=== PATIENT | male | born 1990 | race Caucasian/White ===

== ENCOUNTER 2016-11-14 17:34 | Emergency (ER) | payer OTHER ==
[~2016-11-14] VITALS: Ht 188 cm; Wt 180.0 kg
[~2016-11-14 17:34] MED LIST: DICL50TA PO; ROBA750T PO
[2016-11-14 17:36] VITALS: BP 138/75; PULSE 119; RESP 20; TEMP 98.2; O2SAT 98
[2016-11-14 17:50] VITALS: BP 167/74; PULSE 116; RESP 20; TEMP 99.5; O2SAT 96
[2016-11-14] MEDS ORDERED: IBUP800T23 PO (17:55)
--- NOTE | 2016-11-14 18:11 | PD ---
HPI . Cough Chief Complaint: Respiratory Symptoms Time Seen by Provider: 17:58 Travel History International Travel<30 days: No Contact w/Intl Traveler<30days: No Traveled to known affect area: No History of Present Illness HPI Patient presents with chief complaint of cough. He reports onset of cough 1.5- 2 weeks ago. He states that he is having paroxysmal coughing. The cough is nonproductive. He does, however, report a fever. His cough has not been relieved by Mucinex. He reports no exacerbating factor. He states that he has now developed posttussive emesis. Patient reports that he is a nonsmoker. Patient reports no previous problems with asthma or any other lung disease. PFSH Past Medical History Medical History: Denies Significant Hx Diminished Hearing: No Immunizations Current: Yes Past Surgical History Oral Surgery: Yes (WISDOM TEETH REMOVAL) Social History Alcohol Use: Yes (SOCIAL) Tobacco Use: No Substance Use: No Allergies-Medications (Allergen,Severity, Reaction): Coded Allergies: No Known Allergies (Verified , 11/14/16) Reported Meds & Prescriptions Reported Meds & Active Scripts Active Tussionex Pennkinetic Ext 12 HR Liq (Hydrocodone-Chlorpheniramine 12 HR Liq) 10- 8 Mg/5 Ml Susp 5 Ml PO Q12H PRN Prednisone (48) 10 mg tab Dose Pack (Prednisone) 10 Mg Dspk 10 Mg PO DIRECTED Ventolin Hfa 18 GM Inh (Albuterol Sulfate) 90 Mcg/Act Aer 2 Puff INH Q4H PRN Reported Ibuprofen 800 Mg Tab 800 Mg PO Q8H PRN Review of Systems Except as stated in HPI: all other systems reviewed are Neg General / Constitutional: Positive: Fever, Chills Cardiovascular: Positive: Chest Pain or Discomfort Respiratory: Positive: Cough, Shortness of Breath Gastrointestinal: Positive: Vomiting (posttussive), No: Nausea Physical Exam Narrative GENERAL: Obese man who is able to speak in complete sentences without any respiratory distress. SKIN: Warm and dry. HEAD: Atraumatic. Normocephalic. EYES: Pupils equal and round. Extraocular movements are intact. ENT: No nasal bleeding or discharge. Mucous membranes pink and moist. NECK: Trachea midline. Neck is supple. CARDIOVASCULAR: Regular rate and rhythm. Heart sounds are normal. RESPIRATORY: No accessory muscle use. Lungs sound clear. He does cough with deep inspiration. GASTROINTESTINAL: Abdomen soft, non-tender, nondistended. MUSCULOSKELETAL: No obvious deformities. No edema. NEUROLOGICAL: Awake and alert. No obvious cranial nerve deficits. Motor grossly within normal limits. Normal speech. PSYCHIATRIC: Appropriate mood and affect; insight and judgment normal. Data Data Last Documented VS Vital Signs Date Time Temp Pulse Resp B/P Pulse Ox O2 Delivery O2 Flow Rate FiO2 11/14/16 17:50 99.5 116 20 167/74 96 Room Air Orders Basic Metabolic Panel (Bmp) (11/14/16 18:04) Complete Blood Count With Diff (11/14/16 18:04) Chest, Pa & Lat (11/14/16 18:04) Sodium Chloride 0.9% Flush (Ns Flush) (11/14/16 18:15) Albuterol-Ipratropium Neb (Duoneb Neb) (11/14/16 18:15) Guaifen-Cod 200-20 Mg/10ml Liq (Robituss (11/14/16 18:15) MDM Medical Decision Making Medical Screen Exam Complete: Yes Emergency Medical Condition: Yes Differential Diagnosis Differential diagnosis includes but is not limited to viral respiratory illness , bronchitis, pneumonia, allergies, CHF, asthma/COPD. Narrative Course Patient presents for the evaluation of cough. He is having paroxysmal of coughing. I will treat him for possible bronchospasm with stacked nebs. I have ordered a chest x-ray. I have also ordered Robitussin-AC. Chest x-ray has been independently viewed by me. I do not see an infiltrate. This patient's care is being turned over to Dr. Austin pending his workup. I do anticipate discharge. Diagnosis Primary Impression: Cough Med/Other Pt SpecificInfo: Prescription(s) given Scripts Hydrocodone-Chlorpheniramine 12 HR Liq (Tussionex Pennkinetic Ext 12 HR Liq)10- 8 Mg/5 Ml Susp5 Ml PO Q12H PRN (COUGH AND/OR COLD SYMPTOMS) #60 ML Ref 0 Prov:Ana Barahona MD 11/14/16 Prednisone (48) 10 mg tab Dose Pack 10 Mg Dspk10 Mg PO DIRECTED #1 DSPK Ref 0 Prov:Ana Barahona MD 11/14/16 Albuterol 18 GM Inh (Ventolin Hfa 18 GM Inh)90 Mcg/Act Aer2 Puff INH Q4H PRN ( cough) #1 INHALER Ref 0 Prov:Ana Barahona MD 11/14/16 Condition: Stable Ana Barahona MD Nov 14, 2016 18:10
[2016-11-14] MEDS ORDERED: SODIUM CHLORIDE 0.9% FLUSH 10 ML FLUSH IVF PRN (18:15)
[2016-11-14] MEDS ORDERED: guaiFENesin/CODEINE SYRUP 200 MG/20 MG/10 ML CUP PO PRN (18:15)
[2016-11-14] MEDS ORDERED: TUSSSUS2 PO (18:31)
[2016-11-14] MEDS ORDERED: VENTAER INH (18:31)
[2016-11-14] MEDS ORDERED: PRED10PA2 PO (18:31)
[2016-11-14 18:41] LABS: MEAN CELL VOLUME 87.5 FL (80.0-100.0); MEAN CORPUSCULAR HEMOGLOBIN 30.1 PG (27.0-34.0); MEAN CORPUSCULAR HGB CONC 34.4 % (32.0-36.0); PLATELET COUNT 183 TH/MM3 (150-450); RED BLOOD COUNT 3.54 MIL/MM3 (4.50-5.90); RED CELL DISTRIBUTION WIDTH 21.2 % (11.6-17.2)
--- NOTE | 2016-11-14 18:59 | RADRPT ---
EXAM DATE/TIME: 11/14/2016 18:25 [facility] COMPARISON: No previous studies available for comparison. INDICATIONS : Chest pain, wheezing, fever, coughing, and short of breath. MEDICAL HISTORY : None. SURGICAL HISTORY : None. ENCOUNTER: Initial ACUITY: 1 week PAIN SCORE: 8/10 LOCATION: Bilateral chest FINDINGS: PA and lateral views of the chest demonstrate the lungs to be symmetrically aerated without evidence of mass, infiltrate or effusion. The cardiomediastinal contours are unremarkable. Osseous structure s are intact. CONCLUSION: No acute disease. There is no evidence of pneumonia. Jose Nicholson MD on November 14, 2016 at 18:57 Board Certified Radiologist. This report was verified electronically.
[2016-11-14 19:02] LABS: BICARBONATE 26.5 MEQ/L (21.0-32.0); POTASSIUM 3.6 MEQ/L (3.5-5.1)
[2016-11-14 19:04] LABS: HEMO FLAGS AUTO DIFF
[2016-11-14] MEDS: RESP: ALBUTEROL 2.5 MG/IPRATROPIUM 0.5 MG NEB (SCH) INH (19:07)
--- NOTE | 2016-11-14 19:14 | PD ---
Physical Exam Date Seen by Provider: Nov 14, 2016 Narrative GENERAL: SKIN: Warm and dry. HEAD: Atraumatic. Normocephalic. EYES: Pupils equal and round. No scleral icterus. No injection or drainage. ENT: No nasal bleeding or discharge. Mucous membranes pink and moist. NECK: Trachea midline. No JVD. CARDIOVASCULAR: Regular rate and rhythm. RESPIRATORY: No accessory muscle use. slight natasha scattered wheezes without major restriction of tv, GASTROINTESTINAL: Abdomen soft, non-tender, nondistended. Hepatic and splenic margins not palpable. MUSCULOSKELETAL: Extremities without clubbing, cyanosis, or edema. No obvious deformities. NEUROLOGICAL: Awake and alert. No obvious cranial nerve deficits. Motor grossly within normal limits. Five out of 5 muscle strength in the arms and legs. Normal speech. PSYCHIATRIC: Appropriate mood and affect; insight and judgment normal. Data Data Last Documented VS Vital Signs Date Time Temp Pulse Resp B/P Pulse Ox O2 Delivery O2 Flow Rate FiO2 11/14/16 19:20 107 20 141/72 97 Room Air 11/14/16 17:50 99.5 Orders Basic Metabolic Panel (Bmp) (11/14/16 18:04) Complete Blood Count With Diff (11/14/16 18:04) Chest, Pa & Lat (11/14/16 18:04) Sodium Chloride 0.9% Flush (Ns Flush) (11/14/16 18:15) Albuterol-Ipratropium Neb (Duoneb Neb) (11/14/16 18:15) Guaifen-Cod 200-20 Mg/10ml Liq (Robituss (11/14/16 18:15) Labs Laboratory Tests Test 11/14/16 18:20 White Blood Count 5.0 TH/MM3 Red Blood Count 3.54 MIL/MM3 Hemoglobin 10.7 GM/DL Hematocrit 31.0 % Mean Corpuscular Volume 87.5 FL Mean Corpuscular Hemoglobin 30.1 PG Mean Corpuscular Hemoglobin 34.4 % Concent Red Cell Distribution Width 21.2 % Platelet Count 183 TH/MM3 Mean Platelet Volume 7.3 FL Neutrophils (%) (Auto) % Lymphocytes (%) (Auto) % Monocytes (%) (Auto) % Eosinophils (%) (Auto) % Basophils (%) (Auto) % Neutrophils # (Auto) TH/MM3 Lymphocytes # (Auto) TH/MM3 Monocytes # (Auto) TH/MM3 Eosinophils # (Auto) TH/MM3 Basophils # (Auto) TH/MM3 CBC Comment AUTO DIFF Sodium Level 139 MEQ/L Potassium Level 3.6 MEQ/L Chloride Level 105 MEQ/L Carbon Dioxide Level 26.5 MEQ/L Anion Gap 8 MEQ/L Blood Urea Nitrogen 10 MG/DL Creatinine 1.28 MG/DL Estimat Glomerular Filtration 69 ML/MIN Rate Random Glucose 97 MG/DL Calcium Level 8.7 MG/DL [facility] Medical Record Reviewed: Yes Supervised Visit with FAUZIA: No Differential Diagnosis bronchitis vs pna v bronchospasm Narrative Course PATIENT VSS, PULSE OX NL ON RA, CXR SHOWED NO PTX/PNA, LUNG SOUNDS CLEARED AFTER NEBS, PT IS STABLE FOR D/C Diagnosis Primary Impression: Cough Patient Instructions: Bronchospasm (ED), General Instructions Scripts Hydrocodone-Chlorpheniramine 12 HR Liq (Tussionex Pennkinetic Ext 12 HR Liq)10- 8 Mg/5 Ml Susp5 Ml PO Q12H PRN (COUGH AND/OR COLD SYMPTOMS) #60 ML Ref 0 Prov:Ana Barahona MD 11/14/16 Prednisone (48) 10 mg tab Dose Pack 10 Mg Dspk10 Mg PO DIRECTED #1 DSPK Ref 0 Prov:Ana Barahona MD 11/14/16 Albuterol 18 GM Inh (Ventolin Hfa 18 GM Inh)90 Mcg/Act Aer2 Puff INH Q4H PRN ( cough) #1 INHALER Ref 0 Prov:Ana Barahona MD 11/14/16 Disposition: 01 DISCHARGE HOME Condition: Stable Sharad Austin MD Nov 14, 2016 19:14
[2016-11-14 19:20] VITALS: BP 141/72; PULSE 107; RESP 20; O2SAT 97
[2016-11-14 19:49] LABS: BLASTS 9 % (0-0); POLYS (SEG NEUTROPHILS) 5 % (16-70); WBC DIFF SAMPLE 100
[2016-11-14 19:51] LABS: PLATELET ESTIMATE SMEAR NORMAL (NORMAL); PLATELET MORPHOLOGY NORMAL (NORMAL); SCAN/DIFF FINAL DIFF MANUAL
[2016-11-14 19:55] LABS: NEUTROPHIL # MANUAL DIFF 0.3 TH/MM3 (1.8-7.7)
== END 2016-11-14 20:21 | disposition home or self-care (01) ==
LOC: NEPC 17:34
DX: R05 Cough (principal)
CPT/HCPCS: 71020; 80048; 85007; 85027; 94640; 94664; 99284

== ENCOUNTER 2016-12-25 19:27 | Inpatient (IN) | payer OTHER ==
[~2016-12-25] VITALS: Ht 188 cm; Wt 153.0 kg
[~2016-12-25 19:27] MED LIST changes: -DICL50TA PO; +IBUP800T23 PO; +PRED10PA2 PO; -ROBA750T PO; +TUSSSUS2 PO; +VENTAER INH
[2016-12-25 19:31] VITALS: BP_SYST 148; BP_SYST 149; BP_DIAS 65; BP_DIAS 85; PULSE 114; PULSE 121; RESP 22; RESP 36; TEMP 101.7; O2SAT 94; O2SAT 95
[2016-12-25] MEDS ORDERED: SODIUM CHLOR 0.9% 1000 ML INJ 1,000 ML IV ONE ×3 (19:41)
[2016-12-25] MEDS ORDERED: SODIUM CHLOR 0.9% 1000 ML INJ 900 ML IV ONE (19:41)
[2016-12-25] MEDS ORDERED: PROCHLORPERAZINE INJ 10 MG/2 ML VIAL IV PUSH ONE (19:45)
[2016-12-25] MEDS ORDERED: ACETAMINOPHEN 325 MG TAB PO ONE (19:45)
[2016-12-25] MEDS ORDERED: diphenhydrAMINE HCL 50 MG/ML VIAL IV PUSH ONE (19:45)
[2016-12-25 19:51] VITALS: RESP 19; O2SAT 97
[2016-12-25 20:13] LABS: HEMATOCRIT 26.9 % (39.0-51.0); MEAN CELL VOLUME 100.1 FL (80.0-100.0); MEAN CORPUSCULAR HEMOGLOBIN 33.7 PG (27.0-34.0); MEAN CORPUSCULAR HGB CONC 33.7 % (32.0-36.0); PLATELET COUNT 77 TH/MM3 (150-450); RED BLOOD COUNT 2.69 MIL/MM3 (4.50-5.90); RED CELL DISTRIBUTION WIDTH 21.7 % (11.6-17.2)
--- NOTE | 2016-12-25 20:14 | RADRPT ---
EXAM DATE/TIME: 12/25/2016 19:50 [facility] COMPARISON: No previous studies available for comparison. INDICATIONS : Right sided headaches with confusion. RADIATION DOSE: 56.35 CTDIvol (mGy) MEDICAL HISTORY : None SURGICAL HISTORY : None. ENCOUNTER: Initial ACUITY: 1 day PAIN SCALE: 10/10 LOCATION: Right cranial TECHNIQUE: Multiple contiguous axial images were obtained of the head. Using automated exposure control and adj ustment of the mA and/or kV according to patient size, radiation dose was kept as low as reasonably a chievable to obtain optimal diagnostic quality images. DICOM format image data is available electro nically for review and comparison. FINDINGS: CEREBRUM: The ventricles are normal for age. No evidence of midline shift, mass lesion, hemorrhage or acute in farction. No extra-axial fluid collections are seen. POSTERIOR FOSSA: The cerebellum and brainstem are intact. The 4th ventricle is midline. The cerebellopontine angle i s unremarkable. EXTRACRANIAL: Mucous retention cysts are seen of the maxillary air cells. SKULL: The calvaria is intact. No evidence of skull fracture. CONCLUSION: Negative noncontrast head CT. Audie Maria MD on December 25, 2016 at 20:09 Board Certified Radiologist. This report was verified electronically.
--- NOTE | 2016-12-25 20:21 | RADRPT ---
EXAM DATE/TIME: 12/25/2016 20:02 [facility] COMPARISON: CHEST PA & LAT, November 14, 2016, 18:25. INDICATIONS : Patient admitted with altered mental status. Patient complains of confusion today. MEDICAL HISTORY : None. SURGICAL HISTORY : None. ENCOUNTER: Initial ACUITY: 1 day PAIN SCORE: 0/10 LOCATION: chest FINDINGS: A single view of the chest demonstrates the lungs to be symmetrically aerated without evidence of mas s, infiltrate or effusion. The cardiomediastinal contours are unremarkable. Osseous structures are intact. CONCLUSION: No evidence of acute cardiopulmonary disease. Audie Maria MD on December 25, 2016 at 20:20 Board Certified Radiologist. This report was verified electronically.
[2016-12-25 20:23] LABS: HEMO FLAGS AUTO DIFF
--- NOTE | 2016-12-25 20:23 | PD ---
HPI . Headache Chief Complaint: Altered Mental Status Time Seen by Provider: 19:35 Travel History International Travel<30 days: No Contact w/Intl Traveler<30days: No Traveled to known affect area: No History of Present Illness HPI Patient presents with a chief complaint of headache. Onset was earlier today sometime in the morning time. He describes a throbbing, right-sided headache which is associated with some nausea and vomiting. Headache has been unrelieved by Tylenol. Headache is exacerbated by lying down. Pain is rated 10 /10. The patient did not know that he was running a fever. He reports no obvious source for the fever. PFSH Past Medical History Medical History: Denies Significant Hx Diminished Hearing: No Immunizations Current: Yes Tetanus Vaccination: < 5 Years Influenza Vaccination: Yes Past Surgical History Oral Surgery: Yes (WISDOM TEETH REMOVAL) Social History Alcohol Use: Yes (SOCIAL) Tobacco Use: No Substance Use: No Allergies-Medications (Allergen,Severity, Reaction): Coded Allergies: No Known Allergies (Verified , 12/25/16) Reported Meds & Prescriptions Reported Meds & Active Scripts Active Tussionex Pennkinetic Ext 12 HR Liq (Hydrocodone-Chlorpheniramine 12 HR Liq) 10- 8 Mg/5 Ml Susp 5 Ml PO Q12H PRN Prednisone (48) 10 mg tab Dose Pack (Prednisone) 10 Mg Dspk 10 Mg PO DIRECTED Ventolin Hfa 18 GM Inh (Albuterol Sulfate) 90 Mcg/Act Aer 2 Puff INH Q4H PRN Reported Ibuprofen 800 Mg Tab 800 Mg PO Q8H PRN Review of Systems Except as stated in HPI: all other systems reviewed are Neg General / Constitutional: No: Fever, Chills Eyes: No: Blurred Vision HENT: Positive: Headaches, No: Sore Throat, Rhinorrhea, Congestion Respiratory: No: Cough Gastrointestinal: Positive: Nausea, Vomiting, No: Diarrhea, Abdominal Pain Genitourinary: No: Urgency, Frequency, Dysuria Musculoskeletal: Positive: Weakness Neurologic: Positive: Weakness, Headache, Change in Mentation, No: Focal Abnormalities, Incontinence, Seizures Physical Exam Narrative Vital Signs Date Time Temp Pulse Resp B/P Pulse Ox O2 Delivery O2 Flow Rate FiO2 12/25/16 19:51 19 97 Room Air 12/25/16 19:31 101.7 121 36 149/85 94 GENERAL: This patient is sitting on the edge of the bed. He is markedly obese weighing 175 kg. He is pale, febrile and tachycardic. SKIN: Warm and pale HEAD: Atraumatic. Normocephalic. EYES: Pupils equal and round. Extraocular movements are intact. ENT: No nasal bleeding or discharge. Mucous membranes pink and moist. NECK: Trachea midline. Neck is supple. CARDIOVASCULAR: Sinus tachycardia. Regular rhythm. No murmurs heard. RESPIRATORY: No accessory muscle use. Lungs are clear with full air movement throughout. GASTROINTESTINAL: Abdomen soft, non-tender, nondistended. MUSCULOSKELETAL: No obvious deformities. No edema. NEUROLOGICAL: Awake and alert. No obvious cranial nerve deficits. 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 Normal speech. PSYCHIATRIC: Anxious appearing. Data Data Last Documented VS Vital Signs Date Time Temp Pulse Resp B/P Pulse Ox O2 Delivery O2 Flow Rate FiO2 12/25/16 20:30 106 20 139/63 97 Room Air 12/25/16 19:31 101.7 Orders Complete Blood Count With Diff (12/25/16 19:41) Comprehensive Metabolic Panel (12/25/16 19:41) Lactic Acid Sepsis Protocol (12/25/16 19:41) Magnesium (Mg) (12/25/16 19:41) Urinalysis - C+S If Indicated (12/25/16 19:41) Influenzae A/B Antigen (12/25/16 19:41) Blood Culture (12/25/16 19:41) Chest, Single Ap (12/25/16 19:41) Blood Glucose (12/25/16 19:41) Ecg Monitoring (12/25/16 19:41) Iv Access Insert/Monitor (12/25/16 19:41) Cath For Specimen (12/25/16 19:41) Oximetry (12/25/16 19:41) Acetaminophen (Tylenol) (12/25/16 19:45) Ct Brain W/O Iv Contrast(Rout) (12/25/16 19:41) Sodium Chlor 0.9% 1000 Ml Inj (Ns 1000 M (12/25/16 19:41) Sodium Chlor 0.9% 1000 Ml Inj (Ns 1000 M (12/25/16 19:41) Sodium Chlor 0.9% 1000 Ml Inj (Ns 1000 M (12/25/16 19:41) Sodium Chlor 0.9% 1000 Ml Inj (Ns 1000 M (12/25/16 19:41) Prochlorperazine Inj (Compazine Inj) (12/25/16 19:45) Diphenhydramine Inj (Benadryl Inj) (12/25/16 19:45) Cefepime Inj (Maxipime Inj) (12/25/16 21:13) Admit Order (Ed Use Only) (12/25/16 21:40) Labs Laboratory Tests Test 12/25/16 19:47 White Blood Count 10.0 TH/MM3 Red Blood Count 2.69 MIL/MM3 Hemoglobin 9.1 GM/DL Hematocrit 26.9 % Mean Corpuscular Volume 100.1 FL Mean Corpuscular Hemoglobin 33.7 PG Mean Corpuscular Hemoglobin 33.7 % Concent Red Cell Distribution Width 21.7 % Platelet Count 77 TH/MM3 Mean Platelet Volume 7.0 FL Neutrophils (%) (Auto) % Lymphocytes (%) (Auto) % Monocytes (%) (Auto) % Eosinophils (%) (Auto) % Basophils (%) (Auto) % Neutrophils # (Auto) TH/MM3 Lymphocytes # (Auto) TH/MM3 Monocytes # (Auto) TH/MM3 Eosinophils # (Auto) TH/MM3 Basophils # (Auto) TH/MM3 CBC Comment AUTO DIFF Differential Total Cells 100 Counted Neutrophils % (Manual) 3 % Band Neutrophils % 1 % Lymphocytes % 48 % Monocytes % 28 % Neutrophils # (Manual) 0.4 TH/MM3 Differential Comment FINAL DIFF MANUAL Blastocytes 20 % Platelet Estimate LOW Platelet Morphology Comment NORMAL Sodium Level 136 MEQ/L Potassium Level 3.5 MEQ/L Chloride Level 103 MEQ/L Carbon Dioxide Level 23.6 MEQ/L Anion Gap 9 MEQ/L Blood Urea Nitrogen 11 MG/DL Creatinine 1.40 MG/DL Estimat Glomerular Filtration 62 ML/MIN Rate Random Glucose 89 MG/DL Lactic Acid Level 1.9 mmol/L Calcium Level 7.9 MG/DL Magnesium Level 2.0 MG/DL Total Bilirubin 1.1 MG/DL Aspartate Amino Transf 14 U/L (AST/SGOT) Alanine Aminotransferase 17 U/L (ALT/SGPT) Alkaline Phosphatase 46 U/L Total Protein 8.4 GM/DL Albumin 3.5 GM/DL [facility] Medical Decision Making Medical Screen Exam Complete: Yes Emergency Medical Condition: Yes Medical Record Reviewed: Yes (patient was last seen here about 6 weeks ago for a cough. He was treated with a steroid taper, albuterol inhaler and Tussionex. He has no chronic underlying medical problems except for obesity.) Differential Diagnosis Differential diagnosis of fever includes but is not limited to viral illness, strep throat, otitis media, pneumonia, sepsis, UTI Narrative Course This patient presents with headache and fever. Onset was this morning. He does not have any meningeal signs. Because of his size, he would be an impossible candidate for blind LP. His spinous processes are not palpable. A septic workup has been initiated. His fever is being treated with Tylenol. His headache is being treated with Compazine and Benadryl. He will be reassessed following diagnostic evaluation. CBC & BMP Diagram 12/25/16 19:47 Previous HGB on 11/14 was 10.7. White count on 11/14 was 5.0 with 0.5% neutrophils , 73% lymphocytes, 13% monocytes and 9 blasts cells. Differential tonight shows 3% neutrophils with an ANC of 400, 48% lymphocytes, 28% monocytes and 20 blasts. UpToDate was queried to confirm my suspicion that blasts are indicative of a white blood cell cancer. This patient will need to be admitted to the hospital for further evaluation. Cefepime has been ordered empirically for treatment of sepsis in a neutropenic patient. Critical Care Narrative Aggregate critical care time was 60 minutes. Time to perform other separately billable procedures was not included in the critical care time. My time did not include minutes spent treating any other patients simultaneously or on activities that did not directly contribute to the patient's treatment. The services I provided to this patient were to treat and/or prevent clinically significant deterioration due to headache and fever, rule out sepsis, rule out meningitis. I provided critical care services requiring my management, as noted below: Chart data review, documentation time, medication orders and management, vital sign assessments/reviewing monitor data, ordering and reviewing lab tests, ordering and interpreting/reviewing x-rays and diagnostic studies, care of the patient and discussion of the patient with the admitting physicians Sepsis Criteria SIRS Criteria (2 or more): Temp > 100.9 or < 96.8, Heart rate over 90, RR > 20 or PaCO2 < 32 Criteria Outcome: Meets SIRS criteria Physician Communication Physician Communication Dr. Field. Heme/onc paged for recommendations. Dr. Santoyo asked for DIC panel, haptoglobin and LDH. He will see in consultation. Diagnosis Primary Impression: SIRS (systemic inflammatory response syndrome) Additional Impressions: Lymphocytosis Neutropenia Qualified Code: D70.9 - Neutropenia, unspecified type Thrombocytopenia Admitting Information Admitting Physician Requests: Admit Condition: Ana Larios MD Dec 25, 2016 20:23
[2016-12-25 20:25] LABS: ANION GAP 9 MEQ/L (5-15); AST (GOT) 14 U/L (15-37); BICARBONATE 23.6 MEQ/L (21.0-32.0); BLOOD UREA NITROGEN 11 MG/DL (7-18); CHLORIDE 103 MEQ/L (98-107); GLOMERULAR FILTRATION RATE 62 ML/MIN (>89); POTASSIUM 3.5 MEQ/L (3.5-5.1); SODIUM (NA) 136 MEQ/L (136-145)
[2016-12-25 20:26] LABS: ALT (GPT) 17 U/L (12-78)
[2016-12-25 20:28] LABS: ALKALINE PHOSPHATASE 46 U/L (45-117); TOTAL BILIRUBIN ADULT 1.1 MG/DL (0.2-1.0)
[2016-12-25 20:30] VITALS: BP 139/63; PULSE 106; RESP 20; O2SAT 97
[2016-12-25 21:00] LABS: BANDS 1 % (0-6); BLASTS 20 % (0-0); POLYS (SEG NEUTROPHILS) 3 % (16-70); WBC DIFF SAMPLE 100
[2016-12-25 21:02] LABS: NEUTROPHIL # MANUAL DIFF 0.4 TH/MM3 (1.8-7.7)
[2016-12-25 21:07] LABS: PLATELET ESTIMATE SMEAR LOW (NORMAL); PLATELET MORPHOLOGY NORMAL (NORMAL); SCAN/DIFF FINAL DIFF MANUAL
[2016-12-25] MEDS ORDERED: CEFEPIME INJ 2,000 MG in SODIUM CHLORIDE 0.9% INJ 100 ML IV STA (21:13)
[2016-12-25 22:01] LABS: BLOOD, URINE NEG (NEG); GLUCOSE,URINE NEG (NEG); KETONE, URINE NEG (NEG); NITRITE,URINE NEG (NEG); PH, URINE 6.5 (5.0-8.5); URINE COLOR LIGHT-YELLOW (YELLW/STRAW)
[2016-12-25 22:06] LABS: COMMENT (UR) CATH-CULT NOT IND; CULTURE IF INDICATED CATH CULTURE NOT IND
[2016-12-25 22:43] VITALS: BP 119/54; PULSE 94; RESP 18; TEMP 99.3; O2SAT 98
[2016-12-25] MEDS: SODIUM CHLOR 0.9% 1000 ML INJ 1,000 ML IV SCH (23:00)
[2016-12-25] MEDS ORDERED: LACTULOSE SYRUP 20 GM/30 ML CUP PO PRN (23:00)
[2016-12-25] MEDS ORDERED: SENNOSIDES 8.6 MG TAB PO PRN (23:00)
[2016-12-25] MEDS ORDERED: SODIUM CHLORIDE 0.9% FLUSH 10 ML FLUSH IV FLUSH PRN (23:00)
[2016-12-25] MEDS ORDERED: MAGNESIUM HYDROXIDE SUSP 30 ML CUP PO PRN (23:00)
[2016-12-25] MEDS ORDERED: BISACODYL 10 MG SUPP RECTAL PRN (23:00)
[2016-12-25] MEDS ORDERED: Vancomycin Consult Pharmacy 1 EA OTHER SCH (23:00)
--- NOTE | 2016-12-25 23:04 | HHI.HP ---
[facility] No Primary Care Physician Admission Diagnosis lymphocytosis, neutropenia, thrombocytopenia, fever Diagnoses: (1) SIRS (systemic inflammatory response syndrome) Diagnosis: Principal (2) GABRIELA (acute kidney injury) Diagnosis: Principal (3) Thrombocytopenia Diagnosis: Principal (4) Lymphocytosis Diagnosis: Principal (5) Anemia Diagnosis: Principal Travel History International Travel<30 Days: No Contact w/Intl Traveler <30 Da: No Traveled to Known Affected Are: No History of Present Illness This is a 26-year-old male with no significant PMH was brought to the ER secondary to episode of AMS. Upon arrival, patient unable to provide any history secondary to confusion, however at the time of my exam, patient is awake , alert and oriented. 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 Shortly afterwards, Theater Education Teacher noted patient to be very confused, not making sense. On arrival, BP 149/85, HR 121, O2 sat 94% on RA, Temp 101.7. WBC 10. Hemoglobin 9.1. Platelets 77. Lymphocytes 48%. Creatinine 1.40, producing 1.28 on 11/14/16. Lactic Acid 1.9. UA negative. CXR with no acute findings. CT Head negative. Patient denies any recent sick contacts, although does report having productive cough for approximately 1 month. Review of Systems Except as stated in HPI: all other systems reviewed are Neg ROS: 14 point review of systems otherwise negative. Past Family Social History Past Medical History PMH: None Past Surgical History PAST SURGICAL HISTORY: [place] Tooth Extraction Allergies: Coded Allergies: No Known Allergies (Verified , 12/25/16) Family History PAST FAMILY HISTORY: Reviewed. No h/o DM or CAD Social History PAST SOCIAL HISTORY: Occasional alcohol. Negative for tobacco or drugs. Physical Exam Vital Signs Vital Signs Date Time Temp Pulse Resp B/P Pulse Ox O2 Delivery O2 Flow Rate FiO2 12/25/16 22:43 94 18 119/54 98 Room Air 12/25/16 20:30 106 20 139/63 97 Room Air 12/25/16 19:51 19 97 Room Air 12/25/16 19:31 101.7 121 36 149/85 94 12/25/16 19:31 101.7 114 22 148/65 95 Room Air Physical Exam PE: GENERAL: Young morbidly obese white male in no acute distress, intermittent cough. HEENT: PERRLA, EOMI. No scleral icterus or conjunctival pallor. No lid lag or facial droop. CARDIOVASCULAR: Regular rate and rhythm. No obvious murmurs to auscultation. No chest tenderness to palpation. RESPIRATORY: No obvious rhonchi or wheezing. Clear to auscultation. Breath sounds equal bilaterally. GASTROINTESTINAL: Abdomen soft, non-tender, nondistended. BS normal. MUSCULOSKELETAL: Extremities without clubbing, cyanosis, or edema. No obvious deformities. NEUROLOGICAL: Awake, alert and oriented x4. No focal neurologic deficits. Moving both upper and lower extremities spontaneously. Laboratory Laboratory Tests Test 12/25/16 12/25/16 19:47 21:45 White Blood Count 10.0 Red Blood Count 2.69 Hemoglobin 9.1 Hematocrit 26.9 Mean Corpuscular Volume 100.1 Mean Corpuscular Hemoglobin 33.7 Mean Corpuscular Hemoglobin 33.7 Concent Red Cell Distribution Width 21.7 Platelet Count 77 Mean Platelet Volume 7.0 Neutrophils (%) (Auto) Lymphocytes (%) (Auto) Monocytes (%) (Auto) Eosinophils (%) (Auto) Basophils (%) (Auto) Neutrophils # (Auto) Lymphocytes # (Auto) Monocytes # (Auto) Eosinophils # (Auto) Basophils # (Auto) CBC Comment AUTO DIFF Differential Total Cells 100 Counted Neutrophils % (Manual) 3 Band Neutrophils % 1 Lymphocytes % 48 Monocytes % 28 Neutrophils # (Manual) 0.4 Differential Comment FINAL DIFF MANUAL Blastocytes 20 Platelet Estimate LOW Platelet Morphology Comment NORMAL Sodium Level 136 Potassium Level 3.5 Chloride Level 103 Carbon Dioxide Level 23.6 Anion Gap 9 Blood Urea Nitrogen 11 Creatinine 1.40 Estimat Glomerular Filtration 62 Rate Random Glucose 89 Lactic Acid Level 1.9 Calcium Level 7.9 Magnesium Level 2.0 Total Bilirubin 1.1 Aspartate Amino Transf 14 (AST/SGOT) Alanine Aminotransferase 17 (ALT/SGPT) Alkaline Phosphatase 46 Total Protein 8.4 Albumin 3.5 Urine Color LIGHT-YELLOW Urine Turbidity CLEAR Urine pH 6.5 Urine Specific [place] 1.006 Urine Protein TRACE Urine Glucose (UA) NEG Urine Ketones NEG Urine Occult Blood NEG Urine Nitrite NEG Urine Bilirubin NEG Urine Urobilinogen LESS THAN 2.0 Urine Leukocyte Esterase NEG Urine RBC LESS THAN 1 Urine WBC 1 Microscopic Urinalysis Comment CATH-CULT NOT IND Date/Time Procedure Status Source Growth 12/25/16 19:56 Aerobic Blood Culture Received Blood Peripheral Pending 12/25/16 19:56 Anaerobic Blood Culture Received Blood Peripheral Pending Result Diagram: 12/25/16194612/25/161946 Assessment and Plan Problem List: (1) SIRS (systemic inflammatory response syndrome) ICD Code: R65.10 Status: Acute (2) GABRIELA (acute kidney injury) ICD Code: N17.9 Status: Acute (3) Thrombocytopenia ICD Code: D69.6 Status: Acute (4) Lymphocytosis ICD Code: D72.820 Status: Acute (5) Anemia ICD Code: D64.9 Status: Acute Assessment and Plan A/P: 1. SIRS: Temp 101.7, HR 121, WBC normal, Lactic Acid normal. Source-unclear. Reports non-productive cough fro approx 1mo, denies fever/chills. Episode of transient AMS upon arrival, currently resolved. S/p Blood Cultures, IV Cefepime. Follow up cultures, continue w/ IV Abx. Concern for TTP in light of AMS, GABRIELA, fever, thrombocytopenia/anemia-Hematology consulted 2. GABRIELA: Creatinine 1.40, previously 1.28 on 11/14/16, U/a negative, IVF for hydration, repeat labs in am. 3. Thrombocytopenia: Platelets 77, previously 183 on 11/14/16, no active bleeding, denies recent travel, viral infection, ?ITP/TTP. Hematology consulted as above. 4. Anemia: Hgb 9.1, previously 10.7 on 11/14/16, 13.6 on 10/29/15. Will monitor. 5. Lymphocytosis: 48% lymphocytes on differential, previously 73% on 11/14/16. Hematology to eval, likely need further testing w/ BM Biopsy. Pt aware of plan. 6. DVT Prophylaxis: SCD/Teds. 7. Social work for d/c planning as needed. 8. Case discussed w/ ER physician at length. Physician Certification 2 Midnight Certification Type: Admission for Inpatient Services Order for Inpatient Services The services are ordered in accordance with Medicare regulations or non- Medicare payer requirements, as applicable. In the case of services not specified as inpatient-only, they are appropriately provided as inpatient services in accordance with the 2-midnight benchmark. Estimated LOS (days): 2 days is the estimated time the patient will need to remain in the hospital, assuming treatment plan goals are met and no additional complications. Post-Hospital Plan: Not yet determined Roseanne Field MD Dec 25, 2016 23:04
[2016-12-25 23:12] LABS: APTT (PATIENT) 27.1 SEC (24.3-30.1); INTERNATIONAL NORMALIZED RATIO 1.1 RATIO
[2016-12-26] VITALS (11 sets, daily range): BP systolic 116–158; BP diastolic 47–79; PULSE 92–115; RESP 18–24; TEMP 96.9–101.2; O2SAT 90–97
[2016-12-26] MEDS ORDERED: VANCOMYCIN INJ 2,500 MG in SODIUM CHLORID 0.9% 500 ML INJ 500 ML IV SCH (01:00)
[2016-12-26] MEDS: ACETAMINOPHEN/HYDROcodone 325 MG/5 MG TAB PO PRN ×2 (01:49→21:22)
[2016-12-26] MEDS: guaiFENesin/DEXTROMETHORPHAN 200 MG/20 MG/10 ML CUP PO PRN ×4 (01:52→18:19)
[2016-12-26] MEDS: BENZONATATE 100 MG CAP PO PRN ×2 (05:34→15:12)
[2016-12-26] MEDS: MORPHINE SULFATE 4 MG/ML INJ IV PRN (06:11)
[2016-12-26] MEDS: ONDANSETRON HCL 4 MG/2 ML VIAL IVP PRN (07:12)
[2016-12-26] MEDS: DOCUSATE SODIUM 50 MG/SENNA 8.6 MG TAB PO SCH ×2 (09:00→20:16)
[2016-12-26] MEDS: SODIUM CHLORIDE 0.9% FLUSH 10 ML FLUSH IV FLUSH SCH ×2 (09:00→20:16)
[2016-12-26] MEDS: ACETAMINOPHEN 325 MG TAB PO PRN (09:18)
[2016-12-26] MEDS: CEFEPIME INJ 1,000 MG in SODIUM CHLORIDE 0.9% INJ 100 ML IV SCH ×2 (09:18→20:16)
[2016-12-26] MEDS: VANCOMYCIN INJ 2,000 MG in SODIUM CHLORID 0.9% 500 ML INJ 500 ML IV SCH (13:22)
--- NOTE | 2016-12-26 15:44 | MB ---
cc: NOHELIA CHARLES DATE OF CONSULTATION 12/26/16 DATE OF 1990 REASON FOR CONSULTATION Patient presents with altered mental status and severe neutropenia. HISTORY OF PRESENT ILLNESS This is a 26-year-old male who has no significant past medical history who was brought to the emergency department after episodes of confusion. In the emergency room basic labs were obtained and the patient was found to have a white blood cell count of 10, hemoglobin of 9.1 with MCV of 100.1 and a platelet count of 77,000. He was severely neutropenic with an ANC of less than 500, on the differential 20% blast cells were reported in the peripheral blood. Serum chemistries showed acute renal failure with a creatinine of 1.4. His lactic acid was 1.9. His total bilirubin was slightly elevated at 1.1. The patient was admitted to the hospital due to concern for underlying leukemia. The patient had a fever of 101.1, blood cultures were drawn and the patient was started on IV vancomycin and cefepime. REVIEW OF SYSTEMS A comprehensive 14-point review of systems was completed which is negative except as described in the HPI. PAST MEDICAL HISTORY None. PAST SURGICAL HISTORY Tooth extraction. MEDICATIONS ON ADMISSION None. ALLERGIES NO KNOWN DRUG ALLERGIES. FAMILY HISTORY No family history of leukemia or lymphomas or any blood disorders. SOCIAL HISTORY Occasionally drinks alcohol. Does not smoke cigarettes. No drug use. PHYSICAL EXAMINATION VITAL SIGNS: Blood pressure is 129/76, pulse is in the 100s, temperature is 101.2, O2 sats are 93% on 1 liter of nasal cannula. GENERAL: Obese young male in no apparent distress. HEENT: Pupils are equal, round, reactive to light. EOMI. No oral thrush. No oral lesions. NECK: Supple. No JVD, no bruits. No lymphadenopathy. CHEST: Clear to auscultation bilaterally. CARDIAC: S1-S2 regular rate and rhythm. ABDOMEN: Soft, nontender, nondistended. Bowel sounds are present. EXTREMITIES: Without any edema, erythema or cyanosis. SKIN: Without any petechiae, lesion or bruises. NEURO: No focal deficits. PSYCHIATRIC: Mood and affect is appropriate. LABORATORY DATA WBC 10, hemoglobin is 9.1, MCV 100.1, platelet count is 77,000. Differential reported neutrophil percentage of 3 with an ___ of 400. There were 20 blast cells in the peripheral blood. Serum chemistries, sodium 136, potassium 3.5, chloride 103, CO2 22.6, BUN 11, creatinine 1.4, GFR 62, lactic acid 1.9, calcium 7.9, magnesium 2, total bilirubin 1.1, AST 14, ALT 17, alk phos 46, LDH 252, total protein 8.4, albumin 85. Coags show PT of 12, INR 1.1, PTT 27.1, fibrinogen 405. IMAGING STUDIES Chest x-ray was reviewed did not show any evidence of acute cardiopulmonary disease. CT of head was also reviewed. This is a noncontrast CT without any abnormalities. ASSESSMENT/PLAN This is a 26-year-old male with no significant past medical history who presents to the emergency department with episodes of confusion and was found to be severely neutropenic with blast cells that were reported on differential. He has been having fever. 1. Febrile neutropenia with blast cells in circulation. This is suspicious for underlying bone marrow disorder such as leukemia. I will review his peripheral smear. I agree with broad-spectrum antibiotics. Blood cultures are pending. This patient will need a bone marrow biopsy, FISH studies, flow cytometry and cytogenetics will be obtained. If this is proven to be leukemia this patient will require induction chemotherapy. 2. Acute thrombocytopenia, possibly related to underlying leukemia, lymphoma or MDS. Check a DIC panel. Check LDH and haptoglobin. Check a direct Chong test. 3. Anemia, obtain anemia studies. Obtain a stool hemoccult. Additionally, will obtain hepatitis and HIV profile. 4. Acute kidney injury likely prerenal, continue IV hydration. Thank you for allowing me to participate in the care of this patient. Further recommendations will be made after initial blood testing and review of the peripheral smear. MD MAJOR Muñiz/KEVIN /2:48 PM /3:25 PM
--- NOTE | 2016-12-26 15:48 | HHI.PR ---
Subjective Remarks Patient says his cough has been very dry, has worsened since onset prior to admission, has posttussive emesis but otherwise has no nausea in between coughing spells. Also reports that his headache has been persistent but somewhat better since admission. Nursing reports that he did not have any further altered mental status episodes since arriving to the floor, did have another fever spike despite broad-spectrum antibiotics. Objective Vital Signs Date Time Temp Pulse Resp B/P Pulse Ox O2 Delivery O2 Flow Rate FiO2 12/26/16 12:00 98.3 105 20 158/79 93 12/26/16 08:30 93 Nasal Cannula 1.00 12/26/16 08:30 93 12/26/16 08:00 101.2 107 20 129/76 90 12/26/16 07:01 20 12/26/16 04:00 98.2 110 22 116/59 97 12/26/16 03:45 19 12/26/16 00:40 94 12/26/16 00:00 96.9 97 23 133/66 96 12/25/16 22:43 99.3 94 18 119/54 98 Room Air 12/25/16 20:30 106 20 139/63 97 Room Air 12/25/16 19:51 19 97 Room Air 12/25/16 19:31 101.7 121 36 149/85 94 12/25/16 19:31 101.7 114 22 148/65 95 Room Air I/O 12/25/16 12/25/16 12/25/16 12/26/16 12/26/16 12/26/16 06:59 14:59 22:59 06:59 14:59 22:59 Intake Total 805 ml 1463 ml Output Total 600 ml 650 ml Balance 205 ml 813 ml Intake Oral 240 ml 720 ml IV Total 565 ml 743 ml Output Urine Total 600 ml 650 ml # Voids 3 # Bowel Movements 0 Result Diagram: 12/25/16194612/25/161946 Imaging Last [address] 12/25/161940 Signed Impressions: Service Date/Time: Sunday, December 25, 2016 19:50 - CONCLUSION: Negative noncontrast head CT. Audie Maria MD Chest X-Ray 12/25/161940 Signed Impressions: Service Date/Time: Sunday, December 25, 2016 20:02 - CONCLUSION: No evidence of acute cardiopulmonary disease. Audie Maria MD Objective Remarks GENERAL: coughing, resting btw coughing. CARDIOVASCULAR: Regular rate and rhythm without murmurs, gallops, or rubs. RESPIRATORY: Breath sounds equal and clear bilaterally. Unlabored breathing GASTROINTESTINAL: Abdomen soft, non-tender, nondistended. MUSCULOSKELETAL: No cyanosis, or edema. A/P Assessment and Plan 1. Neutropenic fever: Blood culture still pending, continuing broad-spectrum antibiotics with vancomycin and cefepime. Given persistent coughing and persistent headache, we'll obtain CT chest with contrast along with lumbar puncture with infectious lab csf workup. IVFs. 2. Pancytopenia - Hematology working up, appreciate recs. 2. GABRIELA: IVF, repeat labs 3. Thrombocytopenia: Platelets 77, previously 183 on 11/14/16, no active bleeding, denies recent travel, viral infection, ?ITP/TTP. Hematology consulted as above. repeat pending 4. Anemia: Hgb 9.1, repeat pending 5. Lymphocytosis: 48% lymphocytes on differential, previously 73% on 11/14/16. repeat workup pending. Hematology to eval, likely need further testing w/ BM Biopsy. Pt aware of plan. 6. DVT Prophylaxis: SCD/Teds. Ean Bañuelos MD Dec 26, 2016 15:48
[2016-12-26] MEDS ORDERED: SODIUM BICARBONATE 8.4% INJ 50 ML ONE (16:54)
--- NOTE | 2016-12-26 17:24 | PD.RAD ---
Post Procedure Progress Note Pre Procedure Diagnosis: (1) Thrombocytopenia (2) Neutropenia (3) Sepsis Post Procedure Diagnosis: (1) Thrombocytopenia (2) Neutropenia (3) Sepsis Procedure Date: Dec 26, 2016 Supervising Radiologist: Nilson Bonner Estimated blood loss: None Anesthesia: Local Plan of Activity Patient to Unit: Nursing Unit Patient Condition: Fair Additional Comments: LP completed single puncture at L3/L4. Opening pressure 12cm/h2o 16cc of clear CSF removed. Samples sent to lab See PACS Report for procedural detail/treatment Nilson Bonner MD Dec 26, 2016 17:24
[2016-12-26] MEDS ORDERED: IOHEXOL 350 MG/ML 10 ML VIAL (for RAD DIAG) IV ONE (17:47)
--- NOTE | 2016-12-26 18:16 | RADRPT ---
EXAM DATE/TIME: 12/26/2016 17:45 [place] COMPARISON: No previous studies available for comparison. INDICATIONS : Persistent cough IV CONTRAST: 71 cc Omnipaque 350 (iohexol) IV RADIATION DOSE: 16.49 CTDIvol (mGy) MEDICAL HISTORY : None SURGICAL HISTORY : None. ENCOUNTER: Initial ACUITY: 1 day PAIN SCALE: 0/10 LOCATION: chest TECHNIQUE: Volumetric scanning of the chest was performed. Using automated exposure control and adjustment of t he mA and/or kV according to patient size, radiation dose was kept as low as reasonably achievable to obtain optimal diagnostic quality images. DICOM format image data is available electronically for review and comparison. Follow-up recommendations for detected pulmonary nodules are based at a minimum on nodule size and pa tient risk factors according to Fleischner Society Guidelines. FINDINGS: Fluffy air space process is present in both lower lobes characteristic of pneumonia. There is no pleural effusion. There are small lymph nodes within the mediastinum benign in appearance the larges t in subcarinal area measures 1.7 cm in size. CONCLUSION: Bibasilar air space process characteristic of pneumonia. Patricia Contreras MD on December 26, 2016 at 18:13 Board Certified Radiologist. This report was verified electronically.
[2016-12-26] MEDS: SODIUM CHLOR 0.9% 1000 ML INJ 1,000 ML IV SCH ×2 (18:23→19:00)
[2016-12-26 19:25] LABS: GROSS BLOOD TUBE #1 TRACE (0); GROSS BLOOD TUBE #2 TRACE (0); SUPERNATE COLOR TUBE #1 CLEAR (CLEAR); SUPERNATE COLOR TUBE #2 CLEAR (CLEAR); SUPERNATE COLOR TUBE #3 CLEAR (CLEAR); SUPERNATE COLOR TUBE #4 CLEAR (CLEAR); VOLUME TUBE # 1 2.9 ML; VOLUME TUBE # 2 3.7 ML; VOLUME TUBE # 4 5.8 ML
[2016-12-26 19:26] LABS: CSF LYMPHOCYTES 26 %; CSF MONOCYTES 74 %; CSF NEUTROPHILS 0 %; WBC TUBE #4 4 /MM3 (0-10)
[2016-12-26] MEDS ORDERED: guaiFENesin/CODEINE SYRUP 200 MG/20 MG/10 ML CUP PO PRN (19:45)
[2016-12-26] MEDS: RESP: ALBUTEROL 2.5 MG/IPRATROPIUM 0.5 MG NEB (SCH) NEB ×2 (20:39→21:32)
[2016-12-26] MEDS: PROMETHAZINE/CODEINE 6.25 MG/10 MG/5 ML CUP PO PRN (21:22)
[2016-12-26 22:37] LABS: MEAN CELL VOLUME 102.1 FL (80.0-100.0); MEAN CORPUSCULAR HEMOGLOBIN 35.4 PG (27.0-34.0); MEAN CORPUSCULAR HGB CONC 34.7 % (32.0-36.0); PLATELET COUNT 68 TH/MM3 (150-450); RED CELL DISTRIBUTION WIDTH 21.1 % (11.6-17.2); WHITE BLOOD COUNT 10.8 TH/MM3 (4.0-11.0)
[2016-12-26 22:42] LABS: HEMO FLAGS AUTO DIFF
[2016-12-26 22:43] LABS: HEMATOCRIT 16.3 % (39.0-51.0)
[2016-12-26 23:04] LABS: BICARBONATE 22.6 MEQ/L (21.0-32.0); POTASSIUM 3.3 MEQ/L (3.5-5.1); TOTAL BILIRUBIN ADULT 1.7 MG/DL (0.2-1.0)
[2016-12-26 23:10] LABS: CALCIUM-PROTEIN CORRECTED 7.1 MG/DL (8.5-10.1)
[2016-12-26] MEDS ORDERED: SODIUM CHLOR 0.9% 250 ML INJ 250 ML IV ONE (23:15)
[2016-12-26] MEDS ORDERED: diphenhydrAMINE HCL 25 MG CAP PO PRN (23:15)
[2016-12-26] MEDS ORDERED: ACETAMINOPHEN 325 MG TAB PO PRN (23:15)
[2016-12-26] MEDS ORDERED: CALCIUM GLUCONATE INJ 1 GM in DEXTROSE 5% IN WATER 100ML INJ 100 ML IV ONE ×2 (23:30)
[2016-12-26 23:33] LABS: BLASTS 24 % (0-0); EOSINOPHILS 1 % (0-4); NEUTROPHIL # MANUAL DIFF 0.1 TH/MM3 (1.8-7.7); POLYS (SEG NEUTROPHILS) 1 % (16-70); WBC DIFF SAMPLE 100
[2016-12-26 23:35] LABS: PLATELET ESTIMATE SMEAR LOW (NORMAL); PLATELET MORPHOLOGY NORMAL (NORMAL); SCAN/DIFF FINAL DIFF MANUAL
[2016-12-27] VITALS (15 sets, daily range): BP systolic 102–144; BP diastolic 50–67; PULSE 100–117; RESP 16–24; TEMP 96.9–99.7; O2SAT 81–95
[2016-12-27] MEDS: PROMETHAZINE/CODEINE 6.25 MG/10 MG/5 ML CUP PO PRN ×4 (01:54→17:25)
[2016-12-27] MEDS: ACETAMINOPHEN/HYDROcodone 325 MG/5 MG TAB PO PRN ×3 (01:54→12:05)
[2016-12-27] MEDS: VANCOMYCIN INJ 2,000 MG in SODIUM CHLORID 0.9% 500 ML INJ 500 ML IV SCH ×2 (01:56→17:16)
[2016-12-27 03:58] LABS: INTERNATIONAL NORMALIZED RATIO 1.1 RATIO; PROTHROMBIN TIME - PATIENT 12.7 SEC (9.8-11.6)
[2016-12-27] MEDS: ACETAMINOPHEN 325 MG TAB PO PRN (04:46)
[2016-12-27] MEDS: diphenhydrAMINE HCL 25 MG CAP PO PRN (04:46)
[2016-12-27] MEDS: RESP: ALBUTEROL 2.5 MG/IPRATROPIUM 0.5 MG NEB (SCH) NEB ×3 (08:36→21:06)
[2016-12-27] MEDS: SODIUM CHLORIDE 0.9% FLUSH 10 ML FLUSH IV FLUSH SCH ×2 (08:40→23:16)
[2016-12-27] MEDS: DOCUSATE SODIUM 50 MG/SENNA 8.6 MG TAB PO SCH ×2 (08:40→20:15)
[2016-12-27] MEDS: CEFEPIME INJ 1,000 MG in SODIUM CHLORIDE 0.9% INJ 100 ML IV SCH ×2 (09:55→23:15)
[2016-12-27] MEDS ORDERED: PHARMACY ORDERED LAB ONE (12:45)
--- NOTE | 2016-12-27 13:53 | PD.ONC.PN ---
Subjective Subjective Remarks Tmax 100.2 overnight. Patient complaining of body aches. Remains short of breath with movement, but states he feels comfortable at rest. Very anxious. Objective Data Date Time Temp Pulse Resp B/P (MAP) Pulse Ox O2 Delivery O2 Flow Rate FiO2 12/27/16 08:36 93 Nasal Cannula 6.00 12/27/16 07:31 99.5 110 24 128/59 (82) 90 12/27/16 06:00 22 12/27/16 04:00 98.1 117 23 108/53 (71) 91 12/27/16 03:02 20 12/27/16 00:00 99.7 114 23 102/52 (69) 93 12/26/16 21:34 92 Nasal Cannula 5.00 12/26/16 21:00 114 12/26/16 20:00 98.7 113 24 133/60 (84) 91 12/26/16 18:30 100.2 115 18 138/47 (77) 92 12/26/16 16:00 98.4 92 20 132/77 (95) 96 12/27/16 12/27/16 12/27/16 07:00 15:00 23:00 Intake Total 2534 ml Balance 2534 ml Result Diagram: 12/26/16213312/26/162133 Laboratory Results Laboratory Tests Test 12/26/16 17:10 12/26/16 21:34 12/27/16 03:05 12/27/16 12:45 CSF Volume (Tube 1) 2.9 ML CSF Supernatant Color (tube 1) CLEAR CSF Gross Blood (Tube 1) TRACE CSF Volume (Tube 2) 3.7 ML CSF Supernatant Color (tube 2) CLEAR CSF Gross Blood (Tube 2) TRACE CSF Volume (Tube 3) 3.0 ML CSF Supernatant Color (tube 3) CLEAR CSF Volume (Tube 4) 5.8 ML CSF Supernatant Color (tube 4) CLEAR CSF WBC (Tube 4) 4 /MM3 CSF RBC (Tube 4) 7 /MM3 CSF Neutrophils 0 % CSF Lymphocytes 26 % CSF Monocytes 74 % CSF Glucose 53 MG/DL CSF Total Protein 27.6 MG/DL White Blood Count 10.8 TH/MM3 Red Blood Count 1.60 MIL/MM3 Hemoglobin 5.7 GM/DL Hematocrit 16.3 % Mean Corpuscular Volume 102.1 FL Mean Corpuscular Hemoglobin 35.4 PG Mean Corpuscular Hemoglobin Concent 34.7 % Red Cell Distribution Width 21.1 % Platelet Count 68 TH/MM3 Mean Platelet Volume 7.4 FL Neutrophils (%) (Auto) % Lymphocytes (%) (Auto) % Monocytes (%) (Auto) % Eosinophils (%) (Auto) % Basophils (%) (Auto) % Neutrophils # (Auto) TH/MM3 Lymphocytes # (Auto) TH/MM3 Monocytes # (Auto) TH/MM3 Eosinophils # (Auto) TH/MM3 Basophils # (Auto) TH/MM3 CBC Comment AUTO DIFF Differential Total Cells Counted 100 Neutrophils % (Manual) 1 % Lymphocytes % 37 % Monocytes % 37 % Eosinophils % 1 % Neutrophils # (Manual) 0.1 TH/MM3 Differential Comment FINAL DIFF MANUAL Atypical Lymphocytes % Blastocytes 24 % Platelet Estimate LOW Platelet Morphology Comment NORMAL Blood Smear Pathologist Review Blood Urea Nitrogen 7 MG/DL Creatinine 1.18 MG/DL Random Glucose 84 MG/DL Total Protein 7.1 GM/DL Albumin 2.9 GM/DL Calcium Level 7.1 MG/DL Alkaline Phosphatase 40 U/L Aspartate Amino Transf (AST/SGOT) 12 U/L Alanine Aminotransferase (ALT/SGPT) 13 U/L Total Bilirubin 1.7 MG/DL Sodium Level 138 MEQ/L Potassium Level 3.3 MEQ/L Chloride Level 106 MEQ/L Carbon Dioxide Level 22.6 MEQ/L Anion Gap 9 MEQ/L Estimat Glomerular Filtration Rate 76 ML/MIN Protein Corrected Calcium 7.1 MG/DL Prothrombin Time 12.7 SEC Prothromb Time International Ratio 1.1 RATIO Fibrinogen 425 mg/dL Culture Results Microbiology Date/Time Source Procedure Growth Status 12/25/16 19:56 Blood Peripheral Aerobic Blood Culture - Preliminary NO GROWTH IN 2 DAYS Resulted 12/25/16 19:56 Blood Peripheral Anaerobic Blood Culture - Preliminary NO GROWTH IN 2 DAYS Resulted 12/25/16 19:47 Blood Peripheral Aerobic Blood Culture - Preliminary NO GROWTH IN 2 DAYS Resulted 12/25/16 19:47 Blood Peripheral Anaerobic Blood Culture - Preliminary NO GROWTH IN 2 DAYS Resulted 12/26/16 17:10 Cerebral Spinal Fluid Lumbar Puncture Acid Fast Stain Pending Received 12/26/16 17:10 Cerebral Spinal Fluid Lumbar Puncture Mycobacterial Culture Pending Received 12/26/16 17:10 Cerebral Spinal Fluid Lumbar Puncture Fungal Smear Pending Received 12/26/16 17:10 Cerebral Spinal Fluid Lumbar Puncture Fungal Culture Pending Received 12/26/16 17:10 Cerebral Spinal Fluid Lumbar Puncture Gram Stain - Final Resulted 12/26/16 17:10 Cerebral Spinal Fluid Lumbar Puncture CSF Culture - Preliminary NO GROWTH IN 24 HOURS. Resulted 12/25/16 23:20 Nasal Washing Influenza Types A,B Antigen (SUNDAR) - Final NEGATIVE FOR FLU A AND B ANTIGEN.... Complete Administered Medications Medications (Trade) Dose Ordered Sig/Emma Route PRN Reason Start Time Stop Time Status Last Admin Dose Admin Cefepime HCl 1000 mg/Sodium Chloride 100 ml @ 200 mls/hr Q12H IV 12/26/16 09:00 12/26/16 20:16 Sodium Chloride 1,000 ml @ 100 mls/hr Q10H IV 12/25/16 23:00 12/26/16 19:00 Ondansetron HCl (Zofran Inj) 4 mg Q6H PRN IVP NAUSEA OR VOMITING 12/25/16 23:00 12/26/16 07:12 Acetaminophen (Tylenol) 650 mg Q6H PRN PO FEVER/PAIN SCALE 1 TO 2 12/25/16 23:00 12/26/16 09:18 Acetaminophen/ Hydrocodone Bitart (Burnham 5-325 Mg) 1 tab Q4H PRN PO PAIN SCALE 3 TO 5 12/25/16 23:00 12/27/16 06:46 Morphine Sulfate (Morphine Inj) 2 mg Q3H PRN IV Pain 6-10 12/25/16 23:00 12/26/16 06:11 Benzonatate (Tessalon) 100 mg Q4H PRN PO COUGH 12/26/16 05:15 12/26/16 15:12 Vancomycin HCl 2000 mg/Sodium Chloride 520 ml @ 260 mls/hr Q12H IV 12/26/16 13:00 12/27/16 01:56 Albuterol/ Ipratropium (Duoneb Neb) 1 ampule Q6HR WHILE AWAKE NEB NEB 12/26/16 20:00 12/27/16 11:39 Promethazine HCl/ Codeine (Phenergan-Codeine Liq) 5 ml Q4H PRN PO COUGH 12/26/16 20:00 12/27/16 06:46 Diphenhydramine HCl (Benadryl) 25 mg Q4H PRN PO SEE LABEL COMMENTS 12/27/16 04:15 12/27/16 04:46 Acetaminophen (Tylenol) 650 mg Q4H PRN PO SEE LABEL COMMENTS 12/27/16 04:15 12/27/16 04:46 Objective Remarks GENERAL: Young man, lying in bed on 5L O2 via NC. SKIN: Warm and dry. HEAD: Normocephalic. EYES: No injection or drainage. NECK: Supple, trachea midline. CARDIOVASCULAR: Regular rate and rhythm RESPIRATORY: diminished at bases, anterior godfrey clear. GASTROINTESTINAL: Abdomen soft, non-tender, nondistended. EXTREMITIES: No cyanosis, or edema. MUSCULOSKELETAL: Adequate muscle tone. NEUROLOGICAL: No obvious focal deficit. Awake, alert, and oriented x3. Assessment/Plan Problem List: (1) Pancytopenia ICD Codes: D61.818 - Other pancytopenia Plan: ++blast cells in circulation. --suspicious for underlying bone marrow disorder such as leukemia. --bone marrow biopsy, FISH studies, flow cytometry and cytogenetics ordered --logan negative --LDH/haptoglobin do not indicate hemolysis --coags normal --iron studies/B12 pending --stool hemoccult pending --hepatitis profile pending --HIV pending (2) Sepsis ICD Codes: A41.9 - Sepsis, unspecified organism Status: Acute Plan: --BC no growth --CSF no growth --CT chest shows pneumonia --on Cefepime. (3) Altered mental status ICD Codes: R41.82 - Altered mental status, unspecified Assessment 26 y/o male with pancytopenia. Plan 1. will obtain bone marrow biopsy and associated studies as above tomorrow through invasive radiology 2. continue antibiotics. 3. obtain CT ab/pelvis as lymphoma remains in differential, although less likely then leukemia 4. I had an extensive discussion with the patient's brother, Isaac, as well as his father Ti. We discussed the patient's hospitalization up to this point, his lab results, his current condition and our concern for leukemia. we discussed obtaining a bone marrow biopsy tomorrow and that we are hopeful for results by Wednesday at the earliest. discussed that if this is leukemia we would need to start induction chemotherapy right away and the patient would be hospitalized for several weeks. encouraged patient;s decision to retain his brother Isaac as healthcare surrogate if he becomes incapacitated to make decisions. 5. agree with 2 units of blood ordered. will need to obtain CMV status as patient is profoundly neutropenic. we will need to start giving irradiated blood. 6. will likely either need Garibay catheter placement or PICC line, as well. 7. will ask if lab can run cytology on CSF fluid that was collected Attending Statement The exam, history, and the medical decision-making described in the above note were completed with the assistance of the mid-level provider. I reviewed and agree with the findings presented. I attest that I had a [id number] encounter with the patient on the same day, and personally performed and documented my assessment and findings in the medical record. Remains severely Neutropenic with fevers Continue with IV Vanc and Cefepime follow blood cultures having intractable cough. Case discussed with . Plans for bronchoscopy with lavage. concern for atypical infection the setting of severe neutropenia WBC is not high enough to cause leukemic infiltrates in the lungs but still a possibility. Peripheral blood blasts cell are noted between 20 -30--if breathing does not improve will consider a trial of IV steroids Bone marrow biopsy in am repeat cbc this evening check daily DIC panel check daily uric acid, and phosp CT abdomen and pelvis d/w patient d/w Fartun Garcia Dec 27, 2016 13:53 Joey Santoyo MD Dec 27, 2016 17:11
[2016-12-27] MEDS ORDERED: DEXAMETHASONE 4 MG TAB PO ONE (14:00)
[2016-12-27] MEDS ORDERED: cloNIDine HCL 0.2 MG TAB PO PRN (14:15)
[2016-12-27 14:21] LABS: TRANSFERRIN IRON PROFILE 172 MG/DL (200-360)
--- NOTE | 2016-12-27 14:25 | HHI.PR ---
Subjective Remarks Patient says that his cough has improved with the Phenergan/codeine. Says he is very exhausted, wasn't able to sleep well last night. Reports diffuse body aches Objective Vital Signs Date Time Temp Pulse Resp B/P (MAP) Pulse Ox O2 Delivery O2 Flow Rate FiO2 12/27/16 08:36 93 Nasal Cannula 6.00 12/27/16 07:31 99.5 110 24 128/59 (82) 90 12/27/16 06:00 22 12/27/16 04:00 98.1 117 23 108/53 (71) 91 12/27/16 03:02 20 12/27/16 00:00 99.7 114 23 102/52 (69) 93 12/26/16 21:34 92 Nasal Cannula 5.00 12/26/16 21:00 114 12/26/16 20:00 98.7 113 24 133/60 (84) 91 12/26/16 18:30 100.2 115 18 138/47 (77) 92 12/26/16 16:00 98.4 92 20 132/77 (95) 96 I/O 12/26/16 12/26/16 12/26/16 12/27/16 12/27/16 12/27/16 07:00 15:00 23:00 07:00 15:00 23:00 Intake Total 805 ml 1463 ml 620 ml 2534 ml Output Total 600 ml 650 ml 750 ml Balance 205 ml 813 ml -130 ml 2534 ml Intake Oral 240 ml 720 ml 620 ml 720 ml IV Total 565 ml 743 ml 1814 ml Output Urine Total 600 ml 650 ml 750 ml # Voids 3 2 # Bowel Movements 0 1 2 Result Diagram: 12/26/16213312/26/162133 Objective Remarks GENERAL: coughing less today, resting in bed CARDIOVASCULAR: Regular rate and rhythm without murmurs, gallops, or rubs. RESPIRATORY: Breath sounds equal and clear bilaterally. Unlabored breathing GASTROINTESTINAL: Abdomen soft, non-tender, nondistended. MUSCULOSKELETAL: No cyanosis, or edema. Skin: Had a ruptured blister on left lower abdomen, dressed in gauze A/P Assessment and Plan 1. Neutropenic fever: Blood culture still pending, continuing broad-spectrum antibiotics with vancomycin and cefepime. CT scan findings suggestive of pneumonia w/ posterior infiltrates, given worsening neutropenia and PNA in young pt, will consult pulmonology for possible BAL and dx. 2. normo/macrocytic anemia: drop in h/h requiring transfusion, will closely monitor and transfuse as necessary 3. Pancytopenia - Hematology working up, appreciate recs. 4. GABRIELA: IVF, improving 5. Thrombocytopenia: ?ITP/TTP vs leukemia. Hematology consulted as above. repeat pending 6. Lymphocytosis: Hematology suspects leukemia, bone marrow biopsy tomorrow Ean Bañuelos MD Dec 27, 2016 14:25
[2016-12-27 14:46] LABS: FERRITIN 648 NG/ML (26-388)
[2016-12-27] MEDS ORDERED: RESP: LIDOCAINE HCL 4% PF 5 ML NEB NEB SCH (16:45)
[2016-12-27] MEDS ORDERED: RESP: ALBUTEROL CONC 2.5 MG/0.5 ML NEB NEB SCH (16:45)
[2016-12-27] MEDS ORDERED: DIATRIZOATE MEGLUM/DIATRIZOATE SOD 9 ML CUP PO ONE (16:45)
--- NOTE | 2016-12-27 17:06 | MB ---
cc: Ria CARDONA M.D. DATE OF CONSULTATION: 12/27/2016. 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 The only prior encounter he has had here was an ER visit last year after a needle stick. 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 He tells me that the patient who he encountered the needle stick with was tested for HIV, and it was negative. In any event, the patient has been in his usual state of health but presented with generalized weakness and some dyspnea to the emergency room and he had very severe neutropenia only 4% neutrophils on a white count of 10,000 with blasts in the periphery. Hemoglobin and hematocrit were low at 9 and 26 and his platelets were low at 77,000. Dr. Santoyo believes he probably has acute leukemia, although that evaluation is still in the process, and he is going to have a bone marrow biopsy. The patient is a nonsmoker. He has had no prior pulmonary disease. Part of his initial evaluation included a chest x-ray with some minimal basilar infiltrates. He was noted to be hypoxic so CT scan was done which revealed bibasilar alveolar infiltrates very suspicious for pneumonia in the setting of fever and neutropenia. At the time of this interview, the patient is alert, oriented he is in no distress and denies any significant dyspnea at rest although he says that when he moves he gets exhausted and short of breath. PAST MEDICAL HISTORY: Past medical history is negative. PAST SURGICAL HISTORY: The only surgical history is a tooth extraction. ALLERGIES: None known. SOCIAL HISTORY: Originally from [place] but he has lived here since childhood. He graduated from [employer] and went to college in [place]. He does not smoke, does not drink alcohol. No illicit drug use other than experimenting with cocaine six or seven years ago. FAMILY HISTORY: Father had colon cancer but no other history of cancer in the family. He has no children. Single. MEDICATIONS: Medications reviewed in the electronic medical record. PHYSICAL EXAMINATION: GENERAL: A large white male, a little obese. VITAL SIGNS: Temperature 97 degrees, pulse 100, respirations 16, sat on 6 liters is 90-93%, blood pressure 120/60. HEAD, EYES, EARS, NOSE, THROAT: Sclerae pale, anicteric. Mucous membranes are moist. NECK: Neck veins are not distended. LUNGS: He does have congestion posteriorly at the bases without wheezing. HEART: Regular heart rhythm. No harsh murmur. ABDOMEN: Abdomen is obese but soft. EXTREMITIES: No peripheral edema. No calf tenderness. Nail beds are pink. IMAGING STUDIES: CT is noted above with basilar infiltrates. LABORATORY DATA: PT/PTT normal. Potassium 3.3, BUN and creatinine are normal. DISCUSSION Mr. Duarte presents probably with an acute leukemia. I spoke to Dr. Santoyo, and he is obviously concerned about the fever and basilar infiltrates in a neutropenic patient. The patient is really quite stable at the present time, although seriously ill. I suggested to Mr. Duarte that we proceed with a bronchoscopy and BAL. Hopefully, this will provide useful information in this setting where his risk of opportunistic infection is very high. I have explained the procedure in simple terms to the patient. I have explained I will not be doing a biopsy in light of the coagulopathy, low platelets but that we will do a lavage of the lung. I have explained that there are some risks including an anesthetic risk, and in addition because he is hypoxic, there is a possibility that he will remain ventilator-dependent after this lavage procedure. After having thoroughly reviewed the procedure and answering his questions, he is agreeable to proceed recognizing the risks and benefits. Consultation will also be placed with infectious disease so that they can oversee antibiotic choice in this complex circumstance. Further diagnostic and/or therapeutic intervention will depend on the results of these initial diagnostic studies and his ongoing clinical course. RMD CHANO Cesar/YA /4:41 PM /4:55 PM
[2016-12-27] MEDS: SODIUM CHLOR 0.9% 1000 ML INJ 1,000 ML IV SCH (17:17)
[2016-12-27] MEDS: MUPIROCIN 2% OINT 22 GM TUBE TOPICAL SCH ×2 (17:25→18:00)
[2016-12-27 17:36] LABS: MEAN CELL VOLUME 96.3 FL (80.0-100.0); MEAN CORPUSCULAR HEMOGLOBIN 33.8 PG (27.0-34.0); MEAN CORPUSCULAR HGB CONC 35.1 % (32.0-36.0); PLATELET COUNT 60 TH/MM3 (150-450); RED BLOOD COUNT 2.01 MIL/MM3 (4.50-5.90); RED CELL DISTRIBUTION WIDTH 19.6 % (11.6-17.2); WHITE BLOOD COUNT 7.4 TH/MM3 (4.0-11.0)
[2016-12-27 17:56] LABS: APTT (PATIENT) 27.8 SEC (24.3-30.1)
[2016-12-27 17:57] LABS: INTERNATIONAL NORMALIZED RATIO 1.1 RATIO; PROTHROMBIN TIME - PATIENT 12.3 SEC (9.8-11.6)
[2016-12-27 17:58] LABS: BICARBONATE 26.3 MEQ/L (21.0-32.0); POTASSIUM 3.4 MEQ/L (3.5-5.1)
[2016-12-27 17:59] LABS: HEMO FLAGS AUTO DIFF
[2016-12-27 18:02] LABS: HEMATOCRIT 19.4 % (39.0-51.0)
[2016-12-27] MEDS ORDERED: SODIUM CHLOR 0.9% 250 ML INJ 250 ML IV ONE ×2 (18:30→18:45)
[2016-12-27 19:14] LABS: BLASTS 20 % (0-0); EOSINOPHILS 1 % (0-4); METAMYELOCYTES 1 % (0-1); NEUTROPHIL # MANUAL DIFF 0.3 TH/MM3 (1.8-7.7); POLYS (SEG NEUTROPHILS) 3 % (16-70); WBC DIFF SAMPLE 100
[2016-12-27 19:15] LABS: PLATELET ESTIMATE SMEAR LOW (NORMAL); PLATELET MORPHOLOGY NORMAL (NORMAL)
[2016-12-27 19:16] LABS: SCAN/DIFF FINAL DIFF MANUAL
--- NOTE | 2016-12-27 20:25 | EKG ---
Date Performed: 12/27/2016 Time Performed: 17:37:59 PTAGE: 26 years EKG: SINUS TACHYCARDIA NONSPECIFIC T-WAVE ABNORMALITY ABNORMAL RHYTHM ECG PREVIOUS TRACING : 05/05/2006 01.21 Compared to previous tracing, heart rate has increased, non specific T wave abnormalities are now more evident. DOCTOR: Ivan Damon Interpretating Date/Time 12/27/2016 20:25:00
[2016-12-27] MEDS ORDERED: DEXAMETHASONE 4 MG TAB PO SCH (21:00)
[2016-12-27] MEDS ORDERED: GADODIAMIDE PF 287 MG/ML 10 ML VIAL (for RAD MRI) IVCONTRAST ONE (22:10)
--- NOTE | 2016-12-27 22:39 | RADRPT ---
EXAM DATE/TIME: 12/27/2016 21:58 [facility] COMPARISON: CT BRAIN W/O CONTRAST, December 25, 2016, 19:50. INDICATIONS : Cephalgia. CONTRAST: 30 cc Omniscan (gadodiamide) IV MEDICAL HISTORY : Lymphocytosis. SURGICAL HISTORY : None. ENCOUNTER: Subsequent ACUITY: 3 day PAIN SCORE: 0/10 LOCATION: cranial TECHNIQUE: Multiplanar, multisequence MRI of the brain was performed both prior to and following the administrat ion of paramagnetic contrast. FINDINGS: There is no evidence for intracranial hemorrhage, mass effect, mass lesions, edema, or extra-axial fl uid collections. The ventricles are normal size for the patient's age. There are no signs of acute infarction for technique. The diffusion portion, and postcontrast portion are unremarkable. There is mucoperiosteal thickening and mucus retention cysts within the maxillary sinuses. CONCLUSION: Unremarkable study. Patricia Contreras MD on December 27, 2016 at 22:34 Board Certified Radiologist. This report was verified electronically.
[2016-12-27] MEDS ORDERED: IOHEXOL 350 MG/ML 10 ML VIAL (for RAD DIAG) IVCONTRAST ONE (23:00)
--- NOTE | 2016-12-27 23:12 | RADRPT ---
EXAM DATE/TIME: 12/27/2016 22:47 [facility] COMPARISON: No previous studies available for comparison. INDICATIONS : Lymphoma. IV CONTRAST: 95 cc Omnipaque 350 (iohexol) IV ORAL CONTRAST: Prescribed oral contrast ingested. RADIATION DOSE: 37.19 CTDIvol (mGy) ; Patient body habitus MEDICAL HISTORY : None SURGICAL HISTORY : None. ENCOUNTER: Initial ACUITY: 2 days PAIN SCALE: 0/10 LOCATION: Bilateral abdomen TECHNIQUE: Volumetric scanning of the abdomen and pelvis was performed. Using automated exposure control and ad justment of the mA and/or kV according to patient size, radiation dose was kept as low as reasonably achievable to obtain optimal diagnostic quality images. DICOM format image data is available electro nically for review and comparison. FINDINGS: There is airspace consolidation in both lower lobes with air bronchograms most characteristic of pneu monia or aspiration. Fatty liver. Wedge-shaped low attenuation lesion posterior spleen possibly a small splenic infarct bu t a hemangioma or other benign lesion could give this appearance. Adrenals, kidneys, pancreas and gallbladder are unremarkable. No free fluid within the abdomen. No bowel obstruction. No adenopathy in the abdomen and pelvis. No p elvic mass. Residual contrast present in the renal collecting systems and bladder. CONCLUSION: 1. Basilar dependent airspace consolidation in both lungs most characteristic of pneumonia or aspirat ion. 2. Low attenuation lesion posterior spleen, possibly small infarct or hemangioma. No adenopathy withi n the abdomen and pelvis. Leander Fiore MD on December 27, 2016 at 23:03 Board Certified Radiologist. This report was verified electronically.
[2016-12-28] VITALS (13 sets, daily range): BP systolic 122–150; BP diastolic 58–84; PULSE 70–114; RESP 16–23; TEMP 96.1–97.9; O2SAT 93–95
[2016-12-28] MEDS: SODIUM CHLOR 0.9% 1000 ML INJ 1,000 ML IV SCH
[2016-12-28] MEDS: ACETAMINOPHEN 325 MG TAB PO PRN (00:11)
[2016-12-28] MEDS: diphenhydrAMINE HCL 25 MG CAP PO PRN (00:11)
[2016-12-28] MEDS: PROMETHAZINE/CODEINE 6.25 MG/10 MG/5 ML CUP PO PRN ×5 (00:15→21:55)
[2016-12-28 02:32] LABS: C. DIFF EPI 027 PRESUMPTIVE NEGATIVE (NEGATIVE)
[2016-12-28] MEDS: VANCOMYCIN INJ 2,000 MG in SODIUM CHLORID 0.9% 500 ML INJ 500 ML IV SCH (05:15)
[2016-12-28] MEDS ORDERED: SODIUM CHLORID 0.9% 500 ML IV PRN (06:15)
[2016-12-28] MEDS ORDERED: CHLORHEXIDINE GLUCONATE 2 % 1 PACK (2 CLOTHS) TOPICAL PRN (06:15)
[2016-12-28] MEDS ORDERED: LACTATED RINGER'S 1000 ML IV PRN (06:15)
[2016-12-28] MEDS ORDERED: INSULIN HUMAN REGULAR 1,000 UNITS/10 ML VIAL SQ PRN (06:15)
[2016-12-28] MEDS ORDERED: POVIDONE IODINE 5% (ANTISEPSIS KIT) 4 APPLICATIONS EACH NARE PRN (06:15)
[2016-12-28 08:02] LABS: MEAN CELL VOLUME 94.7 FL (80.0-100.0); MEAN CORPUSCULAR HEMOGLOBIN 32.6 PG (27.0-34.0); MEAN CORPUSCULAR HGB CONC 34.5 % (32.0-36.0); PLATELET COUNT 65 TH/MM3 (150-450); RED BLOOD COUNT 2.32 MIL/MM3 (4.50-5.90); RED CELL DISTRIBUTION WIDTH 19.6 % (11.6-17.2); WHITE BLOOD COUNT 7.5 TH/MM3 (4.0-11.0)
[2016-12-28 08:08] LABS: HEMO FLAGS AUTO DIFF
[2016-12-28 08:17] LABS: INTERNATIONAL NORMALIZED RATIO 1.1 RATIO
[2016-12-28] MEDS: CEFEPIME INJ 1,000 MG in SODIUM CHLORIDE 0.9% INJ 100 ML IV SCH (08:18)
[2016-12-28] MEDS: SODIUM CHLORIDE 0.9% FLUSH 10 ML FLUSH IV FLUSH SCH ×2 (08:18→22:28)
[2016-12-28] MEDS: DOCUSATE SODIUM 50 MG/SENNA 8.6 MG TAB PO SCH ×2 (08:18→21:00)
[2016-12-28 08:30] LABS: POTASSIUM 3.7 MEQ/L (3.5-5.1)
[2016-12-28 08:35] LABS: INDIRECT BILIRUBIN 1.7 MG/DL (0.0-0.8); TOTAL BILIRUBIN ADULT 2.1 MG/DL (0.2-1.0); URIC ACID 5.3 MG/DL (2.6-7.2)
[2016-12-28 08:54] LABS: BANDS 4 % (0-6); BLASTS 11 % (0-0); POLYS (SEG NEUTROPHILS) 36 % (16-70); WBC DIFF SAMPLE 100
[2016-12-28 08:55] LABS: PLATELET ESTIMATE SMEAR LOW (NORMAL); PLATELET MORPHOLOGY NORMAL (NORMAL); SCAN/DIFF FINAL DIFF MANUAL
--- NOTE | 2016-12-28 09:17 | PD.ONC.PN ---
Subjective Subjective Remarks Afebrile overnight. Patient resting in bed. Anxious about everything going on. Still with body aches. Remains short of breath. Objective Data Date Time Temp Pulse Resp B/P (MAP) Pulse Ox O2 Delivery O2 Flow Rate FiO2 12/28/16 08:25 96.1 102 20 150/68 (95) 94 12/28/16 04:09 70 12/28/16 03:35 97.9 89 18 122/58 (79) 93 12/28/16 01:05 97.6 100 16 125/59 (81) 12/28/16 00:45 97.2 104 16 135/62 (86) 95 12/28/16 00:17 107 12/28/16 00:00 96.6 103 23 136/62 (86) 93 12/27/16 21:08 95 Nasal Cannula 3.00 12/27/16 20:07 109 12/27/16 20:00 98.1 109 22 144/67 (92) 94 12/27/16 18:18 93 12/27/16 16:14 112 12/27/16 16:00 98.5 115 24 102/51 (68) 81 12/27/16 12:48 109 12/27/16 12:00 98.4 112 24 122/58 (79) 90 12/27/16 10:45 96.9 109 16 126/56 (79) 90 12/27/16 10:25 97.7 105 16 115/50 (71) 90 12/28/16 12/28/16 12/28/16 06:59 14:59 22:59 Intake Total 1920 ml Output Total 900 ml Balance 1020 ml Result Diagram: 12/28/16 0607 12/28/16 0607 Laboratory Results Laboratory Tests Test 12/27/16 17:03 12/28/16 00:35 12/28/16 06:07 White Blood Count 7.4 TH/MM3 7.5 TH/MM3 Red Blood Count 2.01 MIL/MM3 2.32 MIL/MM3 Hemoglobin 6.8 GM/DL 7.6 GM/DL Hematocrit 19.4 % 22.0 % Mean Corpuscular Volume 96.3 FL 94.7 FL Mean Corpuscular Hemoglobin 33.8 PG 32.6 PG Mean Corpuscular Hemoglobin Concent 35.1 % 34.5 % Red Cell Distribution Width 19.6 % 19.6 % Platelet Count 60 TH/MM3 65 TH/MM3 Mean Platelet Volume 6.9 FL 6.8 FL CBC Comment AUTO DIFF AUTO DIFF Differential Total Cells Counted 100 100 Neutrophils % (Manual) 3 % 36 % Lymphocytes % 36 % 27 % Monocytes % 39 % 22 % Eosinophils % 1 % Neutrophils # (Manual) 0.3 TH/MM3 3.0 TH/MM3 Metamyelocytes 1 % Differential Comment FINAL DIFF MANUAL FINAL DIFF MANUAL Blastocytes 20 % 11 % Platelet Estimate LOW LOW Platelet Morphology Comment NORMAL NORMAL Haptoglobin 271 MG/DL Prothrombin Time 12.3 SEC 12.0 SEC Prothromb Time International Ratio 1.1 RATIO 1.1 RATIO Activated Partial Thromboplast Time 27.8 SEC Fibrinogen 541 mg/dL 489 mg/dL D-Dimer Quantitative (PE/DVT) 0.58 MG/L FEU Blood Urea Nitrogen 6 MG/DL 9 MG/DL Creatinine 0.89 MG/DL 0.86 MG/DL Random Glucose 91 MG/DL 111 MG/DL Calcium Level 7.8 MG/DL 8.2 MG/DL Lactate Dehydrogenase 320 U/L 359 U/L Sodium Level 138 MEQ/L 138 MEQ/L Potassium Level 3.4 MEQ/L 3.7 MEQ/L Chloride Level 105 MEQ/L 106 MEQ/L Carbon Dioxide Level 26.3 MEQ/L 24.0 MEQ/L Anion Gap 7 MEQ/L 8 MEQ/L Estimat Glomerular Filtration Rate 105 ML/MIN 109 ML/MIN Vancomycin Level Trough 6.7 MCG/ML Stool C. difficile Toxin (PCR) NEGATIVE Stl C. difficile Toxin Epiderm 027 PRESUMPTIVE NEGATIVE Band Neutrophils % 4 % Total Protein 7.5 GM/DL Albumin 2.8 GM/DL Phosphorus Level 2.3 MG/DL Uric Acid 5.3 MG/DL Alkaline Phosphatase 38 U/L Aspartate Amino Transf (AST/SGOT) 13 U/L Alanine Aminotransferase (ALT/SGPT) 13 U/L Total Bilirubin 2.1 MG/DL Direct Bilirubin 0.4 MG/DL Indirect Bilirubin 1.7 MG/DL Culture Results Microbiology Date/Time Source Procedure Growth Status 12/25/16 19:56 Blood Peripheral Aerobic Blood Culture - Preliminary NO GROWTH IN 2 DAYS Resulted 12/25/16 19:56 Blood Peripheral Anaerobic Blood Culture - Preliminary NO GROWTH IN 2 DAYS Resulted 12/25/16 19:47 Blood Peripheral Aerobic Blood Culture - Preliminary NO GROWTH IN 2 DAYS Resulted 12/25/16 19:47 Blood Peripheral Anaerobic Blood Culture - Preliminary NO GROWTH IN 2 DAYS Resulted 12/26/16 17:10 Cerebral Spinal Fluid Lumbar Puncture Acid Fast Stain Pending Received 12/26/16 17:10 Cerebral Spinal Fluid Lumbar Puncture Mycobacterial Culture Pending Received 12/26/16 17:10 Cerebral Spinal Fluid Lumbar Puncture Fungal Smear Pending Received 12/26/16 17:10 Cerebral Spinal Fluid Lumbar Puncture Fungal Culture Pending Received 12/26/16 17:10 Cerebral Spinal Fluid Lumbar Puncture Gram Stain - Final Resulted 12/26/16 17:10 Cerebral Spinal Fluid Lumbar Puncture CSF Culture - Preliminary NO GROWTH IN 24 HOURS. Resulted 12/28/16 00:35 Stool Stool Stool Occult Blood (SUNDAR) - Final HEMOCCULT NEGATIVE Complete 12/25/16 23:20 Nasal Washing Influenza Types A,B Antigen (SUNDAR) - Final NEGATIVE FOR FLU A AND B ANTIGEN.... Complete Administered Medications Medications (Trade) Dose Ordered Sig/Emma Route PRN Reason Start Time Stop Time Status Last Admin Dose Admin Cefepime HCl 1000 mg/Sodium Chloride 100 ml @ 200 mls/hr Q12H IV 12/26/16 09:00 12/28/16 08:18 Sodium Chloride (NS Flush) 2 ml BID IV FLUSH 12/26/16 09:00 12/27/16 23:16 Ondansetron HCl (Zofran Inj) 4 mg Q6H PRN IVP NAUSEA OR VOMITING 12/25/16 23:00 12/26/16 07:12 Acetaminophen (Tylenol) 650 mg Q6H PRN PO FEVER>100.4 12/25/16 23:00 12/26/16 09:18 Morphine Sulfate (Morphine Inj) 2 mg Q3H PRN IV Pain 6-10 12/25/16 23:00 12/26/16 06:11 Benzonatate (Tessalon) 100 mg Q4H PRN PO COUGH 12/26/16 05:15 12/26/16 15:12 Albuterol/ Ipratropium (Duoneb Neb) 1 ampule Q6HR WHILE AWAKE NEB NEB 12/26/16 20:00 12/27/16 21:06 Promethazine HCl/ Codeine (Phenergan-Codeine Liq) 5 ml Q4H PRN PO COUGH 12/26/16 20:00 12/28/16 05:14 Diphenhydramine HCl (Benadryl) 25 mg Q4H PRN PO SEE LABEL COMMENTS 12/27/16 04:15 12/28/16 00:11 Acetaminophen (Tylenol) 650 mg Q4H PRN PO SEE LABEL COMMENTS 12/27/16 04:15 12/28/16 00:11 Mupirocin (Bactroban 2% Oint) 1 applic TID TOPICAL 12/27/16 14:15 12/27/16 17:25 Oxycodone HCl (Roxicodone) 5 mg Q6H PRN PO PAIN 1-10 12/27/16 14:00 12/28/16 05:14 Vancomycin HCl 2000 mg/Sodium Chloride 520 ml @ 260 mls/hr Q12H IV 12/28/16 05:00 12/28/16 05:15 Objective Remarks GENERAL: Young man, lying in bed, anxious. on 5L O2 via NC SKIN: Warm and dry. HEAD: Normocephalic. EYES: No injection or drainage. NECK: Supple, trachea midline. CARDIOVASCULAR: Regular rate and rhythm RESPIRATORY: Breath sounds equal bilaterally. No accessory muscle use. GASTROINTESTINAL: Abdomen soft, non-tender, nondistended. EXTREMITIES: No cyanosis NEUROLOGICAL: No obvious focal deficit. Awake, alert, and oriented x3. Assessment/Plan Problem List: (1) Pancytopenia ICD Codes: D61.818 - Other pancytopenia Plan: ++blast cells in circulation. --suspicious for underlying bone marrow disorder such as leukemia. --bone marrow biopsy, FISH studies, flow cytometry and cytogenetics ordered --logan negative --LDH/haptoglobin do not indicate hemolysis --coags normal --iron studies/B12 show no deficit --stool hemoccult negative --hepatitis profile pending --HIV pending (2) Sepsis ICD Codes: A41.9 - Sepsis, unspecified organism Status: Acute Plan: --BC no growth --CSF no growth --CT chest shows pneumonia --on Cefepime. (3) Altered mental status ICD Codes: R41.82 - Altered mental status, unspecified Assessment 26 y/o male with pancytopenia. Plan 1. bronch and bone marrow biopsy today 2. start D5W as patient will be NPO for procedures today 3. continue antibiotics 4. consult vascular access for PICC line. Attending Statement The exam, history, and the medical decision-making described in the above note were completed with the assistance of the mid-level provider. I reviewed and agree with the findings presented. I attest that I had a [id number] encounter with the patient on the same day, and personally performed and documented my assessment and findings in the medical record 1. Febrile Neutropenia with peripheral blasts highly suspicious for acute leukemia - continue broad spectrum antibiotics - Blood cultures with no growth - Had bone marrow biopsy - will review in am with path - Once the diagnosis is conformed--will need induction chemotherapy - FISH/FLOW and CYTOGENETICS PENDING - BCR-ABL and PML RAR-alpha testing pending - OK to place PICC line today - will eventually need a port 2. Headache/Nause - Brain MRI negative 3 Respiratory distress - s/p broch - concern for atypical infection 4. FEN - replace electrolytes - Calcium and Phosp 5. Thrombocytopenia - no evidence of DIC - check daily coags and fibrinogen and CBC 6. Anemia - transfuse to keep Hb > 7 - will need irradiated blood products jeanette adams overnight events reviewed Fartun Pagan Dec 28, 2016 09:17 Joey Santoyo MD Dec 28, 2016 22:43
[2016-12-28] MEDS: RESP: ALBUTEROL 2.5 MG/IPRATROPIUM 0.5 MG NEB (SCH) NEB ×3 (09:23→20:00)
--- NOTE | 2016-12-28 10:53 | RADRPT ---
EXAM DATE/TIME: 12/26/2016 17:03 [facility] COMPARISON: No previous studies available for comparison. INDICATIONS : Patient is in need of a lumbar puncture due to altered mental status and fever. MEDICAL HISTORY : N/A SURGICAL HISTORY : N/A ENCOUNTER: Initial ACUITY: 1 day PAIN SCORE: 0/10 LUMBAR PUNCTURE TIME: 1707 hours FLUORO TIME: 1.1 minutes IMAGE SERIES: 0 ACCESS LEVEL: L3-4 OPENING PRESSURE: 12 cm of water CLOSING PRESSURE: Not requested. FLUID: 16 cc of clear CSF was collected and sent to the laboratory for analysis. PROCEDURE : 1. Fluoroscopic guided lumbar puncture. 2. Recording of opening pressure. The risks, benefits and alternatives to the procedure were explained and verbal and written consent w as obtained. The site was prepped in sterile fashion. Full sterile technique was used, including ca p, mask, sterile gloves and gown and a large sterile sheet. Hand hygiene and 2% chlorhexidine and/or betadine/alcohol prep was utilized per protocol for cutaneous antisepsis. The skin and subcutaneous tissues were infiltrated with local anesthetic solution. With fluoroscopic guidance the lumbar thecal sac was punctured at the above level described above and the opening pressure was recorded. The above described fluid was removed without difficulty. The patient tolerated the procedure well and there were no complications. CONCLUSION: Uncomplicated fluoroscopically guided lumbar puncture with pressures as above. Nilson Bonner MD on December 28, 2016 at 10:52 Board Certified Radiologist. This report was verified electronically.
[2016-12-28] MEDS: DEXTROSE 5% IN WATE 1000ML INJ 1,000 ML IV SCH ×2 (11:57→20:55)
[2016-12-28] MEDS: MUPIROCIN 2% OINT 22 GM TUBE TOPICAL SCH ×3 (11:59→18:26)
[2016-12-28] MEDS ORDERED: PROPOFOL 200 MG/20 ML AMP IV ONE (12:00)
--- NOTE | 2016-12-28 13:08 | HHI.PR ---
Subjective Remarks Patient says he feels about the same as yesterday with diffuse body aches and cough. Foster mother is in the room with him today. Did require further blood transfusion last night along with a dramatic increase in oxygen demand now requiring 6 L was noted to desat into the 80s on room air when going to the restroom last night.- Objective Vital Signs Date Time Temp Pulse Resp B/P (MAP) Pulse Ox O2 Delivery O2 Flow Rate FiO2 12/28/16 09:23 93 Nasal Cannula 6.00 12/28/16 08:25 96.1 102 20 150/68 (95) 94 12/28/16 04:09 70 12/28/16 03:35 97.9 89 18 122/58 (79) 93 12/28/16 01:05 97.6 100 16 125/59 (81) 12/28/16 00:45 97.2 104 16 135/62 (86) 95 12/28/16 00:17 107 12/28/16 00:00 96.6 103 23 136/62 (86) 93 12/27/16 21:08 95 Nasal Cannula 3.00 12/27/16 20:07 109 12/27/16 20:00 98.1 109 22 144/67 (92) 94 12/27/16 18:18 93 12/27/16 16:14 112 12/27/16 16:00 98.5 115 24 102/51 (68) 81 I/O 12/27/16 12/27/16 12/27/16 12/28/16 12/28/16 12/28/16 07:00 15:00 23:00 07:00 15:00 23:00 Intake Total 2534 ml 100 ml 2610 ml 1920 ml 100 ml Output Total 4250 ml 900 ml Balance 2534 ml 100 ml -1640 ml 1020 ml 100 ml Intake Oral 720 ml 1560 ml 240 ml IV Total 1814 ml 100 ml 400 ml 1680 ml 100 ml Packed Cells 650 ml Output Urine Total 4050 ml 900 ml Stool Total 200 ml # Voids 2 3 1 # Bowel Movements 2 1 Result Diagram: 12/28/1660612/28/16 0607 Objective Remarks GENERAL: Lying in bed relatively still, awake, appears exhausted CARDIOVASCULAR: Regular rate and rhythm without murmurs, gallops, or rubs. RESPIRATORY: Breath sounds equal and clear bilaterally. Unlabored breathing GASTROINTESTINAL: Abdomen soft, non-tender, nondistended. MUSCULOSKELETAL: No cyanosis, or edema. Skin: Had a ruptured blister on left lower abdomen, dressed in gauze A/P Assessment and Plan 1. Neutropenic fever: Blood culture results still pending, continuing broad- spectrum antibiotics with vancomycin and cefepime. 2. hypoxia: new onset since yesterday, CT scan findings suggestive of pneumonia w/ posterior infiltrates, given worsening neutropenia and PNA in young pt, pulmonology for bronchioloalveolar lavage. 2. normo/macrocytic anemia: drop in h/h requiring transfusion, will closely monitor and transfuse as necessary 3. Pancytopenia - Hematology working up, appreciate recs. 4. GABRIELA: IVF, improving 5. Thrombocytopenia: ?ITP/TTP vs leukemia. Hematology consulted as above. repeat pending 6. Lymphocytosis: Hematology suspects leukemia, bone marrow biopsy today I explained the gravity of the situation to the patient and his foster mother, explained to them that if it wasn't for his neutropenia he would be in the intensive care unit. They vocalized understanding Ean Bañuelos MD Dec 28, 2016 13:08
[2016-12-28] MEDS ORDERED: CALCIUM CARBONATE 500 MG CHEWABLE TAB CHEW PRN (14:00)
--- NOTE | 2016-12-28 14:19 | RADRPT ---
EXAM DATE/TIME: 12/28/2016 13:41 [facility] COMPARISON: No previous studies available for comparison. INDICATIONS : Picc line placement. MEDICAL HISTORY : Lymphocytosis SURGICAL HISTORY : None. ENCOUNTER: Initial ACUITY: 3 days PAIN SCORE: 0/10 LOCATION: Bilateral chest FINDINGS: A single view of the chest demonstrates cardiomegaly with interstitial edema. No pleural effusions or pneumothorax. The cardiomediastinal contours are unremarkable. Osseous structures are intact. CONCLUSION: Cardiomegaly with interstitial edema. Right-sided PICC line placement with tip in the right subclavia n vein. Carlos Toth MD on December 28, 2016 at 14:17 Board Certified Radiologist. This report was verified electronically.
[2016-12-28] MEDS ORDERED: FAMOTIDINE 20 MG/2 ML VIAL IV PUSH ONE (14:20)
[2016-12-28] MEDS ORDERED: LIDOCAINE HCL 1% 20 ML VIAL ONE (14:49)
[2016-12-28] MEDS ORDERED: LISINOPRIL 10 MG TAB PO SCH (15:00)
[2016-12-28] MEDS ORDERED: SODIUM CHLORIDE 0.9% 20 ML VIAL ONE (15:54)
[2016-12-28] MEDS ORDERED: LIDOCAINE HCL 4% PF 5 ML AMP ONE (15:55)
[2016-12-28] MEDS ORDERED: LIDOCAINE HCL 2% 50 ML VIAL ONE (15:55)
[2016-12-28] MEDS ORDERED: EPINEPHrine HCL (1:1000) 1 MG/ML VIAL ONE (15:55)
[2016-12-28] MEDS ORDERED: LIDOCAINE VISCOUS 2% SOLN 15 ML UDC ONE (15:55)
--- NOTE | 2016-12-28 16:35 | PD.ID.CON ---
History of Present Illness Service ID Consult Requested By Dr Sultana Dill Reason for Consult pneumonia, neutropenic pt with suspected leukemia Primary Care Physician No Primary Care Physician Diagnoses: History of Present Illness 26 yo male admitted 3 days ago with fever and confusion and his w/u revelad neutropenia with blasts in periferal blood He endorses dry cough for 1 week Though his CXR was negative his CT showed Bibasilar air space process characteristic of pneumonia. He was started on broad spectrum abx (cefepime, vancomycin) and his fever resolved Pt was seen in PACU right after bronchospcy He is in severe distress, continiously coughing and unable to any question history obtained from the chart + thin blood tinged secretrions noted Review of Systems ROS Limitations: Clinical Condition (resp distress) Past Family Social History Allergies: Coded Allergies: No Known Allergies (Verified , 12/25/16) Past Medical History None Past Surgical History [place] Tooth Extraction Active Ordered Medications Medications where reviewed in EMR Antibiotics Include: cefepime vancomycin Family History Reviewed. No h/o DM or CAD Social History Occasional alcohol. Negative for tobacco or drugs. + travcel to [place] 6 yrs ago Physical Exam Vital Signs Vital Signs Date Time Temp Pulse Resp B/P (MAP) Pulse Ox O2 Delivery O2 Flow Rate FiO2 12/28/16 15:34 97.1 114 22 141/84 (103) 95 12/28/16 13:00 97.2 101 20 140/67 (91) 95 12/28/16 09:23 93 Nasal Cannula 6.00 12/28/16 08:25 96.1 102 20 150/68 (95) 94 12/28/16 04:09 70 12/28/16 03:35 97.9 89 18 122/58 (79) 93 12/28/16 01:05 97.6 100 16 125/59 (81) 12/28/16 00:45 97.2 104 16 135/62 (86) 95 12/28/16 00:17 107 12/28/16 00:00 96.6 103 23 136/62 (86) 93 12/27/16 21:08 95 Nasal Cannula 3.00 12/27/16 20:07 109 12/27/16 20:00 98.1 109 22 144/67 (92) 94 12/27/16 18:18 93 Physical Exam CONSTITUTIONAL/GENERAL: This is a morbidly obese patient, in severe apparent resp distress. Constantly coughing TUBES/LINES/DRAINS: SKIN: No jaundice, rashes, or lesions. Skin temperature appropriate. Not diaphoretic. HEAD: Atraumatic. Normocephalic. EYES: Pupils equal and round and reactive. Extraocular motions intact. No scleral icterus. No injection or drainage. Fundi not examined. ENT: Hearing grossly normal. Nose without bleeding or purulent drainage. NECK: Trachea midline. Supple, nontender. CARDIOVASCULAR: Regular tachycardia without murmurs, gallops, or rubs. No JVD. Peripheral pulses symmetric. Well perfused perifery RESPIRATORY/CHEST: Symmetric, unlabored respirations. Clear to auscultation. Breath sounds equal bilaterally. No wheezes, rales, or rhonchi. GASTROINTESTINAL: Abdomen soft, non-tender, nondistended. No hepato-splenomegaly , or palpable masses. No guarding. Bowel sounds present. MUSCULOSKELETAL: Extremities without clubbing, cyanosis, or edema. No joint tenderness or effusion noted. No calf tenderness. No mottling or clubbing. LYMPHATICS: No palpable cervical or supraclavicular adenopathy. NEUROLOGICAL: Awake and alert. Motor and sensory grossly within normal limits. Follows commands. Normal speech, though can only say few words at a time 2/2 resp distress. Moves all extremities. PSYCHIATRIC: Anxious. Distressed Laboratory Laboratory Tests Test 12/27/16 17:03 12/28/16 00:35 12/28/16 06:07 White Blood Count 7.4 7.5 Red Blood Count 2.01 2.32 Hemoglobin 6.8 7.6 Hematocrit 19.4 22.0 Mean Corpuscular Volume 96.3 94.7 Mean Corpuscular Hemoglobin 33.8 32.6 Mean Corpuscular Hemoglobin Concent 35.1 34.5 Red Cell Distribution Width 19.6 19.6 Platelet Count 60 65 Mean Platelet Volume 6.9 6.8 CBC Comment AUTO DIFF AUTO DIFF Differential Total Cells Counted 100 100 Neutrophils % (Manual) 3 36 Lymphocytes % 36 27 Monocytes % 39 22 Eosinophils % 1 Neutrophils # (Manual) 0.3 3.0 Metamyelocytes 1 Differential Comment FINAL DIFF MANUAL FINAL DIFF MANUAL Blastocytes 20 11 Platelet Estimate LOW LOW Platelet Morphology Comment NORMAL NORMAL Haptoglobin 271 Prothrombin Time 12.3 12.0 Prothromb Time International Ratio 1.1 1.1 Activated Partial Thromboplast Time 27.8 Fibrinogen 541 489 D-Dimer Quantitative (PE/DVT) 0.58 Blood Urea Nitrogen 6 9 Creatinine 0.89 0.86 Random Glucose 91 111 Calcium Level 7.8 8.2 Lactate Dehydrogenase 320 359 Sodium Level 138 138 Potassium Level 3.4 3.7 Chloride Level 105 106 Carbon Dioxide Level 26.3 24.0 Anion Gap 7 8 Estimat Glomerular Filtration Rate 105 109 Vancomycin Level Trough 6.7 Stool C. difficile Toxin (PCR) NEGATIVE Stl C. difficile Toxin Epiderm 027 PRESUMPTIVE NEGATIVE Band Neutrophils % 4 Total Protein 7.5 Albumin 2.8 Phosphorus Level 2.3 Uric Acid 5.3 Alkaline Phosphatase 38 Aspartate Amino Transf (AST/SGOT) 13 Alanine Aminotransferase (ALT/SGPT) 13 Total Bilirubin 2.1 Direct Bilirubin 0.4 Indirect Bilirubin 1.7 Date/Time Source Procedure Growth Status 12/25/16 19:56 Blood Peripheral Aerobic Blood Culture - Preliminary NO GROWTH IN 3 DAYS Resulted 12/25/16 19:56 Blood Peripheral Anaerobic Blood Culture - Preliminary NO GROWTH IN 3 DAYS Resulted 12/26/16 17:10 Cerebral Spinal Fluid Lumbar Puncture Acid Fast Stain Pending Received 12/26/16 17:10 Cerebral Spinal Fluid Lumbar Puncture Mycobacterial Culture Pending Received 12/28/16 00:35 Stool Stool Stool Occult Blood (SUNDAR) - Final HEMOCCULT NEGATIVE Complete 12/25/16 23:20 Nasal Washing Influenza Types A,B Antigen (SUNDAR) - Final NEGATIVE FOR FLU A AND B ANTIGEN.... Complete Result Diagram: 12/28/16 0607 12/28/16 0607 Imaging Last Impressions Chest CT 12/26/16 0000 Signed Impressions: Service Date/Time: Monday, December 26, 2016 17:45 - CONCLUSION: Bibasilar air space process characteristic of pneumonia. Patricia Contreras MD Head CT 12/25/161940 Signed Impressions: Service Date/Time: Sunday, December 25, 2016 19:50 - CONCLUSION: Negative noncontrast head CT. Audie Maria MD Chest X-Ray 12/25/161940 Signed Impressions: Service Date/Time: Sunday, December 25, 2016 20:02 - CONCLUSION: No evidence of acute cardiopulmonary disease. Audei Maria MD Assessment and Plan Assessment and Plan Acute leukemia, probable Febrile neutropenia on presentation Pneumonia sp bronch bacterial vs atypical vs coccideomycosis reactivation (travel to highly endemic are) Cont broad spectrum abx increase cefepime to 2 gm q 8 hrs Add azithromycin chk coccideomycosis serologies Add fluconazole P coccideomycosis serologies fu blood clx fu bronch results Alana Daley MD Dec 28, 2016 16:35
[2016-12-28] MEDS ORDERED: fentaNYL CITRATE 250 MCG/5 ML AMP ONE (16:38)
[2016-12-28] MEDS ORDERED: MIDAZOLAM HCL 2 MG/2 ML VIAL ONE (16:38)
--- NOTE | 2016-12-28 17:13 | PD.RAD ---
Post CT Procedure Prog Note Pre Procedure Diagnosis: (1) Thrombocytopenia (2) Lymphocytosis Post Procedure Diagnosis: (1) Lymphocytosis (2) Thrombocytopenia Procedure Date: Dec 28, 2016 Supervising Radiologist: Grant Jones Anesthesia: Conscious Sedation Plan of Activity Patient to Unit: PACU Patient Condition: Good Additional Comments: left iliac bone See PACS Report for procedural detail/treatment Grant Jones MD Dec 28, 2016 17:13
[2016-12-28] MEDS ORDERED: SUGAMMADEX SODIUM 200 MG/2 ML VIAL IV PUSH ONE ×2 (17:30)
[2016-12-28] MEDS ORDERED: RESP: ALBUTEROL 2.5 MG/3 ML NEB (PRN) NEB (18:15)
[2016-12-28] MEDS ORDERED: *RESP: ALBUTEROL 2.5 MG/3 ML NEB (PRN) PERIprocedural Use ONLY NEB ONE (18:20)
[2016-12-28] MEDS ORDERED: LORazepam 2 MG/ML VIAL ONE (18:35)
[2016-12-28] MEDS ORDERED: DO NOT ADM ANY ANTICOAGULANT DRUGS PRN (18:45)
[2016-12-28 21:30] LABS: BONE MARROW PROCESSING COMPLETE; IRON STAIN DONE; JENNER GIEMSA STAIN DONE
[2016-12-28] MEDS: AZITHROMYCIN INJ 500 MG in SODIUM CHLOR 0.9% 250 ML INJ 250 ML IV SCH (22:23)
[2016-12-28] MEDS: CEFEPIME INJ 2,000 MG in SODIUM CHLORIDE 0.9% INJ 100 ML IV SCH (23:41)
[2016-12-29] VITALS (13 sets, daily range): BP systolic 117–150; BP diastolic 57–72; PULSE 86–111; RESP 20–22; TEMP 96.7–101.7; O2SAT 90–100
[2016-12-29] MEDS: FLUCONAZOLE 400 MG PREMIX BAG 200 ML IV SCH ×2 (00:31→23:33)
[2016-12-29] MEDS: PROMETHAZINE/CODEINE 6.25 MG/10 MG/5 ML CUP PO PRN ×5 (01:58→17:12)
[2016-12-29] MEDS: VANCOMYCIN INJ 2,000 MG in SODIUM CHLORID 0.9% 500 ML INJ 500 ML IV SCH ×3 (02:15→13:04)
[2016-12-29] MEDS ORDERED: PHARMACY ORDERED LAB ONE (04:45)
--- NOTE | 2016-12-29 07:18 | MP ---
cc: Ria CARDONA DATE OF SURGERY 12/28/2016 PROCEDURE Bronchoscopy. INDICATION Leukemia with pulmonary infiltrates in the lung. PROCEDURE PERFORMED After informed consent was obtained the patient underwent diagnostic bronchoscopy with general anesthesia. Examination of the trachea and mainstem bronchi revealed scattered bloody secretions. Examination of the right upper lobe, right middle and lower lobes again revealed some scattered bloody secretions but no other endobronchial pathology. The right lower lobe was lavaged and submitted for multiple cultures and cytology. Examination of the left main stem bronchus again revealed some scattered bloody secretions. Left upper lobe and lower lobes were the same but no other endobronchial pathology. The left lower lobe also was lavaged and submitted for cultures and cytology. He tolerated the procedure well and is being prepared for recovery. Ria Cardona MD RSW/SSB /6:20 PM /7:12 AM
--- NOTE | 2016-12-29 07:48 | RADRPT ---
EXAM DATE/TIME: 12/28/2016 16:53 CORRECTION Corrected on: January 01, 2017; added left ilium This report was corrected on January 01, 2017, and is no longer valid. [facility] COMPARISON: No previous studies available for comparison. INDICATIONS : Pancytopenia. SEDATION TIME: 30 minutes BIOPSY SITE: left ilium MEDICATION(S): 1.) 2.5 mg midazolam (Versed) IV 2.) 125 mcg fentanyl (Sublimaze) DEVICE(S): 1.) 11 gauge Bone marrow biopsy needle MEDICAL HISTORY : None. SURGICAL HISTORY : None. ENCOUNTER: Initial ACUITY: 1 day PAIN SCORE: 0/10 LOCATION: Bilateral pelvis A total of one core specimen(s) were obtained and sent to the laboratory for pathologic evaluation. PROCEDURE: 1. CT guided bone marrow biopsy. 2. Conscious sedation with continuous EKG and oximetry monitoring. 3. EKG and oximetry remained stable throughout the procedure. Prior to the procedure informed consent was obtained. Any appropriate prior imaging studies were rev iewed. Using automated exposure control and adjustment of the mA and/or kV according to patient size , radiation dose was kept as low as reasonably achievable to obtain optimal diagnostic quality images . DICOM format image data is available electronically for review and comparison. The site was prepped in a sterile fashion. Full sterile technique was used, including cap, mask, iris rile gloves and gown and a large sterile sheet. Hand hygiene and 2% chlorhexidine and/or betadine/al cohol prep was utilized per protocol for cutaneous antisepsis. The skin and subcutaneous tissues wer e infiltrated with local anesthetic solution. With CT guidance the previously identified target was localized. Biopsy was performed using the presc ribed needle as above. Following biopsy marrow aspiration was performed with repeat puncture. [place] te hemostasis was obtained with compression at the puncture site. Follow-up CT scan reveals no hemorrhage. Conscious sedation was performed with the prescribed dosages and duration as above in the presence of an independent trained radiology nurse to assist in the monitoring of the patient. EKG and oximetry remained stable throughout the procedure. The patient tolerated the procedure well and there were no complications. The patient was sent to Radiology Outpatient Unit in stable condition. CONCLUSION: 1. Uncomplicated CT guided bone marrow aspirate. 2. Uncomplicated CT guided bone marrow biopsy. Grant Jones MD on December 29, 2016 at 7:47 Board Certified Radiologist. This report was verified electronically.
[2016-12-29 08:18] LABS: MEAN CELL VOLUME 96.5 FL (80.0-100.0); MEAN CORPUSCULAR HEMOGLOBIN 33.4 PG (27.0-34.0); MEAN CORPUSCULAR HGB CONC 34.6 % (32.0-36.0); PLATELET COUNT 61 TH/MM3 (150-450); RED BLOOD COUNT 2.28 MIL/MM3 (4.50-5.90); RED CELL DISTRIBUTION WIDTH 20.9 % (11.6-17.2); WHITE BLOOD COUNT 9.6 TH/MM3 (4.0-11.0)
[2016-12-29 08:24] LABS: HEMO FLAGS AUTO DIFF
[2016-12-29] MEDS: RESP: ALBUTEROL 2.5 MG/IPRATROPIUM 0.5 MG NEB (SCH) NEB ×3 (08:30→21:15)
[2016-12-29 08:46] LABS: BICARBONATE 26.5 MEQ/L (21.0-32.0); POTASSIUM 3.5 MEQ/L (3.5-5.1)
[2016-12-29 08:48] LABS: INDIRECT BILIRUBIN 0.6 MG/DL (0.0-0.8); TOTAL BILIRUBIN ADULT 0.8 MG/DL (0.2-1.0)
[2016-12-29] MEDS: DOCUSATE SODIUM 50 MG/SENNA 8.6 MG TAB PO SCH ×2 (09:00→21:00)
[2016-12-29] MEDS: SODIUM CHLORIDE 0.9% FLUSH 10 ML FLUSH IV FLUSH SCH ×2 (09:00→23:00)
[2016-12-29] MEDS: CEFEPIME INJ 2,000 MG in SODIUM CHLORIDE 0.9% INJ 100 ML IV SCH ×2 (09:08→22:59)
[2016-12-29] MEDS: PANTOPRAZOLE SOD 20 MG DELAYED RELEASE TAB PO SCH (09:15)
[2016-12-29 09:18] LABS: BLASTS 10 % (0-0); NEUTROPHIL # MANUAL DIFF 1.8 TH/MM3 (1.8-7.7); POLYS (SEG NEUTROPHILS) 19 % (16-70); WBC DIFF SAMPLE 100
[2016-12-29 09:19] LABS: OVALOCYTES 1+ (NORMAL); PLATELET ESTIMATE SMEAR LOW (NORMAL); PLATELET MORPHOLOGY NORMAL (NORMAL); SCAN/DIFF FINAL DIFF MANUAL
[2016-12-29] MEDS: MUPIROCIN 2% OINT 22 GM TUBE TOPICAL SCH ×3 (09:24→17:05)
[2016-12-29 09:47] LABS: HSV 1,PCR Negative (Negative)
--- NOTE | 2016-12-29 11:21 | PD.ONC.PN ---
Subjective Subjective Remarks Afebrile overnight Patient anxious to find out results of bone marrow Complaints of shortness of breath and body aches Objective Data Date Time Temp Pulse Resp B/P (MAP) Pulse Ox O2 Delivery O2 Flow Rate FiO2 12/29/16 08:50 98.0 98 22 150/69 (96) 93 12/29/16 08:35 94 Venturi Mask 6.00 50 12/29/16 04:10 92 12/29/16 04:04 98.7 98 20 142/62 (88) 97 12/29/16 00:10 86 12/29/16 00:00 97.5 89 20 117/57 (77) 93 12/28/16 22:33 96 12/28/16 21:30 99 28 133/56 (81) 95 Venturi Mask 6 50 12/28/16 21:15 99 28 133/58 (83) 95 Venturi Mask 6 50 12/28/16 21:00 100 28 138/69 (92) 95 Venturi Mask 6 50 12/28/16 20:45 107 28 131/64 (86) 95 Venturi Mask 6 50 12/28/16 20:30 101 28 122/62 (82) 95 Venturi Mask 6 50 12/28/16 20:15 107 28 132/60 (84) 91 Venturi Mask 6 50 12/28/16 20:00 101 28 128/70 (89) 91 Venturi Mask 6 50 12/28/16 19:45 105 28 128/70 (89) 95 Venturi Mask 6 50 12/28/16 19:30 107 28 125/68 (87) 98 Simple Mask 10 12/28/16 19:15 102 28 120/58 (78) 98 Nasal Cannula 5 12/28/16 19:00 102 28 119/53 (75) 95 Non-Rebreather 15 12/28/16 18:45 107 28 114/60 (78) 90 Non-Rebreather 15 12/28/16 18:30 117 28 114/60 (78) 87 Non-Rebreather 15 12/28/16 18:15 98.5 106 28 114/60 (78) 88 Simple Mask 10 12/28/16 15:34 97.1 114 22 141/84 (103) 95 12/28/16 13:00 97.2 101 20 140/67 (91) 95 12/28/16 12:28 94 12/29/16 12/29/16 12/29/16 07:00 15:00 23:00 Intake Total 575 ml 105.5 ml Output Total 600 ml Balance -25 ml 105.5 ml Result Diagram: 12/29/16 0732 12/29/16 0732 Laboratory Results Laboratory Tests Test 12/28/16 16:50 12/28/16 21:47 12/29/16 07:32 White Blood Count 9.6 TH/MM3 Red Blood Count 2.28 MIL/MM3 Hemoglobin 7.6 GM/DL Hematocrit 22.0 % Mean Corpuscular Volume 96.5 FL Mean Corpuscular Hemoglobin 33.4 PG Mean Corpuscular Hemoglobin Concent 34.6 % Red Cell Distribution Width 20.9 % Platelet Count 61 TH/MM3 Mean Platelet Volume 7.1 FL CBC Comment AUTO DIFF Differential Total Cells Counted 100 Neutrophils % (Manual) 19 % Lymphocytes % 37 % Monocytes % 34 % Neutrophils # (Manual) 1.8 TH/MM3 Differential Comment FINAL DIFF MANUAL Blastocytes 10 % Platelet Estimate LOW Platelet Morphology Comment NORMAL Ovalocytes 1+ Blood Urea Nitrogen 13 MG/DL Creatinine 0.94 MG/DL Random Glucose 88 MG/DL Total Protein 7.1 GM/DL Albumin 2.6 GM/DL Calcium Level 8.1 MG/DL Alkaline Phosphatase 33 U/L Aspartate Amino Transf (AST/SGOT) 16 U/L Alanine Aminotransferase (ALT/SGPT) 16 U/L Lactate Dehydrogenase 359 U/L Total Bilirubin 0.8 MG/DL Direct Bilirubin 0.2 MG/DL Sodium Level 141 MEQ/L Potassium Level 3.5 MEQ/L Chloride Level 108 MEQ/L Carbon Dioxide Level 26.5 MEQ/L Anion Gap 7 MEQ/L Estimat Glomerular Filtration Rate 99 ML/MIN Indirect Bilirubin 0.6 MG/DL Culture Results Microbiology Date/Time Source Procedure Growth Status 12/26/16 17:10 Cerebral Spinal Fluid Lumbar Puncture Acid Fast Stain - Final NO ACID FAST BACILLI SEEN Resulted 12/26/16 17:10 Cerebral Spinal Fluid Lumbar Puncture Mycobacterial Culture Pending Resulted 12/26/16 17:10 Cerebral Spinal Fluid Lumbar Puncture Fungal Smear - Final NO FUNGAL ELEMENTS SEEN. Resulted 12/26/16 17:10 Cerebral Spinal Fluid Lumbar Puncture Fungal Culture Pending Resulted 12/26/16 17:10 Cerebral Spinal Fluid Lumbar Puncture Gram Stain - Final Complete 12/26/16 17:10 Cerebral Spinal Fluid Lumbar Puncture CSF Culture - Final NO GROWTH IN 72 HOURS Complete 12/28/16 00:35 Stool Stool Stool Occult Blood (SUNDAR) - Final HEMOCCULT NEGATIVE Complete 12/28/16 17:50 Bronchial Washings Left Lower Lobe Fungal Smear Pending Received 12/28/16 17:50 Bronchial Washings Left Lower Lobe Fungal Culture Pending Received 12/28/16 17:50 Bronchial Washings Left Lower Lobe Acid Fast Stain Pending Received 12/28/16 17:50 Bronchial Washings Left Lower Lobe Mycobacterial Culture Pending Received 12/28/16 17:50 Bronchial Washings Left Lower Lobe Gram Stain Pending Received 12/28/16 17:50 Bronchial Washings Left Lower Lobe Bronchial Culture Pending Received 12/28/16 17:50 Bronchial Washings Right Lower Lobe Fungal Smear Pending Received 12/28/16 17:50 Bronchial Washings Right Lower Lobe Fungal Culture Pending Received 12/28/16 17:50 Bronchial Washings Right Lower Lobe Acid Fast Stain Pending Received 12/28/16 17:50 Bronchial Washings Right Lower Lobe Mycobacterial Culture Pending Received 12/28/16 17:50 Bronchial Washings Right Lower Lobe Gram Stain Pending Received 12/28/16 17:50 Bronchial Washings Right Lower Lobe Bronchial Culture Pending Received Administered Medications Medications (Trade) Dose Ordered Sig/Emma Route PRN Reason Start Time Stop Time Status Last Admin Dose Admin Sodium Chloride (NS Flush) 2 ml BID IV FLUSH 12/26/16 09:00 12/28/16 22:28 Ondansetron HCl (Zofran Inj) 4 mg Q6H PRN IVP NAUSEA OR VOMITING 12/25/16 23:00 12/26/16 07:12 Acetaminophen (Tylenol) 650 mg Q6H PRN PO FEVER>100.4 12/25/16 23:00 12/26/16 09:18 Morphine Sulfate (Morphine Inj) 2 mg Q3H PRN IV Pain 6-10 12/25/16 23:00 12/26/16 06:11 Benzonatate (Tessalon) 100 mg Q4H PRN PO COUGH 12/26/16 05:15 12/26/16 15:12 Albuterol/ Ipratropium (Duoneb Neb) 1 ampule Q6HR WHILE AWAKE NEB NEB 12/26/16 20:00 12/29/16 08:30 Promethazine HCl/ Codeine (Phenergan-Codeine Liq) 5 ml Q4H PRN PO COUGH 12/26/16 20:00 12/29/16 09:12 Diphenhydramine HCl (Benadryl) 25 mg Q4H PRN PO SEE LABEL COMMENTS 12/27/16 04:15 12/28/16 00:11 Acetaminophen (Tylenol) 650 mg Q4H PRN PO SEE LABEL COMMENTS 12/27/16 04:15 12/28/16 00:11 Mupirocin (Bactroban 2% Oint) 1 applic TID TOPICAL 12/27/16 14:15 12/29/16 09:24 Oxycodone HCl (Roxicodone) 5 mg Q6H PRN PO PAIN 1-10 12/27/16 14:00 12/28/16 21:56 Dextrose 1,000 ml @ 84 mls/hr [id number] IV 12/28/16 09:00 12/28/16 11:57 Pantoprazole Sodium (Protonix) 20 mg DAILY PO 12/29/16 09:00 12/29/16 09:15 Cefepime HCl 2000 mg/Sodium Chloride 100 ml @ 200 mls/hr Q12H IV 12/28/16 21:00 12/29/16 09:08 Fluconazole/ Sodium Chloride 200 ml @ 100 mls/hr Q24H IV 12/28/16 22:00 12/29/16 00:31 Azithromycin 500 mg/Sodium Chloride 250 ml @ 250 mls/hr Q24H IV 12/28/16 20:00 12/28/16 22:23 Objective Remarks GENERAL: Obese younger male resting in bed on Ventimask. SKIN: Warm and dry. Small lesion to abdominal fold and R inner thigh. HEAD: Normocephalic. EYES: No injection or drainage. NECK: Supple, trachea midline. CARDIOVASCULAR: Regular rate and rhythm RESPIRATORY: Clear anteriorly. On 50% Venti mask. GASTROINTESTINAL: Abdomen obese. Nontender to palpation. EXTREMITIES: No cyanosis NEUROLOGICAL: No obvious focal deficit. Awake, alert, and oriented x3. Assessment/Plan Problem List: (1) Pancytopenia ICD Codes: D61.818 - Other pancytopenia Plan: ++blast cells in circulation. --suspicious for underlying bone marrow disorder such as leukemia. --bone marrow biopsy, FISH studies, flow cytometry and cytogenetics ordered --logan negative --LDH/haptoglobin do not indicate hemolysis --coags normal --iron studies/B12 show no deficit --stool hemoccult negative --hepatitis and HIV negative (2) Sepsis ICD Codes: A41.9 - Sepsis, unspecified organism Status: Acute Plan: --BC no growth --CSF no growth --CT chest shows pneumonia --on Cefepime, Vanco, Fluconazole and Azithromycin. (3) Altered mental status ICD Codes: R41.82 - Altered mental status, unspecified Assessment 26 y/o male with pancytopenia. Plan 1. Tolerated BMB and bronchoscopy OK yesterday 2. Will plan to transfuse for hemoglobin less than 7.5 and platelets less than 12,000. 3. The patient will need irradiated blood products. 4. Monitor daily CBC 5. Await preliminary results of BMB. Attending Statement The exam, history, and the medical decision-making described in the above note were completed with the assistance of the mid-level provider. I reviewed and agree with the findings presented. I attest that I had a [id number] encounter with the patient on the same day, and personally performed and documented my assessment and findings in the medical record 1. 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 INV 16 - FISH/CYTOGENETICS AND FLOW CYTOMETRY pending - case discussed with pathology - patient will need induction chemotherapy with 7+3 regimen - I have discussed the diagnosis with patient and family. They are agreeable to proceeding with treatment--risks and benefits discussed. potential side- effects discussed - Obtain MUGA scan to asses for heart function prior to proceeding with anthracycline administration - Port placement by IR in am 2. Febrile Neutropenia --spiked another fever today - Repeat blood cultures X 2 12/29 - continue broad spectrum antibiotics--Vanc, Zosyn and Azithro--also on antifungal --Diflucan - Blood cultures with no growth 12/25 2. Headache/Nausea - Brain MRI negative 3 Acute Respiratory distress - s/p broch - concern for atypical infection - Possibility of leukemic infiltrates - ABGs being obtained - Bipap - IV solumedrol 40mg X 1 - Nebts - will also consider a CTA to rule out PE 4. FEN - replace electrolytes - Calcium and Phosp 5. Thrombocytopenia - no evidence of DIC - check daily coags and fibrinogen and CBC 6. Anemia - transfuse to keep Hb > 7 - will need irradiated blood products 7. Tumor Lysis Prophylaxis - Start Allopurinol 200mg PO BID - Check daily Phosp/Uric acid Robina Cui Dec 29, 2016 11:21 Joey Santoyo MD Dec 29, 2016 21:43
[2016-12-29] MEDS: MORPHINE SULFATE 4 MG/ML INJ IV PRN ×2 (12:31→15:40)
--- NOTE | 2016-12-29 16:10 | RADRPT ---
EXAM DATE/TIME: 12/29/2016 15:30 [facility] COMPARISON: CHEST SINGLE AP, December 28, 2016, 13:41. INDICATIONS : Post right sided PICC line placement. MEDICAL HISTORY : Lymphocytosis. SURGICAL HISTORY : None. ENCOUNTER: Subsequent ACUITY: 4 - 6 days PAIN SCORE: 0/10 LOCATION: Bilateral chest FINDINGS: There is a right-sided PICC line with tip in the central subclavian vein. Cardiac silhouette remains enlarged with stable diffuse interstitial and patchy airspace disease. Remainder of the exam is uncha nged. CONCLUSION: 1. Right-sided PICC line tip in the central subclavian vein. 2. Cardiomegaly with pulmonary edema pattern. Grant Jones MD on December 29, 2016 at 16:06 Board Certified Radiologist. This report was verified electronically.
[2016-12-29] MEDS: DEXTROSE 5% IN WATE 1000ML INJ 1,000 ML IV SCH ×2 (17:01→20:45)
[2016-12-29 17:41] LABS: CSF CRYPTOCOCCUS AG CONF ND (NOT DETECTD)
--- NOTE | 2016-12-29 20:02 | HHI.PR ---
Subjective Remarks Patient says he feels about the same, does report hemoptysis. D/w nursing, still requiring supplemental oxygen. No reports of any additional transfusions needed which is good since H&H was finally holding above 7 this morning. Objective Vital Signs Date Time Temp Pulse Resp B/P (MAP) Pulse Ox O2 Delivery O2 Flow Rate FiO2 12/29/16 17:44 99 Partial Rebreather 15.00 12/29/16 16:00 98.5 111 22 125/59 (81) 90 12/29/16 12:00 96.7 100 22 134/60 (84) 92 12/29/16 08:50 98.0 98 22 150/69 (96) 93 12/29/16 08:35 94 Venturi Mask 6.00 50 12/29/16 04:10 92 12/29/16 04:04 98.7 98 20 142/62 (88) 97 12/29/16 00:10 86 12/29/16 00:00 97.5 89 20 117/57 (77) 93 12/28/16 22:33 96 12/28/16 21:30 99 28 133/56 (81) 95 Venturi Mask 6 50 12/28/16 21:15 99 28 133/58 (83) 95 Venturi Mask 6 50 12/28/16 21:00 100 28 138/69 (92) 95 Venturi Mask 6 50 12/28/16 20:45 107 28 131/64 (86) 95 Venturi Mask 6 50 12/28/16 20:30 101 28 122/62 (82) 95 Venturi Mask 6 50 12/28/16 20:15 107 28 132/60 (84) 91 Venturi Mask 6 50 12/28/16 20:00 101 28 128/70 (89) 91 Venturi Mask 6 50 I/O 12/28/16 12/28/16 12/28/16 12/29/16 12/29/16 12/29/16 06:59 14:59 22:59 06:59 14:59 22:59 Intake Total 1920 ml 100 ml 800 ml 575 ml 109 ml 520 ml Output Total 900 ml 55 ml 600 ml 650 ml Balance 1020 ml 100 ml 745 ml -25 ml -541 ml 520 ml Intake Oral 240 ml IV Total 1680 ml 100 ml 500 ml 575 ml 109 ml 520 ml Other 300 ml Output Urine Total 900 ml 50 ml 600 ml 650 ml Estimated Blood Loss 5 ml # Voids 1 # Bowel Movements 1 Result Diagram: 12/29/16 0732 12/29/16 0732 Objective Remarks GENERAL: Lying in bed relatively still, awake, appears exhausted CARDIOVASCULAR: Regular rate and rhythm without murmurs, gallops, or rubs. RESPIRATORY: Posterior breath sounds demonstrate crackles bibasilarly, coughing MSCULOSKELETAL: No cyanosis, or edema. A/P Assessment and Plan 1. Neutropenic fever: Blood culture results still pending, continuing broad- spectrum antibiotics with vancomycin and cefepime, additionally on azithromycin and fluconazole per infectious disease. Fevers have not recurred for the last 24 hours. 2. hypoxia: CT scan findings suggestive of pneumonia w/ posterior infiltrates, given worsening neutropenia and PNA in young pt, pulmonology performed bronchioloalveolar lavage, cultures pending 2. normo/macrocytic anemia: Possibly secondary to undiagnosed leukemia, hematology managing 3. Pancytopenia - Hematology working up, appreciate recs. 4. GABRIELA: Resolved 5. Thrombocytopenia: ?ITP/TTP vs leukemia. Hematology consulted as above. 6. Lymphocytosis: Hematology suspects leukemia, bone marrow biopsy results pending Ean Bañuelos MD Dec 29, 2016 20:02
[2016-12-29 20:34] LABS: LYME IGG IMMUNOBLOT CSF None Detected bands (None Detected); LYME IGM IMMUNOBLOT CSF None Detected bands (None Detected)
[2016-12-29] MEDS: AZITHROMYCIN INJ 500 MG in SODIUM CHLOR 0.9% 250 ML INJ 250 ML IV SCH (20:51)
[2016-12-29 21:11] LABS: BLOOD GAS BASE EXCESS 0.3 mmol/L (-2-2); BLOOD GAS CARBOXYHEMOGLOBIN 1.7 % (0-4); BLOOD GAS HCO3 24 mmol/L (22-26); BLOOD GAS METHEMOGLOBIN 1.7 % (0-2); BLOOD GAS O2 HGB SATURATION 96 % (90-100); BLOOD GAS OXYGEN CONTENT 10.1 Vol % (12.0-20.0); BLOOD GAS PCO2 37 mmHg (38-42); BLOOD GAS PO2 178 mmHg (61-120); BLOOD GAS TOTAL HGB 7.1 G/DL (12.0-16.0); CRITICAL VALUE NO; TEMP CORR TO 98.6
[2016-12-29 21:12] LABS: DRAW SITE LT RADIAL; LITER FLOW 15 L/M; NUMBER OF ARTERIAL PUNCTURES 1; OXYGEN DEVICE PARTIAL REBREATHER; STAT YES; ULNAR PULSE PRESENT
[2016-12-29] MEDS ORDERED: methylPREDNISolone SOD SUCC 40 MG/1 ML VIAL IV PUSH ONE (21:15)
[2016-12-29] MEDS ORDERED: methylPREDNISolone SOD SUCC 125 MG/2 ML VIAL IV ONE (21:30)
[2016-12-29] MEDS: ACETAMINOPHEN 325 MG TAB PO PRN (22:30)
[2016-12-29] MEDS: ALLOPURINOL 100 MG TAB PO SCH (23:32)
[2016-12-30] VITALS (18 sets, daily range): BP systolic 117–147; BP diastolic 55–95; PULSE 71–108; RESP 18–24; TEMP 97.2–99.3; O2SAT 93–100
[2016-12-30] MEDS ORDERED: PHARMACY ORDERED LAB ONE (01:45)
[2016-12-30] MEDS: VANCOMYCIN INJ 2,000 MG in SODIUM CHLORID 0.9% 500 ML INJ 500 ML IV SCH ×2 (02:22→16:14)
[2016-12-30 07:01] LABS: MEAN CELL VOLUME 97.4 FL (80.0-100.0); MEAN CORPUSCULAR HEMOGLOBIN 33.3 PG (27.0-34.0); MEAN CORPUSCULAR HGB CONC 34.1 % (32.0-36.0); PLATELET COUNT 58 TH/MM3 (150-450); RED BLOOD COUNT 2.01 MIL/MM3 (4.50-5.90); RED CELL DISTRIBUTION WIDTH 19.9 % (11.6-17.2); WHITE BLOOD COUNT 6.4 TH/MM3 (4.0-11.0)
[2016-12-30 07:15] LABS: HEMO FLAGS AUTO DIFF
[2016-12-30 07:16] LABS: HEMATOCRIT 19.6 % (39.0-51.0)
[2016-12-30 07:22] LABS: BICARBONATE 26.9 MEQ/L (21.0-32.0); MAGNESIUM 2.3 MG/DL (1.5-2.5); POTASSIUM 4.1 MEQ/L (3.5-5.1)
[2016-12-30 07:30] LABS: INDIRECT BILIRUBIN 0.7 MG/DL (0.0-0.8); URIC ACID 4.6 MG/DL (2.6-7.2)
[2016-12-30 07:39] LABS: INTERNATIONAL NORMALIZED RATIO 1.1 RATIO; PROTHROMBIN TIME - PATIENT 11.7 SEC (9.8-11.6)
[2016-12-30] MEDS ORDERED: diphenhydrAMINE HCL 25 MG CAP PO ONE (08:30)
[2016-12-30] MEDS ORDERED: ACETAMINOPHEN 325 MG TAB PO ONE (08:30)
[2016-12-30] MEDS: ALLOPURINOL 100 MG TAB PO SCH ×2 (08:46→20:58)
[2016-12-30] MEDS: PANTOPRAZOLE SOD 20 MG DELAYED RELEASE TAB PO SCH (08:47)
[2016-12-30] MEDS: PROMETHAZINE/CODEINE 6.25 MG/10 MG/5 ML CUP PO PRN ×3 (08:49→20:58)
[2016-12-30] MEDS: MUPIROCIN 2% OINT 22 GM TUBE TOPICAL SCH ×3 (08:52→18:00)
[2016-12-30] MEDS: DOCUSATE SODIUM 50 MG/SENNA 8.6 MG TAB PO SCH ×2 (08:52→21:00)
[2016-12-30] MEDS: Hickman Catheter Daily NS Lock Flush IV FLUSH SCH (08:52)
[2016-12-30] MEDS: SODIUM CHLORIDE 0.9% FLUSH 10 ML FLUSH IV FLUSH SCH ×2 (08:52→21:00)
[2016-12-30] MEDS: RESP: ALBUTEROL 2.5 MG/IPRATROPIUM 0.5 MG NEB (SCH) NEB ×2 (09:15→13:26)
[2016-12-30 09:19] LABS: BLASTS 10 % (0-0); MYELOCYTES 2 % (0-0); NEUTROPHIL # MANUAL DIFF 0.4 TH/MM3 (1.8-7.7); PLATELET ESTIMATE SMEAR LOW (NORMAL); PLATELET MORPHOLOGY NORMAL (NORMAL); POLYS (SEG NEUTROPHILS) 4 % (16-70); SCAN/DIFF FINAL DIFF MANUAL; WBC DIFF SAMPLE 100
[2016-12-30] MEDS ORDERED: methylPREDNISolone SOD SUCC 40 MG/1 ML VIAL IV PUSH ONE (10:00)
--- NOTE | 2016-12-30 10:24 | PD.ONC.PN ---
Subjective Subjective Remarks Tmax 101.7 at 8pm last night Reports that he does not feel SOB but his O2 sats drop when O2 decreased. Currently on a partial NRB Ready to start chemo after banking sperm. Objective Data Date Time Temp Pulse Resp B/P (MAP) Pulse Ox O2 Delivery O2 Flow Rate FiO2 12/30/16 09:31 97 Partial Rebreather 10.00 12/30/16 09:19 97 Partial Rebreather 10.00 12/30/16 08:19 82 12/30/16 08:00 97.6 82 20 129/60 (83) 96 12/30/16 04:13 99 50 12/30/16 04:01 71 12/30/16 04:00 97.4 76 20 121/59 (79) 99 12/30/16 00:05 97 12/30/16 00:00 99.3 108 18 117/55 (75) 99 12/29/16 23:45 95 50 12/29/16 23:45 95 BiPAP/CPAP 50 12/29/16 21:15 100 Partial Rebreather 15.00 12/29/16 20:14 107 12/29/16 20:00 101.7 109 20 117/72 (87) 100 12/29/16 17:44 99 Partial Rebreather 15.00 12/29/16 16:00 98.5 111 22 125/59 (81) 90 12/29/16 12:00 96.7 100 22 134/60 (84) 92 12/30/16 12/30/16 12/30/16 06:59 14:59 22:59 Intake Total 890 ml Balance 890 ml Result Diagram: 12/30/16 0450 12/30/16 0450 Laboratory Results Laboratory Tests Test 12/29/16 20:55 12/29/16 22:15 12/30/16 02:00 12/30/16 04:50 Blood Gas Puncture Site LT RADIAL Blood Gas Patient Temperature 98.6 Blood Gas HCO3 24 mmol/L Blood Gas Base Excess 0.3 mmol/L Blood Gas Oxygen Saturation 96 % Arterial Blood pH 7.43 Arterial Blood Partial Pressure CO2 37 mmHg Arterial Blood Partial Pressure O2 178 mmHg Arterial Blood Oxygen Content 10.1 Vol % Arterial Blood Carboxyhemoglobin 1.7 % Arterial Blood Methemoglobin 1.7 % Blood Gas Hemoglobin 7.1 G/DL Oxygen Delivery Device PARTIAL REBREATHER Blood Gas Liter Flow 15 L/M Uric Acid 4.7 MG/DL 4.6 MG/DL Vancomycin Level Trough 8.6 MCG/ML White Blood Count 6.4 TH/MM3 Red Blood Count 2.01 MIL/MM3 Hemoglobin 6.7 GM/DL Hematocrit 19.6 % Mean Corpuscular Volume 97.4 FL Mean Corpuscular Hemoglobin 33.3 PG Mean Corpuscular Hemoglobin Concent 34.1 % Red Cell Distribution Width 19.9 % Platelet Count 58 TH/MM3 Mean Platelet Volume 7.1 FL CBC Comment AUTO DIFF Differential Total Cells Counted 100 Neutrophils % (Manual) 4 % Lymphocytes % 43 % Monocytes % 41 % Neutrophils # (Manual) 0.4 TH/MM3 Myelocytes 2 % Differential Comment FINAL DIFF MANUAL Blastocytes 10 % Platelet Estimate LOW Platelet Morphology Comment NORMAL Prothrombin Time 11.7 SEC Prothromb Time International Ratio 1.1 RATIO Fibrinogen 481 mg/dL Blood Urea Nitrogen 13 MG/DL Creatinine 0.85 MG/DL Random Glucose 136 MG/DL Total Protein 7.2 GM/DL Albumin 2.7 GM/DL Calcium Level 7.9 MG/DL Phosphorus Level 2.9 MG/DL Magnesium Level 2.3 MG/DL Alkaline Phosphatase 36 U/L Aspartate Amino Transf (AST/SGOT) 11 U/L Alanine Aminotransferase (ALT/SGPT) 19 U/L Lactate Dehydrogenase 327 U/L Total Bilirubin 1.0 MG/DL Direct Bilirubin 0.3 MG/DL Sodium Level 139 MEQ/L Potassium Level 4.1 MEQ/L Chloride Level 106 MEQ/L Carbon Dioxide Level 26.9 MEQ/L Anion Gap 6 MEQ/L Estimat Glomerular Filtration Rate 111 ML/MIN Indirect Bilirubin 0.7 MG/DL Culture Results Microbiology Date/Time Source Procedure Growth Status 12/29/16 22:47 Blood Peripheral Aerobic Blood Culture Pending Received 12/29/16 22:47 Blood Peripheral Anaerobic Blood Culture Pending Received 12/29/16 22:15 Blood Line Aerobic Blood Culture Pending Received 12/29/16 22:15 Blood Line Anaerobic Blood Culture Pending Received 12/28/16 00:35 Stool Stool Stool Occult Blood (SUNDAR) - Final HEMOCCULT NEGATIVE Complete 12/28/16 17:50 Bronchial Washings Left Lower Lobe Fungal Smear - Final NO FUNGAL ELEMENTS SEEN. Resulted 12/28/16 17:50 Bronchial Washings Left Lower Lobe Fungal Culture Pending Resulted 12/28/16 17:50 Bronchial Washings Left Lower Lobe Acid Fast Stain Pending Received 12/28/16 17:50 Bronchial Washings Left Lower Lobe Mycobacterial Culture Pending Received 12/28/16 17:50 Bronchial Washings Left Lower Lobe Gram Stain - Final Resulted 12/28/16 17:50 Bronchial Washings Left Lower Lobe Bronchial Culture - Preliminary LIGHT GROWTH NORMAL RESPIRATORY BLADE... Resulted 12/28/16 17:50 Bronchial Washings Right Lower Lobe Fungal Smear - Final NO FUNGAL ELEMENTS SEEN. Resulted 12/28/16 17:50 Bronchial Washings Right Lower Lobe Fungal Culture Pending Resulted 12/28/16 17:50 Bronchial Washings Right Lower Lobe Acid Fast Stain Pending Received 12/28/16 17:50 Bronchial Washings Right Lower Lobe Mycobacterial Culture Pending Received 12/28/16 17:50 Bronchial Washings Right Lower Lobe Gram Stain - Final Resulted 12/28/16 17:50 Bronchial Washings Right Lower Lobe Bronchial Culture - Preliminary LIGHT GROWTH NORMAL RESPIRATORY BLADE... Resulted Administered Medications Medications (Trade) Dose Ordered Sig/Emma Route PRN Reason Start Time Stop Time Status Last Admin Dose Admin Sodium Chloride (NS Flush) 2 ml UNSCH PRN IV FLUSH FLUSH AFTER USING IV ACCESS 12/25/16 23:00 12/30/16 04:59 Sodium Chloride (NS Flush) 2 ml BID IV FLUSH 12/26/16 09:00 12/29/16 23:00 Ondansetron HCl (Zofran Inj) 4 mg Q6H PRN IVP NAUSEA OR VOMITING 12/25/16 23:00 12/26/16 07:12 Acetaminophen (Tylenol) 650 mg Q6H PRN PO FEVER>100.4 12/25/16 23:00 12/29/16 22:30 Morphine Sulfate (Morphine Inj) 2 mg Q3H PRN IV Pain 6-10 12/25/16 23:00 12/29/16 15:40 Benzonatate (Tessalon) 100 mg Q4H PRN PO COUGH 12/26/16 05:15 12/26/16 15:12 Albuterol/ Ipratropium (Duoneb Neb) 1 ampule Q6HR WHILE AWAKE NEB NEB 12/26/16 20:00 12/30/16 09:15 Promethazine HCl/ Codeine (Phenergan-Codeine Liq) 5 ml Q4H PRN PO COUGH 12/26/16 20:00 12/30/16 08:49 Diphenhydramine HCl (Benadryl) 25 mg Q4H PRN PO SEE LABEL COMMENTS 12/27/16 04:15 12/28/16 00:11 Acetaminophen (Tylenol) 650 mg Q4H PRN PO SEE LABEL COMMENTS 12/27/16 04:15 12/28/16 00:11 Mupirocin (Bactroban 2% Oint) 1 applic TID TOPICAL 12/27/16 14:15 12/30/16 08:52 Oxycodone HCl (Roxicodone) 5 mg Q6H PRN PO PAIN 1-10 12/27/16 14:00 12/28/16 21:56 Dextrose 1,000 ml @ 84 mls/hr [id number] IV 12/28/16 09:00 12/29/16 17:01 Pantoprazole Sodium (Protonix) 20 mg DAILY PO 12/29/16 09:00 12/30/16 08:47 Fluconazole/ Sodium Chloride 200 ml @ 100 mls/hr Q24H IV 12/28/16 22:00 12/29/16 23:33 Azithromycin 500 mg/Sodium Chloride 250 ml @ 250 mls/hr Q24H IV 12/28/16 20:00 12/29/16 20:51 Vancomycin HCl 2000 mg/Sodium Chloride 520 ml @ 260 mls/hr Q12H IV 12/29/16 14:00 12/30/16 02:22 Allopurinol (Zyloprim) 200 mg BID PO 12/29/16 22:00 12/30/16 08:46 Cefepime HCl 2000 mg/Sodium Chloride 100 ml @ 200 mls/hr Q12H IV 12/29/16 23:00 12/29/16 22:59 Objective Remarks GENERAL: Obese younger male resting in chair at bedside on partial NRB. Brother at bedside. SKIN: Warm and dry. Small lesion to abdominal fold and R inner thigh. HEAD: Normocephalic. EYES: No injection or drainage. NECK: Supple, trachea midline. CARDIOVASCULAR: Regular rate and rhythm RESPIRATORY: Clear posteriorly. On partial NRB. GASTROINTESTINAL: Abdomen obese. Nontender to palpation. EXTREMITIES: No cyanosis. No edema. NEUROLOGICAL: No obvious focal deficit. Awake, alert, and oriented x3. 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 - Acute myeloblastic leukemia, not having achieved remission Plan: -- Preliminary BMB showed 50% blasts -- Cytogenetics pending -- Will start induction chemotherapy with Daunorubicin + Cytarabine (7+3) (2) Neutropenia ICD Codes: D70.9 - Neutropenia, unspecified Status: Acute Plan: -- ID following -- On Cefepime, Vanco, Azithromycin and Fluconazole -- BC on 12/25 = no growth. -- Bronchoscopy on 12/28= no growth. -- BC on 12/29= pending. Assessment 26 y/o male with no major past medical history who was brought in for headache, confusion and cough. Plan 1. Patient will get [id number] and MUGA scan today. 2. Preliminary results of bone marrow biopsy showed 50% blasts in bone marrow consistent with acute myelogenous leukemia. 3. We will plan to begin induction chemotherapy later this afternoon or possibly tomorrow morning. 4. 40 mg IV soluMedrol ordered for this am. It is possible that his respiratory decline is due to leukemic infiltration, and not infection. 5. Await cytogenetics to determine prognosis. Attending Statement The exam, history, and the medical decision-making described in the above note were completed with the assistance of the mid-level provider. I reviewed and agree with the findings presented. I attest that I had a [id number] encounter with the patient on the same day, and personally performed and documented my assessment and findings in the medical record 1. Acute Myeloid Leukemia with approximately 70% blasts in Bone marrow. 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 They are agreeable to proceeding with treatment--risks and benefits discussed. potential side- effects discussed - MUGA scan shows normal EF and no wall motion abnormalities - Re-attempt Port placement by IR. - Induction chemotherapy to begin 12/31 - Patient wishes to have sperm banking prior to starting chemotherapy 2. Febrile Neutropenia -- - agree with d/c Vanc, continue cefipime and Azithro--also on diflucan - Repeat blood cultures X 2 12/29- no growth - Blood cultures with no growth 12/25 2. Headache/Nausea - Brain MRI negative 3 Acute Respiratory distress - improvement today - s/p broch - concern for atypical infection - Possibility of leukemic infiltrates--can be seen in AML M4 - IV solumedrol 40mg X 1 agin today - Nebts 4. FEN - replace electrolytes - Calcium and Phosp daily 5. Thrombocytopenia - no evidence of DIC - check daily coags and fibrinogen and CBC 6. Anemia - transfuse to keep Hb > 7 - will need irradiated blood products - 1 unit today 7. Tumor Lysis Prophylaxis - Start Allopurinol 200mg PO BID - Check daily Phosp/Uric acid case d.w Dr. hernandez radiology d.w rn Problem Qualifiers (1) Neutropenia: Robina Cui Dec 30, 2016 10:24 Joey Santoyo MD Dec 31, 2016 00:45
[2016-12-30] MEDS ORDERED: ceFAZolin 2 GM PREMIX 50 ML IV SCH (10:30)
[2016-12-30] MEDS: CEFEPIME INJ 2,000 MG in SODIUM CHLORIDE 0.9% INJ 100 ML IV SCH ×2 (10:37→23:06)
--- NOTE | 2016-12-30 15:09 | RADRPT ---
EXAM DATE/TIME: 12/30/2016 13:16 CORRECTION Corrected on: December 31, 2016; ADDED PROJECTIONS:VINOD AND LPO [facility] COMPARISON: No previous studies available for comparison. INDICATIONS : Use of anthracyclines. Chemotherapy. DOSE: 21.3 mCi Tc99m Ultratag labeled red blood cells IV PROJECTIONS: VINOD AND LPO EF: 56% MEDICAL HISTORY : None SURGICAL HISTORY : None. ENCOUNTER: Initial ACUITY: 1 week PAIN SCALE: 1/10 LOCATION: Whole body. TECHNIQUE: Following the modified in Amplitude labeling of autologous red blood cells and reinjection, planar image s gated to the ECG cycle were obtained in specified projections. Fourier analysis and calculation of ejection fraction were performed. FINDINGS: CHAMBER-SIZE: There is normal size and configuration to the left ventricle, right ventricle, and atria. WALL MOTION: No wall motion abnormalities seen. No segmental hypokinesia is observed. MISCELLANEOUS: No abnormal accumulation of red cells is seen. CONCLUSION: Negative exam. Calculated ejection fraction of 56% with adequate wall motion throughout. Bean Dugan MD on December 30, 2016 at 15:06 Board Certified Radiologist. This report was verified electronically.
[2016-12-30 17:52] LABS: B. BURGDORFERI DNA PCR CSF NOT DETECTED (NOT DETECTE)
--- NOTE | 2016-12-30 18:21 | HHI.PR ---
Subjective Remarks Patient says he feels about the same, does report hemoptysis. still requiring supplemental oxygen. Had another fever last night > 101. h/h dropped again last night. . Went for port placement this morning but staff had concern of severe orthopnea so was aborted at the time as pt was requiring 6 L just sitting up.Pt says he's in less pain. Objective Vital Signs Date Time Temp Pulse Resp B/P (MAP) Pulse Ox O2 Delivery O2 Flow Rate FiO2 12/30/16 15:00 98.1 85 20 123/62 98 12/30/16 12:00 98.4 86 18 147/65 (92) 98 12/30/16 11:48 97.3 85 22 127/60 100 12/30/16 11:31 97.9 82 24 124/56 98 12/30/16 11:00 88 12/30/16 09:31 97 Partial Rebreather 10.00 12/30/16 09:19 97 Partial Rebreather 10.00 12/30/16 08:19 82 12/30/16 08:00 97.6 82 20 129/60 (83) 96 12/30/16 04:13 99 50 12/30/16 04:01 71 12/30/16 04:00 97.4 76 20 121/59 (79) 99 12/30/16 00:05 97 12/30/16 00:00 99.3 108 18 117/55 (75) 99 12/29/16 23:45 95 50 12/29/16 23:45 95 BiPAP/CPAP 50 12/29/16 21:15 100 Partial Rebreather 15.00 12/29/16 20:14 107 12/29/16 20:00 101.7 109 20 117/72 (87) 100 I/O 12/29/16 12/29/16 12/29/16 12/30/16 12/30/16 12/30/16 06:59 14:59 22:59 06:59 14:59 22:59 Intake Total 575 ml 109 ml 740 ml 890 ml 300 ml Output Total 600 ml 650 ml Balance -25 ml -541 ml 740 ml 890 ml 300 ml IV Total 575 ml 109 ml 740 ml 890 ml Packed Cells 250 ml Blood Product IV Normal Saline Flush 50 ml Output Urine Total 600 ml 650 ml Result Diagram: 12/30/1644912/30/16449 Objective Remarks GENERAL: Lying in bed relatively still, awake, appears exhausted CARDIOVASCULAR: Regular rate and rhythm without murmurs, gallops, or rubs. RESPIRATORY: Posterior breath sounds demonstrate crackles bibasilarly, not coughing today MSCULOSKELETAL: No cyanosis, or edema. A/P Assessment and Plan 1. Neutropenic fever: Blood culture NGTD, CSF NGTD, , continuing broad- spectrum antibiotics with vancomycin and cefepime, additionally on azithromycin and fluconazole per infectious disease. Fevers have not recurred for the last 24 hours. 2. hypoxia: CT scan findings suggestive of pneumonia w/ posterior infiltrates, given worsening neutropenia and PNA in young pt, pulmonology performed bronchioloalveolar lavage, cultures pending 2. normo/macrocytic anemia: Possibly secondary to undiagnosed leukemia, hematology managing 3. Pancytopenia - Hematology proceeding with induction therapy. 4. GABRIELA: Resolved 5. Thrombocytopenia: ?ITP/TTP vs leukemia. Hematology consulted as above. 6. Lymphocytosis: Hematology suspects leukemia, bone marrow biopsy results pending Ean Bañuelos MD Dec 30, 2016 18:20
[2016-12-30 19:53] LABS: CALIFORNIA ENCEPH AB IGG <1:4 (<1:4); CALIFORNIA ENCEPH AB IGM <1:4 (<1:4); EAST EQUINE ENCEPH AB IGG <1:4 (<1:4); EAST EQUINE ENCEPH AB IGM <1:4 (<1:4); ST LOUIS ENCEPH AB IGG <1:4 (<1:4); ST LOUIS ENCEPH AB IGM <1:4 (<1:4)
--- NOTE | 2016-12-30 19:59 | HHI.IDPN ---
Subjective Subjective Remarks doing better pt was on NRB, but now is on 6 L of NC O2 OOB in chair no heoptyssis denies hemoptysis prior to brnch all BAL clx are negative so far Fever up to 101.7 x 1 gropwing just nl resp clara Antibiotics azitho cefepime vanco fluconazol Allergies: Coded Allergies: No Known Allergies (Verified , 12/25/16) Objective . Vital Signs Date Time Temp Pulse Resp B/P (MAP) Pulse Ox O2 Delivery O2 Flow Rate FiO2 12/30/16 18:00 97.2 89 20 147/95 (112) 97 12/30/16 15:00 98.1 85 20 123/62 98 12/30/16 12:00 98.4 86 18 147/65 (92) 98 12/30/16 11:48 97.3 85 22 127/60 100 12/30/16 11:31 97.9 82 24 124/56 98 12/30/16 11:00 88 12/30/16 09:31 97 Partial Rebreather 10.00 12/30/16 09:19 97 Partial Rebreather 10.00 12/30/16 08:19 82 12/30/16 08:00 97.6 82 20 129/60 (83) 96 12/30/16 04:13 99 50 12/30/16 04:01 71 12/30/16 04:00 97.4 76 20 121/59 (79) 99 12/30/16 00:05 97 12/30/16 00:00 99.3 108 18 117/55 (75) 99 12/29/16 23:45 95 50 12/29/16 23:45 95 BiPAP/CPAP 50 12/29/16 21:15 100 Partial Rebreather 15.00 12/29/16 20:14 107 12/29/16 20:00 101.7 109 20 117/72 (87) 100 12/30/16 12/30/16 12/31/16 15:00 23:00 07:00 Intake Total 300 ml 480 ml Balance 300 ml 480 ml Intake Oral 480 ml Packed Cells 250 ml Blood Product IV Normal Saline Flush 50 ml # Voids 3 # Bowel Movements 0 . Laboratory Tests Test 12/29/16 07:32 12/30/16 04:50 White Blood Count 9.6 TH/MM3 6.4 TH/MM3 Red Blood Count 2.28 MIL/MM3 2.01 MIL/MM3 Hemoglobin 7.6 GM/DL 6.7 GM/DL Hematocrit 22.0 % 19.6 % Mean Corpuscular Volume 96.5 FL 97.4 FL Mean Corpuscular Hemoglobin 33.4 PG 33.3 PG Mean Corpuscular Hemoglobin Concent 34.6 % 34.1 % Red Cell Distribution Width 20.9 % 19.9 % Platelet Count 61 TH/MM3 58 TH/MM3 Mean Platelet Volume 7.1 FL 7.1 FL CBC Comment AUTO DIFF AUTO DIFF Differential Total Cells Counted 100 100 Neutrophils % (Manual) 19 % 4 % Lymphocytes % 37 % 43 % Monocytes % 34 % 41 % Neutrophils # (Manual) 1.8 TH/MM3 0.4 TH/MM3 Differential Comment FINAL DIFF MANUAL FINAL DIFF MANUAL Blastocytes 10 % 10 % Platelet Estimate LOW LOW Platelet Morphology Comment NORMAL NORMAL Ovalocytes 1+ Myelocytes 2 % Laboratory Tests Test 12/29/16 07:32 12/29/16 22:15 12/30/16 04:50 Blood Urea Nitrogen 13 MG/DL 13 MG/DL Creatinine 0.94 MG/DL 0.85 MG/DL Random Glucose 88 MG/DL 136 MG/DL Total Protein 7.1 GM/DL 7.2 GM/DL Albumin 2.6 GM/DL 2.7 GM/DL Calcium Level 8.1 MG/DL 7.9 MG/DL Alkaline Phosphatase 33 U/L 36 U/L Aspartate Amino Transf (AST/SGOT) 16 U/L 11 U/L Alanine Aminotransferase (ALT/SGPT) 16 U/L 19 U/L Lactate Dehydrogenase 359 U/L 327 U/L Total Bilirubin 0.8 MG/DL 1.0 MG/DL Direct Bilirubin 0.2 MG/DL 0.3 MG/DL Sodium Level 141 MEQ/L 139 MEQ/L Potassium Level 3.5 MEQ/L 4.1 MEQ/L Chloride Level 108 MEQ/L 106 MEQ/L Carbon Dioxide Level 26.5 MEQ/L 26.9 MEQ/L Anion Gap 7 MEQ/L 6 MEQ/L Estimat Glomerular Filtration Rate 99 ML/MIN 111 ML/MIN Indirect Bilirubin 0.6 MG/DL 0.7 MG/DL Uric Acid 4.7 MG/DL 4.6 MG/DL Phosphorus Level 2.9 MG/DL Magnesium Level 2.3 MG/DL Microbiology Date/Time Source Procedure Growth Status 12/29/16 22:47 Blood Peripheral Aerobic Blood Culture Pending Received 12/29/16 22:47 Blood Peripheral Anaerobic Blood Culture Pending Received 12/29/16 22:15 Blood Line Aerobic Blood Culture - Preliminary NO GROWTH IN 1 DAY Resulted 12/29/16 22:15 Blood Line Anaerobic Blood Culture - Preliminary NO GROWTH IN 1 DAY Resulted 12/28/16 00:35 Stool Stool Stool Occult Blood (SUNDAR) - Final HEMOCCULT NEGATIVE Complete 12/28/16 17:50 Bronchial Washings Left Lower Lobe Fungal Smear - Final NO FUNGAL ELEMENTS SEEN. Resulted 12/28/16 17:50 Bronchial Washings Left Lower Lobe Fungal Culture Pending Resulted 12/28/16 17:50 Bronchial Washings Left Lower Lobe Acid Fast Stain - Final NO ACID FAST BACILLI SEEN Resulted 12/28/16 17:50 Bronchial Washings Left Lower Lobe Mycobacterial Culture Pending Resulted 12/28/16 17:50 Bronchial Washings Left Lower Lobe Gram Stain - Final Complete 12/28/16 17:50 Bronchial Washings Left Lower Lobe Bronchial Culture - Final MODERATE GROWTH NORMAL RESPIRATORY CLARA Complete 12/28/16 17:50 Bronchial Washings Right Lower Lobe Fungal Smear - Final NO FUNGAL ELEMENTS SEEN. Resulted 12/28/16 17:50 Bronchial Washings Right Lower Lobe Fungal Culture Pending Resulted 12/28/16 17:50 Bronchial Washings Right Lower Lobe Acid Fast Stain - Final NO ACID FAST BACILLI SEEN Resulted 12/28/16 17:50 Bronchial Washings Right Lower Lobe Mycobacterial Culture Pending Resulted 12/28/16 17:50 Bronchial Washings Right Lower Lobe Gram Stain - Final Complete 12/28/16 17:50 Bronchial Washings Right Lower Lobe Bronchial Culture - Final MODERATE GROWTH NORMAL RESPIRATORY CLARA Complete Imaging Last Impressions [facility] 12/30/16 0000 Signed Impressions: Service Date/Time: Friday, December 30, 2016 13:16 - CONCLUSION: Negative exam. Calculated ejection fraction of 56%% with adequate wall motion throughout. Bean Dugan MD Chest X-Ray 12/29/16 0000 Signed Impressions: Service Date/Time: Thursday, December 29, 2016 15:30 - CONCLUSION: 1. Right- sided PICC line tip in the central subclavian vein. 2. Cardiomegaly with pulmonary edema pattern. Grant Jones MD Bone Biopsy CT 12/28/16 Signed Impressions: Service Date/Time: Wednesday, December 28, 2016 16:53 - CONCLUSION: 1. Uncomplicated CT guided bone marrow aspirate. 2. Uncomplicated CT guided bone marrow biopsy. Grant Jones MD Brain MRI 12/27/16 Signed Impressions: Service Date/Time: Tuesday, December 27, 2016 21:58 - CONCLUSION: Unremarkable study. Patricia Contreras MD Abdomen/Pelvis CT 12/27/16 Signed Impressions: Service Date/Time: Tuesday, December 27, 2016 22:47 - CONCLUSION: 1. Basilar dependent airspace consolidation in both lungs most characteristic of pneumonia or aspiration. 2. Low attenuation lesion posterior spleen, possibly small infarct or hemangioma. No adenopathy within the abdomen and pelvis. Leander Fiore MD Lumbar Puncture Fluoroscopy 12/26/16 Signed Impressions: Service Date/Time: Monday, December 26, 2016 17:03 - CONCLUSION: Uncomplicated fluoroscopically guided lumbar puncture with pressures as above. Nilson Bonner MD Chest CT 12/26/16 Signed Impressions: Service Date/Time: Monday, December 26, 2016 17:45 - CONCLUSION: Bibasilar air space process characteristic of pneumonia. Patricia Contreras MD Head CT 12/25/161940 Signed Impressions: Service Date/Time: Sunday, December 25, 2016 19:50 - CONCLUSION: Negative noncontrast head CT. Audie Maria MD Physical Exam CONSTITUTIONAL/GENERAL: This is a morbidly obese patient, in no distress. OOB in chair TUBES/LINES/DRAINS: SKIN: No jaundice, rashes, or lesions. HEAD: Atraumatic. Normocephalic. EYES: Pupils equal and round and reactive. Extraocular motions intact. No scleral icterus. No injection or drainage. Fundi not examined. ENT: Hearing grossly normal. Nose without bleeding or purulent drainage. CARDIOVASCULAR: Regular rate and rhythm without murmurs, gallops, or rubs. No JVD. Peripheral pulses symmetric. Well perfused perifery RESPIRATORY/CHEST: Symmetric, unlabored respirations. Clear to auscultation. Breath sounds equal bilaterally. No wheezes, rales, or rhonchi. GASTROINTESTINAL: Abdomen soft, non-tender, nondistended. No hepato-splenomegaly , or palpable masses. No guarding. Bowel sounds present. MUSCULOSKELETAL: Extremities without clubbing, cyanosis, or edema. NEUROLOGICAL: Awake and alert. 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
[2016-12-30] MEDS: DEXTROSE 5% IN WATE 1000ML INJ 1,000 ML IV SCH (21:05)
[2016-12-30] MEDS: AZITHROMYCIN INJ 500 MG in SODIUM CHLOR 0.9% 250 ML INJ 250 ML IV SCH (21:07)
[2016-12-30] MEDS: FLUCONAZOLE 400 MG PREMIX BAG 200 ML IV SCH (23:06)
[2016-12-30 23:52] LABS: VDRL CSF NON-REACTIVE (NON-REACTVE)
[2016-12-31] VITALS (14 sets, daily range): BP systolic 121–145; BP diastolic 58–73; PULSE 69–93; RESP 16–20; TEMP 96.7–98.5; O2SAT 93–97
[2016-12-31] MEDS: PROMETHAZINE/CODEINE 6.25 MG/10 MG/5 ML CUP PO PRN ×4 (03:26→17:09)
[2016-12-31] MEDS ORDERED: methylPREDNISolone SOD SUCC 40 MG/1 ML VIAL IM SCH (07:00)
[2016-12-31] MEDS: MUPIROCIN 2% OINT 22 GM TUBE TOPICAL SCH ×3 (08:10→18:00)
[2016-12-31] MEDS: PANTOPRAZOLE SOD 20 MG DELAYED RELEASE TAB PO SCH (08:10)
[2016-12-31] MEDS: ALLOPURINOL 100 MG TAB PO SCH ×2 (08:10→21:09)
[2016-12-31] MEDS: DOCUSATE SODIUM 50 MG/SENNA 8.6 MG TAB PO SCH ×2 (08:12→21:00)
[2016-12-31] MEDS: SODIUM CHLORIDE 0.9% FLUSH 10 ML FLUSH IV FLUSH SCH ×2 (08:14→22:37)
[2016-12-31 10:05] LABS: HEMATOCRIT 22.1 % (39.0-51.0); MEAN CORPUSCULAR HEMOGLOBIN 32.5 PG (27.0-34.0); MEAN CORPUSCULAR HGB CONC 34.2 % (32.0-36.0); PLATELET COUNT 62 TH/MM3 (150-450); RED BLOOD COUNT 2.33 MIL/MM3 (4.50-5.90); RED CELL DISTRIBUTION WIDTH 18.6 % (11.6-17.2); WHITE BLOOD COUNT 13.3 TH/MM3 (4.0-11.0)
[2016-12-31 10:14] LABS: HEMO FLAGS AUTO DIFF
[2016-12-31 10:17] LABS: INTERNATIONAL NORMALIZED RATIO 1.1 RATIO; PROTHROMBIN TIME - PATIENT 11.9 SEC (9.8-11.6)
[2016-12-31 10:27] LABS: ANION GAP 5 MEQ/L (5-15); AST (GOT) 12 U/L (15-37); BICARBONATE 25.7 MEQ/L (21.0-32.0); BLOOD UREA NITROGEN 15 MG/DL (7-18); CHLORIDE 108 MEQ/L (98-107); GLOMERULAR FILTRATION RATE 130 ML/MIN (>89); MAGNESIUM 2.6 MG/DL (1.5-2.5); POTASSIUM 3.9 MEQ/L (3.5-5.1); SODIUM (NA) 139 MEQ/L (136-145)
[2016-12-31 10:33] LABS: ALKALINE PHOSPHATASE 33 U/L (45-117); ALT (GPT) 27 U/L (12-78); TOTAL BILIRUBIN ADULT 0.8 MG/DL (0.2-1.0); URIC ACID 3.1 MG/DL (2.6-7.2)
[2016-12-31 11:22] LABS: BLASTS 10 % (0-0); POLYS (SEG NEUTROPHILS) 15 % (16-70); WBC DIFF SAMPLE 100
[2016-12-31 11:27] LABS: OVALOCYTES 1+ (NORMAL)
[2016-12-31 11:28] LABS: PLATELET ESTIMATE SMEAR LOW (NORMAL); PLATELET MORPHOLOGY NORMAL (NORMAL); SCAN/DIFF FINAL DIFF MANUAL
--- NOTE | 2016-12-31 12:20 | PD.ONC.PN ---
Subjective Subjective Remarks Afebrile. Going down for infusaport today Breathing much better, on 5L NC Objective Data Date Time Temp Pulse Resp B/P (MAP) Pulse Ox O2 Delivery O2 Flow Rate FiO2 12/31/16 08:00 98.2 82 18 137/63 (87) 94 12/31/16 07:56 74 12/31/16 04:00 76 12/31/16 04:00 97.0 84 18 136/67 (90) 93 12/31/16 00:00 96.7 89 18 132/65 (87) 97 12/31/16 00:00 69 12/30/16 20:49 93 Nasal Cannula 6.00 12/30/16 20:40 93 12/30/16 20:00 97.3 93 18 144/67 (92) 94 12/30/16 18:00 97.2 89 20 147/95 (112) 97 12/30/16 15:00 98.1 85 20 123/62 98 12/31/16 12/31/16 12/31/16 07:00 15:00 23:00 Intake Total 450 ml Output Total 1300 ml Balance -850 ml Result Diagram: 12/31/1612 12/31/16 0912 Laboratory Results Laboratory Tests Test 12/31/16 09:12 White Blood Count 13.3 TH/MM3 Red Blood Count 2.33 MIL/MM3 Hemoglobin 7.6 GM/DL Hematocrit 22.1 % Mean Corpuscular Volume 95.0 FL Mean Corpuscular Hemoglobin 32.5 PG Mean Corpuscular Hemoglobin Concent 34.2 % Red Cell Distribution Width 18.6 % Platelet Count 62 TH/MM3 Mean Platelet Volume 7.0 FL CBC Comment AUTO DIFF Prothrombin Time 11.9 SEC Prothromb Time International Ratio 1.1 RATIO Fibrinogen 413 mg/dL Blood Urea Nitrogen 15 MG/DL Creatinine 0.74 MG/DL Random Glucose 109 MG/DL Total Protein 7.2 GM/DL Albumin 2.8 GM/DL Calcium Level 7.6 MG/DL Phosphorus Level 2.5 MG/DL Magnesium Level 2.6 MG/DL Uric Acid 3.1 MG/DL Alkaline Phosphatase 33 U/L Aspartate Amino Transf (AST/SGOT) 12 U/L Alanine Aminotransferase (ALT/SGPT) 27 U/L Total Bilirubin 0.8 MG/DL Sodium Level 139 MEQ/L Potassium Level 3.9 MEQ/L Chloride Level 108 MEQ/L Carbon Dioxide Level 25.7 MEQ/L Anion Gap 5 MEQ/L Estimat Glomerular Filtration Rate 130 ML/MIN Culture Results Microbiology Date/Time Source Procedure Growth Status 12/29/16 22:47 Blood Peripheral Aerobic Blood Culture - Preliminary NO GROWTH IN 1 DAY Resulted 12/29/16 22:47 Blood Peripheral Anaerobic Blood Culture - Preliminary NO GROWTH IN 1 DAY Resulted 12/29/16 22:15 Blood Line Aerobic Blood Culture - Preliminary NO GROWTH IN 2 DAYS Resulted 12/29/16 22:15 Blood Line Anaerobic Blood Culture - Preliminary NO GROWTH IN 2 DAYS Resulted 12/28/16 17:50 Bronchial Washings Left Lower Lobe Fungal Smear - Final NO FUNGAL ELEMENTS SEEN. Resulted 12/28/16 17:50 Bronchial Washings Left Lower Lobe Fungal Culture Pending Resulted 12/28/16 17:50 Bronchial Washings Left Lower Lobe Acid Fast Stain - Final NO ACID FAST BACILLI SEEN Resulted 12/28/16 17:50 Bronchial Washings Left Lower Lobe Mycobacterial Culture Pending Resulted 12/28/16 17:50 Bronchial Washings Left Lower Lobe Gram Stain - Final Complete 12/28/16 17:50 Bronchial Washings Left Lower Lobe Bronchial Culture - Final MODERATE GROWTH NORMAL RESPIRATORY BLADE Complete 12/28/16 17:50 Bronchial Washings Right Lower Lobe Fungal Smear - Final NO FUNGAL ELEMENTS SEEN. Resulted 12/28/16 17:50 Bronchial Washings Right Lower Lobe Fungal Culture Pending Resulted 12/28/16 17:50 Bronchial Washings Right Lower Lobe Acid Fast Stain - Final NO ACID FAST BACILLI SEEN Resulted 12/28/16 17:50 Bronchial Washings Right Lower Lobe Mycobacterial Culture Pending Resulted 12/28/16 17:50 Bronchial Washings Right Lower Lobe Gram Stain - Final Complete 12/28/16 17:50 Bronchial Washings Right Lower Lobe Bronchial Culture - Final MODERATE GROWTH NORMAL RESPIRATORY BLADE Complete 12/31/16 00:50 Urine Random Urine Legionella Antigen - Final PRESUMPTIVE NEGATIVE FOR LEGIONELLA P... Complete 12/31/16 00:50 Urine Random Urine Streptococcus pneumoniae Antigen (M - Final PRESUMPTIVE NEGATIVE FOR STREPTOCOCCU... Complete Administered Medications Medications (Trade) Dose Ordered Sig/Emma Route PRN Reason Start Time Stop Time Status Last Admin Dose Admin Sodium Chloride (NS Flush) 2 ml UNSCH PRN IV FLUSH FLUSH AFTER USING IV ACCESS 12/25/16 23:00 12/30/16 04:59 Sodium Chloride (NS Flush) 2 ml BID IV FLUSH 12/26/16 09:00 12/29/16 23:00 Ondansetron HCl (Zofran Inj) 4 mg Q6H PRN IVP NAUSEA OR VOMITING 12/25/16 23:00 12/26/16 07:12 Acetaminophen (Tylenol) 650 mg Q6H PRN PO FEVER>100.4 12/25/16 23:00 12/29/16 22:30 Morphine Sulfate (Morphine Inj) 2 mg Q3H PRN IV Pain 6-10 12/25/16 23:00 12/29/16 15:40 Benzonatate (Tessalon) 100 mg Q4H PRN PO COUGH 12/26/16 05:15 12/26/16 15:12 Promethazine HCl/ Codeine (Phenergan-Codeine Liq) 5 ml Q4H PRN PO COUGH 12/26/16 20:00 12/31/16 08:10 Diphenhydramine HCl (Benadryl) 25 mg Q4H PRN PO SEE LABEL COMMENTS 12/27/16 04:15 12/28/16 00:11 Acetaminophen (Tylenol) 650 mg Q4H PRN PO SEE LABEL COMMENTS 12/27/16 04:15 12/28/16 00:11 Mupirocin (Bactroban 2% Oint) 1 applic TID TOPICAL 12/27/16 14:15 12/30/16 08:52 Oxycodone HCl (Roxicodone) 5 mg Q6H PRN PO PAIN 1-10 12/27/16 14:00 12/28/16 21:56 Dextrose 1,000 ml @ 84 mls/hr [id number] IV 12/28/16 09:00 12/30/16 21:05 Pantoprazole Sodium (Protonix) 20 mg DAILY PO 12/29/16 09:00 12/31/16 08:10 Fluconazole/ Sodium Chloride 200 ml @ 100 mls/hr Q24H IV 12/28/16 22:00 12/30/16 23:06 Azithromycin 500 mg/Sodium Chloride 250 ml @ 250 mls/hr Q24H IV 12/28/16 20:00 12/30/16 21:07 Allopurinol (Zyloprim) 200 mg BID PO 12/29/16 22:00 12/31/16 08:10 Cefepime HCl 2000 mg/Sodium Chloride 100 ml @ 200 mls/hr Q12H IV 12/29/16 23:00 12/30/16 23:06 Objective Remarks GENERAL: Obese younger male resting in chair at bedside on nasal cannula. Friend at bedside. SKIN: Warm and dry. HEAD: Normocephalic. EYES: No injection or drainage. NECK: Supple, trachea midline. CARDIOVASCULAR: Regular rate and rhythm RESPIRATORY: Clear posteriorly. On 5 L nasal cannula. GASTROINTESTINAL: Abdomen obese. Nontender to palpation. EXTREMITIES: No cyanosis. No edema. NEUROLOGICAL: No obvious focal deficit. Awake, alert, and oriented x3. 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 -- Bronchoscopy on 12/28= no growth. -- BC on 12/29= pending. Assessment 26 y/o male with no major past medical history who was brought in for headache, confusion and cough. Plan 1. Odserc-b-Fbgl today 2. We will begin induction chemotherapy later this afternoon 3. Patient received 40 mg IV soluMedrol this morning 4. Monitor blood counts. No transfusion today. 5. Monitor daily CBC, CMP, Mag, Phos and Uric acid. Attending Statement The exam, history, and the medical decision-making described in the above note were completed with the assistance of the mid-level provider. I reviewed and agree with the findings presented. I attest that I had a [id number] encounter with the patient on the same day, and personally performed and documented my assessment and findings in the medical record 1. 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 Febrile Neutropenia -- - continue cefipime and Azithro--also on diflucan - Repeat blood cultures X 2 12/29- no growth - Blood cultures with no growth 12/25 2. Headache/Nausea - symptomatically better - Brain MRI negative 3 Acute Respiratory distress - continues to improve - s/p broch--negative results thus far - Possibility of leukemic infiltrates--can be seen in AML M4 - IV solumedrol 40mg X 1 given again today - Nebs 4. FEN - replace electrolytes - Calcium and Phosp daily 5. Thrombocytopenia - no evidence of DIC - check daily coags and fibrinogen and CBC - Transfuse to keep platelets > 10 - Will need irradiated blood products 6. Anemia - transfuse to keep Hb > 7 - will need irradiated blood products 7. Tumor Lysis Prophylaxis - Start Allopurinol 200mg PO BID - Check daily Phosp/Uric acid jeanette rn overnight events reviewed Problem Qualifiers (1) Neutropenia: Robina Cui Dec 31, 2016 12:20 Joey Santoyo MD Dec 31, 2016 23:37
[2016-12-31] MEDS: CEFEPIME INJ 2,000 MG in SODIUM CHLORIDE 0.9% INJ 100 ML IV SCH ×2 (12:43→23:25)
[2016-12-31] MEDS: Hickman Catheter Daily NS Lock Flush IV FLUSH SCH (12:51)
[2016-12-31] MEDS ORDERED: fentaNYL CITRATE 250 MCG/5 ML AMP ONE (14:40)
[2016-12-31] MEDS ORDERED: MIDAZOLAM HCL 2 MG/2 ML VIAL ONE (14:40)
--- NOTE | 2016-12-31 15:01 | HHI.PR ---
Subjective Remarks Patient states that he is hungry was wondering when his procedure will be completed. Has some chills last night. Otherwise no significant fever. Had a better night overnight. Objective Vitals Vital Signs Date Time Temp Pulse Resp B/P (MAP) Pulse Ox O2 Delivery O2 Flow Rate FiO2 12/31/16 12:41 76 12/31/16 12:00 98.5 77 18 128/66 (86) 93 12/31/16 08:00 98.2 82 18 137/63 (87) 94 12/31/16 07:56 74 12/31/16 04:00 76 12/31/16 04:00 97.0 84 18 136/67 (90) 93 12/31/16 00:00 96.7 89 18 132/65 (87) 97 12/31/16 00:00 69 12/30/16 20:49 93 Nasal Cannula 6.00 12/30/16 20:40 93 12/30/16 20:00 97.3 93 18 144/67 (92) 94 12/30/16 18:00 97.2 89 20 147/95 (112) 97 12/30/16 15:00 98.1 85 20 123/62 98 I/O 12/30/16 12/30/16 12/30/16 12/31/16 12/31/16 12/31/16 06:59 14:59 22:59 06:59 14:59 22:59 Intake Total 890 ml 300 ml 1720 ml 450 ml Output Total 1300 ml Balance 890 ml 300 ml 1720 ml -850 ml Intake Oral 1200 ml IV Total 890 ml 520 ml 450 ml Packed Cells 250 ml Blood Product IV Normal Saline Flush 50 ml Output Urine Total 1300 ml # Voids 3 # Bowel Movements 0 Result Diagram: 12/31/1612 12/31/16 0912 Other Results Microbiology Date/Time Source Procedure Growth Status 12/29/16 22:47 Blood Peripheral Aerobic Blood Culture - Preliminary NO GROWTH IN 1 DAY Resulted 12/29/16 22:47 Blood Peripheral Anaerobic Blood Culture - Preliminary NO GROWTH IN 1 DAY Resulted 12/26/16 17:10 Cerebral Spinal Fluid Lumbar Puncture Acid Fast Stain - Final NO ACID FAST BACILLI SEEN Resulted 12/26/16 17:10 Cerebral Spinal Fluid Lumbar Puncture Mycobacterial Culture Pending Resulted 12/28/16 00:35 Stool Stool Stool Occult Blood (SUNDAR) - Final HEMOCCULT NEGATIVE Complete 12/28/16 17:50 Bronchial Washings Left Lower Lobe Fungal Smear - Final NO FUNGAL ELEMENTS SEEN. Resulted 12/28/16 17:50 Bronchial Washings Left Lower Lobe Fungal Culture Pending Resulted 12/31/16 00:50 Urine Random Urine Legionella Antigen - Final PRESUMPTIVE NEGATIVE FOR LEGIONELLA P... Complete 12/31/16 00:50 Urine Random Urine Streptococcus pneumoniae Antigen (M - Final PRESUMPTIVE NEGATIVE FOR STREPTOCOCCU... Complete Objective Remarks GENERAL: This is a well-nourished, well-developed patient, in no apparent distress. CARDIOVASCULAR: Regular rate and rhythm RESPIRATORY: Clear to auscultation. Breath sounds equal bilaterally. No wheezes , rales, or rhonchi. GASTROINTESTINAL: Abdomen soft, non-tender, nondistended. Normal active bowel sounds MUSCULOSKELETAL: Extremities without clubbing, cyanosis, or edema. NEURO: Alert & Oriented x4 to person, place, time, situation. Moves all ext x4 A/P Problem List: (1) SIRS (systemic inflammatory response syndrome) ICD Code: R65.10 - Systemic inflammatory response syndrome (SIRS) of non- infectious origin without acute organ dysfunction Status: Acute (2) GABRIELA (acute kidney injury) ICD Code: N17.9 - Acute kidney failure, unspecified Status: Acute (3) Thrombocytopenia ICD Code: D69.6 - Thrombocytopenia, unspecified Status: Acute (4) Lymphocytosis ICD Code: D72.820 - Lymphocytosis (symptomatic) Status: Acute (5) Anemia ICD Code: D64.9 - Anemia, unspecified Status: Acute Assessment and Plan 1. Neutropenic fever of likely underlying pneumonia due to underlying hypoxia and CT scan findings.: Blood culture NGTD, CSF NGTD, , continuing broad- spectrum antibiotics with vancomycin and cefepime, additionally on azithromycin and fluconazole per infectious disease. Fevers have not recurred for the last 48 hours. bronchioloalveolar lavage and Cultures currently negative 2. Previous acute respiratory failure with hypoxia likely due to underlying pneumonia- improving on antibiotics continue oxygen support and wean as tolerated. 3. Acute myeloid leukemia - currently waiting for cytogenetics, scheduled for [id number] placement, status post MUGA scan Need to start induction chemotherapy when able. 4. Pancytopenia - Hematology proceeding with induction therapy, secondary to # 3. 5. GABRIELA: Resolved 6. DVT prophylaxis pharmaceutical anticoagulation contraindicated due to pancytopenia. Lynne Pace MD Dec 31, 2016 15:01
[2016-12-31] MEDS ORDERED: LIDOCAINE 2%/EPINEPHrine PF 1:200,000 20ML SDV ONE (15:08)
[2016-12-31] MEDS ORDERED: SODIUM CHLORIDE 0.9% FLUSH 10 ML FLUSH IVF PRN (15:45)
--- NOTE | 2016-12-31 15:50 | PD.RAD ---
Post Procedure Progress Note Pre Procedure Diagnosis: (1) Pancytopenia Post Procedure Diagnosis: (1) Pancytopenia Procedure Date: Dec 31, 2016 Supervising Radiologist: Nislon Bonner Estimated blood loss: 2cc Anesthesia: Local, Conscious Sedation Plan of Activity Patient to Unit: ROPU Patient Condition: Good Additional Comments: Port placed via the right IJ port in good position OK for use See PACS Report for procedural detail/treatment Nilson Bonner MD Dec 31, 2016 15:50
--- NOTE | 2016-12-31 16:20 | RADRPT ---
EXAM DATE/TIME: 12/31/2016 15:15 [place] COMPARISON: LUMBAR PUNCTURE W/OPENING PRESSURES, December 26, 2016, 17:03. 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 MEDICAL HISTORY : 1.Acute myeloid leukemia SURGICAL HISTORY : 1.[place] tooth extraction ENCOUNTER: Initial ACUITY: 1 week PAIN SCORE: 0/10 FLUORO TIME: 1.7 minutes IMAGE SERIES: 1 SEDATION TIME: 30 minutes ACCESS: Right internal jugular vein SEDATION: 1.) 4 mg midazolam (Versed) IV 2.) 250 mcg fentanyl (Sublimaze) IV Prophylactic antibiotics were administered with appropriate pre-procedure timing. Vancomycin within 2 hours of procedure, Ancef (or alternative) within 1 hour of procedure. DEVICE: 1. 8 [place] single lumen Angiodynamics Smart port PROCEDURE : 1. Continuous pulse oximetry and EKG monitoring. 2. Intravenous conscious sedation. 3. Ultrasound guidance for venous access. 4. Fluoroscopic guided implantable central venous port placement. The patient was placed supine. The neck was prepped in sterile fashion. Full sterile technique was u sed, including cap, mask, sterile gloves and gown, and a large sterile sheet. Hand hygiene and 2% ch lorhexidine Betadine was utilized per protocol for cutaneous antisepsis with appropriate dry time for site. The skin and subcutaneous tissues were infiltrated with local anesthetic solution. Sterile g el and sterile probe cover were utilized for ultrasound guidance. Under direct ultrasound guidance, central venous access was accomplished in the targeted vessel. The ultrasound images depicting access guidance were stored and saved to PACS for permanent record. A s ubcutaneous pocket was created using blunt dissection. The port was introduced to the pocket. The c atheter tubing was fed through a subcutaneous tunnel to the venotomy site. The catheter tubing was c ut to a suitable length and then was introduced through a valved Peel-Away sheath and positioned with catheter tubing tip at the cavo-atrial junction level. The pocket incision was closed with subcutic ular Vicryl suture. Steri-Strips were applied. The port was flushed and locked with heparin solutio n per protocol. Sterile dressing was applied to the site. The patient tolerated the procedure well. Conscious sedation was performed with the prescribed dosages and duration as above in the presence of an independent trained radiology nurse to assist in the monitoring of the patient. EKG and oximetry remained stable throughout the procedure. The patient tolerated the procedure well and there were no complications. The patient was sent to post anesthesia recovery in stable condition. CONCLUSION: Uncomplicated ultrasound and fluoroscopic guided implanted central venous port catheter placement as described in detail above. An 8 [place] Power port was placed. Nilson Bonner MD on December 31, 2016 at 16:18 Board Certified Radiologist. This report was verified electronically.
[2016-12-31] MEDS ORDERED: methylPREDNISolone SOD SUCC 40 MG/1 ML VIAL IV ONE (17:00)
[2016-12-31] MEDS: MORPHINE SULFATE 4 MG/ML INJ IV PRN (20:00)
[2016-12-31] MEDS: DEXTROSE 5% IN WATE 1000ML INJ 1,000 ML IV SCH (20:25)
[2016-12-31] MEDS: GRANISETRON INJ 1 MG, DEXAMETHASONE INJ 20 MG in SODIUM CHLORIDE 0.9% INJ 50 ML IV SCH (21:09)
[2016-12-31] MEDS: AZITHROMYCIN INJ 500 MG in SODIUM CHLOR 0.9% 250 ML INJ 250 ML IV SCH (21:10)
[2016-12-31] MEDS: FLUCONAZOLE 400 MG PREMIX BAG 200 ML IV SCH (22:37)
[2016-12-31] MEDS: DAUNORUBICIN IV SCH (22:37)
[2016-12-31] MEDS: SODIUM CHLORIDE 0.9% IV SCH (22:37)
[2016-12-31] MEDS: CYTARABINE IV SCH (23:56)
[2016-12-31] MEDS: SODIUM CHLORID 0.9% IV SCH (23:56)
[2017-01-01] VITALS (9 sets, daily range): BP systolic 122–158; BP diastolic 55–99; PULSE 68–90; RESP 18–20; TEMP 96.8–97.6; O2SAT 96–99
[2017-01-01] MEDS: MORPHINE SULFATE 4 MG/ML INJ IV PRN ×2 (04:37→20:26)
[2017-01-01] MEDS: DEXTROSE 5% IN WATE 1000ML INJ 1,000 ML IV SCH ×2 (04:38→22:03)
[2017-01-01 06:15] LABS: MEAN CELL VOLUME 96.5 FL (80.0-100.0); MEAN CORPUSCULAR HEMOGLOBIN 32.7 PG (27.0-34.0); MEAN CORPUSCULAR HGB CONC 33.8 % (32.0-36.0); PLATELET COUNT 63 TH/MM3 (150-450); RED BLOOD COUNT 2.49 MIL/MM3 (4.50-5.90); RED CELL DISTRIBUTION WIDTH 18.8 % (11.6-17.2); WHITE BLOOD COUNT 6.9 TH/MM3 (4.0-11.0)
[2017-01-01 06:18] LABS: HEMO FLAGS AUTO DIFF
[2017-01-01 07:00] LABS: ALKALINE PHOSPHATASE 38 U/L (45-117); ALT (GPT) 33 U/L (12-78); ANION GAP 7 MEQ/L (5-15); AST (GOT) 17 U/L (15-37); BICARBONATE 26.7 MEQ/L (21.0-32.0); BLOOD UREA NITROGEN 16 MG/DL (7-18); CHLORIDE 108 MEQ/L (98-107); GLOMERULAR FILTRATION RATE 128 ML/MIN (>89); MAGNESIUM 2.6 MG/DL (1.5-2.5); POTASSIUM 4.4 MEQ/L (3.5-5.1); SODIUM (NA) 142 MEQ/L (136-145); TOTAL BILIRUBIN ADULT 0.5 MG/DL (0.2-1.0)
[2017-01-01] MEDS: ALLOPURINOL 100 MG TAB PO SCH ×2 (08:55→21:44)
[2017-01-01] MEDS: PANTOPRAZOLE SOD 20 MG DELAYED RELEASE TAB PO SCH (08:55)
[2017-01-01] MEDS: MUPIROCIN 2% OINT 22 GM TUBE TOPICAL SCH ×3 (08:56→18:00)
[2017-01-01] MEDS: DOCUSATE SODIUM 50 MG/SENNA 8.6 MG TAB PO SCH ×2 (08:58→21:00)
[2017-01-01] MEDS: Hickman Catheter Daily NS Lock Flush IV FLUSH SCH (09:00)
[2017-01-01] MEDS: SODIUM CHLORIDE 0.9% FLUSH 10 ML FLUSH IV FLUSH SCH ×2 (09:00→21:00)
[2017-01-01 09:10] LABS: BANDS 2 % (0-6); BLASTS 7 % (0-0); NEUTROPHIL # MANUAL DIFF 0.6 TH/MM3 (1.8-7.7); POLYS (SEG NEUTROPHILS) 7 % (16-70); WBC DIFF SAMPLE 100
[2017-01-01 09:15] LABS: PLATELET ESTIMATE SMEAR LOW (NORMAL); PLATELET MORPHOLOGY NORMAL (NORMAL); SCAN/DIFF FINAL DIFF MANUAL
[2017-01-01] MEDS: CEFEPIME INJ 2,000 MG in SODIUM CHLORIDE 0.9% INJ 100 ML IV SCH ×2 (12:21→23:25)
--- NOTE | 2017-01-01 13:28 | HHI.IDPN ---
Subjective Subjective Remarks feels much better cough improved no fever started on chemo no new c/o CSF negative Antibiotics azitho cefepime vanco fluconazol Allergies: Coded Allergies: No Known Allergies (Verified , 12/25/16) Objective . Vital Signs Date Time Temp Pulse Resp B/P (MAP) Pulse Ox O2 Delivery O2 Flow Rate FiO2 01/01/17 08:39 96 Nasal Cannula 6.00 01/01/17 08:39 96 Nasal Cannula 6.00 01/01/17 08:00 97.2 82 20 122/63 (82) 96 01/01/17 04:40 16 01/01/17 04:04 72 01/01/17 04:00 97.3 77 18 158/67 (97) 96 01/01/17 00:05 76 01/01/17 00:00 97.6 85 18 135/63 (87) 97 12/31/16 22:41 96.7 89 20 122/60 (80) 95 12/31/16 20:53 90 12/31/16 20:29 95 Nasal Cannula 6.00 12/31/16 20:22 95 Nasal Cannula 6.00 12/31/16 20:00 97.5 92 18 131/58 (82) 95 12/31/16 16:30 83 16 126/62 (83) 96 12/31/16 16:15 83 16 121/62 (81) 96 12/31/16 16:00 97.7 93 16 145/73 (97) 94 . Laboratory Tests Test 12/31/16 09:12 01/01/17 04:45 01/01/17 11:03 White Blood Count 13.3 TH/MM3 6.9 TH/MM3 Red Blood Count 2.33 MIL/MM3 2.49 MIL/MM3 Hemoglobin 7.6 GM/DL 8.1 GM/DL Hematocrit 22.1 % 24.0 % Mean Corpuscular Volume 95.0 FL 96.5 FL Mean Corpuscular Hemoglobin 32.5 PG 32.7 PG Mean Corpuscular Hemoglobin Concent 34.2 % 33.8 % Red Cell Distribution Width 18.6 % 18.8 % Platelet Count 62 TH/MM3 63 TH/MM3 Mean Platelet Volume 7.0 FL 7.0 FL CBC Comment AUTO DIFF AUTO DIFF Differential Total Cells Counted 100 100 Neutrophils % (Manual) 15 % 7 % Lymphocytes % 17 % 28 % Monocytes % 58 % 56 % Neutrophils # (Manual) 2.0 TH/MM3 0.6 TH/MM3 Differential Comment FINAL DIFF MANUAL FINAL DIFF MANUAL Blastocytes 10 % 7 % Platelet Estimate LOW LOW Platelet Morphology Comment NORMAL NORMAL Ovalocytes 1+ Band Neutrophils % 2 % Haptoglobin 315 MG/DL Laboratory Tests Test 12/31/16 09:12 01/01/17 04:45 01/01/17 11:03 Blood Urea Nitrogen 15 MG/DL 16 MG/DL Creatinine 0.74 MG/DL 0.75 MG/DL Random Glucose 109 MG/DL 116 MG/DL Total Protein 7.2 GM/DL 7.6 GM/DL Albumin 2.8 GM/DL 2.9 GM/DL Calcium Level 7.6 MG/DL 7.9 MG/DL Phosphorus Level 2.5 MG/DL 3.9 MG/DL Magnesium Level 2.6 MG/DL 2.6 MG/DL Uric Acid 3.1 MG/DL 3.0 MG/DL Alkaline Phosphatase 33 U/L 38 U/L Aspartate Amino Transf (AST/SGOT) 12 U/L 17 U/L Alanine Aminotransferase (ALT/SGPT) 27 U/L 33 U/L Total Bilirubin 0.8 MG/DL 0.5 MG/DL Sodium Level 139 MEQ/L 142 MEQ/L Potassium Level 3.9 MEQ/L 4.4 MEQ/L Chloride Level 108 MEQ/L 108 MEQ/L Carbon Dioxide Level 25.7 MEQ/L 26.7 MEQ/L Anion Gap 5 MEQ/L 7 MEQ/L Estimat Glomerular Filtration Rate 130 ML/MIN 128 ML/MIN Lactate Dehydrogenase 361 U/L Microbiology Date/Time Source Procedure Growth Status 12/29/16 22:47 Blood Peripheral Aerobic Blood Culture - Preliminary NO GROWTH IN 2 DAYS Resulted 12/29/16 22:47 Blood Peripheral Anaerobic Blood Culture - Preliminary NO GROWTH IN 2 DAYS Resulted 12/29/16 22:15 Blood Line Aerobic Blood Culture - Preliminary NO GROWTH IN 3 DAYS Resulted 12/29/16 22:15 Blood Line Anaerobic Blood Culture - Preliminary NO GROWTH IN 3 DAYS Resulted 12/31/16 00:50 Urine Random Urine Legionella Antigen - Final PRESUMPTIVE NEGATIVE FOR LEGIONELLA P... Complete 12/31/16 00:50 Urine Random Urine Streptococcus pneumoniae Antigen (M - Final PRESUMPTIVE NEGATIVE FOR STREPTOCOCCU... Complete Imaging Last Impressions Port Line Insertion 12/31/16 0000 Signed Impressions: Service Date/Time: December 15:15 - CONCLUSION: Uncomplicated ultrasound and fluoroscopic guided implanted central venous port catheter placement as described in detail above. An 8 [place] Power port was placed. Nilson Bonner MD [facility] 12/30/16 Signed Impressions: Service Date/Time: Friday, December 30, 2016 13:16 - CONCLUSION: Negative exam. Calculated ejection fraction of 56%% with adequate wall motion throughout. Bean Dugan MD Chest X-Ray 12/29/16 Signed Impressions: Service Date/Time: Thursday, December 29, 2016 15:30 - CONCLUSION: 1. Right- sided PICC line tip in the central subclavian vein. 2. Cardiomegaly with pulmonary edema pattern. Grant Jones MD Bone Biopsy CT 12/28/16 Signed Impressions: Service Date/Time: Wednesday, December 28, 2016 16:53 - CONCLUSION: 1. Uncomplicated CT guided bone marrow aspirate. 2. Uncomplicated CT guided bone marrow biopsy. Grant Jones MD Brain MRI 12/27/16 Signed Impressions: Service Date/Time: Tuesday, December 27, 2016 21:58 - CONCLUSION: Unremarkable study. Patricia Contreras MD Abdomen/Pelvis CT 12/27/16 Signed Impressions: Service Date/Time: Tuesday, December 27, 2016 22:47 - CONCLUSION: 1. Basilar dependent airspace consolidation in both lungs most characteristic of pneumonia or aspiration. 2. Low attenuation lesion posterior spleen, possibly small infarct or hemangioma. No adenopathy within the abdomen and pelvis. Leander Fiore MD Lumbar Puncture Fluoroscopy 12/26/16 Signed Impressions: Service Date/Time: Monday, December 26, 2016 17:03 - CONCLUSION: Uncomplicated fluoroscopically guided lumbar puncture with pressures as above. Nilson Bonner MD Chest CT 12/26/16 Signed Impressions: Service Date/Time: Monday, December 26, 2016 17:45 - CONCLUSION: Bibasilar air space process characteristic of pneumonia. Patricia Contreras MD Head CT 12/25/161940 Signed Impressions: Service Date/Time: Sunday, December 25, 2016 19:50 - CONCLUSION: Negative noncontrast head CT. Audie Maria MD Physical Exam CONSTITUTIONAL/GENERAL: This is a morbidly obese patient, in no distress. OOB in chair TUBES/LINES/DRAINS: SKIN: No jaundice, rashes, or lesions. HEAD: Atraumatic. Normocephalic. EYES: Pupils equal and round and reactive. Extraocular motions intact. No scleral icterus. No injection or drainage. Fundi not examined. ENT: Hearing grossly normal. Nose without bleeding or purulent drainage. CARDIOVASCULAR: Regular rate and rhythm without murmurs, gallops, or rubs. No JVD. Peripheral pulses symmetric. Well perfused perifery RESPIRATORY/CHEST: Symmetric, unlabored respirations. Clear to auscultation. Breath sounds equal bilaterally. No wheezes, rales, or rhonchi. GASTROINTESTINAL: Abdomen soft, non-tender, nondistended. No hepato-splenomegaly , or palpable masses. No guarding. Bowel sounds present. MUSCULOSKELETAL: Extremities without clubbing, cyanosis, or edema. NEUROLOGICAL: Awake and alert. 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
--- NOTE | 2017-01-01 14:08 | PD.ONC.PN ---
Subjective Subjective Remarks Afebrile overnight Patient tolerating day two chemotherapy He states "I don't feel good and I don't feel bad" Objective Data Date Time Temp Pulse Resp B/P (MAP) Pulse Ox O2 Delivery O2 Flow Rate FiO2 01/01/17 12:00 97.5 86 18 126/82 (97) 97 01/01/17 08:39 96 Nasal Cannula 6.00 01/01/17 08:39 96 Nasal Cannula 6.00 01/01/17 08:00 97.2 82 20 122/63 (82) 96 01/01/17 04:40 16 01/01/17 04:04 72 01/01/17 04:00 97.3 77 18 158/67 (97) 96 01/01/17 00:05 76 01/01/17 00:00 97.6 85 18 135/63 (87) 97 12/31/16 22:41 96.7 89 20 122/60 (80) 95 12/31/16 20:53 90 12/31/16 20:29 95 Nasal Cannula 6.00 12/31/16 20:22 95 Nasal Cannula 6.00 12/31/16 20:00 97.5 92 18 131/58 (82) 95 12/31/16 16:30 83 16 126/62 (83) 96 12/31/16 16:15 83 16 121/62 (81) 96 12/31/16 16:00 97.7 93 16 145/73 (97) 94 01/01/17 01/01/17 01/01/17 07:00 15:00 23:00 Output Total 1300 ml Balance -1300 ml Result Diagram: 01/01/17 0445 01/01/17 0445 Laboratory Results Laboratory Tests Test 01/01/17 04:45 01/01/17 11:03 White Blood Count 6.9 TH/MM3 Red Blood Count 2.49 MIL/MM3 Hemoglobin 8.1 GM/DL Hematocrit 24.0 % Mean Corpuscular Volume 96.5 FL Mean Corpuscular Hemoglobin 32.7 PG Mean Corpuscular Hemoglobin Concent 33.8 % Red Cell Distribution Width 18.8 % Platelet Count 63 TH/MM3 Mean Platelet Volume 7.0 FL CBC Comment AUTO DIFF Differential Total Cells Counted 100 Neutrophils % (Manual) 7 % Band Neutrophils % 2 % Lymphocytes % 28 % Monocytes % 56 % Neutrophils # (Manual) 0.6 TH/MM3 Differential Comment FINAL DIFF MANUAL Blastocytes 7 % Platelet Estimate LOW Platelet Morphology Comment NORMAL Fibrinogen 434 mg/dL Blood Urea Nitrogen 16 MG/DL Creatinine 0.75 MG/DL Random Glucose 116 MG/DL Total Protein 7.6 GM/DL Albumin 2.9 GM/DL Calcium Level 7.9 MG/DL Phosphorus Level 3.9 MG/DL Magnesium Level 2.6 MG/DL Uric Acid 3.0 MG/DL Alkaline Phosphatase 38 U/L Aspartate Amino Transf (AST/SGOT) 17 U/L Alanine Aminotransferase (ALT/SGPT) 33 U/L Total Bilirubin 0.5 MG/DL Sodium Level 142 MEQ/L Potassium Level 4.4 MEQ/L Chloride Level 108 MEQ/L Carbon Dioxide Level 26.7 MEQ/L Anion Gap 7 MEQ/L Estimat Glomerular Filtration Rate 128 ML/MIN Haptoglobin 315 MG/DL Lactate Dehydrogenase 361 U/L Culture Results Microbiology Date/Time Source Procedure Growth Status 12/29/16 22:47 Blood Peripheral Aerobic Blood Culture - Preliminary NO GROWTH IN 2 DAYS Resulted 12/29/16 22:47 Blood Peripheral Anaerobic Blood Culture - Preliminary NO GROWTH IN 2 DAYS Resulted 12/29/16 22:15 Blood Line Aerobic Blood Culture - Preliminary NO GROWTH IN 3 DAYS Resulted 12/29/16 22:15 Blood Line Anaerobic Blood Culture - Preliminary NO GROWTH IN 3 DAYS Resulted 12/31/16 00:50 Urine Random Urine Legionella Antigen - Final PRESUMPTIVE NEGATIVE FOR LEGIONELLA P... Complete 12/31/16 00:50 Urine Random Urine Streptococcus pneumoniae Antigen (M - Final PRESUMPTIVE NEGATIVE FOR STREPTOCOCCU... Complete Administered Medications Medications (Trade) Dose Ordered Sig/Emma Route PRN Reason Start Time Stop Time Status Last Admin Dose Admin Sodium Chloride (NS Flush) 2 ml UNSCH PRN IV FLUSH FLUSH AFTER USING IV ACCESS 12/25/16 23:00 12/30/16 04:59 Sodium Chloride (NS Flush) 2 ml BID IV FLUSH 12/26/16 09:00 12/31/16 22:37 Ondansetron HCl (Zofran Inj) 4 mg Q6H PRN IVP NAUSEA OR VOMITING 12/25/16 23:00 12/26/16 07:12 Acetaminophen (Tylenol) 650 mg Q6H PRN PO FEVER>100.4 12/25/16 23:00 12/29/16 22:30 Morphine Sulfate (Morphine Inj) 2 mg Q3H PRN IV Pain 6-10 12/25/16 23:00 01/01/17 04:37 Senna/Docusate Sodium (Rika-Colace) 1 tab BID PO 12/26/16 09:00 01/01/17 08:58 Benzonatate (Tessalon) 100 mg Q4H PRN PO COUGH 12/26/16 05:15 12/26/16 15:12 Promethazine HCl/ Codeine (Phenergan-Codeine Liq) 5 ml Q4H PRN PO COUGH 12/26/16 20:00 12/31/16 17:09 Diphenhydramine HCl (Benadryl) 25 mg Q4H PRN PO SEE LABEL COMMENTS 12/27/16 04:15 12/28/16 00:11 Acetaminophen (Tylenol) 650 mg Q4H PRN PO SEE LABEL COMMENTS 12/27/16 04:15 12/28/16 00:11 Mupirocin (Bactroban 2% Oint) 1 applic TID TOPICAL 12/27/16 14:15 01/01/17 08:56 Oxycodone HCl (Roxicodone) 5 mg Q6H PRN PO PAIN 1-10 12/27/16 14:00 12/28/16 21:56 Dextrose 1,000 ml @ 84 mls/hr [id number] IV 12/28/16 09:00 01/01/17 04:38 Pantoprazole Sodium (Protonix) 20 mg DAILY PO 12/29/16 09:00 01/01/17 08:55 Fluconazole/ Sodium Chloride 200 ml @ 100 mls/hr Q24H IV 12/28/16 22:00 12/31/16 22:37 Azithromycin 500 mg/Sodium Chloride 250 ml @ 250 mls/hr Q24H IV 12/28/16 20:00 12/31/16 21:10 Allopurinol (Zyloprim) 200 mg BID PO 12/29/16 22:00 01/01/17 08:55 Cefepime HCl 2000 mg/Sodium Chloride 100 ml @ 200 mls/hr Q12H IV 12/29/16 23:00 01/01/17 12:21 Heparin Sodium (Porcine) (Heparin Central Flush) 500 units UNSCH PRN IV FLUSH SEE PROTOCOL TABLE 12/30/16 06:30 12/31/16 15:45 Granisetron HCl 1 mg/Dexamethasone Sodium Phosphate 20 mg/Sodium Chloride 56 ml @ 336 mls/hr Q24H IV 12/31/16 17:30 01/06/17 17:39 12/31/16 21:09 Cytarabine 200 mg/ Sodium Chloride 500 ml @ 20.833 mls/ hr Q24H IV 12/31/16 18:30 01/07/17 18:29 12/31/16 23:56 Daunorubicin HCl 180 mg/Sodium Chloride 136 ml @ 272 mls/hr Q24H IV 12/31/16 18:00 01/02/17 18:29 12/31/16 22:37 Objective Remarks GENERAL: Obese younger male resting in bed on nasal cannula. Friends at bedside. SKIN: Warm and dry. Infusaport to R chest. HEAD: Normocephalic. EYES: No injection or drainage. NECK: Supple, trachea midline. CARDIOVASCULAR: Regular rate and rhythm RESPIRATORY: Clear posteriorly. On 6 L nasal cannula. GASTROINTESTINAL: Abdomen obese. Nontender to palpation. EXTREMITIES: No cyanosis. No edema. NEUROLOGICAL: No obvious focal deficit. Awake, alert, and oriented x3. 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 - Acute myeloblastic leukemia, not having achieved remission Plan: -- Preliminary BMB showed 70% blasts in bone marrow -- Cytogenetics (FLT and KIT) pending -- MUGA scan shows normal ejection fraction with no wall motion abnormalities 12/31 Day 1: Daunorubicin and Cytarabine (2) Neutropenia ICD Codes: D70.9 - Neutropenia, unspecified Status: Acute Plan: -- ID following -- On Cefepime, cefazolin, Azithromycin and Fluconazole -- BC on 12/25 = no growth. -- Bronchoscopy on 12/28= no growth. -- BC on 12/29= no growth. Assessment 26 y/o male with no major past medical history who was brought in for headache, confusion and cough. Plan 1. Induction chemotherapy started at 2200 last night 2. So far he is tolerating very well. 3. No blood transfusion today; monitor CBC and transfuse as necessary 4. Monitor daily CBC, CMP, Mag, Phos and Uric acid. Attending Statement he exam, history, and the medical decision-making described in the above note were completed with the assistance of the mid-level provider. I reviewed and agree with the findings presented. I attest that I had a [id number] encounter with the patient on the same day, and personally performed and documented my assessment and findings in the medical record 1. 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 Febrile Neutropenia -- No fevers o/n - On cefipime and Azithro--also on diflucan - Repeat blood cultures X 2 12/29- no growth - Blood cultures with no growth 12/25 2. Headache/Nausea - Symptoms resolved - Brain MRI negative 3 Acute Respiratory distress - continues to improve - s/p broch--negative results thus far - Possibility of leukemic infiltrates--can be seen in AML M4 - IV solumedrol 40mg X 1 given again today - Nebs prn 4. FEN - replace electrolytes - Calcium and Phosp daily 5. Thrombocytopenia - no evidence of DIC - check daily coags and fibrinogen and CBC - Transfuse to keep platelets > 10 - Will need irradiated blood products 6. Anemia - transfuse to keep Hb > 7 - will need irradiated blood products 7. Tumor Lysis Prophylaxis - On Allopurinol 200mg PO BID - Check daily Phosp/Uric acid jeanette rn overnight events reviewed Problem Qualifiers (1) Neutropenia: Robina Cui Jan 01, 2017 14:08 Joey Santoyo MD Jan 01, 2017 22:36
[2017-01-01 15:55] LABS: VZV PCR RESULT <500 (<500 copies)
--- NOTE | 2017-01-01 16:55 | HHI.PR ---
Subjective Remarks No complaints. Doing okay. No fevers or chills. Pain control. Objective Vitals Vital Signs Date Time Temp Pulse Resp B/P (MAP) Pulse Ox O2 Delivery O2 Flow Rate FiO2 01/01/17 12:00 85 01/01/17 12:00 97.5 86 18 126/82 (97) 97 01/01/17 08:39 96 Nasal Cannula 6.00 01/01/17 08:39 96 Nasal Cannula 6.00 01/01/17 08:00 86 01/01/17 08:00 97.2 82 20 122/63 (82) 96 01/01/17 04:40 16 01/01/17 04:04 72 01/01/17 04:00 97.3 77 18 158/67 (97) 96 01/01/17 00:05 76 01/01/17 00:00 97.6 85 18 135/63 (87) 97 12/31/16 22:41 96.7 89 20 122/60 (80) 95 12/31/16 20:53 90 12/31/16 20:29 95 Nasal Cannula 6.00 12/31/16 20:22 95 Nasal Cannula 6.00 12/31/16 20:00 97.5 92 18 131/58 (82) 95 I/O 12/31/16 12/31/16 12/31/16 01/01/17 01/01/17 01/01/17 07:00 15:00 23:00 07:00 15:00 23:00 Intake Total 450 ml 1680 ml Output Total 1300 ml 800 ml 1300 ml Balance -850 ml 880 ml -1300 ml Intake Oral 1680 ml IV Total 450 ml Output Urine Total 1300 ml 800 ml 1300 ml # Voids 2 # Bowel Movements 1 Result Diagram: 01/01/17 0445 01/01/17 0445 Objective Remarks GENERAL: This is a well-nourished, well-developed patient, in no apparent distress. CARDIOVASCULAR: Regular rate and rhythm RESPIRATORY: Clear to auscultation. Breath sounds equal bilaterally. No wheezes , rales, or rhonchi. GASTROINTESTINAL: Abdomen soft, non-tender, nondistended. Normal active bowel sounds MUSCULOSKELETAL: Extremities without clubbing, cyanosis, or edema. NEURO: Alert & Oriented x4 to person, place, time, situation. Moves all ext x4 Procedures 12/31 [id number] placement A/P Problem List: (1) SIRS (systemic inflammatory response syndrome) ICD Code: R65.10 - Systemic inflammatory response syndrome (SIRS) of non- infectious origin without acute organ dysfunction Status: Acute (2) GABRIELA (acute kidney injury) ICD Code: N17.9 - Acute kidney failure, unspecified Status: Acute (3) Thrombocytopenia ICD Code: D69.6 - Thrombocytopenia, unspecified Status: Acute (4) Lymphocytosis ICD Code: D72.820 - Lymphocytosis (symptomatic) Status: Acute (5) Anemia ICD Code: D64.9 - Anemia, unspecified Status: Acute Assessment and Plan 1. Neutropenic fever of likely underlying pneumonia due to underlying hypoxia and CT scan findings.: Blood culture no growth to date, CSF cultures no growth to date, , continuing broad-spectrum antibiotics with vancomycin and cefepime, additionally on azithromycin and fluconazole per infectious disease. Fevers have not recurred for the last 72 hours. bronchioloalveolar lavage and Cultures currently negative 2. Previous acute respiratory failure with hypoxia likely due to underlying pneumonia- improving on antibiotics; continue oxygen support and wean as tolerated. 3. Acute myeloid leukemia - currently waiting for cytogenetics, status post post [id number] placement 12/31, status post MUGA scan started induction chemotherapy. 4. Pancytopenia - Hematology proceeding with induction therapy, secondary to # 3. 5. GABRIELA: Resolved 6. DVT prophylaxis pharmaceutical anticoagulation contraindicated due to pancytopenia. Discharge Planning Home when stable and cleared by hematology. Lynne Pace MD Jan 01, 2017 16:55
[2017-01-01] MEDS: AZITHROMYCIN INJ 500 MG in SODIUM CHLOR 0.9% 250 ML INJ 250 ML IV SCH (21:41)
[2017-01-01] MEDS: FLUCONAZOLE 400 MG PREMIX BAG 200 ML IV SCH (23:24)
[2017-01-01] MEDS: GRANISETRON INJ 1 MG, DEXAMETHASONE INJ 20 MG in SODIUM CHLORIDE 0.9% INJ 50 ML IV SCH (23:59)
[2017-01-01] MEDS: ONDANSETRON HCL 4 MG/2 ML VIAL IVP PRN (23:59)
[2017-01-02] VITALS (12 sets, daily range): BP systolic 115–135; BP diastolic 56–82; PULSE 74–105; RESP 18–20; TEMP 95.9–97.4; O2SAT 94–99
[2017-01-02] MEDS: DAUNORUBICIN IV SCH (00:44)
[2017-01-02] MEDS: SODIUM CHLORIDE 0.9% IV SCH (00:44)
[2017-01-02] MEDS: CYTARABINE IV SCH (01:17)
[2017-01-02] MEDS: SODIUM CHLORID 0.9% IV SCH (01:17)
[2017-01-02 05:59] LABS: ANION GAP 7 MEQ/L (5-15); AST (GOT) 10 U/L (15-37); BICARBONATE 26.8 MEQ/L (21.0-32.0); BLOOD UREA NITROGEN 16 MG/DL (7-18); CHLORIDE 104 MEQ/L (98-107); GLOMERULAR FILTRATION RATE 132 ML/MIN (>89); MAGNESIUM 2.9 MG/DL (1.5-2.5); POTASSIUM 4.2 MEQ/L (3.5-5.1); SODIUM (NA) 138 MEQ/L (136-145)
[2017-01-02 06:01] LABS: ALT (GPT) 42 U/L (12-78); URIC ACID 2.7 MG/DL (2.6-7.2)
[2017-01-02 06:03] LABS: ALKALINE PHOSPHATASE 41 U/L (45-117); TOTAL BILIRUBIN ADULT 0.7 MG/DL (0.2-1.0)
[2017-01-02 06:09] LABS: HEMATOCRIT 21.4 % (39.0-51.0); MEAN CORPUSCULAR HEMOGLOBIN 33.2 PG (27.0-34.0); MEAN CORPUSCULAR HGB CONC 34.6 % (32.0-36.0); PLATELET COUNT 53 TH/MM3 (150-450); RED BLOOD COUNT 2.23 MIL/MM3 (4.50-5.90); RED CELL DISTRIBUTION WIDTH 18.3 % (11.6-17.2); WHITE BLOOD COUNT 3.3 TH/MM3 (4.0-11.0)
[2017-01-02 06:36] LABS: HEMO FLAGS AUTO DIFF
[2017-01-02] MEDS: ALLOPURINOL 100 MG TAB PO SCH ×2 (08:54→20:50)
[2017-01-02] MEDS: PANTOPRAZOLE SOD 20 MG DELAYED RELEASE TAB PO SCH (08:54)
[2017-01-02] MEDS: SODIUM CHLORIDE 0.9% FLUSH 10 ML FLUSH IV FLUSH SCH ×2 (08:54→20:49)
[2017-01-02 08:55] LABS: BANDS 2 % (0-6); BLASTS 7 % (0-0); NEUTROPHIL # MANUAL DIFF 0.6 TH/MM3 (1.8-7.7); PLATELET ESTIMATE SMEAR LOW (NORMAL); PLATELET MORPHOLOGY NORMAL (NORMAL); POLYS (SEG NEUTROPHILS) 16 % (16-70); SCAN/DIFF FINAL DIFF MANUAL; WBC DIFF SAMPLE 100
[2017-01-02] MEDS: SODIUM CHLORIDE 0.9% FLUSH 10 ML FLUSH IV FLUSH PRN (08:55)
[2017-01-02] MEDS: Hickman Catheter Daily NS Lock Flush IV FLUSH SCH (08:55)
[2017-01-02] MEDS: MUPIROCIN 2% OINT 22 GM TUBE TOPICAL SCH ×3 (08:56→16:57)
[2017-01-02] MEDS: DOCUSATE SODIUM 50 MG/SENNA 8.6 MG TAB PO SCH ×2 (08:56→20:49)
--- NOTE | 2017-01-02 10:59 | HHI.PR ---
Subjective Remarks Follow-up for neutropenic fever Patient has no complaints. He stated he feels a lot better. He denies any pain. He stated that his pain only occurs after chemotherapy in which he gets severe muscle ache but that resolves on its own. Deny any shortness of breathing. He stated he has good urine output. Objective Vitals Vital Signs Date Time Temp Pulse Resp B/P (MAP) Pulse Ox O2 Delivery O2 Flow Rate FiO2 01/02/17 08:00 96.8 105 18 117/82 (94) 97 01/02/17 04:14 88 01/02/17 04:00 96.3 85 18 119/56 (77) 95 01/02/17 03:30 96 Nasal Cannula 6.00 01/02/17 03:30 96 Nasal Cannula 6.00 01/02/17 00:38 74 01/02/17 00:26 74 115/58 (77) 01/02/17 00:00 95.9 80 18 135/63 (87) 97 01/01/17 20:45 96.8 86 20 141/55 (83) 96 01/01/17 16:00 80 01/01/17 16:00 97.6 90 20 122/63 (82) 96 01/01/17 12:00 85 01/01/17 12:00 97.5 86 18 126/82 (97) 97 I/O 01/01/17 01/01/17 01/01/17 01/02/17 01/02/17 01/02/17 07:00 15:00 23:00 07:00 15:00 23:00 Intake Total 2400 ml Output Total 1300 ml 600 ml 1350 ml 700 ml Balance -1300 ml 1800 ml -1350 ml -700 ml Intake Oral 2400 ml Output Urine Total 1300 ml 600 ml 1350 ml 700 ml # Voids 7 # Bowel Movements 2 Result Diagram: 01/02/17 0400 01/02/17 0400 Objective Remarks GENERAL: In no acute distress. SKIN: Warm and dry. Port in place. No erythema or discharge noted around the port site. CARDIOVASCULAR: Regular rate and rhythm without murmurs, gallops, or rubs. RESPIRATORY: Breath sounds equal bilaterally. No accessory muscle use. GASTROINTESTINAL: Abdomen soft, non-tender, nondistended. Procedures 12/31 [id number] placement Medications and IVs Current Medications Acetaminophen (Tylenol) 650 mg ONCE ONCE PO Last administered on 12/25/16 20: 28; Start 12/25/16 at 19:45; Stop 12/25/16 at 19:46; Status DC Sodium Chloride 1,000 ml @ 1,000 mls/hr Q1H ONCE IV Last administered on 20:27; Start 12/25/16 at 19:41; Stop 12/25/16 at 20:40; Status DC Sodium Chloride 1,000 ml @ 1,000 mls/hr Q1H ONCE IV Last administered on 20:41; Start 12/25/16 at 19:41; Stop 12/25/16 at 20:40; Status DC Sodium Chloride 1,000 ml @ 1,000 mls/hr Q1H ONCE IV Last administered on 21:09; Start 12/25/16 at 19:41; Stop 12/25/16 at 20:40; Status DC Sodium Chloride 900 ml @ 1,000 mls/hr Q54M ONCE IV Last administered on 21:46; Start 12/25/16 at 19:41; Stop 12/25/16 at 20:34; Status DC Prochlorperazine Edisylate (Compazine Inj) 10 mg ONCE ONCE IV PUSH Last administered on 12/25/16 20:28; Start 12/25/16 at 19:45; Stop 12/25/16 at 19:46 ; Status DC Diphenhydramine HCl (Benadryl Inj) 25 mg ONCE ONCE IV PUSH Last administered on 12/25/16 20:27; Start 12/25/16 at 19:45; Stop 12/25/16 at 19:46; Status DC Cefepime HCl 2000 mg/Sodium Chloride 100 ml @ 200 mls/hr ONCE STAT IV Last administered on 12/25/16 21:46; Start 12/25/16 at 21:13; Stop 12/25/16 at 21:42 ; Status DC Pharmacy Profile Note 0 ml @ 0 mls/hr UNSCH OTHER ; Start 12/25/16 at 23:00; Stop 12/30/16 at 20:00; Status DC Cefepime HCl 1000 mg/Sodium Chloride 100 ml @ 200 mls/hr Q12H IV Last administered on 12/28/16 08:18; Start 12/26/16 at 09:00; Stop 12/28/16 at 19:05 ; Status DC Sodium Chloride 1,000 ml @ 100 mls/hr Q10H IV Last administered on 12/27/16 17:17; Start 12/25/16 at 23:00; Stop 12/28/16 at 09:00; Status DC Sodium Chloride (NS Flush) 2 ml UNSCH PRN IV FLUSH FLUSH AFTER USING IV ACCESS Last administered on 12/30/16 04:59; Start 12/25/16 at 23:00 Sodium Chloride (NS Flush) 2 ml BID IV FLUSH Last administered on 12/31/16 22: 37; Start 12/26/16 at 09:00 Ondansetron HCl (Zofran Inj) 4 mg Q6H PRN IVP NAUSEA OR VOMITING Last administered on 01/01/17 23:59; Start 12/25/16 at 23:00 Acetaminophen (Tylenol) 650 mg Q6H PRN PO FEVER>100.4 Last administered on 12/29 22:30; Start 12/25/16 at 23:00 Acetaminophen/ Hydrocodone Bitart ([place] 5-325 Mg) 1 tab Q4H PRN PO PAIN SCALE 3 TO 5 Last administered on 12/27/16 12:05; Start 12/25/16 at 23:00; Stop 12/27/16 at 13:56; Status DC Morphine Sulfate (Morphine Inj) 2 mg Q3H PRN IV Pain 6-10 Last administered on 01/01/17 20:26; Start 12/25/16 at 23:00 Senna/Docusate Sodium (Rika-Colace) 1 tab BID PO Last administered on 08:56; Start 12/26/16 at 09:00 Magnesium Hydroxide (Milk Of Magnesia Liq) 30 ml Q12H PRN PO MILD - MODERATE CONSTIPATION; Start 12/25/16 at 23:00 Sennosides (Senokot) 17.2 mg Q12H PRN PO MODERATE - SEVERE CONSTIPATION; Start 12/25/16 at 23:00 Bisacodyl (Dulcolax Supp) 10 mg DAILY PRN RECTAL SEVERE CONSITIPATION; Start at 23:00 Lactulose (Lactulose Liq) 30 ml DAILY PRN PO SEVERE CONSITIPATION; Start at 23:00 Vancomycin HCl 2500 mg/Sodium Chloride 525 ml @ 250 mls/hr Q12H IV Last administered on 12/26/16 00:27; Start 12/26/16 at 01:00; Stop 12/26/16 at 04:00 ; Status DC Guaifenesin/ Dextromethorphan (Robitussin Dm 200-20 Mg/10 ml Liq) 10 ml Q4H PRN PO cough Last administered on 12/26/16 18:19; Start 12/26/16 at 01:45; Stop 12/26/16 at 19:43; Status DC Benzonatate (Tessalon) 100 mg Q4H PRN PO COUGH Last administered on 12/26/16 15:12; Start 12/26/16 at 05:15 Vancomycin HCl 2000 mg/Sodium Chloride 520 ml @ 260 mls/hr Q12H IV Last administered on 12/27/16 17:16; Start 12/26/16 at 13:00; Stop 12/27/16 at 18:13 ; Status DC Miscellaneous Information SPECIFIC LAB TO BE JASKARAN... ONCE ONCE .XX Last administered on 12/27/16 17:05; Start 12/27/16 at 12:45; Stop 12/27/16 at 12:46 ; Status DC Sodium Bicarbonate 50 ml @ As Directed STK-MED ONCE .ROUTE Last administered on 12/26/16 16:54; Start 12/26/16 at 16:54; Stop 12/26/16 at 16:55; Status DC Iohexol (Omnipaque 350 Inj) 71 ml STK-MED ONCE IV Last administered on 17:47; Start 12/26/16 at 17:47; Stop 12/26/16 at 17:48; Status DC Albuterol/ Ipratropium (Duoneb Neb) 1 ampule Q6HR WHILE AWAKE NEB NEB Last administered on 12/30/16 09:15; Start 12/26/16 at 20:00; Stop 12/30/16 at 20:00 ; Status DC Guaifenesin/ Codeine Phosphate (Robitussin Ac 200-20 Mg/10 ml Liq) 10 ml Q4H PRN PO codine; Start 12/26/16 at 19:45; Stop 12/29/16 at 11:01; Status DC Promethazine HCl/ Codeine (Phenergan-Codeine Liq) 5 ml Q4H PRN PO COUGH Last administered on 12/31/16 17:09; Start 12/26/16 at 20:00 Sodium Chloride 250 ml @ 15 mls/hr ONCE ONCE IV Last administered on 23:23; Start 12/26/16 at 23:15; Stop 12/27/16 at 15:54; Status DC Acetaminophen (Tylenol) 650 mg Q4H PRN PO SEE LABEL COMMENTS; Start 12/26/16 at 23:15; Stop 12/27/16 at 03:16; Status DC Diphenhydramine HCl (Benadryl) 25 mg Q4H PRN PO SEE LABEL COMMENTS; Start 12/26 at 23:15; Stop 12/27/16 at 03:16; Status DC Calcium Gluconate 1 gm/Dextrose 110 ml @ 110 mls/hr ONCE ONCE IV Last administered on 12/26/16 23:56; Start 12/26/16 at 23:30; Stop 12/27/16 at 00:29 ; Status DC Diphenhydramine HCl (Benadryl) 25 mg Q4H PRN PO SEE LABEL COMMENTS Last administered on 12/28/16 00:11; Start 12/27/16 at 04:15 Acetaminophen (Tylenol) 650 mg Q4H PRN PO SEE LABEL COMMENTS Last administered on 12/28/16 00:11; Start 12/27/16 at 04:15 Mupirocin (Bactroban 2% Oint) 1 applic TID TOPICAL Last administered on 08:56; Start 12/27/16 at 14:15 Dexamethasone (Decadron) 4 mg Q12HR PO ; Start 12/27/16 at 21:00; Stop 12/27/16 at 21:00; Status DC Dexamethasone (Decadron) 4 mg ONCE ONCE PO Last administered on 12/27/16 14: 30; Start 12/27/16 at 14:00; Stop 12/27/16 at 14:01; Status DC Oxycodone HCl (Roxicodone) 5 mg Q6H PRN PO PAIN 1-10 Last administered on 21:56; Start 12/27/16 at 14:00 Lisinopril (Prinivil) 10 mg DAILY PO ; Start 12/28/16 at 15:00; Stop 12/28/16 at 15:00; Status DC Clonidine (Catapres) 0.2 mg Q6H PRN PO SBP > 160; Start 12/27/16 at 14:15; Stop 12/27/16 at 14:15; Status DC Diatrizoate Meglum/ Diatrizoate Sod ( Gastroview Liq) 18 ml ONCE ONCE PO Last administered on 12/27/16 17:16; Start 12/27/16 at 16:45; Stop 12/27/16 at 16:46; Status DC Albuterol Sulfate (Albuterol Concentrated Neb) 2.5 mg STRUCTURAL ENGINEER NEB ; Start 12/27 at 16:45; Stop 12/31/16 at 16:44; Status DC Lidocaine HCl (Lidocaine Pf 4% Neb) 3 ml STRUCTURAL ENGINEER NEB ; Start 12/27/16 at 16:45 ; Stop 12/31/16 at 16:44; Status DC Vancomycin HCl 2000 mg/Sodium Chloride 520 ml @ 260 mls/hr Q12H IV Last administered on 12/29/16 02:15; Start 12/28/16 at 05:00; Stop 12/29/16 at 03:00 ; Status DC Miscellaneous Information SPECIFIC LAB TO BE DRAWN:VANCOMY... ONCE ONCE .XX ; Start 12/29/16 at 04:45; Stop 12/29/16 at 04:46; Status DC Sodium Chloride 250 ml @ 15 mls/hr ONCE ONCE IV ; Start 12/27/16 at 18:30; Stop 12/27/16 at 18:38; Status DC Sodium Chloride 250 ml @ 15 mls/hr ONCE ONCE IV ; Start 12/27/16 at 18:45; Stop 12/28/16 at 11:24; Status DC Gadodiamide (Omniscan Pf Inj) 30 ml STK-MED ONCE IVCONTRAST Last administered on 12/27/16 22:10; Start 12/27/16 at 22:10; Stop 12/27/16 at 22:11; Status DC Iohexol (Omnipaque 350 Inj) 95 ml STK-MED ONCE IVCONTRAST Last administered on 12/27/16 23:00; Start 12/27/16 at 23:00; Stop 12/27/16 at 23:03; Status DC Lactated Ringer's 1,000 ml @ 30 mls/hr Q24H PRN IV SEE LABEL COMMENTS; Start at 06:15; Stop 12/31/16 at 06:14; Status DC Sodium Chloride 500 ml @ 30 mls/hr [id number] PRN IV SEE LABEL COMMENTS; Start at 06:15; Stop 12/31/16 at 06:14; Status DC Povidone Iodine (Betadine 5% Antisepsis Kit) 1 applic STRUCTURAL ENGINEER PRN EACH NARE SEE LABEL COMMENTS; Start 12/28/16 at 06:15; Stop 12/31/16 at 06:14; Status DC Chlorhexidine Gluconate (Chlorhexidine 2% Cloth) 3 pack STRUCTURAL ENGINEER PRN TOPICAL SEE LABEL COMMENTS; Start 12/28/16 at 06:15; Stop 12/31/16 at 06:14; Status DC Insulin Human Regular (NovoLIN R INJ) See Protocol Table ... STRUCTURAL ENGINEER PRN SQ SEE PROTOCOL TABLE; Start 12/28/16 at 06:15; Stop 12/31/16 at 06:14; Status DC Dextrose 1,000 ml @ 84 mls/hr [id number] IV Last administered on 01/01/17 22:03 ; Start 12/28/16 at 09:00 Calcium Carbonate (Tums Chew) 500 mg Q6H PRN CHEW DYSPEPSIA OR HEARTBURN; Start 12/28/16 at 14:00 Pantoprazole Sodium (Protonix) 20 mg DAILY PO Last administered on 01/02/17 08 :54; Start 12/29/16 at 09:00 Famotidine (Pepcid Inj) 20 mg ONCE ONCE IV PUSH Last administered on 14:27; Start 12/28/16 at 14:20; Stop 12/28/16 at 14:21; Status DC Lidocaine HCl (Xylocaine 1% Inj) 20 ml STK-MED ONCE .ROUTE Last administered on 12/28/16 14:49; Start 12/28/16 at 14:49; Stop 12/28/16 at 14:50; Status DC Sodium Chloride (Sodium Chloride 0.9% Inj) 40 ml STK-MED ONCE .ROUTE ; Start at 15:54; Stop 12/28/16 at 15:55; Status DC Lidocaine HCl (Xylocaine 2% Inj) 50 ml STK-MED ONCE .ROUTE ; Start 12/28/16 at 15:55; Stop 12/28/16 at 15:56; Status DC Lidocaine HCl (Xylocaine 2% Viscous) 15 ml STK-MED ONCE .ROUTE ; Start 12/28/16 at 15:55; Stop 12/28/16 at 15:56; Status DC Lidocaine HCl (Xylocaine-Mpf 4% Inj) 5 ml STK-MED ONCE .ROUTE ; Start 12/28/16 at 15:55; Stop 12/28/16 at 15:56; Status DC Epinephrine HCl (Adrenalin (1:1000) Inj) 2 mg STK-MED ONCE .ROUTE ; Start at 15:55; Stop 12/28/16 at 15:56; Status DC Fentanyl Citrate (fentaNYL INJ) 250 mcg STK-MED ONCE .ROUTE Last administered on 12/28/16 16:38; Start 12/28/16 at 16:38; Stop 12/28/16 at 16:39; Status DC Midazolam HCl (Versed Inj) 4 mg STK-MED ONCE .ROUTE Last administered on 16:38; Start 12/28/16 at 16:38; Stop 12/28/16 at 16:39; Status DC Sugammadex Sodium (Bridion Inj) 400 mg STK-MED ONCE IV PUSH ; Start 12/28/16 at 17:30; Stop 12/28/16 at 17:31; Status DC Albuterol Sulfate (Albuterol Neb) 2.5 mg UNSCH X1 PRN NEB SHORTNESS OF BREATH; Start 12/28/16 at 18:15; Stop 12/29/16 at 18:14; Status DC Albuterol Sulfate (*ALBUTEROL NEB PERIprocedure ONLY) 2.5 mg STK-MED ONCE NEB Last administered on 12/28/16 18:20; Start 12/28/16 at 18:20; Stop 12/28/16 at 18:21; Status DC Fentanyl Citrate (fentaNYL INJ) 100 mcg STK-MED ONCE .ROUTE ; Start 12/28/16 at 18:27; Stop 12/28/16 at 18:28; Status DC Miscellaneous Information ALL NURSING DEPARTME... UNSCH PRN .XX SEE LABEL COMMENTS; Start 12/28/16 at 18:45; Stop 12/29/16 at 18:44; Status DC Lorazepam (Ativan Inj) 2 mg STK-MED ONCE .ROUTE ; Start 12/28/16 at 18:35; Stop 12/28/16 at 18:36; Status DC Cefepime HCl 2000 mg/Sodium Chloride 100 ml @ 200 mls/hr Q12H IV Last administered on 12/29/16 09:08; Start 12/28/16 at 21:00; Stop 12/29/16 at 22:34 ; Status DC Fluconazole/ Sodium Chloride 200 ml @ 100 mls/hr Q24H IV Last administered on 01/01/17 23:24; Start 12/28/16 at 22:00 Azithromycin 500 mg/Sodium Chloride 250 ml @ 250 mls/hr Q24H IV Last administered on 01/01/17 21:41; Start 12/28/16 at 20:00 Fentanyl Citrate (fentaNYL INJ) 100 mcg STK-MED ONCE .ROUTE ; Start 12/28/16 at 19:47; Stop 12/28/16 at 19:48; Status DC Vancomycin HCl 2000 mg/Sodium Chloride 520 ml @ 260 mls/hr Q12H IV Last administered on 12/30/16 16:14; Start 12/29/16 at 14:00; Stop 12/30/16 at 20:00 ; Status DC Miscellaneous Information SPECIFIC LAB TO BE DRAWN:VANCOMYCIN TROUGH DATE TO... ONCE ONCE .XX Last administered on 12/30/16 02:00; Start 12/30/16 at 01:45; Stop 12/30/16 at 01:46; Status DC Methylprednisolone Sodium Succinate (SoluMEDROL INJ) 40 mg ONCE ONCE IV PUSH Last administered on 12/29/16 22:08; Start 12/29/16 at 21:15; Stop 12/29/16 at 21:16; Status DC Methylprednisolone Sodium Succinate (SoluMEDROL INJ) 125 mg NOW ONCE IV ; Start 12/29/16 at 21:30; Stop 12/29/16 at 21:30; Status DC Allopurinol (Zyloprim) 200 mg BID PO Last administered on 01/02/17 08:54; Start 12/29/16 at 22:00 Cefepime HCl 2000 mg/Sodium Chloride 100 ml @ 200 mls/hr Q12H IV Last administered on 01/01/17 23:25; Start 12/29/16 at 23:00 Sodium Chloride (NS Flush) 5 ml DAILY IV FLUSH ; Start 12/30/16 at 09:00 Heparin Sodium (Porcine) (Heparin Central Flush) 500 units DAILY IV FLUSH ; Start 12/30/16 at 09:00 Sodium Chloride (NS Flush) 5 ml UNSCH PRN IV FLUSH SEE PROTOCOL TABLE; Start at 06:30 Heparin Sodium (Porcine) (Heparin Central Flush) 500 units UNSCH PRN IV FLUSH SEE PROTOCOL TABLE Last administered on 12/31/16 15:45; Start 12/30/16 at 06:30 Acetaminophen (Tylenol) 650 mg ONCE ONCE PO Last administered on 12/30/16 10: 38; Start 12/30/16 at 08:30; Stop 12/30/16 at 08:31; Status DC Diphenhydramine HCl (Benadryl) 25 mg ONCE ONCE PO Last administered on 10:37; Start 12/30/16 at 08:30; Stop 12/30/16 at 08:31; Status DC Methylprednisolone Sodium Succinate (SoluMEDROL INJ) 40 mg ONCE ONCE IV PUSH Last administered on 12/30/16 10:37; Start 12/30/16 at 10:00; Stop 12/30/16 at 10:04; Status DC Cefazolin Sodium/ Dextrose 50 ml @ 100 mls/hr STRUCTURAL ENGINEER IV ; Start 12/30/16 at 10:30; Stop 01/03/17 at 10:29 Methylprednisolone Sodium Succinate (SoluMEDROL INJ) 40 mg ONCE IM ; Start 12/31 at 07:00; Status UNV Granisetron HCl 1 mg/Dexamethasone Sodium Phosphate 20 mg/Sodium Chloride 56 ml @ 336 mls/hr Q24H IV Last administered on 01/01/17 23:59; Start 12/31/16 at 17:30; Stop 01/06/17 at 17:39 Midazolam HCl (Versed Inj) 4 mg STK-MED ONCE .ROUTE Last administered on 14:40; Start 12/31/16 at 14:40; Stop 12/31/16 at 14:41; Status DC Fentanyl Citrate (fentaNYL INJ) 250 mcg STK-MED ONCE .ROUTE Last administered on 12/31/16 14:40; Start 12/31/16 at 14:40; Stop 12/31/16 at 14:41; Status DC Cytarabine 200 mg/ Sodium Chloride 500 ml @ 20.833 mls/ hr Q24H IV Last administered on 01/02/17 01:17; Start 12/31/16 at 18:30; Stop 01/07/17 at 18:29 Daunorubicin HCl 180 mg/Sodium Chloride 136 ml @ 272 mls/hr Q24H IV Last administered on 01/02/17 00:44; Start 12/31/16 at 18:00; Stop 01/02/17 at 18:29 Lidocaine/ Epinephrine (Xylocaine-Epi Mpf 2%-1:200,000 Inj) 20 ml STK-MED ONCE .ROUTE Last administered on 12/31/16 15:19; Start 12/31/16 at 15:08; Stop at 15:09; Status DC Heparin Sodium (Porcine) (Heparin Central Flush) 500 units UNSCH IV FLUSH ; Start 12/31/16 at 15:45 Sodium Chloride (NS Flush) 5 ml UNSCH PRN IVF SEE PROTOCOL; Start 12/31/16 at 15:45 Heparin Sodium (Porcine) (Heparin Central Flush) 250 units UNSCH PRN IV FLUSH SEE PROTOCOL; Start 12/31/16 at 15:45 Methylprednisolone Sodium Succinate (SoluMEDROL INJ) 40 mg ONCE ONCE IV Last administered on 12/31/16 21:09; Start 12/31/16 at 17:00; Stop 12/31/16 at 17:01 ; Status DC A/P Problem List: (1) SIRS (systemic inflammatory response syndrome) ICD Code: R65.10 - Systemic inflammatory response syndrome (SIRS) of non- infectious origin without acute organ dysfunction Status: Acute (2) GABRIELA (acute kidney injury) ICD Code: N17.9 - Acute kidney failure, unspecified Status: Acute (3) Thrombocytopenia ICD Code: D69.6 - Thrombocytopenia, unspecified Status: Acute (4) Lymphocytosis ICD Code: D72.820 - Lymphocytosis (symptomatic) Status: Acute (5) Anemia ICD Code: D64.9 - Anemia, unspecified Status: Acute Assessment and Plan Neutropenic fever of likely underlying pneumonia due to underlying hypoxia and CT scan findings - Blood culture no growth to date, CSF cultures no growth to date, , continuing broad-spectrum antibiotics with vancomycin and cefepime, additionally on azithromycin and fluconazole per infectious disease. Fevers have not recurred for the last 72 hours. bronchioloalveolar lavage and Cultures currently negative acute respiratory failure with hypoxia likely due to underlying pneumonia -improving on antibiotics; continue oxygen support and wean as tolerated. 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 Pancytopenia - Hematology proceeding with induction therapy, secondary to #3. GABRIELA: Resolved DVT prophylaxis pharmaceutical anticoagulation contraindicated due to pancytopenia. Bia Small MD Jan 02, 2017 10:59
[2017-01-02] MEDS: CEFEPIME INJ 2,000 MG in SODIUM CHLORIDE 0.9% INJ 100 ML IV SCH ×2 (11:39→23:28)
--- NOTE | 2017-01-02 12:32 | PD.ONC.PN ---
Subjective Subjective Remarks Afebrile Tolerating chemotherapy well with no acute complaints Friends at bedside Objective Data Date Time Temp Pulse Resp B/P (MAP) Pulse Ox O2 Delivery O2 Flow Rate FiO2 01/02/17 10:56 94 Nasal Cannula 6.00 01/02/17 08:00 96.8 105 18 117/82 (94) 97 01/02/17 04:14 88 01/02/17 04:00 96.3 85 18 119/56 (77) 95 01/02/17 03:30 96 Nasal Cannula 6.00 01/02/17 03:30 96 Nasal Cannula 6.00 01/02/17 00:38 74 01/02/17 00:26 74 115/58 (77) 01/02/17 00:00 95.9 80 18 135/63 (87) 97 01/01/17 20:45 96.8 86 20 141/55 (83) 96 01/01/17 16:00 80 01/01/17 16:00 97.6 90 20 122/63 (82) 96 01/02/17 01/02/17 01/02/17 07:00 15:00 23:00 Output Total 1350 ml 700 ml Balance -1350 ml -700 ml Result Diagram: 01/02/17 0400 01/02/17 0400 Laboratory Results Laboratory Tests Test 01/02/17 04:00 White Blood Count 3.3 TH/MM3 Red Blood Count 2.23 MIL/MM3 Hemoglobin 7.4 GM/DL Hematocrit 21.4 % Mean Corpuscular Volume 96.0 FL Mean Corpuscular Hemoglobin 33.2 PG Mean Corpuscular Hemoglobin Concent 34.6 % Red Cell Distribution Width 18.3 % Platelet Count 53 TH/MM3 Mean Platelet Volume 7.3 FL CBC Comment AUTO DIFF Differential Total Cells Counted 100 Neutrophils % (Manual) 16 % Band Neutrophils % 2 % Lymphocytes % 21 % Monocytes % 54 % Neutrophils # (Manual) 0.6 TH/MM3 Differential Comment FINAL DIFF MANUAL Blastocytes 7 % Platelet Estimate LOW Platelet Morphology Comment NORMAL Fibrinogen 330 mg/dL Blood Urea Nitrogen 16 MG/DL Creatinine 0.73 MG/DL Random Glucose 158 MG/DL Total Protein 6.9 GM/DL Albumin 2.7 GM/DL Calcium Level 7.5 MG/DL Phosphorus Level 3.9 MG/DL Magnesium Level 2.9 MG/DL Uric Acid 2.7 MG/DL Alkaline Phosphatase 41 U/L Aspartate Amino Transf (AST/SGOT) 10 U/L Alanine Aminotransferase (ALT/SGPT) 42 U/L Total Bilirubin 0.7 MG/DL Sodium Level 138 MEQ/L Potassium Level 4.2 MEQ/L Chloride Level 104 MEQ/L Carbon Dioxide Level 26.8 MEQ/L Anion Gap 7 MEQ/L Estimat Glomerular Filtration Rate 132 ML/MIN Culture Results Microbiology Date/Time Source Procedure Growth Status 12/31/16 00:50 Urine Random Urine Legionella Antigen - Final PRESUMPTIVE NEGATIVE FOR LEGIONELLA P... Complete 12/31/16 00:50 Urine Random Urine Streptococcus pneumoniae Antigen (M - Final PRESUMPTIVE NEGATIVE FOR STREPTOCOCCU... Complete Administered Medications Medications (Trade) Dose Ordered Sig/Emma Route PRN Reason Start Time Stop Time Status Last Admin Dose Admin Sodium Chloride (NS Flush) 2 ml UNSCH PRN IV FLUSH FLUSH AFTER USING IV ACCESS 12/25/16 23:00 12/30/16 04:59 Sodium Chloride (NS Flush) 2 ml BID IV FLUSH 12/26/16 09:00 12/31/16 22:37 Ondansetron HCl (Zofran Inj) 4 mg Q6H PRN IVP NAUSEA OR VOMITING 12/25/16 23:00 01/01/17 23:59 Acetaminophen (Tylenol) 650 mg Q6H PRN PO FEVER>100.4 12/25/16 23:00 12/29/16 22:30 Morphine Sulfate (Morphine Inj) 2 mg Q3H PRN IV Pain 6-10 12/25/16 23:00 01/01/17 20:26 Senna/Docusate Sodium (Rika-Colace) 1 tab BID PO 12/26/16 09:00 01/02/17 08:56 Benzonatate (Tessalon) 100 mg Q4H PRN PO COUGH 12/26/16 05:15 12/26/16 15:12 Promethazine HCl/ Codeine (Phenergan-Codeine Liq) 5 ml Q4H PRN PO COUGH 12/26/16 20:00 12/31/16 17:09 Diphenhydramine HCl (Benadryl) 25 mg Q4H PRN PO SEE LABEL COMMENTS 12/27/16 04:15 12/28/16 00:11 Acetaminophen (Tylenol) 650 mg Q4H PRN PO SEE LABEL COMMENTS 12/27/16 04:15 12/28/16 00:11 Mupirocin (Bactroban 2% Oint) 1 applic TID TOPICAL 12/27/16 14:15 01/02/17 08:56 Oxycodone HCl (Roxicodone) 5 mg Q6H PRN PO PAIN 1-10 12/27/16 14:00 12/28/16 21:56 Dextrose 1,000 ml @ 84 mls/hr [id number] IV 12/28/16 09:00 01/01/17 22:03 Pantoprazole Sodium (Protonix) 20 mg DAILY PO 12/29/16 09:00 01/02/17 08:54 Fluconazole/ Sodium Chloride 200 ml @ 100 mls/hr Q24H IV 12/28/16 22:00 01/01/17 23:24 Azithromycin 500 mg/Sodium Chloride 250 ml @ 250 mls/hr Q24H IV 12/28/16 20:00 01/01/17 21:41 Allopurinol (Zyloprim) 200 mg BID PO 12/29/16 22:00 01/02/17 08:54 Cefepime HCl 2000 mg/Sodium Chloride 100 ml @ 200 mls/hr Q12H IV 12/29/16 23:00 01/02/17 11:39 Heparin Sodium (Porcine) (Heparin Central Flush) 500 units UNSCH PRN IV FLUSH SEE PROTOCOL TABLE 12/30/16 06:30 12/31/16 15:45 Granisetron HCl 1 mg/Dexamethasone Sodium Phosphate 20 mg/Sodium Chloride 56 ml @ 336 mls/hr Q24H IV 12/31/16 17:30 01/06/17 17:39 01/01/17 23:59 Cytarabine 200 mg/ Sodium Chloride 500 ml @ 20.833 mls/ hr Q24H IV 12/31/16 18:30 01/07/17 18:29 01/02/17 01:17 Daunorubicin HCl 180 mg/Sodium Chloride 136 ml @ 272 mls/hr Q24H IV 12/31/16 18:00 01/02/17 18:29 01/02/17 00:44 Objective Remarks GENERAL: Obese younger male resting in bed on 6L nasal cannula. Friends at bedside. SKIN: Warm and dry. Infusaport to R chest. HEAD: Normocephalic. EYES: No injection or drainage. NECK: Supple, trachea midline. CARDIOVASCULAR: Regular rate and rhythm RESPIRATORY: Clear anteriorly. O2 reduced to 5L, as he was 98% on 6L. GASTROINTESTINAL: Abdomen obese. Nontender to palpation. EXTREMITIES: No cyanosis. No edema. NEUROLOGICAL: No obvious focal deficit. Awake, alert, and oriented x3. Assessment/Plan Assessment 26 y/o male with no major past medical history who was brought in for headache, confusion and cough. Plan 1. Patient tolerating day two chemotherapy. 2. Monitor for tumor lysis syndrome 3. It appears as though he has a good support group as there are always multiple people in the room seeing him. 4. We will decrease IV fluids to 42 mL per hour, as he is taking in fluids by mouth very well Attending Statement The exam, history, and the medical decision-making described in the above note were completed with the assistance of the mid-level provider. I reviewed and agree with the findings presented. I attest that I had a [id number] encounter with the patient on the same day, and personally performed and documented my assessment and findings in the medical record. tolerating day 3 well without complication. will continue tx. I asked him to be less sedentary due to obvious risks of spending every day in bed. no evidence of DIC with fibrinogen of 400 Robina Cui Jan 02, 2017 12:32 Talha Hernandez MD Jan 02, 2017 17:23
[2017-01-02] MEDS: SODIUM CHLOR 0.9% 1000 ML INJ 1,000 ML IV SCH (12:45)
--- NOTE | 2017-01-02 18:48 | EKG ---
Date Performed: 01/01/2017 Time Performed: 11:40:37 PTAGE: 26 years EKG: Sinus rhythm MODERATE INTRAVENTRICULAR CONDUCTION DELAY NONSPECIFIC T-WAVE ABNORMALITY BORDERLINE ECG PREVIOUS TRACING : 12/27/2016 17.37 \1 DOCTOR: Antione Story Interpretating Date/Time 01/02/2017 18:46:44
[2017-01-02] MEDS: AZITHROMYCIN INJ 500 MG in SODIUM CHLOR 0.9% 250 ML INJ 250 ML IV SCH (20:50)
[2017-01-02] MEDS: FLUCONAZOLE 400 MG PREMIX BAG 200 ML IV SCH (22:08)
[2017-01-02] MEDS: MORPHINE SULFATE 4 MG/ML INJ IV PRN (22:16)
[2017-01-03] VITALS (8 sets, daily range): BP systolic 116–151; BP diastolic 56–77; PULSE 73–111; RESP 17–20; TEMP 96.1–98.3; O2SAT 92–97
[2017-01-03] MEDS: SODIUM CHLOR 0.9% 1000 ML INJ 1,000 ML IV SCH (01:25)
[2017-01-03] MEDS: GRANISETRON INJ 1 MG, DEXAMETHASONE INJ 20 MG in SODIUM CHLORIDE 0.9% INJ 50 ML IV SCH (01:28)
[2017-01-03] MEDS: DAUNORUBICIN IV SCH (01:51)
[2017-01-03] MEDS: SODIUM CHLORIDE 0.9% IV SCH (01:51)
[2017-01-03] MEDS: CYTARABINE IV SCH (02:38)
[2017-01-03] MEDS: SODIUM CHLORID 0.9% IV SCH (02:38)
--- NOTE | 2017-01-03 05:51 | RADRPT ---
EXAM DATE/TIME: 01/03/2017 04:42 [place] COMPARISON: CHEST SINGLE AP, December 29, 2016, 15:30. INDICATIONS : Shortness of breath, possible pulmonary disease. MEDICAL HISTORY : Lymphocytosis. SURGICAL HISTORY : None. ENCOUNTER: Subsequent ACUITY: 1 week PAIN SCORE: 0/10 LOCATION: Bilateral chest FINDINGS: A single view of the chest demonstrates the lungs to be symmetrically aerated without evidence of mas s, infiltrate or effusion. The cardiomediastinal contours are unremarkable. Osseous structures are intact. CONCLUSION: Normal examination. Right IJ Johxiq-c-Esir catheter in excellent position. Lungs are clear. Enrique Ramos MD on January 03, 2017 at 5:49 Board Certified Radiologist. This report was verified electronically.
[2017-01-03 06:20] LABS: HEMATOCRIT 22.8 % (39.0-51.0); MEAN CELL VOLUME 95.7 FL (80.0-100.0); MEAN CORPUSCULAR HEMOGLOBIN 32.3 PG (27.0-34.0); MEAN CORPUSCULAR HGB CONC 33.7 % (32.0-36.0); PLATELET COUNT 54 TH/MM3 (150-450); RED BLOOD COUNT 2.38 MIL/MM3 (4.50-5.90); RED CELL DISTRIBUTION WIDTH 18.1 % (11.6-17.2); WHITE BLOOD COUNT 1.2 TH/MM3 (4.0-11.0)
[2017-01-03 06:23] LABS: HEMO FLAGS AUTO DIFF
[2017-01-03 07:12] LABS: ANION GAP 5 MEQ/L (5-15); AST (GOT) 18 U/L (15-37); BICARBONATE 27.9 MEQ/L (21.0-32.0); BLOOD UREA NITROGEN 17 MG/DL (7-18); CHLORIDE 104 MEQ/L (98-107); GLOMERULAR FILTRATION RATE 146 ML/MIN (>89); POTASSIUM 4.5 MEQ/L (3.5-5.1); SODIUM (NA) 137 MEQ/L (136-145); URIC ACID 2.3 MG/DL (2.6-7.2)
[2017-01-03 07:13] LABS: ALT (GPT) 63 U/L (12-78)
[2017-01-03 07:15] LABS: ALKALINE PHOSPHATASE 34 U/L (45-117); TOTAL BILIRUBIN ADULT 0.6 MG/DL (0.2-1.0)
[2017-01-03 08:07] LABS: BLASTS 6 % (0-0); NEUTROPHIL # MANUAL DIFF 0.3 TH/MM3 (1.8-7.7); POLYS (SEG NEUTROPHILS) 21 % (16-70); WBC DIFF SAMPLE 100
[2017-01-03 08:08] LABS: PLATELET ESTIMATE SMEAR LOW (NORMAL); PLATELET MORPHOLOGY NORMAL (NORMAL); SCAN/DIFF FINAL DIFF MANUAL
[2017-01-03] MEDS: SODIUM CHLORIDE 0.9% FLUSH 10 ML FLUSH IV FLUSH SCH ×2 (09:00→21:00)
[2017-01-03] MEDS: MUPIROCIN 2% OINT 22 GM TUBE TOPICAL SCH ×3 (09:00→18:00)
[2017-01-03] MEDS: Hickman Catheter Daily NS Lock Flush IV FLUSH SCH (09:00)
[2017-01-03] MEDS: SODIUM CHLORIDE 0.9% FLUSH 10 ML FLUSH IV FLUSH PRN (09:26)
[2017-01-03] MEDS: DOCUSATE SODIUM 50 MG/SENNA 8.6 MG TAB PO SCH ×2 (09:27→21:17)
[2017-01-03] MEDS: PANTOPRAZOLE SOD 20 MG DELAYED RELEASE TAB PO SCH (09:27)
[2017-01-03] MEDS: ALLOPURINOL 100 MG TAB PO SCH ×2 (09:27→21:17)
--- NOTE | 2017-01-03 10:19 | PD.ONC.PN ---
Subjective Subjective Remarks Pt sitting up in bed in no distress Reports he feels tired Tolerating chemo OK Objective Data Date Time Temp Pulse Resp B/P (MAP) Pulse Ox O2 Delivery O2 Flow Rate FiO2 01/03/17 07:40 96.1 92 20 142/71 (94) 93 01/03/17 04:00 97.0 87 20 120/64 (82) 94 01/03/17 04:00 73 01/03/17 00:00 97.6 88 20 129/61 (83) 97 01/03/17 00:00 97.6 88 20 129/61 (83) 97 01/03/17 00:00 84 01/02/17 20:41 87 01/02/17 20:00 97.4 87 20 128/60 (82) 99 01/02/17 17:45 96.4 87 18 121/57 (78) 96 01/02/17 12:00 96.4 93 18 130/61 (84) 96 01/02/17 10:56 94 Nasal Cannula 6.00 01/03/17 01/03/17 01/03/17 07:00 15:00 23:00 Intake Total 1185.2 ml Output Total 2350 ml Balance -1164.8 ml Result Diagram: 01/03/17 0530 01/03/17 0530 Laboratory Results Laboratory Tests Test 01/03/17 05:30 White Blood Count 1.2 TH/MM3 Red Blood Count 2.38 MIL/MM3 Hemoglobin 7.7 GM/DL Hematocrit 22.8 % Mean Corpuscular Volume 95.7 FL Mean Corpuscular Hemoglobin 32.3 PG Mean Corpuscular Hemoglobin Concent 33.7 % Red Cell Distribution Width 18.1 % Platelet Count 54 TH/MM3 Mean Platelet Volume 7.2 FL CBC Comment AUTO DIFF Differential Total Cells Counted 100 Neutrophils % (Manual) 21 % Lymphocytes % 26 % Monocytes % 47 % Neutrophils # (Manual) 0.3 TH/MM3 Differential Comment FINAL DIFF MANUAL Blastocytes 6 % Platelet Estimate LOW Platelet Morphology Comment NORMAL Fibrinogen 246 mg/dL Blood Urea Nitrogen 17 MG/DL Creatinine 0.67 MG/DL Random Glucose 128 MG/DL Total Protein 6.7 GM/DL Albumin 2.8 GM/DL Calcium Level 7.7 MG/DL Phosphorus Level 4.1 MG/DL Magnesium Level 3.0 MG/DL Uric Acid 2.3 MG/DL Alkaline Phosphatase 34 U/L Aspartate Amino Transf (AST/SGOT) 18 U/L Alanine Aminotransferase (ALT/SGPT) 63 U/L Total Bilirubin 0.6 MG/DL Sodium Level 137 MEQ/L Potassium Level 4.5 MEQ/L Chloride Level 104 MEQ/L Carbon Dioxide Level 27.9 MEQ/L Anion Gap 5 MEQ/L Estimat Glomerular Filtration Rate 146 ML/MIN Imaging Studies Last 24 hours Impressions Chest X-Ray 01/03/17 0600 Signed Impressions: Service Date/Time: Tuesday, January 03, 2017 04:42 - CONCLUSION: Normal examination. Right IJ Dganiq-k-Nchr catheter in excellent position. Lungs are clear. Enrique Ramos MD Administered Medications Medications (Trade) Dose Ordered Sig/Emma Route PRN Reason Start Time Stop Time Status Last Admin Dose Admin Sodium Chloride (NS Flush) 2 ml UNSCH PRN IV FLUSH FLUSH AFTER USING IV ACCESS 12/25/16 23:00 12/30/16 04:59 Sodium Chloride (NS Flush) 2 ml BID IV FLUSH 12/26/16 09:00 12/31/16 22:37 Ondansetron HCl (Zofran Inj) 4 mg Q6H PRN IVP NAUSEA OR VOMITING 12/25/16 23:00 01/01/17 23:59 Acetaminophen (Tylenol) 650 mg Q6H PRN PO FEVER>100.4 12/25/16 23:00 12/29/16 22:30 Morphine Sulfate (Morphine Inj) 2 mg Q3H PRN IV Pain 6-10 12/25/16 23:00 01/02/17 22:16 Senna/Docusate Sodium (Rika-Colace) 1 tab BID PO 12/26/16 09:00 01/03/17 09:27 Benzonatate (Tessalon) 100 mg Q4H PRN PO COUGH 12/26/16 05:15 12/26/16 15:12 Promethazine HCl/ Codeine (Phenergan-Codeine Liq) 5 ml Q4H PRN PO COUGH 12/26/16 20:00 12/31/16 17:09 Diphenhydramine HCl (Benadryl) 25 mg Q4H PRN PO SEE LABEL COMMENTS 12/27/16 04:15 12/28/16 00:11 Acetaminophen (Tylenol) 650 mg Q4H PRN PO SEE LABEL COMMENTS 12/27/16 04:15 12/28/16 00:11 Mupirocin (Bactroban 2% Oint) 1 applic TID TOPICAL 12/27/16 14:15 01/03/17 09:00 Oxycodone HCl (Roxicodone) 5 mg Q6H PRN PO PAIN 1-10 12/27/16 14:00 12/28/16 21:56 Pantoprazole Sodium (Protonix) 20 mg DAILY PO 12/29/16 09:00 01/03/17 09:27 Fluconazole/ Sodium Chloride 200 ml @ 100 mls/hr Q24H IV 12/28/16 22:00 01/02/17 22:08 Azithromycin 500 mg/Sodium Chloride 250 ml @ 250 mls/hr Q24H IV 12/28/16 20:00 01/02/17 20:50 Allopurinol (Zyloprim) 200 mg BID PO 12/29/16 22:00 01/03/17 09:27 Cefepime HCl 2000 mg/Sodium Chloride 100 ml @ 200 mls/hr Q12H IV 12/29/16 23:00 01/02/17 23:28 Heparin Sodium (Porcine) (Heparin Central Flush) 500 units UNSCH PRN IV FLUSH SEE PROTOCOL TABLE 12/30/16 06:30 12/31/16 15:45 Granisetron HCl 1 mg/Dexamethasone Sodium Phosphate 20 mg/Sodium Chloride 56 ml @ 336 mls/hr Q24H IV 12/31/16 17:30 01/06/17 17:39 01/03/17 01:28 Cytarabine 200 mg/ Sodium Chloride 500 ml @ 20.833 mls/ hr Q24H IV 12/31/16 18:30 01/07/17 18:29 01/03/17 02:38 Sodium Chloride 1,000 ml @ 42 mls/hr [id number] IV 01/02/17 12:45 01/03/17 01:25 Objective Remarks GENERAL: Obese younger male resting in bed on 1L nasal cannula. SKIN: Warm and dry. Infusaport to R chest. HEAD: Normocephalic. EYES: No injection or drainage. NECK: Supple, trachea midline. CARDIOVASCULAR: Regular rate and rhythm RESPIRATORY: Clear anteriorly. On 1L NC, O2 sats at bedside showed 95%. GASTROINTESTINAL: Abdomen obese. Nontender to palpation. EXTREMITIES: No cyanosis. No edema. NEUROLOGICAL: No obvious focal deficit. Awake, alert, and oriented x3. Assessment/Plan Assessment 26 y/o male with no major past medical history who was brought in for headache, confusion and cough. Plan 1. Patient tolerating day three chemotherapy. 2. We discussed that this is a long process, and every day with no complications is a good day. 3. No transfusion today 4. CBC, CMP, uric acid, phosphatase, magnesium in a.m. Attending Statement The exam, history, and the medical decision-making described in the above note were completed with the assistance of the mid-level provider. I reviewed and agree with the findings presented. I attest that I had a [id number] encounter with the patient on the same day, and personally performed and documented my assessment and findings in the medical record. he is doing well and there have been no problems. will continue chemotherapy and monitor counts. Robina Cui Jan 03, 2017 10:19 Talha Hernandez MD Jan 03, 2017 16:46
--- NOTE | 2017-01-03 10:30 | HHI.PR ---
Subjective Remarks Patient currently getting chemotherapy. He has no complaints at the moment. He remains afebrile. Patient stated that he has been doing well. Objective Vitals Vital Signs Date Time Temp Pulse Resp B/P (MAP) Pulse Ox O2 Delivery O2 Flow Rate FiO2 01/03/17 07:40 96.1 92 20 142/71 (94) 93 01/03/17 04:00 97.0 87 20 120/64 (82) 94 01/03/17 04:00 73 01/03/17 00:00 97.6 88 20 129/61 (83) 97 01/03/17 00:00 97.6 88 20 129/61 (83) 97 01/03/17 00:00 84 01/02/17 20:41 87 01/02/17 20:00 97.4 87 20 128/60 (82) 99 01/02/17 17:45 96.4 87 18 121/57 (78) 96 01/02/17 12:00 96.4 93 18 130/61 (84) 96 01/02/17 10:56 94 Nasal Cannula 6.00 I/O 01/02/17 01/02/17 01/02/17 01/03/17 01/03/17 01/03/17 07:00 15:00 23:00 07:00 15:00 23:00 Intake Total 1680 ml 1432.4 ml 1185.2 ml Output Total 1350 ml 1600 ml 600 ml 2350 ml Balance -1350 ml 80 ml 832.4 ml -1164.8 ml Intake Oral 1680 ml 480 ml 480 ml IV Total 952.4 ml 705.2 ml Output Urine Total 1350 ml 1600 ml 600 ml 2350 ml Result Diagram: 01/03/1752901/03/17529 Objective Remarks GENERAL: In no acute distress. SKIN: Warm and dry. Port in place. No erythema or discharge noted around the port site. CARDIOVASCULAR: Regular rate and rhythm without murmurs, gallops, or rubs. RESPIRATORY: Breath sounds equal bilaterally. No accessory muscle use. GASTROINTESTINAL: Abdomen soft, non-tender, nondistended. Procedures 12/31 Rfamwi-s-Rlvl placement Medications and IVs Current Medications Acetaminophen (Tylenol) 650 mg ONCE ONCE PO Last administered on 12/25/16t 20: 28; Start 12/25/16 at 19:45; Stop 12/25/16 at 19:46; Status DC Sodium Chloride 1,000 ml @ 1,000 mls/hr Q1H ONCE IV Last administered on 20:27; Start 12/25/16 at 19:41; Stop 12/25/16 at 20:40; Status DC Sodium Chloride 1,000 ml @ 1,000 mls/hr Q1H ONCE IV Last administered on 20:41; Start 12/25/16 at 19:41; Stop 12/25/16 at 20:40; Status DC Sodium Chloride 1,000 ml @ 1,000 mls/hr Q1H ONCE IV Last administered on 21:09; Start 12/25/16 at 19:41; Stop 12/25/16 at 20:40; Status DC Sodium Chloride 900 ml @ 1,000 mls/hr Q54M ONCE IV Last administered on 21:46; Start 12/25/16 at 19:41; Stop 12/25/16 at 20:34; Status DC Prochlorperazine Edisylate (Compazine Inj) 10 mg ONCE ONCE IV PUSH Last administered on 12/25/16 20:28; Start 12/25/16 at 19:45; Stop 12/25/16 at 19:46 ; Status DC Diphenhydramine HCl (Benadryl Inj) 25 mg ONCE ONCE IV PUSH Last administered on 12/25/16 20:27; Start 12/25/16 at 19:45; Stop 12/25/16 at 19:46; Status DC Cefepime HCl 2000 mg/Sodium Chloride 100 ml @ 200 mls/hr ONCE STAT IV Last administered on 12/25/16 21:46; Start 12/25/16 at 21:13; Stop 12/25/16 at 21:42 ; Status DC Pharmacy Profile Note 0 ml @ 0 mls/hr UNSCH OTHER ; Start 12/25/16 at 23:00; Stop 12/30/16 at 20:00; Status DC Cefepime HCl 1000 mg/Sodium Chloride 100 ml @ 200 mls/hr Q12H IV Last administered on 12/28/16 08:18; Start 12/26/16 at 09:00; Stop 12/28/16 at 19:05 ; Status DC Sodium Chloride 1,000 ml @ 100 mls/hr Q10H IV Last administered on 12/27/16 17:17; Start 12/25/16 at 23:00; Stop 12/28/16 at 09:00; Status DC Sodium Chloride (NS Flush) 2 ml UNSCH PRN IV FLUSH FLUSH AFTER USING IV ACCESS Last administered on 12/30/16 04:59; Start 12/25/16 at 23:00 Sodium Chloride (NS Flush) 2 ml BID IV FLUSH Last administered on 12/31/16 22: 37; Start 12/26/16 at 09:00 Ondansetron HCl (Zofran Inj) 4 mg Q6H PRN IVP NAUSEA OR VOMITING Last administered on 01/01/17 23:59; Start 12/25/16 at 23:00 Acetaminophen (Tylenol) 650 mg Q6H PRN PO FEVER>100.4 Last administered on 12/29 22:30; Start 12/25/16 at 23:00 Acetaminophen/ Hydrocodone Bitart ([place] 5-325 Mg) 1 tab Q4H PRN PO PAIN SCALE 3 TO 5 Last administered on 12/27/16 12:05; Start 12/25/16 at 23:00; Stop 12/27/16 at 13:56; Status DC Morphine Sulfate (Morphine Inj) 2 mg Q3H PRN IV Pain 6-10 Last administered on 01/02/17 22:16; Start 12/25/16 at 23:00 Senna/Docusate Sodium (Rika-Colace) 1 tab BID PO Last administered on 09:27; Start 12/26/16 at 09:00 Magnesium Hydroxide (Milk Of Magnesia Liq) 30 ml Q12H PRN PO MILD - MODERATE CONSTIPATION; Start 12/25/16 at 23:00 Sennosides (Senokot) 17.2 mg Q12H PRN PO MODERATE - SEVERE CONSTIPATION; Start 12/25/16 at 23:00 Bisacodyl (Dulcolax Supp) 10 mg DAILY PRN RECTAL SEVERE CONSITIPATION; Start at 23:00 Lactulose (Lactulose Liq) 30 ml DAILY PRN PO SEVERE CONSITIPATION; Start at 23:00 Vancomycin HCl 2500 mg/Sodium Chloride 525 ml @ 250 mls/hr Q12H IV Last administered on 12/26/16 00:27; Start 12/26/16 at 01:00; Stop 12/26/16 at 04:00 ; Status DC Guaifenesin/ Dextromethorphan (Robitussin Dm 200-20 Mg/10 ml Liq) 10 ml Q4H PRN PO cough Last administered on 12/26/16 18:19; Start 12/26/16 at 01:45; Stop 12/26/16 at 19:43; Status DC Benzonatate (Tessalon) 100 mg Q4H PRN PO COUGH Last administered on 12/26/16 15:12; Start 12/26/16 at 05:15 Vancomycin HCl 2000 mg/Sodium Chloride 520 ml @ 260 mls/hr Q12H IV Last administered on 12/27/16 17:16; Start 12/26/16 at 13:00; Stop 12/27/16 at 18:13 ; Status DC Miscellaneous Information SPECIFIC LAB TO BE JASKARAN... ONCE ONCE .XX Last administered on 12/27/16 17:05; Start 12/27/16 at 12:45; Stop 12/27/16 at 12:46 ; Status DC Sodium Bicarbonate 50 ml @ As Directed STK-MED ONCE .ROUTE Last administered on 12/26/16 16:54; Start 12/26/16 at 16:54; Stop 12/26/16 at 16:55; Status DC Iohexol (Omnipaque 350 Inj) 71 ml STK-MED ONCE IV Last administered on 17:47; Start 12/26/16 at 17:47; Stop 12/26/16 at 17:48; Status DC Albuterol/ Ipratropium (Duoneb Neb) 1 ampule Q6HR WHILE AWAKE NEB NEB Last administered on 12/30/16 09:15; Start 12/26/16 at 20:00; Stop 12/30/16 at 20:00 ; Status DC Guaifenesin/ Codeine Phosphate (Robitussin Ac 200-20 Mg/10 ml Liq) 10 ml Q4H PRN PO codine; Start 12/26/16 at 19:45; Stop 12/29/16 at 11:01; Status DC Promethazine HCl/ Codeine (Phenergan-Codeine Liq) 5 ml Q4H PRN PO COUGH Last administered on 12/31/16 17:09; Start 12/26/16 at 20:00 Sodium Chloride 250 ml @ 15 mls/hr ONCE ONCE IV Last administered on 23:23; Start 12/26/16 at 23:15; Stop 12/27/16 at 15:54; Status DC Acetaminophen (Tylenol) 650 mg Q4H PRN PO SEE LABEL COMMENTS; Start 12/26/16 at 23:15; Stop 12/27/16 at 03:16; Status DC Diphenhydramine HCl (Benadryl) 25 mg Q4H PRN PO SEE LABEL COMMENTS; Start 12/26 at 23:15; Stop 12/27/16 at 03:16; Status DC Calcium Gluconate 1 gm/Dextrose 110 ml @ 110 mls/hr ONCE ONCE IV Last administered on 12/26/16 23:56; Start 12/26/16 at 23:30; Stop 12/27/16 at 00:29 ; Status DC Diphenhydramine HCl (Benadryl) 25 mg Q4H PRN PO SEE LABEL COMMENTS Last administered on 12/28/16 00:11; Start 12/27/16 at 04:15 Acetaminophen (Tylenol) 650 mg Q4H PRN PO SEE LABEL COMMENTS Last administered on 12/28/16 00:11; Start 12/27/16 at 04:15 Mupirocin (Bactroban 2% Oint) 1 applic TID TOPICAL Last administered on 09:00; Start 12/27/16 at 14:15 Dexamethasone (Decadron) 4 mg Q12HR PO ; Start 12/27/16 at 21:00; Stop 12/27/16 at 21:00; Status DC Dexamethasone (Decadron) 4 mg ONCE ONCE PO Last administered on 12/27/16 14: 30; Start 12/27/16 at 14:00; Stop 12/27/16 at 14:01; Status DC Oxycodone HCl (Roxicodone) 5 mg Q6H PRN PO PAIN 1-10 Last administered on 21:56; Start 12/27/16 at 14:00 Lisinopril (Prinivil) 10 mg DAILY PO ; Start 12/28/16 at 15:00; Stop 12/28/16 at 15:00; Status DC Clonidine (Catapres) 0.2 mg Q6H PRN PO SBP > 160; Start 12/27/16 at 14:15; Stop 12/27/16 at 14:15; Status DC Diatrizoate Meglum/ Diatrizoate Sod ( Gastrodebby Liq) 18 ml ONCE ONCE PO Last administered on 12/27/16 17:16; Start 12/27/16 at 16:45; Stop 12/27/16 at 16:46; Status DC Albuterol Sulfate (Albuterol Concentrated Neb) 2.5 mg SENIOR EXAMINER NEB ; Start 12/27 at 16:45; Stop 12/31/16 at 16:44; Status DC Lidocaine HCl (Lidocaine Pf 4% Neb) 3 ml SENIOR EXAMINER NEB ; Start 12/27/16 at 16:45 ; Stop 12/31/16 at 16:44; Status DC Vancomycin HCl 2000 mg/Sodium Chloride 520 ml @ 260 mls/hr Q12H IV Last administered on 12/29/16 02:15; Start 12/28/16 at 05:00; Stop 12/29/16 at 03:00 ; Status DC Miscellaneous Information SPECIFIC LAB TO BE DRAWN:VANCOMY... ONCE ONCE .XX ; Start 12/29/16 at 04:45; Stop 12/29/16 at 04:46; Status DC Sodium Chloride 250 ml @ 15 mls/hr ONCE ONCE IV ; Start 12/27/16 at 18:30; Stop 12/27/16 at 18:38; Status DC Sodium Chloride 250 ml @ 15 mls/hr ONCE ONCE IV ; Start 12/27/16 at 18:45; Stop 12/28/16 at 11:24; Status DC Gadodiamide (Omniscan Pf Inj) 30 ml STK-MED ONCE IVCONTRAST Last administered on 12/27/16 22:10; Start 12/27/16 at 22:10; Stop 12/27/16 at 22:11; Status DC Iohexol (Omnipaque 350 Inj) 95 ml STK-MED ONCE IVCONTRAST Last administered on 12/27/16 23:00; Start 12/27/16 at 23:00; Stop 12/27/16 at 23:03; Status DC Lactated Ringer's 1,000 ml @ 30 mls/hr Q24H PRN IV SEE LABEL COMMENTS; Start at 06:15; Stop 12/31/16 at 06:14; Status DC Sodium Chloride 500 ml @ 30 mls/hr [id number] PRN IV SEE LABEL COMMENTS; Start at 06:15; Stop 12/31/16 at 06:14; Status DC Povidone Iodine (Betadine 5% Antisepsis Kit) 1 applic SENIOR EXAMINER PRN EACH NARE SEE LABEL COMMENTS; Start 12/28/16 at 06:15; Stop 12/31/16 at 06:14; Status DC Chlorhexidine Gluconate (Chlorhexidine 2% Cloth) 3 pack SENIOR EXAMINER PRN TOPICAL SEE LABEL COMMENTS; Start 12/28/16 at 06:15; Stop 12/31/16 at 06:14; Status DC Insulin Human Regular (NovoLIN R INJ) See Protocol Table ... SENIOR EXAMINER PRN SQ SEE PROTOCOL TABLE; Start 12/28/16 at 06:15; Stop 12/31/16 at 06:14; Status DC Dextrose 1,000 ml @ 84 mls/hr [id number] IV Last administered on 01/01/17 22:03 ; Start 12/28/16 at 09:00; Stop 01/02/17 at 12:34; Status DC Calcium Carbonate (Tums Chew) 500 mg Q6H PRN CHEW DYSPEPSIA OR HEARTBURN; Start 12/28/16 at 14:00 Pantoprazole Sodium (Protonix) 20 mg DAILY PO Last administered on 01/03/17 09 :27; Start 12/29/16 at 09:00 Famotidine (Pepcid Inj) 20 mg ONCE ONCE IV PUSH Last administered on 14:27; Start 12/28/16 at 14:20; Stop 12/28/16 at 14:21; Status DC Lidocaine HCl (Xylocaine 1% Inj) 20 ml STK-MED ONCE .ROUTE Last administered on 12/28/16 14:49; Start 12/28/16 at 14:49; Stop 12/28/16 at 14:50; Status DC Sodium Chloride (Sodium Chloride 0.9% Inj) 40 ml STK-MED ONCE .ROUTE ; Start at 15:54; Stop 12/28/16 at 15:55; Status DC Lidocaine HCl (Xylocaine 2% Inj) 50 ml STK-MED ONCE .ROUTE ; Start 12/28/16 at 15:55; Stop 12/28/16 at 15:56; Status DC Lidocaine HCl (Xylocaine 2% Viscous) 15 ml STK-MED ONCE .ROUTE ; Start 12/28/16 at 15:55; Stop 12/28/16 at 15:56; Status DC Lidocaine HCl (Xylocaine-Mpf 4% Inj) 5 ml STK-MED ONCE .ROUTE ; Start 12/28/16 at 15:55; Stop 12/28/16 at 15:56; Status DC Epinephrine HCl (Adrenalin (1:1000) Inj) 2 mg STK-MED ONCE .ROUTE ; Start at 15:55; Stop 12/28/16 at 15:56; Status DC Fentanyl Citrate (fentaNYL INJ) 250 mcg STK-MED ONCE .ROUTE Last administered on 12/28/16 16:38; Start 12/28/16 at 16:38; Stop 12/28/16 at 16:39; Status DC Midazolam HCl (Versed Inj) 4 mg STK-MED ONCE .ROUTE Last administered on 16:38; Start 12/28/16 at 16:38; Stop 12/28/16 at 16:39; Status DC Sugammadex Sodium ([place] Inj) 400 mg STK-MED ONCE IV PUSH ; Start 12/28/16 at 17:30; Stop 12/28/16 at 17:31; Status DC Albuterol Sulfate (Albuterol Neb) 2.5 mg UNSCH X1 PRN NEB SHORTNESS OF BREATH; Start 12/28/16 at 18:15; Stop 12/29/16 at 18:14; Status DC Albuterol Sulfate (*ALBUTEROL NEB PERIprocedure ONLY) 2.5 mg STK-MED ONCE NEB Last administered on 12/28/16 18:20; Start 12/28/16 at 18:20; Stop 12/28/16 at 18:21; Status DC Fentanyl Citrate (fentaNYL INJ) 100 mcg STK-MED ONCE .ROUTE ; Start 12/28/16 at 18:27; Stop 12/28/16 at 18:28; Status DC Miscellaneous Information ALL NURSING DEPARTME... UNSCH PRN .XX SEE LABEL COMMENTS; Start 12/28/16 at 18:45; Stop 12/29/16 at 18:44; Status DC Lorazepam (Ativan Inj) 2 mg STK-MED ONCE .ROUTE ; Start 12/28/16 at 18:35; Stop 12/28/16 at 18:36; Status DC Cefepime HCl 2000 mg/Sodium Chloride 100 ml @ 200 mls/hr Q12H IV Last administered on 12/29/16 09:08; Start 12/28/16 at 21:00; Stop 12/29/16 at 22:34 ; Status DC Fluconazole/ Sodium Chloride 200 ml @ 100 mls/hr Q24H IV Last administered on 01/02/17 22:08; Start 12/28/16 at 22:00 Azithromycin 500 mg/Sodium Chloride 250 ml @ 250 mls/hr Q24H IV Last administered on 01/02/17 20:50; Start 12/28/16 at 20:00 Fentanyl Citrate (fentaNYL INJ) 100 mcg STK-MED ONCE .ROUTE ; Start 12/28/16 at 19:47; Stop 12/28/16 at 19:48; Status DC Vancomycin HCl 2000 mg/Sodium Chloride 520 ml @ 260 mls/hr Q12H IV Last administered on 12/30/16 16:14; Start 12/29/16 at 14:00; Stop 12/30/16 at 20:00 ; Status DC Miscellaneous Information SPECIFIC LAB TO BE DRAWN:VANCOMYCIN TROUGH DATE TO... ONCE ONCE .XX Last administered on 12/30/16 02:00; Start 12/30/16 at 01:45; Stop 12/30/16 at 01:46; Status DC Methylprednisolone Sodium Succinate (SoluMEDROL INJ) 40 mg ONCE ONCE IV PUSH Last administered on 12/29/16 22:08; Start 12/29/16 at 21:15; Stop 12/29/16 at 21:16; Status DC Methylprednisolone Sodium Succinate (SoluMEDROL INJ) 125 mg NOW ONCE IV ; Start 12/29/16 at 21:30; Stop 12/29/16 at 21:30; Status DC Allopurinol (Zyloprim) 200 mg BID PO Last administered on 01/03/17 09:27; Start 12/29/16 at 22:00 Cefepime HCl 2000 mg/Sodium Chloride 100 ml @ 200 mls/hr Q12H IV Last administered on 01/02/17 23:28; Start 12/29/16 at 23:00 Sodium Chloride (NS Flush) 5 ml DAILY IV FLUSH ; Start 12/30/16 at 09:00 Heparin Sodium (Porcine) (Heparin Central Flush) 500 units DAILY IV FLUSH ; Start 12/30/16 at 09:00 Sodium Chloride (NS Flush) 5 ml UNSCH PRN IV FLUSH SEE PROTOCOL TABLE; Start at 06:30 Heparin Sodium (Porcine) (Heparin Central Flush) 500 units UNSCH PRN IV FLUSH SEE PROTOCOL TABLE Last administered on 12/31/16 15:45; Start 12/30/16 at 06:30 Acetaminophen (Tylenol) 650 mg ONCE ONCE PO Last administered on 12/30/16 10: 38; Start 12/30/16 at 08:30; Stop 12/30/16 at 08:31; Status DC Diphenhydramine HCl (Benadryl) 25 mg ONCE ONCE PO Last administered on 10:37; Start 12/30/16 at 08:30; Stop 12/30/16 at 08:31; Status DC Methylprednisolone Sodium Succinate (SoluMEDROL INJ) 40 mg ONCE ONCE IV PUSH Last administered on 12/30/16 10:37; Start 12/30/16 at 10:00; Stop 12/30/16 at 10:04; Status DC Cefazolin Sodium/ Dextrose 50 ml @ 100 mls/hr SENIOR EXAMINER IV ; Start 12/30/16 at 10:30; Stop 01/03/17 at 10:29 Methylprednisolone Sodium Succinate (SoluMEDROL INJ) 40 mg ONCE IM ; Start 12/31 at 07:00; Status UNV Granisetron HCl 1 mg/Dexamethasone Sodium Phosphate 20 mg/Sodium Chloride 56 ml @ 336 mls/hr Q24H IV Last administered on 01/03/17 01:28; Start 12/31/16 at 17:30; Stop 01/06/17 at 17:39 Midazolam HCl (Versed Inj) 4 mg STK-MED ONCE .ROUTE Last administered on 14:40; Start 12/31/16 at 14:40; Stop 12/31/16 at 14:41; Status DC Fentanyl Citrate (fentaNYL INJ) 250 mcg STK-MED ONCE .ROUTE Last administered on 12/31/16 14:40; Start 12/31/16 at 14:40; Stop 12/31/16 at 14:41; Status DC Cytarabine 200 mg/ Sodium Chloride 500 ml @ 20.833 mls/ hr Q24H IV Last administered on 01/03/17 02:38; Start 12/31/16 at 18:30; Stop 01/07/17 at 18:29 Daunorubicin HCl 180 mg/Sodium Chloride 136 ml @ 272 mls/hr Q24H IV Last administered on 01/03/17 01:51; Start 12/31/16 at 18:00; Stop 01/02/17 at 18:29 ; Status DC Lidocaine/ Epinephrine (Xylocaine-Epi Mpf 2%-1:200,000 Inj) 20 ml STK-MED ONCE .ROUTE Last administered on 12/31/16 15:19; Start 12/31/16 at 15:08; Stop at 15:09; Status DC Heparin Sodium (Porcine) (Heparin Central Flush) 500 units UNSCH IV FLUSH ; Start 12/31/16 at 15:45 Sodium Chloride (NS Flush) 5 ml UNSCH PRN IVF SEE PROTOCOL; Start 12/31/16 at 15:45 Heparin Sodium (Porcine) (Heparin Central Flush) 250 units UNSCH PRN IV FLUSH SEE PROTOCOL; Start 12/31/16 at 15:45 Methylprednisolone Sodium Succinate (SoluMEDROL INJ) 40 mg ONCE ONCE IV Last administered on 12/31/16 21:09; Start 12/31/16 at 17:00; Stop 12/31/16 at 17:01 ; Status DC Sodium Chloride 1,000 ml @ 42 mls/hr [id number] IV Last administered on 01:25; Start 01/02/17 at 12:45 A/P Problem List: (1) SIRS (systemic inflammatory response syndrome) ICD Code: R65.10 - Systemic inflammatory response syndrome (SIRS) of non- infectious origin without acute organ dysfunction Status: Acute (2) GABRIELA (acute kidney injury) ICD Code: N17.9 - Acute kidney failure, unspecified Status: Acute (3) Thrombocytopenia ICD Code: D69.6 - Thrombocytopenia, unspecified Status: Acute (4) Lymphocytosis ICD Code: D72.820 - Lymphocytosis (symptomatic) Status: Acute (5) Anemia ICD Code: D64.9 - Anemia, unspecified Status: Acute Assessment and Plan Neutropenic fever of likely underlying pneumonia due to underlying hypoxia and CT scan findings - Blood culture no growth to date, CSF cultures no growth to date, , continuing broad-spectrum antibiotics with vancomycin and cefepime, additionally on azithromycin and fluconazole per infectious disease. Fevers have not recurred for the last 72 hours. bronchioloalveolar lavage and Cultures currently negative acute respiratory failure with hypoxia likely due to underlying pneumonia -improving on antibiotics; continue oxygen support and wean as tolerated. Acute myeloid leukemia - currently waiting for cytogenetics, status post post [id number] placement , status post MUGA scan -started induction chemotherapy. Continue chemotherapy per oncologist. Pancytopenia - Hematology proceeding with induction therapy, secondary to #3. GABRIELA: Resolved DVT prophylaxis pharmaceutical anticoagulation contraindicated due to pancytopenia. Bia Small MD Jan 03, 2017 10:30
[2017-01-03] MEDS: CEFEPIME INJ 2,000 MG in SODIUM CHLORIDE 0.9% INJ 100 ML IV SCH ×2 (12:08→23:55)
[2017-01-03] MEDS: AZITHROMYCIN INJ 500 MG in SODIUM CHLOR 0.9% 250 ML INJ 250 ML IV SCH (21:17)
[2017-01-04] VITALS (12 sets, daily range): BP systolic 108–124; BP diastolic 51–69; PULSE 70–89; RESP 16–20; TEMP 96.2–98.3; O2SAT 96–99
[2017-01-04] MEDS: FLUCONAZOLE 400 MG PREMIX BAG 200 ML IV SCH ×2 (00:35→21:49)
[2017-01-04] MEDS: GRANISETRON INJ 1 MG, DEXAMETHASONE INJ 20 MG in SODIUM CHLORIDE 0.9% INJ 50 ML IV SCH (02:44)
[2017-01-04] MEDS: SODIUM CHLORID 0.9% IV SCH (03:25)
[2017-01-04] MEDS: CYTARABINE IV SCH (03:25)
[2017-01-04] MEDS: ONDANSETRON HCL 4 MG/2 ML VIAL IVP PRN ×3 (05:20→21:50)
[2017-01-04 06:05] LABS: HEMATOCRIT 23.2 % (39.0-51.0); MEAN CELL VOLUME 95.2 FL (80.0-100.0); MEAN CORPUSCULAR HEMOGLOBIN 33.4 PG (27.0-34.0); MEAN CORPUSCULAR HGB CONC 35.1 % (32.0-36.0); PLATELET COUNT 47 TH/MM3 (150-450); RED BLOOD COUNT 2.43 MIL/MM3 (4.50-5.90); RED CELL DISTRIBUTION WIDTH 17.5 % (11.6-17.2); WHITE BLOOD COUNT 0.5 TH/MM3 (4.0-11.0)
[2017-01-04 06:12] LABS: HEMO FLAGS AUTO DIFF
[2017-01-04 06:39] LABS: ANION GAP 6 MEQ/L (5-15); AST (GOT) 13 U/L (15-37); BICARBONATE 27.3 MEQ/L (21.0-32.0); BLOOD UREA NITROGEN 23 MG/DL (7-18); CHLORIDE 102 MEQ/L (98-107); GLOMERULAR FILTRATION RATE 148 ML/MIN (>89); POTASSIUM 4.6 MEQ/L (3.5-5.1); SODIUM (NA) 135 MEQ/L (136-145); URIC ACID 2.8 MG/DL (2.6-7.2)
[2017-01-04 06:40] LABS: ALT (GPT) 76 U/L (12-78)
[2017-01-04 06:43] LABS: ALKALINE PHOSPHATASE 38 U/L (45-117); TOTAL BILIRUBIN ADULT 0.7 MG/DL (0.2-1.0)
[2017-01-04] MEDS: DOCUSATE SODIUM 50 MG/SENNA 8.6 MG TAB PO SCH ×2 (09:00→21:49)
[2017-01-04] MEDS: SODIUM CHLORIDE 0.9% FLUSH 10 ML FLUSH IV FLUSH SCH ×2 (09:00→21:49)
[2017-01-04] MEDS: Hickman Catheter Daily NS Lock Flush IV FLUSH SCH (09:00)
[2017-01-04] MEDS: PANTOPRAZOLE SOD 20 MG DELAYED RELEASE TAB PO SCH (09:07)
[2017-01-04] MEDS: ALLOPURINOL 100 MG TAB PO SCH ×2 (09:08→21:48)
[2017-01-04] MEDS: MUPIROCIN 2% OINT 22 GM TUBE TOPICAL SCH ×3 (09:08→17:37)
[2017-01-04 09:13] LABS: BANDS 4 % (0-6); POLYS (SEG NEUTROPHILS) 18 % (16-70); WBC DIFF SAMPLE 100
[2017-01-04 09:14] LABS: NEUTROPHIL # MANUAL DIFF 0.1 TH/MM3 (1.8-7.7); PLATELET ESTIMATE SMEAR LOW (NORMAL); PLATELET MORPHOLOGY NORMAL (NORMAL); SCAN/DIFF FINAL DIFF MANUAL
--- NOTE | 2017-01-04 10:12 | HHI.PR ---
Subjective Remarks Follow-up for chemotherapy Patient of complaints, but his nurse asked for anti-emetic since it has Zofran wasn't working. Patient stated that it worse but is not last long enough. I asked him if Phenergan helped him in the past he stated yes. Otherwise he has no other complaints. Deny any shortness of breathing, chest pain, palpitation, fevers or chills. he remains afebrile. Objective Vitals Vital Signs Date Time Temp Pulse Resp B/P (MAP) Pulse Ox O2 Delivery O2 Flow Rate FiO2 01/04/17 08:30 Room Air 01/04/17 08:00 96.8 82 20 116/55 (75) 96 01/04/17 06:00 97 Nasal Cannula 3.00 01/04/17 04:00 70 01/04/17 04:00 96.3 80 16 123/59 (80) 98 01/04/17 00:00 76 01/04/17 00:00 96.8 86 17 124/69 (87) 97 01/03/17 22:00 96 Nasal Cannula 3.00 01/03/17 20:00 92 Room Air 01/03/17 20:00 93 01/03/17 20:00 97.7 111 20 116/56 (76) 92 01/03/17 17:36 97 01/03/17 15:10 97.9 97 19 121/60 (80) 95 01/03/17 11:15 96.2 79 19 136/65 (88) 95 I/O 01/03/17 01/03/17 01/03/17 01/04/17 01/04/17 01/04/17 07:00 15:00 23:00 07:00 15:00 23:00 Intake Total 1185.2 ml 480 ml 502.4 ml 920 ml Output Total 2350 ml 2200 ml 400 ml 800 ml Balance -1164.8 ml -1720 ml 102.4 ml 120 ml Intake Oral 480 ml 480 ml 420 ml IV Total 705.2 ml 502.4 ml 500 ml Output Urine Total 2350 ml 2200 ml 400 ml 800 ml Result Diagram: 01/04/17 0515 01/04/1715 Objective Remarks GENERAL: In no acute distress but does appear weaker today. SKIN: Warm and dry. Port in place. No erythema or discharge noted around the port site. CARDIOVASCULAR: Regular rate and rhythm without murmurs, gallops, or rubs. RESPIRATORY: Breath sounds equal bilaterally. No accessory muscle use. GASTROINTESTINAL: Abdomen soft, non-tender, nondistended. Procedures 12/31 Moycih-w-Rrvz placement Medications and IVs Current Medications Acetaminophen (Tylenol) 650 mg ONCE ONCE PO Last administered on 12/25/16 20: 28; Start 12/25/16 at 19:45; Stop 12/25/16 at 19:46; Status DC Sodium Chloride 1,000 ml @ 1,000 mls/hr Q1H ONCE IV Last administered on 20:27; Start 12/25/16 at 19:41; Stop 12/25/16 at 20:40; Status DC Sodium Chloride 1,000 ml @ 1,000 mls/hr Q1H ONCE IV Last administered on 20:41; Start 12/25/16 at 19:41; Stop 12/25/16 at 20:40; Status DC Sodium Chloride 1,000 ml @ 1,000 mls/hr Q1H ONCE IV Last administered on 21:09; Start 12/25/16 at 19:41; Stop 12/25/16 at 20:40; Status DC Sodium Chloride 900 ml @ 1,000 mls/hr Q54M ONCE IV Last administered on 21:46; Start 12/25/16 at 19:41; Stop 12/25/16 at 20:34; Status DC Prochlorperazine Edisylate (Compazine Inj) 10 mg ONCE ONCE IV PUSH Last administered on 12/25/16 20:28; Start 12/25/16 at 19:45; Stop 12/25/16 at 19:46 ; Status DC Diphenhydramine HCl (Benadryl Inj) 25 mg ONCE ONCE IV PUSH Last administered on 12/25/16 20:27; Start 12/25/16 at 19:45; Stop 12/25/16 at 19:46; Status DC Cefepime HCl 2000 mg/Sodium Chloride 100 ml @ 200 mls/hr ONCE STAT IV Last administered on 12/25/16 21:46; Start 12/25/16 at 21:13; Stop 12/25/16 at 21:42 ; Status DC Pharmacy Profile Note 0 ml @ 0 mls/hr UNSCH OTHER ; Start 12/25/16 at 23:00; Stop 12/30/16 at 20:00; Status DC Cefepime HCl 1000 mg/Sodium Chloride 100 ml @ 200 mls/hr Q12H IV Last administered on 12/28/16 08:18; Start 12/26/16 at 09:00; Stop 12/28/16 at 19:05 ; Status DC Sodium Chloride 1,000 ml @ 100 mls/hr Q10H IV Last administered on 12/27/16 17:17; Start 12/25/16 at 23:00; Stop 12/28/16 at 09:00; Status DC Sodium Chloride (NS Flush) 2 ml UNSCH PRN IV FLUSH FLUSH AFTER USING IV ACCESS Last administered on 12/30/16 04:59; Start 12/25/16 at 23:00 Sodium Chloride (NS Flush) 2 ml BID IV FLUSH Last administered on 01/04/17 09: 00; Start 12/26/16 at 09:00 Ondansetron HCl (Zofran Inj) 4 mg Q6H PRN IVP NAUSEA OR VOMITING Last administered on 01/04/17 05:20; Start 12/25/16 at 23:00 Acetaminophen (Tylenol) 650 mg Q6H PRN PO FEVER>100.4 Last administered on 12/29 22:30; Start 12/25/16 at 23:00 Acetaminophen/ Hydrocodone Bitart ([place] 5-325 Mg) 1 tab Q4H PRN PO PAIN SCALE 3 TO 5 Last administered on 12/27/16 12:05; Start 12/25/16 at 23:00; Stop 12/27/16 at 13:56; Status DC Morphine Sulfate (Morphine Inj) 2 mg Q3H PRN IV Pain 6-10 Last administered on 01/02/17 22:16; Start 12/25/16 at 23:00 Senna/Docusate Sodium (Rika-Colace) 1 tab BID PO Last administered on 21:17; Start 12/26/16 at 09:00 Magnesium Hydroxide (Milk Of Magnesia Liq) 30 ml Q12H PRN PO MILD - MODERATE CONSTIPATION; Start 12/25/16 at 23:00 Sennosides (Senokot) 17.2 mg Q12H PRN PO MODERATE - SEVERE CONSTIPATION; Start 12/25/16 at 23:00 Bisacodyl (Dulcolax Supp) 10 mg DAILY PRN RECTAL SEVERE CONSITIPATION; Start at 23:00 Lactulose (Lactulose Liq) 30 ml DAILY PRN PO SEVERE CONSITIPATION; Start at 23:00 Vancomycin HCl 2500 mg/Sodium Chloride 525 ml @ 250 mls/hr Q12H IV Last administered on 12/26/16 00:27; Start 12/26/16 at 01:00; Stop 12/26/16 at 04:00 ; Status DC Guaifenesin/ Dextromethorphan (Robitussin Dm 200-20 Mg/10 ml Liq) 10 ml Q4H PRN PO cough Last administered on 12/26/16 18:19; Start 12/26/16 at 01:45; Stop 12/26/16 at 19:43; Status DC Benzonatate (Tessalon) 100 mg Q4H PRN PO COUGH Last administered on 12/26/16 15:12; Start 12/26/16 at 05:15 Vancomycin HCl 2000 mg/Sodium Chloride 520 ml @ 260 mls/hr Q12H IV Last administered on 12/27/16 17:16; Start 12/26/16 at 13:00; Stop 12/27/16 at 18:13 ; Status DC Miscellaneous Information SPECIFIC LAB TO BE JASKARAN... ONCE ONCE .XX Last administered on 12/27/16 17:05; Start 12/27/16 at 12:45; Stop 12/27/16 at 12:46 ; Status DC Sodium Bicarbonate 50 ml @ As Directed STK-MED ONCE .ROUTE Last administered on 12/26/16 16:54; Start 12/26/16 at 16:54; Stop 12/26/16 at 16:55; Status DC Iohexol (Omnipaque 350 Inj) 71 ml STK-MED ONCE IV Last administered on 17:47; Start 12/26/16 at 17:47; Stop 12/26/16 at 17:48; Status DC Albuterol/ Ipratropium (Duoneb Neb) 1 ampule Q6HR WHILE AWAKE NEB NEB Last administered on 12/30/16 09:15; Start 12/26/16 at 20:00; Stop 12/30/16 at 20:00 ; Status DC Guaifenesin/ Codeine Phosphate (Robitussin Ac 200-20 Mg/10 ml Liq) 10 ml Q4H PRN PO codine; Start 12/26/16 at 19:45; Stop 12/29/16 at 11:01; Status DC Promethazine HCl/ Codeine (Phenergan-Codeine Liq) 5 ml Q4H PRN PO COUGH Last administered on 12/31/16 17:09; Start 12/26/16 at 20:00 Sodium Chloride 250 ml @ 15 mls/hr ONCE ONCE IV Last administered on 23:23; Start 12/26/16 at 23:15; Stop 12/27/16 at 15:54; Status DC Acetaminophen (Tylenol) 650 mg Q4H PRN PO SEE LABEL COMMENTS; Start 12/26/16 at 23:15; Stop 12/27/16 at 03:16; Status DC Diphenhydramine HCl (Benadryl) 25 mg Q4H PRN PO SEE LABEL COMMENTS; Start 12/26 at 23:15; Stop 12/27/16 at 03:16; Status DC Calcium Gluconate 1 gm/Dextrose 110 ml @ 110 mls/hr ONCE ONCE IV Last administered on 12/26/16 23:56; Start 12/26/16 at 23:30; Stop 12/27/16 at 00:29 ; Status DC Diphenhydramine HCl (Benadryl) 25 mg Q4H PRN PO SEE LABEL COMMENTS Last administered on 12/28/16 00:11; Start 12/27/16 at 04:15 Acetaminophen (Tylenol) 650 mg Q4H PRN PO SEE LABEL COMMENTS Last administered on 12/28/16 00:11; Start 12/27/16 at 04:15 Mupirocin (Bactroban 2% Oint) 1 applic TID TOPICAL Last administered on 09:08; Start 12/27/16 at 14:15 Dexamethasone (Decadron) 4 mg Q12HR PO ; Start 12/27/16 at 21:00; Stop 12/27/16 at 21:00; Status DC Dexamethasone (Decadron) 4 mg ONCE ONCE PO Last administered on 12/27/16 14: 30; Start 12/27/16 at 14:00; Stop 12/27/16 at 14:01; Status DC Oxycodone HCl (Roxicodone) 5 mg Q6H PRN PO PAIN 1-10 Last administered on 21:56; Start 12/27/16 at 14:00 Lisinopril (Prinivil) 10 mg DAILY PO ; Start 12/28/16 at 15:00; Stop 12/28/16 at 15:00; Status DC Clonidine (Catapres) 0.2 mg Q6H PRN PO SBP > 160; Start 12/27/16 at 14:15; Stop 12/27/16 at 14:15; Status DC Diatrizoate Meglum/ Diatrizoate Sod ( Gastroview Liq) 18 ml ONCE ONCE PO Last administered on 12/27/16 17:16; Start 12/27/16 at 16:45; Stop 12/27/16 at 16:46; Status DC Albuterol Sulfate (Albuterol Concentrated Neb) 2.5 mg FIELD WORKER NEB ; Start 12/27 at 16:45; Stop 12/31/16 at 16:44; Status DC Lidocaine HCl (Lidocaine Pf 4% Neb) 3 ml FIELD WORKER NEB ; Start 12/27/16 at 16:45 ; Stop 12/31/16 at 16:44; Status DC Vancomycin HCl 2000 mg/Sodium Chloride 520 ml @ 260 mls/hr Q12H IV Last administered on 12/29/16 02:15; Start 12/28/16 at 05:00; Stop 12/29/16 at 03:00 ; Status DC Miscellaneous Information SPECIFIC LAB TO BE DRAWN:VANCOMY... ONCE ONCE .XX ; Start 12/29/16 at 04:45; Stop 12/29/16 at 04:46; Status DC Sodium Chloride 250 ml @ 15 mls/hr ONCE ONCE IV ; Start 12/27/16 at 18:30; Stop 12/27/16 at 18:38; Status DC Sodium Chloride 250 ml @ 15 mls/hr ONCE ONCE IV ; Start 12/27/16 at 18:45; Stop 12/28/16 at 11:24; Status DC Gadodiamide (Omniscan Pf Inj) 30 ml STK-MED ONCE IVCONTRAST Last administered on 12/27/16 22:10; Start 12/27/16 at 22:10; Stop 12/27/16 at 22:11; Status DC Iohexol (Omnipaque 350 Inj) 95 ml STK-MED ONCE IVCONTRAST Last administered on 12/27/16 23:00; Start 12/27/16 at 23:00; Stop 12/27/16 at 23:03; Status DC Lactated Ringer's 1,000 ml @ 30 mls/hr Q24H PRN IV SEE LABEL COMMENTS; Start at 06:15; Stop 12/31/16 at 06:14; Status DC Sodium Chloride 500 ml @ 30 mls/hr [id number] PRN IV SEE LABEL COMMENTS; Start at 06:15; Stop 12/31/16 at 06:14; Status DC Povidone Iodine (Betadine 5% Antisepsis Kit) 1 applic FIELD WORKER PRN EACH NARE SEE LABEL COMMENTS; Start 12/28/16 at 06:15; Stop 12/31/16 at 06:14; Status DC Chlorhexidine Gluconate (Chlorhexidine 2% Cloth) 3 pack FIELD WORKER PRN TOPICAL SEE LABEL COMMENTS; Start 12/28/16 at 06:15; Stop 12/31/16 at 06:14; Status DC Insulin Human Regular (NovoLIN R INJ) See Protocol Table ... FIELD WORKER PRN SQ SEE PROTOCOL TABLE; Start 12/28/16 at 06:15; Stop 12/31/16 at 06:14; Status DC Dextrose 1,000 ml @ 84 mls/hr [id number] IV Last administered on 01/01/17 22:03 ; Start 12/28/16 at 09:00; Stop 01/02/17 at 12:34; Status DC Calcium Carbonate (Tums Chew) 500 mg Q6H PRN CHEW DYSPEPSIA OR HEARTBURN; Start 12/28/16 at 14:00 Pantoprazole Sodium (Protonix) 20 mg DAILY PO Last administered on 01/04/17 09 :07; Start 12/29/16 at 09:00 Famotidine (Pepcid Inj) 20 mg ONCE ONCE IV PUSH Last administered on 14:27; Start 12/28/16 at 14:20; Stop 12/28/16 at 14:21; Status DC Lidocaine HCl (Xylocaine 1% Inj) 20 ml STK-MED ONCE .ROUTE Last administered on 12/28/16 14:49; Start 12/28/16 at 14:49; Stop 12/28/16 at 14:50; Status DC Sodium Chloride (Sodium Chloride 0.9% Inj) 40 ml STK-MED ONCE .ROUTE ; Start at 15:54; Stop 12/28/16 at 15:55; Status DC Lidocaine HCl (Xylocaine 2% Inj) 50 ml STK-MED ONCE .ROUTE ; Start 12/28/16 at 15:55; Stop 12/28/16 at 15:56; Status DC Lidocaine HCl (Xylocaine 2% Viscous) 15 ml STK-MED ONCE .ROUTE ; Start 12/28/16 at 15:55; Stop 12/28/16 at 15:56; Status DC Lidocaine HCl (Xylocaine-Mpf 4% Inj) 5 ml STK-MED ONCE .ROUTE ; Start 12/28/16 at 15:55; Stop 12/28/16 at 15:56; Status DC Epinephrine HCl (Adrenalin (1:1000) Inj) 2 mg STK-MED ONCE .ROUTE ; Start at 15:55; Stop 12/28/16 at 15:56; Status DC Fentanyl Citrate (fentaNYL INJ) 250 mcg STK-MED ONCE .ROUTE Last administered on 12/28/16 16:38; Start 12/28/16 at 16:38; Stop 12/28/16 at 16:39; Status DC Midazolam HCl (Versed Inj) 4 mg STK-MED ONCE .ROUTE Last administered on 16:38; Start 12/28/16 at 16:38; Stop 12/28/16 at 16:39; Status DC Sugammadex Sodium (Bridion Inj) 400 mg STK-MED ONCE IV PUSH ; Start 12/28/16 at 17:30; Stop 12/28/16 at 17:31; Status DC Albuterol Sulfate (Albuterol Neb) 2.5 mg UNSCH X1 PRN NEB SHORTNESS OF BREATH; Start 12/28/16 at 18:15; Stop 12/29/16 at 18:14; Status DC Albuterol Sulfate (*ALBUTEROL NEB PERIprocedure ONLY) 2.5 mg STK-MED ONCE NEB Last administered on 12/28/16 18:20; Start 12/28/16 at 18:20; Stop 12/28/16 at 18:21; Status DC Fentanyl Citrate (fentaNYL INJ) 100 mcg STK-MED ONCE .ROUTE ; Start 12/28/16 at 18:27; Stop 12/28/16 at 18:28; Status DC Miscellaneous Information ALL NURSING DEPARTME... UNSCH PRN .XX SEE LABEL COMMENTS; Start 12/28/16 at 18:45; Stop 12/29/16 at 18:44; Status DC Lorazepam (Ativan Inj) 2 mg STK-MED ONCE .ROUTE ; Start 12/28/16 at 18:35; Stop 12/28/16 at 18:36; Status DC Cefepime HCl 2000 mg/Sodium Chloride 100 ml @ 200 mls/hr Q12H IV Last administered on 12/29/16 09:08; Start 12/28/16 at 21:00; Stop 12/29/16 at 22:34 ; Status DC Fluconazole/ Sodium Chloride 200 ml @ 100 mls/hr Q24H IV Last administered on 01/04/17 00:35; Start 12/28/16 at 22:00 Azithromycin 500 mg/Sodium Chloride 250 ml @ 250 mls/hr Q24H IV Last administered on 01/03/17 21:17; Start 12/28/16 at 20:00 Fentanyl Citrate (fentaNYL INJ) 100 mcg STK-MED ONCE .ROUTE ; Start 12/28/16 at 19:47; Stop 12/28/16 at 19:48; Status DC Vancomycin HCl 2000 mg/Sodium Chloride 520 ml @ 260 mls/hr Q12H IV Last administered on 12/30/16 16:14; Start 12/29/16 at 14:00; Stop 12/30/16 at 20:00 ; Status DC Miscellaneous Information SPECIFIC LAB TO BE DRAWN:VANCOMYCIN TROUGH DATE TO... ONCE ONCE .XX Last administered on 12/30/16 02:00; Start 12/30/16 at 01:45; Stop 12/30/16 at 01:46; Status DC Methylprednisolone Sodium Succinate (SoluMEDROL INJ) 40 mg ONCE ONCE IV PUSH Last administered on 12/29/16 22:08; Start 12/29/16 at 21:15; Stop 12/29/16 at 21:16; Status DC Methylprednisolone Sodium Succinate (SoluMEDROL INJ) 125 mg NOW ONCE IV ; Start 12/29/16 at 21:30; Stop 12/29/16 at 21:30; Status DC Allopurinol (Zyloprim) 200 mg BID PO Last administered on 01/04/17 09:08; Start 12/29/16 at 22:00 Cefepime HCl 2000 mg/Sodium Chloride 100 ml @ 200 mls/hr Q12H IV Last administered on 01/03/17 23:55; Start 12/29/16 at 23:00 Sodium Chloride (NS Flush) 5 ml DAILY IV FLUSH ; Start 12/30/16 at 09:00 Heparin Sodium (Porcine) (Heparin Central Flush) 500 units DAILY IV FLUSH ; Start 12/30/16 at 09:00 Sodium Chloride (NS Flush) 5 ml UNSCH PRN IV FLUSH SEE PROTOCOL TABLE; Start at 06:30 Heparin Sodium (Porcine) (Heparin Central Flush) 500 units UNSCH PRN IV FLUSH SEE PROTOCOL TABLE Last administered on 12/31/16 15:45; Start 12/30/16 at 06:30 Acetaminophen (Tylenol) 650 mg ONCE ONCE PO Last administered on 12/30/16 10: 38; Start 12/30/16 at 08:30; Stop 12/30/16 at 08:31; Status DC Diphenhydramine HCl (Benadryl) 25 mg ONCE ONCE PO Last administered on 10:37; Start 12/30/16 at 08:30; Stop 12/30/16 at 08:31; Status DC Methylprednisolone Sodium Succinate (SoluMEDROL INJ) 40 mg ONCE ONCE IV PUSH Last administered on 12/30/16 10:37; Start 12/30/16 at 10:00; Stop 12/30/16 at 10:04; Status DC Cefazolin Sodium/ Dextrose 50 ml @ 100 mls/hr FIELD WORKER IV ; Start 12/30/16 at 10:30; Stop 01/03/17 at 10:29; Status DC Methylprednisolone Sodium Succinate (SoluMEDROL INJ) 40 mg ONCE IM ; Start 12/31 at 07:00; Status UNV Granisetron HCl 1 mg/Dexamethasone Sodium Phosphate 20 mg/Sodium Chloride 56 ml @ 336 mls/hr Q24H IV Last administered on 01/04/17 02:44; Start 12/31/16 at 17:30; Stop 01/06/17 at 17:39 Midazolam HCl (Versed Inj) 4 mg STK-MED ONCE .ROUTE Last administered on 14:40; Start 12/31/16 at 14:40; Stop 12/31/16 at 14:41; Status DC Fentanyl Citrate (fentaNYL INJ) 250 mcg STK-MED ONCE .ROUTE Last administered on 12/31/16 14:40; Start 12/31/16 at 14:40; Stop 12/31/16 at 14:41; Status DC Cytarabine 200 mg/ Sodium Chloride 500 ml @ 20.833 mls/ hr Q24H IV Last administered on 01/04/17 03:25; Start 12/31/16 at 18:30; Stop 01/07/17 at 18:29 Daunorubicin HCl 180 mg/Sodium Chloride 136 ml @ 272 mls/hr Q24H IV Last administered on 01/03/17 01:51; Start 12/31/16 at 18:00; Stop 01/02/17 at 18:29 ; Status DC Lidocaine/ Epinephrine (Xylocaine-Epi Mpf 2%-1:200,000 Inj) 20 ml STK-MED ONCE .ROUTE Last administered on 12/31/16 15:19; Start 12/31/16 at 15:08; Stop at 15:09; Status DC Heparin Sodium (Porcine) (Heparin Central Flush) 500 units UNSCH IV FLUSH ; Start 12/31/16 at 15:45 Sodium Chloride (NS Flush) 5 ml UNSCH PRN IVF SEE PROTOCOL; Start 12/31/16 at 15:45 Heparin Sodium (Porcine) (Heparin Central Flush) 250 units UNSCH PRN IV FLUSH SEE PROTOCOL; Start 12/31/16 at 15:45 Methylprednisolone Sodium Succinate (SoluMEDROL INJ) 40 mg ONCE ONCE IV Last administered on 12/31/16 21:09; Start 12/31/16 at 17:00; Stop 12/31/16 at 17:01 ; Status DC Sodium Chloride 1,000 ml @ 42 mls/hr [id number] IV Last administered on t 01:25; Start 01/02/17 at 12:45 A/P Problem List: (1) SIRS (systemic inflammatory response syndrome) ICD Code: R65.10 - Systemic inflammatory response syndrome (SIRS) of non- infectious origin without acute organ dysfunction Status: Acute (2) GABRIELA (acute kidney injury) ICD Code: N17.9 - Acute kidney failure, unspecified Status: Acute (3) Thrombocytopenia ICD Code: D69.6 - Thrombocytopenia, unspecified Status: Acute (4) Lymphocytosis ICD Code: D72.820 - Lymphocytosis (symptomatic) Status: Acute (5) Anemia ICD Code: D64.9 - Anemia, unspecified Status: Acute Assessment and Plan Neutropenic fever of likely underlying pneumonia due to underlying hypoxia and CT scan findings - Blood culture no growth to date, CSF cultures no growth to date, , continuing broad-spectrum antibiotics with vancomycin and cefepime, additionally on azithromycin and fluconazole per infectious disease. Fevers have not recurred for the last 72 hours. bronchioloalveolar lavage and Cultures currently negative acute respiratory failure with hypoxia likely due to underlying pneumonia -improving on antibiotics; continue oxygen support and wean as tolerated. 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 Continue chemotherapy per oncologist. Nausea -Most likely secondary to chemotherapy. Continue with Zofran when necessary. add phenergan. Continue to monitor clinically. Pancytopenia - Hematology proceeding with induction therapy, secondary to #3. GABRIELA: Resolved DVT prophylaxis pharmaceutical anticoagulation contraindicated due to pancytopenia. Bia Small MD Jan 04, 2017 10:11
[2017-01-04] MEDS: CEFEPIME INJ 2,000 MG in SODIUM CHLORIDE 0.9% INJ 100 ML IV SCH (11:09)
[2017-01-04] MEDS: SODIUM CHLOR 0.9% 1000 ML INJ 1,000 ML IV SCH (12:00)
[2017-01-04] MEDS: MORPHINE SULFATE 4 MG/ML INJ IV PRN (14:27)
--- NOTE | 2017-01-04 14:44 | HHI.IDPN ---
Subjective Subjective Remarks doing OK, tolerating chemo Neutropenic On RA, no cough or SOB no fever Antibiotics azitho cefepime fluconazol Allergies: Coded Allergies: No Known Allergies (Verified , 12/25/16) Objective . Vital Signs Date Time Temp Pulse Resp B/P (MAP) Pulse Ox O2 Delivery O2 Flow Rate FiO2 01/04/17 14:26 98.3 89 20 122/58 (79) 99 01/04/17 09:30 97 01/04/17 09:30 97 21 01/04/17 08:30 Room Air 01/04/17 08:00 96.8 82 20 116/55 (75) 96 01/04/17 07:59 86 01/04/17 06:00 97 Nasal Cannula 3.00 01/04/17 04:00 70 01/04/17 04:00 96.3 80 16 123/59 (80) 98 01/04/17 00:00 76 01/04/17 00:00 96.8 86 17 124/69 (87) 97 01/03/17 22:00 96 Nasal Cannula 3.00 01/03/17 20:00 92 Room Air 01/03/17 20:00 93 01/03/17 20:00 97.7 111 20 116/56 (76) 92 01/03/17 17:36 97 01/03/17 15:10 97.9 97 19 121/60 (80) 95 01/04/17 01/04/17 01/05/17 14:59 22:59 06:59 Intake Total 100 ml Balance 100 ml IV Total 100 ml . Laboratory Tests Test 01/03/17 05:30 01/04/17 05:15 White Blood Count 1.2 TH/MM3 0.5 TH/MM3 Red Blood Count 2.38 MIL/MM3 2.43 MIL/MM3 Hemoglobin 7.7 GM/DL 8.1 GM/DL Hematocrit 22.8 % 23.2 % Mean Corpuscular Volume 95.7 FL 95.2 FL Mean Corpuscular Hemoglobin 32.3 PG 33.4 PG Mean Corpuscular Hemoglobin Concent 33.7 % 35.1 % Red Cell Distribution Width 18.1 % 17.5 % Platelet Count 54 TH/MM3 47 TH/MM3 Mean Platelet Volume 7.2 FL 8.3 FL CBC Comment AUTO DIFF AUTO DIFF Differential Total Cells Counted 100 100 Neutrophils % (Manual) 21 % 18 % Lymphocytes % 26 % 43 % Monocytes % 47 % 35 % Neutrophils # (Manual) 0.3 TH/MM3 0.1 TH/MM3 Differential Comment FINAL DIFF MANUAL FINAL DIFF MANUAL Blastocytes 6 % Platelet Estimate LOW LOW Platelet Morphology Comment NORMAL NORMAL Band Neutrophils % 4 % Laboratory Tests Test 01/03/17 05:30 01/04/17 05:15 Blood Urea Nitrogen 17 MG/DL 23 MG/DL Creatinine 0.67 MG/DL 0.66 MG/DL Random Glucose 128 MG/DL 140 MG/DL Total Protein 6.7 GM/DL 6.8 GM/DL Albumin 2.8 GM/DL 2.9 GM/DL Calcium Level 7.7 MG/DL 7.8 MG/DL Phosphorus Level 4.1 MG/DL 4.1 MG/DL Magnesium Level 3.0 MG/DL 3.0 MG/DL Uric Acid 2.3 MG/DL 2.8 MG/DL Alkaline Phosphatase 34 U/L 38 U/L Aspartate Amino Transf (AST/SGOT) 18 U/L 13 U/L Alanine Aminotransferase (ALT/SGPT) 63 U/L 76 U/L Total Bilirubin 0.6 MG/DL 0.7 MG/DL Sodium Level 137 MEQ/L 135 MEQ/L Potassium Level 4.5 MEQ/L 4.6 MEQ/L Chloride Level 104 MEQ/L 102 MEQ/L Carbon Dioxide Level 27.9 MEQ/L 27.3 MEQ/L Anion Gap 5 MEQ/L 6 MEQ/L Estimat Glomerular Filtration Rate 146 ML/MIN 148 ML/MIN Imaging Last Impressions Chest X-Ray 01/03/17 0600 Signed Impressions: Service Date/Time: Tuesday, January 03, 2017 04:42 - CONCLUSION: Normal examination. Right IJ Pnzvli-j-Iorl catheter in excellent position. Lungs are clear. Enrique Ramos MD Port Line Insertion 12/31/16 0000 Signed Impressions: Service Date/Time: December 15:15 - CONCLUSION: Uncomplicated ultrasound and fluoroscopic guided implanted central venous port catheter placement as described in detail above. An 8 [employer] port was placed. Nilson Bonner MD [facility] 12/30/16 0000 Signed Impressions: Service Date/Time: Friday, December 30, 2016 13:16 - CONCLUSION: Negative exam. Calculated ejection fraction of 56%% with adequate wall motion throughout. Bean Dugan MD Bone Biopsy CT 12/28/16 0000 Signed Impressions: Service Date/Time: Wednesday, December 28, 2016 16:53 - CONCLUSION: 1. Uncomplicated CT guided bone marrow aspirate. 2. Uncomplicated CT guided bone marrow biopsy. Grant Jones MD Brain MRI 12/27/16 Signed Impressions: Service Date/Time: Tuesday, December 27, 2016 21:58 - CONCLUSION: Unremarkable study. Patricia Contreras MD Abdomen/Pelvis CT 12/27/16 0000 Signed Impressions: Service Date/Time: Tuesday, December 27, 2016 22:47 - CONCLUSION: 1. Basilar dependent airspace consolidation in both lungs most characteristic of pneumonia or aspiration. 2. Low attenuation lesion posterior spleen, possibly small infarct or hemangioma. No adenopathy within the abdomen and pelvis. Leander Fiore MD Lumbar Puncture Fluoroscopy 12/26/16 Signed Impressions: Service Date/Time: Monday, December 26, 2016 17:03 - CONCLUSION: Uncomplicated fluoroscopically guided lumbar puncture with pressures as above. Nilson Bonner MD Chest CT 12/26/16 Signed Impressions: Service Date/Time: Monday, December 26, 2016 17:45 - CONCLUSION: Bibasilar air space process characteristic of pneumonia. Patricia Contreras MD Head CT 12/25/161940 Signed Impressions: Service Date/Time: Sunday, December 25, 2016 19:50 - CONCLUSION: Negative noncontrast head CT. Audie Maria MD Physical Exam CONSTITUTIONAL/GENERAL: This is a morbidly obese patient, in no distress. OOB in chair TUBES/LINES/DRAINS: SKIN: No jaundice, rashes, or lesions. HEAD: Atraumatic. Normocephalic. EYES: Pupils equal and round and reactive. Extraocular motions intact. No scleral icterus. No injection or drainage. Fundi not examined. ENT: Hearing grossly normal. Nose without bleeding or purulent drainage. CARDIOVASCULAR: Regular rate and rhythm without murmurs, gallops, or rubs. No JVD. Peripheral pulses symmetric. Well perfused perifery RESPIRATORY/CHEST: Symmetric, unlabored respirations. Clear to auscultation. Breath sounds equal bilaterally. No wheezes, rales, or rhonchi. GASTROINTESTINAL: Abdomen soft, non-tender, nondistended. No hepato-splenomegaly , or palpable masses. No guarding. Bowel sounds present. MUSCULOSKELETAL: Extremities without clubbing, cyanosis, or edema. NEUROLOGICAL: Awake and alert. 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
[2017-01-04] MEDS: PROMETHAZINE HCL 25 MG TAB PO PRN ×2 (16:28→23:52)
[2017-01-04] MEDS: LEVOFLOXACIN 750 MG TAB PO SCH (17:36)
--- NOTE | 2017-01-04 21:52 | PD.ONC.PN ---
Subjective Subjective Remarks afebrile has breakthrough nausea oral intake is good breathing better no bleeding d.w rn Objective Data Date Time Temp Pulse Resp B/P (MAP) Pulse Ox O2 Delivery O2 Flow Rate FiO2 01/04/17 20:50 96.2 78 20 108/51 (70) 96 01/04/17 16:01 82 01/04/17 16:00 98.2 82 20 119/53 (75) 97 01/04/17 14:26 98.3 89 20 122/58 (79) 99 01/04/17 14:00 97.0 80 18 115/54 (74) 96 01/04/17 12:11 75 01/04/17 09:30 97 01/04/17 09:30 97 21 01/04/17 08:30 Room Air 01/04/17 08:00 96.8 82 20 116/55 (75) 96 01/04/17 07:59 86 01/04/17 06:00 97 Nasal Cannula 3.00 01/04/17 04:00 70 01/04/17 04:00 96.3 80 16 123/59 (80) 98 01/04/17 00:00 76 01/04/17 00:00 96.8 86 17 124/69 (87) 97 01/03/17 22:00 96 Nasal Cannula 3.00 01/04/17 01/04/17 01/04/17 07:00 15:00 23:00 Intake Total 920 ml 580 ml Output Total 800 ml Balance 120 ml 580 ml Result Diagram: 01/04/17 0515 01/04/17 0515 Laboratory Results Laboratory Tests Test 01/04/17 05:15 White Blood Count 0.5 TH/MM3 Red Blood Count 2.43 MIL/MM3 Hemoglobin 8.1 GM/DL Hematocrit 23.2 % Mean Corpuscular Volume 95.2 FL Mean Corpuscular Hemoglobin 33.4 PG Mean Corpuscular Hemoglobin Concent 35.1 % Red Cell Distribution Width 17.5 % Platelet Count 47 TH/MM3 Mean Platelet Volume 8.3 FL CBC Comment AUTO DIFF Differential Total Cells Counted 100 Neutrophils % (Manual) 18 % Band Neutrophils % 4 % Lymphocytes % 43 % Monocytes % 35 % Neutrophils # (Manual) 0.1 TH/MM3 Differential Comment FINAL DIFF MANUAL Platelet Estimate LOW Platelet Morphology Comment NORMAL Blood Urea Nitrogen 23 MG/DL Creatinine 0.66 MG/DL Random Glucose 140 MG/DL Total Protein 6.8 GM/DL Albumin 2.9 GM/DL Calcium Level 7.8 MG/DL Phosphorus Level 4.1 MG/DL Magnesium Level 3.0 MG/DL Uric Acid 2.8 MG/DL Alkaline Phosphatase 38 U/L Aspartate Amino Transf (AST/SGOT) 13 U/L Alanine Aminotransferase (ALT/SGPT) 76 U/L Total Bilirubin 0.7 MG/DL Sodium Level 135 MEQ/L Potassium Level 4.6 MEQ/L Chloride Level 102 MEQ/L Carbon Dioxide Level 27.3 MEQ/L Anion Gap 6 MEQ/L Estimat Glomerular Filtration Rate 148 ML/MIN Administered Medications Medications (Trade) Dose Ordered Sig/Emma Route PRN Reason Start Time Stop Time Status Last Admin Dose Admin Sodium Chloride (NS Flush) 2 ml UNSCH PRN IV FLUSH FLUSH AFTER USING IV ACCESS 12/25/16 23:00 12/30/16 04:59 Sodium Chloride (NS Flush) 2 ml BID IV FLUSH 12/26/16 09:00 01/04/17 21:49 Ondansetron HCl (Zofran Inj) 4 mg Q6H PRN IVP NAUSEA OR VOMITING 12/25/16 23:00 01/04/17 21:50 Acetaminophen (Tylenol) 650 mg Q6H PRN PO FEVER>100.4 12/25/16 23:00 12/29/16 22:30 Morphine Sulfate (Morphine Inj) 2 mg Q3H PRN IV Pain 6-10 12/25/16 23:00 01/04/17 14:27 Senna/Docusate Sodium (Rika-Colace) 1 tab BID PO 12/26/16 09:00 01/04/17 21:49 Benzonatate (Tessalon) 100 mg Q4H PRN PO COUGH 12/26/16 05:15 12/26/16 15:12 Promethazine HCl/ Codeine (Phenergan-Codeine Liq) 5 ml Q4H PRN PO COUGH 12/26/16 20:00 12/31/16 17:09 Diphenhydramine HCl (Benadryl) 25 mg Q4H PRN PO SEE LABEL COMMENTS 12/27/16 04:15 12/28/16 00:11 Acetaminophen (Tylenol) 650 mg Q4H PRN PO SEE LABEL COMMENTS 12/27/16 04:15 12/28/16 00:11 Mupirocin (Bactroban 2% Oint) 1 applic TID TOPICAL 12/27/16 14:15 01/04/17 17:37 Oxycodone HCl (Roxicodone) 5 mg Q6H PRN PO PAIN 1-10 12/27/16 14:00 12/28/16 21:56 Pantoprazole Sodium (Protonix) 20 mg DAILY PO 12/29/16 09:00 01/04/17 09:07 Fluconazole/ Sodium Chloride 200 ml @ 100 mls/hr Q24H IV 12/28/16 22:00 01/04/17 21:49 Allopurinol (Zyloprim) 200 mg BID PO 12/29/16 22:00 01/04/17 21:48 Heparin Sodium (Porcine) (Heparin Central Flush) 500 units UNSCH PRN IV FLUSH SEE PROTOCOL TABLE 12/30/16 06:30 12/31/16 15:45 Granisetron HCl 1 mg/Dexamethasone Sodium Phosphate 20 mg/Sodium Chloride 56 ml @ 336 mls/hr Q24H IV 12/31/16 17:30 01/06/17 17:39 01/04/17 02:44 Cytarabine 200 mg/ Sodium Chloride 500 ml @ 20.833 mls/ hr Q24H IV 12/31/16 18:30 01/07/17 18:29 01/04/17 03:25 Sodium Chloride 1,000 ml @ 42 mls/hr [id number] IV 01/02/17 12:45 01/03/17 01:25 Promethazine HCl (Phenergan) 25 mg Q4H PRN PO nausea or vomitting 01/04/17 10:15 01/04/17 16:28 Levofloxacin (Levaquin) 750 mg DAILY@1100 PO 01/04/17 16:00 01/04/17 17:36 Objective Remarks GENERAL: acutely ill, obese SKIN: Warm and dry. CARDIOVASCULAR: Regular rate and rhythm without murmurs. RESPIRATORY: Breath sounds equal bilaterally. No accessory muscle use. GASTROINTESTINAL: Abdomen soft, non-tender, nondistended. difficult exam due to obesity EXTREMITIES: No cyanosis, or edema. 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 - Acute myeloblastic leukemia, not having achieved remission Plan: -- Preliminary BMB showed 70% blasts in bone marrow -- Cytogenetics (FLT and KIT) pending -- MUGA scan shows normal ejection fraction with no wall motion abnormalities 12/31 Day 1: Daunorubicin and Cytarabine (2) Neutropenia ICD Codes: D70.9 - Neutropenia, unspecified Status: Acute Plan: -- ID following -- On Cefepime, cefazolin, Azithromycin and Fluconazole -- BC on 12/25 = no growth. -- Bronchoscopy on 12/28= no growth. -- BC on 12/29= no growth. Assessment 26 y/o male with no major past medical history who was brought in for headache, confusion and cough. Plan 1. 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 Febrile Neutropenia -- No fevers o/n - On Levaqin - Repeat blood cultures X 2 12/29- no growth - Blood cultures with no growth 12/25 2. Headache/Nausea - Symptoms resolved - Brain MRI negative 3 Acute Respiratory distress--significantly better - continues to improve - s/p broch--negative results thus far - Possibility of leukemic infiltrates--can be seen in AML M4 - Nebs prn 4. FEN - replace electrolytes - Calcium, Mag and Phosp daily - Replace Calcium today 5. Thrombocytopenia - no evidence of DIC - check daily coags and fibrinogen and CBC - Transfuse to keep platelets > 10 - Will need irradiated blood products 6. Anemia - transfuse to keep Hb > 7 - will need irradiated blood products 7. Tumor Lysis Prophylaxis - On Allopurinol 200mg PO BID - Check daily Phosp/Uric acid 8. Nausea - Zofran prn - add phenergan overnight events reviewed Problem Qualifiers (1) Neutropenia: Joey Santoyo MD Jan 04, 2017 21:52
[2017-01-04] MEDS ORDERED: CALCIUM CHLORIDE INJ 1 GM in DEXTROSE 5% IN WATER 100ML INJ 100 ML IV ONE ×2 (23:00)
[2017-01-05] VITALS (13 sets, daily range): BP systolic 93–122; BP diastolic 46–88; PULSE 69–91; RESP 16–22; TEMP 96.8–97.9; O2SAT 97–100
[2017-01-05] MEDS: MORPHINE SULFATE 4 MG/ML INJ IV PRN ×3 (01:32→21:47)
[2017-01-05] MEDS: GRANISETRON INJ 1 MG, DEXAMETHASONE INJ 20 MG in SODIUM CHLORIDE 0.9% INJ 50 ML IV SCH (02:59)
[2017-01-05] MEDS: SODIUM CHLORID 0.9% IV SCH (03:31)
[2017-01-05] MEDS: CYTARABINE IV SCH (03:31)
[2017-01-05 07:22] LABS: HEMATOCRIT 21.1 % (39.0-51.0); MEAN CELL VOLUME 94.6 FL (80.0-100.0); MEAN CORPUSCULAR HEMOGLOBIN 33.1 PG (27.0-34.0); PLATELET COUNT 33 TH/MM3 (150-450); RED BLOOD COUNT 2.23 MIL/MM3 (4.50-5.90); RED CELL DISTRIBUTION WIDTH 17.6 % (11.6-17.2); WHITE BLOOD COUNT 0.5 TH/MM3 (4.0-11.0)
[2017-01-05 07:38] LABS: ALT (GPT) 63 U/L (12-78); AST (GOT) 7 U/L (15-37); BICARBONATE 27.5 MEQ/L (21.0-32.0); BLOOD UREA NITROGEN 21 MG/DL (7-18); GLOMERULAR FILTRATION RATE 134 ML/MIN (>89); MAGNESIUM 2.7 MG/DL (1.5-2.5); URIC ACID 2.6 MG/DL (2.6-7.2)
[2017-01-05 07:57] LABS: ALKALINE PHOSPHATASE 30 U/L (45-117); ANION GAP 8 MEQ/L (5-15); CHLORIDE 101 MEQ/L (98-107); POTASSIUM 4.8 MEQ/L (3.5-5.1); SODIUM (NA) 136 MEQ/L (136-145); TOTAL BILIRUBIN ADULT 1.1 MG/DL (0.2-1.0)
[2017-01-05 08:01] LABS: HEMO FLAGS AUTO DIFF
[2017-01-05] MEDS: DOCUSATE SODIUM 50 MG/SENNA 8.6 MG TAB PO SCH ×2 (09:00→21:00)
[2017-01-05] MEDS: Hickman Catheter Daily NS Lock Flush IV FLUSH SCH (09:00)
[2017-01-05 09:29] LABS: NEUTROPHIL # MANUAL DIFF 0.1 TH/MM3 (1.8-7.7); PLATELET ESTIMATE SMEAR LOW (NORMAL); POLYS (SEG NEUTROPHILS) 14 % (16-70); WBC DIFF SAMPLE 50
[2017-01-05 09:30] LABS: PLATELET MORPHOLOGY NORMAL (NORMAL); SCAN/DIFF FINAL DIFF MANUAL
[2017-01-05] MEDS: ONDANSETRON HCL 4 MG/2 ML VIAL IVP PRN ×2 (09:36→15:10)
[2017-01-05] MEDS: MUPIROCIN 2% OINT 22 GM TUBE TOPICAL SCH ×3 (09:36→18:10)
[2017-01-05] MEDS: PANTOPRAZOLE SOD 20 MG DELAYED RELEASE TAB PO SCH (09:36)
[2017-01-05] MEDS: ALLOPURINOL 100 MG TAB PO SCH ×2 (09:36→21:47)
[2017-01-05] MEDS: SODIUM CHLORIDE 0.9% FLUSH 10 ML FLUSH IV FLUSH SCH ×2 (09:36→21:00)
[2017-01-05] MEDS: LEVOFLOXACIN 750 MG TAB PO SCH (10:54)
[2017-01-05] MEDS: DICYCLOMINE HCL 20 MG TAB PO SCH ×3 (10:54→18:09)
[2017-01-05] MEDS: SODIUM CHLOR 0.9% 1000 ML INJ 1,000 ML IV SCH (10:56)
--- NOTE | 2017-01-05 11:25 | HHI.PR ---
Subjective Remarks Follow-up for chemotherapy and feeling nauseated Patient stated that nausea has improved but now he has severe spasm of bowel. Patient has not any episodes of emesis. He also stated that he feels weak. Denies any diarrhea or shortness of breathing. No other complaints. Objective Vitals Vital Signs Date Time Temp Pulse Resp B/P (MAP) Pulse Ox O2 Delivery O2 Flow Rate FiO2 01/05/17 09:46 Nasal Cannula 3.00 01/05/17 09:30 96.8 84 20 93/50 (64) 99 104/72 (83) 01/05/17 04:11 97.9 79 18 108/54 (72) 98 01/05/17 04:00 71 01/05/17 00:04 96.8 87 20 122/88 (99) 97 01/05/17 00:00 82 01/04/17 22:00 97 Nasal Cannula 3.00 01/04/17 21:30 96 Room Air 01/04/17 20:50 96.2 78 20 108/51 (70) 96 01/04/17 20:00 87 01/04/17 16:01 82 01/04/17 16:00 98.2 82 20 119/53 (75) 97 01/04/17 14:26 98.3 89 20 122/58 (79) 99 01/04/17 14:00 97.0 80 18 115/54 (74) 96 01/04/17 12:11 75 I/O 01/04/17 01/04/17 01/04/17 01/05/17 01/05/17 01/05/17 07:00 15:00 23:00 07:00 15:00 23:00 Intake Total 920 ml 580 ml 502.64 ml 1125 ml Output Total 800 ml 700 ml 1000 ml 900 ml Balance 120 ml 580 ml -700 ml -497.36 ml 225 ml Intake Oral 420 ml 480 ml IV Total 500 ml 100 ml 502.64 ml 1125 ml Output Urine Total 800 ml 700 ml 1000 ml 900 ml # Voids 2 # Bowel Movements 1 1 Result Diagram: 01/05/1760401/05/17604 Objective Remarks GENERAL: In no acute distress but looks weak. SKIN: Warm and dry. Port in place. No erythema or discharge noted around the port site. CARDIOVASCULAR: Regular rate and rhythm without murmurs, gallops, or rubs. RESPIRATORY: Breath sounds equal bilaterally. No accessory muscle use. GASTROINTESTINAL: Abdomen soft, non-tender, nondistended. Procedures 12/31 [id number] placement Medications and IVs Current Medications Acetaminophen (Tylenol) 650 mg ONCE ONCE PO Last administered on 12/25/16 20: 28; Start 12/25/16 at 19:45; Stop 12/25/16 at 19:46; Status DC Sodium Chloride 1,000 ml @ 1,000 mls/hr Q1H ONCE IV Last administered on 20:27; Start 12/25/16 at 19:41; Stop 12/25/16 at 20:40; Status DC Sodium Chloride 1,000 ml @ 1,000 mls/hr Q1H ONCE IV Last administered on 20:41; Start 12/25/16 at 19:41; Stop 12/25/16 at 20:40; Status DC Sodium Chloride 1,000 ml @ 1,000 mls/hr Q1H ONCE IV Last administered on 21:09; Start 12/25/16 at 19:41; Stop 12/25/16 at 20:40; Status DC Sodium Chloride 900 ml @ 1,000 mls/hr Q54M ONCE IV Last administered on 21:46; Start 12/25/16 at 19:41; Stop 12/25/16 at 20:34; Status DC Prochlorperazine Edisylate (Compazine Inj) 10 mg ONCE ONCE IV PUSH Last administered on 12/25/16 20:28; Start 12/25/16 at 19:45; Stop 12/25/16 at 19:46 ; Status DC Diphenhydramine HCl (Benadryl Inj) 25 mg ONCE ONCE IV PUSH Last administered on 12/25/16 20:27; Start 12/25/16 at 19:45; Stop 12/25/16 at 19:46; Status DC Cefepime HCl 2000 mg/Sodium Chloride 100 ml @ 200 mls/hr ONCE STAT IV Last administered on 12/25/16 21:46; Start 12/25/16 at 21:13; Stop 12/25/16 at 21:42 ; Status DC Pharmacy Profile Note 0 ml @ 0 mls/hr UNSCH OTHER ; Start 12/25/16 at 23:00; Stop 12/30/16 at 20:00; Status DC Cefepime HCl 1000 mg/Sodium Chloride 100 ml @ 200 mls/hr Q12H IV Last administered on 12/28/16 08:18; Start 12/26/16 at 09:00; Stop 12/28/16 at 19:05 ; Status DC Sodium Chloride 1,000 ml @ 100 mls/hr Q10H IV Last administered on 12/27/16 17:17; Start 12/25/16 at 23:00; Stop 12/28/16 at 09:00; Status DC Sodium Chloride (NS Flush) 2 ml UNSCH PRN IV FLUSH FLUSH AFTER USING IV ACCESS Last administered on 12/30/16 04:59; Start 12/25/16 at 23:00 Sodium Chloride (NS Flush) 2 ml BID IV FLUSH Last administered on 01/05/17 09: 36; Start 12/26/16 at 09:00 Ondansetron HCl (Zofran Inj) 4 mg Q6H PRN IVP NAUSEA OR VOMITING Last administered on 01/05/17 09:36; Start 12/25/16 at 23:00 Acetaminophen (Tylenol) 650 mg Q6H PRN PO FEVER>100.4 Last administered on 12/29 22:30; Start 12/25/16 at 23:00 Acetaminophen/ Hydrocodone Bitart ([place] 5-325 Mg) 1 tab Q4H PRN PO PAIN SCALE 3 TO 5 Last administered on 12/27/16 12:05; Start 12/25/16 at 23:00; Stop 12/27/16 at 13:56; Status DC Morphine Sulfate (Morphine Inj) 2 mg Q3H PRN IV Pain 6-10 Last administered on 01/05/17 01:32; Start 12/25/16 at 23:00 Senna/Docusate Sodium (Rika-Colace) 1 tab BID PO Last administered on 21:49; Start 12/26/16 at 09:00 Magnesium Hydroxide (Milk Of Magnesia Liq) 30 ml Q12H PRN PO MILD - MODERATE CONSTIPATION; Start 12/25/16 at 23:00 Sennosides (Senokot) 17.2 mg Q12H PRN PO MODERATE - SEVERE CONSTIPATION; Start 12/25/16 at 23:00 Bisacodyl (Dulcolax Supp) 10 mg DAILY PRN RECTAL SEVERE CONSITIPATION; Start at 23:00 Lactulose (Lactulose Liq) 30 ml DAILY PRN PO SEVERE CONSITIPATION; Start at 23:00 Vancomycin HCl 2500 mg/Sodium Chloride 525 ml @ 250 mls/hr Q12H IV Last administered on 12/26/16 00:27; Start 12/26/16 at 01:00; Stop 12/26/16 at 04:00 ; Status DC Guaifenesin/ Dextromethorphan (Robitussin Dm 200-20 Mg/10 ml Liq) 10 ml Q4H PRN PO cough Last administered on 12/26/16 18:19; Start 12/26/16 at 01:45; Stop 12/26/16 at 19:43; Status DC Benzonatate (Tessalon) 100 mg Q4H PRN PO COUGH Last administered on 12/26/16 15:12; Start 12/26/16 at 05:15 Vancomycin HCl 2000 mg/Sodium Chloride 520 ml @ 260 mls/hr Q12H IV Last administered on 12/27/16 17:16; Start 12/26/16 at 13:00; Stop 12/27/16 at 18:13 ; Status DC Miscellaneous Information SPECIFIC LAB TO BE JASKARAN... ONCE ONCE .XX Last administered on 12/27/16 17:05; Start 12/27/16 at 12:45; Stop 12/27/16 at 12:46 ; Status DC Sodium Bicarbonate 50 ml @ As Directed STK-MED ONCE .ROUTE Last administered on 12/26/16 16:54; Start 12/26/16 at 16:54; Stop 12/26/16 at 16:55; Status DC Iohexol (Omnipaque 350 Inj) 71 ml STK-MED ONCE IV Last administered on 17:47; Start 12/26/16 at 17:47; Stop 12/26/16 at 17:48; Status DC Albuterol/ Ipratropium (Duoneb Neb) 1 ampule Q6HR WHILE AWAKE NEB NEB Last administered on 12/30/16 09:15; Start 12/26/16 at 20:00; Stop 12/30/16 at 20:00 ; Status DC Guaifenesin/ Codeine Phosphate (Robitussin Ac 200-20 Mg/10 ml Liq) 10 ml Q4H PRN PO codine; Start 12/26/16 at 19:45; Stop 12/29/16 at 11:01; Status DC Promethazine HCl/ Codeine (Phenergan-Codeine Liq) 5 ml Q4H PRN PO COUGH Last administered on 12/31/16 17:09; Start 12/26/16 at 20:00 Sodium Chloride 250 ml @ 15 mls/hr ONCE ONCE IV Last administered on 23:23; Start 12/26/16 at 23:15; Stop 12/27/16 at 15:54; Status DC Acetaminophen (Tylenol) 650 mg Q4H PRN PO SEE LABEL COMMENTS; Start 12/26/16 at 23:15; Stop 12/27/16 at 03:16; Status DC Diphenhydramine HCl (Benadryl) 25 mg Q4H PRN PO SEE LABEL COMMENTS; Start 12/26 at 23:15; Stop 12/27/16 at 03:16; Status DC Calcium Gluconate 1 gm/Dextrose 110 ml @ 110 mls/hr ONCE ONCE IV Last administered on 12/26/16 23:56; Start 12/26/16 at 23:30; Stop 12/27/16 at 00:29 ; Status DC Diphenhydramine HCl (Benadryl) 25 mg Q4H PRN PO SEE LABEL COMMENTS Last administered on 12/28/16 00:11; Start 12/27/16 at 04:15 Acetaminophen (Tylenol) 650 mg Q4H PRN PO SEE LABEL COMMENTS Last administered on 12/28/16 00:11; Start 12/27/16 at 04:15 Mupirocin (Bactroban 2% Oint) 1 applic TID TOPICAL Last administered on 09:36; Start 12/27/16 at 14:15 Dexamethasone (Decadron) 4 mg Q12HR PO ; Start 12/27/16 at 21:00; Stop 12/27/16 at 21:00; Status DC Dexamethasone (Decadron) 4 mg ONCE ONCE PO Last administered on 12/27/16 14: 30; Start 12/27/16 at 14:00; Stop 12/27/16 at 14:01; Status DC Oxycodone HCl (Roxicodone) 5 mg Q6H PRN PO PAIN 1-10 Last administered on 21:56; Start 12/27/16 at 14:00 Lisinopril (Prinivil) 10 mg DAILY PO ; Start 12/28/16 at 15:00; Stop 12/28/16 at 15:00; Status DC Clonidine (Catapres) 0.2 mg Q6H PRN PO SBP > 160; Start 12/27/16 at 14:15; Stop 12/27/16 at 14:15; Status DC Diatrizoate Meglum/ Diatrizoate Sod ( Gastroview Liq) 18 ml ONCE ONCE PO Last administered on 12/27/16 17:16; Start 12/27/16 at 16:45; Stop 12/27/16 at 16:46; Status DC Albuterol Sulfate (Albuterol Concentrated Neb) 2.5 mg [employer] NEB ; Start 12/27 at 16:45; Stop 12/31/16 at 16:44; Status DC Lidocaine HCl (Lidocaine Pf 4% Neb) 3 ml [employer] NEB ; Start 12/27/16 at 16:45 ; Stop 12/31/16 at 16:44; Status DC Vancomycin HCl 2000 mg/Sodium Chloride 520 ml @ 260 mls/hr Q12H IV Last administered on 12/29/16 02:15; Start 12/28/16 at 05:00; Stop 12/29/16 at 03:00 ; Status DC Miscellaneous Information SPECIFIC LAB TO BE DRAWN:VANCOMY... ONCE ONCE .XX ; Start 12/29/16 at 04:45; Stop 12/29/16 at 04:46; Status DC Sodium Chloride 250 ml @ 15 mls/hr ONCE ONCE IV ; Start 12/27/16 at 18:30; Stop 12/27/16 at 18:38; Status DC Sodium Chloride 250 ml @ 15 mls/hr ONCE ONCE IV ; Start 12/27/16 at 18:45; Stop 12/28/16 at 11:24; Status DC Gadodiamide (Omniscan Pf Inj) 30 ml STK-MED ONCE IVCONTRAST Last administered on 12/27/16 22:10; Start 12/27/16 at 22:10; Stop 12/27/16 at 22:11; Status DC Iohexol (Omnipaque 350 Inj) 95 ml STK-MED ONCE IVCONTRAST Last administered on 12/27/16 23:00; Start 12/27/16 at 23:00; Stop 12/27/16 at 23:03; Status DC Lactated Ringer's 1,000 ml @ 30 mls/hr Q24H PRN IV SEE LABEL COMMENTS; Start at 06:15; Stop 12/31/16 at 06:14; Status DC Sodium Chloride 500 ml @ 30 mls/hr [id number] PRN IV SEE LABEL COMMENTS; Start at 06:15; Stop 12/31/16 at 06:14; Status DC Povidone Iodine (Betadine 5% Antisepsis Kit) 1 applic [employer] PRN EACH NARE SEE LABEL COMMENTS; Start 12/28/16 at 06:15; Stop 12/31/16 at 06:14; Status DC Chlorhexidine Gluconate (Chlorhexidine 2% Cloth) 3 pack [employer] PRN TOPICAL SEE LABEL COMMENTS; Start 12/28/16 at 06:15; Stop 12/31/16 at 06:14; Status DC Insulin Human Regular (NovoLIN R INJ) See Protocol Table ... [employer] PRN SQ SEE PROTOCOL TABLE; Start 12/28/16 at 06:15; Stop 12/31/16 at 06:14; Status DC Dextrose 1,000 ml @ 84 mls/hr [id number] IV Last administered on 01/01/17 22:03 ; Start 12/28/16 at 09:00; Stop 01/02/17 at 12:34; Status DC Calcium Carbonate (Tums Chew) 500 mg Q6H PRN CHEW DYSPEPSIA OR HEARTBURN; Start 12/28/16 at 14:00 Pantoprazole Sodium (Protonix) 20 mg DAILY PO Last administered on 01/05/17 09 :36; Start 12/29/16 at 09:00 Famotidine (Pepcid Inj) 20 mg ONCE ONCE IV PUSH Last administered on 14:27; Start 12/28/16 at 14:20; Stop 12/28/16 at 14:21; Status DC Lidocaine HCl (Xylocaine 1% Inj) 20 ml STK-MED ONCE .ROUTE Last administered on 12/28/16 14:49; Start 12/28/16 at 14:49; Stop 12/28/16 at 14:50; Status DC Sodium Chloride (Sodium Chloride 0.9% Inj) 40 ml STK-MED ONCE .ROUTE ; Start at 15:54; Stop 12/28/16 at 15:55; Status DC Lidocaine HCl (Xylocaine 2% Inj) 50 ml STK-MED ONCE .ROUTE ; Start 12/28/16 at 15:55; Stop 12/28/16 at 15:56; Status DC Lidocaine HCl (Xylocaine 2% Viscous) 15 ml STK-MED ONCE .ROUTE ; Start 12/28/16 at 15:55; Stop 12/28/16 at 15:56; Status DC Lidocaine HCl (Xylocaine-Mpf 4% Inj) 5 ml STK-MED ONCE .ROUTE ; Start 12/28/16 at 15:55; Stop 12/28/16 at 15:56; Status DC Epinephrine HCl (Adrenalin (1:1000) Inj) 2 mg STK-MED ONCE .ROUTE ; Start at 15:55; Stop 12/28/16 at 15:56; Status DC Fentanyl Citrate (fentaNYL INJ) 250 mcg STK-MED ONCE .ROUTE Last administered on 12/28/16 16:38; Start 12/28/16 at 16:38; Stop 12/28/16 at 16:39; Status DC Midazolam HCl (Versed Inj) 4 mg STK-MED ONCE .ROUTE Last administered on 16:38; Start 12/28/16 at 16:38; Stop 12/28/16 at 16:39; Status DC Sugammadex Sodium (Bridion Inj) 400 mg STK-MED ONCE IV PUSH ; Start 12/28/16 at 17:30; Stop 12/28/16 at 17:31; Status DC Albuterol Sulfate (Albuterol Neb) 2.5 mg UNSCH X1 PRN NEB SHORTNESS OF BREATH; Start 12/28/16 at 18:15; Stop 12/29/16 at 18:14; Status DC Albuterol Sulfate (*ALBUTEROL NEB PERIprocedure ONLY) 2.5 mg STK-MED ONCE NEB Last administered on 12/28/16 18:20; Start 12/28/16 at 18:20; Stop 12/28/16 at 18:21; Status DC Fentanyl Citrate (fentaNYL INJ) 100 mcg STK-MED ONCE .ROUTE ; Start 12/28/16 at 18:27; Stop 12/28/16 at 18:28; Status DC Miscellaneous Information ALL NURSING DEPARTME... UNSCH PRN .XX SEE LABEL COMMENTS; Start 12/28/16 at 18:45; Stop 12/29/16 at 18:44; Status DC Lorazepam (Ativan Inj) 2 mg STK-MED ONCE .ROUTE ; Start 12/28/16 at 18:35; Stop 12/28/16 at 18:36; Status DC Cefepime HCl 2000 mg/Sodium Chloride 100 ml @ 200 mls/hr Q12H IV Last administered on 12/29/16 09:08; Start 12/28/16 at 21:00; Stop 12/29/16 at 22:34 ; Status DC Fluconazole/ Sodium Chloride 200 ml @ 100 mls/hr Q24H IV Last administered on 01/04/17 21:49; Start 12/28/16 at 22:00 Azithromycin 500 mg/Sodium Chloride 250 ml @ 250 mls/hr Q24H IV Last administered on 01/03/17 21:17; Start 12/28/16 at 20:00; Stop 01/04/17 at 14:48 ; Status DC Fentanyl Citrate (fentaNYL INJ) 100 mcg STK-MED ONCE .ROUTE ; Start 12/28/16 at 19:47; Stop 12/28/16 at 19:48; Status DC Vancomycin HCl 2000 mg/Sodium Chloride 520 ml @ 260 mls/hr Q12H IV Last administered on 12/30/16 16:14; Start 12/29/16 at 14:00; Stop 12/30/16 at 20:00 ; Status DC Miscellaneous Information SPECIFIC LAB TO BE DRAWN:VANCOMYCIN TROUGH DATE TO... ONCE ONCE .XX Last administered on 12/30/16 02:00; Start 12/30/16 at 01:45; Stop 12/30/16 at 01:46; Status DC Methylprednisolone Sodium Succinate (SoluMEDROL INJ) 40 mg ONCE ONCE IV PUSH Last administered on 12/29/16 22:08; Start 12/29/16 at 21:15; Stop 12/29/16 at 21:16; Status DC Methylprednisolone Sodium Succinate (SoluMEDROL INJ) 125 mg NOW ONCE IV ; Start 12/29/16 at 21:30; Stop 12/29/16 at 21:30; Status DC Allopurinol (Zyloprim) 200 mg BID PO Last administered on 01/05/17 09:36; Start 12/29/16 at 22:00 Cefepime HCl 2000 mg/Sodium Chloride 100 ml @ 200 mls/hr Q12H IV Last administered on 01/04/17 11:09; Start 12/29/16 at 23:00; Stop 01/04/17 at 14:48 ; Status DC Sodium Chloride (NS Flush) 5 ml DAILY IV FLUSH ; Start 12/30/16 at 09:00 Heparin Sodium (Porcine) (Heparin Central Flush) 500 units DAILY IV FLUSH ; Start 12/30/16 at 09:00 Sodium Chloride (NS Flush) 5 ml UNSCH PRN IV FLUSH SEE PROTOCOL TABLE; Start at 06:30 Heparin Sodium (Porcine) (Heparin Central Flush) 500 units UNSCH PRN IV FLUSH SEE PROTOCOL TABLE Last administered on 12/31/16 15:45; Start 12/30/16 at 06:30 Acetaminophen (Tylenol) 650 mg ONCE ONCE PO Last administered on 12/30/16 10: 38; Start 12/30/16 at 08:30; Stop 12/30/16 at 08:31; Status DC Diphenhydramine HCl (Benadryl) 25 mg ONCE ONCE PO Last administered on 10:37; Start 12/30/16 at 08:30; Stop 12/30/16 at 08:31; Status DC Methylprednisolone Sodium Succinate (SoluMEDROL INJ) 40 mg ONCE ONCE IV PUSH Last administered on 12/30/16 10:37; Start 12/30/16 at 10:00; Stop 12/30/16 at 10:04; Status DC Cefazolin Sodium/ Dextrose 50 ml @ 100 mls/hr [employer] IV ; Start 12/30/16 at 10:30; Stop 01/03/17 at 10:29; Status DC Methylprednisolone Sodium Succinate (SoluMEDROL INJ) 40 mg ONCE IM ; Start 12/31 at 07:00; Status UNV Granisetron HCl 1 mg/Dexamethasone Sodium Phosphate 20 mg/Sodium Chloride 56 ml @ 336 mls/hr Q24H IV Last administered on 01/05/17 02:59; Start 12/31/16 at 17:30; Stop 01/06/17 at 17:39 Midazolam HCl (Versed Inj) 4 mg STK-MED ONCE .ROUTE Last administered on 14:40; Start 12/31/16 at 14:40; Stop 12/31/16 at 14:41; Status DC Fentanyl Citrate (fentaNYL INJ) 250 mcg STK-MED ONCE .ROUTE Last administered on 12/31/16 14:40; Start 12/31/16 at 14:40; Stop 12/31/16 at 14:41; Status DC Cytarabine 200 mg/ Sodium Chloride 500 ml @ 20.833 mls/ hr Q24H IV Last administered on 01/05/17 03:31; Start 12/31/16 at 18:30; Stop 01/07/17 at 18:29 Daunorubicin HCl 180 mg/Sodium Chloride 136 ml @ 272 mls/hr Q24H IV Last administered on 01/03/17 01:51; Start 12/31/16 at 18:00; Stop 01/02/17 at 18:29 ; Status DC Lidocaine/ Epinephrine (Xylocaine-Epi Mpf 2%-1:200,000 Inj) 20 ml STK-MED ONCE .ROUTE Last administered on 12/31/16 15:19; Start 12/31/16 at 15:08; Stop at 15:09; Status DC Heparin Sodium (Porcine) (Heparin Central Flush) 500 units UNSCH IV FLUSH ; Start 12/31/16 at 15:45 Sodium Chloride (NS Flush) 5 ml UNSCH PRN IVF SEE PROTOCOL; Start 12/31/16 at 15:45 Heparin Sodium (Porcine) (Heparin Central Flush) 250 units UNSCH PRN IV FLUSH SEE PROTOCOL; Start 12/31/16 at 15:45 Methylprednisolone Sodium Succinate (SoluMEDROL INJ) 40 mg ONCE ONCE IV Last administered on 12/31/16 21:09; Start 12/31/16 at 17:00; Stop 12/31/16 at 17:01 ; Status DC Sodium Chloride 1,000 ml @ 42 mls/hr [id number] IV Last administered on 10:56; Start 01/02/17 at 12:45 Promethazine HCl (Phenergan) 25 mg Q4H PRN PO nausea or vomitting Last administered on 01/04/17 23:52; Start 01/04/17 at 10:15 Levofloxacin (Levaquin) 750 mg DAILY@1100 PO Last administered on 01/05/17 10: 54; Start 01/04/17 at 16:00 Calcium Chloride 1 gm/Dextrose 110 ml @ 110 mls/hr ONCE ONCE IV Last administered on 01/04/17 23:43; Start 01/04/17 at 23:00; Stop 01/04/17 at 23:59 ; Status DC Dicyclomine HCl (Bentyl) 20 mg TID PO Last administered on 01/05/17 10:54; Start 01/05/17 at 10:00 A/P Problem List: (1) SIRS (systemic inflammatory response syndrome) ICD Code: R65.10 - Systemic inflammatory response syndrome (SIRS) of non- infectious origin without acute organ dysfunction Status: Acute (2) GABRIELA (acute kidney injury) ICD Code: N17.9 - Acute kidney failure, unspecified Status: Acute (3) Thrombocytopenia ICD Code: D69.6 - Thrombocytopenia, unspecified Status: Acute (4) Lymphocytosis ICD Code: D72.820 - Lymphocytosis (symptomatic) Status: Acute (5) Anemia ICD Code: D64.9 - Anemia, unspecified Status: Acute Assessment and Plan Neutropenic fever of likely underlying pneumonia due to underlying hypoxia and CT scan findings - Blood culture no growth to date, CSF cultures no growth to date, , continuing broad-spectrum antibiotics with vancomycin and cefepime, additionally on azithromycin and fluconazole per infectious disease. Fevers have not recurred for the last 72 hours. bronchioloalveolar lavage and Cultures currently negative acute respiratory failure with hypoxia likely due to underlying pneumonia -improving on antibiotics; continue oxygen support and wean as tolerated. 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 Continue chemotherapy per oncologist. Nausea -Most likely secondary to chemotherapy. Continue with Zofran when necessary and Phenergan Continue to monitor clinically. Abdominal spasm -Senna was held. Will try Bentyl. Pancytopenia - Hematology proceeding with induction therapy, secondary to #3. GABRIELA: Resolved DVT prophylaxis pharmaceutical anticoagulation contraindicated due to pancytopenia. Bia Small MD Jan 05, 2017 11:24
[2017-01-05] MEDS ORDERED: SODIUM CHLORID 0.9% 500 ML INJ 500 ML IV ONE (13:45)
--- NOTE | 2017-01-05 13:45 | PD.ONC.PN ---
Subjective Subjective Remarks "Today is the worst I felt since this started" Reports abdominal cramping and nausea No appetite today Objective Data Date Time Temp Pulse Resp B/P (MAP) Pulse Ox O2 Delivery O2 Flow Rate FiO2 01/05/17 09:46 Nasal Cannula 3.00 01/05/17 09:30 96.8 84 20 93/50 (64) 99 104/72 (83) 01/05/17 04:11 97.9 79 18 108/54 (72) 98 01/05/17 04:00 71 01/05/17 00:04 96.8 87 20 122/88 (99) 97 01/05/17 00:00 82 01/04/17 22:00 97 Nasal Cannula 3.00 01/04/17 21:30 96 Room Air 01/04/17 20:50 96.2 78 20 108/51 (70) 96 01/04/17 20:00 87 01/04/17 16:01 82 01/04/17 16:00 98.2 82 20 119/53 (75) 97 01/04/17 14:26 98.3 89 20 122/58 (79) 99 01/04/17 14:00 97.0 80 18 115/54 (74) 96 01/05/17 01/05/17 01/05/17 07:00 15:00 23:00 Intake Total 502.64 ml 1125 ml Output Total 1000 ml 900 ml Balance -497.36 ml 225 ml Result Diagram: 01/05/17 0605 01/05/17 0605 Laboratory Results Laboratory Tests Test 01/05/17 06:05 White Blood Count 0.5 TH/MM3 Red Blood Count 2.23 MIL/MM3 Hemoglobin 7.4 GM/DL Hematocrit 21.1 % Mean Corpuscular Volume 94.6 FL Mean Corpuscular Hemoglobin 33.1 PG Mean Corpuscular Hemoglobin Concent 35.0 % Red Cell Distribution Width 17.6 % Platelet Count 33 TH/MM3 Mean Platelet Volume 7.5 FL CBC Comment AUTO DIFF Differential Total Cells Counted 50 Neutrophils % (Manual) 14 % Lymphocytes % 54 % Monocytes % 32 % Neutrophils # (Manual) 0.1 TH/MM3 Differential Comment FINAL DIFF MANUAL Platelet Estimate LOW Platelet Morphology Comment NORMAL Blood Urea Nitrogen 21 MG/DL Creatinine 0.72 MG/DL Random Glucose 136 MG/DL Total Protein 6.5 GM/DL Albumin 2.7 GM/DL Calcium Level 7.6 MG/DL Phosphorus Level 4.0 MG/DL Magnesium Level 2.7 MG/DL Uric Acid 2.6 MG/DL Alkaline Phosphatase 30 U/L Aspartate Amino Transf (AST/SGOT) 7 U/L Alanine Aminotransferase (ALT/SGPT) 63 U/L Total Bilirubin 1.1 MG/DL Sodium Level 136 MEQ/L Potassium Level 4.8 MEQ/L Chloride Level 101 MEQ/L Carbon Dioxide Level 27.5 MEQ/L Anion Gap 8 MEQ/L Estimat Glomerular Filtration Rate 134 ML/MIN Administered Medications Medications (Trade) Dose Ordered Sig/Emma Route PRN Reason Start Time Stop Time Status Last Admin Dose Admin Sodium Chloride (NS Flush) 2 ml UNSCH PRN IV FLUSH FLUSH AFTER USING IV ACCESS 12/25/16 23:00 12/30/16 04:59 Sodium Chloride (NS Flush) 2 ml BID IV FLUSH 12/26/16 09:00 01/05/17 09:36 Ondansetron HCl (Zofran Inj) 4 mg Q6H PRN IVP NAUSEA OR VOMITING 12/25/16 23:00 01/05/17 09:36 Acetaminophen (Tylenol) 650 mg Q6H PRN PO FEVER>100.4 12/25/16 23:00 12/29/16 22:30 Morphine Sulfate (Morphine Inj) 2 mg Q3H PRN IV Pain 6-10 12/25/16 23:00 01/05/17 01:32 Senna/Docusate Sodium (Rika-Colace) 1 tab BID PO 12/26/16 09:00 01/04/17 21:49 Benzonatate (Tessalon) 100 mg Q4H PRN PO COUGH 12/26/16 05:15 12/26/16 15:12 Promethazine HCl/ Codeine (Phenergan-Codeine Liq) 5 ml Q4H PRN PO COUGH 12/26/16 20:00 12/31/16 17:09 Diphenhydramine HCl (Benadryl) 25 mg Q4H PRN PO SEE LABEL COMMENTS 12/27/16 04:15 12/28/16 00:11 Acetaminophen (Tylenol) 650 mg Q4H PRN PO SEE LABEL COMMENTS 12/27/16 04:15 12/28/16 00:11 Mupirocin (Bactroban 2% Oint) 1 applic TID TOPICAL 12/27/16 14:15 01/05/17 09:36 Oxycodone HCl (Roxicodone) 5 mg Q6H PRN PO PAIN 1-10 12/27/16 14:00 12/28/16 21:56 Pantoprazole Sodium (Protonix) 20 mg DAILY PO 12/29/16 09:00 01/05/17 09:36 Fluconazole/ Sodium Chloride 200 ml @ 100 mls/hr Q24H IV 12/28/16 22:00 01/04/17 21:49 Allopurinol (Zyloprim) 200 mg BID PO 12/29/16 22:00 01/05/17 09:36 Heparin Sodium (Porcine) (Heparin Central Flush) 500 units UNSCH PRN IV FLUSH SEE PROTOCOL TABLE 12/30/16 06:30 12/31/16 15:45 Granisetron HCl 1 mg/Dexamethasone Sodium Phosphate 20 mg/Sodium Chloride 56 ml @ 336 mls/hr Q24H IV 12/31/16 17:30 01/06/17 17:39 01/05/17 02:59 Cytarabine 200 mg/ Sodium Chloride 500 ml @ 20.833 mls/ hr Q24H IV 12/31/16 18:30 01/07/17 18:29 01/05/17 03:31 Sodium Chloride 1,000 ml @ 42 mls/hr [id number] IV 01/02/17 12:45 01/05/17 10:56 Promethazine HCl (Phenergan) 25 mg Q4H PRN PO nausea or vomitting 01/04/17 10:15 01/04/17 23:52 Levofloxacin (Levaquin) 750 mg DAILY@1100 PO 01/04/17 16:00 01/05/17 10:54 Dicyclomine HCl (Bentyl) 20 mg TID PO 01/05/17 10:00 01/05/17 10:54 Objective Remarks GENERAL: Obese younger male resting in bed on 3L nasal cannula. SKIN: Warm and dry. Infusaport to R chest. HEAD: Normocephalic. EYES: No injection or drainage. NECK: Supple, trachea midline. CARDIOVASCULAR: Regular rate and rhythm RESPIRATORY: Clear anteriorly. On 3L NC, O2 sats at bedside showed 99%. GASTROINTESTINAL: Abdomen obese. Nontender to palpation. EXTREMITIES: No cyanosis. No edema. NEUROLOGICAL: No obvious focal deficit. Awake, alert, and oriented x3. 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 - Acute myeloblastic leukemia, not having achieved remission Plan: -- Preliminary BMB showed 70% blasts in bone marrow -- Cytogenetics (FLT and KIT) pending -- MUGA scan shows normal ejection fraction with no wall motion abnormalities 12/31 Day 1: Daunorubicin and Cytarabine 01/01 Day 2: Daunorubicin and Cytarabine 01/02 Day 3: Daunorubicin and Cytarabine 01/03 Day 4: Cytarabine 01/04 Day 5: Cytarabine 01/05 Day 6: Cytarabine 01/06 Day 7: Cytarabine (2) Neutropenia ICD Codes: D70.9 - Neutropenia, unspecified Status: Acute Plan: -- ID following -- On Cefepime, cefazolin, Azithromycin and Fluconazole -- BC on 12/25 = no growth. -- Bronchoscopy on 12/28= no growth. -- BC on 12/29= no growth. Assessment 26 y/o male with no major past medical history who was brought in for headache, confusion and cough. Plan 1. Pt feeling poorly, but tolerating day #6 of induction chemotherapy. Currently receiving daily cytarabine. Las dose scheduled to be hung tomorrow evening. 2. Pt reports feeling somewhat dizzy; noted that he has had a negative fluid balance as well as a lower blood pressure been normal. Will give a 500 mL normal saline bolus. 3. Pt remains afebrile. All BC negative. 4. Monitor for tumor lysis; no replacement needed today 5. Monitor blood counts. Anticipate that he may need irradiated PRBC transfusion in am. 6. Transfuse to keep platelets greater than 10k, PRBC greater than 10g/dl. Attending Statement The exam, history, and the medical decision-making described in the above note were completed with the assistance of the mid-level provider. I reviewed and agree with the findings presented. I attest that I had a [id number] encounter with the patient on the same day, and personally performed and documented my assessment and findings in the medical record. 1. 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 Febrile Neutropenia -- Remains afebrile - STOP LEVAQUIN TOMORROW--if remains afebrile - Repeat blood cultures X 2 12/29- no growth - Blood cultures with no growth 12/25 2. Headache/Nausea - Symptoms resolved - Brain MRI negative 3 Acute Respiratory distress--Resolved - s/p broch--negative results thus far - Possibility of leukemic infiltrates--can be seen in AML M4 - Nebs prn 4. FEN - replace electrolytes - Calcium, Mag and Phosp daily 5. Thrombocytopenia - no evidence of DIC - Check Fibronogen every other day - Transfuse to keep platelets > 10 - Will need irradiated blood products 6. Anemia - transfuse to keep Hb > 7 - will need irradiated blood products 7. Tumor Lysis Prophylaxis - DECREASE ALLOPURINOL TO 200MG DAILY - Check daily Phosp/Uric acid 8. Nausea--persistent - SCHEDULED ZOFRAN FOR THE NEXT 72 HOURS -phenergan prn 9. Abdominal Spasm - trial of dicyclomine - no diarrhea or constipation overnight events reviewed jeanette adams Problem Qualifiers (1) Neutropenia: Robina Cui Jan 05, 2017 13:45 Joey Santoyo MD Jan 05, 2017 23:56
[2017-01-05 16:31] LABS: COCCIDIOIDES COMPLEMENT Negative (Negative); COCCIDIOIDES IMMUNO IGG Negative (Negative); COCCIDIOIDES IMMUNO IGM Negative (Negative)
[2017-01-05] MEDS: PROMETHAZINE HCL 25 MG TAB PO PRN (16:51)
[2017-01-06] VITALS (12 sets, daily range): BP systolic 101–123; BP diastolic 53–58; PULSE 67–91; RESP 16–20; TEMP 96.9–97.9; O2SAT 96–98
[2017-01-06] MEDS: GRANISETRON INJ 1 MG, DEXAMETHASONE INJ 20 MG in SODIUM CHLORIDE 0.9% INJ 50 ML IV SCH (02:42)
[2017-01-06] MEDS: MORPHINE SULFATE 4 MG/ML INJ IV PRN ×6 (03:47→22:09)
[2017-01-06] MEDS: SODIUM CHLORID 0.9% IV SCH (04:25)
[2017-01-06] MEDS: CYTARABINE IV SCH (04:25)
[2017-01-06] MEDS: ONDANSETRON HCL 4 MG/2 ML VIAL IV PUSH SCH ×3 (04:28→22:13)
[2017-01-06 05:57] LABS: HEMATOCRIT 22.2 % (39.0-51.0); MEAN CELL VOLUME 93.4 FL (80.0-100.0); MEAN CORPUSCULAR HEMOGLOBIN 32.7 PG (27.0-34.0); PLATELET COUNT 22 TH/MM3 (150-450); RED BLOOD COUNT 2.37 MIL/MM3 (4.50-5.90); RED CELL DISTRIBUTION WIDTH 16.9 % (11.6-17.2); WHITE BLOOD COUNT 0.3 TH/MM3 (4.0-11.0)
[2017-01-06 05:58] LABS: HEMO FLAGS AUTO DIFF
[2017-01-06 06:21] LABS: BICARBONATE 26.6 MEQ/L (21.0-32.0); CALCIUM-PROTEIN CORRECTED 7.7 MG/DL (8.5-10.1); MAGNESIUM 2.6 MG/DL (1.5-2.5); POTASSIUM 4.4 MEQ/L (3.5-5.1); TOTAL BILIRUBIN ADULT 0.7 MG/DL (0.2-1.0); URIC ACID 2.4 MG/DL (2.6-7.2)
[2017-01-06 07:04] LABS: POLYS (SEG NEUTROPHILS) 12 % (16-70); PROMYELOCYTES 4 % (0-0); WBC DIFF SAMPLE 25
[2017-01-06 07:05] LABS: PLATELET ESTIMATE SMEAR LOW (NORMAL); PLATELET MORPHOLOGY NORMAL (NORMAL)
[2017-01-06 07:06] LABS: SCAN/DIFF FINAL DIFF MANUAL
[2017-01-06] MEDS: PROMETHAZINE HCL 25 MG TAB PO PRN ×2 (07:50→14:43)
[2017-01-06] MEDS: PANTOPRAZOLE SOD 20 MG DELAYED RELEASE TAB PO SCH (07:51)
[2017-01-06] MEDS: ALLOPURINOL 100 MG TAB PO SCH (07:51)
[2017-01-06] MEDS: DICYCLOMINE HCL 20 MG TAB PO SCH ×3 (07:51→17:30)
[2017-01-06] MEDS: DOCUSATE SODIUM 50 MG/SENNA 8.6 MG TAB PO SCH ×2 (07:57→21:00)
[2017-01-06] MEDS: Hickman Catheter Daily NS Lock Flush IV FLUSH SCH (07:57)
[2017-01-06] MEDS: SODIUM CHLORIDE 0.9% FLUSH 10 ML FLUSH IV FLUSH SCH ×2 (07:57→22:12)
[2017-01-06] MEDS: MUPIROCIN 2% OINT 22 GM TUBE TOPICAL SCH ×3 (07:58→22:14)
[2017-01-06] MEDS ORDERED: CALCIUM CHLORIDE INJ 1 GM in SODIUM CHLORIDE 0.9% INJ 100 ML IV ONE ×2 (08:30→15:00)
[2017-01-06] MEDS ORDERED: HYOSCYAMINE 0.125 MG TAB PO PRN (09:30)
--- NOTE | 2017-01-06 10:08 | HHI.PR ---
Subjective Remarks Follow-up for abdominal pain Patient says he continues to have spasm in his abdomen and that pain is diffused. He said that it has worsened. Deny nausea or vomiting. He remains afebrile. Patient also denies any constipation or diarrhea. He stated he has regular bowel movements. Dealt with patient's nurse he stated that oncologist will put patient on Levsin and if he does not improve her to imaging this afternoon. Otherwise he has no other complaints. Patient is afebrile. Objective Vitals Vital Signs Date Time Temp Pulse Resp B/P (MAP) Pulse Ox O2 Delivery O2 Flow Rate FiO2 01/06/17 07:43 97.7 68 16 115/54 (74) 97 01/06/17 04:14 78 01/06/17 04:00 97.9 91 20 122/58 (79) 98 01/06/17 00:15 90 01/06/17 00:00 96.9 81 18 117/58 (77) 98 01/05/17 20:05 91 01/05/17 20:00 97.3 89 18 101/46 (64) 99 01/05/17 16:05 81 01/05/17 15:13 97.7 87 16 110/55 (73) 100 01/05/17 13:00 97.3 82 22 107/56 (73) 99 01/05/17 12:20 69 I/O 01/05/17 01/05/17 01/05/17 01/06/17 01/06/17 01/06/17 07:00 15:00 23:00 07:00 15:00 23:00 Intake Total 502.64 ml 1365 ml 1121 ml 480 ml Output Total 1000 ml 900 ml 700 ml Balance -497.36 ml 465 ml 1121 ml 480 ml -700 ml Intake Oral 240 ml 480 ml 480 ml IV Total 502.64 ml 1125 ml 641 ml Output Urine Total 1000 ml 900 ml 700 ml # Voids 1 # Bowel Movements 1 1 Result Diagram: 01/06/1743901/06/17 0440 Objective Remarks GENERAL: In no acute distress but looks weak. SKIN: Warm and dry. Port in place. No erythema or discharge noted around the port site. CARDIOVASCULAR: Regular rate and rhythm without murmurs, gallops, or rubs. RESPIRATORY: Breath sounds equal bilaterally. No accessory muscle use. GASTROINTESTINAL: Abdomen soft,diffuse TTP to deep palpation, nondistended. Procedures 12/31 [id number] placement Medications and IVs Current Medications Acetaminophen (Tylenol) 650 mg ONCE ONCE PO Last administered on 12/25/16 20: 28; Start 12/25/16 at 19:45; Stop 12/25/16 at 19:46; Status DC Sodium Chloride 1,000 ml @ 1,000 mls/hr Q1H ONCE IV Last administered on 20:27; Start 12/25/16 at 19:41; Stop 12/25/16 at 20:40; Status DC Sodium Chloride 1,000 ml @ 1,000 mls/hr Q1H ONCE IV Last administered on 20:41; Start 12/25/16 at 19:41; Stop 12/25/16 at 20:40; Status DC Sodium Chloride 1,000 ml @ 1,000 mls/hr Q1H ONCE IV Last administered on 21:09; Start 12/25/16 at 19:41; Stop 12/25/16 at 20:40; Status DC Sodium Chloride 900 ml @ 1,000 mls/hr Q54M ONCE IV Last administered on 21:46; Start 12/25/16 at 19:41; Stop 12/25/16 at 20:34; Status DC Prochlorperazine Edisylate (Compazine Inj) 10 mg ONCE ONCE IV PUSH Last administered on 12/25/16 20:28; Start 12/25/16 at 19:45; Stop 12/25/16 at 19:46 ; Status DC Diphenhydramine HCl (Benadryl Inj) 25 mg ONCE ONCE IV PUSH Last administered on 12/25/16 20:27; Start 12/25/16 at 19:45; Stop 12/25/16 at 19:46; Status DC Cefepime HCl 2000 mg/Sodium Chloride 100 ml @ 200 mls/hr ONCE STAT IV Last administered on 12/25/16 21:46; Start 12/25/16 at 21:13; Stop 12/25/16 at 21:42 ; Status DC Pharmacy Profile Note 0 ml @ 0 mls/hr UNSCH OTHER ; Start 12/25/16 at 23:00; Stop 12/30/16 at 20:00; Status DC Cefepime HCl 1000 mg/Sodium Chloride 100 ml @ 200 mls/hr Q12H IV Last administered on 12/28/16 08:18; Start 12/26/16 at 09:00; Stop 12/28/16 at 19:05 ; Status DC Sodium Chloride 1,000 ml @ 100 mls/hr Q10H IV Last administered on 12/27/16 17:17; Start 12/25/16 at 23:00; Stop 12/28/16 at 09:00; Status DC Sodium Chloride (NS Flush) 2 ml UNSCH PRN IV FLUSH FLUSH AFTER USING IV ACCESS Last administered on 12/30/16 04:59; Start 12/25/16 at 23:00 Sodium Chloride (NS Flush) 2 ml BID IV FLUSH Last administered on 01/05/17 09: 36; Start 12/26/16 at 09:00 Ondansetron HCl (Zofran Inj) 4 mg Q6H PRN IVP NAUSEA OR VOMITING Last administered on 01/05/17 15:10; Start 12/25/16 at 23:00 Acetaminophen (Tylenol) 650 mg Q6H PRN PO FEVER>100.4 Last administered on 12/29 22:30; Start 12/25/16 at 23:00 Acetaminophen/ Hydrocodone Bitart ([place]on 5-325 Mg) 1 tab Q4H PRN PO PAIN SCALE 3 TO 5 Last administered on 12/27/16 12:05; Start 12/25/16 at 23:00; Stop 12/27/16 at 13:56; Status DC Morphine Sulfate (Morphine Inj) 2 mg Q3H PRN IV Pain 6-10 Last administered on 01/06/17 07:51; Start 12/25/16 at 23:00 Senna/Docusate Sodium (Rika-Colace) 1 tab BID PO Last administered on 21:49; Start 12/26/16 at 09:00 Magnesium Hydroxide (Milk Of Magnesia Liq) 30 ml Q12H PRN PO MILD - MODERATE CONSTIPATION; Start 12/25/16 at 23:00 Sennosides (Senokot) 17.2 mg Q12H PRN PO MODERATE - SEVERE CONSTIPATION; Start 12/25/16 at 23:00 Bisacodyl (Dulcolax Supp) 10 mg DAILY PRN RECTAL SEVERE CONSITIPATION; Start at 23:00 Lactulose (Lactulose Liq) 30 ml DAILY PRN PO SEVERE CONSITIPATION; Start at 23:00 Vancomycin HCl 2500 mg/Sodium Chloride 525 ml @ 250 mls/hr Q12H IV Last administered on 12/26/16 00:27; Start 12/26/16 at 01:00; Stop 12/26/16 at 04:00 ; Status DC Guaifenesin/ Dextromethorphan (Robitussin Dm 200-20 Mg/10 ml Liq) 10 ml Q4H PRN PO cough Last administered on 12/26/16 18:19; Start 12/26/16 at 01:45; Stop 12/26/16 at 19:43; Status DC Benzonatate (Tessalon) 100 mg Q4H PRN PO COUGH Last administered on 12/26/16 15:12; Start 12/26/16 at 05:15 Vancomycin HCl 2000 mg/Sodium Chloride 520 ml @ 260 mls/hr Q12H IV Last administered on 12/27/16 17:16; Start 12/26/16 at 13:00; Stop 12/27/16 at 18:13 ; Status DC Miscellaneous Information SPECIFIC LAB TO BE ... ONCE ONCE .XX Last administered on 12/27/16 17:05; Start 12/27/16 at 12:45; Stop 12/27/16 at 12:46 ; Status DC Sodium Bicarbonate 50 ml @ As Directed STK-MED ONCE .ROUTE Last administered on 12/26/16 16:54; Start 12/26/16 at 16:54; Stop 12/26/16 at 16:55; Status DC Iohexol (Omnipaque 350 Inj) 71 ml STK-MED ONCE IV Last administered on 17:47; Start 12/26/16 at 17:47; Stop 12/26/16 at 17:48; Status DC Albuterol/ Ipratropium (Duoneb Neb) 1 ampule Q6HR WHILE AWAKE NEB NEB Last administered on 12/30/16 09:15; Start 12/26/16 at 20:00; Stop 12/30/16 at 20:00 ; Status DC Guaifenesin/ Codeine Phosphate (Robitussin Ac 200-20 Mg/10 ml Liq) 10 ml Q4H PRN PO codine; Start 12/26/16 at 19:45; Stop 12/29/16 at 11:01; Status DC Promethazine HCl/ Codeine (Phenergan-Codeine Liq) 5 ml Q4H PRN PO COUGH Last administered on 12/31/16 17:09; Start 12/26/16 at 20:00 Sodium Chloride 250 ml @ 15 mls/hr ONCE ONCE IV Last administered on 23:23; Start 12/26/16 at 23:15; Stop 12/27/16 at 15:54; Status DC Acetaminophen (Tylenol) 650 mg Q4H PRN PO SEE LABEL COMMENTS; Start 12/26/16 at 23:15; Stop 12/27/16 at 03:16; Status DC Diphenhydramine HCl (Benadryl) 25 mg Q4H PRN PO SEE LABEL COMMENTS; Start 12/26 at 23:15; Stop 12/27/16 at 03:16; Status DC Calcium Gluconate 1 gm/Dextrose 110 ml @ 110 mls/hr ONCE ONCE IV Last administered on 12/26/16 23:56; Start 12/26/16 at 23:30; Stop 12/27/16 at 00:29 ; Status DC Diphenhydramine HCl (Benadryl) 25 mg Q4H PRN PO SEE LABEL COMMENTS Last administered on 12/28/16 00:11; Start 12/27/16 at 04:15 Acetaminophen (Tylenol) 650 mg Q4H PRN PO SEE LABEL COMMENTS Last administered on 12/28/16 00:11; Start 12/27/16 at 04:15 Mupirocin (Bactroban 2% Oint) 1 applic TID TOPICAL Last administered on 07:58; Start 12/27/16 at 14:15 Dexamethasone (Decadron) 4 mg Q12HR PO ; Start 12/27/16 at 21:00; Stop 12/27/16 at 21:00; Status DC Dexamethasone (Decadron) 4 mg ONCE ONCE PO Last administered on 12/27/16 14: 30; Start 12/27/16 at 14:00; Stop 12/27/16 at 14:01; Status DC Oxycodone HCl (Roxicodone) 5 mg Q6H PRN PO PAIN 1-10 Last administered on 21:56; Start 12/27/16 at 14:00 Lisinopril (Prinivil) 10 mg DAILY PO ; Start 12/28/16 at 15:00; Stop 12/28/16 at 15:00; Status DC Clonidine (Catapres) 0.2 mg Q6H PRN PO SBP > 160; Start 12/27/16 at 14:15; Stop 12/27/16 at 14:15; Status DC Diatrizoate Meglum/ Diatrizoate Sod ( Gastroview Liq) 18 ml ONCE ONCE PO Last administered on 12/27/16 17:16; Start 12/27/16 at 16:45; Stop 12/27/16 at 16:46; Status DC Albuterol Sulfate (Albuterol Concentrated Neb) 2.5 mg FASTENER TECHNOLOGIST NEB ; Start 12/27 at 16:45; Stop 12/31/16 at 16:44; Status DC Lidocaine HCl (Lidocaine Pf 4% Neb) 3 ml FASTENER TECHNOLOGIST NEB ; Start 12/27/16 at 16:45 ; Stop 12/31/16 at 16:44; Status DC Vancomycin HCl 2000 mg/Sodium Chloride 520 ml @ 260 mls/hr Q12H IV Last administered on 12/29/16 02:15; Start 12/28/16 at 05:00; Stop 12/29/16 at 03:00 ; Status DC Miscellaneous Information SPECIFIC LAB TO BE DRAWN:VANCOMY... ONCE ONCE .XX ; Start 12/29/16 at 04:45; Stop 12/29/16 at 04:46; Status DC Sodium Chloride 250 ml @ 15 mls/hr ONCE ONCE IV ; Start 12/27/16 at 18:30; Stop 12/27/16 at 18:38; Status DC Sodium Chloride 250 ml @ 15 mls/hr ONCE ONCE IV ; Start 12/27/16 at 18:45; Stop 12/28/16 at 11:24; Status DC Gadodiamide (Omniscan Pf Inj) 30 ml STK-MED ONCE IVCONTRAST Last administered on 8/20/17at 22:10; Start 12/27/16 at 22:10; Stop 12/27/16 at 22:11; Status DC Iohexol (Omnipaque 350 Inj) 95 ml STK-MED ONCE IVCONTRAST Last administered on 12/27/16 23:00; Start 12/27/16 at 23:00; Stop 12/27/16 at 23:03; Status DC Lactated Ringer's 1,000 ml @ 30 mls/hr Q24H PRN IV SEE LABEL COMMENTS; Start at 06:15; Stop 12/31/16 at 06:14; Status DC Sodium Chloride 500 ml @ 30 mls/hr [id number] PRN IV SEE LABEL COMMENTS; Start at 06:15; Stop 12/31/16 at 06:14; Status DC Povidone Iodine (Betadine 5% Antisepsis Kit) 1 applic FASTENER TECHNOLOGIST PRN EACH NARE SEE LABEL COMMENTS; Start 12/28/16 at 06:15; Stop 12/31/16 at 06:14; Status DC Chlorhexidine Gluconate (Chlorhexidine 2% Cloth) 3 pack FASTENER TECHNOLOGIST PRN TOPICAL SEE LABEL COMMENTS; Start 12/28/16 at 06:15; Stop 12/31/16 at 06:14; Status DC Insulin Human Regular (NovoLIN R INJ) See Protocol Table ... FASTENER TECHNOLOGIST PRN SQ SEE PROTOCOL TABLE; Start 12/28/16 at 06:15; Stop 12/31/16 at 06:14; Status DC Dextrose 1,000 ml @ 84 mls/hr [id number] IV Last administered on 01/01/17 22:03 ; Start 12/28/16 at 09:00; Stop 01/02/17 at 12:34; Status DC Calcium Carbonate (Tums Chew) 500 mg Q6H PRN CHEW DYSPEPSIA OR HEARTBURN; Start 12/28/16 at 14:00 Pantoprazole Sodium (Protonix) 20 mg DAILY PO Last administered on 01/06/17 07 :51; Start 12/29/16 at 09:00 Famotidine (Pepcid Inj) 20 mg ONCE ONCE IV PUSH Last administered on 14:27; Start 12/28/16 at 14:20; Stop 12/28/16 at 14:21; Status DC Lidocaine HCl (Xylocaine 1% Inj) 20 ml STK-MED ONCE .ROUTE Last administered on 12/28/16 14:49; Start 12/28/16 at 14:49; Stop 12/28/16 at 14:50; Status DC Sodium Chloride (Sodium Chloride 0.9% Inj) 40 ml STK-MED ONCE .ROUTE ; Start at 15:54; Stop 12/28/16 at 15:55; Status DC Lidocaine HCl (Xylocaine 2% Inj) 50 ml STK-MED ONCE .ROUTE ; Start 12/28/16 at 15:55; Stop 12/28/16 at 15:56; Status DC Lidocaine HCl (Xylocaine 2% Viscous) 15 ml STK-MED ONCE .ROUTE ; Start 12/28/16 at 15:55; Stop 12/28/16 at 15:56; Status DC Lidocaine HCl (Xylocaine-Mpf 4% Inj) 5 ml STK-MED ONCE .ROUTE ; Start 12/28/16 at 15:55; Stop 12/28/16 at 15:56; Status DC Epinephrine HCl (Adrenalin (1:1000) Inj) 2 mg STK-MED ONCE .ROUTE ; Start at 15:55; Stop 12/28/16 at 15:56; Status DC Fentanyl Citrate (fentaNYL INJ) 250 mcg STK-MED ONCE .ROUTE Last administered on 12/28/16 16:38; Start 12/28/16 at 16:38; Stop 12/28/16 at 16:39; Status DC Midazolam HCl (Versed Inj) 4 mg STK-MED ONCE .ROUTE Last administered on 16:38; Start 12/28/16 at 16:38; Stop 12/28/16 at 16:39; Status DC Sugammadex Sodium (Bridion Inj) 400 mg STK-MED ONCE IV PUSH ; Start 12/28/16 at 17:30; Stop 12/28/16 at 17:31; Status DC Albuterol Sulfate (Albuterol Neb) 2.5 mg UNSCH X1 PRN NEB SHORTNESS OF BREATH; Start 12/28/16 at 18:15; Stop 12/29/16 at 18:14; Status DC Albuterol Sulfate (*ALBUTEROL NEB PERIprocedure ONLY) 2.5 mg STK-MED ONCE NEB Last administered on 12/28/16 18:20; Start 12/28/16 at 18:20; Stop 12/28/16 at 18:21; Status DC Fentanyl Citrate (fentaNYL INJ) 100 mcg STK-MED ONCE .ROUTE ; Start 12/28/16 at 18:27; Stop 12/28/16 at 18:28; Status DC Miscellaneous Information ALL NURSING DEPARTME... UNSCH PRN .XX SEE LABEL COMMENTS; Start 12/28/16 at 18:45; Stop 12/29/16 at 18:44; Status DC Lorazepam (Ativan Inj) 2 mg STK-MED ONCE .ROUTE ; Start 12/28/16 at 18:35; Stop 12/28/16 at 18:36; Status DC Cefepime HCl 2000 mg/Sodium Chloride 100 ml @ 200 mls/hr Q12H IV Last administered on 12/29/16 09:08; Start 12/28/16 at 21:00; Stop 12/29/16 at 22:34 ; Status DC Fluconazole/ Sodium Chloride 200 ml @ 100 mls/hr Q24H IV Last administered on 01/04/17 21:49; Start 12/28/16 at 22:00; Stop 01/05/17 at 17:06; Status DC Azithromycin 500 mg/Sodium Chloride 250 ml @ 250 mls/hr Q24H IV Last administered on 01/03/17 21:17; Start 12/28/16 at 20:00; Stop 01/04/17 at 14:48 ; Status DC Fentanyl Citrate (fentaNYL INJ) 100 mcg STK-MED ONCE .ROUTE ; Start 12/28/16 at 19:47; Stop 12/28/16 at 19:48; Status DC Vancomycin HCl 2000 mg/Sodium Chloride 520 ml @ 260 mls/hr Q12H IV Last administered on 12/30/16 16:14; Start 12/29/16 at 14:00; Stop 12/30/16 at 20:00 ; Status DC Miscellaneous Information SPECIFIC LAB TO BE DRAWN:VANCOMYCIN TROUGH DATE TO... ONCE ONCE .XX Last administered on 12/30/16 02:00; Start 12/30/16 at 01:45; Stop 12/30/16 at 01:46; Status DC Methylprednisolone Sodium Succinate (SoluMEDROL INJ) 40 mg ONCE ONCE IV PUSH Last administered on 12/29/16 22:08; Start 12/29/16 at 21:15; Stop 12/29/16 at 21:16; Status DC Methylprednisolone Sodium Succinate (SoluMEDROL INJ) 125 mg NOW ONCE IV ; Start 12/29/16 at 21:30; Stop 12/29/16 at 21:30; Status DC Allopurinol (Zyloprim) 200 mg BID PO Last administered on 01/05/17 21:47; Start 12/29/16 at 22:00; Stop 01/05/17 at 23:59; Status DC Cefepime HCl 2000 mg/Sodium Chloride 100 ml @ 200 mls/hr Q12H IV Last administered on 01/04/17 11:09; Start 12/29/16 at 23:00; Stop 01/04/17 at 14:48 ; Status DC Sodium Chloride (NS Flush) 5 ml DAILY IV FLUSH ; Start 12/30/16 at 09:00 Heparin Sodium (Porcine) (Heparin Central Flush) 500 units DAILY IV FLUSH ; Start 12/30/16 at 09:00 Sodium Chloride (NS Flush) 5 ml UNSCH PRN IV FLUSH SEE PROTOCOL TABLE; Start at 06:30 Heparin Sodium (Porcine) (Heparin Central Flush) 500 units UNSCH PRN IV FLUSH SEE PROTOCOL TABLE Last administered on 12/31/16 15:45; Start 12/30/16 at 06:30 Acetaminophen (Tylenol) 650 mg ONCE ONCE PO Last administered on 12/30/16 10: 38; Start 12/30/16 at 08:30; Stop 12/30/16 at 08:31; Status DC Diphenhydramine HCl (Benadryl) 25 mg ONCE ONCE PO Last administered on 10:37; Start 12/30/16 at 08:30; Stop 12/30/16 at 08:31; Status DC Methylprednisolone Sodium Succinate (SoluMEDROL INJ) 40 mg ONCE ONCE IV PUSH Last administered on 12/30/16 10:37; Start 12/30/16 at 10:00; Stop 12/30/16 at 10:04; Status DC Cefazolin Sodium/ Dextrose 50 ml @ 100 mls/hr FASTENER TECHNOLOGIST IV ; Start 12/30/16 at 10:30; Stop 01/03/17 at 10:29; Status DC Methylprednisolone Sodium Succinate (SoluMEDROL INJ) 40 mg ONCE IM ; Start 12/31 at 07:00; Status UNV Granisetron HCl 1 mg/Dexamethasone Sodium Phosphate 20 mg/Sodium Chloride 56 ml @ 336 mls/hr Q24H IV Last administered on 01/06/17 02:42; Start 12/31/16 at 17:30; Stop 01/06/17 at 17:39 Midazolam HCl (Versed Inj) 4 mg STK-MED ONCE .ROUTE Last administered on 14:40; Start 12/31/16 at 14:40; Stop 12/31/16 at 14:41; Status DC Fentanyl Citrate (fentaNYL INJ) 250 mcg STK-MED ONCE .ROUTE Last administered on 12/31/16 14:40; Start 12/31/16 at 14:40; Stop 12/31/16 at 14:41; Status DC Cytarabine 200 mg/ Sodium Chloride 500 ml @ 20.833 mls/ hr Q24H IV Last administered on 01/06/17 04:25; Start 12/31/16 at 18:30; Stop 01/07/17 at 18:29 Daunorubicin HCl 180 mg/Sodium Chloride 136 ml @ 272 mls/hr Q24H IV Last administered on 01/03/17 01:51; Start 12/31/16 at 18:00; Stop 01/02/17 at 18:29 ; Status DC Lidocaine/ Epinephrine (Xylocaine-Epi Mpf 2%-1:200,000 Inj) 20 ml STK-MED ONCE .ROUTE Last administered on 12/31/16 15:19; Start 12/31/16 at 15:08; Stop at 15:09; Status DC Heparin Sodium (Porcine) (Heparin Central Flush) 500 units UNSCH IV FLUSH ; Start 12/31/16 at 15:45 Sodium Chloride (NS Flush) 5 ml UNSCH PRN IVF SEE PROTOCOL; Start 12/31/16 at 15:45 Heparin Sodium (Porcine) (Heparin Central Flush) 250 units UNSCH PRN IV FLUSH SEE PROTOCOL; Start 12/31/16 at 15:45 Methylprednisolone Sodium Succinate (SoluMEDROL INJ) 40 mg ONCE ONCE IV Last administered on 12/31/16 21:09; Start 12/31/16 at 17:00; Stop 12/31/16 at 17:01 ; Status DC Sodium Chloride 1,000 ml @ 42 mls/hr [id number] IV Last administered on 10:56; Start 01/02/17 at 12:45 Promethazine HCl (Phenergan) 25 mg Q4H PRN PO nausea or vomitting Last administered on 01/06/17 07:50; Start 01/04/17 at 10:15 Levofloxacin (Levaquin) 750 mg DAILY@1100 PO Last administered on 01/05/17 10: 54; Start 01/04/17 at 16:00 Calcium Chloride 1 gm/Dextrose 110 ml @ 110 mls/hr ONCE ONCE IV Last administered on 01/04/17 23:43; Start 01/04/17 at 23:00; Stop 01/04/17 at 23:59 ; Status DC Dicyclomine HCl (Bentyl) 20 mg TID PO Last administered on 01/06/17 07:51; Start 01/05/17 at 10:00 Sodium Chloride 500 ml @ 250 mls/hr Q2H ONCE IV Last administered on 14:07; Start 01/05/17 at 13:45; Stop 01/05/17 at 15:44; Status DC Ondansetron HCl (Zofran Inj) 4 mg Q8HR IV PUSH ; Start 01/06/17 at 06:00; Stop 01/08/17 at 06:00 Allopurinol (Zyloprim) 200 mg DAILY PO Last administered on 01/06/17 07:51; Start 01/06/17 at 09:00 Calcium Chloride 1 gm/Sodium Chloride 110 ml @ 110 mls/hr ONCE ONCE IV Last administered on 01/06/17 09:35; Start 01/06/17 at 08:30; Stop 01/06/17 at 09:29 ; Status DC Hyoscyamine Sulfate (Levsin) 0.25 mg Q4H PRN PO CRAMPS; Start 01/06/17 at 09:30 A/P Problem List: (1) SIRS (systemic inflammatory response syndrome) ICD Code: R65.10 - Systemic inflammatory response syndrome (SIRS) of non- infectious origin without acute organ dysfunction Status: Acute (2) GABRIELA (acute kidney injury) ICD Code: N17.9 - Acute kidney failure, unspecified Status: Acute (3) Thrombocytopenia ICD Code: D69.6 - Thrombocytopenia, unspecified Status: Acute (4) Lymphocytosis ICD Code: D72.820 - Lymphocytosis (symptomatic) Status: Acute (5) Anemia ICD Code: D64.9 - Anemia, unspecified Status: Acute Assessment and Plan Neutropenic fever of likely underlying pneumonia due to underlying hypoxia and CT scan findings - Blood culture no growth to date, CSF cultures no growth to date, s/p vancomycin and cefepime, additionally on azithromycin and fluconazole per infectious disease. Patient was put on oral Levaquin on 01/04. Social for cultures are negative. Per oncologist if cultures continue negative they want to discontinue antibiotic. acute respiratory failure with hypoxia likely due to underlying pneumonia resolved. -improving on antibiotics; continue oxygen support and wean as tolerated. 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 Nausea -Most likely secondary to chemotherapy. Continue with Zofran when necessary and Phenergan Continue to monitor clinically. Abdominal spasm -Not working with current regimen. Oncologist will try Levsin and if that does not work will do imaging. Pancytopenia - Hematology proceeding with induction therapy, secondary to #3. GABRIELA: Resolved DVT prophylaxis pharmaceutical anticoagulation contraindicated due to pancytopenia. Bai Small MD Jan 06, 2017 10:08
[2017-01-06] MEDS: LEVOFLOXACIN 750 MG TAB PO SCH (11:00)
--- NOTE | 2017-01-06 12:34 | HHI.PR ---
Addendum to Inpatient Note Additional Information coccidio serolgies are negative. Riaz dc Fluconazole Alana Daley MD Jan 06, 2017 12:34
[2017-01-06] MEDS ORDERED: MORPHINE SULFATE 4 MG/ML INJ IV ONE (13:15)
--- NOTE | 2017-01-06 13:31 | PD.ONC.PN ---
Subjective Subjective Remarks Afebrile Worsening abdominal pain Pt reports this as "hard to describe, but cramping like" Not associated with bowel movements Points to epigastric area when prompted Objective Data Date Time Temp Pulse Resp B/P (MAP) Pulse Ox O2 Delivery O2 Flow Rate FiO2 01/06/17 12:59 80 123/58 (79) 01/06/17 10:58 Room Air 01/06/17 07:43 97.7 68 16 115/54 (74) 97 01/06/17 04:14 78 01/06/17 04:00 97.9 91 20 122/58 (79) 98 01/06/17 00:15 90 01/06/17 00:00 96.9 81 18 117/58 (77) 98 01/05/17 20:05 91 01/05/17 20:00 97.3 89 18 101/46 (64) 99 01/05/17 16:05 81 01/05/17 15:13 97.7 87 16 110/55 (73) 100 01/06/17 01/06/17 01/06/17 07:00 15:00 23:00 Intake Total 480 ml 111.0 ml Output Total 700 ml Balance 480 ml -589.0 ml Result Diagram: 01/06/17 0440 01/06/17 0440 Laboratory Results Laboratory Tests Test 01/06/17 04:40 White Blood Count 0.3 TH/MM3 Red Blood Count 2.37 MIL/MM3 Hemoglobin 7.8 GM/DL Hematocrit 22.2 % Mean Corpuscular Volume 93.4 FL Mean Corpuscular Hemoglobin 32.7 PG Mean Corpuscular Hemoglobin Concent 35.0 % Red Cell Distribution Width 16.9 % Platelet Count 22 TH/MM3 Mean Platelet Volume 7.9 FL CBC Comment AUTO DIFF Differential Total Cells Counted 25 Neutrophils % (Manual) 12 % Lymphocytes % 84 % Neutrophils # (Manual) 0.0 TH/MM3 Promyelocytes 4 % Differential Comment FINAL DIFF MANUAL Platelet Estimate LOW Platelet Morphology Comment NORMAL Blood Urea Nitrogen 23 MG/DL Creatinine 0.66 MG/DL Random Glucose 140 MG/DL Total Protein 6.0 GM/DL Albumin 2.5 GM/DL Calcium Level 7.1 MG/DL Phosphorus Level 3.4 MG/DL Magnesium Level 2.6 MG/DL Uric Acid 2.4 MG/DL Alkaline Phosphatase 31 U/L Aspartate Amino Transf (AST/SGOT) 8 U/L Alanine Aminotransferase (ALT/SGPT) 53 U/L Total Bilirubin 0.7 MG/DL Sodium Level 137 MEQ/L Potassium Level 4.4 MEQ/L Chloride Level 102 MEQ/L Carbon Dioxide Level 26.6 MEQ/L Anion Gap 8 MEQ/L Estimat Glomerular Filtration Rate 148 ML/MIN Protein Corrected Calcium 7.7 MG/DL Administered Medications Medications (Trade) Dose Ordered Sig/Emma Route PRN Reason Start Time Stop Time Status Last Admin Dose Admin Sodium Chloride (NS Flush) 2 ml UNSCH PRN IV FLUSH FLUSH AFTER USING IV ACCESS 12/25/16 23:00 12/30/16 04:59 Sodium Chloride (NS Flush) 2 ml BID IV FLUSH 12/26/16 09:00 01/05/17 09:36 Ondansetron HCl (Zofran Inj) 4 mg Q6H PRN IVP NAUSEA OR VOMITING 12/25/16 23:00 01/05/17 15:10 Acetaminophen (Tylenol) 650 mg Q6H PRN PO FEVER>100.4 12/25/16 23:00 12/29/16 22:30 Morphine Sulfate (Morphine Inj) 2 mg Q3H PRN IV Pain 6-10 12/25/16 23:00 01/06/17 11:20 Senna/Docusate Sodium (Rika-Colace) 1 tab BID PO 12/26/16 09:00 01/04/17 21:49 Benzonatate (Tessalon) 100 mg Q4H PRN PO COUGH 12/26/16 05:15 12/26/16 15:12 Promethazine HCl/ Codeine (Phenergan-Codeine Liq) 5 ml Q4H PRN PO COUGH 12/26/16 20:00 12/31/16 17:09 Diphenhydramine HCl (Benadryl) 25 mg Q4H PRN PO SEE LABEL COMMENTS 12/27/16 04:15 12/28/16 00:11 Acetaminophen (Tylenol) 650 mg Q4H PRN PO SEE LABEL COMMENTS 12/27/16 04:15 12/28/16 00:11 Mupirocin (Bactroban 2% Oint) 1 applic TID TOPICAL 12/27/16 14:15 01/06/17 12:58 Oxycodone HCl (Roxicodone) 5 mg Q6H PRN PO PAIN 1-10 12/27/16 14:00 12/28/16 21:56 Pantoprazole Sodium (Protonix) 20 mg DAILY PO 12/29/16 09:00 01/06/17 07:51 Heparin Sodium (Porcine) (Heparin Central Flush) 500 units UNSCH PRN IV FLUSH SEE PROTOCOL TABLE 12/30/16 06:30 12/31/16 15:45 Granisetron HCl 1 mg/Dexamethasone Sodium Phosphate 20 mg/Sodium Chloride 56 ml @ 336 mls/hr Q24H IV 12/31/16 17:30 01/06/17 17:39 01/06/17 02:42 Cytarabine 200 mg/ Sodium Chloride 500 ml @ 20.833 mls/ hr Q24H IV 12/31/16 18:30 01/07/17 18:29 01/06/17 04:25 Sodium Chloride 1,000 ml @ 42 mls/hr [id number] IV 01/02/17 12:45 01/05/17 10:56 Promethazine HCl (Phenergan) 25 mg Q4H PRN PO nausea or vomitting 01/04/17 10:15 01/06/17 07:50 Dicyclomine HCl (Bentyl) 20 mg TID PO 01/05/17 10:00 01/06/17 12:56 Ondansetron HCl (Zofran Inj) 4 mg Q8HR IV PUSH 01/06/17 06:00 01/08/17 06:00 01/06/17 12:56 Allopurinol (Zyloprim) 200 mg DAILY PO 01/06/17 09:00 01/06/17 07:51 Hyoscyamine Sulfate (Levsin) 0.25 mg Q4H PRN PO CRAMPS 01/06/17 09:30 01/06/17 10:06 Objective Remarks GENERAL: Obese younger male resting in bed asleep on approach. Awaken easily to verbal stimuli. SKIN: Warm and dry. Infusaport to R chest. HEAD: Normocephalic. EYES: No injection or drainage. NECK: Supple, trachea midline. CARDIOVASCULAR: Regular rate and rhythm RESPIRATORY: Clear anteriorly. On room air. O2 sats at bedside showed 97%. GASTROINTESTINAL: Abdomen obese. Mildly tender to palpation of epigastric area. EXTREMITIES: No cyanosis. No edema. NEUROLOGICAL: No obvious focal deficit. Awake, alert, and oriented x3. 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 - Acute myeloblastic leukemia, not having achieved remission Plan: -- Preliminary BMB showed 70% blasts in bone marrow -- Cytogenetics (FLT and KIT) pending -- MUGA scan shows normal ejection fraction with no wall motion abnormalities 12/31 Day 1: Daunorubicin and Cytarabine 01/01 Day 2: Daunorubicin and Cytarabine 01/02 Day 3: Daunorubicin and Cytarabine 01/03 Day 4: Cytarabine 01/04 Day 5: Cytarabine 01/05 Day 6: Cytarabine 01/06 Day 7: Cytarabine (Per RN he will finish early am on 01/08 after few delays with chemo over the week ) (2) Neutropenia ICD Codes: D70.9 - Neutropenia, unspecified Status: Acute Plan: -- ID following -- All Abx stopped; monitor for fevers. -- BC on 12/25 = no growth. -- Bronchoscopy on 12/28= no growth. -- BC on 12/29= no growth. (3) Abdominal pain ICD Codes: R10.9 - Unspecified abdominal pain Plan: -- Epigastric area pain -- Amylase, lipase ordered -- CT abdomen/ pelvis ordered to r/o acute process. Assessment 26 y/o male with no major past medical history who was brought in for headache, confusion and cough. Plan 1. Pt with increasing discomfort to epigastric area. Pain worse despite adding Bentyl, Levsin. Will order amylase, lipase as well as a CT abdomen/pelvis to evaluate source of pain. 2. Last bag of cytarabine to be hung late tonight/early am. 3. Pt remains afebrile. All BC negative. Levaquin stopped. Will continue to monitor for fevers. 4. 1gm calcium chloride to be replaced today. 5. Transfuse to keep platelets greater than 10k, PRBC greater than 10g/dl. Attending Statement The exam, history, and the medical decision-making described in the above note were completed with the assistance of the mid-level provider. I reviewed and agree with the findings presented. I attest that I had a [id number] encounter with the patient on the same day, and personally performed and documented my assessment and findings in the medical record. 1. 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 Febrile Neutropenia -- Remains afebrile - Levaquin stopped/Fluconazole D/C'd - Repeat blood cultures X 2 12/29- no growth - Blood cultures with no growth 12/25 2. Headache/Nausea - Symptoms resolved - Brain MRI negative 3 Acute Respiratory distress--Resolved - s/p broch--negative results thus far - Possibility of leukemic infiltrates--can be seen in AML M4 - Nebs prn 4. FEN - replace electrolytes - Calcium, Mag and Phosp daily - Calcium replaced today 5. Thrombocytopenia - no evidence of DIC - Check Fibronogen every other day - Transfuse to keep platelets > 10 - Will need irradiated blood products 6. Anemia - transfuse to keep Hb > 7 - will need irradiated blood products 7. Tumor Lysis Prophylaxis - Allopurinol 200mg daily - Check daily Phosp/Uric acid 8. Nausea--persistent - SCHEDULED ZOFRAN FOR NOW started 01/05 -phenergan prn 9. Abdominal Spasm - trial of dicyclomine and levsin - no diarrhea or constipation - continues to have abdominal pain - CT abdomen and pelvis obtained -shows small splenic infarcts. does not explain the disproportionate amount of pain. pain appears to be more crampy in nature - Start IV morphine and oxycodone 5mg po prn - If pain persists will consider CT angiogram to asses for any ischemia vs HIDA scan to asses for biliary etiology. CT abdomen does not show any gall bladder stones overnight events reviewed jeanette rn Problem Qualifiers (1) Neutropenia: Robina Cui Jan 06, 2017 13:31 Joey Santoyo MD Jan 06, 2017 22:15
[2017-01-06 14:01] LABS: AMYLASE 23 U/L (25-115)
[2017-01-06] MEDS ORDERED: IOHEXOL 350 MG/ML 10 ML VIAL (for RAD DIAG) IVCONTRAST ONE (15:27)
--- NOTE | 2017-01-06 15:44 | RADRPT ---
EXAM DATE/TIME: 01/06/2017 15:12 [facility] COMPARISON: CT ABDOMEN & PELVIS W CONTRAST, December 27, 2016, 22:47. INDICATIONS : Abdominal pain. IV CONTRAST: 81 cc Omnipaque 350 (iohexol) IV ORAL CONTRAST: No oral contrast ingested. RADIATION DOSE: 33.97 CTDIvol (mGy) ; Patient body habitus MEDICAL HISTORY : Leukemia. SURGICAL HISTORY : None. ENCOUNTER: Initial ACUITY: 1 day PAIN SCALE: 4/10 LOCATION: Bilateral lower quadrant TECHNIQUE: Volumetric scanning of the abdomen and pelvis was performed. Using automated exposure control and ad justment of the mA and/or kV according to patient size, radiation dose was kept as low as reasonably achievable to obtain optimal diagnostic quality images. DICOM format image data is available electro nically for review and comparison. FINDINGS: LOWER LUNGS: Significant improvement when compared to / LIVER: Homogeneous density without lesion. There is no dilation of the biliary tree. No calcified gallston es. SPLEEN: Focal defects remain in the spleen suspicious for an embolic process. PANCREAS: Within normal limits. KIDNEYS: There is no evidence of pyelonephritis or embolic disease. ADRENAL GLANDS: Within normal limits. VASCULAR: There is no aortic aneurysm. BOWEL/MESENTERY: The stomach, small bowel, and colon demonstrate no acute abnormality. There is no free intraperitone al air or fluid. ABDOMINAL WALL: Within normal limits. RETROPERITONEUM: There is no lymphadenopathy. BLADDER: No wall thickening or mass. REPRODUCTIVE: Within normal limits. INGUINAL: There is no lymphadenopathy or hernia. MUSCULOSKELETAL: Within normal limits for patient age. CONCLUSION: 1. Significant improvement in the lungs. 2. 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 Richy Bonner MD FACR on January 06, 2017 at 15:36 Board Certified Radiologist. This report was verified electronically.
[2017-01-06] MEDS: SODIUM CHLOR 0.9% 1000 ML INJ 1,000 ML IV SCH (17:34)
[2017-01-06] MEDS ORDERED: HYDROmorphone HCL PF 1 MG/ML VIAL IV ONE (19:00)
[2017-01-06] MEDS: HYDROmorphone HCL PF 1 MG/ML VIAL IV PRN (23:23)
[2017-01-07] VITALS (16 sets, daily range): BP systolic 90–131; BP diastolic 41–61; PULSE 66–100; RESP 18–21; TEMP 96.1–98.3; O2SAT 96–100
[2017-01-07 00:18] LABS: ALT (GPT) 43 U/L (12-78); ANION GAP 6 MEQ/L (5-15); AST (GOT) 4 U/L (15-37); BICARBONATE 28.7 MEQ/L (21.0-32.0); BLOOD UREA NITROGEN 19 MG/DL (7-18); CHLORIDE 101 MEQ/L (98-107); GLOMERULAR FILTRATION RATE 169 ML/MIN (>89); POTASSIUM 4.4 MEQ/L (3.5-5.1); SODIUM (NA) 136 MEQ/L (136-145)
[2017-01-07 00:20] LABS: ALKALINE PHOSPHATASE 27 U/L (45-117); TOTAL BILIRUBIN ADULT 1.3 MG/DL (0.2-1.0)
--- NOTE | 2017-01-07 01:09 | HHI.PR ---
Addendum to Inpatient Note Addendum Reason: Additional Documentation Additional Information was called by patient's nurse because pt has increasing abdominal pain. Chart reviewed. Patient had abdomen and pelvis CT with IV contrast done which shows progressive splenic infarct. Patient is examined at the bedside. He is in quite a bit of pain but reported that it was much more controlled now after receiving pain medications ordered by his oncologist lyndsay. He points to mid epigastrium, and mid abdomen as the center of his pain. Initially, I wanted to obtain CTA of the abdomen to further evaluate splenic artery and extent of infarct. Question was whether this is a case that patient needs surgical intervention or IR intervention with splenic artery embolization. However I realized that patient recently received contrast studies within 24 hours. Therefore I had discussed with radiologist communications instructor Dr. Fiore over the phone. And reviewed films from 3:[address] abdomen and pelvis with IV contrast. Radiologist assured me that patient's splenic infarcts are small infarcts and that the reason why he actually is now having increasing pain is because he has a new infarct at upper central part of his spleen albeit small, as compared to December 27, 2016 imaging studies. Therefore I have canceled the CTA. Would still go ahead and obtain the ultrasound of the abdomen to rule out symptomatic cholelithiasis/choledocholithiasis. Sheila Ford MD Jan 07, 2017 01:09
--- NOTE | 2017-01-07 01:58 | RADRPT ---
EXAM DATE/TIME: 01/07/2017 01:11 [facility] COMPARISON: No previous studies available for comparison. INDICATIONS : Severe abdomen pain. MEDICAL HISTORY : Lymphocytosis. Neutropenia. Migraine. SURGICAL HISTORY : [place] teeth removed. ENCOUNTER: Initial ACUITY: 1 day PAIN SCORE: 5/10 LOCATION: Abdomen. MEASUREMENTS: LIVER: 22.6 cm length COMMON DUCT: 5 mm RIGHT KIDNEY: 12.3 x 5.5 x 5.4 cm LEFT KIDNEY: 12.2 x 6.1 x 6.3 cm SPLEEN: 14.1 cm length AORTA: 1.7cm maximal FINDINGS: The liver is enlarged to 22.6 cm and the spleen mildly prominent in size at 14 cm. Pancreas not well- visualized. No gallstones or biliary ductal dilatation. No significant gallbladder wall thickening. N o free fluid. Aorta normal caliber. Kidneys unremarkable. CONCLUSION: 1. No acute findings. Liver enlarged. Spleen mildly prominent at 14 cm. Leander Fiore MD on January 07, 2017 at 1:53 Board Certified Radiologist. This report was verified electronically.
[2017-01-07] MEDS: HYDROmorphone HCL PF 1 MG/ML VIAL IV PRN ×4 (04:14→22:39)
[2017-01-07] MEDS: GRANISETRON INJ 1 MG, DEXAMETHASONE INJ 20 MG in SODIUM CHLORIDE 0.9% INJ 50 ML IV SCH (04:14)
[2017-01-07 04:54] LABS: MEAN CELL VOLUME 93.4 FL (80.0-100.0); MEAN CORPUSCULAR HEMOGLOBIN 31.9 PG (27.0-34.0); MEAN CORPUSCULAR HGB CONC 34.2 % (32.0-36.0); RED BLOOD COUNT 1.91 MIL/MM3 (4.50-5.90); WHITE BLOOD COUNT 0.5 TH/MM3 (4.0-11.0)
[2017-01-07 04:56] LABS: HEMO FLAGS AUTO DIFF
[2017-01-07 05:00] LABS: HEMATOCRIT 17.8 % (39.0-51.0); PLATELET COUNT 14 TH/MM3 (150-450)
[2017-01-07 05:05] LABS: ANION GAP 7 MEQ/L (5-15); AST (GOT) 6 U/L (15-37); BICARBONATE 27.9 MEQ/L (21.0-32.0); BLOOD UREA NITROGEN 19 MG/DL (7-18); CHLORIDE 100 MEQ/L (98-107); GLOMERULAR FILTRATION RATE 214 ML/MIN (>89); MAGNESIUM 2.3 MG/DL (1.5-2.5); POTASSIUM 4.2 MEQ/L (3.5-5.1); SODIUM (NA) 135 MEQ/L (136-145); URIC ACID 2.3 MG/DL (2.6-7.2)
[2017-01-07 05:07] LABS: ALT (GPT) 40 U/L (12-78)
[2017-01-07 05:09] LABS: ALKALINE PHOSPHATASE 27 U/L (45-117); TOTAL BILIRUBIN ADULT 1.2 MG/DL (0.2-1.0)
[2017-01-07] MEDS: ONDANSETRON HCL 4 MG/2 ML VIAL IV PUSH SCH ×3 (06:00→22:39)
[2017-01-07] MEDS: CYTARABINE IV SCH (06:27)
[2017-01-07] MEDS: SODIUM CHLORID 0.9% IV SCH (06:27)
[2017-01-07 08:06] LABS: PLATELET ESTIMATE SMEAR RARE (NORMAL); PLATELET MORPHOLOGY NORMAL (NORMAL); POLYS (SEG NEUTROPHILS) 8 % (16-70); SCAN/DIFF FINAL DIFF MANUAL; WBC DIFF SAMPLE 25
[2017-01-07] MEDS: DICYCLOMINE HCL 20 MG TAB PO SCH ×3 (08:42→18:05)
[2017-01-07] MEDS: MUPIROCIN 2% OINT 22 GM TUBE TOPICAL SCH ×3 (08:42→18:00)
[2017-01-07] MEDS: ALLOPURINOL 100 MG TAB PO SCH (08:42)
[2017-01-07] MEDS: PANTOPRAZOLE SOD 20 MG DELAYED RELEASE TAB PO SCH (08:42)
[2017-01-07] MEDS: DOCUSATE SODIUM 50 MG/SENNA 8.6 MG TAB PO SCH ×2 (08:48→21:00)
[2017-01-07] MEDS: Hickman Catheter Daily NS Lock Flush IV FLUSH SCH (08:56)
[2017-01-07] MEDS: SODIUM CHLORIDE 0.9% FLUSH 10 ML FLUSH IV FLUSH SCH ×2 (08:56→22:48)
--- NOTE | 2017-01-07 09:30 | HHI.PR ---
Subjective Remarks Follow-up for chemotherapy and abdominal pain Patient continues abdominal pain. He stated the IV Dilaudid helped but he became hypotensive. Systolic blood pressure now 80s. Asymptomatic. He denies any stress of breathing, chest pain, palpitation, lightheadedness dizziness. Transfusion already ordered by oncologist. Objective Vitals Vital Signs Date Time Temp Pulse Resp B/P (MAP) Pulse Ox O2 Delivery O2 Flow Rate FiO2 01/07/17 08:00 96.1 72 20 90/41 (57) 96 01/07/17 07:51 66 01/07/17 04:00 96.1 77 18 98/52 (67) 100 01/07/17 00:00 96.5 78 18 99/52 (68) 97 01/06/17 20:04 67 01/06/17 20:00 96.9 86 18 109/53 (71) 98 01/06/17 16:00 97.1 86 18 101/55 (70) 98 01/06/17 12:59 80 123/58 (79) 01/06/17 12:11 75 01/06/17 12:00 97.0 79 18 96 01/06/17 10:58 Room Air I/O 01/06/17 01/06/17 01/06/17 01/07/17 01/07/17 01/07/17 07:00 15:00 23:00 07:00 15:00 23:00 Intake Total 480 ml 111.0 ml 250 ml 100 ml Output Total 1700 ml 1000 ml Balance 480 ml -1589.0 ml 250 ml -900 ml Intake Oral 480 ml 250 ml 100 ml IV Total 111.0 ml Output Urine Total 1700 ml 1000 ml # Voids 4 # Bowel Movements 2 Result Diagram: 01/07/1742901/07/17429 Objective Remarks GENERAL: In no acute distress but looks weak. SKIN: Warm and dry. Port in place. No erythema or discharge noted around the port site. CARDIOVASCULAR: Regular rate and rhythm without murmurs, gallops, or rubs. RESPIRATORY: Breath sounds equal bilaterally. No accessory muscle use. GASTROINTESTINAL: Abdomen soft,diffuse TTP to deep palpation, nondistended. Procedures 12/31 [id number] placement Medications and IVs Current Medications Acetaminophen (Tylenol) 650 mg ONCE ONCE PO Last administered on 12/25/16t 20: 28; Start 12/25/16 at 19:45; Stop 12/25/16 at 19:46; Status DC Sodium Chloride 1,000 ml @ 1,000 mls/hr Q1H ONCE IV Last administered on 20:27; Start 12/25/16 at 19:41; Stop 12/25/16 at 20:40; Status DC Sodium Chloride 1,000 ml @ 1,000 mls/hr Q1H ONCE IV Last administered on 20:41; Start 12/25/16 at 19:41; Stop 12/25/16 at 20:40; Status DC Sodium Chloride 1,000 ml @ 1,000 mls/hr Q1H ONCE IV Last administered on 21:09; Start 12/25/16 at 19:41; Stop 12/25/16 at 20:40; Status DC Sodium Chloride 900 ml @ 1,000 mls/hr Q54M ONCE IV Last administered on 21:46; Start 12/25/16 at 19:41; Stop 12/25/16 at 20:34; Status DC Prochlorperazine Edisylate (Compazine Inj) 10 mg ONCE ONCE IV PUSH Last administered on 12/25/16 20:28; Start 12/25/16 at 19:45; Stop 12/25/16 at 19:46 ; Status DC Diphenhydramine HCl (Benadryl Inj) 25 mg ONCE ONCE IV PUSH Last administered on 12/25/16 20:27; Start 12/25/16 at 19:45; Stop 12/25/16 at 19:46; Status DC Cefepime HCl 2000 mg/Sodium Chloride 100 ml @ 200 mls/hr ONCE STAT IV Last administered on 12/25/16 21:46; Start 12/25/16 at 21:13; Stop 12/25/16 at 21:42 ; Status DC Pharmacy Profile Note 0 ml @ 0 mls/hr UNSCH OTHER ; Start 12/25/16 at 23:00; Stop 12/30/16 at 20:00; Status DC Cefepime HCl 1000 mg/Sodium Chloride 100 ml @ 200 mls/hr Q12H IV Last administered on 12/28/16 08:18; Start 12/26/16 at 09:00; Stop 12/28/16 at 19:05 ; Status DC Sodium Chloride 1,000 ml @ 100 mls/hr Q10H IV Last administered on 12/27/16 17:17; Start 12/25/16 at 23:00; Stop 12/28/16 at 09:00; Status DC Sodium Chloride (NS Flush) 2 ml UNSCH PRN IV FLUSH FLUSH AFTER USING IV ACCESS Last administered on 12/30/16 04:59; Start 12/25/16 at 23:00 Sodium Chloride (NS Flush) 2 ml BID IV FLUSH Last administered on 01/06/17 22: 12; Start 12/26/16 at 09:00 Ondansetron HCl (Zofran Inj) 4 mg Q6H PRN IVP NAUSEA OR VOMITING Last administered on 01/05/17 15:10; Start 12/25/16 at 23:00; Stop 01/06/17 at 15:54 ; Status DC Acetaminophen (Tylenol) 650 mg Q6H PRN PO FEVER>100.4 Last administered on 12/29 22:30; Start 12/25/16 at 23:00 Acetaminophen/ Hydrocodone Bitart ([place] 5-325 Mg) 1 tab Q4H PRN PO PAIN SCALE 3 TO 5 Last administered on 12/27/16 12:05; Start 12/25/16 at 23:00; Stop 12/27/16 at 13:56; Status DC Morphine Sulfate (Morphine Inj) 2 mg Q3H PRN IV Pain 6-10 Last administered on 01/06/17 22:09; Start 12/25/16 at 23:00; Stop 01/06/17 at 23:13; Status DC Senna/Docusate Sodium (Rika-Colace) 1 tab BID PO Last administered on 21:49; Start 12/26/16 at 09:00 Magnesium Hydroxide (Milk Of Magnesia Liq) 30 ml Q12H PRN PO MILD - MODERATE CONSTIPATION; Start 12/25/16 at 23:00 Sennosides (Senokot) 17.2 mg Q12H PRN PO MODERATE - SEVERE CONSTIPATION; Start 12/25/16 at 23:00 Bisacodyl (Dulcolax Supp) 10 mg DAILY PRN RECTAL SEVERE CONSITIPATION; Start at 23:00 Lactulose (Lactulose Liq) 30 ml DAILY PRN PO SEVERE CONSITIPATION; Start at 23:00 Vancomycin HCl 2500 mg/Sodium Chloride 525 ml @ 250 mls/hr Q12H IV Last administered on 12/26/16 00:27; Start 12/26/16 at 01:00; Stop 12/26/16 at 04:00 ; Status DC Guaifenesin/ Dextromethorphan (Robitussin Dm 200-20 Mg/10 ml Liq) 10 ml Q4H PRN PO cough Last administered on 12/26/16 18:19; Start 12/26/16 at 01:45; Stop 12/26/16 at 19:43; Status DC Benzonatate (Tessalon) 100 mg Q4H PRN PO COUGH Last administered on 12/26/16 15:12; Start 12/26/16 at 05:15 Vancomycin HCl 2000 mg/Sodium Chloride 520 ml @ 260 mls/hr Q12H IV Last administered on 12/27/16 17:16; Start 12/26/16 at 13:00; Stop 12/27/16 at 18:13 ; Status DC Miscellaneous Information SPECIFIC LAB TO BE JASKARAN... ONCE ONCE .XX Last administered on 12/27/16 17:05; Start 12/27/16 at 12:45; Stop 12/27/16 at 12:46 ; Status DC Sodium Bicarbonate 50 ml @ As Directed STK-MED ONCE .ROUTE Last administered on 12/26/16 16:54; Start 12/26/16 at 16:54; Stop 12/26/16 at 16:55; Status DC Iohexol (Omnipaque 350 Inj) 71 ml STK-MED ONCE IV Last administered on 17:47; Start 12/26/16 at 17:47; Stop 12/26/16 at 17:48; Status DC Albuterol/ Ipratropium (Duoneb Neb) 1 ampule Q6HR WHILE AWAKE NEB NEB Last administered on 12/30/16 09:15; Start 12/26/16 at 20:00; Stop 12/30/16 at 20:00 ; Status DC Guaifenesin/ Codeine Phosphate (Robitussin Ac 200-20 Mg/10 ml Liq) 10 ml Q4H PRN PO codine; Start 12/26/16 at 19:45; Stop 12/29/16 at 11:01; Status DC Promethazine HCl/ Codeine (Phenergan-Codeine Liq) 5 ml Q4H PRN PO COUGH Last administered on 12/31/16 17:09; Start 12/26/16 at 20:00 Sodium Chloride 250 ml @ 15 mls/hr ONCE ONCE IV Last administered on 23:23; Start 12/26/16 at 23:15; Stop 12/27/16 at 15:54; Status DC Acetaminophen (Tylenol) 650 mg Q4H PRN PO SEE LABEL COMMENTS; Start 12/26/16 at 23:15; Stop 12/27/16 at 03:16; Status DC Diphenhydramine HCl (Benadryl) 25 mg Q4H PRN PO SEE LABEL COMMENTS; Start 12/26 at 23:15; Stop 12/27/16 at 03:16; Status DC Calcium Gluconate 1 gm/Dextrose 110 ml @ 110 mls/hr ONCE ONCE IV Last administered on 12/26/16 23:56; Start 12/26/16 at 23:30; Stop 12/27/16 at 00:29 ; Status DC Diphenhydramine HCl (Benadryl) 25 mg Q4H PRN PO SEE LABEL COMMENTS Last administered on 12/28/16 00:11; Start 12/27/16 at 04:15 Acetaminophen (Tylenol) 650 mg Q4H PRN PO SEE LABEL COMMENTS Last administered on 12/28/16 00:11; Start 12/27/16 at 04:15 Mupirocin (Bactroban 2% Oint) 1 applic TID TOPICAL Last administered on 08:42; Start 12/27/16 at 14:15 Dexamethasone (Decadron) 4 mg Q12HR PO ; Start 12/27/16 at 21:00; Stop 12/27/16 at 21:00; Status DC Dexamethasone (Decadron) 4 mg ONCE ONCE PO Last administered on 12/27/16 14: 30; Start 12/27/16 at 14:00; Stop 12/27/16 at 14:01; Status DC Oxycodone HCl (Roxicodone) 5 mg Q6H PRN PO PAIN 1-10 Last administered on 21:56; Start 12/27/16 at 14:00; Stop 01/06/17 at 18:54; Status DC Lisinopril (Prinivil) 10 mg DAILY PO ; Start 12/28/16 at 15:00; Stop 12/28/16 at 15:00; Status DC Clonidine (Catapres) 0.2 mg Q6H PRN PO SBP > 160; Start 12/27/16 at 14:15; Stop 12/27/16 at 14:15; Status DC Diatrizoate Meglum/ Diatrizoate Sod ( Gastroview Liq) 18 ml ONCE ONCE PO Last administered on 12/27/16 17:16; Start 12/27/16 at 16:45; Stop 12/27/16 at 16:46; Status DC Albuterol Sulfate (Albuterol Concentrated Neb) 2.5 mg JAVA TECH NEB ; Start 12/27 at 16:45; Stop 12/31/16 at 16:44; Status DC Lidocaine HCl (Lidocaine Pf 4% Neb) 3 ml JAVA TECH NEB ; Start 12/27/16 at 16:45 ; Stop 12/31/16 at 16:44; Status DC Vancomycin HCl 2000 mg/Sodium Chloride 520 ml @ 260 mls/hr Q12H IV Last administered on 12/29/16 02:15; Start 12/28/16 at 05:00; Stop 12/29/16 at 03:00 ; Status DC Miscellaneous Information SPECIFIC LAB TO BE DRAWN:VANCOMY... ONCE ONCE .XX ; Start 12/29/16 at 04:45; Stop 12/29/16 at 04:46; Status DC Sodium Chloride 250 ml @ 15 mls/hr ONCE ONCE IV ; Start 12/27/16 at 18:30; Stop 12/27/16 at 18:38; Status DC Sodium Chloride 250 ml @ 15 mls/hr ONCE ONCE IV ; Start 12/27/16 at 18:45; Stop 12/28/16 at 11:24; Status DC Gadodiamide (Omniscan Pf Inj) 30 ml STK-MED ONCE IVCONTRAST Last administered on 12/27/16 22:10; Start 12/27/16 at 22:10; Stop 12/27/16 at 22:11; Status DC Iohexol (Omnipaque 350 Inj) 95 ml STK-MED ONCE IVCONTRAST Last administered on 12/27/16 23:00; Start 12/27/16 at 23:00; Stop 12/27/16 at 23:03; Status DC Lactated Ringer's 1,000 ml @ 30 mls/hr Q24H PRN IV SEE LABEL COMMENTS; Start at 06:15; Stop 12/31/16 at 06:14; Status DC Sodium Chloride 500 ml @ 30 mls/hr [id number] PRN IV SEE LABEL COMMENTS; Start at 06:15; Stop 12/31/16 at 06:14; Status DC Povidone Iodine (Betadine 5% Antisepsis Kit) 1 applic JAVA TECH PRN EACH NARE SEE LABEL COMMENTS; Start 12/28/16 at 06:15; Stop 12/31/16 at 06:14; Status DC Chlorhexidine Gluconate (Chlorhexidine 2% Cloth) 3 pack JAVA TECH PRN TOPICAL SEE LABEL COMMENTS; Start 12/28/16 at 06:15; Stop 12/31/16 at 06:14; Status DC Insulin Human Regular (NovoLIN R INJ) See Protocol Table ... JAVA TECH PRN SQ SEE PROTOCOL TABLE; Start 12/28/16 at 06:15; Stop 12/31/16 at 06:14; Status DC Dextrose 1,000 ml @ 84 mls/hr [id number] IV Last administered on 01/01/17 22:03 ; Start 12/28/16 at 09:00; Stop 01/02/17 at 12:34; Status DC Calcium Carbonate (Tums Chew) 500 mg Q6H PRN CHEW DYSPEPSIA OR HEARTBURN; Start 12/28/16 at 14:00 Pantoprazole Sodium (Protonix) 20 mg DAILY PO Last administered on 01/07/17 08 :42; Start 12/29/16 at 09:00 Famotidine (Pepcid Inj) 20 mg ONCE ONCE IV PUSH Last administered on 14:27; Start 12/28/16 at 14:20; Stop 12/28/16 at 14:21; Status DC Lidocaine HCl (Xylocaine 1% Inj) 20 ml STK-MED ONCE .ROUTE Last administered on 12/28/16 14:49; Start 12/28/16 at 14:49; Stop 12/28/16 at 14:50; Status DC Sodium Chloride (Sodium Chloride 0.9% Inj) 40 ml STK-MED ONCE .ROUTE ; Start at 15:54; Stop 12/28/16 at 15:55; Status DC Lidocaine HCl (Xylocaine 2% Inj) 50 ml STK-MED ONCE .ROUTE ; Start 12/28/16 at 15:55; Stop 12/28/16 at 15:56; Status DC Lidocaine HCl (Xylocaine 2% Viscous) 15 ml STK-MED ONCE .ROUTE ; Start 12/28/16 at 15:55; Stop 12/28/16 at 15:56; Status DC Lidocaine HCl (Xylocaine-Mpf 4% Inj) 5 ml STK-MED ONCE .ROUTE ; Start 12/28/16 at 15:55; Stop 12/28/16 at 15:56; Status DC Epinephrine HCl (Adrenalin (1:1000) Inj) 2 mg STK-MED ONCE .ROUTE ; Start at 15:55; Stop 12/28/16 at 15:56; Status DC Fentanyl Citrate (fentaNYL INJ) 250 mcg STK-MED ONCE .ROUTE Last administered on 12/28/16 16:38; Start 12/28/16 at 16:38; Stop 12/28/16 at 16:39; Status DC Midazolam HCl (Versed Inj) 4 mg STK-MED ONCE .ROUTE Last administered on 16:38; Start 12/28/16 at 16:38; Stop 12/28/16 at 16:39; Status DC Sugammadex Sodium (Bridion Inj) 400 mg STK-MED ONCE IV PUSH ; Start 12/28/16 at 17:30; Stop 12/28/16 at 17:31; Status DC Albuterol Sulfate (Albuterol Neb) 2.5 mg UNSCH X1 PRN NEB SHORTNESS OF BREATH; Start 12/28/16 at 18:15; Stop 12/29/16 at 18:14; Status DC Albuterol Sulfate (*ALBUTEROL NEB PERIprocedure ONLY) 2.5 mg STK-MED ONCE NEB Last administered on 8/21/17at 18:20; Start 12/28/16 at 18:20; Stop 12/28/16 at 18:21; Status DC Fentanyl Citrate (fentaNYL INJ) 100 mcg STK-MED ONCE .ROUTE ; Start 12/28/16 at 18:27; Stop 12/28/16 at 18:28; Status DC Miscellaneous Information ALL NURSING DEPARTME... UNSCH PRN .XX SEE LABEL COMMENTS; Start 12/28/16 at 18:45; Stop 12/29/16 at 18:44; Status DC Lorazepam (Ativan Inj) 2 mg STK-MED ONCE .ROUTE ; Start 12/28/16 at 18:35; Stop 12/28/16 at 18:36; Status DC Cefepime HCl 2000 mg/Sodium Chloride 100 ml @ 200 mls/hr Q12H IV Last administered on 12/29/16 09:08; Start 12/28/16 at 21:00; Stop 12/29/16 at 22:34 ; Status DC Fluconazole/ Sodium Chloride 200 ml @ 100 mls/hr Q24H IV Last administered on 01/04/17 21:49; Start 12/28/16 at 22:00; Stop 01/05/17 at 17:06; Status DC Azithromycin 500 mg/Sodium Chloride 250 ml @ 250 mls/hr Q24H IV Last administered on 01/03/17 21:17; Start 12/28/16 at 20:00; Stop 01/04/17 at 14:48 ; Status DC Fentanyl Citrate (fentaNYL INJ) 100 mcg STK-MED ONCE .ROUTE ; Start 12/28/16 at 19:47; Stop 12/28/16 at 19:48; Status DC Vancomycin HCl 2000 mg/Sodium Chloride 520 ml @ 260 mls/hr Q12H IV Last administered on 12/30/16 16:14; Start 12/29/16 at 14:00; Stop 12/30/16 at 20:00 ; Status DC Miscellaneous Information SPECIFIC LAB TO BE DRAWN:VANCOMYCIN TROUGH DATE TO... ONCE ONCE .XX Last administered on 12/30/16 02:00; Start 12/30/16 at 01:45; Stop 12/30/16 at 01:46; Status DC Methylprednisolone Sodium Succinate (SoluMEDROL INJ) 40 mg ONCE ONCE IV PUSH Last administered on 12/29/16 22:08; Start 12/29/16 at 21:15; Stop 12/29/16 at 21:16; Status DC Methylprednisolone Sodium Succinate (SoluMEDROL INJ) 125 mg NOW ONCE IV ; Start 12/29/16 at 21:30; Stop 12/29/16 at 21:30; Status DC Allopurinol (Zyloprim) 200 mg BID PO Last administered on 01/05/17 21:47; Start 12/29/16 at 22:00; Stop 01/05/17 at 23:59; Status DC Cefepime HCl 2000 mg/Sodium Chloride 100 ml @ 200 mls/hr Q12H IV Last administered on 01/04/17 11:09; Start 12/29/16 at 23:00; Stop 01/04/17 at 14:48 ; Status DC Sodium Chloride (NS Flush) 5 ml DAILY IV FLUSH ; Start 12/30/16 at 09:00 Heparin Sodium (Porcine) (Heparin Central Flush) 500 units DAILY IV FLUSH ; Start 12/30/16 at 09:00 Sodium Chloride (NS Flush) 5 ml UNSCH PRN IV FLUSH SEE PROTOCOL TABLE; Start at 06:30 Heparin Sodium (Porcine) (Heparin Central Flush) 500 units UNSCH PRN IV FLUSH SEE PROTOCOL TABLE Last administered on 12/31/16 15:45; Start 12/30/16 at 06:30 Acetaminophen (Tylenol) 650 mg ONCE ONCE PO Last administered on 12/30/16 10: 38; Start 12/30/16 at 08:30; Stop 12/30/16 at 08:31; Status DC Diphenhydramine HCl (Benadryl) 25 mg ONCE ONCE PO Last administered on 10:37; Start 12/30/16 at 08:30; Stop 12/30/16 at 08:31; Status DC Methylprednisolone Sodium Succinate (SoluMEDROL INJ) 40 mg ONCE ONCE IV PUSH Last administered on 12/30/16 10:37; Start 12/30/16 at 10:00; Stop 12/30/16 at 10:04; Status DC Cefazolin Sodium/ Dextrose 50 ml @ 100 mls/hr JAVA TECH IV ; Start 12/30/16 at 10:30; Stop 01/03/17 at 10:29; Status DC Methylprednisolone Sodium Succinate (SoluMEDROL INJ) 40 mg ONCE IM ; Start 12/31 at 07:00; Status UNV Granisetron HCl 1 mg/Dexamethasone Sodium Phosphate 20 mg/Sodium Chloride 56 ml @ 336 mls/hr Q24H IV Last administered on 01/07/17 04:14; Start 12/31/16 at 17:30; Stop 01/06/17 at 17:39; Status DC Midazolam HCl (Versed Inj) 4 mg STK-MED ONCE .ROUTE Last administered on 14:40; Start 12/31/16 at 14:40; Stop 12/31/16 at 14:41; Status DC Fentanyl Citrate (fentaNYL INJ) 250 mcg STK-MED ONCE .ROUTE Last administered on 12/31/16 14:40; Start 12/31/16 at 14:40; Stop 12/31/16 at 14:41; Status DC Cytarabine 200 mg/ Sodium Chloride 500 ml @ 20.833 mls/ hr Q24H IV Last administered on 01/07/17 06:27; Start 12/31/16 at 18:30; Stop 01/07/17 at 18:29 Daunorubicin HCl 180 mg/Sodium Chloride 136 ml @ 272 mls/hr Q24H IV Last administered on 01/03/17 01:51; Start 12/31/16 at 18:00; Stop 01/02/17 at 18:29 ; Status DC Lidocaine/ Epinephrine (Xylocaine-Epi Mpf 2%-1:200,000 Inj) 20 ml STK-MED ONCE .ROUTE Last administered on 12/31/16 15:19; Start 12/31/16 at 15:08; Stop at 15:09; Status DC Heparin Sodium (Porcine) (Heparin Central Flush) 500 units UNSCH IV FLUSH ; Start 12/31/16 at 15:45 Sodium Chloride (NS Flush) 5 ml UNSCH PRN IVF SEE PROTOCOL; Start 12/31/16 at 15:45 Heparin Sodium (Porcine) (Heparin Central Flush) 250 units UNSCH PRN IV FLUSH SEE PROTOCOL; Start 12/31/16 at 15:45 Methylprednisolone Sodium Succinate (SoluMEDROL INJ) 40 mg ONCE ONCE IV Last administered on 12/31/16 21:09; Start 12/31/16 at 17:00; Stop 12/31/16 at 17:01 ; Status DC Sodium Chloride 1,000 ml @ 42 mls/hr [id number] IV Last administered on 17:34; Start 01/02/17 at 12:45 Promethazine HCl (Phenergan) 25 mg Q4H PRN PO nausea or vomitting Last administered on 01/06/17 14:43; Start 01/04/17 at 10:15 Levofloxacin (Levaquin) 750 mg DAILY@1100 PO Last administered on 01/05/17 10: 54; Start 01/04/17 at 16:00; Stop 01/06/17 at 12:33; Status DC Calcium Chloride 1 gm/Dextrose 110 ml @ 110 mls/hr ONCE ONCE IV Last administered on 01/04/17 23:43; Start 01/04/17 at 23:00; Stop 01/04/17 at 23:59 ; Status DC Dicyclomine HCl (Bentyl) 20 mg TID PO Last administered on 01/07/17 08:42; Start 01/05/17 at 10:00 Sodium Chloride 500 ml @ 250 mls/hr Q2H ONCE IV Last administered on 14:07; Start 01/05/17 at 13:45; Stop 01/05/17 at 15:44; Status DC Ondansetron HCl (Zofran Inj) 4 mg Q8HR IV PUSH Last administered on 01/06/17 22:13; Start 01/06/17 at 06:00; Stop 01/08/17 at 06:00 Allopurinol (Zyloprim) 200 mg DAILY PO Last administered on 01/07/17 08:42; Start 01/06/17 at 09:00 Calcium Chloride 1 gm/Sodium Chloride 110 ml @ 110 mls/hr ONCE ONCE IV Last administered on 01/06/17 09:35; Start 01/06/17 at 08:30; Stop 01/06/17 at 09:29 ; Status DC Hyoscyamine Sulfate (Levsin) 0.25 mg Q4H PRN PO CRAMPS Last administered on 10:06; Start 01/06/17 at 09:30 Morphine Sulfate (Morphine Inj) 2 mg NOW ONCE IV Last administered on 13:15; Start 01/06/17 at 13:15; Stop 01/06/17 at 13:16; Status DC Calcium Chloride 1 gm/Sodium Chloride 110 ml @ 110 mls/hr ONCE ONCE IV Last administered on 01/06/17 19:01; Start 01/06/17 at 15:00; Stop 01/06/17 at 15:59 ; Status DC Iohexol (Omnipaque 350 Inj) 81 ml STK-MED ONCE IVCONTRAST Last administered on 01/06/17 15:27; Start 01/06/17 at 15:27; Stop 01/06/17 at 15:28; Status DC Oxycodone HCl (Roxicodone) 5 mg ONCE ONCE PO ; Start 01/06/17 at 19:00; Stop at 19:01; Status Cancel Oxycodone HCl (Roxicodone) 5 mg Q6H PRN PO pain; Start 01/06/17 at 18:15; Stop 01/06/17 at 18:42; Status DC Hydromorphone HCl (Dilaudid Pf Inj) 0.5 mg ONCE ONCE IV Last administered on 19:00; Start 01/06/17 at 19:00; Stop 01/06/17 at 19:01; Status DC Oxycodone HCl (Roxicodone) 5 mg Q4H PRN PO PAIN 1-10; Start 01/06/17 at 19:00 Hydromorphone HCl (Dilaudid Pf Inj) 1 mg Q4H PRN IV PAIN SCALE 1 TO 10 Last administered on 01/07/17 04:14; Start 01/06/17 at 23:15 Sodium Chloride 1,000 ml @ 999 mls/hr BOLUS ONCE IV ; Start 01/07/17 at 10:00 ; Stop 01/07/17 at 11:00 A/P Problem List: (1) SIRS (systemic inflammatory response syndrome) ICD Code: R65.10 - Systemic inflammatory response syndrome (SIRS) of non- infectious origin without acute organ dysfunction Status: Acute (2) GABRIELA (acute kidney injury) ICD Code: N17.9 - Acute kidney failure, unspecified Status: Acute (3) Thrombocytopenia ICD Code: D69.6 - Thrombocytopenia, unspecified Status: Acute (4) Lymphocytosis ICD Code: D72.820 - Lymphocytosis (symptomatic) Status: Acute (5) Anemia ICD Code: D64.9 - Anemia, unspecified Status: Acute Assessment and Plan Neutropenic fever of likely underlying pneumonia due to underlying hypoxia and CT scan findings - Blood culture no growth to date, CSF cultures no growth to date, s/p vancomycin and cefepime, additionally on azithromycin and fluconazole per infectious disease. s/p Levaquin on 01/04-01/06. coccidio serolgies are negative so flucanazole was discontinued on 01/06. Hypotension -Most likely secondary to IV Dilaudid. Will give a fluid bolus. Patient is also currently being transfused. No signs of infection. -Continue to monitor. acute respiratory failure with hypoxia likely due to underlying pneumonia -Resolved with antibiotics. 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 Nausea -Most likely secondary to chemotherapy. Continue with Zofran when necessary and Phenergan Continue to monitor clinically. Acute splenic infarct -Abdominal CT scan the abdomen/pelvis showed acute splenic infarct. Abdominal ultrasound showed enlarged liver with the spleen measuring 14 cm. -Continue with supportive care with pain control. We'll try to avoid IV Dilaudid since patient became hypotensive and try oxycodone. Pancytopenia - Hematology proceeding with induction therapy, secondary to #3. -Hemoglobin 6.1 and platelets 14,000. Transfusion already ordered by taxi dancer. GABRIELA: Resolved DVT prophylaxis pharmaceutical anticoagulation contraindicated due to pancytopenia. Dealt with patient's nurse Jacque. Bia Small MD Jan 07, 2017 09:30
[2017-01-07] MEDS ORDERED: SODIUM CHLOR 0.9% 1000 ML INJ 1,000 ML IV ONE (10:00)
--- NOTE | 2017-01-07 10:10 | PD.ONC.PN ---
Subjective Subjective Remarks Afebrile Pt still with abdominal pain but reports it is improved with pain medications Objective Data Date Time Temp Pulse Resp B/P (MAP) Pulse Ox O2 Delivery O2 Flow Rate FiO2 01/07/17 08:00 96.1 72 20 90/41 (57) 96 01/07/17 07:51 66 01/07/17 04:00 96.1 77 18 98/52 (67) 100 01/07/17 00:00 96.5 78 18 99/52 (68) 97 01/06/17 20:04 67 01/06/17 20:00 96.9 86 18 109/53 (71) 98 01/06/17 16:00 97.1 86 18 101/55 (70) 98 01/06/17 12:59 80 123/58 (79) 01/06/17 12:11 75 01/06/17 12:00 97.0 79 18 96 01/06/17 10:58 Room Air 01/07/17 01/07/17 01/07/17 07:00 15:00 23:00 Intake Total 100 ml Output Total 1000 ml Balance -900 ml Result Diagram: 01/07/17 0430 01/07/17 0430 Laboratory Results Laboratory Tests Test 01/06/17 23:45 01/07/17 04:30 Blood Urea Nitrogen 19 MG/DL 19 MG/DL Creatinine 0.59 MG/DL 0.48 MG/DL Random Glucose 118 MG/DL 96 MG/DL Total Protein 5.9 GM/DL 5.6 GM/DL Albumin 2.5 GM/DL 2.4 GM/DL Calcium Level 7.7 MG/DL 7.8 MG/DL Alkaline Phosphatase 27 U/L 27 U/L Aspartate Amino Transf (AST/SGOT) 4 U/L 6 U/L Alanine Aminotransferase (ALT/SGPT) 43 U/L 40 U/L Total Bilirubin 1.3 MG/DL 1.2 MG/DL Sodium Level 136 MEQ/L 135 MEQ/L Potassium Level 4.4 MEQ/L 4.2 MEQ/L Chloride Level 101 MEQ/L 100 MEQ/L Carbon Dioxide Level 28.7 MEQ/L 27.9 MEQ/L Anion Gap 6 MEQ/L 7 MEQ/L Estimat Glomerular Filtration Rate 169 ML/MIN 214 ML/MIN Lactic Acid Level 1.5 mmol/L White Blood Count 0.5 TH/MM3 Red Blood Count 1.91 MIL/MM3 Hemoglobin 6.1 GM/DL Hematocrit 17.8 % Mean Corpuscular Volume 93.4 FL Mean Corpuscular Hemoglobin 31.9 PG Mean Corpuscular Hemoglobin Concent 34.2 % Red Cell Distribution Width 17.0 % Platelet Count 14 TH/MM3 Mean Platelet Volume 6.9 FL CBC Comment AUTO DIFF Differential Total Cells Counted 25 Neutrophils % (Manual) 8 % Lymphocytes % 88 % Monocytes % 4 % Neutrophils # (Manual) 0.0 TH/MM3 Differential Comment FINAL DIFF MANUAL Platelet Estimate RARE Platelet Morphology Comment NORMAL Phosphorus Level 3.8 MG/DL Magnesium Level 2.3 MG/DL Uric Acid 2.3 MG/DL Imaging Studies Last 24 hours Impressions Abdomen Ultrasound 01/07/17 0000 Signed Impressions: Service Date/Time: December 01:11 - CONCLUSION: 1. No acute findings. Liver enlarged. Spleen mildly prominent at 14 cm. Leander Fiore MD Administered Medications Medications (Trade) Dose Ordered Sig/Emma Route PRN Reason Start Time Stop Time Status Last Admin Dose Admin Sodium Chloride (NS Flush) 2 ml UNSCH PRN IV FLUSH FLUSH AFTER USING IV ACCESS 12/25/16 23:00 12/30/16 04:59 Sodium Chloride (NS Flush) 2 ml BID IV FLUSH 12/26/16 09:00 01/06/17 22:12 Acetaminophen (Tylenol) 650 mg Q6H PRN PO FEVER>100.4 12/25/16 23:00 12/29/16 22:30 Senna/Docusate Sodium (Rika-Colace) 1 tab BID PO 12/26/16 09:00 01/04/17 21:49 Benzonatate (Tessalon) 100 mg Q4H PRN PO COUGH 12/26/16 05:15 12/26/16 15:12 Promethazine HCl/ Codeine (Phenergan-Codeine Liq) 5 ml Q4H PRN PO COUGH 12/26/16 20:00 12/31/16 17:09 Diphenhydramine HCl (Benadryl) 25 mg Q4H PRN PO SEE LABEL COMMENTS 12/27/16 04:15 12/28/16 00:11 Acetaminophen (Tylenol) 650 mg Q4H PRN PO SEE LABEL COMMENTS 12/27/16 04:15 12/28/16 00:11 Mupirocin (Bactroban 2% Oint) 1 applic TID TOPICAL 12/27/16 14:15 01/07/17 08:42 Pantoprazole Sodium (Protonix) 20 mg DAILY PO 12/29/16 09:00 01/07/17 08:42 Heparin Sodium (Porcine) (Heparin Central Flush) 500 units UNSCH PRN IV FLUSH SEE PROTOCOL TABLE 12/30/16 06:30 12/31/16 15:45 Cytarabine 200 mg/ Sodium Chloride 500 ml @ 20.833 mls/ hr Q24H IV 12/31/16 18:30 01/07/17 18:29 01/07/17 06:27 Sodium Chloride 1,000 ml @ 42 mls/hr [id number] IV 01/02/17 12:45 01/06/17 17:34 Promethazine HCl (Phenergan) 25 mg Q4H PRN PO nausea or vomitting 01/04/17 10:15 01/06/17 14:43 Dicyclomine HCl (Bentyl) 20 mg TID PO 01/05/17 10:00 01/07/17 08:42 Ondansetron HCl (Zofran Inj) 4 mg Q8HR IV PUSH 01/06/17 06:00 01/08/17 06:00 01/06/17 22:13 Allopurinol (Zyloprim) 200 mg DAILY PO 01/06/17 09:00 01/07/17 08:42 Hyoscyamine Sulfate (Levsin) 0.25 mg Q4H PRN PO CRAMPS 01/06/17 09:30 01/06/17 10:06 Hydromorphone HCl (Dilaudid Pf Inj) 1 mg Q4H PRN IV PAIN SCALE 1 TO 10 01/06/17 23:15 01/07/17 04:14 Objective Remarks GENERAL: Obese younger male resting in bed talking on the phone. SKIN: Warm and dry. Infusaport to R chest. HEAD: Normocephalic. EYES: No injection or drainage. NECK: Supple, trachea midline. CARDIOVASCULAR: Regular rate and rhythm RESPIRATORY: Clear anteriorly. On room air. GASTROINTESTINAL: Abdomen obese. Mildly tender to palpation of epigastric area. EXTREMITIES: No cyanosis. No edema. NEUROLOGICAL: No obvious focal deficit. Awake, alert, and oriented x3. 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 - Acute myeloblastic leukemia, not having achieved remission Plan: -- Preliminary BMB showed 70% blasts in bone marrow -- Cytogenetics (FLT and KIT) pending -- MUGA scan shows normal ejection fraction with no wall motion abnormalities 12/31 Day 1: Daunorubicin and Cytarabine 01/01 Day 2: Daunorubicin and Cytarabine 01/02 Day 3: Daunorubicin and Cytarabine 01/03 Day 4: Cytarabine 01/04 Day 5: Cytarabine 01/05 Day 6: Cytarabine 01/06 Day 7: Cytarabine 01/07 Day 8: Last bag cytarabine infusing; will finish approx. 3am. Transfuse 1 unit irr. platelets, 1 unit irr. PRBC's. (2) Neutropenia ICD Codes: D70.9 - Neutropenia, unspecified Status: Acute Plan: -- ID following -- All Abx stopped; monitor for fevers. -- BC on 12/25 = no growth. -- Bronchoscopy on 12/28= no growth. -- BC on 12/29= no growth. (3) Abdominal pain ICD Codes: R10.9 - Unspecified abdominal pain Plan: -- Epigastric area pain -- Amylase, lipase ordered -- CT abdomen/ pelvis shows splenic infarcts; if pain persists may do CTA abdomen. Assessment 26 y/o male with no major past medical history who was brought in for headache, confusion and cough. Plan 1. CT Abd/Pelvis showed splenic infarcts. If abdominal pain progresses may need to do CTA of abdomen. 2. Abdominal pain better controlled with IV Dilaudid; pt states he will try oral oxycodone today before requesting the Dilaudid. 3. Patient currently getting last bag of cytarabine chemotherapy. 4. Transfuse 1 unit irradiated PRBCs and 1 unit of platelets today. 5. Noted that patient having hypotension, negative fluid balance. IV fluid bolus ordered by attending. We will also begin normal saline at 75 mL an hour later this afternoon. Attending Statement The exam, history, and the medical decision-making described in the above note were completed with the assistance of the mid-level provider. I reviewed and agree with the findings presented. I attest that I had a [id number] encounter with the patient on the same day, and personally performed and documented my assessment and findings in the medical record. 1. 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 Febrile Neutropenia -- Remains afebrile - Levaquin stopped/Fluconazole D/C'd - Repeat blood cultures X 2 12/29- no growth - Blood cultures with no growth 12/25 2. Headache/Nausea - Symptoms resolved - Brain MRI negative 3 Acute Respiratory distress--Resolved - s/p broch--negative results thus far - Possibility of leukemic infiltrates--can be seen in AML M4 - Nebs prn 4. FEN - replace electrolytes - Calcium, Mag and Phosp daily 5. Thrombocytopenia - no evidence of DIC - Check Fibronogen every other day - Transfuse to keep platelets > 10 - Will need irradiated blood products - Transfuse 1 unit of irradiated CMV negative Platelets 6. Anemia - transfuse to keep Hb > 7 - will need irradiated blood products - Transfuse 1 unit of irradiated CMV negative pRBC 7. Tumor Lysis Prophylaxis - Allopurinol 200mg daily - will stop checking daily uric acid - check daily phosp 8. Nausea--persistent - SCHEDULED ZOFRAN FOR NOW started 01/05 -phenergan prn 9. Abdominal Spasm - some improvement in spasm - trial of dicyclomine and levsin - no diarrhea or constipation - CT abdomen and pelvis obtained -shows small splenic infarcts. does not explain the disproportionate amount of pain. pain appears to be more crampy in nature - getting IV Dilaudid and oxycodone 5mg po prn - If pain persists will consider CT angiogram to asses for any ischemia vs HIDA scan to asses for biliary etiology. CT abdomen does not show any gall bladder stones overnight events reviewed jeanette adams Problem Qualifiers (1) Neutropenia: Robina Cui Jan 07, 2017 10:10 Joey Santoyo MD Jan 08, 2017 00:03
[2017-01-07 10:11] LABS: CALCIUM-PROTEIN CORRECTED 8.7 MG/DL (8.5-10.1)
[2017-01-07] MEDS: diphenhydrAMINE HCL 25 MG CAP PO PRN ×2 (11:03→14:36)
[2017-01-07] MEDS: ACETAMINOPHEN 325 MG TAB PO PRN ×2 (11:03→14:36)
[2017-01-07] MEDS: SODIUM CHLOR 0.9% 1000 ML INJ 1,000 ML IV SCH ×2 (11:50→18:20)
[2017-01-08] VITALS (11 sets, daily range): BP systolic 104–136; BP diastolic 49–62; PULSE 93–118; RESP 16–22; TEMP 96.1–98.7; O2SAT 98–100
[2017-01-08] MEDS: HYDROmorphone HCL PF 1 MG/ML VIAL IV PRN ×3 (02:12→08:12)
[2017-01-08] MEDS: SODIUM CHLOR 0.9% 1000 ML INJ 1,000 ML IV SCH ×2 (03:20→20:34)
[2017-01-08] MEDS: ONDANSETRON HCL 4 MG/2 ML VIAL IV PUSH SCH (05:22)
[2017-01-08 05:57] LABS: MEAN CELL VOLUME 91.6 FL (80.0-100.0); MEAN CORPUSCULAR HEMOGLOBIN 32.5 PG (27.0-34.0); MEAN CORPUSCULAR HGB CONC 35.5 % (32.0-36.0); RED BLOOD COUNT 1.97 MIL/MM3 (4.50-5.90); RED CELL DISTRIBUTION WIDTH 17.1 % (11.6-17.2); WHITE BLOOD COUNT 0.4 TH/MM3 (4.0-11.0)
[2017-01-08 06:29] LABS: HEMO FLAGS AUTO DIFF
[2017-01-08 06:30] LABS: PLATELET COUNT 15 TH/MM3 (150-450)
[2017-01-08 06:36] LABS: BICARBONATE 27.8 MEQ/L (21.0-32.0); CALCIUM-PROTEIN CORRECTED 7.9 MG/DL (8.5-10.1); MAGNESIUM 2.3 MG/DL (1.5-2.5); POTASSIUM 3.9 MEQ/L (3.5-5.1); URIC ACID 1.6 MG/DL (2.6-7.2)
[2017-01-08 07:15] LABS: PLATELET ESTIMATE SMEAR RARE (NORMAL); PLATELET MORPHOLOGY NORMAL (NORMAL); SCAN/DIFF FINAL DIFF MANUAL; WBC DIFF SAMPLE 25
[2017-01-08] MEDS: Hickman Catheter Daily NS Lock Flush IV FLUSH SCH (08:07)
[2017-01-08] MEDS: SODIUM CHLORIDE 0.9% FLUSH 10 ML FLUSH IV FLUSH SCH ×2 (08:07→20:35)
[2017-01-08] MEDS: DICYCLOMINE HCL 20 MG TAB PO SCH ×3 (08:12→17:10)
[2017-01-08] MEDS: DOCUSATE SODIUM 50 MG/SENNA 8.6 MG TAB PO SCH ×2 (08:12→20:35)
[2017-01-08] MEDS: MUPIROCIN 2% OINT 22 GM TUBE TOPICAL SCH ×3 (08:13→17:10)
[2017-01-08] MEDS: PANTOPRAZOLE SOD 20 MG DELAYED RELEASE TAB PO SCH ×2 (08:13→20:34)
[2017-01-08] MEDS: ALLOPURINOL 100 MG TAB PO SCH (08:13)
[2017-01-08] MEDS ORDERED: HYDROmorphone HCL PF 1 MG/ML VIAL IV PUSH ONE (11:15)
[2017-01-08] MEDS ORDERED: diphenhydrAMINE HCL 25 MG CAP PO PRN (11:30)
[2017-01-08] MEDS ORDERED: SODIUM CHLOR 0.9% 250 ML INJ 250 ML IV ONE (11:30)
[2017-01-08] MEDS ORDERED: ACETAMINOPHEN 325 MG TAB PO PRN (11:30)
--- NOTE | 2017-01-08 11:35 | PD.ONC.PN ---
Subjective Subjective Remarks Afebrile overnight. Persistent cramping abdominal pain. Comes in waves and is epigastric in location. Had an episode of diarrhea this morning. the diarrhea did not improve his pain. no blood in the stools. did not eat anything since lunch yesterday. pain is worsening. Objective Data Date Time Temp Pulse Resp B/P (MAP) Pulse Ox O2 Delivery O2 Flow Rate FiO2 01/08/17 10:53 Room Air 01/08/17 09:00 97.3 95 20 120/58 (78) 100 01/08/17 06:00 19 01/08/17 05:00 96.3 96 18 111/58 (75) 99 01/08/17 00:57 19 01/08/17 00:00 96.1 99 18 112/55 (74) 98 01/07/17 22:08 97 21 01/07/17 21:00 97 Room Air 21 01/07/17 21:00 84 01/07/17 20:00 96.2 100 20 97/46 (63) 96 01/07/17 18:12 98.0 83 20 131/61 100 01/07/17 16:46 96.1 83 21 117/56 (76) 98 01/07/17 15:16 Room Air 01/07/17 14:40 98.1 87 20 109/55 97 01/07/17 14:20 98.3 88 20 100/55 97 01/07/17 12:53 97.5 93 21 102/51 (68) 98 01/07/17 12:31 97.0 90 20 106/51 97 01/07/17 12:23 96.6 93 20 95/46 99 01/07/17 12:00 86 01/08/17 01/08/17 01/08/17 06:59 14:59 22:59 Intake Total 250 ml 1660 ml Output Total 1000 ml Balance -750 ml 1660 ml Result Diagram: 01/08/1752201/08/17522 Laboratory Results Laboratory Tests Test 01/08/17 05:23 White Blood Count 0.4 TH/MM3 Red Blood Count 1.97 MIL/MM3 Hemoglobin 6.4 GM/DL Hematocrit 18.0 % Mean Corpuscular Volume 91.6 FL Mean Corpuscular Hemoglobin 32.5 PG Mean Corpuscular Hemoglobin Concent 35.5 % Red Cell Distribution Width 17.1 % Platelet Count 15 TH/MM3 Mean Platelet Volume 7.3 FL CBC Comment AUTO DIFF Differential Total Cells Counted 25 Lymphocytes % 100 % Neutrophils # (Manual) 0.0 TH/MM3 Differential Comment FINAL DIFF MANUAL Platelet Estimate RARE Platelet Morphology Comment NORMAL Fibrinogen 261 mg/dL Blood Urea Nitrogen 18 MG/DL Creatinine 0.51 MG/DL Random Glucose 102 MG/DL Total Protein 5.2 GM/DL Albumin 2.1 GM/DL Calcium Level 6.9 MG/DL Phosphorus Level 2.9 MG/DL Magnesium Level 2.3 MG/DL Uric Acid 1.6 MG/DL Alkaline Phosphatase 32 U/L Aspartate Amino Transf (AST/SGOT) 5 U/L Alanine Aminotransferase (ALT/SGPT) 36 U/L Total Bilirubin 1.0 MG/DL Sodium Level 137 MEQ/L Potassium Level 3.9 MEQ/L Chloride Level 105 MEQ/L Carbon Dioxide Level 27.8 MEQ/L Anion Gap 4 MEQ/L Estimat Glomerular Filtration Rate 200 ML/MIN Protein Corrected Calcium 7.9 MG/DL Administered Medications Medications (Trade) Dose Ordered Sig/Emma Route PRN Reason Start Time Stop Time Status Last Admin Dose Admin Sodium Chloride (NS Flush) 2 ml UNSCH PRN IV FLUSH FLUSH AFTER USING IV ACCESS 12/25/16 23:00 12/30/16 04:59 Sodium Chloride (NS Flush) 2 ml BID IV FLUSH 12/26/16 09:00 01/08/17 08:07 Acetaminophen (Tylenol) 650 mg Q6H PRN PO FEVER>100.4 12/25/16 23:00 12/29/16 22:30 Senna/Docusate Sodium (Rika-Colace) 1 tab BID PO 12/26/16 09:00 01/08/17 08:12 Benzonatate (Tessalon) 100 mg Q4H PRN PO COUGH 12/26/16 05:15 12/26/16 15:12 Promethazine HCl/ Codeine (Phenergan-Codeine Liq) 5 ml Q4H PRN PO COUGH 12/26/16 20:00 12/31/16 17:09 Diphenhydramine HCl (Benadryl) 25 mg Q4H PRN PO SEE LABEL COMMENTS 12/27/16 04:15 01/07/17 14:36 Acetaminophen (Tylenol) 650 mg Q4H PRN PO SEE LABEL COMMENTS 12/27/16 04:15 01/07/17 14:36 Mupirocin (Bactroban 2% Oint) 1 applic TID TOPICAL 12/27/16 14:15 01/08/17 08:13 Pantoprazole Sodium (Protonix) 20 mg DAILY PO 12/29/16 09:00 01/08/17 08:13 Heparin Sodium (Porcine) (Heparin Central Flush) 500 units UNSCH PRN IV FLUSH SEE PROTOCOL TABLE 12/30/16 06:30 12/31/16 15:45 Sodium Chloride 1,000 ml @ 42 mls/hr [id number] IV 01/02/17 12:45 01/06/17 17:34 Promethazine HCl (Phenergan) 25 mg Q4H PRN PO nausea or vomitting 01/04/17 10:15 01/06/17 14:43 Dicyclomine HCl (Bentyl) 20 mg TID PO 01/05/17 10:00 01/08/17 08:12 Allopurinol (Zyloprim) 200 mg DAILY PO 01/06/17 09:00 01/08/17 08:13 Hyoscyamine Sulfate (Levsin) 0.25 mg Q4H PRN PO CRAMPS 01/06/17 09:30 01/06/17 10:06 Oxycodone HCl (Roxicodone) 5 mg Q4H PRN PO PAIN 1-10 01/06/17 19:00 01/07/17 10:48 Sodium Chloride 1,000 ml @ 75 mls/hr [id number] IV 01/07/17 14:00 01/07/17 18:20 Hydromorphone HCl (Dilaudid Pf Inj) 1 mg Q3H PRN IV PAIN SCALE 1 TO 10 01/08/17 02:45 01/08/17 08:12 Objective Remarks GENERAL: Young man, lying in bed, moaning in pain. SKIN: Warm and dry. HEAD: Normocephalic. EYES: No injection or drainage. NECK: Supple, trachea midline. CARDIOVASCULAR: Regular rate and rhythm RESPIRATORY: Breath sounds equal bilaterally. No accessory muscle use. GASTROINTESTINAL: Abdomen soft, +epigastric pain, nondistended. +hypoactive bowel sounds MUSCULOSKELETAL: No cyanosis, or edema. NEURO: awake and alert, normal speech. moving extremities. 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 Patients with rearrangement of CBFB in AML may have a higher risk of [employer] involvement at diagnosis or at relapse than patients with other types of AML. Inversion 16 or t(16;16), with or without additional chromosome abnormalities, has been associated with complete remission and improved long-term survival. - MUGA scan shows normal EF and no wall motion abnormalities 12/30/2016 - Port placement by IR completed 12/31/16 - Induction chemotherapy started 12/31-- 7+3 regimen with Daunorubicin 90mg/m2 and Cytaribine 100mg/m2-- Dosing capped at BSA of 2 - CMV negative, HIV and Hep B and C negative 12/31 Day 1: Daunorubicin and Cytarabine 01/01 Day 2: Daunorubicin and Cytarabine 01/02 Day 3: Daunorubicin and Cytarabine 01/03 Day 4: Cytarabine 01/04 Day 5: Cytarabine 01/05 Day 6: Cytarabine 01/06 Day 7: Cytarabine 01/07 Day 8: Last bag cytarabine infusing; will finish approx. 3am. Transfuse 1 unit irr. platelets, 1 unit irr. PRBC's. 01/08: D9. abdominal pain persistent. 2 units pRBC (2) Neutropenia ICD Codes: D70.9 - Neutropenia, unspecified Status: Acute Plan: -- ID following -- All Abx stopped; monitor for fevers. -- BC on 12/25 = no growth. -- Bronchoscopy on 12/28= no growth. -- BC on 12/29= no growth. (3) Abdominal pain ICD Codes: R10.9 - Unspecified abdominal pain Plan: -- Epigastric area pain -- Amylase, lipase WNL -- CT abdomen/ pelvis shows splenic infarcts; if pain persists may do CTA abdomen. --Abdominal U/S: shows no acute findings. enlarged liver and spleen. --will consult GI (4) Pancytopenia ICD Codes: D61.818 - Other pancytopenia Plan: - Check Fibrinogen every other day - Transfuse to keep platelets > 10 - Will need irradiated CMV negative blood products -- transfuse to keep Hb > 7 Assessment 26 y/o male with no major past medical history who was brought in for headache, confusion and cough. Plan 1. give 2 units pRBC today 2. continue NS @ 75cc/hour 3. obtain C. diff testing 4. consult GI for their opinion re: abdominal pain. 5. obtain CTA abdomen/pelvis Attending Statement The exam, history, and the medical decision-making described in the above note were completed with the assistance of the mid-level provider. I reviewed and agree with the findings presented. I attest that I had a [id number] encounter with the patient on the same day, and personally performed and documented my assessment and findings in the medical record. pRBC and Platelet transfusion today abdominal pain persists CTA abdomen did not reveal any etiology. Consider HIDA scan. appreciate GI assistance continue pain meds d/w rn o/n events reviewed Problem Qualifiers (1) Neutropenia: Fartun Pagan Jan 08, 2017 11:35 Joey Santoyo MD Jan 08, 2017 22:11
[2017-01-08] MEDS: diphenhydrAMINE HCL 25 MG CAP PO PRN ×2 (13:57→20:34)
[2017-01-08] MEDS: ACETAMINOPHEN 325 MG TAB PO PRN ×2 (13:58→20:34)
[2017-01-08 14:16] LABS: C. DIFF EPI 027 PRESUMPTIVE NEGATIVE (NEGATIVE)
[2017-01-08] MEDS ORDERED: IOHEXOL 350 MG/ML 10 ML VIAL (for RAD DIAG) IVCONTRAST ONE (14:41)
[2017-01-08] MEDS: HYDROmorphone HCL PF 2 MG/ML VIAL IV PRN ×3 (15:13→21:54)
[2017-01-08] MEDS: PROMETHAZINE HCL 25 MG TAB PO PRN ×3 (15:17→20:34)
--- NOTE | 2017-01-08 16:08 | RADRPT ---
EXAM DATE/TIME: 01/08/2017 14:43 [facility] COMPARISON: No previous studies available for comparison. INDICATIONS : Mid abdominal pain. IV CONTRAST: 100 cc Omnipaque 350 (iohexol) IV ORAL CONTRAST: No oral contrast ingested. RADIATION DOSE: 15.31 CTDIvol (mGy) ; Patient body habitus MEDICAL HISTORY : Carcinoma, not otherwise specified. SURGICAL HISTORY : power port ENCOUNTER: Initial ACUITY: 1 day PAIN SCALE: 8/10 LOCATION: Bilateral abdomen TECHNIQUE: Volumetric scanning was performed using a multi-row detector CT scanner. The data was post processed with a variety of visualization algorithms including full volume maximum intensity projection, multi -planar sliding thin slab reformation, curved planar reformation, and surface rendering techniques. Using automated exposure control and adjustment of the mA and/or kV according to patient size, radiat ion dose was kept as low as reasonably achievable to obtain optimal diagnostic quality images. DICOM format image data is available electronically for review and comparison. FINDINGS: The liver and spleen are free of focal defects. The gallbladder and pancreas demonstrate no abnormali ty. The adrenal glands are normal. The kidneys demonstrate no evidence of solid renal mass or hydrone phrosis. No free fluid or abdominal masses are identified. No para-aortic adenopathy is seen. Examination of the pelvis demonstrates no evidence of free fluid or pelvic mass. No abnormally enlarg ed inguinal or retroperitoneal lymph nodes are present. The bladder is unremarkable. There is diverti culosis without evidence of diverticulitis. Examination of the abdominal aorta demonstrates no evidence of aneurysm. The mesenteric arteries appe ar normal. The renal artery origins are nonstenotic bilaterally. CONCLUSION: 1. No evidence of mesenteric artery stenosis 2. Small amount of free fluid is present in the pelvis Humza Decker MD on January 08, 2017 at 15:55 Board Certified Radiologist. This report was verified electronically.
--- NOTE | 2017-01-08 17:02 | HHI.PR ---
Subjective Remarks Patient reportedly had a one time very loose bowel movement for which C dif PCR was ordered which is negative. Patient says he feels just as bad as he does yesterday, says the abdominal pain bothers him the most, says he hasn't tried eating much due to the pain but as a result of not eating much can't tell if he has any true dyspepsia. CTA abdomen today shows no acute ischemic issues, abdominal ultrasound simply shows enlarged liver and prominent spleen with no acute gallbladder abnormalities Objective Vital Signs Date Time Temp Pulse Resp B/P (MAP) Pulse Ox O2 Delivery O2 Flow Rate FiO2 01/08/17 16:21 97.0 97 16 131/53 100 01/08/17 12:00 96.8 111 22 117/57 (77) 99 01/08/17 10:53 Room Air 01/08/17 10:30 98 01/08/17 09:00 97.3 95 20 120/58 (78) 100 01/08/17 06:00 19 01/08/17 05:00 96.3 96 18 111/58 (75) 99 01/08/17 00:57 19 01/08/17 00:00 96.1 99 18 112/55 (74) 98 01/07/17 22:08 97 21 01/07/17 21:00 97 Room Air 21 01/07/17 21:00 84 01/07/17 20:00 96.2 100 20 97/46 (63) 96 01/07/17 18:12 98.0 83 20 131/61 100 I/O 01/07/17 01/07/17 01/07/17 01/08/17 01/08/17 01/08/17 07:00 15:00 23:00 07:00 15:00 23:00 Intake Total 100 ml 1008 ml 900 ml 250 ml 1660 ml 10 ml Output Total 1000 ml 1000 ml Balance -900 ml 1008 ml 900 ml -750 ml 1660 ml 10 ml Intake Oral 100 ml 720 ml 500 ml 250 ml IV Total 1660 ml Packed Cells 400 ml Platelets 278 ml Blood Product IV Normal Saline Flush 10 ml 10 ml Output Urine Total 1000 ml 1000 ml # Voids 2 Result Diagram: 01/08/17 0523 01/08/17 0523 Imaging Last 24 hours Impressions Abdomen/Pelvis CT 01/08/17 0000 Signed Impressions: Service Date/Time: Sunday, January 08, 2017 14:43 - CONCLUSION: 1. No evidence of mesenteric artery stenosis 2. Small amount of free fluid is present in the pelvis Humza Decker MD Objective Remarks GENERAL: Lying in bed relatively still, awake and alert CARDIOVASCULAR: Regular rate and rhythm without murmurs, gallops, or rubs. RESPIRATORY: No crackles heard anteriorly, clear breath sounds otherwise, not coughing MSCULOSKELETAL: No cyanosis, or edema. GI: Moderate tenderness to palpation over right upper quadrant and epigastrium, unable to palpate any focal masses A/P Assessment and Plan 1. Neutropenic fever: Fever component has resolved fortunately. Off of antibiotics, monitoring for fever per IDs recommendations. Negative blood cultures and CSF cultures and bronchial alveolar lavage as well 2. Neutropenia - secondary to AML . See treatment below 3. AML - heme/onc managing with induction therapy 4. 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 5. Abdominal pain - splenic infarcts likely contributing, still has what I think is an additional source from his right side of his abdomen which could be peptic ulcer disease or gallbladder, unable to obtain HIDA scan at this time due to receiving frequent pain medications but will let GI determine this as they have been consult for this. CTA Abd showing no signs of occlusive atherosclerosis, C.diff negative. On IV Dilaudid for this. 6. 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
--- NOTE | 2017-01-08 17:37 | PD.CONS ---
HPI History of Present Illness This is a 26 year old male who presented with AMS. Reportedly he had complained that day of headache, n/v. He is being treated for acute myeloid leukemia, on chemo. 2 d ago onset subjective fevers, decreased appetite, and sharp abd pain , intermittent but increasing in frequency. He does have n/v but has since starting chemo. Yesterday he started having loose stool, no blood. Neg c dfif. CT showed splenic infarction, CTA showed no mesenteric ischemia, small amt free fluid pelvis. he has no prior significant medical history, never had colonoscopy or EGD. PFSH Past Medical History PMH: None Past Surgical History PAST SURGICAL HISTORY: [place] Tooth Extraction Coded Allergies: No Known Allergies (Verified , 12/25/16) Family History PAST FAMILY HISTORY: Reviewed. No h/o DM or CAD Social History PAST SOCIAL HISTORY: Occasional alcohol. Negative for tobacco or drugs. Review of Systems Constitutional: COMPLAINS OF: Fever Eyes: DENIES: Blurred vision Ears, nose, mouth, throat: DENIES: Hearing loss Respiratory: DENIES: Hemoptysis Cardiovascular: DENIES: Palpitations Gastrointestinal: COMPLAINS OF: Abdominal pain, Diarrhea, Nausea, Vomiting, DENIES: Black stools, Bloody stools, Constipation, Hematemesis Genitourinary: DENIES: Hematuria Musculoskeletal: DENIES: Joint Swelling Neurologic: DENIES: Paresthesias Psychiatric: DENIES: Confusion GI Exam Vitals I&O Vital Signs Date Time Temp Pulse Resp B/P (MAP) Pulse Ox O2 Delivery O2 Flow Rate FiO2 01/08/17 17:05 97.1 101 16 104/49 100 01/08/17 16:21 97.0 97 16 131/53 100 01/08/17 16:00 97.5 93 22 104/49 (67) 100 01/08/17 12:00 96.8 111 22 117/57 (77) 99 01/08/17 10:53 Room Air 01/08/17 10:30 98 01/08/17 09:00 97.3 95 20 120/58 (78) 100 01/08/17 06:00 19 01/08/17 05:00 96.3 96 18 111/58 (75) 99 01/08/17 00:57 19 01/08/17 00:00 96.1 99 18 112/55 (74) 98 01/07/17 22:08 97 21 01/07/17 21:00 97 Room Air 21 01/07/17 21:00 84 01/07/17 20:00 96.2 100 20 97/46 (63) 96 01/07/17 18:12 98.0 83 20 131/61 100 I/O 01/07/17 01/07/17 01/07/17 01/08/17 01/08/17 01/08/17 07:00 15:00 23:00 07:00 15:00 23:00 Intake Total 100 ml 1008 ml 900 ml 250 ml 1660 ml 10 ml Output Total 1000 ml 1000 ml Balance -900 ml 1008 ml 900 ml -750 ml 1660 ml 10 ml Intake Oral 100 ml 720 ml 500 ml 250 ml IV Total 1660 ml Packed Cells 400 ml Platelets 278 ml Blood Product IV Normal Saline Flush 10 ml 10 ml Output Urine Total 1000 ml 1000 ml # Voids 2 Imaging Last Impressions Abdomen/Pelvis CT 01/08/17 0000 Signed Impressions: Service Date/Time: Sunday, January 08, 2017 14:43 - CONCLUSION: 1. No evidence of mesenteric artery stenosis 2. Small amount of free fluid is present in the pelvis Humza Decker MD Abdomen Ultrasound 01/07/17 0000 Signed Impressions: Service Date/Time: December 01:11 - CONCLUSION: 1. No acute findings. Liver enlarged. Spleen mildly prominent at 14 cm. Leander Fiore MD Chest X-Ray 01/03/17 0600 Signed Impressions: Service Date/Time: Tuesday, January 03, 2017 04:42 - CONCLUSION: Normal examination. Right IJ [id number] catheter in excellent position. Lungs are clear. Enrique Ramos MD Port Line Insertion 12/31/16 0000 Signed Impressions: Service Date/Time: December 15:15 - CONCLUSION: Uncomplicated ultrasound and fluoroscopic guided implanted central venous port catheter placement as described in detail above. An 8 English Power port was placed. Nilson Bonner MD [facility] Nuclear Medicine 12/30/16 0000 Signed Impressions: Service Date/Time: Friday, December 30, 2016 13:16 - CONCLUSION: Negative exam. Calculated ejection fraction of 56%% with adequate wall motion throughout. Bean Dugan MD Bone Biopsy CT 12/28/16 0000 Signed Impressions: Service Date/Time: Wednesday, December 28, 2016 16:53 - CONCLUSION: 1. Uncomplicated CT guided bone marrow aspirate. 2. Uncomplicated CT guided bone marrow biopsy. Grant Jones MD Brain MRI 12/27/16 0000 Signed Impressions: Service Date/Time: Tuesday, December 27, 2016 21:58 - CONCLUSION: Unremarkable study. Patricia Contreras MD Lumbar Puncture Fluoroscopy 12/26/16 0000 Signed Impressions: Service Date/Time: Monday, December 26, 2016 17:03 - CONCLUSION: Uncomplicated fluoroscopically guided lumbar puncture with pressures as above. Nlison Bonner MD Chest CT 12/26/16 0000 Signed Impressions: Service Date/Time: Monday, December 26, 2016 17:45 - CONCLUSION: Bibasilar air space process characteristic of pneumonia. Patricia Contreras MD Head CT 12/25/16 194 Signed Impressions: Service Date/Time: Sunday, December 25, 2016 19:50 - CONCLUSION: Negative noncontrast head CT. Audie Maria MD Laboratory Test 01/08/17 05:23 01/08/17 11:48 White Blood Count 0.4 TH/MM3 Red Blood Count 1.97 MIL/MM3 Hemoglobin 6.4 GM/DL Hematocrit 18.0 % Mean Corpuscular Volume 91.6 FL Mean Corpuscular Hemoglobin 32.5 PG Mean Corpuscular Hemoglobin Concent 35.5 % Red Cell Distribution Width 17.1 % Platelet Count 15 TH/MM3 Mean Platelet Volume 7.3 FL CBC Comment AUTO DIFF Differential Total Cells Counted 25 Lymphocytes % 100 % Neutrophils # (Manual) 0.0 TH/MM3 Differential Comment FINAL DIFF MANUAL Platelet Estimate RARE Platelet Morphology Comment NORMAL Fibrinogen 261 mg/dL Blood Urea Nitrogen 18 MG/DL Creatinine 0.51 MG/DL Random Glucose 102 MG/DL Total Protein 5.2 GM/DL Albumin 2.1 GM/DL Calcium Level 6.9 MG/DL Phosphorus Level 2.9 MG/DL Magnesium Level 2.3 MG/DL Uric Acid 1.6 MG/DL Alkaline Phosphatase 32 U/L Aspartate Amino Transf (AST/SGOT) 5 U/L Alanine Aminotransferase (ALT/SGPT) 36 U/L Total Bilirubin 1.0 MG/DL Sodium Level 137 MEQ/L Potassium Level 3.9 MEQ/L Chloride Level 105 MEQ/L Carbon Dioxide Level 27.8 MEQ/L Anion Gap 4 MEQ/L Estimat Glomerular Filtration Rate 200 ML/MIN Protein Corrected Calcium 7.9 MG/DL Lactate Dehydrogenase 119 U/L Stool C. difficile Toxin (PCR) NEGATIVE Stl C. difficile Toxin Epiderm 027 PRESUMPTIVE NEGATIVE Date/Time Source Procedure Growth Status 12/29/16 22:47 Blood Peripheral Aerobic Blood Culture - Final NO GROWTH IN 5 DAYS Complete 12/29/16 22:47 Blood Peripheral Anaerobic Blood Culture - Final NO GROWTH IN 5 DAYS Complete 12/26/16 17:10 Cerebral Spinal Fluid Lumbar Puncture Acid Fast Stain - Final NO ACID FAST BACILLI SEEN Resulted 12/26/16 17:10 Cerebral Spinal Fluid Lumbar Puncture Mycobacterial Culture - Preliminary NO GROWTH IN 1 WEEK Resulted 12/28/16 00:35 Stool Stool Stool Occult Blood (SUNDAR) - Final HEMOCCULT NEGATIVE Complete 12/28/16 17:50 Bronchial Washings Left Lower Lobe Fungal Smear - Final NO FUNGAL ELEMENTS SEEN. Resulted 12/28/16 17:50 Bronchial Washings Left Lower Lobe Fungal Culture - Preliminary NO GROWTH IN 1 WEEK Resulted 12/31/16 00:50 Urine Random Urine Legionella Antigen - Final PRESUMPTIVE NEGATIVE FOR LEGIONELLA P... Complete 12/31/16 00:50 Urine Random Urine Streptococcus pneumoniae Antigen (M - Final PRESUMPTIVE NEGATIVE FOR STREPTOCOCCU... Complete Physical Examination HEENT: PERRL; normocephalic; atraumatic; no jaundice. CHEST: CTA CARDIAC: RRR ABDOMEN: Soft, obese, TTP RUQ, LUQ and epigastrium; bowel sounds are present in all four quadrants. EXTREMITIES: No clubbing, cyanosis, or edema. SKIN: Normal; no rash; no jaundice. 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 Assessment and Plan Plan ASSESSMENT - abd pain - unclear etiology. CT showing splenic infarct. CTA no mesenteric ischemia, sm amt free fluid pelvis. could be multifactorial, r/t splenic infracts and/or gastric ulcers. - diarrhea - onset yesterday, c diff neg - acute myeloid luekemia, oncology following, induction therapy PLAN - increase protonix to BID - will do HIDA to r/o GB dysfunction - EGD when counts improved, if pain not resolved - will get stool cx - supportive care This pt seen by myself and Dr Rosas and this note is written on his behalf Shelley Piña Jan 08, 2017 17:37
[2017-01-09] VITALS (19 sets, daily range): BP systolic 106–125; BP diastolic 44–59; PULSE 106–137; RESP 16–22; TEMP 96.6–99.4; O2SAT 93–100
[2017-01-09] MEDS: HYDROmorphone HCL PF 2 MG/ML VIAL IV PRN ×7 (02:24→21:03)
[2017-01-09] MEDS: SODIUM CHLOR 0.9% 1000 ML INJ 1,000 ML IV SCH ×2 (02:27→21:28)
[2017-01-09 06:07] LABS: EOSINOPHIL % 0.4 % (0.0-4.0); LYMPH % 80.3 % (9.0-44.0); LYMPHOCYTE # 0.2 TH/MM3 (1.0-4.8); MEAN CELL VOLUME 90.5 FL (80.0-100.0); MEAN CORPUSCULAR HEMOGLOBIN 31.6 PG (27.0-34.0); MEAN CORPUSCULAR HGB CONC 34.9 % (32.0-36.0); MONO % 16.2 % (0.0-8.0); NEUT % 3.1 % (16.0-70.0); RED BLOOD COUNT 1.86 MIL/MM3 (4.50-5.90); RED CELL DISTRIBUTION WIDTH 16.2 % (11.6-17.2); WHITE BLOOD COUNT 0.3 TH/MM3 (4.0-11.0)
[2017-01-09 06:23] LABS: HEMO FLAGS AUTO DIFF
[2017-01-09 06:25] LABS: HEMATOCRIT 16.9 % (39.0-51.0); PLATELET COUNT 5 TH/MM3 (150-450)
[2017-01-09 07:15] LABS: MAGNESIUM 2.2 MG/DL (1.5-2.5); POTASSIUM 3.7 MEQ/L (3.5-5.1); URIC ACID 1.4 MG/DL (2.6-7.2)
[2017-01-09 08:01] LABS: WBC DIFF SAMPLE 25
[2017-01-09 08:02] LABS: PLATELET ESTIMATE SMEAR RARE (NORMAL); PLATELET MORPHOLOGY NORMAL (NORMAL); SCAN/DIFF FINAL DIFF MANUAL
[2017-01-09] MEDS ORDERED: SODIUM CHLOR 0.9% 250 ML INJ 250 ML IV ONE (08:15)
[2017-01-09] MEDS: DICYCLOMINE HCL 20 MG TAB PO SCH ×3 (08:50→18:08)
[2017-01-09] MEDS: PANTOPRAZOLE SOD 20 MG DELAYED RELEASE TAB PO SCH (08:51)
[2017-01-09] MEDS: ALLOPURINOL 100 MG TAB PO SCH (08:51)
[2017-01-09] MEDS: MUPIROCIN 2% OINT 22 GM TUBE TOPICAL SCH ×3 (09:00→18:08)
[2017-01-09] MEDS: DOCUSATE SODIUM 50 MG/SENNA 8.6 MG TAB PO SCH (09:00)
[2017-01-09] MEDS: Hickman Catheter Daily NS Lock Flush IV FLUSH SCH (09:27)
[2017-01-09] MEDS: SODIUM CHLORIDE 0.9% FLUSH 10 ML FLUSH IV FLUSH SCH ×2 (09:27→21:00)
[2017-01-09] MEDS: ACETAMINOPHEN 325 MG TAB PO PRN ×2 (11:17→15:23)
[2017-01-09] MEDS: diphenhydrAMINE HCL 25 MG CAP PO PRN ×2 (11:17→15:23)
--- NOTE | 2017-01-09 11:27 | RADRPT ---
EXAM DATE/TIME: 01/09/2017 10:01 [facility] COMPARISON: No previous studies available for comparison. INDICATIONS : Abdominal pain with nausea and vomiting. DOSE: 4.1 mCi Tc99m Mebrofenin IV MEDICAL HISTORY : Acute myeloid leukemia. SURGICAL HISTORY : None. ENCOUNTER: Initial ACUITY: 2 days PAIN SCALE: 3/10 LOCATION: Right upper quadrant TECHNIQUE: Following the intravenous administration of radiotracer, dynamic sequential images were performed wit h continuous acquisition. FINDINGS: HEPATIC KINETICS: There is prompt uptake of radiotracer in the liver. No focal defects are seen. There is normal rate of washout from the hepatic parenchyma. BILIARY CLEARANCE: Activity is first seen in the extrahepatic biliary system at 15 minutes. There is normal excretion i nto the small bowel. GALLBLADDER: Activity is first seen in the gallbladder at 15 minutes. Common bile duct kinetics are normal and th ere is no evidence of biliary obstruction. BILIARY ENTRIC REFLUX: None observed. CONCLUSION: 1. The patient refused imaging beyond 45 minutes. There is activity seen within small bowel and gallb ladder with no evidence for cystic duct obstruction. Danie Kelly MD on January 09, 2017 at 11:25 Board Certified Radiologist. This report was verified electronically.
--- NOTE | 2017-01-09 12:57 | PD.ONC.PN ---
Subjective Subjective Remarks Afebrile overnight. Patient with severe cramping abdominal pain. +anorexia. ate peanut butter sandwich in the afternoon yesterday when the pain subsided somewhat. Reports he has had nothing else in the last 24 hours. Reports pain is worsening in severity but quality remains the same--cramping and epigastric in location. Objective Data Date Time Temp Pulse Resp B/P (MAP) Pulse Ox O2 Delivery O2 Flow Rate FiO2 01/09/17 12:30 97.0 111 21 119/56 100 01/09/17 12:11 97.0 108 22 121/57 (78) 100 01/09/17 11:58 97.0 108 22 121/57 100 01/09/17 08:44 97 21 01/09/17 08:41 96.8 109 22 125/59 (81) 98 01/09/17 05:11 96.6 117 18 109/44 (65) 100 01/09/17 04:00 114 01/09/17 00:00 116 01/09/17 00:00 97.4 114 18 115/53 (73) 99 01/08/17 22:15 98.7 113 20 133/58 98 01/08/17 21:53 96.4 109 20 136/62 99 01/08/17 20:30 98 Room Air 01/08/17 20:00 97.6 118 17 130/60 (83) 100 01/08/17 20:00 100 01/08/17 17:05 97.1 101 16 104/49 100 01/08/17 16:21 97.0 97 16 131/53 100 01/08/17 16:00 97.5 93 22 104/49 (67) 100 01/09/17 01/09/17 01/09/17 07:00 15:00 23:00 Intake Total 650 ml 200 ml Balance 650 ml 200 ml Result Diagram: 01/09/1752201/09/17522 Laboratory Results Laboratory Tests Test 01/09/17 05:23 White Blood Count 0.3 TH/MM3 Red Blood Count 1.86 MIL/MM3 Hemoglobin 5.9 GM/DL Hematocrit 16.9 % Mean Corpuscular Volume 90.5 FL Mean Corpuscular Hemoglobin 31.6 PG Mean Corpuscular Hemoglobin Concent 34.9 % Red Cell Distribution Width 16.2 % Platelet Count 5 TH/MM3 Mean Platelet Volume 7.8 FL Neutrophils (%) (Auto) 3.1 % Lymphocytes (%) (Auto) 80.3 % Monocytes (%) (Auto) 16.2 % Eosinophils (%) (Auto) 0.4 % Basophils (%) (Auto) 0.0 % Neutrophils # (Auto) 0.0 TH/MM3 Lymphocytes # (Auto) 0.2 TH/MM3 Monocytes # (Auto) 0.0 TH/MM3 Eosinophils # (Auto) 0.0 TH/MM3 Basophils # (Auto) 0.0 TH/MM3 CBC Comment AUTO DIFF Differential Total Cells Counted 25 Lymphocytes % 96 % Monocytes % 4 % Neutrophils # (Manual) 0.0 TH/MM3 Differential Comment FINAL DIFF MANUAL Platelet Estimate RARE Platelet Morphology Comment NORMAL Red Cell Morphology Comment NORMAL Blood Urea Nitrogen 15 MG/DL Creatinine 0.60 MG/DL Random Glucose 92 MG/DL Total Protein 4.6 GM/DL Albumin 1.8 GM/DL Calcium Level 6.7 MG/DL Phosphorus Level 3.0 MG/DL Magnesium Level 2.2 MG/DL Uric Acid 1.4 MG/DL Alkaline Phosphatase 31 U/L Aspartate Amino Transf (AST/SGOT) 4 U/L Alanine Aminotransferase (ALT/SGPT) 24 U/L Total Bilirubin 4.0 MG/DL Sodium Level 135 MEQ/L Potassium Level 3.7 MEQ/L Chloride Level 99 MEQ/L Carbon Dioxide Level 28.0 MEQ/L Anion Gap 8 MEQ/L Estimat Glomerular Filtration Rate 166 ML/MIN Protein Corrected Calcium 8.0 MG/DL Amylase Level 10 U/L Lipase 41 U/L Culture Results Microbiology Date/Time Source Procedure Growth Status 01/08/17 11:48 Stool Stool Cryptosporidium Exam Pending Resulted 01/08/17 11:48 Stool Stool Stool Pus (SUNDAR) - Final RARE WBC Resulted 01/08/17 11:48 Stool Stool Giardia Antigen (SUNDAR) Pending Resulted 01/08/17 11:48 Stool Stool Pending Received Imaging Studies Last 24 hours Impressions Hepatobiliary Scan Nuclear Medicine 01/09/17 0000 Signed Impressions: Service Date/Time: Monday, January 09, 2017 10:01 - CONCLUSION: 1. The patient refused imaging beyond 45 minutes. There is activity seen within small bowel and gallbladder with no evidence for cystic duct obstruction. Danie Kelly MD Administered Medications Medications (Trade) Dose Ordered Sig/Emma Route PRN Reason Start Time Stop Time Status Last Admin Dose Admin Sodium Chloride (NS Flush) 2 ml UNSCH PRN IV FLUSH FLUSH AFTER USING IV ACCESS 12/25/16 23:00 12/30/16 04:59 Sodium Chloride (NS Flush) 2 ml BID IV FLUSH 12/26/16 09:00 01/09/17 09:27 Acetaminophen (Tylenol) 650 mg Q6H PRN PO FEVER>100.4 12/25/16 23:00 12/29/16 22:30 Senna/Docusate Sodium (Rika-Colace) 1 tab BID PO 12/26/16 09:00 01/08/17 08:12 Benzonatate (Tessalon) 100 mg Q4H PRN PO COUGH 12/26/16 05:15 12/26/16 15:12 Promethazine HCl/ Codeine (Phenergan-Codeine Liq) 5 ml Q4H PRN PO COUGH 12/26/16 20:00 12/31/16 17:09 Diphenhydramine HCl (Benadryl) 25 mg Q4H PRN PO SEE LABEL COMMENTS 12/27/16 04:15 01/09/17 11:17 Acetaminophen (Tylenol) 650 mg Q4H PRN PO SEE LABEL COMMENTS 12/27/16 04:15 01/09/17 11:17 Mupirocin (Bactroban 2% Oint) 1 applic TID TOPICAL 12/27/16 14:15 01/09/17 09:00 Sodium Chloride (NS Flush) 5 ml DAILY IV FLUSH 12/30/16 09:00 01/09/17 09:27 Heparin Sodium (Porcine) (Heparin Central Flush) 500 units UNSCH PRN IV FLUSH SEE PROTOCOL TABLE 12/30/16 06:30 12/31/16 15:45 Promethazine HCl (Phenergan) 25 mg Q4H PRN PO nausea or vomitting 01/04/17 10:15 01/08/17 20:34 Dicyclomine HCl (Bentyl) 20 mg TID PO 01/05/17 10:00 01/09/17 08:50 Allopurinol (Zyloprim) 200 mg DAILY PO 01/06/17 09:00 01/09/17 08:51 Hyoscyamine Sulfate (Levsin) 0.25 mg Q4H PRN PO CRAMPS 01/06/17 09:30 01/06/17 10:06 Sodium Chloride 1,000 ml @ 75 mls/hr [id number] IV 01/07/17 14:00 01/09/17 02:27 Pantoprazole Sodium (Protonix) 20 mg BID PO 01/08/17 21:00 01/09/17 08:51 Objective Remarks GENERAL: Young man, supine in bed. appears uncomfortable. SKIN: Warm and dry. petechiae along abdomen. HEAD: Normocephalic. EYES: No injection or drainage. NECK: Supple, trachea midline. CARDIOVASCULAR: Regular rate and rhythm RESPIRATORY: Breath sounds equal bilaterally. No accessory muscle use. GASTROINTESTINAL: obese abdomen soft, +pain in epigastrium. MUSCULOSKELETAL: No cyanosis NEURO: awake and alert, normal speech. no obvious focal deficit. 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 Patients with rearrangement of CBFB in AML may have a higher risk of REGIONAL MARKETING DIRECTOR involvement at diagnosis or at relapse than patients with other types of AML. Inversion 16 or t(16;16), with or without additional chromosome abnormalities, has been associated with complete remission and improved long-term survival. - MUGA scan shows normal EF and no wall motion abnormalities 12/30/2016 - Port placement by IR completed 12/31/16 - Induction chemotherapy started 12/31-- 7+3 regimen with Daunorubicin 90mg/m2 and Cytaribine 100mg/m2-- Dosing capped at BSA of 2 - CMV negative, HIV and Hep B and C negative 12/31 Day 1: Daunorubicin and Cytarabine 01/01 Day 2: Daunorubicin and Cytarabine 01/02 Day 3: Daunorubicin and Cytarabine 01/03 Day 4: Cytarabine 01/04 Day 5: Cytarabine 01/05 Day 6: Cytarabine 01/06 Day 7: Cytarabine 01/07 Day 8: Last bag cytarabine infusing; will finish approx. 3am. Transfuse 1 unit irr. platelets, 1 unit irr. PRBC's. 01/08: D9. abdominal pain persistent. 2 units pRBC 01/09: D10. 2 additional units pRBC ordered. 1 unit platelets ordered (2) Neutropenia ICD Codes: D70.9 - Neutropenia, unspecified Status: Acute Plan: -- ID following -- All Abx stopped; monitor for fevers. -- BC on 12/25 = no growth. -- Bronchoscopy on 12/28= no growth. -- BC on 12/29= no growth. (3) Abdominal pain ICD Codes: R10.9 - Unspecified abdominal pain Plan: -- Epigastric area pain -- Amylase, lipase WNL -- CT abdomen/ pelvis shows splenic infarcts; --CTA abdomen shows no mesenteric emboli --Abdominal U/S: shows no acute findings. enlarged liver and spleen. --GI following (4) Pancytopenia ICD Codes: D61.818 - Other pancytopenia Plan: - Check Fibrinogen every other day - Transfuse to keep platelets > 10 - Will need irradiated CMV negative blood products -- transfuse to keep Hb > 7 Assessment 26 y/o male with no major past medical history who was brought in for headache, confusion and cough. Plan 1. give 2 units pRBC, check H/H after transfusion complete 2. continue NS @ 75cc/hour 3. increase Dilaudid to 2mg IV q3 hours. Attending Statement The exam, history, and the medical decision-making described in the above note were completed with the assistance of the mid-level provider. I reviewed and agree with the findings presented. I attest that I had a [id number] encounter with the patient on the same day, and personally performed and documented my assessment and findings in the medical record. Patient seen and examined, vital signs, medications, labs, microbiology, imaging studies were reviewed. Patient was examined by myself personally and I agree with the findings documented above in the physical exam section. This is a 26-year-old man with a newly diagnosed acute myeloid leukemia associated with inversion 16. Status post induction remission systemic therapy; 7+3. Treatment completed on . Shortly thereafter he developed epigastric cramping abdominal pain. He is also having diarrhea. Imaging studies of the abdomen indicate no definite etiology. There are no findings of typhlitis noted on CT abdomen performed on 01/08/37. I did review also the patient's hyperbilirubinemia which is new as well as cytopenias which are to be expected given his diagnosis of AML and recent completion of induction remission therapy. He is undergoing supportive transfusions for platelet count of 5000 and hemoglobin of 5.5 g/dL. Workup of hyperbilirubinemia has been ordered with direct and indirect bilirubin levels as well as LDH levels. Epigastric pain may be related to severe gastritis or early typhlitis. I have started him on Carafate and IV pantoprazole. I will also start him empirically on Zosyn 4.5 g IV every 8 hours for possible typhlitis. He will be monitored closely. Problem Qualifiers (1) Neutropenia: Fartun Pagan Jan 09, 2017 12:57 Carmine Hemphill MD Jan 09, 2017 13:58
[2017-01-09] MEDS ORDERED: HYDROmorphone HCL PF 2 MG/ML VIAL IV PUSH ONE (13:00)
[2017-01-09 13:27] LABS: BLOOD, URINE NEG (NEG); COMMENT (UR) CULT NOT INDICATED; CULTURE IF INDICATED CULT NOT INDICATED; GLUCOSE,URINE NEG (NEG); KETONE, URINE NEG (NEG); NITRITE,URINE NEG (NEG); PH, URINE 5.5 (5.0-8.5)
[2017-01-09 13:40] LABS: URINE COLOR LIGHT-ORANGE (YELLW/STRAW)
--- NOTE | 2017-01-09 14:38 | HHI.GIFU ---
Subjective Remarks Patient is resting in bed still with severe epigastric pain, some N/V. some loose stools Objective Vitals I&O Vital Signs Date Time Temp Pulse Resp B/P (MAP) Pulse Ox O2 Delivery O2 Flow Rate FiO2 01/09/17 13:21 96.9 107 20 124/58 94 01/09/17 12:51 98.1 110 20 123/55 100 01/09/17 12:30 97.0 111 21 119/56 100 01/09/17 12:11 97.0 108 22 121/57 (78) 100 01/09/17 11:58 97.0 108 22 121/57 100 01/09/17 08:44 97 21 01/09/17 08:41 96.8 109 22 125/59 (81) 98 01/09/17 05:11 96.6 117 18 109/44 (65) 100 01/09/17 04:00 114 01/09/17 00:00 116 01/09/17 00:00 97.4 114 18 115/53 (73) 99 01/08/17 22:15 98.7 113 20 133/58 98 01/08/17 21:53 96.4 109 20 136/62 99 01/08/17 20:30 98 Room Air 01/08/17 20:00 97.6 118 17 130/60 (83) 100 01/08/17 20:00 100 01/08/17 17:05 97.1 101 16 104/49 100 01/08/17 16:21 97.0 97 16 131/53 100 01/08/17 16:00 97.5 93 22 104/49 (67) 100 I/O 01/08/17 01/08/17 01/08/17 01/09/17 01/09/17 01/09/17 06:59 14:59 22:59 06:59 14:59 22:59 Intake Total 250 ml 1660 ml 1470 ml 650 ml 1400 ml Output Total 1000 ml 1000 ml 1000 ml Balance -750 ml 1660 ml 470 ml 650 ml 400 ml Intake Oral 250 ml 960 ml 1200 ml IV Total 1660 ml Packed Cells 500 ml 650 ml Platelets 200 ml Blood Product IV Normal Saline Flush 10 ml Output Urine Total 1000 ml 1000 ml 1000 ml # Voids 3 # Bowel Movements 1 1 Laboratory Laboratory Tests Test 01/09/17 05:23 01/09/17 12:55 White Blood Count 0.3 Red Blood Count 1.86 Hemoglobin 5.9 Hematocrit 16.9 Mean Corpuscular Volume 90.5 Mean Corpuscular Hemoglobin 31.6 Mean Corpuscular Hemoglobin Concent 34.9 Red Cell Distribution Width 16.2 Platelet Count 5 Mean Platelet Volume 7.8 Neutrophils (%) (Auto) 3.1 Lymphocytes (%) (Auto) 80.3 Monocytes (%) (Auto) 16.2 Eosinophils (%) (Auto) 0.4 Basophils (%) (Auto) 0.0 Neutrophils # (Auto) 0.0 Lymphocytes # (Auto) 0.2 Monocytes # (Auto) 0.0 Eosinophils # (Auto) 0.0 Basophils # (Auto) 0.0 CBC Comment AUTO DIFF Differential Total Cells Counted 25 Lymphocytes % 96 Monocytes % 4 Neutrophils # (Manual) 0.0 Differential Comment FINAL DIFF MANUAL Platelet Estimate RARE Platelet Morphology Comment NORMAL Red Cell Morphology Comment NORMAL Blood Urea Nitrogen 15 Creatinine 0.60 Random Glucose 92 Total Protein 4.6 Albumin 1.8 Calcium Level 6.7 Phosphorus Level 3.0 Magnesium Level 2.2 Uric Acid 1.4 Alkaline Phosphatase 31 Aspartate Amino Transf (AST/SGOT) 4 Alanine Aminotransferase (ALT/SGPT) 24 Total Bilirubin 4.0 Sodium Level 135 Potassium Level 3.7 Chloride Level 99 Carbon Dioxide Level 28.0 Anion Gap 8 Estimat Glomerular Filtration Rate 166 Protein Corrected Calcium 8.0 Lactate Dehydrogenase 109 Amylase Level 10 Lipase 41 Urine Color LIGHT-ORANGE Urine Turbidity CLEAR Urine pH 5.5 Urine Specific [place] 1.028 Urine Protein TRACE Urine Glucose (UA) NEG Urine Ketones NEG Urine Occult Blood NEG Urine Nitrite NEG Urine Bilirubin SMALL Urine Urobilinogen LESS THAN 2.0 Urine Leukocyte Esterase NEG Urine RBC LESS THAN 1 Urine WBC 3 Microscopic Urinalysis Comment CULT NOT INDICATED Date/Time Source Procedure Growth Status 12/29/16 22:47 Blood Peripheral Aerobic Blood Culture - Final NO GROWTH IN 5 DAYS Complete 12/29/16 22:47 Blood Peripheral Anaerobic Blood Culture - Final NO GROWTH IN 5 DAYS Complete 12/26/16 17:10 Cerebral Spinal Fluid Lumbar Puncture Acid Fast Stain - Final NO ACID FAST BACILLI SEEN Resulted 12/26/16 17:10 Cerebral Spinal Fluid Lumbar Puncture Mycobacterial Culture - Preliminary NO GROWTH IN 2 WEEKS Resulted 01/08/17 11:48 Stool Stool Cryptosporidium Exam Pending Resulted 01/08/17 11:48 Stool Stool Stool Pus (SUNDAR) - Final RARE WBC Resulted 01/08/17 11:48 Stool Stool Giardia Antigen (SUNDAR) Pending Resulted 12/28/16 17:50 Bronchial Washings Left Lower Lobe Fungal Smear - Final NO FUNGAL ELEMENTS SEEN. Resulted 12/28/16 17:50 Bronchial Washings Left Lower Lobe Fungal Culture - Preliminary NO GROWTH IN 1 WEEK Resulted 12/31/16 00:50 Urine Random Urine Legionella Antigen - Final PRESUMPTIVE NEGATIVE FOR LEGIONELLA P... Complete 12/31/16 00:50 Urine Random Urine Streptococcus pneumoniae Antigen (M - Final PRESUMPTIVE NEGATIVE FOR STREPTOCOCCU... Complete Imaging Last Impressions Hepatobiliary Scan Nuclear Medicine 01/09/17 0000 Signed Impressions: Service Date/Time: Monday, January 09, 2017 10:01 - CONCLUSION: 1. The patient refused imaging beyond 45 minutes. There is activity seen within small bowel and gallbladder with no evidence for cystic duct obstruction. Danie Kelly MD Abdomen/Pelvis CT 01/08/17 0000 Signed Impressions: Service Date/Time: Sunday, January 08, 2017 14:43 - CONCLUSION: 1. No evidence of mesenteric artery stenosis 2. Small amount of free fluid is present in the pelvis Humza Decker MD Abdomen Ultrasound 01/07/17 0000 Signed Impressions: Service Date/Time: December 01:11 - CONCLUSION: 1. No acute findings. Liver enlarged. Spleen mildly prominent at 14 cm. Leander Fiore MD Chest X-Ray 01/03/17 0600 Signed Impressions: Service Date/Time: Tuesday, January 03, 2017 04:42 - CONCLUSION: Normal examination. Right IJ [id number] catheter in excellent position. Lungs are clear. Enrique Ramos MD Port Line Insertion 12/31/16 0000 Signed Impressions: Service Date/Time: December 15:15 - CONCLUSION: Uncomplicated ultrasound and fluoroscopic guided implanted central venous port catheter placement as described in detail above. An 8 [employer] port was placed. Nilson Bonner MD Gated Heart Nuclear Medicine 12/30/16 0000 Signed Impressions: Service Date/Time: Friday, December 30, 2016 13:16 - CONCLUSION: Negative exam. Calculated ejection fraction of 56%% with adequate wall motion throughout. Bean Dugan MD Bone Biopsy CT 12/28/16 0000 Signed Impressions: Service Date/Time: Wednesday, December 28, 2016 16:53 - CONCLUSION: 1. Uncomplicated CT guided bone marrow aspirate. 2. Uncomplicated CT guided bone marrow biopsy. Grant Jones MD Brain MRI 12/27/16 0000 Signed Impressions: Service Date/Time: Tuesday, December 27, 2016 21:58 - CONCLUSION: Unremarkable study. Patricia Contreras MD Lumbar Puncture Fluoroscopy 12/26/16 0000 Signed Impressions: Service Date/Time: Monday, December 26, 2016 17:03 - CONCLUSION: Uncomplicated fluoroscopically guided lumbar puncture with pressures as above. Nilson Bonner MD Chest CT 12/26/16 0000 Signed Impressions: Service Date/Time: Monday, December 26, 2016 17:45 - CONCLUSION: Bibasilar air space process characteristic of pneumonia. Patricia Contreras MD Head CT 12/25/161940 Signed Impressions: Service Date/Time: Sunday, December 25, 2016 19:50 - CONCLUSION: Negative noncontrast head CT. Audie Maria MD Physical Exam HEENT: normocephalic; atraumatic; no jaundice. NECK: Neck is supple, no JVD, no lymphadenopathy. CHEST: Chest is clear to auscultation and percussion. CARDIAC: Regular rate and rhythm with no murmur gallop or rubs. ABDOMEN: Soft, obese, nondistended, epigastric pain; no hepatosplenomegaly; bowel sounds are present in all four quadrants. EXTREMITIES: No clubbing, cyanosis, or edema. SKIN: Normal; no rash; no jaundice. VISITOR SERVICES COORDINATOR: No focal deficits; alert and oriented times three. Assessment and Plan Plan ASSESSMENT - abd pain - unclear etiology. CT showing splenic infarct. CTA no mesenteric ischemia, sm amt free fluid pelvis. HIDA ( pt refused imaging beyond 45 min) but negative for cystic duct obstruction - diarrhea - c diff neg - acute myeloid leukemia, oncology following, induction therapy PLAN - SAMANTHA - cont.protonix to BID - Carafate was added by oncology, cont. - EGD when counts improved, if pain not resolved - supportive care This pt seen by myself and Dr Rosas and this note is written on his behalf Yani Chavez 2, 2017 14:38
[2017-01-09] MEDS: PANTOPRAZOLE SODIUM 40 MG VIAL IV PUSH SCH ×2 (15:24→21:03)
[2017-01-09] MEDS: SUCRALFATE 1 GM/10 ML CUP PO SCH ×2 (15:25→21:03)
[2017-01-09] MEDS: PIPERACIL-TAZO 4.5 GM PREMIX 100 ML IV SCH ×2 (15:25→22:55)
[2017-01-09 15:51] LABS: INDIRECT BILIRUBIN 2.7 MG/DL (0.0-0.8); TOTAL BILIRUBIN ADULT 3.9 MG/DL (0.2-1.0)
[2017-01-09 16:17] LABS: APTT (PATIENT) 36.4 SEC (24.3-30.1); INTERNATIONAL NORMALIZED RATIO 1.1 RATIO; PROTHROMBIN TIME - PATIENT 12.7 SEC (9.8-11.6)
--- NOTE | 2017-01-09 16:43 | HHI.PR ---
Subjective Remarks Patient states that his abdominal pain is controlled with Dilaudid only when he gets it. Says that he feels tingling on the lateral aspects of bilateral thighs , does confirm that he is in bed quite a lot. Discussed with nursing, no acute reports otherwise. Objective Vital Signs Date Time Temp Pulse Resp B/P (MAP) Pulse Ox O2 Delivery O2 Flow Rate FiO2 01/09/17 16:19 97.7 110 20 110/51 (70) 97 01/09/17 16:13 97.7 109 16 110/51 99 01/09/17 15:41 97.3 116 20 110/49 100 01/09/17 13:21 96.9 107 20 124/58 94 01/09/17 12:51 98.1 110 20 123/55 100 01/09/17 12:30 97.0 111 21 119/56 100 01/09/17 12:11 97.0 108 22 121/57 (78) 100 01/09/17 11:58 97.0 108 22 121/57 100 01/09/17 08:44 97 21 01/09/17 08:41 96.8 109 22 125/59 (81) 98 01/09/17 05:11 96.6 117 18 109/44 (65) 100 01/09/17 04:00 114 01/09/17 00:00 116 01/09/17 00:00 97.4 114 18 115/53 (73) 99 01/08/17 22:15 98.7 113 20 133/58 98 01/08/17 21:53 96.4 109 20 136/62 99 01/08/17 20:30 98 Room Air 01/08/17 20:00 97.6 118 17 130/60 (83) 100 01/08/17 20:00 100 01/08/17 17:05 97.1 101 16 104/49 100 I/O 01/08/17 01/08/17 01/08/17 01/09/17 01/09/17 01/09/17 06:59 14:59 22:59 06:59 14:59 22:59 Intake Total 250 ml 1660 ml 1470 ml 650 ml 1400 ml 400 ml Output Total 1000 ml 1000 ml 1000 ml Balance -750 ml 1660 ml 470 ml 650 ml 400 ml 400 ml Intake Oral 250 ml 960 ml 1200 ml IV Total 1660 ml Packed Cells 500 ml 650 ml 400 ml Platelets 200 ml Blood Product IV Normal Saline Flush 10 ml Output Urine Total 1000 ml 1000 ml 1000 ml # Voids 3 # Bowel Movements 1 1 Result Diagram: 01/09/1752201/09/17522 Objective Remarks GENERAL: Lying in bed relatively still, awake and alert RESPIRATORY: No crackles heard anteriorly, clear breath sounds otherwise, not coughing MSCULOSKELETAL: No cyanosis, or edema. GI: soft, ND, BS+ A/P Assessment and Plan 1. Neutropenic fever: Fever component has resolved fortunately. Off of antibiotics, monitoring for fever per IDs recommendations. Negative blood cultures and CSF cultures and bronchial alveolar lavage as well 2. Neutropenia - secondary to AML . See treatment below 3. AML - heme/onc managing with induction therapy 4. 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 5. Abdominal pain - splenic infarcts likely contributing, still has what I think is an additional source from his right side of his abdomen which could be peptic ulcer disease or gallbladder, HIDA shows no significant abnormalities. CTA Abd showing no signs of occlusive atherosclerosis, C.diff negative. On IV Dilaudid for this. Initial stool occults were negative in late January, neck stool occult is pending. Unable to tolerate EGD at this time due to low platelets. agree w/ carafate, protonix, and abx. WILL ALSO ORDER H.PYLORI ANTIGEN. 6. thrombocytopenia - 2/2 AML, transfuse as needed 6. 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
[2017-01-09 19:43] LABS: HEMATOCRIT 21.4 % (39.0-51.0)
[2017-01-09 19:45] LABS: REVIEW FLAG FINAL
[2017-01-10] VITALS (18 sets, daily range): BP systolic 100–128; BP diastolic 49–60; PULSE 74–117; RESP 16–23; TEMP 96.6–100.2; O2SAT 94–99
[2017-01-10] MEDS: HYDROmorphone HCL PF 2 MG/ML VIAL IV PRN ×8 (00:03→22:47)
[2017-01-10] MEDS: PIPERACIL-TAZO 4.5 GM PREMIX 100 ML IV SCH ×3 (06:28→22:48)
[2017-01-10] MEDS: SUCRALFATE 1 GM/10 ML CUP PO SCH ×4 (06:28→19:54)
[2017-01-10 06:45] LABS: HEMO FLAGS AUTO DIFF; MEAN CELL VOLUME 90.3 FL (80.0-100.0); MEAN CORPUSCULAR HEMOGLOBIN 31.3 PG (27.0-34.0); MEAN CORPUSCULAR HGB CONC 34.6 % (32.0-36.0); RED BLOOD COUNT 2.16 MIL/MM3 (4.50-5.90); RED CELL DISTRIBUTION WIDTH 15.3 % (11.6-17.2); WHITE BLOOD COUNT 0.2 TH/MM3 (4.0-11.0)
[2017-01-10 06:47] LABS: HEMATOCRIT 19.5 % (39.0-51.0); PLATELET COUNT 5 TH/MM3 (150-450)
[2017-01-10 07:16] LABS: ALKALINE PHOSPHATASE 33 U/L (45-117); ALT (GPT) 19 U/L (12-78); ANION GAP 6 MEQ/L (5-15); AST (GOT) LESS THAN 3 U/L (15-37); BLOOD UREA NITROGEN 13 MG/DL (7-18); CALCIUM-PROTEIN CORRECTED 7.8 MG/DL (8.5-10.1); CHLORIDE 98 MEQ/L (98-107); GLOMERULAR FILTRATION RATE 183 ML/MIN (>89); LDH SERUM 94 U/L (87-241); POTASSIUM 3.7 MEQ/L (3.5-5.1); SODIUM (NA) 134 MEQ/L (136-145)
[2017-01-10] MEDS ORDERED: SODIUM CHLOR 0.9% 250 ML INJ 250 ML IV ONE (08:00)
[2017-01-10 08:31] LABS: PLATELET ESTIMATE SMEAR RARE (NORMAL); PLATELET MORPHOLOGY NORMAL (NORMAL); SCAN/DIFF FINAL DIFF MANUAL; WBC DIFF SAMPLE 25
[2017-01-10] MEDS: SODIUM CHLORIDE 0.9% FLUSH 10 ML FLUSH IV FLUSH SCH ×2 (09:00→19:44)
[2017-01-10] MEDS: ALLOPURINOL 100 MG TAB PO SCH (09:38)
[2017-01-10] MEDS: diphenhydrAMINE HCL 25 MG CAP PO PRN ×2 (09:39→13:25)
[2017-01-10] MEDS: ACETAMINOPHEN 325 MG TAB PO PRN ×2 (09:39→13:25)
[2017-01-10] MEDS: PANTOPRAZOLE SODIUM 40 MG VIAL IV PUSH SCH ×2 (09:39→19:54)
[2017-01-10] MEDS: DICYCLOMINE HCL 20 MG TAB PO SCH (09:52)
[2017-01-10] MEDS: MUPIROCIN 2% OINT 22 GM TUBE TOPICAL SCH ×3 (09:53→18:04)
[2017-01-10] MEDS: Hickman Catheter Daily NS Lock Flush IV FLUSH SCH (09:53)
--- NOTE | 2017-01-10 10:07 | PD.ONC.PN ---
Subjective Subjective Remarks Afebrile overnight. Patient stilll with persistent epigastric abdominal pain. Stool tested positive for occult blood, but patient still with no obvious bleeding. Says he feels the pain is very slightly improved today. still requiring dilaudid every three hours. Objective Data Date Time Temp Pulse Resp B/P (MAP) Pulse Ox O2 Delivery O2 Flow Rate FiO2 01/10/17 08:28 98.1 108 22 117/52 (73) 98 01/10/17 07:34 Room Air 01/10/17 04:00 96.7 107 18 103/52 (69) 96 01/10/17 04:00 103 01/10/17 00:00 102 01/10/17 00:00 97.3 111 18 115/55 (75) 97 01/09/17 22:50 94 21 01/09/17 21:00 Room Air 01/09/17 20:00 119 01/09/17 20:00 99.4 137 20 121/53 (75) 98 01/09/17 18:17 96.6 117 20 106/46 93 01/09/17 16:19 97.7 110 20 110/51 (70) 97 01/09/17 16:13 97.7 109 16 110/51 99 01/09/17 16:00 113 01/09/17 15:41 97.3 116 20 110/49 100 01/09/17 13:21 96.9 107 20 124/58 94 01/09/17 12:51 98.1 110 20 123/55 100 01/09/17 12:30 97.0 111 21 119/56 100 01/09/17 12:11 97.0 108 22 121/57 (78) 100 01/09/17 12:08 111 01/09/17 11:58 97.0 108 22 121/57 100 Result Diagram: 01/10/17 0630 01/10/17 0630 Laboratory Results Laboratory Tests Test 01/09/17 12:55 01/09/17 15:30 01/09/17 19:20 01/09/17 19:57 Urine Color LIGHT-ORANGE Urine Turbidity CLEAR Urine pH 5.5 Urine Specific [place] 1.028 Urine Protein TRACE mg/dL Urine Glucose (UA) NEG mg/dL Urine Ketones NEG mg/dL Urine Occult Blood NEG Urine Nitrite NEG Urine Bilirubin SMALL Urine Urobilinogen LESS THAN 2.0 MG/DL Urine Leukocyte Esterase NEG Urine RBC LESS THAN 1 /hpf Urine WBC 3 /hpf Microscopic Urinalysis Comment CULT NOT INDICATED Prothrombin Time 12.7 SEC Prothromb Time International Ratio 1.1 RATIO Activated Partial Thromboplast Time 36.4 SEC Fibrinogen 466 mg/dL Hemoglobin 7.6 GM/DL Hematocrit 21.4 % Test 01/10/17 06:30 White Blood Count 0.2 TH/MM3 Red Blood Count 2.16 MIL/MM3 Hemoglobin 6.8 GM/DL Hematocrit 19.5 % Mean Corpuscular Volume 90.3 FL Mean Corpuscular Hemoglobin 31.3 PG Mean Corpuscular Hemoglobin Concent 34.6 % Red Cell Distribution Width 15.3 % Platelet Count 5 TH/MM3 Mean Platelet Volume 7.1 FL CBC Comment AUTO DIFF Differential Total Cells Counted 25 Lymphocytes % 96 % Monocytes % 4 % Neutrophils # (Manual) 0.0 TH/MM3 Differential Comment FINAL DIFF MANUAL Platelet Estimate RARE Platelet Morphology Comment NORMAL Fibrinogen 531 mg/dL Blood Urea Nitrogen 13 MG/DL Creatinine 0.55 MG/DL Random Glucose 104 MG/DL Total Protein 4.8 GM/DL Albumin 1.7 GM/DL Calcium Level 6.6 MG/DL Alkaline Phosphatase 33 U/L Aspartate Amino Transf (AST/SGOT) LESS THAN 3 U/L Alanine Aminotransferase (ALT/SGPT) 19 U/L Lactate Dehydrogenase 94 U/L Total Bilirubin 3.0 MG/DL Sodium Level 134 MEQ/L Potassium Level 3.7 MEQ/L Chloride Level 98 MEQ/L Carbon Dioxide Level 30.0 MEQ/L Anion Gap 6 MEQ/L Estimat Glomerular Filtration Rate 183 ML/MIN Protein Corrected Calcium 7.8 MG/DL Culture Results Microbiology Date/Time Source Procedure Growth Status 01/09/17 19:57 Stool Stool Stool Occult Blood (SUNDAR) - Final HEMOCCULT POSITIVE Complete 01/08/17 11:48 Stool Stool Cryptosporidium Exam Pending Resulted 01/08/17 11:48 Stool Stool Stool Pus (SUNDAR) - Final RARE WBC Resulted 01/08/17 11:48 Stool Stool Giardia Antigen (SUNDAR) Pending Resulted 01/08/17 11:48 Stool Stool - Final NO ENTERIC PATHOGENS DETECTED BY PCR... Complete Administered Medications Medications (Trade) Dose Ordered Sig/Emma Route PRN Reason Start Time Stop Time Status Last Admin Dose Admin Sodium Chloride (NS Flush) 2 ml UNSCH PRN IV FLUSH FLUSH AFTER USING IV ACCESS 12/25/16 23:00 12/30/16 04:59 Sodium Chloride (NS Flush) 2 ml BID IV FLUSH 12/26/16 09:00 01/09/17 09:27 Acetaminophen (Tylenol) 650 mg Q6H PRN PO FEVER>100.4 12/25/16 23:00 01/10/17 09:39 Benzonatate (Tessalon) 100 mg Q4H PRN PO COUGH 12/26/16 05:15 12/26/16 15:12 Promethazine HCl/ Codeine (Phenergan-Codeine Liq) 5 ml Q4H PRN PO COUGH 12/26/16 20:00 12/31/16 17:09 Diphenhydramine HCl (Benadryl) 25 mg Q4H PRN PO SEE LABEL COMMENTS 12/27/16 04:15 01/10/17 09:39 Acetaminophen (Tylenol) 650 mg Q4H PRN PO SEE LABEL COMMENTS 12/27/16 04:15 01/09/17 15:23 Mupirocin (Bactroban 2% Oint) 1 applic TID TOPICAL 12/27/16 14:15 01/10/17 09:53 Sodium Chloride (NS Flush) 5 ml DAILY IV FLUSH 12/30/16 09:00 01/10/17 09:53 Heparin Sodium (Porcine) (Heparin Central Flush) 500 units UNSCH PRN IV FLUSH SEE PROTOCOL TABLE 12/30/16 06:30 12/31/16 15:45 Promethazine HCl (Phenergan) 25 mg Q4H PRN PO nausea or vomitting 01/04/17 10:15 01/08/17 20:34 Dicyclomine HCl (Bentyl) 20 mg TID PO 01/05/17 10:00 01/10/17 09:52 Allopurinol (Zyloprim) 200 mg DAILY PO 01/06/17 09:00 01/10/17 09:38 Hyoscyamine Sulfate (Levsin) 0.25 mg Q4H PRN PO CRAMPS 01/06/17 09:30 01/06/17 10:06 Sodium Chloride 1,000 ml @ 75 mls/hr [id number] IV 01/07/17 14:00 01/09/17 21:28 Hydromorphone HCl (Dilaudid Pf Inj) 2 mg Q3H PRN IV PAIN SCALE 1 TO 10 01/09/17 14:45 01/10/17 09:39 Pantoprazole Sodium (Protonix Inj) 40 mg Q12HR IV PUSH 01/09/17 14:00 01/10/17 09:39 Sucralfate (Carafate Liq) 1 gm ACHS PO 01/09/17 16:00 01/10/17 06:28 Piperacillin Sod/ Tazobactam Sod 100 ml @ 200 mls/hr Q8H IV 01/09/17 15:00 01/10/17 06:28 Objective Remarks GENERAL: Young man, supine in bed. appears more comfortable today. SKIN: Warm and dry. petechiae along abdomen. HEAD: Normocephalic. EYES: No injection or drainage. NECK: Supple, trachea midline. CARDIOVASCULAR: Regular rate and rhythm RESPIRATORY: Breath sounds equal bilaterally. No accessory muscle use. GASTROINTESTINAL: soft, tender in epigastrium. + BS MUSCULOSKELETAL: No cyanosis NEURO: aox3. 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 Patients with rearrangement of CBFB in AML may have a higher risk of SPORTING GOODS SALES ASSOCIATE involvement at diagnosis or at relapse than patients with other types of AML. Inversion 16 or t(16;16), with or without additional chromosome abnormalities, has been associated with complete remission and improved long-term survival. - MUGA scan shows normal EF and no wall motion abnormalities 12/30/2016 - Port placement by IR completed 12/31/16 - Induction chemotherapy started 12/31-- 7+3 regimen with Daunorubicin 90mg/m2 and Cytaribine 100mg/m2-- Dosing capped at BSA of 2 - CMV negative, HIV and Hep B and C negative 12/31 Day 1: Daunorubicin and Cytarabine 01/01 Day 2: Daunorubicin and Cytarabine 01/02 Day 3: Daunorubicin and Cytarabine 01/03 Day 4: Cytarabine 01/04 Day 5: Cytarabine 01/05 Day 6: Cytarabine 01/06 Day 7: Cytarabine 01/07 Day 8: Last bag cytarabine infusing; will finish approx. 3am. Transfuse 1 unit irr. platelets, 1 unit irr. PRBC's. 01/08: D9. abdominal pain persistent. 2 units pRBC 01/09: D10. 2 additional units pRBC ordered. 1 unit platelets ordered 01/10: D11. 2 units pRBC. 1 unit platelets. + stool hemoccult (2) Neutropenia ICD Codes: D70.9 - Neutropenia, unspecified Status: Acute Plan: -- ID following -- All Abx stopped; monitor for fevers. -- BC on 12/25 = no growth. -- Bronchoscopy on 12/28= no growth. -- BC on 12/29= no growth. (3) Abdominal pain ICD Codes: R10.9 - Unspecified abdominal pain Plan: -- Epigastric area pain -- Amylase, lipase WNL -- CT abdomen/ pelvis shows splenic infarcts; --CTA abdomen shows no mesenteric emboli --Abdominal U/S: shows no acute findings. enlarged liver and spleen. --GI following --on Protonix, Carafate, Bentyl, Zosyn +stool hemoccult (4) Pancytopenia ICD Codes: D61.818 - Other pancytopenia Plan: - Check Fibrinogen every other day - Transfuse to keep platelets > 10 - Will need irradiated CMV negative blood products -- transfuse to keep Hb > 7 (5) GIB (gastrointestinal bleeding) ICD Codes: K92.2 - Gastrointestinal hemorrhage, unspecified Plan: --+ stool hemoccult on 01/09/17 --on Protonix + Carafate --unable to perform EGD until counts stabilize. --monitor serial H/H, transfuse as needed Assessment 26 y/o male with no major past medical history who was brought in for headache, confusion and cough. Plan 1. give 2 units pRBC, 1 unit platelets. check CBC this afternoon. 2. continue Protonix, carafate 3. continue Zosyn Attending Statement The exam, history, and the medical decision-making described in the above note were completed with the assistance of the mid-level provider. I reviewed and agree with the findings presented. I attest that I had a [id number] encounter with the patient on the same day, and personally performed and documented my assessment and findings in the medical record. Pt was seen and examined, VS, labs, medications reviewed. He continues to have Mid abd/epigastric pain, the pain is improved when compared to yesterday. He says the pain is between a 4/10 and 8/10 today as compared to 10/10 the day prior. He continues to have diarrhea, appetite remains poor. He also reports pain in his joints and in particular pain in the ankles. S/p 2 units pRBCs today with good response to transfusion; a normal LDH level and elevated haptoglobin level would imply he is not hemolyzing, however his indirect bili was elevated yesterday. As of today the total Bili level is declining. Repeat PLT count a few hrs post transfusion remains unchanged. HLA matched PLTs ordered. His stool heme occult has been positive, but the stools have been brown. Very complicated case. Sever ABD pain is not explained, he may have severe gastritis with resultant bleeding and drop in H&H with resultant hyperbilirubinemia. He has been started on Carafate and IV PPIs. GI will not scope him with his current level of cytopenias. If he continues to have a drop in his H&H a bleeding scan may be needed localize a bleed. HLA matched plts ordered. Monitor closely. If his H&H drops acutely, transfuse unmatched PLTs if HLA matched PLTs are not available and get a nuc med bleeding scan. Problem Qualifiers (1) Neutropenia: Fartun Pagan Jan 10, 2017 10:07 Carmine Hemphill MD Jan 10, 2017 20:44
--- NOTE | 2017-01-10 12:46 | HHI.GIFU ---
Subjective Remarks Lying in bed, in no apparent distress. Continues to have significant epigastric pain. Reports nausea, but no emesis in 2 days. Has loose stools. Tolerating diet. Currently getting blood transfusion. Objective Vitals I&O Vital Signs Date Time Temp Pulse Resp B/P (MAP) Pulse Ox O2 Delivery O2 Flow Rate FiO2 01/10/17 11:14 98.2 113 16 115/52 99 01/10/17 10:45 97.7 117 16 100/49 99 01/10/17 10:18 96.6 112 20 106/51 97 01/10/17 08:28 98.1 108 22 117/52 (73) 98 01/10/17 07:48 113 01/10/17 07:34 Room Air 01/10/17 04:00 96.7 107 18 103/52 (69) 96 01/10/17 04:00 103 01/10/17 00:00 102 01/10/17 00:00 97.3 111 18 115/55 (75) 97 01/09/17 22:50 94 21 01/09/17 21:00 Room Air 01/09/17 20:00 119 01/09/17 20:00 99.4 137 20 121/53 (75) 98 01/09/17 18:17 96.6 117 20 106/46 93 01/09/17 16:19 97.7 110 20 110/51 (70) 97 01/09/17 16:13 97.7 109 16 110/51 99 01/09/17 16:00 113 01/09/17 15:41 97.3 116 20 110/49 100 01/09/17 13:21 96.9 107 20 124/58 94 01/09/17 12:51 98.1 110 20 123/55 100 I/O 01/09/17 01/09/17 01/09/17 01/10/17 01/10/17 01/10/17 07:00 15:00 23:00 07:00 15:00 23:00 Intake Total 650 ml 1400 ml 800 ml Output Total 1000 ml Balance 650 ml 400 ml 800 ml Intake Oral 1200 ml Packed Cells 650 ml 800 ml Platelets 200 ml Output Urine Total 1000 ml # Voids 1 # Bowel Movements 1 1 Laboratory Laboratory Tests Test 01/09/17 12:55 01/09/17 15:30 01/09/17 19:20 9/2/17 19:57 Urine Color LIGHT-ORANGE Urine Turbidity CLEAR Urine pH 5.5 Urine Specific [place] 1.028 Urine Protein TRACE Urine Glucose (UA) NEG Urine Ketones NEG Urine Occult Blood NEG Urine Nitrite NEG Urine Bilirubin SMALL Urine Urobilinogen LESS THAN 2.0 Urine Leukocyte Esterase NEG Urine RBC LESS THAN 1 Urine WBC 3 Microscopic Urinalysis Comment CULT NOT INDICATED Prothrombin Time 12.7 Prothromb Time International Ratio 1.1 Activated Partial Thromboplast Time 36.4 Fibrinogen 466 Hemoglobin 7.6 Hematocrit 21.4 Test 01/10/17 06:30 White Blood Count 0.2 Red Blood Count 2.16 Hemoglobin 6.8 Hematocrit 19.5 Mean Corpuscular Volume 90.3 Mean Corpuscular Hemoglobin 31.3 Mean Corpuscular Hemoglobin Concent 34.6 Red Cell Distribution Width 15.3 Platelet Count 5 Mean Platelet Volume 7.1 CBC Comment AUTO DIFF Differential Total Cells Counted 25 Lymphocytes % 96 Monocytes % 4 Neutrophils # (Manual) 0.0 Differential Comment FINAL DIFF MANUAL Platelet Estimate RARE Platelet Morphology Comment NORMAL Fibrinogen 531 Blood Urea Nitrogen 13 Creatinine 0.55 Random Glucose 104 Total Protein 4.8 Albumin 1.7 Calcium Level 6.6 Alkaline Phosphatase 33 Aspartate Amino Transf (AST/SGOT) LESS THAN 3 Alanine Aminotransferase (ALT/SGPT) 19 Lactate Dehydrogenase 94 Total Bilirubin 3.0 Sodium Level 134 Potassium Level 3.7 Chloride Level 98 Carbon Dioxide Level 30.0 Anion Gap 6 Estimat Glomerular Filtration Rate 183 Protein Corrected Calcium 7.8 Date/Time Source Procedure Growth Status 12/29/16 22:47 Blood Peripheral Aerobic Blood Culture - Final NO GROWTH IN 5 DAYS Complete 12/29/16 22:47 Blood Peripheral Anaerobic Blood Culture - Final NO GROWTH IN 5 DAYS Complete 12/26/16 17:10 Cerebral Spinal Fluid Lumbar Puncture Acid Fast Stain - Final NO ACID FAST BACILLI SEEN Resulted 12/26/16 17:10 Cerebral Spinal Fluid Lumbar Puncture Mycobacterial Culture - Preliminary NO GROWTH IN 2 WEEKS Resulted 01/09/17 19:57 Stool Stool Stool Occult Blood (SUNDAR) - Final HEMOCCULT POSITIVE Complete 12/28/16 17:50 Bronchial Washings Left Lower Lobe Fungal Smear - Final NO FUNGAL ELEMENTS SEEN. Resulted 12/28/16 17:50 Bronchial Washings Left Lower Lobe Fungal Culture - Preliminary NO GROWTH IN 1 WEEK Resulted 12/31/16 00:50 Urine Random Urine Legionella Antigen - Final PRESUMPTIVE NEGATIVE FOR LEGIONELLA P... Complete 12/31/16 00:50 Urine Random Urine Streptococcus pneumoniae Antigen (M - Final PRESUMPTIVE NEGATIVE FOR STREPTOCOCCU... Complete Imaging Last Impressions Hepatobiliary Scan Nuclear Medicine 01/09/17 0000 Signed Impressions: Service Date/Time: Monday, January 09, 2017 10:01 - CONCLUSION: 1. The patient refused imaging beyond 45 minutes. There is activity seen within small bowel and gallbladder with no evidence for cystic duct obstruction. Danie Kelly MD Abdomen/Pelvis CT 01/08/17 0000 Signed Impressions: Service Date/Time: Sunday, January 08, 2017 14:43 - CONCLUSION: 1. No evidence of mesenteric artery stenosis 2. Small amount of free fluid is present in the pelvis Humza Decker MD Abdomen Ultrasound 01/07/17 0000 Signed Impressions: Service Date/Time: December 01:11 - CONCLUSION: 1. No acute findings. Liver enlarged. Spleen mildly prominent at 14 cm. Leander Fiore MD Chest X-Ray 01/03/17 0600 Signed Impressions: Service Date/Time: Tuesday, January 03, 2017 04:42 - CONCLUSION: Normal examination. Right IJ Wwquro-r-Spwa catheter in excellent position. Lungs are clear. Enrique Ramos MD Port Line Insertion 12/31/16 0000 Signed Impressions: Service Date/Time: December 15:15 - CONCLUSION: Uncomplicated ultrasound and fluoroscopic guided implanted central venous port catheter placement as described in detail above. An 8 [place] [employer] port was placed. Nilson Bonner MD Gated Heart Nuclear Medicine 12/30/16 0000 Signed Impressions: Service Date/Time: Friday, December 30, 2016 13:16 - CONCLUSION: Negative exam. Calculated ejection fraction of 56%% with adequate wall motion throughout. Bean Dugan MD Bone Biopsy CT 12/28/16 0000 Signed Impressions: Service Date/Time: Wednesday, December 28, 2016 16:53 - CONCLUSION: 1. Uncomplicated CT guided bone marrow aspirate. 2. Uncomplicated CT guided bone marrow biopsy. Grant Jones MD Brain MRI 12/27/16 0000 Signed Impressions: Service Date/Time: Tuesday, December 27, 2016 21:58 - CONCLUSION: Unremarkable study. K. Mendez Shamlou, MD Lumbar Puncture Fluoroscopy 12/26/16 0000 Signed Impressions: Service Date/Time: Monday, December 26, 2016 17:03 - CONCLUSION: Uncomplicated fluoroscopically guided lumbar puncture with pressures as above. Nilson Bonner MD Chest CT 12/26/16 0000 Signed Impressions: Service Date/Time: Monday, December 26, 2016 17:45 - CONCLUSION: Bibasilar air space process characteristic of pneumonia. Patricia Contreras MD Head CT 12/25/16 1941 Signed Impressions: Service Date/Time: Sunday, December 25, 2016 19:50 - CONCLUSION: Negative noncontrast head CT. Audie Maria MD Physical Exam HEENT: Normocephalic; atraumatic; no jaundice. NECK: Neck is supple, no JVD, no lymphadenopathy. CHEST: CTA CARDIAC: RRR with no murmur gallop or rubs. ABDOMEN: Soft, obese, nondistended, epigastric pain; bowel sounds are present x 4 EXTREMITIES: No clubbing, cyanosis, or edema. SKIN: Normal; no rash; no jaundice. PRESSURE CONTROL SUPERVISOR: No focal deficits; alert and oriented x 3. Assessment and Plan Plan ASSESSMENT - Abdominal pain, unclear etiology. Reports epigastric pain. CT showing splenic infarct. CTA no mesenteric ischemia, small amount free fluid pelvis. HIDA (pt refused imaging beyond 45 min) but negative for cystic duct obstruction. - Diarrhea, C diff negative - Acute myeloid leukemia, Oncology following, induction therapy 01/10/17--HH 6.8/19.5. Platelets 5. WBC 0.2. Getting blood transfusion. PLAN - SAMANTHA - Cont. Protonix BID - Cont. Carafate - EGD when stable, if pain not resolved - Monitor HH, transfuse as necessary - Supportive care - Further recommendations to follow based on results of above. Patient seen and examined by Dr. Rosas and myself and this note is written on his behalf. Lani Francisco Jan 10, 2017 12:46
--- NOTE | 2017-01-10 16:07 | HHI.PR ---
Subjective Remarks Follow up on patient with neutropenic fever, AML, abdominal pain. Patient seen and examined today. Receiving second unit of PRBCs. Patient reports his abdominal pain is controlled with current regimen but still requiring IV Dilaudid every 3hrs. He reports various muscle aches and joint pain. He denies any fever or chills. Reports some nausea that is controlled with Zofran and Phenergan. Denies any vomiting. Denies any chest pain or shortness of breath. Denies any urinary difficulties and or dysuria. Reports 2 loose stools daily which is unchanged. Discussed with nursing staff. No acute issues noted. Objective Vitals Vital Signs Date Time Temp Pulse Resp B/P (MAP) Pulse Ox O2 Delivery O2 Flow Rate FiO2 01/10/17 14:43 97.8 106 21 122/56 98 01/10/17 14:42 97.8 106 21 122/56 (78) 98 01/10/17 14:26 97.7 100 20 109/55 96 01/10/17 13:55 97.0 104 20 115/54 94 01/10/17 13:27 97.0 104 20 115/54 94 01/10/17 12:40 100.2 114 23 128/56 99 01/10/17 12:10 111 01/10/17 11:14 98.2 113 16 115/52 99 01/10/17 10:45 97.7 117 16 100/49 99 01/10/17 10:18 96.6 112 20 106/51 97 01/10/17 08:28 98.1 108 22 117/52 (73) 98 01/10/17 07:48 113 01/10/17 07:34 Room Air 01/10/17 04:00 96.7 107 18 103/52 (69) 96 01/10/17 04:00 103 01/10/17 00:00 102 01/10/17 00:00 97.3 111 18 115/55 (75) 97 01/09/17 22:50 94 21 01/09/17 21:00 Room Air 01/09/17 20:00 119 01/09/17 20:00 99.4 137 20 121/53 (75) 98 01/09/17 18:17 96.6 117 20 106/46 93 01/09/17 16:19 97.7 110 20 110/51 (70) 97 01/09/17 16:13 97.7 109 16 110/51 99 I/O 01/09/17 01/09/17 01/09/17 01/10/17 01/10/17 01/10/17 07:00 15:00 23:00 07:00 15:00 23:00 Intake Total 650 ml 1400 ml 800 ml 2032 ml Output Total 1000 ml Balance 650 ml 400 ml 800 ml 2032 ml Intake Oral 1200 ml 1440 ml Packed Cells 650 ml 800 ml 400 ml Platelets 200 ml 192 ml Output Urine Total 1000 ml # Voids 1 1 # Bowel Movements 1 1 1 Result Diagram: 01/10/17 0630 01/10/17 0630 Imaging Last Impressions Hepatobiliary Scan Nuclear Medicine 01/09/17 0000 Signed Impressions: Service Date/Time: Monday, January 09, 2017 10:01 - CONCLUSION: 1. The patient refused imaging beyond 45 minutes. There is activity seen within small bowel and gallbladder with no evidence for cystic duct obstruction. Danie Kelly MD Abdomen/Pelvis CT 01/08/17 0000 Signed Impressions: Service Date/Time: Sunday, January 08, 2017 14:43 - CONCLUSION: 1. No evidence of mesenteric artery stenosis 2. Small amount of free fluid is present in the pelvis Humza Decker MD Abdomen Ultrasound 01/07/17 0000 Signed Impressions: Service Date/Time: December 01:11 - CONCLUSION: 1. No acute findings. Liver enlarged. Spleen mildly prominent at 14 cm. Leander Fiore MD Chest X-Ray 01/03/17 0600 Signed Impressions: Service Date/Time: Tuesday, January 03, 2017 04:42 - CONCLUSION: Normal examination. Right IJ Lohrwa-s-Elkx catheter in excellent position. Lungs are clear. Enrique Ramos MD Port Line Insertion 12/31/16 0000 Signed Impressions: Service Date/Time: December 15:15 - CONCLUSION: Uncomplicated ultrasound and fluoroscopic guided implanted central venous port catheter placement as described in detail above. An 8 [place] [employer] port was placed. Nilson Bonner MD Gated Heart Nuclear Medicine 12/30/16 0000 Signed Impressions: Service Date/Time: Friday, December 30, 2016 13:16 - CONCLUSION: Negative exam. Calculated ejection fraction of 56%% with adequate wall motion throughout. Bean Dugan MD Bone Biopsy CT 12/28/16 0000 Signed Impressions: Service Date/Time: Wednesday, December 28, 2016 16:53 - CONCLUSION: 1. Uncomplicated CT guided bone marrow aspirate. 2. Uncomplicated CT guided bone marrow biopsy. Grant Jones MD Brain MRI 12/27/16 0000 Signed Impressions: Service Date/Time: Tuesday, December 27, 2016 21:58 - CONCLUSION: Unremarkable study. Patricia Contreras MD Lumbar Puncture Fluoroscopy 12/26/16 0000 Signed Impressions: Service Date/Time: Monday, December 26, 2016 17:03 - CONCLUSION: Uncomplicated fluoroscopically guided lumbar puncture with pressures as above. Nilson Bonner MD Chest CT 12/26/16 0000 Signed Impressions: Service Date/Time: Monday, December 26, 2016 17:45 - CONCLUSION: Bibasilar air space process characteristic of pneumonia. Patricia Contreras MD Head CT 12/25/161940 Signed Impressions: Service Date/Time: Sunday, December 25, 2016 19:50 - CONCLUSION: Negative noncontrast head CT. Audie Maria MD Objective Remarks GENERAL: Well-nourished, well-developed obese patient in NAD. Lying flat in hospital bed. Awake and alert. SKIN: Warm and dry. No rash. HEAD: Normocephalic. Atraumatic. EYES: EOMI. No scleral icterus. No injection or drainage. ENT: No nasal bleeding or discharge. Mucous membranes pink and moist. NECK: Supple. Trachea midline. CARDIOVASCULAR: Regular rate and rhythm. S1, S2 noted. No murmur appreciated. RESPIRATORY: No accessory muscle use. Clear to auscultation anteriorly. Breath sounds equal bilaterally. GASTROINTESTINAL: Abdomen soft, nondistended. Diffuse tenderness to palpation worse in upper quadrants and epigastrium. Normoactive bowel sounds x4. MUSCULOSKELETAL: No obvious deformities. Extremities without clubbing, cyanosis , or edema. (+)tenderness to palpation over lower legs and ankles. NEUROLOGICAL: Awake and alert. Normal speech. PSYCHIATRIC: Appropriate mood and affect; insight and judgment normal. Procedures 12/31 Rfktpm-a-Hjuh placement Medications and IVs Current Medications Medications (Trade) Dose Ordered Sig/Emma Route Start Time Stop Time Status Last Admin (NS Flush) 2 ml UNSCH PRN IV FLUSH 12/25/16 23:00 12/30/16 04:59 (NS Flush) 2 ml BID IV FLUSH 12/26/16 09:00 01/09/17 09:27 (Tylenol) 650 mg Q6H PRN PO 12/25/16 23:00 01/10/17 09:39 (Milk Of Magnesia Liq) 30 ml Q12H PRN PO 12/25/16 23:00 (Senokot) 17.2 mg Q12H PRN PO 12/25/16 23:00 (Dulcolax Supp) 10 mg DAILY PRN RECTAL 12/25/16 23:00 (Lactulose Liq) 30 ml DAILY PRN PO 12/25/16 23:00 (Tessalon) 100 mg Q4H PRN PO 12/26/16 05:15 12/26/16 15:12 (Phenergan-Codeine Liq) 5 ml Q4H PRN PO 12/26/16 20:00 12/31/16 17:09 (Benadryl) 25 mg Q4H PRN PO 12/27/16 04:15 01/10/17 13:25 (Tylenol) 650 mg Q4H PRN PO 12/27/16 04:15 01/10/17 13:25 (Bactroban 2% Oint) 1 applic TID TOPICAL 12/27/16 14:15 01/10/17 13:25 (Tums Chew) 500 mg Q6H PRN CHEW 12/28/16 14:00 (NS Flush) 5 ml DAILY IV FLUSH 12/30/16 09:00 01/10/17 09:53 (Heparin Central Flush) 500 units DAILY IV FLUSH 12/30/16 09:00 (NS Flush) 5 ml UNSCH PRN IV FLUSH 12/30/16 06:30 (Heparin Central Flush) 500 units UNSCH PRN IV FLUSH 12/30/16 06:30 12/31/16 15:45 (Heparin Central Flush) 500 units UNSCH IV FLUSH 12/31/16 15:45 (NS Flush) 5 ml UNSCH PRN IVF 12/31/16 15:45 (Heparin Central Flush) 250 units UNSCH PRN IV FLUSH 12/31/16 15:45 (Phenergan) 25 mg Q4H PRN PO 01/04/17 10:15 01/08/17 20:34 (Zyloprim) 200 mg DAILY PO 01/06/17 09:00 01/10/17 09:38 (Levsin) 0.25 mg Q4H PRN PO 01/06/17 09:30 01/06/17 10:06 Sodium Chloride 1,000 ml @ 75 mls/hr [id number] IV 01/07/17 14:00 01/09/17 21:28 (Tylenol) 650 mg Q4H PRN PO 01/08/17 11:30 (Benadryl) 25 mg Q4H PRN PO 01/08/17 11:30 (Dilaudid Pf Inj) 2 mg Q3H PRN IV 01/09/17 14:45 01/10/17 16:49 (Protonix Inj) 40 mg Q12HR IV PUSH 01/09/17 14:00 01/10/17 09:39 (Carafate Liq) 1 gm ACHS PO 01/09/17 16:00 01/10/17 15:13 Piperacillin Sod/ Tazobactam Sod 100 ml @ 200 mls/hr Q8H IV 01/09/17 15:00 01/10/17 15:13 Sodium Chloride 250 ml @ 15 mls/hr ONCE ONCE IV 01/10/17 08:00 01/11/17 00:39 01/10/17 10:20 A/P Problem List: (1) SIRS (systemic inflammatory response syndrome) ICD Code: R65.10 - Systemic inflammatory response syndrome (SIRS) of non- infectious origin without acute organ dysfunction Status: Acute (2) GABRIELA (acute kidney injury) ICD Code: N17.9 - Acute kidney failure, unspecified Status: Acute (3) Thrombocytopenia ICD Code: D69.6 - Thrombocytopenia, unspecified Status: Acute (4) Lymphocytosis ICD Code: D72.820 - Lymphocytosis (symptomatic) Status: Acute (5) Anemia ICD Code: D64.9 - Anemia, unspecified Status: Acute Assessment and Plan 1. Neutropenic fever: Continue monitoring for fever per IDs recommendations. Negative blood cultures and CSF cultures and bronchial alveolar lavage as well 2. Neutropenia - secondary to AML . See treatment below 3. AML - heme/onc managing with induction therapy 4. 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 5. Abdominal pain - splenic infarcts likely contributing. HIDA shows no significant abnormalities. CTA Abd showing no signs of occlusive atherosclerosis , C.diff negative x 2. On IV Dilaudid for this. Initial stool occults were negative in late January, 9/2 hemoccult positive. Unable to tolerate EGD at this time due to low platelets. agree w/ carafate, protonix, and abx. H.PYLORI ANTIGEN pending. Started on Zosyn empirically for possible neutropenic enterocolitis per hem/onc. 6. thrombocytopenia - 2/2 AML, transfuse as needed 7. 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 Diffuse muscle aches/joint pain - likely 2/2 prolonged immobilization. PT/ OT eval/tx. Anjelica Kearney Jan 10, 2017 16:07
[2017-01-10 17:34] LABS: HEMATOCRIT 21.5 % (39.0-51.0); MEAN CELL VOLUME 89.4 FL (80.0-100.0); MEAN CORPUSCULAR HGB CONC 35.8 % (32.0-36.0); RED BLOOD COUNT 2.41 MIL/MM3 (4.50-5.90); RED CELL DISTRIBUTION WIDTH 15.3 % (11.6-17.2); WHITE BLOOD COUNT 0.3 TH/MM3 (4.0-11.0)
[2017-01-10 17:44] LABS: HEMO FLAGS AUTO DIFF
[2017-01-10 17:52] LABS: PLATELET COUNT 4 TH/MM3 (150-450)
[2017-01-10] MEDS: LACTOBACILLUS ACIDOPHILUS TAB PO SCH (18:04)
[2017-01-10] MEDS: SODIUM CHLOR 0.9% 1000 ML INJ 1,000 ML IV SCH ×2 (18:04→21:30)
[2017-01-10 18:06] LABS: PLATELET ESTIMATE SMEAR RARE (NORMAL); PLATELET MORPHOLOGY NORMAL (NORMAL); SCAN/DIFF FINAL DIFF MANUAL; WBC DIFF SAMPLE 10
[2017-01-10 18:26] LABS: HEMATOCRIT 22.1 % (39.0-51.0); MEAN CELL VOLUME 88.5 FL (80.0-100.0); MEAN CORPUSCULAR HEMOGLOBIN 31.9 PG (27.0-34.0); RED CELL DISTRIBUTION WIDTH 14.9 % (11.6-17.2); WHITE BLOOD COUNT 0.3 TH/MM3 (4.0-11.0)
[2017-01-10 18:56] LABS: HEMO FLAGS AUTO DIFF; PLATELET COUNT 4 TH/MM3 (150-450)
[2017-01-10 19:38] LABS: PLATELET ESTIMATE SMEAR RARE (NORMAL); PLATELET MORPHOLOGY NORMAL (NORMAL); SCAN/DIFF FINAL DIFF MANUAL; WBC DIFF SAMPLE 10
--- NOTE | 2017-01-10 22:58 | RADRPT ---
EXAM DATE/TIME: 01/10/2017 21:50 [facility] COMPARISON: No previous studies available for comparison. INDICATIONS : Bilateral leg pain. MEDICAL HISTORY : Lymphocytosis. Neutropenia. Migraine. SURGICAL HISTORY : [place] teeth removed. ENCOUNTER: Initial ACUITY: 2 day PAIN SCORE: 5/10 LOCATION: Bilateral legs. TECHNIQUE: Venous ultrasound of the left and right leg was performed from the inguinal ligament to the proximal calf. Real-time, color Doppler and spectral tracing, compression and augmentation techniques were us ed. FINDINGS: RIGHT LEG: There is normal compressibility of the deep venous system from the inguinal region to the proximal ca lf. No echogenic clot is seen in the lumen of the common femoral, femoral, popliteal, and posterior tibial veins. There is a normal response of the venous system to proximal and distal augmentation an d respiration. LEFT LEG: There is normal compressibility of the deep venous system from the inguinal region to the proximal ca lf. No echogenic clot is seen in the lumen of the common femoral, femoral, popliteal, and posterior tibial veins. There is a normal response of the venous system to proximal and distal augmentation an d respiration. CONCLUSION: Negative exam with no evidence of deep venous thrombosis. Jose Nicholson MD on January 10, 2017 at 22:55 Board Certified Radiologist. This report was verified electronically.
[2017-01-11] VITALS (19 sets, daily range): BP systolic 92–124; BP diastolic 44–68; PULSE 67–134; RESP 18–23; TEMP 96.7–100.2; O2SAT 94–100
[2017-01-11] MEDS: HYDROmorphone HCL PF 2 MG/ML VIAL IV PRN ×5 (01:25→13:34)
[2017-01-11] MEDS: PROMETHAZINE HCL 25 MG TAB PO PRN ×3 (03:32→15:56)
[2017-01-11] MEDS: SUCRALFATE 1 GM/10 ML CUP PO SCH ×4 (06:08→20:01)
[2017-01-11] MEDS: PIPERACIL-TAZO 4.5 GM PREMIX 100 ML IV SCH ×3 (06:09→23:52)
[2017-01-11 06:42] LABS: MEAN CELL VOLUME 88.8 FL (80.0-100.0); MEAN CORPUSCULAR HEMOGLOBIN 31.3 PG (27.0-34.0); MEAN CORPUSCULAR HGB CONC 35.2 % (32.0-36.0); RED BLOOD COUNT 2.28 MIL/MM3 (4.50-5.90); RED CELL DISTRIBUTION WIDTH 14.8 % (11.6-17.2); WHITE BLOOD COUNT 0.2 TH/MM3 (4.0-11.0)
[2017-01-11 06:51] LABS: HEMO FLAGS AUTO DIFF
[2017-01-11 06:53] LABS: HEMATOCRIT 20.2 % (39.0-51.0); PLATELET COUNT 4 TH/MM3 (150-450)
[2017-01-11 07:17] LABS: ALKALINE PHOSPHATASE 33 U/L (45-117); ALT (GPT) 14 U/L (12-78); ANION GAP 5 MEQ/L (5-15); AST (GOT) LESS THAN 3 U/L (15-37); BICARBONATE 29.7 MEQ/L (21.0-32.0); BLOOD UREA NITROGEN 13 MG/DL (7-18); CHLORIDE 99 MEQ/L (98-107); GLOMERULAR FILTRATION RATE 191 ML/MIN (>89); LDH SERUM 95 U/L (87-241); POTASSIUM 3.5 MEQ/L (3.5-5.1); SODIUM (NA) 134 MEQ/L (136-145); TOTAL BILIRUBIN ADULT 2.5 MG/DL (0.2-1.0)
[2017-01-11] MEDS: ALLOPURINOL 100 MG TAB PO SCH (08:05)
[2017-01-11] MEDS: PANTOPRAZOLE SODIUM 40 MG VIAL IV PUSH SCH (08:05)
[2017-01-11] MEDS: LACTOBACILLUS ACIDOPHILUS TAB PO SCH ×3 (08:05→18:11)
[2017-01-11] MEDS: Hickman Catheter Daily NS Lock Flush IV FLUSH SCH (08:06)
[2017-01-11] MEDS: MUPIROCIN 2% OINT 22 GM TUBE TOPICAL SCH ×3 (08:06→18:11)
[2017-01-11] MEDS: SODIUM CHLOR 0.9% 1000 ML INJ 1,000 ML IV SCH ×2 (08:16→23:58)
[2017-01-11] MEDS: SODIUM CHLORIDE 0.9% FLUSH 10 ML FLUSH IV FLUSH SCH ×2 (08:18→19:51)
[2017-01-11 09:35] LABS: OVALOCYTES 1+ (NORMAL); PLATELET ESTIMATE SMEAR RARE (NORMAL); PLATELET MORPHOLOGY NORMAL (NORMAL); SCAN/DIFF FINAL DIFF MANUAL; WBC DIFF SAMPLE 15
--- NOTE | 2017-01-11 09:52 | HHI.PR ---
Subjective Remarks Follow up on patient with neutropenic fever, AML, abdominal pain. Patient seen and examined today. Patient reports persistent unchanged upper abdominal pain. Does report better relief yesterday after receiving Oxycodone 10mg. Still requiring IV Dilaudid. Reports lower legs and ankles feel better today. Doppler study negative for DVT. Patient reports persistent nausea relieved with Zofran and Phenergan. Denies any vomiting. Not eating well. Denies any chest pain or shortness of breath. Discussed with nursing staff. Objective Vitals Vital Signs Date Time Temp Pulse Resp B/P (MAP) Pulse Ox O2 Delivery O2 Flow Rate FiO2 01/11/17 08:48 96.8 105 21 110/51 (70) 99 01/11/17 06:43 97.9 78 18 121/68 (85) 97 01/11/17 04:00 108 01/11/17 00:00 108 01/11/17 00:00 98.8 67 18 108/64 (79) 97 01/10/17 21:17 97.9 74 18 112/60 (77) 97 01/10/17 20:00 109 01/10/17 20:00 Room Air 01/10/17 16:08 96.7 94 20 116/55 98 01/10/17 16:00 92 01/10/17 14:43 97.8 106 21 122/56 98 01/10/17 14:42 97.8 106 21 122/56 (78) 98 01/10/17 14:26 97.7 100 20 109/55 96 01/10/17 13:55 97.0 104 20 115/54 94 01/10/17 13:27 97.0 104 20 115/54 94 01/10/17 12:40 100.2 114 23 128/56 99 01/10/17 12:10 111 01/10/17 11:14 98.2 113 16 115/52 99 01/10/17 10:45 97.7 117 16 100/49 99 01/10/17 10:18 96.6 112 20 106/51 97 I/O 01/10/17 01/10/17 01/10/17 01/11/17 01/11/17 01/11/17 07:00 15:00 23:00 07:00 15:00 23:00 Intake Total 2032 ml 1080 ml 240 ml Balance 2032 ml 1080 ml 240 ml Intake Oral 1440 ml 680 ml 240 ml Packed Cells 400 ml 400 ml Platelets 192 ml # Voids 1 1 1 1 # Bowel Movements 1 1 0 1 Result Diagram: 01/11/1759901/11/17599 Imaging Last Impressions Lower Extremity Ultrasound 01/10/17 0000 Signed Impressions: Service Date/Time: Tuesday, January 10, 2017 21:50 - CONCLUSION: Negative exam with no evidence of deep venous thrombosis. Jose Nicholson MD Hepatobiliary Scan Nuclear Medicine 01/09/17 0000 Signed Impressions: Service Date/Time: Monday, January 09, 2017 10:01 - CONCLUSION: 1. The patient refused imaging beyond 45 minutes. There is activity seen within small bowel and gallbladder with no evidence for cystic duct obstruction. Danie Kelly MD Abdomen/Pelvis CT 01/08/17 0000 Signed Impressions: Service Date/Time: Sunday, January 08, 2017 14:43 - CONCLUSION: 1. No evidence of mesenteric artery stenosis 2. Small amount of free fluid is present in the pelvis Humza Decker MD Abdomen Ultrasound 01/07/17 0000 Signed Impressions: Service Date/Time: December 01:11 - CONCLUSION: 1. No acute findings. Liver enlarged. Spleen mildly prominent at 14 cm. Leander Fiore MD Chest X-Ray 01/03/17 06 Signed Impressions: Service Date/Time: Tuesday, January 03, 2017 04:42 - CONCLUSION: Normal examination. Right IJ [id number] catheter in excellent position. Lungs are clear. Enrique Ramos MD Port Line Insertion 12/31/16 0000 Signed Impressions: Service Date/Time: December 15:15 - CONCLUSION: Uncomplicated ultrasound and fluoroscopic guided implanted central venous port catheter placement as described in detail above. An 8 [employer] port was placed. Nilson Bonner MD Gated Heart Nuclear Medicine 12/30/16 0000 Signed Impressions: Service Date/Time: Friday, December 30, 2016 13:16 - CONCLUSION: Negative exam. Calculated ejection fraction of 56%% with adequate wall motion throughout. Bean Dugan MD Bone Biopsy CT 12/28/16 0000 Signed Impressions: Service Date/Time: Wednesday, December 28, 2016 16:53 - CONCLUSION: 1. Uncomplicated CT guided bone marrow aspirate. 2. Uncomplicated CT guided bone marrow biopsy. Grant Jones MD Brain MRI 12/27/16 0000 Signed Impressions: Service Date/Time: Tuesday, December 27, 2016 21:58 - CONCLUSION: Unremarkable study. Patricia Contreras MD Lumbar Puncture Fluoroscopy 12/26/16 0000 Signed Impressions: Service Date/Time: Monday, December 26, 2016 17:03 - CONCLUSION: Uncomplicated fluoroscopically guided lumbar puncture with pressures as above. Nilson Bonner MD Chest CT 12/26/16 0000 Signed Impressions: Service Date/Time: Monday, December 26, 2016 17:45 - CONCLUSION: Bibasilar air space process characteristic of pneumonia. Patricia Contreras MD Head CT 12/25/161940 Signed Impressions: Service Date/Time: Sunday, December 25, 2016 19:50 - CONCLUSION: Negative noncontrast head CT. Audie Maria MD Objective Remarks GENERAL: Well-nourished, well-developed obese patient who appears somewhat uncomfortable secondary to abdominal pain. Lying flat in hospital bed. Awake and alert. SKIN: Warm and dry. No rash. HEAD: Normocephalic. Atraumatic. EYES: EOMI. No scleral icterus. No injection or drainage. ENT: No nasal bleeding or discharge. Mucous membranes pink and moist. NECK: Supple. Trachea midline. CARDIOVASCULAR: Regular rate and rhythm. S1, S2 noted. No murmur appreciated. RESPIRATORY: No accessory muscle use. Clear to auscultation anteriorly. Breath sounds equal bilaterally. GASTROINTESTINAL: Abdomen soft, nondistended. Diffuse tenderness to palpation worse in upper quadrants and epigastrium. Normoactive bowel sounds x4. MUSCULOSKELETAL: No obvious deformities. Extremities without clubbing, cyanosis , or edema. Bilateral ankles and lower legs nontender to palpation. NEUROLOGICAL: Awake and alert. Normal speech. PSYCHIATRIC: Appropriate mood and affect; insight and judgment normal. Procedures 12/31 [id number] placement Medications and IVs Current Medications Medications (Trade) Dose Ordered Sig/Emma Route Start Time Stop Time Status Last Admin (NS Flush) 2 ml UNSCH PRN IV FLUSH 12/25/16 23:00 12/30/16 04:59 (NS Flush) 2 ml BID IV FLUSH 12/26/16 09:00 01/09/17 09:27 (Tylenol) 650 mg Q6H PRN PO 12/25/16 23:00 01/10/17 09:39 (Milk Of Magnesia Liq) 30 ml Q12H PRN PO 12/25/16 23:00 (Senokot) 17.2 mg Q12H PRN PO 12/25/16 23:00 (Dulcolax Supp) 10 mg DAILY PRN RECTAL 12/25/16 23:00 (Lactulose Liq) 30 ml DAILY PRN PO 12/25/16 23:00 (Tessalon) 100 mg Q4H PRN PO 12/26/16 05:15 12/26/16 15:12 (Phenergan-Codeine Liq) 5 ml Q4H PRN PO 12/26/16 20:00 12/31/16 17:09 (Benadryl) 25 mg Q4H PRN PO 12/27/16 04:15 01/10/17 13:25 (Tylenol) 650 mg Q4H PRN PO 12/27/16 04:15 01/10/17 13:25 (Bactroban 2% Oint) 1 applic TID TOPICAL 12/27/16 14:15 01/11/17 08:06 (Tums Chew) 500 mg Q6H PRN CHEW 12/28/16 14:00 (NS Flush) 5 ml DAILY IV FLUSH 12/30/16 09:00 01/11/17 08:06 (Heparin Central Flush) 500 units DAILY IV FLUSH 12/30/16 09:00 (NS Flush) 5 ml UNSCH PRN IV FLUSH 12/30/16 06:30 (Heparin Central Flush) 500 units UNSCH PRN IV FLUSH 12/30/16 06:30 12/31/16 15:45 (Heparin Central Flush) 500 units UNSCH IV FLUSH 12/31/16 15:45 (NS Flush) 5 ml UNSCH PRN IVF 12/31/16 15:45 (Heparin Central Flush) 250 units UNSCH PRN IV FLUSH 12/31/16 15:45 (Phenergan) 25 mg Q4H PRN PO 01/04/17 10:15 01/11/17 08:15 (Zyloprim) 200 mg DAILY PO 01/06/17 09:00 01/11/17 08:05 (Levsin) 0.25 mg Q4H PRN PO 01/06/17 09:30 01/06/17 10:06 Sodium Chloride 1,000 ml @ 75 mls/hr [id number] IV 01/07/17 14:00 01/11/17 08:16 (Dilaudid Pf Inj) 2 mg Q3H PRN IV 01/09/17 14:45 01/11/17 08:05 (Protonix Inj) 40 mg Q12HR IV PUSH 01/09/17 14:00 01/11/17 08:05 (Carafate Liq) 1 gm ACHS PO 01/09/17 16:00 01/11/17 06:08 Piperacillin Sod/ Tazobactam Sod 100 ml @ 200 mls/hr Q8H IV 01/09/17 15:00 01/11/17 06:09 (Lactinex) 1 tab TID PO 01/10/17 18:00 01/11/17 08:05 A/P Problem List: (1) SIRS (systemic inflammatory response syndrome) ICD Code: R65.10 - Systemic inflammatory response syndrome (SIRS) of non- infectious origin without acute organ dysfunction Status: Acute (2) GABRIELA (acute kidney injury) ICD Code: N17.9 - Acute kidney failure, unspecified Status: Acute (3) Thrombocytopenia ICD Code: D69.6 - Thrombocytopenia, unspecified Status: Acute (4) Lymphocytosis ICD Code: D72.820 - Lymphocytosis (symptomatic) Status: Acute (5) Anemia ICD Code: D64.9 - Anemia, unspecified Status: Acute Assessment and Plan 1. Neutropenic fever: Continue monitoring for fever per IDs recommendations. Afebrile. Blood cultures show no growth in 5 days x 2. CSF cultures and BAL shows no growth. 2. Neutropenia - secondary to AML . See treatment below 3. AML - heme/onc managing with induction therapy 4. 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 s/p transfusion 1 units PRBCs and 2 unit platelets yesterday. H/H 7.1/20.2, plts 4 this am. 5. Abdominal pain - splenic infarcts likely contributing. HIDA shows no significant abnormalities. CTA Abd showing no signs of occlusive atherosclerosis , C.diff negative x 2. On IV Dilaudid for this. Initial stool occults were negative in late January, / hemoccult positive. Unable to tolerate EGD at this time due to low platelets. agree w/ carafate, protonix, and abx. H.PYLORI ANTIGEN pending. Started on Zosyn empirically for possible neutropenic enterocolitis per hem/onc. 6. Diarrhea - stool studies pending. Lactobacillus added to regimen. C diff negative x 2. 7. thrombocytopenia - 2/2 AML, transfuse as needed 8. 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 Prolonged immobilization. Doppler studies negative for DVT. PT/OT eval/tx. IS and acapella use. Anjelica Kearney Jan 11, 2017 09:52
--- NOTE | 2017-01-11 10:56 | PD.ONC.PN ---
Subjective Subjective Remarks continues to have abdominal pain current pain meds not controlling pain spoke with his family has low grade fever no eating much Objective Data Date Time Temp Pulse Resp B/P (MAP) Pulse Ox O2 Delivery O2 Flow Rate FiO2 01/11/17 10:07 Room Air 01/11/17 08:48 96.8 105 21 110/51 (70) 99 01/11/17 06:43 97.9 78 18 121/68 (85) 97 01/11/17 04:00 108 01/11/17 00:00 108 01/11/17 00:00 98.8 67 18 108/64 (79) 97 01/10/17 21:17 97.9 74 18 112/60 (77) 97 01/10/17 20:00 109 01/10/17 20:00 Room Air 01/10/17 16:08 96.7 94 20 116/55 98 01/10/17 16:00 92 01/10/17 14:43 97.8 106 21 122/56 98 01/10/17 14:42 97.8 106 21 122/56 (78) 98 01/10/17 14:26 97.7 100 20 109/55 96 01/10/17 13:55 97.0 104 20 115/54 94 01/10/17 13:27 97.0 104 20 115/54 94 01/10/17 12:40 100.2 114 23 128/56 99 01/10/17 12:10 111 01/10/17 11:14 98.2 113 16 115/52 99 01/11/17 01/11/17 01/11/17 07:00 15:00 23:00 Intake Total 240 ml Balance 240 ml Result Diagram: 01/11/17 0600 01/11/17 0600 Laboratory Results Laboratory Tests Test 01/10/17 17:15 01/10/17 18:05 01/10/17 20:00 01/11/17 06:00 White Blood Count 0.3 TH/MM3 0.3 TH/MM3 0.2 TH/MM3 Red Blood Count 2.41 MIL/MM3 2.50 MIL/MM3 2.28 MIL/MM3 Hemoglobin 7.7 GM/DL 8.0 GM/DL 7.1 GM/DL Hematocrit 21.5 % 22.1 % 20.2 % Mean Corpuscular Volume 89.4 FL 88.5 FL 88.8 FL Mean Corpuscular Hemoglobin 32.0 PG 31.9 PG 31.3 PG Mean Corpuscular Hemoglobin Concent 35.8 % 36.0 % 35.2 % Red Cell Distribution Width 15.3 % 14.9 % 14.8 % Platelet Count 4 TH/MM3 4 TH/MM3 4 TH/MM3 Mean Platelet Volume 8.1 FL 7.7 FL 7.7 FL CBC Comment AUTO DIFF AUTO DIFF AUTO DIFF Differential Total Cells Counted 10 10 15 Lymphocytes % 100 % 100 % 93 % Differential Comment FINAL DIFF MANUAL FINAL DIFF MANUAL FINAL DIFF MANUAL Platelet Estimate RARE RARE RARE Platelet Morphology Comment NORMAL NORMAL NORMAL Red Cell Morphology Comment NORMAL NORMAL Monocytes % 7 % Neutrophils # (Manual) 0.0 TH/MM3 Ovalocytes 1+ Blood Urea Nitrogen 13 MG/DL Creatinine 0.53 MG/DL Random Glucose 102 MG/DL Total Protein 4.6 GM/DL Albumin 1.6 GM/DL Calcium Level 6.7 MG/DL Alkaline Phosphatase 33 U/L Aspartate Amino Transf (AST/SGOT) LESS THAN 3 U/L Alanine Aminotransferase (ALT/SGPT) 14 U/L Lactate Dehydrogenase 95 U/L Total Bilirubin 2.5 MG/DL Sodium Level 134 MEQ/L Potassium Level 3.5 MEQ/L Chloride Level 99 MEQ/L Carbon Dioxide Level 29.7 MEQ/L Anion Gap 5 MEQ/L Estimat Glomerular Filtration Rate 191 ML/MIN Protein Corrected Calcium 8.0 MG/DL Culture Results Microbiology Date/Time Source Procedure Growth Status 01/09/17 19:57 Stool Stool Stool Occult Blood (SUNDAR) - Final HEMOCCULT POSITIVE Complete 01/08/17 11:48 Stool Stool Cryptosporidium Exam Pending Resulted 01/08/17 11:48 Stool Stool Stool Pus (SUNDAR) - Final RARE WBC Resulted 01/08/17 11:48 Stool Stool Giardia Antigen (SUNDAR) Pending Resulted 01/08/17 11:48 Stool Stool - Final NO ENTERIC PATHOGENS DETECTED BY PCR... Complete Administered Medications Medications (Trade) Dose Ordered Sig/Emma Route PRN Reason Start Time Stop Time Status Last Admin Dose Admin Sodium Chloride (NS Flush) 2 ml UNSCH PRN IV FLUSH FLUSH AFTER USING IV ACCESS 12/25/16 23:00 12/30/16 04:59 Sodium Chloride (NS Flush) 2 ml BID IV FLUSH 12/26/16 09:00 01/09/17 09:27 Acetaminophen (Tylenol) 650 mg Q6H PRN PO FEVER>100.4 12/25/16 23:00 01/10/17 09:39 Benzonatate (Tessalon) 100 mg Q4H PRN PO COUGH 12/26/16 05:15 12/26/16 15:12 Promethazine HCl/ Codeine (Phenergan-Codeine Liq) 5 ml Q4H PRN PO COUGH 12/26/16 20:00 12/31/16 17:09 Diphenhydramine HCl (Benadryl) 25 mg Q4H PRN PO SEE LABEL COMMENTS 12/27/16 04:15 01/10/17 13:25 Acetaminophen (Tylenol) 650 mg Q4H PRN PO SEE LABEL COMMENTS 12/27/16 04:15 01/10/17 13:25 Mupirocin (Bactroban 2% Oint) 1 applic TID TOPICAL 12/27/16 14:15 01/11/17 08:06 Sodium Chloride (NS Flush) 5 ml DAILY IV FLUSH 12/30/16 09:00 01/11/17 08:06 Heparin Sodium (Porcine) (Heparin Central Flush) 500 units UNSCH PRN IV FLUSH SEE PROTOCOL TABLE 12/30/16 06:30 12/31/16 15:45 Promethazine HCl (Phenergan) 25 mg Q4H PRN PO nausea or vomitting 01/04/17 10:15 01/11/17 08:15 Allopurinol (Zyloprim) 200 mg DAILY PO 01/06/17 09:00 01/11/17 08:05 Hyoscyamine Sulfate (Levsin) 0.25 mg Q4H PRN PO CRAMPS 01/06/17 09:30 01/06/17 10:06 Sodium Chloride 1,000 ml @ 75 mls/hr [id number] IV 01/07/17 14:00 01/11/17 08:16 Hydromorphone HCl (Dilaudid Pf Inj) 2 mg Q3H PRN IV PAIN SCALE 1 TO 10 01/09/17 14:45 01/11/17 08:05 Pantoprazole Sodium (Protonix Inj) 40 mg Q12HR IV PUSH 01/09/17 14:00 01/11/17 08:05 Sucralfate (Carafate Liq) 1 gm ACHS PO 01/09/17 16:00 01/11/17 06:08 Piperacillin Sod/ Tazobactam Sod 100 ml @ 200 mls/hr Q8H IV 01/09/17 15:00 01/11/17 06:09 Lactobacillus Acidophilus (Lactinex) 1 tab TID PO 01/10/17 18:00 01/11/17 08:05 Objective Remarks GENERAL: acutely ill/no nad SKIN: Warm and dry NECK: Supple, trachea midline. No JVD or lymphadenopathy. LYMPHATIC: No adenopathy. CARDIOVASCULAR: Regular rate and rhythm without murmurs. RESPIRATORY: Breath sounds equal bilaterally. No accessory muscle use. GASTROINTESTINAL: Abdomen soft, mild tenderness mid epigastric region, no rebound, EXTREMITIES: No cyanosis, or edema. 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 Patients with rearrangement of CBFB in AML may have a higher risk of PLUGMAN involvement at diagnosis or at relapse than patients with other types of AML. Inversion 16 or t(16;16), with or without additional chromosome abnormalities, has been associated with complete remission and improved long-term survival. - MUGA scan shows normal EF and no wall motion abnormalities 12/30/2016 - Port placement by IR completed 12/31/16 - Induction chemotherapy started 12/31-- 7+3 regimen with Daunorubicin 90mg/m2 and Cytaribine 100mg/m2-- Dosing capped at BSA of 2 - CMV negative, HIV and Hep B and C negative 12/31 Day 1: Daunorubicin and Cytarabine 01/01 Day 2: Daunorubicin and Cytarabine 01/02 Day 3: Daunorubicin and Cytarabine 01/03 Day 4: Cytarabine 01/04 Day 5: Cytarabine 01/05 Day 6: Cytarabine 8/30 Day 7: Cytarabine 01/07 Day 8: Last bag cytarabine infusing; will finish approx. 3am. Transfuse 1 unit irr. platelets, 1 unit irr. PRBC's. 01/08: D9. abdominal pain persistent. 2 units pRBC 01/09: D10. 2 additional units pRBC ordered. 1 unit platelets ordered 01/10: D11. 2 units pRBC. 1 unit platelets. + stool hemoccult (2) Neutropenia ICD Codes: D70.9 - Neutropenia, unspecified Status: Acute Plan: -- ID following -- All Abx stopped; monitor for fevers. -- BC on 12/25 = no growth. -- Bronchoscopy on 12/28= no growth. -- BC on 12/29= no growth. (3) Abdominal pain ICD Codes: R10.9 - Unspecified abdominal pain Plan: -- Epigastric area pain -- Amylase, lipase WNL -- CT abdomen/ pelvis shows splenic infarcts; --CTA abdomen shows no mesenteric emboli --Abdominal U/S: shows no acute findings. enlarged liver and spleen. --GI following --on Protonix, Carafate, Bentyl, Zosyn +stool hemoccult (4) Pancytopenia ICD Codes: D61.818 - Other pancytopenia Plan: - Check Fibrinogen every other day - Transfuse to keep platelets > 10 - Will need irradiated CMV negative blood products -- transfuse to keep Hb > 7 (5) GIB (gastrointestinal bleeding) ICD Codes: K92.2 - Gastrointestinal hemorrhage, unspecified Plan: --+ stool hemoccult on 01/09/17 --on Protonix + Carafate --unable to perform EGD until counts stabilize. --monitor serial H/H, transfuse as needed Assessment 26 y/o male with no major past medical history who was brought in for headache, confusion and cough and found to be pancytopenic and circulating blast cells. Bone marrow biopsy confirmed Acute Myeloid Leukemia: Plan 1. Severe Thrombocytopenia with heme-occult positive stools: Transfuse 2 units of Irradiated platelets--HLA matched platelets are not available for 2 days. Will give non-matched platelets 2. Severe Anemia: Transfuse 1 unit of pRBC-irradiated, CMV negative 3. Abdominal pain ? Gastritis/? Typhlitis/? Splenic infarcts: some improvement: unclear etiology. ? severe gastritis. continue PPI/Carafate and Pain control. Switch to Protonix drip. Abdominal MRI with and without without contrast stat. Will start patient on Dilaudid [employer] 4. Neutropenia: ANC < 500. continue neutropenic precautions. On IV Zosyn 5. FEN: check electrolytes in am 6. Splenic Infarcts: unable to anti-coagulate- low platelets Check coags and Fibrinogen today. d/w rn o/n events reviewed Problem Qualifiers (1) Neutropenia: Joey Santoyo MD Jan 11, 2017 10:55
[2017-01-11] MEDS: diphenhydrAMINE HCL 25 MG CAP PO PRN ×2 (11:01→15:09)
[2017-01-11] MEDS: ACETAMINOPHEN 325 MG TAB PO PRN ×2 (11:01→15:09)
--- NOTE | 2017-01-11 11:40 | HHI.GIFU ---
Subjective Remarks Lying in bed. Reports worsening epigastric pain today. Continues to have nausea , improved with Phenergan. No emesis. Objective Vitals I&O Vital Signs Date Time Temp Pulse Resp B/P (MAP) Pulse Ox O2 Delivery O2 Flow Rate FiO2 01/11/17 10:07 Room Air 01/11/17 08:48 96.8 105 21 110/51 (70) 99 01/11/17 06:43 97.9 78 18 121/68 (85) 97 01/11/17 04:00 108 01/11/17 00:00 108 01/11/17 00:00 98.8 67 18 108/64 (79) 97 01/10/17 21:17 97.9 74 18 112/60 (77) 97 01/10/17 20:00 109 01/10/17 20:00 Room Air 01/10/17 16:08 96.7 94 20 116/55 98 01/10/17 16:00 92 01/10/17 14:43 97.8 106 21 122/56 98 01/10/17 14:42 97.8 106 21 122/56 (78) 98 01/10/17 14:26 97.7 100 20 109/55 96 01/10/17 13:55 97.0 104 20 115/54 94 01/10/17 13:27 97.0 104 20 115/54 94 01/10/17 12:40 100.2 114 23 128/56 99 01/10/17 12:10 111 I/O 01/10/17 01/10/17 01/10/17 01/11/17 01/11/17 01/11/17 07:00 15:00 23:00 07:00 15:00 23:00 Intake Total 2032 ml 1080 ml 240 ml 854 ml Balance 2032 ml 1080 ml 240 ml 854 ml Intake Oral 1440 ml 680 ml 240 ml IV Total 854 ml Packed Cells 400 ml 400 ml Platelets 192 ml # Voids 1 1 1 1 # Bowel Movements 1 1 0 1 Laboratory Laboratory Tests Test 01/10/17 17:15 01/10/17 18:05 01/10/17 20:00 01/11/17 06:00 White Blood Count 0.3 0.3 0.2 Red Blood Count 2.41 2.50 2.28 Hemoglobin 7.7 8.0 7.1 Hematocrit 21.5 22.1 20.2 Mean Corpuscular Volume 89.4 88.5 88.8 Mean Corpuscular Hemoglobin 32.0 31.9 31.3 Mean Corpuscular Hemoglobin Concent 35.8 36.0 35.2 Red Cell Distribution Width 15.3 14.9 14.8 Platelet Count 4 4 4 Mean Platelet Volume 8.1 7.7 7.7 CBC Comment AUTO DIFF AUTO DIFF AUTO DIFF Differential Total Cells Counted 10 10 15 Lymphocytes % 100 100 93 Differential Comment FINAL DIFF MANUAL FINAL DIFF MANUAL FINAL DIFF MANUAL Platelet Estimate RARE RARE RARE Platelet Morphology Comment NORMAL NORMAL NORMAL Red Cell Morphology Comment NORMAL NORMAL Monocytes % 7 Neutrophils # (Manual) 0.0 Ovalocytes 1+ Blood Urea Nitrogen 13 Creatinine 0.53 Random Glucose 102 Total Protein 4.6 Albumin 1.6 Calcium Level 6.7 Alkaline Phosphatase 33 Aspartate Amino Transf (AST/SGOT) LESS THAN 3 Alanine Aminotransferase (ALT/SGPT) 14 Lactate Dehydrogenase 95 Total Bilirubin 2.5 Sodium Level 134 Potassium Level 3.5 Chloride Level 99 Carbon Dioxide Level 29.7 Anion Gap 5 Estimat Glomerular Filtration Rate 191 Protein Corrected Calcium 8.0 Date/Time Source Procedure Growth Status 12/29/16 22:47 Blood Peripheral Aerobic Blood Culture - Final NO GROWTH IN 5 DAYS Complete 12/29/16 22:47 Blood Peripheral Anaerobic Blood Culture - Final NO GROWTH IN 5 DAYS Complete 12/26/16 17:10 Cerebral Spinal Fluid Lumbar Puncture Acid Fast Stain - Final NO ACID FAST BACILLI SEEN Resulted 12/26/16 17:10 Cerebral Spinal Fluid Lumbar Puncture Mycobacterial Culture - Preliminary NO GROWTH IN 2 WEEKS Resulted 01/09/17 19:57 Stool Stool Stool Occult Blood (SUNDAR) - Final HEMOCCULT POSITIVE Complete 12/28/16 17:50 Bronchial Washings Left Lower Lobe Fungal Smear - Final NO FUNGAL ELEMENTS SEEN. Resulted 12/28/16 17:50 Bronchial Washings Left Lower Lobe Fungal Culture - Preliminary NO GROWTH IN 1 WEEK Resulted 12/31/16 00:50 Urine Random Urine Legionella Antigen - Final PRESUMPTIVE NEGATIVE FOR LEGIONELLA P... Complete 12/31/16 00:50 Urine Random Urine Streptococcus pneumoniae Antigen (M - Final PRESUMPTIVE NEGATIVE FOR STREPTOCOCCU... Complete Imaging Last Impressions Lower Extremity Ultrasound 01/10/17 0000 Signed Impressions: Service Date/Time: Tuesday, January 10, 2017 21:50 - CONCLUSION: Negative exam with no evidence of deep venous thrombosis. Jose Nicholson MD Hepatobiliary Scan Nuclear Medicine 01/09/17 0000 Signed Impressions: Service Date/Time: Monday, January 09, 2017 10:01 - CONCLUSION: 1. The patient refused imaging beyond 45 minutes. There is activity seen within small bowel and gallbladder with no evidence for cystic duct obstruction. Danie Kelly MD Abdomen/Pelvis CT 01/08/17 0000 Signed Impressions: Service Date/Time: Sunday, January 08, 2017 14:43 - CONCLUSION: 1. No evidence of mesenteric artery stenosis 2. Small amount of free fluid is present in the pelvis Humza Decker MD Abdomen Ultrasound 01/07/17 0000 Signed Impressions: Service Date/Time: December 01:11 - CONCLUSION: 1. No acute findings. Liver enlarged. Spleen mildly prominent at 14 cm. Leander Fiore MD Chest X-Ray 01/03/17 0600 Signed Impressions: Service Date/Time: Tuesday, January 03, 2017 04:42 - CONCLUSION: Normal examination. Right IJ [id number] catheter in excellent position. Lungs are clear. Enrique Ramos MD Port Line Insertion 12/31/16 0000 Signed Impressions: Service Date/Time: December 15:15 - CONCLUSION: Uncomplicated ultrasound and fluoroscopic guided implanted central venous port catheter placement as described in detail above. An 8 [employer] port was placed. Nilson Bonner MD Gated Heart Nuclear Medicine 12/30/16 0000 Signed Impressions: Service Date/Time: Friday, December 30, 2016 13:16 - CONCLUSION: Negative exam. Calculated ejection fraction of 56%% with adequate wall motion throughout. Bean Dugan MD Bone Biopsy CT 12/28/16 0000 Signed Impressions: Service Date/Time: Wednesday, December 28, 2016 16:53 - CONCLUSION: 1. Uncomplicated CT guided bone marrow aspirate. 2. Uncomplicated CT guided bone marrow biopsy. Grant Jones MD Brain MRI 12/27/16 0000 Signed Impressions: Service Date/Time: Tuesday, December 27, 2016 21:58 - CONCLUSION: Unremarkable study. KDexter Contreras MD Lumbar Puncture Fluoroscopy 12/26/16 0000 Signed Impressions: Service Date/Time: Monday, December 26, 2016 17:03 - CONCLUSION: Uncomplicated fluoroscopically guided lumbar puncture with pressures as above. Nilson Bonner MD Chest CT 12/26/16 0000 Signed Impressions: Service Date/Time: Monday, December 26, 2016 17:45 - CONCLUSION: Bibasilar air space process characteristic of pneumonia. Patricia Contreras MD Head CT 12/25/16 1941 Signed Impressions: Service Date/Time: Sunday, December 25, 2016 19:50 - CONCLUSION: Negative noncontrast head CT. Audie Maria MD Physical Exam HEENT: Normocephalic; atraumatic; no jaundice. NECK: Neck is supple CHEST: CTA CARDIAC: RRR with no murmur gallop or rubs. ABDOMEN: Soft, obese, nondistended, epigastric pain; bowel sounds are present x 4 EXTREMITIES: No clubbing, cyanosis, or edema. SKIN: Normal; no rash; no jaundice. HORTICULTURAL THERAPIST: No focal deficits; alert and oriented x 3. Assessment and Plan Plan ASSESSMENT - Abdominal pain, unclear etiology. Reports epigastric pain. CT showing splenic infarct. CTA no mesenteric ischemia, small amount free fluid pelvis. HIDA (pt refused imaging beyond 45 min) but negative for cystic duct obstruction. - Diarrhea, C diff negative - Acute myeloid leukemia, Oncology following, induction therapy 01/10/17--HH 6.8/19.5. Platelets 5. WBC 0.2. Getting blood transfusion. 01/11/17--Worsening epigastric pain today. Has nausea, but no vomiting. HH 7.1/ 20.2. Platelets 4. WBC 0.2. Blood transfusion ordered. PLAN - SAMANTHA - Cont. Protonix BID - Cont. Carafate - EGD when stable, if pain not resolved - Monitor HH, transfuse as necessary - Monitor labs - Supportive care - Further recommendations to follow based on results of above. Patient seen and examined by Dr. Rosas and myself and this note is written on his behalf. Lani Francisco Jan 11, 2017 11:40
[2017-01-11] MEDS ORDERED: HYDROmorphone HCL PF 2 MG/ML VIAL IV PRN (13:45)
[2017-01-11] MEDS ORDERED: NALOXONE HCL 0.4 MG/ML AMP IV PRN (15:15)
[2017-01-11] MEDS: PCA - TOTAL MG DILAUDID DELIVERED PER SHIFT OTHER SCH ×2 (15:45→22:00)
[2017-01-11] MEDS: PANTOPRAZOLE INJ 80 MG in SODIUM CHLORIDE 0.9% INJ 100 ML IV SCH (16:32)
[2017-01-11 17:13] LABS: INTERNATIONAL NORMALIZED RATIO 1.3 RATIO; PROTHROMBIN TIME - PATIENT 14.7 SEC (9.8-11.6)
[2017-01-11] MEDS: HYDROmorphone HCL PCA 6 MG/30 ML IV SCH (18:05)
[2017-01-11] MEDS: ONDANSETRON HCL 4 MG/2 ML VIAL IV PUSH PRN (22:59)
[2017-01-11 23:47] LABS: BACTERIA, URINE RARE /hpf; BLOOD, URINE LARGE (NEG); COMMENT (UR) CULTURE INDICATED; CULTURE IF INDICATED CULTURE INDICATED; GLUCOSE,URINE NEG (NEG); KETONE, URINE NEG (NEG); NITRITE,URINE NEG (NEG)
[2017-01-11 23:49] LABS: URINE COLOR DARK-BROWN (YELLW/STRAW)
[2017-01-12] VITALS (17 sets, daily range): BP systolic 105–156; BP diastolic 49–69; PULSE 106–124; RESP 13–18; TEMP 96.5–101.3; O2SAT 92–98
[2017-01-12 00:17] LABS: MEAN CELL VOLUME 89.8 FL (80.0-100.0); MEAN CORPUSCULAR HEMOGLOBIN 32.4 PG (27.0-34.0); RED CELL DISTRIBUTION WIDTH 14.9 % (11.6-17.2); WHITE BLOOD COUNT 0.2 TH/MM3 (4.0-11.0)
[2017-01-12 00:20] LABS: MEAN CORPUSCULAR HGB CONC 36.1 % (32.0-36.0)
[2017-01-12 00:21] LABS: REVIEW FLAG FINAL
[2017-01-12 00:24] LABS: HEMATOCRIT 18.8 % (39.0-51.0); PLATELET COUNT 16 TH/MM3 (150-450)
[2017-01-12] MEDS: ACETAMINOPHEN 325 MG TAB PO PRN ×3 (01:36→20:04)
[2017-01-12] MEDS: diphenhydrAMINE HCL 25 MG CAP PO PRN ×2 (01:36→12:01)
[2017-01-12] MEDS: PROMETHAZINE HCL 25 MG TAB PO PRN ×2 (01:39→20:04)
[2017-01-12] MEDS: HYDROmorphone HCL PCA 6 MG/30 ML IV SCH ×3 (01:56→16:58)
[2017-01-12] MEDS ORDERED: HYDROmorphone HCL PF 1 MG/ML VIAL IV PUSH ONE (02:30)
[2017-01-12] MEDS: PANTOPRAZOLE INJ 80 MG in SODIUM CHLORIDE 0.9% INJ 100 ML IV SCH (05:36)
[2017-01-12] MEDS: PCA - TOTAL MG DILAUDID DELIVERED PER SHIFT OTHER SCH ×3 (05:37→22:00)
[2017-01-12] MEDS: SUCRALFATE 1 GM/10 ML CUP PO SCH ×4 (06:02→19:57)
[2017-01-12] MEDS: PIPERACIL-TAZO 4.5 GM PREMIX 100 ML IV SCH ×3 (06:02→23:30)
[2017-01-12 07:58] LABS: LYMPH % 89.4 % (9.0-44.0); LYMPHOCYTE # 0.2 TH/MM3 (1.0-4.8); MEAN CELL VOLUME 89.2 FL (80.0-100.0); MEAN CORPUSCULAR HEMOGLOBIN 31.7 PG (27.0-34.0); MEAN CORPUSCULAR HGB CONC 35.6 % (32.0-36.0); MONO % 9.8 % (0.0-8.0); NEUT % 0.8 % (16.0-70.0); RED BLOOD COUNT 2.35 MIL/MM3 (4.50-5.90); RED CELL DISTRIBUTION WIDTH 14.9 % (11.6-17.2); WHITE BLOOD COUNT 0.3 TH/MM3 (4.0-11.0)
[2017-01-12 08:02] LABS: HEMO FLAGS AUTO DIFF
[2017-01-12 08:05] LABS: PLATELET COUNT 7 TH/MM3 (150-450)
[2017-01-12 08:31] LABS: ALKALINE PHOSPHATASE 37 U/L (45-117); ALT (GPT) 12 U/L (12-78); ANION GAP 8 MEQ/L (5-15); AST (GOT) LESS THAN 3 U/L (15-37); BLOOD UREA NITROGEN 14 MG/DL (7-18); CALCIUM-PROTEIN CORRECTED 7.9 MG/DL (8.5-10.1); CHLORIDE 99 MEQ/L (98-107); GLOMERULAR FILTRATION RATE 176 ML/MIN (>89); LDH SERUM 113 U/L (87-241); POTASSIUM 3.4 MEQ/L (3.5-5.1); SODIUM (NA) 134 MEQ/L (136-145)
[2017-01-12] MEDS: Hickman Catheter Daily NS Lock Flush IV FLUSH SCH (09:00)
[2017-01-12] MEDS: MUPIROCIN 2% OINT 22 GM TUBE TOPICAL SCH ×3 (09:00→18:00)
[2017-01-12] MEDS: SODIUM CHLORIDE 0.9% FLUSH 10 ML FLUSH IV FLUSH SCH ×2 (09:00→19:56)
[2017-01-12 09:09] LABS: PLATELET ESTIMATE SMEAR RARE (NORMAL); POLYS (SEG NEUTROPHILS) 10 % (16-70); WBC DIFF SAMPLE 10
[2017-01-12 09:10] LABS: PLATELET MORPHOLOGY NORMAL (NORMAL); SCAN/DIFF FINAL DIFF MANUAL
[2017-01-12] MEDS ORDERED: SODIUM CHLOR 0.9% 250 ML INJ 250 ML IV ONE (10:00)
[2017-01-12] MEDS ORDERED: GADODIAMIDE PF 287 MG/ML 10 ML VIAL (for RAD MRI) IV PUSH ONE (10:51)
[2017-01-12] MEDS ORDERED: HYDROmorphone HCL PF 2 MG/ML VIAL IV PUSH ONE (11:00)
[2017-01-12] MEDS: ALLOPURINOL 100 MG TAB PO SCH (11:07)
[2017-01-12] MEDS: LACTOBACILLUS ACIDOPHILUS TAB PO SCH ×3 (11:08→18:14)
--- NOTE | 2017-01-12 11:15 | PD.ONC.PN ---
Subjective Subjective Remarks Afebrile overnight. Still having severe pain in abdomen. Just back from MRI. still with occasional diarrhea. Eating very little. Pain improved with dilaudid. Objective Data Date Time Temp Pulse Resp B/P (MAP) Pulse Ox O2 Delivery O2 Flow Rate FiO2 01/12/17 09:00 Room Air 01/12/17 05:41 96.5 110 14 119/56 95 01/12/17 05:37 14 01/12/17 04:00 106 01/12/17 03:15 96.5 110 14 121/53 95 01/12/17 02:59 97.1 111 13 116/56 96 01/12/17 02:40 99.9 110 16 113/49 94 01/12/17 01:56 14 01/12/17 00:00 97.2 124 18 105/49 (67) 92 01/12/17 00:00 118 01/11/17 22:00 14 01/11/17 20:05 119 01/11/17 20:05 Room Air 3.00 21 01/11/17 20:00 97.9 123 18 107/46 (66) 95 01/11/17 18:46 20 01/11/17 18:11 97.6 121 20 107/52 (70) 95 01/11/17 18:05 20 01/11/17 16:28 100.1 118 20 124/52 98 01/11/17 16:17 99.9 134 23 116/51 (72) 100 01/11/17 16:06 121 01/11/17 15:50 99.9 134 23 116/51 100 01/11/17 14:47 100.2 114 20 94/45 96 01/11/17 13:33 100/53 (69) 01/11/17 12:59 98.1 113 20 92/55 98 01/11/17 12:31 110 01/11/17 12:30 96.7 107 20 93/44 96 01/11/17 12:07 98.3 109 20 104/53 94 01/11/17 12:06 98.3 109 22 104/53 (70) 94 01/12/17 01/12/17 01/12/17 07:00 15:00 23:00 Intake Total 1555 ml 100 ml Output Total 1000 ml 600 ml Balance 555 ml -500 ml Result Diagram: 01/12/17 0725 01/12/17 0725 Laboratory Results Laboratory Tests Test 01/11/17 16:40 01/11/17 22:25 01/11/17 23:45 01/12/17 07:25 Prothrombin Time 14.7 SEC Prothromb Time International Ratio 1.3 RATIO Fibrinogen 600 mg/dL 605 mg/dL Urine Color DARK-BROWN Urine Turbidity HAZY Urine pH 6.0 Urine Specific [place] 1.021 Urine Protein 30 mg/dL Urine Glucose (UA) NEG mg/dL Urine Ketones NEG mg/dL Urine Occult Blood LARGE Urine Nitrite NEG Urine Bilirubin SMALL Urine Urobilinogen LESS THAN 2.0 MG/DL Urine Leukocyte Esterase NEG Urine RBC /hpf Urine WBC 27 /hpf Urine Bacteria RARE /hpf Microscopic Urinalysis Comment CULTURE INDICATED White Blood Count 0.2 TH/MM3 0.3 TH/MM3 Red Blood Count 2.10 MIL/MM3 2.35 MIL/MM3 Hemoglobin 6.8 GM/DL 7.5 GM/DL Hematocrit 18.8 % 21.0 % Mean Corpuscular Volume 89.8 FL 89.2 FL Mean Corpuscular Hemoglobin 32.4 PG 31.7 PG Mean Corpuscular Hemoglobin Concent 36.1 % 35.6 % Red Cell Distribution Width 14.9 % 14.9 % Platelet Count 16 TH/MM3 7 TH/MM3 Mean Platelet Volume 8.4 FL 7.8 FL Neutrophils (%) (Auto) 0.8 % Lymphocytes (%) (Auto) 89.4 % Monocytes (%) (Auto) 9.8 % Eosinophils (%) (Auto) 0.0 % Basophils (%) (Auto) 0.0 % Neutrophils # (Auto) 0.0 TH/MM3 Lymphocytes # (Auto) 0.2 TH/MM3 Monocytes # (Auto) 0.0 TH/MM3 Eosinophils # (Auto) 0.0 TH/MM3 Basophils # (Auto) 0.0 TH/MM3 CBC Comment AUTO DIFF Differential Total Cells Counted 10 Neutrophils % (Manual) 10 % Lymphocytes % 90 % Neutrophils # (Manual) 0.0 TH/MM3 Differential Comment FINAL DIFF MANUAL Platelet Estimate RARE Platelet Morphology Comment NORMAL Blood Urea Nitrogen 14 MG/DL Creatinine 0.57 MG/DL Random Glucose 95 MG/DL Total Protein 4.7 GM/DL Albumin 1.6 GM/DL Calcium Level 6.7 MG/DL Alkaline Phosphatase 37 U/L Aspartate Amino Transf (AST/SGOT) LESS THAN 3 U/L Alanine Aminotransferase (ALT/SGPT) 12 U/L Lactate Dehydrogenase 113 U/L Total Bilirubin 5.0 MG/DL Sodium Level 134 MEQ/L Potassium Level 3.4 MEQ/L Chloride Level 99 MEQ/L Carbon Dioxide Level 27.0 MEQ/L Anion Gap 8 MEQ/L Estimat Glomerular Filtration Rate 176 ML/MIN Protein Corrected Calcium 7.9 MG/DL Culture Results Microbiology Date/Time Source Procedure Growth Status 01/11/17 18:43 Blood Other Aerobic Blood Culture Pending Received 01/11/17 18:43 Blood Other Anaerobic Blood Culture Pending Received 01/11/17 18:37 Blood Peripheral Aerobic Blood Culture Pending Received 01/11/17 18:37 Blood Peripheral Anaerobic Blood Culture Pending Received 01/09/17 19:57 Stool Stool Stool Occult Blood (SUNDAR) - Final HEMOCCULT POSITIVE Complete 01/11/17 22:25 Urine Clean Catch Urine Culture Pending Received Administered Medications Medications (Trade) Dose Ordered Sig/Emma Route PRN Reason Start Time Stop Time Status Last Admin Dose Admin Sodium Chloride (NS Flush) 2 ml UNSCH PRN IV FLUSH FLUSH AFTER USING IV ACCESS 12/25/16 23:00 12/30/16 04:59 Sodium Chloride (NS Flush) 2 ml BID IV FLUSH 12/26/16 09:00 01/09/17 09:27 Acetaminophen (Tylenol) 650 mg Q6H PRN PO FEVER>100.4 12/25/16 23:00 01/10/17 09:39 Benzonatate (Tessalon) 100 mg Q4H PRN PO COUGH 12/26/16 05:15 12/26/16 15:12 Promethazine HCl/ Codeine (Phenergan-Codeine Liq) 5 ml Q4H PRN PO COUGH 12/26/16 20:00 12/31/16 17:09 Diphenhydramine HCl (Benadryl) 25 mg Q4H PRN PO SEE LABEL COMMENTS 12/27/16 04:15 01/12/17 01:36 Acetaminophen (Tylenol) 650 mg Q4H PRN PO SEE LABEL COMMENTS 12/27/16 04:15 01/12/17 01:36 Mupirocin (Bactroban 2% Oint) 1 applic TID TOPICAL 12/27/16 14:15 01/11/17 18:11 Sodium Chloride (NS Flush) 5 ml DAILY IV FLUSH 12/30/16 09:00 01/11/17 08:06 Heparin Sodium (Porcine) (Heparin Central Flush) 500 units UNSCH PRN IV FLUSH SEE PROTOCOL TABLE 12/30/16 06:30 12/31/16 15:45 Promethazine HCl (Phenergan) 25 mg Q4H PRN PO nausea or vomitting 01/04/17 10:15 01/12/17 01:39 Allopurinol (Zyloprim) 200 mg DAILY PO 01/06/17 09:00 01/11/17 08:05 Hyoscyamine Sulfate (Levsin) 0.25 mg Q4H PRN PO CRAMPS 01/06/17 09:30 01/06/17 10:06 Sodium Chloride 1,000 ml @ 75 mls/hr [id number] IV 01/07/17 14:00 01/11/17 23:58 Sucralfate (Carafate Liq) 1 gm ACHS PO 01/09/17 16:00 01/11/17 20:01 Piperacillin Sod/ Tazobactam Sod 100 ml @ 200 mls/hr Q8H IV 01/09/17 15:00 01/12/17 06:02 Lactobacillus Acidophilus (Lactinex) 1 tab TID PO 01/10/17 18:00 01/11/17 18:11 Pantoprazole Sodium 80 mg/ Sodium Chloride 100 ml @ 10 mls/hr CONTINUOUS IV 01/11/17 16:00 01/12/17 05:36 Hydromorphone HCl (Dilaudid DYNAMITE PACKING MACHINE OPERATOR Inj) 6 mg UNSCH IV 01/11/17 15:15 01/12/17 01:56 DYNAMITE PACKING MACHINE OPERATOR Dosage Infused (Pha) 1 Q8HR OTHER 01/11/17 15:45 01/12/17 05:37 Ondansetron HCl (Zofran Inj) 8 mg Q8H PRN IV PUSH NAUSEA 01/11/17 17:15 Future hold 01/11/17 22:59 Objective Remarks GENERAL: Young man, supine in bed. appears uncomfortable SKIN: Warm and dry. p HEAD: Normocephalic. EYES: No injection or drainage. NECK: Supple, trachea midline. CARDIOVASCULAR: Regular rate and rhythm RESPIRATORY: Breath sounds equal bilaterally. No accessory muscle use. GASTROINTESTINAL: soft, tender to palpation in epigastrium. +obese MUSCULOSKELETAL: No cyanosis NEURO: awake and alert, normal speech. 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 Patients with rearrangement of CBFB in AML may have a higher risk of [employer] involvement at diagnosis or at relapse than patients with other types of AML. Inversion 16 or t(16;16), with or without additional chromosome abnormalities, has been associated with complete remission and improved long-term survival. - MUGA scan shows normal EF and no wall motion abnormalities 12/30/2016 - Port placement by IR completed 12/31/16 - Induction chemotherapy started 12/31-- 7+3 regimen with Daunorubicin 90mg/m2 and Cytaribine 100mg/m2-- Dosing capped at BSA of 2 - CMV negative, HIV and Hep B and C negative 12/31 Day 1: Daunorubicin and Cytarabine 01/01 Day 2: Daunorubicin and Cytarabine 01/02 Day 3: Daunorubicin and Cytarabine 01/03 Day 4: Cytarabine 01/04 Day 5: Cytarabine 01/05 Day 6: Cytarabine 01/06 Day 7: Cytarabine 01/07 Day 8: Last bag cytarabine infusing; will finish approx. 3am. Transfuse 1 unit irr. platelets, 1 unit irr. PRBC's. 01/08: D9. abdominal pain persistent. 2 units pRBC 01/09: D10. 2 additional units pRBC ordered. 1 unit platelets ordered 01/10: D11. 2 units pRBC. 1 unit platelets. + stool hemoccult 01/12: D13: 2 units pRBC. 1 unit platelets. (2) Neutropenia ICD Codes: D70.9 - Neutropenia, unspecified Status: Acute Plan: -- ID following -- On Zosyn -- BC on 12/25 = no growth. -- Bronchoscopy on 12/28= no growth. -- BC on 12/29= no growth. (3) Abdominal pain ICD Codes: R10.9 - Unspecified abdominal pain Plan: -- Epigastric area pain -- Amylase, lipase WNL -- CT abdomen/ pelvis shows splenic infarcts; --CTA abdomen shows no mesenteric emboli --Abdominal U/S: shows no acute findings. enlarged liver and spleen. --GI following --on Protonix, Carafate, Bentyl, Zosyn +stool hemoccult (4) Pancytopenia ICD Codes: D61.818 - Other pancytopenia Plan: - Check Fibrinogen every other day - Transfuse to keep platelets > 10 - Will need irradiated CMV negative blood products -- transfuse to keep Hb > 7 (5) GIB (gastrointestinal bleeding) ICD Codes: K92.2 - Gastrointestinal hemorrhage, unspecified Plan: --+ stool hemoccult on 01/09/17 --on Protonix + Carafate --unable to perform EGD until counts stabilize. --monitor serial H/H, transfuse as needed Assessment 26 y/o male with no major past medical history who was brought in for headache, confusion and cough and found to be pancytopenic and circulating blast cells. Bone marrow biopsy confirmed Acute Myeloid Leukemia: Plan 1. 2 units pRBC, 1 unit platelets today 2. monitor CBC twice daily until hemoglobin stabilizes 3. continue Dilaudid for pain, continue PPI/Carafate 4. await MRI Abdomen. Attending Statement The exam, history, and the medical decision-making described in the above note were completed with the assistance of the mid-level provider. I reviewed and agree with the findings presented. I attest that I had a [id number] encounter with the patient on the same day, and personally performed and documented my assessment and findings in the medical record. Abdominal pain better controlled etiology remains unclear Abdominal MRI did not reveal any acute abnormalities Continue Dilaudid DYNAMITE PACKING MACHINE OPERATOR Contiue IV protonix pRBC and PLT transfusion today. Will need to exercise judicious management of transfusions to avoid alloantibody formation. Transfuse 1 unit of pRBC if Hb less than 7.5 and transfuse to keep PLTs > 10 long discussion with the patient d/w rn overnight events reviewed Problem Qualifiers (1) Acute myelogenous leukemia: Qualified Codes: C92.00 - Acute myeloblastic leukemia, not having achieved remission (2) Neutropenia: Fartun Pagan Jan 12, 2017 11:15 Joey Snatoyo MD Jan 12, 2017 23:50
--- NOTE | 2017-01-12 11:15 | RADRPT ---
EXAM DATE/TIME: 01/12/2017 09:47 [facility] COMPARISON: CTA ABDOMEN & PELVIS W 3D RECON, January 08, 2017, 14:43. INDICATIONS : Pain. CONTRAST: 30 cc Omniscan (gadodiamide) IV MEDICAL HISTORY : Leukemia. SURGICAL HISTORY : Port placement. ENCOUNTER: Initial ACUITY: 2 day PAIN SCORE: 4/10 LOCATION: abdomen TECHNIQUE: Multiplanar, multisequence magnetic resonance imaging of the abdomen was performed without and with i ntravenous contrast. FINDINGS: LIVER: Normal size with normal signal intensity. No lesion is identified. Portal vein is within normal limi ts. BILIARY: There is no intra- or extra-hepatic biliary ductal dilatation. Gallbladder contains no stones. SPLEEN: There are 3 hemangiomas in the spleen the largest measuring 3 cm in diameter. PANCREAS: Within normal limits. ADRENALS: Within normal limits. KIDNEYS: Normal size and signal intensity. There is no hydronephrosis or mass. OTHER: Aorta is nonaneurysmal. There is no lymphadenopathy. CONCLUSION: No evidence of acute abdominal process. Splenic hemangiomas Humza Decker MD on January 12, 2017 at 10:54 Board Certified Radiologist. This report was verified electronically.
--- NOTE | 2017-01-12 12:33 | PD.CONS ---
HPI Service Urology Consult Requested By Anika Garzon NP Reason for Consult Microscopic hematuria Primary Care Physician No Primary Care Physician Diagnosis: (1) SIRS (systemic inflammatory response syndrome) ICD Code: R65.10 - Systemic inflammatory response syndrome (SIRS) of non- infectious origin without acute organ dysfunction (2) GABRIELA (acute kidney injury) ICD Code: N17.9 - Acute kidney failure, unspecified (3) Thrombocytopenia ICD Code: D69.6 - Thrombocytopenia, unspecified (4) Lymphocytosis ICD Code: D72.820 - Lymphocytosis (symptomatic) (5) Anemia ICD Code: D64.9 - Anemia, unspecified History of Present Illness 26-year-old gentleman who presented to the emergency room with altered mental status and epigastric abdominal pain of indeterminate etiology. Patient was worked up and diagnosed with acute myeloid leukemia although a definitive source of his abdominal pain has not been clearly defined. GI evaluation has been somewhat limited thus far due to significant thrombocytopenia. He recently received several days of chemotherapy and recent urinalysis demonstrated the presence of innumerable red blood cells, 27 white blood cells per high-power field and significant proteinuria. Rare bacteria were seen. Earlier urinalyses during present hospital patient were negative. CT scanning of the abdomen and pelvis were performed during present hospitalization which failed to demonstrate any significant pathology. At the time of consultation the patient was resting quietly in bed and reported that his pain was well managed. He denies a history of gross hematuria nor any flank pain. He denies a past medical history for any significant urologic disorders. Review of Systems ROS Limitations: Altered Mental Status (upon arrival to hospital) Constitutional: COMPLAINS OF: Fever Gastrointestinal: COMPLAINS OF: Abdominal pain (epigastric region) Musculoskeletal: DENIES: Back pain Except as stated in HPI: all other systems reviewed are Neg Past Family Social History Past Medical History Denies significant past medical history Past Surgical History Denies major surgery Reported Medications Refer to EMR Allergies: Coded Allergies: No Known Allergies (Verified , 12/25/16) Active Ordered Medications Refer to EMR Family History Reviewed and noncontributory Social History Denies tobacco or intravenous drug abuse. Occasional alcohol use. 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 Physical Exam Vital Signs Date Time Temp Pulse Resp B/P (MAP) Pulse Ox O2 Delivery O2 Flow Rate FiO2 01/12/17 11:48 16 01/12/17 09:00 Room Air 01/12/17 08:00 99.5 116 18 115/56 (75) 98 01/12/17 05:41 96.5 110 14 119/56 95 01/12/17 05:37 14 01/12/17 04:00 106 01/12/17 03:15 96.5 110 14 121/53 95 01/12/17 02:59 97.1 111 13 116/56 96 01/12/17 02:40 99.9 110 16 113/49 94 01/12/17 01:56 14 01/12/17 00:00 97.2 124 18 105/49 (67) 92 01/12/17 00:00 118 01/11/17 22:00 14 01/11/17 20:05 119 01/11/17 20:05 Room Air 3.00 21 01/11/17 20:00 97.9 123 18 107/46 (66) 95 01/11/17 18:46 20 01/11/17 18:11 97.6 121 20 107/52 (70) 95 01/11/17 18:05 20 01/11/17 16:28 100.1 118 20 124/52 98 01/11/17 16:17 99.9 134 23 116/51 (72) 100 01/11/17 16:06 121 01/11/17 15:50 99.9 134 23 116/51 100 01/11/17 14:47 100.2 114 20 94/45 96 01/11/17 13:33 100/53 (69) 01/11/17 12:59 98.1 113 20 92/55 98 01/11/17 12:31 110 01/11/17 12:30 96.7 107 20 93/44 96 Physical Exam GENERAL: This is a well-nourished, well-developed patient, in no apparent distress. SKIN: No rashes, ecchymoses or lesions. Cool and dry. HEAD: Atraumatic. Normocephalic. No temporal or scalp tenderness. EYES: Pupils equal round and reactive. Extraocular motions intact. No scleral icterus. No injection or drainage. ENT: Nose without bleeding, purulent drainage or septal hematoma. Throat without erythema, tonsillar hypertrophy or exudate. Uvula midline. Airway patent. NECK: Trachea midline. No JVD or lymphadenopathy. Supple, nontender, no meningeal signs. GASTROINTESTINAL: Abdomen soft, non-tender, nondistended. No hepato-splenomegaly , or palpable masses. No guarding. GENITOURINARY: No CVA tenderness MUSCULOSKELETAL: Extremities well-perfused. Negative Homans sign bilaterally. NEUROLOGICAL: Awake and alert. Cranial nerves II through XII intact. Motor and sensory grossly within normal limits. Five out of 5 muscle strength in all muscle groups. Normal speech. Lab results reviewed: Yes Laboratory Tests Test 01/11/17 16:40 01/11/17 22:25 01/11/17 23:45 01/12/17 07:25 Prothrombin Time 14.7 Prothromb Time International Ratio 1.3 Fibrinogen 600 605 Urine Color DARK-BROWN Urine Turbidity HAZY Urine pH 6.0 Urine Specific [place] 1.021 Urine Protein 30 Urine Glucose (UA) NEG Urine Ketones NEG Urine Occult Blood LARGE Urine Nitrite NEG Urine Bilirubin SMALL Urine Urobilinogen LESS THAN 2.0 Urine Leukocyte Esterase NEG Urine RBC Urine WBC 27 Urine Bacteria RARE Microscopic Urinalysis Comment CULTURE INDICATED White Blood Count 0.2 0.3 Red Blood Count 2.10 2.35 Hemoglobin 6.8 7.5 Hematocrit 18.8 21.0 Mean Corpuscular Volume 89.8 89.2 Mean Corpuscular Hemoglobin 32.4 31.7 Mean Corpuscular Hemoglobin Concent 36.1 35.6 Red Cell Distribution Width 14.9 14.9 Platelet Count 16 7 Mean Platelet Volume 8.4 7.8 Neutrophils (%) (Auto) 0.8 Lymphocytes (%) (Auto) 89.4 Monocytes (%) (Auto) 9.8 Eosinophils (%) (Auto) 0.0 Basophils (%) (Auto) 0.0 Neutrophils # (Auto) 0.0 Lymphocytes # (Auto) 0.2 Monocytes # (Auto) 0.0 Eosinophils # (Auto) 0.0 Basophils # (Auto) 0.0 CBC Comment AUTO DIFF Differential Total Cells Counted 10 Neutrophils % (Manual) 10 Lymphocytes % 90 Neutrophils # (Manual) 0.0 Differential Comment FINAL DIFF MANUAL Platelet Estimate RARE Platelet Morphology Comment NORMAL Blood Urea Nitrogen 14 Creatinine 0.57 Random Glucose 95 Total Protein 4.7 Albumin 1.6 Calcium Level 6.7 Alkaline Phosphatase 37 Aspartate Amino Transf (AST/SGOT) LESS THAN 3 Alanine Aminotransferase (ALT/SGPT) 12 Lactate Dehydrogenase 113 Total Bilirubin 5.0 Sodium Level 134 Potassium Level 3.4 Chloride Level 99 Carbon Dioxide Level 27.0 Anion Gap 8 Estimat Glomerular Filtration Rate 176 Protein Corrected Calcium 7.9 Date/Time Source Procedure Growth Status 01/11/17 18:43 Blood Other Aerobic Blood Culture - Preliminary NO GROWTH IN 1 DAY Resulted 01/11/17 18:43 Blood Other Anaerobic Blood Culture - Preliminary NO GROWTH IN 1 DAY Resulted 12/26/16 17:10 Cerebral Spinal Fluid Lumbar Puncture Acid Fast Stain - Final NO ACID FAST BACILLI SEEN Resulted 12/26/16 17:10 Cerebral Spinal Fluid Lumbar Puncture Mycobacterial Culture - Preliminary NO GROWTH IN 2 WEEKS Resulted 01/09/17 19:57 Stool Stool Stool Occult Blood (SUNDAR) - Final HEMOCCULT POSITIVE Complete 12/28/16 17:50 Bronchial Washings Left Lower Lobe Fungal Smear - Final NO FUNGAL ELEMENTS SEEN. Resulted 12/28/16 17:50 Bronchial Washings Left Lower Lobe Fungal Culture - Preliminary NO GROWTH IN 2 WEEKS Resulted 01/11/17 22:25 Urine Clean Catch Urine Culture Pending Received Result Diagram: 01/12/17 0725 01/12/17 0725 Personally reviewed images: Yes Imaging Last Impressions Abdomen MRI 01/12/17 0000 Signed Impressions: Service Date/Time: Thursday, January 12, 2017 09:47 - CONCLUSION: No evidence of acute abdominal process. Splenic hemangiomas Humza Decker MD Lower Extremity Ultrasound 01/10/17 0000 Signed Impressions: Service Date/Time: Tuesday, January 10, 2017 21:50 - CONCLUSION: Negative exam with no evidence of deep venous thrombosis. Jose Nicholson MD Hepatobiliary Scan Nuclear Medicine 01/09/17 0000 Signed Impressions: Service Date/Time: Monday, January 09, 2017 10:01 - CONCLUSION: 1. The patient refused imaging beyond 45 minutes. There is activity seen within small bowel and gallbladder with no evidence for cystic duct obstruction. Danie Kelly MD Abdomen/Pelvis CT 01/08/17 0000 Signed Impressions: Service Date/Time: Sunday, January 08, 2017 14:43 - CONCLUSION: 1. No evidence of mesenteric artery stenosis 2. Small amount of free fluid is present in the pelvis Humza Decker MD Abdomen Ultrasound 01/07/17 0000 Signed Impressions: Service Date/Time: , January 07, 2017 01:11 - CONCLUSION: 1. No acute findings. Liver enlarged. Spleen mildly prominent at 14 cm. Leander Fiore MD Chest X-Ray 01/03/17 0600 Signed Impressions: Service Date/Time: Tuesday, January 03, 2017 04:42 - CONCLUSION: Normal examination. Right IJ [id number] catheter in excellent position. Lungs are clear. Enrique Ramos MD Port Line Insertion 12/31/16 0000 Signed Impressions: Service Date/Time: December 15:15 - CONCLUSION: Uncomplicated ultrasound and fluoroscopic guided implanted central venous port catheter placement as described in detail above. An 8 [place] [employer] port was placed. Nilson Bonner MD Gated Heart Nuclear Medicine 12/30/16 0000 Signed Impressions: Service Date/Time: Friday, December 30, 2016 13:16 - CONCLUSION: Negative exam. Calculated ejection fraction of 56%% with adequate wall motion throughout. Bean Dugan MD Bone Biopsy CT 12/28/16 0000 Signed Impressions: Service Date/Time: Wednesday, December 28, 2016 16:53 - CONCLUSION: 1. Uncomplicated CT guided bone marrow aspirate. 2. Uncomplicated CT guided bone marrow biopsy. Grant Jones MD Brain MRI 12/27/16 0000 Signed Impressions: Service Date/Time: Tuesday, December 27, 2016 21:58 - CONCLUSION: Unremarkable study. Patricia Contreras MD Lumbar Puncture Fluoroscopy 12/26/16 0000 Signed Impressions: Service Date/Time: Monday, December 26, 2016 17:03 - CONCLUSION: Uncomplicated fluoroscopically guided lumbar puncture with pressures as above. Nilson Bonner MD Chest CT 12/26/16 0000 Signed Impressions: Service Date/Time: Monday, December 26, 2016 17:45 - CONCLUSION: Bibasilar air space process characteristic of pneumonia. Patricia Contreras MD Head CT 12/25/16 194 Signed Impressions: Service Date/Time: Sunday, December 25, 2016 19:50 - CONCLUSION: Negative noncontrast head CT. Audie Maria MD Assessment and Plan Assessment and Plan Urologic impression: Recent findings on urinalysis including microscopic hematuria most likely related to toxic effects of the recently prescribed chemotherapy on the urinary tract. Recommendations: #1 supportive care #2 agree with urine culture #3 no further urologic intervention indicated #4 will be available as needed during present hospitalization Yves Barton MD Jan 12, 2017 12:33
[2017-01-12 13:19] LABS: INDIRECT BILIRUBIN 2.8 MG/DL (0.0-0.8)
[2017-01-12] MEDS: SODIUM CHLOR 0.9% 1000 ML INJ 1,000 ML IV SCH ×2 (14:00→23:31)
--- NOTE | 2017-01-12 16:04 | HHI.GIFU ---
Subjective Remarks Pt resting in bed. family at bedside. He says he his pain is somewhat improved today/better managed. He ate today, less nausea. Objective Vitals I&O Vital Signs Date Time Temp Pulse Resp B/P (MAP) Pulse Ox O2 Delivery O2 Flow Rate FiO2 01/12/17 13:44 99.4 110 16 127/58 95 01/12/17 13:08 99.9 113 16 126/66 95 01/12/17 12:36 99.9 114 18 140/65 93 01/12/17 12:31 99.9 116 18 120/58 (78) 96 01/12/17 11:48 16 01/12/17 09:00 Room Air 01/12/17 08:00 99.5 116 18 115/56 (75) 98 01/12/17 05:41 96.5 110 14 119/56 95 01/12/17 05:37 14 01/12/17 04:00 106 01/12/17 03:15 96.5 110 14 121/53 95 01/12/17 02:59 97.1 111 13 116/56 96 01/12/17 02:40 99.9 110 16 113/49 94 01/12/17 01:56 14 01/12/17 00:00 97.2 124 18 105/49 (67) 92 01/12/17 00:00 118 01/11/17 22:00 14 01/11/17 20:05 119 01/11/17 20:05 Room Air 3.00 21 01/11/17 20:00 97.9 123 18 107/46 (66) 95 01/11/17 18:46 20 01/11/17 18:11 97.6 121 20 107/52 (70) 95 01/11/17 18:05 20 01/11/17 16:28 100.1 118 20 124/52 98 01/11/17 16:17 99.9 134 23 116/51 (72) 100 01/11/17 16:06 121 I/O 01/11/17 01/11/17 01/11/17 01/12/17 01/12/17 01/12/17 07:00 15:00 23:00 07:00 15:00 23:00 Intake Total 240 ml 2904 ml 508 ml 1555 ml 120 ml Output Total 1000 ml 600 ml Balance 240 ml 2904 ml 508 ml 555 ml -480 ml Intake Oral 240 ml 1650 ml IV Total 854 ml 1200 ml 100 ml Packed Cells 400 ml 350 ml Platelets 508 ml Blood Product IV Normal Saline Flush 5 ml 20 ml Output Urine Total 1000 ml 600 ml # Voids 1 2 # Bowel Movements 1 1 Laboratory Laboratory Tests Test 01/11/17 16:40 01/11/17 22:25 01/11/17 23:45 01/12/17 07:25 Prothrombin Time 14.7 Prothromb Time International Ratio 1.3 Fibrinogen 600 605 Urine Color DARK-BROWN Urine Turbidity HAZY Urine pH 6.0 Urine Specific [place] 1.021 Urine Protein 30 Urine Glucose (UA) NEG Urine Ketones NEG Urine Occult Blood LARGE Urine Nitrite NEG Urine Bilirubin SMALL Urine Urobilinogen LESS THAN 2.0 Urine Leukocyte Esterase NEG Urine RBC Urine WBC 27 Urine Bacteria RARE Microscopic Urinalysis Comment CULTURE INDICATED White Blood Count 0.2 0.3 Red Blood Count 2.10 2.35 Hemoglobin 6.8 7.5 Hematocrit 18.8 21.0 Mean Corpuscular Volume 89.8 89.2 Mean Corpuscular Hemoglobin 32.4 31.7 Mean Corpuscular Hemoglobin Concent 36.1 35.6 Red Cell Distribution Width 14.9 14.9 Platelet Count 16 7 Mean Platelet Volume 8.4 7.8 Neutrophils (%) (Auto) 0.8 Lymphocytes (%) (Auto) 89.4 Monocytes (%) (Auto) 9.8 Eosinophils (%) (Auto) 0.0 Basophils (%) (Auto) 0.0 Neutrophils # (Auto) 0.0 Lymphocytes # (Auto) 0.2 Monocytes # (Auto) 0.0 Eosinophils # (Auto) 0.0 Basophils # (Auto) 0.0 CBC Comment AUTO DIFF Differential Total Cells Counted 10 Neutrophils % (Manual) 10 Lymphocytes % 90 Neutrophils # (Manual) 0.0 Differential Comment FINAL DIFF MANUAL Platelet Estimate RARE Platelet Morphology Comment NORMAL Blood Urea Nitrogen 14 Creatinine 0.57 Random Glucose 95 Total Protein 4.7 Albumin 1.6 Calcium Level 6.7 Alkaline Phosphatase 37 Aspartate Amino Transf (AST/SGOT) LESS THAN 3 Alanine Aminotransferase (ALT/SGPT) 12 Lactate Dehydrogenase 113 Total Bilirubin 5.0 Direct Bilirubin 2.2 Sodium Level 134 Potassium Level 3.4 Chloride Level 99 Carbon Dioxide Level 27.0 Anion Gap 8 Estimat Glomerular Filtration Rate 176 Protein Corrected Calcium 7.9 Indirect Bilirubin 2.8 Date/Time Source Procedure Growth Status 01/11/17 18:43 Blood Other Aerobic Blood Culture - Preliminary NO GROWTH IN 1 DAY Resulted 01/11/17 18:43 Blood Other Anaerobic Blood Culture - Preliminary NO GROWTH IN 1 DAY Resulted 12/26/16 17:10 Cerebral Spinal Fluid Lumbar Puncture Acid Fast Stain - Final NO ACID FAST BACILLI SEEN Resulted 12/26/16 17:10 Cerebral Spinal Fluid Lumbar Puncture Mycobacterial Culture - Preliminary NO GROWTH IN 2 WEEKS Resulted 01/09/17 19:57 Stool Stool Stool Occult Blood (SUNDAR) - Final HEMOCCULT POSITIVE Complete 12/28/16 17:50 Bronchial Washings Left Lower Lobe Fungal Smear - Final NO FUNGAL ELEMENTS SEEN. Resulted 12/28/16 17:50 Bronchial Washings Left Lower Lobe Fungal Culture - Preliminary NO GROWTH IN 2 WEEKS Resulted 01/11/17 22:25 Urine Clean Catch Urine Culture - Preliminary RESULTS PENDING Resulted Imaging Last Impressions Abdomen MRI 01/12/17 0000 Signed Impressions: Service Date/Time: Thursday, January 12, 2017 09:47 - CONCLUSION: No evidence of acute abdominal process. Splenic hemangiomas Humza Decker MD Lower Extremity Ultrasound 01/10/17 0000 Signed Impressions: Service Date/Time: Tuesday, January 10, 2017 21:50 - CONCLUSION: Negative exam with no evidence of deep venous thrombosis. Jose Nicholson MD Hepatobiliary Scan Nuclear Medicine 01/09/17 0000 Signed Impressions: Service Date/Time: Monday, January 09, 2017 10:01 - CONCLUSION: 1. The patient refused imaging beyond 45 minutes. There is activity seen within small bowel and gallbladder with no evidence for cystic duct obstruction. Danie Kelly MD Abdomen/Pelvis CT 01/08/17 0000 Signed Impressions: Service Date/Time: Sunday, January 08, 2017 14:43 - CONCLUSION: 1. No evidence of mesenteric artery stenosis 2. Small amount of free fluid is present in the pelvis Humza Decker MD Abdomen Ultrasound 01/07/17 0000 Signed Impressions: Service Date/Time: December 01:11 - CONCLUSION: 1. No acute findings. Liver enlarged. Spleen mildly prominent at 14 cm. Leander Fiore MD Chest X-Ray 01/03/17 0600 Signed Impressions: Service Date/Time: Tuesday, January 03, 2017 04:42 - CONCLUSION: Normal examination. Right IJ [id number] catheter in excellent position. Lungs are clear. Enrique Ramos MD Port Line Insertion 12/31/16 0000 Signed Impressions: Service Date/Time: December 15:15 - CONCLUSION: Uncomplicated ultrasound and fluoroscopic guided implanted central venous port catheter placement as described in detail above. An 8 [place] [employer] port was placed. Nilson Bonner MD Gated Heart Nuclear Medicine 12/30/16 0000 Signed Impressions: Service Date/Time: Friday, December 30, 2016 13:16 - CONCLUSION: Negative exam. Calculated ejection fraction of 56%% with adequate wall motion throughout. Bean Dugan MD Bone Biopsy CT 12/28/16 0000 Signed Impressions: Service Date/Time: Wednesday, December 28, 2016 16:53 - CONCLUSION: 1. Uncomplicated CT guided bone marrow aspirate. 2. Uncomplicated CT guided bone marrow biopsy. Grant Jones MD Brain MRI 12/27/16 0000 Signed Impressions: Service Date/Time: Tuesday, December 27, 2016 21:58 - CONCLUSION: Unremarkable study. Patricia Contreras MD Lumbar Puncture Fluoroscopy 12/26/16 0000 Signed Impressions: Service Date/Time: Monday, December 26, 2016 17:03 - CONCLUSION: Uncomplicated fluoroscopically guided lumbar puncture with pressures as above. Nilson Bonner MD Chest CT 12/26/16 0000 Signed Impressions: Service Date/Time: Monday, December 26, 2016 17:45 - CONCLUSION: Bibasilar air space process characteristic of pneumonia. Patricia Contreras MD Head CT 12/25/16 194 Signed Impressions: Service Date/Time: Sunday, December 25, 2016 19:50 - CONCLUSION: Negative noncontrast head CT. Audie Maria MD Physical Exam HEENT: Normocephalic; atraumatic; no jaundice. NECK: Neck is supple CHEST: CTA CARDIAC: RRR with no murmur gallop or rubs. ABDOMEN: Soft, obese, nondistended, RUQ TTP; bowel sounds are present x 4 EXTREMITIES: No clubbing, cyanosis, or edema. SKIN: Normal; no rash; no jaundice. TUBE COREMAKER: No focal deficits; alert and oriented x 3. Assessment and Plan Plan ASSESSMENT - Abdominal pain, unclear etiology. Reports epigastric pain. CT showing splenic infarct. CTA no mesenteric ischemia, small amount free fluid pelvis. HIDA (pt refused imaging beyond 45 min) but negative for cystic duct obstruction. MRI abd no acute processes, splenic hemangiomas - Diarrhea, C diff negative, stool cx neg, heme pos stool - Acute myeloid leukemia, Oncology following, induction therapy PLAN - SAMANTHA - Cont. Protonix BID - Cont. Carafate - EGD +/- colonoscopy when stable, if pain not resolved - Monitor HH, transfuse as necessary - Monitor labs - Supportive care - Further recommendations to follow based on results of above. Patient seen and examined by Dr. Rosas and myself and this note is written on his behalf. Shelley Piña Jan 12, 2017 16:04
--- NOTE | 2017-01-12 18:34 | HHI.PR ---
Subjective Remarks Follow up on patient with neutropenic fever, AML, abdominal pain. Patient seen and examined today. Patient reported ongoing abdominal pain. Noted it to be a "box" in the "middle of my abdomen." pain is reported to be better controlled with pain medication. Reported lower legs pain as improved yet continues with and bilateral ankle pain. Patient reports persistent nausea relieved with IV Zofran and oral Phenergan. Denies vomiting. Reported he has had improved appetite and is eating more. Denies any chest pain or shortness of breath. Discussed with nursing staff.No new issues noted or reproted overnight or since start of shift. Objective Vitals Vital Signs Date Time Temp Pulse Resp B/P (MAP) Pulse Ox O2 Delivery O2 Flow Rate FiO2 01/12/17 17:15 100.9 120 18 156/69 98 01/12/17 16:58 16 01/12/17 16:55 100.3 118 18 132/60 97 01/12/17 16:14 95 21 01/12/17 16:00 100.6 113 18 110/53 (72) 96 01/12/17 13:44 99.4 110 16 127/58 95 01/12/17 13:08 99.9 113 16 126/66 95 01/12/17 12:36 99.9 114 18 140/65 93 01/12/17 12:31 99.9 116 18 120/58 (78) 96 01/12/17 11:48 16 01/12/17 09:00 Room Air 01/12/17 08:00 99.5 116 18 115/56 (75) 98 01/12/17 05:41 96.5 110 14 119/56 95 01/12/17 05:37 14 01/12/17 04:00 106 01/12/17 03:15 96.5 110 14 121/53 95 01/12/17 02:59 97.1 111 13 116/56 96 01/12/17 02:40 99.9 110 16 113/49 94 01/12/17 01:56 14 01/12/17 00:00 97.2 124 18 105/49 (67) 92 01/12/17 00:00 118 01/11/17 22:00 14 01/11/17 20:05 119 01/11/17 20:05 Room Air 3.00 21 01/11/17 20:00 97.9 123 18 107/46 (66) 95 01/11/17 18:46 20 I/O 01/11/17 01/11/17 01/11/17 01/12/17 01/12/17 01/12/17 07:00 15:00 23:00 07:00 15:00 23:00 Intake Total 240 ml 2904 ml 508 ml 1555 ml 327 ml 260 ml Output Total 1000 ml 600 ml 1000 ml Balance 240 ml 2904 ml 508 ml 555 ml -273 ml -740 ml Intake Oral 240 ml 1650 ml IV Total 854 ml 1200 ml 100 ml Packed Cells 400 ml 350 ml 250 ml Platelets 508 ml 207 ml Blood Product IV Normal Saline Flush 5 ml 20 ml 10 ml Output Urine Total 1000 ml 600 ml 1000 ml # Voids 1 2 # Bowel Movements 1 1 Result Diagram: 01/12/17 0725 01/12/17 0725 Imaging Last Impressions Abdomen MRI 01/12/17 0000 Signed Impressions: Service Date/Time: Thursday, January 12, 2017 09:47 - CONCLUSION: No evidence of acute abdominal process. Splenic hemangiomas Humza Decker MD Lower Extremity Ultrasound 01/10/17 0000 Signed Impressions: Service Date/Time: Tuesday, January 10, 2017 21:50 - CONCLUSION: Negative exam with no evidence of deep venous thrombosis. Jose Nicholson MD Hepatobiliary Scan Nuclear Medicine 01/09/17 0000 Signed Impressions: Service Date/Time: Monday, January 09, 2017 10:01 - CONCLUSION: 1. The patient refused imaging beyond 45 minutes. There is activity seen within small bowel and gallbladder with no evidence for cystic duct obstruction. Danie Kelly MD Abdomen/Pelvis CT 01/08/17 0000 Signed Impressions: Service Date/Time: Sunday, January 08, 2017 14:43 - CONCLUSION: 1. No evidence of mesenteric artery stenosis 2. Small amount of free fluid is present in the pelvis Humza Decker MD Abdomen Ultrasound 01/07/17 0000 Signed Impressions: Service Date/Time: December 01:11 - CONCLUSION: 1. No acute findings. Liver enlarged. Spleen mildly prominent at 14 cm. Leander Fiore MD Chest X-Ray 01/03/17 0600 Signed Impressions: Service Date/Time: Tuesday, January 03, 2017 04:42 - CONCLUSION: Normal examination. Right IJ Nhrfue-n-Hyqj catheter in excellent position. Lungs are clear. Enrique Ramos MD Port Line Insertion 12/31/16 0000 Signed Impressions: Service Date/Time: December 15:15 - CONCLUSION: Uncomplicated ultrasound and fluoroscopic guided implanted central venous port catheter placement as described in detail above. An 8 [place] [employer] port was placed. Nilson Bonner MD Gated Heart Nuclear Medicine 12/30/16 0000 Signed Impressions: Service Date/Time: Friday, December 30, 2016 13:16 - CONCLUSION: Negative exam. Calculated ejection fraction of 56%% with adequate wall motion throughout. Bean Dugan MD Bone Biopsy CT 12/28/16 Signed Impressions: Service Date/Time: Wednesday, December 28, 2016 16:53 - CONCLUSION: 1. Uncomplicated CT guided bone marrow aspirate. 2. Uncomplicated CT guided bone marrow biopsy. Grant Jones MD Brain MRI 12/27/16 Signed Impressions: Service Date/Time: Tuesday, December 27, 2016 21:58 - CONCLUSION: Unremarkable study. Patricia Contreras MD Lumbar Puncture Fluoroscopy 12/26/16 Signed Impressions: Service Date/Time: Monday, December 26, 2016 17:03 - CONCLUSION: Uncomplicated fluoroscopically guided lumbar puncture with pressures as above. Nilson Bonner MD Chest CT 12/26/16 Signed Impressions: Service Date/Time: Monday, December 26, 2016 17:45 - CONCLUSION: Bibasilar air space process characteristic of pneumonia. Patricia Contreras MD Head CT 12/25/161940 Signed Impressions: Service Date/Time: Sunday, December 25, 2016 19:50 - CONCLUSION: Negative noncontrast head CT. Audie Maria MD Objective Remarks GENERAL: Pt encountered laying a bed, mild distress. SKIN: Warm and dry. tattoos noted. HEAD: Normocephalic. EYES: No scleral icterus. No injection or drainage. NECK: Supple, trachea midline. No lymphadenopathy. CARDIOVASCULAR: Regular rate and rhythm without murmurs, gallops, or rubs. RESPIRATORY: Breath sounds equal bilaterally. No wheezes rhonchi or crackles. No accessory muscle use. GASTROINTESTINAL: Abdomen soft and nondistended. mild epigastric tenderness elicited upon palpation. MUSCULOSKELETAL: No cyanosis, or edema. PSYCHIATRIC: Appropriate mood and affect; insight and judgment normal. Patient was pleasant and cooperative. Procedures 12/31 Eaeiyb-e-Ebrl placement Medications and IVs Current Medications Medications (Trade) Dose Ordered Sig/Emma Route Start Time Stop Time Status Last Admin (NS Flush) 2 ml UNSCH PRN IV FLUSH 12/25/16 23:00 12/30/16 04:59 (NS Flush) 2 ml BID IV FLUSH 12/26/16 09:00 01/09/17 09:27 (Tylenol) 650 mg Q6H PRN PO 12/25/16 23:00 01/10/17 09:39 (Milk Of Magnesia Liq) 30 ml Q12H PRN PO 12/25/16 23:00 (Senokot) 17.2 mg Q12H PRN PO 12/25/16 23:00 (Dulcolax Supp) 10 mg DAILY PRN RECTAL 12/25/16 23:00 (Lactulose Liq) 30 ml DAILY PRN PO 12/25/16 23:00 (Tessalon) 100 mg Q4H PRN PO 12/26/16 05:15 12/26/16 15:12 (Benadryl) 25 mg Q4H PRN PO 12/27/16 04:15 01/12/17 12:01 (Tylenol) 650 mg Q4H PRN PO 12/27/16 04:15 01/12/17 12:01 (Bactroban 2% Oint) 1 applic TID TOPICAL 12/27/16 14:15 01/12/17 18:00 (Tums Chew) 500 mg Q6H PRN CHEW 12/28/16 14:00 (NS Flush) 5 ml DAILY IV FLUSH 12/30/16 09:00 01/11/17 08:06 (Heparin Central Flush) 500 units DAILY IV FLUSH 12/30/16 09:00 (NS Flush) 5 ml UNSCH PRN IV FLUSH 12/30/16 06:30 (Heparin Central Flush) 500 units UNSCH PRN IV FLUSH 12/30/16 06:30 12/31/16 15:45 (Heparin Central Flush) 500 units UNSCH IV FLUSH 12/31/16 15:45 (NS Flush) 5 ml UNSCH PRN IVF 12/31/16 15:45 (Heparin Central Flush) 250 units UNSCH PRN IV FLUSH 12/31/16 15:45 (Phenergan) 25 mg Q4H PRN PO 01/04/17 10:15 01/12/17 01:39 (Zyloprim) 200 mg DAILY PO 01/06/17 09:00 01/12/17 11:07 (Levsin) 0.25 mg Q4H PRN PO 01/06/17 09:30 01/06/17 10:06 Sodium Chloride 1,000 ml @ 75 mls/hr [id number] IV 01/07/17 14:00 01/12/17 14:00 (Carafate Liq) 1 gm ACHS PO 01/09/17 16:00 01/12/17 16:23 Piperacillin Sod/ Tazobactam Sod 100 ml @ 200 mls/hr Q8H IV 01/09/17 15:00 01/12/17 16:24 (Lactinex) 1 tab TID PO 01/10/17 18:00 01/12/17 18:14 Pantoprazole Sodium 80 mg/ Sodium Chloride 100 ml @ 10 mls/hr CONTINUOUS IV 01/11/17 16:00 01/12/17 05:36 (Narcan Inj) 0.4 mg UNSCH PRN IV 01/11/17 15:15 (Dilaudid BOATSWAIN MATE Inj) 6 mg UNSCH IV 01/11/17 15:15 01/12/17 16:58 BOATSWAIN MATE Dosage Infused (Pha) 1 Q8HR OTHER 01/11/17 15:45 01/12/17 14:00 (Zofran Inj) 8 mg Q8H PRN IV PUSH 01/11/17 17:15 Future hold 01/11/17 22:59 Sodium Chloride 250 ml @ 15 mls/hr ONCE ONCE IV 01/12/17 10:00 01/13/17 02:39 01/12/17 10:00 (Dilaudid Pf Inj) 2 mg Q4H PRN IV PUSH 01/12/17 15:30 Urinary Catheter: No A/P Problem List: (1) SIRS (systemic inflammatory response syndrome) ICD Code: R65.10 - Systemic inflammatory response syndrome (SIRS) of non- infectious origin without acute organ dysfunction Status: Acute (2) GABRIELA (acute kidney injury) ICD Code: N17.9 - Acute kidney failure, unspecified Status: Acute (3) Thrombocytopenia ICD Code: D69.6 - Thrombocytopenia, unspecified Status: Acute (4) Lymphocytosis ICD Code: D72.820 - Lymphocytosis (symptomatic) Status: Acute (5) Anemia ICD Code: D64.9 - Anemia, unspecified Status: Acute Assessment and Plan Mr. Duarte is 26 yo, with no significant past medical history. 1. Neutropenic fever: Continue monitoring for fever per IDs recommendations. Afebrile. Blood cultures show no growth in 5 days x 2. CSF cultures and BAL shows no growth. 2. Neutropenia - secondary to AML . See treatment below 3. AML - heme/onc managing with induction therapy 4. 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 s/p transfusion 1 units PRBCs and 2 unit platelets yesterday. H/H 7.1/20.2, plts 4 this am. pt continues to receive blood products. 5. Abdominal pain - splenic infarcts likely contributing. HIDA shows no significant abnormalities. CTA Abd showing no signs of occlusive atherosclerosis , C.diff negative x 2. On IV Dilaudid for this. Initial stool occults were negative in late January, 01/09 hemoccult positive. Unable to tolerate EGD at this time due to low platelets. agree w/ carafate, protonix, and abx. H.PYLORI ANTIGEN pending. Started on Zosyn empirically for possible neutropenic enterocolitis per hem/onc. MRI negative for acute findings. Splenic hemangiomas noted. 6. Diarrhea - stool studies pending. Lactobacillus added to regimen. C diff negative x 2. 7. thrombocytopenia - 2/2 AML, transfuse as needed 8. 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 Prolonged immobilization. Doppler studies negative for DVT. PT/OT eval/tx. IS and acapella use. Case discussed with pt, Nursing staff and Dr. Bañuelos Discharge Planning Discharge planning is ongoing. Hong Benjamin Jr. Jan 12, 2017 18:34
[2017-01-12] MEDS: HYDROmorphone HCL PF 2 MG/ML VIAL IV PUSH PRN (20:05)
[2017-01-12 21:31] LABS: HEMATOCRIT 24.6 % (39.0-51.0); MEAN CELL VOLUME 88.9 FL (80.0-100.0); MEAN CORPUSCULAR HEMOGLOBIN 30.7 PG (27.0-34.0); MEAN CORPUSCULAR HGB CONC 34.6 % (32.0-36.0); RED BLOOD COUNT 2.77 MIL/MM3 (4.50-5.90); RED CELL DISTRIBUTION WIDTH 14.7 % (11.6-17.2); WHITE BLOOD COUNT 0.2 TH/MM3 (4.0-11.0)
[2017-01-12 21:32] LABS: REVIEW FLAG FINAL
[2017-01-12 21:33] LABS: PLATELET COUNT 8 TH/MM3 (150-450)
[2017-01-13] VITALS: BP 115/67; PULSE 130; RESP 18; TEMP 101.1; O2SAT 98
[2017-01-13] MEDS: HYDROmorphone HCL PF 2 MG/ML VIAL IV PUSH PRN ×6 (00:41→22:27)
[2017-01-13] MEDS: ONDANSETRON HCL 4 MG/2 ML VIAL IV PUSH PRN ×3 (00:42→14:44)
[2017-01-13] MEDS: PANTOPRAZOLE INJ 80 MG in SODIUM CHLORIDE 0.9% INJ 100 ML IV SCH ×2 (01:25→14:25)
[2017-01-13] MEDS: HYDROmorphone HCL PCA 6 MG/30 ML IV SCH ×2 (03:15→15:51)
[2017-01-13 04:00] VITALS: BP 123/56; PULSE 111; RESP 18; TEMP 97.8; O2SAT 97
[2017-01-13] MEDS: SUCRALFATE 1 GM/10 ML CUP PO SCH ×4 (05:36→21:57)
[2017-01-13] MEDS: PROMETHAZINE HCL 25 MG TAB PO PRN ×4 (05:36→22:03)
[2017-01-13] MEDS: PIPERACIL-TAZO 4.5 GM PREMIX 100 ML IV SCH ×3 (05:37→21:57)
[2017-01-13] MEDS: PCA - TOTAL MG DILAUDID DELIVERED PER SHIFT OTHER SCH ×3 (05:47→22:00)
[2017-01-13 06:30] LABS: HEMATOCRIT 24.2 % (39.0-51.0); MEAN CELL VOLUME 89.2 FL (80.0-100.0); MEAN CORPUSCULAR HEMOGLOBIN 31.4 PG (27.0-34.0); MEAN CORPUSCULAR HGB CONC 35.2 % (32.0-36.0); RED BLOOD COUNT 2.71 MIL/MM3 (4.50-5.90); RED CELL DISTRIBUTION WIDTH 14.5 % (11.6-17.2); WHITE BLOOD COUNT 0.3 TH/MM3 (4.0-11.0)
[2017-01-13 06:41] LABS: HEMO FLAGS AUTO DIFF
[2017-01-13 06:44] LABS: PLATELET COUNT 2 TH/MM3 (150-450)
[2017-01-13 07:39] LABS: ALKALINE PHOSPHATASE 42 U/L (45-117); ALT (GPT) 12 U/L (12-78); ANION GAP 7 MEQ/L (5-15); AST (GOT) LESS THAN 3 U/L (15-37); BICARBONATE 30.2 MEQ/L (21.0-32.0); BLOOD UREA NITROGEN 15 MG/DL (7-18); CHLORIDE 96 MEQ/L (98-107); GLOMERULAR FILTRATION RATE 162 ML/MIN (>89); INDIRECT BILIRUBIN 1.4 MG/DL (0.0-0.8); POTASSIUM 3.3 MEQ/L (3.5-5.1); SODIUM (NA) 133 MEQ/L (136-145); TOTAL BILIRUBIN ADULT 2.9 MG/DL (0.2-1.0)
[2017-01-13 07:51] LABS: CALCIUM-PROTEIN CORRECTED 8.4 MG/DL (8.5-10.1)
[2017-01-13] MEDS ORDERED: SODIUM CHLOR 0.9% 250 ML INJ 250 ML IV ONE (08:30)
[2017-01-13 08:34] LABS: WBC DIFF SAMPLE 40
[2017-01-13 08:35] LABS: PLATELET ESTIMATE SMEAR RARE (NORMAL); PLATELET MORPHOLOGY NORMAL (NORMAL); SCAN/DIFF FINAL DIFF MANUAL
[2017-01-13] MEDS: LACTOBACILLUS ACIDOPHILUS TAB PO SCH ×2 (09:00→12:57)
[2017-01-13 10:00] VITALS: BP 146/66; PULSE 115; RESP 20; TEMP 97.8; O2SAT 96
[2017-01-13] MEDS: ALLOPURINOL 100 MG TAB PO SCH (10:34)
[2017-01-13] MEDS: Hickman Catheter Daily NS Lock Flush IV FLUSH SCH (10:42)
[2017-01-13] MEDS: SODIUM CHLORIDE 0.9% FLUSH 10 ML FLUSH IV FLUSH SCH ×2 (10:42→21:00)
[2017-01-13] MEDS: MUPIROCIN 2% OINT 22 GM TUBE TOPICAL SCH ×3 (10:42→17:35)
--- NOTE | 2017-01-13 11:03 | HHI.PR ---
Subjective Remarks Chart reviewed, patient became febrile overnight, MAXIMUM TEMPERATURE of 101.3. He had been afebrile for days before this but unfortunately this has recurred. Patient himself says that he vomited overnight and was told that his emesis was somewhat bloody, says he feels worse than yesterday, says he just wants to go home. Is asking for more pain medication Objective Vital Signs Date Time Temp Pulse Resp B/P (MAP) Pulse Ox O2 Delivery O2 Flow Rate FiO2 01/13/17 10:00 97.8 115 20 146/66 (92) 96 01/13/17 05:47 16 01/13/17 04:00 111 01/13/17 04:00 97.8 111 18 123/56 (78) 97 01/13/17 03:15 18 01/13/17 00:00 130 01/13/17 00:00 101.1 130 18 115/67 (83) 98 01/12/17 22:11 97.8 01/12/17 22:00 17 01/12/17 20:00 123 01/12/17 20:00 93 Room Air 01/12/17 20:00 101.3 108 18 114/63 (80) 93 01/12/17 17:15 100.9 120 18 156/69 98 01/12/17 16:58 16 01/12/17 16:55 100.3 118 18 132/60 97 01/12/17 16:14 95 21 01/12/17 16:00 100.6 113 18 110/53 (72) 96 01/12/17 13:44 99.4 110 16 127/58 95 01/12/17 13:08 99.9 113 16 126/66 95 01/12/17 12:36 99.9 114 18 140/65 93 01/12/17 12:31 99.9 116 18 120/58 (78) 96 01/12/17 11:48 16 I/O 01/12/17 01/12/17 01/12/17 01/13/17 01/13/17 01/13/17 07:00 15:00 23:00 07:00 15:00 23:00 Intake Total 1555 ml 327 ml 590 ml 240 ml Output Total 1000 ml 600 ml 1000 ml Balance 555 ml -273 ml -410 ml 240 ml Intake Oral 240 ml IV Total 1200 ml 100 ml 80 ml Packed Cells 350 ml 500 ml Platelets 207 ml Blood Product IV Normal Saline Flush 5 ml 20 ml 10 ml Output Urine Total 1000 ml 600 ml 1000 ml # Voids 1 # Bowel Movements 1 1 Result Diagram: 01/13/1753901/13/17539 Objective Remarks GENERAL: Lying in bed relatively still, awake and alert, is sad, worried, and in distress from pain, says he feels cold RESPIRATORY: No crackles heard anteriorly, clear breath sounds otherwise, not coughing MSCULOSKELETAL: No cyanosis, or edema. A/P Assessment and Plan 1. Neutropenic fever: HAS RECURRED. On abx currently. BC's were re-drawn. Previous. Negative blood cultures and CSF cultures and bronchial alveolar lavage as well. Re-consulting ID. 2. Neutropenia - secondary to AML . See treatment below 3. AML - heme/onc managing with induction therapy 4. 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 5. Abdominal pain - splenic infarcts likely contributing, still has what I think is an additional source from his right side of his abdomen which could be peptic ulcer disease or gallbladder, HIDA shows no significant abnormalities. CTA Abd showing no signs of occlusive atherosclerosis, C.diff negative. On IV Dilaudid for this and TIE SAWYER. Now has + stool occults but not stable for endoscopic procedures given severe thrombocytopenia. Stool Antigen for H. pylori , d/w nursing to touch base w/ lab. . On zosyn or presumed typhilitis. 6. emesis - 2/2 pain? unable to scope 2/2 #7, h. pylori stool pending 7. thrombocytopenia - 2/2 AML, transfuse as needed 8. 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
--- NOTE | 2017-01-13 11:14 | PD.ONC.PN ---
Subjective Subjective Remarks Tmax 101.1 overnight. Patient had diarrhea and vomiting overnight. still with severe unrelenting abdominal pain, improved with dilaudid. Objective Data Date Time Temp Pulse Resp B/P (MAP) Pulse Ox O2 Delivery O2 Flow Rate FiO2 01/13/17 10:00 97.8 115 20 146/66 (92) 96 01/13/17 05:47 16 01/13/17 04:00 111 01/13/17 04:00 97.8 111 18 123/56 (78) 97 01/13/17 03:15 18 01/13/17 00:00 130 01/13/17 00:00 101.1 130 18 115/67 (83) 98 01/12/17 22:11 97.8 01/12/17 22:00 17 01/12/17 20:00 123 01/12/17 20:00 93 Room Air 01/12/17 20:00 101.3 108 18 114/63 (80) 93 01/12/17 17:15 100.9 120 18 156/69 98 01/12/17 16:58 16 01/12/17 16:55 100.3 118 18 132/60 97 01/12/17 16:14 95 21 01/12/17 16:00 100.6 113 18 110/53 (72) 96 01/12/17 13:44 99.4 110 16 127/58 95 01/12/17 13:08 99.9 113 16 126/66 95 01/12/17 12:36 99.9 114 18 140/65 93 01/12/17 12:31 99.9 116 18 120/58 (78) 96 01/12/17 11:48 16 01/13/17 01/13/17 01/13/17 06:59 14:59 22:59 Intake Total 240 ml Balance 240 ml Result Diagram: 01/13/17 0540 01/13/17 0540 Laboratory Results Laboratory Tests Test 01/12/17 21:00 01/13/17 05:40 White Blood Count 0.2 TH/MM3 0.3 TH/MM3 Red Blood Count 2.77 MIL/MM3 2.71 MIL/MM3 Hemoglobin 8.5 GM/DL 8.5 GM/DL Hematocrit 24.6 % 24.2 % Mean Corpuscular Volume 88.9 FL 89.2 FL Mean Corpuscular Hemoglobin 30.7 PG 31.4 PG Mean Corpuscular Hemoglobin Concent 34.6 % 35.2 % Red Cell Distribution Width 14.7 % 14.5 % Platelet Count 8 TH/MM3 2 TH/MM3 Mean Platelet Volume 7.7 FL 11.9 FL CBC Comment AUTO DIFF Differential Total Cells Counted 40 Lymphocytes % 100 % Neutrophils # (Manual) 0.0 TH/MM3 Differential Comment FINAL DIFF MANUAL Platelet Estimate RARE Platelet Morphology Comment NORMAL Red Cell Morphology Comment NORMAL Blood Urea Nitrogen 15 MG/DL Creatinine 0.61 MG/DL Random Glucose 116 MG/DL Total Protein 4.5 GM/DL Albumin 1.6 GM/DL Calcium Level 7.0 MG/DL Alkaline Phosphatase 42 U/L Aspartate Amino Transf (AST/SGOT) LESS THAN 3 U/L Alanine Aminotransferase (ALT/SGPT) 12 U/L Total Bilirubin 2.9 MG/DL Direct Bilirubin 1.5 MG/DL Sodium Level 133 MEQ/L Potassium Level 3.3 MEQ/L Chloride Level 96 MEQ/L Carbon Dioxide Level 30.2 MEQ/L Anion Gap 7 MEQ/L Estimat Glomerular Filtration Rate 162 ML/MIN Protein Corrected Calcium 8.4 MG/DL Indirect Bilirubin 1.4 MG/DL Culture Results Microbiology Date/Time Source Procedure Growth Status 01/12/17 21:00 Blood Line Aerobic Blood Culture Pending Received 01/12/17 21:00 Blood Line Anaerobic Blood Culture Pending Received 01/12/17 20:54 Blood Line Aerobic Blood Culture Pending Received 01/12/17 20:54 Blood Line Anaerobic Blood Culture Pending Received 01/11/17 18:43 Blood Other Aerobic Blood Culture - Preliminary NO GROWTH IN 1 DAY Resulted 01/11/17 18:43 Blood Other Anaerobic Blood Culture - Preliminary NO GROWTH IN 1 DAY Resulted 01/11/17 18:37 Blood Peripheral Aerobic Blood Culture - Preliminary NO GROWTH IN 1 DAY Resulted 01/11/17 18:37 Blood Peripheral Anaerobic Blood Culture - Preliminary NO GROWTH IN 1 DAY Resulted 01/11/17 22:25 Urine Clean Catch Urine Culture - Final NO GROWTH IN 48 HOURS. Complete Administered Medications Medications (Trade) Dose Ordered Sig/Emma Route PRN Reason Start Time Stop Time Status Last Admin Dose Admin Sodium Chloride (NS Flush) 2 ml UNSCH PRN IV FLUSH FLUSH AFTER USING IV ACCESS 12/25/16 23:00 12/30/16 04:59 Sodium Chloride (NS Flush) 2 ml BID IV FLUSH 8/19/17 09:00 01/13/17 10:42 Acetaminophen (Tylenol) 650 mg Q6H PRN PO FEVER>100.4 12/25/16 23:00 01/12/17 20:04 Benzonatate (Tessalon) 100 mg Q4H PRN PO COUGH 12/26/16 05:15 12/26/16 15:12 Diphenhydramine HCl (Benadryl) 25 mg Q4H PRN PO SEE LABEL COMMENTS 12/27/16 04:15 01/12/17 12:01 Acetaminophen (Tylenol) 650 mg Q4H PRN PO SEE LABEL COMMENTS 12/27/16 04:15 01/12/17 12:01 Mupirocin (Bactroban 2% Oint) 1 applic TID TOPICAL 12/27/16 14:15 01/12/17 18:00 Sodium Chloride (NS Flush) 5 ml DAILY IV FLUSH 12/30/16 09:00 01/13/17 10:42 Heparin Sodium (Porcine) (Heparin Central Flush) 500 units UNSCH PRN IV FLUSH SEE PROTOCOL TABLE 12/30/16 06:30 12/31/16 15:45 Promethazine HCl (Phenergan) 25 mg Q4H PRN PO nausea or vomitting 01/04/17 10:15 01/13/17 10:33 Allopurinol (Zyloprim) 200 mg DAILY PO 01/06/17 09:00 01/13/17 10:34 Hyoscyamine Sulfate (Levsin) 0.25 mg Q4H PRN PO CRAMPS 01/06/17 09:30 01/06/17 10:06 Sodium Chloride 1,000 ml @ 75 mls/hr [id number] IV 01/07/17 14:00 01/12/17 23:31 Sucralfate (Carafate Liq) 1 gm ACHS PO 01/09/17 16:00 01/13/17 05:36 Piperacillin Sod/ Tazobactam Sod 100 ml @ 200 mls/hr Q8H IV 01/09/17 15:00 01/13/17 05:37 Lactobacillus Acidophilus (Lactinex) 1 tab TID PO 01/10/17 18:00 01/13/17 09:00 Pantoprazole Sodium 80 mg/ Sodium Chloride 100 ml @ 10 mls/hr CONTINUOUS IV 01/11/17 16:00 01/13/17 01:25 Hydromorphone HCl (Dilaudid INTELLIGENCE OFFICER Inj) 6 mg UNSCH IV 01/11/17 15:15 01/13/17 03:15 INTELLIGENCE OFFICER Dosage Infused (Pha) 1 Q8HR OTHER 01/11/17 15:45 01/13/17 05:47 Ondansetron HCl (Zofran Inj) 8 mg Q8H PRN IV PUSH NAUSEA 01/11/17 17:15 Future hold 01/13/17 10:34 Hydromorphone HCl (Dilaudid Pf Inj) 2 mg Q4H PRN IV PUSH SEVERE BREAKTHROUGH PAIN 01/12/17 15:30 01/13/17 10:33 Objective Remarks GENERAL: Young man, lying in bed, complaining of abdominal pain. SKIN: Warm and dry. HEAD: Normocephalic. EYES: No injection or drainage. NECK: Supple, trachea midline. CARDIOVASCULAR: Regular rate and rhythm RESPIRATORY: Breath sounds equal bilaterally. No accessory muscle use. GASTROINTESTINAL: soft, ttp along epigastric region. MUSCULOSKELETAL: No cyanosis NEURO: aox3. normal speech. moving all extremities. 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 Patients with rearrangement of CBFB in AML may have a higher risk of CARPET YARN WINDER OPERATOR involvement at diagnosis or at relapse than patients with other types of AML. Inversion 16 or t(16;16), with or without additional chromosome abnormalities, has been associated with complete remission and improved long-term survival. - MUGA scan shows normal EF and no wall motion abnormalities 12/30/2016 - Port placement by IR completed 12/31/16 - Induction chemotherapy started 12/31-- 7+3 regimen with Daunorubicin 90mg/m2 and Cytaribine 100mg/m2-- Dosing capped at BSA of 2 - CMV negative, HIV and Hep B and C negative 12/31 Day 1: Daunorubicin and Cytarabine 01/01 Day 2: Daunorubicin and Cytarabine 01/02 Day 3: Daunorubicin and Cytarabine 01/03 Day 4: Cytarabine 01/04 Day 5: Cytarabine 01/05 Day 6: Cytarabine 01/06 Day 7: Cytarabine 01/07 Day 8: Last bag cytarabine infusing; will finish approx. 3am. Transfuse 1 unit irr. platelets, 1 unit irr. PRBC's. 01/08: D9. abdominal pain persistent. 2 units pRBC 01/09: D10. 2 additional units pRBC ordered. 1 unit platelets ordered 01/10: D11. 2 units pRBC. 1 unit platelets. + stool hemoccult 01/12: D13: 2 units pRBC. 1 unit platelets. 01/13: D14: 1 unit platelets. BB working to obtain HLA matched platelets (2) Neutropenia ICD Codes: D70.9 - Neutropenia, unspecified Status: Acute Plan: -- ID following -- On Zosyn -- BC on 12/25 = no growth. -- Bronchoscopy on 12/28= no growth. -- BC on 12/29= no growth. --BC 01/12 pending (3) Abdominal pain ICD Codes: R10.9 - Unspecified abdominal pain Plan: -- Epigastric area pain -- Amylase, lipase WNL -- CT abdomen/ pelvis shows splenic infarcts; --CTA abdomen shows no mesenteric emboli --Abdominal U/S: shows no acute findings. enlarged liver and spleen. --GI following --on Protonix, Carafate, Zosyn +stool hemoccult (4) Pancytopenia ICD Codes: D61.818 - Other pancytopenia Plan: - Check Fibrinogen every other day - Transfuse to keep platelets > 10 - Will need irradiated CMV negative blood products -- transfuse to keep Hb > 7 (5) GIB (gastrointestinal bleeding) ICD Codes: K92.2 - Gastrointestinal hemorrhage, unspecified Plan: --+ stool hemoccult on 01/09/17 --on Protonix + Carafate --unable to perform EGD until counts stabilize. --monitor serial H/H, transfuse as needed Assessment 26 y/o male with no major past medical history who was brought in for headache, confusion and cough and found to be pancytopenic and circulating blast cells. Bone marrow biopsy confirmed Acute Myeloid Leukemia: Plan 1. 1 unit platelets today 2. monitor CBC BID 3. continue Dilaudid for pain 4. continue PPI/Carafate 5. reconsult ID for further abx recommendations with new fever. 6. plan for EGD tomorrow, will give 2 units platelets beforehand. Attending Statement The exam, history, and the medical decision-making described in the above note were completed with the assistance of the mid-level provider. I reviewed and agree with the findings presented. I attest that I had a [id number] encounter with the patient on the same day, and personally performed and documented my assessment and findings in the medical record. Fever of 101--abx coverage expanded--now on Vancomycin. repeat Blood cultures drawn on 01/12 Persistent abdominal pain of unclear etiology CT scans/US/HIDA scan and MRI did not provide any obvious cause Possibility of severe gastritis/PUD or Typhlitis (however MRI findings do not reveal changes seen in Typhlitis) Continue Dilaudid INTELLIGENCE OFFICER with prn IV Dilaudid Will ask GI to consider EGD. Transfuse 2 units of HLA matched platelets before EGD. Have additional 2 units available during procedure 1 Unit of platelets given today d.w patient and his family difficult situation in this acutely ill patient. d/w rn o/n events reviewed Problem Qualifiers (1) Acute myelogenous leukemia: Qualified Codes: C92.00 - Acute myeloblastic leukemia, not having achieved remission (2) Neutropenia: Fartun Pagan Jan 13, 2017 11:14 Joey Santoyo MD Jan 13, 2017 23:13
[2017-01-13] MEDS ORDERED: CIPROFLOXACIN 400 MG PREMIX 200 ML IV SCH (11:15)
[2017-01-13] MEDS ORDERED: metroNIDAZOLE 500 MG INJ 100 ML IV SCH (11:15)
[2017-01-13] MEDS: ACETAMINOPHEN 325 MG TAB PO PRN (12:57)
[2017-01-13] MEDS: diphenhydrAMINE HCL 25 MG CAP PO PRN (12:57)
[2017-01-13 13:00] VITALS: BP_SYST 118; BP_SYST 129; BP_DIAS 56; BP_DIAS 58; PULSE 117; PULSE 135; RESP 18; TEMP 97.4; TEMP 98.4; O2SAT 93; O2SAT 95
[2017-01-13] MEDS ORDERED: POTASSIUM CHLORIDE 10 MEQ CONTROLLED RELEASE TAB PO ONE (13:00)
[2017-01-13] MEDS: SODIUM CHLOR 0.9% 1000 ML INJ 1,000 ML IV SCH (14:23)
[2017-01-13] MEDS: NS + KCL 20 MEQ INJ 1,000 ML IV SCH ×2 (15:00→20:00)
[2017-01-13 15:37] LABS: APTT (PATIENT) 38.1 SEC (24.3-30.1); INTERNATIONAL NORMALIZED RATIO 1.5 RATIO; PROTHROMBIN TIME - PATIENT 16.8 SEC (9.8-11.6)
--- NOTE | 2017-01-13 15:50 | HHI.GIFU ---
Subjective Remarks Pt in bed, c/o severe upper abdominal pain, n/v. EArly this mornign he vomited dark blood. Recent episode nonbloody emesis. Objective Vitals I&O Vital Signs Date Time Temp Pulse Resp B/P (MAP) Pulse Ox O2 Delivery O2 Flow Rate FiO2 01/13/17 13:00 97.4 117 18 129/58 (81) 93 01/13/17 13:00 98.4 135 18 118/56 95 01/13/17 10:00 97.8 115 20 146/66 (92) 96 01/13/17 05:47 16 01/13/17 04:00 111 01/13/17 04:00 97.8 111 18 123/56 (78) 97 01/13/17 03:15 18 01/13/17 00:00 130 01/13/17 00:00 101.1 130 18 115/67 (83) 98 01/12/17 22:11 97.8 01/12/17 22:00 17 01/12/17 20:00 123 01/12/17 20:00 93 Room Air 01/12/17 20:00 101.3 108 18 114/63 (80) 93 01/12/17 17:15 100.9 120 18 156/69 98 01/12/17 16:58 16 01/12/17 16:55 100.3 118 18 132/60 97 01/12/17 16:14 95 21 01/12/17 16:00 100.6 113 18 110/53 (72) 96 I/O 01/12/17 01/12/17 01/12/17 01/13/17 01/13/17 01/13/17 07:00 15:00 23:00 07:00 15:00 23:00 Intake Total 1555 ml 327 ml 590 ml 240 ml 240 ml Output Total 1000 ml 600 ml 1000 ml Balance 555 ml -273 ml -410 ml 240 ml 240 ml Intake Oral 240 ml IV Total 1200 ml 100 ml 80 ml Packed Cells 350 ml 500 ml Platelets 207 ml 230 ml Blood Product IV Normal Saline Flush 5 ml 20 ml 10 ml 10 ml Output Urine Total 1000 ml 600 ml 1000 ml # Voids 1 1 # Bowel Movements 1 1 1 Laboratory Laboratory Tests Test 01/12/17 21:00 01/13/17 05:40 01/13/17 14:30 White Blood Count 0.2 0.3 Red Blood Count 2.77 2.71 Hemoglobin 8.5 8.5 Hematocrit 24.6 24.2 Mean Corpuscular Volume 88.9 89.2 Mean Corpuscular Hemoglobin 30.7 31.4 Mean Corpuscular Hemoglobin Concent 34.6 35.2 Red Cell Distribution Width 14.7 14.5 Platelet Count 8 2 Mean Platelet Volume 7.7 11.9 CBC Comment AUTO DIFF Differential Total Cells Counted 40 Lymphocytes % 100 Neutrophils # (Manual) 0.0 Differential Comment FINAL DIFF MANUAL Platelet Estimate RARE Platelet Morphology Comment NORMAL Red Cell Morphology Comment NORMAL Blood Urea Nitrogen 15 Creatinine 0.61 Random Glucose 116 Total Protein 4.5 Albumin 1.6 Calcium Level 7.0 Alkaline Phosphatase 42 Aspartate Amino Transf (AST/SGOT) LESS THAN 3 Alanine Aminotransferase (ALT/SGPT) 12 Total Bilirubin 2.9 Direct Bilirubin 1.5 Sodium Level 133 Potassium Level 3.3 Chloride Level 96 Carbon Dioxide Level 30.2 Anion Gap 7 Estimat Glomerular Filtration Rate 162 Protein Corrected Calcium 8.4 Indirect Bilirubin 1.4 Prothrombin Time 16.8 Prothromb Time International Ratio 1.5 Activated Partial Thromboplast Time 38.1 Date/Time Source Procedure Growth Status 01/12/17 21:00 Blood Line Aerobic Blood Culture - Preliminary NO GROWTH IN 1 DAY Resulted 01/12/17 21:00 Blood Line Anaerobic Blood Culture - Preliminary NO GROWTH IN 1 DAY Resulted 12/26/16 17:10 Cerebral Spinal Fluid Lumbar Puncture Acid Fast Stain - Final NO ACID FAST BACILLI SEEN Resulted 12/26/16 17:10 Cerebral Spinal Fluid Lumbar Puncture Mycobacterial Culture - Preliminary NO GROWTH IN 2 WEEKS Resulted 01/09/17 19:57 Stool Stool Stool Occult Blood (SUNDAR) - Final HEMOCCULT POSITIVE Complete 12/28/16 17:50 Bronchial Washings Left Lower Lobe Fungal Smear - Final NO FUNGAL ELEMENTS SEEN. Resulted 12/28/16 17:50 Bronchial Washings Left Lower Lobe Fungal Culture - Preliminary NO GROWTH IN 2 WEEKS Resulted 01/11/17 22:25 Urine Clean Catch Urine Culture - Final NO GROWTH IN 48 HOURS. Complete Imaging Last Impressions Abdomen MRI 01/12/17 0000 Signed Impressions: Service Date/Time: Thursday, January 12, 2017 09:47 - CONCLUSION: No evidence of acute abdominal process. Splenic hemangiomas Humza Decker MD Lower Extremity Ultrasound 01/10/17 0000 Signed Impressions: Service Date/Time: Tuesday, January 10, 2017 21:50 - CONCLUSION: Negative exam with no evidence of deep venous thrombosis. Jose Nicholson MD Hepatobiliary Scan Nuclear Medicine 01/09/17 0000 Signed Impressions: Service Date/Time: Monday, January 09, 2017 10:01 - CONCLUSION: 1. The patient refused imaging beyond 45 minutes. There is activity seen within small bowel and gallbladder with no evidence for cystic duct obstruction. Danie Kelly MD Abdomen/Pelvis CT 01/08/17 0000 Signed Impressions: Service Date/Time: Sunday, January 08, 2017 14:43 - CONCLUSION: 1. No evidence of mesenteric artery stenosis 2. Small amount of free fluid is present in the pelvis Humza Decker MD Abdomen Ultrasound 01/07/17 0000 Signed Impressions: Service Date/Time: December 01:11 - CONCLUSION: 1. No acute findings. Liver enlarged. Spleen mildly prominent at 14 cm. Leander Fiore MD Chest X-Ray 01/03/17 0600 Signed Impressions: Service Date/Time: Tuesday, January 03, 2017 04:42 - CONCLUSION: Normal examination. Right IJ [id number] catheter in excellent position. Lungs are clear. Enrique Ramos MD Port Line Insertion 12/31/16 0000 Signed Impressions: Service Date/Time: December 15:15 - CONCLUSION: Uncomplicated ultrasound and fluoroscopic guided implanted central venous port catheter placement as described in detail above. An 8 [place] port was placed. Nilson Bonner MD Gated Heart Nuclear Medicine 12/30/16 0000 Signed Impressions: Service Date/Time: Friday, December 30, 2016 13:16 - CONCLUSION: Negative exam. Calculated ejection fraction of 56%% with adequate wall motion throughout. Bean Dugan MD Bone Biopsy CT 12/28/16 0000 Signed Impressions: Service Date/Time: Wednesday, December 28, 2016 16:53 - CONCLUSION: 1. Uncomplicated CT guided bone marrow aspirate. 2. Uncomplicated CT guided bone marrow biopsy. Grant Jones MD Brain MRI 12/27/16 0000 Signed Impressions: Service Date/Time: Tuesday, December 27, 2016 21:58 - CONCLUSION: Unremarkable study. Patricia Contreras MD Lumbar Puncture Fluoroscopy 12/26/16 0000 Signed Impressions: Service Date/Time: Monday, December 26, 2016 17:03 - CONCLUSION: Uncomplicated fluoroscopically guided lumbar puncture with pressures as above. Nilson Bonner MD Chest CT 12/26/16 0000 Signed Impressions: Service Date/Time: Monday, December 26, 2016 17:45 - CONCLUSION: Bibasilar air space process characteristic of pneumonia. Patricia Contreras MD Head CT 12/25/16 1941 Signed Impressions: Service Date/Time: Sunday, December 25, 2016 19:50 - CONCLUSION: Negative noncontrast head CT. Audie Maria MD Physical Exam HEENT: Normocephalic; atraumatic; no jaundice. NECK: Neck is supple CHEST: CTA CARDIAC: RRR with no murmur gallop or rubs. ABDOMEN: Soft, obese, nondistended, upper abd TTP; bowel sounds are present x 4 EXTREMITIES: No clubbing, cyanosis, or edema. SKIN: pale; no rash; no jaundice. 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 Assessment and Plan Plan ASSESSMENT - Abdominal pain, unclear etiology. Reports epigastric pain. CT showing splenic infarct. CTA no mesenteric ischemia, small amount free fluid pelvis. HIDA (pt refused imaging beyond 45 min) but negative for cystic duct obstruction. MRI abd no acute processes, splenic hemangiomas D/W hem/onc, will do EGD with no bx tomorrow after platelet infusion - Diarrhea, C diff negative, stool cx neg, heme pos stool - Acute myeloid leukemia, Oncology following, induction therapy PLAN - EGD tomorrow, d/w hem/onc - obtain consents - platelets per hematology - Cont. Protonix BID - Cont. Carafate - Monitor HH, transfuse as necessary - Monitor labs - Supportive care - Further recommendations to follow based on results of above. Patient seen and examined by Dr. Rosas and myself and this note is written on his behalf. Shelley Piña Jan 13, 2017 3:50 pm
[2017-01-13 16:00] VITALS: BP 130/58; PULSE 110; RESP 20; TEMP 97.9; O2SAT 93
--- NOTE | 2017-01-13 16:31 | RADRPT ---
EXAM DATE/TIME: 01/13/2017 15:41 [facility] COMPARISON: CTA ABDOMEN & PELVIS W 3D RECON, January 08, 2017, 14:43. INDICATIONS : Abdominal pain. MEDICAL HISTORY : Leukemia. SURGICAL HISTORY : Port placement. ENCOUNTER: Subsequent ACUITY: 2 weeks PAIN SCORE: 4/10 LOCATION: Bilateral abdomen. FINDINGS: There is moderate gaseous distention of large and small bowel present throughout the abdomen. Portion s of colon appear to be dilated up to 7-8 cm with small bowel dilated to greater than 5 cm. CONCLUSION: Moderate gaseous distention of large and small bowel with appearance most suggestive of ileus Audie Gomez MD on January 13, 2017 at 16:19 Board Certified Radiologist. This report was verified electronically.
--- NOTE | 2017-01-13 19:44 | HHI.IDPN ---
Subjective Subjective Remarks reconsulted Pt developped fever up to 101 x 2 days, co severe ,mid abdominal pain ad diarrhea also c/o nausea/vomiting REmains profoundly netropenic Emesis x [address] and MRI of abdomen w/o acute findings C.diff negative 2 /2 (12/28 and 01/08) zosyn was started Antibiotics zosyn Allergies: Coded Allergies: No Known Allergies (Verified , 12/25/16) Objective . Vital Signs Date Time Temp Pulse Resp B/P (MAP) Pulse Ox O2 Delivery O2 Flow Rate FiO2 01/13/17 16:00 97.9 110 20 130/58 (82) 93 01/13/17 15:51 18 01/13/17 13:00 97.4 117 18 129/58 (81) 93 01/13/17 13:00 98.4 135 18 118/56 95 01/13/17 10:00 97.8 115 20 146/66 (92) 96 01/13/17 08:15 93 Room Air 01/13/17 05:47 16 01/13/17 04:00 111 01/13/17 04:00 97.8 111 18 123/56 (78) 97 01/13/17 03:15 18 01/13/17 00:00 130 01/13/17 00:00 101.1 130 18 115/67 (83) 98 01/12/17 22:11 97.8 01/12/17 22:00 17 01/12/17 20:00 123 01/12/17 20:00 93 Room Air 01/12/17 20:00 101.3 108 18 114/63 (80) 93 01/13/17 01/13/17 01/14/17 15:00 23:00 07:00 Intake Total 1290 ml Balance 1290 ml Intake Oral 1050 ml Platelets 230 ml Blood Product IV Normal Saline Flush 10 ml # Voids 1 1 # Bowel Movements 1 1 . Laboratory Tests Test 01/11/17 23:45 01/12/17 07:25 01/12/17 21:00 01/13/17 05:40 White Blood Count 0.2 TH/MM3 0.3 TH/MM3 0.2 TH/MM3 0.3 TH/MM3 Red Blood Count 2.10 MIL/MM3 2.35 MIL/MM3 2.77 MIL/MM3 2.71 MIL/MM3 Hemoglobin 6.8 GM/DL 7.5 GM/DL 8.5 GM/DL 8.5 GM/DL Hematocrit 18.8 % 21.0 % 24.6 % 24.2 % Mean Corpuscular Volume 89.8 FL 89.2 FL 88.9 FL 89.2 FL Mean Corpuscular Hemoglobin 32.4 PG 31.7 PG 30.7 PG 31.4 PG Mean Corpuscular Hemoglobin Concent 36.1 % 35.6 % 34.6 % 35.2 % Red Cell Distribution Width 14.9 % 14.9 % 14.7 % 14.5 % Platelet Count 16 TH/MM3 7 TH/MM3 8 TH/MM3 2 TH/MM3 Mean Platelet Volume 8.4 FL 7.8 FL 7.7 FL 11.9 FL Neutrophils (%) (Auto) 0.8 % Lymphocytes (%) (Auto) 89.4 % Monocytes (%) (Auto) 9.8 % Eosinophils (%) (Auto) 0.0 % Basophils (%) (Auto) 0.0 % Neutrophils # (Auto) 0.0 TH/MM3 Lymphocytes # (Auto) 0.2 TH/MM3 Monocytes # (Auto) 0.0 TH/MM3 Eosinophils # (Auto) 0.0 TH/MM3 Basophils # (Auto) 0.0 TH/MM3 CBC Comment AUTO DIFF AUTO DIFF Differential Total Cells Counted 10 40 Neutrophils % (Manual) 10 % Lymphocytes % 90 % 100 % Neutrophils # (Manual) 0.0 TH/MM3 0.0 TH/MM3 Differential Comment FINAL DIFF MANUAL FINAL DIFF MANUAL Platelet Estimate RARE RARE Platelet Morphology Comment NORMAL NORMAL Red Cell Morphology Comment NORMAL Laboratory Tests Test 01/12/17 07:25 01/13/17 05:40 Blood Urea Nitrogen 14 MG/DL 15 MG/DL Creatinine 0.57 MG/DL 0.61 MG/DL Random Glucose 95 MG/DL 116 MG/DL Total Protein 4.7 GM/DL 4.5 GM/DL Albumin 1.6 GM/DL 1.6 GM/DL Calcium Level 6.7 MG/DL 7.0 MG/DL Alkaline Phosphatase 37 U/L 42 U/L Aspartate Amino Transf (AST/SGOT) LESS THAN 3 U/L LESS THAN 3 U/L Alanine Aminotransferase (ALT/SGPT) 12 U/L 12 U/L Lactate Dehydrogenase 113 U/L Total Bilirubin 5.0 MG/DL 2.9 MG/DL Direct Bilirubin 2.2 MG/DL 1.5 MG/DL Sodium Level 134 MEQ/L 133 MEQ/L Potassium Level 3.4 MEQ/L 3.3 MEQ/L Chloride Level 99 MEQ/L 96 MEQ/L Carbon Dioxide Level 27.0 MEQ/L 30.2 MEQ/L Anion Gap 8 MEQ/L 7 MEQ/L Estimat Glomerular Filtration Rate 176 ML/MIN 162 ML/MIN Protein Corrected Calcium 7.9 MG/DL 8.4 MG/DL Indirect Bilirubin 2.8 MG/DL 1.4 MG/DL Microbiology Date/Time Source Procedure Growth Status 01/12/17 21:00 Blood Line Aerobic Blood Culture - Preliminary NO GROWTH IN 1 DAY Resulted 01/12/17 21:00 Blood Line Anaerobic Blood Culture - Preliminary NO GROWTH IN 1 DAY Resulted 01/12/17 20:54 Blood Line Aerobic Blood Culture - Preliminary NO GROWTH IN 1 DAY Resulted 01/12/17 20:54 Blood Line Anaerobic Blood Culture - Preliminary NO GROWTH IN 1 DAY Resulted 01/11/17 18:43 Blood Other Aerobic Blood Culture - Preliminary NO GROWTH IN 2 DAYS Resulted 01/11/17 18:43 Blood Other Anaerobic Blood Culture - Preliminary NO GROWTH IN 2 DAYS Resulted 01/11/17 18:37 Blood Peripheral Aerobic Blood Culture - Preliminary NO GROWTH IN 2 DAYS Resulted 01/11/17 18:37 Blood Peripheral Anaerobic Blood Culture - Preliminary NO GROWTH IN 2 DAYS Resulted 01/11/17 22:25 Urine Clean Catch Urine Culture - Final NO GROWTH IN 48 HOURS. Complete Imaging Last Impressions Abdomen X-Ray 01/13/17 1451 Signed Impressions: Service Date/Time: Friday, January 13, 2017 15:41 - CONCLUSION: Moderate gaseous distention of large and small bowel with appearance most suggestive of ileus Audie Gomez MD Abdomen MRI 01/12/17 0000 Signed Impressions: Service Date/Time: Thursday, January 12, 2017 09:47 - CONCLUSION: No evidence of acute abdominal process. Splenic hemangiomas Humza Decker MD Lower Extremity Ultrasound 01/10/17 0000 Signed Impressions: Service Date/Time: Tuesday, January 10, 2017 21:50 - CONCLUSION: Negative exam with no evidence of deep venous thrombosis. Jose Nicholson MD Hepatobiliary Scan Nuclear Medicine 01/09/17 0000 Signed Impressions: Service Date/Time: Monday, January 09, 2017 10:01 - CONCLUSION: 1. The patient refused imaging beyond 45 minutes. There is activity seen within small bowel and gallbladder with no evidence for cystic duct obstruction. Danie Kelly MD Abdomen/Pelvis CT 01/08/17 0000 Signed Impressions: Service Date/Time: Sunday, January 08, 2017 14:43 - CONCLUSION: 1. No evidence of mesenteric artery stenosis 2. Small amount of free fluid is present in the pelvis Humza Decker MD Abdomen Ultrasound 01/07/17 0000 Signed Impressions: Service Date/Time: December 01:11 - CONCLUSION: 1. No acute findings. Liver enlarged. Spleen mildly prominent at 14 cm. Leander Fiore MD Chest X-Ray 01/03/17 0600 Signed Impressions: Service Date/Time: Tuesday, January 03, 2017 04:42 - CONCLUSION: Normal examination. Right IJ [id number] catheter in excellent position. Lungs are clear. Enrique Ramos MD Port Line Insertion 12/31/16 0000 Signed Impressions: Service Date/Time: December 15:15 - CONCLUSION: Uncomplicated ultrasound and fluoroscopic guided implanted central venous port catheter placement as described in detail above. An 8 [place] [employer] port was placed. Nilson Bonner MD [facility] Nuclear Medicine 12/30/16 0000 Signed Impressions: Service Date/Time: Friday, December 30, 2016 13:16 - CONCLUSION: Negative exam. Calculated ejection fraction of 56%% with adequate wall motion throughout. Bean Dugan MD Bone Biopsy CT 12/28/16 0000 Signed Impressions: Service Date/Time: Wednesday, December 28, 2016 16:53 - CONCLUSION: 1. Uncomplicated CT guided bone marrow aspirate. 2. Uncomplicated CT guided bone marrow biopsy. Grant Jones MD Brain MRI 12/27/16 0000 Signed Impressions: Service Date/Time: Tuesday, December 27, 2016 21:58 - CONCLUSION: Unremarkable study. Patricia Contreras MD Lumbar Puncture Fluoroscopy 12/26/16 0000 Signed Impressions: Service Date/Time: Monday, December 26, 2016 17:03 - CONCLUSION: Uncomplicated fluoroscopically guided lumbar puncture with pressures as above. Nilson Bonner MD Chest CT 12/26/16 0000 Signed Impressions: Service Date/Time: Monday, December 26, 2016 17:45 - CONCLUSION: Bibasilar air space process characteristic of pneumonia. K. Mendez Contreras MD Head CT 12/25/161940 Signed Impressions: Service Date/Time: Sunday, December 25, 2016 19:50 - CONCLUSION: Negative noncontrast head CT. Audie Maria MD Physical Exam CONSTITUTIONAL/GENERAL: This is a morbidly obese patient, in some distress 2/2 pain, nausea TUBES/LINES/DRAINS: PORT in place R chest w/o e/o infection SKIN: No jaundice, rashes, or lesions. HEAD: Atraumatic. Normocephalic. EYES: Pupils equal and round and reactive. Extraocular motions intact. No scleral icterus. No injection or drainage. Fundi not examined. ENT: Hearing grossly normal. Nose without bleeding or purulent drainage. Dry mucosae CARDIOVASCULAR: Regular tachycardia without murmurs, gallops, or rubs. No JVD. Peripheral pulses symmetric. Well perfused perifery RESPIRATORY/CHEST: Symmetric, unlabored respirations. Clear to auscultation. Breath sounds equal bilaterally. No wheezes, rales, or rhonchi. GASTROINTESTINAL: Abdomen soft, diffusely tender in mid portion w/o guarding or rebound, nondistended. No hepato-splenomegaly, or palpable masses. No guarding. Bowel sounds present. MUSCULOSKELETAL: Extremities without clubbing, cyanosis, or edema. NEUROLOGICAL: Awake and alert. Non focal PSYCHIATRIC: calm and cooperative Assessment & Plan Remarks Acute leukemia, confirmed by BM, started on chemo New episode of febrile neutropenia with abdominal pain and diarhhea profound neutroneia Pneumonia all w/u neg including coccideomycese AB negative leg /pneumococcus serologies Cont zosyn, change to 4.5 q 6 hrs fu blood clx add vancomycin Alana aDley MD Jan 13, 2017 19:44
[2017-01-13] MEDS ORDERED: Vancomycin Consult Pharmacy 1 EA OTHER SCH (19:45)
[2017-01-13 20:00] VITALS: BP 118/51; PULSE 117; RESP 18; TEMP 97.7; O2SAT 95
[2017-01-13 21:02] LABS: MEAN CELL VOLUME 89.2 FL (80.0-100.0); MEAN CORPUSCULAR HEMOGLOBIN 31.2 PG (27.0-34.0); RED CELL DISTRIBUTION WIDTH 14.8 % (11.6-17.2); WHITE BLOOD COUNT 0.3 TH/MM3 (4.0-11.0)
[2017-01-13 21:24] LABS: PLATELET COUNT 5 TH/MM3 (150-450); REVIEW FLAG FINAL
[2017-01-13] MEDS: VANCOMYCIN INJ 2,000 MG in SODIUM CHLORID 0.9% 500 ML INJ 500 ML IV SCH (22:26)
[2017-01-14] VITALS (13 sets, daily range): BP systolic 100–137; BP diastolic 49–63; PULSE 116–130; RESP 16–22; TEMP 97.9–101; O2SAT 90–97
[2017-01-14] MEDS: ONDANSETRON HCL 4 MG/2 ML VIAL IV PUSH PRN ×2 (00:06→12:04)
[2017-01-14] MEDS: PANTOPRAZOLE INJ 80 MG in SODIUM CHLORIDE 0.9% INJ 100 ML IV SCH ×2 (01:21→19:25)
[2017-01-14] MEDS: NS + KCL 20 MEQ INJ 1,000 ML IV SCH (01:21)
[2017-01-14] MEDS: PIPERACIL-TAZO 4.5 GM PREMIX 100 ML IV SCH ×4 (02:16→20:10)
[2017-01-14] MEDS: ACETAMINOPHEN 325 MG TAB PO PRN ×2 (02:16→10:30)
[2017-01-14] MEDS: PROMETHAZINE HCL 25 MG TAB PO PRN (03:49)
[2017-01-14] MEDS: HYDROmorphone HCL PF 2 MG/ML VIAL IV PUSH PRN ×3 (03:51→20:00)
[2017-01-14] MEDS: diphenhydrAMINE HCL 25 MG CAP PO PRN (05:25)
[2017-01-14] MEDS: SUCRALFATE 1 GM/10 ML CUP PO SCH ×5 (05:25→20:00)
[2017-01-14] MEDS: PCA - TOTAL MG DILAUDID DELIVERED PER SHIFT OTHER SCH ×3 (06:00→22:00)
[2017-01-14] MEDS ORDERED: SODIUM CHLOR 0.9% 250 ML INJ 250 ML IV ONE (08:45)
[2017-01-14] MEDS: Hickman Catheter Daily NS Lock Flush IV FLUSH SCH (09:00)
[2017-01-14] MEDS: MUPIROCIN 2% OINT 22 GM TUBE TOPICAL SCH ×3 (09:00→17:55)
[2017-01-14] MEDS: SODIUM CHLORIDE 0.9% FLUSH 10 ML FLUSH IV FLUSH SCH ×2 (09:00→21:00)
[2017-01-14] MEDS ORDERED: KETAMINE HCL 500 MG/5 ML VIAL ONE (09:18)
--- NOTE | 2017-01-14 09:27 | PD.ONC.PN ---
Subjective Subjective Remarks Tmax 100F this morning. still with severe unrelenting abdominal pain. going for EGD this morning. patient noted some blood tinged sputum this morning. Objective Data Date Time Temp Pulse Resp B/P (MAP) Pulse Ox O2 Delivery O2 Flow Rate FiO2 01/14/17 08:30 100.0 123 19 111/57 94 01/14/17 08:12 Room Air 01/14/17 08:01 98.7 118 19 117/55 94 01/14/17 07:59 98.7 118 19 117/55 94 01/14/17 06:10 98.2 120 16 100/49 94 01/14/17 06:00 16 01/14/17 04:00 121 01/14/17 04:00 98.8 130 18 115/56 (75) 95 01/14/17 00:00 101.0 123 18 115/53 (73) 92 01/14/17 00:00 126 01/13/17 22:00 16 01/13/17 20:40 93 Room Air 01/13/17 20:00 97.7 117 18 118/51 (73) 95 01/13/17 20:00 117 01/13/17 16:00 97.9 110 20 130/58 (82) 93 01/13/17 15:51 18 01/13/17 13:00 97.4 117 18 129/58 (81) 93 01/13/17 13:00 98.4 135 18 118/56 95 01/13/17 10:00 97.8 115 20 146/66 (92) 96 01/14/17 01/14/17 01/14/17 07:00 15:00 23:00 Intake Total 240 ml 278 ml Balance 240 ml 278 ml Result Diagram: 01/13/17204401/13/17 0540 Laboratory Results Laboratory Tests Test 01/13/17 14:30 01/13/17 20:45 Prothrombin Time 16.8 SEC Prothromb Time International Ratio 1.5 RATIO Activated Partial Thromboplast Time 38.1 SEC White Blood Count 0.3 TH/MM3 Red Blood Count 2.80 MIL/MM3 Hemoglobin 8.7 GM/DL Hematocrit 25.0 % Mean Corpuscular Volume 89.2 FL Mean Corpuscular Hemoglobin 31.2 PG Mean Corpuscular Hemoglobin Concent 35.0 % Red Cell Distribution Width 14.8 % Platelet Count 5 TH/MM3 Mean Platelet Volume 7.8 FL Culture Results Microbiology Date/Time Source Procedure Growth Status 01/14/17 01:35 Blood Line Aerobic Blood Culture Pending Received 01/14/17 01:35 Blood Line Anaerobic Blood Culture Pending Received 01/14/17 00:25 Blood Line Aerobic Blood Culture Pending Received 01/14/17 00:25 Blood Line Anaerobic Blood Culture Pending Received 01/12/17 21:00 Blood Line Aerobic Blood Culture - Preliminary NO GROWTH IN 1 DAY Resulted 01/12/17 21:00 Blood Line Anaerobic Blood Culture - Preliminary NO GROWTH IN 1 DAY Resulted 01/12/17 20:54 Blood Line Aerobic Blood Culture - Preliminary NO GROWTH IN 1 DAY Resulted 01/12/17 20:54 Blood Line Anaerobic Blood Culture - Preliminary NO GROWTH IN 1 DAY Resulted 01/11/17 18:43 Blood Other Aerobic Blood Culture - Preliminary NO GROWTH IN 2 DAYS Resulted 01/11/17 18:43 Blood Other Anaerobic Blood Culture - Preliminary NO GROWTH IN 2 DAYS Resulted 01/11/17 18:37 Blood Peripheral Aerobic Blood Culture - Preliminary NO GROWTH IN 2 DAYS Resulted 01/11/17 18:37 Blood Peripheral Anaerobic Blood Culture - Preliminary NO GROWTH IN 2 DAYS Resulted 01/11/17 22:25 Urine Clean Catch Urine Culture - Final NO GROWTH IN 48 HOURS. Complete Imaging Studies Last 24 hours Impressions Abdomen X-Ray 01/13/17 1451 Signed Impressions: Service Date/Time: Friday, January 13, 2017 15:41 - CONCLUSION: Moderate gaseous distention of large and small bowel with appearance most suggestive of ileus Audie Gomez MD Administered Medications Medications (Trade) Dose Ordered Sig/Emma Route PRN Reason Start Time Stop Time Status Last Admin Dose Admin Sodium Chloride (NS Flush) 2 ml UNSCH PRN IV FLUSH FLUSH AFTER USING IV ACCESS 12/25/16 23:00 12/30/16 04:59 Sodium Chloride (NS Flush) 2 ml BID IV FLUSH 12/26/16 09:00 01/13/17 10:42 Acetaminophen (Tylenol) 650 mg Q6H PRN PO FEVER>100.4 12/25/16 23:00 01/14/17 02:16 Benzonatate (Tessalon) 100 mg Q4H PRN PO COUGH 12/26/16 05:15 12/26/16 15:12 Diphenhydramine HCl (Benadryl) 25 mg Q4H PRN PO SEE LABEL COMMENTS 12/27/16 04:15 01/14/17 05:25 Acetaminophen (Tylenol) 650 mg Q4H PRN PO SEE LABEL COMMENTS 12/27/16 04:15 01/13/17 12:57 Mupirocin (Bactroban 2% Oint) 1 applic TID TOPICAL 12/27/16 14:15 01/13/17 17:35 Sodium Chloride (NS Flush) 5 ml DAILY IV FLUSH 12/30/16 09:00 01/13/17 10:42 Heparin Sodium (Porcine) (Heparin Central Flush) 500 units UNSCH PRN IV FLUSH SEE PROTOCOL TABLE 12/30/16 06:30 12/31/16 15:45 Promethazine HCl (Phenergan) 25 mg Q4H PRN PO nausea or vomitting 01/04/17 10:15 01/14/17 03:49 Allopurinol (Zyloprim) 200 mg DAILY PO 01/06/17 09:00 01/13/17 10:34 Hyoscyamine Sulfate (Levsin) 0.25 mg Q4H PRN PO CRAMPS 01/06/17 09:30 01/06/17 10:06 Sucralfate (Carafate Liq) 1 gm ACHS PO 01/09/17 16:00 01/13/17 21:57 Pantoprazole Sodium 80 mg/ Sodium Chloride 100 ml @ 10 mls/hr CONTINUOUS IV 01/11/17 16:00 01/14/17 01:21 Hydromorphone HCl (Dilaudid LOG GETTER Inj) 6 mg UNSCH IV 01/11/17 15:15 01/13/17 15:51 LOG GETTER Dosage Infused (Pha) 1 Q8HR OTHER 01/11/17 15:45 01/14/17 06:00 Ondansetron HCl (Zofran Inj) 8 mg Q8H PRN IV PUSH NAUSEA 01/11/17 17:15 Future hold 01/14/17 00:06 Hydromorphone HCl (Dilaudid Pf Inj) 2 mg Q4H PRN IV PUSH SEVERE BREAKTHROUGH PAIN 01/12/17 15:30 01/14/17 03:51 Potassium Chloride/Sodium Chloride 1,000 ml @ 100 mls/hr Q10H IV 01/13/17 15:00 01/14/17 01:21 Piperacillin Sod/ Tazobactam Sod 100 ml @ 200 mls/hr Q6H IV 01/13/17 21:00 01/14/17 08:25 Vancomycin HCl 2000 mg/Sodium Chloride 520 ml @ 250 mls/hr Q12H IV 01/13/17 21:00 01/13/17 22:26 Objective Remarks GENERAL: Young man, sitting up in chair next to bed, complaining of pain. SKIN: Warm and dry. HEAD: Normocephalic. EYES: No injection or drainage. NECK: Supple, trachea midline. CARDIOVASCULAR: Regular rate and rhythm RESPIRATORY: Breath sounds equal bilaterally. No accessory muscle use. GASTROINTESTINAL: soft, tender to palpation throughout. MUSCULOSKELETAL: No cyanosis NEURO: awake and alert, normal speech. 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 Patients with rearrangement of CBFB in AML may have a higher risk of CONFERENCE PLANNER involvement at diagnosis or at relapse than patients with other types of AML. Inversion 16 or t(16;16), with or without additional chromosome abnormalities, has been associated with complete remission and improved long-term survival. - MUGA scan shows normal EF and no wall motion abnormalities 12/30/2016 - Port placement by IR completed 12/31/16 - Induction chemotherapy started 12/31-- 7+3 regimen with Daunorubicin 90mg/m2 and Cytaribine 100mg/m2-- Dosing capped at BSA of 2 - CMV negative, HIV and Hep B and C negative 12/31 Day 1: Daunorubicin and Cytarabine 01/01 Day 2: Daunorubicin and Cytarabine 01/02 Day 3: Daunorubicin and Cytarabine 01/03 Day 4: Cytarabine 01/04 Day 5: Cytarabine 8/29 Day 6: Cytarabine 01/06 Day 7: Cytarabine 01/07 Day 8: Last bag cytarabine infusing; will finish approx. 3am. Transfuse 1 unit irr. platelets, 1 unit irr. PRBC's. 01/08: D9. abdominal pain persistent. 2 units pRBC 01/09: D10. 2 additional units pRBC ordered. 1 unit platelets ordered 01/10: D11. 2 units pRBC. 1 unit platelets. + stool hemoccult 01/12: D13: 2 units pRBC. 1 unit platelets. 01/13: D14: 1 unit platelets. BB working to obtain HLA matched platelets 01/14: D15. 2 units HLA matched platelets given. spoke with BB they will have two units HLA matched on hand at all times. EGD today. (2) Neutropenia ICD Codes: D70.9 - Neutropenia, unspecified Status: Acute Plan: -- ID following -- On Zosyn +Vanco -- BC on 12/25 = no growth. -- Bronchoscopy on 12/28= no growth. -- BC on 12/29= no growth. --BC 01/12= no growth --BC 01/14 pending (3) Abdominal pain ICD Codes: R10.9 - Unspecified abdominal pain Plan: -- Epigastric area pain--EGD, 01/14 showed thrush and distal esophageal ulcer as well as severe gastritis. -- Amylase, lipase WNL -- CT abdomen/ pelvis shows splenic infarcts; --CTA abdomen shows no mesenteric emboli --Abdominal U/S: shows no acute findings. enlarged liver and spleen. --GI following --on Protonix, Carafate, Zosyn, Vanco, Diflucan +stool hemoccult (4) Pancytopenia ICD Codes: D61.818 - Other pancytopenia Plan: - Check Fibrinogen every other day - Transfuse to keep platelets > 10 - Will need irradiated CMV negative blood products -- transfuse to keep Hb > 7 (5) GIB (gastrointestinal bleeding) ICD Codes: K92.2 - Gastrointestinal hemorrhage, unspecified Plan: --+ stool hemoccult on 01/09/17 --on Protonix + Carafate --unable to perform EGD until counts stabilize. --monitor serial H/H, transfuse as needed Assessment 26 y/o male with no major past medical history who was brought in for headache, confusion and cough and found to be pancytopenic and circulating blast cells. Bone marrow biopsy confirmed Acute Myeloid Leukemia: Plan 1. 2 units HLA matched platelets today 2. EGD today showed thrush and distal esophageal ulcer 3. I spoke with blood bank and they are working to obtain two additional units HLA matched platelets and have two units on hand at all times. 4. start Diflucan, Nystatin 5. replace potassium Attending Statement The exam, history, and the medical decision-making described in the above note were completed with the assistance of the mid-level provider. I reviewed and agree with the findings presented. I attest that I had a [id number] encounter with the patient on the same day, and personally performed and documented my assessment and findings in the medical record s/p AML induction D#15 Favorable risk disease pancytopenic post treatment Plan for bone marrow biopsy tomorrow AM EGD revealed distal esophageal tear and candidiasis Add fluconazole for esophageal thrush HLA matched platelet given earlier prior to EGD replace electrolytes d/w rn overnight events reviewed Problem Qualifiers (1) Acute myelogenous leukemia: Qualified Codes: C92.00 - Acute myeloblastic leukemia, not having achieved remission (2) Neutropenia: Fartun Pagan Jan 14, 2017 09:27 Joey Santoyo MD Jan 14, 2017 22:48
[2017-01-14] MEDS ORDERED: PROPOFOL 200 MG/20 ML AMP IV PUSH ONE (09:30)
--- NOTE | 2017-01-14 09:47 | HHI.GIFU ---
Subjective Remarks Patient still complaining of nausea, occasional vomiting, and abdominal pain is not eating well because of that Objective Vitals I&O Vital Signs Date Time Temp Pulse Resp B/P (MAP) Pulse Ox O2 Delivery O2 Flow Rate FiO2 01/14/17 09:04 100.1 116 20 122/56 97 01/14/17 08:30 100.0 123 19 111/57 94 01/14/17 08:12 Room Air 01/14/17 08:01 98.7 118 19 117/55 94 01/14/17 08:00 98.7 118 18 117/55 (75) 94 01/14/17 07:59 98.7 118 19 117/55 94 01/14/17 06:10 98.2 120 16 100/49 94 01/14/17 06:00 16 01/14/17 04:00 121 01/14/17 04:00 98.8 130 18 115/56 (75) 95 01/14/17 00:00 101.0 123 18 115/53 (73) 92 01/14/17 00:00 126 01/13/17 22:00 16 01/13/17 20:40 93 Room Air 01/13/17 20:00 97.7 117 18 118/51 (73) 95 01/13/17 20:00 117 01/13/17 16:00 97.9 110 20 130/58 (82) 93 01/13/17 15:51 18 01/13/17 13:00 97.4 117 18 129/58 (81) 93 01/13/17 13:00 98.4 135 18 118/56 95 01/13/17 10:00 97.8 115 20 146/66 (92) 96 I/O 01/13/17 01/13/17 01/13/17 01/14/17 01/14/17 01/14/17 07:00 15:00 23:00 07:00 15:00 23:00 Intake Total 240 ml 1290 ml 240 ml 551 ml Balance 240 ml 1290 ml 240 ml 551 ml Intake Oral 240 ml 1050 ml 240 ml Platelets 230 ml 521 ml Blood Product IV Normal Saline Flush 10 ml 30 ml # Voids 1 1 1 1 # Bowel Movements 1 1 1 1 Laboratory Laboratory Tests Test 01/13/17 14:30 01/13/17 20:45 Prothrombin Time 16.8 Prothromb Time International Ratio 1.5 Activated Partial Thromboplast Time 38.1 White Blood Count 0.3 Red Blood Count 2.80 Hemoglobin 8.7 Hematocrit 25.0 Mean Corpuscular Volume 89.2 Mean Corpuscular Hemoglobin 31.2 Mean Corpuscular Hemoglobin Concent 35.0 Red Cell Distribution Width 14.8 Platelet Count 5 Mean Platelet Volume 7.8 Date/Time Source Procedure Growth Status 01/14/17 01:35 Blood Line Aerobic Blood Culture Pending Received 01/14/17 01:35 Blood Line Anaerobic Blood Culture Pending Received 12/26/16 17:10 Cerebral Spinal Fluid Lumbar Puncture Acid Fast Stain - Final NO ACID FAST BACILLI SEEN Resulted 12/26/16 17:10 Cerebral Spinal Fluid Lumbar Puncture Mycobacterial Culture - Preliminary NO GROWTH IN 2 WEEKS Resulted 01/09/17 19:57 Stool Stool Stool Occult Blood (SUNDAR) - Final HEMOCCULT POSITIVE Complete 12/28/16 17:50 Bronchial Washings Left Lower Lobe Fungal Smear - Final NO FUNGAL ELEMENTS SEEN. Resulted 12/28/16 17:50 Bronchial Washings Left Lower Lobe Fungal Culture - Preliminary NO GROWTH IN 2 WEEKS Resulted 01/11/17 22:25 Urine Clean Catch Urine Culture - Final NO GROWTH IN 48 HOURS. Complete Physical Exam HEENT: Normocephalic; atraumatic; no jaundice. , Thrush in the mouth NECK: Neck is supple CHEST: CTA CARDIAC: RRR with no murmur gallop or rubs. ABDOMEN: Soft, obese, nondistended, upper abd TTP; bowel sounds are present x 4 EXTREMITIES: No clubbing, cyanosis, or edema. SKIN: pale; no rash; no jaundice. EXPENDITURE REQUISITION CLERK: No focal deficits; alert and oriented x 3. Assessment and Plan Plan ASSESSMENT - Abdominal pain, unclear etiology. Reports epigastric pain. CT showing splenic infarct. CTA no mesenteric ischemia, small amount free fluid pelvis. HIDA (pt refused imaging beyond 45 min) but negative for cystic duct obstruction. MRI abd no acute processes, splenic hemangiomas D/W hem/onc, will do EGD with no bx tomorrow after platelet infusion - Diarrhea, C diff negative, stool cx neg, heme pos stool - Acute myeloid leukemia, Oncology following, induction therapy 01/14/2017 patient is still complaining of some nausea and abdominal pain, upper endoscopy showed severe thrush in the mouth and proximal esophagus and all the way to the distal esophagus consistent with Ladan infection, patient also has esophageal stricture in the distal esophagus, and severe gastritis, no biopsy was done because the patient is neutropenic and very low platelet. Most likely this symptom is related to the above PLAN -Diet as tolerated - Patient will need antifungal treatment either fluconazole Bladimir Montenegro swish and swallow all deferred back to the hematology service - Cont. Protonix BID - Cont. Carafate - Monitor HH, transfuse as necessary - Monitor labs - Supportive care Emma De Luna MD Jan 14, 2017 09:47
--- NOTE | 2017-01-14 10:05 | GIPROC ---
[facility] [address] [facility]. [facility], [address] EGD PROCEDURE REPORT EXAM DATE: 01/14/2017 PATIENT NAME: Nilson Duarte V MR #: [id number] BIRTHDATE: 1990 ATTENDING: Emma De Luna MD ORDER #: [id number] MACHINE PACKAGER: Mckenzie Howard and Gunnar Villela STATUS: inpatient INDICATIONS: The patient is a 26 yr old male here for an EGD due to diagnostic procedure, vomiting, and abdominal pain PROCEDURE PERFORMED: EGD, diagnostic MEDICATIONS: None and Per Anesthesia. TOPICAL ANESTHETIC: none CONSENT: The patient understands the risks and benefits of the procedure and understands that these risks include, but are not limited to: sedation, allergic reaction, infection, perforation and/or bleeding. Alternative means of evaluation and treatment include, among others: physical exam, x-rays, and/or surgical intervention. The patient elects to proceed with this endoscopic procedure. medical equipment was checked for proper function. Hand hygiene and appropriate measures for infection prevention was taken. After the risks, benefits and alternatives of the procedure were thoroughly explained, Informed consent was verified, confirmed and timeout was successfully executed by the treatment team. The patient was anesthetized with topical anesthesia and the Pentax [id number] endoscope was introduced through the mouth and advanced to the second portion of the duodenum. Retroflexed views revealed gastritis The gastroscope was then slowly withdrawn and removed. Severe thrush in the mouth and proximal esophagus to the distal esophagus throughout, biopsy was not done because patient is pancytopenia. Esophageal ulcer in the distal esophagus biopsy was not done. Gastritis severe throughout the stomach. ADVERSE EVENTS: There were no complications. IMPRESSIONS: 1. Severe thrush in the mouth and proximal esophagus to the distal esophagus throughout, biopsy was not done because patient is pancytopenia 2. Esophageal ulcer in the distal esophagus biopsy was not done 3. Gastritis severe throughout the stomach 4. Retroflexed views revealed gastritis RECOMMENDATIONS: 1. Anti-reflux regimen 2. Continue PPI 3. Avoid NSAIDS 4. Patient will need treatment for possible Ladan with fluconazole or nystatin, I will defer to the hematology service for best choice since the patient has leukemia PATIENT CONDITION: stable DISPOSITION: Inpatient REPEAT EXAM: Return 1 month EGD Emma De Luna MD eSigned: Emma De Luna MD 01/14/2017 10:04 AM cc:
[2017-01-14] MEDS: HYDROmorphone HCL PCA 6 MG/30 ML IV SCH ×2 (10:28→17:53)
[2017-01-14] MEDS: VANCOMYCIN INJ 2,000 MG in SODIUM CHLORID 0.9% 500 ML INJ 500 ML IV SCH (10:31)
--- NOTE | 2017-01-14 10:51 | HHI.PR ---
Subjective Remarks Patient resting in bed, reported feeling "hot "no, no nausea or vomiting, positive bowel movement this a.m. Objective Vitals Vital Signs Date Time Temp Pulse Resp B/P (MAP) Pulse Ox O2 Delivery O2 Flow Rate FiO2 01/14/17 10:28 16 01/14/17 10:03 116 22 142/68 (92) 95 01/14/17 09:45 100.9 126 20 142/59 (86) 97 01/14/17 09:04 100.1 116 20 122/56 97 01/14/17 08:30 100.0 123 19 111/57 94 01/14/17 08:12 Room Air 01/14/17 08:01 98.7 118 19 117/55 94 01/14/17 08:00 98.7 118 18 117/55 (75) 94 01/14/17 07:59 98.7 118 19 117/55 94 01/14/17 06:10 98.2 120 16 100/49 94 01/14/17 06:00 16 01/14/17 04:00 121 01/14/17 04:00 98.8 130 18 115/56 (75) 95 01/14/17 00:00 101.0 123 18 115/53 (73) 92 01/14/17 00:00 126 01/13/17 22:00 16 01/13/17 20:40 93 Room Air 01/13/17 20:00 97.7 117 18 118/51 (73) 95 01/13/17 20:00 117 01/13/17 16:00 97.9 110 20 130/58 (82) 93 01/13/17 15:51 18 01/13/17 13:00 97.4 117 18 129/58 (81) 93 01/13/17 13:00 98.4 135 18 118/56 95 I/O 01/13/17 01/13/17 01/13/17 01/14/17 01/14/17 01/14/17 07:00 15:00 23:00 07:00 15:00 23:00 Intake Total 240 ml 1290 ml 240 ml 551 ml Balance 240 ml 1290 ml 240 ml 551 ml Intake Oral 240 ml 1050 ml 240 ml Platelets 230 ml 521 ml Blood Product IV Normal Saline Flush 10 ml 30 ml # Voids 1 1 1 1 # Bowel Movements 1 1 1 1 Result Diagram: 01/13/17204401/13/17 0540 Objective Remarks GENERAL: This is a well-nourished, well-developed patient, in no apparent distress. SKIN: No rashes, warm and dry HEAD: Atraumatic. Normocephalic. EYES: Pupils equal round and reactive. Extraocular motions intact. No scleral icterus. ENT: Nose without bleeding, or drainage, Airway patent. NECK: Trachea midline. Supple CARDIOVASCULAR: Regular rate and rhythm without murmurs, gallops, or rubs. RESPIRATORY: Fair air entry bilaterally. No wheezes, rales, or rhonchi. GASTROINTESTINAL: Abdomen soft, non-tender, nondistended. Positive bowel sounds MUSCULOSKELETAL: Extremities without clubbing, cyanosis, or edema. Pedal pulses appreciated NEUROLOGICAL: Awake and alert. Moves all extremity. Normal speech.no focal neurological deficit Procedures 12/31 [id number] placement A/P Problem List: (1) SIRS (systemic inflammatory response syndrome) ICD Code: R65.10 - Systemic inflammatory response syndrome (SIRS) of non- infectious origin without acute organ dysfunction Status: Acute (2) GABRIELA (acute kidney injury) ICD Code: N17.9 - Acute kidney failure, unspecified Status: Acute (3) Thrombocytopenia ICD Code: D69.6 - Thrombocytopenia, unspecified Status: Acute (4) Lymphocytosis ICD Code: D72.820 - Lymphocytosis (symptomatic) Status: Acute (5) Anemia ICD Code: D64.9 - Anemia, unspecified Status: Acute Assessment and Plan 01/14: Temperature is 100, increase heart rate 116-123, platelet count is 5 yesterday, CBC 0.3, continue monitoring, CBC for today pending repeat CBC in a.m. EGD 01/14>gasteritis and distal esoph ulcer Mr. Duarte is 26 yo, with no significant past medical history. -- Neutropenic fever: Continue monitoring for fever per IDs recommendations. Afebrile. Blood cultures show no growth in 5 days x 2. CSF cultures and BAL shows no growth. 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 Patients with rearrangement of CBFB in AML may have a higher risk of CUSTOMER ACQUISITION MANAGER involvement at diagnosis or at relapse than patients with other types of AML. Inversion 16 or t(16;16), with or without additional chromosome abnormalities, has been associated with complete remission and improved long-term survival. MUGA scan shows normal EF and no wall motion abnormalities 12/30/2016 Port placement by IR completed 12/31/16 - CMV negative, HIV and Hep B and C negative --Abdominal pain - splenic infarcts likely contributing. HIDA shows no significant abnormalities. CTA Abd showing no signs of occlusive atherosclerosis , C.diff negative x 2. On IV Dilaudid for this. Initial stool occults were negative in late January, 01/09 hemoccult positive. Unable to tolerate EGD at this time due to low platelets. agree w/ carafate, protonix, and abx. H.PYLORI ANTIGEN pending. Started on Zosyn empirically for possible neutropenic enterocolitis per hem/onc. MRI negative for acute findings. Splenic hemangiomas noted. --Diarrhea - stool studies pending. Lactobacillus added to regimen. C diff negative x 2. 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 Doppler studies negative for DVT. PT/OT eval/tx. IS and acapella use. Kevin Montiel MD Jan 14, 2017 10:51
[2017-01-14 11:02] LABS: HEMATOCRIT 24.4 % (39.0-51.0); LYMPH % 94.6 % (9.0-44.0); LYMPHOCYTE # 0.3 TH/MM3 (1.0-4.8); MEAN CELL VOLUME 89.9 FL (80.0-100.0); MEAN CORPUSCULAR HEMOGLOBIN 31.5 PG (27.0-34.0); MEAN CORPUSCULAR HGB CONC 35.1 % (32.0-36.0); MONO % 5.2 % (0.0-8.0); NEUT % 0.2 % (16.0-70.0); RED BLOOD COUNT 2.71 MIL/MM3 (4.50-5.90); RED CELL DISTRIBUTION WIDTH 14.7 % (11.6-17.2); WHITE BLOOD COUNT 0.3 TH/MM3 (4.0-11.0)
[2017-01-14 11:16] LABS: HEMO FLAGS AUTO DIFF
[2017-01-14 11:18] LABS: PLATELET COUNT 13 TH/MM3 (150-450)
[2017-01-14 11:55] LABS: WBC DIFF SAMPLE 50
[2017-01-14 11:56] LABS: PLATELET ESTIMATE SMEAR RARE (NORMAL); PLATELET MORPHOLOGY NORMAL (NORMAL); SCAN/DIFF FINAL DIFF MANUAL
[2017-01-14 12:04] LABS: BICARBONATE 30.8 MEQ/L (21.0-32.0); MAGNESIUM 2.1 MG/DL (1.5-2.5); TOTAL BILIRUBIN ADULT 2.3 MG/DL (0.2-1.0)
[2017-01-14 12:09] LABS: CALCIUM-PROTEIN CORRECTED 8.5 MG/DL (8.5-10.1)
[2017-01-14 12:41] LABS: POTASSIUM 2.9 MEQ/L (3.5-5.1)
[2017-01-14] MEDS: FLUCONAZOLE 400 MG PREMIX BAG 200 ML IV SCH (12:46)
[2017-01-14] MEDS: NYSTATIN SUSP 500,000 U/5 ML CUP SWISH-SWAL SCH ×3 (12:46→20:00)
[2017-01-14] MEDS ORDERED: PROMETHAZINE INJ 25 MG/ML VIAL IV-CENTRAL STA (14:11)
[2017-01-14] MEDS: ALLOPURINOL 100 MG TAB PO SCH (14:41)
[2017-01-14] MEDS: POTASSIUM CHLOR 40 MEQ PREMIX 100 ML IV SCH ×2 (15:14→17:54)
[2017-01-14] MEDS: PROMETHAZINE INJ 25 MG/ML VIAL IV-CENTRAL PRN ×2 (18:35→23:52)
[2017-01-14 21:15] LABS: HEMATOCRIT 23.2 % (39.0-51.0); MEAN CELL VOLUME 90.1 FL (80.0-100.0); MEAN CORPUSCULAR HEMOGLOBIN 30.6 PG (27.0-34.0); RED BLOOD COUNT 2.58 MIL/MM3 (4.50-5.90); RED CELL DISTRIBUTION WIDTH 14.6 % (11.6-17.2); WHITE BLOOD COUNT 0.3 TH/MM3 (4.0-11.0)
[2017-01-14 21:43] LABS: APTT (PATIENT) 42.9 SEC (24.3-30.1); INTERNATIONAL NORMALIZED RATIO 1.7 RATIO
[2017-01-14 21:53] LABS: PLATELET COUNT 10 TH/MM3 (150-450); REVIEW FLAG FINAL
[2017-01-15] VITALS (13 sets, daily range): BP systolic 108–130; BP diastolic 52–63; PULSE 96–118; RESP 18–22; TEMP 96.9–100.2; O2SAT 93–97
[2017-01-15] MEDS: VANCOMYCIN INJ 2,500 MG in SODIUM CHLORID 0.9% 500 ML INJ 500 ML IV SCH ×3 (00:55→23:22)
[2017-01-15] MEDS: HYDROmorphone HCL PF 2 MG/ML VIAL IV PUSH PRN ×3 (01:14→21:08)
[2017-01-15] MEDS: ONDANSETRON HCL 4 MG/2 ML VIAL IV PUSH PRN ×2 (05:21→21:07)
[2017-01-15] MEDS: PIPERACIL-TAZO 4.5 GM PREMIX 100 ML IV SCH ×4 (05:23→21:07)
[2017-01-15] MEDS: SUCRALFATE 1 GM/10 ML CUP PO SCH ×4 (05:30→21:08)
[2017-01-15] MEDS: PCA - TOTAL MG DILAUDID DELIVERED PER SHIFT OTHER SCH ×3 (06:00→22:00)
[2017-01-15 06:06] LABS: HEMATOCRIT 21.7 % (39.0-51.0); MEAN CELL VOLUME 90.2 FL (80.0-100.0); MEAN CORPUSCULAR HEMOGLOBIN 31.1 PG (27.0-34.0); MEAN CORPUSCULAR HGB CONC 34.4 % (32.0-36.0); PLATELET COUNT 4 TH/MM3 (150-450); RED CELL DISTRIBUTION WIDTH 14.4 % (11.6-17.2); WHITE BLOOD COUNT 0.3 TH/MM3 (4.0-11.0)
[2017-01-15] MEDS: HYDROmorphone HCL PCA 6 MG/30 ML IV SCH ×2 (06:06→16:25)
[2017-01-15 06:18] LABS: APTT (PATIENT) 46.1 SEC (24.3-30.1); INTERNATIONAL NORMALIZED RATIO 1.7 RATIO; PROTHROMBIN TIME - PATIENT 19.2 SEC (9.8-11.6)
[2017-01-15 06:28] LABS: HEMO FLAGS AUTO DIFF
[2017-01-15] MEDS ORDERED: BENZOCAINE 6 MG/MENTHOL 10 MG LOZENGE BUCCAL PRN (06:30)
[2017-01-15 06:52] LABS: BICARBONATE 32.6 MEQ/L (21.0-32.0); INDIRECT BILIRUBIN 0.7 MG/DL (0.0-0.8); MAGNESIUM 2.3 MG/DL (1.5-2.5); POTASSIUM 3.2 MEQ/L (3.5-5.1); TOTAL BILIRUBIN ADULT 1.8 MG/DL (0.2-1.0)
[2017-01-15] MEDS ORDERED: SODIUM CHLOR 0.9% 250 ML INJ 250 ML IV ONE ×2 (07:45)
[2017-01-15 07:51] LABS: CALCIUM-PROTEIN CORRECTED 8.5 MG/DL (8.5-10.1)
[2017-01-15] MEDS: NYSTATIN SUSP 500,000 U/5 ML CUP SWISH-SWAL SCH ×4 (07:51→21:08)
[2017-01-15] MEDS: ALLOPURINOL 100 MG TAB PO SCH (07:52)
[2017-01-15] MEDS: MUPIROCIN 2% OINT 22 GM TUBE TOPICAL SCH ×3 (07:52→18:22)
[2017-01-15] MEDS: PROMETHAZINE INJ 25 MG/ML VIAL IV-CENTRAL PRN ×2 (07:52→12:48)
[2017-01-15 08:02] LABS: PLATELET ESTIMATE SMEAR RARE (NORMAL); PLATELET MORPHOLOGY NORMAL (NORMAL); SCAN/DIFF FINAL DIFF MANUAL; WBC DIFF SAMPLE 10
[2017-01-15] MEDS ORDERED: diphenhydrAMINE HCL 50 MG/ML VIAL IV PUSH ONE (08:15)
[2017-01-15] MEDS: Hickman Catheter Daily NS Lock Flush IV FLUSH SCH (08:32)
[2017-01-15] MEDS: SODIUM CHLORIDE 0.9% FLUSH 10 ML FLUSH IV FLUSH SCH ×2 (08:33→21:00)
[2017-01-15] MEDS ORDERED: POTASSIUM PHOSPHATE INJ 30 MMOL in SODIUM CHLOR 0.9% 250 ML INJ 250 ML IV ONE (09:00)
[2017-01-15 09:27] LABS: C. DIFF EPI 027 PRESUMPTIVE NEGATIVE (NEGATIVE)
[2017-01-15] MEDS ORDERED: IOHEXOL 350 MG/ML 10 ML VIAL (for RAD DIAG) IVCONTRAST ONE (10:17)
--- NOTE | 2017-01-15 10:34 | RADRPT ---
EXAM DATE/TIME: 01/15/2017 09:54 [facility] COMPARISON: No previous studies available for comparison. INDICATIONS : Inflammation IV CONTRAST: 92 cc Omnipaque 350 (iohexol) IV ; Cumulative dose for multiple exams. RADIATION DOSE: 18.38 CTDIvol (mGy) MEDICAL HISTORY : None SURGICAL HISTORY : None. ENCOUNTER: Subsequent ACUITY: 4 - 6 days PAIN SCALE: 8/10 LOCATION: neck TECHNIQUE: Volumetric scanning of the neck was performed. Using automated exposure control and adjustment of th e mA and/or kV according to patient size, radiation dose was kept as low as reasonably achievable to obtain optimal diagnostic quality images. DICOM format image data is available electronically for r eview and comparison. FINDINGS: There is no evidence for any appreciable pathological adenopathy in the patient's neck. There are sma ll lymph nodes bilaterally with fatty hilum benign in appearance the largest measures 1.5 cm on the r ight. There are also a few tiny lymph nodes in supraclavicular region on the left. There is slight sc arring in the right apex. The parotid glands, submandibular glands, thyroid glands appear intact. Th e visceral compartment is grossly intact without infiltrating mass. There is mild mucoperiosteal thic kening within bilateral maxillary sinuses. CONCLUSION: Mild sinusitis within the maxillary sinuses, slight scarring right apex of the lung. Patricia Contreras MD on January 15, 2017 at 10:12 Board Certified Radiologist. This report was verified electronically.
--- NOTE | 2017-01-15 10:44 | RADRPT ---
EXAM DATE/TIME: 01/15/2017 09:58 [facility] COMPARISON: CT THORAX W CONTRAST, December 26, 2016, 17:45. INDICATIONS : Facial swelling, possible SVT syndrome due to port IV CONTRAST: 92 cc Omnipaque 350 (iohexol) IV RADIATION DOSE: 10.04 CTDIvol (mGy) ; Patient body habitus MEDICAL HISTORY : None SURGICAL HISTORY : None. ENCOUNTER: Subsequent ACUITY: 4 - 6 days PAIN SCALE: 8/10 LOCATION: chest TECHNIQUE: Volumetric scanning of the chest was performed. Using automated exposure control and adjustment of t he mA and/or kV according to patient size, radiation dose was kept as low as reasonably achievable to obtain optimal diagnostic quality images. DICOM format image data is available electronically for review and comparison. Follow-up recommendations for detected pulmonary nodules are based at a minimum on nodule size and pa tient risk factors according to Fleischner Society Guidelines. FINDINGS: There is focal infiltrate in the right lower lobe improved since the prior examination and left lung base infiltrate has basically resolved. Slight infiltrate remains in the right upper lobe and lower l obe. There is no pleural effusion. No appreciable pathological adenopathy is seen within the mediast inum. There are benign appearing lymph nodes within the mediastinum the largest one measures almost 1 .8 cm in size in subcarinal location not significantly changed. CONCLUSION: Left lung infiltrate has resolved and there is improvement in right lung infiltrates with residual infiltrate remaining. Patricia Contreras MD on January 15, 2017 at 10:35 Board Certified Radiologist. This report was verified electronically.
--- NOTE | 2017-01-15 10:50 | PD.ONC.PN ---
Subjective Subjective Remarks Tmax 100.3 overnight. Patient continuing to have severe abdominal pain. Nurse noticed increased swelling in the face and neck overnight and some redness to his face. No difficulty breathing. Still with painful swallowing. Objective Data Date Time Temp Pulse Resp B/P (MAP) Pulse Ox O2 Delivery O2 Flow Rate FiO2 01/15/17 09:55 Room Air 01/15/17 08:00 99.2 113 18 108/52 (70) 96 01/15/17 06:06 16 01/15/17 06:00 16 01/15/17 04:00 96.9 112 20 127/63 (84) 93 01/15/17 00:00 99.6 118 22 114/53 (73) 94 01/14/17 20:00 100.3 121 22 121/53 (75) 92 01/14/17 18:35 19 01/14/17 17:53 19 01/14/17 16:22 97.9 118 18 137/63 (87) 93 01/14/17 14:23 19 01/14/17 12:00 101.0 121 18 132/52 (78) 90 01/14/17 11:42 100.6 01/15/17 01/15/17 01/15/17 06:59 14:59 22:59 Intake Total 950 ml Output Total 1000 ml Balance -1000 ml 950 ml Result Diagram: 01/15/17 0540 01/15/17 0540 Laboratory Results Laboratory Tests Test 01/14/17 21:00 01/15/17 05:40 01/15/17 08:00 White Blood Count 0.3 TH/MM3 0.3 TH/MM3 Red Blood Count 2.58 MIL/MM3 2.40 MIL/MM3 Hemoglobin 7.9 GM/DL 7.5 GM/DL Hematocrit 23.2 % 21.7 % Mean Corpuscular Volume 90.1 FL 90.2 FL Mean Corpuscular Hemoglobin 30.6 PG 31.1 PG Mean Corpuscular Hemoglobin Concent 34.0 % 34.4 % Red Cell Distribution Width 14.6 % 14.4 % Platelet Count 10 TH/MM3 4 TH/MM3 Mean Platelet Volume 8.5 FL 9.0 FL Prothrombin Time 19.0 SEC 19.2 SEC Prothromb Time International Ratio 1.7 RATIO 1.7 RATIO Activated Partial Thromboplast Time 42.9 SEC 46.1 SEC CBC Comment AUTO DIFF Differential Total Cells Counted 10 Lymphocytes % 100 % Neutrophils # (Manual) 0.0 TH/MM3 Differential Comment FINAL DIFF MANUAL Platelet Estimate RARE Platelet Morphology Comment NORMAL Blood Urea Nitrogen 18 MG/DL Creatinine 0.61 MG/DL Random Glucose 107 MG/DL Total Protein 4.0 GM/DL Albumin 1.3 GM/DL Calcium Level 6.8 MG/DL Phosphorus Level 1.8 MG/DL Magnesium Level 2.3 MG/DL Alkaline Phosphatase 42 U/L Aspartate Amino Transf (AST/SGOT) 4 U/L Alanine Aminotransferase (ALT/SGPT) 10 U/L Total Bilirubin 1.8 MG/DL Direct Bilirubin 1.1 MG/DL Sodium Level 136 MEQ/L Potassium Level 3.2 MEQ/L Chloride Level 99 MEQ/L Carbon Dioxide Level 32.6 MEQ/L Anion Gap 4 MEQ/L Estimat Glomerular Filtration Rate 162 ML/MIN Protein Corrected Calcium 8.5 MG/DL Indirect Bilirubin 0.7 MG/DL Stool C. difficile Toxin (PCR) NEGATIVE Stl C. difficile Toxin Epiderm 027 PRESUMPTIVE NEGATIVE Culture Results Microbiology Date/Time Source Procedure Growth Status 01/14/17 01:35 Blood Line Aerobic Blood Culture Pending Received 01/14/17 01:35 Blood Line Anaerobic Blood Culture Pending Received 01/14/17 00:25 Blood Line Aerobic Blood Culture Pending Received 01/14/17 00:25 Blood Line Anaerobic Blood Culture Pending Received 01/12/17 21:00 Blood Line Aerobic Blood Culture - Preliminary NO GROWTH IN 2 DAYS Resulted 01/12/17 21:00 Blood Line Anaerobic Blood Culture - Preliminary NO GROWTH IN 2 DAYS Resulted 01/12/17 20:54 Blood Line Aerobic Blood Culture - Preliminary NO GROWTH IN 2 DAYS Resulted 01/12/17 20:54 Blood Line Anaerobic Blood Culture - Preliminary NO GROWTH IN 2 DAYS Resulted Imaging Studies Last [address] 01/15/17 0806 Signed Impressions: Service Date/Time: Sunday, January 15, 2017 09:54 - CONCLUSION: Mild sinusitis within the maxillary sinuses, slight scarring right apex of the lung. Patricia Contreras MD Administered Medications Medications (Trade) Dose Ordered Sig/Emma Route PRN Reason Start Time Stop Time Status Last Admin Dose Admin Sodium Chloride (NS Flush) 2 ml UNSCH PRN IV FLUSH FLUSH AFTER USING IV ACCESS 12/25/16 23:00 12/30/16 04:59 Sodium Chloride (NS Flush) 2 ml BID IV FLUSH 12/26/16 09:00 01/13/17 10:42 Acetaminophen (Tylenol) 650 mg Q6H PRN PO FEVER>100.4 12/25/16 23:00 01/14/17 10:30 Benzonatate (Tessalon) 100 mg Q4H PRN PO COUGH 12/26/16 05:15 12/26/16 15:12 Diphenhydramine HCl (Benadryl) 25 mg Q4H PRN PO SEE LABEL COMMENTS 12/27/16 04:15 01/14/17 05:25 Acetaminophen (Tylenol) 650 mg Q4H PRN PO SEE LABEL COMMENTS 12/27/16 04:15 01/13/17 12:57 Mupirocin (Bactroban 2% Oint) 1 applic TID TOPICAL 12/27/16 14:15 01/15/17 07:52 Sodium Chloride (NS Flush) 5 ml DAILY IV FLUSH 12/30/16 09:00 01/13/17 10:42 Heparin Sodium (Porcine) (Heparin Central Flush) 500 units UNSCH PRN IV FLUSH SEE PROTOCOL TABLE 12/30/16 06:30 12/31/16 15:45 Allopurinol (Zyloprim) 200 mg DAILY PO 01/06/17 09:00 01/15/17 07:52 Hyoscyamine Sulfate (Levsin) 0.25 mg Q4H PRN PO CRAMPS 01/06/17 09:30 01/06/17 10:06 Sucralfate (Carafate Liq) 1 gm ACHS PO 01/09/17 16:00 01/15/17 05:30 Pantoprazole Sodium 80 mg/ Sodium Chloride 100 ml @ 10 mls/hr CONTINUOUS IV 01/11/17 16:00 01/14/17 19:25 Hydromorphone HCl (Dilaudid [employer] Inj) 6 mg UNSCH IV 01/11/17 15:15 01/15/17 06:06 [employer] Dosage Infused (Pha) 1 Q8HR OTHER 01/11/17 15:45 01/15/17 06:00 Ondansetron HCl (Zofran Inj) 8 mg Q8H PRN IV PUSH NAUSEA 01/11/17 17:15 Future hold 01/15/17 05:21 Hydromorphone HCl (Dilaudid Pf Inj) 2 mg Q4H PRN IV PUSH SEVERE BREAKTHROUGH PAIN 01/12/17 15:30 01/15/17 10:27 Potassium Chloride/Sodium Chloride 1,000 ml @ 100 mls/hr Q10H IV 01/13/17 15:00 01/13/17 20:00 Piperacillin Sod/ Tazobactam Sod 100 ml @ 200 mls/hr Q6H IV 01/13/17 21:00 01/15/17 07:51 Fluconazole/ Sodium Chloride 200 ml @ 100 mls/hr Q24H IV 01/14/17 12:00 01/14/17 12:46 Nystatin (Mycostatin Liq) 5 ml QID SWISH-SWAL 01/14/17 13:00 01/15/17 07:51 Vancomycin HCl 2500 mg/Sodium Chloride 525 ml @ 250 mls/hr Q12H IV 01/14/17 21:00 01/15/17 08:38 Promethazine HCl (Phenergan Inj) 12.5 mg Q4H PRN IV-CENTRAL nausea 01/14/17 16:45 01/15/17 07:52 Objective Remarks GENERAL: Young man, lying in bed SKIN: Warm and dry. HEAD: Normocephalic. EYES: No injection or drainage. NECK: Supple, trachea midline. CARDIOVASCULAR: +S1/S2, tachy RESPIRATORY: Breath sounds equal bilaterally. No accessory muscle use. GASTROINTESTINAL: soft, tender to palpation throughout. MUSCULOSKELETAL: No cyanosis NEURO: awake and alert, normal speech. moving all extremities. 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 Patients with rearrangement of CBFB in AML may have a higher risk of PASTRYCOOK involvement at diagnosis or at relapse than patients with other types of AML. Inversion 16 or t(16;16), with or without additional chromosome abnormalities, has been associated with complete remission and improved long-term survival. - MUGA scan shows normal EF and no wall motion abnormalities 12/30/2016 - Port placement by IR completed 12/31/16 - Induction chemotherapy started 12/31-- 7+3 regimen with Daunorubicin 90mg/m2 and Cytaribine 100mg/m2-- Dosing capped at BSA of 2 - CMV negative, HIV and Hep B and C negative 12/31 Day 1: Daunorubicin and Cytarabine 01/01 Day 2: Daunorubicin and Cytarabine 01/02 Day 3: Daunorubicin and Cytarabine 01/03 Day 4: Cytarabine 01/04 Day 5: Cytarabine 01/05 Day 6: Cytarabine 01/06 Day 7: Cytarabine 01/07 Day 8: Last bag cytarabine infusing; will finish approx. 3am. Transfuse 1 unit irr. platelets, 1 unit irr. PRBC's. 01/08: D9. abdominal pain persistent. 2 units pRBC 01/09: D10. 2 additional units pRBC ordered. 1 unit platelets ordered 01/10: D11. 2 units pRBC. 1 unit platelets. + stool hemoccult 01/12: D13: 2 units pRBC. 1 unit platelets. 01/13: D14: 1 unit platelets. BB working to obtain HLA matched platelets 01/14: D15. 2 units HLA matched platelets given. spoke with BB they will have two units HLA matched on hand at all times. EGD today. 01/15: D16: 1 unit platelets, 1 unit pRBC. swelling in neck and face, ?SVC syndrome. CT chest and CT neck ordered (2) Neutropenia ICD Codes: D70.9 - Neutropenia, unspecified Status: Acute Plan: -- ID following -- On Zosyn +Vanco -- BC on 12/25 = no growth. -- Bronchoscopy on 12/28= no growth. -- BC on 12/29= no growth. --BC 01/12= no growth --BC 01/14 pending (3) Abdominal pain ICD Codes: R10.9 - Unspecified abdominal pain Plan: -- Epigastric area pain--EGD, 01/14 showed thrush and distal esophageal ulcer as well as severe gastritis. -- Amylase, lipase WNL -- CT abdomen/ pelvis shows splenic infarcts; --CTA abdomen shows no mesenteric emboli --Abdominal U/S: shows no acute findings. enlarged liver and spleen. --GI following --on Protonix, Carafate, Zosyn, Vanco, Diflucan +stool hemoccult (4) Pancytopenia ICD Codes: D61.818 - Other pancytopenia Plan: - Check Fibrinogen every other day - Transfuse to keep platelets > 10 - Will need irradiated CMV negative blood products -- transfuse to keep Hb > 7 (5) GIB (gastrointestinal bleeding) ICD Codes: K92.2 - Gastrointestinal hemorrhage, unspecified Plan: --+ stool hemoccult on 01/09/17 --on Protonix + Carafate --EGD on 01/14 showed distal esophageal ulcer. --monitor serial H/H, transfuse as needed Assessment 26 y/o male with no major past medical history who was brought in for headache, confusion and cough and found to be pancytopenic and circulating blast cells. Bone marrow biopsy confirmed Acute Myeloid Leukemia: Plan 1. 1 unit platelets, 1 unit pRBC today 2. CT neck and CT chest ordered 3. replace potassium and phosphorus Problem Qualifiers (1) Acute myelogenous leukemia: Qualified Codes: C92.00 - Acute myeloblastic leukemia, not having achieved remission (2) Neutropenia: Fartun Pagan Jan 15, 2017 10:50
[2017-01-15] MEDS: FLUCONAZOLE 400 MG PREMIX BAG 200 ML IV SCH (12:48)
[2017-01-15] MEDS: diphenhydrAMINE HCL 25 MG CAP PO PRN (13:52)
[2017-01-15] MEDS: ACETAMINOPHEN 325 MG TAB PO PRN (13:52)
[2017-01-15] MEDS: D5-NS + KCL 20 MEQ INJ 1,000 ML IV SCH (13:54)
--- NOTE | 2017-01-15 16:45 | HHI.GIFU ---
Subjective Remarks Pt resting in bed. Says today his pain in under control and his nausea is improved, tolerating liquids (Shelley Piña) Objective Vitals I&O Vital Signs Date Time Temp Pulse Resp B/P (MAP) Pulse Ox O2 Delivery O2 Flow Rate FiO2 01/15/17 16:29 98.4 103 19 125/54 93 01/15/17 16:25 19 01/15/17 13:53 19 01/15/17 12:14 115 01/15/17 12:00 100.2 117 18 130/54 (79) 94 01/15/17 09:55 Room Air 01/15/17 08:00 99.2 113 18 108/52 (70) 96 01/15/17 07:59 117 01/15/17 06:06 16 01/15/17 06:00 16 01/15/17 04:00 96.9 112 20 127/63 (84) 93 01/15/17 00:00 99.6 118 22 114/53 (73) 94 01/14/17 20:00 100.3 121 22 121/53 (75) 92 01/14/17 18:35 19 01/14/17 17:53 19 I/O 01/14/17 01/14/17 01/14/17 01/15/17 01/15/17 01/15/17 07:00 15:00 23:00 07:00 15:00 23:00 Intake Total 240 ml 1196 ml 100 ml 984 ml Output Total 300 ml 900 ml 1000 ml Balance 240 ml 896 ml -800 ml -1000 ml 984 ml Intake Oral 240 ml IV Total 620 ml 100 ml 984 ml Platelets 521 ml Blood Product IV Normal Saline Flush 30 ml Other 25 ml Output Urine Total 900 ml 1000 ml Emesis 300 ml # Voids 1 3 1 # Bowel Movements 1 1 1 Laboratory Laboratory Tests Test 01/14/17 21:00 01/15/17 05:40 01/15/17 08:00 White Blood Count 0.3 0.3 Red Blood Count 2.58 2.40 Hemoglobin 7.9 7.5 Hematocrit 23.2 21.7 Mean Corpuscular Volume 90.1 90.2 Mean Corpuscular Hemoglobin 30.6 31.1 Mean Corpuscular Hemoglobin Concent 34.0 34.4 Red Cell Distribution Width 14.6 14.4 Platelet Count 10 4 Mean Platelet Volume 8.5 9.0 Prothrombin Time 19.0 19.2 Prothromb Time International Ratio 1.7 1.7 Activated Partial Thromboplast Time 42.9 46.1 CBC Comment AUTO DIFF Differential Total Cells Counted 10 Lymphocytes % 100 Neutrophils # (Manual) 0.0 Differential Comment FINAL DIFF MANUAL Platelet Estimate RARE Platelet Morphology Comment NORMAL Blood Urea Nitrogen 18 Creatinine 0.61 Random Glucose 107 Total Protein 4.0 Albumin 1.3 Calcium Level 6.8 Phosphorus Level 1.8 Magnesium Level 2.3 Alkaline Phosphatase 42 Aspartate Amino Transf (AST/SGOT) 4 Alanine Aminotransferase (ALT/SGPT) 10 Total Bilirubin 1.8 Direct Bilirubin 1.1 Sodium Level 136 Potassium Level 3.2 Chloride Level 99 Carbon Dioxide Level 32.6 Anion Gap 4 Estimat Glomerular Filtration Rate 162 Protein Corrected Calcium 8.5 Indirect Bilirubin 0.7 Stool C. difficile Toxin (PCR) NEGATIVE Stl C. difficile Toxin Epiderm 027 PRESUMPTIVE NEGATIVE Date/Time Source Procedure Growth Status 01/14/17 01:35 Blood Line Aerobic Blood Culture - Preliminary NO GROWTH IN 1 DAY Resulted 01/14/17 01:35 Blood Line Anaerobic Blood Culture - Preliminary NO GROWTH IN 1 DAY Resulted 12/26/16 17:10 Cerebral Spinal Fluid Lumbar Puncture Acid Fast Stain - Final NO ACID FAST BACILLI SEEN Resulted 12/26/16 17:10 Cerebral Spinal Fluid Lumbar Puncture Mycobacterial Culture - Preliminary NO GROWTH IN 2 WEEKS Resulted 01/09/17 19:57 Stool Stool Stool Occult Blood (SUNDAR) - Final HEMOCCULT POSITIVE Complete 12/28/16 17:50 Bronchial Washings Left Lower Lobe Fungal Smear - Final NO FUNGAL ELEMENTS SEEN. Resulted 12/28/16 17:50 Bronchial Washings Left Lower Lobe Fungal Culture - Preliminary NO GROWTH IN 2 WEEKS Resulted 01/11/17 22:25 Urine Clean Catch Urine Culture - Final NO GROWTH IN 48 HOURS. Complete Physical Exam HEENT: Normocephalic; atraumatic; no jaundice. CHEST: CTA CARDIAC: RRR with no murmur gallop or rubs. ABDOMEN: Soft, obese, nondistended, mild TTP epigastrium less severe than yesterday; bowel sounds are present x 4 EXTREMITIES: No clubbing, cyanosis, or edema. SKIN: pale; no rash; no jaundice. [employer]: No focal deficits; alert and oriented x 3. (Shelley Piña) Assessment and Plan Plan ASSESSMENT - Abdominal pain- Reports epigastric pain. CT showing splenic infarct. CTA no mesenteric ischemia, small amount free fluid pelvis. HIDA (pt refused imaging beyond 45 min) but negative for cystic duct obstruction. MRI abd no acute processes, splenic hemangiomas D/W hem/onc, s/p EGD -->severe thrush in the mouth and proximal esophagus and all the way to the distal esophagus consistent with Ladan infection, patient also has esophageal stricture in the distal esophagus, and severe gastritis - Diarrhea, C diff negative, stool cx neg, heme pos stool - Acute myeloid leukemia, Oncology following, induction therapy PLAN -Diet as tolerated - continue diflucan - Cont. Protonix BID - Cont. Carafate - Monitor HH, transfuse as necessary - Monitor labs - Supportive care - GI will s/o for now, please reconsult if needed This pt seen by myself and Dr De Luna and this note is written on his behalf (Shelley Piña) Plan Patient was seen and examined, doing better able to tolerate some fluids and soft diet today, started on fluconazole and nystatin. Continue current care we will follow up as needed thank you (Emma De Luna MD) Shelley Piña Jan 15, 2017 16:45 Emma De Luna MD Jan 15, 2017 21:55
[2017-01-15] MEDS: PANTOPRAZOLE INJ 80 MG in SODIUM CHLORIDE 0.9% INJ 100 ML IV SCH (18:22)
--- NOTE | 2017-01-15 21:21 | RADRPT ---
EXAM DATE/TIME: 01/15/2017 19:57 [facility] COMPARISON: No previous studies available for comparison. INDICATIONS : Bilateral arm swelling. MEDICAL HISTORY : Migraines. Abdominal pain. Diarrhea. Nausea/vomiting. SURGICAL HISTORY : Woodrow teeth. ENCOUNTER: Initial ACUITY: 1 day PAIN SCORE: 0/10 LOCATION: Bilateral arm. FINDINGS: RIGHT UPPER EXTREMITY: There is spontaneous flow documented in the brachial, basilic, axillary, and subclavian veins. Nonocc lusive thrombus right cephalic vein. The other vessels are compressible and augmentation response is documented. LEFT UPPER EXTREMITY: There is spontaneous flow documented in the brachial, basilic, cephalic, axillary, and subclavian vei ns. The vessels are compressible and augmentation response is documented. No filling defects are se en. The flow is phasic with respiration. Direction of flow in the jugular vein is caudal. CONCLUSION: 1. Nonocclusive superficial thrombus right cephalic vein. Remainder of the deep venous system is shin nt. Leander Fiore MD on January 15, 2017 at 21:18 Board Certified Radiologist. This report was verified electronically.
[2017-01-16] VITALS (11 sets, daily range): BP systolic 104–143; BP diastolic 50–63; PULSE 99–107; RESP 18–20; TEMP 96–99.4; O2SAT 92–96
[2017-01-16] MEDS: ACETAMINOPHEN 325 MG TAB PO PRN ×2 (02:23→23:44)
[2017-01-16] MEDS: diphenhydrAMINE HCL 25 MG CAP PO PRN ×2 (02:23→23:44)
[2017-01-16] MEDS: PROMETHAZINE INJ 25 MG/ML VIAL IV-CENTRAL PRN (02:25)
[2017-01-16] MEDS: HYDROmorphone HCL PF 2 MG/ML VIAL IV PUSH PRN ×4 (02:29→20:37)
[2017-01-16] MEDS: PIPERACIL-TAZO 4.5 GM PREMIX 100 ML IV SCH ×4 (02:29→20:37)
[2017-01-16] MEDS: SUCRALFATE 1 GM/10 ML CUP PO SCH ×4 (05:23→20:34)
[2017-01-16] MEDS: PCA - TOTAL MG DILAUDID DELIVERED PER SHIFT OTHER SCH ×3 (05:31→22:00)
[2017-01-16] MEDS: D5-NS + KCL 20 MEQ INJ 1,000 ML IV SCH ×2 (05:31→07:55)
[2017-01-16] MEDS: ALLOPURINOL 100 MG TAB PO SCH (07:56)
[2017-01-16] MEDS: Hickman Catheter Daily NS Lock Flush IV FLUSH SCH (07:56)
[2017-01-16] MEDS: SODIUM CHLORIDE 0.9% FLUSH 10 ML FLUSH IV FLUSH SCH ×2 (07:56→20:37)
[2017-01-16] MEDS: NYSTATIN SUSP 500,000 U/5 ML CUP SWISH-SWAL SCH ×4 (07:56→20:34)
[2017-01-16] MEDS: SODIUM CHLORIDE 0.9% FLUSH 10 ML FLUSH IV FLUSH PRN (07:57)
[2017-01-16] MEDS: MUPIROCIN 2% OINT 22 GM TUBE TOPICAL SCH ×3 (07:58→16:51)
[2017-01-16] MEDS ORDERED: PHARMACY ORDERED LAB ONE (08:45)
--- NOTE | 2017-01-16 09:56 | PD.ONC.PN ---
Subjective Subjective Remarks Afebrile Abdominal pain is much better controlled Now reports that he has generalized body aches and pains Objective Data Date Time Temp Pulse Resp B/P (MAP) Pulse Ox O2 Delivery O2 Flow Rate FiO2 01/16/17 09:06 Room Air 01/16/17 07:50 96.0 101 20 109/51 (70) 92 01/16/17 05:31 16 01/16/17 05:26 96.4 102 18 104/50 (68) 94 01/16/17 04:17 100 01/16/17 03:40 96.4 102 18 104/50 96 01/16/17 03:08 96.6 103 18 108/59 96 01/16/17 01:01 98.3 105 18 107/51 (69) 95 01/15/17 21:20 98.4 101 20 124/57 (79) 97 01/15/17 20:14 109 01/15/17 19:11 98.9 104 19 112/58 94 01/15/17 16:50 97.1 96 19 119/56 95 01/15/17 16:29 98.4 103 19 125/54 93 01/15/17 16:25 19 01/15/17 16:14 106 01/15/17 16:00 98.4 103 18 125/54 (77) 93 01/15/17 13:53 19 01/15/17 12:14 115 01/15/17 12:00 100.2 117 18 130/54 (79) 94 01/15/17 09:55 Room Air 01/16/17 01/16/17 01/16/17 06:59 14:59 22:59 Intake Total 420 ml Balance 420 ml Result Diagram: 01/15/17 0540 01/15/17 0540 Culture Results Microbiology Date/Time Source Procedure Growth Status 01/14/17 01:35 Blood Line Aerobic Blood Culture - Preliminary NO GROWTH IN 1 DAY Resulted 01/14/17 01:35 Blood Line Anaerobic Blood Culture - Preliminary NO GROWTH IN 1 DAY Resulted 01/14/17 00:25 Blood Line Aerobic Blood Culture - Preliminary NO GROWTH IN 1 DAY Resulted 01/14/17 00:25 Blood Line Anaerobic Blood Culture - Preliminary NO GROWTH IN 1 DAY Resulted Administered Medications Medications (Trade) Dose Ordered Sig/Emma Route PRN Reason Start Time Stop Time Status Last Admin Dose Admin Sodium Chloride (NS Flush) 2 ml UNSCH PRN IV FLUSH FLUSH AFTER USING IV ACCESS 12/25/16 23:00 12/30/16 04:59 Sodium Chloride (NS Flush) 2 ml BID IV FLUSH 12/26/16 09:00 01/13/17 10:42 Acetaminophen (Tylenol) 650 mg Q6H PRN PO FEVER>100.4 12/25/16 23:00 01/16/17 02:23 Benzonatate (Tessalon) 100 mg Q4H PRN PO COUGH 12/26/16 05:15 12/26/16 15:12 Diphenhydramine HCl (Benadryl) 25 mg Q4H PRN PO SEE LABEL COMMENTS 12/27/16 04:15 01/16/17 02:23 Acetaminophen (Tylenol) 650 mg Q4H PRN PO SEE LABEL COMMENTS 12/27/16 04:15 01/15/17 13:52 Mupirocin (Bactroban 2% Oint) 1 applic TID TOPICAL 12/27/16 14:15 01/16/17 07:58 Sodium Chloride (NS Flush) 5 ml DAILY IV FLUSH 12/30/16 09:00 01/13/17 10:42 Heparin Sodium (Porcine) (Heparin Central Flush) 500 units UNSCH PRN IV FLUSH SEE PROTOCOL TABLE 12/30/16 06:30 12/31/16 15:45 Allopurinol (Zyloprim) 200 mg DAILY PO 01/06/17 09:00 01/16/17 07:56 Hyoscyamine Sulfate (Levsin) 0.25 mg Q4H PRN PO CRAMPS 01/06/17 09:30 01/06/17 10:06 Sucralfate (Carafate Liq) 1 gm ACHS PO 01/09/17 16:00 01/16/17 05:23 Pantoprazole Sodium 80 mg/ Sodium Chloride 100 ml @ 10 mls/hr CONTINUOUS IV 01/11/17 16:00 01/15/17 18:22 Hydromorphone HCl (Dilaudid HR GENERALIST Inj) 6 mg UNSCH IV 01/11/17 15:15 01/15/17 16:25 HR GENERALIST Dosage Infused (Pha) 1 Q8HR OTHER 01/11/17 15:45 01/16/17 05:31 Ondansetron HCl (Zofran Inj) 8 mg Q8H PRN IV PUSH NAUSEA 01/11/17 17:15 Future hold 01/15/17 21:07 Hydromorphone HCl (Dilaudid Pf Inj) 2 mg Q4H PRN IV PUSH SEVERE BREAKTHROUGH PAIN 01/12/17 15:30 01/16/17 05:27 Piperacillin Sod/ Tazobactam Sod 100 ml @ 200 mls/hr Q6H IV 01/13/17 21:00 01/16/17 07:57 Fluconazole/ Sodium Chloride 200 ml @ 100 mls/hr Q24H IV 01/14/17 12:00 01/15/17 12:48 Nystatin (Mycostatin Liq) 5 ml QID SWISH-SWAL 01/14/17 13:00 01/16/17 07:56 Vancomycin HCl 2500 mg/Sodium Chloride 525 ml @ 250 mls/hr Q12H IV 01/14/17 21:00 01/15/17 23:22 Promethazine HCl (Phenergan Inj) 12.5 mg Q4H PRN IV-CENTRAL nausea 01/14/17 16:45 01/16/17 02:25 Potassium Chloride/Dextrose/ Sod Cl 1,000 ml @ 84 mls/hr [id number] IV 01/15/17 13:30 01/16/17 07:55 Objective Remarks GENERAL: Obese younger male, resting in bed in no acute distress SKIN: Warm and dry. HEAD: Normocephalic. EYES: No injection or drainage. NECK: Supple, trachea midline. CARDIOVASCULAR: Regular, mildly tachy rhythm RESPIRATORY: Breath sounds equal bilaterally. No accessory muscle use. GASTROINTESTINAL: Abdomen obese. Soft. Diffusely tender to deep palpation MUSCULOSKELETAL: No cyanosis NEURO: awake and alert, normal speech. moving all extremities. 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 3am. Transfuse 1 unit irr. platelets, 1 unit irr. PRBC's. 01/08: D9. abdominal pain persistent. 2 units pRBC 01/09: D10. 2 additional units pRBC ordered. 1 unit platelets ordered 01/10: D11. 2 units pRBC. 1 unit platelets. + stool hemoccult 01/12: D13: 2 units pRBC. 1 unit platelets. 01/13: D14: 1 unit platelets. BB working to obtain HLA matched platelets 01/14: D15. 2 units HLA matched platelets given. spoke with BB they will have two units HLA matched on hand at all times. EGD today. 01/15: D16: 1 unit platelets, 1 unit pRBC. swelling in neck and face, ?SVC syndrome. CT chest and CT neck ordered 01/16: D 17: 1 unit platelets, [address] chest and neck negative for SVC syndrome. Continue to monitor blood counts. 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 Patients with rearrangement of CBFB in AML may have a higher risk of COMMERCIAL BANKER involvement at diagnosis or at relapse than patients with other types of AML. Inversion 16 or t(16;16), with or without additional chromosome abnormalities, has been associated with complete remission and improved long-term survival. - MUGA scan shows normal EF and no wall motion abnormalities 12/30/2016 - Port placement by IR completed 12/31/16 - Induction chemotherapy started 12/31-- 7+3 regimen with Daunorubicin 90mg/m2 and Cytaribine 100mg/m2-- Dosing capped at BSA of 2 - CMV negative, HIV and Hep B and C negative (2) Neutropenia ICD Codes: D70.9 - Neutropenia, unspecified Status: Acute Plan: -- ID following -- On Zosyn +Vanco+ Fluconazole -- Bronchoscopy on 12/28= no growth. -- All BC since hospitalization = no growth (3) Abdominal pain ICD Codes: R10.9 - Unspecified abdominal pain Plan: -- Epigastric area pain--EGD, 01/14 showed thrush and distal esophageal ulcer as well as severe gastritis. -- Amylase, lipase WNL -- CT abdomen/ pelvis shows splenic infarcts; --CTA abdomen shows no mesenteric emboli --Abdominal U/S: shows no acute findings. enlarged liver and spleen. --GI following --on Protonix, Carafate, Zosyn, Vanco, Diflucan +stool hemoccult (4) Pancytopenia ICD Codes: D61.818 - Other pancytopenia Plan: - Check Fibrinogen every other day - Transfuse to keep platelets > 10 - Will need irradiated CMV negative blood products -- transfuse to keep Hb > 7 (5) GIB (gastrointestinal bleeding) ICD Codes: K92.2 - Gastrointestinal hemorrhage, unspecified Plan: --+ stool hemoccult on 01/09/17 --on Protonix + Carafate --EGD on 01/14 showed distal esophageal ulcer. --monitor serial H/H, transfuse as needed Assessment 26 y/o male with no major past medical history who was brought in for headache, confusion and cough and found to be pancytopenic and circulating blast cells. Bone marrow biopsy confirmed Acute Myeloid Leukemia: Attending Statement c/o diarrhea and Abd pain. day 17 Induction AML plat and PRBC Tx d/w pt and Dad. The exam, history, and the medical decision-making described in the above note were completed with the assistance of the mid-level provider. I reviewed and agree with the findings presented. I attest that I had a [id number] encounter with the patient on the same day, and personally performed and documented my assessment and findings in the medical record. Problem Qualifiers (1) Acute myelogenous leukemia: Qualified Codes: C92.00 - Acute myeloblastic leukemia, not having achieved remission (2) Neutropenia: Robina Cui Jan 16, 2017 09:56 Luz Marina Taylor MD Jan 16, 2017 18:40
[2017-01-16] MEDS: HYDROmorphone HCL PCA 6 MG/30 ML IV SCH (10:10)
[2017-01-16 10:55] LABS: HEMATOCRIT 22.9 % (39.0-51.0); MEAN CELL VOLUME 91.7 FL (80.0-100.0); MEAN CORPUSCULAR HEMOGLOBIN 30.4 PG (27.0-34.0); MEAN CORPUSCULAR HGB CONC 33.1 % (32.0-36.0); RED BLOOD COUNT 2.49 MIL/MM3 (4.50-5.90); RED CELL DISTRIBUTION WIDTH 14.7 % (11.6-17.2); WHITE BLOOD COUNT 0.3 TH/MM3 (4.0-11.0)
[2017-01-16 11:02] LABS: HEMO FLAGS AUTO DIFF; PLATELET COUNT 4 TH/MM3 (150-450)
[2017-01-16 11:05] LABS: APTT (PATIENT) 55.9 SEC (24.3-30.1); INTERNATIONAL NORMALIZED RATIO 2.1 RATIO; PROTHROMBIN TIME - PATIENT 23.4 SEC (9.8-11.6)
[2017-01-16] MEDS: FLUCONAZOLE 400 MG PREMIX BAG 200 ML IV SCH (12:00)
[2017-01-16 12:15] LABS: WBC DIFF SAMPLE 30
[2017-01-16 12:16] LABS: PLATELET ESTIMATE SMEAR RARE (NORMAL); PLATELET MORPHOLOGY NORMAL (NORMAL); ROULEAUX PRESENT (NORMAL); SCAN/DIFF FINAL DIFF MANUAL
[2017-01-16] MEDS: VANCOMYCIN INJ 2,500 MG in SODIUM CHLORID 0.9% 500 ML INJ 500 ML IV SCH (12:22)
--- NOTE | 2017-01-16 12:58 | HHI.PR ---
Subjective Remarks Patient reported abdominal pain is better, feeling fatigue, no fever or chills chest pain or short of breath Objective Vitals Vital Signs Date Time Temp Pulse Resp B/P (MAP) Pulse Ox O2 Delivery O2 Flow Rate FiO2 01/16/17 10:10 18 01/16/17 09:06 Room Air 01/16/17 07:50 96.0 101 20 109/51 (70) 92 01/16/17 05:31 16 01/16/17 05:26 96.4 102 18 104/50 (68) 94 01/16/17 04:17 100 01/16/17 03:40 96.4 102 18 104/50 96 01/16/17 03:08 96.6 103 18 108/59 96 01/16/17 01:01 98.3 105 18 107/51 (69) 95 01/15/17 21:20 98.4 101 20 124/57 (79) 97 01/15/17 20:14 109 01/15/17 19:11 98.9 104 19 112/58 94 01/15/17 16:50 97.1 96 19 119/56 95 01/15/17 16:29 98.4 103 19 125/54 93 01/15/17 16:25 19 01/15/17 16:14 106 01/15/17 16:00 98.4 103 18 125/54 (77) 93 01/15/17 13:53 19 I/O 01/15/17 01/15/17 01/15/17 01/16/17 01/16/17 01/16/17 07:00 15:00 23:00 07:00 15:00 23:00 Intake Total 1584 ml 240 ml 420 ml Output Total 1000 ml Balance -1000 ml 1584 ml 240 ml 420 ml Intake Oral 600 ml IV Total 984 ml Packed Cells 400 ml Platelets 240 ml Blood Product IV Normal Saline Flush 20 ml Output Urine Total 1000 ml # Voids 1 1 # Bowel Movements 1 1 Result Diagram: 01/16/17 1030 01/15/17 0540 Objective Remarks GENERAL: This is a well-nourished, well-developed patient, in no apparent distress. SKIN: No rashes, warm and dry HEAD: Atraumatic. Normocephalic. EYES: Pupils equal round and reactive. Extraocular motions intact. No scleral icterus. ENT: Nose without bleeding, or drainage, Airway patent. NECK: Trachea midline. Supple CARDIOVASCULAR: Regular rate and rhythm without murmurs, gallops, or rubs. RESPIRATORY: Fair air entry bilaterally. No wheezes, rales, or rhonchi. GASTROINTESTINAL: Abdomen soft, non-tender, nondistended. Positive bowel sounds MUSCULOSKELETAL: Extremities without clubbing, cyanosis, or edema. Pedal pulses appreciated NEUROLOGICAL: Awake and alert. Moves all extremity. Normal speech.no focal neurological deficit Procedures 12/31 [id number] placement A/P Problem List: (1) SIRS (systemic inflammatory response syndrome) ICD Code: R65.10 - Systemic inflammatory response syndrome (SIRS) of non- infectious origin without acute organ dysfunction Status: Acute (2) GABRIELA (acute kidney injury) ICD Code: N17.9 - Acute kidney failure, unspecified Status: Acute (3) Thrombocytopenia ICD Code: D69.6 - Thrombocytopenia, unspecified Status: Acute (4) Lymphocytosis ICD Code: D72.820 - Lymphocytosis (symptomatic) Status: Acute (5) Anemia ICD Code: D64.9 - Anemia, unspecified Status: Acute Assessment and Plan 01/14: Temperature is 100, increase heart rate 116-123, platelet count is 5 yesterday, CBC 0.3, continue monitoring, CBC for today pending repeat CBC in a.m. EGD 01/14>gasteritis and distal esoph ulcer 01/16:1 pack of weight lifting one pack of packed red blood cells as being transfused today, continue following with hematology oncology, GI signed off, hypokalemia replaced A/P: Mr. Duarte is 26 yo, with no significant past medical history. -- Neutropenic fever: Continue monitoring for fever per IDs recommendations. Afebrile. Blood cultures show no growth in 5 days x 2. CSF cultures and BAL shows no growth. 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 Patients with rearrangement of CBFB in AML may have a higher risk of PROFESSIONAL EMPLOYER CONSULTANT involvement at diagnosis or at relapse than patients with other types of AML. Inversion 16 or t(16;16), with or without additional chromosome abnormalities, has been associated with complete remission and improved long-term survival. MUGA scan shows normal EF and no wall motion abnormalities 12/30/2016 Port placement by IR completed 12/31/16 - CMV negative, HIV and Hep B and C negative --Abdominal pain - splenic infarcts likely contributing. HIDA shows no significant abnormalities. CTA Abd showing no signs of occlusive atherosclerosis , C.diff negative x 2. On IV Dilaudid for this. Initial stool occults were negative in late January, 01/09 hemoccult positive. Unable to tolerate EGD at this time due to low platelets. agree w/ carafate, protonix, and abx. H.PYLORI ANTIGEN pending. Started on Zosyn empirically for possible neutropenic enterocolitis per hem/onc. MRI negative for acute findings. Splenic hemangiomas noted. --Diarrhea - stool studies pending. Lactobacillus added to regimen. C diff negative x 2. 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 Doppler studies negative for DVT. PT/OT eval/tx. IS and acapella use. Kevin Montiel MD Jan 16, 2017 12:58
[2017-01-16] MEDS ORDERED: SODIUM CHLOR 0.9% 250 ML INJ 250 ML IV ONE (13:00)
[2017-01-16] MEDS: ONDANSETRON HCL 4 MG/2 ML VIAL IV PUSH PRN ×2 (14:08→22:52)
[2017-01-16 21:49] LABS: HEMATOCRIT 22.4 % (39.0-51.0); MEAN CELL VOLUME 89.2 FL (80.0-100.0); MEAN CORPUSCULAR HEMOGLOBIN 30.6 PG (27.0-34.0); MEAN CORPUSCULAR HGB CONC 34.3 % (32.0-36.0); RED BLOOD COUNT 2.51 MIL/MM3 (4.50-5.90); RED CELL DISTRIBUTION WIDTH 13.8 % (11.6-17.2); WHITE BLOOD COUNT 0.3 TH/MM3 (4.0-11.0)
[2017-01-16 22:08] LABS: REVIEW FLAG FINAL
[2017-01-16 22:11] LABS: PLATELET COUNT 8 TH/MM3 (150-450)
[2017-01-16 22:18] LABS: BICARBONATE 32.3 MEQ/L (21.0-32.0); INDIRECT BILIRUBIN 0.6 MG/DL (0.0-0.8); MAGNESIUM 2.2 MG/DL (1.5-2.5); TOTAL BILIRUBIN ADULT 1.5 MG/DL (0.2-1.0)
[2017-01-16 22:26] LABS: POTASSIUM 2.9 MEQ/L (3.5-5.1)
[2017-01-16 22:30] LABS: CALCIUM-PROTEIN CORRECTED 7.7 MG/DL (8.5-10.1)
[2017-01-16] MEDS: VANCOMYCIN INJ 2,000 MG in SODIUM CHLORID 0.9% 500 ML INJ 500 ML IV SCH (22:52)
[2017-01-17] VITALS (16 sets, daily range): BP systolic 120–142; BP diastolic 55–78; PULSE 85–106; RESP 16–21; TEMP 96.1–98.3; O2SAT 91–97
[2017-01-17] MEDS: HYDROmorphone HCL PCA 6 MG/30 ML IV SCH ×2 (00:22→14:19)
[2017-01-17] MEDS: POTASSIUM CHLOR 20 MEQ PREMIX 100 ML IV SCH ×4 (01:44→21:58)
[2017-01-17] MEDS: D5-NS + KCL 20 MEQ INJ 1,000 ML IV SCH (01:44)
[2017-01-17] MEDS: HYDROmorphone HCL PF 2 MG/ML VIAL IV PUSH PRN ×5 (03:40→22:05)
[2017-01-17] MEDS: PIPERACIL-TAZO 4.5 GM PREMIX 100 ML IV SCH ×4 (04:56→21:58)
[2017-01-17] MEDS: PCA - TOTAL MG DILAUDID DELIVERED PER SHIFT OTHER SCH ×3 (06:00→22:00)
[2017-01-17] MEDS: SUCRALFATE 1 GM/10 ML CUP PO SCH ×4 (06:29→20:20)
[2017-01-17] MEDS: ONDANSETRON HCL 4 MG/2 ML VIAL IV PUSH PRN ×3 (06:30→22:10)
[2017-01-17] MEDS: ALLOPURINOL 100 MG TAB PO SCH (08:15)
[2017-01-17] MEDS: NYSTATIN SUSP 500,000 U/5 ML CUP SWISH-SWAL SCH ×4 (08:15→20:20)
[2017-01-17] MEDS ORDERED: POTASSIUM CHLOR 20 MEQ PREMIX 100 ML ONE (08:25)
[2017-01-17] MEDS: Hickman Catheter Daily NS Lock Flush IV FLUSH SCH (09:00)
[2017-01-17] MEDS: SODIUM CHLORIDE 0.9% FLUSH 10 ML FLUSH IV FLUSH SCH ×2 (09:00→20:26)
[2017-01-17] MEDS: MUPIROCIN 2% OINT 22 GM TUBE TOPICAL SCH ×3 (09:00→18:00)
--- NOTE | 2017-01-17 10:12 | PD.ONC.PN ---
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 Objective Data Date Time Temp Pulse Resp B/P (MAP) Pulse Ox O2 Delivery O2 Flow Rate FiO2 01/17/17 08:36 Room Air 01/17/17 07:50 96.3 99 20 125/57 (79) 91 01/17/17 06:00 16 01/17/17 06:00 95 01/17/17 05:00 98.3 96 16 142/60 (87) 92 01/17/17 00:37 97.0 103 18 128/60 94 01/17/17 00:22 18 01/17/17 00:00 104 01/17/17 00:00 97.3 106 20 129/60 (83) 96 01/16/17 22:00 18 01/16/17 20:40 96 Room Air 01/16/17 20:00 96.3 99 20 130/63 (85) 95 01/16/17 20:00 102 01/16/17 17:32 97.9 99 18 130/59 92 01/16/17 15:50 99.4 104 18 143/63 (89) 92 01/16/17 14:59 99.4 104 18 143/63 92 01/16/17 14:00 18 01/16/17 11:50 97.4 107 20 118/55 (76) 95 01/16/17 10:10 18 01/17/17 01/17/17 01/17/17 07:00 15:00 23:00 Intake Total 343 ml Balance 343 ml Result Diagram: 01/16/17213101/16/172131 Laboratory Results Laboratory Tests Test 01/16/17 10:30 01/16/17 21:32 White Blood Count 0.3 TH/MM3 0.3 TH/MM3 Red Blood Count 2.49 MIL/MM3 2.51 MIL/MM3 Hemoglobin 7.6 GM/DL 7.7 GM/DL Hematocrit 22.9 % 22.4 % Mean Corpuscular Volume 91.7 FL 89.2 FL Mean Corpuscular Hemoglobin 30.4 PG 30.6 PG Mean Corpuscular Hemoglobin Concent 33.1 % 34.3 % Red Cell Distribution Width 14.7 % 13.8 % Platelet Count 4 TH/MM3 8 TH/MM3 Mean Platelet Volume 8.7 FL 7.5 FL CBC Comment AUTO DIFF Differential Total Cells Counted 30 Lymphocytes % 97 % Monocytes % 3 % Neutrophils # (Manual) 0.0 TH/MM3 Differential Comment FINAL DIFF MANUAL Platelet Estimate RARE Platelet Morphology Comment NORMAL Rouleau PRESENT Prothrombin Time 23.4 SEC Prothromb Time International Ratio 2.1 RATIO Activated Partial Thromboplast Time 55.9 SEC Fibrinogen 328 mg/dL Vancomycin Level Trough 5.8 MCG/ML Blood Urea Nitrogen 17 MG/DL Creatinine 0.68 MG/DL Random Glucose 96 MG/DL Total Protein 4.1 GM/DL Albumin 1.5 GM/DL Calcium Level 6.2 MG/DL Phosphorus Level 1.7 MG/DL Magnesium Level 2.2 MG/DL Alkaline Phosphatase 67 U/L Aspartate Amino Transf (AST/SGOT) 5 U/L Alanine Aminotransferase (ALT/SGPT) 19 U/L Total Bilirubin 1.5 MG/DL Direct Bilirubin 0.9 MG/DL Sodium Level 136 MEQ/L Potassium Level 2.9 MEQ/L Chloride Level 99 MEQ/L Carbon Dioxide Level 32.3 MEQ/L Anion Gap 5 MEQ/L Estimat Glomerular Filtration Rate 143 ML/MIN Protein Corrected Calcium 7.7 MG/DL Indirect Bilirubin 0.6 MG/DL Administered Medications Medications (Trade) Dose Ordered Sig/Emma Route PRN Reason Start Time Stop Time Status Last Admin Dose Admin Sodium Chloride (NS Flush) 2 ml UNSCH PRN IV FLUSH FLUSH AFTER USING IV ACCESS 12/25/16 23:00 12/30/16 04:59 Sodium Chloride (NS Flush) 2 ml BID IV FLUSH 12/26/16 09:00 01/16/17 20:37 Acetaminophen (Tylenol) 650 mg Q6H PRN PO FEVER>100.4 12/25/16 23:00 01/16/17 02:23 Benzonatate (Tessalon) 100 mg Q4H PRN PO COUGH 12/26/16 05:15 12/26/16 15:12 Mupirocin (Bactroban 2% Oint) 1 applic TID TOPICAL 12/27/16 14:15 01/16/17 16:51 Sodium Chloride (NS Flush) 5 ml DAILY IV FLUSH 12/30/16 09:00 01/13/17 10:42 Heparin Sodium (Porcine) (Heparin Central Flush) 500 units UNSCH PRN IV FLUSH SEE PROTOCOL TABLE 12/30/16 06:30 12/31/16 15:45 Allopurinol (Zyloprim) 200 mg DAILY PO 01/06/17 09:00 01/17/17 08:15 Hyoscyamine Sulfate (Levsin) 0.25 mg Q4H PRN PO CRAMPS 01/06/17 09:30 01/06/17 10:06 Sucralfate (Carafate Liq) 1 gm ACHS PO 01/09/17 16:00 01/17/17 06:29 Pantoprazole Sodium 80 mg/ Sodium Chloride 100 ml @ 10 mls/hr CONTINUOUS IV 01/11/17 16:00 01/15/17 18:22 Hydromorphone HCl (Dilaudid CHIEF OPERATOR REFORMER Inj) 6 mg UNSCH IV 01/11/17 15:15 01/17/17 00:22 CHIEF OPERATOR REFORMER Dosage Infused (Pha) 1 Q8HR OTHER 01/11/17 15:45 01/17/17 06:00 Ondansetron HCl (Zofran Inj) 8 mg Q8H PRN IV PUSH NAUSEA 01/11/17 17:15 Future hold 01/17/17 06:30 Hydromorphone HCl (Dilaudid Pf Inj) 2 mg Q4H PRN IV PUSH SEVERE BREAKTHROUGH PAIN 01/12/17 15:30 01/17/17 08:16 Piperacillin Sod/ Tazobactam Sod 100 ml @ 200 mls/hr Q6H IV 01/13/17 21:00 01/17/17 04:56 Fluconazole/ Sodium Chloride 200 ml @ 100 mls/hr Q24H IV 01/14/17 12:00 01/16/17 12:00 Nystatin (Mycostatin Liq) 5 ml QID SWISH-SWAL 01/14/17 13:00 01/17/17 08:15 Promethazine HCl (Phenergan Inj) 12.5 mg Q4H PRN IV-CENTRAL nausea 01/14/17 16:45 01/16/17 02:25 Acetaminophen (Tylenol) 650 mg Q4H PRN PO SEE LABEL COMMENTS 01/16/17 13:00 01/16/17 23:44 Diphenhydramine HCl (Benadryl) 25 mg Q4H PRN PO SEE LABEL COMMENTS 01/16/17 13:00 01/16/17 23:44 Vancomycin HCl 2000 mg/Sodium Chloride 520 ml @ 250 mls/hr Q8H IV 01/16/17 20:00 01/16/17 22:52 Objective Remarks GENERAL: Obese younger male, resting in bed in no acute distress SKIN: Warm and dry. HEAD: Normocephalic. EYES: No injection or drainage. NECK: Supple, trachea midline. CARDIOVASCULAR: Regular, mildly tachy rhythm RESPIRATORY: Breath sounds equal bilaterally. No accessory muscle use. GASTROINTESTINAL: Abdomen obese. Soft. Diffusely tender to deep palpation MUSCULOSKELETAL: No cyanosis NEURO: awake and alert, normal speech. moving all extremities. 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 3am. Transfuse 1 unit irr. platelets, 1 unit irr. PRBC's. 01/08: D9. abdominal pain persistent. 2 units pRBC 01/09: D10. 2 additional units pRBC ordered. 1 unit platelets ordered 01/10: D11. 2 units pRBC. 1 unit platelets. + stool hemoccult 01/12: D13: 2 units pRBC. 1 unit platelets. 01/13: D14: 1 unit platelets. BB working to obtain HLA matched platelets 01/14: D15. 2 units HLA matched platelets given. spoke with BB they will have two units HLA matched on hand at all times. EGD today. 01/15: D16: 1 unit platelets, 1 unit pRBC. swelling in neck and face, ?SVC syndrome. CT chest and CT neck ordered 01/16: D 17: 1 unit platelets, [address] chest and neck negative for SVC syndrome. Continue to monitor blood counts. 01/17 D18: Labs pending. Start Amicar 1gm Q6h for overnight coughing up trav blood. Will transfuse for platelets less than 10k and Hgb less than 7.0. 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 Patients with rearrangement of CBFB in AML may have a higher risk of PRECISION AGRICULTURE SPECIALIST involvement at diagnosis or at relapse than patients with other types of AML. Inversion 16 or t(16;16), with or without additional chromosome abnormalities, has been associated with complete remission and improved long-term survival. - MUGA scan shows normal EF and no wall motion abnormalities 12/30/2016 - Port placement by IR completed 12/31/16 - Induction chemotherapy started 12/31-- 7+3 regimen with Daunorubicin 90mg/m2 and Cytaribine 100mg/m2-- Dosing capped at BSA of 2 - CMV negative, HIV and Hep B and C negative (2) Neutropenia ICD Codes: D70.9 - Neutropenia, unspecified Status: Acute Plan: -- ID following -- On Zosyn +Vanco+ Fluconazole -- Bronchoscopy on 12/28= no growth. -- All BC since hospitalization = no growth (3) Abdominal pain ICD Codes: R10.9 - Unspecified abdominal pain Plan: -- Epigastric area pain--EGD, 01/14 showed thrush and distal esophageal ulcer as well as severe gastritis. -- Amylase, lipase WNL -- CT abdomen/ pelvis shows splenic infarcts; --CTA abdomen shows no mesenteric emboli --Abdominal U/S: shows no acute findings. enlarged liver and spleen. --GI following --on Protonix, Carafate, Zosyn, Vanco, Diflucan +stool hemoccult (4) Pancytopenia ICD Codes: D61.818 - Other pancytopenia Plan: - Check Fibrinogen every other day - Transfuse to keep platelets > 10 - Will need irradiated CMV negative blood products -- transfuse to keep Hb > 7 (5) GIB (gastrointestinal bleeding) ICD Codes: K92.2 - Gastrointestinal hemorrhage, unspecified Plan: --+ stool hemoccult on 01/09/17 --on Protonix + Carafate --EGD on 01/14 showed distal esophageal ulcer. --monitor serial H/H, transfuse as needed Assessment 26 y/o male with no major past medical history who was brought in for headache, confusion and cough and found to be pancytopenic and circulating blast cells. Bone marrow biopsy confirmed Acute Myeloid Leukemia: Attending Statement c/o generalized pain and hemoptysis. Plat are low. Refractory to [place]. await HLA match plat. Start Amicar. 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 D/W pt and Dad. D/W RN The exam, history, and the medical decision-making described in the above note were completed with the assistance of the mid-level provider. I reviewed and agree with the findings presented. I attest that I had a [id number] encounter with the patient on the same day, and personally performed and documented my assessment and findings in the medical record. Problem Qualifiers (1) Acute myelogenous leukemia: Qualified Codes: C92.00 - Acute myeloblastic leukemia, not having achieved remission (2) Neutropenia: Robina Cui Jan 17, 2017 10:12 Luz Marina Taylor MD Jan 17, 2017 10:56
[2017-01-17 11:30] LABS: MEAN CELL VOLUME 89.2 FL (80.0-100.0); MEAN CORPUSCULAR HEMOGLOBIN 30.9 PG (27.0-34.0); MEAN CORPUSCULAR HGB CONC 34.6 % (32.0-36.0); RED BLOOD COUNT 2.34 MIL/MM3 (4.50-5.90); RED CELL DISTRIBUTION WIDTH 14.1 % (11.6-17.2); WHITE BLOOD COUNT 0.3 TH/MM3 (4.0-11.0)
[2017-01-17 11:32] LABS: HEMO FLAGS AUTO DIFF
[2017-01-17 11:37] LABS: HEMATOCRIT 20.9 % (39.0-51.0); PLATELET COUNT 7 TH/MM3 (150-450)
[2017-01-17 11:43] LABS: APTT (PATIENT) 44.1 SEC (24.3-30.1); INTERNATIONAL NORMALIZED RATIO 1.8 RATIO; PROTHROMBIN TIME - PATIENT 20.7 SEC (9.8-11.6)
[2017-01-17] MEDS ORDERED: PHARMACY ORDERED LAB ONE (11:45)
[2017-01-17 12:14] LABS: BICARBONATE 29.9 MEQ/L (21.0-32.0); INDIRECT BILIRUBIN 0.3 MG/DL (0.0-0.8); MAGNESIUM 2.2 MG/DL (1.5-2.5); POTASSIUM 3.1 MEQ/L (3.5-5.1); TOTAL BILIRUBIN ADULT 0.8 MG/DL (0.2-1.0)
[2017-01-17] MEDS: AMINOCAPROIC ACID 500 MG TAB PO SCH ×2 (12:25→17:20)
[2017-01-17] MEDS: FLUCONAZOLE 400 MG PREMIX BAG 200 ML IV SCH (12:26)
[2017-01-17] MEDS: D5-NS + KCL 40 MEQ INJ 1,000 ML IV SCH (12:44)
[2017-01-17] MEDS ORDERED: POTASSIUM PHOSPHATE MONOBASIC 500 MG TAB PO ONE (13:00)
[2017-01-17] MEDS ORDERED: SODIUM CHLOR 0.9% 250 ML INJ 250 ML IV ONE (13:00)
[2017-01-17 13:02] LABS: CALCIUM-PROTEIN CORRECTED 8.2 MG/DL (8.5-10.1)
[2017-01-17 13:19] LABS: BLASTS 2 % (0-0); POLYS (SEG NEUTROPHILS) 10 % (16-70); WBC DIFF SAMPLE 50
[2017-01-17 13:20] LABS: PLATELET ESTIMATE SMEAR RARE (NORMAL); PLATELET MORPHOLOGY NORMAL (NORMAL); SCAN/DIFF FINAL DIFF MANUAL
[2017-01-17] MEDS: diphenhydrAMINE HCL 25 MG CAP PO PRN (14:20)
[2017-01-17] MEDS: ACETAMINOPHEN 325 MG TAB PO PRN (14:20)
[2017-01-17] MEDS: PANTOPRAZOLE INJ 80 MG in SODIUM CHLORIDE 0.9% INJ 100 ML IV SCH (14:33)
[2017-01-17] MEDS ORDERED: CALCIUM GLUCONATE INJ 1 GM in SODIUM CHLORIDE 0.9% INJ 100 ML IV ONE (15:45)
[2017-01-17] MEDS: VANCOMYCIN INJ 2,000 MG in SODIUM CHLORID 0.9% 500 ML INJ 500 ML IV SCH ×2 (16:00→20:00)
--- NOTE | 2017-01-17 16:42 | HHI.PR ---
Subjective Remarks Patient stated he had episodes of hemoptysis yesterday but he's been good without any bleeding today, platelet is 7, status post multiple PRBC and platelet transfusion Objective Vitals Vital Signs Date Time Temp Pulse Resp B/P (MAP) Pulse Ox O2 Delivery O2 Flow Rate FiO2 01/17/17 16:33 97.9 89 20 130/60 (83) 95 01/17/17 15:23 98.0 85 16 132/70 97 01/17/17 14:58 98.0 87 16 120/55 97 01/17/17 14:19 16 01/17/17 14:00 16 01/17/17 12:57 98.2 97 21 137/63 (87) 93 01/17/17 10:27 92 01/17/17 08:36 Room Air 01/17/17 07:50 96.3 99 20 125/57 (79) 91 01/17/17 06:00 16 01/17/17 06:00 95 01/17/17 05:00 98.3 96 16 142/60 (87) 92 01/17/17 00:37 97.0 103 18 128/60 94 01/17/17 00:22 18 01/17/17 00:00 104 01/17/17 00:00 97.3 106 20 129/60 (83) 96 01/16/17 22:00 18 01/16/17 20:40 96 Room Air 01/16/17 20:00 96.3 99 20 130/63 (85) 95 01/16/17 20:00 102 01/16/17 17:32 97.9 99 18 130/59 92 I/O 01/16/17 01/16/17 01/16/17 01/17/17 01/17/17 01/17/17 06:59 14:59 22:59 06:59 14:59 22:59 Intake Total 420 ml 400 ml 593 ml 343 ml 1680 ml 700 ml Output Total 900 ml Balance 420 ml 400 ml 593 ml 343 ml 780 ml 700 ml Intake Oral 400 ml 100 ml 1080 ml IV Total 600 ml 700 ml Packed Cells 400 ml Platelets 573 ml 243 ml Blood Product IV Normal Saline Flush 20 ml 20 ml Output Urine Total 900 ml # Voids 3 1 2 # Bowel Movements 1 1 Result Diagram: 01/17/17 1100 01/17/17 1100 Objective Remarks GENERAL: This is a well-nourished, well-developed patient, in no apparent distress. SKIN: No rashes, warm and dry HEAD: Atraumatic. Normocephalic. EYES: Pupils equal round and reactive. Extraocular motions intact. No scleral icterus. ENT: Nose without bleeding, or drainage, Airway patent. NECK: Trachea midline. Supple CARDIOVASCULAR: Regular rate and rhythm without murmurs, gallops, or rubs. RESPIRATORY: Fair air entry bilaterally. No wheezes, rales, or rhonchi. GASTROINTESTINAL: Abdomen soft, non-tender, nondistended. Positive bowel sounds MUSCULOSKELETAL: Extremities without clubbing, cyanosis, or edema. Pedal pulses appreciated NEUROLOGICAL: Awake and alert. Moves all extremity. Normal speech.no focal neurological deficit Procedures 12/31 [id number] placement A/P Problem List: (1) SIRS (systemic inflammatory response syndrome) ICD Code: R65.10 - Systemic inflammatory response syndrome (SIRS) of non- infectious origin without acute organ dysfunction Status: Acute (2) GABRIELA (acute kidney injury) ICD Code: N17.9 - Acute kidney failure, unspecified Status: Acute (3) Thrombocytopenia ICD Code: D69.6 - Thrombocytopenia, unspecified Status: Acute (4) Lymphocytosis ICD Code: D72.820 - Lymphocytosis (symptomatic) Status: Acute (5) Anemia ICD Code: D64.9 - Anemia, unspecified Status: Acute Assessment and Plan 01/14: Temperature is 100, increase heart rate 116-123, platelet count is 5 yesterday, CBC 0.3, continue monitoring, CBC for today pending repeat CBC in a.m. EGD 01/14>gasteritis and distal esoph ulcer 01/16:1 pack of weight lifting one pack of packed red blood cells as being transfused today, continue following with hematology oncology, GI signed off, hypokalemia replaced 01/17: Platelet count is 7 today, hemoglobin 7.2, hematocrit 20.9, CBC in a.m., transfusion as needed, hypokalemia> replete and repeat in a.m. A/P: Mr. Duarte is 26 yo, with no significant past medical history. -- Neutropenic fever: Continue monitoring for fever per IDs recommendations. Afebrile. Blood cultures show no growth in 5 days x 2. CSF cultures and BAL shows no growth. 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 Patients with rearrangement of CBFB in AML may have a higher risk of MOLDER TRIMMER involvement at diagnosis or at relapse than patients with other types of AML. Inversion 16 or t(16;16), with or without additional chromosome abnormalities, has been associated with complete remission and improved long-term survival. MUGA scan shows normal EF and no wall motion abnormalities 12/30/2016 Port placement by IR completed 12/31/16 - CMV negative, HIV and Hep B and C negative --Abdominal pain - splenic infarcts likely contributing. HIDA shows no significant abnormalities. CTA Abd showing no signs of occlusive atherosclerosis , C.diff negative x 2. On IV Dilaudid for this. Initial stool occults were negative in late January, 01/09 hemoccult positive. carafate, protonix, and abx. H.PYLORI ANTIGEN . Started on Zosyn empirically for possible neutropenic enterocolitis per hem/onc. MRI negative for acute findings. Splenic hemangiomas noted. --Diarrhea - stool studies pending. Lactobacillus added to regimen. C diff negative x 2. 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 Doppler studies negative for DVT. PT/OT eval/tx. IS and acapella use. Kevin Montiel MD Jan 17, 2017 16:42
[2017-01-17 20:00] LABS: ALKALINE PHOSPHATASE 62 U/L (45-117); ALT (GPT) 20 U/L (12-78); ANION GAP 7 MEQ/L (5-15); AST (GOT) 3 U/L (15-37); BICARBONATE 31.3 MEQ/L (21.0-32.0); BLOOD UREA NITROGEN 14 MG/DL (7-18); CHLORIDE 98 MEQ/L (98-107); GLOMERULAR FILTRATION RATE 159 ML/MIN (>89); SODIUM (NA) 136 MEQ/L (136-145); TOTAL BILIRUBIN ADULT 0.8 MG/DL (0.2-1.0)
[2017-01-17 20:06] LABS: POTASSIUM 2.9 MEQ/L (3.5-5.1)
[2017-01-18] VITALS (17 sets, daily range): BP systolic 128–144; BP diastolic 53–97; PULSE 86–116; RESP 16–20; TEMP 96.1–98.3; O2SAT 93–99
[2017-01-18] MEDS: POTASSIUM CHLOR 20 MEQ PREMIX 100 ML IV SCH ×3 (00:33→12:22)
[2017-01-18] MEDS: AMINOCAPROIC ACID 500 MG TAB PO SCH ×5 (00:40→23:27)
[2017-01-18] MEDS: HYDROmorphone HCL PF 2 MG/ML VIAL IV PUSH PRN ×5 (02:47→21:40)
[2017-01-18] MEDS: PIPERACIL-TAZO 4.5 GM PREMIX 100 ML IV SCH ×4 (02:47→21:40)
[2017-01-18 03:52] LABS: WHITE BLOOD COUNT 0.6 TH/MM3 (4.0-11.0)
[2017-01-18 03:54] LABS: MEAN CELL VOLUME 89.4 FL (80.0-100.0); RED BLOOD COUNT 2.25 MIL/MM3 (4.50-5.90)
[2017-01-18 03:55] LABS: MEAN CORPUSCULAR HEMOGLOBIN 30.8 PG (27.0-34.0); MEAN CORPUSCULAR HGB CONC 34.5 % (32.0-36.0); REVIEW FLAG FINAL
[2017-01-18 03:59] LABS: HEMATOCRIT 20.1 % (39.0-51.0); PLATELET COUNT 3 TH/MM3 (150-450)
[2017-01-18] MEDS: VANCOMYCIN INJ 2,000 MG in SODIUM CHLORID 0.9% 500 ML INJ 500 ML IV SCH ×3 (04:50→20:20)
[2017-01-18] MEDS: ACETAMINOPHEN 325 MG TAB PO PRN ×2 (04:53→10:31)
[2017-01-18] MEDS ORDERED: diphenhydrAMINE HCL 25 MG CAP PO PRN (05:00)
[2017-01-18] MEDS: PCA - TOTAL MG DILAUDID DELIVERED PER SHIFT OTHER SCH ×3 (05:50→22:33)
[2017-01-18] MEDS: SUCRALFATE 1 GM/10 ML CUP PO SCH ×4 (05:53→20:20)
[2017-01-18] MEDS: NYSTAT/DIPHENHY/LIDO MOUTHWASH (Adult) 120ML SWISH-SWAL PRN (06:14)
[2017-01-18] MEDS: ALLOPURINOL 100 MG TAB PO SCH (07:51)
[2017-01-18] MEDS: NYSTATIN SUSP 500,000 U/5 ML CUP SWISH-SWAL SCH ×4 (07:52→20:20)
[2017-01-18] MEDS: ONDANSETRON HCL 4 MG/2 ML VIAL IV PUSH PRN ×2 (07:52→17:42)
[2017-01-18] MEDS: Hickman Catheter Daily NS Lock Flush IV FLUSH SCH (07:53)
[2017-01-18] MEDS: MUPIROCIN 2% OINT 22 GM TUBE TOPICAL SCH ×3 (07:54→18:00)
[2017-01-18] MEDS: SODIUM CHLORIDE 0.9% FLUSH 10 ML FLUSH IV FLUSH SCH ×2 (07:54→20:20)
[2017-01-18] MEDS ORDERED: POTASSIUM CHLOR 20 MEQ PREMIX 100 ML ONE ×2 (09:38→12:15)
[2017-01-18] MEDS: diphenhydrAMINE HCL 25 MG CAP PO PRN (10:30)
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
[2017-01-18] MEDS: FLUCONAZOLE 400 MG PREMIX BAG 200 ML IV SCH (12:25)
--- NOTE | 2017-01-18 13:53 | HHI.PR ---
Subjective Remarks Follow up on AML crisis Hemoglobin and platelet still decreasing, transfusion and process ordered by oncology Patient denied fever chills or diarrhea, he coughs white phlegm Objective Vitals Vital Signs Date Time Temp Pulse Resp B/P (MAP) Pulse Ox O2 Delivery O2 Flow Rate FiO2 01/18/17 13:18 96.9 95 16 130/53 97 01/18/17 12:33 90 01/18/17 11:27 97.9 93 16 131/97 97 01/18/17 11:03 94 01/18/17 10:59 97.7 92 16 134/63 96 01/18/17 08:09 92 01/18/17 08:00 98.1 88 16 128/60 (82) 93 01/18/17 07:52 Room Air 01/18/17 06:00 96.1 95 16 132/61 97 01/18/17 05:50 16 01/18/17 05:43 96.6 94 16 144/63 99 01/18/17 04:09 101 01/18/17 04:00 96.1 91 20 135/62 (86) 93 01/18/17 00:00 96.2 86 20 128/54 (78) 98 01/18/17 00:00 91 01/17/17 22:00 92 01/17/17 22:00 17 01/17/17 20:40 97 Room Air 01/17/17 20:00 96.1 90 18 135/58 (83) 97 01/17/17 17:59 98.0 87 16 122/78 97 01/17/17 16:33 97.9 89 20 130/60 (83) 95 01/17/17 15:23 98.0 85 16 132/70 97 01/17/17 15:19 90 01/17/17 14:58 98.0 87 16 120/55 97 01/17/17 14:19 16 01/17/17 14:00 16 I/O 01/17/17 01/17/17 01/17/17 01/18/17 01/18/17 01/18/17 07:00 15:00 23:00 07:00 15:00 23:00 Intake Total 343 ml 1680 ml 1384 ml 100 ml 911 ml Output Total 900 ml 200 ml 1000 ml 1000 ml Balance 343 ml 780 ml 1184 ml -900 ml -89 ml Intake Oral 100 ml 1080 ml 240 ml 100 ml IV Total 600 ml 800 ml 200 ml Packed Cells 400 ml Platelets 243 ml 344 ml 241 ml Blood Product IV Normal Saline Flush 70 ml Output Urine Total 900 ml 200 ml 1000 ml 1000 ml # Voids 2 Result Diagram: 01/18/17 0105 01/17/17 1901 Objective Remarks GENERAL: This is a well-nourished, well-developed patient, in no apparent distress. SKIN: No rashes, warm and dry HEAD: Atraumatic. Normocephalic. EYES: Pupils equal round and reactive. Extraocular motions intact. No scleral icterus. ENT: Nose without bleeding, or drainage, Airway patent. NECK: Trachea midline. Supple CARDIOVASCULAR: Regular rate and rhythm without murmurs, gallops, or rubs. RESPIRATORY: Fair air entry bilaterally. No wheezes, rales, or rhonchi. GASTROINTESTINAL: Abdomen soft, non-tender, nondistended. Positive bowel sounds MUSCULOSKELETAL: Extremities without clubbing, cyanosis, or edema. Pedal pulses appreciated NEUROLOGICAL: Awake and alert. Moves all extremity. Normal speech.no focal neurological deficit Procedures 12/31 [id number] placement A/P Problem List: (1) SIRS (systemic inflammatory response syndrome) ICD Code: R65.10 - Systemic inflammatory response syndrome (SIRS) of non- infectious origin without acute organ dysfunction Status: Acute (2) GABRIELA (acute kidney injury) ICD Code: N17.9 - Acute kidney failure, unspecified Status: Acute (3) Thrombocytopenia ICD Code: D69.6 - Thrombocytopenia, unspecified Status: Acute (4) Lymphocytosis ICD Code: D72.820 - Lymphocytosis (symptomatic) Status: Acute (5) Anemia ICD Code: D64.9 - Anemia, unspecified Status: Acute Assessment and Plan 01/14: Temperature is 100, increase heart rate 116-123, platelet count is 5 yesterday, CBC 0.3, continue monitoring, CBC for today pending repeat CBC in a.m. EGD 01/14>gasteritis and distal esoph ulcer 01/16:1 pack of weight lifting one pack of packed red blood cells as being transfused today, continue following with hematology oncology, GI signed off, hypokalemia replaced 01/17: Platelet count is 7 today, hemoglobin 7.2, hematocrit 20.9, CBC in a.m., transfusion as needed, hypokalemia> replete and repeat in a.m. 01/18: Platelet count dropped to 4, hemoglobin 6.9 hematocrit 20.1, transfusion for platelet and packed red blood cells ordered , oncology following A/P: Mr. Duarte is 26 yo, with no significant past medical history. -- Neutropenic fever: Continue monitoring for fever per IDs recommendations. Afebrile. Blood cultures show no growth in 5 days x 2. CSF cultures and BAL shows no growth. 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 Patients with rearrangement of CBFB in AML may have a higher risk of TRANSITIONS MANAGER RN involvement at diagnosis or at relapse than patients with other types of AML. Inversion 16 or t(16;16), with or without additional chromosome abnormalities, has been associated with complete remission and improved long-term survival. MUGA scan shows normal EF and no wall motion abnormalities 12/30/2016 Port placement by IR completed 12/31/16 - CMV negative, HIV and Hep B and C negative --Abdominal pain - splenic infarcts likely contributing. HIDA shows no significant abnormalities. CTA Abd showing no signs of occlusive atherosclerosis , C.diff negative x 2. On IV Dilaudid for this. Initial stool occults were negative in late January, 01/09 hemoccult positive. carafate, protonix, and abx. H.PYLORI ANTIGEN . Started on Zosyn empirically for possible neutropenic enterocolitis per hem/onc. MRI negative for acute findings. Splenic hemangiomas noted. --Diarrhea - stool studies pending. Lactobacillus added to regimen. C diff negative x 2. 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 Doppler studies negative for DVT. PT/OT eval/tx. IS and acapella use. Nemou,Brown MD Jan 18, 2017 13:53
[2017-01-18] MEDS ORDERED: POTASSIUM PHOSPHATE INJ 30 MMOL in SODIUM CHLOR 0.9% 250 ML INJ 250 ML IV ONE (14:00)
[2017-01-18 17:06] LABS: AUTOMATED NEUTROPHIL # 0.2 TH/MM3 (1.8-7.7); BASOPHIL % 0.3 % (0.0-2.0); EOSINOPHIL % 0.4 % (0.0-4.0); LYMPH % 58.3 % (9.0-44.0); LYMPHOCYTE # 0.5 TH/MM3 (1.0-4.8); MEAN CELL VOLUME 88.6 FL (80.0-100.0); MEAN CORPUSCULAR HEMOGLOBIN 30.8 PG (27.0-34.0); MEAN CORPUSCULAR HGB CONC 34.7 % (32.0-36.0); RED BLOOD COUNT 2.37 MIL/MM3 (4.50-5.90); RED CELL DISTRIBUTION WIDTH 14.2 % (11.6-17.2); WHITE BLOOD COUNT 0.8 TH/MM3 (4.0-11.0)
[2017-01-18 17:09] LABS: HEMO FLAGS AUTO DIFF
[2017-01-18 17:12] LABS: PLATELET COUNT 7 TH/MM3 (150-450)
[2017-01-18 17:22] LABS: BICARBONATE 33.4 MEQ/L (21.0-32.0); POTASSIUM 3.1 MEQ/L (3.5-5.1)
[2017-01-18 17:25] LABS: CALCIUM-PROTEIN CORRECTED 8.4 MG/DL (8.5-10.1); INDIRECT BILIRUBIN 0.6 MG/DL (0.0-0.8)
[2017-01-18 17:47] LABS: BANDS 2 % (0-6); BLASTS 2 % (0-0); NEUTROPHIL # MANUAL DIFF 0.3 TH/MM3 (1.8-7.7); PLATELET ESTIMATE SMEAR RARE (NORMAL); POLYS (SEG NEUTROPHILS) 36 % (16-70); SCAN/DIFF FINAL DIFF MANUAL; WBC DIFF SAMPLE 55
[2017-01-18 23:14] LABS: MEAN CELL VOLUME 87.3 FL (80.0-100.0); MEAN CORPUSCULAR HEMOGLOBIN 30.5 PG (27.0-34.0); MEAN CORPUSCULAR HGB CONC 34.9 % (32.0-36.0); RED BLOOD COUNT 2.41 MIL/MM3 (4.50-5.90); REVIEW FLAG FINAL
[2017-01-18 23:17] LABS: PLATELET COUNT 9 TH/MM3 (150-450)
[2017-01-18] MEDS: HYDROmorphone HCL PCA 6 MG/30 ML IV SCH (23:26)
[2017-01-18 23:36] LABS: APTT (PATIENT) 33.2 SEC (24.3-30.1); INTERNATIONAL NORMALIZED RATIO 1.3 RATIO
[2017-01-19] VITALS (15 sets, daily range): BP systolic 111–142; BP diastolic 59–65; PULSE 88–99; RESP 16–19; TEMP 98–99; O2SAT 92–98
[2017-01-19] MEDS: D5-NS + KCL 40 MEQ INJ 1,000 ML IV SCH ×2 (00:29→00:48)
[2017-01-19] MEDS: HYDROmorphone HCL PF 2 MG/ML VIAL IV PUSH PRN ×5 (01:51→21:42)
[2017-01-19] MEDS: VANCOMYCIN INJ 2,000 MG in SODIUM CHLORID 0.9% 500 ML INJ 500 ML IV SCH ×2 (03:37→15:08)
[2017-01-19] MEDS: PIPERACIL-TAZO 4.5 GM PREMIX 100 ML IV SCH ×4 (03:37→20:25)
[2017-01-19] MEDS: AMINOCAPROIC ACID 500 MG TAB PO SCH ×5 (05:46→19:56)
[2017-01-19] MEDS: SUCRALFATE 1 GM/10 ML CUP PO SCH ×3 (05:46→21:00)
[2017-01-19] MEDS: PCA - TOTAL MG DILAUDID DELIVERED PER SHIFT OTHER SCH ×2 (06:00→22:00)
--- NOTE | 2017-01-19 08:44 | RADRPT ---
EXAM DATE/TIME: 01/19/2017 08:07 [facility] COMPARISON: No previous studies available for comparison. INDICATIONS : Reevaluate superficial thrombus. MEDICAL HISTORY : Migraines. Abdominal pain. Diarrhea. Nausea/vomiting. SURGICAL HISTORY : [place] teeth. ENCOUNTER: Subsequent ACUITY: 4 - 6 days PAIN SCORE: 7/10 LOCATION: Right arm. FINDINGS: There is spontaneous flow documented in the brachial, basilic, cephalic, axillary, and subclavian vei ns. The vessels are compressible and augmentation response is documented. No filling defects are se en. The flow is phasic with respiration. Direction of flow in the jugular vein is caudal. CONCLUSION: Negative for DVT . Richy Bonner MD FACR on January 19, 2017 at 8:41 Board Certified Radiologist. This report was verified electronically.
[2017-01-19] MEDS: Hickman Catheter Daily NS Lock Flush IV FLUSH SCH (09:00)
[2017-01-19] MEDS: MUPIROCIN 2% OINT 22 GM TUBE TOPICAL SCH ×3 (09:00→18:00)
[2017-01-19] MEDS: SODIUM CHLORIDE 0.9% FLUSH 10 ML FLUSH IV FLUSH SCH ×2 (09:00→20:38)
--- NOTE | 2017-01-19 09:27 | PD.ONC.PN ---
Subjective Subjective Remarks c/o all over bone pain Afebrile Abdominal pain better, difficulty eating - dysphagia Objective Data Date Time Temp Pulse Resp B/P (MAP) Pulse Ox O2 Delivery O2 Flow Rate FiO2 01/19/17 08:00 98.4 97 19 139/62 (87) 96 01/19/17 06:22 16 01/19/17 06:00 18 01/19/17 04:20 99.0 94 19 137/60 (85) 95 01/19/17 04:00 96 01/19/17 02:01 98.3 92 16 128/59 94 01/19/17 00:25 97 01/19/17 00:25 98.7 99 18 137/62 (87) 96 01/18/17 23:56 16 01/18/17 23:26 16 01/18/17 22:33 16 01/18/17 21:08 114 01/18/17 20:20 98.3 116 20 142/73 (96) 99 01/18/17 20:20 Room Air 01/18/17 16:00 97.2 100 16 128/61 (83) 99 01/18/17 15:50 96 01/18/17 14:00 16 01/18/17 13:18 96.9 95 16 130/53 97 01/18/17 12:33 90 01/18/17 12:00 96.9 95 16 130/53 (78) 93 01/18/17 11:27 97.9 93 16 131/97 97 01/18/17 11:03 94 01/18/17 10:59 97.7 92 16 134/63 96 01/19/17 01/19/17 01/19/17 07:00 15:00 23:00 Intake Total 264 ml Balance 264 ml Result Diagram: 01/18/17 8151 01/18/17 0906 Laboratory Results Laboratory Tests Test 01/18/17 15:55 01/18/17 23:00 White Blood Count 0.8 TH/MM3 1.0 TH/MM3 Red Blood Count 2.37 MIL/MM3 2.41 MIL/MM3 Hemoglobin 7.3 GM/DL 7.4 GM/DL Hematocrit 21.0 % 21.0 % Mean Corpuscular Volume 88.6 FL 87.3 FL Mean Corpuscular Hemoglobin 30.8 PG 30.5 PG Mean Corpuscular Hemoglobin Concent 34.7 % 34.9 % Red Cell Distribution Width 14.2 % 14.0 % Platelet Count 7 TH/MM3 9 TH/MM3 Mean Platelet Volume 8.5 FL 8.4 FL Neutrophils (%) (Auto) 25.0 % Lymphocytes (%) (Auto) 58.3 % Monocytes (%) (Auto) 16.0 % Eosinophils (%) (Auto) 0.4 % Basophils (%) (Auto) 0.3 % Neutrophils # (Auto) 0.2 TH/MM3 Lymphocytes # (Auto) 0.5 TH/MM3 Monocytes # (Auto) 0.1 TH/MM3 Eosinophils # (Auto) 0.0 TH/MM3 Basophils # (Auto) 0.0 TH/MM3 CBC Comment AUTO DIFF Differential Total Cells Counted 55 Neutrophils % (Manual) 36 % Band Neutrophils % 2 % Lymphocytes % 60 % Neutrophils # (Manual) 0.3 TH/MM3 Differential Comment FINAL DIFF MANUAL Blastocytes 2 % Platelet Estimate RARE Blood Urea Nitrogen 12 MG/DL Creatinine 0.69 MG/DL Random Glucose 80 MG/DL Total Protein 4.4 GM/DL Albumin 1.5 GM/DL Calcium Level 6.9 MG/DL Phosphorus Level 1.7 MG/DL Magnesium Level 2.0 MG/DL Alkaline Phosphatase 65 U/L Aspartate Amino Transf (AST/SGOT) 10 U/L Alanine Aminotransferase (ALT/SGPT) 25 U/L Total Bilirubin 1.0 MG/DL Direct Bilirubin 0.4 MG/DL Sodium Level 138 MEQ/L Potassium Level 3.1 MEQ/L Chloride Level 100 MEQ/L Carbon Dioxide Level 33.4 MEQ/L Anion Gap 5 MEQ/L Estimat Glomerular Filtration Rate 141 ML/MIN Protein Corrected Calcium 8.4 MG/DL Indirect Bilirubin 0.6 MG/DL Vancomycin Level Trough 9.6 MCG/ML Prothrombin Time 15.0 SEC Prothromb Time International Ratio 1.3 RATIO Activated Partial Thromboplast Time 33.2 SEC Fibrinogen 252 mg/dL Imaging Studies Last 24 hours Impressions Upper Extremity Ultrasound 01/19/17 0000 Signed Impressions: Service Date/Time: Thursday, January 19, 2017 08:07 - CONCLUSION: Negative for DVT . Richy Bonner MD FACR Administered Medications Medications (Trade) Dose Ordered Sig/Emma Route PRN Reason Start Time Stop Time Status Last Admin Dose Admin Sodium Chloride (NS Flush) 2 ml UNSCH PRN IV FLUSH FLUSH AFTER USING IV ACCESS 12/25/16 23:00 12/30/16 04:59 Sodium Chloride (NS Flush) 2 ml BID IV FLUSH 12/26/16 09:00 01/18/17 07:54 Acetaminophen (Tylenol) 650 mg Q6H PRN PO FEVER>100.4 12/25/16 23:00 01/18/17 04:53 Benzonatate (Tessalon) 100 mg Q4H PRN PO COUGH 12/26/16 05:15 12/26/16 15:12 Mupirocin (Bactroban 2% Oint) 1 applic TID TOPICAL 12/27/16 14:15 01/16/17 16:51 Sodium Chloride (NS Flush) 5 ml DAILY IV FLUSH 12/30/16 09:00 01/13/17 10:42 Heparin Sodium (Porcine) (Heparin Central Flush) 500 units UNSCH PRN IV FLUSH SEE PROTOCOL TABLE 12/30/16 06:30 12/31/16 15:45 Allopurinol (Zyloprim) 200 mg DAILY PO 01/06/17 09:00 01/18/17 07:51 Hyoscyamine Sulfate (Levsin) 0.25 mg Q4H PRN PO CRAMPS 01/06/17 09:30 01/06/17 10:06 Sucralfate (Carafate Liq) 1 gm ACHS PO 01/09/17 16:00 01/19/17 05:46 Pantoprazole Sodium 80 mg/ Sodium Chloride 100 ml @ 10 mls/hr CONTINUOUS IV 01/11/17 16:00 01/17/17 14:33 Hydromorphone HCl (Dilaudid LINOLEUM LAYER APPRENTICE Inj) 6 mg UNSCH IV 01/11/17 15:15 01/18/17 23:26 LINOLEUM LAYER APPRENTICE Dosage Infused (Pha) 1 Q8HR OTHER 01/11/17 15:45 01/19/17 06:00 Ondansetron HCl (Zofran Inj) 8 mg Q8H PRN IV PUSH NAUSEA 01/11/17 17:15 Future hold 01/18/17 17:42 Hydromorphone HCl (Dilaudid Pf Inj) 2 mg Q4H PRN IV PUSH SEVERE BREAKTHROUGH PAIN 01/12/17 15:30 01/19/17 05:52 Piperacillin Sod/ Tazobactam Sod 100 ml @ 200 mls/hr Q6H IV 01/13/17 21:00 01/19/17 03:37 Fluconazole/ Sodium Chloride 200 ml @ 100 mls/hr Q24H IV 01/14/17 12:00 01/18/17 12:25 Nystatin (Mycostatin Liq) 5 ml QID SWISH-SWAL 01/14/17 13:00 01/18/17 20:20 Promethazine HCl (Phenergan Inj) 12.5 mg Q4H PRN IV-CENTRAL nausea 01/14/17 16:45 01/16/17 02:25 Multi-Ingredient Mouthwash/Gargle (Magic Mouthwash Adult Liq) 10 ml QID PRN SWISH-SWAL sore throat 01/15/17 06:30 01/18/17 06:14 Vancomycin HCl 2000 mg/Sodium Chloride 520 ml @ 250 mls/hr Q8H IV 01/16/17 20:00 01/19/17 03:37 Potassium Chloride/Dextrose/ Sod Cl 1,000 ml @ 84 mls/hr [id number] IV 01/17/17 13:30 01/19/17 00:29 Aminocaproic Acid (Amicar) 1,000 mg Q6HR PO 01/17/17 12:00 01/19/17 05:46 Acetaminophen (Tylenol) 650 mg Q6H PRN PO WHILE BLOOD INFUSING 01/18/17 10:00 01/18/17 10:31 Diphenhydramine HCl (Benadryl) 25 mg Q4H PRN PO WHILE BLOOD INFUSING 01/18/17 10:00 01/18/17 10:30 Objective Remarks GENERAL: overweight Mild swelling all extremities. SKIN: Warm and dry. HEAD: Normocephalic. EYES: No scleral icterus. No injection or drainage. NECK: Supple, trachea midline. No JVD or lymphadenopathy. LYMPHATIC: No adenopathy. CARDIOVASCULAR: Regular rate and rhythm without murmurs. RESPIRATORY: Breath sounds equal bilaterally. No accessory muscle use. GASTROINTESTINAL: Abdomen soft, non-tender, nondistended. EXTREMITIES: trace edema. MUSCULOSKELETAL: Adequate muscle tone. NEUROLOGICAL: No obvious focal deficit. Awake, alert, and oriented x3. PSYCHIATRIC: Appropriate mood and affect; insight and judgment normal. 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 3am. Transfuse 1 unit irr. platelets, 1 unit irr. PRBC's. 01/08: D9. abdominal pain persistent. 2 units pRBC 01/09: D10. 2 additional units pRBC ordered. 1 unit platelets ordered 01/10: D11. 2 units pRBC. 1 unit platelets. + stool hemoccult 01/12: D13: 2 units pRBC. 1 unit platelets. 01/13: D14: 1 unit platelets. BB working to obtain HLA matched platelets 01/14: D15. 2 units HLA matched platelets given. spoke with BB they will have two units HLA matched on hand at all times. EGD today. 01/15: D16: 1 unit platelets, 1 unit pRBC. swelling in neck and face, ?SVC syndrome. CT chest and CT neck ordered 01/16: D 17: 1 unit platelets, [address] chest and neck negative for SVC syndrome. Continue to monitor blood counts. 01/17 D18: Labs pending. Start Amicar 1gm Q6h for overnight coughing up trav blood. Will transfuse for platelets less than 10k and Hgb less than 7.0. 01/18 D19: WBC 1.0, still thrombocytopenic, no bleeding from IV site or gums. Continue plans for platelet transfusion support. Afebrile. Encourage to sit up to mobilize some fluid. 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 Patients with rearrangement of CBFB in AML may have a higher risk of INFLATED BALL MOLDER involvement at diagnosis or at relapse than patients with other types of AML. Inversion 16 or t(16;16), with or without additional chromosome abnormalities, has been associated with complete remission and improved long-term survival. - MUGA scan shows normal EF and no wall motion abnormalities 12/30/2016 - Port placement by IR completed 12/31/16 - Induction chemotherapy started 12/31-- 7+3 regimen with Daunorubicin 90mg/m2 and Cytaribine 100mg/m2-- Dosing capped at BSA of 2 - CMV negative, HIV and Hep B and C negative (2) Neutropenia ICD Codes: D70.9 - Neutropenia, unspecified Status: Acute Plan: 01/18/17. WBC 1.0 no diff, seeming recovery, Abx support continue -- ID following -- On Zosyn +Vanco+ Fluconazole -- Bronchoscopy on 12/28= no growth. -- All BC since hospitalization = no growth (3) Abdominal pain ICD Codes: R10.9 - Unspecified abdominal pain Plan: 01/19/17. Attribute abdominal pain to gastritis. Improved but now replaced by bone pain. -- Epigastric area pain--EGD, 01/14 showed thrush and distal esophageal ulcer as well as severe gastritis. -- Amylase, lipase WNL -- CT abdomen/ pelvis shows splenic infarcts; --CTA abdomen shows no mesenteric emboli --Abdominal U/S: shows no acute findings. enlarged liver and spleen. --GI following --on Protonix, Carafate, Zosyn, Vanco, Diflucan +stool hemoccult (4) Pancytopenia ICD Codes: D61.818 - Other pancytopenia Plan: - Check Fibrinogen every other day - Transfuse to keep platelets > 10 - Will need irradiated CMV negative blood products -- transfuse to keep Hb > 7 (5) GIB (gastrointestinal bleeding) ICD Codes: K92.2 - Gastrointestinal hemorrhage, unspecified Plan: 01/19/17. Follow hgb 7.4, transfuse for symptoms. --+ stool hemoccult on 01/09/17 --on Protonix + Carafate --EGD on 01/14 showed distal esophageal ulcer. --monitor serial H/H, transfuse as needed Assessment 1: day 19 post chemo. 2: neutropenia: no fever and will continue same antibiotics 3:thrombocytopenia: Transfuse platelet< 10K, HLA pending available as supply is low. 4: give K replacement, taking PO poorly 5: discussed mobilize arms legs to decrease edema, encourage to sit up. 6: transfuse 1 unit of packed cells. Problem Qualifiers (1) Acute myelogenous leukemia: Qualified Codes: C92.00 - Acute myeloblastic leukemia, not having achieved remission (2) Neutropenia: Abiola Camilo MD Jan 19, 2017 09:27
[2017-01-19 09:39] LABS: AUTOMATED NEUTROPHIL # 0.4 TH/MM3 (1.8-7.7); BASOPHIL % 0.2 % (0.0-2.0); EOSINOPHIL % 0.1 % (0.0-4.0); LYMPH % 47.7 % (9.0-44.0); LYMPHOCYTE # 0.5 TH/MM3 (1.0-4.8); MEAN CELL VOLUME 87.6 FL (80.0-100.0); MEAN CORPUSCULAR HEMOGLOBIN 30.9 PG (27.0-34.0); MEAN CORPUSCULAR HGB CONC 35.3 % (32.0-36.0); MONO % 14.3 % (0.0-8.0); NEUT % 37.7 % (16.0-70.0); RED BLOOD COUNT 2.06 MIL/MM3 (4.50-5.90); RED CELL DISTRIBUTION WIDTH 14.1 % (11.6-17.2)
[2017-01-19 09:45] LABS: APTT (PATIENT) 31.4 SEC (24.3-30.1); INTERNATIONAL NORMALIZED RATIO 1.3 RATIO; PROTHROMBIN TIME - PATIENT 14.5 SEC (9.8-11.6)
[2017-01-19] MEDS: ALLOPURINOL 100 MG TAB PO SCH (09:56)
[2017-01-19 09:57] LABS: HEMO FLAGS AUTO DIFF; PLATELET COUNT 17 TH/MM3 (150-450)
[2017-01-19] MEDS: NYSTATIN SUSP 500,000 U/5 ML CUP SWISH-SWAL SCH ×4 (09:57→20:36)
[2017-01-19 10:04] LABS: BICARBONATE 27.2 MEQ/L (21.0-32.0); POTASSIUM 3.1 MEQ/L (3.5-5.1)
[2017-01-19 10:13] LABS: CALCIUM-PROTEIN CORRECTED 8.5 MG/DL (8.5-10.1); INDIRECT BILIRUBIN 0.3 MG/DL (0.0-0.8); TOTAL BILIRUBIN ADULT 0.6 MG/DL (0.2-1.0)
[2017-01-19 10:33] LABS: BLASTS 2 % (0-0); CORRECTED NUCLEATED RBC 1 /100 WBC (0-0); NEUTROPHIL # MANUAL DIFF 0.2 TH/MM3 (1.8-7.7); POLYS (SEG NEUTROPHILS) 15 % (16-70); WBC DIFF SAMPLE 100
[2017-01-19 10:34] LABS: PLATELET ESTIMATE SMEAR LOW (NORMAL); PLATELET MORPHOLOGY NORMAL (NORMAL); SCAN/DIFF FINAL DIFF MANUAL
[2017-01-19] MEDS: diphenhydrAMINE HCL 25 MG CAP PO PRN (11:31)
[2017-01-19] MEDS: ONDANSETRON HCL 4 MG/2 ML VIAL IV PUSH PRN ×2 (11:31→20:36)
[2017-01-19] MEDS: ACETAMINOPHEN 325 MG TAB PO PRN (11:31)
[2017-01-19] MEDS: FLUCONAZOLE 400 MG PREMIX BAG 200 ML IV SCH (11:40)
[2017-01-19] MEDS ORDERED: OXYMETAZOLINE HCL 0.05% 15 ML NASAL SPRAY NASAL STA (11:49)
[2017-01-19] MEDS ORDERED: AMINOCAPROIC ACID IV STA ×3 (11:49→12:23)
[2017-01-19] MEDS ORDERED: SODIUM CHLOR 0.9% IV STA ×3 (11:49→12:23)
[2017-01-19] MEDS ORDERED: SODIUM CHLOR 0.9% 250 ML INJ 250 ML IV ONE (12:00)
--- NOTE | 2017-01-19 14:21 | HHI.PR ---
Subjective Remarks Patient resting in bed, he feels swollen in his upper arms, Doppler ultrasound came back negative for DVT Minimal cough, otherwise no fever or chills no abdominal pain or diarrhea, Objective Vitals Vital Signs Date Time Temp Pulse Resp B/P (MAP) Pulse Ox O2 Delivery O2 Flow Rate FiO2 01/19/17 12:00 98.1 97 19 131/60 (83) 97 01/19/17 10:42 Room Air 01/19/17 08:00 98.4 97 19 139/62 (87) 96 01/19/17 08:00 95 01/19/17 06:22 16 01/19/17 06:00 18 01/19/17 04:20 99.0 94 19 137/60 (85) 95 01/19/17 04:00 96 01/19/17 02:01 98.3 92 16 128/59 94 01/19/17 00:25 97 01/19/17 00:25 98.7 99 18 137/62 (87) 96 01/18/17 23:56 16 01/18/17 23:26 16 01/18/17 22:33 16 01/18/17 21:08 114 01/18/17 20:20 98.3 116 20 142/73 (96) 99 01/18/17 20:20 Room Air 01/18/17 16:00 97.2 100 16 128/61 (83) 99 01/18/17 15:50 96 I/O 01/18/17 01/18/17 01/18/17 01/19/17 01/19/17 01/19/17 07:00 15:00 23:00 07:00 15:00 23:00 Intake Total 100 ml 1691 ml 1700 ml 264 ml Output Total 1000 ml 1000 ml 700 ml Balance -900 ml 691 ml 1700 ml 264 ml -700 ml Intake Oral 100 ml 680 ml IV Total 300 ml 1700 ml Packed Cells 400 ml Platelets 241 ml 214 ml Blood Product IV Normal Saline Flush 70 ml 50 ml Output Urine Total 1000 ml 1000 ml 700 ml # Voids 1 # Bowel Movements 1 Result Diagram: 01/19/1785401/19/17854 Objective Remarks GENERAL: This is a well-nourished, well-developed patient, in no apparent distress. SKIN: No rashes, warm and dry HEAD: Atraumatic. Normocephalic. EYES: Pupils equal round and reactive. Extraocular motions intact. No scleral icterus. ENT: Nose without bleeding, or drainage, Airway patent. NECK: Trachea midline. Supple CARDIOVASCULAR: Regular rate and rhythm without murmurs, gallops, or rubs. RESPIRATORY: Fair air entry bilaterally. No wheezes, rales, or rhonchi. GASTROINTESTINAL: Abdomen soft, non-tender, nondistended. Positive bowel sounds MUSCULOSKELETAL: Extremities without clubbing, cyanosis, or edema. Pedal pulses appreciated NEUROLOGICAL: Awake and alert. Moves all extremity. Normal speech.no focal neurological deficit Procedures 12/31 [place] placement A/P Problem List: (1) SIRS (systemic inflammatory response syndrome) ICD Code: R65.10 - Systemic inflammatory response syndrome (SIRS) of non- infectious origin without acute organ dysfunction Status: Acute (2) GABRIELA (acute kidney injury) ICD Code: N17.9 - Acute kidney failure, unspecified Status: Acute (3) Thrombocytopenia ICD Code: D69.6 - Thrombocytopenia, unspecified Status: Acute (4) Lymphocytosis ICD Code: D72.820 - Lymphocytosis (symptomatic) Status: Acute (5) Anemia ICD Code: D64.9 - Anemia, unspecified Status: Acute Assessment and Plan 01/14: Temperature is 100, increase heart rate 116-123, platelet count is 5 yesterday, CBC 0.3, continue monitoring, CBC for today pending repeat CBC in a.m. EGD 01/14>gasteritis and distal esoph ulcer 01/16:1 pack of weight lifting one pack of packed red blood cells as being transfused today, continue following with hematology oncology, GI signed off, hypokalemia replaced 01/17: Platelet count is 7 today, hemoglobin 7.2, hematocrit 20.9, CBC in a.m., transfusion as needed, hypokalemia> replete and repeat in a.m. 01/18: Platelet count dropped to 4, hemoglobin 6.9 hematocrit 20.1, transfusion for platelet and packed red blood cells ordered , oncology following 01/19: Platelet count and hemoglobin continued to drop, plan for another transfusion of platelets and packed red cells however irradiated platelet is not available, plateletpheresis been ordered by oncology, continue closely monitoring CBC, transfer to ICU per oncology 01/20: Patient had episodes of hematemesis later during the day yesterday, GI consulted iv Protonix drip started with Carafate, no hematemesis today, hemoglobin and platelet better today at 7.9 and 39 respectively GI and oncology following, repeat CBC in a.m., ID following for antibiotic management, patient on Zosyn and Vanco A/P: Mr. Duarte is 26 yo, with no significant past medical history. -- Neutropenic fever: Continue monitoring for fever per IDs recommendations. Afebrile. Blood cultures show no growth in 5 days x 2. CSF cultures and BAL shows no growth. 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 Patients with rearrangement of CBFB in AML may have a higher risk of STEAM BOX HAND involvement at diagnosis or at relapse than patients with other types of AML. Inversion 16 or t(16;16), with or without additional chromosome abnormalities, has been associated with complete remission and improved long-term survival. MUGA scan shows normal EF and no wall motion abnormalities 12/30/2016 Port placement by IR completed 12/31/16 - CMV negative, HIV and Hep B and C negative --Abdominal pain - splenic infarcts likely contributing. HIDA shows no significant abnormalities. CTA Abd showing no signs of occlusive atherosclerosis , C.diff negative x 2. On IV Dilaudid for this. Initial stool occults were negative in late January, 01/09 hemoccult positive. carafate, protonix, and abx. H.PYLORI ANTIGEN . Started on Zosyn empirically for possible neutropenic enterocolitis per hem/onc. MRI negative for acute findings. Splenic hemangiomas noted. --Diarrhea - stool studies pending. Lactobacillus added to regimen. C diff negative x 2. 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 Doppler studies negative for DVT. PT/OT eval/tx. IS and acapella use. Kevin Montiel MD Jan 19, 2017 14:21
--- NOTE | 2017-01-19 14:40 | HHI.GIFU ---
Subjective Remarks Reconsulted for hematemesis. Pt has brandon esophagitis. States he was coughing- and then started having nausea/vomiting with hematemesis- first dark and then he states he nose started bleeding and he was vomiting bright red blood. Pt states that he only had the one episode. No abdominal pain, but does have generalized pain. (Adilene Vizcaino) Objective Vitals I&O Vital Signs Date Time Temp Pulse Resp B/P (MAP) Pulse Ox O2 Delivery O2 Flow Rate FiO2 01/19/17 12:00 98.1 97 19 131/60 (83) 97 01/19/17 10:42 Room Air 01/19/17 08:00 98.4 97 19 139/62 (87) 96 01/19/17 08:00 95 01/19/17 06:22 16 01/19/17 06:00 18 01/19/17 04:20 99.0 94 19 137/60 (85) 95 01/19/17 04:00 96 01/19/17 02:01 98.3 92 16 128/59 94 01/19/17 00:25 97 01/19/17 00:25 98.7 99 18 137/62 (87) 96 01/18/17 23:56 16 01/18/17 23:26 16 01/18/17 22:33 16 01/18/17 21:08 114 01/18/17 20:20 98.3 116 20 142/73 (96) 99 01/18/17 20:20 Room Air 01/18/17 16:00 97.2 100 16 128/61 (83) 99 01/18/17 15:50 96 I/O 01/18/17 01/18/17 01/18/17 01/19/17 01/19/17 01/19/17 07:00 15:00 23:00 07:00 15:00 23:00 Intake Total 100 ml 1691 ml 1700 ml 264 ml Output Total 1000 ml 1000 ml 700 ml Balance -900 ml 691 ml 1700 ml 264 ml -700 ml Intake Oral 100 ml 680 ml IV Total 300 ml 1700 ml Packed Cells 400 ml Platelets 241 ml 214 ml Blood Product IV Normal Saline Flush 70 ml 50 ml Output Urine Total 1000 ml 1000 ml 700 ml # Voids 1 # Bowel Movements 1 Laboratory Laboratory Tests Test 01/18/17 15:55 01/18/17 23:00 01/19/17 08:55 White Blood Count 0.8 1.0 1.0 Red Blood Count 2.37 2.41 2.06 Hemoglobin 7.3 7.4 6.4 Hematocrit 21.0 21.0 18.0 Mean Corpuscular Volume 88.6 87.3 87.6 Mean Corpuscular Hemoglobin 30.8 30.5 30.9 Mean Corpuscular Hemoglobin Concent 34.7 34.9 35.3 Red Cell Distribution Width 14.2 14.0 14.1 Platelet Count 7 9 17 Mean Platelet Volume 8.5 8.4 8.7 Neutrophils (%) (Auto) 25.0 37.7 Lymphocytes (%) (Auto) 58.3 47.7 Monocytes (%) (Auto) 16.0 14.3 Eosinophils (%) (Auto) 0.4 0.1 Basophils (%) (Auto) 0.3 0.2 Neutrophils # (Auto) 0.2 0.4 Lymphocytes # (Auto) 0.5 0.5 Monocytes # (Auto) 0.1 0.1 Eosinophils # (Auto) 0.0 0.0 Basophils # (Auto) 0.0 0.0 CBC Comment AUTO DIFF AUTO DIFF Differential Total Cells Counted 55 100 Neutrophils % (Manual) 36 15 Band Neutrophils % 2 Lymphocytes % 60 81 Neutrophils # (Manual) 0.3 0.2 Differential Comment FINAL DIFF MANUAL FINAL DIFF MANUAL Blastocytes 2 2 Platelet Estimate RARE LOW Blood Urea Nitrogen 12 9 Creatinine 0.69 0.70 Random Glucose 80 86 Total Protein 4.4 4.2 Albumin 1.5 1.5 Calcium Level 6.9 6.9 Phosphorus Level 1.7 Magnesium Level 2.0 Alkaline Phosphatase 65 61 Aspartate Amino Transf (AST/SGOT) 10 9 Alanine Aminotransferase (ALT/SGPT) 25 23 Total Bilirubin 1.0 0.6 Direct Bilirubin 0.4 0.3 Sodium Level 138 136 Potassium Level 3.1 3.1 Chloride Level 100 100 Carbon Dioxide Level 33.4 27.2 Anion Gap 5 9 Estimat Glomerular Filtration Rate 141 139 Protein Corrected Calcium 8.4 8.5 Indirect Bilirubin 0.6 0.3 Vancomycin Level Trough 9.6 Prothrombin Time 15.0 14.5 Prothromb Time International Ratio 1.3 1.3 Activated Partial Thromboplast Time 33.2 31.4 Fibrinogen 252 Monocytes % 2 Nucleated Red Blood Cells 1 Platelet Morphology Comment NORMAL Date/Time Source Procedure Growth Status 01/14/17 01:35 Blood Line Aerobic Blood Culture - Final NO GROWTH IN 5 DAYS Complete 01/14/17 01:35 Blood Line Anaerobic Blood Culture - Final NO GROWTH IN 5 DAYS Complete 12/26/16 17:10 Cerebral Spinal Fluid Lumbar Puncture Acid Fast Stain - Final NO ACID FAST BACILLI SEEN Resulted 12/26/16 17:10 Cerebral Spinal Fluid Lumbar Puncture Mycobacterial Culture - Preliminary NO GROWTH IN 3 WEEKS Resulted 01/09/17 19:57 Stool Stool Stool Occult Blood (SUNDAR) - Final HEMOCCULT POSITIVE Complete 12/28/16 17:50 Bronchial Washings Left Lower Lobe Fungal Smear - Final NO FUNGAL ELEMENTS SEEN. Resulted 12/28/16 17:50 Bronchial Washings Left Lower Lobe Fungal Culture - Preliminary NO GROWTH IN 3 WEEKS Resulted 01/11/17 22:25 Urine Clean Catch Urine Culture - Final NO GROWTH IN 48 HOURS. Complete Imaging Last Impressions Upper Extremity Ultrasound 01/19/17 0000 Signed Impressions: Service Date/Time: Thursday, January 19, 2017 08:07 - CONCLUSION: Negative for DVT . Richy Bonner MD FACR Neck CT 01/15/17 0806 Signed Impressions: Service Date/Time: Sunday, January 15, 2017 09:54 - CONCLUSION: Mild sinusitis within the maxillary sinuses, slight scarring right apex of the lung. Patricia Contreras MD Chest CT 01/15/17 0806 Signed Impressions: Service Date/Time: Sunday, January 15, 2017 09:58 - CONCLUSION: Left lung infiltrate has resolved and there is improvement in right lung infiltrates with residual infiltrate remaining. Patricia Contreras MD Abdomen X-Ray 01/13/17 1451 Signed Impressions: Service Date/Time: Friday, January 13, 2017 15:41 - CONCLUSION: Moderate gaseous distention of large and small bowel with appearance most suggestive of ileus Audie Gomez MD Abdomen MRI 01/12/17 0000 Signed Impressions: Service Date/Time: Thursday, January 12, 2017 09:47 - CONCLUSION: No evidence of acute abdominal process. Splenic hemangiomas Humza Decker MD Lower Extremity Ultrasound 01/10/17 0000 Signed Impressions: Service Date/Time: Tuesday, January 10, 2017 21:50 - CONCLUSION: Negative exam with no evidence of deep venous thrombosis. Jose Nicholson MD Hepatobiliary Scan Nuclear Medicine 01/09/17 0000 Signed Impressions: Service Date/Time: Monday, January 09, 2017 10:01 - CONCLUSION: 1. The patient refused imaging beyond 45 minutes. There is activity seen within small bowel and gallbladder with no evidence for cystic duct obstruction. Danie Kelly MD Abdomen/Pelvis CT 01/08/17 0000 Signed Impressions: Service Date/Time: Sunday, January 08, 2017 14:43 - CONCLUSION: 1. No evidence of mesenteric artery stenosis 2. Small amount of free fluid is present in the pelvis Humza Decker MD Abdomen Ultrasound 01/07/17 0000 Signed Impressions: Service Date/Time: December 01:11 - CONCLUSION: 1. No acute findings. Liver enlarged. Spleen mildly prominent at 14 cm. Leander Fiore MD Chest X-Ray 01/03/17 0600 Signed Impressions: Service Date/Time: Tuesday, January 03, 2017 04:42 - CONCLUSION: Normal examination. Right IJ Ledmmt-f-Msil catheter in excellent position. Lungs are clear. Enrique Ramos MD Port Line Insertion 12/31/16 0000 Signed Impressions: Service Date/Time: December 15:15 - CONCLUSION: Uncomplicated ultrasound and fluoroscopic guided implanted central venous port catheter placement as described in detail above. An 8 [employer] port was placed. Nilson Bonner MD Gated Heart Nuclear Medicine 12/30/16 0000 Signed Impressions: Service Date/Time: Friday, December 30, 2016 13:16 - CONCLUSION: Negative exam. Calculated ejection fraction of 56%% with adequate wall motion throughout. Bean Dugan MD Bone Biopsy CT 12/28/16 0000 Signed Impressions: Service Date/Time: Wednesday, December 28, 2016 16:53 - CONCLUSION: 1. Uncomplicated CT guided bone marrow aspirate. 2. Uncomplicated CT guided bone marrow biopsy. Grant Jones MD Brain MRI 12/27/16 0000 Signed Impressions: Service Date/Time: Tuesday, December 27, 2016 21:58 - CONCLUSION: Unremarkable study. Patricia Contreras MD Lumbar Puncture Fluoroscopy 12/26/16 0000 Signed Impressions: Service Date/Time: Monday, December 26, 2016 17:03 - CONCLUSION: Uncomplicated fluoroscopically guided lumbar puncture with pressures as above. Nilson Bonner MD Head CT 12/25/161940 Signed Impressions: Service Date/Time: Sunday, December 25, 2016 19:50 - CONCLUSION: Negative noncontrast head CT. Audie Maria MD Physical Exam HEENT: Normocephalic; atraumatic; no jaundice. CHEST: CTA CARDIAC: RRR with no murmur gallop or rubs. ABDOMEN: Soft, obese, nondistended, nontender bowel sounds are present x 4 EXTREMITIES: Generalized edema. SKIN: Generalized pallor CLINICAL TRIAL MANAGER: No focal deficits; alert and oriented x 3. (Adilene Vizcaino) Assessment and Plan Plan ASSESSMENT: - Upper GIB with hematemesis. S/P EGD (01/19/17)----> 1. Severe thrush in the mouth and proximal esophagus to the distal esophagus throughout, biopsy was not done because patient is pancytopenia 2. Esophageal ulcer in the distal esophagus biopsy was not done 3. Gastritis severe throughout the stomach 4. Retroflexed views revealed gastritis. Protonix Gtt. Pt had an episode of n/v after persistent coughing with first dark emesis and then bright red blood- just the one episode today. HH 6.4/18.0. - Anemia, acute blood loss. 6.4/18.0. - Severe pancytopenia with WBC 1.0, HH 6.4/18.0, Plt 17,000. Requiring multiple transfusions. Requiring HLA matched products Getting Amicar. - Neutropenia. Zosyn, Vanco, Diflucan - Brandon esophagitis. Magic mouthwash, Nystatin, Diflucan. - Dysphagia secondary to brandon esophagitis. Magic mouthwash, Nystatin, Diflucan. - Abdominal pain. CT showing splenic infarct. CTA no mesenteric ischemia, small amount free fluid pelvis. HIDA (pt refused imaging beyond 45 min) but negative for cystic duct obstruction. 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 Now with severe pancytopenia. Per hematology PLAN: - Clear liquids - Protonix Gtt - Diflucan - Carafate - Nystatin - Magic mouthwash - Monitor CBC - Transfusions per hematology - Abx per attending - Supportive care - Notify of any further bleeding. - Further recommendations to follow based on results of above - Pt seen and examined by Dr. Huerta and myself and this note is written on his behalf (Adilene Vizcaino) Physician Comments seen, examined agree with above (Radha Huerta MD) Adilene Vizcaino Jan 19, 2017 14:39 Radha Huerta MD Jan 19, 2017 20:41
[2017-01-19] MEDS: PANTOPRAZOLE INJ 80 MG in SODIUM CHLORIDE 0.9% INJ 100 ML IV SCH (15:48)
[2017-01-19] MEDS ORDERED: PHARMACY ORDERED LAB ONE (19:45)
[2017-01-19] MEDS: POTASSIUM CHLORIDE 20 MEQ CONTROLLED RELEASE TAB PO SCH (20:25)
[2017-01-19 21:20] LABS: REVIEW FLAG FINAL
[2017-01-19 21:24] LABS: VANCOMYCIN TROUGH 22.2 MCG/ML (5.0-10.0)
[2017-01-19 21:30] LABS: MAGNESIUM 1.9 MG/DL (1.5-2.5)
[2017-01-19] MEDS: HYDROmorphone HCL PCA 6 MG/30 ML IV SCH (22:15)
[2017-01-20] VITALS (15 sets, daily range): BP systolic 109–167; BP diastolic 62–71; PULSE 82–102; RESP 12–24; TEMP 98–99.1; O2SAT 94–97
[2017-01-20] MEDS: D5-NS + KCL 40 MEQ INJ 1,000 ML IV SCH ×3 (00:19→13:45)
[2017-01-20] MEDS: AMINOCAPROIC ACID 500 MG TAB PO SCH ×4 (00:20→18:25)
[2017-01-20] MEDS: VANCOMYCIN 1,500 MG/NS 500 ML IV SCH ×6 (00:20→20:44)
[2017-01-20] MEDS: HYDROmorphone HCL PF 2 MG/ML VIAL IV PUSH PRN ×5 (01:35→22:01)
[2017-01-20] MEDS: PANTOPRAZOLE INJ 80 MG in SODIUM CHLORIDE 0.9% INJ 100 ML IV SCH ×2 (02:54→15:41)
[2017-01-20] MEDS: PIPERACIL-TAZO 4.5 GM PREMIX 100 ML IV SCH ×4 (02:54→20:44)
[2017-01-20] MEDS: ONDANSETRON HCL 4 MG/2 ML VIAL IV PUSH PRN ×2 (05:37→16:23)
[2017-01-20 05:45] LABS: AUTOMATED NEUTROPHIL # 1.2 TH/MM3 (1.8-7.7); BASOPHIL % 0.2 % (0.0-2.0); HEMATOCRIT 21.6 % (39.0-51.0); LYMPH % 36.2 % (9.0-44.0); LYMPHOCYTE # 0.7 TH/MM3 (1.0-4.8); MEAN CELL VOLUME 88.3 FL (80.0-100.0); MEAN CORPUSCULAR HEMOGLOBIN 30.5 PG (27.0-34.0); MEAN CORPUSCULAR HGB CONC 34.6 % (32.0-36.0); MONO % 3.1 % (0.0-8.0); NEUT % 60.5 % (16.0-70.0); PLATELET COUNT 39 TH/MM3 (150-450); RED BLOOD COUNT 2.44 MIL/MM3 (4.50-5.90); RED CELL DISTRIBUTION WIDTH 14.2 % (11.6-17.2)
[2017-01-20 05:58] LABS: HEMO FLAGS AUTO DIFF
[2017-01-20] MEDS ORDERED: ACETAMINOPHEN 325 MG TAB PO PRN (06:00)
[2017-01-20] MEDS: PCA - TOTAL MG DILAUDID DELIVERED PER SHIFT OTHER SCH ×3 (06:00→22:00)
[2017-01-20] MEDS ORDERED: diphenhydrAMINE HCL 25 MG CAP PO PRN (06:00)
[2017-01-20 06:36] LABS: INDIRECT BILIRUBIN 0.6 MG/DL (0.0-0.8); TOTAL BILIRUBIN ADULT 0.9 MG/DL (0.2-1.0)
[2017-01-20] MEDS: SUCRALFATE 1 GM/10 ML CUP PO SCH ×5 (06:52→20:43)
[2017-01-20 07:12] LABS: BANDS 14 % (0-6); BLASTS 3 % (0-0); METAMYELOCYTES 7 % (0-1); MYELOCYTES 5 % (0-0); NEUTROPHIL # MANUAL DIFF 1.1 TH/MM3 (1.8-7.7); PLATELET ESTIMATE SMEAR LOW (NORMAL); PLATELET MORPHOLOGY NORMAL (NORMAL); POLYS (SEG NEUTROPHILS) 31 % (16-70); SCAN/DIFF FINAL DIFF MANUAL; WBC DIFF SAMPLE 100
[2017-01-20] MEDS: Hickman Catheter Daily NS Lock Flush IV FLUSH SCH (09:00)
[2017-01-20] MEDS: MUPIROCIN 2% OINT 22 GM TUBE TOPICAL SCH ×3 (09:00→18:00)
[2017-01-20] MEDS: SODIUM CHLORIDE 0.9% FLUSH 10 ML FLUSH IV FLUSH SCH ×2 (09:00→21:00)
[2017-01-20] MEDS: POTASSIUM CHLORIDE 20 MEQ CONTROLLED RELEASE TAB PO SCH ×2 (09:00→20:43)
[2017-01-20] MEDS: NYSTATIN SUSP 500,000 U/5 ML CUP SWISH-SWAL SCH ×4 (10:56→20:43)
[2017-01-20] MEDS: ALLOPURINOL 100 MG TAB PO SCH (10:57)
[2017-01-20] MEDS: FLUCONAZOLE 400 MG PREMIX BAG 200 ML IV SCH (10:57)
[2017-01-20] MEDS: NYSTAT/DIPHENHY/LIDO MOUTHWASH (Adult) 120ML SWISH-SWAL PRN ×2 (12:00→13:32)
[2017-01-20] MEDS: PROMETHAZINE INJ 25 MG/ML VIAL IV-CENTRAL PRN (12:00)
--- NOTE | 2017-01-20 13:12 | PD.ONC.PN ---
Subjective Subjective Remarks Patient remains afebrile Difficulty swallowing Generalized body aches and pains No bleeding Objective Data Date Time Temp Pulse Resp B/P (MAP) Pulse Ox O2 Delivery O2 Flow Rate FiO2 01/20/17 06:00 94 01/20/17 06:00 17 01/20/17 04:00 82 01/20/17 04:00 98.3 82 12 156/67 (96) 97 01/20/17 03:30 98.3 89 16 144/62 94 01/20/17 02:05 98.4 95 24 109/65 97 01/20/17 02:00 102 01/20/17 00:14 98.5 89 16 114/66 01/20/17 00:00 98.3 88 18 133/62 (85) 97 01/20/17 00:00 88 01/19/17 23:47 98.3 89 17 131/61 97 01/19/17 22:15 26 01/19/17 22:00 95 01/19/17 22:00 16 01/19/17 21:00 142/65 (90) 01/19/17 20:45 98.2 89 18 142/65 92 01/19/17 20:14 98.4 94 19 111/61 97 01/19/17 20:14 98 21 01/19/17 20:00 92 01/19/17 20:00 98.2 92 19 97 01/19/17 19:00 97 Room Air 01/19/17 18:00 88 01/19/17 16:00 98.0 98 16 111/61 (78) 94 01/19/17 16:00 90 01/19/17 14:00 92 01/20/17 01/20/17 01/20/17 07:00 15:00 23:00 Intake Total 4307 ml Output Total 3000 ml Balance 1307 ml Result Diagram: 01/20/17 0454 01/19/17 0855 Laboratory Results Laboratory Tests Test 01/19/17 20:25 01/20/17 04:54 Hemoglobin 6.1 GM/DL 7.5 GM/DL Hematocrit 18.0 % 21.6 % Magnesium Level 1.9 MG/DL Vancomycin Level Trough 22.2 MCG/ML White Blood Count 2.0 TH/MM3 Red Blood Count 2.44 MIL/MM3 Mean Corpuscular Volume 88.3 FL Mean Corpuscular Hemoglobin 30.5 PG Mean Corpuscular Hemoglobin Concent 34.6 % Red Cell Distribution Width 14.2 % Platelet Count 39 TH/MM3 Mean Platelet Volume 9.7 FL Neutrophils (%) (Auto) 60.5 % Lymphocytes (%) (Auto) 36.2 % Monocytes (%) (Auto) 3.1 % Eosinophils (%) (Auto) 0.0 % Basophils (%) (Auto) 0.2 % Neutrophils # (Auto) 1.2 TH/MM3 Lymphocytes # (Auto) 0.7 TH/MM3 Monocytes # (Auto) 0.1 TH/MM3 Eosinophils # (Auto) 0.0 TH/MM3 Basophils # (Auto) 0.0 TH/MM3 CBC Comment AUTO DIFF Differential Total Cells Counted 100 Neutrophils % (Manual) 31 % Band Neutrophils % 14 % Lymphocytes % 38 % Monocytes % 2 % Neutrophils # (Manual) 1.1 TH/MM3 Metamyelocytes 7 % Myelocytes 5 % Differential Comment FINAL DIFF MANUAL Blastocytes 3 % Platelet Estimate LOW Platelet Morphology Comment NORMAL Red Cell Morphology Comment NORMAL Fibrinogen 250 mg/dL Phosphorus Level 2.7 MG/DL Total Bilirubin 0.9 MG/DL Direct Bilirubin 0.3 MG/DL Indirect Bilirubin 0.6 MG/DL Aspartate Amino Transf (AST/SGOT) 15 U/L Alanine Aminotransferase (ALT/SGPT) 26 U/L Alkaline Phosphatase 60 U/L Total Protein 4.5 GM/DL Albumin 1.6 GM/DL Administered Medications Medications (Trade) Dose Ordered Sig/Emma Route PRN Reason Start Time Stop Time Status Last Admin Dose Admin Sodium Chloride (NS Flush) 2 ml UNSCH PRN IV FLUSH FLUSH AFTER USING IV ACCESS 12/25/16 23:00 12/30/16 04:59 Sodium Chloride (NS Flush) 2 ml BID IV FLUSH 12/26/16 09:00 01/19/17 20:38 Acetaminophen (Tylenol) 650 mg Q6H PRN PO FEVER>100.4 12/25/16 23:00 01/18/17 04:53 Benzonatate (Tessalon) 100 mg Q4H PRN PO COUGH 12/26/16 05:15 12/26/16 15:12 Mupirocin (Bactroban 2% Oint) 1 applic TID TOPICAL 12/27/16 14:15 01/16/17 16:51 Sodium Chloride (NS Flush) 5 ml DAILY IV FLUSH 12/30/16 09:00 01/13/17 10:42 Heparin Sodium (Porcine) (Heparin Central Flush) 500 units UNSCH PRN IV FLUSH SEE PROTOCOL TABLE 12/30/16 06:30 12/31/16 15:45 Allopurinol (Zyloprim) 200 mg DAILY PO 01/06/17 09:00 01/20/17 10:57 Hyoscyamine Sulfate (Levsin) 0.25 mg Q4H PRN PO CRAMPS 01/06/17 09:30 01/06/17 10:06 Sucralfate (Carafate Liq) 1 gm ACHS PO 01/09/17 16:00 01/20/17 06:52 Pantoprazole Sodium 80 mg/ Sodium Chloride 100 ml @ 10 mls/hr CONTINUOUS IV 01/11/17 16:00 01/20/17 02:54 Hydromorphone HCl (Dilaudid JET OPERATOR Inj) 6 mg UNSCH IV 01/11/17 15:15 01/19/17 22:15 JET OPERATOR Dosage Infused (Pha) 1 Q8HR OTHER 01/11/17 15:45 01/20/17 06:00 Ondansetron HCl (Zofran Inj) 8 mg Q8H PRN IV PUSH NAUSEA 01/11/17 17:15 Future hold 01/20/17 05:37 Hydromorphone HCl (Dilaudid Pf Inj) 2 mg Q4H PRN IV PUSH SEVERE BREAKTHROUGH PAIN 01/12/17 15:30 01/20/17 12:16 Piperacillin Sod/ Tazobactam Sod 100 ml @ 200 mls/hr Q6H IV 01/13/17 21:00 01/20/17 10:57 Fluconazole/ Sodium Chloride 200 ml @ 100 mls/hr Q24H IV 01/14/17 12:00 01/20/17 10:57 Nystatin (Mycostatin Liq) 5 ml QID SWISH-SWAL 01/14/17 13:00 01/20/17 10:56 Promethazine HCl (Phenergan Inj) 12.5 mg Q4H PRN IV-CENTRAL nausea 01/14/17 16:45 01/16/17 02:25 Multi-Ingredient Mouthwash/Gargle (Magic Mouthwash Adult Liq) 10 ml QID PRN SWISH-SWAL sore throat 01/15/17 06:30 01/18/17 06:14 Potassium Chloride/Dextrose/ Sod Cl 1,000 ml @ 84 mls/hr [id number] IV 01/17/17 13:30 01/20/17 00:19 Aminocaproic Acid (Amicar) 1,000 mg Q6HR PO 01/17/17 12:00 01/20/17 05:37 Acetaminophen (Tylenol) 650 mg Q6H PRN PO WHILE BLOOD INFUSING 01/18/17 10:00 01/19/17 11:31 Diphenhydramine HCl (Benadryl) 25 mg Q4H PRN PO WHILE BLOOD INFUSING 01/18/17 10:00 01/19/17 11:31 Potassium Chloride (KCl) 20 meq Q12HR PO 01/19/17 09:30 01/19/17 20:25 Vancomycin HCl 1500 mg/Sodium Chloride 515 ml @ 257.5 mls/ hr Q8H IV 01/20/17 00:00 01/20/17 00:20 Objective Remarks GENERAL: Obese younger male, resting in bed in no acute distress SKIN: Warm and dry. HEAD: Normocephalic. EYES: No injection or drainage. NECK: Supple, trachea midline. CARDIOVASCULAR: Regular, mildly tachy rhythm RESPIRATORY: Breath sounds equal bilaterally. No accessory muscle use. GASTROINTESTINAL: Abdomen obese. Soft. Nontender. MUSCULOSKELETAL: No cyanosis. SCDs to bilateral lower extremities NEURO: awake and alert, normal speech. moving all extremities. 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 3am. Transfuse 1 unit irr. platelets, 1 unit irr. PRBC's. 01/08: D9. abdominal pain persistent. 2 units pRBC 01/09: D10. 2 additional units pRBC ordered. 1 unit platelets ordered 01/10: D11. 2 units pRBC. 1 unit platelets. + stool hemoccult 01/12: D13: 2 units pRBC. 1 unit platelets. 01/13: D14: 1 unit platelets. BB working to obtain HLA matched platelets 01/14: D15. 2 units HLA matched platelets given. spoke with BB they will have two units HLA matched on hand at all times. EGD today. 01/15: D16: 1 unit platelets, 1 unit pRBC. swelling in neck and face, ?SVC syndrome. CT chest and CT neck ordered 01/16: D 17: 1 unit platelets, [address] chest and neck negative for SVC syndrome. Continue to monitor blood counts. 01/17 D18: Labs pending. Start Amicar 1gm Q6h for overnight coughing up trav blood. Will transfuse for platelets less than 10k and Hgb less than 7.0. 01/18 D19: WBC 1.0, still thrombocytopenic, no bleeding from IV site or gums. Continue plans for platelet transfusion support. Afebrile. 01/19 D20: Patient received therapeutic transfusions 01/20: D21: No transfusion today. No further hematemesis. 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 Patients with rearrangement of CBFB in AML may have a higher risk of RN UROLOGY involvement at diagnosis or at relapse than patients with other types of AML. Inversion 16 or t(16;16), with or without additional chromosome abnormalities, has been associated with complete remission and improved long-term survival. - MUGA scan shows normal EF and no wall motion abnormalities 12/30/2016 - Port placement by IR completed 12/31/16 - Induction chemotherapy started 12/31-- 7+3 regimen with Daunorubicin 90mg/m2 and Cytaribine 100mg/m2-- Dosing capped at BSA of 2 - CMV negative, HIV and Hep B and C negative (2) Neutropenia ICD Codes: D70.9 - Neutropenia, unspecified Status: Acute Plan: 01/18/17. WBC 1.0 no diff, seeming recovery, Abx support continue -- ID following -- On Zosyn +Vanco+ Fluconazole -- Bronchoscopy on 12/28= no growth. -- All BC since hospitalization = no growth (3) Abdominal pain ICD Codes: R10.9 - Unspecified abdominal pain Plan: -- Epigastric area pain--EGD, 01/14 showed thrush and distal esophageal ulcer as well as severe gastritis. -- Amylase, lipase WNL -- CT abdomen/ pelvis shows splenic infarcts; --CTA abdomen shows no mesenteric emboli --Abdominal U/S: shows no acute findings. enlarged liver and spleen. --GI following --on Protonix, Carafate, Zosyn, Vanco, Diflucan +stool hemoccult (4) Pancytopenia ICD Codes: D61.818 - Other pancytopenia Plan: - Check Fibrinogen every other day - Transfuse to keep platelets > 10 - Will need irradiated CMV negative blood products -- transfuse to keep Hb > 7 (5) GIB (gastrointestinal bleeding) ICD Codes: K92.2 - Gastrointestinal hemorrhage, unspecified Plan: 01/19/17. Follow hgb 7.4, transfuse for symptoms. --+ stool hemoccult on 01/09/17 --on Protonix + Carafate --EGD on 01/14 showed distal esophageal ulcer. --monitor serial H/H, transfuse as needed Assessment 1: Day 21 post chemo. 2. Pt with difficulty swallowing and poor po intake. Albumin low. 3. May need to start TPN if nutrition not improving. 4: Await results of potassium level today. 5: Discussed mobilize arms legs to decrease edema, encourage to sit up. 6: No transfusion today; continue to monitor CBC. Attending Statement The exam, history, and the medical decision-making described in the above note were completed with the assistance of the mid-level provider. I reviewed and agree with the findings presented. I attest that I had a [id number] encounter with the patient on the same day, and personally performed and documented my assessment and findings in the medical record poor oral intake. start TPN bone marrow biopsy in am d/w rn o/n events reviewed Problem Qualifiers (1) Acute myelogenous leukemia: Qualified Codes: C92.00 - Acute myeloblastic leukemia, not having achieved remission (2) Neutropenia: Robina Cui Jan 20, 2017 13:12 Joey Santoyo MD Jan 21, 2017 00:26
[2017-01-20] MEDS ORDERED: PHARMACY ORDERED LAB ONE (15:45)
--- NOTE | 2017-01-20 16:38 | HHI.GIFU ---
Subjective Remarks Pt resting in bed, family at bedside. No new complaints. No bleeding. No vomiting. (Shelley Piña) Objective Vitals I&O Vital Signs Date Time Temp Pulse Resp B/P (MAP) Pulse Ox O2 Delivery O2 Flow Rate FiO2 01/20/17 06:00 94 01/20/17 06:00 17 01/20/17 04:00 82 01/20/17 04:00 98.3 82 12 156/67 (96) 97 01/20/17 03:30 98.3 89 16 144/62 94 01/20/17 02:05 98.4 95 24 109/65 97 01/20/17 02:00 102 01/20/17 00:14 98.5 89 16 114/66 01/20/17 00:00 98.3 88 18 133/62 (85) 97 01/20/17 00:00 88 01/19/17 23:47 98.3 89 17 131/61 97 01/19/17 22:15 26 01/19/17 22:00 95 01/19/17 22:00 16 01/19/17 21:00 142/65 (90) 01/19/17 20:45 98.2 89 18 142/65 92 01/19/17 20:14 98.4 94 19 111/61 97 01/19/17 20:14 98 21 01/19/17 20:00 92 01/19/17 20:00 98.2 92 19 97 01/19/17 19:00 97 Room Air 01/19/17 18:00 88 I/O 01/19/17 01/19/17 01/19/17 01/20/17 01/20/17 01/20/17 07:00 15:00 23:00 07:00 15:00 23:00 Intake Total 264 ml 1223 ml 4807 ml 1150 ml 500 ml Output Total 700 ml 3000 ml Balance 264 ml -700 ml 1223 ml 1807 ml 1150 ml 500 ml Intake Oral 400 ml 850 ml IV Total 550 ml 2967 ml 1150 ml 500 ml Packed Cells 800 ml Platelets 214 ml 263 ml Blood Product IV Normal Saline Flush 50 ml 10 ml 190 ml Output Urine Total 700 ml 3000 ml # Voids 1 2 3 # Bowel Movements 1 1 0 Laboratory Laboratory Tests Test 01/19/17 20:25 01/20/17 04:54 Hemoglobin 6.1 7.5 Hematocrit 18.0 21.6 Magnesium Level 1.9 Vancomycin Level Trough 22.2 White Blood Count 2.0 Red Blood Count 2.44 Mean Corpuscular Volume 88.3 Mean Corpuscular Hemoglobin 30.5 Mean Corpuscular Hemoglobin Concent 34.6 Red Cell Distribution Width 14.2 Platelet Count 39 Mean Platelet Volume 9.7 Neutrophils (%) (Auto) 60.5 Lymphocytes (%) (Auto) 36.2 Monocytes (%) (Auto) 3.1 Eosinophils (%) (Auto) 0.0 Basophils (%) (Auto) 0.2 Neutrophils # (Auto) 1.2 Lymphocytes # (Auto) 0.7 Monocytes # (Auto) 0.1 Eosinophils # (Auto) 0.0 Basophils # (Auto) 0.0 CBC Comment AUTO DIFF Differential Total Cells Counted 100 Neutrophils % (Manual) 31 Band Neutrophils % 14 Lymphocytes % 38 Monocytes % 2 Neutrophils # (Manual) 1.1 Metamyelocytes 7 Myelocytes 5 Differential Comment FINAL DIFF MANUAL Blastocytes 3 Platelet Estimate LOW Platelet Morphology Comment NORMAL Red Cell Morphology Comment NORMAL Fibrinogen 250 Potassium Level 3.3 Phosphorus Level 2.7 Total Bilirubin 0.9 Direct Bilirubin 0.3 Indirect Bilirubin 0.6 Aspartate Amino Transf (AST/SGOT) 15 Alanine Aminotransferase (ALT/SGPT) 26 Alkaline Phosphatase 60 Total Protein 4.5 Albumin 1.6 Date/Time Source Procedure Growth Status 01/14/17 01:35 Blood Line Aerobic Blood Culture - Final NO GROWTH IN 5 DAYS Complete 01/14/17 01:35 Blood Line Anaerobic Blood Culture - Final NO GROWTH IN 5 DAYS Complete 12/26/16 17:10 Cerebral Spinal Fluid Lumbar Puncture Acid Fast Stain - Final NO ACID FAST BACILLI SEEN Resulted 12/26/16 17:10 Cerebral Spinal Fluid Lumbar Puncture Mycobacterial Culture - Preliminary NO GROWTH IN 3 WEEKS Resulted 01/09/17 19:57 Stool Stool Stool Occult Blood (SUNDAR) - Final HEMOCCULT POSITIVE Complete 12/28/16 17:50 Bronchial Washings Left Lower Lobe Fungal Smear - Final NO FUNGAL ELEMENTS SEEN. Resulted 12/28/16 17:50 Bronchial Washings Left Lower Lobe Fungal Culture - Preliminary NO GROWTH IN 3 WEEKS Resulted 01/11/17 22:25 Urine Clean Catch Urine Culture - Final NO GROWTH IN 48 HOURS. Complete Physical Exam HEENT: Normocephalic; atraumatic; no jaundice. CHEST: CTA CARDIAC: RRR with no murmur gallop or rubs. ABDOMEN: Soft, obese, nondistended, nontender bowel sounds are present x 4 EXTREMITIES: Generalized edema. SKIN: Generalized pallor LAND AGENT: No focal deficits; alert and oriented x 3. (Shelley Piña) Assessment and Plan Plan ASSESSMENT: - Upper GIB with hematemesis. S/P EGD (01/19/17)----> 1. Severe thrush in the mouth and proximal esophagus to the distal esophagus throughout, biopsy was not done because patient is pancytopenia 2. Esophageal ulcer in the distal esophagus biopsy was not done 3. Gastritis severe throughout the stomach 4. Retroflexed views revealed gastritis. Protonix Gtt. Pt had an episode of n/v after persistent coughing with first dark emesis and then bright red blood- just the one episodeyesterday and none today. Hgb up today 7.5 - Anemia, acute blood loss. hgb increased 7.5 - Severe pancytopenia Requiring multiple transfusions. Requiring HLA matched products Getting Amicar. - Neutropenia. Zosyn, Vanco, Diflucan - Brandon esophagitis. Magic mouthwash, Nystatin, Diflucan. - Dysphagia secondary to brandon esophagitis. Magic mouthwash, Nystatin, Diflucan. - Abdominal pain. CT showing splenic infarct. CTA no mesenteric ischemia, small amount free fluid pelvis. HIDA (pt refused imaging beyond 45 min) but negative for cystic duct obstruction. 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 Now with severe pancytopenia. Per hematology PLAN: - dietary consult for TPN/PPN - Clear liquids - Protonix Gtt - Diflucan - Carafate - Nystatin - Magic mouthwash - Monitor CBC - Transfusions per hematology - Abx per attending - Supportive care - Notify of any further bleeding. - Further recommendations to follow based on results of above - Pt seen and examined by Dr. Huerta and myself and this note is written on his behalf (Shelley Piña) Physician Comments agree (Radha Huerta MD) Shelley Piña Jan 20, 2017 16:38 Radha Huerta MD Jan 20, 2017 17:54
--- NOTE | 2017-01-20 18:49 | HHI.PR ---
Subjective Remarks Resting in bed, no nausea or vomiting no hematemesis today Objective Vitals Vital Signs Date Time Temp Pulse Resp B/P (MAP) Pulse Ox O2 Delivery O2 Flow Rate FiO2 01/20/17 18:00 99 01/20/17 16:00 96 01/20/17 16:00 99.0 99 23 167/71 (103) 95 01/20/17 14:00 92 01/20/17 12:00 99.1 100 21 136/64 (88) 95 01/20/17 12:00 96 01/20/17 10:00 100 01/20/17 08:00 98.0 86 17 155/67 (96) 96 01/20/17 08:00 86 01/20/17 06:00 94 01/20/17 06:00 17 01/20/17 04:00 82 01/20/17 04:00 98.3 82 12 156/67 (96) 97 01/20/17 03:30 98.3 89 16 144/62 94 01/20/17 02:05 98.4 95 24 109/65 97 01/20/17 02:00 102 01/20/17 00:14 98.5 89 16 114/66 01/20/17 00:00 98.3 88 18 133/62 (85) 97 01/20/17 00:00 88 01/19/17 23:47 98.3 89 17 131/61 97 01/19/17 22:15 26 01/19/17 22:00 95 01/19/17 22:00 16 01/19/17 21:00 142/65 (90) 01/19/17 20:45 98.2 89 18 142/65 92 01/19/17 20:14 98.4 94 19 111/61 97 01/19/17 20:14 98 21 01/19/17 20:00 92 01/19/17 20:00 98.2 92 19 97 01/19/17 19:00 97 Room Air I/O 01/19/17 01/19/17 01/19/17 01/20/17 01/20/17 01/20/17 07:00 15:00 23:00 07:00 15:00 23:00 Intake Total 264 ml 1223 ml 4807 ml 1150 ml 2180 ml Output Total 700 ml 3000 ml 3000 ml Balance 264 ml -700 ml 1223 ml 1807 ml 1150 ml -820 ml Intake Oral 400 ml 850 ml 1500 ml IV Total 550 ml 2967 ml 1150 ml 680 ml Packed Cells 800 ml Platelets 214 ml 263 ml Blood Product IV Normal Saline Flush 50 ml 10 ml 190 ml Output Urine Total 700 ml 3000 ml 3000 ml # Voids 1 2 3 # Bowel Movements 1 1 0 1 Result Diagram: 01/20/17 0454 01/20/17 0454 Objective Remarks GENERAL: This is a well-nourished, well-developed patient, in no apparent distress. SKIN: No rashes, warm and dry HEAD: Atraumatic. Normocephalic. EYES: Pupils equal round and reactive. Extraocular motions intact. No scleral icterus. ENT: Nose without bleeding, or drainage, Airway patent. NECK: Trachea midline. Supple CARDIOVASCULAR: Regular rate and rhythm without murmurs, gallops, or rubs. RESPIRATORY: Fair air entry bilaterally. No wheezes, rales, or rhonchi. GASTROINTESTINAL: Abdomen soft, non-tender, nondistended. Positive bowel sounds MUSCULOSKELETAL: Extremities without clubbing, cyanosis, or edema. Pedal pulses appreciated NEUROLOGICAL: Awake and alert. Moves all extremity. Normal speech.no focal neurological deficit Procedures 12/31 [id number]-b-[id number] placement A/P Problem List: (1) SIRS (systemic inflammatory response syndrome) ICD Code: R65.10 - Systemic inflammatory response syndrome (SIRS) of non- infectious origin without acute organ dysfunction Status: Acute (2) GABRIELA (acute kidney injury) ICD Code: N17.9 - Acute kidney failure, unspecified Status: Acute (3) Thrombocytopenia ICD Code: D69.6 - Thrombocytopenia, unspecified Status: Acute (4) Lymphocytosis ICD Code: D72.820 - Lymphocytosis (symptomatic) Status: Acute (5) Anemia ICD Code: D64.9 - Anemia, unspecified Status: Acute Assessment and Plan 01/14: Temperature is 100, increase heart rate 116-123, platelet count is 5 yesterday, CBC 0.3, continue monitoring, CBC for today pending repeat CBC in a.m. EGD 01/14>gasteritis and distal esoph ulcer 01/16:1 pack of weight lifting one pack of packed red blood cells as being transfused today, continue following with hematology oncology, GI signed off, hypokalemia replaced 01/17: Platelet count is 7 today, hemoglobin 7.2, hematocrit 20.9, CBC in a.m., transfusion as needed, hypokalemia> replete and repeat in a.m. 01/18: Platelet count dropped to 4, hemoglobin 6.9 hematocrit 20.1, transfusion for platelet and packed red blood cells ordered , oncology following 01/19: Platelet count and hemoglobin continued to drop, plan for another transfusion of platelets and packed red cells however irradiated platelet is not available, plateletpheresis been ordered by oncology, continue closely monitoring CBC, transfer to ICU per oncology 01/20: Patient had hematemesis yesterday later during the day, much better today , hemoglobin been an platelet improved to 7.9 and 39 respectively, GI oncology planning on TPN for nutrition, ID following patient on Zosyn and Vanco and Diflucan, BMP in a.m. with CBC A/P: Mr. Duarte is 26 yo, with no significant past medical history. -- Neutropenic fever: Continue monitoring for fever per IDs recommendations. Afebrile. Blood cultures show no growth in 5 days x 2. CSF cultures and BAL shows no growth. 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 Patients with rearrangement of CBFB in AML may have a higher risk of LINUX SYSTEM ADMINISTRATOR involvement at diagnosis or at relapse than patients with other types of AML. Inversion 16 or t(16;16), with or without additional chromosome abnormalities, has been associated with complete remission and improved long-term survival. MUGA scan shows normal EF and no wall motion abnormalities 12/30/2016 Port placement by IR completed 12/31/16 - CMV negative, HIV and Hep B and C negative --Abdominal pain - splenic infarcts likely contributing. HIDA shows no significant abnormalities. CTA Abd showing no signs of occlusive atherosclerosis , C.diff negative x 2. On IV Dilaudid for this. Initial stool occults were negative in late January, 01/09 hemoccult positive. carafate, protonix, and abx. H.PYLORI ANTIGEN . Started on Zosyn empirically for possible neutropenic enterocolitis per hem/onc. MRI negative for acute findings. Splenic hemangiomas noted. --Diarrhea - stool studies pending. Lactobacillus added to regimen. C diff negative x 2. 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 Doppler studies negative for DVT. PT/OT eval/tx. IS and acapella use. Kevin Montiel MD Jan 20, 2017 18:48
--- NOTE | 2017-01-20 19:39 | HHI.IDPN ---
Subjective Subjective Remarks delayed entry pt was seen earlier today His abd pian , diarrhea improved He now co sore throat no fever ANC 300-400 pt was transferred to ICU 2/2 GI bleeding Antibiotics zosyn vancomycin Allergies: Coded Allergies: No Known Allergies (Verified , 12/25/16) Objective . Vital Signs Date Time Temp Pulse Resp B/P (MAP) Pulse Ox O2 Delivery O2 Flow Rate FiO2 01/20/17 18:00 99 01/20/17 16:00 96 01/20/17 16:00 99.0 99 23 167/71 (103) 95 01/20/17 14:00 92 01/20/17 12:00 99.1 100 21 136/64 (88) 95 01/20/17 12:00 96 01/20/17 10:00 100 01/20/17 08:00 98.0 86 17 155/67 (96) 96 01/20/17 08:00 86 01/20/17 06:00 94 01/20/17 06:00 17 01/20/17 04:00 82 01/20/17 04:00 98.3 82 12 156/67 (96) 97 01/20/17 03:30 98.3 89 16 144/62 94 01/20/17 02:05 98.4 95 24 109/65 97 01/20/17 02:00 102 01/20/17 00:14 98.5 89 16 114/66 01/20/17 00:00 98.3 88 18 133/62 (85) 97 01/20/17 00:00 88 01/19/17 23:47 98.3 89 17 131/61 97 01/19/17 22:15 26 01/19/17 22:00 95 01/19/17 22:00 16 01/19/17 21:00 142/65 (90) 01/19/17 20:45 98.2 89 18 142/65 92 01/19/17 20:14 98.4 94 19 111/61 97 01/19/17 20:14 98 21 01/19/17 20:00 92 01/19/17 20:00 98.2 92 19 97 01/20/17 01/20/17 01/21/17 15:00 23:00 07:00 Intake Total 1150 ml 2180 ml Output Total 3000 ml Balance 1150 ml -820 ml Intake Oral 1500 ml IV Total 1150 ml 680 ml Output Urine Total 3000 ml # Bowel Movements 1 . Laboratory Tests Test 01/18/17 23:00 01/19/17 08:55 01/19/17 20:25 01/20/17 04:54 White Blood Count 1.0 TH/MM3 1.0 TH/MM3 2.0 TH/MM3 Red Blood Count 2.41 MIL/MM3 2.06 MIL/MM3 2.44 MIL/MM3 Hemoglobin 7.4 GM/DL 6.4 GM/DL 6.1 GM/DL 7.5 GM/DL Hematocrit 21.0 % 18.0 % 18.0 % 21.6 % Mean Corpuscular Volume 87.3 FL 87.6 FL 88.3 FL Mean Corpuscular Hemoglobin 30.5 PG 30.9 PG 30.5 PG Mean Corpuscular Hemoglobin Concent 34.9 % 35.3 % 34.6 % Red Cell Distribution Width 14.0 % 14.1 % 14.2 % Platelet Count 9 TH/MM3 17 TH/MM3 39 TH/MM3 Mean Platelet Volume 8.4 FL 8.7 FL 9.7 FL Neutrophils (%) (Auto) 37.7 % 60.5 % Lymphocytes (%) (Auto) 47.7 % 36.2 % Monocytes (%) (Auto) 14.3 % 3.1 % Eosinophils (%) (Auto) 0.1 % 0.0 % Basophils (%) (Auto) 0.2 % 0.2 % Neutrophils # (Auto) 0.4 TH/MM3 1.2 TH/MM3 Lymphocytes # (Auto) 0.5 TH/MM3 0.7 TH/MM3 Monocytes # (Auto) 0.1 TH/MM3 0.1 TH/MM3 Eosinophils # (Auto) 0.0 TH/MM3 0.0 TH/MM3 Basophils # (Auto) 0.0 TH/MM3 0.0 TH/MM3 CBC Comment AUTO DIFF AUTO DIFF Differential Total Cells Counted 100 100 Neutrophils % (Manual) 15 % 31 % Lymphocytes % 81 % 38 % Monocytes % 2 % 2 % Neutrophils # (Manual) 0.2 TH/MM3 1.1 TH/MM3 Nucleated Red Blood Cells 1 /100 WBC Differential Comment FINAL DIFF MANUAL FINAL DIFF MANUAL Blastocytes 2 % 3 % Platelet Estimate LOW LOW Platelet Morphology Comment NORMAL NORMAL Band Neutrophils % 14 % Metamyelocytes 7 % Myelocytes 5 % Red Cell Morphology Comment NORMAL Laboratory Tests Test 01/19/17 08:55 01/19/17 20:25 01/20/17 04:54 Blood Urea Nitrogen 9 MG/DL Creatinine 0.70 MG/DL Random Glucose 86 MG/DL Total Protein 4.2 GM/DL 4.5 GM/DL Albumin 1.5 GM/DL 1.6 GM/DL Calcium Level 6.9 MG/DL Alkaline Phosphatase 61 U/L 60 U/L Aspartate Amino Transf (AST/SGOT) 9 U/L 15 U/L Alanine Aminotransferase (ALT/SGPT) 23 U/L 26 U/L Total Bilirubin 0.6 MG/DL 0.9 MG/DL Direct Bilirubin 0.3 MG/DL 0.3 MG/DL Sodium Level 136 MEQ/L Potassium Level 3.1 MEQ/L 3.3 MEQ/L Chloride Level 100 MEQ/L Carbon Dioxide Level 27.2 MEQ/L Anion Gap 9 MEQ/L Estimat Glomerular Filtration Rate 139 ML/MIN Protein Corrected Calcium 8.5 MG/DL Indirect Bilirubin 0.3 MG/DL 0.6 MG/DL Magnesium Level 1.9 MG/DL Phosphorus Level 2.7 MG/DL Imaging Last Impressions Upper Extremity Ultrasound 01/19/17 0000 Signed Impressions: Service Date/Time: Thursday, January 19, 2017 08:07 - CONCLUSION: Negative for DVT . Richy Bonner MD FACR Neck CT 01/15/17 0806 Signed Impressions: Service Date/Time: Sunday, January 15, 2017 09:54 - CONCLUSION: Mild sinusitis within the maxillary sinuses, slight scarring right apex of the lung. Patricia Contreras MD Chest CT 01/15/17 0806 Signed Impressions: Service Date/Time: Sunday, January 15, 2017 09:58 - CONCLUSION: Left lung infiltrate has resolved and there is improvement in right lung infiltrates with residual infiltrate remaining. Patricia Contreras MD Abdomen X-Ray 01/13/17 1451 Signed Impressions: Service Date/Time: Friday, January 13, 2017 15:41 - CONCLUSION: Moderate gaseous distention of large and small bowel with appearance most suggestive of ileus Audie Gomez MD Abdomen MRI 01/12/17 0000 Signed Impressions: Service Date/Time: Thursday, January 12, 2017 09:47 - CONCLUSION: No evidence of acute abdominal process. Splenic hemangiomas Humza Decker MD Lower Extremity Ultrasound 01/10/17 0000 Signed Impressions: Service Date/Time: Tuesday, January 10, 2017 21:50 - CONCLUSION: Negative exam with no evidence of deep venous thrombosis. Jose Nicholson MD Hepatobiliary Scan Nuclear Medicine 01/09/17 0000 Signed Impressions: Service Date/Time: Monday, January 09, 2017 10:01 - CONCLUSION: 1. The patient refused imaging beyond 45 minutes. There is activity seen within small bowel and gallbladder with no evidence for cystic duct obstruction. Danie Kelly MD Abdomen/Pelvis CT 01/08/17 0000 Signed Impressions: Service Date/Time: Sunday, January 08, 2017 14:43 - CONCLUSION: 1. No evidence of mesenteric artery stenosis 2. Small amount of free fluid is present in the pelvis Humza Decker MD Abdomen Ultrasound 01/07/17 0000 Signed Impressions: Service Date/Time: December 01:11 - CONCLUSION: 1. No acute findings. Liver enlarged. Spleen mildly prominent at 14 cm. Leander Fiore MD Chest X-Ray 01/03/17 0600 Signed Impressions: Service Date/Time: Tuesday, January 03, 2017 04:42 - CONCLUSION: Normal examination. Right IJ Jagfuo-m-[id number] catheter in excellent position. Lungs are clear. Enrique Ramos MD Port Line Insertion 12/31/16 0000 Signed Impressions: Service Date/Time: December 15:15 - CONCLUSION: Uncomplicated ultrasound and fluoroscopic guided implanted central venous port catheter placement as described in detail above. An 8 [employer] port was placed. Nilson Bonner MD [facility] Nuclear Medicine 12/30/16 0000 Signed Impressions: Service Date/Time: Friday, December 30, 2016 13:16 - CONCLUSION: Negative exam. Calculated ejection fraction of 56%% with adequate wall motion throughout. Bean Dugan MD Bone Biopsy CT 12/28/16 0000 Signed Impressions: Service Date/Time: Wednesday, December 28, 2016 16:53 - CONCLUSION: 1. Uncomplicated CT guided bone marrow aspirate. 2. Uncomplicated CT guided bone marrow biopsy. Grant Jones MD Brain MRI 12/27/16 0000 Signed Impressions: Service Date/Time: Tuesday, December 27, 2016 21:58 - CONCLUSION: Unremarkable study. K. Mendez Contreras MD Lumbar Puncture Fluoroscopy 12/26/16 0000 Signed Impressions: Service Date/Time: Monday, December 26, 2016 17:03 - CONCLUSION: Uncomplicated fluoroscopically guided lumbar puncture with pressures as above. Nilson Bonner MD Head CT 12/25/16 194 Signed Impressions: Service Date/Time: Sunday, December 25, 2016 19:50 - CONCLUSION: Negative noncontrast head CT. Audie Maria MD Physical Exam CONSTITUTIONAL/GENERAL: This is a morbidly obese patient, in some distress 2/2 pain, nausea TUBES/LINES/DRAINS: PORT in place R chest w/o e/o infection SKIN: No jaundice, rashes, or lesions. HEAD: Atraumatic. Normocephalic. EYES: Pupils equal and round and reactive. Extraocular motions intact. No scleral icterus. No injection or drainage. Fundi not examined. ENT: Mild erythema present on oropharynx, jessica exsudadte on tonsills CARDIOVASCULAR: Regular tachycardia without murmurs, gallops, or rubs. No JVD. Peripheral pulses symmetric. Well perfused perifery RESPIRATORY/CHEST: Symmetric, unlabored respirations. Clear to auscultation. Breath sounds equal bilaterally. No wheezes, rales, or rhonchi. GASTROINTESTINAL: Abdomen soft, not tender nondistended. No hepato- splenomegaly, or palpable masses. No guarding. Bowel sounds present. MUSCULOSKELETAL: Extremities without clubbing, cyanosis, or edema. NEUROLOGICAL: Awake and alert. Non focal PSYCHIATRIC: calm and cooperative Assessment & Plan Remarks Acute leukemia, confirmed by BM, started on chemo Sore throat ? candidiasis due to prolonges systemic abx use Pneumonia all w/u neg including coccideomycese AB negative leg /pneumococcus serologies Cont zosyn, change to 4.5 q 6 hrs cont vancomycin add ora; fluconazole dw pt. Alana Daley MD Jan 20, 2017 19:39
[2017-01-20] MEDS ORDERED: FLUCONAZOLE SUSP 40 MG/ML 35 ML BTL PO SCH (19:45)
[2017-01-20] MEDS: ACETAMINOPHEN 325 MG TAB PO PRN (20:44)
[2017-01-20 21:07] LABS: HEMATOCRIT 21.1 % (39.0-51.0)
[2017-01-20 21:17] LABS: REVIEW FLAG FINAL
[2017-01-21] VITALS (13 sets, daily range): BP systolic 139–157; BP diastolic 61–68; PULSE 79–97; RESP 18–23; TEMP 97.6–99.5; O2SAT 94–99
[2017-01-21] MEDS: AMINOCAPROIC ACID 500 MG TAB PO SCH ×5 (00:22→23:50)
[2017-01-21] MEDS: D5-NS + KCL 40 MEQ INJ 1,000 ML IV SCH ×3 (00:34→21:44)
[2017-01-21 01:58] LABS: MEAN CELL VOLUME 87.9 FL (80.0-100.0); MEAN CORPUSCULAR HEMOGLOBIN 30.1 PG (27.0-34.0); MEAN CORPUSCULAR HGB CONC 34.3 % (32.0-36.0); PLATELET COUNT 72 TH/MM3 (150-450); RED BLOOD COUNT 2.32 MIL/MM3 (4.50-5.90); RED CELL DISTRIBUTION WIDTH 14.1 % (11.6-17.2); WHITE BLOOD COUNT 2.5 TH/MM3 (4.0-11.0)
[2017-01-21 01:59] LABS: HEMO FLAGS AUTO DIFF
[2017-01-21 02:02] LABS: HEMATOCRIT 20.4 % (39.0-51.0)
[2017-01-21 02:16] LABS: BICARBONATE 31.6 MEQ/L (21.0-32.0); INDIRECT BILIRUBIN 0.3 MG/DL (0.0-0.8); POTASSIUM 3.4 MEQ/L (3.5-5.1); TOTAL BILIRUBIN ADULT 0.5 MG/DL (0.2-1.0)
[2017-01-21] MEDS: PANTOPRAZOLE INJ 80 MG in SODIUM CHLORIDE 0.9% INJ 100 ML IV SCH (02:46)
[2017-01-21] MEDS: PIPERACIL-TAZO 4.5 GM PREMIX 100 ML IV SCH ×3 (02:51→15:00)
[2017-01-21] MEDS: HYDROmorphone HCL PF 2 MG/ML VIAL IV PUSH PRN ×5 (02:57→23:50)
[2017-01-21 03:19] LABS: BANDS 21 % (0-6); BLASTS 3 % (0-0); CORRECTED NUCLEATED RBC 1 /100 WBC (0-0); DOHLE BODIES PRESENT (NONE SEEN); METAMYELOCYTES 5 % (0-1); MYELOCYTES 4 % (0-0); NEUTROPHIL # MANUAL DIFF 1.5 TH/MM3 (1.8-7.7); POLYS (SEG NEUTROPHILS) 27 % (16-70); PROMYELOCYTES 2 % (0-0); STOMATOCYTES 1+ (NORMAL); WBC DIFF SAMPLE 100
[2017-01-21 03:20] LABS: PLATELET ESTIMATE SMEAR LOW (NORMAL); PLATELET MORPHOLOGY NORMAL (NORMAL); SCAN/DIFF FINAL DIFF MANUAL
[2017-01-21] MEDS ORDERED: PHARMACY ORDERED LAB ONE (04:45)
[2017-01-21] MEDS: PCA - TOTAL MG DILAUDID DELIVERED PER SHIFT OTHER SCH ×3 (06:00→22:00)
[2017-01-21] MEDS: VANCOMYCIN 1,500 MG/NS 500 ML IV SCH ×4 (06:30→13:00)
[2017-01-21 07:08] LABS: CALCIUM-PROTEIN CORRECTED 8.5 MG/DL (8.5-10.1)
[2017-01-21] MEDS: FLUCONAZOLE SUSP 40 MG/ML 35 ML BTL PO SCH (09:00)
[2017-01-21] MEDS: MUPIROCIN 2% OINT 22 GM TUBE TOPICAL SCH ×3 (09:00→17:32)
[2017-01-21] MEDS: Hickman Catheter Daily NS Lock Flush IV FLUSH SCH (09:00)
[2017-01-21] MEDS: SODIUM CHLORIDE 0.9% FLUSH 10 ML FLUSH IV FLUSH SCH ×2 (09:00→21:00)
[2017-01-21] MEDS: SUCRALFATE 1 GM/10 ML CUP PO SCH ×4 (09:43→21:45)
[2017-01-21] MEDS: NYSTATIN SUSP 500,000 U/5 ML CUP SWISH-SWAL SCH ×4 (09:44→21:44)
[2017-01-21] MEDS: ALLOPURINOL 100 MG TAB PO SCH (09:44)
[2017-01-21] MEDS: POTASSIUM CHLORIDE 20 MEQ CONTROLLED RELEASE TAB PO SCH ×2 (09:44→21:45)
[2017-01-21] MEDS: NYSTAT/DIPHENHY/LIDO MOUTHWASH (Adult) 120ML SWISH-SWAL PRN (09:45)
--- NOTE | 2017-01-21 09:50 | HHI.PR ---
Subjective Remarks I received a call from the nurse that the patient refused to go for bone biopsy , and he wants to eat I came to see the patient and explained to him the importance of doing the biopsy in order to evaluate the response of the bone marrow for the chemotherapy Patient was appreciative and understanding and he agreed to go for the biopsy He just feels tired, minimal cough, otherwise no fever or chills, platelet count today improved to 72, hemoglobin 7 Objective Vitals Vital Signs Date Time Temp Pulse Resp B/P (MAP) Pulse Ox O2 Delivery O2 Flow Rate FiO2 01/21/17 06:00 91 01/21/17 06:00 18 01/21/17 06:00 92 01/21/17 04:00 98.3 79 22 141/65 (90) 96 01/21/17 04:00 91 01/21/17 03:27 17 01/21/17 02:00 91 01/21/17 00:00 95 01/21/17 00:00 98.9 97 19 139/63 (88) 94 01/20/17 22:00 92 01/20/17 22:00 24 01/20/17 21:44 22 01/20/17 20:00 90 01/20/17 20:00 98.7 92 24 136/63 (87) 96 01/20/17 18:00 99 01/20/17 16:00 96 01/20/17 16:00 99.0 99 23 167/71 (103) 95 01/20/17 14:00 92 01/20/17 12:00 99.1 100 21 136/64 (88) 95 01/20/17 12:00 96 01/20/17 10:00 100 I/O 01/20/17 01/20/17 01/20/17 01/21/17 01/21/17 01/21/17 07:00 15:00 23:00 07:00 15:00 23:00 Intake Total 4807 ml 1150 ml 2180 ml 1440 ml Output Total 3000 ml 3000 ml 4000 ml Balance 1807 ml 1150 ml -820 ml -2560 ml Intake Oral 850 ml 1500 ml 1440 ml IV Total 2967 ml 1150 ml 680 ml Packed Cells 800 ml Blood Product IV Normal Saline Flush 190 ml Output Urine Total 3000 ml 3000 ml 4000 ml # Voids 3 # Bowel Movements 0 1 Result Diagram: 01/21/1711401/21/17114 Objective Remarks GENERAL: This is a well-nourished, well-developed patient, in no apparent distress. SKIN: No rashes, warm and dry HEAD: Atraumatic. Normocephalic. EYES: Pupils equal round and reactive. Extraocular motions intact. No scleral icterus. ENT: Nose without bleeding, or drainage, Airway patent. NECK: Trachea midline. Supple CARDIOVASCULAR: Regular rate and rhythm without murmurs, gallops, or rubs. RESPIRATORY: Fair air entry bilaterally. No wheezes, rales, or rhonchi. GASTROINTESTINAL: Abdomen soft, non-tender, nondistended. Positive bowel sounds MUSCULOSKELETAL: Extremities without clubbing, cyanosis, or edema. Pedal pulses appreciated NEUROLOGICAL: Awake and alert. Moves all extremity. Normal speech.no focal neurological deficit Procedures 12/31 [id number] placement A/P Problem List: (1) SIRS (systemic inflammatory response syndrome) ICD Code: R65.10 - Systemic inflammatory response syndrome (SIRS) of non- infectious origin without acute organ dysfunction Status: Acute (2) GABRIELA (acute kidney injury) ICD Code: N17.9 - Acute kidney failure, unspecified Status: Acute (3) Thrombocytopenia ICD Code: D69.6 - Thrombocytopenia, unspecified Status: Acute (4) Lymphocytosis ICD Code: D72.820 - Lymphocytosis (symptomatic) Status: Acute (5) Anemia ICD Code: D64.9 - Anemia, unspecified Status: Acute Assessment and Plan 01/14: Temperature is 100, increase heart rate 116-123, platelet count is 5 yesterday, CBC 0.3, continue monitoring, CBC for today pending repeat CBC in a.m. EGD 01/14>gasteritis and distal esoph ulcer 01/16:1 pack of weight lifting one pack of packed red blood cells as being transfused today, continue following with hematology oncology, GI signed off, hypokalemia replaced 01/17: Platelet count is 7 today, hemoglobin 7.2, hematocrit 20.9, CBC in a.m., transfusion as needed, hypokalemia> replete and repeat in a.m. 01/18: Platelet count dropped to 4, hemoglobin 6.9 hematocrit 20.1, transfusion for platelet and packed red blood cells ordered , oncology following 01/19: Platelet count and hemoglobin continued to drop, plan for another transfusion of platelets and packed red cells however irradiated platelet is not available, plateletpheresis been ordered by oncology, continue closely monitoring CBC, transfer to ICU per oncology 01/20: Patient had hematemesis yesterday later during the day, much better today , hemoglobin been an platelet improved to 7.9 and 39 respectively, GI oncology planning on TPN for nutrition, ID following patient on Zosyn and Vanco and Diflucan, BMP in a.m. with CBC 01/21: Stable no acute issues overnight, going for bone biopsy today, initially he refused after I discussed with him and explained the importance of her he agreed, platelet count 72 today, hemoglobin at 7, continue iv antibiotic, TPN possible initiation per oncology A/P: Mr. Duarte is 26 yo, with no significant past medical history. -- Neutropenic fever: Continue monitoring for fever per IDs recommendations. Afebrile. Blood cultures show no growth in 5 days x 2. CSF cultures and BAL shows no growth. 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 Patients with rearrangement of CBFB in AML may have a higher risk of PRODUCTION UTILITY WORKER involvement at diagnosis or at relapse than patients with other types of AML. Inversion 16 or t(16;16), with or without additional chromosome abnormalities, has been associated with complete remission and improved long-term survival. MUGA scan shows normal EF and no wall motion abnormalities 12/30/2016 Port placement by IR completed 12/31/16 - CMV negative, HIV and Hep B and C negative --Abdominal pain - splenic infarcts likely contributing. HIDA shows no significant abnormalities. CTA Abd showing no signs of occlusive atherosclerosis , C.diff negative x 2. On IV Dilaudid for this. Initial stool occults were negative in late January, 9/2 hemoccult positive. carafate, protonix, and abx. H.PYLORI ANTIGEN . Started on Zosyn empirically for possible neutropenic enterocolitis per hem/onc. MRI negative for acute findings. Splenic hemangiomas noted. --Diarrhea - stool studies pending. Lactobacillus added to regimen. C diff negative x 2. 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 Doppler studies negative for DVT. PT/OT eval/tx. IS and acapella use. Kevin Montiel MD Jan 21, 2017 09:50
[2017-01-21] MEDS ORDERED: POTASSIUM CHLORIDE 20 MEQ CONTROLLED RELEASE TAB PO ONE (10:00)
--- NOTE | 2017-01-21 15:01 | PD.ONC.PN ---
Subjective Subjective Remarks Ready for BMB today Wants to try Ensures prior to starting TPN. Objective Data Date Time Temp Pulse Resp B/P (MAP) Pulse Ox O2 Delivery O2 Flow Rate FiO2 01/21/17 06:00 91 01/21/17 06:00 18 01/21/17 06:00 92 01/21/17 04:00 98.3 79 22 141/65 (90) 96 01/21/17 04:00 91 01/21/17 03:27 17 01/21/17 02:00 91 01/21/17 00:00 95 01/21/17 00:00 98.9 97 19 139/63 (88) 94 01/20/17 22:00 92 01/20/17 22:00 24 01/20/17 21:44 22 01/20/17 20:00 90 01/20/17 20:00 98.7 92 24 136/63 (87) 96 01/20/17 18:00 99 01/20/17 16:00 96 01/20/17 16:00 99.0 99 23 167/71 (103) 95 01/21/17 01/21/17 01/21/17 07:00 15:00 23:00 Intake Total 1440 ml Output Total 4000 ml Balance -2560 ml Result Diagram: 01/21/17 0115 01/21/17 011 Laboratory Results Laboratory Tests Test 01/20/17 20:23 01/21/17 01:15 01/21/17 05:00 Hemoglobin 7.2 GM/DL 7.0 GM/DL Hematocrit 21.1 % 20.4 % White Blood Count 2.5 TH/MM3 Red Blood Count 2.32 MIL/MM3 Mean Corpuscular Volume 87.9 FL Mean Corpuscular Hemoglobin 30.1 PG Mean Corpuscular Hemoglobin Concent 34.3 % Red Cell Distribution Width 14.1 % Platelet Count 72 TH/MM3 Mean Platelet Volume 9.2 FL CBC Comment AUTO DIFF Differential Total Cells Counted 100 Neutrophils % (Manual) 27 % Band Neutrophils % 21 % Lymphocytes % 33 % Monocytes % 5 % Neutrophils # (Manual) 1.5 TH/MM3 Metamyelocytes 5 % Myelocytes 4 % Promyelocytes 2 % Nucleated Red Blood Cells 1 /100 WBC Differential Comment FINAL DIFF MANUAL Blastocytes 3 % Dohle Bodies PRESENT Platelet Estimate LOW Platelet Morphology Comment NORMAL Stomatocytes 1+ Blood Urea Nitrogen 4 MG/DL Creatinine 0.75 MG/DL Random Glucose 117 MG/DL Total Protein 4.4 GM/DL Albumin 1.5 GM/DL Calcium Level 7.0 MG/DL Phosphorus Level 3.0 MG/DL Magnesium Level 2.0 MG/DL Alkaline Phosphatase 61 U/L Aspartate Amino Transf (AST/SGOT) 13 U/L Alanine Aminotransferase (ALT/SGPT) 28 U/L Total Bilirubin 0.5 MG/DL Direct Bilirubin 0.2 MG/DL Sodium Level 143 MEQ/L Potassium Level 3.4 MEQ/L Chloride Level 108 MEQ/L Carbon Dioxide Level 31.6 MEQ/L Anion Gap 3 MEQ/L Estimat Glomerular Filtration Rate 128 ML/MIN Protein Corrected Calcium 8.5 MG/DL Indirect Bilirubin 0.3 MG/DL Vancomycin Level Trough 15.6 MCG/ML Administered Medications Medications (Trade) Dose Ordered Sig/Emma Route PRN Reason Start Time Stop Time Status Last Admin Dose Admin Sodium Chloride (NS Flush) 2 ml UNSCH PRN IV FLUSH FLUSH AFTER USING IV ACCESS 12/25/16 23:00 12/30/16 04:59 Sodium Chloride (NS Flush) 2 ml BID IV FLUSH 12/26/16 09:00 01/21/17 09:00 Acetaminophen (Tylenol) 650 mg Q6H PRN PO FEVER>100.4 12/25/16 23:00 01/20/17 20:44 Benzonatate (Tessalon) 100 mg Q4H PRN PO COUGH 12/26/16 05:15 12/26/16 15:12 Mupirocin (Bactroban 2% Oint) 1 applic TID TOPICAL 12/27/16 14:15 01/21/17 13:00 Sodium Chloride (NS Flush) 5 ml DAILY IV FLUSH 12/30/16 09:00 01/13/17 10:42 Heparin Sodium (Porcine) (Heparin Central Flush) 500 units UNSCH PRN IV FLUSH SEE PROTOCOL TABLE 12/30/16 06:30 12/31/16 15:45 Allopurinol (Zyloprim) 200 mg DAILY PO 01/06/17 09:00 01/21/17 09:44 Hyoscyamine Sulfate (Levsin) 0.25 mg Q4H PRN PO CRAMPS 01/06/17 09:30 01/06/17 10:06 Sucralfate (Carafate Liq) 1 gm ACHS PO 01/09/17 16:00 01/21/17 12:00 Pantoprazole Sodium 80 mg/ Sodium Chloride 100 ml @ 10 mls/hr CONTINUOUS IV 01/11/17 16:00 01/21/17 02:46 Hydromorphone HCl (Dilaudid HEAVY EQUIPMENT OPERATOR APPRENTICE Inj) 6 mg UNSCH IV 01/11/17 15:15 01/19/17 22:15 HEAVY EQUIPMENT OPERATOR APPRENTICE Dosage Infused (Pha) 1 Q8HR OTHER 01/11/17 15:45 01/21/17 06:00 Ondansetron HCl (Zofran Inj) 8 mg Q8H PRN IV PUSH NAUSEA 01/11/17 17:15 Future hold 01/20/17 16:23 Hydromorphone HCl (Dilaudid Pf Inj) 2 mg Q4H PRN IV PUSH SEVERE BREAKTHROUGH PAIN 01/12/17 15:30 01/21/17 11:02 Piperacillin Sod/ Tazobactam Sod 100 ml @ 200 mls/hr Q6H IV 01/13/17 21:00 01/21/17 09:44 Nystatin (Mycostatin Liq) 5 ml QID SWISH-SWAL 01/14/17 13:00 01/21/17 13:00 Promethazine HCl (Phenergan Inj) 12.5 mg Q4H PRN IV-CENTRAL nausea 01/14/17 16:45 01/20/17 12:00 Multi-Ingredient Mouthwash/Gargle (Magic Mouthwash Adult Liq) 10 ml QID PRN SWISH-SWAL sore throat 01/15/17 06:30 01/21/17 09:45 Potassium Chloride/Dextrose/ Sod Cl 1,000 ml @ 84 mls/hr [id number] IV 01/17/17 13:30 01/21/17 12:50 Aminocaproic Acid (Amicar) 1,000 mg Q6HR PO 01/17/17 12:00 01/21/17 06:24 Acetaminophen (Tylenol) 650 mg Q6H PRN PO WHILE BLOOD INFUSING 01/18/17 10:00 01/19/17 11:31 Diphenhydramine HCl (Benadryl) 25 mg Q4H PRN PO WHILE BLOOD INFUSING 01/18/17 10:00 01/19/17 11:31 Potassium Chloride (KCl) 20 meq Q12HR PO 01/19/17 09:30 01/21/17 09:44 Vancomycin HCl 1500 mg/Sodium Chloride 515 ml @ 257.5 mls/ hr Q8H IV 01/20/17 21:00 01/21/17 06:30 Objective Remarks GENERAL: Obese younger male, resting in bed in no acute distress SKIN: Warm and dry. HEAD: Normocephalic. EYES: No injection or drainage. NECK: Supple, trachea midline. CARDIOVASCULAR: Regular, mildly tachy rhythm RESPIRATORY: Breath sounds equal bilaterally. No accessory muscle use. GASTROINTESTINAL: Abdomen obese. Soft. Nontender. MUSCULOSKELETAL: No cyanosis. SCDs to bilateral lower extremities NEURO: awake and alert, normal speech. moving all extremities. 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 3am. Transfuse 1 unit irr. platelets, 1 unit irr. PRBC's. 01/08: D9. abdominal pain persistent. 2 units pRBC 01/09: D10. 2 additional units pRBC ordered. 1 unit platelets ordered 01/10: D11. 2 units pRBC. 1 unit platelets. + stool hemoccult 01/12: D13: 2 units pRBC. 1 unit platelets. 01/13: D14: 1 unit platelets. BB working to obtain HLA matched platelets 01/14: D15. 2 units HLA matched platelets given. spoke with BB they will have two units HLA matched on hand at all times. EGD today. 01/15: D16: 1 unit platelets, 1 unit pRBC. swelling in neck and face, ?SVC syndrome. CT chest and CT neck ordered 01/16: D 17: 1 unit platelets, [address] chest and neck negative for SVC syndrome. Continue to monitor blood counts. 01/17 D18: Labs pending. Start Amicar 1gm Q6h for overnight coughing up trav blood. Will transfuse for platelets less than 10k and Hgb less than 7.0. 01/18 D19: WBC 1.0, still thrombocytopenic, no bleeding from IV site or gums. Continue plans for platelet transfusion support. Afebrile. 01/19 D20: Patient received therapeutic transfusions 01/20: D21: No transfusion today. No further hematemesis. 01/21: D22: Transfuse 1 unit PRBC's today. Platelets appear to be recovering. Repeat BMB today -- Preliminary BMB showed 70% blasts in bone marrow -- KIT mutation negative, FLT3 negative -- MUGA scan shows normal ejection fraction with no wall motion abnormalities --POSITIVE for CBFB (16q22) REARRANGEMENT-->++ inv(16)(p13.1q22) or t(16;16) ( p13.1;q22)/CBFB-MYH11--- Favorable Prognosis -->. Patients with rearrangement of CBFB in AML may have a higher risk of BEHAVIORAL HEALTH WORKER involvement at diagnosis or at relapse than patients with other types of AML. Inversion 16 or t(16;16), with or without additional chromosome abnormalities, has been associated with complete remission and improved long-term survival. - MUGA scan shows normal EF and no wall motion abnormalities 12/30/2016 - Port placement by IR completed 12/31/16 - Induction chemotherapy started 12/31-- 7+3 regimen with Daunorubicin 90mg/m2 and Cytaribine 100mg/m2-- Dosing capped at BSA of 2 - CMV negative, HIV and Hep B and C negative (2) Neutropenia ICD Codes: D70.9 - Neutropenia, unspecified Status: Acute Plan: 01/18/17. WBC 1.0 no diff, seeming recovery, Abx support continue -- ID following -- On Zosyn +Vanco+ Fluconazole -- Bronchoscopy on 12/28= no growth. -- All BC since hospitalization = no growth (3) Abdominal pain ICD Codes: R10.9 - Unspecified abdominal pain Plan: -- Epigastric area pain--EGD, 01/14 showed thrush and distal esophageal ulcer as well as severe gastritis. -- Amylase, lipase WNL -- CT abdomen/ pelvis shows splenic infarcts; --CTA abdomen shows no mesenteric emboli --Abdominal U/S: shows no acute findings. enlarged liver and spleen. --GI following --on Protonix, Carafate, Zosyn, Vanco, Diflucan +stool hemoccult (4) Pancytopenia ICD Codes: D61.818 - Other pancytopenia Plan: - Check Fibrinogen every other day - Transfuse to keep platelets > 10 - Will need irradiated CMV negative blood products -- transfuse to keep Hb > 7 (5) GIB (gastrointestinal bleeding) ICD Codes: K92.2 - Gastrointestinal hemorrhage, unspecified Plan: 01/19/17. Follow hgb 7.4, transfuse for symptoms. --+ stool hemoccult on 01/09/17 --on Protonix + Carafate --EGD on 01/14 showed distal esophageal ulcer. --monitor serial H/H, transfuse as needed Assessment 1: Day 22 post chemo. 2. BMB today to evaluate efficacy of induction chemo. 3. Will try Ensures with meals prior to starting TPN; monitor albumin. 4. Electrolytes OK today; on potassium supplement. 5. Transfuse 1 unit irradiated PRBC's today. Problem Qualifiers (1) Acute myelogenous leukemia: Qualified Codes: C92.00 - Acute myeloblastic leukemia, not having achieved remission (2) Neutropenia: Robina Cui Jan 21, 2017 15:01
--- NOTE | 2017-01-21 17:43 | HHI.GIFU ---
Subjective Remarks Resting in bed. No further episodes of hematemesis since he was transferred to unit. D/W patient possible PPN- patient thinks he can try po food and feels that he will be able to get ensure down with each meal. He does not want to start PPN unless he is not able to tolerate po. No n/v. No abdominal pain. Had a brown liquid stool (VizcainoAdilene Platt JERE) Objective Vitals I&O Vital Signs Date Time Temp Pulse Resp B/P (MAP) Pulse Ox O2 Delivery O2 Flow Rate FiO2 01/21/17 16:08 97.9 91 22 153/68 96 01/21/17 15:30 20 01/21/17 14:00 20 01/21/17 10:00 91 01/21/17 08:00 90 01/21/17 06:00 91 01/21/17 06:00 18 01/21/17 06:00 92 01/21/17 04:00 98.3 79 22 141/65 (90) 96 01/21/17 04:00 91 01/21/17 02:00 91 01/21/17 00:00 95 01/21/17 00:00 98.9 97 19 139/63 (88) 94 01/20/17 22:00 92 01/20/17 22:00 24 01/20/17 21:44 22 01/20/17 20:00 90 01/20/17 20:00 98.7 92 24 136/63 (87) 96 01/20/17 18:00 99 I/O 01/20/17 01/20/17 01/20/17 01/21/17 01/21/17 01/21/17 07:00 15:00 23:00 07:00 15:00 23:00 Intake Total 4807 ml 1150 ml 2180 ml 1440 ml Output Total 3000 ml 3000 ml 4000 ml Balance 1807 ml 1150 ml -820 ml -2560 ml Intake Oral 850 ml 1500 ml 1440 ml IV Total 2967 ml 1150 ml 680 ml Packed Cells 800 ml Blood Product IV Normal Saline Flush 190 ml Output Urine Total 3000 ml 3000 ml 4000 ml # Voids 3 # Bowel Movements 0 1 Laboratory Laboratory Tests Test 01/20/17 20:23 01/21/17 01:15 01/21/17 05:00 Hemoglobin 7.2 7.0 Hematocrit 21.1 20.4 White Blood Count 2.5 Red Blood Count 2.32 Mean Corpuscular Volume 87.9 Mean Corpuscular Hemoglobin 30.1 Mean Corpuscular Hemoglobin Concent 34.3 Red Cell Distribution Width 14.1 Platelet Count 72 Mean Platelet Volume 9.2 CBC Comment AUTO DIFF Differential Total Cells Counted 100 Neutrophils % (Manual) 27 Band Neutrophils % 21 Lymphocytes % 33 Monocytes % 5 Neutrophils # (Manual) 1.5 Metamyelocytes 5 Myelocytes 4 Promyelocytes 2 Nucleated Red Blood Cells 1 Differential Comment FINAL DIFF MANUAL Blastocytes 3 Dohle Bodies PRESENT Platelet Estimate LOW Platelet Morphology Comment NORMAL Stomatocytes 1+ Blood Urea Nitrogen 4 Creatinine 0.75 Random Glucose 117 Total Protein 4.4 Albumin 1.5 Calcium Level 7.0 Phosphorus Level 3.0 Magnesium Level 2.0 Alkaline Phosphatase 61 Aspartate Amino Transf (AST/SGOT) 13 Alanine Aminotransferase (ALT/SGPT) 28 Total Bilirubin 0.5 Direct Bilirubin 0.2 Sodium Level 143 Potassium Level 3.4 Chloride Level 108 Carbon Dioxide Level 31.6 Anion Gap 3 Estimat Glomerular Filtration Rate 128 Protein Corrected Calcium 8.5 Indirect Bilirubin 0.3 Vancomycin Level Trough 15.6 Date/Time Source Procedure Growth Status 01/14/17 01:35 Blood Line Aerobic Blood Culture - Final NO GROWTH IN 5 DAYS Complete 01/14/17 01:35 Blood Line Anaerobic Blood Culture - Final NO GROWTH IN 5 DAYS Complete 12/26/16 17:10 Cerebral Spinal Fluid Lumbar Puncture Acid Fast Stain - Final NO ACID FAST BACILLI SEEN Resulted 12/26/16 17:10 Cerebral Spinal Fluid Lumbar Puncture Mycobacterial Culture - Preliminary NO GROWTH IN 3 WEEKS Resulted 01/09/17 19:57 Stool Stool Stool Occult Blood (SUNDAR) - Final HEMOCCULT POSITIVE Complete 12/28/16 17:50 Bronchial Washings Left Lower Lobe Fungal Smear - Final NO FUNGAL ELEMENTS SEEN. Resulted 12/28/16 17:50 Bronchial Washings Left Lower Lobe Fungal Culture - Preliminary NO GROWTH IN 3 WEEKS Resulted 01/11/17 22:25 Urine Clean Catch Urine Culture - Final NO GROWTH IN 48 HOURS. Complete Imaging Last Impressions Upper Extremity Ultrasound 01/19/17 0000 Signed Impressions: Service Date/Time: Thursday, January 19, 2017 08:07 - CONCLUSION: Negative for DVT . Richy Bonner MD FACR Neck CT 01/15/17 0806 Signed Impressions: Service Date/Time: Sunday, January 15, 2017 09:54 - CONCLUSION: Mild sinusitis within the maxillary sinuses, slight scarring right apex of the lung. Patricia Contreras MD Chest CT 01/15/17 0806 Signed Impressions: Service Date/Time: Sunday, January 15, 2017 09:58 - CONCLUSION: Left lung infiltrate has resolved and there is improvement in right lung infiltrates with residual infiltrate remaining. Patricia Contreras MD Abdomen X-Ray 01/13/17 1451 Signed Impressions: Service Date/Time: Friday, January 13, 2017 15:41 - CONCLUSION: Moderate gaseous distention of large and small bowel with appearance most suggestive of ileus Audie Gomez MD Abdomen MRI 01/12/17 0000 Signed Impressions: Service Date/Time: Thursday, January 12, 2017 09:47 - CONCLUSION: No evidence of acute abdominal process. Splenic hemangiomas Humza Decker MD Lower Extremity Ultrasound 01/10/17 0000 Signed Impressions: Service Date/Time: Tuesday, January 10, 2017 21:50 - CONCLUSION: Negative exam with no evidence of deep venous thrombosis. Jose Nicholson MD Hepatobiliary Scan Nuclear Medicine 01/09/17 0000 Signed Impressions: Service Date/Time: Monday, January 09, 2017 10:01 - CONCLUSION: 1. The patient refused imaging beyond 45 minutes. There is activity seen within small bowel and gallbladder with no evidence for cystic duct obstruction. Danie Kelly MD Abdomen/Pelvis CT 01/08/17 0000 Signed Impressions: Service Date/Time: Sunday, January 08, 2017 14:43 - CONCLUSION: 1. No evidence of mesenteric artery stenosis 2. Small amount of free fluid is present in the pelvis Humza Decker MD Abdomen Ultrasound 01/07/17 0000 Signed Impressions: Service Date/Time: December 01:11 - CONCLUSION: 1. No acute findings. Liver enlarged. Spleen mildly prominent at 14 cm. Leander Fiore MD Chest X-Ray 01/03/17 0600 Signed Impressions: Service Date/Time: Tuesday, January 03, 2017 04:42 - CONCLUSION: Normal examination. Right IJ [id number] catheter in excellent position. Lungs are clear. Enrique Ramos MD Port Line Insertion 12/31/16 0000 Signed Impressions: Service Date/Time: December 15:15 - CONCLUSION: Uncomplicated ultrasound and fluoroscopic guided implanted central venous port catheter placement as described in detail above. An 8 [place] Power port was placed. Nilson Bonner MD Gated Heart Nuclear Medicine 12/30/16 0000 Signed Impressions: Service Date/Time: Friday, December 30, 2016 13:16 - CONCLUSION: Negative exam. Calculated ejection fraction of 56%% with adequate wall motion throughout. Bean Dugan MD Bone Biopsy CT 12/28/16 0000 Signed Impressions: Service Date/Time: Wednesday, December 28, 2016 16:53 - CONCLUSION: 1. Uncomplicated CT guided bone marrow aspirate. 2. Uncomplicated CT guided bone marrow biopsy. Grant Jones MD Brain MRI 12/27/16 0000 Signed Impressions: Service Date/Time: Tuesday, December 27, 2016 21:58 - CONCLUSION: Unremarkable study. Patricia Contreras MD Lumbar Puncture Fluoroscopy 12/26/16 0000 Signed Impressions: Service Date/Time: Monday, December 26, 2016 17:03 - CONCLUSION: Uncomplicated fluoroscopically guided lumbar puncture with pressures as above. Nilson Bonner MD Head CT 12/25/16 194 Signed Impressions: Service Date/Time: Sunday, December 25, 2016 19:50 - CONCLUSION: Negative noncontrast head CT. Audie Maria MD Physical Exam HEENT: Normocephalic; atraumatic; no jaundice. CHEST: Resp even/unlabored, diminished breath sounds CARDIAC: RRR with no murmur gallop or rubs. ABDOMEN: Soft, obese, nondistended, nontender bowel sounds are present x 4 EXTREMITIES: Generalized edema. SKIN: Generalized pallor MASTER WELDER: No focal deficits; alert and oriented x 3. (Adilene Vizcaino) Assessment and Plan Plan ASSESSMENT: - Upper GIB with hematemesis. S/P EGD (01/19/17)----> 1. Severe thrush in the mouth and proximal esophagus to the distal esophagus throughout, biopsy was not done because patient is pancytopenia 2. Esophageal ulcer in the distal esophagus biopsy was not done 3. Gastritis severe throughout the stomach 4. Retroflexed views revealed gastritis. Protonix Gtt. Pt had an episode of n/v after persistent coughing with first dark emesis and then bright red blood on 01/19, none since that time. H/H 7.0/20.4. On protonix gtt, if no further vomiting and HH stable in am, will switch to bid dosing. - Anemia, acute blood loss. S/P mutiple transfusions. HH 7.0/20.4. - Severe pancytopenia, Requiring multiple transfusions. Requiring HLA matched products Bone marrow bx tomorrow - Neutropenia. Zosyn, Vanco, Diflucan - Brandon esophagitis. Magic mouthwash, Nystatin, Diflucan. - Dysphagia secondary to brandon esophagitis. Magic mouthwash, Nystatin, Diflucan. States improved. Wants to try diet with ensure prior to starting PPN - Abdominal pain. CT showing splenic infarct. CTA no mesenteric ischemia, small amount free fluid pelvis. HIDA (pt refused imaging beyond 45 min) but negative for cystic duct obstruction. MRI abd no acute processes, splenic hemangiomas. No pain at this time. - Acute myelogenous leukemia. S/P Daunorubicin and Cytarabine per oncology. Now with severe pancytopenia. Per hematology Bone marrow bx tomorrow PLAN: - Soft diet with ensure with each meal - Pt feels his swallowing has improved and wants to try po diet with ensure prior to starting PPN - Protonix Gtt- if hh stable in am and no bleeding, will switch to bid dosing in am - Diflucan - Carafate - Nystatin - Magic mouthwash - Monitor CBC - Transfusions per hematology - Abx per attending - Supportive care - Notify of any further bleeding. - Further recommendations to follow based on results of above - Pt seen and examined by Dr. Huerta and myself and this note is written on his behalf (Adilene Vizcaino) Adilene Vizcaino Jan 21, 2017 17:43 Radha Huerta MD Jan 21, 2017 19:09
--- NOTE | 2017-01-21 19:55 | HHI.IDPN ---
Subjective Subjective Remarks doing better still has sore throat no abd pain ANC > 500 x 2 days remains afebrile Antibiotics zosyn vancomycin Allergies: Coded Allergies: No Known Allergies (Verified , 12/25/16) Objective . Vital Signs Date Time Temp Pulse Resp B/P (MAP) Pulse Ox O2 Delivery O2 Flow Rate FiO2 01/21/17 18:00 96 01/21/17 16:08 97.9 91 22 153/68 96 01/21/17 16:00 97.6 92 18 157/68 (97) 97 01/21/17 16:00 89 01/21/17 15:30 20 01/21/17 14:00 91 01/21/17 14:00 20 01/21/17 12:00 97.9 96 20 152/61 (91) 96 01/21/17 12:00 96 01/21/17 10:00 91 01/21/17 08:00 90 01/21/17 08:00 97.6 88 18 146/65 (92) 97 01/21/17 06:00 91 01/21/17 06:00 18 01/21/17 06:00 92 01/21/17 04:00 98.3 79 22 141/65 (90) 96 01/21/17 04:00 91 01/21/17 02:00 91 01/21/17 00:00 95 01/21/17 00:00 98.9 97 19 139/63 (88) 94 01/20/17 22:00 92 01/20/17 22:00 24 01/20/17 21:44 22 01/20/17 20:00 90 01/20/17 20:00 98.7 92 24 136/63 (87) 96 01/21/17 01/21/17 01/22/17 15:00 23:00 07:00 Intake Total 2500 ml Output Total 3000 ml Balance -500 ml Intake Oral 240 ml IV Total 1960 ml Other 300 ml Output Urine Total 3000 ml . Laboratory Tests Test 01/19/17 20:25 01/20/17 04:54 01/20/17 20:23 01/21/17 01:15 Hemoglobin 6.1 GM/DL 7.5 GM/DL 7.2 GM/DL 7.0 GM/DL Hematocrit 18.0 % 21.6 % 21.1 % 20.4 % White Blood Count 2.0 TH/MM3 2.5 TH/MM3 Red Blood Count 2.44 MIL/MM3 2.32 MIL/MM3 Mean Corpuscular Volume 88.3 FL 87.9 FL Mean Corpuscular Hemoglobin 30.5 PG 30.1 PG Mean Corpuscular Hemoglobin Concent 34.6 % 34.3 % Red Cell Distribution Width 14.2 % 14.1 % Platelet Count 39 TH/MM3 72 TH/MM3 Mean Platelet Volume 9.7 FL 9.2 FL Neutrophils (%) (Auto) 60.5 % Lymphocytes (%) (Auto) 36.2 % Monocytes (%) (Auto) 3.1 % Eosinophils (%) (Auto) 0.0 % Basophils (%) (Auto) 0.2 % Neutrophils # (Auto) 1.2 TH/MM3 Lymphocytes # (Auto) 0.7 TH/MM3 Monocytes # (Auto) 0.1 TH/MM3 Eosinophils # (Auto) 0.0 TH/MM3 Basophils # (Auto) 0.0 TH/MM3 CBC Comment AUTO DIFF AUTO DIFF Differential Total Cells Counted 100 100 Neutrophils % (Manual) 31 % 27 % Band Neutrophils % 14 % 21 % Lymphocytes % 38 % 33 % Monocytes % 2 % 5 % Neutrophils # (Manual) 1.1 TH/MM3 1.5 TH/MM3 Metamyelocytes 7 % 5 % Myelocytes 5 % 4 % Differential Comment FINAL DIFF MANUAL FINAL DIFF MANUAL Blastocytes 3 % 3 % Platelet Estimate LOW LOW Platelet Morphology Comment NORMAL NORMAL Red Cell Morphology Comment NORMAL Promyelocytes 2 % Nucleated Red Blood Cells 1 /100 WBC Dohle Bodies PRESENT Stomatocytes 1+ Laboratory Tests Test 01/19/17 20:25 01/20/17 04:54 01/21/17 01:15 Magnesium Level 1.9 MG/DL 2.0 MG/DL Potassium Level 3.3 MEQ/L 3.4 MEQ/L Phosphorus Level 2.7 MG/DL 3.0 MG/DL Total Bilirubin 0.9 MG/DL 0.5 MG/DL Direct Bilirubin 0.3 MG/DL 0.2 MG/DL Indirect Bilirubin 0.6 MG/DL 0.3 MG/DL Aspartate Amino Transf (AST/SGOT) 15 U/L 13 U/L Alanine Aminotransferase (ALT/SGPT) 26 U/L 28 U/L Alkaline Phosphatase 60 U/L 61 U/L Total Protein 4.5 GM/DL 4.4 GM/DL Albumin 1.6 GM/DL 1.5 GM/DL Blood Urea Nitrogen 4 MG/DL Creatinine 0.75 MG/DL Random Glucose 117 MG/DL Calcium Level 7.0 MG/DL Sodium Level 143 MEQ/L Chloride Level 108 MEQ/L Carbon Dioxide Level 31.6 MEQ/L Anion Gap 3 MEQ/L Estimat Glomerular Filtration Rate 128 ML/MIN Protein Corrected Calcium 8.5 MG/DL Imaging Last Impressions Upper Extremity Ultrasound 01/19/17 0000 Signed Impressions: Service Date/Time: Thursday, January 19, 2017 08:07 - CONCLUSION: Negative for DVT . Richy Bonner MD FACR Neck CT 01/15/17 08 Signed Impressions: Service Date/Time: Sunday, January 15, 2017 09:54 - CONCLUSION: Mild sinusitis within the maxillary sinuses, slight scarring right apex of the lung. Patricia Contreras MD Chest CT 01/15/17805 Signed Impressions: Service Date/Time: Sunday, January 15, 2017 09:58 - CONCLUSION: Left lung infiltrate has resolved and there is improvement in right lung infiltrates with residual infiltrate remaining. Patricia Contreras MD Abdomen X-Ray 01/13/17 1451 Signed Impressions: Service Date/Time: Friday, January 13, 2017 15:41 - CONCLUSION: Moderate gaseous distention of large and small bowel with appearance most suggestive of ileus Audie Gomez MD Abdomen MRI 01/12/17 0000 Signed Impressions: Service Date/Time: Thursday, January 12, 2017 09:47 - CONCLUSION: No evidence of acute abdominal process. Splenic hemangiomas Humza Decker MD Lower Extremity Ultrasound 01/10/17 0000 Signed Impressions: Service Date/Time: Tuesday, January 10, 2017 21:50 - CONCLUSION: Negative exam with no evidence of deep venous thrombosis. Jose Nicholson MD Hepatobiliary Scan Nuclear Medicine 01/09/17 0000 Signed Impressions: Service Date/Time: Monday, January 09, 2017 10:01 - CONCLUSION: 1. The patient refused imaging beyond 45 minutes. There is activity seen within small bowel and gallbladder with no evidence for cystic duct obstruction. Danie Kelly MD Abdomen/Pelvis CT 01/08/17 0000 Signed Impressions: Service Date/Time: Sunday, January 08, 2017 14:43 - CONCLUSION: 1. No evidence of mesenteric artery stenosis 2. Small amount of free fluid is present in the pelvis Humza Decker MD Abdomen Ultrasound 01/07/17 0000 Signed Impressions: Service Date/Time: December 01:11 - CONCLUSION: 1. No acute findings. Liver enlarged. Spleen mildly prominent at 14 cm. Leander Fiore MD Chest X-Ray 01/03/17 0600 Signed Impressions: Service Date/Time: Tuesday, January 03, 2017 04:42 - CONCLUSION: Normal examination. Right IJ Oiefbg-v-Iyxm catheter in excellent position. Lungs are clear. Enrique Ramos MD Port Line Insertion 12/31/16 0000 Signed Impressions: Service Date/Time: December 15:15 - CONCLUSION: Uncomplicated ultrasound and fluoroscopic guided implanted central venous port catheter placement as described in detail above. An 8 [place] Power port was placed. Nilson Bonner MD [facility] Nuclear Medicine 12/30/16 0000 Signed Impressions: Service Date/Time: Friday, December 30, 2016 13:16 - CONCLUSION: Negative exam. Calculated ejection fraction of 56%% with adequate wall motion throughout. Bean Dugan MD Bone Biopsy CT 12/28/16 0000 Signed Impressions: Service Date/Time: Wednesday, December 28, 2016 16:53 - CONCLUSION: 1. Uncomplicated CT guided bone marrow aspirate. 2. Uncomplicated CT guided bone marrow biopsy. Grant Jones MD Brain MRI 12/27/16 0000 Signed Impressions: Service Date/Time: Tuesday, December 27, 2016 21:58 - CONCLUSION: Unremarkable study. Patricia Contreras MD Lumbar Puncture Fluoroscopy 12/26/16 0000 Signed Impressions: Service Date/Time: Monday, December 26, 2016 17:03 - CONCLUSION: Uncomplicated fluoroscopically guided lumbar puncture with pressures as above. Nilson Bonner MD Head CT 12/25/16 194 Signed Impressions: Service Date/Time: Sunday, December 25, 2016 19:50 - CONCLUSION: Negative noncontrast head CT. Audie Maria MD Physical Exam CONSTITUTIONAL/GENERAL: This is a morbidly obese patient, in some distress 2/2 pain, nausea TUBES/LINES/DRAINS: PORT in place R chest w/o e/o infection SKIN: No jaundice, rashes, or lesions. HEAD: Atraumatic. Normocephalic. EYES: Pupils equal and round and reactive. Extraocular motions intact. No scleral icterus. No injection or drainage. Fundi not examined. ENT: No erythema present on oropharynx, minimal exsudadte on tonsills CARDIOVASCULAR: Regular tachycardia without murmurs, gallops, or rubs. No JVD. Peripheral pulses symmetric. Well perfused perifery RESPIRATORY/CHEST: Symmetric, unlabored respirations. Clear to auscultation. Breath sounds equal bilaterally. No wheezes, rales, or rhonchi. GASTROINTESTINAL: Abdomen soft, not tender nondistended. No hepato- splenomegaly, or palpable masses. No guarding. Bowel sounds present. MUSCULOSKELETAL: Extremities without clubbing, cyanosis, or edema. NEUROLOGICAL: Awake and alert. Non focal PSYCHIATRIC: calm and cooperative Assessment & Plan Remarks Acute leukemia, confirmed by BM, started on chemo Sore throat ? candidiasis due to prolonges systemic abx use Prolonged neutropeni a - resolved dc zosyn, change to 4.5 q 6 hrs dc vancomycin cont oral fluconazole schuyler pt. Alana Daley MD Jan 21, 2017 19:55
[2017-01-21] MEDS: ONDANSETRON HCL 4 MG/2 ML VIAL IV PUSH PRN (23:50)
[2017-01-22] VITALS (13 sets, daily range): BP systolic 110–170; BP diastolic 51–77; PULSE 73–105; RESP 18–21; TEMP 96.5–99.5; O2SAT 94–98
[2017-01-22] MEDS: PANTOPRAZOLE INJ 80 MG in SODIUM CHLORIDE 0.9% INJ 100 ML IV SCH ×2 (04:24→09:56)
[2017-01-22] MEDS: PCA - TOTAL MG DILAUDID DELIVERED PER SHIFT OTHER SCH (06:00)
[2017-01-22] MEDS: AMINOCAPROIC ACID 500 MG TAB PO SCH (06:17)
[2017-01-22] MEDS: HYDROmorphone HCL PF 2 MG/ML VIAL IV PUSH PRN ×5 (06:17→23:59)
[2017-01-22 07:56] LABS: BICARBONATE 29.7 MEQ/L (21.0-32.0); MAGNESIUM 2.1 MG/DL (1.5-2.5); POTASSIUM 4.1 MEQ/L (3.5-5.1)
[2017-01-22] MEDS: SUCRALFATE 1 GM/10 ML CUP PO SCH ×4 (08:00→21:13)
[2017-01-22 08:02] LABS: INDIRECT BILIRUBIN 0.5 MG/DL (0.0-0.8); TOTAL BILIRUBIN ADULT 0.8 MG/DL (0.2-1.0)
[2017-01-22 08:04] LABS: HEMATOCRIT 22.2 % (39.0-51.0); MEAN CELL VOLUME 87.1 FL (80.0-100.0); MEAN CORPUSCULAR HEMOGLOBIN 30.8 PG (27.0-34.0); MEAN CORPUSCULAR HGB CONC 35.4 % (32.0-36.0); PLATELET COUNT 130 TH/MM3 (150-450); RED BLOOD COUNT 2.55 MIL/MM3 (4.50-5.90); RED CELL DISTRIBUTION WIDTH 14.4 % (11.6-17.2); WHITE BLOOD COUNT 3.4 TH/MM3 (4.0-11.0)
[2017-01-22 08:38] LABS: HEMO FLAGS AUTO DIFF
[2017-01-22] MEDS: Hickman Catheter Daily NS Lock Flush IV FLUSH SCH (09:00)
[2017-01-22] MEDS: ALLOPURINOL 100 MG TAB PO SCH (09:00)
[2017-01-22] MEDS: FLUCONAZOLE SUSP 40 MG/ML 35 ML BTL PO SCH (09:00)
[2017-01-22] MEDS: POTASSIUM CHLORIDE 20 MEQ CONTROLLED RELEASE TAB PO SCH ×2 (09:00→21:13)
[2017-01-22] MEDS: NYSTATIN SUSP 500,000 U/5 ML CUP SWISH-SWAL SCH ×4 (09:00→21:13)
[2017-01-22] MEDS: HYDROmorphone HCL PCA 6 MG/30 ML IV SCH (09:11)
[2017-01-22] MEDS: SODIUM CHLORIDE 0.9% FLUSH 10 ML FLUSH IV FLUSH SCH ×2 (09:17→21:00)
[2017-01-22] MEDS: MUPIROCIN 2% OINT 22 GM TUBE TOPICAL SCH ×3 (09:18→15:34)
--- NOTE | 2017-01-22 09:52 | PD.ONC.PN ---
Subjective Subjective Remarks Afebrile overnight. Patient reports pain in abdomen is improving. No further bleeding. Ate a bit better yesterday. States sore throat is improving and as sore throat improves he is eating more. Objective Data Date Time Temp Pulse Resp B/P (MAP) Pulse Ox O2 Delivery O2 Flow Rate FiO2 01/22/17 09:11 16 01/22/17 08:00 98.9 105 20 170/75 (106) 96 01/22/17 08:00 105 01/22/17 06:00 90 01/22/17 06:00 20 01/22/17 04:00 99.2 83 19 153/71 (98) 95 01/22/17 04:00 83 01/22/17 02:00 88 01/22/17 00:00 99.5 96 21 162/74 (103) 97 01/22/17 00:00 96 01/21/17 22:00 94 01/21/17 22:00 21 01/21/17 20:00 99.5 92 23 150/66 (94) 99 01/21/17 20:00 92 01/21/17 18:00 96 01/21/17 16:08 97.9 91 22 153/68 96 01/21/17 16:00 97.6 92 18 157/68 (97) 97 01/21/17 16:00 89 01/21/17 15:30 20 01/21/17 14:00 91 01/21/17 14:00 20 01/21/17 12:00 97.9 96 20 152/61 (91) 96 01/21/17 12:00 96 01/21/17 10:00 91 01/22/17 01/22/17 01/22/17 07:00 15:00 23:00 Intake Total 568 ml 1000 ml Output Total 5000 ml Balance -4432 ml 1000 ml Result Diagram: 01/22/17 0645 01/22/17 0645 Laboratory Results Laboratory Tests Test 01/22/17 06:45 White Blood Count 3.4 TH/MM3 Red Blood Count 2.55 MIL/MM3 Hemoglobin 7.8 GM/DL Hematocrit 22.2 % Mean Corpuscular Volume 87.1 FL Mean Corpuscular Hemoglobin 30.8 PG Mean Corpuscular Hemoglobin Concent 35.4 % Red Cell Distribution Width 14.4 % Platelet Count 130 TH/MM3 Mean Platelet Volume 8.5 FL CBC Comment AUTO DIFF Fibrinogen 366 mg/dL Blood Urea Nitrogen 4 MG/DL Creatinine 0.68 MG/DL Random Glucose 91 MG/DL Total Protein 5.2 GM/DL Albumin 1.7 GM/DL Calcium Level 7.7 MG/DL Phosphorus Level 4.1 MG/DL Magnesium Level 2.1 MG/DL Alkaline Phosphatase 74 U/L Aspartate Amino Transf (AST/SGOT) 17 U/L Alanine Aminotransferase (ALT/SGPT) 34 U/L Total Bilirubin 0.8 MG/DL Direct Bilirubin 0.3 MG/DL Sodium Level 140 MEQ/L Potassium Level 4.1 MEQ/L Chloride Level 105 MEQ/L Carbon Dioxide Level 29.7 MEQ/L Anion Gap 5 MEQ/L Estimat Glomerular Filtration Rate 143 ML/MIN Indirect Bilirubin 0.5 MG/DL Administered Medications Medications (Trade) Dose Ordered Sig/Emma Route PRN Reason Start Time Stop Time Status Last Admin Dose Admin Sodium Chloride (NS Flush) 2 ml UNSCH PRN IV FLUSH FLUSH AFTER USING IV ACCESS 12/25/16 23:00 12/30/16 04:59 Sodium Chloride (NS Flush) 2 ml BID IV FLUSH 12/26/16 09:00 01/22/17 09:17 Acetaminophen (Tylenol) 650 mg Q6H PRN PO FEVER>100.4 12/25/16 23:00 01/20/17 20:44 Benzonatate (Tessalon) 100 mg Q4H PRN PO COUGH 12/26/16 05:15 12/26/16 15:12 Mupirocin (Bactroban 2% Oint) 1 applic TID TOPICAL 12/27/16 14:15 01/22/17 09:18 Sodium Chloride (NS Flush) 5 ml DAILY IV FLUSH 12/30/16 09:00 01/13/17 10:42 Heparin Sodium (Porcine) (Heparin Central Flush) 500 units UNSCH PRN IV FLUSH SEE PROTOCOL TABLE 12/30/16 06:30 12/31/16 15:45 Allopurinol (Zyloprim) 200 mg DAILY PO 01/06/17 09:00 01/21/17 09:44 Hyoscyamine Sulfate (Levsin) 0.25 mg Q4H PRN PO CRAMPS 01/06/17 09:30 01/06/17 10:06 Sucralfate (Carafate Liq) 1 gm ACHS PO 01/09/17 16:00 01/21/17 21:45 Pantoprazole Sodium 80 mg/ Sodium Chloride 100 ml @ 10 mls/hr CONTINUOUS IV 01/11/17 16:00 01/21/17 02:46 Ondansetron HCl (Zofran Inj) 8 mg Q8H PRN IV PUSH NAUSEA 01/11/17 17:15 Future hold 01/21/17 23:50 Hydromorphone HCl (Dilaudid Pf Inj) 2 mg Q4H PRN IV PUSH SEVERE BREAKTHROUGH PAIN 01/12/17 15:30 01/22/17 06:17 Nystatin (Mycostatin Liq) 5 ml QID SWISH-SWAL 01/14/17 13:00 01/21/17 21:44 Promethazine HCl (Phenergan Inj) 12.5 mg Q4H PRN IV-CENTRAL nausea 01/14/17 16:45 01/20/17 12:00 Multi-Ingredient Mouthwash/Gargle (Magic Mouthwash Adult Liq) 10 ml QID PRN SWISH-SWAL sore throat 01/15/17 06:30 01/21/17 09:45 Potassium Chloride/Dextrose/ Sod Cl 1,000 ml @ 84 mls/hr [id number] IV 01/17/17 13:30 01/21/17 21:44 Acetaminophen (Tylenol) 650 mg Q6H PRN PO WHILE BLOOD INFUSING 01/18/17 10:00 01/19/17 11:31 Diphenhydramine HCl (Benadryl) 25 mg Q4H PRN PO WHILE BLOOD INFUSING 01/18/17 10:00 01/19/17 11:31 Potassium Chloride (KCl) 20 meq Q12HR PO 01/19/17 09:30 01/21/17 21:45 Objective Remarks GENERAL: Young man, lying supine in bed in nad. SKIN: Warm and dry. peripheral IV's without bleeding. HEAD: Normocephalic. EYES: No injection or drainage. NECK: Supple, trachea midline. CARDIOVASCULAR: Regular rate and rhythm RESPIRATORY: Breath sounds equal bilaterally. No accessory muscle use. GASTROINTESTINAL: Abdomen soft, non-tender, nondistended. EXTREMITIES: No cyanosis. peripheral edema noted in all extremities. NEUROLOGICAL: No obvious focal deficit. Awake, alert, and oriented x3. 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 3am. Transfuse 1 unit irr. platelets, 1 unit irr. PRBC's. 01/08: D9. abdominal pain persistent. 2 units pRBC 01/09: D10. 2 additional units pRBC ordered. 1 unit platelets ordered 01/10: D11. 2 units pRBC. 1 unit platelets. + stool hemoccult 01/12: D13: 2 units pRBC. 1 unit platelets. 01/13: D14: 1 unit platelets. BB working to obtain HLA matched platelets 01/14: D15. 2 units HLA matched platelets given. spoke with BB they will have two units HLA matched on hand at all times. EGD today. 01/15: D16: 1 unit platelets, 1 unit pRBC. swelling in neck and face, ?SVC syndrome. CT chest and CT neck ordered 01/16: D 17: 1 unit platelets, [address] chest and neck negative for SVC syndrome. Continue to monitor blood counts. 01/17 D18: Labs pending. Start Amicar 1gm Q6h for overnight coughing up trav blood. Will transfuse for platelets less than 10k and Hgb less than 7.0. 01/18 D19: WBC 1.0, still thrombocytopenic, no bleeding from IV site or gums. Continue plans for platelet transfusion support. Afebrile. 01/19 D20: Patient received therapeutic transfusions 01/20: D21: No transfusion today. No further hematemesis. 01/21: D22: Transfuse 1 unit PRBC's today. Platelets appear to be recovering. 01/22: D23. repeat BMB today. d/c SPANNER OPERATOR. encourage patient to start mobilizing more. 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 Patients with rearrangement of CBFB in AML may have a higher risk of PLATE COLORER involvement at diagnosis or at relapse than patients with other types of AML. Inversion 16 or t(16;16), with or without additional chromosome abnormalities, has been associated with complete remission and improved long-term survival. - MUGA scan shows normal EF and no wall motion abnormalities 12/30/2016 - Port placement by IR completed 12/31/16 - Induction chemotherapy started 12/31-- 7+3 regimen with Daunorubicin 90mg/m2 and Cytaribine 100mg/m2-- Dosing capped at BSA of 2 - CMV negative, HIV and Hep B and C negative (2) Abdominal pain ICD Codes: R10.9 - Unspecified abdominal pain Plan: -- Epigastric area pain--EGD, 01/14 showed thrush and distal esophageal ulcer as well as severe gastritis. -- Amylase, lipase WNL -- CT abdomen/ pelvis shows splenic infarcts; --CTA abdomen shows no mesenteric emboli --Abdominal U/S: shows no acute findings. enlarged liver and spleen. --GI following --on Protonix, Carafate, Diflucan +stool hemoccult (3) Pancytopenia ICD Codes: D61.818 - Other pancytopenia Plan: - Check Fibrinogen every other day - Transfuse to keep platelets > 10 - Will need irradiated CMV negative blood products -- transfuse to keep Hb > 7 (4) GIB (gastrointestinal bleeding) ICD Codes: K92.2 - Gastrointestinal hemorrhage, unspecified Plan: --+ stool hemoccult on 01/09/17 --on Protonix + Carafate --EGD on 01/14 showed distal esophageal ulcer. --monitor serial H/H, transfuse as needed Assessment 1. transfer back to 2. encourage patient to mobilize more. will d/c SPANNER OPERATOR to help facilitate this 3. BMB today 4. continue ensure with meals. encourage oral intake. 5. d/c Amicar Attending Statement The exam, history, and the medical decision-making described in the above note were completed with the assistance of the mid-level provider. I reviewed and agree with the findings presented. I attest that I had a mpql-bo-[id number] encounter with the patient on the same day, and personally performed and documented my assessment and findings in the medical record. Had bone marrow biopsy today had refused last week d/c protonix drip IVF at [facility] encourage oral intake No blood products today Oral candidiasis and esophagitis--on fluconazole IV and magic mouth wash d/w rn o/n events reviewed Problem Qualifiers (1) Acute myelogenous leukemia: Qualified Codes: C92.00 - Acute myeloblastic leukemia, not having achieved remission Fartun Pagan Jan 22, 2017 09:52 Joey Santoyo MD Jan 22, 2017 23:01
[2017-01-22] MEDS: D5-NS + KCL 40 MEQ INJ 1,000 ML IV SCH ×2 (09:56→21:17)
[2017-01-22 10:03] LABS: BANDS 23 % (0-6); BLASTS 3 % (0-0); CORRECTED NUCLEATED RBC 3 /100 WBC (0-0); METAMYELOCYTES 7 % (0-1); MYELOCYTES 8 % (0-0); NEUTROPHIL # MANUAL DIFF 2.3 TH/MM3 (1.8-7.7); PLATELET ESTIMATE SMEAR LOW (NORMAL); PLATELET MORPHOLOGY NORMAL (NORMAL); POLYS (SEG NEUTROPHILS) 28 % (16-70); PROMYELOCYTES 2 % (0-0); SCAN/DIFF FINAL DIFF MANUAL; WBC DIFF SAMPLE 100
[2017-01-22] MEDS ORDERED: LIDOCAINE HCL 1% 20 ML VIAL ONE (12:16)
[2017-01-22] MEDS ORDERED: MIDAZOLAM HCL 5 MG/5 ML VIAL ONE (12:24)
[2017-01-22] MEDS ORDERED: PHARMACY ORDERED LAB ONE (12:45)
[2017-01-22 14:19] LABS: CALCIUM-PROTEIN CORRECTED 8.8 MG/DL (8.5-10.1)
[2017-01-22 14:38] LABS: BONE MARROW PROCESSING COMPLETE; IRON STAIN DONE; JENNER GIEMSA STAIN DONE
--- NOTE | 2017-01-22 14:44 | RADRPT ---
EXAM DATE/TIME: 01/22/2017 13:16 [place] COMPARISON: No previous studies available for comparison. INDICATIONS : Leukemia. SEDATION TIME: 15 minutes BIOPSY SITE: Right iliac MEDICATION(S): 1.) 3.5 mg midazolam (Versed) IV 2.) 175 mcg fentanyl (Sublimaze) IV DEVICE(S): 1.) 11 gauge Bone marrow biopsy needle MEDICAL HISTORY : Leukemia. SURGICAL HISTORY : None. ENCOUNTER: Initial ACUITY: 1 day PAIN SCORE: 0/10 LOCATION: Right pelvis A total of one core specimen(s) were obtained and sent to the laboratory for pathologic evaluation. PROCEDURE: 1. CT guided bone marrow biopsy. 2. Conscious sedation with continuous EKG and oximetry monitoring. Prior to the procedure informed consent was obtained. Any appropriate prior imaging studies were rev iewed. Using automated exposure control and adjustment of the mA and/or kV according to patient size , radiation dose was kept as low as reasonably achievable to obtain optimal diagnostic quality images . DICOM format image data is available electronically for review and comparison. The site was prepped in a sterile fashion. Full sterile technique was used, including cap, mask, iris rile gloves and gown and a large sterile sheet. Hand hygiene and 2% chlorhexidine and/or betadine/al cohol prep was utilized per protocol for cutaneous antisepsis. The skin and subcutaneous tissues wer e infiltrated with local anesthetic solution. With CT guidance the previously identified target was localized. Biopsy was performed using the presc ribed needle as above. Following biopsy marrow aspiration was performed with repeat puncture. [place] te hemostasis was obtained with compression at the puncture site. Follow-up CT scan reveals no hemorrhage. Conscious sedation was performed with the prescribed dosages and duration as above in the presence of an independent trained radiology nurse to assist in the monitoring of the patient. EKG and oximetry remained stable throughout the procedure. The patient tolerated the procedure well and there were no complications. The patient was sent to Radiology Outpatient Unit in stable condition. CONCLUSION: 1. Uncomplicated CT guided bone marrow aspirate. 2. Uncomplicated CT guided bone marrow biopsy. Garcia Tello MD on January 22, 2017 at 14:42 Board Certified Radiologist. This report was verified electronically.
--- NOTE | 2017-01-22 18:00 | HHI.PR ---
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 Objective Vitals Vital Signs Date Time Temp Pulse Resp B/P (MAP) Pulse Ox O2 Delivery O2 Flow Rate FiO2 01/22/17 15:00 96.5 81 20 110/51 (70) 98 01/22/17 15:00 77 18 166/76 (106) 97 01/22/17 14:30 76 18 165/75 (105) 96 01/22/17 14:15 73 18 157/77 (103) 98 01/22/17 14:00 97.6 92 20 146/74 (98) 94 01/22/17 12:57 16 01/22/17 12:00 85 01/22/17 12:00 98.4 85 18 155/64 (94) 96 01/22/17 12:00 16 01/22/17 10:00 93 01/22/17 09:11 16 01/22/17 08:00 98.9 105 20 170/75 (106) 96 01/22/17 08:00 105 01/22/17 06:00 90 01/22/17 06:00 20 01/22/17 04:00 99.2 83 19 153/71 (98) 95 01/22/17 04:00 83 01/22/17 02:00 88 01/22/17 00:00 99.5 96 21 162/74 (103) 97 01/22/17 00:00 96 01/21/17 22:00 94 01/21/17 22:00 21 01/21/17 20:00 99.5 92 23 150/66 (94) 99 01/21/17 20:00 92 01/21/17 18:00 96 I/O 01/21/17 01/21/17 01/21/17 01/22/17 01/22/17 01/22/17 07:00 15:00 23:00 07:00 15:00 23:00 Intake Total 1440 ml 3500 ml 568 ml 1000 ml Output Total 4000 ml 3000 ml 5000 ml Balance -2560 ml 500 ml -4432 ml 1000 ml Intake Oral 1440 ml 240 ml 480 ml IV Total 2960 ml 88 ml 1000 ml Other 300 ml Output Urine Total 4000 ml 3000 ml 5000 ml # Bowel Movements 1 Result Diagram: 01/22/17 0645 01/22/17 0645 Objective Remarks GENERAL: This is a well-nourished, well-developed patient, in no apparent distress. SKIN: No rashes, warm and dry HEAD: Atraumatic. Normocephalic. EYES: Pupils equal round and reactive. Extraocular motions intact. No scleral icterus. ENT: Nose without bleeding, or drainage, Airway patent. NECK: Trachea midline. Supple CARDIOVASCULAR: Regular rate and rhythm without murmurs, gallops, or rubs. RESPIRATORY: Fair air entry bilaterally. No wheezes, rales, or rhonchi. GASTROINTESTINAL: Abdomen soft, non-tender, nondistended. Positive bowel sounds MUSCULOSKELETAL: Extremities without clubbing, cyanosis, or edema. Pedal pulses appreciated NEUROLOGICAL: Awake and alert. Moves all extremity. Normal speech.no focal neurological deficit Procedures 12/31 Ltdoxd-e-Bpbn placement A/P Problem List: (1) SIRS (systemic inflammatory response syndrome) ICD Code: R65.10 - Systemic inflammatory response syndrome (SIRS) of non- infectious origin without acute organ dysfunction Status: Acute (2) GABRIELA (acute kidney injury) ICD Code: N17.9 - Acute kidney failure, unspecified Status: Acute (3) Thrombocytopenia ICD Code: D69.6 - Thrombocytopenia, unspecified Status: Acute (4) Lymphocytosis ICD Code: D72.820 - Lymphocytosis (symptomatic) Status: Acute (5) Anemia ICD Code: D64.9 - Anemia, unspecified Status: Acute Assessment and Plan A/P: Mr. Duarte is 26 yo, with no significant past medical history. -- Neutropenic fever: Continue monitoring for fever per IDs recommendations. Afebrile. Blood cultures show no growth in 5 days x 2. CSF cultures and BAL shows no growth. 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 Patients with rearrangement of CBFB in AML may have a higher risk of ASSISTANT TO THE VICE PRESIDENT involvement at diagnosis or at relapse than patients with other types of AML. Inversion 16 or t(16;16), with or without additional chromosome abnormalities, has been associated with complete remission and improved long-term survival. MUGA scan shows normal EF and no wall motion abnormalities 12/30/2016 Port placement by IR completed 12/31/16 EGD 01/14>gasteritis and distal esoph ulcer . Patient is status post multiple transfusions for PRBC and platelet per oncology - CMV negative, HIV and Hep B and C negative --Abdominal pain - splenic infarcts likely contributing. HIDA shows no significant abnormalities. CTA Abd showing no signs of occlusive atherosclerosis , C.diff negative x 2. On IV Dilaudid for this. Initial stool occults were negative in late January, 01/09 hemoccult positive. carafate, protonix, and abx. H.PYLORI ANTIGEN . Started on Zosyn empirically for possible neutropenic enterocolitis per hem/onc. MRI negative for acute findings. Splenic hemangiomas noted. --Diarrhea - stool studies pending. Lactobacillus added to regimen. C diff negative x 2. 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 Doppler studies negative for DVT. PT/OT eval/tx. IS and acapella use. Kevin Montiel MD Jan 22, 2017 18:00
[2017-01-22] MEDS: ONDANSETRON HCL 4 MG/2 ML VIAL IV PUSH PRN (19:57)
[2017-01-23] VITALS (8 sets, daily range): BP systolic 125–158; BP diastolic 57–78; PULSE 85–97; RESP 18–22; TEMP 96.7–98; O2SAT 94–97
[2017-01-23] MEDS: HYDROmorphone HCL PF 2 MG/ML VIAL IV PUSH PRN ×5 (06:25→21:34)
[2017-01-23] MEDS: SUCRALFATE 1 GM/10 ML CUP PO SCH ×4 (06:25→21:31)
[2017-01-23 07:30] LABS: BASOPHIL % 0.1 % (0.0-2.0); HEMATOCRIT 23.6 % (39.0-51.0); LYMPH % 30.7 % (9.0-44.0); MEAN CELL VOLUME 87.3 FL (80.0-100.0); MEAN CORPUSCULAR HEMOGLOBIN 29.6 PG (27.0-34.0); MEAN CORPUSCULAR HGB CONC 33.9 % (32.0-36.0); MONO % 8.7 % (0.0-8.0); NEUT % 60.5 % (16.0-70.0); PLATELET COUNT 210 TH/MM3 (150-450); RED BLOOD COUNT 2.71 MIL/MM3 (4.50-5.90); RED CELL DISTRIBUTION WIDTH 14.2 % (11.6-17.2); WHITE BLOOD COUNT 3.3 TH/MM3 (4.0-11.0)
--- NOTE | 2017-01-23 07:49 | HHI.PR ---
Subjective Remarks resting comfortably with no distress. had some epigastric pain last night which is better now. no nausea or vomiting. remains afebrile. Objective Vitals Vital Signs Date Time Temp Pulse Resp B/P (MAP) Pulse Ox O2 Delivery O2 Flow Rate FiO2 01/23/17 04:30 98.0 89 19 158/78 (104) 97 01/23/17 04:00 89 01/23/17 00:00 85 01/23/17 00:00 97.4 88 22 127/58 (81) 97 01/22/17 21:00 83 01/22/17 20:00 97.5 80 18 114/56 (75) 98 01/22/17 15:00 96.5 81 20 110/51 (70) 98 01/22/17 15:00 77 18 166/76 (106) 97 01/22/17 14:30 76 18 165/75 (105) 96 01/22/17 14:15 73 18 157/77 (103) 98 01/22/17 14:00 97.6 92 20 146/74 (98) 94 01/22/17 12:57 16 01/22/17 12:00 85 01/22/17 12:00 98.4 85 18 155/64 (94) 96 01/22/17 12:00 16 01/22/17 10:00 93 01/22/17 09:11 16 01/22/17 08:00 98.9 105 20 170/75 (106) 96 01/22/17 08:00 105 I/O 01/22/17 01/22/17 01/22/17 01/23/17 01/23/17 01/23/17 07:00 15:00 23:00 07:00 15:00 23:00 Intake Total 568 ml 1000 ml 600 ml 1000 ml Output Total 5000 ml 1000 ml 3700 ml Balance -4432 ml 1000 ml -400 ml -2700 ml Intake Oral 480 ml 600 ml 1000 ml IV Total 88 ml 1000 ml Output Urine Total 5000 ml 1000 ml 3700 ml # Bowel Movements 1 0 Result Diagram: 01/22/17 0645 01/22/17 0645 Imaging Last Impressions Bone Biopsy CT 01/22/17 0000 Signed Impressions: Service Date/Time: Sunday, January 22, 2017 13:16 - CONCLUSION: 1. Uncomplicated CT guided bone marrow aspirate. 2. Uncomplicated CT guided bone marrow biopsy. Garcia Tello MD Upper Extremity Ultrasound 01/19/17 0000 Signed Impressions: Service Date/Time: Thursday, January 19, 2017 08:07 - CONCLUSION: Negative for DVT . Richy Bonner MD FACR Neck CT 01/15/1706 Signed Impressions: Service Date/Time: Sunday, January 15, 2017 09:54 - CONCLUSION: Mild sinusitis within the maxillary sinuses, slight scarring right apex of the lung. Patricia Contreras MD Chest CT 01/15/17805 Signed Impressions: Service Date/Time: Sunday, January 15, 2017 09:58 - CONCLUSION: Left lung infiltrate has resolved and there is improvement in right lung infiltrates with residual infiltrate remaining. Patricia Contreras MD Abdomen X-Ray 01/13/17 1451 Signed Impressions: Service Date/Time: Friday, January 13, 2017 15:41 - CONCLUSION: Moderate gaseous distention of large and small bowel with appearance most suggestive of ileus Audie Gomez MD Abdomen MRI 01/12/17 0000 Signed Impressions: Service Date/Time: Thursday, January 12, 2017 09:47 - CONCLUSION: No evidence of acute abdominal process. Splenic hemangiomas Humza Decker MD Lower Extremity Ultrasound 01/10/17 0000 Signed Impressions: Service Date/Time: Tuesday, January 10, 2017 21:50 - CONCLUSION: Negative exam with no evidence of deep venous thrombosis. Jose Nicholson MD Hepatobiliary Scan Nuclear Medicine 01/09/17 0000 Signed Impressions: Service Date/Time: Monday, January 09, 2017 10:01 - CONCLUSION: 1. The patient refused imaging beyond 45 minutes. There is activity seen within small bowel and gallbladder with no evidence for cystic duct obstruction. Danie Kelly MD Abdomen/Pelvis CT 01/08/17 0000 Signed Impressions: Service Date/Time: Sunday, January 08, 2017 14:43 - CONCLUSION: 1. No evidence of mesenteric artery stenosis 2. Small amount of free fluid is present in the pelvis Humza Decker MD Abdomen Ultrasound 01/07/17 0000 Signed Impressions: Service Date/Time: , January 07, 2017 01:11 - CONCLUSION: 1. No acute findings. Liver enlarged. Spleen mildly prominent at 14 cm. Leander Fiore MD Chest X-Ray 01/03/17 0600 Signed Impressions: Service Date/Time: Tuesday, January 03, 2017 04:42 - CONCLUSION: Normal examination. Right IJ [id number] catheter in excellent position. Lungs are clear. Enrique Ramos MD Port Line Insertion 12/31/16 0000 Signed Impressions: Service Date/Time: December 15:15 - CONCLUSION: Uncomplicated ultrasound and fluoroscopic guided implanted central venous port catheter placement as described in detail above. An 8 [employer] port was placed. Nilson Bonner MD Gated Heart Nuclear Medicine 12/30/16 0000 Signed Impressions: Service Date/Time: Friday, December 30, 2016 13:16 - CONCLUSION: Negative exam. Calculated ejection fraction of 56%% with adequate wall motion throughout. Bean Dugan MD Brain MRI 12/27/16 0000 Signed Impressions: Service Date/Time: Tuesday, December 27, 2016 21:58 - CONCLUSION: Unremarkable study. Patricia Contreras MD Lumbar Puncture Fluoroscopy 12/26/16 0000 Signed Impressions: Service Date/Time: Monday, December 26, 2016 17:03 - CONCLUSION: Uncomplicated fluoroscopically guided lumbar puncture with pressures as above. Nilson Bonner MD Head CT 12/25/16 194 Signed Impressions: Service Date/Time: Sunday, December 25, 2016 19:50 - CONCLUSION: Negative noncontrast head CT. Audie Maria MD Objective Remarks GENERAL: This is a well-nourished, well-developed patient, in no apparent distress. CARDIOVASCULAR: Regular rate and regular rhythm without murmurs, gallops, or rubs. RESPIRATORY: Clear to auscultation. Breath sounds equal bilaterally. No wheezes , rales, or rhonchi. GASTROINTESTINAL: Abdomen soft, non-tender, nondistended. Normal, active bowel sounds MUSCULOSKELETAL: Extremities without clubbing, cyanosis, or edema. NEURO: Alert & Oriented x4 to person, place, time, situation. Moves all ext x4 Procedures 12/31 Czchbg-b-[id number] placement bone biopsy Medications and IVs Current Medications Acetaminophen (Tylenol) 650 mg ONCE ONCE PO Last administered on 12/25/16t 20: 28; Start 12/25/16 at 19:45; Stop 12/25/16 at 19:46; Status DC Sodium Chloride 1,000 ml @ 1,000 mls/hr Q1H ONCE IV Last administered on 20:27; Start 12/25/16 at 19:41; Stop 12/25/16 at 20:40; Status DC Sodium Chloride 1,000 ml @ 1,000 mls/hr Q1H ONCE IV Last administered on 20:41; Start 12/25/16 at 19:41; Stop 12/25/16 at 20:40; Status DC Sodium Chloride 1,000 ml @ 1,000 mls/hr Q1H ONCE IV Last administered on 21:09; Start 12/25/16 at 19:41; Stop 12/25/16 at 20:40; Status DC Sodium Chloride 900 ml @ 1,000 mls/hr Q54M ONCE IV Last administered on 21:46; Start 12/25/16 at 19:41; Stop 12/25/16 at 20:34; Status DC Prochlorperazine Edisylate (Compazine Inj) 10 mg ONCE ONCE IV PUSH Last administered on 12/25/16 20:28; Start 12/25/16 at 19:45; Stop 12/25/16 at 19:46 ; Status DC Diphenhydramine HCl (Benadryl Inj) 25 mg ONCE ONCE IV PUSH Last administered on 12/25/16 20:27; Start 12/25/16 at 19:45; Stop 12/25/16 at 19:46; Status DC Cefepime HCl 2000 mg/Sodium Chloride 100 ml @ 200 mls/hr ONCE STAT IV Last administered on 12/25/16 21:46; Start 12/25/16 at 21:13; Stop 12/25/16 at 21:42 ; Status DC Pharmacy Profile Note 0 ml @ 0 mls/hr UNSCH OTHER ; Start 12/25/16 at 23:00; Stop 12/30/16 at 20:00; Status DC Cefepime HCl 1000 mg/Sodium Chloride 100 ml @ 200 mls/hr Q12H IV Last administered on 12/28/16 08:18; Start 12/26/16 at 09:00; Stop 12/28/16 at 19:05 ; Status DC Sodium Chloride 1,000 ml @ 100 mls/hr Q10H IV Last administered on 12/27/16 17:17; Start 12/25/16 at 23:00; Stop 12/28/16 at 09:00; Status DC Sodium Chloride (NS Flush) 2 ml UNSCH PRN IV FLUSH FLUSH AFTER USING IV ACCESS Last administered on 12/30/16 04:59; Start 12/25/16 at 23:00 Sodium Chloride (NS Flush) 2 ml BID IV FLUSH Last administered on 01/22/17 09: 17; Start 12/26/16 at 09:00 Ondansetron HCl (Zofran Inj) 4 mg Q6H PRN IVP NAUSEA OR VOMITING Last administered on 01/05/17 15:10; Start 12/25/16 at 23:00; Stop 01/06/17 at 15:54 ; Status DC Acetaminophen (Tylenol) 650 mg Q6H PRN PO FEVER>100.4 Last administered on 01/20 20:44; Start 12/25/16 at 23:00 Acetaminophen/ Hydrocodone Bitart ([place] 5-325 Mg) 1 tab Q4H PRN PO PAIN SCALE 3 TO 5 Last administered on 12/27/16 12:05; Start 12/25/16 at 23:00; Stop 12/27/16 at 13:56; Status DC Morphine Sulfate (Morphine Inj) 2 mg Q3H PRN IV Pain 6-10 Last administered on 01/06/17 22:09; Start 12/25/16 at 23:00; Stop 01/06/17 at 23:13; Status DC Senna/Docusate Sodium (Rika-Colace) 1 tab BID PO Last administered on 01/08/17 08:12; Start 12/26/16 at 09:00; Stop 01/09/17 at 12:59; Status DC Magnesium Hydroxide (Milk Of Magnesia Liq) 30 ml Q12H PRN PO MILD - MODERATE CONSTIPATION; Start 12/25/16 at 23:00 Sennosides (Senokot) 17.2 mg Q12H PRN PO MODERATE - SEVERE CONSTIPATION; Start 12/25/16 at 23:00 Bisacodyl (Dulcolax Supp) 10 mg DAILY PRN RECTAL SEVERE CONSITIPATION; Start at 23:00 Lactulose (Lactulose Liq) 30 ml DAILY PRN PO SEVERE CONSITIPATION; Start at 23:00 Vancomycin HCl 2500 mg/Sodium Chloride 525 ml @ 250 mls/hr Q12H IV Last administered on 12/26/16 00:27; Start 12/26/16 at 01:00; Stop 12/26/16 at 04:00 ; Status DC Guaifenesin/ Dextromethorphan (Robitussin Dm 200-20 Mg/10 ml Liq) 10 ml Q4H PRN PO cough Last administered on 12/26/16 18:19; Start 12/26/16 at 01:45; Stop 12/26/16 at 19:43; Status DC Benzonatate (Tessalon) 100 mg Q4H PRN PO COUGH Last administered on 12/26/16 15:12; Start 12/26/16 at 05:15 Vancomycin HCl 2000 mg/Sodium Chloride 520 ml @ 260 mls/hr Q12H IV Last administered on 12/27/16 17:16; Start 12/26/16 at 13:00; Stop 12/27/16 at 18:13 ; Status DC Miscellaneous Information SPECIFIC LAB TO BE JASKARAN... ONCE ONCE .XX Last administered on 12/27/16 17:05; Start 12/27/16 at 12:45; Stop 12/27/16 at 12:46 ; Status DC Sodium Bicarbonate 50 ml @ As Directed STK-MED ONCE .ROUTE Last administered on 12/26/16 16:54; Start 12/26/16 at 16:54; Stop 12/26/16 at 16:55; Status DC Iohexol (Omnipaque 350 Inj) 71 ml STK-MED ONCE IV Last administered on 17:47; Start 12/26/16 at 17:47; Stop 12/26/16 at 17:48; Status DC Albuterol/ Ipratropium (Duoneb Neb) 1 ampule Q6HR WHILE AWAKE NEB NEB Last administered on 12/30/16 09:15; Start 12/26/16 at 20:00; Stop 12/30/16 at 20:00 ; Status DC Guaifenesin/ Codeine Phosphate (Robitussin Ac 200-20 Mg/10 ml Liq) 10 ml Q4H PRN PO codine; Start 12/26/16 at 19:45; Stop 12/29/16 at 11:01; Status DC Promethazine HCl/ Codeine (Phenergan-Codeine Liq) 5 ml Q4H PRN PO COUGH Last administered on 12/31/16 17:09; Start 12/26/16 at 20:00; Stop 01/12/17 at 11:12 ; Status DC Sodium Chloride 250 ml @ 15 mls/hr ONCE ONCE IV Last administered on 23:23; Start 12/26/16 at 23:15; Stop 12/27/16 at 15:54; Status DC Acetaminophen (Tylenol) 650 mg Q4H PRN PO SEE LABEL COMMENTS; Start 12/26/16 at 23:15; Stop 12/27/16 at 03:16; Status DC Diphenhydramine HCl (Benadryl) 25 mg Q4H PRN PO SEE LABEL COMMENTS; Start 12/26 at 23:15; Stop 12/27/16 at 03:16; Status DC Calcium Gluconate 1 gm/Dextrose 110 ml @ 110 mls/hr ONCE ONCE IV Last administered on 12/26/16 23:56; Start 12/26/16 at 23:30; Stop 12/27/16 at 00:29 ; Status DC Diphenhydramine HCl (Benadryl) 25 mg Q4H PRN PO SEE LABEL COMMENTS Last administered on 01/16/17 02:23; Start 12/27/16 at 04:15; Stop 01/16/17 at 13:01; Status DC Acetaminophen (Tylenol) 650 mg Q4H PRN PO SEE LABEL COMMENTS Last administered on 01/15/17 13:52; Start 12/27/16 at 04:15; Stop 01/16/17 at 13:01; Status DC Mupirocin (Bactroban 2% Oint) 1 applic TID TOPICAL Last administered on 09:18; Start 12/27/16 at 14:15 Dexamethasone (Decadron) 4 mg Q12HR PO ; Start 12/27/16 at 21:00; Stop 12/27/16 at 21:00; Status DC Dexamethasone (Decadron) 4 mg ONCE ONCE PO Last administered on 12/27/16 14: 30; Start 12/27/16 at 14:00; Stop 12/27/16 at 14:01; Status DC Oxycodone HCl (Roxicodone) 5 mg Q6H PRN PO PAIN 1-10 Last administered on 21:56; Start 12/27/16 at 14:00; Stop 01/06/17 at 18:54; Status DC Lisinopril (Prinivil) 10 mg DAILY PO ; Start 12/28/16 at 15:00; Stop 12/28/16 at 15:00; Status DC Clonidine (Catapres) 0.2 mg Q6H PRN PO SBP > 160; Start 12/27/16 at 14:15; Stop 12/27/16 at 14:15; Status DC Diatrizoate Meglum/ Diatrizoate Sod ( Gastroview Liq) 18 ml ONCE ONCE PO Last administered on 12/27/16 17:16; Start 12/27/16 at 16:45; Stop 12/27/16 at 16:46; Status DC Albuterol Sulfate (Albuterol Concentrated Neb) 2.5 mg [employer] NEB ; Start 12/27 at 16:45; Stop 12/31/16 at 16:44; Status DC Lidocaine HCl (Lidocaine Pf 4% Neb) 3 ml [employer] INSTRUCTOR NEB ; Start 12/27/16 at 16:45 ; Stop 12/31/16 at 16:44; Status DC Vancomycin HCl 2000 mg/Sodium Chloride 520 ml @ 260 mls/hr Q12H IV Last administered on 12/29/16 02:15; Start 12/28/16 at 05:00; Stop 12/29/16 at 03:00 ; Status DC Miscellaneous Information SPECIFIC LAB TO BE DRAWN:VANCOMY... ONCE ONCE .XX ; Start 12/29/16 at 04:45; Stop 12/29/16 at 04:46; Status DC Sodium Chloride 250 ml @ 15 mls/hr ONCE ONCE IV ; Start 12/27/16 at 18:30; Stop 12/27/16 at 18:38; Status DC Sodium Chloride 250 ml @ 15 mls/hr ONCE ONCE IV ; Start 12/27/16 at 18:45; Stop 12/28/16 at 11:24; Status DC Gadodiamide (Omniscan Pf Inj) 30 ml STK-MED ONCE IVCONTRAST Last administered on 12/27/16 22:10; Start 12/27/16 at 22:10; Stop 12/27/16 at 22:11; Status DC Iohexol (Omnipaque 350 Inj) 95 ml STK-MED ONCE IVCONTRAST Last administered on 12/27/16 23:00; Start 12/27/16 at 23:00; Stop 12/27/16 at 23:03; Status DC Lactated Ringer's 1,000 ml @ 30 mls/hr Q24H PRN IV SEE LABEL COMMENTS; Start at 06:15; Stop 12/31/16 at 06:14; Status DC Sodium Chloride 500 ml @ 30 mls/hr [id number] PRN IV SEE LABEL COMMENTS; Start at 06:15; Stop 12/31/16 at 06:14; Status DC Povidone Iodine (Betadine 5% Antisepsis Kit) 1 applic [employer]CTOR PRN EACH NARE SEE LABEL COMMENTS; Start 12/28/16 at 06:15; Stop 12/31/16 at 06:14; Status DC Chlorhexidine Gluconate (Chlorhexidine 2% Cloth) 3 pack [employer]CTOR PRN TOPICAL SEE LABEL COMMENTS; Start 12/28/16 at 06:15; Stop 12/31/16 at 06:14; Status DC Insulin Human Regular (NovoLIN R INJ) See Protocol Table ... [employer]URE INSTRUCTOR PRN SQ SEE PROTOCOL TABLE; Start 12/28/16 at 06:15; Stop 12/31/16 at 06:14; Status DC Dextrose 1,000 ml @ 84 mls/hr [id number] IV Last administered on 01/01/17 22:03 ; Start 12/28/16 at 09:00; Stop 01/02/17 at 12:34; Status DC Calcium Carbonate (Tums Chew) 500 mg Q6H PRN CHEW DYSPEPSIA OR HEARTBURN; Start 12/28/16 at 14:00 Pantoprazole Sodium (Protonix) 20 mg DAILY PO Last administered on 01/08/17 08: 13; Start 12/29/16 at 09:00; Stop 01/08/17 at 17:45; Status DC Famotidine (Pepcid Inj) 20 mg ONCE ONCE IV PUSH Last administered on 14:27; Start 12/28/16 at 14:20; Stop 12/28/16 at 14:21; Status DC Lidocaine HCl (Xylocaine 1% Inj) 20 ml STK-MED ONCE .ROUTE Last administered on 12/28/16 14:49; Start 12/28/16 at 14:49; Stop 12/28/16 at 14:50; Status DC Sodium Chloride (Sodium Chloride 0.9% Inj) 40 ml STK-MED ONCE .ROUTE ; Start at 15:54; Stop 12/28/16 at 15:55; Status DC Lidocaine HCl (Xylocaine 2% Inj) 50 ml STK-MED ONCE .ROUTE ; Start 12/28/16 at 15:55; Stop 12/28/16 at 15:56; Status DC Lidocaine HCl (Xylocaine 2% Viscous) 15 ml STK-MED ONCE .ROUTE ; Start 12/28/16 at 15:55; Stop 12/28/16 at 15:56; Status DC Lidocaine HCl (Xylocaine-Mpf 4% Inj) 5 ml STK-MED ONCE .ROUTE ; Start 12/28/16 at 15:55; Stop 12/28/16 at 15:56; Status DC Epinephrine HCl (Adrenalin (1:1000) Inj) 2 mg STK-MED ONCE .ROUTE ; Start at 15:55; Stop 12/28/16 at 15:56; Status DC Fentanyl Citrate (fentaNYL INJ) 250 mcg STK-MED ONCE .ROUTE Last administered on 12/28/16 16:38; Start 12/28/16 at 16:38; Stop 12/28/16 at 16:39; Status DC Midazolam HCl (Versed Inj) 4 mg STK-MED ONCE .ROUTE Last administered on 16:38; Start 12/28/16 at 16:38; Stop 12/28/16 at 16:39; Status DC Sugammadex Sodium (Bridion Inj) 400 mg STK-MED ONCE IV PUSH ; Start 12/28/16 at 17:30; Stop 12/28/16 at 17:31; Status DC Albuterol Sulfate (Albuterol Neb) 2.5 mg UNSCH X1 PRN NEB SHORTNESS OF BREATH; Start 12/28/16 at 18:15; Stop 12/29/16 at 18:14; Status DC Albuterol Sulfate (*ALBUTEROL NEB PERIprocedure ONLY) 2.5 mg STK-MED ONCE NEB Last administered on 12/28/16 18:20; Start 12/28/16 at 18:20; Stop 12/28/16 at 18:21; Status DC Fentanyl Citrate (fentaNYL INJ) 100 mcg STK-MED ONCE .ROUTE ; Start 12/28/16 at 18:27; Stop 12/28/16 at 18:28; Status DC Miscellaneous Information ALL NURSING DEPARTME... UNSCH PRN .XX SEE LABEL COMMENTS; Start 12/28/16 at 18:45; Stop 12/29/16 at 18:44; Status DC Lorazepam (Ativan Inj) 2 mg STK-MED ONCE .ROUTE ; Start 12/28/16 at 18:35; Stop 12/28/16 at 18:36; Status DC Cefepime HCl 2000 mg/Sodium Chloride 100 ml @ 200 mls/hr Q12H IV Last administered on 12/29/16 09:08; Start 12/28/16 at 21:00; Stop 12/29/16 at 22:34 ; Status DC Fluconazole/ Sodium Chloride 200 ml @ 100 mls/hr Q24H IV Last administered on 01/04/17 21:49; Start 12/28/16 at 22:00; Stop 01/05/17 at 17:06; Status DC Azithromycin 500 mg/Sodium Chloride 250 ml @ 250 mls/hr Q24H IV Last administered on 01/03/17 21:17; Start 12/28/16 at 20:00; Stop 01/04/17 at 14:48 ; Status DC Fentanyl Citrate (fentaNYL INJ) 100 mcg STK-MED ONCE .ROUTE ; Start 12/28/16 at 19:47; Stop 12/28/16 at 19:48; Status DC Vancomycin HCl 2000 mg/Sodium Chloride 520 ml @ 260 mls/hr Q12H IV Last administered on 12/30/16 16:14; Start 12/29/16 at 14:00; Stop 12/30/16 at 20:00 ; Status DC Miscellaneous Information SPECIFIC LAB TO BE DRAWN:VANCOMYCIN TROUGH DATE TO... ONCE ONCE .XX Last administered on 12/30/16 02:00; Start 12/30/16 at 01:45; Stop 12/30/16 at 01:46; Status DC Methylprednisolone Sodium Succinate (SoluMEDROL INJ) 40 mg ONCE ONCE IV PUSH Last administered on 12/29/16 22:08; Start 12/29/16 at 21:15; Stop 12/29/16 at 21:16; Status DC Methylprednisolone Sodium Succinate (SoluMEDROL INJ) 125 mg NOW ONCE IV ; Start 12/29/16 at 21:30; Stop 12/29/16 at 21:30; Status DC Allopurinol (Zyloprim) 200 mg BID PO Last administered on 01/05/17 21:47; Start 12/29/16 at 22:00; Stop 01/05/17 at 23:59; Status DC Cefepime HCl 2000 mg/Sodium Chloride 100 ml @ 200 mls/hr Q12H IV Last administered on 01/04/17 11:09; Start 12/29/16 at 23:00; Stop 01/04/17 at 14:48 ; Status DC Sodium Chloride (NS Flush) 5 ml DAILY IV FLUSH Last administered on 01/13/17 10 :42; Start 12/30/16 at 09:00 Heparin Sodium (Porcine) (Heparin Central Flush) 500 units DAILY IV FLUSH ; Start 12/30/16 at 09:00 Sodium Chloride (NS Flush) 5 ml UNSCH PRN IV FLUSH SEE PROTOCOL TABLE; Start at 06:30 Heparin Sodium (Porcine) (Heparin Central Flush) 500 units UNSCH PRN IV FLUSH SEE PROTOCOL TABLE Last administered on 12/31/16 15:45; Start 12/30/16 at 06:30 Acetaminophen (Tylenol) 650 mg ONCE ONCE PO Last administered on 12/30/16 10: 38; Start 12/30/16 at 08:30; Stop 12/30/16 at 08:31; Status DC Diphenhydramine HCl (Benadryl) 25 mg ONCE ONCE PO Last administered on 10:37; Start 12/30/16 at 08:30; Stop 12/30/16 at 08:31; Status DC Methylprednisolone Sodium Succinate (SoluMEDROL INJ) 40 mg ONCE ONCE IV PUSH Last administered on 12/30/16 10:37; Start 12/30/16 at 10:00; Stop 12/30/16 at 10:04; Status DC Cefazolin Sodium/ Dextrose 50 ml @ 100 mls/hr [employer] INSTRUCTOR IV ; Start 12/30/16 at 10:30; Stop 01/03/17 at 10:29; Status DC Methylprednisolone Sodium Succinate (SoluMEDROL INJ) 40 mg ONCE IM ; Start 12/31 at 07:00; Status UNV Granisetron HCl 1 mg/Dexamethasone Sodium Phosphate 20 mg/Sodium Chloride 56 ml @ 336 mls/hr Q24H IV Last administered on 01/07/17 04:14; Start 12/31/16 at 17:30; Stop 01/06/17 at 17:39; Status DC Midazolam HCl (Versed Inj) 4 mg STK-MED ONCE .ROUTE Last administered on 14:40; Start 12/31/16 at 14:40; Stop 12/31/16 at 14:41; Status DC Fentanyl Citrate (fentaNYL INJ) 250 mcg STK-MED ONCE .ROUTE Last administered on 12/31/16 14:40; Start 12/31/16 at 14:40; Stop 12/31/16 at 14:41; Status DC Cytarabine 200 mg/ Sodium Chloride 500 ml @ 20.833 mls/ hr Q24H IV Last administered on 01/07/17 06:27; Start 12/31/16 at 18:30; Stop 01/07/17 at 18:29 ; Status DC Daunorubicin HCl 180 mg/Sodium Chloride 136 ml @ 272 mls/hr Q24H IV Last administered on 01/03/17 01:51; Start 12/31/16 at 18:00; Stop 01/02/17 at 18:29 ; Status DC Lidocaine/ Epinephrine (Xylocaine-Epi Mpf 2%-1:200,000 Inj) 20 ml STK-MED ONCE .ROUTE Last administered on 12/31/16 15:19; Start 12/31/16 at 15:08; Stop at 15:09; Status DC Heparin Sodium (Porcine) (Heparin Central Flush) 500 units UNSCH IV FLUSH ; Start 12/31/16 at 15:45 Sodium Chloride (NS Flush) 5 ml UNSCH PRN IVF SEE PROTOCOL; Start 12/31/16 at 15:45 Heparin Sodium (Porcine) (Heparin Central Flush) 250 units UNSCH PRN IV FLUSH SEE PROTOCOL; Start 12/31/16 at 15:45 Methylprednisolone Sodium Succinate (SoluMEDROL INJ) 40 mg ONCE ONCE IV Last administered on 12/31/16 21:09; Start 12/31/16 at 17:00; Stop 12/31/16 at 17:01 ; Status DC Sodium Chloride 1,000 ml @ 42 mls/hr [id number] IV Last administered on 17:34; Start 01/02/17 at 12:45; Stop 01/08/17 at 11:33; Status DC Promethazine HCl (Phenergan) 25 mg Q4H PRN PO nausea or vomitting Last administered on 01/14/17 03:49; Start 01/04/17 at 10:15; Stop 01/14/17 at 16:35; Status DC Levofloxacin (Levaquin) 750 mg DAILY@1100 PO Last administered on 01/05/17 10: 54; Start 01/04/17 at 16:00; Stop 01/06/17 at 12:33; Status DC Calcium Chloride 1 gm/Dextrose 110 ml @ 110 mls/hr ONCE ONCE IV Last administered on 01/04/17 23:43; Start 01/04/17 at 23:00; Stop 01/04/17 at 23:59 ; Status DC Dicyclomine HCl (Bentyl) 20 mg TID PO Last administered on 01/10/17 09:52; Start 01/05/17 at 10:00; Stop 01/10/17 at 10:54; Status DC Sodium Chloride 500 ml @ 250 mls/hr Q2H ONCE IV Last administered on 14:07; Start 01/05/17 at 13:45; Stop 01/05/17 at 15:44; Status DC Ondansetron HCl (Zofran Inj) 4 mg Q8HR IV PUSH Last administered on 01/08/17 05 :22; Start 01/06/17 at 06:00; Stop 01/08/17 at 06:00; Status DC Allopurinol (Zyloprim) 200 mg DAILY PO Last administered on 01/21/17 09:44; Start 01/06/17 at 09:00 Calcium Chloride 1 gm/Sodium Chloride 110 ml @ 110 mls/hr ONCE ONCE IV Last administered on 01/06/17 09:35; Start 01/06/17 at 08:30; Stop 01/06/17 at 09:29 ; Status DC Hyoscyamine Sulfate (Levsin) 0.25 mg Q4H PRN PO CRAMPS Last administered on 10:06; Start 01/06/17 at 09:30 Morphine Sulfate (Morphine Inj) 2 mg NOW ONCE IV Last administered on 13:15; Start 01/06/17 at 13:15; Stop 01/06/17 at 13:16; Status DC Calcium Chloride 1 gm/Sodium Chloride 110 ml @ 110 mls/hr ONCE ONCE IV Last administered on 01/06/17 19:01; Start 01/06/17 at 15:00; Stop 01/06/17 at 15:59 ; Status DC Iohexol (Omnipaque 350 Inj) 81 ml STK-MED ONCE IVCONTRAST Last administered on 01/06/17 15:27; Start 01/06/17 at 15:27; Stop 01/06/17 at 15:28; Status DC Oxycodone HCl (Roxicodone) 5 mg ONCE ONCE PO ; Start 01/06/17 at 19:00; Stop at 19:01; Status Cancel Oxycodone HCl (Roxicodone) 5 mg Q6H PRN PO pain; Start 01/06/17 at 18:15; Stop 01/06/17 at 18:42; Status DC Hydromorphone HCl (Dilaudid Pf Inj) 0.5 mg ONCE ONCE IV Last administered on 19:00; Start 01/06/17 at 19:00; Stop 01/06/17 at 19:01; Status DC Oxycodone HCl (Roxicodone) 5 mg Q4H PRN PO PAIN 1-10 Last administered on 22:51; Start 01/06/17 at 19:00; Stop 01/09/17 at 12:32; Status DC Hydromorphone HCl (Dilaudid Pf Inj) 1 mg Q4H PRN IV PAIN SCALE 1 TO 10 Last administered on 01/08/17 02:12; Start 01/06/17 at 23:15; Stop 01/08/17 at 02:41; Status DC Sodium Chloride 1,000 ml @ 999 mls/hr BOLUS ONCE IV Last administered on 01/07 10:15; Start 01/07/17 at 10:00; Stop 01/07/17 at 11:00; Status DC Sodium Chloride 1,000 ml @ 75 mls/hr [id number] IV Last administered on 01/13/17 14:23; Start 01/07/17 at 14:00; Stop 01/13/17 at 14:51; Status DC Hydromorphone HCl (Dilaudid Pf Inj) 1 mg Q3H PRN IV PAIN SCALE 1 TO 10 Last administered on 01/08/17 08:12; Start 01/08/17 at 02:45; Stop 01/08/17 at 11:58; Status DC Hydromorphone HCl (Dilaudid Pf Inj) 1.5 mg ONCE ONCE IV PUSH Last administered on 01/08/17 11:44; Start 01/08/17 at 11:15; Stop 01/08/17 at 11:18; Status DC Sodium Chloride 250 ml @ 15 mls/hr ONCE ONCE IV Last administered on 16:30; Start 01/08/17 at 11:30; Stop 01/09/17 at 04:09; Status DC Acetaminophen (Tylenol) 650 mg Q4H PRN PO SEE LABEL COMMENTS; Start 01/08/17 at 11:30; Status Cancel Diphenhydramine HCl (Benadryl) 25 mg Q4H PRN PO SEE LABEL COMMENTS; Start at 11:30; Status Cancel Hydromorphone HCl (Dilaudid Pf Inj) 1.5 mg Q3H PRN IV PAIN SCALE 1 TO 10 Last administered on 01/09/17 11:17; Start 01/08/17 at 14:45; Stop 01/09/17 at 12:32; Status DC Iohexol (Omnipaque 350 Inj) 100 ml STK-MED ONCE IVCONTRAST Last administered on 01/08/17 14:41; Start 01/08/17 at 14:41; Stop 01/08/17 at 14:43; Status DC Pantoprazole Sodium (Protonix) 20 mg BID PO Last administered on 01/09/17 08:51 ; Start 01/08/17 at 21:00; Stop 01/09/17 at 13:51; Status DC Sodium Chloride 250 ml @ 15 mls/hr ONCE ONCE IV ; Start 01/09/17 at 08:15; Stop 01/10/17 at 00:54; Status DC Oxycodone HCl (Roxicodone) 10 mg ONCE ONCE PO Last administered on 01/09/17 09 :24; Start 01/09/17 at 09:00; Stop 01/09/17 at 09:17; Status DC Hydromorphone HCl (Dilaudid Pf Inj) 2 mg Q3H PRN IV PAIN SCALE 1 TO 10 Last administered on 01/11/17 13:34; Start 01/09/17 at 14:45; Stop 01/11/17 at 13:42; Status DC Hydromorphone HCl (Dilaudid Pf Inj) 2 mg ONCE ONCE IV PUSH Last administered on 01/09/17 13:16; Start 01/09/17 at 13:00; Stop 01/09/17 at 13:07; Status DC Pantoprazole Sodium (Protonix Inj) 40 mg Q12HR IV PUSH Last administered on 01/11 08:05; Start 01/09/17 at 14:00; Stop 01/11/17 at 15:02; Status DC Sucralfate (Carafate Liq) 1 gm ACHS PO Last administered on 01/23/17 06:25; Start 01/09/17 at 16:00 Piperacillin Sod/ Tazobactam Sod 100 ml @ 200 mls/hr Q8H IV Last administered on 01/13/17 15:51; Start 01/09/17 at 15:00; Stop 01/13/17 at 19:46; Status DC Sodium Chloride 250 ml @ 15 mls/hr ONCE ONCE IV Last administered on 10:20; Start 01/10/17 at 08:00; Stop 01/11/17 at 00:39; Status DC Oxycodone HCl (Roxicodone) 10 mg ONCE ONCE PO Last administered on 01/10/17 11 :12; Start 01/10/17 at 11:00; Stop 01/10/17 at 11:01; Status DC Lactobacillus Acidophilus (Lactinex) 1 tab TID PO Last administered on 12:57; Start 01/10/17 at 18:00; Stop 01/13/17 at 14:38; Status DC Oxycodone HCl (Roxicodone) 10 mg ONCE ONCE PO Last administered on 01/11/17 09 :32; Start 01/11/17 at 08:15; Stop 01/11/17 at 08:26; Status DC Hydromorphone HCl (Dilaudid Pf Inj) 2 mg Q2H PRN IV PAIN SCALE 1 TO 10 Last administered on 01/11/17 15:56; Start 01/11/17 at 13:45; Stop 01/12/17 at 08:06; Status DC Pantoprazole Sodium 80 mg/ Sodium Chloride 100 ml @ 10 mls/hr CONTINUOUS IV Last administered on 01/22/17 09:56; Start 01/11/17 at 16:00 Naloxone HCl (Narcan Inj) 0.4 mg UNSCH PRN IV RESPIRATORY RATE LESS THAN 10; Start 01/11/17 at 15:15; Stop 01/22/17 at 09:43; Status DC Hydromorphone HCl (Dilaudid OIL SPREADER OPERATOR Inj) 6 mg UNSCH IV Last administered on 09:11; Start 01/11/17 at 15:15; Stop 01/22/17 at 09:43; Status DC OIL SPREADER OPERATOR Dosage Infused (Pha) 1 Q8HR OTHER Last administered on 01/22/17 06:00; Start 01/11/17 at 15:45; Stop 01/22/17 at 09:43; Status DC Ondansetron HCl (Zofran Inj) 8 mg Q8H PRN IV PUSH NAUSEA Last administered on 19:57; Start 01/11/17 at 17:15; Status Future hold Hydromorphone HCl (Dilaudid Pf Inj) 1 mg ONCE ONCE IV PUSH Last administered on 01/12/17 02:37; Start 01/12/17 at 02:30; Stop 01/12/17 at 02:31; Status DC Propofol (Diprivan 200 Mg/20 ml Inj) 400 mg STK-MED ONCE IV ; Start 12/28/16 at 12:00; Stop 01/12/17 at 08:23; Status DC Sodium Chloride 250 ml @ 15 mls/hr ONCE ONCE IV Last administered on 10:00; Start 01/12/17 at 10:00; Stop 01/13/17 at 02:39; Status DC Hydromorphone HCl (Dilaudid Pf Inj) 2 mg STAT ONCE IV PUSH Last administered on 01/12/17 11:09; Start 01/12/17 at 11:00; Stop 01/12/17 at 11:01; Status DC Gadodiamide (Omniscan Pf Inj) 30 ml STK-MED ONCE IV PUSH Last administered on 10:51; Start 01/12/17 at 10:51; Stop 01/12/17 at 10:52; Status DC Hydromorphone HCl (Dilaudid Pf Inj) 2 mg Q4H PRN IV PUSH SEVERE BREAKTHROUGH PAIN Last administered on 01/23/17 06:25; Start 01/12/17 at 15:30 Sodium Chloride 250 ml @ 15 mls/hr ONCE ONCE IV Last administered on 08:30; Start 01/13/17 at 08:30; Stop 01/14/17 at 01:09; Status DC Metronidazole 100 ml @ 100 mls/hr Q6H IV ; Start 01/13/17 at 11:15; Stop at 11:15; Status DC Ciprofloxacin/ Dextrose 200 ml @ 200 mls/hr Q12H IV ; Start 01/13/17 at 11:15; Stop 01/13/17 at 11:15; Status DC Potassium Chloride (KCl) 40 meq ONCE ONCE PO Last administered on 01/13/17 14: 23; Start 01/13/17 at 13:00; Stop 01/13/17 at 13:59; Status DC Potassium Chloride/Sodium Chloride 1,000 ml @ 100 mls/hr Q10H IV Last administered on 01/13/17 20:00; Start 01/13/17 at 15:00; Stop 01/15/17 at 13:26; Status DC Piperacillin Sod/ Tazobactam Sod 100 ml @ 200 mls/hr Q6H IV Last administered on 01/21/17 15:00; Start 01/13/17 at 21:00; Stop 01/21/17 at 19:56; Status DC Pharmacy Profile Note 0 ml @ 0 mls/hr UNSCH OTHER ; Start 01/13/17 at 19:45; Stop 01/21/17 at 19:56; Status DC Vancomycin HCl 2000 mg/Sodium Chloride 520 ml @ 250 mls/hr Q12H IV Last administered on 01/14/17 10:31; Start 01/13/17 at 21:00; Stop 01/14/17 at 12:26; Status DC Miscellaneous Information SPECIFIC LAB TO BE JASKARAN... ONCE ONCE .XX Last administered on 01/16/17 08:45; Start 01/16/17 at 08:45; Stop 01/16/17 at 08:46; Status DC Sodium Chloride 250 ml @ 15 mls/hr ONCE ONCE IV ; Start 01/14/17 at 08:45; Stop 01/15/17 at 01:24; Status DC Ketamine HCl (Ketalar Inj) 500 mg STK-MED ONCE .ROUTE ; Start 01/14/17 at 09:18; Stop 01/14/17 at 09:19; Status DC Propofol (Diprivan 200 Mg/20 ml Inj) 100 mg STK-MED ONCE IV PUSH ; Start at 09:30; Stop 01/14/17 at 10:03; Status DC Fluconazole/ Sodium Chloride 200 ml @ 100 mls/hr Q24H IV Last administered on 01/20/17 10:57; Start 01/14/17 at 12:00; Stop 01/20/17 at 19:49; Status DC Nystatin (Mycostatin Liq) 5 ml QID SWISH-SWAL Last administered on 01/22/17 21:13; Start 01/14/17 at 13:00 Vancomycin HCl 2500 mg/Sodium Chloride 525 ml @ 250 mls/hr Q12H IV Last administered on 01/16/17 12:22; Start 01/14/17 at 21:00; Stop 01/16/17 at 13:02; Status DC Potassium Chloride 100 ml @ 25 mls/hr Q4H IV Last administered on 01/14/17 17: 54; Start 01/14/17 at 14:00; Stop 01/14/17 at 21:59; Status DC Promethazine HCl (Phenergan Inj) 12.5 mg STAT STAT IV-CENTRAL Last administered on 01/14/17 14:23; Start 01/14/17 at 14:11; Stop 01/14/17 at 14:15; Status DC Promethazine HCl (Phenergan Inj) 12.5 mg Q4H PRN IV-CENTRAL nausea Last administered on 01/20/17 12:00; Start 01/14/17 at 16:45 Multi-Ingredient Mouthwash/Gargle (Magic Mouthwash Adult Liq) 10 ml QID PRN SWISH-SWAL sore throat Last administered on 01/21/17 09:45; Start 01/15/17 at 06 :30 Benzocaine/Menthol (Chloraseptic Sanjay) 1 lozenge UNSCH PRN BUCCAL sore throat; Start 01/15/17 at 06:30 Sodium Chloride 250 ml @ 15 mls/hr ONCE ONCE IV Last administered on 16:16; Start 01/15/17 at 07:45; Stop 01/16/17 at 00:24; Status DC Sodium Chloride 250 ml @ 15 mls/hr ONCE ONCE IV ; Start 01/15/17 at 07:45; Stop 01/16/17 at 00:24; Status DC Potassium Phosphate 30 mmol/ Sodium Chloride 260 ml @ 43.333 mls/ hr ONCE ONCE IV Last administered on 01/15/17 11:01; Start 01/15/17 at 09:00; Stop at 14:59; Status DC Diphenhydramine HCl (Benadryl Inj) 25 mg ONCE ONCE IV PUSH Last administered on 01/15/17 08:38; Start 01/15/17 at 08:15; Stop 01/15/17 at 08:16; Status DC Iohexol (Omnipaque 350 Inj) 92 ml STK-MED ONCE IVCONTRAST ; Start 01/15/17 at 10: 17; Stop 01/15/17 at 10:18; Status DC Potassium Chloride/Dextrose/ Sod Cl 1,000 ml @ 84 mls/hr [id number] IV Last administered on 01/17/17 01:44; Start 01/15/17 at 13:30; Stop 01/17/17 at 08:38 ; Status DC Sodium Chloride 250 ml @ 15 mls/hr ONCE ONCE IV Last administered on 13:00; Start 01/16/17 at 13:00; Stop 01/17/17 at 05:39; Status DC Acetaminophen (Tylenol) 650 mg Q4H PRN PO SEE LABEL COMMENTS Last administered on 01/17/17 14:20; Start 01/16/17 at 13:00; Stop 01/17/17 at 14:20; Status DC Diphenhydramine HCl (Benadryl) 25 mg Q4H PRN PO SEE LABEL COMMENTS Last administered on 01/17/17 14:20; Start 01/16/17 at 13:00; Stop 01/17/17 at 14:20 ; Status DC Vancomycin HCl 2000 mg/Sodium Chloride 520 ml @ 250 mls/hr Q8H IV Last administered on 01/19/17 15:08; Start 01/16/17 at 20:00; Stop 01/19/17 at 21:47 ; Status DC Miscellaneous Information SPECIFIC LAB TO BE DRAWN:VANCO TROUGH DATE TO... ONCE ONCE .XX Last administered on 01/17/17 11:05; Start 01/17/17 at 11:45; Stop 01/17/17 at 11:46; Status DC Potassium Chloride 100 ml @ 50 mls/hr Q2H IV Last administered on 01/17/17 08 :26; Start 01/16/17 at 22:45; Stop 01/17/17 at 04:44; Status DC Potassium Chloride 100 ml @ As Directed STK-MED ONCE .ROUTE ; Start 01/17/17 at 08:25; Stop 01/17/17 at 08:26; Status DC Potassium Chloride/Dextrose/ Sod Cl 1,000 ml @ 84 mls/hr [id number] IV Last administered on 01/22/17 09:56; Start 01/17/17 at 13:30 Aminocaproic Acid (Amicar) 1,000 mg Q6HR PO Last administered on 01/22/17 06: 17; Start 01/17/17 at 12:00; Stop 01/22/17 at 09:33; Status DC Sodium Chloride 250 ml @ 15 mls/hr ONCE ONCE IV ; Start 01/17/17 at 13:00; Stop 01/18/17 at 05:39; Status DC Potassium Phosphate (K-Phos) 1,000 mg ONCE ONCE PO Last administered on 12:41; Start 01/17/17 at 13:00; Stop 01/17/17 at 13:01; Status DC Calcium Gluconate 1 gm/Sodium Chloride 110 ml @ 110 mls/hr NOW ONCE IV Last administered on 01/17/17 17:12; Start 01/17/17 at 15:45; Stop 01/17/17 at 16:44 ; Status DC Potassium Chloride 100 ml @ 50 mls/hr Q2H IV Last administered on 01/18/17 12 :22; Start 01/17/17 at 21:00; Stop 01/18/17 at 04:59; Status DC Diphenhydramine HCl (Benadryl) 25 mg Q4H PRN PO SEE LABEL COMMENTS Last administered on 01/18/17 04:53; Start 01/18/17 at 05:00; Stop 01/18/17 at 08:00 ; Status DC Potassium Chloride 100 ml @ As Directed STK-MED ONCE .ROUTE ; Start 01/18/17 at 09:38; Stop 01/18/17 at 09:39; Status DC Acetaminophen (Tylenol) 650 mg Q6H PRN PO WHILE BLOOD INFUSING Last administered on 01/19/17 11:31; Start 01/18/17 at 10:00 Diphenhydramine HCl (Benadryl) 25 mg Q4H PRN PO WHILE BLOOD INFUSING Last administered on 01/19/17 11:31; Start 01/18/17 at 10:00 Potassium Phosphate 30 mmol/ Sodium Chloride 260 ml @ 43.333 mls/ hr ONCE ONCE IV Last administered on 01/18/17 16:29; Start 01/18/17 at 14:00; Stop 03/26 at 19:59; Status DC Potassium Chloride 100 ml @ As Directed STK-MED ONCE .ROUTE ; Start 01/18/17 at 12:15; Stop 01/18/17 at 12:16; Status DC Miscellaneous Information SPECIFIC LAB TO BE JASKARAN... ONCE ONCE .XX Last administered on 01/19/17 19:45; Start 01/19/17 at 19:45; Stop 01/19/17 at 19:46 ; Status DC Potassium Chloride (KCl) 20 meq Q12HR PO Last administered on 01/22/17 21:13; Start 01/19/17 at 09:30 Acetaminophen (Tylenol) 650 mg Q4H PRN PO SEE LABEL COMMENTS; Start 01/20/17 at 06:00 Diphenhydramine HCl (Benadryl) 25 mg Q4H PRN PO SEE LABEL COMMENTS; Start 01/20 at 06:00 Sodium Chloride 250 ml @ 15 mls/hr ONCE ONCE IV ; Start 01/19/17 at 12:00; Stop 01/20/17 at 04:39; Status DC Oxymetazoline HCl (Afrin 0.05% [place]) 2 spray ONCE STAT NASAL ; Start 01/19 at 11:49; Stop 01/19/17 at 12:00; Status DC Aminocaproic Acid 2000 mg/Sodium Chloride 230 ml @ 250 mls/hr ONCE STAT IV ; Start 01/19/17 at 11:49; Stop 01/19/17 at 12:13; Status DC Aminocaproic Acid 2000 mg/Sodium Chloride 250 ml @ 250 mls/hr ONCE STAT IV ; Start 01/19/17 at 12:13; Stop 01/19/17 at 12:23; Status DC Aminocaproic Acid 2000 mg/Sodium Chloride 250 ml @ 250 mls/hr ONCE STAT IV Last administered on 01/19/17 13:06; Start 01/19/17 at 12:23; Stop 01/19/17 at 13:22; Status DC Vancomycin HCl 1500 mg/Sodium Chloride 515 ml @ 257.5 mls/ hr Q8H IV Last administered on 01/20/17 13:29; Start 01/20/17 at 00:00; Stop 01/20/17 at 15:45 ; Status DC Miscellaneous Information SPECIFIC LAB TO BE DRAWN:VANCO TROUGH DATE TO BE DR... ONCE ONCE .XX ; Start 01/20/17 at 15:45; Stop 01/20/17 at 15:45; Status DC Vancomycin HCl 1500 mg/Sodium Chloride 515 ml @ 257.5 mls/ hr Q8H IV Last administered on 01/21/17 06:30; Start 01/20/17 at 21:00; Stop 01/21/17 at 19:56 ; Status DC Miscellaneous Information SPECIFIC LAB TO BE DRAWN:VANCOMYCIN TROUGH DATE TO... ONCE ONCE .XX Last administered on 01/21/17 04:45; Start 01/21/17 at 04:45; Stop 01/21/17 at 04:46; Status DC Fluconazole (Diflucan 40 Mg/ ml Liq) 200 mg DAILY PO ; Start 01/20/17 at 19:45; Stop 01/20/17 at 19:48; Status DC Fluconazole (Diflucan 40 Mg/ ml Liq) 200 mg DAILY PO ; Start 01/21/17 at 09:00 Potassium Chloride (KCl) 20 meq ONCE ONCE PO ; Start 01/21/17 at 10:00; Stop at 11:03; Status DC Miscellaneous Information SPECIFIC LAB TO BE JASKARAN... ONCE ONCE .XX ; Start 01/22 at 12:45; Stop 01/22/17 at 12:46; Status DC Lidocaine HCl (Xylocaine 1% Inj) 20 ml STK-MED ONCE .ROUTE Last administered on 01/22/17 12:16; Start 01/22/17 at 12:16; Stop 01/22/17 at 12:17; Status DC Fentanyl Citrate (fentaNYL INJ) 100 mcg STK-MED ONCE .ROUTE Last administered on 01/22/17 12:24; Start 01/22/17 at 12:24; Stop 01/22/17 at 12:25; Status DC Fentanyl Citrate (fentaNYL INJ) 100 mcg STK-MED ONCE .ROUTE Last administered on 01/22/17 12:24; Start 01/22/17 at 12:24; Stop 01/22/17 at 12:25; Status DC Midazolam HCl (Versed Inj) 5 mg STK-MED ONCE .ROUTE Last administered on 12:24; Start 01/22/17 at 12:24; Stop 01/22/17 at 12:25; Status DC A/P Assessment and Plan A/P - 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 CSF cultures and BAL shows no growth. Zosyn and Vanco were discontinued. 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 Patients with rearrangement of CBFB in AML may have a higher risk of FRAME OPENER involvement at diagnosis or at relapse than patients with other types of AML. Inversion 16 or t(16;16), with or without additional chromosome abnormalities, has been associated with complete remission and improved long-term survival. 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 s/p EGD with esophageal candidiasis, esophageal ulcer and gastritis. continue PPI. GI following. HIDA shows no significant abnormalities. CTA Abd showing no signs of occlusive atherosclerosis, C.diff negative x 2. On IV Dilaudid for this. Initial stool occults were negative in late January, 01/09 hemoccult positive. carafate, protonix, and abx. H.PYLORI ANTIGEN . MRI negative for acute findings. Splenic hemangiomas noted. --Diarrhea - stool studies pending. Lactobacillus added to regimen. C diff negative x 2. 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 Doppler studies negative for DVT. PT/OT eval/tx. IS and acapella use. Dacia Watkins MD Jan 23, 2017 07:49
[2017-01-23 07:54] LABS: HEMO FLAGS AUTO DIFF
[2017-01-23 07:57] LABS: ANION GAP 7 MEQ/L (5-15); AST (GOT) 18 U/L (15-37); BLOOD UREA NITROGEN 5 MG/DL (7-18); CHLORIDE 102 MEQ/L (98-107); GLOMERULAR FILTRATION RATE 134 ML/MIN (>89); MAGNESIUM 2.1 MG/DL (1.5-2.5); POTASSIUM 3.9 MEQ/L (3.5-5.1); SODIUM (NA) 139 MEQ/L (136-145)
[2017-01-23 07:59] LABS: ALT (GPT) 38 U/L (12-78)
[2017-01-23 08:02] LABS: ALKALINE PHOSPHATASE 76 U/L (45-117); TOTAL BILIRUBIN ADULT 0.6 MG/DL (0.2-1.0)
[2017-01-23] MEDS: NYSTATIN SUSP 500,000 U/5 ML CUP SWISH-SWAL SCH (08:50)
[2017-01-23] MEDS: POTASSIUM CHLORIDE 20 MEQ CONTROLLED RELEASE TAB PO SCH ×2 (08:50→21:32)
[2017-01-23] MEDS: ALLOPURINOL 100 MG TAB PO SCH (08:50)
[2017-01-23] MEDS: FLUCONAZOLE SUSP 40 MG/ML 35 ML BTL PO SCH (08:51)
[2017-01-23] MEDS: SODIUM CHLORIDE 0.9% FLUSH 10 ML FLUSH IV FLUSH SCH ×2 (08:52→21:33)
[2017-01-23] MEDS: Hickman Catheter Daily NS Lock Flush IV FLUSH SCH (09:00)
[2017-01-23] MEDS: MUPIROCIN 2% OINT 22 GM TUBE TOPICAL SCH ×3 (09:00→14:25)
[2017-01-23 09:21] LABS: BANDS 9 % (0-6); BLASTS 2 % (0-0); METAMYELOCYTES 10 % (0-1); MYELOCYTES 10 % (0-0); NEUTROPHIL # MANUAL DIFF 2.2 TH/MM3 (1.8-7.7); POLYS (SEG NEUTROPHILS) 39 % (16-70); WBC DIFF SAMPLE 100
[2017-01-23 09:22] LABS: PLATELET ESTIMATE SMEAR NORMAL (NORMAL)
[2017-01-23 09:23] LABS: PLATELET MORPHOLOGY NORMAL (NORMAL)
[2017-01-23 09:24] LABS: SCAN/DIFF FINAL DIFF MANUAL
--- NOTE | 2017-01-23 09:56 | HHI.GIFU ---
Subjective Remarks Tolerating po diet. Did not realize that he had to order his meals and therefore has not been receiving meals, but states his mom has been bringing him in meals and that he is tolerating these. D/W patient that he has to order his meals and he verbalizes understanding. C/O mid abdominal/epigastric pain- controlled with pain meds. No n/v. No bleeding. (Adilene Vizcaino) Objective Vitals I&O Vital Signs Date Time Temp Pulse Resp B/P (MAP) Pulse Ox O2 Delivery O2 Flow Rate FiO2 01/23/17 08:00 97.9 86 18 138/64 (88) 97 01/23/17 04:30 98.0 89 19 158/78 (104) 97 01/23/17 04:00 89 01/23/17 00:00 85 01/23/17 00:00 97.4 88 22 127/58 (81) 97 01/22/17 21:00 83 01/22/17 20:00 97.5 80 18 114/56 (75) 98 01/22/17 15:00 96.5 81 20 110/51 (70) 98 01/22/17 15:00 77 18 166/76 (106) 97 01/22/17 14:30 76 18 165/75 (105) 96 01/22/17 14:15 73 18 157/77 (103) 98 01/22/17 14:00 97.6 92 20 146/74 (98) 94 01/22/17 12:57 16 01/22/17 12:00 85 01/22/17 12:00 98.4 85 18 155/64 (94) 96 01/22/17 12:00 16 01/22/17 10:00 93 I/O 01/22/17 01/22/17 01/22/17 01/23/17 01/23/17 01/23/17 07:00 15:00 23:00 07:00 15:00 23:00 Intake Total 568 ml 1000 ml 600 ml 1000 ml 400 ml Output Total 5000 ml 1000 ml 3700 ml 800 ml Balance -4432 ml 1000 ml -400 ml -2700 ml -400 ml Intake Oral 480 ml 600 ml 1000 ml IV Total 88 ml 1000 ml Packed Cells 400 ml Output Urine Total 5000 ml 1000 ml 3700 ml 800 ml # Bowel Movements 1 0 Laboratory Laboratory Tests Test 01/22/17 13:35 01/23/17 06:25 White Blood Count 3.3 Red Blood Count 2.71 Hemoglobin 8.0 Hematocrit 23.6 Mean Corpuscular Volume 87.3 Mean Corpuscular Hemoglobin 29.6 Mean Corpuscular Hemoglobin Concent 33.9 Red Cell Distribution Width 14.2 Platelet Count 210 Mean Platelet Volume 7.6 Neutrophils (%) (Auto) 60.5 Lymphocytes (%) (Auto) 30.7 Monocytes (%) (Auto) 8.7 Eosinophils (%) (Auto) 0.0 Basophils (%) (Auto) 0.1 Neutrophils # (Auto) 2.0 Lymphocytes # (Auto) 1.0 Monocytes # (Auto) 0.3 Eosinophils # (Auto) 0.0 Basophils # (Auto) 0.0 CBC Comment AUTO DIFF Differential Total Cells Counted 100 Neutrophils % (Manual) 39 Band Neutrophils % 9 Lymphocytes % 23 Monocytes % 7 Neutrophils # (Manual) 2.2 Metamyelocytes 10 Myelocytes 10 Differential Comment FINAL DIFF MANUAL Blastocytes 2 Platelet Estimate NORMAL Platelet Morphology Comment NORMAL Blood Urea Nitrogen 5 Creatinine 0.72 Random Glucose 99 Total Protein 5.2 Albumin 1.8 Calcium Level 8.4 Magnesium Level 2.1 Alkaline Phosphatase 76 Aspartate Amino Transf (AST/SGOT) 18 Alanine Aminotransferase (ALT/SGPT) 38 Total Bilirubin 0.6 Sodium Level 139 Potassium Level 3.9 Chloride Level 102 Carbon Dioxide Level 30.0 Anion Gap 7 Estimat Glomerular Filtration Rate 134 Date/Time Source Procedure Growth Status 01/14/17 01:35 Blood Line Aerobic Blood Culture - Final NO GROWTH IN 5 DAYS Complete 01/14/17 01:35 Blood Line Anaerobic Blood Culture - Final NO GROWTH IN 5 DAYS Complete 12/26/16 17:10 Cerebral Spinal Fluid Lumbar Puncture Acid Fast Stain - Final NO ACID FAST BACILLI SEEN Resulted 12/26/16 17:10 Cerebral Spinal Fluid Lumbar Puncture Mycobacterial Culture - Preliminary NO GROWTH IN 3 WEEKS Resulted 01/09/17 19:57 Stool Stool Stool Occult Blood (SUNDAR) - Final HEMOCCULT POSITIVE Complete 12/28/16 17:50 Bronchial Washings Left Lower Lobe Fungal Smear - Final NO FUNGAL ELEMENTS SEEN. Resulted 12/28/16 17:50 Bronchial Washings Left Lower Lobe Fungal Culture - Preliminary NO GROWTH IN 3 WEEKS Resulted 01/11/17 22:25 Urine Clean Catch Urine Culture - Final NO GROWTH IN 48 HOURS. Complete Imaging Last Impressions Bone Biopsy CT 01/22/17 0000 Signed Impressions: Service Date/Time: Sunday, January 22, 2017 13:16 - CONCLUSION: 1. Uncomplicated CT guided bone marrow aspirate. 2. Uncomplicated CT guided bone marrow biopsy. Garcia Tello MD Upper Extremity Ultrasound 01/19/17 0000 Signed Impressions: Service Date/Time: Thursday, January 19, 2017 08:07 - CONCLUSION: Negative for DVT . Richy Bonner MD FACR Neck CT 01/15/17805 Signed Impressions: Service Date/Time: Sunday, January 15, 2017 09:54 - CONCLUSION: Mild sinusitis within the maxillary sinuses, slight scarring right apex of the lung. Patricia Contreras MD Chest CT 01/15/17805 Signed Impressions: Service Date/Time: Sunday, January 15, 2017 09:58 - CONCLUSION: Left lung infiltrate has resolved and there is improvement in right lung infiltrates with residual infiltrate remaining. Patricia Contreras MD Abdomen X-Ray 01/13/17 1451 Signed Impressions: Service Date/Time: Friday, January 13, 2017 15:41 - CONCLUSION: Moderate gaseous distention of large and small bowel with appearance most suggestive of ileus Audie Gomez MD Abdomen MRI 01/12/17 0000 Signed Impressions: Service Date/Time: Thursday, January 12, 2017 09:47 - CONCLUSION: No evidence of acute abdominal process. Splenic hemangiomas Humza Decker MD Lower Extremity Ultrasound 01/10/17 0000 Signed Impressions: Service Date/Time: Tuesday, January 10, 2017 21:50 - CONCLUSION: Negative exam with no evidence of deep venous thrombosis. Jose Nicholson MD Hepatobiliary Scan Nuclear Medicine 01/09/17 0000 Signed Impressions: Service Date/Time: Monday, January 09, 2017 10:01 - CONCLUSION: 1. The patient refused imaging beyond 45 minutes. There is activity seen within small bowel and gallbladder with no evidence for cystic duct obstruction. Danie Kelly MD Abdomen/Pelvis CT 01/08/17 0000 Signed Impressions: Service Date/Time: Sunday, January 08, 2017 14:43 - CONCLUSION: 1. No evidence of mesenteric artery stenosis 2. Small amount of free fluid is present in the pelvis Humza Decker MD Abdomen Ultrasound 01/07/17 0000 Signed Impressions: Service Date/Time: December 01:11 - CONCLUSION: 1. No acute findings. Liver enlarged. Spleen mildly prominent at 14 cm. Leander Fiore MD Chest X-Ray 01/03/17 0600 Signed Impressions: Service Date/Time: Tuesday, January 03, 2017 04:42 - CONCLUSION: Normal examination. Right IJ Sbfpsa-d-[id number] catheter in excellent position. Lungs are clear. Enrique Ramos MD Port Line Insertion 12/31/16 0000 Signed Impressions: Service Date/Time: December 15:15 - CONCLUSION: Uncomplicated ultrasound and fluoroscopic guided implanted central venous port catheter placement as described in detail above. An 8 [employer] port was placed. Nilson Bonner MD G[facility] Nuclear Medicine 12/30/16 0000 Signed Impressions: Service Date/Time: Friday, December 30, 2016 13:16 - CONCLUSION: Negative exam. Calculated ejection fraction of 56%% with adequate wall motion throughout. Bean Dugan MD Brain MRI 12/27/16 0000 Signed Impressions: Service Date/Time: Tuesday, December 27, 2016 21:58 - CONCLUSION: Unremarkable study. Patricia Contreras MD Lumbar Puncture Fluoroscopy 12/26/16 0000 Signed Impressions: Service Date/Time: Monday, December 26, 2016 17:03 - CONCLUSION: Uncomplicated fluoroscopically guided lumbar puncture with pressures as above. Nilson Bonner MD Head CT 12/25/16 194 Signed Impressions: Service Date/Time: Sunday, December 25, 2016 19:50 - CONCLUSION: Negative noncontrast head CT. Audie Maria MD Physical Exam HEENT: Normocephalic; atraumatic; no jaundice. CHEST: Resp even/unlabored, diminished breath sounds CARDIAC: RRR with no murmur gallop or rubs. ABDOMEN: Soft, obese, nondistended, mild mid/epigastric tenderness, bowel sounds are present x 4 EXTREMITIES: Generalized edema. SKIN: Generalized pallor GUARD SUPERVISOR: No focal deficits; alert and oriented x 3. (Adilene VizcainoP) Assessment and Plan Plan ASSESSMENT: - Upper GIB with hematemesis. S/P EGD (01/19/17)----> 1. Severe thrush in the mouth and proximal esophagus to the distal esophagus throughout, biopsy was not done because patient is pancytopenia 2. Esophageal ulcer in the distal esophagus biopsy was not done 3. Gastritis severe throughout the stomach 4. Retroflexed views revealed gastritis. Pt had an episode of n/v after persistent coughing with first dark emesis and then bright red blood on 01/19, none since that time. Protonix Gtt, Diflucan, Magic Mouthwash, Nystatin, Carafate, hyoscyamine. No further bleeding. HH 8.0/23.6. Tolerating diet. - Esophageal ulcer, Brandon esophagitis. Protonix Gtt, Diflucan, Nystatin, Carafate. - Dysphagia secondary to brandon esophagitis. Improved. Tolerating diet. Protonix Gtt, Diflucan, Magic Mouthwash, Nystatin, Carafate Did not want PPN/TPN unless absolutely necessary. At this time, he is able to take po. - Anemia, acute blood loss. S/P mutiple transfusions. HH 7.0/20.4. - Severe pancytopenia, Requiring multiple transfusions. Requiring HLA matched products S/P Bone marrow biopsy (01/22), pathology pending. - Neutropenia. Improved. WBC 3.3, Neutrophils 39. - Abdominal pain. CT showing splenic infarct. CTA no mesenteric ischemia, small amount free fluid pelvis. HIDA (pt refused imaging beyond 45 min) but negative for cystic duct obstruction. MRI abd no acute processes , splenic hemangiomas. PPI, Carafate, Hyoscyamine. - Acute myelogenous leukemia. S/P Daunorubicin and Cytarabine per oncology. Now with severe pancytopenia. S/P Bone marrow bx (01/22), pathology pending. Oncology following. PLAN: - Soft diet with ensure with each meal - D/C Protonix Gtt - Protonix 40mg IV BID - Diflucan 200mg po daily - Carafate 1 gram ACHS - Nystatin 5mL QID - Magic Mouthwash QID prn - Hyoscyamine 0.25mg po q4h prn - Monitor labs - Transfusions per hematology - Supportive care - Notify of any further bleeding. - Further recommendations to follow based on results of above - Pt seen and examined by Dr. Ruvalcaba and myself and this note is written on his behalf (Adilene Vizcaino) Physician Comments Seen and examined with GRINDING MILL OPERATOR, still wit some abdominal pain, no bleeding. Plan outlined above. Discussed with pt. and family. (Jona Ruvalcaba MD) Adilene Vizcaino Jan 23, 2017 09:56 Jona Ruvalcaba MD Jan 23, 2017 12:00
--- NOTE | 2017-01-23 10:13 | PD.ONC.PN ---
Subjective Subjective Remarks Afebrile overnight. Tolerated bone marrow biopsy yesterday without difficulty. Tolerating abdominal pain without [employer], but he requests an oral pain medicine, as he states the IV dilaudid wears off quickly. Abdominal pain overall is improving but still persistent and requiring pain management support. Feels he is eating better. Will try to mobilize to recliner today. Objective Data Date Time Temp Pulse Resp B/P (MAP) Pulse Ox O2 Delivery O2 Flow Rate FiO2 01/23/17 08:00 97.9 86 18 138/64 (88) 97 01/23/17 04:30 98.0 89 19 158/78 (104) 97 01/23/17 04:00 89 01/23/17 00:00 85 01/23/17 00:00 97.4 88 22 127/58 (81) 97 01/22/17 21:00 83 01/22/17 20:00 97.5 80 18 114/56 (75) 98 01/22/17 15:00 96.5 81 20 110/51 (70) 98 01/22/17 15:00 77 18 166/76 (106) 97 01/22/17 14:30 76 18 165/75 (105) 96 01/22/17 14:15 73 18 157/77 (103) 98 01/22/17 14:00 97.6 92 20 146/74 (98) 94 01/22/17 12:57 16 01/22/17 12:00 85 01/22/17 12:00 98.4 85 18 155/64 (94) 96 01/22/17 12:00 16 01/23/17 01/23/17 01/23/17 07:00 15:00 23:00 Intake Total 1000 ml 400 ml Output Total 3700 ml 800 ml Balance -2700 ml -400 ml Result Diagram: 01/23/1762401/23/17624 Laboratory Results Laboratory Tests Test 01/22/17 13:35 01/23/17 06:25 White Blood Count 3.3 TH/MM3 Red Blood Count 2.71 MIL/MM3 Hemoglobin 8.0 GM/DL Hematocrit 23.6 % Mean Corpuscular Volume 87.3 FL Mean Corpuscular Hemoglobin 29.6 PG Mean Corpuscular Hemoglobin Concent 33.9 % Red Cell Distribution Width 14.2 % Platelet Count 210 TH/MM3 Mean Platelet Volume 7.6 FL Neutrophils (%) (Auto) 60.5 % Lymphocytes (%) (Auto) 30.7 % Monocytes (%) (Auto) 8.7 % Eosinophils (%) (Auto) 0.0 % Basophils (%) (Auto) 0.1 % Neutrophils # (Auto) 2.0 TH/MM3 Lymphocytes # (Auto) 1.0 TH/MM3 Monocytes # (Auto) 0.3 TH/MM3 Eosinophils # (Auto) 0.0 TH/MM3 Basophils # (Auto) 0.0 TH/MM3 CBC Comment AUTO DIFF Differential Total Cells Counted 100 Neutrophils % (Manual) 39 % Band Neutrophils % 9 % Lymphocytes % 23 % Monocytes % 7 % Neutrophils # (Manual) 2.2 TH/MM3 Metamyelocytes 10 % Myelocytes 10 % Differential Comment FINAL DIFF MANUAL Blastocytes 2 % Platelet Estimate NORMAL Platelet Morphology Comment NORMAL Blood Urea Nitrogen 5 MG/DL Creatinine 0.72 MG/DL Random Glucose 99 MG/DL Total Protein 5.2 GM/DL Albumin 1.8 GM/DL Calcium Level 8.4 MG/DL Magnesium Level 2.1 MG/DL Alkaline Phosphatase 76 U/L Aspartate Amino Transf (AST/SGOT) 18 U/L Alanine Aminotransferase (ALT/SGPT) 38 U/L Total Bilirubin 0.6 MG/DL Sodium Level 139 MEQ/L Potassium Level 3.9 MEQ/L Chloride Level 102 MEQ/L Carbon Dioxide Level 30.0 MEQ/L Anion Gap 7 MEQ/L Estimat Glomerular Filtration Rate 134 ML/MIN Administered Medications Medications (Trade) Dose Ordered Sig/Emma Route PRN Reason Start Time Stop Time Status Last Admin Dose Admin Sodium Chloride (NS Flush) 2 ml UNSCH PRN IV FLUSH FLUSH AFTER USING IV ACCESS 12/25/16 23:00 12/30/16 04:59 Sodium Chloride (NS Flush) 2 ml BID IV FLUSH 12/26/16 09:00 01/23/17 08:52 Acetaminophen (Tylenol) 650 mg Q6H PRN PO FEVER>100.4 12/25/16 23:00 01/20/17 20:44 Benzonatate (Tessalon) 100 mg Q4H PRN PO COUGH 12/26/16 05:15 12/26/16 15:12 Mupirocin (Bactroban 2% Oint) 1 applic TID TOPICAL 12/27/16 14:15 01/22/17 09:18 Sodium Chloride (NS Flush) 5 ml DAILY IV FLUSH 12/30/16 09:00 01/13/17 10:42 Heparin Sodium (Porcine) (Heparin Central Flush) 500 units UNSCH PRN IV FLUSH SEE PROTOCOL TABLE 12/30/16 06:30 12/31/16 15:45 Allopurinol (Zyloprim) 200 mg DAILY PO 01/06/17 09:00 01/23/17 08:50 Hyoscyamine Sulfate (Levsin) 0.25 mg Q4H PRN PO CRAMPS 01/06/17 09:30 01/06/17 10:06 Sucralfate (Carafate Liq) 1 gm ACHS PO 01/09/17 16:00 01/23/17 06:25 Ondansetron HCl (Zofran Inj) 8 mg Q8H PRN IV PUSH NAUSEA 01/11/17 17:15 Future hold 01/22/17 19:57 Hydromorphone HCl (Dilaudid Pf Inj) 2 mg Q4H PRN IV PUSH SEVERE BREAKTHROUGH PAIN 01/12/17 15:30 01/23/17 08:49 Nystatin (Mycostatin Liq) 5 ml QID SWISH-SWAL 01/14/17 13:00 01/23/17 08:50 Promethazine HCl (Phenergan Inj) 12.5 mg Q4H PRN IV-CENTRAL nausea 01/14/17 16:45 01/20/17 12:00 Multi-Ingredient Mouthwash/Gargle (Magic Mouthwash Adult Liq) 10 ml QID PRN SWISH-SWAL sore throat 01/15/17 06:30 01/21/17 09:45 Potassium Chloride/Dextrose/ Sod Cl 1,000 ml @ 84 mls/hr [id number] IV 01/17/17 13:30 01/22/17 09:56 Acetaminophen (Tylenol) 650 mg Q6H PRN PO WHILE BLOOD INFUSING 01/18/17 10:00 01/19/17 11:31 Diphenhydramine HCl (Benadryl) 25 mg Q4H PRN PO WHILE BLOOD INFUSING 01/18/17 10:00 01/19/17 11:31 Potassium Chloride (KCl) 20 meq Q12HR PO 01/19/17 09:30 01/23/17 08:50 Fluconazole (Diflucan 40 Mg/ ml Liq) 200 mg DAILY PO 01/21/17 09:00 01/23/17 08:51 Objective Remarks GENERAL: Young man, lying in bed in nad SKIN: Warm and dry. HEAD: Normocephalic. EYES: No injection or drainage. NECK: Supple, trachea midline. CARDIOVASCULAR: Regular rate and rhythm RESPIRATORY: Breath sounds equal bilaterally. No accessory muscle use. GASTROINTESTINAL: Abdomen soft, non-tender, nondistended. EXTREMITIES: No cyanosis. peripheral edema noted in all extremities. NEUROLOGICAL: awake and alert, normal speech. 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 3am. Transfuse 1 unit irr. platelets, 1 unit irr. PRBC's. 01/08: D9. abdominal pain persistent. 2 units pRBC 01/09: D10. 2 additional units pRBC ordered. 1 unit platelets ordered 01/10: D11. 2 units pRBC. 1 unit platelets. + stool hemoccult 01/12: D13: 2 units pRBC. 1 unit platelets. 01/13: D14: 1 unit platelets. BB working to obtain HLA matched platelets 01/14: D15. 2 units HLA matched platelets given. spoke with BB they will have two units HLA matched on hand at all times. EGD today. 01/15: D16: 1 unit platelets, 1 unit pRBC. swelling in neck and face, ?SVC syndrome. CT chest and CT neck ordered 01/16: D 17: 1 unit platelets, [address] chest and neck negative for SVC syndrome. Continue to monitor blood counts. 01/17 D18: Labs pending. Start Amicar 1gm Q6h for overnight coughing up trav blood. Will transfuse for platelets less than 10k and Hgb less than 7.0. 01/18 D19: WBC 1.0, still thrombocytopenic, no bleeding from IV site or gums. Continue plans for platelet transfusion support. Afebrile. 01/19 D20: Patient received therapeutic transfusions 01/20: D21: No transfusion today. No further hematemesis. 01/21: D22: Transfuse 1 unit PRBC's today. Platelets appear to be recovering. 01/22: D23. repeat BMB today. d/c [employer]. encourage patient to start mobilizing more. 01/23: D24. 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 Patients with rearrangement of CBFB in AML may have a higher risk of HAM CLERK involvement at diagnosis or at relapse than patients with other types of AML. Inversion 16 or t(16;16), with or without additional chromosome abnormalities, has been associated with complete remission and improved long-term survival. - MUGA scan shows normal EF and no wall motion abnormalities 12/30/2016 - Port placement by IR completed 12/31/16 - Induction chemotherapy started 12/31-- 7+3 regimen with Daunorubicin 90mg/m2 and Cytaribine 100mg/m2-- Dosing capped at BSA of 2 - CMV negative, HIV and Hep B and C negative (2) Abdominal pain ICD Codes: R10.9 - Unspecified abdominal pain Plan: -- Epigastric area pain--EGD, 01/14 showed thrush and distal esophageal ulcer as well as severe gastritis. -- Amylase, lipase WNL -- CT abdomen/ pelvis shows splenic infarcts; --CTA abdomen shows no mesenteric emboli --Abdominal U/S: shows no acute findings. enlarged liver and spleen. --GI following --on Protonix, Carafate, Diflucan +stool hemoccult (3) Pancytopenia ICD Codes: D61.818 - Other pancytopenia Plan: - Check Fibrinogen every other day - Transfuse to keep platelets > 10 - Will need irradiated CMV negative blood products -- transfuse to keep Hb > 7 (4) GIB (gastrointestinal bleeding) ICD Codes: K92.2 - Gastrointestinal hemorrhage, unspecified Plan: --+ stool hemoccult on 01/09/17 --on Protonix + Carafate --EGD on 01/14 showed distal esophageal ulcer. --monitor serial H/H, transfuse as needed Assessment 1. continue to encourage increased oral intake 2. start Oxycodone 5mg PO q 4 hours PRN pain 1-8. continue IV dilaudid for severe breakthrough pain. 3. monitor CBC Plan The exam, history, and the medical decision-making described in the above note were completed with the assistance of the mid-level provider. I reviewed and agree with the findings presented. I attest that I had a [id number] encounter with the patient on the same day, and personally performed and documented my assessment and findings in the medical record. Still weak. Blood counts improving. Encourage pt to get OOB. Bone marrow path pending. Problem Qualifiers (1) Acute myelogenous leukemia: Qualified Codes: C92.00 - Acute myeloblastic leukemia, not having achieved remission Fartun Pagan Jan 23, 2017 10:13 Tyree Burch MD Jan 23, 2017 12:19
[2017-01-23] MEDS: PANTOPRAZOLE SODIUM 40 MG VIAL IV PUSH SCH ×2 (11:46→21:31)
[2017-01-23] MEDS: D5-NS + KCL 40 MEQ INJ 1,000 ML IV SCH (12:30)
[2017-01-23] MEDS: ONDANSETRON HCL 4 MG/2 ML VIAL IV PUSH PRN (21:31)
[2017-01-24] VITALS (8 sets, daily range): BP systolic 102–125; BP diastolic 49–63; PULSE 83–99; RESP 16–18; TEMP 96.2–98; O2SAT 97–98
[2017-01-24] MEDS: D5-NS + KCL 40 MEQ INJ 1,000 ML IV SCH ×2 (00:25→12:16)
[2017-01-24] MEDS: HYDROmorphone HCL PF 2 MG/ML VIAL IV PUSH PRN ×4 (02:11→22:25)
[2017-01-24 07:30] LABS: AUTOMATED NEUTROPHIL # 2.6 TH/MM3 (1.8-7.7); BASOPHIL % 0.1 % (0.0-2.0); HEMATOCRIT 24.2 % (39.0-51.0); LYMPH % 26.1 % (9.0-44.0); LYMPHOCYTE # 1.1 TH/MM3 (1.0-4.8); MEAN CELL VOLUME 87.1 FL (80.0-100.0); MEAN CORPUSCULAR HEMOGLOBIN 30.2 PG (27.0-34.0); MEAN CORPUSCULAR HGB CONC 34.7 % (32.0-36.0); MONO % 13.6 % (0.0-8.0); NEUT % 60.2 % (16.0-70.0); PLATELET COUNT 318 TH/MM3 (150-450); RED BLOOD COUNT 2.78 MIL/MM3 (4.50-5.90); RED CELL DISTRIBUTION WIDTH 14.4 % (11.6-17.2); WHITE BLOOD COUNT 4.4 TH/MM3 (4.0-11.0)
[2017-01-24] MEDS: MUPIROCIN 2% OINT 22 GM TUBE TOPICAL SCH ×2 (07:30→07:31)
[2017-01-24 07:38] LABS: HEMO FLAGS AUTO DIFF
--- NOTE | 2017-01-24 07:38 | HHI.PR ---
Subjective Remarks in no acute distress. has mild on and off abdominal pain and nausea. no fever. no new complaints. Objective Vitals Vital Signs Date Time Temp Pulse Resp B/P (MAP) Pulse Ox O2 Delivery O2 Flow Rate FiO2 01/24/17 04:08 98.0 83 18 116/57 (76) 97 01/24/17 00:06 83 01/24/17 00:05 97.7 99 18 125/63 (83) 97 01/23/17 20:25 97.9 90 18 125/60 (81) 96 01/23/17 20:01 93 01/23/17 16:00 96.7 97 20 128/57 (80) 94 01/23/17 12:00 97.3 93 18 132/65 (87) 97 01/23/17 08:00 97.9 86 18 138/64 (88) 97 I/O 01/23/17 01/23/17 01/23/17 01/24/17 01/24/17 01/24/17 07:00 15:00 23:00 07:00 15:00 23:00 Intake Total 1000 ml 1480 ml Output Total 3700 ml 1550 ml 3700 ml 750 ml Balance -2700 ml -70 ml -3700 ml -750 ml Intake Oral 1000 ml 1080 ml Packed Cells 400 ml Output Urine Total 3700 ml 1550 ml 3700 ml 750 ml # Bowel Movements 0 0 0 Result Diagram: 01/23/1762401/23/17624 Imaging Last Impressions Bone Biopsy CT 01/22/17 0000 Signed Impressions: Service Date/Time: Sunday, January 22, 2017 13:16 - CONCLUSION: 1. Uncomplicated CT guided bone marrow aspirate. 2. Uncomplicated CT guided bone marrow biopsy. Garcia Tello MD Upper Extremity Ultrasound 01/19/17 0000 Signed Impressions: Service Date/Time: Thursday, January 19, 2017 08:07 - CONCLUSION: Negative for DVT . Richy Bonner MD FACR Neck CT 01/15/17805 Signed Impressions: Service Date/Time: Sunday, January 15, 2017 09:54 - CONCLUSION: Mild sinusitis within the maxillary sinuses, slight scarring right apex of the lung. Patricia Contreras MD Chest CT 01/15/17805 Signed Impressions: Service Date/Time: Sunday, January 15, 2017 09:58 - CONCLUSION: Left lung infiltrate has resolved and there is improvement in right lung infiltrates with residual infiltrate remaining. Patricia Contreras MD Abdomen X-Ray 01/13/17 1451 Signed Impressions: Service Date/Time: Friday, January 13, 2017 15:41 - CONCLUSION: Moderate gaseous distention of large and small bowel with appearance most suggestive of ileus Audie Gomez MD Abdomen MRI 01/12/17 0000 Signed Impressions: Service Date/Time: Thursday, January 12, 2017 09:47 - CONCLUSION: No evidence of acute abdominal process. Splenic hemangiomas Humza Decker MD Lower Extremity Ultrasound 01/10/17 0000 Signed Impressions: Service Date/Time: Tuesday, January 10, 2017 21:50 - CONCLUSION: Negative exam with no evidence of deep venous thrombosis. Jose Nicholson MD Hepatobiliary Scan Nuclear Medicine 01/09/17 0000 Signed Impressions: Service Date/Time: Monday, January 09, 2017 10:01 - CONCLUSION: 1. The patient refused imaging beyond 45 minutes. There is activity seen within small bowel and gallbladder with no evidence for cystic duct obstruction. Danie Kelly MD Abdomen/Pelvis CT 01/08/17 0000 Signed Impressions: Service Date/Time: Sunday, January 08, 2017 14:43 - CONCLUSION: 1. No evidence of mesenteric artery stenosis 2. Small amount of free fluid is present in the pelvis Humza Decker MD Abdomen Ultrasound 01/07/17 0000 Signed Impressions: Service Date/Time: December 01:11 - CONCLUSION: 1. No acute findings. Liver enlarged. Spleen mildly prominent at 14 cm. Leander Fiore MD Chest X-Ray 01/03/17 0600 Signed Impressions: Service Date/Time: Tuesday, January 03, 2017 04:42 - CONCLUSION: Normal examination. Right IJ Gerooy-j-Vzzn catheter in excellent position. Lungs are clear. Enrique Ramos MD Port Line Insertion 12/31/16 0000 Signed Impressions: Service Date/Time: December 15:15 - CONCLUSION: Uncomplicated ultrasound and fluoroscopic guided implanted central venous port catheter placement as described in detail above. An 8 [employer] port was placed. Nilson Bonner MD Gated Heart Nuclear Medicine 12/30/16 0000 Signed Impressions: Service Date/Time: Friday, December 30, 2016 13:16 - CONCLUSION: Negative exam. Calculated ejection fraction of 56%% with adequate wall motion throughout. Bean Dugan MD Brain MRI 12/27/16 0000 Signed Impressions: Service Date/Time: Tuesday, December 27, 2016 21:58 - CONCLUSION: Unremarkable study. Patricia Contreras MD Lumbar Puncture Fluoroscopy 12/26/16 0000 Signed Impressions: Service Date/Time: Monday, December 26, 2016 17:03 - CONCLUSION: Uncomplicated fluoroscopically guided lumbar puncture with pressures as above. Nilson Bonner MD Head CT 12/25/16 194 Signed Impressions: Service Date/Time: Sunday, December 25, 2016 19:50 - CONCLUSION: Negative noncontrast head CT. Audie Maria MD Objective Remarks GENERAL: This is a well-nourished, well-developed patient, in no apparent distress. CARDIOVASCULAR: Regular rate and regular rhythm without murmurs, gallops, or rubs. RESPIRATORY: Clear to auscultation. Breath sounds equal bilaterally. No wheezes , rales, or rhonchi. GASTROINTESTINAL: Abdomen soft, non-tender, nondistended. Normal, active bowel sounds MUSCULOSKELETAL: Extremities without clubbing, cyanosis, or edema. NEURO: Alert & Oriented x4 to person, place, time, situation. Moves all ext x4 Procedures 12/31 Uoaesm-x-Ebsn placement bone marrow biopsy Medications and IVs Current Medications Acetaminophen (Tylenol) 650 mg ONCE ONCE PO Last administered on 12/25/16 20: 28; Start 12/25/16 at 19:45; Stop 12/25/16 at 19:46; Status DC Sodium Chloride 1,000 ml @ 1,000 mls/hr Q1H ONCE IV Last administered on 20:27; Start 12/25/16 at 19:41; Stop 12/25/16 at 20:40; Status DC Sodium Chloride 1,000 ml @ 1,000 mls/hr Q1H ONCE IV Last administered on 20:41; Start 12/25/16 at 19:41; Stop 12/25/16 at 20:40; Status DC Sodium Chloride 1,000 ml @ 1,000 mls/hr Q1H ONCE IV Last administered on 21:09; Start 12/25/16 at 19:41; Stop 12/25/16 at 20:40; Status DC Sodium Chloride 900 ml @ 1,000 mls/hr Q54M ONCE IV Last administered on 21:46; Start 12/25/16 at 19:41; Stop 12/25/16 at 20:34; Status DC Prochlorperazine Edisylate (Compazine Inj) 10 mg ONCE ONCE IV PUSH Last administered on 12/25/16 20:28; Start 12/25/16 at 19:45; Stop 12/25/16 at 19:46 ; Status DC Diphenhydramine HCl (Benadryl Inj) 25 mg ONCE ONCE IV PUSH Last administered on 12/25/16 20:27; Start 12/25/16 at 19:45; Stop 12/25/16 at 19:46; Status DC Cefepime HCl 2000 mg/Sodium Chloride 100 ml @ 200 mls/hr ONCE STAT IV Last administered on 12/25/16 21:46; Start 12/25/16 at 21:13; Stop 12/25/16 at 21:42 ; Status DC Pharmacy Profile Note 0 ml @ 0 mls/hr UNSCH OTHER ; Start 12/25/16 at 23:00; Stop 12/30/16 at 20:00; Status DC Cefepime HCl 1000 mg/Sodium Chloride 100 ml @ 200 mls/hr Q12H IV Last administered on 12/28/16 08:18; Start 12/26/16 at 09:00; Stop 12/28/16 at 19:05 ; Status DC Sodium Chloride 1,000 ml @ 100 mls/hr Q10H IV Last administered on 12/27/16 17:17; Start 12/25/16 at 23:00; Stop 12/28/16 at 09:00; Status DC Sodium Chloride (NS Flush) 2 ml UNSCH PRN IV FLUSH FLUSH AFTER USING IV ACCESS Last administered on 12/30/16 04:59; Start 12/25/16 at 23:00 Sodium Chloride (NS Flush) 2 ml BID IV FLUSH Last administered on 01/23/17 21: 33; Start 12/26/16 at 09:00 Ondansetron HCl (Zofran Inj) 4 mg Q6H PRN IVP NAUSEA OR VOMITING Last administered on 01/05/17 15:10; Start 12/25/16 at 23:00; Stop 01/06/17 at 15:54 ; Status DC Acetaminophen (Tylenol) 650 mg Q6H PRN PO FEVER>100.4 Last administered on 01/20 20:44; Start 12/25/16 at 23:00 Acetaminophen/ Hydrocodone Bitart ([place] 5-325 Mg) 1 tab Q4H PRN PO PAIN SCALE 3 TO 5 Last administered on 12/27/16 12:05; Start 12/25/16 at 23:00; Stop 12/27/16 at 13:56; Status DC Morphine Sulfate (Morphine Inj) 2 mg Q3H PRN IV Pain 6-10 Last administered on 01/06/17 22:09; Start 12/25/16 at 23:00; Stop 01/06/17 at 23:13; Status DC Senna/Docusate Sodium (Rika-Colace) 1 tab BID PO Last administered on 01/08/17 08:12; Start 12/26/16 at 09:00; Stop 01/09/17 at 12:59; Status DC Magnesium Hydroxide (Milk Of Magnesia Liq) 30 ml Q12H PRN PO MILD - MODERATE CONSTIPATION; Start 12/25/16 at 23:00 Sennosides (Senokot) 17.2 mg Q12H PRN PO MODERATE - SEVERE CONSTIPATION; Start 12/25/16 at 23:00 Bisacodyl (Dulcolax Supp) 10 mg DAILY PRN RECTAL SEVERE CONSITIPATION; Start at 23:00 Lactulose (Lactulose Liq) 30 ml DAILY PRN PO SEVERE CONSITIPATION; Start at 23:00 Vancomycin HCl 2500 mg/Sodium Chloride 525 ml @ 250 mls/hr Q12H IV Last administered on 12/26/16 00:27; Start 12/26/16 at 01:00; Stop 12/26/16 at 04:00 ; Status DC Guaifenesin/ Dextromethorphan (Robitussin Dm 200-20 Mg/10 ml Liq) 10 ml Q4H PRN PO cough Last administered on 12/26/16 18:19; Start 12/26/16 at 01:45; Stop 12/26/16 at 19:43; Status DC Benzonatate (Tessalon) 100 mg Q4H PRN PO COUGH Last administered on 12/26/16 15:12; Start 12/26/16 at 05:15 Vancomycin HCl 2000 mg/Sodium Chloride 520 ml @ 260 mls/hr Q12H IV Last administered on 12/27/16 17:16; Start 12/26/16 at 13:00; Stop 12/27/16 at 18:13 ; Status DC Miscellaneous Information SPECIFIC LAB TO BE JASKARAN... ONCE ONCE .XX Last administered on 12/27/16 17:05; Start 12/27/16 at 12:45; Stop 12/27/16 at 12:46 ; Status DC Sodium Bicarbonate 50 ml @ As Directed STK-MED ONCE .ROUTE Last administered on 12/26/16 16:54; Start 12/26/16 at 16:54; Stop 12/26/16 at 16:55; Status DC Iohexol (Omnipaque 350 Inj) 71 ml STK-MED ONCE IV Last administered on 17:47; Start 12/26/16 at 17:47; Stop 12/26/16 at 17:48; Status DC Albuterol/ Ipratropium (Duoneb Neb) 1 ampule Q6HR WHILE AWAKE NEB NEB Last administered on 12/30/16 09:15; Start 12/26/16 at 20:00; Stop 12/30/16 at 20:00 ; Status DC Guaifenesin/ Codeine Phosphate (Robitussin Ac 200-20 Mg/10 ml Liq) 10 ml Q4H PRN PO codine; Start 12/26/16 at 19:45; Stop 12/29/16 at 11:01; Status DC Promethazine HCl/ Codeine (Phenergan-Codeine Liq) 5 ml Q4H PRN PO COUGH Last administered on 12/31/16 17:09; Start 12/26/16 at 20:00; Stop 01/12/17 at 11:12 ; Status DC Sodium Chloride 250 ml @ 15 mls/hr ONCE ONCE IV Last administered on 23:23; Start 12/26/16 at 23:15; Stop 12/27/16 at 15:54; Status DC Acetaminophen (Tylenol) 650 mg Q4H PRN PO SEE LABEL COMMENTS; Start 12/26/16 at 23:15; Stop 12/27/16 at 03:16; Status DC Diphenhydramine HCl (Benadryl) 25 mg Q4H PRN PO SEE LABEL COMMENTS; Start 12/26 at 23:15; Stop 12/27/16 at 03:16; Status DC Calcium Gluconate 1 gm/Dextrose 110 ml @ 110 mls/hr ONCE ONCE IV Last administered on 12/26/16 23:56; Start 12/26/16 at 23:30; Stop 12/27/16 at 00:29 ; Status DC Diphenhydramine HCl (Benadryl) 25 mg Q4H PRN PO SEE LABEL COMMENTS Last administered on 01/16/17 02:23; Start 12/27/16 at 04:15; Stop 01/16/17 at 13:01; Status DC Acetaminophen (Tylenol) 650 mg Q4H PRN PO SEE LABEL COMMENTS Last administered on 01/15/17 13:52; Start 12/27/16 at 04:15; Stop 01/16/17 at 13:01; Status DC Mupirocin (Bactroban 2% Oint) 1 applic TID TOPICAL Last administered on 09:18; Start 12/27/16 at 14:15 Dexamethasone (Decadron) 4 mg Q12HR PO ; Start 12/27/16 at 21:00; Stop 12/27/16 at 21:00; Status DC Dexamethasone (Decadron) 4 mg ONCE ONCE PO Last administered on 12/27/16 14: 30; Start 12/27/16 at 14:00; Stop 12/27/16 at 14:01; Status DC Oxycodone HCl (Roxicodone) 5 mg Q6H PRN PO PAIN 1-10 Last administered on 21:56; Start 12/27/16 at 14:00; Stop 01/06/17 at 18:54; Status DC Lisinopril (Prinivil) 10 mg DAILY PO ; Start 12/28/16 at 15:00; Stop 12/28/16 at 15:00; Status DC Clonidine (Catapres) 0.2 mg Q6H PRN PO SBP > 160; Start 12/27/16 at 14:15; Stop 12/27/16 at 14:15; Status DC Diatrizoate Meglum/ Diatrizoate Sod (Md [place] Liq) 18 ml ONCE ONCE PO Last administered on 12/27/16 17:16; Start 12/27/16 at 16:45; Stop 12/27/16 at 16:46; Status DC Albuterol Sulfate (Albuterol Concentrated Neb) 2.5 mg [employer] NEB ; Start 12/27 at 16:45; Stop 12/31/16 at 16:44; Status DC Lidocaine HCl (Lidocaine Pf 4% Neb) 3 ml [employer] COUN[employer] NEB ; Start 12/27/16 at 16:45 ; Stop 12/31/16 at 16:44; Status DC Vancomycin HCl 2000 mg/Sodium Chloride 520 ml @ 260 mls/hr Q12H IV Last administered on 12/29/16 02:15; Start 12/28/16 at 05:00; Stop 12/29/16 at 03:00 ; Status DC Miscellaneous Information SPECIFIC LAB TO BE DRAWN:VANCOMY... ONCE ONCE .XX ; Start 12/29/16 at 04:45; Stop 12/29/16 at 04:46; Status DC Sodium Chloride 250 ml @ 15 mls/hr ONCE ONCE IV ; Start 12/27/16 at 18:30; Stop 12/27/16 at 18:38; Status DC Sodium Chloride 250 ml @ 15 mls/hr ONCE ONCE IV ; Start 12/27/16 at 18:45; Stop 12/28/16 at 11:24; Status DC Gadodiamide (Omniscan Pf Inj) 30 ml STK-MED ONCE IVCONTRAST Last administered on 12/27/16 22:10; Start 12/27/16 at 22:10; Stop 12/27/16 at 22:11; Status DC Iohexol (Omnipaque 350 Inj) 95 ml STK-MED ONCE IVCONTRAST Last administered on 12/27/16 23:00; Start 12/27/16 at 23:00; Stop 12/27/16 at 23:03; Status DC Lactated Ringer's 1,000 ml @ 30 mls/hr Q24H PRN IV SEE LABEL COMMENTS; Start at 06:15; Stop 12/31/16 at 06:14; Status DC Sodium Chloride 500 ml @ 30 mls/hr [id number] PRN IV SEE LABEL COMMENTS; Start at 06:15; Stop 12/31/16 at 06:14; Status DC Povidone Iodine (Betadine 5% Antisepsis Kit) 1 applic [employer] COUN[employer] PRN EACH NARE SEE LABEL COMMENTS; Start 12/28/16 at 06:15; Stop 12/31/16 at 06:14; Status DC Chlorhexidine Gluconate (Chlorhexidine 2% Cloth) 3 pack [employer] COUN[employer] PRN TOPICAL SEE LABEL COMMENTS; Start 12/28/16 at 06:15; Stop 12/31/16 at 06:14; Status DC Insulin Human Regular (NovoLIN R INJ) See Protocol Table ... [employer] COUNSELOR PRN SQ SEE PROTOCOL TABLE; Start 12/28/16 at 06:15; Stop 12/31/16 at 06:14; Status DC Dextrose 1,000 ml @ 84 mls/hr [id number] IV Last administered on 01/01/17 22:03 ; Start 12/28/16 at 09:00; Stop 01/02/17 at 12:34; Status DC Calcium Carbonate (Tums Chew) 500 mg Q6H PRN CHEW DYSPEPSIA OR HEARTBURN; Start 12/28/16 at 14:00; Stop 01/23/17 at 13:13; Status DC Pantoprazole Sodium (Protonix) 20 mg DAILY PO Last administered on 01/08/17 08: 13; Start 12/29/16 at 09:00; Stop 01/08/17 at 17:45; Status DC Famotidine (Pepcid Inj) 20 mg ONCE ONCE IV PUSH Last administered on 14:27; Start 12/28/16 at 14:20; Stop 12/28/16 at 14:21; Status DC Lidocaine HCl (Xylocaine 1% Inj) 20 ml STK-MED ONCE .ROUTE Last administered on 12/28/16 14:49; Start 12/28/16 at 14:49; Stop 12/28/16 at 14:50; Status DC Sodium Chloride (Sodium Chloride 0.9% Inj) 40 ml STK-MED ONCE .ROUTE ; Start at 15:54; Stop 12/28/16 at 15:55; Status DC Lidocaine HCl (Xylocaine 2% Inj) 50 ml STK-MED ONCE .ROUTE ; Start 12/28/16 at 15:55; Stop 12/28/16 at 15:56; Status DC Lidocaine HCl (Xylocaine 2% Viscous) 15 ml STK-MED ONCE .ROUTE ; Start 12/28/16 at 15:55; Stop 12/28/16 at 15:56; Status DC Lidocaine HCl (Xylocaine-Mpf 4% Inj) 5 ml STK-MED ONCE .ROUTE ; Start 12/28/16 at 15:55; Stop 12/28/16 at 15:56; Status DC Epinephrine HCl (Adrenalin (1:1000) Inj) 2 mg STK-MED ONCE .ROUTE ; Start at 15:55; Stop 12/28/16 at 15:56; Status DC Fentanyl Citrate (fentaNYL INJ) 250 mcg STK-MED ONCE .ROUTE Last administered on 12/28/16 16:38; Start 12/28/16 at 16:38; Stop 12/28/16 at 16:39; Status DC Midazolam HCl (Versed Inj) 4 mg STK-MED ONCE .ROUTE Last administered on 16:38; Start 12/28/16 at 16:38; Stop 12/28/16 at 16:39; Status DC Sugammadex Sodium (Bridion Inj) 400 mg STK-MED ONCE IV PUSH ; Start 12/28/16 at 17:30; Stop 12/28/16 at 17:31; Status DC Albuterol Sulfate (Albuterol Neb) 2.5 mg UNSCH X1 PRN NEB SHORTNESS OF BREATH; Start 12/28/16 at 18:15; Stop 12/29/16 at 18:14; Status DC Albuterol Sulfate (*ALBUTEROL NEB PERIprocedure ONLY) 2.5 mg STK-MED ONCE NEB Last administered on 12/28/16 18:20; Start 12/28/16 at 18:20; Stop 12/28/16 at 18:21; Status DC Fentanyl Citrate (fentaNYL INJ) 100 mcg STK-MED ONCE .ROUTE ; Start 12/28/16 at 18:27; Stop 12/28/16 at 18:28; Status DC Miscellaneous Information ALL NURSING DEPARTME... UNSCH PRN .XX SEE LABEL COMMENTS; Start 12/28/16 at 18:45; Stop 12/29/16 at 18:44; Status DC Lorazepam (Ativan Inj) 2 mg STK-MED ONCE .ROUTE ; Start 12/28/16 at 18:35; Stop 12/28/16 at 18:36; Status DC Cefepime HCl 2000 mg/Sodium Chloride 100 ml @ 200 mls/hr Q12H IV Last administered on 12/29/16 09:08; Start 12/28/16 at 21:00; Stop 12/29/16 at 22:34 ; Status DC Fluconazole/ Sodium Chloride 200 ml @ 100 mls/hr Q24H IV Last administered on 01/04/17 21:49; Start 12/28/16 at 22:00; Stop 01/05/17 at 17:06; Status DC Azithromycin 500 mg/Sodium Chloride 250 ml @ 250 mls/hr Q24H IV Last administered on 01/03/17 21:17; Start 12/28/16 at 20:00; Stop 01/04/17 at 14:48 ; Status DC Fentanyl Citrate (fentaNYL INJ) 100 mcg STK-MED ONCE .ROUTE ; Start 12/28/16 at 19:47; Stop 12/28/16 at 19:48; Status DC Vancomycin HCl 2000 mg/Sodium Chloride 520 ml @ 260 mls/hr Q12H IV Last administered on 12/30/16 16:14; Start 12/29/16 at 14:00; Stop 12/30/16 at 20:00 ; Status DC Miscellaneous Information SPECIFIC LAB TO BE DRAWN:VANCOMYCIN TROUGH DATE TO... ONCE ONCE .XX Last administered on 12/30/16 02:00; Start 12/30/16 at 01:45; Stop 12/30/16 at 01:46; Status DC Methylprednisolone Sodium Succinate (SoluMEDROL INJ) 40 mg ONCE ONCE IV PUSH Last administered on 12/29/16 22:08; Start 12/29/16 at 21:15; Stop 12/29/16 at 21:16; Status DC Methylprednisolone Sodium Succinate (SoluMEDROL INJ) 125 mg NOW ONCE IV ; Start 12/29/16 at 21:30; Stop 12/29/16 at 21:30; Status DC Allopurinol (Zyloprim) 200 mg BID PO Last administered on 01/05/17 21:47; Start 12/29/16 at 22:00; Stop 01/05/17 at 23:59; Status DC Cefepime HCl 2000 mg/Sodium Chloride 100 ml @ 200 mls/hr Q12H IV Last administered on 01/04/17 11:09; Start 12/29/16 at 23:00; Stop 01/04/17 at 14:48 ; Status DC Sodium Chloride (NS Flush) 5 ml DAILY IV FLUSH Last administered on 01/13/17 10 :42; Start 12/30/16 at 09:00 Heparin Sodium (Porcine) (Heparin Central Flush) 500 units DAILY IV FLUSH ; Start 12/30/16 at 09:00 Sodium Chloride (NS Flush) 5 ml UNSCH PRN IV FLUSH SEE PROTOCOL TABLE; Start at 06:30 Heparin Sodium (Porcine) (Heparin Central Flush) 500 units UNSCH PRN IV FLUSH SEE PROTOCOL TABLE Last administered on 12/31/16 15:45; Start 12/30/16 at 06:30 Acetaminophen (Tylenol) 650 mg ONCE ONCE PO Last administered on 12/30/16 10: 38; Start 12/30/16 at 08:30; Stop 12/30/16 at 08:31; Status DC Diphenhydramine HCl (Benadryl) 25 mg ONCE ONCE PO Last administered on 10:37; Start 12/30/16 at 08:30; Stop 12/30/16 at 08:31; Status DC Methylprednisolone Sodium Succinate (SoluMEDROL INJ) 40 mg ONCE ONCE IV PUSH Last administered on 12/30/16 10:37; Start 12/30/16 at 10:00; Stop 12/30/16 at 10:04; Status DC Cefazolin Sodium/ Dextrose 50 ml @ 100 mls/hr [employer] COUN[employer] IV ; Start 12/30/16 at 10:30; Stop 01/03/17 at 10:29; Status DC Methylprednisolone Sodium Succinate (SoluMEDROL INJ) 40 mg ONCE IM ; Start 12/31 at 07:00; Status UNV Granisetron HCl 1 mg/Dexamethasone Sodium Phosphate 20 mg/Sodium Chloride 56 ml @ 336 mls/hr Q24H IV Last administered on 01/07/17 04:14; Start 12/31/16 at 17:30; Stop 01/06/17 at 17:39; Status DC Midazolam HCl (Versed Inj) 4 mg STK-MED ONCE .ROUTE Last administered on 14:40; Start 12/31/16 at 14:40; Stop 12/31/16 at 14:41; Status DC Fentanyl Citrate (fentaNYL INJ) 250 mcg STK-MED ONCE .ROUTE Last administered on 12/31/16 14:40; Start 12/31/16 at 14:40; Stop 12/31/16 at 14:41; Status DC Cytarabine 200 mg/ Sodium Chloride 500 ml @ 20.833 mls/ hr Q24H IV Last administered on 01/07/17 06:27; Start 12/31/16 at 18:30; Stop 01/07/17 at 18:29 ; Status DC Daunorubicin HCl 180 mg/Sodium Chloride 136 ml @ 272 mls/hr Q24H IV Last administered on 01/03/17 01:51; Start 12/31/16 at 18:00; Stop 01/02/17 at 18:29 ; Status DC Lidocaine/ Epinephrine (Xylocaine-Epi Mpf 2%-1:200,000 Inj) 20 ml STK-MED ONCE .ROUTE Last administered on 12/31/16 15:19; Start 12/31/16 at 15:08; Stop at 15:09; Status DC Heparin Sodium (Porcine) (Heparin Central Flush) 500 units UNSCH IV FLUSH ; Start 12/31/16 at 15:45 Sodium Chloride (NS Flush) 5 ml UNSCH PRN IVF SEE PROTOCOL; Start 12/31/16 at 15:45 Heparin Sodium (Porcine) (Heparin Central Flush) 250 units UNSCH PRN IV FLUSH SEE PROTOCOL; Start 12/31/16 at 15:45 Methylprednisolone Sodium Succinate (SoluMEDROL INJ) 40 mg ONCE ONCE IV Last administered on 12/31/16 21:09; Start 12/31/16 at 17:00; Stop 12/31/16 at 17:01 ; Status DC Sodium Chloride 1,000 ml @ 42 mls/hr [id number] IV Last administered on 17:34; Start 01/02/17 at 12:45; Stop 01/08/17 at 11:33; Status DC Promethazine HCl (Phenergan) 25 mg Q4H PRN PO nausea or vomitting Last administered on 01/14/17 03:49; Start 01/04/17 at 10:15; Stop 01/14/17 at 16:35; Status DC Levofloxacin (Levaquin) 750 mg DAILY@1100 PO Last administered on 01/05/17 10: 54; Start 01/04/17 at 16:00; Stop 01/06/17 at 12:33; Status DC Calcium Chloride 1 gm/Dextrose 110 ml @ 110 mls/hr ONCE ONCE IV Last administered on 01/04/17 23:43; Start 01/04/17 at 23:00; Stop 01/04/17 at 23:59 ; Status DC Dicyclomine HCl (Bentyl) 20 mg TID PO Last administered on 01/10/17 09:52; Start 01/05/17 at 10:00; Stop 01/10/17 at 10:54; Status DC Sodium Chloride 500 ml @ 250 mls/hr Q2H ONCE IV Last administered on 14:07; Start 01/05/17 at 13:45; Stop 01/05/17 at 15:44; Status DC Ondansetron HCl (Zofran Inj) 4 mg Q8HR IV PUSH Last administered on 01/08/17 05 :22; Start 01/06/17 at 06:00; Stop 01/08/17 at 06:00; Status DC Allopurinol (Zyloprim) 200 mg DAILY PO Last administered on 01/23/17 08:50; Start 01/06/17 at 09:00 Calcium Chloride 1 gm/Sodium Chloride 110 ml @ 110 mls/hr ONCE ONCE IV Last administered on 01/06/17 09:35; Start 01/06/17 at 08:30; Stop 01/06/17 at 09:29 ; Status DC Hyoscyamine Sulfate (Levsin) 0.25 mg Q4H PRN PO CRAMPS Last administered on 10:06; Start 01/06/17 at 09:30; Stop 01/23/17 at 13:13; Status DC Morphine Sulfate (Morphine Inj) 2 mg NOW ONCE IV Last administered on 13:15; Start 01/06/17 at 13:15; Stop 01/06/17 at 13:16; Status DC Calcium Chloride 1 gm/Sodium Chloride 110 ml @ 110 mls/hr ONCE ONCE IV Last administered on 01/06/17 19:01; Start 01/06/17 at 15:00; Stop 01/06/17 at 15:59 ; Status DC Iohexol (Omnipaque 350 Inj) 81 ml STK-MED ONCE IVCONTRAST Last administered on 01/06/17 15:27; Start 01/06/17 at 15:27; Stop 01/06/17 at 15:28; Status DC Oxycodone HCl (Roxicodone) 5 mg ONCE ONCE PO ; Start 01/06/17 at 19:00; Stop at 19:01; Status Cancel Oxycodone HCl (Roxicodone) 5 mg Q6H PRN PO pain; Start 01/06/17 at 18:15; Stop 01/06/17 at 18:42; Status DC Hydromorphone HCl (Dilaudid Pf Inj) 0.5 mg ONCE ONCE IV Last administered on 19:00; Start 01/06/17 at 19:00; Stop 01/06/17 at 19:01; Status DC Oxycodone HCl (Roxicodone) 5 mg Q4H PRN PO PAIN 1-10 Last administered on 22:51; Start 01/06/17 at 19:00; Stop 01/09/17 at 12:32; Status DC Hydromorphone HCl (Dilaudid Pf Inj) 1 mg Q4H PRN IV PAIN SCALE 1 TO 10 Last administered on 01/08/17 02:12; Start 01/06/17 at 23:15; Stop 01/08/17 at 02:41; Status DC Sodium Chloride 1,000 ml @ 999 mls/hr BOLUS ONCE IV Last administered on 01/07 10:15; Start 01/07/17 at 10:00; Stop 01/07/17 at 11:00; Status DC Sodium Chloride 1,000 ml @ 75 mls/hr [id number] IV Last administered on 01/13/17 14:23; Start 01/07/17 at 14:00; Stop 01/13/17 at 14:51; Status DC Hydromorphone HCl (Dilaudid Pf Inj) 1 mg Q3H PRN IV PAIN SCALE 1 TO 10 Last administered on 01/08/17 08:12; Start 01/08/17 at 02:45; Stop 01/08/17 at 11:58; Status DC Hydromorphone HCl (Dilaudid Pf Inj) 1.5 mg ONCE ONCE IV PUSH Last administered on 01/08/17 11:44; Start 01/08/17 at 11:15; Stop 01/08/17 at 11:18; Status DC Sodium Chloride 250 ml @ 15 mls/hr ONCE ONCE IV Last administered on 16:30; Start 01/08/17 at 11:30; Stop 01/09/17 at 04:09; Status DC Acetaminophen (Tylenol) 650 mg Q4H PRN PO SEE LABEL COMMENTS; Start 01/08/17 at 11:30; Status Cancel Diphenhydramine HCl (Benadryl) 25 mg Q4H PRN PO SEE LABEL COMMENTS; Start at 11:30; Status Cancel Hydromorphone HCl (Dilaudid Pf Inj) 1.5 mg Q3H PRN IV PAIN SCALE 1 TO 10 Last administered on 01/09/17 11:17; Start 01/08/17 at 14:45; Stop 01/09/17 at 12:32; Status DC Iohexol (Omnipaque 350 Inj) 100 ml STK-MED ONCE IVCONTRAST Last administered on 01/08/17 14:41; Start 01/08/17 at 14:41; Stop 01/08/17 at 14:43; Status DC Pantoprazole Sodium (Protonix) 20 mg BID PO Last administered on 01/09/17 08:51 ; Start 01/08/17 at 21:00; Stop 01/09/17 at 13:51; Status DC Sodium Chloride 250 ml @ 15 mls/hr ONCE ONCE IV ; Start 01/09/17 at 08:15; Stop 01/10/17 at 00:54; Status DC Oxycodone HCl (Roxicodone) 10 mg ONCE ONCE PO Last administered on 01/09/17 09 :24; Start 01/09/17 at 09:00; Stop 01/09/17 at 09:17; Status DC Hydromorphone HCl (Dilaudid Pf Inj) 2 mg Q3H PRN IV PAIN SCALE 1 TO 10 Last administered on 01/11/17 13:34; Start 01/09/17 at 14:45; Stop 01/11/17 at 13:42; Status DC Hydromorphone HCl (Dilaudid Pf Inj) 2 mg ONCE ONCE IV PUSH Last administered on 01/09/17 13:16; Start 01/09/17 at 13:00; Stop 01/09/17 at 13:07; Status DC Pantoprazole Sodium (Protonix Inj) 40 mg Q12HR IV PUSH Last administered on 01/11 08:05; Start 01/09/17 at 14:00; Stop 01/11/17 at 15:02; Status DC Sucralfate (Carafate Liq) 1 gm ACHS PO Last administered on 01/23/17 21:31; Start 01/09/17 at 16:00 Piperacillin Sod/ Tazobactam Sod 100 ml @ 200 mls/hr Q8H IV Last administered on 01/13/17 15:51; Start 01/09/17 at 15:00; Stop 01/13/17 at 19:46; Status DC Sodium Chloride 250 ml @ 15 mls/hr ONCE ONCE IV Last administered on 10:20; Start 01/10/17 at 08:00; Stop 01/11/17 at 00:39; Status DC Oxycodone HCl (Roxicodone) 10 mg ONCE ONCE PO Last administered on 01/10/17 11 :12; Start 01/10/17 at 11:00; Stop 01/10/17 at 11:01; Status DC Lactobacillus Acidophilus (Lactinex) 1 tab TID PO Last administered on 12:57; Start 01/10/17 at 18:00; Stop 01/13/17 at 14:38; Status DC Oxycodone HCl (Roxicodone) 10 mg ONCE ONCE PO Last administered on 01/11/17 09 :32; Start 01/11/17 at 08:15; Stop 01/11/17 at 08:26; Status DC Hydromorphone HCl (Dilaudid Pf Inj) 2 mg Q2H PRN IV PAIN SCALE 1 TO 10 Last administered on 01/11/17 15:56; Start 01/11/17 at 13:45; Stop 01/12/17 at 08:06; Status DC Pantoprazole Sodium 80 mg/ Sodium Chloride 100 ml @ 10 mls/hr CONTINUOUS IV Last administered on 01/22/17 09:56; Start 01/11/17 at 16:00; Stop 01/23/17 at 09:58; Status DC Naloxone HCl (Narcan Inj) 0.4 mg UNSCH PRN IV RESPIRATORY RATE LESS THAN 10; Start 01/11/17 at 15:15; Stop 01/22/17 at 09:43; Status DC Hydromorphone HCl (Dilaudid CUSTOMER CONTACT REPRESENTATIVE Inj) 6 mg UNSCH IV Last administered on 09:11; Start 01/11/17 at 15:15; Stop 01/22/17 at 09:43; Status DC CUSTOMER CONTACT REPRESENTATIVE Dosage Infused (Pha) 1 Q8HR OTHER Last administered on 01/22/17 06:00; Start 01/11/17 at 15:45; Stop 01/22/17 at 09:43; Status DC Ondansetron HCl (Zofran Inj) 8 mg Q8H PRN IV PUSH NAUSEA Last administered on 21:31; Start 01/11/17 at 17:15; Status Future hold Hydromorphone HCl (Dilaudid Pf Inj) 1 mg ONCE ONCE IV PUSH Last administered on 01/12/17 02:37; Start 01/12/17 at 02:30; Stop 01/12/17 at 02:31; Status DC Propofol (Diprivan 200 Mg/20 ml Inj) 400 mg STK-MED ONCE IV ; Start 12/28/16 at 12:00; Stop 01/12/17 at 08:23; Status DC Sodium Chloride 250 ml @ 15 mls/hr ONCE ONCE IV Last administered on 10:00; Start 01/12/17 at 10:00; Stop 01/13/17 at 02:39; Status DC Hydromorphone HCl (Dilaudid Pf Inj) 2 mg STAT ONCE IV PUSH Last administered on 01/12/17 11:09; Start 01/12/17 at 11:00; Stop 01/12/17 at 11:01; Status DC Gadodiamide (Omniscan Pf Inj) 30 ml STK-MED ONCE IV PUSH Last administered on 10:51; Start 01/12/17 at 10:51; Stop 01/12/17 at 10:52; Status DC Hydromorphone HCl (Dilaudid Pf Inj) 2 mg Q4H PRN IV PUSH SEVERE BREAKTHROUGH PAIN Last administered on 01/24/17 02:11; Start 01/12/17 at 15:30 Sodium Chloride 250 ml @ 15 mls/hr ONCE ONCE IV Last administered on 08:30; Start 01/13/17 at 08:30; Stop 01/14/17 at 01:09; Status DC Metronidazole 100 ml @ 100 mls/hr Q6H IV ; Start 01/13/17 at 11:15; Stop at 11:15; Status DC Ciprofloxacin/ Dextrose 200 ml @ 200 mls/hr Q12H IV ; Start 01/13/17 at 11:15; Stop 01/13/17 at 11:15; Status DC Potassium Chloride (KCl) 40 meq ONCE ONCE PO Last administered on 01/13/17 14: 23; Start 01/13/17 at 13:00; Stop 01/13/17 at 13:59; Status DC Potassium Chloride/Sodium Chloride 1,000 ml @ 100 mls/hr Q10H IV Last administered on 01/13/17 20:00; Start 01/13/17 at 15:00; Stop 01/15/17 at 13:26; Status DC Piperacillin Sod/ Tazobactam Sod 100 ml @ 200 mls/hr Q6H IV Last administered on 01/21/17 15:00; Start 01/13/17 at 21:00; Stop 01/21/17 at 19:56; Status DC Pharmacy Profile Note 0 ml @ 0 mls/hr UNSCH OTHER ; Start 01/13/17 at 19:45; Stop 01/21/17 at 19:56; Status DC Vancomycin HCl 2000 mg/Sodium Chloride 520 ml @ 250 mls/hr Q12H IV Last administered on 01/14/17 10:31; Start 01/13/17 at 21:00; Stop 01/14/17 at 12:26; Status DC Miscellaneous Information SPECIFIC LAB TO BE ... ONCE ONCE .XX Last administered on 01/16/17 08:45; Start 01/16/17 at 08:45; Stop 01/16/17 at 08:46; Status DC Sodium Chloride 250 ml @ 15 mls/hr ONCE ONCE IV ; Start 01/14/17 at 08:45; Stop 01/15/17 at 01:24; Status DC Ketamine HCl (Ketalar Inj) 500 mg STK-MED ONCE .ROUTE ; Start 01/14/17 at 09:18; Stop 01/14/17 at 09:19; Status DC Propofol (Diprivan 200 Mg/20 ml Inj) 100 mg STK-MED ONCE IV PUSH ; Start at 09:30; Stop 01/14/17 at 10:03; Status DC Fluconazole/ Sodium Chloride 200 ml @ 100 mls/hr Q24H IV Last administered on 01/20/17 10:57; Start 01/14/17 at 12:00; Stop 01/20/17 at 19:49; Status DC Nystatin (Mycostatin Liq) 5 ml QID SWISH-SWAL Last administered on 01/23/17 08:50; Start 01/14/17 at 13:00; Stop 01/23/17 at 12:27; Status DC Vancomycin HCl 2500 mg/Sodium Chloride 525 ml @ 250 mls/hr Q12H IV Last administered on 01/16/17 12:22; Start 01/14/17 at 21:00; Stop 01/16/17 at 13:02; Status DC Potassium Chloride 100 ml @ 25 mls/hr Q4H IV Last administered on 01/14/17 17: 54; Start 01/14/17 at 14:00; Stop 01/14/17 at 21:59; Status DC Promethazine HCl (Phenergan Inj) 12.5 mg STAT STAT IV-CENTRAL Last administered on 01/14/17 14:23; Start 01/14/17 at 14:11; Stop 01/14/17 at 14:15; Status DC Promethazine HCl (Phenergan Inj) 12.5 mg Q4H PRN IV-CENTRAL nausea Last administered on 9/13/17at 12:00; Start 01/14/17 at 16:45 Multi-Ingredient Mouthwash/Gargle (Magic Mouthwash Adult Liq) 10 ml QID PRN SWISH-SWAL sore throat Last administered on 01/21/17 09:45; Start 01/15/17 at 06 :30 Benzocaine/Menthol (Chloraseptic Sanjay) 1 lozenge UNSCH PRN BUCCAL sore throat; Start 01/15/17 at 06:30 Sodium Chloride 250 ml @ 15 mls/hr ONCE ONCE IV Last administered on 16:16; Start 01/15/17 at 07:45; Stop 01/16/17 at 00:24; Status DC Sodium Chloride 250 ml @ 15 mls/hr ONCE ONCE IV ; Start 01/15/17 at 07:45; Stop 01/16/17 at 00:24; Status DC Potassium Phosphate 30 mmol/ Sodium Chloride 260 ml @ 43.333 mls/ hr ONCE ONCE IV Last administered on 01/15/17 11:01; Start 01/15/17 at 09:00; Stop at 14:59; Status DC Diphenhydramine HCl (Benadryl Inj) 25 mg ONCE ONCE IV PUSH Last administered on 01/15/17 08:38; Start 01/15/17 at 08:15; Stop 01/15/17 at 08:16; Status DC Iohexol (Omnipaque 350 Inj) 92 ml STK-MED ONCE IVCONTRAST ; Start 01/15/17 at 10: 17; Stop 01/15/17 at 10:18; Status DC Potassium Chloride/Dextrose/ Sod Cl 1,000 ml @ 84 mls/hr [id number] IV Last administered on 01/17/17 01:44; Start 01/15/17 at 13:30; Stop 01/17/17 at 08:38 ; Status DC Sodium Chloride 250 ml @ 15 mls/hr ONCE ONCE IV Last administered on 13:00; Start 01/16/17 at 13:00; Stop 01/17/17 at 05:39; Status DC Acetaminophen (Tylenol) 650 mg Q4H PRN PO SEE LABEL COMMENTS Last administered on 01/17/17 14:20; Start 01/16/17 at 13:00; Stop 01/17/17 at 14:20; Status DC Diphenhydramine HCl (Benadryl) 25 mg Q4H PRN PO SEE LABEL COMMENTS Last administered on 01/17/17 14:20; Start 01/16/17 at 13:00; Stop 01/17/17 at 14:20 ; Status DC Vancomycin HCl 2000 mg/Sodium Chloride 520 ml @ 250 mls/hr Q8H IV Last administered on 01/19/17 15:08; Start 01/16/17 at 20:00; Stop 01/19/17 at 21:47 ; Status DC Miscellaneous Information SPECIFIC LAB TO BE DRAWN:VANCO TROUGH DATE TO... ONCE ONCE .XX Last administered on 01/17/17 11:05; Start 01/17/17 at 11:45; Stop 01/17/17 at 11:46; Status DC Potassium Chloride 100 ml @ 50 mls/hr Q2H IV Last administered on 01/17/17 08 :26; Start 01/16/17 at 22:45; Stop 01/17/17 at 04:44; Status DC Potassium Chloride 100 ml @ As Directed STK-MED ONCE .ROUTE ; Start 01/17/17 at 08:25; Stop 01/17/17 at 08:26; Status DC Potassium Chloride/Dextrose/ Sod Cl 1,000 ml @ 84 mls/hr [id number] IV Last administered on 01/22/17 09:56; Start 01/17/17 at 13:30 Aminocaproic Acid (Amicar) 1,000 mg Q6HR PO Last administered on 01/22/17 06: 17; Start 01/17/17 at 12:00; Stop 01/22/17 at 09:33; Status DC Sodium Chloride 250 ml @ 15 mls/hr ONCE ONCE IV ; Start 01/17/17 at 13:00; Stop 01/18/17 at 05:39; Status DC Potassium Phosphate (K-Phos) 1,000 mg ONCE ONCE PO Last administered on 12:41; Start 01/17/17 at 13:00; Stop 01/17/17 at 13:01; Status DC Calcium Gluconate 1 gm/Sodium Chloride 110 ml @ 110 mls/hr NOW ONCE IV Last administered on 01/17/17 17:12; Start 01/17/17 at 15:45; Stop 01/17/17 at 16:44 ; Status DC Potassium Chloride 100 ml @ 50 mls/hr Q2H IV Last administered on 01/18/17 12 :22; Start 01/17/17 at 21:00; Stop 01/18/17 at 04:59; Status DC Diphenhydramine HCl (Benadryl) 25 mg Q4H PRN PO SEE LABEL COMMENTS Last administered on 01/18/17 04:53; Start 01/18/17 at 05:00; Stop 01/18/17 at 08:00 ; Status DC Potassium Chloride 100 ml @ As Directed STK-MED ONCE .ROUTE ; Start 01/18/17 at 09:38; Stop 01/18/17 at 09:39; Status DC Acetaminophen (Tylenol) 650 mg Q6H PRN PO WHILE BLOOD INFUSING Last administered on 01/19/17 11:31; Start 01/18/17 at 10:00 Diphenhydramine HCl (Benadryl) 25 mg Q4H PRN PO WHILE BLOOD INFUSING Last administered on 01/19/17 11:31; Start 01/18/17 at 10:00 Potassium Phosphate 30 mmol/ Sodium Chloride 260 ml @ 43.333 mls/ hr ONCE ONCE IV Last administered on 01/18/17 16:29; Start 01/18/17 at 14:00; Stop 03/26 at 19:59; Status DC Potassium Chloride 100 ml @ As Directed STK-MED ONCE .ROUTE ; Start 01/18/17 at 12:15; Stop 01/18/17 at 12:16; Status DC Miscellaneous Information SPECIFIC LAB TO BE JASKARAN... ONCE ONCE .XX Last administered on 01/19/17 19:45; Start 01/19/17 at 19:45; Stop 01/19/17 at 19:46 ; Status DC Potassium Chloride (KCl) 20 meq Q12HR PO Last administered on 01/23/17 21:32; Start 01/19/17 at 09:30 Acetaminophen (Tylenol) 650 mg Q4H PRN PO SEE LABEL COMMENTS; Start 01/20/17 at 06:00 Diphenhydramine HCl (Benadryl) 25 mg Q4H PRN PO SEE LABEL COMMENTS; Start 01/20 at 06:00 Sodium Chloride 250 ml @ 15 mls/hr ONCE ONCE IV ; Start 01/19/17 at 12:00; Stop 01/20/17 at 04:39; Status DC Oxymetazoline HCl (Afrin 0.05% Freddie Manati) 2 spray ONCE STAT NASAL ; Start 01/19 at 11:49; Stop 01/19/17 at 12:00; Status DC Aminocaproic Acid 2000 mg/Sodium Chloride 230 ml @ 250 mls/hr ONCE STAT IV ; Start 01/19/17 at 11:49; Stop 01/19/17 at 12:13; Status DC Aminocaproic Acid 2000 mg/Sodium Chloride 250 ml @ 250 mls/hr ONCE STAT IV ; Start 01/19/17 at 12:13; Stop 01/19/17 at 12:23; Status DC Aminocaproic Acid 2000 mg/Sodium Chloride 250 ml @ 250 mls/hr ONCE STAT IV Last administered on 01/19/17 13:06; Start 01/19/17 at 12:23; Stop 01/19/17 at 13:22; Status DC Vancomycin HCl 1500 mg/Sodium Chloride 515 ml @ 257.5 mls/ hr Q8H IV Last administered on 01/20/17 13:29; Start 01/20/17 at 00:00; Stop 01/20/17 at 15:45 ; Status DC Miscellaneous Information SPECIFIC LAB TO BE DRAWN:VANCO TROUGH DATE TO BE DR... ONCE ONCE .XX ; Start 01/20/17 at 15:45; Stop 01/20/17 at 15:45; Status DC Vancomycin HCl 1500 mg/Sodium Chloride 515 ml @ 257.5 mls/ hr Q8H IV Last administered on 01/21/17 06:30; Start 01/20/17 at 21:00; Stop 01/21/17 at 19:56 ; Status DC Miscellaneous Information SPECIFIC LAB TO BE DRAWN:VANCOMYCIN TROUGH DATE TO... ONCE ONCE .XX Last administered on 01/21/17 04:45; Start 01/21/17 at 04:45; Stop 01/21/17 at 04:46; Status DC Fluconazole (Diflucan 40 Mg/ ml Liq) 200 mg DAILY PO ; Start 01/20/17 at 19:45; Stop 01/20/17 at 19:48; Status DC Fluconazole (Diflucan 40 Mg/ ml Liq) 200 mg DAILY PO Last administered on 08:51; Start 01/21/17 at 09:00 Potassium Chloride (KCl) 20 meq ONCE ONCE PO ; Start 01/21/17 at 10:00; Stop at 11:03; Status DC Miscellaneous Information SPECIFIC LAB TO BE JASKARAN... ONCE ONCE .XX ; Start 01/22 at 12:45; Stop 01/22/17 at 12:46; Status DC Lidocaine HCl (Xylocaine 1% Inj) 20 ml STK-MED ONCE .ROUTE Last administered on 01/22/17 12:16; Start 01/22/17 at 12:16; Stop 01/22/17 at 12:17; Status DC Fentanyl Citrate (fentaNYL INJ) 100 mcg STK-MED ONCE .ROUTE Last administered on 01/22/17 12:24; Start 01/22/17 at 12:24; Stop 01/22/17 at 12:25; Status DC Fentanyl Citrate (fentaNYL INJ) 100 mcg STK-MED ONCE .ROUTE Last administered on 01/22/17 12:24; Start 01/22/17 at 12:24; Stop 01/22/17 at 12:25; Status DC Midazolam HCl (Versed Inj) 5 mg STK-MED ONCE .ROUTE Last administered on 12:24; Start 01/22/17 at 12:24; Stop 01/22/17 at 12:25; Status DC Oxycodone HCl (Roxicodone) 5 mg Q4H PRN PO pain1-8 Last administered on 05:42; Start 01/23/17 at 08:15 Pantoprazole Sodium (Protonix Inj) 40 mg Q12HR IV PUSH Last administered on 21:31; Start 01/23/17 at 11:00 A/P Assessment and Plan A/P - 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 CSF cultures and BAL shows no growth. Zosyn and Vanco were discontinued. ultrasound of upper extremities negative. CMV negative, HIV and Hep B and C negative heme/onc managing with induction therapy, -- BMB showed 70% blasts in bone marrow MUGA scan shows normal EF and no wall motion abnormalities 12/30/2016 Port placement by IR completed 12/31/16 Patient is status post multiple transfusions for PRBC and platelet per oncology --Abdominal pain - splenic infarcts likely contributing. s/p EGD with esophageal candidiasis, esophageal ulcer and gastritis. continue PPI and Carafate. GI following. HIDA shows no significant abnormalities. CTA Abd showing no signs of occlusive atherosclerosis, C.diff negative x 2. MRI negative for acute findings. Splenic hemangiomas noted. continue with pain control; oxycodone was added. --thrombocytopenia - 2/2 AML, transfuse as needed per oncology. 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 Doppler studies negative for DVT. PT/OT eval/tx. IS and acapella use. Dacia Watkins MD Jan 24, 2017 07:38
[2017-01-24 07:48] LABS: ANION GAP 6 MEQ/L (5-15); AST (GOT) 14 U/L (15-37); BICARBONATE 31.3 MEQ/L (21.0-32.0); BLOOD UREA NITROGEN 6 MG/DL (7-18); CHLORIDE 101 MEQ/L (98-107); GLOMERULAR FILTRATION RATE 122 ML/MIN (>89); MAGNESIUM 2.2 MG/DL (1.5-2.5); POTASSIUM 3.9 MEQ/L (3.5-5.1); SODIUM (NA) 138 MEQ/L (136-145)
[2017-01-24 07:49] LABS: ALT (GPT) 34 U/L (12-78)
[2017-01-24 07:51] LABS: ALKALINE PHOSPHATASE 80 U/L (45-117); TOTAL BILIRUBIN ADULT 0.8 MG/DL (0.2-1.0)
[2017-01-24] MEDS ORDERED: ALTEPLASE RECOMBINANT 2 MG VIAL INTRACATH PRN (08:45)
[2017-01-24] MEDS: Hickman Catheter Daily NS Lock Flush IV FLUSH SCH (09:00)
[2017-01-24] MEDS: SODIUM CHLORIDE 0.9% FLUSH 10 ML FLUSH IV FLUSH SCH ×2 (09:00→22:25)
[2017-01-24] MEDS: POTASSIUM CHLORIDE 20 MEQ CONTROLLED RELEASE TAB PO SCH ×2 (09:45→21:00)
[2017-01-24] MEDS: ALLOPURINOL 100 MG TAB PO SCH (09:45)
[2017-01-24] MEDS: SUCRALFATE 1 GM/10 ML CUP PO SCH ×4 (09:45→22:23)
--- NOTE | 2017-01-24 09:46 | PD.ONC.PN ---
Subjective Subjective Remarks Afebrile overnight. Patient resting in bed in NAD. Still with abdominal pain, states the oxycodone is helping and lasting longer than the Dilaudid. Able to sleep last night. Ate lunch and dinner without pain in throat yesterday. Objective Data Date Time Temp Pulse Resp B/P (MAP) Pulse Ox O2 Delivery O2 Flow Rate FiO2 01/24/17 04:08 98.0 83 18 116/57 (76) 97 01/24/17 00:06 83 01/24/17 00:05 97.7 99 18 125/63 (83) 97 01/23/17 20:25 97.9 90 18 125/60 (81) 96 01/23/17 20:01 93 01/23/17 16:00 96.7 97 20 128/57 (80) 94 01/23/17 12:00 97.3 93 18 132/65 (87) 97 01/24/17 01/24/17 01/24/17 07:00 15:00 23:00 Output Total 750 ml Balance -750 ml Result Diagram: 01/24/17 0630 01/24/17 0630 Laboratory Results Laboratory Tests Test 01/24/17 06:30 White Blood Count 4.4 TH/MM3 Red Blood Count 2.78 MIL/MM3 Hemoglobin 8.4 GM/DL Hematocrit 24.2 % Mean Corpuscular Volume 87.1 FL Mean Corpuscular Hemoglobin 30.2 PG Mean Corpuscular Hemoglobin Concent 34.7 % Red Cell Distribution Width 14.4 % Platelet Count 318 TH/MM3 Mean Platelet Volume 7.9 FL Neutrophils (%) (Auto) 60.2 % Lymphocytes (%) (Auto) 26.1 % Monocytes (%) (Auto) 13.6 % Eosinophils (%) (Auto) 0.0 % Basophils (%) (Auto) 0.1 % Neutrophils # (Auto) 2.6 TH/MM3 Lymphocytes # (Auto) 1.1 TH/MM3 Monocytes # (Auto) 0.6 TH/MM3 Eosinophils # (Auto) 0.0 TH/MM3 Basophils # (Auto) 0.0 TH/MM3 CBC Comment AUTO DIFF Fibrinogen 392 mg/dL Blood Urea Nitrogen 6 MG/DL Creatinine 0.78 MG/DL Random Glucose 86 MG/DL Total Protein 5.7 GM/DL Albumin 2.1 GM/DL Calcium Level 8.8 MG/DL Magnesium Level 2.2 MG/DL Alkaline Phosphatase 80 U/L Aspartate Amino Transf (AST/SGOT) 14 U/L Alanine Aminotransferase (ALT/SGPT) 34 U/L Total Bilirubin 0.8 MG/DL Sodium Level 138 MEQ/L Potassium Level 3.9 MEQ/L Chloride Level 101 MEQ/L Carbon Dioxide Level 31.3 MEQ/L Anion Gap 6 MEQ/L Estimat Glomerular Filtration Rate 122 ML/MIN Administered Medications Medications (Trade) Dose Ordered Sig/Emma Route PRN Reason Start Time Stop Time Status Last Admin Dose Admin Sodium Chloride (NS Flush) 2 ml UNSCH PRN IV FLUSH FLUSH AFTER USING IV ACCESS 12/25/16 23:00 12/30/16 04:59 Sodium Chloride (NS Flush) 2 ml BID IV FLUSH 12/26/16 09:00 01/23/17 21:33 Acetaminophen (Tylenol) 650 mg Q6H PRN PO FEVER>100.4 12/25/16 23:00 01/20/17 20:44 Benzonatate (Tessalon) 100 mg Q4H PRN PO COUGH 12/26/16 05:15 12/26/16 15:12 Mupirocin (Bactroban 2% Oint) 1 applic TID TOPICAL 12/27/16 14:15 01/22/17 09:18 Sodium Chloride (NS Flush) 5 ml DAILY IV FLUSH 12/30/16 09:00 01/13/17 10:42 Heparin Sodium (Porcine) (Heparin Central Flush) 500 units UNSCH PRN IV FLUSH SEE PROTOCOL TABLE 12/30/16 06:30 12/31/16 15:45 Allopurinol (Zyloprim) 200 mg DAILY PO 01/06/17 09:00 01/23/17 08:50 Sucralfate (Carafate Liq) 1 gm ACHS PO 01/09/17 16:00 01/23/17 21:31 Ondansetron HCl (Zofran Inj) 8 mg Q8H PRN IV PUSH NAUSEA 01/11/17 17:15 Future hold 01/23/17 21:31 Hydromorphone HCl (Dilaudid Pf Inj) 2 mg Q4H PRN IV PUSH SEVERE BREAKTHROUGH PAIN 01/12/17 15:30 01/24/17 02:11 Promethazine HCl (Phenergan Inj) 12.5 mg Q4H PRN IV-CENTRAL nausea 01/14/17 16:45 01/20/17 12:00 Multi-Ingredient Mouthwash/Gargle (Magic Mouthwash Adult Liq) 10 ml QID PRN SWISH-SWAL sore throat 01/15/17 06:30 01/21/17 09:45 Potassium Chloride/Dextrose/ Sod Cl 1,000 ml @ 84 mls/hr [id number] IV 01/17/17 13:30 01/22/17 09:56 Acetaminophen (Tylenol) 650 mg Q6H PRN PO WHILE BLOOD INFUSING 01/18/17 10:00 01/19/17 11:31 Diphenhydramine HCl (Benadryl) 25 mg Q4H PRN PO WHILE BLOOD INFUSING 01/18/17 10:00 01/19/17 11:31 Potassium Chloride (KCl) 20 meq Q12HR PO 01/19/17 09:30 01/23/17 21:32 Fluconazole (Diflucan 40 Mg/ ml Liq) 200 mg DAILY PO 01/21/17 09:00 01/23/17 08:51 Oxycodone HCl (Roxicodone) 5 mg Q4H PRN PO pain1-8 01/23/17 08:15 01/24/17 05:42 Pantoprazole Sodium (Protonix Inj) 40 mg Q12HR IV PUSH 01/23/17 11:00 01/23/17 21:31 Objective Remarks GENERAL: Young man, supine in bed in [facility]. SKIN: Warm and dry. HEAD: Normocephalic. EYES: No injection or drainage. NECK: Supple, trachea midline. CARDIOVASCULAR: Regular rate and rhythm RESPIRATORY: Breath sounds equal bilaterally. No accessory muscle use. GASTROINTESTINAL: Abdomen soft, non-tender, nondistended. EXTREMITIES: No cyanosis. peripheral edema noted in all extremities. NEUROLOGICAL: awake and alert, normal speech. moving all extremities. 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 3am. Transfuse 1 unit irr. platelets, 1 unit irr. PRBC's. 01/08: D9. abdominal pain persistent. 2 units pRBC 01/09: D10. 2 additional units pRBC ordered. 1 unit platelets ordered 01/10: D11. 2 units pRBC. 1 unit platelets. + stool hemoccult 01/12: D13: 2 units pRBC. 1 unit platelets. 01/13: D14: 1 unit platelets. BB working to obtain HLA matched platelets 01/14: D15. 2 units HLA matched platelets given. spoke with BB they will have two units HLA matched on hand at all times. EGD today. 01/15: D16: 1 unit platelets, 1 unit pRBC. swelling in neck and face, ?SVC syndrome. CT chest and CT neck ordered 01/16: D 17: 1 unit platelets, [address] chest and neck negative for SVC syndrome. Continue to monitor blood counts. 01/17 D18: Labs pending. Start Amicar 1gm Q6h for overnight coughing up trav blood. Will transfuse for platelets less than 10k and Hgb less than 7.0. 01/18 D19: WBC 1.0, still thrombocytopenic, no bleeding from IV site or gums. Continue plans for platelet transfusion support. Afebrile. 01/19 D20: Patient received therapeutic transfusions 01/20: D21: No transfusion today. No further hematemesis. 01/21: D22: Transfuse 1 unit PRBC's today. Platelets appear to be recovering. 01/22: D23. repeat BMB today. d/c FINANCIAL REPORTING DIRECTOR. encourage patient to start mobilizing more. 01/23: D24. encourage oral intake and mobilization. was OOB for several hours 01/24: D25. pain improving. oral intake improving. 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 Patients with rearrangement of CBFB in AML may have a higher risk of NEEDLE SETTER involvement at diagnosis or at relapse than patients with other types of AML. Inversion 16 or t(16;16), with or without additional chromosome abnormalities, has been associated with complete remission and improved long-term survival. - MUGA scan shows normal EF and no wall motion abnormalities 12/30/2016 - Port placement by IR completed 12/31/16 - Induction chemotherapy started 12/31-- 7+3 regimen with Daunorubicin 90mg/m2 and Cytaribine 100mg/m2-- Dosing capped at BSA of 2 - CMV negative, HIV and Hep B and C negative (2) Abdominal pain ICD Codes: R10.9 - Unspecified abdominal pain Plan: -- Epigastric area pain--EGD, 01/14 showed thrush and distal esophageal ulcer as well as severe gastritis. -- Amylase, lipase WNL -- CT abdomen/ pelvis shows splenic infarcts; --CTA abdomen shows no mesenteric emboli --Abdominal U/S: shows no acute findings. enlarged liver and spleen. --GI following --on Protonix, Carafate, Diflucan +stool hemoccult Assessment 1. continue supportive care, pain management 2. await repeat bone marrow biopsy Attending Statement The exam, history, and the medical decision-making described in the above note were completed with the assistance of the mid-level provider. I reviewed and agree with the findings presented. I attest that I had a [id number] encounter with the patient on the same day, and personally performed and documented my assessment and findings in the medical record. Feeling better. Sat in chair for 3hours yesterday. Blood counts continue to improved. Repeat BM flow showed no conclusive residual leukemic cells. Final path pending. Continue supportive care. Problem Qualifiers (1) Acute myelogenous leukemia: Qualified Codes: C92.00 - Acute myeloblastic leukemia, not having achieved remission Fartun Pagan Jan 24, 2017 09:46 Tyree Burch MD Jan 24, 2017 11:33
[2017-01-24] MEDS: FLUCONAZOLE SUSP 40 MG/ML 35 ML BTL PO SCH (09:47)
[2017-01-24] MEDS: PANTOPRAZOLE SODIUM 40 MG VIAL IV PUSH SCH ×2 (09:47→22:24)
[2017-01-24 09:51] LABS: BANDS 14 % (0-6); BLASTS 1 % (0-0); CORRECTED NUCLEATED RBC 1 /100 WBC (0-0); METAMYELOCYTES 1 % (0-1); MYELOCYTES 5 % (0-0); NEUTROPHIL # MANUAL DIFF 2.6 TH/MM3 (1.8-7.7); PLATELET ESTIMATE SMEAR NORMAL (NORMAL); PLATELET MORPHOLOGY NORMAL (NORMAL); POLYS (SEG NEUTROPHILS) 38 % (16-70); SCAN/DIFF FINAL DIFF MANUAL; WBC DIFF SAMPLE 100
[2017-01-25 00:10] VITALS: BP 92/46; PULSE 94; RESP 19; TEMP 97.4; O2SAT 95
[2017-01-25] MEDS: D5-NS + KCL 40 MEQ INJ 1,000 ML IV SCH (00:15)
[2017-01-25 04:15] VITALS: BP 124/58; PULSE 90; RESP 19; TEMP 98; O2SAT 97
[2017-01-25] MEDS: SUCRALFATE 1 GM/10 ML CUP PO SCH ×4 (05:11→20:31)
[2017-01-25] MEDS: HYDROmorphone HCL PF 2 MG/ML VIAL IV PUSH PRN ×3 (05:11→18:25)
[2017-01-25 06:09] LABS: BASOPHIL % 0.4 % (0.0-2.0); HEMATOCRIT 24.9 % (39.0-51.0); LYMPH % 26.7 % (9.0-44.0); LYMPHOCYTE # 1.4 TH/MM3 (1.0-4.8); MEAN CELL VOLUME 87.4 FL (80.0-100.0); MEAN CORPUSCULAR HEMOGLOBIN 29.8 PG (27.0-34.0); MEAN CORPUSCULAR HGB CONC 34.1 % (32.0-36.0); MONO % 13.5 % (0.0-8.0); NEUT % 59.4 % (16.0-70.0); PLATELET COUNT 436 TH/MM3 (150-450); RED BLOOD COUNT 2.85 MIL/MM3 (4.50-5.90); RED CELL DISTRIBUTION WIDTH 14.3 % (11.6-17.2); WHITE BLOOD COUNT 5.1 TH/MM3 (4.0-11.0)
[2017-01-25 06:21] LABS: HEMO FLAGS AUTO DIFF
[2017-01-25 06:26] LABS: POTASSIUM 3.9 MEQ/L (3.5-5.1)
--- NOTE | 2017-01-25 07:48 | HHI.PR ---
Subjective Remarks resting comfortably with no distress. abdominal pain is better. no nausea or vomiting. Objective Vitals Vital Signs Date Time Temp Pulse Resp B/P (MAP) Pulse Ox O2 Delivery O2 Flow Rate FiO2 01/25/17 04:15 98.0 90 19 124/58 (80) 97 01/25/17 00:10 97.4 94 19 92/46 (61) 95 01/24/17 22:25 89 01/24/17 20:10 96.3 89 18 102/49 (66) 98 01/24/17 16:00 97.4 95 18 112/59 (76) 97 01/24/17 16:00 96.2 96 16 109/51 (70) 97 01/24/17 12:00 96.7 96 16 109/51 (70) 98 01/24/17 08:00 97.3 88 16 113/56 (75) 97 I/O 01/24/17 01/24/17 01/24/17 01/25/17 01/25/17 01/25/17 07:00 15:00 23:00 07:00 15:00 23:00 Intake Total 2100 ml 240 ml Output Total 750 ml 6650 ml 2100 ml Balance -750 ml -4550 ml -1860 ml Intake Oral 2100 ml 240 ml Output Urine Total 750 ml 6650 ml 2100 ml # Voids 3 Result Diagram: 01/25/17 0400 01/25/17 0400 Imaging Last Impressions Bone Biopsy CT 01/22/17 0000 Signed Impressions: Service Date/Time: Sunday, January 22, 2017 13:16 - CONCLUSION: 1. Uncomplicated CT guided bone marrow aspirate. 2. Uncomplicated CT guided bone marrow biopsy. Garcia Tello MD Upper Extremity Ultrasound 01/19/17 0000 Signed Impressions: Service Date/Time: Thursday, January 19, 2017 08:07 - CONCLUSION: Negative for DVT . Richy Bonner MD FACR Neck CT 01/15/17 08 Signed Impressions: Service Date/Time: Sunday, January 15, 2017 09:54 - CONCLUSION: Mild sinusitis within the maxillary sinuses, slight scarring right apex of the lung. Patricia Contreras MD Chest CT 01/15/17805 Signed Impressions: Service Date/Time: Sunday, January 15, 2017 09:58 - CONCLUSION: Left lung infiltrate has resolved and there is improvement in right lung infiltrates with residual infiltrate remaining. Patricia Contreras MD Abdomen X-Ray 01/13/17 1451 Signed Impressions: Service Date/Time: Friday, January 13, 2017 15:41 - CONCLUSION: Moderate gaseous distention of large and small bowel with appearance most suggestive of ileus Audie Gomez MD Abdomen MRI 01/12/17 0000 Signed Impressions: Service Date/Time: Thursday, January 12, 2017 09:47 - CONCLUSION: No evidence of acute abdominal process. Splenic hemangiomas Humza Decker MD Lower Extremity Ultrasound 01/10/17 0000 Signed Impressions: Service Date/Time: Tuesday, January 10, 2017 21:50 - CONCLUSION: Negative exam with no evidence of deep venous thrombosis. Jose Nicholson MD Hepatobiliary Scan Nuclear Medicine 01/09/17 0000 Signed Impressions: Service Date/Time: Monday, January 09, 2017 10:01 - CONCLUSION: 1. The patient refused imaging beyond 45 minutes. There is activity seen within small bowel and gallbladder with no evidence for cystic duct obstruction. Danie Kelly MD Abdomen/Pelvis CT 01/08/17 0000 Signed Impressions: Service Date/Time: Sunday, January 08, 2017 14:43 - CONCLUSION: 1. No evidence of mesenteric artery stenosis 2. Small amount of free fluid is present in the pelvis Humza Decker MD Abdomen Ultrasound 01/07/17 0000 Signed Impressions: Service Date/Time: December 01:11 - CONCLUSION: 1. No acute findings. Liver enlarged. Spleen mildly prominent at 14 cm. Leander Fiore MD Chest X-Ray 01/03/17 0600 Signed Impressions: Service Date/Time: Tuesday, January 03, 2017 04:42 - CONCLUSION: Normal examination. Right IJ [id number] catheter in excellent position. Lungs are clear. Enrique Ramos MD Port Line Insertion 12/31/16 0000 Signed Impressions: Service Date/Time: December 15:15 - CONCLUSION: Uncomplicated ultrasound and fluoroscopic guided implanted central venous port catheter placement as described in detail above. An 8 [employer] port was placed. Nilson Bonner MD Gated Heart Nuclear Medicine 12/30/16 0000 Signed Impressions: Service Date/Time: Friday, December 30, 2016 13:16 - CONCLUSION: Negative exam. Calculated ejection fraction of 56%% with adequate wall motion throughout. Bean Dugan MD Brain MRI 12/27/16 0000 Signed Impressions: Service Date/Time: Tuesday, December 27, 2016 21:58 - CONCLUSION: Unremarkable study. Patricia Contreras MD Lumbar Puncture Fluoroscopy 12/26/16 0000 Signed Impressions: Service Date/Time: Monday, December 26, 2016 17:03 - CONCLUSION: Uncomplicated fluoroscopically guided lumbar puncture with pressures as above. Nilson Bonner MD Head CT 12/25/16 194 Signed Impressions: Service Date/Time: Sunday, December 25, 2016 19:50 - CONCLUSION: Negative noncontrast head CT. Audie Maria MD Objective Remarks GENERAL: This is a well-nourished, well-developed patient, in no apparent distress. CARDIOVASCULAR: Regular rate and regular rhythm without murmurs, gallops, or rubs. RESPIRATORY: Clear to auscultation. Breath sounds equal bilaterally. No wheezes , rales, or rhonchi. GASTROINTESTINAL: Abdomen soft, non-tender, nondistended. Normal, active bowel sounds MUSCULOSKELETAL: Extremities without clubbing, cyanosis, or edema. NEURO: Alert & Oriented x4 to person, place, time, situation. Moves all ext x4 Procedures 12/31 [id number] placement bone marrow biopsy Medications and IVs Current Medications Acetaminophen (Tylenol) 650 mg ONCE ONCE PO Last administered on 12/25/16 20: 28; Start 12/25/16 at 19:45; Stop 12/25/16 at 19:46; Status DC Sodium Chloride 1,000 ml @ 1,000 mls/hr Q1H ONCE IV Last administered on 20:27; Start 12/25/16 at 19:41; Stop 12/25/16 at 20:40; Status DC Sodium Chloride 1,000 ml @ 1,000 mls/hr Q1H ONCE IV Last administered on 20:41; Start 12/25/16 at 19:41; Stop 12/25/16 at 20:40; Status DC Sodium Chloride 1,000 ml @ 1,000 mls/hr Q1H ONCE IV Last administered on 21:09; Start 12/25/16 at 19:41; Stop 12/25/16 at 20:40; Status DC Sodium Chloride 900 ml @ 1,000 mls/hr Q54M ONCE IV Last administered on 21:46; Start 12/25/16 at 19:41; Stop 12/25/16 at 20:34; Status DC Prochlorperazine Edisylate (Compazine Inj) 10 mg ONCE ONCE IV PUSH Last administered on 12/25/16 20:28; Start 12/25/16 at 19:45; Stop 12/25/16 at 19:46 ; Status DC Diphenhydramine HCl (Benadryl Inj) 25 mg ONCE ONCE IV PUSH Last administered on 12/25/16 20:27; Start 12/25/16 at 19:45; Stop 12/25/16 at 19:46; Status DC Cefepime HCl 2000 mg/Sodium Chloride 100 ml @ 200 mls/hr ONCE STAT IV Last administered on 12/25/16 21:46; Start 12/25/16 at 21:13; Stop 12/25/16 at 21:42 ; Status DC Pharmacy Profile Note 0 ml @ 0 mls/hr UNSCH OTHER ; Start 12/25/16 at 23:00; Stop 12/30/16 at 20:00; Status DC Cefepime HCl 1000 mg/Sodium Chloride 100 ml @ 200 mls/hr Q12H IV Last administered on 12/28/16 08:18; Start 12/26/16 at 09:00; Stop 12/28/16 at 19:05 ; Status DC Sodium Chloride 1,000 ml @ 100 mls/hr Q10H IV Last administered on 12/27/16 17:17; Start 12/25/16 at 23:00; Stop 12/28/16 at 09:00; Status DC Sodium Chloride (NS Flush) 2 ml UNSCH PRN IV FLUSH FLUSH AFTER USING IV ACCESS Last administered on 12/30/16 04:59; Start 12/25/16 at 23:00 Sodium Chloride (NS Flush) 2 ml BID IV FLUSH Last administered on 01/24/17 22: 25; Start 12/26/16 at 09:00 Ondansetron HCl (Zofran Inj) 4 mg Q6H PRN IVP NAUSEA OR VOMITING Last administered on 01/05/17 15:10; Start 12/25/16 at 23:00; Stop 01/06/17 at 15:54 ; Status DC Acetaminophen (Tylenol) 650 mg Q6H PRN PO FEVER>100.4 Last administered on 01/20 20:44; Start 12/25/16 at 23:00 Acetaminophen/ Hydrocodone Bitart (Moody 5-325 Mg) 1 tab Q4H PRN PO PAIN SCALE 3 TO 5 Last administered on 12/27/16 12:05; Start 12/25/16 at 23:00; Stop 12/27/16 at 13:56; Status DC Morphine Sulfate (Morphine Inj) 2 mg Q3H PRN IV Pain 6-10 Last administered on 01/06/17 22:09; Start 12/25/16 at 23:00; Stop 01/06/17 at 23:13; Status DC Senna/Docusate Sodium (Rika-Colace) 1 tab BID PO Last administered on 01/08/17 08:12; Start 12/26/16 at 09:00; Stop 01/09/17 at 12:59; Status DC Magnesium Hydroxide (Milk Of Magnesia Liq) 30 ml Q12H PRN PO MILD - MODERATE CONSTIPATION; Start 12/25/16 at 23:00 Sennosides (Senokot) 17.2 mg Q12H PRN PO MODERATE - SEVERE CONSTIPATION; Start 12/25/16 at 23:00 Bisacodyl (Dulcolax Supp) 10 mg DAILY PRN RECTAL SEVERE CONSITIPATION; Start at 23:00 Lactulose (Lactulose Liq) 30 ml DAILY PRN PO SEVERE CONSITIPATION; Start at 23:00 Vancomycin HCl 2500 mg/Sodium Chloride 525 ml @ 250 mls/hr Q12H IV Last administered on 12/26/16 00:27; Start 12/26/16 at 01:00; Stop 12/26/16 at 04:00 ; Status DC Guaifenesin/ Dextromethorphan (Robitussin Dm 200-20 Mg/10 ml Liq) 10 ml Q4H PRN PO cough Last administered on 12/26/16 18:19; Start 12/26/16 at 01:45; Stop 12/26/16 at 19:43; Status DC Benzonatate (Tessalon) 100 mg Q4H PRN PO COUGH Last administered on 12/26/16 15:12; Start 12/26/16 at 05:15 Vancomycin HCl 2000 mg/Sodium Chloride 520 ml @ 260 mls/hr Q12H IV Last administered on 12/27/16 17:16; Start 12/26/16 at 13:00; Stop 12/27/16 at 18:13 ; Status DC Miscellaneous Information SPECIFIC LAB TO BE JASKARAN... ONCE ONCE .XX Last administered on 12/27/16 17:05; Start 12/27/16 at 12:45; Stop 12/27/16 at 12:46 ; Status DC Sodium Bicarbonate 50 ml @ As Directed STK-MED ONCE .ROUTE Last administered on 12/26/16 16:54; Start 12/26/16 at 16:54; Stop 12/26/16 at 16:55; Status DC Iohexol (Omnipaque 350 Inj) 71 ml STK-MED ONCE IV Last administered on 17:47; Start 12/26/16 at 17:47; Stop 12/26/16 at 17:48; Status DC Albuterol/ Ipratropium (Duoneb Neb) 1 ampule Q6HR WHILE AWAKE NEB NEB Last administered on 12/30/16 09:15; Start 12/26/16 at 20:00; Stop 12/30/16 at 20:00 ; Status DC Guaifenesin/ Codeine Phosphate (Robitussin Ac 200-20 Mg/10 ml Liq) 10 ml Q4H PRN PO codine; Start 12/26/16 at 19:45; Stop 12/29/16 at 11:01; Status DC Promethazine HCl/ Codeine (Phenergan-Codeine Liq) 5 ml Q4H PRN PO COUGH Last administered on 12/31/16 17:09; Start 12/26/16 at 20:00; Stop 01/12/17 at 11:12 ; Status DC Sodium Chloride 250 ml @ 15 mls/hr ONCE ONCE IV Last administered on 23:23; Start 12/26/16 at 23:15; Stop 12/27/16 at 15:54; Status DC Acetaminophen (Tylenol) 650 mg Q4H PRN PO SEE LABEL COMMENTS; Start 12/26/16 at 23:15; Stop 12/27/16 at 03:16; Status DC Diphenhydramine HCl (Benadryl) 25 mg Q4H PRN PO SEE LABEL COMMENTS; Start 12/26 at 23:15; Stop 12/27/16 at 03:16; Status DC Calcium Gluconate 1 gm/Dextrose 110 ml @ 110 mls/hr ONCE ONCE IV Last administered on 12/26/16 23:56; Start 12/26/16 at 23:30; Stop 12/27/16 at 00:29 ; Status DC Diphenhydramine HCl (Benadryl) 25 mg Q4H PRN PO SEE LABEL COMMENTS Last administered on 01/16/17 02:23; Start 12/27/16 at 04:15; Stop 01/16/17 at 13:01; Status DC Acetaminophen (Tylenol) 650 mg Q4H PRN PO SEE LABEL COMMENTS Last administered on 01/15/17 13:52; Start 12/27/16 at 04:15; Stop 01/16/17 at 13:01; Status DC Mupirocin (Bactroban 2% Oint) 1 applic TID TOPICAL Last administered on 09:18; Start 12/27/16 at 14:15 Dexamethasone (Decadron) 4 mg Q12HR PO ; Start 12/27/16 at 21:00; Stop 12/27/16 at 21:00; Status DC Dexamethasone (Decadron) 4 mg ONCE ONCE PO Last administered on 12/27/16 14: 30; Start 12/27/16 at 14:00; Stop 12/27/16 at 14:01; Status DC Oxycodone HCl (Roxicodone) 5 mg Q6H PRN PO PAIN 1-10 Last administered on 21:56; Start 12/27/16 at 14:00; Stop 01/06/17 at 18:54; Status DC Lisinopril (Prinivil) 10 mg DAILY PO ; Start 12/28/16 at 15:00; Stop 12/28/16 at 15:00; Status DC Clonidine (Catapres) 0.2 mg Q6H PRN PO SBP > 160; Start 12/27/16 at 14:15; Stop 12/27/16 at 14:15; Status DC Diatrizoate Meglum/ Diatrizoate Sod (Md Jayda Harrell) 18 ml ONCE ONCE PO Last administered on 12/27/16 17:16; Start 12/27/16 at 16:45; Stop 12/27/16 at 16:46; Status DC Albuterol Sulfate (Albuterol Concentrated Neb) 2.5 mg WHEEL BUFFER NEB ; Start 12/27 at 16:45; Stop 12/31/16 at 16:44; Status DC Lidocaine HCl (Lidocaine Pf 4% Neb) 3 ml WHEEL BUFFER NEB ; Start 12/27/16 at 16:45 ; Stop 12/31/16 at 16:44; Status DC Vancomycin HCl 2000 mg/Sodium Chloride 520 ml @ 260 mls/hr Q12H IV Last administered on 12/29/16 02:15; Start 12/28/16 at 05:00; Stop 12/29/16 at 03:00 ; Status DC Miscellaneous Information SPECIFIC LAB TO BE DRAWN:VANCOMY... ONCE ONCE .XX ; Start 12/29/16 at 04:45; Stop 12/29/16 at 04:46; Status DC Sodium Chloride 250 ml @ 15 mls/hr ONCE ONCE IV ; Start 12/27/16 at 18:30; Stop 12/27/16 at 18:38; Status DC Sodium Chloride 250 ml @ 15 mls/hr ONCE ONCE IV ; Start 12/27/16 at 18:45; Stop 12/28/16 at 11:24; Status DC Gadodiamide (Omniscan Pf Inj) 30 ml STK-MED ONCE IVCONTRAST Last administered on 12/27/16 22:10; Start 12/27/16 at 22:10; Stop 12/27/16 at 22:11; Status DC Iohexol (Omnipaque 350 Inj) 95 ml STK-MED ONCE IVCONTRAST Last administered on 12/27/16 23:00; Start 12/27/16 at 23:00; Stop 12/27/16 at 23:03; Status DC Lactated Ringer's 1,000 ml @ 30 mls/hr Q24H PRN IV SEE LABEL COMMENTS; Start at 06:15; Stop 12/31/16 at 06:14; Status DC Sodium Chloride 500 ml @ 30 mls/hr [id number] PRN IV SEE LABEL COMMENTS; Start at 06:15; Stop 12/31/16 at 06:14; Status DC Povidone Iodine (Betadine 5% Antisepsis Kit) 1 applic WHEEL BUFFER PRN EACH NARE SEE LABEL COMMENTS; Start 12/28/16 at 06:15; Stop 12/31/16 at 06:14; Status DC Chlorhexidine Gluconate (Chlorhexidine 2% Cloth) 3 pack WHEEL BUFFER PRN TOPICAL SEE LABEL COMMENTS; Start 12/28/16 at 06:15; Stop 12/31/16 at 06:14; Status DC Insulin Human Regular (NovoLIN R INJ) See Protocol Table ... WHEEL BUFFER PRN SQ SEE PROTOCOL TABLE; Start 12/28/16 at 06:15; Stop 12/31/16 at 06:14; Status DC Dextrose 1,000 ml @ 84 mls/hr [id number] IV Last administered on 01/01/17 22:03 ; Start 12/28/16 at 09:00; Stop 01/02/17 at 12:34; Status DC Calcium Carbonate (Tums Chew) 500 mg Q6H PRN CHEW DYSPEPSIA OR HEARTBURN; Start 12/28/16 at 14:00; Stop 01/23/17 at 13:13; Status DC Pantoprazole Sodium (Protonix) 20 mg DAILY PO Last administered on 01/08/17 08: 13; Start 12/29/16 at 09:00; Stop 01/08/17 at 17:45; Status DC Famotidine (Pepcid Inj) 20 mg ONCE ONCE IV PUSH Last administered on 14:27; Start 12/28/16 at 14:20; Stop 12/28/16 at 14:21; Status DC Lidocaine HCl (Xylocaine 1% Inj) 20 ml STK-MED ONCE .ROUTE Last administered on 12/28/16 14:49; Start 12/28/16 at 14:49; Stop 12/28/16 at 14:50; Status DC Sodium Chloride (Sodium Chloride 0.9% Inj) 40 ml STK-MED ONCE .ROUTE ; Start at 15:54; Stop 12/28/16 at 15:55; Status DC Lidocaine HCl (Xylocaine 2% Inj) 50 ml STK-MED ONCE .ROUTE ; Start 12/28/16 at 15:55; Stop 12/28/16 at 15:56; Status DC Lidocaine HCl (Xylocaine 2% Viscous) 15 ml STK-MED ONCE .ROUTE ; Start 12/28/16 at 15:55; Stop 12/28/16 at 15:56; Status DC Lidocaine HCl (Xylocaine-Mpf 4% Inj) 5 ml STK-MED ONCE .ROUTE ; Start 12/28/16 at 15:55; Stop 12/28/16 at 15:56; Status DC Epinephrine HCl (Adrenalin (1:1000) Inj) 2 mg STK-MED ONCE .ROUTE ; Start at 15:55; Stop 12/28/16 at 15:56; Status DC Fentanyl Citrate (fentaNYL INJ) 250 mcg STK-MED ONCE .ROUTE Last administered on 12/28/16 16:38; Start 12/28/16 at 16:38; Stop 12/28/16 at 16:39; Status DC Midazolam HCl (Versed Inj) 4 mg STK-MED ONCE .ROUTE Last administered on 16:38; Start 12/28/16 at 16:38; Stop 12/28/16 at 16:39; Status DC Sugammadex Sodium (Bridion Inj) 400 mg STK-MED ONCE IV PUSH ; Start 12/28/16 at 17:30; Stop 12/28/16 at 17:31; Status DC Albuterol Sulfate (Albuterol Neb) 2.5 mg UNSCH X1 PRN NEB SHORTNESS OF BREATH; Start 12/28/16 at 18:15; Stop 12/29/16 at 18:14; Status DC Albuterol Sulfate (*ALBUTEROL NEB PERIprocedure ONLY) 2.5 mg STK-MED ONCE NEB Last administered on 12/28/16 18:20; Start 12/28/16 at 18:20; Stop 12/28/16 at 18:21; Status DC Fentanyl Citrate (fentaNYL INJ) 100 mcg STK-MED ONCE .ROUTE ; Start 12/28/16 at 18:27; Stop 12/28/16 at 18:28; Status DC Miscellaneous Information ALL NURSING DEPARTME... UNSCH PRN .XX SEE LABEL COMMENTS; Start 12/28/16 at 18:45; Stop 12/29/16 at 18:44; Status DC Lorazepam (Ativan Inj) 2 mg STK-MED ONCE .ROUTE ; Start 12/28/16 at 18:35; Stop 12/28/16 at 18:36; Status DC Cefepime HCl 2000 mg/Sodium Chloride 100 ml @ 200 mls/hr Q12H IV Last administered on 12/29/16 09:08; Start 12/28/16 at 21:00; Stop 12/29/16 at 22:34 ; Status DC Fluconazole/ Sodium Chloride 200 ml @ 100 mls/hr Q24H IV Last administered on 01/04/17 21:49; Start 12/28/16 at 22:00; Stop 01/05/17 at 17:06; Status DC Azithromycin 500 mg/Sodium Chloride 250 ml @ 250 mls/hr Q24H IV Last administered on 01/03/17 21:17; Start 12/28/16 at 20:00; Stop 01/04/17 at 14:48 ; Status DC Fentanyl Citrate (fentaNYL INJ) 100 mcg STK-MED ONCE .ROUTE ; Start 12/28/16 at 19:47; Stop 12/28/16 at 19:48; Status DC Vancomycin HCl 2000 mg/Sodium Chloride 520 ml @ 260 mls/hr Q12H IV Last administered on 12/30/16 16:14; Start 12/29/16 at 14:00; Stop 12/30/16 at 20:00 ; Status DC Miscellaneous Information SPECIFIC LAB TO BE DRAWN:VANCOMYCIN TROUGH DATE TO... ONCE ONCE .XX Last administered on 12/30/16 02:00; Start 12/30/16 at 01:45; Stop 12/30/16 at 01:46; Status DC Methylprednisolone Sodium Succinate (SoluMEDROL INJ) 40 mg ONCE ONCE IV PUSH Last administered on 12/29/16 22:08; Start 12/29/16 at 21:15; Stop 12/29/16 at 21:16; Status DC Methylprednisolone Sodium Succinate (SoluMEDROL INJ) 125 mg NOW ONCE IV ; Start 12/29/16 at 21:30; Stop 12/29/16 at 21:30; Status DC Allopurinol (Zyloprim) 200 mg BID PO Last administered on 01/05/17 21:47; Start 12/29/16 at 22:00; Stop 01/05/17 at 23:59; Status DC Cefepime HCl 2000 mg/Sodium Chloride 100 ml @ 200 mls/hr Q12H IV Last administered on 01/04/17 11:09; Start 12/29/16 at 23:00; Stop 01/04/17 at 14:48 ; Status DC Sodium Chloride (NS Flush) 5 ml DAILY IV FLUSH Last administered on 01/13/17 10 :42; Start 12/30/16 at 09:00 Heparin Sodium (Porcine) (Heparin Central Flush) 500 units DAILY IV FLUSH ; Start 12/30/16 at 09:00 Sodium Chloride (NS Flush) 5 ml UNSCH PRN IV FLUSH SEE PROTOCOL TABLE; Start at 06:30 Heparin Sodium (Porcine) (Heparin Central Flush) 500 units UNSCH PRN IV FLUSH SEE PROTOCOL TABLE Last administered on 12/31/16 15:45; Start 12/30/16 at 06:30 Acetaminophen (Tylenol) 650 mg ONCE ONCE PO Last administered on 12/30/16 10: 38; Start 12/30/16 at 08:30; Stop 12/30/16 at 08:31; Status DC Diphenhydramine HCl (Benadryl) 25 mg ONCE ONCE PO Last administered on 10:37; Start 12/30/16 at 08:30; Stop 12/30/16 at 08:31; Status DC Methylprednisolone Sodium Succinate (SoluMEDROL INJ) 40 mg ONCE ONCE IV PUSH Last administered on 12/30/16 10:37; Start 12/30/16 at 10:00; Stop 12/30/16 at 10:04; Status DC Cefazolin Sodium/ Dextrose 50 ml @ 100 mls/hr WHEEL BUFFER IV ; Start 12/30/16 at 10:30; Stop 01/03/17 at 10:29; Status DC Methylprednisolone Sodium Succinate (SoluMEDROL INJ) 40 mg ONCE IM ; Start 12/31 at 07:00; Status UNV Granisetron HCl 1 mg/Dexamethasone Sodium Phosphate 20 mg/Sodium Chloride 56 ml @ 336 mls/hr Q24H IV Last administered on 01/07/17 04:14; Start 12/31/16 at 17:30; Stop 01/06/17 at 17:39; Status DC Midazolam HCl (Versed Inj) 4 mg STK-MED ONCE .ROUTE Last administered on 14:40; Start 12/31/16 at 14:40; Stop 12/31/16 at 14:41; Status DC Fentanyl Citrate (fentaNYL INJ) 250 mcg STK-MED ONCE .ROUTE Last administered on 12/31/16 14:40; Start 12/31/16 at 14:40; Stop 12/31/16 at 14:41; Status DC Cytarabine 200 mg/ Sodium Chloride 500 ml @ 20.833 mls/ hr Q24H IV Last administered on 01/07/17 06:27; Start 12/31/16 at 18:30; Stop 01/07/17 at 18:29 ; Status DC Daunorubicin HCl 180 mg/Sodium Chloride 136 ml @ 272 mls/hr Q24H IV Last administered on 01/03/17 01:51; Start 12/31/16 at 18:00; Stop 01/02/17 at 18:29 ; Status DC Lidocaine/ Epinephrine (Xylocaine-Epi Mpf 2%-1:200,000 Inj) 20 ml STK-MED ONCE .ROUTE Last administered on 12/31/16 15:19; Start 12/31/16 at 15:08; Stop at 15:09; Status DC Heparin Sodium (Porcine) (Heparin Central Flush) 500 units UNSCH IV FLUSH ; Start 12/31/16 at 15:45 Sodium Chloride (NS Flush) 5 ml UNSCH PRN IVF SEE PROTOCOL; Start 12/31/16 at 15:45 Heparin Sodium (Porcine) (Heparin Central Flush) 250 units UNSCH PRN IV FLUSH SEE PROTOCOL; Start 12/31/16 at 15:45 Methylprednisolone Sodium Succinate (SoluMEDROL INJ) 40 mg ONCE ONCE IV Last administered on 12/31/16 21:09; Start 12/31/16 at 17:00; Stop 12/31/16 at 17:01 ; Status DC Sodium Chloride 1,000 ml @ 42 mls/hr [id number] IV Last administered on 17:34; Start 01/02/17 at 12:45; Stop 01/08/17 at 11:33; Status DC Promethazine HCl (Phenergan) 25 mg Q4H PRN PO nausea or vomitting Last administered on 01/14/17 03:49; Start 01/04/17 at 10:15; Stop 01/14/17 at 16:35; Status DC Levofloxacin (Levaquin) 750 mg DAILY@1100 PO Last administered on 01/05/17 10: 54; Start 01/04/17 at 16:00; Stop 01/06/17 at 12:33; Status DC Calcium Chloride 1 gm/Dextrose 110 ml @ 110 mls/hr ONCE ONCE IV Last administered on 01/04/17 23:43; Start 01/04/17 at 23:00; Stop 01/04/17 at 23:59 ; Status DC Dicyclomine HCl (Bentyl) 20 mg TID PO Last administered on 01/10/17 09:52; Start 01/05/17 at 10:00; Stop 01/10/17 at 10:54; Status DC Sodium Chloride 500 ml @ 250 mls/hr Q2H ONCE IV Last administered on 14:07; Start 01/05/17 at 13:45; Stop 01/05/17 at 15:44; Status DC Ondansetron HCl (Zofran Inj) 4 mg Q8HR IV PUSH Last administered on 01/08/17 05 :22; Start 01/06/17 at 06:00; Stop 01/08/17 at 06:00; Status DC Allopurinol (Zyloprim) 200 mg DAILY PO Last administered on 01/24/17 09:45; Start 01/06/17 at 09:00 Calcium Chloride 1 gm/Sodium Chloride 110 ml @ 110 mls/hr ONCE ONCE IV Last administered on 01/06/17 09:35; Start 01/06/17 at 08:30; Stop 01/06/17 at 09:29 ; Status DC Hyoscyamine Sulfate (Levsin) 0.25 mg Q4H PRN PO CRAMPS Last administered on 10:06; Start 01/06/17 at 09:30; Stop 01/23/17 at 13:13; Status DC Morphine Sulfate (Morphine Inj) 2 mg NOW ONCE IV Last administered on 13:15; Start 01/06/17 at 13:15; Stop 01/06/17 at 13:16; Status DC Calcium Chloride 1 gm/Sodium Chloride 110 ml @ 110 mls/hr ONCE ONCE IV Last administered on 01/06/17 19:01; Start 01/06/17 at 15:00; Stop 01/06/17 at 15:59 ; Status DC Iohexol (Omnipaque 350 Inj) 81 ml STK-MED ONCE IVCONTRAST Last administered on 01/06/17 15:27; Start 01/06/17 at 15:27; Stop 01/06/17 at 15:28; Status DC Oxycodone HCl (Roxicodone) 5 mg ONCE ONCE PO ; Start 01/06/17 at 19:00; Stop at 19:01; Status Cancel Oxycodone HCl (Roxicodone) 5 mg Q6H PRN PO pain; Start 01/06/17 at 18:15; Stop 01/06/17 at 18:42; Status DC Hydromorphone HCl (Dilaudid Pf Inj) 0.5 mg ONCE ONCE IV Last administered on 19:00; Start 01/06/17 at 19:00; Stop 01/06/17 at 19:01; Status DC Oxycodone HCl (Roxicodone) 5 mg Q4H PRN PO PAIN 1-10 Last administered on 22:51; Start 01/06/17 at 19:00; Stop 01/09/17 at 12:32; Status DC Hydromorphone HCl (Dilaudid Pf Inj) 1 mg Q4H PRN IV PAIN SCALE 1 TO 10 Last administered on 01/08/17 02:12; Start 01/06/17 at 23:15; Stop 01/08/17 at 02:41; Status DC Sodium Chloride 1,000 ml @ 999 mls/hr BOLUS ONCE IV Last administered on 01/07 10:15; Start 01/07/17 at 10:00; Stop 01/07/17 at 11:00; Status DC Sodium Chloride 1,000 ml @ 75 mls/hr [id number] IV Last administered on 01/13/17 14:23; Start 01/07/17 at 14:00; Stop 01/13/17 at 14:51; Status DC Hydromorphone HCl (Dilaudid Pf Inj) 1 mg Q3H PRN IV PAIN SCALE 1 TO 10 Last administered on 01/08/17 08:12; Start 01/08/17 at 02:45; Stop 01/08/17 at 11:58; Status DC Hydromorphone HCl (Dilaudid Pf Inj) 1.5 mg ONCE ONCE IV PUSH Last administered on 01/08/17 11:44; Start 01/08/17 at 11:15; Stop 01/08/17 at 11:18; Status DC Sodium Chloride 250 ml @ 15 mls/hr ONCE ONCE IV Last administered on 16:30; Start 01/08/17 at 11:30; Stop 01/09/17 at 04:09; Status DC Acetaminophen (Tylenol) 650 mg Q4H PRN PO SEE LABEL COMMENTS; Start 01/08/17 at 11:30; Status Cancel Diphenhydramine HCl (Benadryl) 25 mg Q4H PRN PO SEE LABEL COMMENTS; Start at 11:30; Status Cancel Hydromorphone HCl (Dilaudid Pf Inj) 1.5 mg Q3H PRN IV PAIN SCALE 1 TO 10 Last administered on 01/09/17 11:17; Start 01/08/17 at 14:45; Stop 01/09/17 at 12:32; Status DC Iohexol (Omnipaque 350 Inj) 100 ml STK-MED ONCE IVCONTRAST Last administered on 01/08/17 14:41; Start 01/08/17 at 14:41; Stop 01/08/17 at 14:43; Status DC Pantoprazole Sodium (Protonix) 20 mg BID PO Last administered on 01/09/17 08:51 ; Start 01/08/17 at 21:00; Stop 01/09/17 at 13:51; Status DC Sodium Chloride 250 ml @ 15 mls/hr ONCE ONCE IV ; Start 01/09/17 at 08:15; Stop 01/10/17 at 00:54; Status DC Oxycodone HCl (Roxicodone) 10 mg ONCE ONCE PO Last administered on 01/09/17 09 :24; Start 01/09/17 at 09:00; Stop 01/09/17 at 09:17; Status DC Hydromorphone HCl (Dilaudid Pf Inj) 2 mg Q3H PRN IV PAIN SCALE 1 TO 10 Last administered on 01/11/17 13:34; Start 01/09/17 at 14:45; Stop 01/11/17 at 13:42; Status DC Hydromorphone HCl (Dilaudid Pf Inj) 2 mg ONCE ONCE IV PUSH Last administered on 01/09/17 13:16; Start 01/09/17 at 13:00; Stop 01/09/17 at 13:07; Status DC Pantoprazole Sodium (Protonix Inj) 40 mg Q12HR IV PUSH Last administered on 01/11 08:05; Start 01/09/17 at 14:00; Stop 01/11/17 at 15:02; Status DC Sucralfate (Carafate Liq) 1 gm ACHS PO Last administered on 01/25/17 05:11; Start 01/09/17 at 16:00 Piperacillin Sod/ Tazobactam Sod 100 ml @ 200 mls/hr Q8H IV Last administered on 01/13/17 15:51; Start 01/09/17 at 15:00; Stop 01/13/17 at 19:46; Status DC Sodium Chloride 250 ml @ 15 mls/hr ONCE ONCE IV Last administered on 10:20; Start 01/10/17 at 08:00; Stop 01/11/17 at 00:39; Status DC Oxycodone HCl (Roxicodone) 10 mg ONCE ONCE PO Last administered on 01/10/17 11 :12; Start 01/10/17 at 11:00; Stop 01/10/17 at 11:01; Status DC Lactobacillus Acidophilus (Lactinex) 1 tab TID PO Last administered on 12:57; Start 01/10/17 at 18:00; Stop 01/13/17 at 14:38; Status DC Oxycodone HCl (Roxicodone) 10 mg ONCE ONCE PO Last administered on 01/11/17 09 :32; Start 01/11/17 at 08:15; Stop 01/11/17 at 08:26; Status DC Hydromorphone HCl (Dilaudid Pf Inj) 2 mg Q2H PRN IV PAIN SCALE 1 TO 10 Last administered on 01/11/17 15:56; Start 01/11/17 at 13:45; Stop 01/12/17 at 08:06; Status DC Pantoprazole Sodium 80 mg/ Sodium Chloride 100 ml @ 10 mls/hr CONTINUOUS IV Last administered on 01/22/17 09:56; Start 01/11/17 at 16:00; Stop 01/23/17 at 09:58; Status DC Naloxone HCl (Narcan Inj) 0.4 mg UNSCH PRN IV RESPIRATORY RATE LESS THAN 10; Start 01/11/17 at 15:15; Stop 01/22/17 at 09:43; Status DC Hydromorphone HCl (Dilaudid PARTS FINISHER Inj) 6 mg UNSCH IV Last administered on 09:11; Start 01/11/17 at 15:15; Stop 01/22/17 at 09:43; Status DC PARTS FINISHER Dosage Infused (Pha) 1 Q8HR OTHER Last administered on 01/22/17 06:00; Start 01/11/17 at 15:45; Stop 01/22/17 at 09:43; Status DC Ondansetron HCl (Zofran Inj) 8 mg Q8H PRN IV PUSH NAUSEA Last administered on 21:31; Start 01/11/17 at 17:15; Status Future hold Hydromorphone HCl (Dilaudid Pf Inj) 1 mg ONCE ONCE IV PUSH Last administered on 01/12/17 02:37; Start 01/12/17 at 02:30; Stop 01/12/17 at 02:31; Status DC Propofol (Diprivan 200 Mg/20 ml Inj) 400 mg STK-MED ONCE IV ; Start 12/28/16 at 12:00; Stop 01/12/17 at 08:23; Status DC Sodium Chloride 250 ml @ 15 mls/hr ONCE ONCE IV Last administered on 10:00; Start 01/12/17 at 10:00; Stop 01/13/17 at 02:39; Status DC Hydromorphone HCl (Dilaudid Pf Inj) 2 mg STAT ONCE IV PUSH Last administered on 01/12/17 11:09; Start 01/12/17 at 11:00; Stop 01/12/17 at 11:01; Status DC Gadodiamide (Omniscan Pf Inj) 30 ml STK-MED ONCE IV PUSH Last administered on 10:51; Start 01/12/17 at 10:51; Stop 01/12/17 at 10:52; Status DC Hydromorphone HCl (Dilaudid Pf Inj) 2 mg Q4H PRN IV PUSH SEVERE BREAKTHROUGH PAIN Last administered on 01/25/17 05:11; Start 01/12/17 at 15:30 Sodium Chloride 250 ml @ 15 mls/hr ONCE ONCE IV Last administered on 08:30; Start 01/13/17 at 08:30; Stop 01/14/17 at 01:09; Status DC Metronidazole 100 ml @ 100 mls/hr Q6H IV ; Start 01/13/17 at 11:15; Stop at 11:15; Status DC Ciprofloxacin/ Dextrose 200 ml @ 200 mls/hr Q12H IV ; Start 01/13/17 at 11:15; Stop 01/13/17 at 11:15; Status DC Potassium Chloride (KCl) 40 meq ONCE ONCE PO Last administered on 01/13/17 14: 23; Start 01/13/17 at 13:00; Stop 01/13/17 at 13:59; Status DC Potassium Chloride/Sodium Chloride 1,000 ml @ 100 mls/hr Q10H IV Last administered on 01/13/17 20:00; Start 01/13/17 at 15:00; Stop 01/15/17 at 13:26; Status DC Piperacillin Sod/ Tazobactam Sod 100 ml @ 200 mls/hr Q6H IV Last administered on 01/21/17 15:00; Start 01/13/17 at 21:00; Stop 01/21/17 at 19:56; Status DC Pharmacy Profile Note 0 ml @ 0 mls/hr UNSCH OTHER ; Start 01/13/17 at 19:45; Stop 01/21/17 at 19:56; Status DC Vancomycin HCl 2000 mg/Sodium Chloride 520 ml @ 250 mls/hr Q12H IV Last administered on 01/14/17 10:31; Start 01/13/17 at 21:00; Stop 01/14/17 at 12:26; Status DC Miscellaneous Information SPECIFIC LAB TO BE ... ONCE ONCE .XX Last administered on 01/16/17 08:45; Start 01/16/17 at 08:45; Stop 01/16/17 at 08:46; Status DC Sodium Chloride 250 ml @ 15 mls/hr ONCE ONCE IV ; Start 01/14/17 at 08:45; Stop 01/15/17 at 01:24; Status DC Ketamine HCl (Ketalar Inj) 500 mg STK-MED ONCE .ROUTE ; Start 01/14/17 at 09:18; Stop 01/14/17 at 09:19; Status DC Propofol (Diprivan 200 Mg/20 ml Inj) 100 mg STK-MED ONCE IV PUSH ; Start at 09:30; Stop 01/14/17 at 10:03; Status DC Fluconazole/ Sodium Chloride 200 ml @ 100 mls/hr Q24H IV Last administered on 01/20/17 10:57; Start 01/14/17 at 12:00; Stop 01/20/17 at 19:49; Status DC Nystatin (Mycostatin Liq) 5 ml QID SWISH-SWAL Last administered on 01/23/17 08:50; Start 01/14/17 at 13:00; Stop 01/23/17 at 12:27; Status DC Vancomycin HCl 2500 mg/Sodium Chloride 525 ml @ 250 mls/hr Q12H IV Last administered on 01/16/17 12:22; Start 01/14/17 at 21:00; Stop 01/16/17 at 13:02; Status DC Potassium Chloride 100 ml @ 25 mls/hr Q4H IV Last administered on 01/14/17 17: 54; Start 01/14/17 at 14:00; Stop 01/14/17 at 21:59; Status DC Promethazine HCl (Phenergan Inj) 12.5 mg STAT STAT IV-CENTRAL Last administered on 01/14/17 14:23; Start 01/14/17 at 14:11; Stop 01/14/17 at 14:15; Status DC Promethazine HCl (Phenergan Inj) 12.5 mg Q4H PRN IV-CENTRAL nausea Last administered on 01/20/17 12:00; Start 01/14/17 at 16:45 Multi-Ingredient Mouthwash/Gargle (Magic Mouthwash Adult Liq) 10 ml QID PRN SWISH-SWAL sore throat Last administered on 01/21/17 09:45; Start 01/15/17 at 06 :30 Benzocaine/Menthol (Chloraseptic Sanjay) 1 lozenge UNSCH PRN BUCCAL sore throat; Start 01/15/17 at 06:30 Sodium Chloride 250 ml @ 15 mls/hr ONCE ONCE IV Last administered on 16:16; Start 01/15/17 at 07:45; Stop 01/16/17 at 00:24; Status DC Sodium Chloride 250 ml @ 15 mls/hr ONCE ONCE IV ; Start 01/15/17 at 07:45; Stop 01/16/17 at 00:24; Status DC Potassium Phosphate 30 mmol/ Sodium Chloride 260 ml @ 43.333 mls/ hr ONCE ONCE IV Last administered on 01/15/17 11:01; Start 01/15/17 at 09:00; Stop at 14:59; Status DC Diphenhydramine HCl (Benadryl Inj) 25 mg ONCE ONCE IV PUSH Last administered on 01/15/17 08:38; Start 01/15/17 at 08:15; Stop 01/15/17 at 08:16; Status DC Iohexol (Omnipaque 350 Inj) 92 ml STK-MED ONCE IVCONTRAST ; Start 01/15/17 at 10: 17; Stop 01/15/17 at 10:18; Status DC Potassium Chloride/Dextrose/ Sod Cl 1,000 ml @ 84 mls/hr [id number] IV Last administered on 01/17/17 01:44; Start 01/15/17 at 13:30; Stop 01/17/17 at 08:38 ; Status DC Sodium Chloride 250 ml @ 15 mls/hr ONCE ONCE IV Last administered on 13:00; Start 01/16/17 at 13:00; Stop 01/17/17 at 05:39; Status DC Acetaminophen (Tylenol) 650 mg Q4H PRN PO SEE LABEL COMMENTS Last administered on 01/17/17 14:20; Start 01/16/17 at 13:00; Stop 01/17/17 at 14:20; Status DC Diphenhydramine HCl (Benadryl) 25 mg Q4H PRN PO SEE LABEL COMMENTS Last administered on 01/17/17 14:20; Start 01/16/17 at 13:00; Stop 01/17/17 at 14:20 ; Status DC Vancomycin HCl 2000 mg/Sodium Chloride 520 ml @ 250 mls/hr Q8H IV Last administered on 01/19/17 15:08; Start 01/16/17 at 20:00; Stop 01/19/17 at 21:47 ; Status DC Miscellaneous Information SPECIFIC LAB TO BE DRAWN:VANCO TROUGH DATE TO... ONCE ONCE .XX Last administered on 01/17/17 11:05; Start 01/17/17 at 11:45; Stop 01/17/17 at 11:46; Status DC Potassium Chloride 100 ml @ 50 mls/hr Q2H IV Last administered on 01/17/17 08 :26; Start 01/16/17 at 22:45; Stop 01/17/17 at 04:44; Status DC Potassium Chloride 100 ml @ As Directed STK-MED ONCE .ROUTE ; Start 01/17/17 at 08:25; Stop 01/17/17 at 08:26; Status DC Potassium Chloride/Dextrose/ Sod Cl 1,000 ml @ 84 mls/hr [id number] IV Last administered on 01/22/17 09:56; Start 01/17/17 at 13:30 Aminocaproic Acid (Amicar) 1,000 mg Q6HR PO Last administered on 01/22/17 06: 17; Start 01/17/17 at 12:00; Stop 01/22/17 at 09:33; Status DC Sodium Chloride 250 ml @ 15 mls/hr ONCE ONCE IV ; Start 01/17/17 at 13:00; Stop 01/18/17 at 05:39; Status DC Potassium Phosphate (K-Phos) 1,000 mg ONCE ONCE PO Last administered on 12:41; Start 01/17/17 at 13:00; Stop 01/17/17 at 13:01; Status DC Calcium Gluconate 1 gm/Sodium Chloride 110 ml @ 110 mls/hr NOW ONCE IV Last administered on 01/17/17 17:12; Start 01/17/17 at 15:45; Stop 01/17/17 at 16:44 ; Status DC Potassium Chloride 100 ml @ 50 mls/hr Q2H IV Last administered on 01/18/17 12 :22; Start 01/17/17 at 21:00; Stop 01/18/17 at 04:59; Status DC Diphenhydramine HCl (Benadryl) 25 mg Q4H PRN PO SEE LABEL COMMENTS Last administered on 01/18/17 04:53; Start 01/18/17 at 05:00; Stop 01/18/17 at 08:00 ; Status DC Potassium Chloride 100 ml @ As Directed STK-MED ONCE .ROUTE ; Start 01/18/17 at 09:38; Stop 01/18/17 at 09:39; Status DC Acetaminophen (Tylenol) 650 mg Q6H PRN PO WHILE BLOOD INFUSING Last administered on 01/19/17 11:31; Start 01/18/17 at 10:00 Diphenhydramine HCl (Benadryl) 25 mg Q4H PRN PO WHILE BLOOD INFUSING Last administered on 01/19/17 11:31; Start 01/18/17 at 10:00 Potassium Phosphate 30 mmol/ Sodium Chloride 260 ml @ 43.333 mls/ hr ONCE ONCE IV Last administered on 01/18/17 16:29; Start 01/18/17 at 14:00; Stop 03/26 at 19:59; Status DC Potassium Chloride 100 ml @ As Directed STK-MED ONCE .ROUTE ; Start 01/18/17 at 12:15; Stop 01/18/17 at 12:16; Status DC Miscellaneous Information SPECIFIC LAB TO BE JASKARAN... ONCE ONCE .XX Last administered on 01/19/17 19:45; Start 01/19/17 at 19:45; Stop 01/19/17 at 19:46 ; Status DC Potassium Chloride (KCl) 20 meq Q12HR PO Last administered on 01/24/17 09:45; Start 01/19/17 at 09:30 Acetaminophen (Tylenol) 650 mg Q4H PRN PO SEE LABEL COMMENTS; Start 01/20/17 at 06:00 Diphenhydramine HCl (Benadryl) 25 mg Q4H PRN PO SEE LABEL COMMENTS; Start 01/20 at 06:00 Sodium Chloride 250 ml @ 15 mls/hr ONCE ONCE IV ; Start 01/19/17 at 12:00; Stop 01/20/17 at 04:39; Status DC Oxymetazoline HCl (Afrin 0.05% Freddie Art) 2 spray ONCE STAT NASAL ; Start 01/19 at 11:49; Stop 01/19/17 at 12:00; Status DC Aminocaproic Acid 2000 mg/Sodium Chloride 230 ml @ 250 mls/hr ONCE STAT IV ; Start 01/19/17 at 11:49; Stop 01/19/17 at 12:13; Status DC Aminocaproic Acid 2000 mg/Sodium Chloride 250 ml @ 250 mls/hr ONCE STAT IV ; Start 01/19/17 at 12:13; Stop 01/19/17 at 12:23; Status DC Aminocaproic Acid 2000 mg/Sodium Chloride 250 ml @ 250 mls/hr ONCE STAT IV Last administered on 01/19/17 13:06; Start 01/19/17 at 12:23; Stop 01/19/17 at 13:22; Status DC Vancomycin HCl 1500 mg/Sodium Chloride 515 ml @ 257.5 mls/ hr Q8H IV Last administered on 01/20/17 13:29; Start 01/20/17 at 00:00; Stop 01/20/17 at 15:45 ; Status DC Miscellaneous Information SPECIFIC LAB TO BE DRAWN:VANCO TROUGH DATE TO BE DR... ONCE ONCE .XX ; Start 01/20/17 at 15:45; Stop 01/20/17 at 15:45; Status DC Vancomycin HCl 1500 mg/Sodium Chloride 515 ml @ 257.5 mls/ hr Q8H IV Last administered on 01/21/17 06:30; Start 01/20/17 at 21:00; Stop 01/21/17 at 19:56 ; Status DC Miscellaneous Information SPECIFIC LAB TO BE DRAWN:VANCOMYCIN TROUGH DATE TO... ONCE ONCE .XX Last administered on 01/21/17 04:45; Start 01/21/17 at 04:45; Stop 01/21/17 at 04:46; Status DC Fluconazole (Diflucan 40 Mg/ ml Liq) 200 mg DAILY PO ; Start 01/20/17 at 19:45; Stop 01/20/17 at 19:48; Status DC Fluconazole (Diflucan 40 Mg/ ml Liq) 200 mg DAILY PO Last administered on 09:47; Start 01/21/17 at 09:00 Potassium Chloride (KCl) 20 meq ONCE ONCE PO ; Start 01/21/17 at 10:00; Stop at 11:03; Status DC Miscellaneous Information SPECIFIC LAB TO BE .. ONCE ONCE .XX ; Start 01/22 at 12:45; Stop 01/22/17 at 12:46; Status DC Lidocaine HCl (Xylocaine 1% Inj) 20 ml STK-MED ONCE .ROUTE Last administered on 01/22/17 12:16; Start 01/22/17 at 12:16; Stop 01/22/17 at 12:17; Status DC Fentanyl Citrate (fentaNYL INJ) 100 mcg STK-MED ONCE .ROUTE Last administered on 01/22/17 12:24; Start 01/22/17 at 12:24; Stop 01/22/17 at 12:25; Status DC Fentanyl Citrate (fentaNYL INJ) 100 mcg STK-MED ONCE .ROUTE Last administered on 01/22/17 12:24; Start 01/22/17 at 12:24; Stop 01/22/17 at 12:25; Status DC Midazolam HCl (Versed Inj) 5 mg STK-MED ONCE .ROUTE Last administered on 12:24; Start 01/22/17 at 12:24; Stop 01/22/17 at 12:25; Status DC Oxycodone HCl (Roxicodone) 5 mg Q4H PRN PO pain1-8 Last administered on 03:23; Start 01/23/17 at 08:15 Pantoprazole Sodium (Protonix Inj) 40 mg Q12HR IV PUSH Last administered on 22:24; Start 01/23/17 at 11:00 Alteplase, Recombinant (Cathflo Activase Inj) 2 mg Q2H PRN INTRACATH clotted catheter Last administered on 01/24/17 09:46; Start 01/24/17 at 08:45 A/P Assessment and Plan A/P - 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 CSF cultures and BAL shows no growth. Zosyn and Vanco were discontinued. ultrasound of upper extremities negative. CMV negative, HIV and Hep B and C negative heme/onc managing with induction therapy, -- BMB showed 70% blasts in bone marrow MUGA scan shows normal EF and no wall motion abnormalities 12/30/2016 Port placement by IR completed 12/31/16 bone marrow pathology pending. Patient is status post multiple transfusions for PRBC and platelet per oncology --Abdominal pain - splenic infarcts likely contributing. s/p EGD with esophageal candidiasis, esophageal ulcer and gastritis. continue PPI and Carafate. GI following. HIDA shows no significant abnormalities. CTA Abd showing no signs of occlusive atherosclerosis, C.diff negative x 2. MRI negative for acute findings. Splenic hemangiomas noted. continue with pain control; oxycodone was added. --thrombocytopenia - 2/2 AML, transfuse as needed per oncology. 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 Doppler studies negative for DVT. PT/OT eval/tx. IS and acapella use. Discharge Planning when ok with Oncology. Dacia Watkins MD Jan 25, 2017 07:48
[2017-01-25 07:50] LABS: BANDS 4 % (0-6); BLASTS 3 % (0-0); METAMYELOCYTES 5 % (0-1); MYELOCYTES 2 % (0-0); NEUTROPHIL # MANUAL DIFF 2.6 TH/MM3 (1.8-7.7); PLATELET ESTIMATE SMEAR HIGH (NORMAL); POLYS (SEG NEUTROPHILS) 39 % (16-70); WBC DIFF SAMPLE 100
[2017-01-25 07:51] LABS: PLATELET MORPHOLOGY NORMAL (NORMAL); SCAN/DIFF FINAL DIFF MANUAL
[2017-01-25] MEDS: FLUCONAZOLE SUSP 40 MG/ML 35 ML BTL PO SCH (07:57)
[2017-01-25] MEDS: PANTOPRAZOLE SODIUM 40 MG VIAL IV PUSH SCH ×2 (07:57→20:31)
[2017-01-25] MEDS: MUPIROCIN 2% OINT 22 GM TUBE TOPICAL SCH ×3 (07:58→17:08)
[2017-01-25] MEDS: ALLOPURINOL 100 MG TAB PO SCH (07:58)
[2017-01-25] MEDS: Hickman Catheter Daily NS Lock Flush IV FLUSH SCH (07:59)
[2017-01-25] MEDS: SODIUM CHLORIDE 0.9% FLUSH 10 ML FLUSH IV FLUSH SCH ×2 (07:59→20:30)
[2017-01-25 08:00] VITALS: BP 117/77; PULSE 92; RESP 18; TEMP 96.6; O2SAT 96
[2017-01-25 08:37] VITALS: PULSE 85
--- NOTE | 2017-01-25 10:13 | HHI.GIFU ---
Subjective Remarks Resting in bed. Eating bagel with cream cheese. Tolerating diet. Odynophagia/ dysphagia improved. Still with abdominal pain, although he states this is slowly improving. (Adilene Vizcaino) Objective Vitals I&O Vital Signs Date Time Temp Pulse Resp B/P (MAP) Pulse Ox O2 Delivery O2 Flow Rate FiO2 01/25/17 08:00 96.6 92 18 117/77 (90) 96 01/25/17 04:15 98.0 90 19 124/58 (80) 97 01/25/17 00:10 97.4 94 19 92/46 (61) 95 01/24/17 22:25 89 01/24/17 20:10 96.3 89 18 102/49 (66) 98 01/24/17 16:00 97.4 95 18 112/59 (76) 97 01/24/17 16:00 96.2 96 16 109/51 (70) 97 01/24/17 12:00 96.7 96 16 109/51 (70) 98 I/O 01/24/17 01/24/17 01/24/17 01/25/17 01/25/17 01/25/17 07:00 15:00 23:00 07:00 15:00 23:00 Intake Total 2100 ml 240 ml Output Total 750 ml 6650 ml 2100 ml Balance -750 ml -4550 ml -1860 ml Intake Oral 2100 ml 240 ml Output Urine Total 750 ml 6650 ml 2100 ml # Voids 3 Laboratory Laboratory Tests Test 01/25/17 04:00 White Blood Count 5.1 Red Blood Count 2.85 Hemoglobin 8.5 Hematocrit 24.9 Mean Corpuscular Volume 87.4 Mean Corpuscular Hemoglobin 29.8 Mean Corpuscular Hemoglobin Concent 34.1 Red Cell Distribution Width 14.3 Platelet Count 436 Mean Platelet Volume 7.5 Neutrophils (%) (Auto) 59.4 Lymphocytes (%) (Auto) 26.7 Monocytes (%) (Auto) 13.5 Eosinophils (%) (Auto) 0.0 Basophils (%) (Auto) 0.4 Neutrophils # (Auto) 3.0 Lymphocytes # (Auto) 1.4 Monocytes # (Auto) 0.7 Eosinophils # (Auto) 0.0 Basophils # (Auto) 0.0 CBC Comment AUTO DIFF Differential Total Cells Counted 100 Neutrophils % (Manual) 39 Band Neutrophils % 4 Lymphocytes % 26 Monocytes % 21 Neutrophils # (Manual) 2.6 Metamyelocytes 5 Myelocytes 2 Differential Comment FINAL DIFF MANUAL Blastocytes 3 Platelet Estimate HIGH Platelet Morphology Comment NORMAL Blood Urea Nitrogen 7 Creatinine 0.75 Random Glucose 81 Calcium Level 8.4 Sodium Level 139 Potassium Level 3.9 Chloride Level 101 Carbon Dioxide Level 30.0 Anion Gap 8 Estimat Glomerular Filtration Rate 128 Date/Time Source Procedure Growth Status 01/14/17 01:35 Blood Line Aerobic Blood Culture - Final NO GROWTH IN 5 DAYS Complete 01/14/17 01:35 Blood Line Anaerobic Blood Culture - Final NO GROWTH IN 5 DAYS Complete 12/26/16 17:10 Cerebral Spinal Fluid Lumbar Puncture Acid Fast Stain - Final NO ACID FAST BACILLI SEEN Resulted 12/26/16 17:10 Cerebral Spinal Fluid Lumbar Puncture Mycobacterial Culture - Preliminary NO GROWTH IN 4 WEEKS Resulted 01/09/17 19:57 Stool Stool Stool Occult Blood (SUNDAR) - Final HEMOCCULT POSITIVE Complete 12/28/16 17:50 Bronchial Washings Left Lower Lobe Fungal Smear - Final NO FUNGAL ELEMENTS SEEN. Resulted 12/28/16 17:50 Bronchial Washings Left Lower Lobe Fungal Culture - Preliminary NO GROWTH IN 3 WEEKS Resulted 01/11/17 22:25 Urine Clean Catch Urine Culture - Final NO GROWTH IN 48 HOURS. Complete Imaging Last Impressions Bone Biopsy CT 01/22/17 0000 Signed Impressions: Service Date/Time: Sunday, January 22, 2017 13:16 - CONCLUSION: 1. Uncomplicated CT guided bone marrow aspirate. 2. Uncomplicated CT guided bone marrow biopsy. Garcia Tello MD Upper Extremity Ultrasound 01/19/17 0000 Signed Impressions: Service Date/Time: Thursday, January 19, 2017 08:07 - CONCLUSION: Negative for DVT . Richy Bonner MD FACR Neck CT 01/15/17 0806 Signed Impressions: Service Date/Time: Sunday, January 15, 2017 09:54 - CONCLUSION: Mild sinusitis within the maxillary sinuses, slight scarring right apex of the lung. Patricia Contreras MD Chest CT 01/15/17 0806 Signed Impressions: Service Date/Time: Sunday, January 15, 2017 09:58 - CONCLUSION: Left lung infiltrate has resolved and there is improvement in right lung infiltrates with residual infiltrate remaining. Patricia Contreras MD Abdomen X-Ray 01/13/17 1451 Signed Impressions: Service Date/Time: Friday, January 13, 2017 15:41 - CONCLUSION: Moderate gaseous distention of large and small bowel with appearance most suggestive of ileus Audie Gomez MD Abdomen MRI 01/12/17 0000 Signed Impressions: Service Date/Time: Thursday, January 12, 2017 09:47 - CONCLUSION: No evidence of acute abdominal process. Splenic hemangiomas Humza Decker MD Lower Extremity Ultrasound 01/10/17 0000 Signed Impressions: Service Date/Time: Tuesday, January 10, 2017 21:50 - CONCLUSION: Negative exam with no evidence of deep venous thrombosis. Jose Nicholson MD Hepatobiliary Scan Nuclear Medicine 01/09/17 0000 Signed Impressions: Service Date/Time: Monday, January 09, 2017 10:01 - CONCLUSION: 1. The patient refused imaging beyond 45 minutes. There is activity seen within small bowel and gallbladder with no evidence for cystic duct obstruction. Danie Kelly MD Abdomen/Pelvis CT 01/08/17 0000 Signed Impressions: Service Date/Time: Sunday, January 08, 2017 14:43 - CONCLUSION: 1. No evidence of mesenteric artery stenosis 2. Small amount of free fluid is present in the pelvis Humza Decker MD Abdomen Ultrasound 01/07/17 0000 Signed Impressions: Service Date/Time: December 01:11 - CONCLUSION: 1. No acute findings. Liver enlarged. Spleen mildly prominent at 14 cm. Leander Fiore MD Chest X-Ray 01/03/17 0600 Signed Impressions: Service Date/Time: Tuesday, January 03, 2017 04:42 - CONCLUSION: Normal examination. Right IJ [id number] catheter in excellent position. Lungs are clear. Enrique Ramos MD Port Line Insertion 12/31/16 0000 Signed Impressions: Service Date/Time: December 15:15 - CONCLUSION: Uncomplicated ultrasound and fluoroscopic guided implanted central venous port catheter placement as described in detail above. An 8 [employer] port was placed. Nilson Bonner MD Gated Heart Nuclear Medicine 12/30/16 0000 Signed Impressions: Service Date/Time: Friday, December 30, 2016 13:16 - CONCLUSION: Negative exam. Calculated ejection fraction of 56%% with adequate wall motion throughout. Bean Dugan MD Brain MRI 12/27/16 0000 Signed Impressions: Service Date/Time: Tuesday, December 27, 2016 21:58 - CONCLUSION: Unremarkable study. Patricia Contreras MD Lumbar Puncture Fluoroscopy 12/26/16 0000 Signed Impressions: Service Date/Time: Wednesday, December 26, 2016 17:03 - CONCLUSION: Uncomplicated fluoroscopically guided lumbar puncture with pressures as above. Nilson Bonner MD Head CT 12/25/16 194 Signed Impressions: Service Date/Time: Sunday, December 25, 2016 19:50 - CONCLUSION: Negative noncontrast head CT. Audie Maria MD Physical Exam HEENT: Normocephalic; atraumatic; no jaundice. CHEST: Resp even/unlabored, diminished breath sounds CARDIAC: RRR with no murmur gallop or rubs. ABDOMEN: Soft, obese, nondistended, mild mid/epigastric tenderness, bowel sounds are present x 4 EXTREMITIES: Generalized edema-improving. 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 (Adilene Vizcaino) Assessment and Plan Plan ASSESSMENT: - Upper GIB with hematemesis. S/P EGD (01/19/17)----> 1. Severe thrush in the mouth and proximal esophagus to the distal esophagus throughout, biopsy was not done because patient is pancytopenia 2. Esophageal ulcer in the distal esophagus biopsy was not done 3. Gastritis severe throughout the stomach 4. Retroflexed views revealed gastritis. Pt had an episode of n/v after persistent coughing with first dark emesis and then bright red blood on 01/19, none since that time. Protonix, Diflucan, Magic Mouthwash, Carafate. No further bleeding. HH 8.5/24.9. Tolerating diet. No active bleeding. - Esophageal ulcer, Brandon esophagitis. Protonix, Diflucan, Carafate. - Dysphagia secondary to brandon esophagitis. Improved. Tolerating diet. Protonix Gtt, Diflucan, Magic Mouthwash, Nystatin, Carafate Did not want PPN/TPN unless absolutely necessary. At this time, he is able to take po. - Anemia, acute blood loss. S/P mutiple transfusions. HH 8.5/24.9 - Severe pancytopenia, Requiring multiple transfusions. Requiring HLA matched products S/P Bone marrow biopsy (01/22), pathology pending. - Neutropenia. Improved. WBC 5.1, Neutrophils 3 - Abdominal pain. CT showing splenic infarct. CTA no mesenteric ischemia, small amount free fluid pelvis. HIDA (pt refused imaging beyond 45 min) but negative for cystic duct obstruction. MRI abd no acute processes , splenic hemangiomas. PPI, Carafate He has some epigastric pain, but states this is slowly improving. - Acute myelogenous leukemia. S/P Daunorubicin and Cytarabine per oncology. Now with severe pancytopenia. S/P Bone marrow bx (01/22), pathology pending. Oncology following. PLAN: - Soft diet with ensure with each meal - Protonix 40mg IV BID - Diflucan 200mg po daily - Carafate 1 gram ACHS - Magic Mouthwash QID prn - Monitor labs - Transfusions per hematology - Supportive care - Notify of any further bleeding. - Further recommendations to follow based on results of above - Pt seen and examined by Dr. Barragan and myself and this note is written on his behalf (Adilene Vizcaino) Physician Comments Patient seen and examined Agree with above Monitor labs Continue with current supportive care. The patient appears to be improving and is able to swallow without much odynophagia We will sign off (Isidro Barragan MD) Adilene Vizcaino Jan 25, 2017 10:13 Isidro Barragan MD Jan 25, 2017 21:02
--- NOTE | 2017-01-25 11:22 | PD.ONC.PN ---
Subjective Subjective Remarks Afebrile overnight. Patient resting in bed in nad. Still having occasional abdominal pain requiring pain medication. eating well now. No further bleeding Objective Data Date Time Temp Pulse Resp B/P (MAP) Pulse Ox O2 Delivery O2 Flow Rate FiO2 01/25/17 08:00 96.6 92 18 117/77 (90) 96 01/25/17 04:15 98.0 90 19 124/58 (80) 97 01/25/17 00:10 97.4 94 19 92/46 (61) 95 01/24/17 22:25 89 01/24/17 20:10 96.3 89 18 102/49 (66) 98 01/24/17 16:00 97.4 95 18 112/59 (76) 97 01/24/17 16:00 96.2 96 16 109/51 (70) 97 01/24/17 12:00 96.7 96 16 109/51 (70) 98 01/25/17 01/25/17 01/25/17 07:00 15:00 23:00 Intake Total 240 ml Output Total 2100 ml Balance -1860 ml Result Diagram: 01/25/17 0400 01/25/17 0400 Laboratory Results Laboratory Tests Test 01/25/17 04:00 White Blood Count 5.1 TH/MM3 Red Blood Count 2.85 MIL/MM3 Hemoglobin 8.5 GM/DL Hematocrit 24.9 % Mean Corpuscular Volume 87.4 FL Mean Corpuscular Hemoglobin 29.8 PG Mean Corpuscular Hemoglobin Concent 34.1 % Red Cell Distribution Width 14.3 % Platelet Count 436 TH/MM3 Mean Platelet Volume 7.5 FL Neutrophils (%) (Auto) 59.4 % Lymphocytes (%) (Auto) 26.7 % Monocytes (%) (Auto) 13.5 % Eosinophils (%) (Auto) 0.0 % Basophils (%) (Auto) 0.4 % Neutrophils # (Auto) 3.0 TH/MM3 Lymphocytes # (Auto) 1.4 TH/MM3 Monocytes # (Auto) 0.7 TH/MM3 Eosinophils # (Auto) 0.0 TH/MM3 Basophils # (Auto) 0.0 TH/MM3 CBC Comment AUTO DIFF Differential Total Cells Counted 100 Neutrophils % (Manual) 39 % Band Neutrophils % 4 % Lymphocytes % 26 % Monocytes % 21 % Neutrophils # (Manual) 2.6 TH/MM3 Metamyelocytes 5 % Myelocytes 2 % Differential Comment FINAL DIFF MANUAL Blastocytes 3 % Platelet Estimate HIGH Platelet Morphology Comment NORMAL Blood Urea Nitrogen 7 MG/DL Creatinine 0.75 MG/DL Random Glucose 81 MG/DL Calcium Level 8.4 MG/DL Sodium Level 139 MEQ/L Potassium Level 3.9 MEQ/L Chloride Level 101 MEQ/L Carbon Dioxide Level 30.0 MEQ/L Anion Gap 8 MEQ/L Estimat Glomerular Filtration Rate 128 ML/MIN Administered Medications Medications (Trade) Dose Ordered Sig/Emma Route PRN Reason Start Time Stop Time Status Last Admin Dose Admin Sodium Chloride (NS Flush) 2 ml UNSCH PRN IV FLUSH FLUSH AFTER USING IV ACCESS 12/25/16 23:00 12/30/16 04:59 Sodium Chloride (NS Flush) 2 ml BID IV FLUSH 12/26/16 09:00 01/25/17 07:59 Acetaminophen (Tylenol) 650 mg Q6H PRN PO FEVER>100.4 12/25/16 23:00 01/20/17 20:44 Benzonatate (Tessalon) 100 mg Q4H PRN PO COUGH 12/26/16 05:15 12/26/16 15:12 Mupirocin (Bactroban 2% Oint) 1 applic TID TOPICAL 12/27/16 14:15 01/22/17 09:18 Sodium Chloride (NS Flush) 5 ml DAILY IV FLUSH 12/30/16 09:00 01/25/17 07:59 Heparin Sodium (Porcine) (Heparin Central Flush) 500 units UNSCH PRN IV FLUSH SEE PROTOCOL TABLE 12/30/16 06:30 12/31/16 15:45 Allopurinol (Zyloprim) 200 mg DAILY PO 01/06/17 09:00 01/25/17 07:58 Sucralfate (Carafate Liq) 1 gm ACHS PO 01/09/17 16:00 01/25/17 05:11 Ondansetron HCl (Zofran Inj) 8 mg Q8H PRN IV PUSH NAUSEA 01/11/17 17:15 Future hold 01/23/17 21:31 Promethazine HCl (Phenergan Inj) 12.5 mg Q4H PRN IV-CENTRAL nausea 01/14/17 16:45 01/20/17 12:00 Multi-Ingredient Mouthwash/Gargle (Magic Mouthwash Adult Liq) 10 ml QID PRN SWISH-SWAL sore throat 01/15/17 06:30 01/21/17 09:45 Acetaminophen (Tylenol) 650 mg Q6H PRN PO WHILE BLOOD INFUSING 01/18/17 10:00 01/19/17 11:31 Diphenhydramine HCl (Benadryl) 25 mg Q4H PRN PO WHILE BLOOD INFUSING 01/18/17 10:00 01/19/17 11:31 Potassium Chloride (KCl) 20 meq Q12HR PO 01/19/17 09:30 01/24/17 09:45 Fluconazole (Diflucan 40 Mg/ ml Liq) 200 mg DAILY PO 01/21/17 09:00 01/25/17 07:57 Oxycodone HCl (Roxicodone) 5 mg Q4H PRN PO pain1-8 01/23/17 08:15 01/25/17 07:58 Pantoprazole Sodium (Protonix Inj) 40 mg Q12HR IV PUSH 01/23/17 11:00 01/25/17 07:57 Alteplase, Recombinant (Cathflo Activase Inj) 2 mg Q2H PRN INTRACATH clotted catheter 01/24/17 08:45 01/24/17 09:46 Objective Remarks GENERAL: Young man, sitting up in bed in [facility]. SKIN: Warm and dry. HEAD: Normocephalic. EYES: No injection or drainage. NECK: Supple, trachea midline. CARDIOVASCULAR: Regular rate and rhythm RESPIRATORY: Breath sounds equal bilaterally. No accessory muscle use. GASTROINTESTINAL: Abdomen soft, non-tender, nondistended. EXTREMITIES: No cyanosis. peripheral edema noted in all extremities. NEUROLOGICAL: aox3. normal speech. 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 3am. Transfuse 1 unit irr. platelets, 1 unit irr. PRBC's. 01/08: D9. abdominal pain persistent. 2 units pRBC 01/09: D10. 2 additional units pRBC ordered. 1 unit platelets ordered 01/10: D11. 2 units pRBC. 1 unit platelets. + stool hemoccult 01/12: D13: 2 units pRBC. 1 unit platelets. 01/13: D14: 1 unit platelets. BB working to obtain HLA matched platelets 01/14: D15. 2 units HLA matched platelets given. spoke with BB they will have two units HLA matched on hand at all times. EGD today. 01/15: D16: 1 unit platelets, 1 unit pRBC. swelling in neck and face, ?SVC syndrome. CT chest and CT neck ordered 01/16: D 17: 1 unit platelets, [address] chest and neck negative for SVC syndrome. Continue to monitor blood counts. 01/17 D18: Labs pending. Start Amicar 1gm Q6h for overnight coughing up trav blood. Will transfuse for platelets less than 10k and Hgb less than 7.0. 01/18 D19: WBC 1.0, still thrombocytopenic, no bleeding from IV site or gums. Continue plans for platelet transfusion support. Afebrile. 01/19 D20: Patient received therapeutic transfusions 01/20: D21: No transfusion today. No further hematemesis. 01/21: D22: Transfuse 1 unit PRBC's today. Platelets appear to be recovering. 01/22: D23. repeat BMB today. d/c TIN CONTAINER STRAIGHTENER. encourage patient to start mobilizing more. 01/23: D24. encourage oral intake and mobilization. was OOB for several hours 01/24: D25. pain improving. oral intake improving. 01/25: D26. 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 Patients with rearrangement of CBFB in AML may have a higher risk of ALTERATION HAND involvement at diagnosis or at relapse than patients with other types of AML. Inversion 16 or t(16;16), with or without additional chromosome abnormalities, has been associated with complete remission and improved long-term survival. - MUGA scan shows normal EF and no wall motion abnormalities 12/30/2016 - Port placement by IR completed 12/31/16 - Induction chemotherapy started 12/31-- 7+3 regimen with Daunorubicin 90mg/m2 and Cytaribine 100mg/m2-- Dosing capped at BSA of 2 - CMV negative, HIV and Hep B and C negative (2) Abdominal pain ICD Codes: R10.9 - Unspecified abdominal pain Plan: -- Epigastric area pain--EGD, 01/14 showed thrush and distal esophageal ulcer as well as severe gastritis. -- Amylase, lipase WNL -- CT abdomen/ pelvis shows splenic infarcts; --CTA abdomen shows no mesenteric emboli --Abdominal U/S: shows no acute findings. enlarged liver and spleen. --GI following --on Protonix, Carafate, Diflucan +stool hemoccult Assessment 1. await pathology 2. monitor CBC 3. d/c peripheral IV 4. d/c tele 5. wean dilaudid to q 8hours Attending Statement The exam, history, and the medical decision-making described in the above note were completed with the assistance of the mid-level provider. I reviewed and agree with the findings presented. I attest that I had a [id number] encounter with the patient on the same day, and personally performed and documented my assessment and findings in the medical record. Wean off pain meds. Flow cytometry shows minimal number of blast cells. Will depend on morphology to determine any residual disease Will discuss with pathology counts are recovering no longer transfusion dependent d.w rn o/n events reviewed Problem Qualifiers (1) Acute myelogenous leukemia: Qualified Codes: C92.00 - Acute myeloblastic leukemia, not having achieved remission Fartun Pagna Jan 25, 2017 11:22 Joey Santoyo MD Jan 25, 2017 23:42
[2017-01-25 12:00] VITALS: BP 115/58; PULSE 89; RESP 18; TEMP 97.1; O2SAT 96
[2017-01-25] MEDS ORDERED: POTASSIUM CHLORIDE 25 MEQ EFFERVESCENT TAB NG SCH (12:15)
[2017-01-25 16:00] VITALS: BP 102/50; PULSE 95; RESP 18; TEMP 96.5; O2SAT 98
[2017-01-25] MEDS: DOCUSATE SODIUM 100 MG CAP PO SCH (17:05)
[2017-01-25] MEDS: ONDANSETRON HCL 4 MG/2 ML VIAL IV PUSH PRN (20:31)
[2017-01-26] VITALS (11 sets, daily range): BP systolic 92–140; BP diastolic 52–64; PULSE 85–140; RESP 17–20; TEMP 96.7–98.3; O2SAT 95–100
[2017-01-26] MEDS: HYDROmorphone HCL PF 2 MG/ML VIAL IV PUSH PRN ×4 (02:35→21:06)
[2017-01-26 06:29] LABS: AUTOMATED NEUTROPHIL # 3.5 TH/MM3 (1.8-7.7); BASOPHIL # 0.1 TH/MM3 (0-0.2); BASOPHIL % 0.9 % (0.0-2.0); HEMATOCRIT 24.7 % (39.0-51.0); LYMPH % 26.5 % (9.0-44.0); LYMPHOCYTE # 1.6 TH/MM3 (1.0-4.8); MEAN CELL VOLUME 86.6 FL (80.0-100.0); MEAN CORPUSCULAR HEMOGLOBIN 30.5 PG (27.0-34.0); MEAN CORPUSCULAR HGB CONC 35.2 % (32.0-36.0); MONO % 15.3 % (0.0-8.0); NEUT % 57.3 % (16.0-70.0); PLATELET COUNT 485 TH/MM3 (150-450); RED BLOOD COUNT 2.85 MIL/MM3 (4.50-5.90); RED CELL DISTRIBUTION WIDTH 14.1 % (11.6-17.2); WHITE BLOOD COUNT 6.2 TH/MM3 (4.0-11.0)
[2017-01-26 06:35] LABS: HEMO FLAGS AUTO DIFF
[2017-01-26 06:49] LABS: POTASSIUM 3.8 MEQ/L (3.5-5.1)
--- NOTE | 2017-01-26 07:43 | HHI.PR ---
Subjective Remarks in no distress. abdominal pain is improving. no new complaints. Objective Vitals Vital Signs Date Time Temp Pulse Resp B/P (MAP) Pulse Ox O2 Delivery O2 Flow Rate FiO2 01/26/17 04:00 96.7 86 17 131/61 (84) 95 01/26/17 00:00 96.9 98 18 118/64 (82) 97 01/25/17 18:28 16 01/25/17 16:00 96.5 95 18 102/50 (67) 98 01/25/17 13:16 16 01/25/17 12:00 97.1 89 18 115/58 (77) 96 01/25/17 08:37 85 01/25/17 08:00 96.6 92 18 117/77 (90) 96 I/O 01/25/17 01/25/17 01/25/17 01/26/17 01/26/17 01/26/17 07:00 15:00 23:00 07:00 15:00 23:00 Intake Total 240 ml 840 ml Output Total 2100 ml 1100 ml 2220 ml Balance -1860 ml -260 ml -2220 ml Intake Oral 240 ml 840 ml Output Urine Total 2100 ml 1100 ml 2220 ml # Voids 3 Result Diagram: 01/26/17 0604 01/26/17 0604 Imaging Last Impressions Bone Biopsy CT 01/22/17 0000 Signed Impressions: Service Date/Time: Sunday, January 22, 2017 13:16 - CONCLUSION: 1. Uncomplicated CT guided bone marrow aspirate. 2. Uncomplicated CT guided bone marrow biopsy. Garcia Tello MD Upper Extremity Ultrasound 01/19/17 0000 Signed Impressions: Service Date/Time: Thursday, January 19, 2017 08:07 - CONCLUSION: Negative for DVT . Richy Bonner MD FACR Neck CT 01/15/17 0806 Signed Impressions: Service Date/Time: Sunday, January 15, 2017 09:54 - CONCLUSION: Mild sinusitis within the maxillary sinuses, slight scarring right apex of the lung. Patricia Contreras MD Chest CT 01/15/17 0806 Signed Impressions: Service Date/Time: Sunday, January 15, 2017 09:58 - CONCLUSION: Left lung infiltrate has resolved and there is improvement in right lung infiltrates with residual infiltrate remaining. Patricia Contreras MD Abdomen X-Ray 01/13/17 1451 Signed Impressions: Service Date/Time: Friday, January 13, 2017 15:41 - CONCLUSION: Moderate gaseous distention of large and small bowel with appearance most suggestive of ileus Audie Gomez MD Abdomen MRI 01/12/17 0000 Signed Impressions: Service Date/Time: Thursday, January 12, 2017 09:47 - CONCLUSION: No evidence of acute abdominal process. Splenic hemangiomas Humza Decker MD Lower Extremity Ultrasound 01/10/17 0000 Signed Impressions: Service Date/Time: Tuesday, January 10, 2017 21:50 - CONCLUSION: Negative exam with no evidence of deep venous thrombosis. Jose Nicholson MD Hepatobiliary Scan Nuclear Medicine 01/09/17 0000 Signed Impressions: Service Date/Time: Monday, January 09, 2017 10:01 - CONCLUSION: 1. The patient refused imaging beyond 45 minutes. There is activity seen within small bowel and gallbladder with no evidence for cystic duct obstruction. Danie Kelly MD Abdomen/Pelvis CT 01/08/17 0000 Signed Impressions: Service Date/Time: Sunday, January 08, 2017 14:43 - CONCLUSION: 1. No evidence of mesenteric artery stenosis 2. Small amount of free fluid is present in the pelvis Humza Deckre MD Abdomen Ultrasound 01/07/17 0000 Signed Impressions: Service Date/Time: December 01:11 - CONCLUSION: 1. No acute findings. Liver enlarged. Spleen mildly prominent at 14 cm. Leander Fiore MD Chest X-Ray 01/03/17 0600 Signed Impressions: Service Date/Time: Tuesday, January 03, 2017 04:42 - CONCLUSION: Normal examination. Right IJ [id number]-Bzzo catheter in excellent position. Lungs are clear. Enrique Ramos MD Port Line Insertion 12/31/16 0000 Signed Impressions: Service Date/Time: December 15:15 - CONCLUSION: Uncomplicated ultrasound and fluoroscopic guided implanted central venous port catheter placement as described in detail above. An 8 [place] [employer] port was placed. Nilson Bonner MD Gated Heart Nuclear Medicine 12/30/16 0000 Signed Impressions: Service Date/Time: Friday, December 30, 2016 13:16 - CONCLUSION: Negative exam. Calculated ejection fraction of 56%% with adequate wall motion throughout. Bean Dugan MD Brain MRI 12/27/16 0000 Signed Impressions: Service Date/Time: Tuesday, December 27, 2016 21:58 - CONCLUSION: Unremarkable study. Patricia Contreras MD Lumbar Puncture Fluoroscopy 12/26/16 0000 Signed Impressions: Service Date/Time: Monday, December 26, 2016 17:03 - CONCLUSION: Uncomplicated fluoroscopically guided lumbar puncture with pressures as above. Nilson Bonner MD Head CT 12/25/16 194 Signed Impressions: Service Date/Time: Sunday, December 25, 2016 19:50 - CONCLUSION: Negative noncontrast head CT. Audie Maria MD Objective Remarks GENERAL: This is a well-nourished, well-developed patient, in no apparent distress. CARDIOVASCULAR: Regular rate and regular rhythm without murmurs, gallops, or rubs. RESPIRATORY: Clear to auscultation. Breath sounds equal bilaterally. No wheezes , rales, or rhonchi. GASTROINTESTINAL: Abdomen soft, non-tender, nondistended. Normal, active bowel sounds MUSCULOSKELETAL: Extremities without clubbing, cyanosis, or edema. NEURO: Alert & Oriented x4 to person, place, time, situation. Moves all ext x4 Procedures 12/31 [id number]-[id number] placement bone marrow biopsy Medications and IVs Current Medications Acetaminophen (Tylenol) 650 mg ONCE ONCE PO Last administered on 12/25/16 20: 28; Start 12/25/16 at 19:45; Stop 12/25/16 at 19:46; Status DC Sodium Chloride 1,000 ml @ 1,000 mls/hr Q1H ONCE IV Last administered on 20:27; Start 12/25/16 at 19:41; Stop 12/25/16 at 20:40; Status DC Sodium Chloride 1,000 ml @ 1,000 mls/hr Q1H ONCE IV Last administered on 20:41; Start 12/25/16 at 19:41; Stop 12/25/16 at 20:40; Status DC Sodium Chloride 1,000 ml @ 1,000 mls/hr Q1H ONCE IV Last administered on 21:09; Start 12/25/16 at 19:41; Stop 12/25/16 at 20:40; Status DC Sodium Chloride 900 ml @ 1,000 mls/hr Q54M ONCE IV Last administered on 21:46; Start 12/25/16 at 19:41; Stop 12/25/16 at 20:34; Status DC Prochlorperazine Edisylate (Compazine Inj) 10 mg ONCE ONCE IV PUSH Last administered on 12/25/16 20:28; Start 12/25/16 at 19:45; Stop 12/25/16 at 19:46 ; Status DC Diphenhydramine HCl (Benadryl Inj) 25 mg ONCE ONCE IV PUSH Last administered on 12/25/16 20:27; Start 12/25/16 at 19:45; Stop 12/25/16 at 19:46; Status DC Cefepime HCl 2000 mg/Sodium Chloride 100 ml @ 200 mls/hr ONCE STAT IV Last administered on 12/25/16 21:46; Start 12/25/16 at 21:13; Stop 12/25/16 at 21:42 ; Status DC Pharmacy Profile Note 0 ml @ 0 mls/hr UNSCH OTHER ; Start 12/25/16 at 23:00; Stop 12/30/16 at 20:00; Status DC Cefepime HCl 1000 mg/Sodium Chloride 100 ml @ 200 mls/hr Q12H IV Last administered on 12/28/16 08:18; Start 12/26/16 at 09:00; Stop 12/28/16 at 19:05 ; Status DC Sodium Chloride 1,000 ml @ 100 mls/hr Q10H IV Last administered on 12/27/16 17:17; Start 12/25/16 at 23:00; Stop 12/28/16 at 09:00; Status DC Sodium Chloride (NS Flush) 2 ml UNSCH PRN IV FLUSH FLUSH AFTER USING IV ACCESS Last administered on 12/30/16 04:59; Start 12/25/16 at 23:00 Sodium Chloride (NS Flush) 2 ml BID IV FLUSH Last administered on 01/25/17 20: 30; Start 12/26/16 at 09:00 Ondansetron HCl (Zofran Inj) 4 mg Q6H PRN IVP NAUSEA OR VOMITING Last administered on 01/05/17 15:10; Start 12/25/16 at 23:00; Stop 01/06/17 at 15:54 ; Status DC Acetaminophen (Tylenol) 650 mg Q6H PRN PO PAIN1-2ORFEVER>100.4 Last administered on 01/20/17 20:44; Start 12/25/16 at 23:00 Acetaminophen/ Hydrocodone Bitart ([place] 5-325 Mg) 1 tab Q4H PRN PO PAIN SCALE 3 TO 5 Last administered on 12/27/16 12:05; Start 12/25/16 at 23:00; Stop 12/27/16 at 13:56; Status DC Morphine Sulfate (Morphine Inj) 2 mg Q3H PRN IV Pain 6-10 Last administered on 01/06/17 22:09; Start 12/25/16 at 23:00; Stop 01/06/17 at 23:13; Status DC Senna/Docusate Sodium (Rika-Colace) 1 tab BID PO Last administered on 01/08/17 08:12; Start 12/26/16 at 09:00; Stop 01/09/17 at 12:59; Status DC Magnesium Hydroxide (Milk Of Magnesia Liq) 30 ml Q12H PRN PO MILD - MODERATE CONSTIPATION; Start 12/25/16 at 23:00 Sennosides (Senokot) 17.2 mg Q12H PRN PO MODERATE - SEVERE CONSTIPATION; Start 12/25/16 at 23:00; Stop 01/25/17 at 14:44; Status DC Bisacodyl (Dulcolax Supp) 10 mg DAILY PRN RECTAL SEVERE CONSITIPATION; Start at 23:00; Stop 01/25/17 at 14:44; Status DC Lactulose (Lactulose Liq) 30 ml DAILY PRN PO SEVERE CONSITIPATION; Start at 23:00; Stop 01/25/17 at 14:44; Status DC Vancomycin HCl 2500 mg/Sodium Chloride 525 ml @ 250 mls/hr Q12H IV Last administered on 12/26/16 00:27; Start 12/26/16 at 01:00; Stop 12/26/16 at 04:00 ; Status DC Guaifenesin/ Dextromethorphan (Robitussin Dm 200-20 Mg/10 ml Liq) 10 ml Q4H PRN PO cough Last administered on 12/26/16 18:19; Start 12/26/16 at 01:45; Stop 12/26/16 at 19:43; Status DC Benzonatate (Tessalon) 100 mg Q4H PRN PO COUGH Last administered on 12/26/16 15:12; Start 12/26/16 at 05:15; Stop 01/25/17 at 14:44; Status DC Vancomycin HCl 2000 mg/Sodium Chloride 520 ml @ 260 mls/hr Q12H IV Last administered on 12/27/16 17:16; Start 12/26/16 at 13:00; Stop 12/27/16 at 18:13 ; Status DC Miscellaneous Information SPECIFIC LAB TO BE JASKARAN... ONCE ONCE .XX Last administered on 12/27/16 17:05; Start 12/27/16 at 12:45; Stop 12/27/16 at 12:46 ; Status DC Sodium Bicarbonate 50 ml @ As Directed STK-MED ONCE .ROUTE Last administered on 12/26/16 16:54; Start 12/26/16 at 16:54; Stop 12/26/16 at 16:55; Status DC Iohexol (Omnipaque 350 Inj) 71 ml STK-MED ONCE IV Last administered on 17:47; Start 12/26/16 at 17:47; Stop 12/26/16 at 17:48; Status DC Albuterol/ Ipratropium (Duoneb Neb) 1 ampule Q6HR WHILE AWAKE NEB NEB Last administered on 12/30/16 09:15; Start 12/26/16 at 20:00; Stop 12/30/16 at 20:00 ; Status DC Guaifenesin/ Codeine Phosphate (Robitussin Ac 200-20 Mg/10 ml Liq) 10 ml Q4H PRN PO codine; Start 12/26/16 at 19:45; Stop 12/29/16 at 11:01; Status DC Promethazine HCl/ Codeine (Phenergan-Codeine Liq) 5 ml Q4H PRN PO COUGH Last administered on 12/31/16 17:09; Start 12/26/16 at 20:00; Stop 01/12/17 at 11:12 ; Status DC Sodium Chloride 250 ml @ 15 mls/hr ONCE ONCE IV Last administered on 23:23; Start 12/26/16 at 23:15; Stop 12/27/16 at 15:54; Status DC Acetaminophen (Tylenol) 650 mg Q4H PRN PO SEE LABEL COMMENTS; Start 12/26/16 at 23:15; Stop 12/27/16 at 03:16; Status DC Diphenhydramine HCl (Benadryl) 25 mg Q4H PRN PO SEE LABEL COMMENTS; Start 12/26 at 23:15; Stop 12/27/16 at 03:16; Status DC Calcium Gluconate 1 gm/Dextrose 110 ml @ 110 mls/hr ONCE ONCE IV Last administered on 12/26/16 23:56; Start 12/26/16 at 23:30; Stop 12/27/16 at 00:29 ; Status DC Diphenhydramine HCl (Benadryl) 25 mg Q4H PRN PO SEE LABEL COMMENTS Last administered on 01/16/17 02:23; Start 12/27/16 at 04:15; Stop 01/16/17 at 13:01; Status DC Acetaminophen (Tylenol) 650 mg Q4H PRN PO SEE LABEL COMMENTS Last administered on 01/15/17 13:52; Start 12/27/16 at 04:15; Stop 01/16/17 at 13:01; Status DC Mupirocin (Bactroban 2% Oint) 1 applic TID TOPICAL Last administered on 09:18; Start 12/27/16 at 14:15 Dexamethasone (Decadron) 4 mg Q12HR PO ; Start 12/27/16 at 21:00; Stop 12/27/16 at 21:00; Status DC Dexamethasone (Decadron) 4 mg ONCE ONCE PO Last administered on 12/27/16 14: 30; Start 12/27/16 at 14:00; Stop 12/27/16 at 14:01; Status DC Oxycodone HCl (Roxicodone) 5 mg Q6H PRN PO PAIN 1-10 Last administered on 21:56; Start 12/27/16 at 14:00; Stop 01/06/17 at 18:54; Status DC Lisinopril (Prinivil) 10 mg DAILY PO ; Start 12/28/16 at 15:00; Stop 12/28/16 at 15:00; Status DC Clonidine (Catapres) 0.2 mg Q6H PRN PO SBP > 160; Start 12/27/16 at 14:15; Stop 12/27/16 at 14:15; Status DC Diatrizoate Meglum/ Diatrizoate Sod ( Gastrodebby Liq) 18 ml ONCE ONCE PO Last administered on 12/27/16 17:16; Start 12/27/16 at 16:45; Stop 12/27/16 at 16:46; Status DC Albuterol Sulfate (Albuterol Concentrated Neb) 2.5 mg WIND [employer]PERATIONS SUPERVISOR NEB ; Start 12/27 at 16:45; Stop 12/31/16 at 16:44; Status DC Lidocaine HCl (Lidocaine Pf 4% Neb) 3 ml [employer]PER[employer] SUPERVISOR NEB ; Start 12/27/16 at 16:45 ; Stop 12/31/16 at 16:44; Status DC Vancomycin HCl 2000 mg/Sodium Chloride 520 ml @ 260 mls/hr Q12H IV Last administered on 12/29/16 02:15; Start 12/28/16 at 05:00; Stop 12/29/16 at 03:00 ; Status DC Miscellaneous Information SPECIFIC LAB TO BE DRAWN:VANCOMY... ONCE ONCE .XX ; Start 12/29/16 at 04:45; Stop 12/29/16 at 04:46; Status DC Sodium Chloride 250 ml @ 15 mls/hr ONCE ONCE IV ; Start 12/27/16 at 18:30; Stop 12/27/16 at 18:38; Status DC Sodium Chloride 250 ml @ 15 mls/hr ONCE ONCE IV ; Start 12/27/16 at 18:45; Stop 12/28/16 at 11:24; Status DC Gadodiamide (Omniscan Pf Inj) 30 ml STK-MED ONCE IVCONTRAST Last administered on 12/27/16 22:10; Start 12/27/16 at 22:10; Stop 12/27/16 at 22:11; Status DC Iohexol (Omnipaque 350 Inj) 95 ml STK-MED ONCE IVCONTRAST Last administered on 12/27/16 23:00; Start 12/27/16 at 23:00; Stop 12/27/16 at 23:03; Status DC Lactated Ringer's 1,000 ml @ 30 mls/hr Q24H PRN IV SEE LABEL COMMENTS; Start at 06:15; Stop 12/31/16 at 06:14; Status DC Sodium Chloride 500 ml @ 30 mls/hr [id number] PRN IV SEE LABEL COMMENTS; Start at 06:15; Stop 12/31/16 at 06:14; Status DC Povidone Iodine (Betadine 5% Antisepsis Kit) 1 applic [employer] SUPERVISOR PRN EACH NARE SEE LABEL COMMENTS; Start 12/28/16 at 06:15; Stop 12/31/16 at 06:14; Status DC Chlorhexidine Gluconate (Chlorhexidine 2% Cloth) 3 pack [employer]PERATIONS SUPERVISOR PRN TOPICAL SEE LABEL COMMENTS; Start 12/28/16 at 06:15; Stop 12/31/16 at 06:14; Status DC Insulin Human Regular (NovoLIN R INJ) See Protocol Table ... W[employer]PERATIONS SUPERVISOR PRN SQ SEE PROTOCOL TABLE; Start 12/28/16 at 06:15; Stop 12/31/16 at 06:14; Status DC Dextrose 1,000 ml @ 84 mls/hr [id number] IV Last administered on 01/01/17 22:03 ; Start 12/28/16 at 09:00; Stop 01/02/17 at 12:34; Status DC Calcium Carbonate (Tums Chew) 500 mg Q6H PRN CHEW DYSPEPSIA OR HEARTBURN; Start 12/28/16 at 14:00; Stop 01/23/17 at 13:13; Status DC Pantoprazole Sodium (Protonix) 20 mg DAILY PO Last administered on 01/08/17 08: 13; Start 12/29/16 at 09:00; Stop 01/08/17 at 17:45; Status DC Famotidine (Pepcid Inj) 20 mg ONCE ONCE IV PUSH Last administered on 14:27; Start 12/28/16 at 14:20; Stop 12/28/16 at 14:21; Status DC Lidocaine HCl (Xylocaine 1% Inj) 20 ml STK-MED ONCE .ROUTE Last administered on 12/28/16 14:49; Start 12/28/16 at 14:49; Stop 12/28/16 at 14:50; Status DC Sodium Chloride (Sodium Chloride 0.9% Inj) 40 ml STK-MED ONCE .ROUTE ; Start at 15:54; Stop 12/28/16 at 15:55; Status DC Lidocaine HCl (Xylocaine 2% Inj) 50 ml STK-MED ONCE .ROUTE ; Start 12/28/16 at 15:55; Stop 12/28/16 at 15:56; Status DC Lidocaine HCl (Xylocaine 2% Viscous) 15 ml STK-MED ONCE .ROUTE ; Start 12/28/16 at 15:55; Stop 12/28/16 at 15:56; Status DC Lidocaine HCl (Xylocaine-Mpf 4% Inj) 5 ml STK-MED ONCE .ROUTE ; Start 12/28/16 at 15:55; Stop 12/28/16 at 15:56; Status DC Epinephrine HCl (Adrenalin (1:1000) Inj) 2 mg STK-MED ONCE .ROUTE ; Start at 15:55; Stop 12/28/16 at 15:56; Status DC Fentanyl Citrate (fentaNYL INJ) 250 mcg STK-MED ONCE .ROUTE Last administered on 12/28/16 16:38; Start 12/28/16 at 16:38; Stop 12/28/16 at 16:39; Status DC Midazolam HCl (Versed Inj) 4 mg STK-MED ONCE .ROUTE Last administered on 16:38; Start 12/28/16 at 16:38; Stop 12/28/16 at 16:39; Status DC Sugammadex Sodium (Bridion Inj) 400 mg STK-MED ONCE IV PUSH ; Start 12/28/16 at 17:30; Stop 12/28/16 at 17:31; Status DC Albuterol Sulfate (Albuterol Neb) 2.5 mg UNSCH X1 PRN NEB SHORTNESS OF BREATH; Start 12/28/16 at 18:15; Stop 12/29/16 at 18:14; Status DC Albuterol Sulfate (*ALBUTEROL NEB PERIprocedure ONLY) 2.5 mg STK-MED ONCE NEB Last administered on 12/28/16 18:20; Start 12/28/16 at 18:20; Stop 12/28/16 at 18:21; Status DC Fentanyl Citrate (fentaNYL INJ) 100 mcg STK-MED ONCE .ROUTE ; Start 12/28/16 at 18:27; Stop 12/28/16 at 18:28; Status DC Miscellaneous Information ALL NURSING DEPARTME... UNSCH PRN .XX SEE LABEL COMMENTS; Start 12/28/16 at 18:45; Stop 12/29/16 at 18:44; Status DC Lorazepam (Ativan Inj) 2 mg STK-MED ONCE .ROUTE ; Start 12/28/16 at 18:35; Stop 12/28/16 at 18:36; Status DC Cefepime HCl 2000 mg/Sodium Chloride 100 ml @ 200 mls/hr Q12H IV Last administered on 12/29/16 09:08; Start 12/28/16 at 21:00; Stop 12/29/16 at 22:34 ; Status DC Fluconazole/ Sodium Chloride 200 ml @ 100 mls/hr Q24H IV Last administered on 01/04/17 21:49; Start 12/28/16 at 22:00; Stop 01/05/17 at 17:06; Status DC Azithromycin 500 mg/Sodium Chloride 250 ml @ 250 mls/hr Q24H IV Last administered on 01/03/17 21:17; Start 12/28/16 at 20:00; Stop 01/04/17 at 14:48 ; Status DC Fentanyl Citrate (fentaNYL INJ) 100 mcg STK-MED ONCE .ROUTE ; Start 12/28/16 at 19:47; Stop 12/28/16 at 19:48; Status DC Vancomycin HCl 2000 mg/Sodium Chloride 520 ml @ 260 mls/hr Q12H IV Last administered on 12/30/16 16:14; Start 12/29/16 at 14:00; Stop 12/30/16 at 20:00 ; Status DC Miscellaneous Information SPECIFIC LAB TO BE DRAWN:VANCOMYCIN TROUGH DATE TO... ONCE ONCE .XX Last administered on 12/30/16 02:00; Start 12/30/16 at 01:45; Stop 12/30/16 at 01:46; Status DC Methylprednisolone Sodium Succinate (SoluMEDROL INJ) 40 mg ONCE ONCE IV PUSH Last administered on 12/29/16 22:08; Start 12/29/16 at 21:15; Stop 12/29/16 at 21:16; Status DC Methylprednisolone Sodium Succinate (SoluMEDROL INJ) 125 mg NOW ONCE IV ; Start 12/29/16 at 21:30; Stop 12/29/16 at 21:30; Status DC Allopurinol (Zyloprim) 200 mg BID PO Last administered on 01/05/17 21:47; Start 12/29/16 at 22:00; Stop 01/05/17 at 23:59; Status DC Cefepime HCl 2000 mg/Sodium Chloride 100 ml @ 200 mls/hr Q12H IV Last administered on 01/04/17 11:09; Start 12/29/16 at 23:00; Stop 01/04/17 at 14:48 ; Status DC Sodium Chloride (NS Flush) 5 ml DAILY IV FLUSH Last administered on 01/25/17 07:59; Start 12/30/16 at 09:00 Heparin Sodium (Porcine) (Heparin Central Flush) 500 units DAILY IV FLUSH ; Start 12/30/16 at 09:00 Sodium Chloride (NS Flush) 5 ml UNSCH PRN IV FLUSH SEE PROTOCOL TABLE; Start at 06:30 Heparin Sodium (Porcine) (Heparin Central Flush) 500 units UNSCH PRN IV FLUSH SEE PROTOCOL TABLE Last administered on 12/31/16 15:45; Start 12/30/16 at 06:30 Acetaminophen (Tylenol) 650 mg ONCE ONCE PO Last administered on 12/30/16 10: 38; Start 12/30/16 at 08:30; Stop 12/30/16 at 08:31; Status DC Diphenhydramine HCl (Benadryl) 25 mg ONCE ONCE PO Last administered on 10:37; Start 12/30/16 at 08:30; Stop 12/30/16 at 08:31; Status DC Methylprednisolone Sodium Succinate (SoluMEDROL INJ) 40 mg ONCE ONCE IV PUSH Last administered on 12/30/16 10:37; Start 12/30/16 at 10:00; Stop 12/30/16 at 10:04; Status DC Cefazolin Sodium/ Dextrose 50 ml @ 100 mls/hr W[employer] SUPERVISOR IV ; Start 12/30/16 at 10:30; Stop 01/03/17 at 10:29; Status DC Methylprednisolone Sodium Succinate (SoluMEDROL INJ) 40 mg ONCE IM ; Start 12/31 at 07:00; Status UNV Granisetron HCl 1 mg/Dexamethasone Sodium Phosphate 20 mg/Sodium Chloride 56 ml @ 336 mls/hr Q24H IV Last administered on 01/07/17 04:14; Start 12/31/16 at 17:30; Stop 01/06/17 at 17:39; Status DC Midazolam HCl (Versed Inj) 4 mg STK-MED ONCE .ROUTE Last administered on 14:40; Start 12/31/16 at 14:40; Stop 12/31/16 at 14:41; Status DC Fentanyl Citrate (fentaNYL INJ) 250 mcg STK-MED ONCE .ROUTE Last administered on 12/31/16 14:40; Start 12/31/16 at 14:40; Stop 12/31/16 at 14:41; Status DC Cytarabine 200 mg/ Sodium Chloride 500 ml @ 20.833 mls/ hr Q24H IV Last administered on 01/07/17 06:27; Start 12/31/16 at 18:30; Stop 01/07/17 at 18:29 ; Status DC Daunorubicin HCl 180 mg/Sodium Chloride 136 ml @ 272 mls/hr Q24H IV Last administered on 01/03/17 01:51; Start 12/31/16 at 18:00; Stop 01/02/17 at 18:29 ; Status DC Lidocaine/ Epinephrine (Xylocaine-Epi Mpf 2%-1:200,000 Inj) 20 ml STK-MED ONCE .ROUTE Last administered on 12/31/16 15:19; Start 12/31/16 at 15:08; Stop at 15:09; Status DC Heparin Sodium (Porcine) (Heparin Central Flush) 500 units UNSCH IV FLUSH ; Start 12/31/16 at 15:45 Sodium Chloride (NS Flush) 5 ml UNSCH PRN IVF SEE PROTOCOL; Start 12/31/16 at 15:45 Heparin Sodium (Porcine) (Heparin Central Flush) 250 units UNSCH PRN IV FLUSH SEE PROTOCOL; Start 12/31/16 at 15:45 Methylprednisolone Sodium Succinate (SoluMEDROL INJ) 40 mg ONCE ONCE IV Last administered on 12/31/16 21:09; Start 12/31/16 at 17:00; Stop 12/31/16 at 17:01 ; Status DC Sodium Chloride 1,000 ml @ 42 mls/hr [id number] IV Last administered on 17:34; Start 01/02/17 at 12:45; Stop 01/08/17 at 11:33; Status DC Promethazine HCl (Phenergan) 25 mg Q4H PRN PO nausea or vomitting Last administered on 01/14/17 03:49; Start 01/04/17 at 10:15; Stop 01/14/17 at 16:35; Status DC Levofloxacin (Levaquin) 750 mg DAILY@1100 PO Last administered on 01/05/17 10: 54; Start 01/04/17 at 16:00; Stop 01/06/17 at 12:33; Status DC Calcium Chloride 1 gm/Dextrose 110 ml @ 110 mls/hr ONCE ONCE IV Last administered on 01/04/17 23:43; Start 01/04/17 at 23:00; Stop 01/04/17 at 23:59 ; Status DC Dicyclomine HCl (Bentyl) 20 mg TID PO Last administered on 01/10/17 09:52; Start 01/05/17 at 10:00; Stop 01/10/17 at 10:54; Status DC Sodium Chloride 500 ml @ 250 mls/hr Q2H ONCE IV Last administered on 14:07; Start 01/05/17 at 13:45; Stop 01/05/17 at 15:44; Status DC Ondansetron HCl (Zofran Inj) 4 mg Q8HR IV PUSH Last administered on 01/08/17 05 :22; Start 01/06/17 at 06:00; Stop 01/08/17 at 06:00; Status DC Allopurinol (Zyloprim) 200 mg DAILY PO Last administered on 01/25/17 07:58; Start 01/06/17 at 09:00 Calcium Chloride 1 gm/Sodium Chloride 110 ml @ 110 mls/hr ONCE ONCE IV Last administered on 01/06/17 09:35; Start 01/06/17 at 08:30; Stop 01/06/17 at 09:29 ; Status DC Hyoscyamine Sulfate (Levsin) 0.25 mg Q4H PRN PO CRAMPS Last administered on 10:06; Start 01/06/17 at 09:30; Stop 01/23/17 at 13:13; Status DC Morphine Sulfate (Morphine Inj) 2 mg NOW ONCE IV Last administered on 13:15; Start 01/06/17 at 13:15; Stop 01/06/17 at 13:16; Status DC Calcium Chloride 1 gm/Sodium Chloride 110 ml @ 110 mls/hr ONCE ONCE IV Last administered on 01/06/17 19:01; Start 01/06/17 at 15:00; Stop 01/06/17 at 15:59 ; Status DC Iohexol (Omnipaque 350 Inj) 81 ml STK-MED ONCE IVCONTRAST Last administered on 01/06/17 15:27; Start 01/06/17 at 15:27; Stop 01/06/17 at 15:28; Status DC Oxycodone HCl (Roxicodone) 5 mg ONCE ONCE PO ; Start 01/06/17 at 19:00; Stop at 19:01; Status Cancel Oxycodone HCl (Roxicodone) 5 mg Q6H PRN PO pain; Start 01/06/17 at 18:15; Stop 01/06/17 at 18:42; Status DC Hydromorphone HCl (Dilaudid Pf Inj) 0.5 mg ONCE ONCE IV Last administered on 19:00; Start 01/06/17 at 19:00; Stop 01/06/17 at 19:01; Status DC Oxycodone HCl (Roxicodone) 5 mg Q4H PRN PO PAIN 1-10 Last administered on 22:51; Start 01/06/17 at 19:00; Stop 01/09/17 at 12:32; Status DC Hydromorphone HCl (Dilaudid Pf Inj) 1 mg Q4H PRN IV PAIN SCALE 1 TO 10 Last administered on 01/08/17 02:12; Start 01/06/17 at 23:15; Stop 01/08/17 at 02:41; Status DC Sodium Chloride 1,000 ml @ 999 mls/hr BOLUS ONCE IV Last administered on 01/07 10:15; Start 01/07/17 at 10:00; Stop 01/07/17 at 11:00; Status DC Sodium Chloride 1,000 ml @ 75 mls/hr [id number] IV Last administered on 01/13/17 14:23; Start 01/07/17 at 14:00; Stop 01/13/17 at 14:51; Status DC Hydromorphone HCl (Dilaudid Pf Inj) 1 mg Q3H PRN IV PAIN SCALE 1 TO 10 Last administered on 01/08/17 08:12; Start 01/08/17 at 02:45; Stop 01/08/17 at 11:58; Status DC Hydromorphone HCl (Dilaudid Pf Inj) 1.5 mg ONCE ONCE IV PUSH Last administered on 01/08/17 11:44; Start 01/08/17 at 11:15; Stop 01/08/17 at 11:18; Status DC Sodium Chloride 250 ml @ 15 mls/hr ONCE ONCE IV Last administered on 16:30; Start 01/08/17 at 11:30; Stop 01/09/17 at 04:09; Status DC Acetaminophen (Tylenol) 650 mg Q4H PRN PO SEE LABEL COMMENTS; Start 01/08/17 at 11:30; Status Cancel Diphenhydramine HCl (Benadryl) 25 mg Q4H PRN PO SEE LABEL COMMENTS; Start at 11:30; Status Cancel Hydromorphone HCl (Dilaudid Pf Inj) 1.5 mg Q3H PRN IV PAIN SCALE 1 TO 10 Last administered on 01/09/17 11:17; Start 01/08/17 at 14:45; Stop 01/09/17 at 12:32; Status DC Iohexol (Omnipaque 350 Inj) 100 ml STK-MED ONCE IVCONTRAST Last administered on 01/08/17 14:41; Start 01/08/17 at 14:41; Stop 01/08/17 at 14:43; Status DC Pantoprazole Sodium (Protonix) 20 mg BID PO Last administered on 01/09/17 08:51 ; Start 01/08/17 at 21:00; Stop 01/09/17 at 13:51; Status DC Sodium Chloride 250 ml @ 15 mls/hr ONCE ONCE IV ; Start 01/09/17 at 08:15; Stop 01/10/17 at 00:54; Status DC Oxycodone HCl (Roxicodone) 10 mg ONCE ONCE PO Last administered on 01/09/17 09 :24; Start 01/09/17 at 09:00; Stop 01/09/17 at 09:17; Status DC Hydromorphone HCl (Dilaudid Pf Inj) 2 mg Q3H PRN IV PAIN SCALE 1 TO 10 Last administered on 01/11/17 13:34; Start 01/09/17 at 14:45; Stop 01/11/17 at 13:42; Status DC Hydromorphone HCl (Dilaudid Pf Inj) 2 mg ONCE ONCE IV PUSH Last administered on 01/09/17 13:16; Start 01/09/17 at 13:00; Stop 01/09/17 at 13:07; Status DC Pantoprazole Sodium (Protonix Inj) 40 mg Q12HR IV PUSH Last administered on 01/11 08:05; Start 01/09/17 at 14:00; Stop 01/11/17 at 15:02; Status DC Sucralfate (Carafate Liq) 1 gm ACHS PO Last administered on 01/25/17 20:31; Start 01/09/17 at 16:00 Piperacillin Sod/ Tazobactam Sod 100 ml @ 200 mls/hr Q8H IV Last administered on 01/13/17 15:51; Start 01/09/17 at 15:00; Stop 01/13/17 at 19:46; Status DC Sodium Chloride 250 ml @ 15 mls/hr ONCE ONCE IV Last administered on 10:20; Start 01/10/17 at 08:00; Stop 01/11/17 at 00:39; Status DC Oxycodone HCl (Roxicodone) 10 mg ONCE ONCE PO Last administered on 01/10/17 11 :12; Start 01/10/17 at 11:00; Stop 01/10/17 at 11:01; Status DC Lactobacillus Acidophilus (Lactinex) 1 tab TID PO Last administered on 12:57; Start 01/10/17 at 18:00; Stop 01/13/17 at 14:38; Status DC Oxycodone HCl (Roxicodone) 10 mg ONCE ONCE PO Last administered on 01/11/17 09 :32; Start 01/11/17 at 08:15; Stop 01/11/17 at 08:26; Status DC Hydromorphone HCl (Dilaudid Pf Inj) 2 mg Q2H PRN IV PAIN SCALE 1 TO 10 Last administered on 01/11/17 15:56; Start 01/11/17 at 13:45; Stop 01/12/17 at 08:06; Status DC Pantoprazole Sodium 80 mg/ Sodium Chloride 100 ml @ 10 mls/hr CONTINUOUS IV Last administered on 01/22/17 09:56; Start 01/11/17 at 16:00; Stop 01/23/17 at 09:58; Status DC Naloxone HCl (Narcan Inj) 0.4 mg UNSCH PRN IV RESPIRATORY RATE LESS THAN 10; Start 01/11/17 at 15:15; Stop 01/22/17 at 09:43; Status DC Hydromorphone HCl (Dilaudid EMPLOYEE'S REPRESENTATIVE Inj) 6 mg UNSCH IV Last administered on 09:11; Start 01/11/17 at 15:15; Stop 01/22/17 at 09:43; Status DC EMPLOYEE'S REPRESENTATIVE Dosage Infused (Pha) 1 Q8HR OTHER Last administered on 01/22/17 06:00; Start 01/11/17 at 15:45; Stop 01/22/17 at 09:43; Status DC Ondansetron HCl (Zofran Inj) 8 mg Q8H PRN IV PUSH NAUSEA Last administered on 20:31; Start 01/11/17 at 17:15; Status Future hold Hydromorphone HCl (Dilaudid Pf Inj) 1 mg ONCE ONCE IV PUSH Last administered on 01/12/17 02:37; Start 01/12/17 at 02:30; Stop 01/12/17 at 02:31; Status DC Propofol (Diprivan 200 Mg/20 ml Inj) 400 mg STK-MED ONCE IV ; Start 12/28/16 at 12:00; Stop 01/12/17 at 08:23; Status DC Sodium Chloride 250 ml @ 15 mls/hr ONCE ONCE IV Last administered on 10:00; Start 01/12/17 at 10:00; Stop 01/13/17 at 02:39; Status DC Hydromorphone HCl (Dilaudid Pf Inj) 2 mg STAT ONCE IV PUSH Last administered on 01/12/17 11:09; Start 01/12/17 at 11:00; Stop 01/12/17 at 11:01; Status DC Gadodiamide (Omniscan Pf Inj) 30 ml STK-MED ONCE IV PUSH Last administered on 10:51; Start 01/12/17 at 10:51; Stop 01/12/17 at 10:52; Status DC Hydromorphone HCl (Dilaudid Pf Inj) 2 mg Q4H PRN IV PUSH SEVERE BREAKTHROUGH PAIN Last administered on 01/25/17 05:11; Start 01/12/17 at 15:30; Stop at 09:49; Status DC Sodium Chloride 250 ml @ 15 mls/hr ONCE ONCE IV Last administered on 08:30; Start 01/13/17 at 08:30; Stop 01/14/17 at 01:09; Status DC Metronidazole 100 ml @ 100 mls/hr Q6H IV ; Start 01/13/17 at 11:15; Stop at 11:15; Status DC Ciprofloxacin/ Dextrose 200 ml @ 200 mls/hr Q12H IV ; Start 01/13/17 at 11:15; Stop 01/13/17 at 11:15; Status DC Potassium Chloride (KCl) 40 meq ONCE ONCE PO Last administered on 01/13/17 14: 23; Start 01/13/17 at 13:00; Stop 01/13/17 at 13:59; Status DC Potassium Chloride/Sodium Chloride 1,000 ml @ 100 mls/hr Q10H IV Last administered on 01/13/17 20:00; Start 01/13/17 at 15:00; Stop 01/15/17 at 13:26; Status DC Piperacillin Sod/ Tazobactam Sod 100 ml @ 200 mls/hr Q6H IV Last administered on 01/21/17 15:00; Start 01/13/17 at 21:00; Stop 01/21/17 at 19:56; Status DC Pharmacy Profile Note 0 ml @ 0 mls/hr UNSCH OTHER ; Start 01/13/17 at 19:45; Stop 01/21/17 at 19:56; Status DC Vancomycin HCl 2000 mg/Sodium Chloride 520 ml @ 250 mls/hr Q12H IV Last administered on 01/14/17 10:31; Start 01/13/17 at 21:00; Stop 01/14/17 at 12:26; Status DC Miscellaneous Information SPECIFIC LAB TO BE JASKARAN... ONCE ONCE .XX Last administered on 01/16/17 08:45; Start 01/16/17 at 08:45; Stop 01/16/17 at 08:46; Status DC Sodium Chloride 250 ml @ 15 mls/hr ONCE ONCE IV ; Start 01/14/17 at 08:45; Stop 01/15/17 at 01:24; Status DC Ketamine HCl (Ketalar Inj) 500 mg STK-MED ONCE .ROUTE ; Start 01/14/17 at 09:18; Stop 01/14/17 at 09:19; Status DC Propofol (Diprivan 200 Mg/20 ml Inj) 100 mg STK-MED ONCE IV PUSH ; Start at 09:30; Stop 01/14/17 at 10:03; Status DC Fluconazole/ Sodium Chloride 200 ml @ 100 mls/hr Q24H IV Last administered on 01/20/17 10:57; Start 01/14/17 at 12:00; Stop 01/20/17 at 19:49; Status DC Nystatin (Mycostatin Liq) 5 ml QID SWISH-SWAL Last administered on 01/23/17 08:50; Start 01/14/17 at 13:00; Stop 01/23/17 at 12:27; Status DC Vancomycin HCl 2500 mg/Sodium Chloride 525 ml @ 250 mls/hr Q12H IV Last administered on 01/16/17 12:22; Start 01/14/17 at 21:00; Stop 01/16/17 at 13:02; Status DC Potassium Chloride 100 ml @ 25 mls/hr Q4H IV Last administered on 01/14/17 17: 54; Start 01/14/17 at 14:00; Stop 01/14/17 at 21:59; Status DC Promethazine HCl (Phenergan Inj) 12.5 mg STAT STAT IV-CENTRAL Last administered on 01/14/17 14:23; Start 01/14/17 at 14:11; Stop 01/14/17 at 14:15; Status DC Promethazine HCl (Phenergan Inj) 12.5 mg Q4H PRN IV-CENTRAL nausea Last administered on 01/20/17 12:00; Start 01/14/17 at 16:45; Stop 01/25/17 at 14:44 ; Status DC Multi-Ingredient Mouthwash/Gargle (Magic Mouthwash Adult Liq) 10 ml QID PRN SWISH-SWAL sore throat Last administered on 01/21/17 09:45; Start 01/15/17 at 06 :30; Stop 01/25/17 at 14:44; Status DC Benzocaine/Menthol (Chloraseptic Sanjay) 1 lozenge UNSCH PRN BUCCAL sore throat; Start 01/15/17 at 06:30; Stop 01/25/17 at 14:44; Status DC Sodium Chloride 250 ml @ 15 mls/hr ONCE ONCE IV Last administered on 16:16; Start 01/15/17 at 07:45; Stop 01/16/17 at 00:24; Status DC Sodium Chloride 250 ml @ 15 mls/hr ONCE ONCE IV ; Start 01/15/17 at 07:45; Stop 01/16/17 at 00:24; Status DC Potassium Phosphate 30 mmol/ Sodium Chloride 260 ml @ 43.333 mls/ hr ONCE ONCE IV Last administered on 01/15/17 11:01; Start 01/15/17 at 09:00; Stop at 14:59; Status DC Diphenhydramine HCl (Benadryl Inj) 25 mg ONCE ONCE IV PUSH Last administered on 01/15/17 08:38; Start 01/15/17 at 08:15; Stop 01/15/17 at 08:16; Status DC Iohexol (Omnipaque 350 Inj) 92 ml STK-MED ONCE IVCONTRAST ; Start 01/15/17 at 10: 17; Stop 01/15/17 at 10:18; Status DC Potassium Chloride/Dextrose/ Sod Cl 1,000 ml @ 84 mls/hr [id number] IV Last administered on 01/17/17 01:44; Start 01/15/17 at 13:30; Stop 01/17/17 at 08:38 ; Status DC Sodium Chloride 250 ml @ 15 mls/hr ONCE ONCE IV Last administered on 13:00; Start 01/16/17 at 13:00; Stop 01/17/17 at 05:39; Status DC Acetaminophen (Tylenol) 650 mg Q4H PRN PO SEE LABEL COMMENTS Last administered on 01/17/17 14:20; Start 01/16/17 at 13:00; Stop 01/17/17 at 14:20; Status DC Diphenhydramine HCl (Benadryl) 25 mg Q4H PRN PO SEE LABEL COMMENTS Last administered on 01/17/17 14:20; Start 01/16/17 at 13:00; Stop 01/17/17 at 14:20 ; Status DC Vancomycin HCl 2000 mg/Sodium Chloride 520 ml @ 250 mls/hr Q8H IV Last administered on 01/19/17 15:08; Start 01/16/17 at 20:00; Stop 01/19/17 at 21:47 ; Status DC Miscellaneous Information SPECIFIC LAB TO BE DRAWN:VANCO TROUGH DATE TO... ONCE ONCE .XX Last administered on 01/17/17 11:05; Start 01/17/17 at 11:45; Stop 01/17/17 at 11:46; Status DC Potassium Chloride 100 ml @ 50 mls/hr Q2H IV Last administered on 01/17/17 08 :26; Start 01/16/17 at 22:45; Stop 01/17/17 at 04:44; Status DC Potassium Chloride 100 ml @ As Directed STK-MED ONCE .ROUTE ; Start 01/17/17 at 08:25; Stop 01/17/17 at 08:26; Status DC Potassium Chloride/Dextrose/ Sod Cl 1,000 ml @ 84 mls/hr [id number] IV Last administered on 01/22/17 09:56; Start 01/17/17 at 13:30; Stop 01/25/17 at 09:49 ; Status DC Aminocaproic Acid (Amicar) 1,000 mg Q6HR PO Last administered on 01/22/17 06: 17; Start 01/17/17 at 12:00; Stop 01/22/17 at 09:33; Status DC Sodium Chloride 250 ml @ 15 mls/hr ONCE ONCE IV ; Start 01/17/17 at 13:00; Stop 01/18/17 at 05:39; Status DC Potassium Phosphate (K-Phos) 1,000 mg ONCE ONCE PO Last administered on 12:41; Start 01/17/17 at 13:00; Stop 01/17/17 at 13:01; Status DC Calcium Gluconate 1 gm/Sodium Chloride 110 ml @ 110 mls/hr NOW ONCE IV Last administered on 01/17/17 17:12; Start 01/17/17 at 15:45; Stop 01/17/17 at 16:44 ; Status DC Potassium Chloride 100 ml @ 50 mls/hr Q2H IV Last administered on 01/18/17 12 :22; Start 01/17/17 at 21:00; Stop 01/18/17 at 04:59; Status DC Diphenhydramine HCl (Benadryl) 25 mg Q4H PRN PO SEE LABEL COMMENTS Last administered on 01/18/17 04:53; Start 01/18/17 at 05:00; Stop 01/18/17 at 08:00 ; Status DC Potassium Chloride 100 ml @ As Directed STK-MED ONCE .ROUTE ; Start 01/18/17 at 09:38; Stop 01/18/17 at 09:39; Status DC Acetaminophen (Tylenol) 650 mg Q6H PRN PO WHILE BLOOD INFUSING Last administered on 01/19/17 11:31; Start 01/18/17 at 10:00; Stop 01/25/17 at 14:44 ; Status DC Diphenhydramine HCl (Benadryl) 25 mg Q4H PRN PO WHILE BLOOD INFUSING Last administered on 01/19/17 11:31; Start 01/18/17 at 10:00; Stop 01/25/17 at 14:44 ; Status DC Potassium Phosphate 30 mmol/ Sodium Chloride 260 ml @ 43.333 mls/ hr ONCE ONCE IV Last administered on 01/18/17 16:29; Start 01/18/17 at 14:00; Stop 03/26 at 19:59; Status DC Potassium Chloride 100 ml @ As Directed STK-MED ONCE .ROUTE ; Start 01/18/17 at 12:15; Stop 01/18/17 at 12:16; Status DC Miscellaneous Information SPECIFIC LAB TO BE JASKARAN... ONCE ONCE .XX Last administered on 01/19/17 19:45; Start 01/19/17 at 19:45; Stop 01/19/17 at 19:46 ; Status DC Potassium Chloride (KCl) 20 meq Q12HR PO Last administered on 01/24/17 09:45; Start 01/19/17 at 09:30; Stop 01/25/17 at 12:03; Status DC Acetaminophen (Tylenol) 650 mg Q4H PRN PO SEE LABEL COMMENTS; Start 01/20/17 at 06:00; Stop 01/25/17 at 14:44; Status DC Diphenhydramine HCl (Benadryl) 25 mg Q4H PRN PO SEE LABEL COMMENTS; Start 01/20 at 06:00; Stop 01/25/17 at 14:44; Status DC Sodium Chloride 250 ml @ 15 mls/hr ONCE ONCE IV ; Start 01/19/17 at 12:00; Stop 01/20/17 at 04:39; Status DC Oxymetazoline HCl (Afrin 0.05% Freddie [place]) 2 spray ONCE STAT NASAL ; Start 01/19 at 11:49; Stop 01/19/17 at 12:00; Status DC Aminocaproic Acid 2000 mg/Sodium Chloride 230 ml @ 250 mls/hr ONCE STAT IV ; Start 01/19/17 at 11:49; Stop 01/19/17 at 12:13; Status DC Aminocaproic Acid 2000 mg/Sodium Chloride 250 ml @ 250 mls/hr ONCE STAT IV ; Start 01/19/17 at 12:13; Stop 01/19/17 at 12:23; Status DC Aminocaproic Acid 2000 mg/Sodium Chloride 250 ml @ 250 mls/hr ONCE STAT IV Last administered on 01/19/17 13:06; Start 01/19/17 at 12:23; Stop 01/19/17 at 13:22; Status DC Vancomycin HCl 1500 mg/Sodium Chloride 515 ml @ 257.5 mls/ hr Q8H IV Last administered on 01/20/17 13:29; Start 01/20/17 at 00:00; Stop 01/20/17 at 15:45 ; Status DC Miscellaneous Information SPECIFIC LAB TO BE DRAWN:VANCO TROUGH DATE TO BE DRDexter.. ONCE ONCE .XX ; Start 01/20/17 at 15:45; Stop 01/20/17 at 15:45; Status DC Vancomycin HCl 1500 mg/Sodium Chloride 515 ml @ 257.5 mls/ hr Q8H IV Last administered on 01/21/17 06:30; Start 01/20/17 at 21:00; Stop 01/21/17 at 19:56 ; Status DC Miscellaneous Information SPECIFIC LAB TO BE DRAWN:VANCOMYCIN TROUGH DATE TO... ONCE ONCE .XX Last administered on 01/21/17 04:45; Start 01/21/17 at 04:45; Stop 01/21/17 at 04:46; Status DC Fluconazole (Diflucan 40 Mg/ ml Liq) 200 mg DAILY PO ; Start 01/20/17 at 19:45; Stop 01/20/17 at 19:48; Status DC Fluconazole (Diflucan 40 Mg/ ml Liq) 200 mg DAILY PO Last administered on 07:57; Start 01/21/17 at 09:00 Potassium Chloride (KCl) 20 meq ONCE ONCE PO ; Start 01/21/17 at 10:00; Stop at 11:03; Status DC Miscellaneous Information SPECIFIC LAB TO BE JASKARAN... ONCE ONCE .XX ; Start 01/22 at 12:45; Stop 01/22/17 at 12:46; Status DC Lidocaine HCl (Xylocaine 1% Inj) 20 ml STK-MED ONCE .ROUTE Last administered on 01/22/17 12:16; Start 01/22/17 at 12:16; Stop 01/22/17 at 12:17; Status DC Fentanyl Citrate (fentaNYL INJ) 100 mcg STK-MED ONCE .ROUTE Last administered on 01/22/17 12:24; Start 01/22/17 at 12:24; Stop 01/22/17 at 12:25; Status DC Fentanyl Citrate (fentaNYL INJ) 100 mcg STK-MED ONCE .ROUTE Last administered on 01/22/17 12:24; Start 01/22/17 at 12:24; Stop 01/22/17 at 12:25; Status DC Midazolam HCl (Versed Inj) 5 mg STK-MED ONCE .ROUTE Last administered on 12:24; Start 01/22/17 at 12:24; Stop 01/22/17 at 12:25; Status DC Oxycodone HCl (Roxicodone) 5 mg Q4H PRN PO PAIN3-9 Last administered on 22:48; Start 01/23/17 at 08:15 Pantoprazole Sodium (Protonix Inj) 40 mg Q12HR IV PUSH Last administered on 20:31; Start 01/23/17 at 11:00 Alteplase, Recombinant (Cathflo Activase Inj) 2 mg Q2H PRN INTRACATH clotted catheter Last administered on 01/24/17 09:46; Start 01/24/17 at 08:45 Hydromorphone HCl (Dilaudid Pf Inj) 2 mg Q8H PRN IV PUSH SEVERE BREAKTHROUGH PAIN Last administered on 01/26/17 02:35; Start 01/25/17 at 10:00 Potassium Bicarb/ Potassium Chloride (K-Lyte Cl Eff) 25 meq DAILY NG Last administered on 01/25/17 13:16; Start 01/25/17 at 12:15; Stop 01/25/17 at 14:44 ; Status DC Docusate Sodium (Colace) 100 mg TID PO Last administered on 01/25/17 17:05; Start 01/25/17 at 18:00 A/P Assessment and Plan A/P - 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 CSF cultures and BAL shows no growth. ultrasound of upper extremities negative. CMV negative, HIV and Hep B and C negative heme/onc managing with induction therapy, -- BMB showed 70% blasts in bone marrow MUGA scan shows normal EF and no wall motion abnormalities 12/30/2016 Port placement by IR completed 12/31/16 bone marrow pathology pending. off antibiotics. 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 s/p EGD with esophageal candidiasis, esophageal ulcer and gastritis. continue diflucan, PPI and Carafate. GI follow-up appreciated and signed off. HIDA shows no significant abnormalities. CTA Abd showing no signs of occlusive atherosclerosis, C.diff negative x 2. MRI negative for acute findings. Splenic hemangiomas noted. continue with pain control; oxycodone was added. --thrombocytopenia - 2/2 AML-resolved. --Prolonged immobilization. Doppler studies negative for DVT. PT/OT eval/tx. IS and acapella use. Discharge Planning when ok with Oncology. Dacia Watkins MD Jan 26, 2017 07:43
[2017-01-26 08:15] LABS: BANDS 4 % (0-6); BLASTS 2 % (0-0); METAMYELOCYTES 2 % (0-1); NEUTROPHIL # MANUAL DIFF 3.8 TH/MM3 (1.8-7.7); PLATELET ESTIMATE SMEAR HIGH (NORMAL); PLATELET MORPHOLOGY NORMAL (NORMAL); POLYS (SEG NEUTROPHILS) 55 % (16-70); SCAN/DIFF FINAL DIFF MANUAL; WBC DIFF SAMPLE 100
[2017-01-26 08:16] LABS: OVALOCYTES 1+ (NORMAL)
[2017-01-26 08:17] LABS: POLYCHROMASIA 2.1 % (0.0-1.9)
[2017-01-26] MEDS: DOCUSATE SODIUM 100 MG CAP PO SCH ×3 (08:37→18:39)
[2017-01-26] MEDS: PANTOPRAZOLE SODIUM 40 MG VIAL IV PUSH SCH ×2 (08:38→21:05)
[2017-01-26] MEDS: Hickman Catheter Daily NS Lock Flush IV FLUSH SCH (08:38)
[2017-01-26] MEDS: ALLOPURINOL 100 MG TAB PO SCH (08:38)
[2017-01-26] MEDS: FLUCONAZOLE SUSP 40 MG/ML 35 ML BTL PO SCH (08:38)
[2017-01-26] MEDS: MUPIROCIN 2% OINT 22 GM TUBE TOPICAL SCH ×3 (08:39→18:42)
[2017-01-26] MEDS: SODIUM CHLORIDE 0.9% FLUSH 10 ML FLUSH IV FLUSH SCH ×2 (08:39→21:07)
[2017-01-26] MEDS: SUCRALFATE 1 GM/10 ML CUP PO SCH ×4 (08:48→21:06)
[2017-01-26] MEDS: ONDANSETRON HCL 4 MG/2 ML VIAL IV PUSH PRN (12:32)
--- NOTE | 2017-01-26 12:50 | PD.ONC.PN ---
Subjective Subjective Remarks Afebrile overnight. Patient developed sinus tachycardia earlier today while walking with physical therapy. His HR was in 150s with exertion and then settled into the 110s to 120s once returned to resting. Troponin was obtained which was normal. EKG showed sinus tachycardia. Patient reports he has never had heart problems previously. Objective Data Date Time Temp Pulse Resp B/P (MAP) Pulse Ox O2 Delivery O2 Flow Rate FiO2 01/26/17 12:42 18 01/26/17 11:00 100 2.00 01/26/17 08:00 98.0 85 18 116/56 (76) 95 01/26/17 04:00 96.7 86 17 131/61 (84) 95 01/26/17 00:00 96.9 98 18 118/64 (82) 97 01/25/17 18:28 16 01/25/17 16:00 96.5 95 18 102/50 (67) 98 01/26/17 01/26/17 01/26/17 07:00 15:00 23:00 Output Total 2220 ml 1700 ml Balance -2220 ml -1700 ml Result Diagram: 01/26/17 0604 01/26/17 0604 Laboratory Results Laboratory Tests Test 01/26/17 06:04 01/26/17 11:04 White Blood Count 6.2 TH/MM3 Red Blood Count 2.85 MIL/MM3 Hemoglobin 8.7 GM/DL Hematocrit 24.7 % Mean Corpuscular Volume 86.6 FL Mean Corpuscular Hemoglobin 30.5 PG Mean Corpuscular Hemoglobin Concent 35.2 % Red Cell Distribution Width 14.1 % Platelet Count 485 TH/MM3 Mean Platelet Volume 7.3 FL Neutrophils (%) (Auto) 57.3 % Lymphocytes (%) (Auto) 26.5 % Monocytes (%) (Auto) 15.3 % Eosinophils (%) (Auto) 0.0 % Basophils (%) (Auto) 0.9 % Neutrophils # (Auto) 3.5 TH/MM3 Lymphocytes # (Auto) 1.6 TH/MM3 Monocytes # (Auto) 1.0 TH/MM3 Eosinophils # (Auto) 0.0 TH/MM3 Basophils # (Auto) 0.1 TH/MM3 CBC Comment AUTO DIFF Differential Total Cells Counted 100 Neutrophils % (Manual) 55 % Band Neutrophils % 4 % Lymphocytes % 24 % Monocytes % 13 % Neutrophils # (Manual) 3.8 TH/MM3 Metamyelocytes 2 % Differential Comment FINAL DIFF MANUAL Blastocytes 2 % Platelet Estimate HIGH Platelet Morphology Comment NORMAL Polychromasia 2.1 % Ovalocytes 1+ Fibrinogen 436 mg/dL Blood Urea Nitrogen 9 MG/DL Creatinine 0.94 MG/DL Random Glucose 93 MG/DL Calcium Level 8.6 MG/DL Sodium Level 136 MEQ/L Potassium Level 3.8 MEQ/L Chloride Level 100 MEQ/L Carbon Dioxide Level 32.0 MEQ/L Anion Gap 4 MEQ/L Estimat Glomerular Filtration Rate 99 ML/MIN Troponin I LESS THAN 0.02 NG/ML Administered Medications Medications (Trade) Dose Ordered Sig/Emma Route PRN Reason Start Time Stop Time Status Last Admin Dose Admin Sodium Chloride (NS Flush) 2 ml UNSCH PRN IV FLUSH FLUSH AFTER USING IV ACCESS 12/25/16 23:00 12/30/16 04:59 Sodium Chloride (NS Flush) 2 ml BID IV FLUSH 12/26/16 09:00 01/26/17 08:39 Acetaminophen (Tylenol) 650 mg Q6H PRN PO PAIN1-2ORFEVER>100.4 12/25/16 23:00 01/20/17 20:44 Mupirocin (Bactroban 2% Oint) 1 applic TID TOPICAL 12/27/16 14:15 01/22/17 09:18 Sodium Chloride (NS Flush) 5 ml DAILY IV FLUSH 12/30/16 09:00 01/26/17 08:38 Heparin Sodium (Porcine) (Heparin Central Flush) 500 units DAILY IV FLUSH 12/30/16 09:00 01/26/17 08:38 Heparin Sodium (Porcine) (Heparin Central Flush) 500 units UNSCH PRN IV FLUSH SEE PROTOCOL TABLE 12/30/16 06:30 12/31/16 15:45 Allopurinol (Zyloprim) 200 mg DAILY PO 01/06/17 09:00 01/26/17 08:38 Sucralfate (Carafate Liq) 1 gm ACHS PO 01/09/17 16:00 01/26/17 12:39 Ondansetron HCl (Zofran Inj) 8 mg Q8H PRN IV PUSH NAUSEA 01/11/17 17:15 Future hold 01/26/17 12:32 Fluconazole (Diflucan 40 Mg/ ml Liq) 200 mg DAILY PO 01/21/17 09:00 01/26/17 08:38 Oxycodone HCl (Roxicodone) 5 mg Q4H PRN PO PAIN3-9 01/23/17 08:15 01/26/17 12:39 Pantoprazole Sodium (Protonix Inj) 40 mg Q12HR IV PUSH 01/23/17 11:00 01/26/17 08:38 Alteplase, Recombinant (Cathflo Activase Inj) 2 mg Q2H PRN INTRACATH clotted catheter 01/24/17 08:45 01/24/17 09:46 Hydromorphone HCl (Dilaudid Pf Inj) 2 mg Q8H PRN IV PUSH SEVERE BREAKTHROUGH PAIN 01/25/17 10:00 01/26/17 10:48 Docusate Sodium (Colace) 100 mg TID PO 01/25/17 18:00 01/26/17 12:39 Objective Remarks GENERAL: Young man, sitting up in recliner next to bed. anxious but otherwise in nad. SKIN: Warm and dry. HEAD: Normocephalic. EYES: No injection or drainage. NECK: Supple, trachea midline. CARDIOVASCULAR: +S1/S2, mildly tachycardic, regular rhythm. RESPIRATORY: Breath sounds equal bilaterally. No accessory muscle use. GASTROINTESTINAL: Abdomen soft, non-tender, nondistended. EXTREMITIES: No cyanosis. NEUROLOGICAL: awake and alert. normal speech. no obvious focal deficit. 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 3am. Transfuse 1 unit irr. platelets, 1 unit irr. PRBC's. 01/08: D9. abdominal pain persistent. 2 units pRBC 01/09: D10. 2 additional units pRBC ordered. 1 unit platelets ordered 01/10: D11. 2 units pRBC. 1 unit platelets. + stool hemoccult 01/12: D13: 2 units pRBC. 1 unit platelets. 01/13: D14: 1 unit platelets. BB working to obtain HLA matched platelets 01/14: D15. 2 units HLA matched platelets given. spoke with BB they will have two units HLA matched on hand at all times. EGD today. 01/15: D16: 1 unit platelets, 1 unit pRBC. swelling in neck and face, ?SVC syndrome. CT chest and CT neck ordered 01/16: D 17: 1 unit platelets, [address] chest and neck negative for SVC syndrome. Continue to monitor blood counts. 01/17 D18: Labs pending. Start Amicar 1gm Q6h for overnight coughing up trav blood. Will transfuse for platelets less than 10k and Hgb less than 7.0. 01/18 D19: WBC 1.0, still thrombocytopenic, no bleeding from IV site or gums. Continue plans for platelet transfusion support. Afebrile. 01/19 D20: Patient received therapeutic transfusions 01/20: D21: No transfusion today. No further hematemesis. 01/21: D22: Transfuse 1 unit PRBC's today. Platelets appear to be recovering. 01/22: D23. repeat BMB today. d/c MALTED MILK MIXER. encourage patient to start mobilizing more. 01/23: D24. encourage oral intake and mobilization. was OOB for several hours 01/24: D25. pain improving. oral intake improving. 01/25: D26. wean pain medication 01/26: D27. 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 Patients with rearrangement of CBFB in AML may have a higher risk of WRESTLING COACH involvement at diagnosis or at relapse than patients with other types of AML. Inversion 16 or t(16;16), with or without additional chromosome abnormalities, has been associated with complete remission and improved long-term survival. - MUGA scan shows normal EF and no wall motion abnormalities 12/30/2016 - Port placement by IR completed 12/31/16 - Induction chemotherapy started 12/31-- 7+3 regimen with Daunorubicin 90mg/m2 and Cytaribine 100mg/m2-- Dosing capped at BSA of 2 - CMV negative, HIV and Hep B and C negative (2) Abdominal pain ICD Codes: R10.9 - Unspecified abdominal pain Plan: -- Epigastric area pain--EGD, 01/14 showed thrush and distal esophageal ulcer as well as severe gastritis. -- Amylase, lipase WNL -- CT abdomen/ pelvis shows splenic infarcts; --CTA abdomen shows no mesenteric emboli --Abdominal U/S: shows no acute findings. enlarged liver and spleen. --GI following --on Protonix, Carafate, Diflucan +stool hemoccult (3) Sinus tachycardia ICD Codes: R00.0 - Tachycardia, unspecified Assessment 1. await pathology 2. resume telemetry 3. monitor blood counts. Attending Statement The exam, history, and the medical decision-making described in the above note were completed with the assistance of the mid-level provider. I reviewed and agree with the findings presented. I attest that I had a [id number] encounter with the patient on the same day, and personally performed and documented my assessment and findings in the medical record. Had a run of Sinus Tachycardia --EKG reviewed CTA was ordered and did not reveal a pulmonary embolism Will get a MUGA scan in am to assess heart function Troponin negative currently asymptomatic and eating steak no blood products today Final path pending d/w rn o/n events reviewed Problem Qualifiers (1) Acute myelogenous leukemia: Qualified Codes: C92.00 - Acute myeloblastic leukemia, not having achieved remission Fartun Pagan Jan 26, 2017 12:49 Joey Santoyo MD Jan 26, 2017 23:56
--- NOTE | 2017-01-26 13:55 | EKG ---
Date Performed: 01/26/2017 Time Performed: 11:05:28 PTAGE: 26 years EKG: SINUS TACHYCARDIA WITH SHORT [place] INTERVAL ABNORMAL RHYTHM ECG Compared to prior tracing no s ignificant change PREVIOUS TRACING : 01/01/2017 11.40 DOCTOR: Jaden Daley Interpretating Date/Time 01/26/2017 13:54:10
[2017-01-26] MEDS ORDERED: IOHEXOL 350 MG/ML 10 ML VIAL (for RAD DIAG) IVCONTRAST ONE (14:08)
--- NOTE | 2017-01-26 14:28 | RADRPT ---
EXAM DATE/TIME: 01/26/2017 13:53 [place] COMPARISON: CT THORAX W CONTRAST, January 15, 2017, 9:58. CT NEEDLE BIOPSY BONE MARROW, January 22, 2017, 13 :16. INDICATIONS : Chest pain with exertion. IV CONTRAST: 100 cc Omnipaque 350 (iohexol) IV RADIATION DOSE: 26.14 CTDIvol (mGy) MEDICAL HISTORY : Acute myeloblastic leukemia. SURGICAL HISTORY : None. ENCOUNTER: Initial ACUITY: 1 day PAIN SCALE: 4/10 LOCATION: chest TECHNIQUE: Volumetric scanning of the chest was performed using a pulmonary embolism protocol MIP images were re constructed. Using automated exposure control and adjustment of the mA and/or kV according to patien t size, radiation dose was kept as low as reasonably achievable to obtain optimal diagnostic quality images. DICOM format image data is available electronically for review and comparison. Follow-up recommendations for detected pulmonary nodules are based at a minimum on nodule size and pa tient risk factors according to Fleischner Society Guidelines. FINDINGS: PULMONARY ARTERIES: No filling defects are seen in the pulmonary arteries through the segmental level. LUNGS: There is no consolidation or pneumothorax . No concerning pulmonary nodule is visualized. PLEURAE: There is no pleural thickening or pleural effusion. MEDIASTINUM: There is good visualization of the great vessels of the middle mediastinum. There are some small node s in the right paratracheal region. There is a mildly enlarged node in the subcarinal anaya chain as well measuring approximately 1.7 CM. The nodes are nonspecific in appearance by CT. No pericardial ef fusion is seen. The heart is normal in size. MUSCULOSKELETAL: Within normal limits for patient age. MISCELLANEOUS: The visualized upper abdominal organs demonstrate no acute abnormality. CONCLUSION: 1. No pulmonary embolus identified. 2. There are some small, nonspecific nodes in the right paratracheal region. There is a small node in the subcarinal anaya chain as well. Nilson Bonner MD on January 26, 2017 at 14:21 Board Certified Radiologist. This report was verified electronically.
[2017-01-26] MEDS: ACETAMINOPHEN 325 MG TAB PO PRN (14:55)
[2017-01-27] VITALS (7 sets, daily range): BP systolic 104–128; BP diastolic 51–62; PULSE 89–105; RESP 14–18; TEMP 96.8–98.7; O2SAT 95–98
[2017-01-27] MEDS: HYDROmorphone HCL PF 2 MG/ML VIAL IV PUSH PRN ×2 (01:29→06:08)
[2017-01-27 05:39] LABS: AUTOMATED NEUTROPHIL # 3.6 TH/MM3 (1.8-7.7); BASOPHIL # 0.2 TH/MM3 (0-0.2); BASOPHIL % 2.4 % (0.0-2.0); HEMATOCRIT 24.3 % (39.0-51.0); LYMPH % 23.6 % (9.0-44.0); LYMPHOCYTE # 1.5 TH/MM3 (1.0-4.8); MEAN CELL VOLUME 86.3 FL (80.0-100.0); MEAN CORPUSCULAR HEMOGLOBIN 29.6 PG (27.0-34.0); MEAN CORPUSCULAR HGB CONC 34.3 % (32.0-36.0); MONO % 16.3 % (0.0-8.0); NEUT % 57.7 % (16.0-70.0); PLATELET COUNT 566 TH/MM3 (150-450); RED BLOOD COUNT 2.81 MIL/MM3 (4.50-5.90); RED CELL DISTRIBUTION WIDTH 14.3 % (11.6-17.2); WHITE BLOOD COUNT 6.3 TH/MM3 (4.0-11.0)
[2017-01-27 05:41] LABS: HEMO FLAGS AUTO DIFF
[2017-01-27 05:51] LABS: POTASSIUM 3.8 MEQ/L (3.5-5.1)
--- NOTE | 2017-01-27 07:50 | HHI.PR ---
Subjective Remarks looks and feels more comfortable today. abdominal pain is mild with no nausea or vomiting. no chest pain or sob. no fever. Objective Vitals Vital Signs Date Time Temp Pulse Resp B/P (MAP) Pulse Ox O2 Delivery O2 Flow Rate FiO2 01/27/17 04:00 98.1 99 18 115/58 (77) 95 01/27/17 04:00 92 01/27/17 00:52 92 01/27/17 00:00 97.6 99 17 128/59 (82) 97 01/26/17 20:00 114 01/26/17 20:00 96.7 103 20 140/63 (88) 98 01/26/17 18:39 16 01/26/17 17:04 86 01/26/17 16:26 20 01/26/17 16:01 95 21 01/26/17 16:00 97.2 92 18 92/54 (67) 96 01/26/17 13:50 114 01/26/17 12:42 18 01/26/17 12:00 98.3 107 20 111/52 (71) 100 01/26/17 11:00 100 2.00 01/26/17 10:53 140 01/26/17 08:00 98.0 85 18 116/56 (76) 95 I/O 01/26/17 01/26/17 01/26/17 01/27/17 01/27/17 01/27/17 07:00 15:00 23:00 07:00 15:00 23:00 Intake Total 480 ml 480 ml Output Total 2220 ml 1900 ml 400 ml Balance -2220 ml -1900 ml 480 ml 80 ml Intake Oral 480 ml 480 ml Output Urine Total 2220 ml 1900 ml 400 ml Result Diagram: 01/27/17 0443 01/27/17 [address] Angiography 01/26/17 0000 Signed Impressions: Service Date/Time: Thursday, January 26, 2017 13:53 - CONCLUSION: 1. No pulmonary embolus identified. 2. There are some small, nonspecific nodes in the right paratracheal region. There is a small node in the subcarinal anaya chain as well. Nilson Bonner MD Bone Biopsy CT 01/22/17 0000 Signed Impressions: Service Date/Time: Sunday, January 22, 2017 13:16 - CONCLUSION: 1. Uncomplicated CT guided bone marrow aspirate. 2. Uncomplicated CT guided bone marrow biopsy. Garcia Tello MD Upper Extremity Ultrasound 01/19/17 0000 Signed Impressions: Service Date/Time: Thursday, January 19, 2017 08:07 - CONCLUSION: Negative for DVT . Richy Bonner MD FACR Neck CT 01/15/17 0806 Signed Impressions: Service Date/Time: Sunday, January 15, 2017 09:54 - CONCLUSION: Mild sinusitis within the maxillary sinuses, slight scarring right apex of the lung. Patricia Contreras MD Chest CT 01/15/17 0806 Signed Impressions: Service Date/Time: Sunday, January 15, 2017 09:58 - CONCLUSION: Left lung infiltrate has resolved and there is improvement in right lung infiltrates with residual infiltrate remaining. Patricia Contreras MD Abdomen X-Ray 01/13/17 1451 Signed Impressions: Service Date/Time: Friday, January 13, 2017 15:41 - CONCLUSION: Moderate gaseous distention of large and small bowel with appearance most suggestive of ileus Audie Gomez MD Abdomen MRI 01/12/17 0000 Signed Impressions: Service Date/Time: Thursday, January 12, 2017 09:47 - CONCLUSION: No evidence of acute abdominal process. Splenic hemangiomas Humza Decker MD Lower Extremity Ultrasound 01/10/17 0000 Signed Impressions: Service Date/Time: Tuesday, January 10, 2017 21:50 - CONCLUSION: Negative exam with no evidence of deep venous thrombosis. Jose Nicholson MD Hepatobiliary Scan Nuclear Medicine 01/09/17 0000 Signed Impressions: Service Date/Time: Monday, January 09, 2017 10:01 - CONCLUSION: 1. The patient refused imaging beyond 45 minutes. There is activity seen within small bowel and gallbladder with no evidence for cystic duct obstruction. Danie Kelly MD Abdomen/Pelvis CT 01/08/17 0000 Signed Impressions: Service Date/Time: Sunday, January 08, 2017 14:43 - CONCLUSION: 1. No evidence of mesenteric artery stenosis 2. Small amount of free fluid is present in the pelvis Humza Decker MD Abdomen Ultrasound 01/07/17 0000 Signed Impressions: Service Date/Time: December 01:11 - CONCLUSION: 1. No acute findings. Liver enlarged. Spleen mildly prominent at 14 cm. Leander Fiore MD Chest X-Ray 01/03/17 0600 Signed Impressions: Service Date/Time: Tuesday, January 03, 2017 04:42 - CONCLUSION: Normal examination. Right IJ [id number] catheter in excellent position. Lungs are clear. Enrique Ramos MD Port Line Insertion 12/31/16 0000 Signed Impressions: Service Date/Time: December 15:15 - CONCLUSION: Uncomplicated ultrasound and fluoroscopic guided implanted central venous port catheter placement as described in detail above. An 8 [place] Power port was placed. Nilson Bonner MD Gated Heart Nuclear Medicine 12/30/16 0000 Signed Impressions: Service Date/Time: Friday, December 30, 2016 13:16 - CONCLUSION: Negative exam. Calculated ejection fraction of 56%% with adequate wall motion throughout. Bean Dugan MD Brain MRI 12/27/16 0000 Signed Impressions: Service Date/Time: Tuesday, December 27, 2016 21:58 - CONCLUSION: Unremarkable study. Patricia Contreras MD Lumbar Puncture Fluoroscopy 12/26/16 0000 Signed Impressions: Service Date/Time: Monday, December 26, 2016 17:03 - CONCLUSION: Uncomplicated fluoroscopically guided lumbar puncture with pressures as above. Nilson Bonner MD Head CT 12/25/16 194 Signed Impressions: Service Date/Time: Sunday, December 25, 2016 19:50 - CONCLUSION: Negative noncontrast head CT. Audie Maria MD Objective Remarks GENERAL: This is a well-nourished, well-developed patient, in no apparent distress. CARDIOVASCULAR: Regular rate and regular rhythm without murmurs, gallops, or rubs. RESPIRATORY: Clear to auscultation. Breath sounds equal bilaterally. No wheezes , rales, or rhonchi. GASTROINTESTINAL: Abdomen soft, non-tender, nondistended. Normal, active bowel sounds MUSCULOSKELETAL: Extremities without clubbing, cyanosis, or edema. NEURO: Alert & Oriented x4 to person, place, time, situation. Moves all ext x4 Procedures 12/31 [id number] placement bone marrow biopsy Medications and IVs Current Medications Acetaminophen (Tylenol) 650 mg ONCE ONCE PO Last administered on 12/25/16 20: 28; Start 12/25/16 at 19:45; Stop 12/25/16 at 19:46; Status DC Sodium Chloride 1,000 ml @ 1,000 mls/hr Q1H ONCE IV Last administered on 20:27; Start 12/25/16 at 19:41; Stop 12/25/16 at 20:40; Status DC Sodium Chloride 1,000 ml @ 1,000 mls/hr Q1H ONCE IV Last administered on 20:41; Start 12/25/16 at 19:41; Stop 12/25/16 at 20:40; Status DC Sodium Chloride 1,000 ml @ 1,000 mls/hr Q1H ONCE IV Last administered on 21:09; Start 12/25/16 at 19:41; Stop 12/25/16 at 20:40; Status DC Sodium Chloride 900 ml @ 1,000 mls/hr Q54M ONCE IV Last administered on 21:46; Start 12/25/16 at 19:41; Stop 12/25/16 at 20:34; Status DC Prochlorperazine Edisylate (Compazine Inj) 10 mg ONCE ONCE IV PUSH Last administered on 12/25/16 20:28; Start 12/25/16 at 19:45; Stop 12/25/16 at 19:46 ; Status DC Diphenhydramine HCl (Benadryl Inj) 25 mg ONCE ONCE IV PUSH Last administered on 12/25/16 20:27; Start 12/25/16 at 19:45; Stop 12/25/16 at 19:46; Status DC Cefepime HCl 2000 mg/Sodium Chloride 100 ml @ 200 mls/hr ONCE STAT IV Last administered on 12/25/16 21:46; Start 12/25/16 at 21:13; Stop 12/25/16 at 21:42 ; Status DC Pharmacy Profile Note 0 ml @ 0 mls/hr UNSCH OTHER ; Start 12/25/16 at 23:00; Stop 12/30/16 at 20:00; Status DC Cefepime HCl 1000 mg/Sodium Chloride 100 ml @ 200 mls/hr Q12H IV Last administered on 12/28/16 08:18; Start 12/26/16 at 09:00; Stop 12/28/16 at 19:05 ; Status DC Sodium Chloride 1,000 ml @ 100 mls/hr Q10H IV Last administered on 12/27/16 17:17; Start 12/25/16 at 23:00; Stop 12/28/16 at 09:00; Status DC Sodium Chloride (NS Flush) 2 ml UNSCH PRN IV FLUSH FLUSH AFTER USING IV ACCESS Last administered on 12/30/16 04:59; Start 12/25/16 at 23:00 Sodium Chloride (NS Flush) 2 ml BID IV FLUSH Last administered on 01/26/17 21: 07; Start 12/26/16 at 09:00 Ondansetron HCl (Zofran Inj) 4 mg Q6H PRN IVP NAUSEA OR VOMITING Last administered on 01/05/17 15:10; Start 12/25/16 at 23:00; Stop 01/06/17 at 15:54 ; Status DC Acetaminophen (Tylenol) 650 mg Q6H PRN PO FEVER>100.4 Last administered on 01/26 14:55; Start 12/25/16 at 23:00 Acetaminophen/ Hydrocodone Bitart (Braggs 5-325 Mg) 1 tab Q4H PRN PO PAIN SCALE 3 TO 5 Last administered on 12/27/16 12:05; Start 12/25/16 at 23:00; Stop 12/27/16 at 13:56; Status DC Morphine Sulfate (Morphine Inj) 2 mg Q3H PRN IV Pain 6-10 Last administered on 01/06/17 22:09; Start 12/25/16 at 23:00; Stop 01/06/17 at 23:13; Status DC Senna/Docusate Sodium (Rika-Colace) 1 tab BID PO Last administered on 01/08/17 08:12; Start 12/26/16 at 09:00; Stop 01/09/17 at 12:59; Status DC Magnesium Hydroxide (Milk Of Magnesia Liq) 30 ml Q12H PRN PO MILD - MODERATE CONSTIPATION; Start 12/25/16 at 23:00 Sennosides (Senokot) 17.2 mg Q12H PRN PO MODERATE - SEVERE CONSTIPATION; Start 12/25/16 at 23:00; Stop 01/25/17 at 14:44; Status DC Bisacodyl (Dulcolax Supp) 10 mg DAILY PRN RECTAL SEVERE CONSITIPATION; Start at 23:00; Stop 01/25/17 at 14:44; Status DC Lactulose (Lactulose Liq) 30 ml DAILY PRN PO SEVERE CONSITIPATION; Start at 23:00; Stop 01/25/17 at 14:44; Status DC Vancomycin HCl 2500 mg/Sodium Chloride 525 ml @ 250 mls/hr Q12H IV Last administered on 12/26/16 00:27; Start 12/26/16 at 01:00; Stop 12/26/16 at 04:00 ; Status DC Guaifenesin/ Dextromethorphan (Robitussin Dm 200-20 Mg/10 ml Liq) 10 ml Q4H PRN PO cough Last administered on 12/26/16 18:19; Start 12/26/16 at 01:45; Stop 12/26/16 at 19:43; Status DC Benzonatate (Tessalon) 100 mg Q4H PRN PO COUGH Last administered on 12/26/16 15:12; Start 12/26/16 at 05:15; Stop 01/25/17 at 14:44; Status DC Vancomycin HCl 2000 mg/Sodium Chloride 520 ml @ 260 mls/hr Q12H IV Last administered on 12/27/16 17:16; Start 12/26/16 at 13:00; Stop 12/27/16 at 18:13 ; Status DC Miscellaneous Information SPECIFIC LAB TO BE JASKARAN... ONCE ONCE .XX Last administered on 12/27/16 17:05; Start 12/27/16 at 12:45; Stop 12/27/16 at 12:46 ; Status DC Sodium Bicarbonate 50 ml @ As Directed STK-MED ONCE .ROUTE Last administered on 12/26/16 16:54; Start 12/26/16 at 16:54; Stop 12/26/16 at 16:55; Status DC Iohexol (Omnipaque 350 Inj) 71 ml STK-MED ONCE IV Last administered on 17:47; Start 12/26/16 at 17:47; Stop 12/26/16 at 17:48; Status DC Albuterol/ Ipratropium (Duoneb Neb) 1 ampule Q6HR WHILE AWAKE NEB NEB Last administered on 12/30/16 09:15; Start 12/26/16 at 20:00; Stop 12/30/16 at 20:00 ; Status DC Guaifenesin/ Codeine Phosphate (Robitussin Ac 200-20 Mg/10 ml Liq) 10 ml Q4H PRN PO codine; Start 12/26/16 at 19:45; Stop 12/29/16 at 11:01; Status DC Promethazine HCl/ Codeine (Phenergan-Codeine Liq) 5 ml Q4H PRN PO COUGH Last administered on 12/31/16 17:09; Start 12/26/16 at 20:00; Stop 01/12/17 at 11:12 ; Status DC Sodium Chloride 250 ml @ 15 mls/hr ONCE ONCE IV Last administered on 23:23; Start 12/26/16 at 23:15; Stop 12/27/16 at 15:54; Status DC Acetaminophen (Tylenol) 650 mg Q4H PRN PO SEE LABEL COMMENTS; Start 12/26/16 at 23:15; Stop 12/27/16 at 03:16; Status DC Diphenhydramine HCl (Benadryl) 25 mg Q4H PRN PO SEE LABEL COMMENTS; Start 12/26 at 23:15; Stop 12/27/16 at 03:16; Status DC Calcium Gluconate 1 gm/Dextrose 110 ml @ 110 mls/hr ONCE ONCE IV Last administered on 12/26/16 23:56; Start 12/26/16 at 23:30; Stop 12/27/16 at 00:29 ; Status DC Diphenhydramine HCl (Benadryl) 25 mg Q4H PRN PO SEE LABEL COMMENTS Last administered on 01/16/17 02:23; Start 12/27/16 at 04:15; Stop 01/16/17 at 13:01; Status DC Acetaminophen (Tylenol) 650 mg Q4H PRN PO SEE LABEL COMMENTS Last administered on 01/15/17 13:52; Start 12/27/16 at 04:15; Stop 01/16/17 at 13:01; Status DC Mupirocin (Bactroban 2% Oint) 1 applic TID TOPICAL Last administered on 09:18; Start 12/27/16 at 14:15 Dexamethasone (Decadron) 4 mg Q12HR PO ; Start 12/27/16 at 21:00; Stop 12/27/16 at 21:00; Status DC Dexamethasone (Decadron) 4 mg ONCE ONCE PO Last administered on 12/27/16 14: 30; Start 12/27/16 at 14:00; Stop 12/27/16 at 14:01; Status DC Oxycodone HCl (Roxicodone) 5 mg Q6H PRN PO PAIN 1-10 Last administered on 21:56; Start 12/27/16 at 14:00; Stop 01/06/17 at 18:54; Status DC Lisinopril (Prinivil) 10 mg DAILY PO ; Start 12/28/16 at 15:00; Stop 12/28/16 at 15:00; Status DC Clonidine (Catapres) 0.2 mg Q6H PRN PO SBP > 160; Start 12/27/16 at 14:15; Stop 12/27/16 at 14:15; Status DC Diatrizoate Meglum/ Diatrizoate Sod ( Gastroview Liq) 18 ml ONCE ONCE PO Last administered on 12/27/16 17:16; Start 12/27/16 at 16:45; Stop 12/27/16 at 16:46; Status DC Albuterol Sulfate (Albuterol Concentrated Neb) 2.5 mg SEQUINS STRINGER NEB ; Start 12/27 at 16:45; Stop 12/31/16 at 16:44; Status DC Lidocaine HCl (Lidocaine Pf 4% Neb) 3 ml SEQUINS STRINGER NEB ; Start 12/27/16 at 16:45 ; Stop 12/31/16 at 16:44; Status DC Vancomycin HCl 2000 mg/Sodium Chloride 520 ml @ 260 mls/hr Q12H IV Last administered on 12/29/16 02:15; Start 12/28/16 at 05:00; Stop 12/29/16 at 03:00 ; Status DC Miscellaneous Information SPECIFIC LAB TO BE DRAWN:VANCOMY... ONCE ONCE .XX ; Start 12/29/16 at 04:45; Stop 12/29/16 at 04:46; Status DC Sodium Chloride 250 ml @ 15 mls/hr ONCE ONCE IV ; Start 12/27/16 at 18:30; Stop 12/27/16 at 18:38; Status DC Sodium Chloride 250 ml @ 15 mls/hr ONCE ONCE IV ; Start 12/27/16 at 18:45; Stop 12/28/16 at 11:24; Status DC Gadodiamide (Omniscan Pf Inj) 30 ml STK-MED ONCE IVCONTRAST Last administered on 12/27/16 22:10; Start 12/27/16 at 22:10; Stop 12/27/16 at 22:11; Status DC Iohexol (Omnipaque 350 Inj) 95 ml STK-MED ONCE IVCONTRAST Last administered on 12/27/16 23:00; Start 12/27/16 at 23:00; Stop 12/27/16 at 23:03; Status DC Lactated Ringer's 1,000 ml @ 30 mls/hr Q24H PRN IV SEE LABEL COMMENTS; Start at 06:15; Stop 12/31/16 at 06:14; Status DC Sodium Chloride 500 ml @ 30 mls/hr [id number] PRN IV SEE LABEL COMMENTS; Start at 06:15; Stop 12/31/16 at 06:14; Status DC Povidone Iodine (Betadine 5% Antisepsis Kit) 1 applic SEQUINS STRINGER PRN EACH NARE SEE LABEL COMMENTS; Start 12/28/16 at 06:15; Stop 12/31/16 at 06:14; Status DC Chlorhexidine Gluconate (Chlorhexidine 2% Cloth) 3 pack SEQUINS STRINGER PRN TOPICAL SEE LABEL COMMENTS; Start 12/28/16 at 06:15; Stop 12/31/16 at 06:14; Status DC Insulin Human Regular (NovoLIN R INJ) See Protocol Table ... SEQUINS STRINGER PRN SQ SEE PROTOCOL TABLE; Start 12/28/16 at 06:15; Stop 12/31/16 at 06:14; Status DC Dextrose 1,000 ml @ 84 mls/hr [id number] IV Last administered on 01/01/17 22:03 ; Start 12/28/16 at 09:00; Stop 01/02/17 at 12:34; Status DC Calcium Carbonate (Tums Chew) 500 mg Q6H PRN CHEW DYSPEPSIA OR HEARTBURN; Start 12/28/16 at 14:00; Stop 01/23/17 at 13:13; Status DC Pantoprazole Sodium (Protonix) 20 mg DAILY PO Last administered on 01/08/17 08: 13; Start 12/29/16 at 09:00; Stop 01/08/17 at 17:45; Status DC Famotidine (Pepcid Inj) 20 mg ONCE ONCE IV PUSH Last administered on 14:27; Start 12/28/16 at 14:20; Stop 12/28/16 at 14:21; Status DC Lidocaine HCl (Xylocaine 1% Inj) 20 ml STK-MED ONCE .ROUTE Last administered on 12/28/16 14:49; Start 12/28/16 at 14:49; Stop 12/28/16 at 14:50; Status DC Sodium Chloride (Sodium Chloride 0.9% Inj) 40 ml STK-MED ONCE .ROUTE ; Start at 15:54; Stop 12/28/16 at 15:55; Status DC Lidocaine HCl (Xylocaine 2% Inj) 50 ml STK-MED ONCE .ROUTE ; Start 12/28/16 at 15:55; Stop 12/28/16 at 15:56; Status DC Lidocaine HCl (Xylocaine 2% Viscous) 15 ml STK-MED ONCE .ROUTE ; Start 12/28/16 at 15:55; Stop 12/28/16 at 15:56; Status DC Lidocaine HCl (Xylocaine-Mpf 4% Inj) 5 ml STK-MED ONCE .ROUTE ; Start 12/28/16 at 15:55; Stop 12/28/16 at 15:56; Status DC Epinephrine HCl (Adrenalin (1:1000) Inj) 2 mg STK-MED ONCE .ROUTE ; Start at 15:55; Stop 12/28/16 at 15:56; Status DC Fentanyl Citrate (fentaNYL INJ) 250 mcg STK-MED ONCE .ROUTE Last administered on 12/28/16 16:38; Start 12/28/16 at 16:38; Stop 12/28/16 at 16:39; Status DC Midazolam HCl (Versed Inj) 4 mg STK-MED ONCE .ROUTE Last administered on 16:38; Start 12/28/16 at 16:38; Stop 12/28/16 at 16:39; Status DC Sugammadex Sodium (Bridion Inj) 400 mg STK-MED ONCE IV PUSH ; Start 12/28/16 at 17:30; Stop 12/28/16 at 17:31; Status DC Albuterol Sulfate (Albuterol Neb) 2.5 mg UNSCH X1 PRN NEB SHORTNESS OF BREATH; Start 12/28/16 at 18:15; Stop 12/29/16 at 18:14; Status DC Albuterol Sulfate (*ALBUTEROL NEB PERIprocedure ONLY) 2.5 mg STK-MED ONCE NEB Last administered on 12/28/16 18:20; Start 12/28/16 at 18:20; Stop 12/28/16 at 18:21; Status DC Fentanyl Citrate (fentaNYL INJ) 100 mcg STK-MED ONCE .ROUTE ; Start 12/28/16 at 18:27; Stop 12/28/16 at 18:28; Status DC Miscellaneous Information ALL NURSING DEPARTME... UNSCH PRN .XX SEE LABEL COMMENTS; Start 12/28/16 at 18:45; Stop 12/29/16 at 18:44; Status DC Lorazepam (Ativan Inj) 2 mg STK-MED ONCE .ROUTE ; Start 12/28/16 at 18:35; Stop 12/28/16 at 18:36; Status DC Cefepime HCl 2000 mg/Sodium Chloride 100 ml @ 200 mls/hr Q12H IV Last administered on 12/29/16 09:08; Start 12/28/16 at 21:00; Stop 12/29/16 at 22:34 ; Status DC Fluconazole/ Sodium Chloride 200 ml @ 100 mls/hr Q24H IV Last administered on 01/04/17 21:49; Start 12/28/16 at 22:00; Stop 01/05/17 at 17:06; Status DC Azithromycin 500 mg/Sodium Chloride 250 ml @ 250 mls/hr Q24H IV Last administered on 01/03/17 21:17; Start 12/28/16 at 20:00; Stop 01/04/17 at 14:48 ; Status DC Fentanyl Citrate (fentaNYL INJ) 100 mcg STK-MED ONCE .ROUTE ; Start 12/28/16 at 19:47; Stop 12/28/16 at 19:48; Status DC Vancomycin HCl 2000 mg/Sodium Chloride 520 ml @ 260 mls/hr Q12H IV Last administered on 12/30/16 16:14; Start 12/29/16 at 14:00; Stop 12/30/16 at 20:00 ; Status DC Miscellaneous Information SPECIFIC LAB TO BE DRAWN:VANCOMYCIN TROUGH DATE TO... ONCE ONCE .XX Last administered on 12/30/16 02:00; Start 12/30/16 at 01:45; Stop 12/30/16 at 01:46; Status DC Methylprednisolone Sodium Succinate (SoluMEDROL INJ) 40 mg ONCE ONCE IV PUSH Last administered on 12/29/16 22:08; Start 12/29/16 at 21:15; Stop 12/29/16 at 21:16; Status DC Methylprednisolone Sodium Succinate (SoluMEDROL INJ) 125 mg NOW ONCE IV ; Start 12/29/16 at 21:30; Stop 12/29/16 at 21:30; Status DC Allopurinol (Zyloprim) 200 mg BID PO Last administered on 01/05/17 21:47; Start 12/29/16 at 22:00; Stop 01/05/17 at 23:59; Status DC Cefepime HCl 2000 mg/Sodium Chloride 100 ml @ 200 mls/hr Q12H IV Last administered on 01/04/17 11:09; Start 12/29/16 at 23:00; Stop 01/04/17 at 14:48 ; Status DC Sodium Chloride (NS Flush) 5 ml DAILY IV FLUSH Last administered on 01/26/17 08:38; Start 12/30/16 at 09:00 Heparin Sodium (Porcine) (Heparin Central Flush) 500 units DAILY IV FLUSH Last administered on 01/26/17 08:38; Start 12/30/16 at 09:00 Sodium Chloride (NS Flush) 5 ml UNSCH PRN IV FLUSH SEE PROTOCOL TABLE; Start at 06:30 Heparin Sodium (Porcine) (Heparin Central Flush) 500 units UNSCH PRN IV FLUSH SEE PROTOCOL TABLE Last administered on 12/31/16 15:45; Start 12/30/16 at 06:30 Acetaminophen (Tylenol) 650 mg ONCE ONCE PO Last administered on 12/30/16 10: 38; Start 12/30/16 at 08:30; Stop 12/30/16 at 08:31; Status DC Diphenhydramine HCl (Benadryl) 25 mg ONCE ONCE PO Last administered on 10:37; Start 12/30/16 at 08:30; Stop 12/30/16 at 08:31; Status DC Methylprednisolone Sodium Succinate (SoluMEDROL INJ) 40 mg ONCE ONCE IV PUSH Last administered on 12/30/16 10:37; Start 12/30/16 at 10:00; Stop 12/30/16 at 10:04; Status DC Cefazolin Sodium/ Dextrose 50 ml @ 100 mls/hr SEQUINS STRINGER IV ; Start 12/30/16 at 10:30; Stop 01/03/17 at 10:29; Status DC Methylprednisolone Sodium Succinate (SoluMEDROL INJ) 40 mg ONCE IM ; Start 12/31 at 07:00; Status UNV Granisetron HCl 1 mg/Dexamethasone Sodium Phosphate 20 mg/Sodium Chloride 56 ml @ 336 mls/hr Q24H IV Last administered on 01/07/17 04:14; Start 12/31/16 at 17:30; Stop 01/06/17 at 17:39; Status DC Midazolam HCl (Versed Inj) 4 mg STK-MED ONCE .ROUTE Last administered on 14:40; Start 12/31/16 at 14:40; Stop 12/31/16 at 14:41; Status DC Fentanyl Citrate (fentaNYL INJ) 250 mcg STK-MED ONCE .ROUTE Last administered on 12/31/16 14:40; Start 12/31/16 at 14:40; Stop 12/31/16 at 14:41; Status DC Cytarabine 200 mg/ Sodium Chloride 500 ml @ 20.833 mls/ hr Q24H IV Last administered on 01/07/17 06:27; Start 12/31/16 at 18:30; Stop 01/07/17 at 18:29 ; Status DC Daunorubicin HCl 180 mg/Sodium Chloride 136 ml @ 272 mls/hr Q24H IV Last administered on 01/03/17 01:51; Start 12/31/16 at 18:00; Stop 01/02/17 at 18:29 ; Status DC Lidocaine/ Epinephrine (Xylocaine-Epi Mpf 2%-1:200,000 Inj) 20 ml STK-MED ONCE .ROUTE Last administered on 12/31/16 15:19; Start 12/31/16 at 15:08; Stop at 15:09; Status DC Heparin Sodium (Porcine) (Heparin Central Flush) 500 units UNSCH IV FLUSH ; Start 12/31/16 at 15:45 Sodium Chloride (NS Flush) 5 ml UNSCH PRN IVF SEE PROTOCOL; Start 12/31/16 at 15:45 Heparin Sodium (Porcine) (Heparin Central Flush) 250 units UNSCH PRN IV FLUSH SEE PROTOCOL; Start 12/31/16 at 15:45 Methylprednisolone Sodium Succinate (SoluMEDROL INJ) 40 mg ONCE ONCE IV Last administered on 12/31/16 21:09; Start 12/31/16 at 17:00; Stop 12/31/16 at 17:01 ; Status DC Sodium Chloride 1,000 ml @ 42 mls/hr [id number] IV Last administered on 17:34; Start 01/02/17 at 12:45; Stop 01/08/17 at 11:33; Status DC Promethazine HCl (Phenergan) 25 mg Q4H PRN PO nausea or vomitting Last administered on 01/14/17 03:49; Start 01/04/17 at 10:15; Stop 01/14/17 at 16:35; Status DC Levofloxacin (Levaquin) 750 mg DAILY@1100 PO Last administered on 01/05/17 10: 54; Start 01/04/17 at 16:00; Stop 01/06/17 at 12:33; Status DC Calcium Chloride 1 gm/Dextrose 110 ml @ 110 mls/hr ONCE ONCE IV Last administered on 01/04/17 23:43; Start 01/04/17 at 23:00; Stop 01/04/17 at 23:59 ; Status DC Dicyclomine HCl (Bentyl) 20 mg TID PO Last administered on 01/10/17 09:52; Start 01/05/17 at 10:00; Stop 01/10/17 at 10:54; Status DC Sodium Chloride 500 ml @ 250 mls/hr Q2H ONCE IV Last administered on 14:07; Start 01/05/17 at 13:45; Stop 01/05/17 at 15:44; Status DC Ondansetron HCl (Zofran Inj) 4 mg Q8HR IV PUSH Last administered on 01/08/17 05 :22; Start 01/06/17 at 06:00; Stop 01/08/17 at 06:00; Status DC Allopurinol (Zyloprim) 200 mg DAILY PO Last administered on 01/26/17 08:38; Start 01/06/17 at 09:00 Calcium Chloride 1 gm/Sodium Chloride 110 ml @ 110 mls/hr ONCE ONCE IV Last administered on 01/06/17 09:35; Start 01/06/17 at 08:30; Stop 01/06/17 at 09:29 ; Status DC Hyoscyamine Sulfate (Levsin) 0.25 mg Q4H PRN PO CRAMPS Last administered on 10:06; Start 01/06/17 at 09:30; Stop 01/23/17 at 13:13; Status DC Morphine Sulfate (Morphine Inj) 2 mg NOW ONCE IV Last administered on 13:15; Start 01/06/17 at 13:15; Stop 01/06/17 at 13:16; Status DC Calcium Chloride 1 gm/Sodium Chloride 110 ml @ 110 mls/hr ONCE ONCE IV Last administered on 01/06/17 19:01; Start 01/06/17 at 15:00; Stop 01/06/17 at 15:59 ; Status DC Iohexol (Omnipaque 350 Inj) 81 ml STK-MED ONCE IVCONTRAST Last administered on 01/06/17 15:27; Start 01/06/17 at 15:27; Stop 01/06/17 at 15:28; Status DC Oxycodone HCl (Roxicodone) 5 mg ONCE ONCE PO ; Start 01/06/17 at 19:00; Stop at 19:01; Status Cancel Oxycodone HCl (Roxicodone) 5 mg Q6H PRN PO pain; Start 01/06/17 at 18:15; Stop 01/06/17 at 18:42; Status DC Hydromorphone HCl (Dilaudid Pf Inj) 0.5 mg ONCE ONCE IV Last administered on 19:00; Start 01/06/17 at 19:00; Stop 01/06/17 at 19:01; Status DC Oxycodone HCl (Roxicodone) 5 mg Q4H PRN PO PAIN 1-10 Last administered on 22:51; Start 01/06/17 at 19:00; Stop 01/09/17 at 12:32; Status DC Hydromorphone HCl (Dilaudid Pf Inj) 1 mg Q4H PRN IV PAIN SCALE 1 TO 10 Last administered on 01/08/17 02:12; Start 01/06/17 at 23:15; Stop 01/08/17 at 02:41; Status DC Sodium Chloride 1,000 ml @ 999 mls/hr BOLUS ONCE IV Last administered on 01/07 10:15; Start 01/07/17 at 10:00; Stop 01/07/17 at 11:00; Status DC Sodium Chloride 1,000 ml @ 75 mls/hr [id number] IV Last administered on 01/13/17 14:23; Start 01/07/17 at 14:00; Stop 01/13/17 at 14:51; Status DC Hydromorphone HCl (Dilaudid Pf Inj) 1 mg Q3H PRN IV PAIN SCALE 1 TO 10 Last administered on 01/08/17 08:12; Start 01/08/17 at 02:45; Stop 01/08/17 at 11:58; Status DC Hydromorphone HCl (Dilaudid Pf Inj) 1.5 mg ONCE ONCE IV PUSH Last administered on 01/08/17 11:44; Start 01/08/17 at 11:15; Stop 01/08/17 at 11:18; Status DC Sodium Chloride 250 ml @ 15 mls/hr ONCE ONCE IV Last administered on 16:30; Start 01/08/17 at 11:30; Stop 01/09/17 at 04:09; Status DC Acetaminophen (Tylenol) 650 mg Q4H PRN PO SEE LABEL COMMENTS; Start 01/08/17 at 11:30; Status Cancel Diphenhydramine HCl (Benadryl) 25 mg Q4H PRN PO SEE LABEL COMMENTS; Start at 11:30; Status Cancel Hydromorphone HCl (Dilaudid Pf Inj) 1.5 mg Q3H PRN IV PAIN SCALE 1 TO 10 Last administered on 01/09/17 11:17; Start 01/08/17 at 14:45; Stop 01/09/17 at 12:32; Status DC Iohexol (Omnipaque 350 Inj) 100 ml STK-MED ONCE IVCONTRAST Last administered on 01/08/17 14:41; Start 01/08/17 at 14:41; Stop 01/08/17 at 14:43; Status DC Pantoprazole Sodium (Protonix) 20 mg BID PO Last administered on 01/09/17 08:51 ; Start 01/08/17 at 21:00; Stop 01/09/17 at 13:51; Status DC Sodium Chloride 250 ml @ 15 mls/hr ONCE ONCE IV ; Start 01/09/17 at 08:15; Stop 01/10/17 at 00:54; Status DC Oxycodone HCl (Roxicodone) 10 mg ONCE ONCE PO Last administered on 01/09/17 09 :24; Start 01/09/17 at 09:00; Stop 01/09/17 at 09:17; Status DC Hydromorphone HCl (Dilaudid Pf Inj) 2 mg Q3H PRN IV PAIN SCALE 1 TO 10 Last administered on 01/11/17 13:34; Start 01/09/17 at 14:45; Stop 01/11/17 at 13:42; Status DC Hydromorphone HCl (Dilaudid Pf Inj) 2 mg ONCE ONCE IV PUSH Last administered on 01/09/17 13:16; Start 01/09/17 at 13:00; Stop 01/09/17 at 13:07; Status DC Pantoprazole Sodium (Protonix Inj) 40 mg Q12HR IV PUSH Last administered on 01/11 08:05; Start 01/09/17 at 14:00; Stop 01/11/17 at 15:02; Status DC Sucralfate (Carafate Liq) 1 gm ACHS PO Last administered on 01/26/17 21:06; Start 01/09/17 at 16:00 Piperacillin Sod/ Tazobactam Sod 100 ml @ 200 mls/hr Q8H IV Last administered on 01/13/17 15:51; Start 01/09/17 at 15:00; Stop 01/13/17 at 19:46; Status DC Sodium Chloride 250 ml @ 15 mls/hr ONCE ONCE IV Last administered on 10:20; Start 01/10/17 at 08:00; Stop 01/11/17 at 00:39; Status DC Oxycodone HCl (Roxicodone) 10 mg ONCE ONCE PO Last administered on 01/10/17 11 :12; Start 01/10/17 at 11:00; Stop 01/10/17 at 11:01; Status DC Lactobacillus Acidophilus (Lactinex) 1 tab TID PO Last administered on 12:57; Start 01/10/17 at 18:00; Stop 01/13/17 at 14:38; Status DC Oxycodone HCl (Roxicodone) 10 mg ONCE ONCE PO Last administered on 01/11/17 09 :32; Start 01/11/17 at 08:15; Stop 01/11/17 at 08:26; Status DC Hydromorphone HCl (Dilaudid Pf Inj) 2 mg Q2H PRN IV PAIN SCALE 1 TO 10 Last administered on 01/11/17 15:56; Start 01/11/17 at 13:45; Stop 01/12/17 at 08:06; Status DC Pantoprazole Sodium 80 mg/ Sodium Chloride 100 ml @ 10 mls/hr CONTINUOUS IV Last administered on 01/22/17 09:56; Start 01/11/17 at 16:00; Stop 01/23/17 at 09:58; Status DC Naloxone HCl (Narcan Inj) 0.4 mg UNSCH PRN IV RESPIRATORY RATE LESS THAN 10; Start 01/11/17 at 15:15; Stop 01/22/17 at 09:43; Status DC Hydromorphone HCl (Dilaudid ENGINEER SERGEANT Inj) 6 mg UNSCH IV Last administered on 09:11; Start 01/11/17 at 15:15; Stop 01/22/17 at 09:43; Status DC ENGINEER SERGEANT Dosage Infused (Pha) 1 Q8HR OTHER Last administered on 01/22/17 06:00; Start 01/11/17 at 15:45; Stop 01/22/17 at 09:43; Status DC Ondansetron HCl (Zofran Inj) 8 mg Q8H PRN IV PUSH NAUSEA Last administered on 12:32; Start 01/11/17 at 17:15; Status Future hold Hydromorphone HCl (Dilaudid Pf Inj) 1 mg ONCE ONCE IV PUSH Last administered on 01/12/17 02:37; Start 01/12/17 at 02:30; Stop 01/12/17 at 02:31; Status DC Propofol (Diprivan 200 Mg/20 ml Inj) 400 mg STK-MED ONCE IV ; Start 12/28/16 at 12:00; Stop 01/12/17 at 08:23; Status DC Sodium Chloride 250 ml @ 15 mls/hr ONCE ONCE IV Last administered on 10:00; Start 01/12/17 at 10:00; Stop 01/13/17 at 02:39; Status DC Hydromorphone HCl (Dilaudid Pf Inj) 2 mg STAT ONCE IV PUSH Last administered on 01/12/17 11:09; Start 01/12/17 at 11:00; Stop 01/12/17 at 11:01; Status DC Gadodiamide (Omniscan Pf Inj) 30 ml STK-MED ONCE IV PUSH Last administered on 10:51; Start 01/12/17 at 10:51; Stop 01/12/17 at 10:52; Status DC Hydromorphone HCl (Dilaudid Pf Inj) 2 mg Q4H PRN IV PUSH SEVERE BREAKTHROUGH PAIN Last administered on 01/25/17 05:11; Start 01/12/17 at 15:30; Stop at 09:49; Status DC Sodium Chloride 250 ml @ 15 mls/hr ONCE ONCE IV Last administered on 08:30; Start 01/13/17 at 08:30; Stop 01/14/17 at 01:09; Status DC Metronidazole 100 ml @ 100 mls/hr Q6H IV ; Start 01/13/17 at 11:15; Stop at 11:15; Status DC Ciprofloxacin/ Dextrose 200 ml @ 200 mls/hr Q12H IV ; Start 01/13/17 at 11:15; Stop 01/13/17 at 11:15; Status DC Potassium Chloride (KCl) 40 meq ONCE ONCE PO Last administered on 01/13/17 14: 23; Start 01/13/17 at 13:00; Stop 01/13/17 at 13:59; Status DC Potassium Chloride/Sodium Chloride 1,000 ml @ 100 mls/hr Q10H IV Last administered on 01/13/17 20:00; Start 01/13/17 at 15:00; Stop 01/15/17 at 13:26; Status DC Piperacillin Sod/ Tazobactam Sod 100 ml @ 200 mls/hr Q6H IV Last administered on 01/21/17 15:00; Start 01/13/17 at 21:00; Stop 01/21/17 at 19:56; Status DC Pharmacy Profile Note 0 ml @ 0 mls/hr UNSCH OTHER ; Start 01/13/17 at 19:45; Stop 01/21/17 at 19:56; Status DC Vancomycin HCl 2000 mg/Sodium Chloride 520 ml @ 250 mls/hr Q12H IV Last administered on 01/14/17 10:31; Start 01/13/17 at 21:00; Stop 01/14/17 at 12:26; Status DC Miscellaneous Information SPECIFIC LAB TO BE ... ONCE ONCE .XX Last administered on 01/16/17 08:45; Start 01/16/17 at 08:45; Stop 01/16/17 at 08:46; Status DC Sodium Chloride 250 ml @ 15 mls/hr ONCE ONCE IV ; Start 01/14/17 at 08:45; Stop 01/15/17 at 01:24; Status DC Ketamine HCl (Ketalar Inj) 500 mg STK-MED ONCE .ROUTE ; Start 01/14/17 at 09:18; Stop 01/14/17 at 09:19; Status DC Propofol (Diprivan 200 Mg/20 ml Inj) 100 mg STK-MED ONCE IV PUSH ; Start at 09:30; Stop 01/14/17 at 10:03; Status DC Fluconazole/ Sodium Chloride 200 ml @ 100 mls/hr Q24H IV Last administered on 01/20/17 10:57; Start 01/14/17 at 12:00; Stop 01/20/17 at 19:49; Status DC Nystatin (Mycostatin Liq) 5 ml QID SWISH-SWAL Last administered on 01/23/17 08:50; Start 01/14/17 at 13:00; Stop 01/23/17 at 12:27; Status DC Vancomycin HCl 2500 mg/Sodium Chloride 525 ml @ 250 mls/hr Q12H IV Last administered on 01/16/17 12:22; Start 01/14/17 at 21:00; Stop 01/16/17 at 13:02; Status DC Potassium Chloride 100 ml @ 25 mls/hr Q4H IV Last administered on 01/14/17 17: 54; Start 01/14/17 at 14:00; Stop 01/14/17 at 21:59; Status DC Promethazine HCl (Phenergan Inj) 12.5 mg STAT STAT IV-CENTRAL Last administered on 01/14/17 14:23; Start 01/14/17 at 14:11; Stop 01/14/17 at 14:15; Status DC Promethazine HCl (Phenergan Inj) 12.5 mg Q4H PRN IV-CENTRAL nausea Last administered on 01/20/17 12:00; Start 01/14/17 at 16:45; Stop 01/25/17 at 14:44 ; Status DC Multi-Ingredient Mouthwash/Gargle (Magic Mouthwash Adult Liq) 10 ml QID PRN SWISH-SWAL sore throat Last administered on 01/21/17 09:45; Start 01/15/17 at 06 :30; Stop 01/25/17 at 14:44; Status DC Benzocaine/Menthol (Chloraseptic Sanjay) 1 lozenge UNSCH PRN BUCCAL sore throat; Start 01/15/17 at 06:30; Stop 01/25/17 at 14:44; Status DC Sodium Chloride 250 ml @ 15 mls/hr ONCE ONCE IV Last administered on 16:16; Start 01/15/17 at 07:45; Stop 01/16/17 at 00:24; Status DC Sodium Chloride 250 ml @ 15 mls/hr ONCE ONCE IV ; Start 01/15/17 at 07:45; Stop 01/16/17 at 00:24; Status DC Potassium Phosphate 30 mmol/ Sodium Chloride 260 ml @ 43.333 mls/ hr ONCE ONCE IV Last administered on 01/15/17 11:01; Start 01/15/17 at 09:00; Stop at 14:59; Status DC Diphenhydramine HCl (Benadryl Inj) 25 mg ONCE ONCE IV PUSH Last administered on 01/15/17 08:38; Start 01/15/17 at 08:15; Stop 01/15/17 at 08:16; Status DC Iohexol (Omnipaque 350 Inj) 92 ml STK-MED ONCE IVCONTRAST ; Start 01/15/17 at 10: 17; Stop 01/15/17 at 10:18; Status DC Potassium Chloride/Dextrose/ Sod Cl 1,000 ml @ 84 mls/hr [id number] IV Last administered on 01/17/17 01:44; Start 01/15/17 at 13:30; Stop 01/17/17 at 08:38 ; Status DC Sodium Chloride 250 ml @ 15 mls/hr ONCE ONCE IV Last administered on 13:00; Start 01/16/17 at 13:00; Stop 01/17/17 at 05:39; Status DC Acetaminophen (Tylenol) 650 mg Q4H PRN PO SEE LABEL COMMENTS Last administered on 01/17/17 14:20; Start 01/16/17 at 13:00; Stop 01/17/17 at 14:20; Status DC Diphenhydramine HCl (Benadryl) 25 mg Q4H PRN PO SEE LABEL COMMENTS Last administered on 01/17/17 14:20; Start 01/16/17 at 13:00; Stop 01/17/17 at 14:20 ; Status DC Vancomycin HCl 2000 mg/Sodium Chloride 520 ml @ 250 mls/hr Q8H IV Last administered on 01/19/17 15:08; Start 01/16/17 at 20:00; Stop 01/19/17 at 21:47 ; Status DC Miscellaneous Information SPECIFIC LAB TO BE DRAWN:VANCO TROUGH DATE TO... ONCE ONCE .XX Last administered on 01/17/17 11:05; Start 01/17/17 at 11:45; Stop 01/17/17 at 11:46; Status DC Potassium Chloride 100 ml @ 50 mls/hr Q2H IV Last administered on 01/17/17 08 :26; Start 01/16/17 at 22:45; Stop 01/17/17 at 04:44; Status DC Potassium Chloride 100 ml @ As Directed STK-MED ONCE .ROUTE ; Start 01/17/17 at 08:25; Stop 01/17/17 at 08:26; Status DC Potassium Chloride/Dextrose/ Sod Cl 1,000 ml @ 84 mls/hr [id number] IV Last administered on 01/22/17 09:56; Start 01/17/17 at 13:30; Stop 01/25/17 at 09:49 ; Status DC Aminocaproic Acid (Amicar) 1,000 mg Q6HR PO Last administered on 01/22/17 06: 17; Start 01/17/17 at 12:00; Stop 01/22/17 at 09:33; Status DC Sodium Chloride 250 ml @ 15 mls/hr ONCE ONCE IV ; Start 01/17/17 at 13:00; Stop 01/18/17 at 05:39; Status DC Potassium Phosphate (K-Phos) 1,000 mg ONCE ONCE PO Last administered on 12:41; Start 01/17/17 at 13:00; Stop 01/17/17 at 13:01; Status DC Calcium Gluconate 1 gm/Sodium Chloride 110 ml @ 110 mls/hr NOW ONCE IV Last administered on 01/17/17 17:12; Start 01/17/17 at 15:45; Stop 01/17/17 at 16:44 ; Status DC Potassium Chloride 100 ml @ 50 mls/hr Q2H IV Last administered on 01/18/17 12 :22; Start 01/17/17 at 21:00; Stop 01/18/17 at 04:59; Status DC Diphenhydramine HCl (Benadryl) 25 mg Q4H PRN PO SEE LABEL COMMENTS Last administered on 01/18/17 04:53; Start 01/18/17 at 05:00; Stop 01/18/17 at 08:00 ; Status DC Potassium Chloride 100 ml @ As Directed STK-MED ONCE .ROUTE ; Start 01/18/17 at 09:38; Stop 01/18/17 at 09:39; Status DC Acetaminophen (Tylenol) 650 mg Q6H PRN PO WHILE BLOOD INFUSING Last administered on 01/19/17 11:31; Start 01/18/17 at 10:00; Stop 01/25/17 at 14:44 ; Status DC Diphenhydramine HCl (Benadryl) 25 mg Q4H PRN PO WHILE BLOOD INFUSING Last administered on 01/19/17 11:31; Start 01/18/17 at 10:00; Stop 01/25/17 at 14:44 ; Status DC Potassium Phosphate 30 mmol/ Sodium Chloride 260 ml @ 43.333 mls/ hr ONCE ONCE IV Last administered on 01/18/17 16:29; Start 01/18/17 at 14:00; Stop 03/26 at 19:59; Status DC Potassium Chloride 100 ml @ As Directed STK-MED ONCE .ROUTE ; Start 01/18/17 at 12:15; Stop 01/18/17 at 12:16; Status DC Miscellaneous Information SPECIFIC LAB TO BE JASKARAN... ONCE ONCE .XX Last administered on 01/19/17 19:45; Start 01/19/17 at 19:45; Stop 01/19/17 at 19:46 ; Status DC Potassium Chloride (KCl) 20 meq Q12HR PO Last administered on 01/24/17 09:45; Start 01/19/17 at 09:30; Stop 01/25/17 at 12:03; Status DC Acetaminophen (Tylenol) 650 mg Q4H PRN PO SEE LABEL COMMENTS; Start 01/20/17 at 06:00; Stop 01/25/17 at 14:44; Status DC Diphenhydramine HCl (Benadryl) 25 mg Q4H PRN PO SEE LABEL COMMENTS; Start 01/20 at 06:00; Stop 01/25/17 at 14:44; Status DC Sodium Chloride 250 ml @ 15 mls/hr ONCE ONCE IV ; Start 01/19/17 at 12:00; Stop 01/20/17 at 04:39; Status DC Oxymetazoline HCl (Afrin 0.05% [place]) 2 spray ONCE STAT NASAL ; Start 01/19 at 11:49; Stop 01/19/17 at 12:00; Status DC Aminocaproic Acid 2000 mg/Sodium Chloride 230 ml @ 250 mls/hr ONCE STAT IV ; Start 01/19/17 at 11:49; Stop 01/19/17 at 12:13; Status DC Aminocaproic Acid 2000 mg/Sodium Chloride 250 ml @ 250 mls/hr ONCE STAT IV ; Start 01/19/17 at 12:13; Stop 01/19/17 at 12:23; Status DC Aminocaproic Acid 2000 mg/Sodium Chloride 250 ml @ 250 mls/hr ONCE STAT IV Last administered on 01/19/17 13:06; Start 01/19/17 at 12:23; Stop 01/19/17 at 13:22; Status DC Vancomycin HCl 1500 mg/Sodium Chloride 515 ml @ 257.5 mls/ hr Q8H IV Last administered on 01/20/17 13:29; Start 01/20/17 at 00:00; Stop 01/20/17 at 15:45 ; Status DC Miscellaneous Information SPECIFIC LAB TO BE DRAWN:VANCO TROUGH DATE TO BE DRDexter.Dexter ONCE ONCE .XX ; Start 01/20/17 at 15:45; Stop 01/20/17 at 15:45; Status DC Vancomycin HCl 1500 mg/Sodium Chloride 515 ml @ 257.5 mls/ hr Q8H IV Last administered on 01/21/17 06:30; Start 01/20/17 at 21:00; Stop 01/21/17 at 19:56 ; Status DC Miscellaneous Information SPECIFIC LAB TO BE DRAWN:VANCOMYCIN TROUGH DATE TO... ONCE ONCE .XX Last administered on 01/21/17 04:45; Start 01/21/17 at 04:45; Stop 01/21/17 at 04:46; Status DC Fluconazole (Diflucan 40 Mg/ ml Liq) 200 mg DAILY PO ; Start 01/20/17 at 19:45; Stop 01/20/17 at 19:48; Status DC Fluconazole (Diflucan 40 Mg/ ml Liq) 200 mg DAILY PO Last administered on 08:38; Start 01/21/17 at 09:00; Stop 01/27/17 at 09:00 Potassium Chloride (KCl) 20 meq ONCE ONCE PO ; Start 01/21/17 at 10:00; Stop at 11:03; Status DC Miscellaneous Information SPECIFIC LAB TO BE .. ONCE ONCE .XX ; Start 01/22 at 12:45; Stop 01/22/17 at 12:46; Status DC Lidocaine HCl (Xylocaine 1% Inj) 20 ml STK-MED ONCE .ROUTE Last administered on 01/22/17 12:16; Start 01/22/17 at 12:16; Stop 01/22/17 at 12:17; Status DC Fentanyl Citrate (fentaNYL INJ) 100 mcg STK-MED ONCE .ROUTE Last administered on 01/22/17 12:24; Start 01/22/17 at 12:24; Stop 01/22/17 at 12:25; Status DC Fentanyl Citrate (fentaNYL INJ) 100 mcg STK-MED ONCE .ROUTE Last administered on 01/22/17 12:24; Start 01/22/17 at 12:24; Stop 01/22/17 at 12:25; Status DC Midazolam HCl (Versed Inj) 5 mg STK-MED ONCE .ROUTE Last administered on 12:24; Start 01/22/17 at 12:24; Stop 01/22/17 at 12:25; Status DC Oxycodone HCl (Roxicodone) 5 mg Q4H PRN PO PAIN3-9 Last administered on 12:39; Start 01/23/17 at 08:15; Stop 01/26/17 at 16:10; Status DC Pantoprazole Sodium (Protonix Inj) 40 mg Q12HR IV PUSH Last administered on 21:05; Start 01/23/17 at 11:00 Alteplase, Recombinant (Cathflo Activase Inj) 2 mg Q2H PRN INTRACATH clotted catheter Last administered on 01/24/17 09:46; Start 01/24/17 at 08:45 Hydromorphone HCl (Dilaudid Pf Inj) 2 mg Q8H PRN IV PUSH SEVERE BREAKTHROUGH PAIN Last administered on 01/26/17 10:48; Start 01/25/17 at 10:00; Stop at 16:10; Status DC Potassium Bicarb/ Potassium Chloride (K-Lyte Cl Eff) 25 meq DAILY NG Last administered on 01/25/17 13:16; Start 01/25/17 at 12:15; Stop 01/25/17 at 14:44 ; Status DC Docusate Sodium (Colace) 100 mg TID PO Last administered on 01/26/17 18:39; Start 01/25/17 at 18:00 Iohexol (Omnipaque 350 Inj) 100 ml STK-MED ONCE IVCONTRAST Last administered on 01/26/17 14:08; Start 01/26/17 at 14:08; Stop 01/26/17 at 14:09; Status DC Oxycodone HCl (Roxicodone) 5 mg Q4H PRN PO PAIN SCALE 1 TO 5 Last administered on 01/27/17 04:40; Start 01/26/17 at 16:15 Hydromorphone HCl (Dilaudid Pf Inj) 2 mg Q4H PRN IV PUSH PAIN SCALE 6 TO 10 Last administered on 01/27/17 06:08; Start 01/26/17 at 16:15 A/P Assessment and Plan A/P - AML started on induction chemotherapy per oncology. heme/onc managing with induction therapy, -- BMB showed 70% blasts in bone marrow MUGA scan shows normal EF and no wall motion abnormalities 12/30/2016 Port placement by IR completed 12/31/16 bone marrow pathology pending. - tachycardia; better- no chest pain or sob- CTA chest negative for PE- continue to monitor -neutropenic fever- resolved- off antibiotics- evaluated by ID. 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 s/p EGD with esophageal candidiasis, esophageal ulcer and gastritis. continue diflucan, PPI and Carafate. GI follow-up appreciated and signed off. MRI negative for acute findings. Splenic hemangiomas noted. continue with pain control; oxycodone was added- will taper down IV dilaudid- --thrombocytopenia - 2/2 AML-resolved. --Prolonged immobilization. Doppler studies negative for DVT. PT/OT eval/tx. Discharge Planning when ok with Oncology. Dacia Watkins MD Jan 27, 2017 07:50
[2017-01-27 08:06] LABS: BANDS 7 % (0-6); BASOPHILS 1 % (0-2); BLASTS 1 % (0-0); CORRECTED NUCLEATED RBC 1 /100 WBC (0-0); MYELOCYTES 4 % (0-0); NEUTROPHIL # MANUAL DIFF 3.4 TH/MM3 (1.8-7.7); PLATELET ESTIMATE SMEAR HIGH (NORMAL); PLATELET MORPHOLOGY NORMAL (NORMAL); POLYS (SEG NEUTROPHILS) 43 % (16-70); SCAN/DIFF FINAL DIFF MANUAL; WBC DIFF SAMPLE 100
[2017-01-27] MEDS: SODIUM CHLORIDE 0.9% FLUSH 10 ML FLUSH IV FLUSH SCH ×2 (09:00→20:09)
[2017-01-27] MEDS: MUPIROCIN 2% OINT 22 GM TUBE TOPICAL SCH ×3 (09:00→16:17)
[2017-01-27] MEDS: FLUCONAZOLE SUSP 40 MG/ML 35 ML BTL PO SCH (09:00)
[2017-01-27] MEDS: ALLOPURINOL 100 MG TAB PO SCH (10:04)
[2017-01-27] MEDS: DOCUSATE SODIUM 100 MG CAP PO SCH ×3 (10:04→16:11)
[2017-01-27] MEDS: SUCRALFATE 1 GM/10 ML CUP PO SCH ×4 (10:05→20:09)
[2017-01-27] MEDS: PANTOPRAZOLE SODIUM 40 MG VIAL IV PUSH SCH ×2 (10:05→20:09)
[2017-01-27] MEDS: Hickman Catheter Daily NS Lock Flush IV FLUSH SCH (10:12)
--- NOTE | 2017-01-27 11:02 | PD.ONC.PN ---
Subjective Subjective Remarks Afebrile overnight. Patient resting in bed in nad. States pain is controlled with Oxycodone/Dilaudid. No complaints. Denies further chest pain/dyspnea with exertion. Objective Data Date Time Temp Pulse Resp B/P (MAP) Pulse Ox O2 Delivery O2 Flow Rate FiO2 01/27/17 09:49 98 21 01/27/17 04:00 98.1 99 18 115/58 (77) 95 01/27/17 04:00 92 01/27/17 00:52 92 01/27/17 00:00 97.6 99 17 128/59 (82) 97 01/26/17 20:00 114 01/26/17 20:00 96.7 103 20 140/63 (88) 98 01/26/17 18:39 16 01/26/17 17:04 86 01/26/17 16:26 20 01/26/17 16:01 95 21 01/26/17 16:00 97.2 92 18 92/54 (67) 96 01/26/17 13:50 114 01/26/17 12:42 18 01/26/17 12:00 98.3 107 20 111/52 (71) 100 01/26/17 11:00 100 2.00 01/27/17 01/27/17 01/27/17 06:59 14:59 22:59 Intake Total 480 ml Output Total 400 ml Balance 80 ml Result Diagram: 01/27/17 0443 01/27/17 044 Laboratory Results Laboratory Tests Test 01/26/17 11:04 01/27/17 04:43 Troponin I LESS THAN 0.02 NG/ML White Blood Count 6.3 TH/MM3 Red Blood Count 2.81 MIL/MM3 Hemoglobin 8.3 GM/DL Hematocrit 24.3 % Mean Corpuscular Volume 86.3 FL Mean Corpuscular Hemoglobin 29.6 PG Mean Corpuscular Hemoglobin Concent 34.3 % Red Cell Distribution Width 14.3 % Platelet Count 566 TH/MM3 Mean Platelet Volume 7.2 FL Neutrophils (%) (Auto) 57.7 % Lymphocytes (%) (Auto) 23.6 % Monocytes (%) (Auto) 16.3 % Eosinophils (%) (Auto) 0.0 % Basophils (%) (Auto) 2.4 % Neutrophils # (Auto) 3.6 TH/MM3 Lymphocytes # (Auto) 1.5 TH/MM3 Monocytes # (Auto) 1.0 TH/MM3 Eosinophils # (Auto) 0.0 TH/MM3 Basophils # (Auto) 0.2 TH/MM3 CBC Comment AUTO DIFF Differential Total Cells Counted 100 Neutrophils % (Manual) 43 % Band Neutrophils % 7 % Lymphocytes % 30 % Monocytes % 14 % Basophils % 1 % Neutrophils # (Manual) 3.4 TH/MM3 Myelocytes 4 % Nucleated Red Blood Cells 1 /100 WBC Differential Comment FINAL DIFF MANUAL Blastocytes 1 % Platelet Estimate HIGH Platelet Morphology Comment NORMAL Blood Urea Nitrogen 11 MG/DL Creatinine 0.97 MG/DL Random Glucose 95 MG/DL Calcium Level 8.7 MG/DL Sodium Level 137 MEQ/L Potassium Level 3.8 MEQ/L Chloride Level 99 MEQ/L Carbon Dioxide Level 33.0 MEQ/L Anion Gap 5 MEQ/L Estimat Glomerular Filtration Rate 95 ML/MIN Administered Medications Medications (Trade) Dose Ordered Sig/Emma Route PRN Reason Start Time Stop Time Status Last Admin Dose Admin Sodium Chloride (NS Flush) 2 ml UNSCH PRN IV FLUSH FLUSH AFTER USING IV ACCESS 12/25/16 23:00 12/30/16 04:59 Sodium Chloride (NS Flush) 2 ml BID IV FLUSH 12/26/16 09:00 01/26/17 21:07 Acetaminophen (Tylenol) 650 mg Q6H PRN PO FEVER>100.4 12/25/16 23:00 01/26/17 14:55 Mupirocin (Bactroban 2% Oint) 1 applic TID TOPICAL 12/27/16 14:15 01/22/17 09:18 Sodium Chloride (NS Flush) 5 ml DAILY IV FLUSH 12/30/16 09:00 01/27/17 10:12 Heparin Sodium (Porcine) (Heparin Central Flush) 500 units DAILY IV FLUSH 12/30/16 09:00 01/27/17 10:05 Heparin Sodium (Porcine) (Heparin Central Flush) 500 units UNSCH PRN IV FLUSH SEE PROTOCOL TABLE 12/30/16 06:30 12/31/16 15:45 Allopurinol (Zyloprim) 200 mg DAILY PO 01/06/17 09:00 01/27/17 10:04 Sucralfate (Carafate Liq) 1 gm ACHS PO 01/09/17 16:00 01/27/17 10:05 Ondansetron HCl (Zofran Inj) 8 mg Q8H PRN IV PUSH NAUSEA 01/11/17 17:15 Future hold 01/26/17 12:32 Pantoprazole Sodium (Protonix Inj) 40 mg Q12HR IV PUSH 01/23/17 11:00 01/27/17 10:05 Alteplase, Recombinant (Cathflo Activase Inj) 2 mg Q2H PRN INTRACATH clotted catheter 01/24/17 08:45 01/24/17 09:46 Docusate Sodium (Colace) 100 mg TID PO 01/25/17 18:00 01/27/17 10:04 Oxycodone HCl (Roxicodone) 5 mg Q4H PRN PO PAIN SCALE 1 TO 5 01/26/17 16:15 01/27/17 04:40 Oxycodone HCl (Roxicodone) 10 mg Q4H PRN PO PAIN 6-10 01/27/17 07:45 01/27/17 10:07 Objective Remarks GENERAL: Young man, sitting up in bed in nad. SKIN: Warm and dry. HEAD: Normocephalic. EYES: No scleral icterus. No injection or drainage. NECK: Supple, trachea midline. CARDIOVASCULAR: Regular rate and rhythm RESPIRATORY: Breath sounds equal bilaterally. No accessory muscle use. GASTROINTESTINAL: Abdomen soft, non-tender, nondistended. EXTREMITIES: No cyanosis NEUROLOGICAL: awake and alert, normal speech. moving all extremities. 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 3am. Transfuse 1 unit irr. platelets, 1 unit irr. PRBC's. 01/08: D9. abdominal pain persistent. 2 units pRBC 01/09: D10. 2 additional units pRBC ordered. 1 unit platelets ordered 9/3: D11. 2 units pRBC. 1 unit platelets. + stool hemoccult 01/12: D13: 2 units pRBC. 1 unit platelets. 01/13: D14: 1 unit platelets. BB working to obtain HLA matched platelets 01/14: D15. 2 units HLA matched platelets given. spoke with BB they will have two units HLA matched on hand at all times. EGD today. 01/15: D16: 1 unit platelets, 1 unit pRBC. swelling in neck and face, ?SVC syndrome. CT chest and CT neck ordered 01/16: D 17: 1 unit platelets, [address] chest and neck negative for SVC syndrome. Continue to monitor blood counts. 01/17 D18: Labs pending. Start Amicar 1gm Q6h for overnight coughing up trav blood. Will transfuse for platelets less than 10k and Hgb less than 7.0. 01/18 D19: WBC 1.0, still thrombocytopenic, no bleeding from IV site or gums. Continue plans for platelet transfusion support. Afebrile. 01/19 D20: Patient received therapeutic transfusions 01/20: D21: No transfusion today. No further hematemesis. 01/21: D22: Transfuse 1 unit PRBC's today. Platelets appear to be recovering. 01/22: D23. repeat BMB today. d/c SULF[employer] OPERATOR. encourage patient to start mobilizing more. 01/23: D24. encourage oral intake and mobilization. was OOB for several hours 01/24: D25. pain improving. oral intake improving. 01/25: D26. wean pain medication 01/26: D27. await pathology from BMB 01/27: D28. pathology pending. 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 Patients with rearrangement of CBFB in AML may have a higher risk of PODIATRY ASSISTANT involvement at diagnosis or at relapse than patients with other types of AML. Inversion 16 or t(16;16), with or without additional chromosome abnormalities, has been associated with complete remission and improved long-term survival. - MUGA scan shows normal EF and no wall motion abnormalities 12/30/2016 - Port placement by IR completed 12/31/16 - Induction chemotherapy started 12/31-- 7+3 regimen with Daunorubicin 90mg/m2 and Cytaribine 100mg/m2-- Dosing capped at BSA of 2 - CMV negative, HIV and Hep B and C negative (2) Abdominal pain ICD Codes: R10.9 - Unspecified abdominal pain Plan: -- Epigastric area pain--EGD, 01/14 showed thrush and distal esophageal ulcer as well as severe gastritis. -- Amylase, lipase WNL -- CT abdomen/ pelvis shows splenic infarcts; --CTA abdomen shows no mesenteric emboli --Abdominal U/S: shows no acute findings. enlarged liver and spleen. --GI following --on Protonix, Carafate, Diflucan +stool hemoccult (3) Sinus tachycardia ICD Codes: R00.0 - Tachycardia, unspecified Plan: --CTA negative for PE --will obtain repeat MUGA scan Assessment 1. await pathology 2. monitor CBC Attending Statement The exam, history, and the medical decision-making described in the above note were completed with the assistance of the mid-level provider. I reviewed and agree with the findings presented. I attest that I had a [id number] encounter with the patient on the same day, and personally performed and documented my assessment and findings in the medical record MUGA scan normal peripheral smear reviewed 1-2 blast cells per HPF--concerning for residual disease Bone marrow biopsy reported as no evidence of aml I will discusses the case with an outside pathologist at a tertiary care center as a second opinion--for second review of biopsy We may be able to discharge patient home soon. If there is a consensus for residual disease then he will need re-induction Counts stable anemia noted no blood products today. 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
[2017-01-27] MEDS: HYDROmorphone HCL PF 1 MG/ML VIAL IV PUSH PRN ×3 (11:48→22:14)
--- NOTE | 2017-01-27 11:59 | RADRPT ---
EXAM DATE/TIME: 01/27/2017 00:00 [place] COMPARISON: GATED BLOOD POOL SCAN - REST, December 30, 2016, 13:16. INDICATIONS : Acute myeloid leukemia.Episode of sinus tachycardia. DOSE: 21.5 mCi Tc99m Ultratag labeled red blood cells IV PROJECTIONS: JORDANIAN and LPO EF: 52.4% MEDICAL HISTORY : None Acute myeloid leukemia. SURGICAL HISTORY : None. ENCOUNTER: Initial ACUITY: 1 month PAIN SCALE: 2/10 LOCATION: Bilateral chest TECHNIQUE: Following the modified in [place] labeling of autologous red blood cells and reinjection, planar image s gated to the ECG cycle were obtained in specified projections. Fourier analysis and calculation of ejection fraction were performed. FINDINGS: CHAMBER-SIZE: There is normal size and configuration to the left ventricle, right ventricle, and atria. WALL MOTION: No wall motion abnormalities seen. No segmental hypokinesia is observed. MISCELLANEOUS: No abnormal accumulation of red cells is seen. CONCLUSION: EF 52%. Richy Bonner MD FACR on January 27, 2017 at 11:57 Board Certified Radiologist. This report was verified electronically.
[2017-01-28] VITALS (7 sets, daily range): BP systolic 111–139; BP diastolic 52–72; PULSE 89–103; RESP 17–20; TEMP 96.7–97.9; O2SAT 95–99
[2017-01-28] MEDS: HYDROmorphone HCL PF 1 MG/ML VIAL IV PUSH PRN ×4 (03:20→20:17)
[2017-01-28 06:54] LABS: HEMATOCRIT 25.5 % (39.0-51.0); MEAN CELL VOLUME 86.5 FL (80.0-100.0); MEAN CORPUSCULAR HEMOGLOBIN 30.3 PG (27.0-34.0); PLATELET COUNT 596 TH/MM3 (150-450); RED BLOOD COUNT 2.95 MIL/MM3 (4.50-5.90); RED CELL DISTRIBUTION WIDTH 14.1 % (11.6-17.2); WHITE BLOOD COUNT 6.9 TH/MM3 (4.0-11.0)
[2017-01-28 07:03] LABS: HEMO FLAGS AUTO DIFF
--- NOTE | 2017-01-28 07:57 | HHI.PR ---
Subjective Remarks resting comfortably with no distress. has mild abdominal pain. no nausea/ vomiting. afebrile. no other complaints. Objective Vitals Vital Signs Date Time Temp Pulse Resp B/P (MAP) Pulse Ox O2 Delivery O2 Flow Rate FiO2 01/28/17 04:00 97.9 95 17 139/72 (94) 97 01/28/17 03:50 18 01/28/17 03:20 16 01/28/17 00:00 97.7 97 17 121/58 (79) 97 01/27/17 20:00 98.7 105 17 104/62 (76) 96 01/27/17 16:00 97.4 96 14 106/53 (70) 98 01/27/17 12:00 96.8 89 14 111/51 (71) 98 01/27/17 09:49 98 21 I/O 01/27/17 01/27/17 01/27/17 01/28/17 01/28/17 01/28/17 07:00 15:00 23:00 07:00 15:00 23:00 Intake Total 480 ml 600 ml Output Total 400 ml 1900 ml Balance 80 ml -1300 ml Intake Oral 480 ml 600 ml Output Urine Total 400 ml 1900 ml # Bowel Movements 0 Result Diagram: 01/28/17 0606 01/27/17 0443 Imaging Last Impressions Gated Heart Nuclear Medicine 01/27/17 0000 Signed Impressions: Service Date/Time: Friday, January 27, 2017 00:00 - CONCLUSION: EF 52%%. Richy Bonner MD FACR CT Angiography 01/26/17 0000 Signed Impressions: Service Date/Time: Thursday, January 26, 2017 13:53 - CONCLUSION: 1. No pulmonary embolus identified. 2. There are some small, nonspecific nodes in the right paratracheal region. There is a small node in the subcarinal anaya chain as well. Nilson Bonner MD Bone Biopsy CT 01/22/17 0000 Signed Impressions: Service Date/Time: Sunday, January 22, 2017 13:16 - CONCLUSION: 1. Uncomplicated CT guided bone marrow aspirate. 2. Uncomplicated CT guided bone marrow biopsy. Garcia Tello MD Upper Extremity Ultrasound 01/19/17 0000 Signed Impressions: Service Date/Time: Thursday, January 19, 2017 08:07 - CONCLUSION: Negative for DVT . Richy Bonner MD FACR Neck CT 01/15/17 0806 Signed Impressions: Service Date/Time: Sunday, January 15, 2017 09:54 - CONCLUSION: Mild sinusitis within the maxillary sinuses, slight scarring right apex of the lung. Patricia Contreras MD Chest CT 01/15/17 0806 Signed Impressions: Service Date/Time: Sunday, January 15, 2017 09:58 - CONCLUSION: Left lung infiltrate has resolved and there is improvement in right lung infiltrates with residual infiltrate remaining. Patricia Contreras MD Abdomen X-Ray 01/13/17 1451 Signed Impressions: Service Date/Time: Friday, January 13, 2017 15:41 - CONCLUSION: Moderate gaseous distention of large and small bowel with appearance most suggestive of ileus Audie Gomez MD Abdomen MRI 01/12/17 0000 Signed Impressions: Service Date/Time: Thursday, January 12, 2017 09:47 - CONCLUSION: No evidence of acute abdominal process. Splenic hemangiomas Humza Decker MD Lower Extremity Ultrasound 01/10/17 0000 Signed Impressions: Service Date/Time: Tuesday, January 10, 2017 21:50 - CONCLUSION: Negative exam with no evidence of deep venous thrombosis. Jose Nicholson MD Hepatobiliary Scan Nuclear Medicine 01/09/17 0000 Signed Impressions: Service Date/Time: Monday, January 09, 2017 10:01 - CONCLUSION: 1. The patient refused imaging beyond 45 minutes. There is activity seen within small bowel and gallbladder with no evidence for cystic duct obstruction. Danie Kelly MD Abdomen/Pelvis CT 01/08/17 0000 Signed Impressions: Service Date/Time: Sunday, January 08, 2017 14:43 - CONCLUSION: 1. No evidence of mesenteric artery stenosis 2. Small amount of free fluid is present in the pelvis Humza Decker MD Abdomen Ultrasound 01/07/17 0000 Signed Impressions: Service Date/Time: December 01:11 - CONCLUSION: 1. No acute findings. Liver enlarged. Spleen mildly prominent at 14 cm. Leander Fiore MD Chest X-Ray 01/03/17 0600 Signed Impressions: Service Date/Time: Tuesday, January 03, 2017 04:42 - CONCLUSION: Normal examination. Right IJ [id number] catheter in excellent position. Lungs are clear. Enrique Ramos MD Port Line Insertion 12/31/16 0000 Signed Impressions: Service Date/Time: December 15:15 - CONCLUSION: Uncomplicated ultrasound and fluoroscopic guided implanted central venous port catheter placement as described in detail above. An 8 [employer] port was placed. Nilson Bonner MD Brain MRI 12/27/16 0000 Signed Impressions: Service Date/Time: Tuesday, December 27, 2016 21:58 - CONCLUSION: Unremarkable study. Patricia Contreras MD Lumbar Puncture Fluoroscopy 12/26/16 0000 Signed Impressions: Service Date/Time: Monday, December 26, 2016 17:03 - CONCLUSION: Uncomplicated fluoroscopically guided lumbar puncture with pressures as above. Nilson Bonner MD Head CT 12/25/16 194 Signed Impressions: Service Date/Time: Sunday, December 25, 2016 19:50 - CONCLUSION: Negative noncontrast head CT. Audie Maria MD Objective Remarks GENERAL: This is a well-nourished, well-developed patient, in no apparent distress. CARDIOVASCULAR: Regular rate and regular rhythm without murmurs, gallops, or rubs. RESPIRATORY: Clear to auscultation. Breath sounds equal bilaterally. No wheezes , rales, or rhonchi. GASTROINTESTINAL: Abdomen soft, non-tender, nondistended. Normal, active bowel sounds MUSCULOSKELETAL: Extremities without clubbing, cyanosis, or edema. NEURO: Alert & Oriented x4 to person, place, time, situation. Moves all ext x4 Procedures 12/31 Kvezav-t-Lqtl placement bone marrow biopsy Medications and IVs Current Medications Acetaminophen (Tylenol) 650 mg ONCE ONCE PO Last administered on 12/25/16 20: 28; Start 12/25/16 at 19:45; Stop 12/25/16 at 19:46; Status DC Sodium Chloride 1,000 ml @ 1,000 mls/hr Q1H ONCE IV Last administered on 20:27; Start 12/25/16 at 19:41; Stop 12/25/16 at 20:40; Status DC Sodium Chloride 1,000 ml @ 1,000 mls/hr Q1H ONCE IV Last administered on 20:41; Start 12/25/16 at 19:41; Stop 12/25/16 at 20:40; Status DC Sodium Chloride 1,000 ml @ 1,000 mls/hr Q1H ONCE IV Last administered on 21:09; Start 12/25/16 at 19:41; Stop 12/25/16 at 20:40; Status DC Sodium Chloride 900 ml @ 1,000 mls/hr Q54M ONCE IV Last administered on 21:46; Start 12/25/16 at 19:41; Stop 12/25/16 at 20:34; Status DC Prochlorperazine Edisylate (Compazine Inj) 10 mg ONCE ONCE IV PUSH Last administered on 12/25/16 20:28; Start 12/25/16 at 19:45; Stop 12/25/16 at 19:46 ; Status DC Diphenhydramine HCl (Benadryl Inj) 25 mg ONCE ONCE IV PUSH Last administered on 12/25/16 20:27; Start 12/25/16 at 19:45; Stop 12/25/16 at 19:46; Status DC Cefepime HCl 2000 mg/Sodium Chloride 100 ml @ 200 mls/hr ONCE STAT IV Last administered on 12/25/16 21:46; Start 12/25/16 at 21:13; Stop 12/25/16 at 21:42 ; Status DC Pharmacy Profile Note 0 ml @ 0 mls/hr UNSCH OTHER ; Start 12/25/16 at 23:00; Stop 12/30/16 at 20:00; Status DC Cefepime HCl 1000 mg/Sodium Chloride 100 ml @ 200 mls/hr Q12H IV Last administered on 12/28/16 08:18; Start 12/26/16 at 09:00; Stop 12/28/16 at 19:05 ; Status DC Sodium Chloride 1,000 ml @ 100 mls/hr Q10H IV Last administered on 12/27/16 17:17; Start 12/25/16 at 23:00; Stop 12/28/16 at 09:00; Status DC Sodium Chloride (NS Flush) 2 ml UNSCH PRN IV FLUSH FLUSH AFTER USING IV ACCESS Last administered on 12/30/16 04:59; Start 12/25/16 at 23:00 Sodium Chloride (NS Flush) 2 ml BID IV FLUSH Last administered on 01/27/17 20: 09; Start 12/26/16 at 09:00 Ondansetron HCl (Zofran Inj) 4 mg Q6H PRN IVP NAUSEA OR VOMITING Last administered on 01/05/17 15:10; Start 12/25/16 at 23:00; Stop 01/06/17 at 15:54 ; Status DC Acetaminophen (Tylenol) 650 mg Q6H PRN PO FEVER>100.4 Last administered on 01/26 14:55; Start 12/25/16 at 23:00 Acetaminophen/ Hydrocodone Bitart (Blue Grass 5-325 Mg) 1 tab Q4H PRN PO PAIN SCALE 3 TO 5 Last administered on 12/27/16 12:05; Start 12/25/16 at 23:00; Stop 12/27/16 at 13:56; Status DC Morphine Sulfate (Morphine Inj) 2 mg Q3H PRN IV Pain 6-10 Last administered on 01/06/17 22:09; Start 12/25/16 at 23:00; Stop 01/06/17 at 23:13; Status DC Senna/Docusate Sodium (Rika-Colace) 1 tab BID PO Last administered on 01/08/17 08:12; Start 12/26/16 at 09:00; Stop 01/09/17 at 12:59; Status DC Magnesium Hydroxide (Milk Of Magnesia Liq) 30 ml Q12H PRN PO MILD - MODERATE CONSTIPATION; Start 12/25/16 at 23:00 Sennosides (Senokot) 17.2 mg Q12H PRN PO MODERATE - SEVERE CONSTIPATION; Start 12/25/16 at 23:00; Stop 01/25/17 at 14:44; Status DC Bisacodyl (Dulcolax Supp) 10 mg DAILY PRN RECTAL SEVERE CONSITIPATION; Start at 23:00; Stop 01/25/17 at 14:44; Status DC Lactulose (Lactulose Liq) 30 ml DAILY PRN PO SEVERE CONSITIPATION; Start at 23:00; Stop 01/25/17 at 14:44; Status DC Vancomycin HCl 2500 mg/Sodium Chloride 525 ml @ 250 mls/hr Q12H IV Last administered on 12/26/16 00:27; Start 12/26/16 at 01:00; Stop 12/26/16 at 04:00 ; Status DC Guaifenesin/ Dextromethorphan (Robitussin Dm 200-20 Mg/10 ml Liq) 10 ml Q4H PRN PO cough Last administered on 12/26/16 18:19; Start 12/26/16 at 01:45; Stop 12/26/16 at 19:43; Status DC Benzonatate (Tessalon) 100 mg Q4H PRN PO COUGH Last administered on 12/26/16 15:12; Start 12/26/16 at 05:15; Stop 01/25/17 at 14:44; Status DC Vancomycin HCl 2000 mg/Sodium Chloride 520 ml @ 260 mls/hr Q12H IV Last administered on 12/27/16 17:16; Start 12/26/16 at 13:00; Stop 12/27/16 at 18:13 ; Status DC Miscellaneous Information SPECIFIC LAB TO BE JASKARAN... ONCE ONCE .XX Last administered on 12/27/16 17:05; Start 12/27/16 at 12:45; Stop 12/27/16 at 12:46 ; Status DC Sodium Bicarbonate 50 ml @ As Directed STK-MED ONCE .ROUTE Last administered on 12/26/16 16:54; Start 12/26/16 at 16:54; Stop 12/26/16 at 16:55; Status DC Iohexol (Omnipaque 350 Inj) 71 ml STK-MED ONCE IV Last administered on 17:47; Start 12/26/16 at 17:47; Stop 12/26/16 at 17:48; Status DC Albuterol/ Ipratropium (Duoneb Neb) 1 ampule Q6HR WHILE AWAKE NEB NEB Last administered on 12/30/16 09:15; Start 12/26/16 at 20:00; Stop 12/30/16 at 20:00 ; Status DC Guaifenesin/ Codeine Phosphate (Robitussin Ac 200-20 Mg/10 ml Liq) 10 ml Q4H PRN PO codine; Start 12/26/16 at 19:45; Stop 12/29/16 at 11:01; Status DC Promethazine HCl/ Codeine (Phenergan-Codeine Liq) 5 ml Q4H PRN PO COUGH Last administered on 12/31/16 17:09; Start 12/26/16 at 20:00; Stop 01/12/17 at 11:12 ; Status DC Sodium Chloride 250 ml @ 15 mls/hr ONCE ONCE IV Last administered on 23:23; Start 12/26/16 at 23:15; Stop 12/27/16 at 15:54; Status DC Acetaminophen (Tylenol) 650 mg Q4H PRN PO SEE LABEL COMMENTS; Start 12/26/16 at 23:15; Stop 12/27/16 at 03:16; Status DC Diphenhydramine HCl (Benadryl) 25 mg Q4H PRN PO SEE LABEL COMMENTS; Start 12/26 at 23:15; Stop 12/27/16 at 03:16; Status DC Calcium Gluconate 1 gm/Dextrose 110 ml @ 110 mls/hr ONCE ONCE IV Last administered on 12/26/16 23:56; Start 12/26/16 at 23:30; Stop 12/27/16 at 00:29 ; Status DC Diphenhydramine HCl (Benadryl) 25 mg Q4H PRN PO SEE LABEL COMMENTS Last administered on 01/16/17 02:23; Start 12/27/16 at 04:15; Stop 01/16/17 at 13:01; Status DC Acetaminophen (Tylenol) 650 mg Q4H PRN PO SEE LABEL COMMENTS Last administered on 01/15/17 13:52; Start 12/27/16 at 04:15; Stop 01/16/17 at 13:01; Status DC Mupirocin (Bactroban 2% Oint) 1 applic TID TOPICAL Last administered on 09:18; Start 12/27/16 at 14:15 Dexamethasone (Decadron) 4 mg Q12HR PO ; Start 12/27/16 at 21:00; Stop 12/27/16 at 21:00; Status DC Dexamethasone (Decadron) 4 mg ONCE ONCE PO Last administered on 12/27/16 14: 30; Start 12/27/16 at 14:00; Stop 12/27/16 at 14:01; Status DC Oxycodone HCl (Roxicodone) 5 mg Q6H PRN PO PAIN 1-10 Last administered on 21:56; Start 12/27/16 at 14:00; Stop 01/06/17 at 18:54; Status DC Lisinopril (Prinivil) 10 mg DAILY PO ; Start 12/28/16 at 15:00; Stop 12/28/16 at 15:00; Status DC Clonidine (Catapres) 0.2 mg Q6H PRN PO SBP > 160; Start 12/27/16 at 14:15; Stop 12/27/16 at 14:15; Status DC Diatrizoate Meglum/ Diatrizoate Sod ( Gastroview Liq) 18 ml ONCE ONCE PO Last administered on 12/27/16 17:16; Start 12/27/16 at 16:45; Stop 12/27/16 at 16:46; Status DC Albuterol Sulfate (Albuterol Concentrated Neb) 2.5 mg [employer] OPERATOR NEB ; Start 12/27 at 16:45; Stop 12/31/16 at 16:44; Status DC Lidocaine HCl (Lidocaine Pf 4% Neb) 3 ml [employer] OPERATOR NEB ; Start 12/27/16 at 16:45 ; Stop 12/31/16 at 16:44; Status DC Vancomycin HCl 2000 mg/Sodium Chloride 520 ml @ 260 mls/hr Q12H IV Last administered on 12/29/16 02:15; Start 12/28/16 at 05:00; Stop 12/29/16 at 03:00 ; Status DC Miscellaneous Information SPECIFIC LAB TO BE DRAWN:VANCOMY... ONCE ONCE .XX ; Start 12/29/16 at 04:45; Stop 12/29/16 at 04:46; Status DC Sodium Chloride 250 ml @ 15 mls/hr ONCE ONCE IV ; Start 12/27/16 at 18:30; Stop 12/27/16 at 18:38; Status DC Sodium Chloride 250 ml @ 15 mls/hr ONCE ONCE IV ; Start 12/27/16 at 18:45; Stop 12/28/16 at 11:24; Status DC Gadodiamide (Omniscan Pf Inj) 30 ml STK-MED ONCE IVCONTRAST Last administered on 12/27/16 22:10; Start 12/27/16 at 22:10; Stop 12/27/16 at 22:11; Status DC Iohexol (Omnipaque 350 Inj) 95 ml STK-MED ONCE IVCONTRAST Last administered on 12/27/16 23:00; Start 12/27/16 at 23:00; Stop 12/27/16 at 23:03; Status DC Lactated Ringer's 1,000 ml @ 30 mls/hr Q24H PRN IV SEE LABEL COMMENTS; Start at 06:15; Stop 12/31/16 at 06:14; Status DC Sodium Chloride 500 ml @ 30 mls/hr [id number] PRN IV SEE LABEL COMMENTS; Start at 06:15; Stop 12/31/16 at 06:14; Status DC Povidone Iodine (Betadine 5% Antisepsis Kit) 1 applic [employer] OPERATOR PRN EACH NARE SEE LABEL COMMENTS; Start 12/28/16 at 06:15; Stop 12/31/16 at 06:14; Status DC Chlorhexidine Gluconate (Chlorhexidine 2% Cloth) 3 pack [employer] OPERATOR PRN TOPICAL SEE LABEL COMMENTS; Start 12/28/16 at 06:15; Stop 12/31/16 at 06:14; Status DC Insulin Human Regular (NovoLIN R INJ) See Protocol Table ... [employer] OPERATOR PRN SQ SEE PROTOCOL TABLE; Start 12/28/16 at 06:15; Stop 12/31/16 at 06:14; Status DC Dextrose 1,000 ml @ 84 mls/hr [id number] IV Last administered on 01/01/17 22:03 ; Start 12/28/16 at 09:00; Stop 01/02/17 at 12:34; Status DC Calcium Carbonate (Tums Chew) 500 mg Q6H PRN CHEW DYSPEPSIA OR HEARTBURN; Start 12/28/16 at 14:00; Stop 01/23/17 at 13:13; Status DC Pantoprazole Sodium (Protonix) 20 mg DAILY PO Last administered on 01/08/17 08: 13; Start 12/29/16 at 09:00; Stop 01/08/17 at 17:45; Status DC Famotidine (Pepcid Inj) 20 mg ONCE ONCE IV PUSH Last administered on 14:27; Start 12/28/16 at 14:20; Stop 12/28/16 at 14:21; Status DC Lidocaine HCl (Xylocaine 1% Inj) 20 ml STK-MED ONCE .ROUTE Last administered on 12/28/16 14:49; Start 12/28/16 at 14:49; Stop 12/28/16 at 14:50; Status DC Sodium Chloride (Sodium Chloride 0.9% Inj) 40 ml STK-MED ONCE .ROUTE ; Start at 15:54; Stop 12/28/16 at 15:55; Status DC Lidocaine HCl (Xylocaine 2% Inj) 50 ml STK-MED ONCE .ROUTE ; Start 12/28/16 at 15:55; Stop 12/28/16 at 15:56; Status DC Lidocaine HCl (Xylocaine 2% Viscous) 15 ml STK-MED ONCE .ROUTE ; Start 12/28/16 at 15:55; Stop 12/28/16 at 15:56; Status DC Lidocaine HCl (Xylocaine-Mpf 4% Inj) 5 ml STK-MED ONCE .ROUTE ; Start 12/28/16 at 15:55; Stop 12/28/16 at 15:56; Status DC Epinephrine HCl (Adrenalin (1:1000) Inj) 2 mg STK-MED ONCE .ROUTE ; Start at 15:55; Stop 12/28/16 at 15:56; Status DC Fentanyl Citrate (fentaNYL INJ) 250 mcg STK-MED ONCE .ROUTE Last administered on 12/28/16 16:38; Start 12/28/16 at 16:38; Stop 12/28/16 at 16:39; Status DC Midazolam HCl (Versed Inj) 4 mg STK-MED ONCE .ROUTE Last administered on 16:38; Start 12/28/16 at 16:38; Stop 12/28/16 at 16:39; Status DC Sugammadex Sodium (Bridion Inj) 400 mg STK-MED ONCE IV PUSH ; Start 12/28/16 at 17:30; Stop 12/28/16 at 17:31; Status DC Albuterol Sulfate (Albuterol Neb) 2.5 mg UNSCH X1 PRN NEB SHORTNESS OF BREATH; Start 12/28/16 at 18:15; Stop 12/29/16 at 18:14; Status DC Albuterol Sulfate (*ALBUTEROL NEB PERIprocedure ONLY) 2.5 mg STK-MED ONCE NEB Last administered on 12/28/16 18:20; Start 12/28/16 at 18:20; Stop 12/28/16 at 18:21; Status DC Fentanyl Citrate (fentaNYL INJ) 100 mcg STK-MED ONCE .ROUTE ; Start 12/28/16 at 18:27; Stop 12/28/16 at 18:28; Status DC Miscellaneous Information ALL NURSING DEPARTME... UNSCH PRN .XX SEE LABEL COMMENTS; Start 12/28/16 at 18:45; Stop 12/29/16 at 18:44; Status DC Lorazepam (Ativan Inj) 2 mg STK-MED ONCE .ROUTE ; Start 12/28/16 at 18:35; Stop 12/28/16 at 18:36; Status DC Cefepime HCl 2000 mg/Sodium Chloride 100 ml @ 200 mls/hr Q12H IV Last administered on 12/29/16 09:08; Start 12/28/16 at 21:00; Stop 12/29/16 at 22:34 ; Status DC Fluconazole/ Sodium Chloride 200 ml @ 100 mls/hr Q24H IV Last administered on 01/04/17 21:49; Start 12/28/16 at 22:00; Stop 01/05/17 at 17:06; Status DC Azithromycin 500 mg/Sodium Chloride 250 ml @ 250 mls/hr Q24H IV Last administered on 01/03/17 21:17; Start 12/28/16 at 20:00; Stop 01/04/17 at 14:48 ; Status DC Fentanyl Citrate (fentaNYL INJ) 100 mcg STK-MED ONCE .ROUTE ; Start 12/28/16 at 19:47; Stop 12/28/16 at 19:48; Status DC Vancomycin HCl 2000 mg/Sodium Chloride 520 ml @ 260 mls/hr Q12H IV Last administered on 12/30/16 16:14; Start 12/29/16 at 14:00; Stop 12/30/16 at 20:00 ; Status DC Miscellaneous Information SPECIFIC LAB TO BE DRAWN:VANCOMYCIN TROUGH DATE TO... ONCE ONCE .XX Last administered on 12/30/16 02:00; Start 12/30/16 at 01:45; Stop 12/30/16 at 01:46; Status DC Methylprednisolone Sodium Succinate (SoluMEDROL INJ) 40 mg ONCE ONCE IV PUSH Last administered on 12/29/16 22:08; Start 12/29/16 at 21:15; Stop 12/29/16 at 21:16; Status DC Methylprednisolone Sodium Succinate (SoluMEDROL INJ) 125 mg NOW ONCE IV ; Start 12/29/16 at 21:30; Stop 12/29/16 at 21:30; Status DC Allopurinol (Zyloprim) 200 mg BID PO Last administered on 01/05/17 21:47; Start 12/29/16 at 22:00; Stop 01/05/17 at 23:59; Status DC Cefepime HCl 2000 mg/Sodium Chloride 100 ml @ 200 mls/hr Q12H IV Last administered on 01/04/17 11:09; Start 12/29/16 at 23:00; Stop 01/04/17 at 14:48 ; Status DC Sodium Chloride (NS Flush) 5 ml DAILY IV FLUSH Last administered on 01/27/17 10:12; Start 12/30/16 at 09:00 Heparin Sodium (Porcine) (Heparin Central Flush) 500 units DAILY IV FLUSH Last administered on 01/27/17 10:05; Start 12/30/16 at 09:00 Sodium Chloride (NS Flush) 5 ml UNSCH PRN IV FLUSH SEE PROTOCOL TABLE; Start at 06:30 Heparin Sodium (Porcine) (Heparin Central Flush) 500 units UNSCH PRN IV FLUSH SEE PROTOCOL TABLE Last administered on 12/31/16 15:45; Start 12/30/16 at 06:30 Acetaminophen (Tylenol) 650 mg ONCE ONCE PO Last administered on 12/30/16 10: 38; Start 12/30/16 at 08:30; Stop 12/30/16 at 08:31; Status DC Diphenhydramine HCl (Benadryl) 25 mg ONCE ONCE PO Last administered on 10:37; Start 12/30/16 at 08:30; Stop 12/30/16 at 08:31; Status DC Methylprednisolone Sodium Succinate (SoluMEDROL INJ) 40 mg ONCE ONCE IV PUSH Last administered on 12/30/16 10:37; Start 12/30/16 at 10:00; Stop 12/30/16 at 10:04; Status DC Cefazolin Sodium/ Dextrose 50 ml @ 100 mls/hr [employer] OPERATOR IV ; Start 12/30/16 at 10:30; Stop 01/03/17 at 10:29; Status DC Methylprednisolone Sodium Succinate (SoluMEDROL INJ) 40 mg ONCE IM ; Start 12/31 at 07:00; Status UNV Granisetron HCl 1 mg/Dexamethasone Sodium Phosphate 20 mg/Sodium Chloride 56 ml @ 336 mls/hr Q24H IV Last administered on 01/07/17 04:14; Start 12/31/16 at 17:30; Stop 01/06/17 at 17:39; Status DC Midazolam HCl (Versed Inj) 4 mg STK-MED ONCE .ROUTE Last administered on 14:40; Start 12/31/16 at 14:40; Stop 12/31/16 at 14:41; Status DC Fentanyl Citrate (fentaNYL INJ) 250 mcg STK-MED ONCE .ROUTE Last administered on 12/31/16 14:40; Start 12/31/16 at 14:40; Stop 12/31/16 at 14:41; Status DC Cytarabine 200 mg/ Sodium Chloride 500 ml @ 20.833 mls/ hr Q24H IV Last administered on 01/07/17 06:27; Start 12/31/16 at 18:30; Stop 01/07/17 at 18:29 ; Status DC Daunorubicin HCl 180 mg/Sodium Chloride 136 ml @ 272 mls/hr Q24H IV Last administered on 01/03/17 01:51; Start 12/31/16 at 18:00; Stop 01/02/17 at 18:29 ; Status DC Lidocaine/ Epinephrine (Xylocaine-Epi Mpf 2%-1:200,000 Inj) 20 ml STK-MED ONCE .ROUTE Last administered on 12/31/16 15:19; Start 12/31/16 at 15:08; Stop at 15:09; Status DC Heparin Sodium (Porcine) (Heparin Central Flush) 500 units UNSCH IV FLUSH ; Start 12/31/16 at 15:45 Sodium Chloride (NS Flush) 5 ml UNSCH PRN IVF SEE PROTOCOL; Start 12/31/16 at 15:45 Heparin Sodium (Porcine) (Heparin Central Flush) 250 units UNSCH PRN IV FLUSH SEE PROTOCOL; Start 12/31/16 at 15:45 Methylprednisolone Sodium Succinate (SoluMEDROL INJ) 40 mg ONCE ONCE IV Last administered on 12/31/16 21:09; Start 12/31/16 at 17:00; Stop 12/31/16 at 17:01 ; Status DC Sodium Chloride 1,000 ml @ 42 mls/hr [id number] IV Last administered on 17:34; Start 01/02/17 at 12:45; Stop 01/08/17 at 11:33; Status DC Promethazine HCl (Phenergan) 25 mg Q4H PRN PO nausea or vomitting Last administered on 01/14/17 03:49; Start 01/04/17 at 10:15; Stop 01/14/17 at 16:35; Status DC Levofloxacin (Levaquin) 750 mg DAILY@1100 PO Last administered on 01/05/17 10: 54; Start 01/04/17 at 16:00; Stop 01/06/17 at 12:33; Status DC Calcium Chloride 1 gm/Dextrose 110 ml @ 110 mls/hr ONCE ONCE IV Last administered on 01/04/17 23:43; Start 01/04/17 at 23:00; Stop 01/04/17 at 23:59 ; Status DC Dicyclomine HCl (Bentyl) 20 mg TID PO Last administered on 01/10/17 09:52; Start 01/05/17 at 10:00; Stop 01/10/17 at 10:54; Status DC Sodium Chloride 500 ml @ 250 mls/hr Q2H ONCE IV Last administered on 14:07; Start 01/05/17 at 13:45; Stop 01/05/17 at 15:44; Status DC Ondansetron HCl (Zofran Inj) 4 mg Q8HR IV PUSH Last administered on 01/08/17 05 :22; Start 01/06/17 at 06:00; Stop 01/08/17 at 06:00; Status DC Allopurinol (Zyloprim) 200 mg DAILY PO Last administered on 01/27/17 10:04; Start 01/06/17 at 09:00 Calcium Chloride 1 gm/Sodium Chloride 110 ml @ 110 mls/hr ONCE ONCE IV Last administered on 01/06/17 09:35; Start 01/06/17 at 08:30; Stop 01/06/17 at 09:29 ; Status DC Hyoscyamine Sulfate (Levsin) 0.25 mg Q4H PRN PO CRAMPS Last administered on 10:06; Start 01/06/17 at 09:30; Stop 01/23/17 at 13:13; Status DC Morphine Sulfate (Morphine Inj) 2 mg NOW ONCE IV Last administered on 13:15; Start 01/06/17 at 13:15; Stop 01/06/17 at 13:16; Status DC Calcium Chloride 1 gm/Sodium Chloride 110 ml @ 110 mls/hr ONCE ONCE IV Last administered on 01/06/17 19:01; Start 01/06/17 at 15:00; Stop 01/06/17 at 15:59 ; Status DC Iohexol (Omnipaque 350 Inj) 81 ml STK-MED ONCE IVCONTRAST Last administered on 01/06/17 15:27; Start 01/06/17 at 15:27; Stop 01/06/17 at 15:28; Status DC Oxycodone HCl (Roxicodone) 5 mg ONCE ONCE PO ; Start 01/06/17 at 19:00; Stop at 19:01; Status Cancel Oxycodone HCl (Roxicodone) 5 mg Q6H PRN PO pain; Start 01/06/17 at 18:15; Stop 01/06/17 at 18:42; Status DC Hydromorphone HCl (Dilaudid Pf Inj) 0.5 mg ONCE ONCE IV Last administered on 19:00; Start 01/06/17 at 19:00; Stop 01/06/17 at 19:01; Status DC Oxycodone HCl (Roxicodone) 5 mg Q4H PRN PO PAIN 1-10 Last administered on 22:51; Start 01/06/17 at 19:00; Stop 01/09/17 at 12:32; Status DC Hydromorphone HCl (Dilaudid Pf Inj) 1 mg Q4H PRN IV PAIN SCALE 1 TO 10 Last administered on 01/08/17 02:12; Start 01/06/17 at 23:15; Stop 01/08/17 at 02:41; Status DC Sodium Chloride 1,000 ml @ 999 mls/hr BOLUS ONCE IV Last administered on 01/07 10:15; Start 01/07/17 at 10:00; Stop 01/07/17 at 11:00; Status DC Sodium Chloride 1,000 ml @ 75 mls/hr [id number] IV Last administered on 01/13/17 14:23; Start 01/07/17 at 14:00; Stop 01/13/17 at 14:51; Status DC Hydromorphone HCl (Dilaudid Pf Inj) 1 mg Q3H PRN IV PAIN SCALE 1 TO 10 Last administered on 01/08/17 08:12; Start 01/08/17 at 02:45; Stop 01/08/17 at 11:58; Status DC Hydromorphone HCl (Dilaudid Pf Inj) 1.5 mg ONCE ONCE IV PUSH Last administered on 01/08/17 11:44; Start 01/08/17 at 11:15; Stop 01/08/17 at 11:18; Status DC Sodium Chloride 250 ml @ 15 mls/hr ONCE ONCE IV Last administered on 16:30; Start 01/08/17 at 11:30; Stop 01/09/17 at 04:09; Status DC Acetaminophen (Tylenol) 650 mg Q4H PRN PO SEE LABEL COMMENTS; Start 01/08/17 at 11:30; Status Cancel Diphenhydramine HCl (Benadryl) 25 mg Q4H PRN PO SEE LABEL COMMENTS; Start at 11:30; Status Cancel Hydromorphone HCl (Dilaudid Pf Inj) 1.5 mg Q3H PRN IV PAIN SCALE 1 TO 10 Last administered on 01/09/17 11:17; Start 01/08/17 at 14:45; Stop 01/09/17 at 12:32; Status DC Iohexol (Omnipaque 350 Inj) 100 ml STK-MED ONCE IVCONTRAST Last administered on 01/08/17 14:41; Start 01/08/17 at 14:41; Stop 01/08/17 at 14:43; Status DC Pantoprazole Sodium (Protonix) 20 mg BID PO Last administered on 01/09/17 08:51 ; Start 01/08/17 at 21:00; Stop 01/09/17 at 13:51; Status DC Sodium Chloride 250 ml @ 15 mls/hr ONCE ONCE IV ; Start 01/09/17 at 08:15; Stop 01/10/17 at 00:54; Status DC Oxycodone HCl (Roxicodone) 10 mg ONCE ONCE PO Last administered on 01/09/17 09 :24; Start 01/09/17 at 09:00; Stop 01/09/17 at 09:17; Status DC Hydromorphone HCl (Dilaudid Pf Inj) 2 mg Q3H PRN IV PAIN SCALE 1 TO 10 Last administered on 01/11/17 13:34; Start 01/09/17 at 14:45; Stop 01/11/17 at 13:42; Status DC Hydromorphone HCl (Dilaudid Pf Inj) 2 mg ONCE ONCE IV PUSH Last administered on 01/09/17 13:16; Start 01/09/17 at 13:00; Stop 01/09/17 at 13:07; Status DC Pantoprazole Sodium (Protonix Inj) 40 mg Q12HR IV PUSH Last administered on 01/11 08:05; Start 01/09/17 at 14:00; Stop 01/11/17 at 15:02; Status DC Sucralfate (Carafate Liq) 1 gm ACHS PO Last administered on 01/27/17 20:09; Start 01/09/17 at 16:00 Piperacillin Sod/ Tazobactam Sod 100 ml @ 200 mls/hr Q8H IV Last administered on 01/13/17 15:51; Start 01/09/17 at 15:00; Stop 01/13/17 at 19:46; Status DC Sodium Chloride 250 ml @ 15 mls/hr ONCE ONCE IV Last administered on 10:20; Start 01/10/17 at 08:00; Stop 01/11/17 at 00:39; Status DC Oxycodone HCl (Roxicodone) 10 mg ONCE ONCE PO Last administered on 01/10/17 11 :12; Start 01/10/17 at 11:00; Stop 01/10/17 at 11:01; Status DC Lactobacillus Acidophilus (Lactinex) 1 tab TID PO Last administered on 12:57; Start 01/10/17 at 18:00; Stop 01/13/17 at 14:38; Status DC Oxycodone HCl (Roxicodone) 10 mg ONCE ONCE PO Last administered on 01/11/17 09 :32; Start 01/11/17 at 08:15; Stop 01/11/17 at 08:26; Status DC Hydromorphone HCl (Dilaudid Pf Inj) 2 mg Q2H PRN IV PAIN SCALE 1 TO 10 Last administered on 01/11/17 15:56; Start 01/11/17 at 13:45; Stop 01/12/17 at 08:06; Status DC Pantoprazole Sodium 80 mg/ Sodium Chloride 100 ml @ 10 mls/hr CONTINUOUS IV Last administered on 01/22/17 09:56; Start 01/11/17 at 16:00; Stop 01/23/17 at 09:58; Status DC Naloxone HCl (Narcan Inj) 0.4 mg UNSCH PRN IV RESPIRATORY RATE LESS THAN 10; Start 01/11/17 at 15:15; Stop 01/22/17 at 09:43; Status DC Hydromorphone HCl (Dilaudid PSYCH NP Inj) 6 mg UNSCH IV Last administered on 09:11; Start 01/11/17 at 15:15; Stop 01/22/17 at 09:43; Status DC PSYCH NP Dosage Infused (Pha) 1 Q8HR OTHER Last administered on 01/22/17 06:00; Start 01/11/17 at 15:45; Stop 01/22/17 at 09:43; Status DC Ondansetron HCl (Zofran Inj) 8 mg Q8H PRN IV PUSH NAUSEA Last administered on 12:32; Start 01/11/17 at 17:15; Status Future hold Hydromorphone HCl (Dilaudid Pf Inj) 1 mg ONCE ONCE IV PUSH Last administered on 01/12/17 02:37; Start 01/12/17 at 02:30; Stop 01/12/17 at 02:31; Status DC Propofol (Diprivan 200 Mg/20 ml Inj) 400 mg STK-MED ONCE IV ; Start 12/28/16 at 12:00; Stop 01/12/17 at 08:23; Status DC Sodium Chloride 250 ml @ 15 mls/hr ONCE ONCE IV Last administered on 10:00; Start 01/12/17 at 10:00; Stop 01/13/17 at 02:39; Status DC Hydromorphone HCl (Dilaudid Pf Inj) 2 mg STAT ONCE IV PUSH Last administered on 01/12/17 11:09; Start 01/12/17 at 11:00; Stop 01/12/17 at 11:01; Status DC Gadodiamide (Omniscan Pf Inj) 30 ml STK-MED ONCE IV PUSH Last administered on 10:51; Start 01/12/17 at 10:51; Stop 01/12/17 at 10:52; Status DC Hydromorphone HCl (Dilaudid Pf Inj) 2 mg Q4H PRN IV PUSH SEVERE BREAKTHROUGH PAIN Last administered on 01/25/17 05:11; Start 01/12/17 at 15:30; Stop at 09:49; Status DC Sodium Chloride 250 ml @ 15 mls/hr ONCE ONCE IV Last administered on 08:30; Start 01/13/17 at 08:30; Stop 01/14/17 at 01:09; Status DC Metronidazole 100 ml @ 100 mls/hr Q6H IV ; Start 01/13/17 at 11:15; Stop at 11:15; Status DC Ciprofloxacin/ Dextrose 200 ml @ 200 mls/hr Q12H IV ; Start 01/13/17 at 11:15; Stop 01/13/17 at 11:15; Status DC Potassium Chloride (KCl) 40 meq ONCE ONCE PO Last administered on 01/13/17 14: 23; Start 01/13/17 at 13:00; Stop 01/13/17 at 13:59; Status DC Potassium Chloride/Sodium Chloride 1,000 ml @ 100 mls/hr Q10H IV Last administered on 01/13/17 20:00; Start 01/13/17 at 15:00; Stop 01/15/17 at 13:26; Status DC Piperacillin Sod/ Tazobactam Sod 100 ml @ 200 mls/hr Q6H IV Last administered on 01/21/17 15:00; Start 01/13/17 at 21:00; Stop 01/21/17 at 19:56; Status DC Pharmacy Profile Note 0 ml @ 0 mls/hr UNSCH OTHER ; Start 01/13/17 at 19:45; Stop 01/21/17 at 19:56; Status DC Vancomycin HCl 2000 mg/Sodium Chloride 520 ml @ 250 mls/hr Q12H IV Last administered on 01/14/17 10:31; Start 01/13/17 at 21:00; Stop 01/14/17 at 12:26; Status DC Miscellaneous Information SPECIFIC LAB TO BE JASKARAN... ONCE ONCE .XX Last administered on 01/16/17 08:45; Start 01/16/17 at 08:45; Stop 01/16/17 at 08:46; Status DC Sodium Chloride 250 ml @ 15 mls/hr ONCE ONCE IV ; Start 01/14/17 at 08:45; Stop 01/15/17 at 01:24; Status DC Ketamine HCl (Ketalar Inj) 500 mg STK-MED ONCE .ROUTE ; Start 01/14/17 at 09:18; Stop 01/14/17 at 09:19; Status DC Propofol (Diprivan 200 Mg/20 ml Inj) 100 mg STK-MED ONCE IV PUSH ; Start at 09:30; Stop 01/14/17 at 10:03; Status DC Fluconazole/ Sodium Chloride 200 ml @ 100 mls/hr Q24H IV Last administered on 01/20/17 10:57; Start 01/14/17 at 12:00; Stop 01/20/17 at 19:49; Status DC Nystatin (Mycostatin Liq) 5 ml QID SWISH-SWAL Last administered on 01/23/17 08:50; Start 01/14/17 at 13:00; Stop 01/23/17 at 12:27; Status DC Vancomycin HCl 2500 mg/Sodium Chloride 525 ml @ 250 mls/hr Q12H IV Last administered on 01/16/17 12:22; Start 01/14/17 at 21:00; Stop 01/16/17 at 13:02; Status DC Potassium Chloride 100 ml @ 25 mls/hr Q4H IV Last administered on 01/14/17 17: 54; Start 01/14/17 at 14:00; Stop 01/14/17 at 21:59; Status DC Promethazine HCl (Phenergan Inj) 12.5 mg STAT STAT IV-CENTRAL Last administered on 01/14/17 14:23; Start 01/14/17 at 14:11; Stop 01/14/17 at 14:15; Status DC Promethazine HCl (Phenergan Inj) 12.5 mg Q4H PRN IV-CENTRAL nausea Last administered on 01/20/17 12:00; Start 01/14/17 at 16:45; Stop 01/25/17 at 14:44 ; Status DC Multi-Ingredient Mouthwash/Gargle (Magic Mouthwash Adult Liq) 10 ml QID PRN SWISH-SWAL sore throat Last administered on 01/21/17 09:45; Start 01/15/17 at 06 :30; Stop 01/25/17 at 14:44; Status DC Benzocaine/Menthol (Chloraseptic Sanjay) 1 lozenge UNSCH PRN BUCCAL sore throat; Start 01/15/17 at 06:30; Stop 01/25/17 at 14:44; Status DC Sodium Chloride 250 ml @ 15 mls/hr ONCE ONCE IV Last administered on 16:16; Start 01/15/17 at 07:45; Stop 01/16/17 at 00:24; Status DC Sodium Chloride 250 ml @ 15 mls/hr ONCE ONCE IV ; Start 01/15/17 at 07:45; Stop 01/16/17 at 00:24; Status DC Potassium Phosphate 30 mmol/ Sodium Chloride 260 ml @ 43.333 mls/ hr ONCE ONCE IV Last administered on 01/15/17 11:01; Start 01/15/17 at 09:00; Stop at 14:59; Status DC Diphenhydramine HCl (Benadryl Inj) 25 mg ONCE ONCE IV PUSH Last administered on 01/15/17 08:38; Start 01/15/17 at 08:15; Stop 01/15/17 at 08:16; Status DC Iohexol (Omnipaque 350 Inj) 92 ml STK-MED ONCE IVCONTRAST ; Start 01/15/17 at 10: 17; Stop 01/15/17 at 10:18; Status DC Potassium Chloride/Dextrose/ Sod Cl 1,000 ml @ 84 mls/hr [id number] IV Last administered on 01/17/17 01:44; Start 01/15/17 at 13:30; Stop 01/17/17 at 08:38 ; Status DC Sodium Chloride 250 ml @ 15 mls/hr ONCE ONCE IV Last administered on 13:00; Start 01/16/17 at 13:00; Stop 01/17/17 at 05:39; Status DC Acetaminophen (Tylenol) 650 mg Q4H PRN PO SEE LABEL COMMENTS Last administered on 01/17/17 14:20; Start 01/16/17 at 13:00; Stop 01/17/17 at 14:20; Status DC Diphenhydramine HCl (Benadryl) 25 mg Q4H PRN PO SEE LABEL COMMENTS Last administered on 01/17/17 14:20; Start 01/16/17 at 13:00; Stop 01/17/17 at 14:20 ; Status DC Vancomycin HCl 2000 mg/Sodium Chloride 520 ml @ 250 mls/hr Q8H IV Last administered on 01/19/17 15:08; Start 01/16/17 at 20:00; Stop 01/19/17 at 21:47 ; Status DC Miscellaneous Information SPECIFIC LAB TO BE DRAWN:VANCO TROUGH DATE TO... ONCE ONCE .XX Last administered on 01/17/17 11:05; Start 01/17/17 at 11:45; Stop 01/17/17 at 11:46; Status DC Potassium Chloride 100 ml @ 50 mls/hr Q2H IV Last administered on 01/17/17 08 :26; Start 01/16/17 at 22:45; Stop 01/17/17 at 04:44; Status DC Potassium Chloride 100 ml @ As Directed STK-MED ONCE .ROUTE ; Start 01/17/17 at 08:25; Stop 01/17/17 at 08:26; Status DC Potassium Chloride/Dextrose/ Sod Cl 1,000 ml @ 84 mls/hr [id number] IV Last administered on 01/22/17 09:56; Start 01/17/17 at 13:30; Stop 01/25/17 at 09:49 ; Status DC Aminocaproic Acid (Amicar) 1,000 mg Q6HR PO Last administered on 01/22/17 06: 17; Start 01/17/17 at 12:00; Stop 01/22/17 at 09:33; Status DC Sodium Chloride 250 ml @ 15 mls/hr ONCE ONCE IV ; Start 01/17/17 at 13:00; Stop 01/18/17 at 05:39; Status DC Potassium Phosphate (K-Phos) 1,000 mg ONCE ONCE PO Last administered on 12:41; Start 01/17/17 at 13:00; Stop 01/17/17 at 13:01; Status DC Calcium Gluconate 1 gm/Sodium Chloride 110 ml @ 110 mls/hr NOW ONCE IV Last administered on 01/17/17 17:12; Start 01/17/17 at 15:45; Stop 01/17/17 at 16:44 ; Status DC Potassium Chloride 100 ml @ 50 mls/hr Q2H IV Last administered on 01/18/17 12 :22; Start 01/17/17 at 21:00; Stop 01/18/17 at 04:59; Status DC Diphenhydramine HCl (Benadryl) 25 mg Q4H PRN PO SEE LABEL COMMENTS Last administered on 01/18/17 04:53; Start 01/18/17 at 05:00; Stop 01/18/17 at 08:00 ; Status DC Potassium Chloride 100 ml @ As Directed STK-MED ONCE .ROUTE ; Start 01/18/17 at 09:38; Stop 01/18/17 at 09:39; Status DC Acetaminophen (Tylenol) 650 mg Q6H PRN PO WHILE BLOOD INFUSING Last administered on 01/19/17 11:31; Start 01/18/17 at 10:00; Stop 01/25/17 at 14:44 ; Status DC Diphenhydramine HCl (Benadryl) 25 mg Q4H PRN PO WHILE BLOOD INFUSING Last administered on 01/19/17 11:31; Start 01/18/17 at 10:00; Stop 01/25/17 at 14:44 ; Status DC Potassium Phosphate 30 mmol/ Sodium Chloride 260 ml @ 43.333 mls/ hr ONCE ONCE IV Last administered on 01/18/17 16:29; Start 01/18/17 at 14:00; Stop 03/26 at 19:59; Status DC Potassium Chloride 100 ml @ As Directed STK-MED ONCE .ROUTE ; Start 01/18/17 at 12:15; Stop 01/18/17 at 12:16; Status DC Miscellaneous Information SPECIFIC LAB TO BE JASKARAN... ONCE ONCE .XX Last administered on 01/19/17t 19:45; Start 01/19/17 at 19:45; Stop 01/19/17 at 19:46 ; Status DC Potassium Chloride (KCl) 20 meq Q12HR PO Last administered on 01/24/17 09:45; Start 01/19/17 at 09:30; Stop 01/25/17 at 12:03; Status DC Acetaminophen (Tylenol) 650 mg Q4H PRN PO SEE LABEL COMMENTS; Start 01/20/17 at 06:00; Stop 01/25/17 at 14:44; Status DC Diphenhydramine HCl (Benadryl) 25 mg Q4H PRN PO SEE LABEL COMMENTS; Start 01/20 at 06:00; Stop 01/25/17 at 14:44; Status DC Sodium Chloride 250 ml @ 15 mls/hr ONCE ONCE IV ; Start 01/19/17 at 12:00; Stop 01/20/17 at 04:39; Status DC Oxymetazoline HCl (Afrin 0.05% Freddie Earling) 2 spray ONCE STAT NASAL ; Start 01/19 at 11:49; Stop 01/19/17 at 12:00; Status DC Aminocaproic Acid 2000 mg/Sodium Chloride 230 ml @ 250 mls/hr ONCE STAT IV ; Start 01/19/17 at 11:49; Stop 01/19/17 at 12:13; Status DC Aminocaproic Acid 2000 mg/Sodium Chloride 250 ml @ 250 mls/hr ONCE STAT IV ; Start 01/19/17 at 12:13; Stop 01/19/17 at 12:23; Status DC Aminocaproic Acid 2000 mg/Sodium Chloride 250 ml @ 250 mls/hr ONCE STAT IV Last administered on 01/19/17t 13:06; Start 01/19/17 at 12:23; Stop 01/19/17 at 13:22; Status DC Vancomycin HCl 1500 mg/Sodium Chloride 515 ml @ 257.5 mls/ hr Q8H IV Last administered on 01/20/17 13:29; Start 01/20/17 at 00:00; Stop 01/20/17 at 15:45 ; Status DC Miscellaneous Information SPECIFIC LAB TO BE DRAWN:VANCO TROUGH DATE TO BE DRDexter.Dexter ONCE ONCE .XX ; Start 01/20/17 at 15:45; Stop 01/20/17 at 15:45; Status DC Vancomycin HCl 1500 mg/Sodium Chloride 515 ml @ 257.5 mls/ hr Q8H IV Last administered on 01/21/17 06:30; Start 01/20/17 at 21:00; Stop 01/21/17 at 19:56 ; Status DC Miscellaneous Information SPECIFIC LAB TO BE DRAWN:VANCOMYCIN TROUGH DATE TO... ONCE ONCE .XX Last administered on 01/21/17 04:45; Start 01/21/17 at 04:45; Stop 01/21/17 at 04:46; Status DC Fluconazole (Diflucan 40 Mg/ ml Liq) 200 mg DAILY PO ; Start 01/20/17 at 19:45; Stop 01/20/17 at 19:48; Status DC Fluconazole (Diflucan 40 Mg/ ml Liq) 200 mg DAILY PO Last administered on 08:38; Start 01/21/17 at 09:00; Stop 01/27/17 at 09:00; Status DC Potassium Chloride (KCl) 20 meq ONCE ONCE PO ; Start 01/21/17 at 10:00; Stop at 11:03; Status DC Miscellaneous Information SPECIFIC LAB TO BE .. ONCE ONCE .XX ; Start 01/22 at 12:45; Stop 01/22/17 at 12:46; Status DC Lidocaine HCl (Xylocaine 1% Inj) 20 ml STK-MED ONCE .ROUTE Last administered on 01/22/17 12:16; Start 01/22/17 at 12:16; Stop 01/22/17 at 12:17; Status DC Fentanyl Citrate (fentaNYL INJ) 100 mcg STK-MED ONCE .ROUTE Last administered on 01/22/17 12:24; Start 01/22/17 at 12:24; Stop 01/22/17 at 12:25; Status DC Fentanyl Citrate (fentaNYL INJ) 100 mcg STK-MED ONCE .ROUTE Last administered on 01/22/17 12:24; Start 01/22/17 at 12:24; Stop 01/22/17 at 12:25; Status DC Midazolam HCl (Versed Inj) 5 mg STK-MED ONCE .ROUTE Last administered on 12:24; Start 01/22/17 at 12:24; Stop 01/22/17 at 12:25; Status DC Oxycodone HCl (Roxicodone) 5 mg Q4H PRN PO PAIN3-9 Last administered on 12:39; Start 01/23/17 at 08:15; Stop 01/26/17 at 16:10; Status DC Pantoprazole Sodium (Protonix Inj) 40 mg Q12HR IV PUSH Last administered on 20:09; Start 01/23/17 at 11:00 Alteplase, Recombinant (Cathflo Activase Inj) 2 mg Q2H PRN INTRACATH clotted catheter Last administered on 01/24/17 09:46; Start 01/24/17 at 08:45 Hydromorphone HCl (Dilaudid Pf Inj) 2 mg Q8H PRN IV PUSH SEVERE BREAKTHROUGH PAIN Last administered on 01/26/17 10:48; Start 01/25/17 at 10:00; Stop at 16:10; Status DC Potassium Bicarb/ Potassium Chloride (K-Lyte Cl Eff) 25 meq DAILY NG Last administered on 01/25/17 13:16; Start 01/25/17 at 12:15; Stop 01/25/17 at 14:44 ; Status DC Docusate Sodium (Colace) 100 mg TID PO Last administered on 01/27/17 16:11; Start 01/25/17 at 18:00 Iohexol (Omnipaque 350 Inj) 100 ml STK-MED ONCE IVCONTRAST Last administered on 01/26/17 14:08; Start 01/26/17 at 14:08; Stop 01/26/17 at 14:09; Status DC Oxycodone HCl (Roxicodone) 5 mg Q4H PRN PO PAIN SCALE 1 TO 5 Last administered on 01/27/17 04:40; Start 01/26/17 at 16:15 Hydromorphone HCl (Dilaudid Pf Inj) 2 mg Q4H PRN IV PUSH PAIN SCALE 6 TO 10 Last administered on 01/27/17 06:08; Start 01/26/17 at 16:15; Stop 01/27/17 at 07:47; Status DC Oxycodone HCl (Roxicodone) 10 mg Q4H PRN PO PAIN 6-10 Last administered on 01/28 07:37; Start 01/27/17 at 07:45 Hydromorphone HCl (Dilaudid Pf Inj) 1 mg Q4H PRN IV PUSH BREAKTHROUGH PAIN Last administered on 01/28/17 03:20; Start 01/27/17 at 07:45 Trimethoprim/ Sulfamethoxazole (Bactrim Ds 800-160 Mg) 1 tab MoWeFr@09 PO ; Start 01/29/17 at 09:00 Acyclovir (Zovirax) 400 mg Q12HR PO ; Start 01/28/17 at 09:00 A/P Assessment and Plan A/P - AML started on induction chemotherapy per oncology. heme/onc managing with induction therapy, -- BMB showed 70% blasts in bone marrow repeated BM biopsy with no evidence of AML. port placement by IR completed 12/31/16 - tachycardia; better- no chest pain or sob- CTA chest negative for PE- continue to monitor -neutropenic fever- resolved- off antibiotics- evaluated by ID. 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 s/p EGD with esophageal candidiasis, esophageal ulcer and gastritis. continue diflucan, PPI and Carafate. GI follow-up appreciated and signed off. MRI negative for acute findings. Splenic hemangiomas noted. continue with pain control; oxycodone was added- will taper down IV dilaudid- --thrombocytopenia - 2/2 AML-resolved. --Prolonged immobilization. Doppler studies negative for DVT. PT/OT eval/tx. Discharge Planning hopefully soon -when cleared with Oncology. d/w Oncology. Dacia Watkins MD Jan 28, 2017 07:57
[2017-01-28 08:28] LABS: BANDS 3 % (0-6); BASOPHILS 1 % (0-2); CORRECTED NUCLEATED RBC 2 /100 WBC (0-0); METAMYELOCYTES 4 % (0-1); MYELOCYTES 1 % (0-0); NEUTROPHIL # MANUAL DIFF 4.9 TH/MM3 (1.8-7.7); POLYS (SEG NEUTROPHILS) 63 % (16-70); WBC DIFF SAMPLE 100
[2017-01-28 08:29] LABS: PLATELET ESTIMATE SMEAR HIGH (NORMAL)
[2017-01-28 08:32] LABS: OVALOCYTES 1+ (NORMAL); PLATELET MORPHOLOGY ENLARGED (NORMAL); SCAN/DIFF FINAL DIFF MANUAL
[2017-01-28] MEDS: ALLOPURINOL 100 MG TAB PO SCH (08:38)
[2017-01-28] MEDS: DOCUSATE SODIUM 100 MG CAP PO SCH ×3 (08:38→16:53)
[2017-01-28] MEDS: ACYCLOVIR 200 MG CAP PO SCH ×2 (08:38→20:17)
[2017-01-28] MEDS: SUCRALFATE 1 GM/10 ML CUP PO SCH ×4 (08:38→20:16)
[2017-01-28] MEDS: PANTOPRAZOLE SODIUM 40 MG VIAL IV PUSH SCH ×2 (08:38→20:16)
[2017-01-28] MEDS: Hickman Catheter Daily NS Lock Flush IV FLUSH SCH (08:39)
[2017-01-28] MEDS: MUPIROCIN 2% OINT 22 GM TUBE TOPICAL SCH ×3 (08:39→16:52)
[2017-01-28] MEDS: SODIUM CHLORIDE 0.9% FLUSH 10 ML FLUSH IV FLUSH SCH ×2 (08:39→20:17)
[2017-01-28] MEDS: SODIUM CHLORIDE 0.9% FLUSH 10 ML FLUSH IV FLUSH PRN (08:39)
--- NOTE | 2017-01-28 09:36 | PD.ONC.PN ---
Subjective Subjective Remarks Afebrile overnight. Patient resting in bed in nad. No complaints. Slept well overnight. Objective Data Date Time Temp Pulse Resp B/P (MAP) Pulse Ox O2 Delivery O2 Flow Rate FiO2 01/28/17 08:43 96 01/28/17 04:00 97.9 95 17 139/72 (94) 97 01/28/17 03:50 18 01/28/17 03:20 16 01/28/17 00:00 97.7 97 17 121/58 (79) 97 01/27/17 20:00 98.7 105 17 104/62 (76) 96 01/27/17 16:00 97.4 96 14 106/53 (70) 98 01/27/17 12:00 96.8 89 14 111/51 (71) 98 01/27/17 09:49 98 21 Result Diagram: 01/28/17 0606 01/27/17 0443 Laboratory Results Laboratory Tests Test 01/28/17 06:06 White Blood Count 6.9 TH/MM3 Red Blood Count 2.95 MIL/MM3 Hemoglobin 8.9 GM/DL Hematocrit 25.5 % Mean Corpuscular Volume 86.5 FL Mean Corpuscular Hemoglobin 30.3 PG Mean Corpuscular Hemoglobin Concent 35.0 % Red Cell Distribution Width 14.1 % Platelet Count 596 TH/MM3 Mean Platelet Volume 7.4 FL CBC Comment AUTO DIFF Differential Total Cells Counted 100 Neutrophils % (Manual) 63 % Band Neutrophils % 3 % Lymphocytes % 15 % Monocytes % 13 % Basophils % 1 % Neutrophils # (Manual) 4.9 TH/MM3 Metamyelocytes 4 % Myelocytes 1 % Nucleated Red Blood Cells 2 /100 WBC Differential Comment FINAL DIFF MANUAL Platelet Estimate HIGH Platelet Morphology Comment ENLARGED Polychromasia 2.0 % Ovalocytes 1+ Fibrinogen 449 mg/dL Administered Medications Medications (Trade) Dose Ordered Sig/Emma Route PRN Reason Start Time Stop Time Status Last Admin Dose Admin Sodium Chloride (NS Flush) 2 ml UNSCH PRN IV FLUSH FLUSH AFTER USING IV ACCESS 12/25/16 23:00 12/30/16 04:59 Sodium Chloride (NS Flush) 2 ml BID IV FLUSH 12/26/16 09:00 01/28/17 08:39 Acetaminophen (Tylenol) 650 mg Q6H PRN PO FEVER>100.4 12/25/16 23:00 01/26/17 14:55 Mupirocin (Bactroban 2% Oint) 1 applic TID TOPICAL 12/27/16 14:15 01/22/17 09:18 Sodium Chloride (NS Flush) 5 ml DAILY IV FLUSH 12/30/16 09:00 01/27/17 10:12 Heparin Sodium (Porcine) (Heparin Central Flush) 500 units DAILY IV FLUSH 12/30/16 09:00 01/27/17 10:05 Heparin Sodium (Porcine) (Heparin Central Flush) 500 units UNSCH PRN IV FLUSH SEE PROTOCOL TABLE 12/30/16 06:30 12/31/16 15:45 Allopurinol (Zyloprim) 200 mg DAILY PO 01/06/17 09:00 01/28/17 08:38 Sucralfate (Carafate Liq) 1 gm ACHS PO 01/09/17 16:00 01/28/17 08:38 Ondansetron HCl (Zofran Inj) 8 mg Q8H PRN IV PUSH NAUSEA 01/11/17 17:15 Future hold 01/26/17 12:32 Pantoprazole Sodium (Protonix Inj) 40 mg Q12HR IV PUSH 01/23/17 11:00 01/28/17 08:38 Alteplase, Recombinant (Cathflo Activase Inj) 2 mg Q2H PRN INTRACATH clotted catheter 01/24/17 08:45 01/24/17 09:46 Docusate Sodium (Colace) 100 mg TID PO 01/25/17 18:00 01/28/17 08:38 Oxycodone HCl (Roxicodone) 5 mg Q4H PRN PO PAIN SCALE 1 TO 5 01/26/17 16:15 01/27/17 04:40 Oxycodone HCl (Roxicodone) 10 mg Q4H PRN PO PAIN 6-10 01/27/17 07:45 01/28/17 07:37 Hydromorphone HCl (Dilaudid Pf Inj) 1 mg Q4H PRN IV PUSH BREAKTHROUGH PAIN 01/27/17 07:45 01/28/17 08:50 Acyclovir (Zovirax) 400 mg Q12HR PO 01/28/17 09:00 01/28/17 08:38 Objective Remarks GENERAL: Young man, sitting up in bed in nad. SKIN: Warm and dry. HEAD: Normocephalic. EYES: No injection or drainage. NECK: Supple, trachea midline. CARDIOVASCULAR: Regular rate and rhythm RESPIRATORY: Breath sounds equal bilaterally. No accessory muscle use. GASTROINTESTINAL: Abdomen soft, non-tender, nondistended. EXTREMITIES: No cyanosis NEUROLOGICAL: awake and alert, normal speech. moving all extremities. 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 3am. Transfuse 1 unit irr. platelets, 1 unit irr. PRBC's. 01/08: D9. abdominal pain persistent. 2 units pRBC 01/09: D10. 2 additional units pRBC ordered. 1 unit platelets ordered 01/10: D11. 2 units pRBC. 1 unit platelets. + stool hemoccult 01/12: D13: 2 units pRBC. 1 unit platelets. 01/13: D14: 1 unit platelets. BB working to obtain HLA matched platelets 01/14: D15. 2 units HLA matched platelets given. spoke with BB they will have two units HLA matched on hand at all times. EGD today. 01/15: D16: 1 unit platelets, 1 unit pRBC. swelling in neck and face, ?SVC syndrome. CT chest and CT neck ordered 01/16: D 17: 1 unit platelets, [address] chest and neck negative for SVC syndrome. Continue to monitor blood counts. 01/17 D18: Labs pending. Start Amicar 1gm Q6h for overnight coughing up trav blood. Will transfuse for platelets less than 10k and Hgb less than 7.0. 01/18 D19: WBC 1.0, still thrombocytopenic, no bleeding from IV site or gums. Continue plans for platelet transfusion support. Afebrile. 01/19 D20: Patient received therapeutic transfusions 01/20: D21: No transfusion today. No further hematemesis. 01/21: D22: Transfuse 1 unit PRBC's today. Platelets appear to be recovering. 01/22: D23. repeat BMB today. 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 encourage patient to start mobilizing more. 01/23: D24. encourage oral intake and mobilization. was OOB for several hours 01/24: D25. pain improving. oral intake improving. 01/25: D2. wean pain medication 01/26: D2. await pathology from BMB 01/27: D2. pathology pending. 01/28: pathology shows no residual disease. we will send to tertiary care center ([facility]) for second opinion to be sure there is no residual disease. 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 Patients with rearrangement of CBFB in AML may have a higher risk of NEON INSTALLER involvement at diagnosis or at relapse than patients with other types of AML. Inversion 16 or t(16;16), with or without additional chromosome abnormalities, has been associated with complete remission and improved long-term survival. - MUGA scan shows normal EF and no wall motion abnormalities 12/30/2016 - Port placement by IR completed 12/31/16 - Induction chemotherapy started 12/31-- 7+3 regimen with Daunorubicin 90mg/m2 and Cytaribine 100mg/m2-- Dosing capped at BSA of 2 - CMV negative, HIV and Hep B and C negative (2) Abdominal pain ICD Codes: R10.9 - Unspecified abdominal pain Plan: -- Epigastric area pain--EGD, 01/14 showed thrush and distal esophageal ulcer as well as severe gastritis. -- Amylase, lipase WNL -- CT abdomen/ pelvis shows splenic infarcts; --CTA abdomen shows no mesenteric emboli --Abdominal U/S: shows no acute findings. enlarged liver and spleen. --GI following --on Protonix, Carafate, Diflucan +stool hemoccult (3) Sinus tachycardia ICD Codes: R00.0 - Tachycardia, unspecified Plan: --CTA negative for PE --will obtain repeat MUGA scan Assessment 1. have patient sign consent for send out of slides/pathology to tertiary care center 2. discussed with patient plan to discharge tomorrow and will discuss repeat pathology in clinic once discharged. Attending Statement The exam, history, and the medical decision-making described in the above note were completed with the assistance of the mid-level provider. I reviewed and agree with the findings presented. 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 Sylvain Page at [facility]. Patient had minute number of circulating blasts in circulation--also identified by flow cytometry. Bone marrow biopsy slides will be sent to [facility] for evaluation We will discharge the patient home tomorrow. f/U in clinic in 1 week No blood products today D/C allopurinol D/C home with Bactrim DS [id number]. Cipro 250mg Wednesday/ and Wednesday. Acyclovir 400mg PO BID Taper pain meds d/w rn d/w patient overnight events reviewed Problem Qualifiers (1) Acute myelogenous leukemia: Qualified Codes: C92.00 - Acute myeloblastic leukemia, not having achieved remission Fartun Pagan Jan 28, 2017 09:36 Joey Santoyo MD Jan 28, 2017 21:34
[2017-01-28] MEDS: ONDANSETRON HCL 4 MG/2 ML VIAL IV PUSH PRN (12:51)
[2017-01-29 00:35] VITALS: BP 130/85; PULSE 98; RESP 20; TEMP 96.5; O2SAT 96
[2017-01-29 04:00] VITALS: BP 130/58; PULSE 97; RESP 20; TEMP 96.3; O2SAT 95
[2017-01-29 08:00] VITALS: BP 123/59; PULSE 99; RESP 20; TEMP 98.3; O2SAT 97
--- NOTE | 2017-01-29 08:11 | HHI.PR ---
Subjective Remarks resting comfortably with no distress. no new complaints. he says that he's ready to go home today. afebrile. Objective Vitals Vital Signs Date Time Temp Pulse Resp B/P (MAP) Pulse Ox O2 Delivery O2 Flow Rate FiO2 01/29/17 04:00 96.3 97 20 130/58 (82) 95 01/29/17 00:35 96.5 98 20 130/85 (100) 96 01/28/17 20:47 16 01/28/17 20:00 96.7 89 18 130/60 (83) 97 01/28/17 16:00 97.0 103 20 111/52 (71) 96 01/28/17 12:00 97.0 98 20 116/66 (83) 99 01/28/17 08:43 96 I/O 01/28/17 01/28/17 01/28/17 01/29/17 01/29/17 01/29/17 07:00 15:00 23:00 07:00 15:00 23:00 Intake Total 1200 ml Output Total 1600 ml Balance -400 ml Intake Oral 1200 ml Output Urine Total 1600 ml # Voids 2 0 # Bowel Movements 0 0 Result Diagram: 01/28/17 0606 01/27/17 0443 Imaging Last Impressions Gated Heart Nuclear Medicine 01/27/17 0000 Signed Impressions: Service Date/Time: Friday, January 27, 2017 00:00 - CONCLUSION: EF 52%%. Richy Bonner MD FACR CT Angiography 01/26/17 0000 Signed Impressions: Service Date/Time: Thursday, January 26, 2017 13:53 - CONCLUSION: 1. No pulmonary embolus identified. 2. There are some small, nonspecific nodes in the right paratracheal region. There is a small node in the subcarinal anaya chain as well. Nilson Bonner MD Bone Biopsy CT 01/22/17 0000 Signed Impressions: Service Date/Time: Sunday, January 22, 2017 13:16 - CONCLUSION: 1. Uncomplicated CT guided bone marrow aspirate. 2. Uncomplicated CT guided bone marrow biopsy. Garcia Tello MD Upper Extremity Ultrasound 01/19/17 0000 Signed Impressions: Service Date/Time: Thursday, January 19, 2017 08:07 - CONCLUSION: Negative for DVT . Richy Bonner MD FACR Neck CT 01/15/17 0806 Signed Impressions: Service Date/Time: Sunday, January 15, 2017 09:54 - CONCLUSION: Mild sinusitis within the maxillary sinuses, slight scarring right apex of the lung. Patricia Contreras MD Chest CT 01/15/17 0806 Signed Impressions: Service Date/Time: Sunday, January 15, 2017 09:58 - CONCLUSION: Left lung infiltrate has resolved and there is improvement in right lung infiltrates with residual infiltrate remaining. Patricia Contreras MD Abdomen X-Ray 01/13/17 1451 Signed Impressions: Service Date/Time: Friday, January 13, 2017 15:41 - CONCLUSION: Moderate gaseous distention of large and small bowel with appearance most suggestive of ileus Audie Gomez MD Abdomen MRI 01/12/17 0000 Signed Impressions: Service Date/Time: Thursday, January 12, 2017 09:47 - CONCLUSION: No evidence of acute abdominal process. Splenic hemangiomas Humza Decker MD Lower Extremity Ultrasound 01/10/17 0000 Signed Impressions: Service Date/Time: Tuesday, January 10, 2017 21:50 - CONCLUSION: Negative exam with no evidence of deep venous thrombosis. Jose Nicholson MD Hepatobiliary Scan Nuclear Medicine 01/09/17 0000 Signed Impressions: Service Date/Time: Monday, January 09, 2017 10:01 - CONCLUSION: 1. The patient refused imaging beyond 45 minutes. There is activity seen within small bowel and gallbladder with no evidence for cystic duct obstruction. Danie Kelly MD Abdomen/Pelvis CT 01/08/17 0000 Signed Impressions: Service Date/Time: Sunday, January 08, 2017 14:43 - CONCLUSION: 1. No evidence of mesenteric artery stenosis 2. Small amount of free fluid is present in the pelvis Humza Decker MD Abdomen Ultrasound 01/07/17 0000 Signed Impressions: Service Date/Time: December 01:11 - CONCLUSION: 1. No acute findings. Liver enlarged. Spleen mildly prominent at 14 cm. Leander Fiore MD Chest X-Ray 01/03/17 0600 Signed Impressions: Service Date/Time: Tuesday, January 03, 2017 04:42 - CONCLUSION: Normal examination. Right IJ Dhdwgv-f-Brey catheter in excellent position. Lungs are clear. Enrique A. Sevigny, MD Port Line Insertion 12/31/16 0000 Signed Impressions: Service Date/Time: December 15:15 - CONCLUSION: Uncomplicated ultrasound and fluoroscopic guided implanted central venous port catheter placement as described in detail above. An 8 [employer] port was placed. Nilson Bonner MD Brain MRI 12/27/16 0000 Signed Impressions: Service Date/Time: Tuesday, December 27, 2016 21:58 - CONCLUSION: Unremarkable study. Patricia Contreras MD Lumbar Puncture Fluoroscopy 12/26/16 0000 Signed Impressions: Service Date/Time: Monday, December 26, 2016 17:03 - CONCLUSION: Uncomplicated fluoroscopically guided lumbar puncture with pressures as above. Nilson Bonner MD Head CT 12/25/161940 Signed Impressions: Service Date/Time: Sunday, December 25, 2016 19:50 - CONCLUSION: Negative noncontrast head CT. Audie Maria MD Objective Remarks GENERAL: This is a well-nourished, well-developed patient, in no apparent distress. CARDIOVASCULAR: Regular rate and regular rhythm without murmurs, gallops, or rubs. RESPIRATORY: Clear to auscultation. Breath sounds equal bilaterally. No wheezes , rales, or rhonchi. GASTROINTESTINAL: Abdomen soft, non-tender, nondistended. Normal, active bowel sounds MUSCULOSKELETAL: Extremities without clubbing, cyanosis, or edema. NEURO: Alert & Oriented x4 to person, place, time, situation. Moves all ext x4 Procedures 12/31 [id number]-[id number] placement bone marrow biopsy Medications and IVs Current Medications Acetaminophen (Tylenol) 650 mg ONCE ONCE PO Last administered on 12/25/16 20: 28; Start 12/25/16 at 19:45; Stop 12/25/16 at 19:46; Status DC Sodium Chloride 1,000 ml @ 1,000 mls/hr Q1H ONCE IV Last administered on 20:27; Start 12/25/16 at 19:41; Stop 12/25/16 at 20:40; Status DC Sodium Chloride 1,000 ml @ 1,000 mls/hr Q1H ONCE IV Last administered on 20:41; Start 12/25/16 at 19:41; Stop 12/25/16 at 20:40; Status DC Sodium Chloride 1,000 ml @ 1,000 mls/hr Q1H ONCE IV Last administered on 21:09; Start 12/25/16 at 19:41; Stop 12/25/16 at 20:40; Status DC Sodium Chloride 900 ml @ 1,000 mls/hr Q54M ONCE IV Last administered on 21:46; Start 12/25/16 at 19:41; Stop 12/25/16 at 20:34; Status DC Prochlorperazine Edisylate (Compazine Inj) 10 mg ONCE ONCE IV PUSH Last administered on 12/25/16 20:28; Start 12/25/16 at 19:45; Stop 12/25/16 at 19:46 ; Status DC Diphenhydramine HCl (Benadryl Inj) 25 mg ONCE ONCE IV PUSH Last administered on 12/25/16 20:27; Start 12/25/16 at 19:45; Stop 12/25/16 at 19:46; Status DC Cefepime HCl 2000 mg/Sodium Chloride 100 ml @ 200 mls/hr ONCE STAT IV Last administered on 12/25/16 21:46; Start 12/25/16 at 21:13; Stop 12/25/16 at 21:42 ; Status DC Pharmacy Profile Note 0 ml @ 0 mls/hr UNSCH OTHER ; Start 12/25/16 at 23:00; Stop 12/30/16 at 20:00; Status DC Cefepime HCl 1000 mg/Sodium Chloride 100 ml @ 200 mls/hr Q12H IV Last administered on 12/28/16 08:18; Start 12/26/16 at 09:00; Stop 12/28/16 at 19:05 ; Status DC Sodium Chloride 1,000 ml @ 100 mls/hr Q10H IV Last administered on 12/27/16 17:17; Start 12/25/16 at 23:00; Stop 12/28/16 at 09:00; Status DC Sodium Chloride (NS Flush) 2 ml UNSCH PRN IV FLUSH FLUSH AFTER USING IV ACCESS Last administered on 12/30/16 04:59; Start 12/25/16 at 23:00 Sodium Chloride (NS Flush) 2 ml BID IV FLUSH Last administered on 01/28/17 20: 17; Start 12/26/16 at 09:00 Ondansetron HCl (Zofran Inj) 4 mg Q6H PRN IVP NAUSEA OR VOMITING Last administered on 01/05/17 15:10; Start 12/25/16 at 23:00; Stop 01/06/17 at 15:54 ; Status DC Acetaminophen (Tylenol) 650 mg Q6H PRN PO FEVER>100.4 Last administered on 01/26 14:55; Start 12/25/16 at 23:00 Acetaminophen/ Hydrocodone Bitart ([place] 5-325 Mg) 1 tab Q4H PRN PO PAIN SCALE 3 TO 5 Last administered on 12/27/16 12:05; Start 12/25/16 at 23:00; Stop 12/27/16 at 13:56; Status DC Morphine Sulfate (Morphine Inj) 2 mg Q3H PRN IV Pain 6-10 Last administered on 01/06/17 22:09; Start 12/25/16 at 23:00; Stop 01/06/17 at 23:13; Status DC Senna/Docusate Sodium (Rika-Colace) 1 tab BID PO Last administered on 01/08/17 08:12; Start 12/26/16 at 09:00; Stop 01/09/17 at 12:59; Status DC Magnesium Hydroxide (Milk Of Magnesia Liq) 30 ml Q12H PRN PO MILD - MODERATE CONSTIPATION; Start 12/25/16 at 23:00 Sennosides (Senokot) 17.2 mg Q12H PRN PO MODERATE - SEVERE CONSTIPATION; Start 12/25/16 at 23:00; Stop 01/25/17 at 14:44; Status DC Bisacodyl (Dulcolax Supp) 10 mg DAILY PRN RECTAL SEVERE CONSITIPATION; Start at 23:00; Stop 01/25/17 at 14:44; Status DC Lactulose (Lactulose Liq) 30 ml DAILY PRN PO SEVERE CONSITIPATION; Start at 23:00; Stop 01/25/17 at 14:44; Status DC Vancomycin HCl 2500 mg/Sodium Chloride 525 ml @ 250 mls/hr Q12H IV Last administered on 12/26/16 00:27; Start 12/26/16 at 01:00; Stop 12/26/16 at 04:00 ; Status DC Guaifenesin/ Dextromethorphan (Robitussin Dm 200-20 Mg/10 ml Liq) 10 ml Q4H PRN PO cough Last administered on 12/26/16 18:19; Start 12/26/16 at 01:45; Stop 12/26/16 at 19:43; Status DC Benzonatate (Tessalon) 100 mg Q4H PRN PO COUGH Last administered on 12/26/16 15:12; Start 12/26/16 at 05:15; Stop 01/25/17 at 14:44; Status DC Vancomycin HCl 2000 mg/Sodium Chloride 520 ml @ 260 mls/hr Q12H IV Last administered on 12/27/16 17:16; Start 12/26/16 at 13:00; Stop 12/27/16 at 18:13 ; Status DC Miscellaneous Information SPECIFIC LAB TO BE JASKARAN... ONCE ONCE .XX Last administered on 12/27/16 17:05; Start 12/27/16 at 12:45; Stop 12/27/16 at 12:46 ; Status DC Sodium Bicarbonate 50 ml @ As Directed STK-MED ONCE .ROUTE Last administered on 12/26/16 16:54; Start 12/26/16 at 16:54; Stop 12/26/16 at 16:55; Status DC Iohexol (Omnipaque 350 Inj) 71 ml STK-MED ONCE IV Last administered on 17:47; Start 12/26/16 at 17:47; Stop 12/26/16 at 17:48; Status DC Albuterol/ Ipratropium (Duoneb Neb) 1 ampule Q6HR WHILE AWAKE NEB NEB Last administered on 12/30/16 09:15; Start 12/26/16 at 20:00; Stop 12/30/16 at 20:00 ; Status DC Guaifenesin/ Codeine Phosphate (Robitussin Ac 200-20 Mg/10 ml Liq) 10 ml Q4H PRN PO codine; Start 12/26/16 at 19:45; Stop 12/29/16 at 11:01; Status DC Promethazine HCl/ Codeine (Phenergan-Codeine Liq) 5 ml Q4H PRN PO COUGH Last administered on 12/31/16 17:09; Start 12/26/16 at 20:00; Stop 01/12/17 at 11:12 ; Status DC Sodium Chloride 250 ml @ 15 mls/hr ONCE ONCE IV Last administered on 23:23; Start 12/26/16 at 23:15; Stop 12/27/16 at 15:54; Status DC Acetaminophen (Tylenol) 650 mg Q4H PRN PO SEE LABEL COMMENTS; Start 12/26/16 at 23:15; Stop 12/27/16 at 03:16; Status DC Diphenhydramine HCl (Benadryl) 25 mg Q4H PRN PO SEE LABEL COMMENTS; Start 12/26 at 23:15; Stop 12/27/16 at 03:16; Status DC Calcium Gluconate 1 gm/Dextrose 110 ml @ 110 mls/hr ONCE ONCE IV Last administered on 12/26/16 23:56; Start 12/26/16 at 23:30; Stop 12/27/16 at 00:29 ; Status DC Diphenhydramine HCl (Benadryl) 25 mg Q4H PRN PO SEE LABEL COMMENTS Last administered on 01/16/17 02:23; Start 12/27/16 at 04:15; Stop 01/16/17 at 13:01; Status DC Acetaminophen (Tylenol) 650 mg Q4H PRN PO SEE LABEL COMMENTS Last administered on 01/15/17 13:52; Start 12/27/16 at 04:15; Stop 01/16/17 at 13:01; Status DC Mupirocin (Bactroban 2% Oint) 1 applic TID TOPICAL Last administered on 09:18; Start 12/27/16 at 14:15 Dexamethasone (Decadron) 4 mg Q12HR PO ; Start 12/27/16 at 21:00; Stop 12/27/16 at 21:00; Status DC Dexamethasone (Decadron) 4 mg ONCE ONCE PO Last administered on 12/27/16 14: 30; Start 12/27/16 at 14:00; Stop 12/27/16 at 14:01; Status DC Oxycodone HCl (Roxicodone) 5 mg Q6H PRN PO PAIN 1-10 Last administered on 21:56; Start 12/27/16 at 14:00; Stop 01/06/17 at 18:54; Status DC Lisinopril (Prinivil) 10 mg DAILY PO ; Start 12/28/16 at 15:00; Stop 12/28/16 at 15:00; Status DC Clonidine (Catapres) 0.2 mg Q6H PRN PO SBP > 160; Start 12/27/16 at 14:15; Stop 12/27/16 at 14:15; Status DC Diatrizoate Meglum/ Diatrizoate Sod ( Gastroview Liq) 18 ml ONCE ONCE PO Last administered on 12/27/16 17:16; Start 12/27/16 at 16:45; Stop 12/27/16 at 16:46; Status DC Albuterol Sulfate (Albuterol Concentrated Neb) 2.5 mg [employer] NEB ; Start 12/27 at 16:45; Stop 12/31/16 at 16:44; Status DC Lidocaine HCl (Lidocaine Pf 4% Neb) 3 ml [employer] NEB ; Start 12/27/16 at 16:45 ; Stop 12/31/16 at 16:44; Status DC Vancomycin HCl 2000 mg/Sodium Chloride 520 ml @ 260 mls/hr Q12H IV Last administered on 12/29/16 02:15; Start 12/28/16 at 05:00; Stop 12/29/16 at 03:00 ; Status DC Miscellaneous Information SPECIFIC LAB TO BE DRAWN:VANCOMY... ONCE ONCE .XX ; Start 12/29/16 at 04:45; Stop 12/29/16 at 04:46; Status DC Sodium Chloride 250 ml @ 15 mls/hr ONCE ONCE IV ; Start 12/27/16 at 18:30; Stop 12/27/16 at 18:38; Status DC Sodium Chloride 250 ml @ 15 mls/hr ONCE ONCE IV ; Start 12/27/16 at 18:45; Stop 12/28/16 at 11:24; Status DC Gadodiamide (Omniscan Pf Inj) 30 ml STK-MED ONCE IVCONTRAST Last administered on 12/27/16 22:10; Start 12/27/16 at 22:10; Stop 12/27/16 at 22:11; Status DC Iohexol (Omnipaque 350 Inj) 95 ml STK-MED ONCE IVCONTRAST Last administered on 12/27/16 23:00; Start 12/27/16 at 23:00; Stop 12/27/16 at 23:03; Status DC Lactated Ringer's 1,000 ml @ 30 mls/hr Q24H PRN IV SEE LABEL COMMENTS; Start at 06:15; Stop 12/31/16 at 06:14; Status DC Sodium Chloride 500 ml @ 30 mls/hr [id number] PRN IV SEE LABEL COMMENTS; Start at 06:15; Stop 12/31/16 at 06:14; Status DC Povidone Iodine (Betadine 5% Antisepsis Kit) 1 applic [employer] PRN EACH NARE SEE LABEL COMMENTS; Start 12/28/16 at 06:15; Stop 12/31/16 at 06:14; Status DC Chlorhexidine Gluconate (Chlorhexidine 2% Cloth) 3 pack [employer] PRN TOPICAL SEE LABEL COMMENTS; Start 12/28/16 at 06:15; Stop 12/31/16 at 06:14; Status DC Insulin Human Regular (NovoLIN R INJ) See Protocol Table ... [employer] PRN SQ SEE PROTOCOL TABLE; Start 12/28/16 at 06:15; Stop 12/31/16 at 06:14; Status DC Dextrose 1,000 ml @ 84 mls/hr [id number] IV Last administered on 01/01/17 22:03 ; Start 12/28/16 at 09:00; Stop 01/02/17 at 12:34; Status DC Calcium Carbonate (Tums Chew) 500 mg Q6H PRN CHEW DYSPEPSIA OR HEARTBURN; Start 12/28/16 at 14:00; Stop 01/23/17 at 13:13; Status DC Pantoprazole Sodium (Protonix) 20 mg DAILY PO Last administered on 01/08/17 08: 13; Start 12/29/16 at 09:00; Stop 01/08/17 at 17:45; Status DC Famotidine (Pepcid Inj) 20 mg ONCE ONCE IV PUSH Last administered on 14:27; Start 12/28/16 at 14:20; Stop 12/28/16 at 14:21; Status DC Lidocaine HCl (Xylocaine 1% Inj) 20 ml STK-MED ONCE .ROUTE Last administered on 12/28/16 14:49; Start 12/28/16 at 14:49; Stop 12/28/16 at 14:50; Status DC Sodium Chloride (Sodium Chloride 0.9% Inj) 40 ml STK-MED ONCE .ROUTE ; Start at 15:54; Stop 12/28/16 at 15:55; Status DC Lidocaine HCl (Xylocaine 2% Inj) 50 ml STK-MED ONCE .ROUTE ; Start 12/28/16 at 15:55; Stop 12/28/16 at 15:56; Status DC Lidocaine HCl (Xylocaine 2% Viscous) 15 ml STK-MED ONCE .ROUTE ; Start 12/28/16 at 15:55; Stop 12/28/16 at 15:56; Status DC Lidocaine HCl (Xylocaine-Mpf 4% Inj) 5 ml STK-MED ONCE .ROUTE ; Start 12/28/16 at 15:55; Stop 12/28/16 at 15:56; Status DC Epinephrine HCl (Adrenalin (1:1000) Inj) 2 mg STK-MED ONCE .ROUTE ; Start at 15:55; Stop 12/28/16 at 15:56; Status DC Fentanyl Citrate (fentaNYL INJ) 250 mcg STK-MED ONCE .ROUTE Last administered on 12/28/16 16:38; Start 12/28/16 at 16:38; Stop 12/28/16 at 16:39; Status DC Midazolam HCl (Versed Inj) 4 mg STK-MED ONCE .ROUTE Last administered on 16:38; Start 12/28/16 at 16:38; Stop 12/28/16 at 16:39; Status DC Sugammadex Sodium (Bridion Inj) 400 mg STK-MED ONCE IV PUSH ; Start 12/28/16 at 17:30; Stop 12/28/16 at 17:31; Status DC Albuterol Sulfate (Albuterol Neb) 2.5 mg UNSCH X1 PRN NEB SHORTNESS OF BREATH; Start 12/28/16 at 18:15; Stop 12/29/16 at 18:14; Status DC Albuterol Sulfate (*ALBUTEROL NEB PERIprocedure ONLY) 2.5 mg STK-MED ONCE NEB Last administered on 12/28/16 18:20; Start 12/28/16 at 18:20; Stop 12/28/16 at 18:21; Status DC Fentanyl Citrate (fentaNYL INJ) 100 mcg STK-MED ONCE .ROUTE ; Start 12/28/16 at 18:27; Stop 12/28/16 at 18:28; Status DC Miscellaneous Information ALL NURSING DEPARTME... UNSCH PRN .XX SEE LABEL COMMENTS; Start 12/28/16 at 18:45; Stop 12/29/16 at 18:44; Status DC Lorazepam (Ativan Inj) 2 mg STK-MED ONCE .ROUTE ; Start 12/28/16 at 18:35; Stop 12/28/16 at 18:36; Status DC Cefepime HCl 2000 mg/Sodium Chloride 100 ml @ 200 mls/hr Q12H IV Last administered on 12/29/16 09:08; Start 12/28/16 at 21:00; Stop 12/29/16 at 22:34 ; Status DC Fluconazole/ Sodium Chloride 200 ml @ 100 mls/hr Q24H IV Last administered on 01/04/17 21:49; Start 12/28/16 at 22:00; Stop 01/05/17 at 17:06; Status DC Azithromycin 500 mg/Sodium Chloride 250 ml @ 250 mls/hr Q24H IV Last administered on 01/03/17 21:17; Start 12/28/16 at 20:00; Stop 01/04/17 at 14:48 ; Status DC Fentanyl Citrate (fentaNYL INJ) 100 mcg STK-MED ONCE .ROUTE ; Start 12/28/16 at 19:47; Stop 12/28/16 at 19:48; Status DC Vancomycin HCl 2000 mg/Sodium Chloride 520 ml @ 260 mls/hr Q12H IV Last administered on 12/30/16 16:14; Start 12/29/16 at 14:00; Stop 12/30/16 at 20:00 ; Status DC Miscellaneous Information SPECIFIC LAB TO BE DRAWN:VANCOMYCIN TROUGH DATE TO... ONCE ONCE .XX Last administered on 12/30/16 02:00; Start 12/30/16 at 01:45; Stop 12/30/16 at 01:46; Status DC Methylprednisolone Sodium Succinate (SoluMEDROL INJ) 40 mg ONCE ONCE IV PUSH Last administered on 12/29/16 22:08; Start 12/29/16 at 21:15; Stop 12/29/16 at 21:16; Status DC Methylprednisolone Sodium Succinate (SoluMEDROL INJ) 125 mg NOW ONCE IV ; Start 12/29/16 at 21:30; Stop 12/29/16 at 21:30; Status DC Allopurinol (Zyloprim) 200 mg BID PO Last administered on 01/05/17 21:47; Start 12/29/16 at 22:00; Stop 01/05/17 at 23:59; Status DC Cefepime HCl 2000 mg/Sodium Chloride 100 ml @ 200 mls/hr Q12H IV Last administered on 01/04/17 11:09; Start 12/29/16 at 23:00; Stop 01/04/17 at 14:48 ; Status DC Sodium Chloride (NS Flush) 5 ml DAILY IV FLUSH Last administered on 01/27/17 10:12; Start 12/30/16 at 09:00 Heparin Sodium (Porcine) (Heparin Central Flush) 500 units DAILY IV FLUSH Last administered on 01/27/17 10:05; Start 12/30/16 at 09:00 Sodium Chloride (NS Flush) 5 ml UNSCH PRN IV FLUSH SEE PROTOCOL TABLE; Start at 06:30 Heparin Sodium (Porcine) (Heparin Central Flush) 500 units UNSCH PRN IV FLUSH SEE PROTOCOL TABLE Last administered on 12/31/16 15:45; Start 12/30/16 at 06:30 Acetaminophen (Tylenol) 650 mg ONCE ONCE PO Last administered on 12/30/16 10: 38; Start 12/30/16 at 08:30; Stop 12/30/16 at 08:31; Status DC Diphenhydramine HCl (Benadryl) 25 mg ONCE ONCE PO Last administered on 10:37; Start 12/30/16 at 08:30; Stop 12/30/16 at 08:31; Status DC Methylprednisolone Sodium Succinate (SoluMEDROL INJ) 40 mg ONCE ONCE IV PUSH Last administered on 12/30/16 10:37; Start 12/30/16 at 10:00; Stop 12/30/16 at 10:04; Status DC Cefazolin Sodium/ Dextrose 50 ml @ 100 mls/hr [employer] IV ; Start 12/30/16 at 10:30; Stop 01/03/17 at 10:29; Status DC Methylprednisolone Sodium Succinate (SoluMEDROL INJ) 40 mg ONCE IM ; Start 12/31 at 07:00; Status UNV Granisetron HCl 1 mg/Dexamethasone Sodium Phosphate 20 mg/Sodium Chloride 56 ml @ 336 mls/hr Q24H IV Last administered on 01/07/17 04:14; Start 12/31/16 at 17:30; Stop 01/06/17 at 17:39; Status DC Midazolam HCl (Versed Inj) 4 mg STK-MED ONCE .ROUTE Last administered on 14:40; Start 12/31/16 at 14:40; Stop 12/31/16 at 14:41; Status DC Fentanyl Citrate (fentaNYL INJ) 250 mcg STK-MED ONCE .ROUTE Last administered on 12/31/16 14:40; Start 12/31/16 at 14:40; Stop 12/31/16 at 14:41; Status DC Cytarabine 200 mg/ Sodium Chloride 500 ml @ 20.833 mls/ hr Q24H IV Last administered on 01/07/17 06:27; Start 12/31/16 at 18:30; Stop 01/07/17 at 18:29 ; Status DC Daunorubicin HCl 180 mg/Sodium Chloride 136 ml @ 272 mls/hr Q24H IV Last administered on 01/03/17 01:51; Start 12/31/16 at 18:00; Stop 01/02/17 at 18:29 ; Status DC Lidocaine/ Epinephrine (Xylocaine-Epi Mpf 2%-1:200,000 Inj) 20 ml STK-MED ONCE .ROUTE Last administered on 12/31/16 15:19; Start 12/31/16 at 15:08; Stop at 15:09; Status DC Heparin Sodium (Porcine) (Heparin Central Flush) 500 units UNSCH IV FLUSH ; Start 12/31/16 at 15:45 Sodium Chloride (NS Flush) 5 ml UNSCH PRN IVF SEE PROTOCOL; Start 12/31/16 at 15:45 Heparin Sodium (Porcine) (Heparin Central Flush) 250 units UNSCH PRN IV FLUSH SEE PROTOCOL; Start 12/31/16 at 15:45 Methylprednisolone Sodium Succinate (SoluMEDROL INJ) 40 mg ONCE ONCE IV Last administered on 12/31/16 21:09; Start 12/31/16 at 17:00; Stop 12/31/16 at 17:01 ; Status DC Sodium Chloride 1,000 ml @ 42 mls/hr [id number] IV Last administered on 17:34; Start 01/02/17 at 12:45; Stop 01/08/17 at 11:33; Status DC Promethazine HCl (Phenergan) 25 mg Q4H PRN PO nausea or vomitting Last administered on 01/14/17 03:49; Start 01/04/17 at 10:15; Stop 01/14/17 at 16:35; Status DC Levofloxacin (Levaquin) 750 mg DAILY@1100 PO Last administered on 01/05/17 10: 54; Start 01/04/17 at 16:00; Stop 01/06/17 at 12:33; Status DC Calcium Chloride 1 gm/Dextrose 110 ml @ 110 mls/hr ONCE ONCE IV Last administered on 01/04/17 23:43; Start 01/04/17 at 23:00; Stop 01/04/17 at 23:59 ; Status DC Dicyclomine HCl (Bentyl) 20 mg TID PO Last administered on 01/10/17 09:52; Start 01/05/17 at 10:00; Stop 01/10/17 at 10:54; Status DC Sodium Chloride 500 ml @ 250 mls/hr Q2H ONCE IV Last administered on 14:07; Start 01/05/17 at 13:45; Stop 01/05/17 at 15:44; Status DC Ondansetron HCl (Zofran Inj) 4 mg Q8HR IV PUSH Last administered on 01/08/17 05 :22; Start 01/06/17 at 06:00; Stop 01/08/17 at 06:00; Status DC Allopurinol (Zyloprim) 200 mg DAILY PO Last administered on 01/28/17 08:38; Start 01/06/17 at 09:00; Stop 01/28/17 at 21:35; Status DC Calcium Chloride 1 gm/Sodium Chloride 110 ml @ 110 mls/hr ONCE ONCE IV Last administered on 01/06/17 09:35; Start 01/06/17 at 08:30; Stop 01/06/17 at 09:29 ; Status DC Hyoscyamine Sulfate (Levsin) 0.25 mg Q4H PRN PO CRAMPS Last administered on 10:06; Start 01/06/17 at 09:30; Stop 01/23/17 at 13:13; Status DC Morphine Sulfate (Morphine Inj) 2 mg NOW ONCE IV Last administered on 13:15; Start 01/06/17 at 13:15; Stop 01/06/17 at 13:16; Status DC Calcium Chloride 1 gm/Sodium Chloride 110 ml @ 110 mls/hr ONCE ONCE IV Last administered on 01/06/17 19:01; Start 01/06/17 at 15:00; Stop 01/06/17 at 15:59 ; Status DC Iohexol (Omnipaque 350 Inj) 81 ml STK-MED ONCE IVCONTRAST Last administered on 01/06/17 15:27; Start 01/06/17 at 15:27; Stop 01/06/17 at 15:28; Status DC Oxycodone HCl (Roxicodone) 5 mg ONCE ONCE PO ; Start 01/06/17 at 19:00; Stop at 19:01; Status Cancel Oxycodone HCl (Roxicodone) 5 mg Q6H PRN PO pain; Start 01/06/17 at 18:15; Stop 01/06/17 at 18:42; Status DC Hydromorphone HCl (Dilaudid Pf Inj) 0.5 mg ONCE ONCE IV Last administered on 19:00; Start 01/06/17 at 19:00; Stop 01/06/17 at 19:01; Status DC Oxycodone HCl (Roxicodone) 5 mg Q4H PRN PO PAIN 1-10 Last administered on 22:51; Start 01/06/17 at 19:00; Stop 01/09/17 at 12:32; Status DC Hydromorphone HCl (Dilaudid Pf Inj) 1 mg Q4H PRN IV PAIN SCALE 1 TO 10 Last administered on 01/08/17 02:12; Start 01/06/17 at 23:15; Stop 01/08/17 at 02:41; Status DC Sodium Chloride 1,000 ml @ 999 mls/hr BOLUS ONCE IV Last administered on 01/07 10:15; Start 01/07/17 at 10:00; Stop 01/07/17 at 11:00; Status DC Sodium Chloride 1,000 ml @ 75 mls/hr [id number] IV Last administered on 01/13/17 14:23; Start 01/07/17 at 14:00; Stop 01/13/17 at 14:51; Status DC Hydromorphone HCl (Dilaudid Pf Inj) 1 mg Q3H PRN IV PAIN SCALE 1 TO 10 Last administered on 01/08/17 08:12; Start 01/08/17 at 02:45; Stop 01/08/17 at 11:58; Status DC Hydromorphone HCl (Dilaudid Pf Inj) 1.5 mg ONCE ONCE IV PUSH Last administered on 01/08/17 11:44; Start 01/08/17 at 11:15; Stop 01/08/17 at 11:18; Status DC Sodium Chloride 250 ml @ 15 mls/hr ONCE ONCE IV Last administered on 16:30; Start 01/08/17 at 11:30; Stop 01/09/17 at 04:09; Status DC Acetaminophen (Tylenol) 650 mg Q4H PRN PO SEE LABEL COMMENTS; Start 01/08/17 at 11:30; Status Cancel Diphenhydramine HCl (Benadryl) 25 mg Q4H PRN PO SEE LABEL COMMENTS; Start at 11:30; Status Cancel Hydromorphone HCl (Dilaudid Pf Inj) 1.5 mg Q3H PRN IV PAIN SCALE 1 TO 10 Last administered on 01/09/17 11:17; Start 01/08/17 at 14:45; Stop 01/09/17 at 12:32; Status DC Iohexol (Omnipaque 350 Inj) 100 ml STK-MED ONCE IVCONTRAST Last administered on 01/08/17 14:41; Start 01/08/17 at 14:41; Stop 01/08/17 at 14:43; Status DC Pantoprazole Sodium (Protonix) 20 mg BID PO Last administered on 01/09/17 08:51 ; Start 01/08/17 at 21:00; Stop 01/09/17 at 13:51; Status DC Sodium Chloride 250 ml @ 15 mls/hr ONCE ONCE IV ; Start 01/09/17 at 08:15; Stop 01/10/17 at 00:54; Status DC Oxycodone HCl (Roxicodone) 10 mg ONCE ONCE PO Last administered on 01/09/17 09 :24; Start 01/09/17 at 09:00; Stop 01/09/17 at 09:17; Status DC Hydromorphone HCl (Dilaudid Pf Inj) 2 mg Q3H PRN IV PAIN SCALE 1 TO 10 Last administered on 01/11/17 13:34; Start 01/09/17 at 14:45; Stop 01/11/17 at 13:42; Status DC Hydromorphone HCl (Dilaudid Pf Inj) 2 mg ONCE ONCE IV PUSH Last administered on 01/09/17 13:16; Start 01/09/17 at 13:00; Stop 01/09/17 at 13:07; Status DC Pantoprazole Sodium (Protonix Inj) 40 mg Q12HR IV PUSH Last administered on 01/11 08:05; Start 01/09/17 at 14:00; Stop 01/11/17 at 15:02; Status DC Sucralfate (Carafate Liq) 1 gm ACHS PO Last administered on 01/28/17 20:16; Start 01/09/17 at 16:00 Piperacillin Sod/ Tazobactam Sod 100 ml @ 200 mls/hr Q8H IV Last administered on 01/13/17 15:51; Start 01/09/17 at 15:00; Stop 01/13/17 at 19:46; Status DC Sodium Chloride 250 ml @ 15 mls/hr ONCE ONCE IV Last administered on 10:20; Start 01/10/17 at 08:00; Stop 01/11/17 at 00:39; Status DC Oxycodone HCl (Roxicodone) 10 mg ONCE ONCE PO Last administered on 01/10/17 11 :12; Start 01/10/17 at 11:00; Stop 01/10/17 at 11:01; Status DC Lactobacillus Acidophilus (Lactinex) 1 tab TID PO Last administered on 12:57; Start 01/10/17 at 18:00; Stop 01/13/17 at 14:38; Status DC Oxycodone HCl (Roxicodone) 10 mg ONCE ONCE PO Last administered on 01/11/17 09 :32; Start 01/11/17 at 08:15; Stop 01/11/17 at 08:26; Status DC Hydromorphone HCl (Dilaudid Pf Inj) 2 mg Q2H PRN IV PAIN SCALE 1 TO 10 Last administered on 01/11/17 15:56; Start 01/11/17 at 13:45; Stop 01/12/17 at 08:06; Status DC Pantoprazole Sodium 80 mg/ Sodium Chloride 100 ml @ 10 mls/hr CONTINUOUS IV Last administered on 01/22/17 09:56; Start 01/11/17 at 16:00; Stop 01/23/17 at 09:58; Status DC Naloxone HCl (Narcan Inj) 0.4 mg UNSCH PRN IV RESPIRATORY RATE LESS THAN 10; Start 01/11/17 at 15:15; Stop 01/22/17 at 09:43; Status DC Hydromorphone HCl (Dilaudid [employer] Inj) 6 mg UNSCH IV Last administered on 09:11; Start 01/11/17 at 15:15; Stop 01/22/17 at 09:43; Status DC [employer] Dosage Infused (Pha) 1 Q8HR OTHER Last administered on 01/22/17 06:00; Start 01/11/17 at 15:45; Stop 01/22/17 at 09:43; Status DC Ondansetron HCl (Zofran Inj) 8 mg Q8H PRN IV PUSH NAUSEA Last administered on 12:51; Start 01/11/17 at 17:15; Status Future hold Hydromorphone HCl (Dilaudid Pf Inj) 1 mg ONCE ONCE IV PUSH Last administered on 01/12/17 02:37; Start 01/12/17 at 02:30; Stop 01/12/17 at 02:31; Status DC Propofol (Diprivan 200 Mg/20 ml Inj) 400 mg STK-MED ONCE IV ; Start 12/28/16 at 12:00; Stop 01/12/17 at 08:23; Status DC Sodium Chloride 250 ml @ 15 mls/hr ONCE ONCE IV Last administered on 10:00; Start 01/12/17 at 10:00; Stop 01/13/17 at 02:39; Status DC Hydromorphone HCl (Dilaudid Pf Inj) 2 mg STAT ONCE IV PUSH Last administered on 01/12/17 11:09; Start 01/12/17 at 11:00; Stop 01/12/17 at 11:01; Status DC Gadodiamide (Omniscan Pf Inj) 30 ml STK-MED ONCE IV PUSH Last administered on 10:51; Start 01/12/17 at 10:51; Stop 01/12/17 at 10:52; Status DC Hydromorphone HCl (Dilaudid Pf Inj) 2 mg Q4H PRN IV PUSH SEVERE BREAKTHROUGH PAIN Last administered on 01/25/17 05:11; Start 01/12/17 at 15:30; Stop at 09:49; Status DC Sodium Chloride 250 ml @ 15 mls/hr ONCE ONCE IV Last administered on 08:30; Start 01/13/17 at 08:30; Stop 01/14/17 at 01:09; Status DC Metronidazole 100 ml @ 100 mls/hr Q6H IV ; Start 01/13/17 at 11:15; Stop at 11:15; Status DC Ciprofloxacin/ Dextrose 200 ml @ 200 mls/hr Q12H IV ; Start 01/13/17 at 11:15; Stop 01/13/17 at 11:15; Status DC Potassium Chloride (KCl) 40 meq ONCE ONCE PO Last administered on 01/13/17 14: 23; Start 01/13/17 at 13:00; Stop 01/13/17 at 13:59; Status DC Potassium Chloride/Sodium Chloride 1,000 ml @ 100 mls/hr Q10H IV Last administered on 01/13/17 20:00; Start 01/13/17 at 15:00; Stop 01/15/17 at 13:26; Status DC Piperacillin Sod/ Tazobactam Sod 100 ml @ 200 mls/hr Q6H IV Last administered on 01/21/17 15:00; Start 01/13/17 at 21:00; Stop 01/21/17 at 19:56; Status DC Pharmacy Profile Note 0 ml @ 0 mls/hr UNSCH OTHER ; Start 01/13/17 at 19:45; Stop 01/21/17 at 19:56; Status DC Vancomycin HCl 2000 mg/Sodium Chloride 520 ml @ 250 mls/hr Q12H IV Last administered on 01/14/17 10:31; Start 01/13/17 at 21:00; Stop 01/14/17 at 12:26; Status DC Miscellaneous Information SPECIFIC LAB TO BE JASKARAN... ONCE ONCE .XX Last administered on 01/16/17 08:45; Start 01/16/17 at 08:45; Stop 01/16/17 at 08:46; Status DC Sodium Chloride 250 ml @ 15 mls/hr ONCE ONCE IV ; Start 01/14/17 at 08:45; Stop 01/15/17 at 01:24; Status DC Ketamine HCl (Ketalar Inj) 500 mg STK-MED ONCE .ROUTE ; Start 01/14/17 at 09:18; Stop 01/14/17 at 09:19; Status DC Propofol (Diprivan 200 Mg/20 ml Inj) 100 mg STK-MED ONCE IV PUSH ; Start at 09:30; Stop 01/14/17 at 10:03; Status DC Fluconazole/ Sodium Chloride 200 ml @ 100 mls/hr Q24H IV Last administered on 01/20/17 10:57; Start 01/14/17 at 12:00; Stop 01/20/17 at 19:49; Status DC Nystatin (Mycostatin Liq) 5 ml QID SWISH-SWAL Last administered on 01/23/17 08:50; Start 01/14/17 at 13:00; Stop 01/23/17 at 12:27; Status DC Vancomycin HCl 2500 mg/Sodium Chloride 525 ml @ 250 mls/hr Q12H IV Last administered on 01/16/17 12:22; Start 01/14/17 at 21:00; Stop 01/16/17 at 13:02; Status DC Potassium Chloride 100 ml @ 25 mls/hr Q4H IV Last administered on 01/14/17 17: 54; Start 01/14/17 at 14:00; Stop 01/14/17 at 21:59; Status DC Promethazine HCl (Phenergan Inj) 12.5 mg STAT STAT IV-CENTRAL Last administered on 01/14/17 14:23; Start 01/14/17 at 14:11; Stop 01/14/17 at 14:15; Status DC Promethazine HCl (Phenergan Inj) 12.5 mg Q4H PRN IV-CENTRAL nausea Last administered on 01/20/17 12:00; Start 01/14/17 at 16:45; Stop 01/25/17 at 14:44 ; Status DC Multi-Ingredient Mouthwash/Gargle (Magic Mouthwash Adult Liq) 10 ml QID PRN SWISH-SWAL sore throat Last administered on 01/21/17 09:45; Start 01/15/17 at 06 :30; Stop 01/25/17 at 14:44; Status DC Benzocaine/Menthol (Chloraseptic Sanjay) 1 lozenge UNSCH PRN BUCCAL sore throat; Start 01/15/17 at 06:30; Stop 01/25/17 at 14:44; Status DC Sodium Chloride 250 ml @ 15 mls/hr ONCE ONCE IV Last administered on 16:16; Start 01/15/17 at 07:45; Stop 01/16/17 at 00:24; Status DC Sodium Chloride 250 ml @ 15 mls/hr ONCE ONCE IV ; Start 01/15/17 at 07:45; Stop 01/16/17 at 00:24; Status DC Potassium Phosphate 30 mmol/ Sodium Chloride 260 ml @ 43.333 mls/ hr ONCE ONCE IV Last administered on 01/15/17 11:01; Start 01/15/17 at 09:00; Stop at 14:59; Status DC Diphenhydramine HCl (Benadryl Inj) 25 mg ONCE ONCE IV PUSH Last administered on 01/15/17 08:38; Start 01/15/17 at 08:15; Stop 01/15/17 at 08:16; Status DC Iohexol (Omnipaque 350 Inj) 92 ml STK-MED ONCE IVCONTRAST ; Start 01/15/17 at 10: 17; Stop 01/15/17 at 10:18; Status DC Potassium Chloride/Dextrose/ Sod Cl 1,000 ml @ 84 mls/hr [id number] IV Last administered on 01/17/17 01:44; Start 01/15/17 at 13:30; Stop 01/17/17 at 08:38 ; Status DC Sodium Chloride 250 ml @ 15 mls/hr ONCE ONCE IV Last administered on 13:00; Start 01/16/17 at 13:00; Stop 01/17/17 at 05:39; Status DC Acetaminophen (Tylenol) 650 mg Q4H PRN PO SEE LABEL COMMENTS Last administered on 01/17/17 14:20; Start 01/16/17 at 13:00; Stop 01/17/17 at 14:20; Status DC Diphenhydramine HCl (Benadryl) 25 mg Q4H PRN PO SEE LABEL COMMENTS Last administered on 01/17/17 14:20; Start 01/16/17 at 13:00; Stop 01/17/17 at 14:20 ; Status DC Vancomycin HCl 2000 mg/Sodium Chloride 520 ml @ 250 mls/hr Q8H IV Last administered on 01/19/17 15:08; Start 01/16/17 at 20:00; Stop 01/19/17 at 21:47 ; Status DC Miscellaneous Information SPECIFIC LAB TO BE DRAWN:VANCO TROUGH DATE TO... ONCE ONCE .XX Last administered on 01/17/17 11:05; Start 01/17/17 at 11:45; Stop 01/17/17 at 11:46; Status DC Potassium Chloride 100 ml @ 50 mls/hr Q2H IV Last administered on 01/17/17 08 :26; Start 01/16/17 at 22:45; Stop 01/17/17 at 04:44; Status DC Potassium Chloride 100 ml @ As Directed STK-MED ONCE .ROUTE ; Start 01/17/17 at 08:25; Stop 01/17/17 at 08:26; Status DC Potassium Chloride/Dextrose/ Sod Cl 1,000 ml @ 84 mls/hr [id number] IV Last administered on 01/22/17 09:56; Start 01/17/17 at 13:30; Stop 01/25/17 at 09:49 ; Status DC Aminocaproic Acid (Amicar) 1,000 mg Q6HR PO Last administered on 01/22/17 06: 17; Start 01/17/17 at 12:00; Stop 01/22/17 at 09:33; Status DC Sodium Chloride 250 ml @ 15 mls/hr ONCE ONCE IV ; Start 01/17/17 at 13:00; Stop 01/18/17 at 05:39; Status DC Potassium Phosphate (K-Phos) 1,000 mg ONCE ONCE PO Last administered on 12:41; Start 01/17/17 at 13:00; Stop 01/17/17 at 13:01; Status DC Calcium Gluconate 1 gm/Sodium Chloride 110 ml @ 110 mls/hr NOW ONCE IV Last administered on 01/17/17 17:12; Start 01/17/17 at 15:45; Stop 01/17/17 at 16:44 ; Status DC Potassium Chloride 100 ml @ 50 mls/hr Q2H IV Last administered on 01/18/17 12 :22; Start 01/17/17 at 21:00; Stop 01/18/17 at 04:59; Status DC Diphenhydramine HCl (Benadryl) 25 mg Q4H PRN PO SEE LABEL COMMENTS Last administered on 01/18/17 04:53; Start 01/18/17 at 05:00; Stop 01/18/17 at 08:00 ; Status DC Potassium Chloride 100 ml @ As Directed STK-MED ONCE .ROUTE ; Start 01/18/17 at 09:38; Stop 01/18/17 at 09:39; Status DC Acetaminophen (Tylenol) 650 mg Q6H PRN PO WHILE BLOOD INFUSING Last administered on 01/19/17 11:31; Start 01/18/17 at 10:00; Stop 01/25/17 at 14:44 ; Status DC Diphenhydramine HCl (Benadryl) 25 mg Q4H PRN PO WHILE BLOOD INFUSING Last administered on 01/19/17 11:31; Start 01/18/17 at 10:00; Stop 01/25/17 at 14:44 ; Status DC Potassium Phosphate 30 mmol/ Sodium Chloride 260 ml @ 43.333 mls/ hr ONCE ONCE IV Last administered on 01/18/17 16:29; Start 01/18/17 at 14:00; Stop 03/26 at 19:59; Status DC Potassium Chloride 100 ml @ As Directed STK-MED ONCE .ROUTE ; Start 01/18/17 at 12:15; Stop 01/18/17 at 12:16; Status DC Miscellaneous Information SPECIFIC LAB TO BE ... ONCE ONCE .XX Last administered on 01/19/17 19:45; Start 01/19/17 at 19:45; Stop 01/19/17 at 19:46 ; Status DC Potassium Chloride (KCl) 20 meq Q12HR PO Last administered on 01/24/17 09:45; Start 01/19/17 at 09:30; Stop 01/25/17 at 12:03; Status DC Acetaminophen (Tylenol) 650 mg Q4H PRN PO SEE LABEL COMMENTS; Start 01/20/17 at 06:00; Stop 01/25/17 at 14:44; Status DC Diphenhydramine HCl (Benadryl) 25 mg Q4H PRN PO SEE LABEL COMMENTS; Start 01/20 at 06:00; Stop 01/25/17 at 14:44; Status DC Sodium Chloride 250 ml @ 15 mls/hr ONCE ONCE IV ; Start 01/19/17 at 12:00; Stop 01/20/17 at 04:39; Status DC Oxymetazoline HCl (Afrin 0.05% Freddie Makanda) 2 spray ONCE STAT NASAL ; Start 01/19 at 11:49; Stop 01/19/17 at 12:00; Status DC Aminocaproic Acid 2000 mg/Sodium Chloride 230 ml @ 250 mls/hr ONCE STAT IV ; Start 01/19/17 at 11:49; Stop 01/19/17 at 12:13; Status DC Aminocaproic Acid 2000 mg/Sodium Chloride 250 ml @ 250 mls/hr ONCE STAT IV ; Start 01/19/17 at 12:13; Stop 01/19/17 at 12:23; Status DC Aminocaproic Acid 2000 mg/Sodium Chloride 250 ml @ 250 mls/hr ONCE STAT IV Last administered on 01/19/17 13:06; Start 01/19/17 at 12:23; Stop 01/19/17 at 13:22; Status DC Vancomycin HCl 1500 mg/Sodium Chloride 515 ml @ 257.5 mls/ hr Q8H IV Last administered on 01/20/17 13:29; Start 01/20/17 at 00:00; Stop 01/20/17 at 15:45 ; Status DC Miscellaneous Information SPECIFIC LAB TO BE DRAWN:VANCO TROUGH DATE TO BE DR..Dexter ONCE ONCE .XX ; Start 01/20/17 at 15:45; Stop 01/20/17 at 15:45; Status DC Vancomycin HCl 1500 mg/Sodium Chloride 515 ml @ 257.5 mls/ hr Q8H IV Last administered on 01/21/17 06:30; Start 01/20/17 at 21:00; Stop 01/21/17 at 19:56 ; Status DC Miscellaneous Information SPECIFIC LAB TO BE DRAWN:VANCOMYCIN TROUGH DATE TO... ONCE ONCE .XX Last administered on 01/21/17 04:45; Start 01/21/17 at 04:45; Stop 01/21/17 at 04:46; Status DC Fluconazole (Diflucan 40 Mg/ ml Liq) 200 mg DAILY PO ; Start 01/20/17 at 19:45; Stop 01/20/17 at 19:48; Status DC Fluconazole (Diflucan 40 Mg/ ml Liq) 200 mg DAILY PO Last administered on 08:38; Start 01/21/17 at 09:00; Stop 01/27/17 at 09:00; Status DC Potassium Chloride (KCl) 20 meq ONCE ONCE PO ; Start 01/21/17 at 10:00; Stop at 11:03; Status DC Miscellaneous Information SPECIFIC LAB TO BE .. ONCE ONCE .XX ; Start 01/22 at 12:45; Stop 01/22/17 at 12:46; Status DC Lidocaine HCl (Xylocaine 1% Inj) 20 ml STK-MED ONCE .ROUTE Last administered on 01/22/17 12:16; Start 01/22/17 at 12:16; Stop 01/22/17 at 12:17; Status DC Fentanyl Citrate (fentaNYL INJ) 100 mcg STK-MED ONCE .ROUTE Last administered on 01/22/17 12:24; Start 01/22/17 at 12:24; Stop 01/22/17 at 12:25; Status DC Fentanyl Citrate (fentaNYL INJ) 100 mcg STK-MED ONCE .ROUTE Last administered on 01/22/17 12:24; Start 01/22/17 at 12:24; Stop 01/22/17 at 12:25; Status DC Midazolam HCl (Versed Inj) 5 mg STK-MED ONCE .ROUTE Last administered on 12:24; Start 01/22/17 at 12:24; Stop 01/22/17 at 12:25; Status DC Oxycodone HCl (Roxicodone) 5 mg Q4H PRN PO PAIN3-9 Last administered on 12:39; Start 01/23/17 at 08:15; Stop 01/26/17 at 16:10; Status DC Pantoprazole Sodium (Protonix Inj) 40 mg Q12HR IV PUSH Last administered on 20:16; Start 01/23/17 at 11:00 Alteplase, Recombinant (Cathflo Activase Inj) 2 mg Q2H PRN INTRACATH clotted catheter Last administered on 01/24/17 09:46; Start 01/24/17 at 08:45 Hydromorphone HCl (Dilaudid Pf Inj) 2 mg Q8H PRN IV PUSH SEVERE BREAKTHROUGH PAIN Last administered on 01/26/17 10:48; Start 01/25/17 at 10:00; Stop at 16:10; Status DC Potassium Bicarb/ Potassium Chloride (K-Lyte Cl Eff) 25 meq DAILY NG Last administered on 01/25/17 13:16; Start 01/25/17 at 12:15; Stop 01/25/17 at 14:44 ; Status DC Docusate Sodium (Colace) 100 mg TID PO Last administered on 01/28/17 16:53; Start 01/25/17 at 18:00 Iohexol (Omnipaque 350 Inj) 100 ml STK-MED ONCE IVCONTRAST Last administered on 01/26/17 14:08; Start 01/26/17 at 14:08; Stop 01/26/17 at 14:09; Status DC Oxycodone HCl (Roxicodone) 5 mg Q4H PRN PO PAIN SCALE 1 TO 5 Last administered on 01/27/17 04:40; Start 01/26/17 at 16:15 Hydromorphone HCl (Dilaudid Pf Inj) 2 mg Q4H PRN IV PUSH PAIN SCALE 6 TO 10 Last administered on 01/27/17 06:08; Start 01/26/17 at 16:15; Stop 01/27/17 at 07:47; Status DC Oxycodone HCl (Roxicodone) 10 mg Q4H PRN PO PAIN 6-10 Last administered on 01/28 16:54; Start 01/27/17 at 07:45 Hydromorphone HCl (Dilaudid Pf Inj) 1 mg Q4H PRN IV PUSH BREAKTHROUGH PAIN Last administered on 01/28/17 20:17; Start 01/27/17 at 07:45 Trimethoprim/ Sulfamethoxazole (Bactrim Ds 800-160 Mg) 1 tab MoWeFr@09 PO ; Start 01/29/17 at 09:00 Acyclovir (Zovirax) 400 mg Q12HR PO Last administered on 01/28/17 20:17; Start 01/28/17 at 09:00 A/P Assessment and Plan A/P - AML started on induction chemotherapy per oncology. repeated BM biopsy with no evidence of AML. port placement by IR completed 12/31/16. cleared by oncology for discharge with outpatient follow-up. will D/C home with Bactrim DS [id number]. Cipro 250mg Wednesday/ and Wednesday. Acyclovir 400mg PO BID - tachycardia; better- no chest pain or sob- CTA chest negative for PE- continue to monitor -neutropenic fever- resolved- off antibiotics- evaluated by ID. 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 now has much improved. s/p EGD with esophageal candidiasis, esophageal ulcer and gastritis. continue diflucan, PPI and Carafate. GI follow-up appreciated and signed off. MRI negative for acute findings. Splenic hemangiomas noted. continue with pain control; oxycodone was added- --thrombocytopenia - 2/2 AML-resolved. --Prolonged immobilization. Doppler studies negative for DVT. PT/OT eval/tx. Discharge Planning dc home today with f/u by pcp and oncology and GI. case management for [facility]. see med list. d/w the patient and oncology. time spent 35 min. Dacia Watkins MD Jan 29, 2017 08:11
[2017-01-29] MEDS ORDERED: SUCR1S PO (08:15)
[2017-01-29] MEDS ORDERED: PANT40P IV PUSH (08:15)
[2017-01-29] MEDS ORDERED: OXYC-392 PO (08:15)
[2017-01-29] MEDS ORDERED: SULF1TAB23 PO (08:15)
[2017-01-29] MEDS ORDERED: ACYC200C66 PO (08:15)
--- NOTE | 2017-01-29 08:17 | HHI.DS ---
Discharge Summary Admission Date Dec 25, 2016 at 21:42 Discharge Date: Jan 29, 2017 Admitting Diagnosis lymphocytosis, neutropenia, thrombocytopenia, fever (1) SIRS (systemic inflammatory response syndrome) ICD Code: R65.10 - Systemic inflammatory response syndrome (SIRS) of non- infectious origin without acute organ dysfunction Diagnosis: Principal Status: Acute (2) GABRIELA (acute kidney injury) ICD Code: N17.9 - Acute kidney failure, unspecified Diagnosis: Principal Status: Acute (3) Thrombocytopenia ICD Code: D69.6 - Thrombocytopenia, unspecified Diagnosis: Principal Status: Acute (4) Lymphocytosis ICD Code: D72.820 - Lymphocytosis (symptomatic) Diagnosis: Principal Status: Acute (5) Anemia ICD Code: D64.9 - Anemia, unspecified Diagnosis: Principal Status: Acute (6) AML (acute myelogenous leukemia) ICD Code: C92.00 - Acute myeloblastic leukemia, not having achieved remission Diagnosis: Principal Procedures 12/31 Vgigvr-b-Xwlu placement bone marrow biopsy Brief History - From Admission This is a 26-year-old male with no significant PMH was brought to the ER secondary to episode of AMS. Upon arrival, patient unable to provide any history secondary to confusion, however at the time of my exam, patient is awake , alert and oriented. 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 Shortly afterwards, Striper Spray Gun noted patient to be very confused, not making sense. On arrival, BP 149/85, HR 121, O2 sat 94% on RA, Temp 101.7. WBC 10. Hemoglobin 9.1. Platelets 77. Lymphocytes 48%. Creatinine 1.40, producing 1.28 on 11/14/16. Lactic Acid 1.9. UA negative. CXR with no acute findings. CT Head negative. Patient denies any recent sick contacts, although does report having productive cough for approximately 1 month. CBC/BMP: 01/28/17 0606 01/27/17 0443 Significant Findings Laboratory Tests Test 01/26/17 11:04 01/27/17 04:43 01/28/17 06:06 Troponin I LESS THAN 0.02 NG/ML Red Blood Count 2.81 MIL/MM3 (4.50-5.90) 2.95 MIL/MM3 (4.50-5.90) Hemoglobin 8.3 GM/DL (13.0-17.0) 8.9 GM/DL (13.0-17.0) Hematocrit 24.3 % (39.0-51.0) 25.5 % (39.0-51.0) Platelet Count 566 TH/MM3 (150-450) 596 TH/MM3 (150-450) Monocytes (%) (Auto) 16.3 % (0.0-8.0) Basophils (%) (Auto) 2.4 % (0.0-2.0) Monocytes # (Auto) 1.0 TH/MM3 (0-0.9) Band Neutrophils % 7 % (0-6) Monocytes % 14 % (0-8) 13 % (0-8) Myelocytes 4 % (0-0) 1 % (0-0) Nucleated Red Blood Cells 1 /100 WBC (0-0) 2 /100 WBC (0-0) Blastocytes 1 % (0-0) Platelet Estimate HIGH (NORMAL) HIGH (NORMAL) Carbon Dioxide Level 33.0 MEQ/L (21.0-32.0) Metamyelocytes 4 % (0-1) Platelet Morphology Comment ENLARGED (NORMAL) Polychromasia 2.0 % (0.0-1.9) Ovalocytes 1+ (NORMAL) Fibrinogen 449 mg/dL (227-377) Imaging Last Impressions [facility] 01/27/17 0000 Signed Impressions: Service Date/Time: Friday, January 27, 2017 00:00 - CONCLUSION: EF 52%%. Richy Bonner MD FACR CT Angiography 01/26/17 0000 Signed Impressions: Service Date/Time: Thursday, January 26, 2017 13:53 - CONCLUSION: 1. No pulmonary embolus identified. 2. There are some small, nonspecific nodes in the right paratracheal region. There is a small node in the subcarinal anaya chain as well. Nilson Bonner MD Bone Biopsy CT 01/22/17 0000 Signed Impressions: Service Date/Time: Sunday, January 22, 2017 13:16 - CONCLUSION: 1. Uncomplicated CT guided bone marrow aspirate. 2. Uncomplicated CT guided bone marrow biopsy. Garcia Tello MD Upper Extremity Ultrasound 01/19/17 0000 Signed Impressions: Service Date/Time: Thursday, January 19, 2017 08:07 - CONCLUSION: Negative for DVT . Richy Bonner MD FACR Neck CT 01/15/17 0806 Signed Impressions: Service Date/Time: Sunday, January 15, 2017 09:54 - CONCLUSION: Mild sinusitis within the maxillary sinuses, slight scarring right apex of the lung. Patricia Contreras MD Chest CT 01/15/17 0806 Signed Impressions: Service Date/Time: Sunday, January 15, 2017 09:58 - CONCLUSION: Left lung infiltrate has resolved and there is improvement in right lung infiltrates with residual infiltrate remaining. Patricia Contreras MD Abdomen X-Ray 01/13/17 1451 Signed Impressions: Service Date/Time: Friday, January 13, 2017 15:41 - CONCLUSION: Moderate gaseous distention of large and small bowel with appearance most suggestive of ileus Audie Gomez MD Abdomen MRI 01/12/17 0000 Signed Impressions: Service Date/Time: Thursday, January 12, 2017 09:47 - CONCLUSION: No evidence of acute abdominal process. Splenic hemangiomas Humza Decker MD Lower Extremity Ultrasound 01/10/17 0000 Signed Impressions: Service Date/Time: Tuesday, January 10, 2017 21:50 - CONCLUSION: Negative exam with no evidence of deep venous thrombosis. Jose Nicholson MD Hepatobiliary Scan Nuclear Medicine 01/09/17 0000 Signed Impressions: Service Date/Time: Monday, January 09, 2017 10:01 - CONCLUSION: 1. The patient refused imaging beyond 45 minutes. There is activity seen within small bowel and gallbladder with no evidence for cystic duct obstruction. Danie Kelly MD Abdomen/Pelvis CT 01/08/17 0000 Signed Impressions: Service Date/Time: Sunday, January 08, 2017 14:43 - CONCLUSION: 1. No evidence of mesenteric artery stenosis 2. Small amount of free fluid is present in the pelvis Humza Decker MD Abdomen Ultrasound 01/07/17 0000 Signed Impressions: Service Date/Time: , January 07, 2017 01:11 - CONCLUSION: 1. No acute findings. Liver enlarged. Spleen mildly prominent at 14 cm. Leander Fiore MD Chest X-Ray 01/03/17 0600 Signed Impressions: Service Date/Time: Tuesday, January 03, 2017 04:42 - CONCLUSION: Normal examination. Right IJ Cbejxu-a-Nhbv catheter in excellent position. Lungs are clear. Enrique Ramos MD Port Line Insertion 12/31/16 0000 Signed Impressions: Service Date/Time: December 15:15 - CONCLUSION: Uncomplicated ultrasound and fluoroscopic guided implanted central venous port catheter placement as described in detail above. An 8 [place] [employer] port was placed. Nilson Bonner MD Brain MRI 12/27/16 0000 Signed Impressions: Service Date/Time: Tuesday, December 27, 2016 21:58 - CONCLUSION: Unremarkable study. Patricia Contreras MD Lumbar Puncture Fluoroscopy 12/26/16 0000 Signed Impressions: Service Date/Time: Monday, December 26, 2016 17:03 - CONCLUSION: Uncomplicated fluoroscopically guided lumbar puncture with pressures as above. Nilson Bonner MD Head CT 12/25/16 1941 Signed Impressions: Service Date/Time: Sunday, December 25, 2016 19:50 - CONCLUSION: Negative noncontrast head CT. Audie Maria MD PE at Discharge GENERAL: This is a well-nourished, well-developed patient, in no apparent distress. CARDIOVASCULAR: Regular rate and regular rhythm without murmurs, gallops, or rubs. RESPIRATORY: Clear to auscultation. Breath sounds equal bilaterally. No wheezes , rales, or rhonchi. GASTROINTESTINAL: Abdomen soft, non-tender, nondistended. Normal, active bowel sounds MUSCULOSKELETAL: Extremities without clubbing, cyanosis, or edema. NEURO: Alert & Oriented x4 to person, place, time, situation. Moves all ext x4 Hospital Course - AML started on induction chemotherapy per oncology. repeated BM biopsy with no evidence of AML. port placement by IR completed 12/31/16. cleared by oncology for discharge with outpatient follow-up. will D/C home with Bactrim DS [id number]-Uamqpo. Cipro 250mg Wednesday/ and Wednesday. Acyclovir 400mg PO BID - tachycardia; better- no chest pain or sob- CTA chest negative for PE- continue to monitor -neutropenic fever- resolved- off antibiotics- evaluated by ID. 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 now has much improved. s/p EGD with esophageal candidiasis, esophageal ulcer and gastritis. continue diflucan, PPI and Carafate. GI follow-up appreciated and signed off. MRI negative for acute findings. Splenic hemangiomas noted. continue with pain control; oxycodone was added- --thrombocytopenia - 2/2 AML-resolved. --Prolonged immobilization. Doppler studies negative for DVT. PT/OT eval/tx. Pt Condition on Discharge: Good Discharge Disposition: Disch w/ Home Health Serv Discharge Time: > 30 minutes Discharge Instructions DIET: Follow Instructions for: Heart Healthy Diet Activities you can perform: Regular-No Restrictions Follow up Referrals: Gastroenterology - 1 Week with Emma De Luna MD Oncology/Hematology - 1 Week with Joey Santoyo MD PCP Follow-up New Medications: Ciprofloxacin (Cipro) 250 Mg Tab 250 MG PO DAILY on ,kari,sat for Infection for 30 Days, TAB 0 Refills Pantoprazole (Protonix) 40 Mg Tab 40 MG PO DAILY for Reflux for 30 Days, #30 TAB 0 Refills Acyclovir (Acyclovir) 200 Mg Cap 400 MG PO Q12HR for antiviral for 30 Days, CAP 0 Refills Oxycodone (Oxycodone) 5 Mg Tab 5 MG PO Q6HR PRN for pain, #12 TAB 0 Refills Sucralfate Liq (Sucralfate Liq) 1 Gram/10 Ml Erin 1 GM PO ACHS for gastritis for 30 Days, TAB 0 Refills Sulfamethoxazole-Trimethoprim (Sulfamethoxazole-Trimethoprim) 800-160 Mg Tab 1 TAB PO MoWeFr@09 for antibiotic for 30 Days, TAB 0 Refills Continued Medications: Albuterol 18 GM Inh (Ventolin Hfa 18 GM Inh) 90 Mcg/Act Aer 2 PUFF INH Q4H PRN for cough, #1 INHALER 0 Refills Discontinued Medications: Hydrocodone-Chlorpheniramine 12 HR Liq (Tussionex Pennkinetic Ext 12 HR Liq) 10- 8 Mg/5 Ml Susp 5 ML PO Q12H PRN for COUGH AND/OR COLD SYMPTOMS, #60 ML 0 Refills Ibuprofen (Ibuprofen) 800 Mg Tab 800 MG PO Q8H PRN for Pain/Inflammation, #60 TAB 0 Refills Prednisone (48) 10 mg tab Dose Pack (Prednisone (48) 10 mg tab Dose Pack) 10 Mg Dspk 10 MG PO DIRECTED for Inflammation, #1 DSPK 0 Refills Dacia Watkins MD Jan 29, 2017 08:17
--- NOTE | 2017-01-29 08:19 | HHI.FF ---
Face to Face Verification Diagnosis: (1) AML (acute myelogenous leukemia) Physical Therapy Order: Evaluate and Treat Occupational Therapy Order: Evaluate and Treat I have seen patient Nilson Duarte on 01/29/17. My clinical findings support the need for the requested home health care services because: Ltd mobility - disease progression I certify that my clinical findings support that this patient is homebound because: Unsteady gait/balance Dacia Watkins MD Jan 29, 2017 08:19
[2017-01-29] MEDS ORDERED: CIPR250T52 PO (08:26)
[2017-01-29] MEDS ORDERED: PROT40TA PO (08:29)
[2017-01-29] MEDS: ACYCLOVIR 200 MG CAP PO SCH (08:48)
[2017-01-29] MEDS: DOCUSATE SODIUM 100 MG CAP PO SCH ×2 (08:49→13:00)
[2017-01-29] MEDS: SODIUM CHLORIDE 0.9% FLUSH 10 ML FLUSH IV FLUSH SCH (08:50)
[2017-01-29] MEDS: PANTOPRAZOLE SODIUM 40 MG VIAL IV PUSH SCH (08:50)
[2017-01-29] MEDS: Hickman Catheter Daily NS Lock Flush IV FLUSH SCH (08:50)
[2017-01-29] MEDS: SUCRALFATE 1 GM/10 ML CUP PO SCH ×2 (08:51→13:33)
[2017-01-29] MEDS ORDERED: SULFAMETHOXAZOLE-TRIMETHOPRIM DS 800-160 MG TAB PO SCH (09:00)
[2017-01-29] MEDS: MUPIROCIN 2% OINT 22 GM TUBE TOPICAL SCH ×2 (09:00→13:00)
--- NOTE | 2017-01-29 11:17 | PD.ONC.PN ---
Subjective Subjective Remarks Afebrile overnight. Patient very excited to be discharged today. Feeling well without complaint. Objective Data Date Time Temp Pulse Resp B/P (MAP) Pulse Ox O2 Delivery O2 Flow Rate FiO2 01/29/17 08:00 98.3 99 20 123/59 (80) 97 01/29/17 04:00 96.3 97 20 130/58 (82) 95 01/29/17 00:35 96.5 98 20 130/85 (100) 96 01/28/17 20:47 16 01/28/17 20:00 96.7 89 18 130/60 (83) 97 01/28/17 16:00 97.0 103 20 111/52 (71) 96 01/28/17 12:00 97.0 98 20 116/66 (83) 99 Result Diagram: 01/28/17 0606 01/27/17 0443 Administered Medications Medications (Trade) Dose Ordered Sig/Emma Route PRN Reason Start Time Stop Time Status Last Admin Dose Admin Sodium Chloride (NS Flush) 2 ml UNSCH PRN IV FLUSH FLUSH AFTER USING IV ACCESS 12/25/16 23:00 12/30/16 04:59 Sodium Chloride (NS Flush) 2 ml BID IV FLUSH 12/26/16 09:00 01/28/17 20:17 Acetaminophen (Tylenol) 650 mg Q6H PRN PO FEVER>100.4 12/25/16 23:00 01/26/17 14:55 Mupirocin (Bactroban 2% Oint) 1 applic TID TOPICAL 12/27/16 14:15 01/22/17 09:18 Sodium Chloride (NS Flush) 5 ml DAILY IV FLUSH 12/30/16 09:00 01/29/17 08:50 Heparin Sodium (Porcine) (Heparin Central Flush) 500 units DAILY IV FLUSH 12/30/16 09:00 01/29/17 08:49 Heparin Sodium (Porcine) (Heparin Central Flush) 500 units UNSCH PRN IV FLUSH SEE PROTOCOL TABLE 12/30/16 06:30 12/31/16 15:45 Sucralfate (Carafate Liq) 1 gm ACHS PO 01/09/17 16:00 01/29/17 08:51 Ondansetron HCl (Zofran Inj) 8 mg Q8H PRN IV PUSH NAUSEA 01/11/17 17:15 Future hold 01/28/17 12:51 Pantoprazole Sodium (Protonix Inj) 40 mg Q12HR IV PUSH 01/23/17 11:00 01/29/17 08:50 Alteplase, Recombinant (Cathflo Activase Inj) 2 mg Q2H PRN INTRACATH clotted catheter 01/24/17 08:45 01/24/17 09:46 Docusate Sodium (Colace) 100 mg TID PO 01/25/17 18:00 01/28/17 16:53 Oxycodone HCl (Roxicodone) 5 mg Q4H PRN PO PAIN SCALE 1 TO 5 01/26/17 16:15 01/27/17 04:40 Oxycodone HCl (Roxicodone) 10 mg Q4H PRN PO PAIN 6-10 01/27/17 07:45 01/29/17 08:47 Hydromorphone HCl (Dilaudid Pf Inj) 1 mg Q4H PRN IV PUSH BREAKTHROUGH PAIN 01/27/17 07:45 01/28/17 20:17 Trimethoprim/ Sulfamethoxazole (Bactrim Ds 800-160 Mg) 1 tab MoWeFr@09 PO 01/29/17 09:00 01/29/17 08:49 Acyclovir (Zovirax) 400 mg Q12HR PO 01/28/17 09:00 01/29/17 08:48 Objective Remarks GENERAL: Young man, sitting up in nad. SKIN: Warm and dry. HEAD: Normocephalic. EYES: No injection or drainage. NECK: Supple, trachea midline. CARDIOVASCULAR: Regular rate and rhythm RESPIRATORY: Breath sounds equal bilaterally. No accessory muscle use. GASTROINTESTINAL: Abdomen soft, non-tender, nondistended. EXTREMITIES: No cyanosis NEUROLOGICAL: aox3. normal speech. moving all extremities. 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 3am. Transfuse 1 unit irr. platelets, 1 unit irr. PRBC's. 01/08: D9. abdominal pain persistent. 2 units pRBC 01/09: D10. 2 additional units pRBC ordered. 1 unit platelets ordered 01/10: D11. 2 units pRBC. 1 unit platelets. + stool hemoccult 01/12: D13: 2 units pRBC. 1 unit platelets. 01/13: D14: 1 unit platelets. BB working to obtain HLA matched platelets 01/14: D15. 2 units HLA matched platelets given. spoke with BB they will have two units HLA matched on hand at all times. EGD today. 01/15: D16: 1 unit platelets, 1 unit pRBC. swelling in neck and face, ?SVC syndrome. CT chest and CT neck ordered 01/16: D 17: 1 unit platelets, [address] chest and neck negative for SVC syndrome. Continue to monitor blood counts. 01/17 D18: Labs pending. Start Amicar 1gm Q6h for overnight coughing up trav blood. Will transfuse for platelets less than 10k and Hgb less than 7.0. 01/18 D19: WBC 1.0, still thrombocytopenic, no bleeding from IV site or gums. Continue plans for platelet transfusion support. Afebrile. 01/19 D20: Patient received therapeutic transfusions 01/20: D21: No transfusion today. No further hematemesis. 01/21: D22: Transfuse 1 unit PRBC's today. Platelets appear to be recovering. 01/22: D23. repeat BMB today. d/c CONVERTIBLE SOFA BEDSPRING TESTER. encourage patient to start mobilizing more. 01/23: D24. encourage oral intake and mobilization. was OOB for several hours 01/24: D25. pain improving. oral intake improving. 01/25: D26. wean pain medication 01/26: D27. await pathology from BMB 01/27: D28. pathology pending. 01/28: pathology shows no residual disease. we will send to [facility] ([facility]) for second opinion to be sure there is no residual disease. 01/29: D30. discharge. 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 Patients with rearrangement of CBFB in AML may have a higher risk of [employer]OR involvement at diagnosis or at relapse than patients with other types of AML. Inversion 16 or t(16;16), with or without additional chromosome abnormalities, has been associated with complete remission and improved long-term survival. - MUGA scan shows normal EF and no wall motion abnormalities 12/30/2016 - Port placement by IR completed 12/31/16 - Induction chemotherapy started 12/31-- 7+3 regimen with Daunorubicin 90mg/m2 and Cytaribine 100mg/m2-- Dosing capped at BSA of 2 - CMV negative, HIV and Hep B and C negative (2) Abdominal pain ICD Codes: R10.9 - Unspecified abdominal pain Plan: -- Epigastric area pain--EGD, 01/14 showed thrush and distal esophageal ulcer as well as severe gastritis. -- Amylase, lipase WNL -- CT abdomen/ pelvis shows splenic infarcts; --CTA abdomen shows no mesenteric emboli --Abdominal U/S: shows no acute findings. enlarged liver and spleen. --GI following --on Protonix, Carafate, Diflucan +stool hemoccult (3) Sinus tachycardia ICD Codes: R00.0 - Tachycardia, unspecified Plan: --CTA negative for PE --will obtain repeat MUGA scan Assessment 1. oncology clear for discharge 2. follow up in clinic in one week. Attending Statement The exam, history, and the medical decision-making described in the above note were completed with the assistance of the mid-level provider. I reviewed and agree with the findings presented. I attest that I had a [id number] encounter with the patient on the same day, and personally performed and documented my assessment and findings in the medical record Problem Qualifiers (1) Acute myelogenous leukemia: Qualified Codes: C92.00 - Acute myeloblastic leukemia, not having achieved remission Fartun Pagan Jan 29, 2017 11:17 Joey Santoyo MD Jan 29, 2017 23:31
[2017-01-29 12:23] VITALS: BP 126/71; PULSE 103; RESP 20; TEMP 97.8; O2SAT 97
--- NOTE | 2017-02-07 09:37 | PQ ---
Physician Query Response Document PATIENT: TRAM MARTINEZ : 1990 ADMIT DATE: 12/25/2016 9:42 PM DISCH DATE: 01/29/2017 2:05 PM RESPONDING PROVIDER #: [email or web address] QUERY TEXT: Conflicting Documentation Clarification Documentation of multiple diagnoses for the same clinical presentation appears in the record. Please clarify the diagnosis/diagnoses: SIRS VS SEPSIS Please also document if the condition is: -- Confirmed and current -- Confirmed, treated and resolved -- Ruled out -- Other, please specify The patient's Clinical Indicators include: 12/25/16 Admission Diagnosis lymphocytosis, neutropenia, thrombocytopenia, fever PER H 1. SIRS: Temp 101.7, HR 121, WBC normal, Lactic Acid normal. Source-unclear. Reports non-producti ve cough fro approx 1mo, denies fever/chills. Episode of transient AMS upon arrival, currently resol ross. S/p Blood Cultures, IV Cefepime. Follow up cultures, continue w/ IV Abx. Concern for TTP in l ight of AMS, GABRIELA, fever, thrombocytopenia/anemia-Hematology consulted PER 12/27/16 ONCOLOGY PROGRESS NOTE: (2) Sepsis ICD Codes: A41.9 - Sepsis, unspecified organism Status: Acute Plan: --BC no growth --CSF no growth --CT chest shows pneumonia --on Cefepime. Query created by: Katie Galeano on 12/28/2016 10:50 AM RESPONSE TEXT: Originally the patient had findings strongly suggestive of sepsis 2/2 strongly suspected atypical pne umonia evident via the pt's CT scan and severe coughing, resulting in hypoxia. It is indeterminate if the patient's hypoxia had resolved with with abx tx (implying pneumonia was evident) vs if induction therapy by hematology/oncology (implying the cancer was causing fevers - or both simultaneously). Electronically signed by: Ean Bañuelos 02/07/2017 9:33 AM
== END 2017-01-29 14:05 | disposition home health service (06) | DRG 823 ==
LOC: NEPC 19:27 → NEDA 21:42 → HOCA 23:58 → HOCB 12-30 13:16 → N03B 01-19 13:52 → HOCB 01-22 15:16 → HOCA 01-26 20:54
PROVIDERS: ADMIT Hospitalist; ATTEND Internal Medicine
PROC: 009U3ZX Drainage of Spinal Canal, Percutaneous Approach, Diagnostic (ICD-10-PCS; 2016-12-26)
PROC: 30233N1 Transfusion of Nonautologous Red Blood Cells into Peripheral Vein, Percutaneous Approach (ICD-10-PCS; 2016-12-27)
PROC: 0B9J8ZX Drainage of Left Lower Lung Lobe, Via Natural or Artificial Opening Endoscopic, Diagnostic (ICD-10-PCS; 2016-12-28)
PROC: 07DR3ZX Extraction of Iliac Bone Marrow, Percutaneous Approach, Diagnostic (ICD-10-PCS; 2016-12-28)
PROC: 0B9F8ZX Drainage of Right Lower Lung Lobe, Via Natural or Artificial Opening Endoscopic, Diagnostic (ICD-10-PCS; principal; 2016-12-28 17:38)
PROC: 0JH63XZ Insertion of Tunneled Vascular Access Device into Chest Subcutaneous Tissue and Fascia, Percutaneous Approach (ICD-10-PCS; 2016-12-31)
PROC: 3E03305 Introduction of Other Antineoplastic into Peripheral Vein, Percutaneous Approach (ICD-10-PCS; 2016-12-31)
PROC: 02HV33Z Insertion of Infusion Device into Superior Vena Cava, Percutaneous Approach (ICD-10-PCS; 2016-12-31)
PROC: 30233R1 Transfusion of Nonautologous Platelets into Peripheral Vein, Percutaneous Approach (ICD-10-PCS; 2017-01-07)
PROC: 0DJ08ZZ Inspection of Upper Intestinal Tract, Via Natural or Artificial Opening Endoscopic (ICD-10-PCS; 2017-01-14)
PROC: 07DR3ZX Extraction of Iliac Bone Marrow, Percutaneous Approach, Diagnostic (ICD-10-PCS; 2017-01-22)
DX: C92.Z0 Other myeloid leukemia not having achieved remission (principal); J18.9 Pneumonia, unspecified organism; J96.01 Acute respiratory failure with hypoxia; N17.9 Acute kidney failure, unspecified; D61.818 Other pancytopenia; K92.0 Hematemesis; B37.81 Candidal esophagitis; B37.0 Candidal stomatitis; K22.10 Ulcer of esophagus without bleeding; K92.1 Melena; R65.10 Systemic inflammatory response syndrome (SIRS) of non-infectious origin without acute organ dysfunction; D62 Acute posthemorrhagic anemia; D70.9 Neutropenia, unspecified; D73.5 Infarction of spleen; K29.70 Gastritis, unspecified, without bleeding; R50.81 Fever presenting with conditions classified elsewhere; R51 Headache; R31.21 Asymptomatic microscopic hematuria; R19.7 Diarrhea, unspecified; D69.59 Other secondary thrombocytopenia; R00.0 Tachycardia, unspecified; T45.1X5A Adverse effect of antineoplastic and immunosuppressive drugs, initial encounter
CPT/HCPCS: 36430; 36561; 36569; 36600; 38221; 62270; 70450; 70491; 70553; 71010; 71260; 71275; 74000; 74174; 74177; 74183; 76700; 76937; 77001; 77003; 77012; 78226; 78472; 80048; 80053; 80076; 80202; 81001; 82150; 82247; 82248; 82272; 82607; 82728; 82746; 82805; 82945; 83010; 83540; 83550; 83605; 83615; 83690; 83735; 84100; 84132; 84155; 84157; 84484; 84550; 85007; 85014; 85018; 85027; 85060; 85097; 85379; 85384; 85610; 85730; 86403; 86592; 86618; 86635; 86644; 86645; 86651; 86652; 86653; 86654; 86703; 86705; 86803; 86850; 86880; 86900; 86901; 86920; 86945; 87015; 87040; 87070; 87086; 87102; 87116; 87205; 87206; 87252; 87254; 87328; 87329; 87338; 87340; 87449; 87493; 87497; 87506; 87529; 87799; 87801; 87804; 88305; 88311; 88313; 89051; 93005; 93970; 93971; 94150; 94640; 94664; 94667; 94668; 94762; 96361; 96374; 96375; 99152; 99153; A9537; A9560; A9579; C1788; C1830; C9113; G0364; J0171; J0456; J0610; J0692; J0780; J1100; J1170; J1200; J1450; J1626; J1642; J2060; J2250; J2270; J2405; J2543; J2550; J2920; J2997; J3010; J3370; J3480; J7030; J7040; J7050; J7070; J7613; J8540; J9100; J9150; P9016; P9037; P9040; P9052; Q0169; Q9963; Q9967

== ENCOUNTER 2017-02-02 01:55 | Observation (INO) | payer OTHER ==
[~2017-02-02 01:55] MED LIST changes: +ACETAMINOPHEN 325 MG TAB PO PRN; +ACYC200C66 PO; +ALBUTEROL SULFATE 90 MCG/ACT HFA 8 GM INHALER INH PRN; +BISACODYL 10 MG SUPP RECTAL PRN; +CIPR250T52 PO; -IBUP800T23 PO; +LACTULOSE SYRUP 20 GM/30 ML CUP PO PRN; +MAGNESIUM HYDROXIDE SUSP 30 ML CUP PO PRN; +NALOXONE HCL 0.4 MG/ML AMP IV PUSH PRN; +ONDANSETRON HCL 4 MG/2 ML VIAL IVP PRN; +OXYC-392 PO; -PRED10PA2 PO; +PROT40TA PO; +SENNOSIDES 8.6 MG TAB PO PRN; +SODIUM CHLORIDE 0.9% FLUSH 10 ML FLUSH IV FLUSH PRN; +SUCR1S PO; +SULF1TAB23 PO; +TEMAZEPAM 15 MG CAP PO PRN; -TUSSSUS2 PO
[2017-02-02] MEDS ORDERED: SODIUM CHLOR 0.45% 1000 ML INJ 1,000 ML IV SCH (03:00)
[2017-02-02 04:34] VITALS: BP 130/79; PULSE 88; RESP 18; TEMP 97.8; O2SAT 98
--- NOTE | 2017-02-02 05:40 | HHI.HP ---
[facility] Catina Brian MD Admission Diagnosis Diagnoses: Chief Complaint: Generalized body ache, rectal bleeding Travel History International Travel<30 Days: No Contact w/Intl Traveler <30 Da: No Traveled to Known Affected Are: No History of Present Illness 26-year-old male recently diagnosed with AML and completed chemotherapy. The patient also had upper GI bleeding and was seen by GI a couple of weeks ago. At the time he was found to have esophageal ulcers and Ladan esophagitis. He was subsequently discharged home. He returned to the hospital last night after having one episode of dark bowel movement. He hasn't had any further episodes since arriving to the emergency room. He reports compliance with taking Carafate and PPI. He reports feeling fatigue. He main issue currently is ongoing generalized body ache that started since he completed chemotherapy. He states that oxycodone prescribed to him on discharge has not been working for him. Workup in the emergency room revealed a hemoglobin of 8.5 which is stable compared to his last blood work. Review of Systems Constitutional: COMPLAINS OF: Fatigue, DENIES: Fever, Chills Gastrointestinal: COMPLAINS OF: Black stools, DENIES: Abdominal pain Genitourinary: DENIES: Dysuria Except as stated in HPI: all other systems reviewed are Neg Past Family Social History Past Medical History AML, completed chemotherapy this month. Upper GI bleed Esophageal ulcer and Ladan esophagitis Past Surgical History Port placement. Reported Medications Reported Meds & Active Scripts Active Protonix (Pantoprazole Sodium) 40 Mg Tab 40 Mg PO DAILY 30 Days Cipro (Ciprofloxacin HCl) 250 Mg Tab 250 Mg PO DAILY ON ,WED,WED 30 Days Sucralfate Liq (Sucralfate) 1 Gram/10 Ml Erin 1 Gm PO ACHS 30 Days Oxycodone (Oxycodone HCl) 5 Mg Tab 5 Mg PO Q6HR PRN Acyclovir 200 Mg Cap 400 Mg PO Q12HR 30 Days Sulfamethoxazole-Trimethoprim 800-160 Mg Tab 1 Tab PO MOWEFR@09 30 Days Ventolin Hfa 18 GM Inh (Albuterol Sulfate) 90 Mcg/Act Aer 2 Puff INH Q4H PRN Allergies: Coded Allergies: No Known Allergies (Verified , 12/25/16) Family History Reviewed and is noncontributory. Social History No tobacco, occasional alcohol. Denies illicit drugs. Physical Exam Vital Signs Vital Signs Date Time Temp Pulse Resp B/P (MAP) Pulse Ox O2 Delivery O2 Flow Rate FiO2 02/02/17 04:34 97.8 88 18 130/79 (96) 98 Physical Exam GENERAL: Morbidly obese male in no apparent distress. SKIN: No rashes, ecchymoses or lesions. Cool and dry. HEAD: Atraumatic. Normocephalic. EYES: Pupils equal round and reactive. ENT: Nose without drainage. Uvula midline. Airway patent. NECK: Trachea midline. No JVD or lymphadenopathy. Supple, nontender, no meningeal signs. CARDIOVASCULAR: Regular rate and rhythm without murmurs, gallops, or rubs. RESPIRATORY: Clear to auscultation. Breath sounds equal bilaterally. No wheezes , rales, or rhonchi. GASTROINTESTINAL: Abdomen soft, non-tender, nondistended. No hepato-splenomegaly , or palpable masses. No guarding. MUSCULOSKELETAL: Extremities without clubbing, cyanosis, or edema. No joint tenderness, effusion, or edema noted. No calf tenderness. Negative Homans sign bilaterally. NEUROLOGICAL: Awake and alert. Cranial nerves II through XII intact. Motor and sensory grossly within normal limits. Five out of 5 muscle strength in all muscle groups. Normal speech. Caprini VTE Risk Assessment Caprini VTE Risk Assessment: Mod/High Risk (score >= 2) VTE Pharm Contraindication: High risk for bleeding Caprini Risk Assessment Model Point Value = 1 Point Value = 2 Point Value = 3 Point Value = 5 Age 41-60 Minor surgery BMI > 25 kg/m2 Swollen legs Varicose veins or History of unexplained or recurrent spontaneous Oral contraceptives or hormone replacement Sepsis (< 1 month) Serious lung disease, including pneumonia (< 1 month) Abnormal pulmonary function Acute myocardial infarction Congestive heart failure (< 1 month) History of inflammatory bowel disease Medical patient at bed rest Age 61-74 Arthroscopic surgery Major open surgery (> 45 min) Laparoscopic surgery (> 45 min) Malignancy Confined to bed (> 72 hours) Immobilizing plaster cast Central venous access Age >= 75 History of VTE Family history of VTE Factor V Leiden Prothrombin [id number] Lupus anticoagulant Anticardiolipin antibodies Elevated serum homocysteine Heparin-induced thrombocytopenia Other congenital or acquired thrombophilia Stroke (< 1 month) Elective arthroplasty Hip, pelvis, or leg fracture Acute spinal cord injury (< 1 month) Prophylaxis Regimen Total Risk Factor Score Risk Level Prophylaxis Regimen 0-1 Low Early ambulation 2 Moderate Order ONE of the following: *Sequential Compression Device (SCD) *Heparin 5000 units SQ BID 3-4 Higher Order ONE of the following medications: *Heparin 5000 units SQ TID *Enoxaparin/Lovenox 40 mg SQ daily (WT < 150 kg, CrCl > 30 mL/min) *Enoxaparin/Lovenox 30 mg SQ daily (WT < 150 kg, CrCl > 10-29 mL/min) *Enoxaparin/Lovenox 30 mg SQ BID (WT < 150 kg, CrCl > 30 mL/min) AND/OR *Sequential Compression Device (SCD) 5 or more Highest Order ONE of the following medications: *Heparin 5000 units SQ TID (Preferred with Epidurals) *Enoxaparin/Lovenox 40 mg SQ daily (WT < 150 kg, CrCl > 30 mL/min) *Enoxaparin/Lovenox 30 mg SQ daily (WT < 150 kg, CrCl > 10-29 mL/min) *Enoxaparin/Lovenox 30 mg SQ BID (WT < 150 kg, CrCl > 30 mL/min) AND *Sequential Compression Device (SCD) Assessment and Plan Problem List: (1) GIB (gastrointestinal bleeding) ICD Code: K92.2 - Gastrointestinal hemorrhage, unspecified (2) Acute myelogenous leukemia ICD Code: C92.00 - Acute myeloblastic leukemia, not having achieved remission (3) Generalized pain ICD Code: R52 - Pain, unspecified Assessment and Plan 26-year-old male with: Melena/GI bleed: Patient reported an episode of melena at home. No further episodes since arriving at the hospital. Hemodynamically stable. Known history of esophageal ulcers and esophagitis. Probable esophageal candidiasis. Patient was scoped a couple of weeks ago. - Follow H&H. Monitor for any active bleeding. If signs of active bleeding, would consult GI. If the patient doesn't experience any further symptoms and H& H remained stable, would advise outpatient follow-up with GI. AML: Patient completed chemotherapy. If no improvement or worsening of anemia or other labs, would consult Oncology. Continue prophylactic Cipro, Bactrim, and acyclovir. Anemia: Stable. Continue to monitor. If transfusion becomes necessary, will consult Performance Engineer Dr. Santoyo. Generalized pain: Patient reports he has been having generalized body ache since started on chemotherapy. He states the last time he was in the hospital he was getting Dilaudid. However he was discharged home on 5 mg of oxycodone which he does not believe is working for him. - Will change to Percocet as needed for pain. Morphine as needed for breakthrough pain. Advised the patient to work on being weaned off narcotics. GI prophylaxis: PPI. DVT PPx: SCDs. Phuong Sheriff MD Feb 02, 2017 05:40
[2017-02-02] MEDS ORDERED: oxyCODONE/ACETAMINOPHEN 10 MG/325 MG TAB PO PRN (05:45)
[2017-02-02] MEDS ORDERED: MORPHINE SULFATE 4 MG/ML INJ IV PUSH PRN (06:00)
[2017-02-02 07:44] VITALS: BP 113/60; PULSE 86; RESP 18; TEMP 98; O2SAT 97
[2017-02-02] MEDS ORDERED: SUCRALFATE 1 GM/10 ML CUP PO SCH (08:00)
[2017-02-02] MEDS ORDERED: ACYCLOVIR 200 MG CAP PO SCH (09:00)
[2017-02-02] MEDS ORDERED: PANTOPRAZOLE SOD 40 MG DELAYED RELEASE TAB PO SCH (09:00)
[2017-02-02] MEDS ORDERED: SODIUM CHLORIDE 0.9% FLUSH 10 ML FLUSH IV FLUSH SCH (09:00)
[2017-02-02] MEDS ORDERED: CIPROFLOXACIN 250 MG TAB PO SCH (09:00)
--- NOTE | 2017-02-02 11:19 | HHI.DCPOC ---
Discharge Care Plan Diagnosis: (1) GIB (gastrointestinal bleeding) (2) Generalized pain (3) AML (acute myelogenous leukemia) (4) Anemia Goals to Promote Your Health * To prevent worsening of your condition and complications * To maintain your health at the optimal level Directions to Meet Your Goals Take your medications as prescribed Follow your dietary instruction Follow activity as directed Keep your appointments as scheduled Take your immunizations and boosters as scheduled If your symptoms worsen call your PCP, if no PCP go to Urgent Care Center or Emergency Room Smoking is Dangerous to Your Health. Avoid second hand smoke Call the 24-hour hour crisis hotline for domestic abuse at Jose Gomez DO Feb 02, 2017 11:19
[2017-02-02 11:25] VITALS: BP 135/67; PULSE 82; RESP 20; TEMP 97.7; O2SAT 97
--- NOTE | 2017-02-02 11:29 | HHI.PR ---
Subjective Remarks The patient really wanted to be discharged. He said he has an appointment with his doctor at 1:00 that he needs to go to to get home health care and pain management set up. He reports no further bloody bowel movements. He is frustrated that the repeat blood draw did not get done this morning. His family was at the bedside in voice the same concerns. Discussed with nursing. Objective Vitals Vital Signs Date Time Temp Pulse Resp B/P (MAP) Pulse Ox O2 Delivery O2 Flow Rate FiO2 02/02/17 07:44 98.0 86 18 113/60 (77) 97 02/02/17 06:30 12 02/02/17 04:34 97.8 88 18 130/79 (96) 98 Objective Remarks GENERAL: Morbidly obese male in no apparent distress. SKIN: No rashes, ecchymoses or lesions. Cool and dry. HEAD: Atraumatic. Normocephalic. EYES: Pupils equal round and reactive. ENT: Nose without drainage. Uvula midline. Airway patent. NECK: Trachea midline. No JVD or lymphadenopathy. Supple, nontender, no meningeal signs. CARDIOVASCULAR: Regular rate and rhythm without murmurs, gallops, or rubs. RESPIRATORY: Clear to auscultation. Breath sounds equal bilaterally. No wheezes , rales, or rhonchi. GASTROINTESTINAL: Abdomen soft, non-tender, nondistended. No hepato-splenomegaly , or palpable masses. No guarding. MUSCULOSKELETAL: Extremities without clubbing, cyanosis, or edema. No joint tenderness, effusion, or edema noted. NEUROLOGICAL: Awake and alert. Cranial nerves II through XII intact. Motor and sensory grossly within normal limits. Five out of 5 muscle strength in all muscle groups. Normal speech. PSYCH: Mood and affect appropriate. Medications and IVs Current Medications Medications (Trade) Dose Ordered Sig/Emma Route Start Time Stop Time Status Last Admin (Zovirax) 400 mg Q12HR PO 02/02/17 09:00 (Proair Hfa Inh) 2 puff Q4H PRN INH 02/02/17 01:00 (Cipro) 250 mg TuThSa@0900 PO 02/02/17 09:00 02/02/17 10:17 (Protonix) 40 mg DAILY PO 02/02/17 09:00 02/02/17 10:17 (Carafate Liq) 1 gm ACHS PO 02/02/17 08:00 02/02/17 07:55 (Bactrim Ds 800-160 Mg) 1 tab MoWeFr@09 PO 02/03/17 09:00 Sodium Chloride 1,000 ml @ 75 mls/hr [id number] IV 02/02/17 03:00 02/02/17 06:25 (NS Flush) 2 ml UNSCH PRN IV FLUSH 02/02/17 01:00 (NS Flush) 2 ml BID IV FLUSH 02/02/17 09:00 (Tylenol) 650 mg Q4H PRN PO 02/02/17 01:00 (Zofran Inj) 4 mg Q6H PRN IVP 02/02/17 01:00 02/02/17 06:31 (Restoril) 15 mg HS PRN PO 02/02/17 01:00 (Narcan Inj) 0.4 mg UNSCH PRN IV PUSH 02/02/17 01:00 (Milk Of Magnesia Liq) 30 ml Q12H PRN PO 02/02/17 01:00 (Senokot) 17.2 mg Q12H PRN PO 02/02/17 01:00 (Dulcolax Supp) 10 mg DAILY PRN RECTAL 02/02/17 01:00 (Lactulose Liq) 30 ml DAILY PRN PO 02/02/17 01:00 (Percocet 10-325 Mg) 1 tab Q4H PRN PO 02/02/17 05:45 02/02/17 10:17 (Morphine Inj) 2 mg Q3H PRN IV PUSH 02/02/17 06:00 02/02/17 06:25 A/P Problem List: (1) GIB (gastrointestinal bleeding) ICD Code: K92.2 - Gastrointestinal hemorrhage, unspecified (2) Acute myelogenous leukemia ICD Code: C92.00 - Acute myeloblastic leukemia, not having achieved remission (3) Generalized pain ICD Code: R52 - Pain, unspecified Assessment and Plan Melena/GI bleed: Patient reported an episode of melena at home. No further episodes since arriving at the hospital. Hemodynamically stable. Known history of esophageal ulcers and esophagitis. Probable esophageal candidiasis. Patient was scoped a couple of weeks ago. - Follow H&H. Monitor for any active bleeding. If signs of active bleeding, would consult GI. If the patient doesn't experience any further symptoms and H& H remained stable, would advise outpatient follow-up with GI. - the pt would like to follow up with his PCP today. Will need a repeat CBC. He will be referred to GI. He is hemodynamically stable. AML: Patient completed chemotherapy. If no improvement or worsening of anemia or other labs, would consult Oncology. Continue prophylactic Cipro, Bactrim, and acyclovir. - Will have home health care set up today at his PCP. Anemia: Stable. Continue to monitor. If transfusion becomes necessary, will consult It Software Engineer Dr. Santoyo. - Outpt follow-up. Repeat CBC today at PCP. Generalized pain: Patient reports he has been having generalized body ache since started on chemotherapy. He states the last time he was in the hospital he was getting Dilaudid. However he was discharged home on 5 mg of oxycodone which he does not believe is working for him. - Will change to Percocet as needed for pain. Morphine as needed for breakthrough pain. Advised the patient to work on being weaned off narcotics. - to be referred to pain management. GI prophylaxis: PPI. DVT PPx: SCDs. Discharge Planning D/c to PCP appointment Jose Gomez DO Feb 02, 2017 11:29
[2017-02-02] MEDS ORDERED: OXYC-395 PO (14:28)
[2017-02-03] MEDS ORDERED: SULFAMETHOXAZOLE-TRIMETHOPRIM DS 800-160 MG TAB PO SCH (09:00)
== END 2017-02-02 12:25 | disposition home or self-care (01) ==
LOC: NEDDLT 01:55 → NEPGCP 02:05
PROVIDERS: ADMIT Hospitalist; ATTEND Hospitalist
DX: K92.2 Gastrointestinal hemorrhage, unspecified (principal); C92.00 Acute myeloblastic leukemia, not having achieved remission; R53.83 Other fatigue; R52 Pain, unspecified; K22.10 Ulcer of esophagus without bleeding; B37.81 Candidal esophagitis
CPT/HCPCS: 71010; 80053; 85007; 85027; 85610; 96361; 96374; 96375; 96376; 99285; G0378; J1170; J1642; J2270; J2405

== ENCOUNTER 2017-03-01 09:18 | Inpatient (IN) | payer OTHER ==
[~2017-03-01] VITALS: Ht 182.9 cm; Wt 160.5 kg
[~2017-03-01 09:18] MED LIST changes: -ACETAMINOPHEN 325 MG TAB PO PRN; -ALBUTEROL SULFATE 90 MCG/ACT HFA 8 GM INHALER INH PRN; -BISACODYL 10 MG SUPP RECTAL PRN; -CIPR250T52 PO; -LACTULOSE SYRUP 20 GM/30 ML CUP PO PRN; -MAGNESIUM HYDROXIDE SUSP 30 ML CUP PO PRN; -NALOXONE HCL 0.4 MG/ML AMP IV PUSH PRN; -ONDANSETRON HCL 4 MG/2 ML VIAL IVP PRN; -OXYC-392 PO; +OXYC-395 PO; -SENNOSIDES 8.6 MG TAB PO PRN; -SODIUM CHLORIDE 0.9% FLUSH 10 ML FLUSH IV FLUSH PRN; -TEMAZEPAM 15 MG CAP PO PRN
[2017-03-01 09:42] VITALS: BP 152/75; PULSE 79; RESP 18; TEMP 98.4; O2SAT 100
[2017-03-01 10:42] LABS: AUTOMATED NEUTROPHIL # 11.9 TH/MM3 (1.8-7.7); BASOPHIL # 0.1 TH/MM3 (0-0.2); BASOPHIL % 0.5 % (0.0-2.0); EOSINOPHIL # 0.2 TH/MM3 (0-0.4); EOSINOPHIL % 1.3 % (0.0-4.0); HEMATOCRIT 33.4 % (39.0-51.0); HEMO FLAGS DIFF FINAL; LYMPH % 11.8 % (9.0-44.0); LYMPHOCYTE # 1.7 TH/MM3 (1.0-4.8); MEAN CELL VOLUME 83.8 FL (80.0-100.0); MEAN CORPUSCULAR HEMOGLOBIN 27.1 PG (27.0-34.0); MEAN CORPUSCULAR HGB CONC 32.4 % (32.0-36.0); MONO % 6.2 % (0.0-8.0); NEUT % 80.2 % (16.0-70.0); PLATELET COUNT 345 TH/MM3 (150-450); RED BLOOD COUNT 3.99 MIL/MM3 (4.50-5.90); RED CELL DISTRIBUTION WIDTH 16.1 % (11.6-17.2); WHITE BLOOD COUNT 14.8 TH/MM3 (4.0-11.0)
[2017-03-01 11:00] LABS: ANION GAP 10 MEQ/L (5-15); AST (GOT) 26 U/L (15-37); BICARBONATE 25.9 MEQ/L (21.0-32.0); BLOOD UREA NITROGEN 6 MG/DL (7-18); CHLORIDE 101 MEQ/L (98-107); GLOMERULAR FILTRATION RATE 125 ML/MIN (>89); POTASSIUM 3.2 MEQ/L (3.5-5.1); SODIUM (NA) 137 MEQ/L (136-145)
[2017-03-01 11:01] LABS: ALT (GPT) 47 U/L (12-78)
[2017-03-01 11:03] LABS: ALKALINE PHOSPHATASE 77 U/L (45-117); TOTAL BILIRUBIN ADULT 0.6 MG/DL (0.2-1.0)
[2017-03-01] MEDS ORDERED: POTASSIUM CHLORIDE 20 MEQ CONTROLLED RELEASE TAB PO ONE (11:30)
[2017-03-01 12:22] VITALS: BP 138/74; PULSE 75; RESP 18; TEMP 97.8; O2SAT 100
[2017-03-01 13:32] VITALS: BP 138/74; PULSE 97; RESP 18; TEMP 97.8
[2017-03-01] MEDS: PANTOPRAZOLE SOD 40 MG DELAYED RELEASE TAB PO SCH (14:35)
[2017-03-01] MEDS: DEXAMETHASONE SOD PHOS 0.1% OPHT SOLN 5 ML BTL EACH EYE SCH ×3 (14:36→21:49)
[2017-03-01] MEDS: GRANISETRON INJ 1 MG, DEXAMETHASONE INJ 20 MG in SODIUM CHLORIDE 0.9% INJ 50 ML IV SCH (15:14)
[2017-03-01] MEDS: SODIUM CHLOR 0.9% 1000 ML INJ 1,000 ML IV SCH (15:14)
[2017-03-01] MEDS: SODIUM CHLOR 0.9% IV SCH (16:00)
[2017-03-01] MEDS: CYTARABINE IV SCH (16:00)
[2017-03-01 16:37] VITALS: BP 133/66; PULSE 86; RESP 18; TEMP 98.3; O2SAT 96
[2017-03-01] MEDS: SUCRALFATE 1 GM/10 ML CUP PO SCH ×2 (18:36→21:48)
[2017-03-01 20:00] VITALS: BP 123/55; PULSE 84; RESP 16; TEMP 98.4; O2SAT 97
[2017-03-02 00:01] VITALS: BP 113/54; PULSE 86; RESP 16; TEMP 98; O2SAT 97
[2017-03-02 03:41] VITALS: BP 114/57; PULSE 82; RESP 16; TEMP 98.3; O2SAT 97
[2017-03-02] MEDS: CYTARABINE IV SCH (04:05)
[2017-03-02] MEDS: SODIUM CHLOR 0.9% IV SCH (04:05)
[2017-03-02 04:26] LABS: AUTOMATED NEUTROPHIL # 14.3 TH/MM3 (1.8-7.7); BASOPHIL % 0.1 % (0.0-2.0); HEMATOCRIT 33.3 % (39.0-51.0); HEMO FLAGS DIFF FINAL; LYMPH % 3.4 % (9.0-44.0); LYMPHOCYTE # 0.5 TH/MM3 (1.0-4.8); MEAN CELL VOLUME 82.9 FL (80.0-100.0); MEAN CORPUSCULAR HGB CONC 32.5 % (32.0-36.0); MONO % 1.5 % (0.0-8.0); PLATELET COUNT 358 TH/MM3 (150-450); RED BLOOD COUNT 4.02 MIL/MM3 (4.50-5.90); RED CELL DISTRIBUTION WIDTH 15.5 % (11.6-17.2); WHITE BLOOD COUNT 15.1 TH/MM3 (4.0-11.0)
[2017-03-02 04:58] LABS: ALT (GPT) 43 U/L (12-78); ANION GAP 7 MEQ/L (5-15); AST (GOT) 13 U/L (15-37); BICARBONATE 26.7 MEQ/L (21.0-32.0); BLOOD UREA NITROGEN 8 MG/DL (7-18); CHLORIDE 104 MEQ/L (98-107); GLOMERULAR FILTRATION RATE 127 ML/MIN (>89); SODIUM (NA) 138 MEQ/L (136-145)
[2017-03-02 05:00] LABS: ALKALINE PHOSPHATASE 82 U/L (45-117); TOTAL BILIRUBIN ADULT 0.7 MG/DL (0.2-1.0)
[2017-03-02 08:27] VITALS: BP 128/63; PULSE 85; RESP 18; TEMP 97.6; O2SAT 96
[2017-03-02] MEDS: PANTOPRAZOLE SOD 40 MG DELAYED RELEASE TAB PO SCH (08:36)
[2017-03-02] MEDS: SUCRALFATE 1 GM/10 ML CUP PO SCH ×4 (08:36→21:10)
[2017-03-02] MEDS: DEXAMETHASONE SOD PHOS 0.1% OPHT SOLN 5 ML BTL EACH EYE SCH ×4 (08:36→21:10)
[2017-03-02] MEDS: SODIUM CHLOR 0.9% 1000 ML INJ 1,000 ML IV SCH ×2 (08:40→21:11)
[2017-03-02] MEDS ORDERED: HYDROmorphone HCL PF 1 MG/ML VIAL IV PUSH ONE (08:45)
--- NOTE | 2017-03-02 09:22 | MH ---
cc: NOHELIA CHARLES DATE OF ADMISSION: 03/01/2017 REASON FOR ADMISSION Patient with a diagnosis of acute myeloid leukemia status post induction chemotherapy, who is now being admitted for consolidation chemotherapy. HISTORY OF PRESENT ILLNESS Mr. Duarte is a 26-year-old male who was diagnosed with acute myeloid leukemia in January 2017. He had presented to the emergency department with acute episodes of confusion. He was found to be anemic and thrombocytopenic. Additional work-up including a bone marrow biopsy confirmed acute myeloid leukemia. This is FLT-3 negative, mutation negative leukemia. He was found to have inversion 16, which carries a favorable risk. The patient was given induction chemotherapy consisting of daunorubicin and cytarabine, 7+3 regimen. Subsequently he achieved complete remission. A day 15 bone marrow biopsy did not reveal any overt leukemia in the bone marrow and findings were consistent with recovering bone marrow. The patient was subsequently discharged from the hospital. He was seen in the clinic. He has not required any blood transfusion or platelet transfusion post induction recovery. He has a chronic issue with abdominal pain; the etiology is unclear at this time. He had undergone inpatient GI evaluation including EGD and he was found to have esophagitis and gastritis. CT imaging of the abdomen also did not reveal any abnormalities that would correlate with his abdominal pain. He has been taking oxycodone to control his pain. He is now being admitted to the hospital for consolidation #1 with HIDAC chemotherapy. He denies any headaches. No blurry vision. No chest pain. No shortness of breath. No lower extremity edema or pain. His ECOG performance status is 0. REVIEW OF SYSTEMS A comprehensive 14-point review of systems was completed, which is negative except as described in the HPI. PAST MEDICAL HISTORY Acute myeloid leukemia. PAST SURGICAL HISTORY Bone marrow biopsy in 2016. MEDICATIONS 1. Acyclovir 200 mg p.o. b.i.d. 2. Oxycodone 10 mg p.o. q.6-8h. p.r.n. pain. 3. Pantoprazole 40 mg, one tablet p.o. daily. 4. Bactrim, one tablet 800/160 Wednesday, Wednesday and Wednesday. FAMILY HISTORY Family history was reviewed and noncontributory to this admission. SOCIAL HISTORY Social history was reviewed and he does not have any history of tobacco abuse. No alcohol abuse. No illicit drug use. PHYSICAL EXAMINATION VITAL SIGNS: Blood pressure 123/55, pulse in the 80s, temperature 98.4. GENERAL: An obese, well-developed, well-nourished male in no apparent distress. HEENT: Pupils are equal, round and reactive to light. EOMI. No oral thrush. No oral lesions. NECK: Supple. No JVD. No bruits. No lymphadenopathy. CHEST: Clear to auscultation bilaterally. Diminished breath sounds at the bases. CARDIAC: S1, S2, regular rate and rhythm. ABDOMEN: Distended due to obesity. Bowel sounds are present. Mild diffuse tenderness. No rebound. EXTREMITIES: No edema, erythema or cyanosis. SKIN: Without any petechiae, lesions or bruises. NEUROLOGIC: No focal deficits. PSYCHIATRIC: Mood and affect are appropriate. LABORATORY WBC 14.8, hemoglobin 10.8, platelet count 345. Serum chemistries show sodium 137, potassium 3.2, chloride 101, BUN 6, creatinine 0.76, calcium 9.6, total bilirubin 0.6, AST 26, ALT 47, alk phos 77, total protein 7.3, albumin 3.3. Coags: PT 11, INR 1.1. ASSESSMENT AND PLAN This is a 27-year-old male with a diagnosis of acute myeloid leukemia with inversion 16, who has undergone induction chemotherapy with daunorubicin and cytarabine and achieved complete remission, who is now being admitted for consolidation chemotherapy with HIDAC chemotherapy. 1. Acute myeloid leukemia with favorable risk disease. The patient has inversion 16. We will proceed with HIDAC chemotherapy. He will receive treatment on days 1, 3 and 5. We will initiate steroid eye drops. We will monitor daily labs including CBC and CMP. 2. Monitor for tumor lysis syndrome. Check daily uric acid level. Check daily phosphorus level. 3. Infectious disease prophylaxis. Continue Bactrim double-strength Wednesday, Wednesday and Wednesday, Cipro 250 mg Wednesday, and Wednesday. Continue acyclovir 200 mg p.o. b.i.d. 4. Gastroesophageal reflux disease. Continue with pantoprazole. 5. Abdominal pain. Continue oxycodone for now. He was supposed to follow-up with GI outpatient, but he never had a follow-up. If he continues to have abdominal pain we will ask GI for their input. 6. DVT prophylaxis. Initiate Lovenox subcu 40 mg daily. 7. Further recommendations will be made during the course of his admission. MD MAJOR Muñiz/DREW /8:34 PM /8:48 AM
[2017-03-02] MEDS ORDERED: HYDROmorphone HCL PF 2 MG/ML VIAL IV PUSH ONE (09:30)
--- NOTE | 2017-03-02 11:28 | PD.ONC.PN ---
Subjective Subjective Remarks Afebrile overnight. Overnight patient complaining of severe persistent abdominal pain, epigastric in location. No known precipitating or palliating factors. Improved after a dose of IV Dilaudid this AM. NO vomiting. Objective Data Date Time Temp Pulse Resp B/P (MAP) Pulse Ox O2 Delivery O2 Flow Rate FiO2 03/02/17 08:27 97.6 85 18 128/63 (84) 96 03/02/17 03:41 98.3 82 16 114/57 (76) 97 03/02/17 00:01 98.0 86 16 113/54 (73) 97 03/01/17 20:00 98.4 84 16 123/55 (77) 97 03/01/17 16:37 98.3 86 18 133/66 (88) 96 03/01/17 13:32 97.8 97 18 138/74 (95) 03/01/17 12:22 97.8 75 18 138/74 (95) 100 03/02/17 03/02/17 03/02/17 07:00 15:00 23:00 Intake Total 740 ml 320 ml Output Total 900 ml Balance -160 ml 320 ml Result Diagram: 03/02/17 0335 03/02/17 0335 Laboratory Results Laboratory Tests Test 03/02/17 03:35 White Blood Count 15.1 TH/MM3 Red Blood Count 4.02 MIL/MM3 Hemoglobin 10.8 GM/DL Hematocrit 33.3 % Mean Corpuscular Volume 82.9 FL Mean Corpuscular Hemoglobin 27.0 PG Mean Corpuscular Hemoglobin Concent 32.5 % Red Cell Distribution Width 15.5 % Platelet Count 358 TH/MM3 Mean Platelet Volume 7.6 FL Neutrophils (%) (Auto) 95.0 % Lymphocytes (%) (Auto) 3.4 % Monocytes (%) (Auto) 1.5 % Eosinophils (%) (Auto) 0.0 % Basophils (%) (Auto) 0.1 % Neutrophils # (Auto) 14.3 TH/MM3 Lymphocytes # (Auto) 0.5 TH/MM3 Monocytes # (Auto) 0.2 TH/MM3 Eosinophils # (Auto) 0.0 TH/MM3 Basophils # (Auto) 0.0 TH/MM3 CBC Comment DIFF FINAL Differential Comment Blood Urea Nitrogen 8 MG/DL Creatinine 0.75 MG/DL Random Glucose 132 MG/DL Total Protein 7.5 GM/DL Albumin 3.1 GM/DL Calcium Level 9.0 MG/DL Alkaline Phosphatase 82 U/L Aspartate Amino Transf (AST/SGOT) 13 U/L Alanine Aminotransferase (ALT/SGPT) 43 U/L Total Bilirubin 0.7 MG/DL Sodium Level 138 MEQ/L Potassium Level 4.0 MEQ/L Chloride Level 104 MEQ/L Carbon Dioxide Level 26.7 MEQ/L Anion Gap 7 MEQ/L Estimat Glomerular Filtration Rate 127 ML/MIN Administered Medications Medications (Trade) Dose Ordered Sig/Emma Route PRN Reason Start Time Stop Time Status Last Admin Dose Admin Oxycodone HCl (Roxicodone) 10 mg Q6H PRN PO pain 03/01/17 12:00 03/02/17 04:09 Dexamethasone Sodium Phosphate (Decadron Opth 0.1% Soln) 2 drop QID EACH EYE 03/01/17 13:00 03/08/17 09:01 03/02/17 08:36 Pantoprazole Sodium (Protonix) 40 mg DAILY PO 03/01/17 14:00 03/02/17 08:36 Sucralfate (Carafate Liq) 1 gm ACHS PO 03/01/17 17:00 03/02/17 08:36 Granisetron HCl 1 mg/Dexamethasone Sodium Phosphate 20 mg/Sodium Chloride 56 ml @ 336 mls/hr DAILY@1530 IV 03/01/17 15:30 03/05/17 15:39 03/01/17 15:14 Sodium Chloride 1,000 ml @ 50 mls/hr Q20H IV 03/01/17 14:00 03/02/17 08:40 Objective Remarks GENERAL: Young man, sitting up in bed in [facility]. SKIN: Warm and dry. HEAD: Normocephalic. EYES: No scleral icterus. No injection or drainage. NECK: Supple, trachea midline. CARDIOVASCULAR: Regular rate and rhythm RESPIRATORY: Breath sounds equal bilaterally. No accessory muscle use. GASTROINTESTINAL: Abdomen soft, non-tender, nondistended. EXTREMITIES: No cyanosis NEUROLOGICAL: No obvious focal deficit. Awake, alert, and oriented x3. Assessment/Plan Problem List: (1) AML (acute myelogenous leukemia) ICD Codes: C92.00 - Acute myeloblastic leukemia, not having achieved remission Plan: 03/01: admitted for consolidation chemotherapy with High dose LUISANA-C. D1A given at 1600 03/02: D1B given at 0400. --diagnosed in January 2017. FLT-3 negative, +inversion 16, carries a favorable risk. --s/p induction chemotherapy with daunorubicin and cytarabine, 7+3 regimen. --> achieved complete remission. --Monitor for tumor lysis syndrome. Check daily uric acid level. Check daily phosphorus level. --Continue Bactrim double-strength Wednesday, Wednesday and Wednesday, Cipro 250 mg Wednesday, and Wednesday. --Continue acyclovir 200 mg p.o. b.i.d. (2) Abdominal pain ICD Codes: R10.9 - Unspecified abdominal pain Plan: --will consult GI for repeat EGD --unclear etiology --full workup at last admission did not elicit a source of the patient's severe intermittent abdominal pain. --Oxycodone PRN -on Carafate + Protonix. (3) DVT prophylaxis Plan: --Lovenox 40mg SQ daily Assessment 27y/o male with acute myeloid leukemia status post induction chemotherapy, who is now being admitted for consolidation chemotherapy. Plan 1. monitor CBC, CMP, uric acid phosphorus daily 2. consult GI for persistent abdominal pain. Attending Statement The exam, history, and the medical decision-making described in the above note were completed with the assistance of the mid-level provider. I reviewed and agree with the findings presented. I attest that I had a [id number] encounter with the patient on the same day, and personally performed and documented my assessment and findings in the medical record. AML INV 16 s/p induction and in CR #1 getting HiDAC consolidation cycle # 1 monitor for for tumor lysis start allopurinol 200mg po bid anti-emetics prn for nausea abdominal pain remains as issue pain meds ordered GI seeing patient On rounds patient was in no apparent pain, sitting up and indulging in a giant roast beef sandwich and watching a movie monitor electrolytes d/w rn o/n venets reviewed Fartun Pagan Mar 02, 2017 11:28 Joey Santoyo MD Mar 03, 2017 00:11
[2017-03-02 11:31] VITALS: BP 128/53; PULSE 68; RESP 18; TEMP 97.9; O2SAT 97
[2017-03-02] MEDS: ENOXAPARIN SODIUM 40 MG/0.4 ML SYRINGE SQ SCH (13:27)
[2017-03-02] MEDS: CIPROFLOXACIN 250 MG TAB PO SCH (15:10)
[2017-03-02] MEDS: GRANISETRON INJ 1 MG, DEXAMETHASONE INJ 20 MG in SODIUM CHLORIDE 0.9% INJ 50 ML IV SCH (16:07)
[2017-03-02 16:44] LABS: URIC ACID 7.3 MG/DL (2.6-7.2)
--- NOTE | 2017-03-02 16:46 | MB ---
cc: CLAUDIO DAVIS M.D. DATE OF CONSULTATION: 03/02/2017 REASON FOR CONSULTATION: Abdominal pain HISTORY OF PRESENT ILLNESS: Thank you for the consultation, this is a 27-year-old gentleman who was diagnosed with acute myeloid leukemia on December 29 the patient was started with chemotherapy. The patient was complaining of abdominal pain. He had an endoscopy about a month ago which showed severe Ladan esophagitis with severe gastritis and esophageal ulcers biopsy was not done because the patient was on chemotherapy with pancytopenia. The patient was discharged went home was doing okay but still complaining of abdominal pain in the midepigastric and right upper quadrant on and off mostly around his chemotherapy but it can happen any time if she usually cramping day and to do no sharp pain. No radiation not related to food. The patient denied any other problem at this time. Use. PAST MEDICAL HISTORY Significant for acute myeloid leukemia. MEDICATIONS Reviewed in the chart. PAST SURGICAL HISTORY Bone marrow biopsy Upper endoscopy. REVIEW OF SYSTEMS All 12-point negative except HPI. FAMILY HISTORY Noncontributory SOCIAL HISTORY No tobacco, drug or alcohol at this time. PHYSICAL EXAMINATION IN GENERAL: Alert, oriented no acute distress. VITAL SIGNS: Stable. HEAD, EYES, EARS, NOSE, AND THROAT: Normal. Pupils are reactive to light. NECK: Supple. CHEST: Morbid obesity, Clear to auscultation and percussion. CARDIAC: Regular rate and rhythm. ABDOMEN: Soft, nondistended. Positive bowel sounds. EXTREMITIES: No edema, clubbing or cyanosis. NEUROLOGIC: Neurologically intact. PSYCHOLOGICALLY: psychologically appropriate. LABORATORY DATA White count 15.20, hemoglobin 10.8, platelet 358, INR 1.1. Liver function tests completely normal. INR is 293. HABITS Denies. ASSESSMENT/PLAN 27-year-old gentleman with abdominal pain, history of esophageal ulcer, Ladan esophagitis and gastritis. Continue to have discomfort. The patient on PPI and Carafate recommend repeating upper endoscopy tomorrow to evaluate for peptic ulcer disease, we will check lipase to make sure that the patient does not have pancreatitis which may happen with chemotherapy. Further plan depends on the results of the above. The patient understood the plan and will proceed accordingly. If all negative. We may need to consider CT scan of the abdomen again. MD Kendra Moise /3:51 PM /4:36 PM
[2017-03-02] MEDS: HYDROmorphone HCL PF 2 MG/ML VIAL IV PUSH PRN (16:59)
[2017-03-02] MEDS: ONDANSETRON HCL 4 MG/2 ML VIAL IV PUSH PRN (17:02)
[2017-03-02 18:11] VITALS: BP 128/60; PULSE 80; RESP 18; TEMP 97.3; O2SAT 97
[2017-03-02 20:45] VITALS: BP 123/60; PULSE 95; RESP 16; TEMP 98.2; O2SAT 97
[2017-03-03] VITALS: BP 122/48; PULSE 86; RESP 16; TEMP 97.9; O2SAT 97
[2017-03-03] MEDS: HYDROmorphone HCL PF 2 MG/ML VIAL IV PUSH PRN ×3 (01:51→20:41)
[2017-03-03 04:25] VITALS: BP 109/43; PULSE 92; RESP 16; TEMP 97.5; O2SAT 98
[2017-03-03 04:49] LABS: AUTOMATED NEUTROPHIL # 11.7 TH/MM3 (1.8-7.7); BASOPHIL # 0.1 TH/MM3 (0-0.2); BASOPHIL % 0.5 % (0.0-2.0); HEMATOCRIT 31.6 % (39.0-51.0); HEMO FLAGS DIFF FINAL; LYMPH % 1.9 % (9.0-44.0); LYMPHOCYTE # 0.2 TH/MM3 (1.0-4.8); MEAN CELL VOLUME 82.8 FL (80.0-100.0); MEAN CORPUSCULAR HEMOGLOBIN 26.5 PG (27.0-34.0); MONO % 2.1 % (0.0-8.0); NEUT % 95.5 % (16.0-70.0); PLATELET COUNT 337 TH/MM3 (150-450); RED BLOOD COUNT 3.81 MIL/MM3 (4.50-5.90); RED CELL DISTRIBUTION WIDTH 15.2 % (11.6-17.2); WHITE BLOOD COUNT 12.2 TH/MM3 (4.0-11.0)
[2017-03-03 05:11] LABS: ALT (GPT) 35 U/L (12-78); ANION GAP 7 MEQ/L (5-15); AST (GOT) 10 U/L (15-37); BICARBONATE 28.5 MEQ/L (21.0-32.0); BLOOD UREA NITROGEN 11 MG/DL (7-18); CHLORIDE 105 MEQ/L (98-107); GLOMERULAR FILTRATION RATE 137 ML/MIN (>89); POTASSIUM 3.9 MEQ/L (3.5-5.1); SODIUM (NA) 140 MEQ/L (136-145); URIC ACID 5.9 MG/DL (2.6-7.2)
[2017-03-03 05:13] LABS: ALKALINE PHOSPHATASE 68 U/L (45-117); TOTAL BILIRUBIN ADULT 0.5 MG/DL (0.2-1.0)
[2017-03-03] MEDS ORDERED: LACTATED RINGER'S 1000 ML IV PRN (05:45)
[2017-03-03] MEDS ORDERED: METOPROLOL TARTRATE 25 MG TAB PO PRN (05:45)
[2017-03-03] MEDS ORDERED: SODIUM CHLORID 0.9% 500 ML IV PRN (05:45)
[2017-03-03] MEDS ORDERED: POVIDONE IODINE 5% (ANTISEPSIS KIT) 4 APPLICATIONS EACH NARE PRN (05:45)
[2017-03-03] MEDS ORDERED: CHLORHEXIDINE GLUCONATE 2 % 1 PACK (2 CLOTHS) TOPICAL PRN (05:45)
[2017-03-03 05:58] LABS: APTT (PATIENT) 25.9 SEC (24.3-30.1); PROTHROMBIN TIME - PATIENT 10.7 SEC (9.8-11.6)
[2017-03-03] MEDS ORDERED: SODIUM CHLORIDE 0.9% FLUSH 10 ML FLUSH IV FLUSH PRN (06:15)
[2017-03-03] MEDS: SUCRALFATE 1 GM/10 ML CUP PO SCH ×4 (08:28→20:41)
[2017-03-03] MEDS: PANTOPRAZOLE SOD 40 MG DELAYED RELEASE TAB PO SCH (08:28)
[2017-03-03] MEDS: DEXAMETHASONE SOD PHOS 0.1% OPHT SOLN 5 ML BTL EACH EYE SCH ×3 (08:29→20:41)
[2017-03-03 08:35] VITALS: BP 133/70; PULSE 83; RESP 18; TEMP 97.5; O2SAT 98
[2017-03-03] MEDS: ALLOPURINOL 100 MG TAB PO SCH ×2 (10:49→20:41)
--- NOTE | 2017-03-03 12:11 | PD.ONC.PN ---
Subjective Subjective Remarks Afebrile overnight Pt resting in bed watching a movie Asking when he will have endoscopy as he would like to eat Abdominal pain "about the same" Objective Data Date Time Temp Pulse Resp B/P (MAP) Pulse Ox O2 Delivery O2 Flow Rate FiO2 03/03/17 08:35 97.5 83 18 133/70 (91) 98 03/03/17 04:25 97.5 92 16 109/43 (65) 98 03/03/17 00:00 97.9 86 16 122/48 (72) 97 03/02/17 20:45 98.2 95 16 123/60 (81) 97 03/02/17 18:11 97.3 80 18 128/60 (82) 97 03/03/17 03/03/17 03/03/17 07:00 15:00 23:00 Intake Total 1345 ml Output Total 600 ml Balance 745 ml Result Diagram: 03/03/17 0430 03/03/17 0430 Laboratory Results Laboratory Tests Test 03/02/17 16:08 03/03/17 04:30 03/03/17 05:35 Uric Acid 7.3 MG/DL 5.9 MG/DL Phosphorus Level 3.7 MG/DL 3.8 MG/DL Lipase 55 U/L White Blood Count 12.2 TH/MM3 Red Blood Count 3.81 MIL/MM3 Hemoglobin 10.1 GM/DL Hematocrit 31.6 % Mean Corpuscular Volume 82.8 FL Mean Corpuscular Hemoglobin 26.5 PG Mean Corpuscular Hemoglobin Concent 32.0 % Red Cell Distribution Width 15.2 % Platelet Count 337 TH/MM3 Mean Platelet Volume 7.0 FL Neutrophils (%) (Auto) 95.5 % Lymphocytes (%) (Auto) 1.9 % Monocytes (%) (Auto) 2.1 % Eosinophils (%) (Auto) 0.0 % Basophils (%) (Auto) 0.5 % Neutrophils # (Auto) 11.7 TH/MM3 Lymphocytes # (Auto) 0.2 TH/MM3 Monocytes # (Auto) 0.3 TH/MM3 Eosinophils # (Auto) 0.0 TH/MM3 Basophils # (Auto) 0.1 TH/MM3 CBC Comment DIFF FINAL Differential Comment Blood Urea Nitrogen 11 MG/DL Creatinine 0.70 MG/DL Random Glucose 139 MG/DL Total Protein 7.0 GM/DL Albumin 3.0 GM/DL Calcium Level 8.4 MG/DL Alkaline Phosphatase 68 U/L Aspartate Amino Transf (AST/SGOT) 10 U/L Alanine Aminotransferase (ALT/SGPT) 35 U/L Total Bilirubin 0.5 MG/DL Sodium Level 140 MEQ/L Potassium Level 3.9 MEQ/L Chloride Level 105 MEQ/L Carbon Dioxide Level 28.5 MEQ/L Anion Gap 7 MEQ/L Estimat Glomerular Filtration Rate 137 ML/MIN Prothrombin Time 10.7 SEC Prothromb Time International Ratio 1.0 RATIO Activated Partial Thromboplast Time 25.9 SEC Administered Medications Medications (Trade) Dose Ordered Sig/Emma Route PRN Reason Start Time Stop Time Status Last Admin Dose Admin Oxycodone HCl (Roxicodone) 10 mg Q6H PRN PO pain 03/01/17 12:00 03/03/17 08:29 Dexamethasone Sodium Phosphate (Decadron Opth 0.1% Soln) 2 drop QID EACH EYE 03/01/17 13:00 03/08/17 09:01 03/03/17 08:29 Pantoprazole Sodium (Protonix) 40 mg DAILY PO 03/01/17 14:00 03/03/17 08:28 Sucralfate (Carafate Liq) 1 gm ACHS PO 03/01/17 17:00 03/03/17 08:28 Granisetron HCl 1 mg/Dexamethasone Sodium Phosphate 20 mg/Sodium Chloride 56 ml @ 336 mls/hr DAILY@1530 IV 03/01/17 15:30 03/05/17 15:39 03/02/17 16:07 Sodium Chloride 1,000 ml @ 50 mls/hr Q20H IV 03/01/17 14:00 03/02/17 21:11 Ciprofloxacin (Cipro) 250 mg TuThSa PO 03/02/17 14:00 03/02/17 15:10 Enoxaparin Sodium (Lovenox Inj) 40 mg Q24H SQ 03/02/17 13:00 03/02/17 13:27 Ondansetron HCl (Zofran Inj) 4 mg Q6HR PRN IV PUSH nausea 03/02/17 11:30 03/02/17 17:02 Hydromorphone HCl (Dilaudid Pf Inj) 1 mg Q8HR PRN IV PUSH severe breakthrough pain 03/02/17 15:45 03/03/17 10:50 Allopurinol (Zyloprim) 200 mg BID PO 03/03/17 09:15 03/03/17 10:49 Objective Remarks GENERAL: Young man, sitting up in bed watching TV in no acute distress. SKIN: Warm and dry. HEAD: Normocephalic. EYES: No scleral icterus. No injection or drainage. NECK: Supple, trachea midline. CARDIOVASCULAR: Regular rate and rhythm RESPIRATORY: Breath sounds equal bilaterally. No accessory muscle use. GASTROINTESTINAL: Abdomen soft, non-tender, nondistended. EXTREMITIES: No cyanosis NEUROLOGICAL: No obvious focal deficit. Awake, alert, and oriented x3. Assessment/Plan Problem List: (1) AML (acute myelogenous leukemia) ICD Codes: C92.00 - Acute myeloblastic leukemia, not having achieved remission Plan: 03/01: admitted for consolidation chemotherapy with High dose LUISANA-C. D1A given at 1600 03/02: D1B given at 0400. 03/03: D2A scheduled for 1600 --diagnosed in January 2017. FLT-3 negative, +inversion 16, carries a favorable risk. --s/p induction chemotherapy with daunorubicin and cytarabine, 7+3 regimen. --> achieved complete remission. --Monitor for tumor lysis syndrome. Check daily uric acid level. Check daily phosphorus level. --Continue Bactrim double-strength Wednesday, Wednesday and Wednesday, Cipro 250 mg Wednesday, and Wednesday. --Continue acyclovir 200 mg p.o. b.i.d. (2) Abdominal pain ICD Codes: R10.9 - Unspecified abdominal pain Plan: --GI planning to do repeat endoscopy today --full workup at last admission did not elicit a source of the patient's severe intermittent abdominal pain. --Oxycodone PRN -on Carafate + Protonix. (3) DVT prophylaxis Plan: --Lovenox 40mg SQ daily Assessment 27y/o male with acute myeloid leukemia status post induction chemotherapy, who is now being admitted for consolidation chemotherapy. Plan 1. Continue chemotherapy; today will be day #2 of planned 3 of high dose Luisana-C. 2. On allopurinol for TLS prophylaxis 2. Await results of endoscopy with GI planned for today 4. Daily CBC, CMP, Phos, Mag and Uric acid. Attending Statement The exam, history, and the medical decision-making described in the above note were completed with the assistance of the mid-level provider. I reviewed and agree with the findings presented. I attest that I had a [id number] encounter with the patient on the same day, and personally performed and documented my assessment and findings in the medical record. AML INV 16 s/p induction and in CR #1 Day # 2 of HiDAC consolidation no major side-effects abdominal pain w/u per GI EGD and CT scans today check daily electrolytes, mag and phosp anemia noted --borderline microcytic iron studies/b12 and folate coags in am no evidence of TLS daily uric acid d/w rn o/n events reviewed Robina Cui Mar 03, 2017 12:11 Joey Santoyo MD Mar 03, 2017 21:39
[2017-03-03] MEDS ORDERED: PROPOFOL 200 MG/20 ML AMP ONE (12:17)
[2017-03-03] MEDS ORDERED: MIDAZOLAM HCL 2 MG/2 ML VIAL ONE (12:27)
--- NOTE | 2017-03-03 12:50 | HHI.GIFU ---
Subjective Remarks EGD performed. No ulcer seen. Mild gastritis. Biopsy taken for histology and rule out H Pylori. He will need CT scan to eval for pancreatitis. Objective Vitals I&O Vital Signs Date Time Temp Pulse Resp B/P (MAP) Pulse Ox O2 Delivery O2 Flow Rate FiO2 03/03/17 08:35 97.5 83 18 133/70 (91) 98 03/03/17 04:25 97.5 92 16 109/43 (65) 98 03/03/17 00:00 97.9 86 16 122/48 (72) 97 03/02/17 20:45 98.2 95 16 123/60 (81) 97 03/02/17 18:11 97.3 80 18 128/60 (82) 97 I/O 03/02/17 03/02/17 03/02/17 03/03/17 03/03/17 03/03/17 07:00 15:00 23:00 07:00 15:00 23:00 Intake Total 740 ml 320 ml 665 ml 1345 ml Output Total 900 ml 600 ml 600 ml Balance -160 ml 320 ml 65 ml 745 ml Intake Oral 480 ml 1200 ml IV Total 260 ml 320 ml 665 ml 145 ml Output Urine Total 900 ml 600 ml 600 ml # Voids 5 # Bowel Movements 0 1 Laboratory Laboratory Tests Test 03/02/17 16:08 03/03/17 04:30 03/03/17 05:35 Uric Acid 7.3 5.9 Phosphorus Level 3.7 3.8 Lipase 55 White Blood Count 12.2 Red Blood Count 3.81 Hemoglobin 10.1 Hematocrit 31.6 Mean Corpuscular Volume 82.8 Mean Corpuscular Hemoglobin 26.5 Mean Corpuscular Hemoglobin Concent 32.0 Red Cell Distribution Width 15.2 Platelet Count 337 Mean Platelet Volume 7.0 Neutrophils (%) (Auto) 95.5 Lymphocytes (%) (Auto) 1.9 Monocytes (%) (Auto) 2.1 Eosinophils (%) (Auto) 0.0 Basophils (%) (Auto) 0.5 Neutrophils # (Auto) 11.7 Lymphocytes # (Auto) 0.2 Monocytes # (Auto) 0.3 Eosinophils # (Auto) 0.0 Basophils # (Auto) 0.1 CBC Comment DIFF FINAL Differential Comment Blood Urea Nitrogen 11 Creatinine 0.70 Random Glucose 139 Total Protein 7.0 Albumin 3.0 Calcium Level 8.4 Alkaline Phosphatase 68 Aspartate Amino Transf (AST/SGOT) 10 Alanine Aminotransferase (ALT/SGPT) 35 Total Bilirubin 0.5 Sodium Level 140 Potassium Level 3.9 Chloride Level 105 Carbon Dioxide Level 28.5 Anion Gap 7 Estimat Glomerular Filtration Rate 137 Prothrombin Time 10.7 Prothromb Time International Ratio 1.0 Activated Partial Thromboplast Time 25.9 Physical Exam HEENT: Pupils round and reactive to light; normocephalic; atraumatic; no jaundice. Throat is clear. NECK: Neck is supple, no JVD, no lymphadenopathy. CHEST: Chest is clear to auscultation and percussion. CARDIAC: Regular rate and rhythm with no murmur gallop or rubs. ABDOMEN: Soft, nondistended, nontender; no hepatosplenomegaly; bowel sounds are present in all four quadrants. EXTREMITIES: No clubbing, cyanosis, or edema. SKIN: Normal; no rash; no jaundice. FOLDER OPERATOR: No focal deficits; alert and oriented times three. Assessment and Plan Plan Imp: Epigastric pain with chemotherapy. Mild gastritis on EGD. biopsy pending. Plan: CT scan abdomen and pelvis. with contrast. Await biopsy result. James Rosas MD Mar 03, 2017 12:50
[2017-03-03] MEDS ORDERED: DIATRIZOATE MEGLUM/DIATRIZOATE SOD 9 ML CUP PO ONE (14:00)
[2017-03-03] MEDS: ENOXAPARIN SODIUM 40 MG/0.4 ML SYRINGE SQ SCH (14:08)
[2017-03-03] MEDS: SULFAMETHOXAZOLE-TRIMETHOPRIM 400-80 MG TAB PO SCH (14:08)
[2017-03-03] MEDS: GRANISETRON INJ 1 MG, DEXAMETHASONE INJ 20 MG in SODIUM CHLORIDE 0.9% INJ 50 ML IV SCH (15:06)
[2017-03-03] MEDS: SODIUM CHLOR 0.9% IV SCH (16:34)
[2017-03-03] MEDS: CYTARABINE IV SCH (16:34)
[2017-03-03 16:38] VITALS: BP 113/46; PULSE 61; RESP 16; TEMP 97.7; O2SAT 97
[2017-03-03 20:00] VITALS: BP 127/64; PULSE 84; RESP 19; TEMP 98.3; O2SAT 96
[2017-03-04] VITALS: BP 111/45; PULSE 71; RESP 18; TEMP 98.3; O2SAT 96
[2017-03-04] MEDS ORDERED: IOHEXOL 350 MG/ML 10 ML VIAL (for RAD DIAG) IVCONTRAST ONE (00:56)
--- NOTE | 2017-03-04 01:07 | RADRPT ---
EXAM DATE/TIME: 03/04/2017 00:38 [facility] COMPARISON: CT ABDOMEN & PELVIS W CONTRAST, January 06, 2017, 15:12. INDICATIONS : Epigastric abdominal pain. IV CONTRAST: 100 cc Omnipaque 350 (iohexol) IV ORAL CONTRAST: Prescribed oral contrast ingested. RADIATION DOSE: 33.01 CTDIvol (mGy) ; Patient body habitus MEDICAL HISTORY : Ulcers. Acute myeloblastic leukemia. Chemotherapy. SURGICAL HISTORY : None. ENCOUNTER: Subsequent ACUITY: 3 days PAIN SCALE: 7/10 LOCATION: Bilateral upper quadrant TECHNIQUE: Volumetric scanning of the abdomen and pelvis was performed. Using automated exposure control and ad justment of the mA and/or kV according to patient size, radiation dose was kept as low as reasonably achievable to obtain optimal diagnostic quality images. DICOM format image data is available electro nically for review and comparison. FINDINGS: LOWER LUNGS: Minimal right basilar scarring. LIVER: Homogeneous density without lesion. There is no dilation of the biliary tree. No calcified gallston es. Gallbladder is contracted. SPLEEN: Normal size without lesion. PANCREAS: Within normal limits. KIDNEYS: Normal in size and shape. There is no mass, stone or hydronephrosis. ADRENAL GLANDS: Within normal limits. VASCULAR: There is no aortic aneurysm. BOWEL/MESENTERY: The stomach, small bowel, and colon demonstrate no acute abnormality. There is no free intraperitone al air or fluid. Normal appendix. Copious amount stool in the rectum. ABDOMINAL WALL: Within normal limits. RETROPERITONEUM: There is no lymphadenopathy. BLADDER: No wall thickening or mass. REPRODUCTIVE: Within normal limits. INGUINAL: There is no lymphadenopathy or hernia. MUSCULOSKELETAL: Within normal limits for patient age. CONCLUSION: 1. No acute inflammatory process. 2. Gallbladder is contracted limiting evaluation. 3. Normal appendix. 4. Constipation. Carlos Toth MD on March 04, 2017 at 1:02 Board Certified Radiologist. This report was verified electronically.
[2017-03-04] MEDS: ONDANSETRON HCL 4 MG/2 ML VIAL IV PUSH PRN (01:43)
[2017-03-04] MEDS: SODIUM CHLOR 0.9% 1000 ML INJ 1,000 ML IV SCH (01:47)
[2017-03-04 04:00] VITALS: BP 127/50; PULSE 69; RESP 16; TEMP 97.7; O2SAT 95
[2017-03-04] MEDS: CYTARABINE IV SCH (04:12)
[2017-03-04] MEDS: SODIUM CHLOR 0.9% IV SCH (04:12)
[2017-03-04] MEDS: HYDROmorphone HCL PF 2 MG/ML VIAL IV PUSH PRN ×3 (04:33→21:04)
[2017-03-04 05:06] LABS: AUTOMATED NEUTROPHIL # 12.8 TH/MM3 (1.8-7.7); HEMO FLAGS DIFF FINAL; LYMPH % 1.2 % (9.0-44.0); LYMPHOCYTE # 0.2 TH/MM3 (1.0-4.8); MEAN CELL VOLUME 83.2 FL (80.0-100.0); MEAN CORPUSCULAR HEMOGLOBIN 27.2 PG (27.0-34.0); MEAN CORPUSCULAR HGB CONC 32.6 % (32.0-36.0); MONO % 1.6 % (0.0-8.0); NEUT % 97.2 % (16.0-70.0); PLATELET COUNT 308 TH/MM3 (150-450); RED BLOOD COUNT 3.72 MIL/MM3 (4.50-5.90); RED CELL DISTRIBUTION WIDTH 15.6 % (11.6-17.2); WHITE BLOOD COUNT 13.2 TH/MM3 (4.0-11.0)
[2017-03-04 05:17] LABS: INTERNATIONAL NORMALIZED RATIO 0.9 RATIO; PROTHROMBIN TIME - PATIENT 10.2 SEC (9.8-11.6)
[2017-03-04 05:48] LABS: ALKALINE PHOSPHATASE 57 U/L (45-117); ALT (GPT) 33 U/L (12-78); ANION GAP 7 MEQ/L (5-15); AST (GOT) 16 U/L (15-37); BICARBONATE 26.9 MEQ/L (21.0-32.0); BLOOD UREA NITROGEN 15 MG/DL (7-18); CHLORIDE 105 MEQ/L (98-107); GLOMERULAR FILTRATION RATE 125 ML/MIN (>89); MAGNESIUM 2.2 MG/DL (1.5-2.5); POTASSIUM 3.7 MEQ/L (3.5-5.1); SODIUM (NA) 139 MEQ/L (136-145); TOTAL BILIRUBIN ADULT 0.3 MG/DL (0.2-1.0); URIC ACID 3.9 MG/DL (2.6-7.2)
[2017-03-04 06:00] LABS: FERRITIN 1219 NG/ML (26-388); TRANSFERRIN IRON PROFILE 131 MG/DL (200-360)
[2017-03-04] MEDS: SUCRALFATE 1 GM/10 ML CUP PO SCH ×4 (08:49→19:41)
[2017-03-04] MEDS: PANTOPRAZOLE SOD 40 MG DELAYED RELEASE TAB PO SCH (08:49)
[2017-03-04] MEDS: DEXAMETHASONE SOD PHOS 0.1% OPHT SOLN 5 ML BTL EACH EYE SCH ×4 (08:49→19:41)
[2017-03-04 08:55] VITALS: BP 112/64; PULSE 67; RESP 16; TEMP 97.7; O2SAT 96
--- NOTE | 2017-03-04 11:28 | PD.ONC.PN ---
Subjective Subjective Remarks Afebrile overnight Asking to have a regular diet Objective Data Date Time Temp Pulse Resp B/P (MAP) Pulse Ox O2 Delivery O2 Flow Rate FiO2 03/04/17 08:55 97.7 67 16 112/64 (80) 96 03/04/17 04:00 97.7 69 16 127/50 (75) 95 03/04/17 00:00 98.3 71 18 111/45 (67) 96 03/03/17 20:00 98.3 84 19 127/64 (85) 96 03/03/17 16:38 97.7 61 16 113/46 (68) 97 03/03/17 13:13 68 20 139/71 (93) 98 03/03/17 12:48 98.2 72 16 129/66 (87) 96 03/04/17 03/04/17 03/04/17 07:00 15:00 23:00 Intake Total 340 ml Output Total 800 ml 800 ml Balance -800 ml -460 ml Result Diagram: 03/04/17 0420 03/04/17 0420 Laboratory Results Laboratory Tests Test 03/04/17 04:20 White Blood Count 13.2 TH/MM3 Red Blood Count 3.72 MIL/MM3 Hemoglobin 10.1 GM/DL Hematocrit 31.0 % Mean Corpuscular Volume 83.2 FL Mean Corpuscular Hemoglobin 27.2 PG Mean Corpuscular Hemoglobin Concent 32.6 % Red Cell Distribution Width 15.6 % Platelet Count 308 TH/MM3 Mean Platelet Volume 7.4 FL Neutrophils (%) (Auto) 97.2 % Lymphocytes (%) (Auto) 1.2 % Monocytes (%) (Auto) 1.6 % Eosinophils (%) (Auto) 0.0 % Basophils (%) (Auto) 0.0 % Neutrophils # (Auto) 12.8 TH/MM3 Lymphocytes # (Auto) 0.2 TH/MM3 Monocytes # (Auto) 0.2 TH/MM3 Eosinophils # (Auto) 0.0 TH/MM3 Basophils # (Auto) 0.0 TH/MM3 CBC Comment DIFF FINAL Differential Comment Prothrombin Time 10.2 SEC Prothromb Time International Ratio 0.9 RATIO Blood Urea Nitrogen 15 MG/DL Creatinine 0.76 MG/DL Random Glucose 175 MG/DL Total Protein 6.5 GM/DL Albumin 3.0 GM/DL Calcium Level 8.8 MG/DL Phosphorus Level 2.8 MG/DL Magnesium Level 2.2 MG/DL Uric Acid 3.9 MG/DL Alkaline Phosphatase 57 U/L Aspartate Amino Transf (AST/SGOT) 16 U/L Alanine Aminotransferase (ALT/SGPT) 33 U/L Total Bilirubin 0.3 MG/DL Sodium Level 139 MEQ/L Potassium Level 3.7 MEQ/L Chloride Level 105 MEQ/L Carbon Dioxide Level 26.9 MEQ/L Anion Gap 7 MEQ/L Estimat Glomerular Filtration Rate 125 ML/MIN Iron Level 174 MCG/DL Total Iron Binding Capacity 183 MCG/DL Percent Iron Saturation 94.9 % Ferritin 1219 NG/ML Vitamin B12 Level 258 PG/ML Folate 2.9 NG/ML Administered Medications Medications (Trade) Dose Ordered Sig/Emma Route PRN Reason Start Time Stop Time Status Last Admin Dose Admin Oxycodone HCl (Roxicodone) 10 mg Q6H PRN PO pain 03/01/17 12:00 03/04/17 08:49 Dexamethasone Sodium Phosphate (Decadron Opth 0.1% Soln) 2 drop QID EACH EYE 03/01/17 13:00 03/08/17 09:01 03/04/17 08:49 Pantoprazole Sodium (Protonix) 40 mg DAILY PO 03/01/17 14:00 03/04/17 08:49 Sucralfate (Carafate Liq) 1 gm ACHS PO 03/01/17 17:00 03/04/17 08:49 Granisetron HCl 1 mg/Dexamethasone Sodium Phosphate 20 mg/Sodium Chloride 56 ml @ 336 mls/hr DAILY@1530 IV 03/01/17 15:30 03/05/17 15:39 03/03/17 15:06 Sodium Chloride 1,000 ml @ 50 mls/hr Q20H IV 03/01/17 14:00 03/04/17 01:47 Trimethoprim/ Sulfamethoxazole (Bactrim 400-80 Mg) 1 tab MoWeFr PO 03/03/17 14:00 03/03/17 14:08 Ciprofloxacin (Cipro) 250 mg TuThSa PO 03/02/17 14:00 03/02/17 15:10 Enoxaparin Sodium (Lovenox Inj) 40 mg Q24H SQ 03/02/17 13:00 03/03/17 14:08 Ondansetron HCl (Zofran Inj) 4 mg Q6HR PRN IV PUSH nausea 03/02/17 11:30 03/04/17 01:43 Hydromorphone HCl (Dilaudid Pf Inj) 1 mg Q8HR PRN IV PUSH severe breakthrough pain 03/02/17 15:45 03/04/17 04:33 Allopurinol (Zyloprim) 200 mg BID PO 03/03/17 09:15 03/03/17 20:41 Objective Remarks GENERAL: Young man, asleep in bed in no acute distress. Awakens easily. SKIN: Warm and dry. HEAD: Normocephalic. EYES: No scleral icterus. No injection or drainage. NECK: Supple, trachea midline. CARDIOVASCULAR: Regular rate and rhythm RESPIRATORY: Breath sounds equal bilaterally. No accessory muscle use. GASTROINTESTINAL: Abdomen soft, non-tender, nondistended. EXTREMITIES: No cyanosis NEUROLOGICAL: No obvious focal deficit. Awake, alert, and oriented x3. Assessment/Plan Problem List: (1) AML (acute myelogenous leukemia) ICD Codes: C92.00 - Acute myeloblastic leukemia, not having achieved remission Plan: 03/01: admitted for consolidation chemotherapy with High dose LUISANA-C. D1A given at 1600 03/02: D1B given at 0400. 03/03: D2A given at 1600 03/04: D2B given at 0400 --diagnosed in January 2017. FLT-3 negative, +inversion 16, carries a favorable risk. --s/p induction chemotherapy with daunorubicin and cytarabine, 7+3 regimen. --> achieved complete remission. --Monitor for tumor lysis syndrome. Check daily uric acid level. Check daily phosphorus level. --Continue Bactrim double-strength Wednesday, Wednesday and Wednesday, Cipro 250 mg Wednesday, and Wednesday. --Continue acyclovir 200 mg p.o. b.i.d. (2) Abdominal pain ICD Codes: R10.9 - Unspecified abdominal pain Plan: --Biopsy pending --full workup at last admission did not elicit a source of the patient's severe intermittent abdominal pain. --Oxycodone PRN -on Carafate + Protonix. (3) DVT prophylaxis Plan: --Lovenox 40mg SQ daily Assessment 27y/o male with acute myeloid leukemia status post induction chemotherapy, who is now being admitted for consolidation chemotherapy. Plan 1. Continue chemotherapy; off day today and will resume last dose of this cycle tomorrow. 2. Iron studies normal. Will follow MCV. 2. Endoscopy shows gastritis; biopsy ordered. Will advance diet. 4. Daily CBC, CMP, Phos, Mag and Uric acid. Attending Statement The exam, history, and the medical decision-making described in the above note were completed with the assistance of the mid-level provider. I reviewed and agree with the findings presented. I attest that I had a [id number] encounter with the patient on the same day, and personally performed and documented my assessment and findings in the medical record. AML INV 16 s/p induction and in CR #1 D# 3 No abdominal pain on my exam--was eating burrito bowl from [employer] //says appetite is up tolerating treatment monitor for TLS d/w rn o/n events reviewed Robina Cui Mar 04, 2017 11:28 Joey Santoyo MD Mar 04, 2017 22:56
[2017-03-04 12:00] VITALS: BP 134/55; PULSE 70; RESP 16; TEMP 97.6; O2SAT 98
[2017-03-04] MEDS: ALLOPURINOL 100 MG TAB PO SCH ×2 (12:18→19:41)
[2017-03-04] MEDS: ENOXAPARIN SODIUM 40 MG/0.4 ML SYRINGE SQ SCH (12:23)
--- NOTE | 2017-03-04 12:48 | RADRPT ---
EXAM DATE/TIME: 03/04/2017 11:59 [facility] COMPARISON: CT ABDOMEN & PELVIS W CONTRAST, March 04, 2017, 0:38. INDICATIONS : Abdominal pain. MEDICAL HISTORY : Leukemia. SURGICAL HISTORY : None. ENCOUNTER: Initial ACUITY: 2 months PAIN SCORE: 7/10 LOCATION: Right upper quadrant MEASUREMENTS: LIVER: 23.3 cm length COMMON DUCT: 8 mm RIGHT KIDNEY: 14.2 x 7.2 x 8.2 cm FINDINGS: LIVER: There is increased echogenicity throughout the liver. No dilated biliary ducts. The portal system is patent. There is no evidence of ascites. COMMON DUCT: No intraluminal mass or stone visualized. GALLBLADDER: No definite stones are seen. The gallbladder wall is thickened at 5 mm. No definite fluid around the gallbladder. PANCREAS: Not well visualized RIGHT KIDNEY: No evidence of hydronephrosis, stone, or mass. CONCLUSION: 1. No evidence of any definite gallstones. There is thickening of the gallbladder wall 5 mm. This can be seen with chronic gallbladder disease. 2. There is dilatation of the common bile duct at 8 mm. Recommend correlation with liver laboratory v glo. MRCP could be performed if clinically indicated. 3. Enlarged diffuse fatty infiltration of the liver. 4. Pancreas not well-visualized. Neymar Jade MD on March 04, 2017 at 12:44 Board Certified Radiologist. This report was verified electronically.
[2017-03-04] MEDS: CIPROFLOXACIN 250 MG TAB PO SCH (14:44)
--- NOTE | 2017-03-04 16:21 | HHI.GIFU ---
Subjective Remarks Up in chair. Eating pistachios. States that he still has the pain intermittently, seems to be worse on an empty stomach, not related to food intake. Objective Vitals I&O Vital Signs Date Time Temp Pulse Resp B/P (MAP) Pulse Ox O2 Delivery O2 Flow Rate FiO2 03/04/17 08:55 97.7 67 16 112/64 (80) 96 03/04/17 04:00 97.7 69 16 127/50 (75) 95 03/04/17 00:00 98.3 71 18 111/45 (67) 96 03/03/17 20:00 98.3 84 19 127/64 (85) 96 03/03/17 16:38 97.7 61 16 113/46 (68) 97 I/O 03/03/17 03/03/17 03/03/17 03/04/17 03/04/17 03/04/17 07:00 15:00 23:00 07:00 15:00 23:00 Intake Total 1345 ml 1440 ml 340 ml Output Total 600 ml 2375 ml 800 ml 800 ml Balance 745 ml -935 ml -800 ml -460 ml Intake Oral 1200 ml 1340 ml IV Total 145 ml 340 ml Other 100 ml Output Urine Total 600 ml 2375 ml 800 ml 800 ml # Voids 3 # Bowel Movements 1 Laboratory Laboratory Tests Test 03/04/17 04:20 White Blood Count 13.2 Red Blood Count 3.72 Hemoglobin 10.1 Hematocrit 31.0 Mean Corpuscular Volume 83.2 Mean Corpuscular Hemoglobin 27.2 Mean Corpuscular Hemoglobin Concent 32.6 Red Cell Distribution Width 15.6 Platelet Count 308 Mean Platelet Volume 7.4 Neutrophils (%) (Auto) 97.2 Lymphocytes (%) (Auto) 1.2 Monocytes (%) (Auto) 1.6 Eosinophils (%) (Auto) 0.0 Basophils (%) (Auto) 0.0 Neutrophils # (Auto) 12.8 Lymphocytes # (Auto) 0.2 Monocytes # (Auto) 0.2 Eosinophils # (Auto) 0.0 Basophils # (Auto) 0.0 CBC Comment DIFF FINAL Differential Comment Prothrombin Time 10.2 Prothromb Time International Ratio 0.9 Blood Urea Nitrogen 15 Creatinine 0.76 Random Glucose 175 Total Protein 6.5 Albumin 3.0 Calcium Level 8.8 Phosphorus Level 2.8 Magnesium Level 2.2 Uric Acid 3.9 Alkaline Phosphatase 57 Aspartate Amino Transf (AST/SGOT) 16 Alanine Aminotransferase (ALT/SGPT) 33 Total Bilirubin 0.3 Sodium Level 139 Potassium Level 3.7 Chloride Level 105 Carbon Dioxide Level 26.9 Anion Gap 7 Estimat Glomerular Filtration Rate 125 Iron Level 174 Total Iron Binding Capacity 183 Percent Iron Saturation 94.9 Ferritin 1219 Vitamin B12 Level 258 Folate 2.9 Imaging Last Impressions Gall Bladder Ultrasound 03/04/17 0000 Signed Impressions: Service Date/Time: February 11:59 - CONCLUSION: 1. No evidence of any definite gallstones. There is thickening of the gallbladder wall 5 mm. This can be seen with chronic gallbladder disease. 2. There is dilatation of the common bile duct at 8 mm. Recommend correlation with liver laboratory values. MRCP could be performed if clinically indicated. 3. Enlarged diffuse fatty infiltration of the liver. 4. Pancreas not well-visualized. Neymar Jade MD Abdomen/Pelvis CT 03/03/17 0000 Signed Impressions: Service Date/Time: February 00:38 - CONCLUSION: 1. No acute inflammatory process. 2. Gallbladder is contracted limiting evaluation. 3. Normal appendix. 4. Constipation. Carlos Toth MD Physical Exam HEENT:Normocephalic; atraumatic; no jaundice. CHEST: CTA CARDIAC: RRR. ABDOMEN: Soft, obese, nondistended, mild epigastric discomfort; no hepatosplenomegaly; bowel sounds are present in all four quadrants. EXTREMITIES: No clubbing, cyanosis, or edema. SKIN: Normal; no rash; no jaundice. MOLECULAR TECHNOLOGIST: No focal deficits; alert and oriented times three. Assessment and Plan Plan ASSESSMENT: - Abdominal pain with hx of severe brandon esophagitis, gastritis, esophageal ulcer. Persistent abdominal pain despite PPI and carafate. S/P EGD (03/03/17)---> No ulcer seen. Mild gastritis. Biopsy taken for histology and rule out H Pylori. CT Scan abdomen and pelvis (03/04/17)---> No acute inflammatory process, gallbladder is contracted limiting evaluation, normal appendix. Constipation. US (03/04/17)----> No evidence of any definite gallstones. There is thickening of the gallbladder wall 5 mm. This can be seen with chronic gallbladder disease. There is dilatation of the common bile duct at 8 mm. Recommend correlation with liver laboratory values. MRCP could be performed if clinically indicated. Enlarged diffuse fatty infiltration of the liver. Pancreas not well visualized. LFT unremarkable, but does have persistent leukocytosis and abdominal pain. Will get MRCP in am to better evaluate CBD. - AML. Dx 01/24. S/P induction chemotherapy. Per oncology. PLAN: - SAMANTHA - Await pathology - PPI - Carafate - MRCP in am - Monitor labs - Supportive care - Further recommendations to follow based on results of above - Pt seen and examined by Dr. Rosas and myself and this note is written on his behalf Adilene Vizcaino Mar 04, 2017 16:21
[2017-03-04 17:06] VITALS: BP 138/58; PULSE 75; RESP 16; TEMP 97.7; O2SAT 98
[2017-03-04] MEDS: GRANISETRON INJ 1 MG, DEXAMETHASONE INJ 20 MG in SODIUM CHLORIDE 0.9% INJ 50 ML IV SCH (17:33)
[2017-03-04 20:00] VITALS: BP 127/64; PULSE 84; RESP 19; TEMP 98.3; O2SAT 96
[2017-03-05] VITALS: BP 130/63; PULSE 70; RESP 16; TEMP 97.9; O2SAT 98
[2017-03-05] MEDS: SODIUM CHLOR 0.9% 1000 ML INJ 1,000 ML IV SCH ×2 (00:04→17:51)
[2017-03-05 04:00] VITALS: BP 131/55; PULSE 75; RESP 18; TEMP 97.6; O2SAT 99
[2017-03-05] MEDS: ONDANSETRON HCL 4 MG/2 ML VIAL IV PUSH PRN ×2 (04:20→10:05)
[2017-03-05 05:19] LABS: URIC ACID 2.9 MG/DL (2.6-7.2)
[2017-03-05] MEDS: HYDROmorphone HCL PF 2 MG/ML VIAL IV PUSH PRN ×2 (05:45→14:39)
--- NOTE | 2017-03-05 08:57 | HHI.GIFU ---
Subjective Remarks Resting in bed in no distress. No n/v. Continues to have epigastric pain intermittently. He is going down for HIDA/MRCP today to further evaluate gallbladder. Objective Vitals I&O Vital Signs Date Time Temp Pulse Resp B/P (MAP) Pulse Ox O2 Delivery O2 Flow Rate FiO2 03/05/17 04:00 97.6 75 18 131/55 (80) 99 03/05/17 00:00 97.9 70 16 130/63 (85) 98 03/04/17 20:00 98.3 84 19 127/64 (85) 96 03/04/17 17:06 97.7 75 16 138/58 (84) 98 03/04/17 12:00 97.6 70 16 134/55 (81) 98 I/O 03/04/17 03/04/17 03/04/17 03/05/17 03/05/17 03/05/17 07:00 15:00 23:00 07:00 15:00 23:00 Intake Total 340 ml 1856 ml 600 ml Output Total 800 ml 800 ml 850 ml 1900 ml Balance -800 ml -460 ml 1006 ml -1300 ml Intake Oral 1800 ml 600 ml IV Total 340 ml 56 ml Output Urine Total 800 ml 800 ml 850 ml 1900 ml # Bowel Movements 1 Laboratory Laboratory Tests Test 03/05/17 04:08 Uric Acid 2.9 Phosphorus Level 2.5 Imaging Last Impressions Gall Bladder Ultrasound 03/04/17 0000 Signed Impressions: Service Date/Time: February 11:59 - CONCLUSION: 1. No evidence of any definite gallstones. There is thickening of the gallbladder wall 5 mm. This can be seen with chronic gallbladder disease. 2. There is dilatation of the common bile duct at 8 mm. Recommend correlation with liver laboratory values. MRCP could be performed if clinically indicated. 3. Enlarged diffuse fatty infiltration of the liver. 4. Pancreas not well-visualized. Neymar Jade MD Abdomen/Pelvis CT 03/03/17 0000 Signed Impressions: Service Date/Time: February 00:38 - CONCLUSION: 1. No acute inflammatory process. 2. Gallbladder is contracted limiting evaluation. 3. Normal appendix. 4. Constipation. Carlos Toth MD Physical Exam HEENT:Normocephalic; atraumatic; no jaundice. CHEST: CTA CARDIAC: RRR. ABDOMEN: Soft, obese, nondistended, mild epigastric discomfort; no hepatosplenomegaly; bowel sounds are present in all four quadrants. EXTREMITIES: No clubbing, cyanosis, or edema. SKIN: Normal; no rash; no jaundice. SMOKE AND FLAME SPECIALIST: No focal deficits; alert and oriented times three. Assessment and Plan Plan ASSESSMENT: - Abdominal pain with hx of severe brandon esophagitis, gastritis, esophageal ulcer. Persistent abdominal pain despite PPI and carafate. S/P EGD (03/03/17)---> No ulcer seen. Mild gastritis. Biopsy taken for histology and rule out H Pylori. CT Scan abdomen and pelvis (03/04/17)---> No acute inflammatory process, gallbladder is contracted limiting evaluation, normal appendix. Constipation. US (03/04/17)----> No evidence of any definite gallstones. There is thickening of the gallbladder wall 5 mm. This can be seen with chronic gallbladder disease. There is dilatation of the common bile duct at 8 mm. Recommend correlation with liver laboratory values. MRCP could be performed if clinically indicated. Enlarged diffuse fatty infiltration of the liver. Pancreas not well visualized. LFT unremarkable, but does have persistent leukocytosis and abdominal pain. He is going down for HIDA/MRCP to better evaluate CBD and to r/o cholecystitis. - AML. Dx 01/24. S/P induction chemotherapy. Per oncology. PLAN: - SAMANTHA - Await pathology - PPI - Carafate - HIDA/MRCP - Monitor labs - Supportive care - Further recommendations to follow based on results of above - Pt seen and examined by Dr. Rosas and myself and this note is written on his behalf Adilene Vizcaino Mar 05, 2017 08:57
[2017-03-05 09:16] VITALS: BP 148/55; PULSE 54; RESP 16; TEMP 98.4; O2SAT 98
[2017-03-05] MEDS: ALLOPURINOL 100 MG TAB PO SCH ×2 (09:22→21:09)
[2017-03-05] MEDS: PANTOPRAZOLE SOD 40 MG DELAYED RELEASE TAB PO SCH (09:22)
[2017-03-05] MEDS: DEXAMETHASONE SOD PHOS 0.1% OPHT SOLN 5 ML BTL EACH EYE SCH ×4 (09:22→21:09)
[2017-03-05] MEDS: SUCRALFATE 1 GM/10 ML CUP PO SCH ×4 (09:22→21:08)
[2017-03-05 09:45] LABS: BASOPHIL % 0.1 % (0.0-2.0); HEMATOCRIT 30.9 % (39.0-51.0); HEMO FLAGS DIFF FINAL; LYMPH % 2.4 % (9.0-44.0); LYMPHOCYTE # 0.2 TH/MM3 (1.0-4.8); MEAN CELL VOLUME 82.6 FL (80.0-100.0); MEAN CORPUSCULAR HEMOGLOBIN 26.3 PG (27.0-34.0); MEAN CORPUSCULAR HGB CONC 31.9 % (32.0-36.0); MONO % 0.5 % (0.0-8.0); PLATELET COUNT 279 TH/MM3 (150-450); RED BLOOD COUNT 3.74 MIL/MM3 (4.50-5.90); RED CELL DISTRIBUTION WIDTH 15.5 % (11.6-17.2); WHITE BLOOD COUNT 8.2 TH/MM3 (4.0-11.0)
[2017-03-05 10:15] LABS: ANION GAP 6 MEQ/L (5-15); AST (GOT) 23 U/L (15-37); BICARBONATE 27.7 MEQ/L (21.0-32.0); BLOOD UREA NITROGEN 15 MG/DL (7-18); CHLORIDE 106 MEQ/L (98-107); GLOMERULAR FILTRATION RATE 161 ML/MIN (>89); MAGNESIUM 2.4 MG/DL (1.5-2.5); POTASSIUM 3.8 MEQ/L (3.5-5.1); SODIUM (NA) 140 MEQ/L (136-145)
[2017-03-05 10:16] LABS: ALT (GPT) 49 U/L (12-78)
[2017-03-05 10:19] LABS: ALKALINE PHOSPHATASE 52 U/L (45-117); TOTAL BILIRUBIN ADULT 0.5 MG/DL (0.2-1.0)
--- NOTE | 2017-03-05 12:22 | RADRPT ---
EXAM DATE/TIME: 03/05/2017 10:28 [facility] COMPARISON: US ABDOMEN - GALLBLADDER, March 04, 2017, 11:59. CT ABDOMEN & PELVIS W CONTRAST, March 04, 2017, 0:38. INDICATIONS : Abdominal pain. Abnormal abdomen ultrasound with dilatation common bile duct measuring up to 8 mm. Th ere is apparent mild gallbladder wall thickening. MEDICAL HISTORY : Leukemia. SURGICAL HISTORY : None. ENCOUNTER: Initial ACUITY: 1 day PAIN SCORE: 5/10 LOCATION: Abdomen. TECHNIQUE: Multiplanar, multisequence magnetic resonance imaging of the abdomen was performed. High-resolution 3D dataset was utilized to reconstruct maximum-intensity projection (MIP) images. FINDINGS: INTRAHEPATIC BILE DUCTS: Within normal limits. No significant anatomical variant is present. EXTRAHEPATIC BILE DUCTS: The common bile duct measures 7-8 mm No stone or filling defect is identified. GALLBLADDER: No stones, wall thickening, or pericholecystic fluid. LIVER: Normal size and signal intensity. No concerning liver lesion is identified on this non-contrast exam. PANCREAS: The main pancreatic duct is normal in size. There is no significant anatomical variant. Signal inte nsity is within normal limits. No mass is visualized on this non-contrast exam. OTHER: The remaining visualized structures demonstrate no acute abnormality on this non-contrast exam. CONCLUSION: 1. The common bile duct remains prominent measuring up to 7-8 mm with no filling defect or mass. The duct tapers down normally. 2. Unremarkable gallbladder. 3. The pancreas is unremarkable in appearance with no pancreatic ductal dilatation. Jose Nicholson MD on March 05, 2017 at 12:17 Board Certified Radiologist. This report was verified electronically.
[2017-03-05 12:29] VITALS: BP 118/56; PULSE 66; RESP 16; TEMP 97.8; O2SAT 98
--- NOTE | 2017-03-05 14:02 | PD.ONC.PN ---
Subjective Subjective Remarks Afebrile overnight. Patient resting in room. Denies abdominal pain at present. Resting in bed in NAD. No complaints. Objective Data Date Time Temp Pulse Resp B/P (MAP) Pulse Ox O2 Delivery O2 Flow Rate FiO2 03/05/17 12:29 97.8 66 16 118/56 (76) 98 03/05/17 09:16 98.4 54 16 148/55 (86) 98 03/05/17 04:00 97.6 75 18 131/55 (80) 99 03/05/17 00:00 97.9 70 16 130/63 (85) 98 03/04/17 20:00 98.3 84 19 127/64 (85) 96 03/04/17 17:06 97.7 75 16 138/58 (84) 98 03/05/17 03/05/17 03/05/17 07:00 15:00 23:00 Intake Total 600 ml Output Total 1900 ml Balance -1300 ml Result Diagram: 03/05/1792903/05/1730 Laboratory Results Laboratory Tests Test 03/05/17 04:08 03/05/17 09:30 Uric Acid 2.9 MG/DL Phosphorus Level 2.5 MG/DL White Blood Count 8.2 TH/MM3 Red Blood Count 3.74 MIL/MM3 Hemoglobin 9.9 GM/DL Hematocrit 30.9 % Mean Corpuscular Volume 82.6 FL Mean Corpuscular Hemoglobin 26.3 PG Mean Corpuscular Hemoglobin Concent 31.9 % Red Cell Distribution Width 15.5 % Platelet Count 279 TH/MM3 Mean Platelet Volume 7.1 FL Neutrophils (%) (Auto) 97.0 % Lymphocytes (%) (Auto) 2.4 % Monocytes (%) (Auto) 0.5 % Eosinophils (%) (Auto) 0.0 % Basophils (%) (Auto) 0.1 % Neutrophils # (Auto) 8.0 TH/MM3 Lymphocytes # (Auto) 0.2 TH/MM3 Monocytes # (Auto) 0.0 TH/MM3 Eosinophils # (Auto) 0.0 TH/MM3 Basophils # (Auto) 0.0 TH/MM3 CBC Comment DIFF FINAL Differential Comment Blood Urea Nitrogen 15 MG/DL Creatinine 0.61 MG/DL Random Glucose 99 MG/DL Total Protein 6.4 GM/DL Albumin 3.0 GM/DL Calcium Level 8.7 MG/DL Magnesium Level 2.4 MG/DL Alkaline Phosphatase 52 U/L Aspartate Amino Transf (AST/SGOT) 23 U/L Alanine Aminotransferase (ALT/SGPT) 49 U/L Total Bilirubin 0.5 MG/DL Sodium Level 140 MEQ/L Potassium Level 3.8 MEQ/L Chloride Level 106 MEQ/L Carbon Dioxide Level 27.7 MEQ/L Anion Gap 6 MEQ/L Estimat Glomerular Filtration Rate 161 ML/MIN Imaging Studies Last 24 hours Impressions Cholangiopancreatography MRI 03/05/17 0600 Signed Impressions: Service Date/Time: Sunday, March 05, 2017 10:28 - CONCLUSION: 1. The common bile duct remains prominent measuring up to 7-8 mm with no filling defect or mass. The duct tapers down normally. 2. Unremarkable gallbladder. 3. The pancreas is unremarkable in appearance with no pancreatic ductal dilatation. Jose Nicholson MD Administered Medications Medications (Trade) Dose Ordered Sig/Emma Route PRN Reason Start Time Stop Time Status Last Admin Dose Admin Oxycodone HCl (Roxicodone) 10 mg Q6H PRN PO pain 03/01/17 12:00 03/05/17 10:05 Dexamethasone Sodium Phosphate (Decadron Opth 0.1% Soln) 2 drop QID EACH EYE 03/01/17 13:00 03/08/17 09:01 03/05/17 09:22 Pantoprazole Sodium (Protonix) 40 mg DAILY PO 03/01/17 14:00 03/05/17 09:22 Sucralfate (Carafate Liq) 1 gm ACHS PO 03/01/17 17:00 03/05/17 12:29 Granisetron HCl 1 mg/Dexamethasone Sodium Phosphate 20 mg/Sodium Chloride 56 ml @ 336 mls/hr DAILY@1530 IV 03/01/17 15:30 03/05/17 15:39 03/04/17 17:33 Sodium Chloride 1,000 ml @ 50 mls/hr Q20H IV 03/01/17 14:00 03/05/17 00:04 Trimethoprim/ Sulfamethoxazole (Bactrim 400-80 Mg) 1 tab MoWeFr PO 03/03/17 14:00 03/03/17 14:08 Ciprofloxacin (Cipro) 250 mg TuThSa PO 03/02/17 14:00 03/04/17 14:44 Enoxaparin Sodium (Lovenox Inj) 40 mg Q24H SQ 03/02/17 13:00 03/04/17 12:23 Ondansetron HCl (Zofran Inj) 4 mg Q6HR PRN IV PUSH nausea 03/02/17 11:30 03/05/17 10:05 Hydromorphone HCl (Dilaudid Pf Inj) 1 mg Q8HR PRN IV PUSH severe breakthrough pain 03/02/17 15:45 03/05/17 05:45 Allopurinol (Zyloprim) 200 mg BID PO 03/03/17 09:15 03/05/17 09:22 Objective Remarks GENERAL: Young man, sitting up in bed in nad. watching tv and eating lunch. SKIN: Warm and dry. HEAD: Normocephalic. EYES: No injection or drainage. NECK: Supple, trachea midline. CARDIOVASCULAR: Regular rate and rhythm RESPIRATORY: Breath sounds equal bilaterally. No accessory muscle use. GASTROINTESTINAL: Abdomen soft, non-tender, nondistended. EXTREMITIES: No cyanosis NEUROLOGICAL: awake and alert, normal speech. Assessment/Plan Problem List: (1) AML (acute myelogenous leukemia) ICD Codes: C92.00 - Acute myeloblastic leukemia, not having achieved remission Plan: 03/01: admitted for consolidation chemotherapy with High dose LUISANA-C. D1A given at 1600 03/02: D1B given at 0400. 03/03: D2A given at 1600 03/04: D2B given at 0400 10: D3A given at 1600 --diagnosed in January 2017. FLT-3 negative, +inversion 16, carries a favorable risk. --s/p induction chemotherapy with daunorubicin and cytarabine, 7+3 regimen. --> achieved complete remission. --Monitor for tumor lysis syndrome. Check daily uric acid level. Check daily phosphorus level. --Continue Bactrim double-strength Wednesday, Wednesday and Wednesday, Cipro 250 mg Wednesday, and Wednesday. --Continue acyclovir 200 mg p.o. b.i.d. (2) Abdominal pain ICD Codes: R10.9 - Unspecified abdominal pain Plan: --Biopsy pending --full workup at last admission did not elicit a source of the patient's severe intermittent abdominal pain. --Oxycodone PRN --on Carafate + Protonix. --MRCP-->shows prominent CBD, unremarkable gallbladder (3) DVT prophylaxis Plan: --Lovenox 40mg SQ daily Assessment 27y/o male with acute myeloid leukemia status post induction chemotherapy, who is now being admitted for consolidation chemotherapy. Plan 1. Dose 3A of LUISANA-C this afternoon at 1600. Last dose tomorrow at 0400. 2. monitor CBC, CMP, Phos, Mag and Uric acid. 3. on track to be discharged tomorrow after last dose of chemotherapy. Fartun Pagan Mar 05, 2017 14:02
[2017-03-05] MEDS: SULFAMETHOXAZOLE-TRIMETHOPRIM 400-80 MG TAB PO SCH (14:29)
[2017-03-05] MEDS: ENOXAPARIN SODIUM 40 MG/0.4 ML SYRINGE SQ SCH (14:30)
[2017-03-05] MEDS ORDERED: ACYC200C66 PO (14:32)
[2017-03-05] MEDS ORDERED: CIPR250T52 PO (14:32)
[2017-03-05] MEDS ORDERED: SULF1TAB58 PO (14:32)
[2017-03-05] MEDS ORDERED: ALLO100 PO (14:36)
[2017-03-05] MEDS: GRANISETRON INJ 1 MG, DEXAMETHASONE INJ 20 MG in SODIUM CHLORIDE 0.9% INJ 50 ML IV SCH (15:41)
[2017-03-05] MEDS: SODIUM CHLOR 0.9% IV SCH (16:23)
[2017-03-05] MEDS: CYTARABINE IV SCH (16:23)
[2017-03-05 16:30] VITALS: BP 127/52; PULSE 74; RESP 17; TEMP 97.6; O2SAT 99
[2017-03-05 20:00] VITALS: BP 119/50; PULSE 66; RESP 18; TEMP 97.7; O2SAT 99
[2017-03-06] VITALS: BP 125/57; PULSE 78; RESP 18; TEMP 97.9; O2SAT 98
[2017-03-06] MEDS: HYDROmorphone HCL PF 2 MG/ML VIAL IV PUSH PRN ×2 (00:02→09:25)
[2017-03-06] MEDS: ONDANSETRON HCL 4 MG/2 ML VIAL IV PUSH PRN (00:07)
[2017-03-06 04:00] VITALS: BP 106/45; PULSE 56; RESP 15; TEMP 97.6; O2SAT 99
[2017-03-06] MEDS: SODIUM CHLOR 0.9% IV SCH (04:06)
[2017-03-06] MEDS: CYTARABINE IV SCH (04:06)
[2017-03-06 04:58] LABS: AUTOMATED NEUTROPHIL # 6.7 TH/MM3 (1.8-7.7); BASOPHIL % 0.1 % (0.0-2.0); HEMATOCRIT 30.5 % (39.0-51.0); HEMO FLAGS DIFF FINAL; LYMPH % 2.8 % (9.0-44.0); LYMPHOCYTE # 0.2 TH/MM3 (1.0-4.8); MEAN CELL VOLUME 82.8 FL (80.0-100.0); MEAN CORPUSCULAR HEMOGLOBIN 26.5 PG (27.0-34.0); MONO % 0.1 % (0.0-8.0); PLATELET COUNT 233 TH/MM3 (150-450); RED BLOOD COUNT 3.68 MIL/MM3 (4.50-5.90); RED CELL DISTRIBUTION WIDTH 15.2 % (11.6-17.2); WHITE BLOOD COUNT 6.9 TH/MM3 (4.0-11.0)
[2017-03-06 05:44] LABS: ALKALINE PHOSPHATASE 53 U/L (45-117); ALT (GPT) 89 U/L (12-78); ANION GAP 7 MEQ/L (5-15); AST (GOT) 47 U/L (15-37); BICARBONATE 28.6 MEQ/L (21.0-32.0); BLOOD UREA NITROGEN 16 MG/DL (7-18); CHLORIDE 104 MEQ/L (98-107); GLOMERULAR FILTRATION RATE 152 ML/MIN (>89); MAGNESIUM 2.3 MG/DL (1.5-2.5); POTASSIUM 3.7 MEQ/L (3.5-5.1); SODIUM (NA) 140 MEQ/L (136-145); TOTAL BILIRUBIN ADULT 0.4 MG/DL (0.2-1.0); URIC ACID 2.5 MG/DL (2.6-7.2)
[2017-03-06 08:27] VITALS: BP 139/70; PULSE 65; RESP 16; TEMP 97.6; O2SAT 97
[2017-03-06] MEDS: PANTOPRAZOLE SOD 40 MG DELAYED RELEASE TAB PO SCH (08:30)
[2017-03-06] MEDS: SUCRALFATE 1 GM/10 ML CUP PO SCH ×2 (08:30→11:34)
[2017-03-06] MEDS: ALLOPURINOL 100 MG TAB PO SCH (08:30)
[2017-03-06] MEDS: DEXAMETHASONE SOD PHOS 0.1% OPHT SOLN 5 ML BTL EACH EYE SCH ×2 (08:30→11:34)
--- NOTE | 2017-03-06 10:18 | PD.ONC.PN ---
Subjective Subjective Remarks Afebrile overnight. Patient resting in bed in nad. No complaints. NO abdominal pain at present. Eager to go home. s/o at bedside. Objective Data Date Time Temp Pulse Resp B/P (MAP) Pulse Ox O2 Delivery O2 Flow Rate FiO2 03/06/17 08:27 97.6 65 16 139/70 (93) 97 03/06/17 04:00 97.6 56 15 106/45 (65) 99 03/06/17 00:00 97.9 78 18 125/57 (79) 98 03/05/17 20:00 97.7 66 18 119/50 (73) 99 03/05/17 16:30 97.6 74 17 127/52 (77) 99 03/05/17 12:29 97.8 66 16 118/56 (76) 98 03/06/17 03/06/17 03/06/17 07:00 15:00 23:00 Intake Total 480 ml Output Total 200 ml Balance 280 ml Result Diagram: 03/06/17 0400 03/06/17 0400 Laboratory Results Laboratory Tests Test 03/06/17 04:00 White Blood Count 6.9 TH/MM3 Red Blood Count 3.68 MIL/MM3 Hemoglobin 9.8 GM/DL Hematocrit 30.5 % Mean Corpuscular Volume 82.8 FL Mean Corpuscular Hemoglobin 26.5 PG Mean Corpuscular Hemoglobin Concent 32.0 % Red Cell Distribution Width 15.2 % Platelet Count 233 TH/MM3 Mean Platelet Volume 7.4 FL Neutrophils (%) (Auto) 97.0 % Lymphocytes (%) (Auto) 2.8 % Monocytes (%) (Auto) 0.1 % Eosinophils (%) (Auto) 0.0 % Basophils (%) (Auto) 0.1 % Neutrophils # (Auto) 6.7 TH/MM3 Lymphocytes # (Auto) 0.2 TH/MM3 Monocytes # (Auto) 0.0 TH/MM3 Eosinophils # (Auto) 0.0 TH/MM3 Basophils # (Auto) 0.0 TH/MM3 CBC Comment DIFF FINAL Differential Comment Blood Urea Nitrogen 16 MG/DL Creatinine 0.64 MG/DL Random Glucose 141 MG/DL Total Protein 6.4 GM/DL Albumin 3.0 GM/DL Calcium Level 8.4 MG/DL Phosphorus Level 3.1 MG/DL Magnesium Level 2.3 MG/DL Uric Acid 2.5 MG/DL Alkaline Phosphatase 53 U/L Aspartate Amino Transf (AST/SGOT) 47 U/L Alanine Aminotransferase (ALT/SGPT) 89 U/L Total Bilirubin 0.4 MG/DL Sodium Level 140 MEQ/L Potassium Level 3.7 MEQ/L Chloride Level 104 MEQ/L Carbon Dioxide Level 28.6 MEQ/L Anion Gap 7 MEQ/L Estimat Glomerular Filtration Rate 152 ML/MIN Administered Medications Medications (Trade) Dose Ordered Sig/Emma Route PRN Reason Start Time Stop Time Status Last Admin Dose Admin Oxycodone HCl (Roxicodone) 10 mg Q6H PRN PO pain 03/01/17 12:00 03/06/17 08:40 Dexamethasone Sodium Phosphate (Decadron Opth 0.1% Soln) 2 drop QID EACH EYE 03/01/17 13:00 03/08/17 09:01 03/06/17 08:30 Pantoprazole Sodium (Protonix) 40 mg DAILY PO 03/01/17 14:00 03/06/17 08:30 Sucralfate (Carafate Liq) 1 gm ACHS PO 03/01/17 17:00 03/06/17 08:30 Sodium Chloride 1,000 ml @ 50 mls/hr Q20H IV 03/01/17 14:00 03/05/17 00:04 Trimethoprim/ Sulfamethoxazole (Bactrim 400-80 Mg) 1 tab MoWeFr PO 03/03/17 14:00 03/05/17 14:29 Ciprofloxacin (Cipro) 250 mg TuThSa PO 03/02/17 14:00 03/04/17 14:44 Enoxaparin Sodium (Lovenox Inj) 40 mg Q24H SQ 03/02/17 13:00 03/05/17 14:30 Ondansetron HCl (Zofran Inj) 4 mg Q6HR PRN IV PUSH nausea 03/02/17 11:30 03/06/17 00:07 Hydromorphone HCl (Dilaudid Pf Inj) 1 mg Q8HR PRN IV PUSH severe breakthrough pain 03/02/17 15:45 03/06/17 09:25 Allopurinol (Zyloprim) 200 mg BID PO 03/03/17 09:15 03/06/17 08:30 Objective Remarks GENERAL: Young man, upright in room in nad. SKIN: Warm and dry. HEAD: Normocephalic. EYES: No injection or drainage. NECK: Supple, trachea midline. CARDIOVASCULAR: Regular rate and rhythm RESPIRATORY: Breath sounds equal bilaterally. No accessory muscle use. GASTROINTESTINAL: Abdomen soft, non-tender, nondistended. EXTREMITIES: No cyanosis NEUROLOGICAL: awake and alert, normal speech. moving all extremities. Assessment/Plan Problem List: (1) AML (acute myelogenous leukemia) ICD Codes: C92.00 - Acute myeloblastic leukemia, not having achieved remission Plan: 03/01: admitted for consolidation chemotherapy with High dose LUISANA-C. D1A given at 1600 03/02: D1B given at 0400. 03/03: D2A given at 1600 03/04: D2B given at 0400 03/05: D3A given at 1600 03/06: D3B given at 0400. discharge --diagnosed in January 2017. FLT-3 negative, +inversion 16, carries a favorable risk. --s/p induction chemotherapy with daunorubicin and cytarabine, 7+3 regimen. --> achieved complete remission. --Monitor for tumor lysis syndrome. Check daily uric acid level. Check daily phosphorus level. --Continue Bactrim double-strength Wednesday, Wednesday and Wednesday, Cipro 250 mg Wednesday, and Wednesday. --Continue acyclovir 200 mg p.o. b.i.d. (2) Abdominal pain ICD Codes: R10.9 - Unspecified abdominal pain Plan: --Biopsy shows only chronic gastritis --full workup at last admission did not elicit a source of the patient's severe intermittent abdominal pain. --Oxycodone PRN --on Carafate + Protonix. --MRCP-->shows prominent CBD, unremarkable gallbladder (3) DVT prophylaxis Plan: --Lovenox 40mg SQ daily Assessment 27y/o male with acute myeloid leukemia status post induction chemotherapy, who is now being admitted for consolidation chemotherapy. Plan 1. discharge home 2. follow up in clinic on Wednesday at 9AM for labs Attending Statement The exam, history, and the medical decision-making described in the above note were completed with the assistance of the mid-level provider. I reviewed and agree with the findings presented. I attest that I had a [id number] encounter with the patient on the same day, and personally performed and documented my assessment and findings in the medical record. Tolerated HIDAC. CBC stable. No complaint. D/c home and f/u with . Fartun Pagan Mar 06, 2017 10:18 Tyree Burch MD Mar 06, 2017 14:27
--- NOTE | 2017-03-06 10:19 | HHI.DS ---
Fartun Pagan 03/06/17 1019: Discharge Summary Admission Date Mar 01, 2017 at 09:18 Admitting Diagnosis (1) AML (acute myelogenous leukemia) Diagnosis: Principal ICD Codes: C92.00 - Acute myeloblastic leukemia, not having achieved remission (2) Abdominal pain Diagnosis: Principal ICD Codes: R10.9 - Unspecified abdominal pain (3) Generalized pain Diagnosis: Secondary ICD Codes: R52 - Pain, unspecified Brief History Mr. Duarte is a 26-year-old male diagnosed with acute myeloid leukemia in January 2017. A bone marrow biopsy confirmed acute myeloid leukemia. He was given induction chemotherapy consisting of daunorubicin and cytarabine, 7+3 regimen. Subsequently he achieved complete remission. He has a chronic issue with abdominal pain of unclear etiology. CBC/BMP: 03/06/17 0400 03/06/17 0400 Significant Findings Laboratory Tests Test 03/04/17 04:20 03/05/17 04:08 03/05/17 09:30 03/06/17 04:00 White Blood Count 13.2 TH/MM3 (4.0-11.0) Red Blood Count 3.72 MIL/MM3 (4.50-5.90) 3.74 MIL/MM3 (4.50-5.90) 3.68 MIL/MM3 (4.50-5.90) Hemoglobin 10.1 GM/DL (13.0-17.0) 9.9 GM/DL (13.0-17.0) 9.8 GM/DL (13.0-17.0) Hematocrit 31.0 % (39.0-51.0) 30.9 % (39.0-51.0) 30.5 % (39.0-51.0) Neutrophils (%) (Auto) 97.2 % (16.0-70.0) 97.0 % (16.0-70.0) 97.0 % (16.0-70.0) Lymphocytes (%) (Auto) 1.2 % (9.0-44.0) 2.4 % (9.0-44.0) 2.8 % (9.0-44.0) Neutrophils # (Auto) 12.8 TH/MM3 (1.8-7.7) 8.0 TH/MM3 (1.8-7.7) Lymphocytes # (Auto) 0.2 TH/MM3 (1.0-4.8) 0.2 TH/MM3 (1.0-4.8) 0.2 TH/MM3 (1.0-4.8) Random Glucose 175 MG/DL (74-106) 141 MG/DL (74-106) Albumin 3.0 GM/DL (3.4-5.0) 3.0 GM/DL (3.4-5.0) 3.0 GM/DL (3.4-5.0) Total Iron Binding Capacity 183 MCG/DL (250-450) Percent Iron Saturation 94.9 % (20-50) Ferritin 1219 NG/ML (26-388) Folate 2.9 NG/ML (3.1-17.5) Mean Corpuscular Hemoglobin 26.3 PG (27.0-34.0) 26.5 PG (27.0-34.0) Mean Corpuscular Hemoglobin Concent 31.9 % (32.0-36.0) Calcium Level 8.4 MG/DL (8.5-10.1) Uric Acid 2.5 MG/DL (2.6-7.2) Aspartate Amino Transf (AST/SGOT) 47 U/L (15-37) Alanine Aminotransferase (ALT/SGPT) 89 U/L (12-78) Imaging Last Impressions Cholangiopancreatography MRI 03/05/17 0600 Signed Impressions: Service Date/Time: Sunday, March 05, 2017 10:28 - CONCLUSION: 1. The common bile duct remains prominent measuring up to 7-8 mm with no filling defect or mass. The duct tapers down normally. 2. Unremarkable gallbladder. 3. The pancreas is unremarkable in appearance with no pancreatic ductal dilatation. Jose Nicholson MD Gall Bladder Ultrasound 03/04/17 0000 Signed Impressions: Service Date/Time: February 11:59 - CONCLUSION: 1. No evidence of any definite gallstones. There is thickening of the gallbladder wall 5 mm. This can be seen with chronic gallbladder disease. 2. There is dilatation of the common bile duct at 8 mm. Recommend correlation with liver laboratory values. MRCP could be performed if clinically indicated. 3. Enlarged diffuse fatty infiltration of the liver. 4. Pancreas not well-visualized. Neymar Jade MD Abdomen/Pelvis CT 03/03/17 0000 Signed Impressions: Service Date/Time: February 00:38 - CONCLUSION: 1. No acute inflammatory process. 2. Gallbladder is contracted limiting evaluation. 3. Normal appendix. 4. Constipation. Carlos Toth MD PE at Discharge please see physical exam from progress note on 03/06/17 Hospital Course Mr. Duarte was admitted on 03/01/17 for his first cycle of consolidation chemotherapy with LUISANA-C. The patient, upon admission noted that he had been continuing to have chronic abdominal pain, but had been unable to follow up with gastroenterology outpatient due to insurance issues. He reported that he had been taking Oxycodone 10-30mg by mouth every 6 hours for the pain. On admission the patient's labs were reviewed, home medications resumed. The patient was started on LUISANA-C and given q 12 hours dosing on days 1, 3 and 5. The patient tolerated chemotherapy. Gastroenterology was consulted for further workup of the patient's chronic abdominal pain. An EGD was performed on 03/04 which showed only gastris. biopsy obtained showed the same. Further workup for the abdominal pain included a CT abdomen and pelvis, U/S of the gallbladder and a HIDA scan. Upon discharge, the patient reported that the pain was dissipating. He was given instructions for follow up the following week in the oncology clinic and advised to follow up outpatient with GI as well. Pt Condition on Discharge: Good Discharge Disposition: Discharge Home Discharge Instructions DIET: Follow Instructions for: As Tolerated, No Restrictions Activities you can perform: Regular-No Restrictions Tyree Burch MD 03/06/17 1426: Discharge Summary CBC/BMP: 03/06/17 0400 03/06/17 0400 Fartun Pagan Mar 06, 2017 10:19 Tyree Burch MD Mar 06, 2017 14:26
--- NOTE | 2017-03-06 10:19 | HHI.DCPOC ---
Discharge Care Plan Diagnosis: (1) AML (acute myelogenous leukemia) (2) Generalized pain (3) Abdominal pain Goals to Promote Your Health * To prevent worsening of your condition and complications * To maintain your health at the optimal level Directions to Meet Your Goals Take your medications as prescribed Follow your dietary instruction Follow activity as directed Keep your appointments as scheduled Take your immunizations and boosters as scheduled If your symptoms worsen call your PCP, if no PCP go to Urgent Care Center or Emergency Room Smoking is Dangerous to Your Health. Avoid second hand smoke Call the 24-hour hour crisis hotline for domestic abuse at Fartun Pagan Mar 06, 2017 10:19
--- NOTE | 2017-03-06 10:42 | HHI.GIFU ---
Subjective Remarks Patient is sitting up in chair, going home today, states the pain is dissipating. He declined HIDA scan "he is tired of being in the hospital and ready to go home". He feels much better, no nausea or vomiting Objective Vitals I&O Vital Signs Date Time Temp Pulse Resp B/P (MAP) Pulse Ox O2 Delivery O2 Flow Rate FiO2 03/06/17 08:27 97.6 65 16 139/70 (93) 97 03/06/17 04:00 97.6 56 15 106/45 (65) 99 03/06/17 00:00 97.9 78 18 125/57 (79) 98 03/05/17 20:00 97.7 66 18 119/50 (73) 99 03/05/17 16:30 97.6 74 17 127/52 (77) 99 03/05/17 12:29 97.8 66 16 118/56 (76) 98 I/O 03/05/17 03/05/17 03/05/17 03/06/17 03/06/17 03/06/17 07:00 15:00 23:00 07:00 15:00 23:00 Intake Total 600 ml 480 ml Output Total 1900 ml 200 ml Balance -1300 ml 280 ml Intake Oral 600 ml 480 ml Output Urine Total 1900 ml 200 ml # Bowel Movements 1 Laboratory Laboratory Tests Test 03/06/17 04:00 White Blood Count 6.9 Red Blood Count 3.68 Hemoglobin 9.8 Hematocrit 30.5 Mean Corpuscular Volume 82.8 Mean Corpuscular Hemoglobin 26.5 Mean Corpuscular Hemoglobin Concent 32.0 Red Cell Distribution Width 15.2 Platelet Count 233 Mean Platelet Volume 7.4 Neutrophils (%) (Auto) 97.0 Lymphocytes (%) (Auto) 2.8 Monocytes (%) (Auto) 0.1 Eosinophils (%) (Auto) 0.0 Basophils (%) (Auto) 0.1 Neutrophils # (Auto) 6.7 Lymphocytes # (Auto) 0.2 Monocytes # (Auto) 0.0 Eosinophils # (Auto) 0.0 Basophils # (Auto) 0.0 CBC Comment DIFF FINAL Differential Comment Blood Urea Nitrogen 16 Creatinine 0.64 Random Glucose 141 Total Protein 6.4 Albumin 3.0 Calcium Level 8.4 Phosphorus Level 3.1 Magnesium Level 2.3 Uric Acid 2.5 Alkaline Phosphatase 53 Aspartate Amino Transf (AST/SGOT) 47 Alanine Aminotransferase (ALT/SGPT) 89 Total Bilirubin 0.4 Sodium Level 140 Potassium Level 3.7 Chloride Level 104 Carbon Dioxide Level 28.6 Anion Gap 7 Estimat Glomerular Filtration Rate 152 Imaging Last Impressions Cholangiopancreatography MRI 03/05/17 0600 Signed Impressions: Service Date/Time: Sunday, March 05, 2017 10:28 - CONCLUSION: 1. The common bile duct remains prominent measuring up to 7-8 mm with no filling defect or mass. The duct tapers down normally. 2. Unremarkable gallbladder. 3. The pancreas is unremarkable in appearance with no pancreatic ductal dilatation. Jose Nicholson MD Gall Bladder Ultrasound 03/04/17 0000 Signed Impressions: Service Date/Time: February 11:59 - CONCLUSION: 1. No evidence of any definite gallstones. There is thickening of the gallbladder wall 5 mm. This can be seen with chronic gallbladder disease. 2. There is dilatation of the common bile duct at 8 mm. Recommend correlation with liver laboratory values. MRCP could be performed if clinically indicated. 3. Enlarged diffuse fatty infiltration of the liver. 4. Pancreas not well-visualized. Neymar Jade MD Abdomen/Pelvis CT 03/03/17 0000 Signed Impressions: Service Date/Time: February 00:38 - CONCLUSION: 1. No acute inflammatory process. 2. Gallbladder is contracted limiting evaluation. 3. Normal appendix. 4. Constipation. Carlos Toth MD Physical Exam HEENT:Normocephalic; atraumatic; no jaundice. CHEST: CTA CARDIAC: RRR. ABDOMEN: Soft, obese, nondistended, mild epigastric discomfort; no hepatosplenomegaly; bowel sounds are present in all four quadrants. EXTREMITIES: No clubbing, cyanosis, or edema. SKIN: Normal; no rash; no jaundice. ELECTRODE CLEANER: No focal deficits; alert and oriented times three. Assessment and Plan Plan ASSESSMENT: - Abdominal pain with hx of severe brandon esophagitis, gastritis, esophageal ulcer. Persistent abdominal pain despite PPI and carafate. S/P EGD (03/03/17)---> No ulcer seen. Mild gastritis. Biopsy showed gastritis, negative for H Pylori. CT Scan abdomen and pelvis (03/04/17)---> No acute inflammatory process, gallbladder is contracted limiting evaluation, normal appendix. Constipation. US (03/04/17)----> No evidence of any definite gallstones. There is thickening of the gallbladder wall 5 mm. This can be seen with chronic gallbladder disease. There is dilatation of the common bile duct at 8 mm. Recommend correlation with liver laboratory values. MRCP could be performed if clinically indicated. Enlarged diffuse fatty infiltration of the liver. Pancreas not well visualized. CT (03/05/17) ---> CBD remains prominent measuring up to 7-8 mm, no filling defect or mass, unremarkable gallbladder, pancreas id unremarkable LFT slightly elevated today but likely secondary to chemo, but does have persistent leukocytosis, no indication of gall bladder involvement, He is declining HIDA and wants to go home, the pain is better today - AML. Dx 01/24. S/P induction chemotherapy. Per oncology. PLAN: - SAMANTHA - PPI - Carafate - ok to DC home - Pt seen and examined by Dr. Rosas and myself and this note is written on his behalf Yani Chavez Mar 06, 2017 10:42
[2017-03-06] MEDS: ENOXAPARIN SODIUM 40 MG/0.4 ML SYRINGE SQ SCH (11:35)
[2017-03-06 11:39] VITALS: BP 127/59; PULSE 59; RESP 16; TEMP 97.4; O2SAT 98
[2017-03-06] MEDS: CIPROFLOXACIN 250 MG TAB PO SCH (13:27)
== END 2017-03-06 13:40 | disposition home or self-care (01) | DRG 839 ==
LOC: HSDI 09:18 → HCIS 09:20
PROVIDERS: ADMIT Internal Medicine; ATTEND Internal Medicine
PROC: XW033B3 Introduction of Cytarabine and Daunorubicin Liposome Antineoplastic into Peripheral Vein, Percutaneous Approach, New Technology Group 3 (ICD-10-PCS; principal; 2017-03-01)
PROC: 0DB68ZX Excision of Stomach, Via Natural or Artificial Opening Endoscopic, Diagnostic (ICD-10-PCS; 2017-03-03)
DX: Z51.11 Encounter for antineoplastic chemotherapy (principal); C92.01 Acute myeloblastic leukemia, in remission; K76.0 Fatty (change of) liver, not elsewhere classified; K21.9 Gastro-esophageal reflux disease without esophagitis; K29.50 Unspecified chronic gastritis without bleeding; K59.00 Constipation, unspecified; G89.29 Other chronic pain; Z87.19 Personal history of other diseases of the digestive system; T45.1X5A Adverse effect of antineoplastic and immunosuppressive drugs, initial encounter
CPT/HCPCS: 74177; 74181; 76377; 76705; 80053; 82607; 82728; 82746; 83540; 83550; 83690; 83735; 84100; 84550; 85025; 85610; 85730; 88305; 88312; J1100; J1170; J1626; J1642; J1650; J2250; J2405; J3010; J7030; J7050; J9100; Q9963; Q9967

== ENCOUNTER 2017-03-12 10:35 | Inpatient (IN) | payer OTHER ==
[2017-03-12] VITALS (14 sets, daily range): BP systolic 71–133; BP diastolic 35–75; PULSE 88–101; RESP 18–23; TEMP 99.2–103; O2SAT 97–100
[~2017-03-12] VITALS: Ht 188 cm; Wt 151.4 kg
[~2017-03-12 10:35] MED LIST changes: +ALLO100 PO; +CIPR250T52 PO; +CLON.5 PO; +ENDO10TA8 PO; -OXYC-395 PO; +PROM12.54 PO; -SULF1TAB23 PO; +SULF400T18 PO
[2017-03-12] MEDS ORDERED: ACETAMINOPHEN 325 MG TAB PO PRN ×2 (14:30)
--- NOTE | 2017-03-12 15:19 | RADRPT ---
EXAM DATE/TIME: 03/12/2017 14:54 [facility] COMPARISON: CHEST SINGLE AP, February 01, 2017, 19:35. INDICATIONS : Fever and shortness of breath. MEDICAL HISTORY : Ulcers. Acute myeloblastic leukemia. Chemotherapy. SURGICAL HISTORY : None. ENCOUNTER: Initial ACUITY: 1 day PAIN SCORE: 0/10 LOCATION: Bilateral chest FINDINGS: Right internal jugular [id number] has its tip in the superior vena cava. There is no pneumothorax . The heart is normal. The pulmonary vascular pattern is normal. The lungs are clear. CONCLUSION: No acute cardiopulmonary disease. Garcia Tello MD on March 12, 2017 at 15:10 Board Certified Radiologist. This report was verified electronically.
[2017-03-12 15:24] LABS: HEMATOCRIT 25.8 % (39.0-51.0); MEAN CELL VOLUME 77.7 FL (80.0-100.0); MEAN CORPUSCULAR HEMOGLOBIN 25.8 PG (27.0-34.0); MEAN CORPUSCULAR HGB CONC 33.2 % (32.0-36.0); RED BLOOD COUNT 3.32 MIL/MM3 (4.50-5.90); RED CELL DISTRIBUTION WIDTH 15.2 % (11.6-17.2); WHITE BLOOD COUNT 0.4 TH/MM3 (4.0-11.0)
[2017-03-12 15:26] LABS: HEMO FLAGS AUTO DIFF
[2017-03-12] MEDS ORDERED: SODIUM CHLOR 0.9% 1000 ML INJ 1,000 ML IV ONE (15:30)
[2017-03-12 15:35] LABS: PLATELET COUNT 10 TH/MM3 (150-450)
[2017-03-12] MEDS: SODIUM CHLOR 0.9% 1000 ML INJ 1,000 ML IV SCH ×2 (15:37→22:50)
[2017-03-12 15:40] LABS: APTT (PATIENT) 33.6 SEC (24.3-30.1); PROTHROMBIN TIME - PATIENT 11.1 SEC (9.8-11.6)
[2017-03-12 15:48] LABS: ALT (GPT) 81 U/L (12-78); ANION GAP 10 MEQ/L (5-15); AST (GOT) 13 U/L (15-37); BLOOD UREA NITROGEN 9 MG/DL (7-18); CHLORIDE 101 MEQ/L (98-107); GLOMERULAR FILTRATION RATE 145 ML/MIN (>89); POTASSIUM 3.6 MEQ/L (3.5-5.1); SODIUM (NA) 137 MEQ/L (136-145)
[2017-03-12 15:50] LABS: ALKALINE PHOSPHATASE 76 U/L (45-117); TOTAL BILIRUBIN ADULT 1.5 MG/DL (0.2-1.0)
[2017-03-12 15:55] LABS: SCAN/DIFF FINAL DIFF MANUAL; WBC DIFF SAMPLE 100
[2017-03-12] MEDS: diphenhydrAMINE HCL 25 MG CAP PO PRN (16:00)
[2017-03-12] MEDS ORDERED: Vancomycin Consult Pharmacy 1 EA OTHER SCH (16:00)
[2017-03-12] MEDS ORDERED: SODIUM CHLOR 0.9% 250 ML INJ 250 ML IV ONE (16:00)
[2017-03-12 17:07] LABS: BLOOD, URINE NEG (NEG); COMMENT (UR) CULT NOT INDICATED; CULTURE IF INDICATED CULT NOT INDICATED; GLUCOSE,URINE NEG (NEG); KETONE, URINE NEG (NEG); MUCUS URINE FEW /lpf (OCC); NITRITE,URINE NEG (NEG); PH, URINE 7.5 (5.0-8.5); URINE COLOR YELLOW (YELLW/STRAW)
[2017-03-12 18:08] LABS: BLOOD GAS BASE EXCESS 1.8 mmol/L (-2-2); BLOOD GAS CARBOXYHEMOGLOBIN 1.6 % (0-4); BLOOD GAS HCO3 25 mmol/L (22-26); BLOOD GAS METHEMOGLOBIN 1.2 % (0-2); BLOOD GAS O2 HGB SATURATION 95 % (90-100); BLOOD GAS OXYGEN CONTENT 10.8 Vol % (12.0-20.0); BLOOD GAS PCO2 34 mmHg (38-42); BLOOD GAS PO2 102 mmHg (61-120); BLOOD GAS TOTAL HGB 7.9 G/DL (12.0-16.0); CRITICAL VALUE NO; DRAW SITE RT RADIAL; FIO2 21 %; NUMBER OF ARTERIAL PUNCTURES 1; OXYGEN DEVICE ROOM AIR; STAT NO; TEMP CORR TO 98.6; ULNAR PULSE PRESENT
[2017-03-12] MEDS ORDERED: HYDROmorphone HCL PF 1 MG/ML VIAL IV ONE (18:30)
[2017-03-12] MEDS: VANCOMYCIN INJ 2,000 MG in SODIUM CHLORID 0.9% 500 ML INJ 500 ML IV SCH (19:23)
--- NOTE | 2017-03-12 20:05 | PD.CONS ---
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 He re-presents for consolidation chemotherapy. He is 2 days post chemotherapy and presented with fevers chills and fatigue. He endorses very vague abdominal pain, which is not associated with food, which he cannot 0.1 finger tube. He denies nausea vomiting constipation or diarrhea. Does endorse a little bit of bright red blood per rectum. Denies cough fever congestion. Admitted to the hospital and had worsening hypotension today for which I was called for. He received 2 L crystalloid bolus and his hypotension improved. He was initially started on 84 cc an hour of crystalloid and I asked the oncology team to increase at 125 cc an hour. The patient subjectively states that he feels much better after the increase fluids. Critical-care medicine was consulted to evaluate and manage his worsening hemodynamic's. Laboratory evidence is significant for neutropenia , anemia, thrombocytopenia. Review of Systems Constitutional: COMPLAINS OF: Fatigue, Fever, Chills Respiratory: DENIES: Apneas, Cough, Hemoptysis, Sputum production, Shortness of breath Cardiovascular: DENIES: Chest pain, Palpitations, Dyspnea on Exertion Gastrointestinal: COMPLAINS OF: Abdominal pain, Bloody stools, DENIES: Black stools, Constipation, Diarrhea, Nausea, Vomiting Past Family Social History Allergies: Coded Allergies: No Known Allergies (Verified Allergy, Unknown, 03/12/17) Past Medical History Acute myeloid leukemia Past Surgical History Port placement Bone marrow biopsy Upper endoscopy Reported Medications Klonopin (Clonazepam) 0.5 Mg Tab 0.5 Mg PO HS Promethazine (Promethazine HCl) 12.5 Mg Tab 12.5 Mg PO Q6H PRN Endocet (Oxycodone-Acetaminophen) 10-325 mg Tab 1 Tab PO Q6HR Zyloprim (Allopurinol) 100 Mg Tab 200 Mg PO BID 10 Days Sulfamethoxazole-Tmp Ss Tablet (Sulfamethoxazole/Trimethoprim) 400 Mg-80 Mg Tablet 1 Tab PO MOWEFR 30 Days Cipro (Ciprofloxacin HCl) 250 Mg Tab 250 Mg PO TUTHSA 30 Days Acyclovir 200 Mg Cap 400 Mg PO Q12HR 30 Days Protonix (Pantoprazole Sodium) 40 Mg Tab 40 Mg PO DAILY 30 Days Sucralfate Liq (Sucralfate) 1 Gram/10 Ml Erin 1 Gm PO ACHS 30 Days Ventolin Hfa 18 GM Inh (Albuterol Sulfate) 90 Mcg/Act Aer 2 Puff INH Q4H PRN Active Ordered Medications See MAR Family History Reviewing the chart and found to be noncontributory to his acute illness Social History Denies tobacco, alcohol, or other drugs. Physical Exam Vital Signs Vital Signs Date Time Temp Pulse Resp B/P (MAP) Pulse Ox O2 Delivery O2 Flow Rate FiO2 03/12/17 18:00 100.4 94 18 114/47 (69) 100 03/12/17 17:31 103.0 99 18 130/44 98 03/12/17 17:13 111/48 (69) 03/12/17 16:41 96 103/53 (70) 03/12/17 16:00 102.5 18 125/55 (78) 100 03/12/17 15:36 97 18 111/75 (87) 97 03/12/17 15:08 71/37 (48) 03/12/17 15:04 74/35 (48) 03/12/17 14:58 101 18 72/52 (59) 100 03/12/17 14:35 100.0 93 18 87/50 (62) 100 Physical Exam GENERAL: Young male, lying in bed, mild distress HEENT: Normocephalic. Atraumatic. Pupils equal, round, reactive, conjugate. Mucous membranes are dry NECK: Trachea is midline. There is no JVD. CHEST: Unlabored. Equal chest rise. Nasal cannula oxygen CARDIOVASCULAR: Tachycardic rate, regular rhythm. Sinus. Blood pressure is 114 systolic on my evaluation ABDOMEN: Soft, mild generalized tenderness to palpation, nondistended. No guarding. No rebound. No hepatosplenomegaly. MUSCULOSKELETAL: Pulses 2+. No peripheral edema. NEUROLOGICAL: RASS 0. GCS 15. Follows commands. No gross focal deficits Laboratory Laboratory Tests Test 03/12/17 11:45 03/12/17 16:40 03/12/17 17:50 White Blood Count 0.4 Red Blood Count 3.32 Hemoglobin 8.6 Hematocrit 25.8 Mean Corpuscular Volume 77.7 Mean Corpuscular Hemoglobin 25.8 Mean Corpuscular Hemoglobin Concent 33.2 Red Cell Distribution Width 15.2 Platelet Count 10 Mean Platelet Volume 9.0 CBC Comment AUTO DIFF Differential Total Cells Counted 100 Lymphocytes % 98 Monocytes % 2 Neutrophils # (Manual) 0.0 Differential Comment FINAL DIFF MANUAL Prothrombin Time 11.1 Prothromb Time International Ratio 1.0 Activated Partial Thromboplast Time 33.6 Fibrinogen 589 Blood Urea Nitrogen 9 Creatinine 0.67 Random Glucose 78 Total Protein 6.9 Albumin 3.1 Calcium Level 8.4 Alkaline Phosphatase 76 Aspartate Amino Transf (AST/SGOT) 13 Alanine Aminotransferase (ALT/SGPT) 81 Total Bilirubin 1.5 Sodium Level 137 Potassium Level 3.6 Chloride Level 101 Carbon Dioxide Level 26.0 Anion Gap 10 Estimat Glomerular Filtration Rate 145 Urine Color YELLOW Urine Turbidity CLEAR Urine pH 7.5 Urine Specific [place] 1.018 Urine Protein TRACE Urine Glucose (UA) NEG Urine Ketones NEG Urine Occult Blood NEG Urine Nitrite NEG Urine Bilirubin NEG Urine Urobilinogen LESS THAN 2.0 Urine Leukocyte Esterase NEG Urine WBC 2 Urine Mucus FEW Microscopic Urinalysis Comment CULT NOT INDICATED Lactic Acid Level 0.8 Blood Gas Puncture Site RT RADIAL Blood Gas Patient Temperature 98.6 Blood Gas HCO3 25 Blood Gas Base Excess 1.8 Blood Gas Oxygen Saturation 95 Arterial Blood pH 7.48 Arterial Blood Partial Pressure CO2 34 Arterial Blood Partial Pressure O2 102 Arterial Blood Oxygen Content 10.8 Arterial Blood Carboxyhemoglobin 1.6 Arterial Blood Methemoglobin 1.2 Blood Gas Hemoglobin 7.9 Oxygen Delivery Device ROOM AIR Blood Gas Inspired Oxygen 21 Result Diagram: 03/12/17 1145 03/12/17 1145 Imaging Last Impressions Chest X-Ray 03/12/17 0000 Signed Impressions: Service Date/Time: Sunday, March 12, 2017 14:54 - CONCLUSION: No acute cardiopulmonary disease. Garcia Tello MD Assessment and Plan Assessment and Plan Assessment: 27-year-old male 2 days post consolidative chemotherapy for acute myeloid leukemia who presents with severe neutropenic sepsis. Agree with increased fluids. He is still fluid responsive at this time. I would recommend adding vancomycin given his recent hospitalization for consolidative chemotherapy as this could be a resistant bacteria, particularly given his progressive hypotension. If he does not respond to fluids and continues to be hypotensive and I would recommend transfer to ICU and vasopressors. Agree with blood cultures. If his abdominal pain does not improve and he does not improve would recommend CT abdomen and pelvis with IV and by mouth contrast to evaluate for neutropenic enterocolitis. Critical care medicine will continue to follow along. active problems: Severe neutropenic sepsis neutropenia anemia secondary to chemotherapy thrombocytopenia secondary to chemotherapy - add vancomycin - continue cefepime - f/u cultures - increase mivf rate to 125 cc/hr - if no improvement or abdominal pain worsens, recommend CT abd/pelvis with IV and PO contrast to evaluate for neutropenic enterocolitis CCM will continue to follow. Luis Simmons MD Mar 12, 2017 20:05
[2017-03-12] MEDS: CEFEPIME INJ 2,000 MG in SODIUM CHLORIDE 0.9% INJ 100 ML IV SCH (20:37)
[2017-03-12] MEDS: HYDROmorphone HCL PF 1 MG/ML VIAL IV PUSH PRN (20:48)
[2017-03-12] MEDS ORDERED: ATROPINE SULFATE 1 MG/10 ML SYRINGE ONE (22:01)
[2017-03-12] MEDS ORDERED: EPINEPHrine HCL (1:10,000) 1 MG/10 ML SYRINGE ONE (22:01)
[2017-03-12] MEDS ORDERED: IOHEXOL 350 MG/ML 10 ML VIAL (for RAD DIAG) IVCONTRAST ONE (22:12)
--- NOTE | 2017-03-12 22:30 | RADRPT ---
EXAM DATE/TIME: 03/12/2017 22:12 [place] COMPARISON: CT ABDOMEN & PELVIS W CONTRAST, March 04, 2017, 0:38. INDICATIONS : Abdomen pain. History of leukemia. IV CONTRAST: 100 cc Omnipaque 350 (iohexol) IV ORAL CONTRAST: No oral contrast ingested. RADIATION DOSE: 37.32 CTDIvol (mGy) ; Patient body habitus MEDICAL HISTORY : Leukemia. Thrombocytosis SURGICAL HISTORY : None. ENCOUNTER: Initial ACUITY: 1 day PAIN SCALE: 5/10 LOCATION: Bilateral abdomen TECHNIQUE: Volumetric scanning of the abdomen and pelvis was performed. Using automated exposure control and ad justment of the mA and/or kV according to patient size, radiation dose was kept as low as reasonably achievable to obtain optimal diagnostic quality images. DICOM format image data is available electro nically for review and comparison. FINDINGS: LOWER LUNGS: The visualized lower lungs are clear. LIVER: Homogeneous density without lesion. There is no dilation of the biliary tree. No calcified gallston es. SPLEEN: Normal size without lesion. PANCREAS: Within normal limits. KIDNEYS: Normal in size and shape. There is no mass, stone or hydronephrosis. ADRENAL GLANDS: Within normal limits. VASCULAR: There is no aortic aneurysm. BOWEL/MESENTERY: The stomach, small bowel, and colon demonstrate no acute abnormality. There is no free intraperitone al air or fluid. ABDOMINAL WALL: Within normal limits. RETROPERITONEUM: There is no lymphadenopathy. BLADDER: No wall thickening or mass. REPRODUCTIVE: Within normal limits. INGUINAL: There is no lymphadenopathy or hernia. MUSCULOSKELETAL: Within normal limits for patient age. CONCLUSION: Normal examination. The appendix is normal. Better distention of the gallbladder without obvious calc ified stone Enrique Ramos MD on March 12, 2017 at 22:28 Board Certified Radiologist. This report was verified electronically.
[2017-03-13] VITALS (21 sets, daily range): BP systolic 97–145; BP diastolic 48–86; PULSE 18–90; RESP 16–20; TEMP 97.6–99; O2SAT 93–99
[2017-03-13] MEDS ORDERED: FLUCONAZOLE 200 MG PREMIX BAG 100 ML IV ONE (01:00)
[2017-03-13] MEDS: diphenhydrAMINE HCL 25 MG CAP PO PRN (02:06)
[2017-03-13] MEDS: HYDROmorphone HCL PF 1 MG/ML VIAL IV PUSH PRN ×4 (03:06→21:00)
[2017-03-13 04:34] LABS: HEMATOCRIT 21.2 % (39.0-51.0); MEAN CELL VOLUME 77.4 FL (80.0-100.0); MEAN CORPUSCULAR HEMOGLOBIN 25.9 PG (27.0-34.0); MEAN CORPUSCULAR HGB CONC 33.5 % (32.0-36.0); RED BLOOD COUNT 2.74 MIL/MM3 (4.50-5.90); RED CELL DISTRIBUTION WIDTH 14.7 % (11.6-17.2); WHITE BLOOD COUNT 0.3 TH/MM3 (4.0-11.0)
[2017-03-13 04:39] LABS: HEMO FLAGS AUTO DIFF
[2017-03-13 04:43] LABS: PLATELET COUNT 12 TH/MM3 (150-450)
[2017-03-13] MEDS: CEFEPIME INJ 2,000 MG in SODIUM CHLORIDE 0.9% INJ 100 ML IV SCH ×3 (04:43→19:53)
[2017-03-13] MEDS: SODIUM CHLOR 0.9% 1000 ML INJ 1,000 ML IV SCH ×3 (06:14→22:56)
[2017-03-13] MEDS: VANCOMYCIN INJ 2,000 MG in SODIUM CHLORID 0.9% 500 ML INJ 500 ML IV SCH ×2 (06:46→22:19)
[2017-03-13] MEDS ORDERED: SODIUM CHLOR 0.9% 250 ML INJ 250 ML IV ONE ×2 (07:45→16:30)
[2017-03-13 09:41] LABS: WBC DIFF SAMPLE 50
[2017-03-13 09:52] LABS: PLATELET ESTIMATE SMEAR RARE (NORMAL); PLATELET MORPHOLOGY NORMAL (NORMAL); SCAN/DIFF FINAL DIFF MANUAL
--- NOTE | 2017-03-13 10:11 | HHI.CCPN ---
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 He re-presents for consolidation chemotherapy. He is 2 days post chemotherapy and presented with fevers chills and fatigue. He endorses very vague abdominal pain, which is not associated with food, which he cannot 0.1 finger tube. He denies nausea vomiting constipation or diarrhea. Does endorse a little bit of bright red blood per rectum. Denies cough fever congestion. Admitted to the hospital and had worsening hypotension today for which I was called for. He received 2 L crystalloid bolus and his hypotension improved. He was initially started on 84 cc an hour of crystalloid and I asked the oncology team to increase at 125 cc an hour. The patient subjectively states that he feels much better after the increase fluids. Critical-care medicine was consulted to evaluate and manage his worsening hemodynamic's. Laboratory evidence is significant for neutropenia , anemia, thrombocytopenia. Subjective: 03/13: clinically stable. still with vague abdominal complaints, but in speaking with the oncology service, he has had these complaints for some time and this is not new. afebrile with normal hemodynamics. Objective Vital Signs Date Time Temp Pulse Resp B/P (MAP) Pulse Ox O2 Delivery O2 Flow Rate FiO2 03/13/17 09:52 98.2 88 20 105/48 98 03/12/17 22:30 Room Air Intake and Output 03/13/17 03/13/17 03/14/17 08:00 16:00 00:00 Intake Total 1619 ml 582 ml Output Total 2000 ml Balance -381 ml 582 ml Result Diagram: 03/13/17 0620 03/12/17 1145 Other Results Laboratory Tests Test 03/12/17 17:50 Blood Gas Puncture Site RT RADIAL Blood Gas Patient Temperature 98.6 Blood Gas HCO3 25 mmol/L (22-26) Blood Gas Base Excess 1.8 mmol/L (-2-2) Blood Gas Oxygen Saturation 95 % (90-100) Arterial Blood pH 7.48 (7.380-7.420) Arterial Blood Partial Pressure CO2 34 mmHg (38-42) Arterial Blood Partial Pressure O2 102 mmHg (61-120) Arterial Blood Oxygen Content 10.8 Vol % (12.0-20.0) Arterial Blood Carboxyhemoglobin 1.6 % (0-4) Arterial Blood Methemoglobin 1.2 % (0-2) Blood Gas Hemoglobin 7.9 G/DL (12.0-16.0) Oxygen Delivery Device ROOM AIR Blood Gas Inspired Oxygen 21 % Imaging Last Impressions Chest X-Ray 03/12/17 0000 Signed Impressions: Service Date/Time: Sunday, March 12, 2017 14:54 - CONCLUSION: No acute cardiopulmonary disease. Garcia Tello MD Objective Remarks GENERAL: Young male, lying in bed, no distress this morning. HEENT: Normocephalic. Atraumatic. Pupils equal, round, reactive, conjugate. Mucous membranes are moist. NECK: Trachea is midline. There is no JVD. CHEST: Unlabored. Equal chest rise. Nasal cannula oxygen CARDIOVASCULAR: Tachycardic rate, regular rhythm. Sinus. ABDOMEN: Soft, mild generalized tenderness to palpation, nondistended. No guarding. No rebound. No hepatosplenomegaly. MUSCULOSKELETAL: Pulses 2+. No peripheral edema. NEUROLOGICAL: RASS 0. GCS 15. Follows commands. No gross focal deficits A/P Assessment and Plan Assessment: 27-year-old male 3 days post consolidative chemotherapy for acute myeloid leukemia who presents with severe neutropenic sepsis. Clinically improving. have spoken with oncology and ID services and all are comfortable with transfer out of ICU. I agree he is clinically improving. f/u cultures and adjust abx accordingly. active problems: Severe neutropenic sepsis - improving. neutropenia anemia secondary to chemotherapy thrombocytopenia secondary to chemotherapy - continue vanc/cefepime. additional recs per ID - f/u cultures - transfer out of ICU - continue mivf. Critical Care Medicine will sign off. Please reconsult as needed. Luis Simmons MD Mar 13, 2017 10:11
--- NOTE | 2017-03-13 11:04 | PD.ONC.PN ---
Subjective Subjective Remarks Afebrile overnight. Patient resting in bed in CVICU. Feeling better today. Still with mild vague abdominal pain. Objective Data Date Time Temp Pulse Resp B/P (MAP) Pulse Ox O2 Delivery O2 Flow Rate FiO2 03/13/17 10:13 97.9 90 20 107/49 96 03/13/17 09:52 98.2 88 20 105/48 98 03/13/17 09:10 98.2 86 20 117/55 99 03/13/17 08:45 97.9 77 18 116/74 99 03/13/17 08:25 98.1 18 20 110/48 97 03/13/17 08:06 98.3 74 18 124/63 99 03/13/17 07:00 98.3 74 18 124/63 (83) 99 03/13/17 06:10 97.6 74 18 136/58 97 03/13/17 05:48 78 117/56 03/13/17 05:34 79 03/13/17 05:30 98.5 82 20 117/56 99 03/13/17 05:10 98.7 82 18 110/60 97 03/13/17 04:47 98.9 82 20 97/57 93 03/13/17 04:00 98.5 87 20 109/57 (74) 93 03/12/17 23:00 88 03/12/17 22:30 99.3 92 20 127/70 (89) 99 03/12/17 22:30 99 Room Air 03/12/17 21:48 89 18 133/56 (81) 100 03/12/17 21:18 18 03/12/17 21:18 18 03/12/17 20:38 99.2 101 23 112/37 (62) 100 03/12/17 18:00 100.4 94 18 114/47 (69) 100 03/12/17 17:31 103.0 99 18 130/44 98 03/12/17 17:13 111/48 (69) 03/12/17 16:41 96 103/53 (70) 03/12/17 16:00 102.5 18 125/55 (78) 100 03/12/17 15:36 97 18 111/75 (87) 97 03/12/17 15:08 71/37 (48) 03/12/17 15:04 74/35 (48) 03/12/17 14:58 101 18 72/52 (59) 100 03/12/17 14:35 100.0 93 18 87/50 (62) 100 03/13/17 03/13/17 03/13/17 07:00 15:00 23:00 Intake Total 1619 ml 582 ml Output Total 2000 ml Balance -381 ml 582 ml Result Diagram: 03/13/17 0620 03/12/17 1145 Laboratory Results Laboratory Tests Test 03/12/17 11:45 03/12/17 16:40 03/12/17 17:50 03/13/17 04:12 White Blood Count 0.4 TH/MM3 0.3 TH/MM3 Red Blood Count 3.32 MIL/MM3 2.74 MIL/MM3 Hemoglobin 8.6 GM/DL 7.1 GM/DL Hematocrit 25.8 % 21.2 % Mean Corpuscular Volume 77.7 FL 77.4 FL Mean Corpuscular Hemoglobin 25.8 PG 25.9 PG Mean Corpuscular Hemoglobin Concent 33.2 % 33.5 % Red Cell Distribution Width 15.2 % 14.7 % Platelet Count 10 TH/MM3 12 TH/MM3 Mean Platelet Volume 9.0 FL 7.5 FL CBC Comment AUTO DIFF AUTO DIFF Differential Total Cells Counted 100 50 Lymphocytes % 98 % 100 % Monocytes % 2 % Neutrophils # (Manual) 0.0 TH/MM3 TH/MM3 Differential Comment FINAL DIFF MANUAL FINAL DIFF MANUAL Prothrombin Time 11.1 SEC Prothromb Time International Ratio 1.0 RATIO Activated Partial Thromboplast Time 33.6 SEC Fibrinogen 589 mg/dL Blood Urea Nitrogen 9 MG/DL Creatinine 0.67 MG/DL Random Glucose 78 MG/DL Total Protein 6.9 GM/DL Albumin 3.1 GM/DL Calcium Level 8.4 MG/DL Alkaline Phosphatase 76 U/L Aspartate Amino Transf (AST/SGOT) 13 U/L Alanine Aminotransferase (ALT/SGPT) 81 U/L Total Bilirubin 1.5 MG/DL Sodium Level 137 MEQ/L Potassium Level 3.6 MEQ/L Chloride Level 101 MEQ/L Carbon Dioxide Level 26.0 MEQ/L Anion Gap 10 MEQ/L Estimat Glomerular Filtration Rate 145 ML/MIN Urine Color YELLOW Urine Turbidity CLEAR Urine pH 7.5 Urine Specific [place] 1.018 Urine Protein TRACE mg/dL Urine Glucose (UA) NEG mg/dL Urine Ketones NEG mg/dL Urine Occult Blood NEG Urine Nitrite NEG Urine Bilirubin NEG Urine Urobilinogen LESS THAN 2.0 MG/DL Urine Leukocyte Esterase NEG Urine WBC 2 /hpf Urine Mucus FEW /lpf Microscopic Urinalysis Comment CULT NOT INDICATED Lactic Acid Level 0.8 mmol/L Blood Gas Puncture Site RT RADIAL Blood Gas Patient Temperature 98.6 Blood Gas HCO3 25 mmol/L Blood Gas Base Excess 1.8 mmol/L Blood Gas Oxygen Saturation 95 % Arterial Blood pH 7.48 Arterial Blood Partial Pressure CO2 34 mmHg Arterial Blood Partial Pressure O2 102 mmHg Arterial Blood Oxygen Content 10.8 Vol % Arterial Blood Carboxyhemoglobin 1.6 % Arterial Blood Methemoglobin 1.2 % Blood Gas Hemoglobin 7.9 G/DL Oxygen Delivery Device ROOM AIR Blood Gas Inspired Oxygen 21 % Corrected White Blood Count 0.0 TH/MM3 Platelet Estimate RARE Platelet Morphology Comment NORMAL Test 03/13/17 06:20 Platelet Count 19 TH/MM3 Haptoglobin 240 MG/DL Administered Medications Medications (Trade) Dose Ordered Sig/Emma Route PRN Reason Start Time Stop Time Status Last Admin Dose Admin Cefepime HCl 2000 mg/Sodium Chloride 100 ml @ 200 mls/hr Q8H IV 03/12/17 20:00 03/13/17 04:43 Sodium Chloride 1,000 ml @ 125 mls/hr Q8H IV 03/12/17 14:30 03/13/17 06:14 Acetaminophen (Tylenol) 650 mg Q4H PRN PO fever>100.4 03/12/17 14:30 03/12/17 15:06 Oxycodone HCl (Roxicodone) 5 mg Q4H PRN PO pain 1-10 03/12/17 14:30 03/13/17 08:02 Hydromorphone HCl (Dilaudid Pf Inj) 1 mg Q4H PRN IV PUSH severe breakthrough pain 03/12/17 14:30 03/13/17 09:38 Acetaminophen (Tylenol) 650 mg Q4H PRN PO SEE LABEL COMMENTS 03/12/17 14:30 03/13/17 02:07 Vancomycin HCl 2000 mg/Sodium Chloride 520 ml @ 250 mls/hr Q12H IV 03/12/17 18:30 03/13/17 06:46 Objective Remarks GENERAL: Young man, supine in bed in nad. +pallor. SKIN: Warm and dry. no rash. HEAD: Normocephalic. EYES: No injection or drainage. NECK: Supple, trachea midline. CARDIOVASCULAR: Regular rate and rhythm RESPIRATORY: Breath sounds equal bilaterally. No accessory muscle use. GASTROINTESTINAL: Abdomen soft, non-tender, nondistended. EXTREMITIES: No cyanosis MUSCULOSKELETAL: Adequate muscle tone. NEUROLOGICAL: No obvious focal deficit. Awake, alert, and oriented x3. Assessment/Plan Problem List: (1) Neutropenic sepsis ICD Codes: A41.9 - Sepsis, unspecified organism; D70.9 - Neutropenia, unspecified Plan: --on Cefepime, Vancomycin --CT ab/pelvis, 03/12 shows no source --CXR: WNL --u/a: WNL --BC, 03/12: pending (2) Abdominal pain ICD Codes: R10.9 - Unspecified abdominal pain Plan: --CT ab/pelvis does not elicit source of patient's pain --has had extensive w/u over past several admissions including multiple CT scans , EGD/colonoscopy, MRI, MRCP, HIDA scan --Oxycodone PRN (3) Pancytopenia ICD Codes: D61.818 - Other pancytopenia Plan: --d/t HiDAC --give irradiated CMV negative blood products (4) AML (acute myelogenous leukemia) ICD Codes: C92.00 - Acute myeloblastic leukemia, not having achieved remission Plan: --s/p consolidation chemotherapy with HiDAC 03/02 to 03/07 --diagnosed in January 2017. FLT-3 negative, +inversion 16, carries a favorable risk. --s/p induction chemotherapy with daunorubicin and cytarabine, 7+3 regimen. --> achieved complete remission. Assessment 27y/o male with AML in remission, completed cycle 1 consolidation chemotherapy 03/06, now admitted for neutropenic sepsis. Plan 1. give 1 unit irradiated pRBC 2. continue Cefepime, Vancomycin, Diflucan 3. await blood cultures 4. appreciate fastener technologist assistance. Attending Statement The exam, history, and the medical decision-making described in the above note were completed with the assistance of the mid-level provider. I reviewed and agree with the findings presented. I attest that I had a [id number] encounter with the patient on the same day, and personally performed and documented my assessment and findings in the medical record. 27 yoM with AML with inversion 16 s/p induction chemotherapy with complete remission and is s/p consolidation. Admitted with neutropenic fever and sepsis with hypotension, fever, tachycardia. He is on broad spectrum antibiotic therapy and infectious disease team is following closely. Cultures pending. He reports that he is still have blood bowel movement with the most recent BM this morning. Will transfuse leukoreduced, irradiated blood products for hemoglobin less than 7 and platelet count of less than 20K given bleeding. Today he will receive one unit of PRBC and one additional unit of platelets. Uncertain of cause of abdominal pain. Extensive GI work up in the past. Will continue to follow clinical situation closely. Fartun Pagan Mar 13, 2017 11:04 Kyara Pedersen MD Mar 13, 2017 16:31
--- NOTE | 2017-03-13 11:54 | MH ---
cc: NOHELIA CHARLES DATE OF ADMISSION 03/12/2017 DATE OF 1990 The patient was seen on March 13, 2017. The patient is being admitted to the hospital. REASON FOR ADMISSION Patient with a history of acute myeloid leukemia who is being admitted with febrile neutropenia, acute thrombocytopenia and bright red blood per rectum. HISTORY OF PRESENT ILLNESS This is a 27-year-old male who was diagnosed with acute myeloid leukemia in December of 2016. He had presented with anemia and thrombocytopenia and acute episodes of confusion. He was found to have circulating blasts on the differential Peripheral smear was also suspicious for acute leukemia. The patient underwent a bone marrow biopsy which confirmed acute myeloid leukemia. This is a FLT-3 negative leukemia. He was found to have inversion 16 which carries a favorable risk. The patient underwent induction chemotherapy consisting of daunorubicin and cytarabine in December 2016. Day 15 bone marrow biopsy revealed no presence of disease and recovering bone marrow. The patient subsequently had count recovery and he was discharged from the hospital. He then underwent consolidation chemotherapy with HiDAC and was admitted to the hospital on 03/01/2017. His consolidation chemotherapy was uneventful and he was subsequently discharged from the hospital. The patient's previous hospitalizations have been complicated with episodes of abdominal pain. He has undergone extensive workup including multiple MRI and CT scans of the abdomen, a HIDA scan, upper endoscopy and has been seen by GI. He previously was found to have erosive esophagitis and candidiasis and he was treated with IV Protonix and Diflucan. However, his pain level has not been proportional to the findings on the CT scan and other work-up and he has been asking for increasing amount of narcotics. He presented to the oncology clinic on March 12, 2017 with subjective fevers and chills and feeling unwell. He complained of bright red blood per rectum. The patient was found to be severely neutropenic with ANC of 0. He has thrombocytopenia with platelet count around 18,000. The patient is now being admitted to the hospital for febrile neutropenia, acute thrombocytopenia and possible GI bleeding. He is complaining of abdominal pain. The patient was hypotensive on admission, however, he has responded well to the fluid boluses and his blood pressure is stabilized. REVIEW OF SYSTEMS A comprehensive 14-point review of systems was completed which is negative except as described in the HPI. PAST MEDICAL HISTORY Acute myeloid leukemia. PAST SURGICAL HISTORY Bone marrow biopsy x2 in 2017. OUTPATIENT MEDICATIONS Include: 1. Acyclovir 200 milligrams p.o. b.i.d. 2. Oxycodone 10 milligrams p.o. q. 6 hours p.r.n. 3. Pantoprazole 40 milligram one tablet p.o. daily. 4. Bactrim 1 tablet 800/160 Wednesday, Wednesday and Wednesday. 5. Cipro 250 milligrams one tablet on Wednesday, and Saturdays. ALLERGIES No known drug allergies. FAMILY HISTORY Noncontributory to this admission. 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 He is also a part-time student at [employer]. He denies tobacco abuse. No illicit drug use. He does not consume alcohol. PHYSICAL EXAMINATION VITAL SIGNS: Blood pressure is 112/37, pulse is in the 100s, temperature is 99.2, O2 sats are 100% on room air. GENERAL: Obese, well-developed, well-nourished male in [id number] distress. HEENT: Pupils are equal, round, reactive to light. EOMI. No oral thrush. No oral lesions. NECK: Supple. No JVD, no bruits. No lymphadenopathy. CHEST: Clear to auscultation bilaterally. CARDIAC: Tachycardiac in the 90s to 100. ABDOMEN: Abdomen is distended due to obesity. Bowel sounds are present. It is diffusely tender. No rebound, guarding. EXTREMITIES: No edema, erythema or cyanosis. SKIN: Without any petechiae, lesion or bruises. NEURO: No focal deficits. PSYCHIATRIC: Mood and affect is appropriate. LABORATORY DATA WBC is 0.4, hemoglobin is 8.6, platelet count of 10. Serum chemistries show sodium of 137, potassium 3.6, chloride 101, CO2 26, anion gap is 10, BUN is 9, creatinine is 0.67, GFR is 145, lactic acid is 0.8, calcium is 8.4, total bilirubin is 1.5, AST 13, ALT is 81, alk phos is 76, total protein is 6.9, albumin is 3.1. Coags, his fibrinogen is 589. PT is 11.1, INR is 1, PTT is 33.6, blood cultures x2 are pending. IMAGING STUDIES Chest x-ray was ordered on admission which did not show any acute cardiopulmonary issues. A CT scan of the abdomen and pelvis was also ordered. However, it is completely normal. ASSESSMENT/PLAN This is a 27-year-old male who has a diagnosis of acute myeloid leukemia who has undergone induction and consolidation treatment cycle #1. He is being admitted to the hospital with febrile neutropenia and hypotension. 1. Febrile neutropenia. Will start him on IV cefepime for gram-negative coverage. If he becomes un-stable including persistent fevers or hypotension will add vancomycin. Blood cultures x2 have been obtained. Check UA and urine cultures. Chest x-ray was obtained and I have reviewed it. It does not appear to have any acute cardiopulmonary pathology. He is expected to have neutropenia post HiDAC consolidation. I would hold off on starting Neupogen injections at this time and would wait to have his counts recover since he has bone marrow suppression from HiDAC chemotherapy. 2. Severe thrombocytopenia with a platelet count of 19. Will transfuse him 1 unit of platelets. On repeat testing his platelet count has come back at 10. I will give him two additional units of platelets since he has complained of bright red blood per rectum. 3. ? Lower GI bleeding, possibly due to acute thrombocytopenia. Obtain stool Hemoccult, closely monitor his hemoglobin. If he does have persistent bleeding any interventions will be limited due to severe neutropenia. 4. Anemia with hemoglobin 8.6, obtain hemolysis lab. My threshold for transfusing this patient is a hemoglobin of 7 or less unless he is symptomatic. He has responded well to fluid boluses and his blood pressure has come up. Thus, we will hold off on giving any packed red blood cell transfusions. He will require irradiated blood products. 5. Fluid electrolyte and nutrition: Start normal saline 50 cc an hour, neutropenic diet. Check magnesium and phosphorus on a daily basis. Check CMP, replete electrolytes as needed. 6. Abdominal pain of unclear etiology. He has had extensive GI workup. I do not believe that he has typhlitis; this was mentioned in conversation with the escalator constructor. I have reviewed the CT scan and this does not support a diagnosis of typhlitis either. The abdominal pain is an ongoing issue. We will be conservative in terms of giving him IV narcotics. If we do have to give him IV Dilaudid we will dilute in 50 cc of normal saline and to be infused over 20 minutes. Continue oxycodone 10 milligrams p.o. q. 4-6 hours p.r.n. pain. Start stool softeners, senna and Colace. Further recommendations will be made during the course of this admission. MD MAJOR Muñiz/KEVIN /12:22 AM /11:11 AM MTDTorin
--- NOTE | 2017-03-13 13:48 | PD.ID.CON ---
History of Present Illness Service ID Consult Requested By Erika OQUENDO Reason for Consult febrile neutropenia Primary Care Physician Catina Brian MD Diagnoses: History of Present Illness 27 yo male known to me from his prevfios admission 3 mos ago He was back in december diagnosed with AML and received induction therfapy He had neutropneic fever and pneumonia Pt is sp 1st cycloe of consolitrdation tx last week when he start to experience fever, chills, abd pain, diaarea dna nausea He had multiple liquid BMs He presented with fever of 103 and ANC of 0 He was started on broad spectruma abx and deveresed still with mild abd pain He had unremarkable MRCP and CT abd/pel last week Review of Systems Constitutional: COMPLAINS OF: Fever Gastrointestinal: COMPLAINS OF: Diarrhea, Nausea Except as stated in HPI: all other systems reviewed are Neg Past Family Social History Allergies: Coded Allergies: No Known Allergies (Verified Allergy, Unknown, 03/12/17) Past Medical History AML Past Surgical History [place] Tooth Extraction PORT placement Active Ordered Medications Medications where reviewed in EMR Antibiotics Include: cefepime vancomycin Family History Reviewed. No h/o DM or CAD Social History Occasional alcohol. Negative for tobacco or drugs. + travcel to [place] 6 yrs ago Physical Exam Vital Signs Vital Signs Date Time Temp Pulse Resp B/P (MAP) Pulse Ox O2 Delivery O2 Flow Rate FiO2 03/13/17 11:47 98.3 77 18 117/58 97 03/13/17 11:00 98.3 77 18 111/52 96 03/13/17 11:00 98.3 78 18 111/52 (71) 94 03/13/17 11:00 78 03/13/17 10:30 98.3 76 16 110/50 94 03/13/17 10:13 97.9 90 20 107/49 96 03/13/17 09:52 98.2 88 20 105/48 98 03/13/17 09:10 98.2 86 20 117/55 99 03/13/17 08:45 97.9 77 18 116/74 99 03/13/17 08:25 98.1 18 20 110/48 97 03/13/17 08:06 98.3 74 18 124/63 99 03/13/17 07:00 99 Room Air 03/13/17 07:00 98.3 74 18 124/63 (83) 99 03/13/17 07:00 78 03/13/17 06:10 97.6 74 18 136/58 97 03/13/17 05:48 78 117/56 03/13/17 05:34 79 03/13/17 05:30 98.5 82 20 117/56 99 03/13/17 05:10 98.7 82 18 110/60 97 03/13/17 04:47 98.9 82 20 97/57 93 03/13/17 04:00 98.5 87 20 109/57 (74) 93 03/12/17 23:00 88 03/12/17 22:30 99.3 92 20 127/70 (89) 99 03/12/17 22:30 99 Room Air 03/12/17 21:48 89 18 133/56 (81) 100 03/12/17 21:18 18 03/12/17 21:18 18 03/12/17 20:38 99.2 101 23 112/37 (62) 100 03/12/17 18:00 100.4 94 18 114/47 (69) 100 03/12/17 17:31 103.0 99 18 130/44 98 03/12/17 17:13 111/48 (69) 03/12/17 16:41 96 103/53 (70) 03/12/17 16:00 102.5 18 125/55 (78) 100 03/12/17 15:36 97 18 111/75 (87) 97 03/12/17 15:08 71/37 (48) 03/12/17 15:04 74/35 (48) 03/12/17 14:58 101 18 72/52 (59) 100 03/12/17 14:35 100.0 93 18 87/50 (62) 100 Physical Exam CONSTITUTIONAL/GENERAL: This is a morbidly obese patient, in no distress. TUBES/LINES/DRAINS:PORT in place R chest - OK SKIN: No jaundice, rashes, or lesions. Skin temperature appropriate. Not diaphoretic. HEAD: Atraumatic. Normocephalic. EYES: Pupils equal and round and reactive. Extraocular motions intact. No scleral icterus. No injection or drainage. Fundi not examined. ENT: Hearing grossly normal. Nose without bleeding or purulent drainage. Dentition in good condition + Mucositis present with shallow zion erythamout lesions NECK: Trachea midline. Supple, nontender. CARDIOVASCULAR: Regular tachycardia without murmurs, gallops, or rubs. No JVD. Peripheral pulses symmetric. Well perfused perifery RESPIRATORY/CHEST: Symmetric, unlabored respirations. Clear to auscultation. Breath sounds equal bilaterally. No wheezes, rales, or rhonchi. GASTROINTESTINAL: Abdomen soft, mildly tender diffusely , nondistended. Very obese No hepato-splenomegaly, or palpable masses. No guarding. Bowel sounds present. MUSCULOSKELETAL: Extremities without clubbing, cyanosis, or edema. No joint tenderness or effusion noted. No calf tenderness. No mottling or clubbing. LYMPHATICS: No palpable cervical or supraclavicular adenopathy. NEUROLOGICAL: Awake and alert. Motor and sensory grossly within normal limits. Follows commands. Normal speech, though can only say few words at a time 2/2 resp distress. Moves all extremities. PSYCHIATRIC: calm, pleasant Laboratory Laboratory Tests Test 03/12/17 16:40 03/12/17 17:50 03/13/17 04:12 03/13/17 06:20 Urine Color YELLOW Urine Turbidity CLEAR Urine pH 7.5 Urine Specific [place] 1.018 Urine Protein TRACE Urine Glucose (UA) NEG Urine Ketones NEG Urine Occult Blood NEG Urine Nitrite NEG Urine Bilirubin NEG Urine Urobilinogen LESS THAN 2.0 Urine Leukocyte Esterase NEG Urine WBC 2 Urine Mucus FEW Microscopic Urinalysis Comment CULT NOT INDICATED Lactic Acid Level 0.8 Blood Gas Puncture Site RT RADIAL Blood Gas Patient Temperature 98.6 Blood Gas HCO3 25 Blood Gas Base Excess 1.8 Blood Gas Oxygen Saturation 95 Arterial Blood pH 7.48 Arterial Blood Partial Pressure CO2 34 Arterial Blood Partial Pressure O2 102 Arterial Blood Oxygen Content 10.8 Arterial Blood Carboxyhemoglobin 1.6 Arterial Blood Methemoglobin 1.2 Blood Gas Hemoglobin 7.9 Oxygen Delivery Device ROOM AIR Blood Gas Inspired Oxygen 21 White Blood Count 0.3 Corrected White Blood Count 0.0 Red Blood Count 2.74 Hemoglobin 7.1 Hematocrit 21.2 Mean Corpuscular Volume 77.4 Mean Corpuscular Hemoglobin 25.9 Mean Corpuscular Hemoglobin Concent 33.5 Red Cell Distribution Width 14.7 Platelet Count 12 19 Mean Platelet Volume 7.5 CBC Comment AUTO DIFF Differential Total Cells Counted 50 Lymphocytes % 100 Neutrophils # (Manual) Differential Comment FINAL DIFF MANUAL Platelet Estimate RARE Platelet Morphology Comment NORMAL Haptoglobin 240 Result Diagram: 03/13/17 0620 03/12/17 1145 Imaging Last Impressions Chest X-Ray 03/12/17 0000 Signed Impressions: Service Date/Time: Sunday, March 12, 2017 14:54 - CONCLUSION: No acute cardiopulmonary disease. Garcia Tello MD Abdomen/Pelvis CT 03/12/17 0000 Signed Impressions: Service Date/Time: Sunday, March 12, 2017 22:12 - CONCLUSION: Normal examination. The appendix is normal. Better distention of the gallbladder without obvious calcified stone Enrique Ramos MD Assessment and Plan Assessment and Plan Acute myelogeonous leukemia, sp consolidation cycle Febrile neutropenia ? source: PORT, mucositis, GI , C.diff Cont broad spectrum abx cefepime, vanco, fluconazole stool for C.diff, stool path If cont to have fevers and abd pain will get CT Discussed Condition With Alana Garza MD Mar 13, 2017 13:48
[2017-03-13 14:43] LABS: ANION GAP 11 MEQ/L (5-15); AST (GOT) 11 U/L (15-37); BICARBONATE 24.8 MEQ/L (21.0-32.0); BLOOD UREA NITROGEN 7 MG/DL (7-18); CHLORIDE 103 MEQ/L (98-107); GLOMERULAR FILTRATION RATE 161 ML/MIN (>89); POTASSIUM 3.6 MEQ/L (3.5-5.1); SODIUM (NA) 139 MEQ/L (136-145); URIC ACID 3.3 MG/DL (2.6-7.2)
[2017-03-13 14:44] LABS: ALT (GPT) 55 U/L (12-78)
[2017-03-13 14:47] LABS: ALKALINE PHOSPHATASE 63 U/L (45-117); LDH SERUM 94 U/L (87-241); TOTAL BILIRUBIN ADULT 1.6 MG/DL (0.2-1.0)
[2017-03-13] MEDS ORDERED: ACETAMINOPHEN 325 MG TAB PO ONE (16:30)
[2017-03-13] MEDS ORDERED: diphenhydrAMINE HCL 25 MG CAP PO ONE (16:30)
[2017-03-13] MEDS: FLUCONAZOLE 100 MG PREMIX BAG 50 ML IV SCH (19:52)
[2017-03-14] VITALS (13 sets, daily range): BP systolic 103–139; BP diastolic 54–72; PULSE 18–107; RESP 16–18; TEMP 98.1–98.8; O2SAT 98–100
[2017-03-14] MEDS: HYDROmorphone HCL PF 1 MG/ML VIAL IV PUSH PRN ×5 (01:57→22:11)
[2017-03-14] MEDS: CEFEPIME INJ 2,000 MG in SODIUM CHLORIDE 0.9% INJ 100 ML IV SCH ×3 (03:35→22:04)
[2017-03-14] MEDS: SODIUM CHLOR 0.9% 1000 ML INJ 1,000 ML IV SCH ×3 (05:49→22:56)
[2017-03-14] MEDS: VANCOMYCIN INJ 2,000 MG in SODIUM CHLORID 0.9% 500 ML INJ 500 ML IV SCH ×2 (06:10→18:14)
[2017-03-14] MEDS ORDERED: PHARMACY ORDERED LAB ONE (06:15)
[2017-03-14 06:25] LABS: EOSINOPHIL % 0.2 % (0.0-4.0); HEMATOCRIT 21.6 % (39.0-51.0); LYMPH % 99.2 % (9.0-44.0); LYMPHOCYTE # 0.4 TH/MM3 (1.0-4.8); MEAN CELL VOLUME 77.7 FL (80.0-100.0); MEAN CORPUSCULAR HEMOGLOBIN 26.7 PG (27.0-34.0); MEAN CORPUSCULAR HGB CONC 34.3 % (32.0-36.0); MONO % 0.6 % (0.0-8.0); PLATELET COUNT 23 TH/MM3 (150-450); RED BLOOD COUNT 2.78 MIL/MM3 (4.50-5.90); RED CELL DISTRIBUTION WIDTH 14.1 % (11.6-17.2); WHITE BLOOD COUNT 0.4 TH/MM3 (4.0-11.0)
[2017-03-14 06:30] LABS: HEMO FLAGS AUTO DIFF
--- NOTE | 2017-03-14 09:05 | PD.ONC.PN ---
Subjective Subjective Remarks Afebrile overnight. Patient resting in bed in nad. Patient complaining of pain in his anus for the past two days. He states he has had no bowel movement for the past 24 hours, but prior to that had been having diarrhea. Ate a burger and fries from [employer] last night. Reports he still has intermittent abdominal pain. Advised patient to avoid eating outside food because of the risks of foodborne illness. Objective Data Date Time Temp Pulse Resp B/P (MAP) Pulse Ox O2 Delivery O2 Flow Rate FiO2 03/14/17 06:26 16 03/14/17 05:47 16 03/14/17 04:07 98.1 84 16 115/54 (74) 98 03/14/17 04:00 18 03/14/17 01:40 88 03/14/17 00:00 98.6 81 16 103/63 (76) 99 03/13/17 20:14 98.5 58 18 145/86 (105) 99 03/13/17 20:12 90 03/13/17 19:31 Room Air 21 03/13/17 15:14 99.0 03/13/17 15:00 83 18 140/71 (94) 95 03/13/17 15:00 Room Air 03/13/17 11:47 98.3 77 18 117/58 97 03/13/17 11:00 98.3 77 18 111/52 96 03/13/17 11:00 98.3 78 18 111/52 (71) 94 03/13/17 11:00 78 03/13/17 10:30 98.3 76 16 110/50 94 03/13/17 10:13 97.9 90 20 107/49 96 03/13/17 09:52 98.2 88 20 105/48 98 03/13/17 09:10 98.2 86 20 117/55 99 03/14/17 03/14/17 03/14/17 07:00 15:00 23:00 Intake Total 480 ml Balance 480 ml Result Diagram: 03/14/17 0610 03/13/17 0620 Laboratory Results Laboratory Tests Test 03/14/17 06:10 White Blood Count 0.4 TH/MM3 Red Blood Count 2.78 MIL/MM3 Hemoglobin 7.4 GM/DL Hematocrit 21.6 % Mean Corpuscular Volume 77.7 FL Mean Corpuscular Hemoglobin 26.7 PG Mean Corpuscular Hemoglobin Concent 34.3 % Red Cell Distribution Width 14.1 % Platelet Count 23 TH/MM3 Mean Platelet Volume 6.2 FL Neutrophils (%) (Auto) 0.0 % Lymphocytes (%) (Auto) 99.2 % Monocytes (%) (Auto) 0.6 % Eosinophils (%) (Auto) 0.2 % Basophils (%) (Auto) 0.0 % Neutrophils # (Auto) 0.0 TH/MM3 Lymphocytes # (Auto) 0.4 TH/MM3 Monocytes # (Auto) 0.0 TH/MM3 Eosinophils # (Auto) 0.0 TH/MM3 Basophils # (Auto) 0.0 TH/MM3 CBC Comment AUTO DIFF Vancomycin Level Trough 10.6 MCG/ML Administered Medications Medications (Trade) Dose Ordered Sig/Emma Route PRN Reason Start Time Stop Time Status Last Admin Dose Admin Cefepime HCl 2000 mg/Sodium Chloride 100 ml @ 200 mls/hr Q8H IV 03/12/17 20:00 03/14/17 03:35 Sodium Chloride 1,000 ml @ 125 mls/hr Q8H IV 03/12/17 14:30 03/14/17 05:49 Acetaminophen (Tylenol) 650 mg Q4H PRN PO fever>100.4 03/12/17 14:30 03/12/17 15:06 Oxycodone HCl (Roxicodone) 5 mg Q4H PRN PO pain 1-10 03/12/17 14:30 03/14/17 03:35 Hydromorphone HCl (Dilaudid Pf Inj) 1 mg Q4H PRN IV PUSH severe breakthrough pain 03/12/17 14:30 03/14/17 05:49 Acetaminophen (Tylenol) 650 mg Q4H PRN PO SEE LABEL COMMENTS 03/12/17 14:30 03/13/17 02:07 Vancomycin HCl 2000 mg/Sodium Chloride 520 ml @ 250 mls/hr Q12H IV 03/12/17 18:30 03/14/17 06:10 Fluconazole/ Sodium Chloride 50 ml @ 50 mls/hr Q24H IV 03/13/17 21:00 03/13/17 19:52 Objective Remarks GENERAL: Young man, lying in bed in NAD. SKIN: Warm and dry. HEAD: Normocephalic. EYES: No injection or drainage. NECK: Supple, trachea midline. CARDIOVASCULAR: Regular rate and rhythm RESPIRATORY: Breath sounds equal bilaterally. No accessory muscle use. GASTROINTESTINAL: Abdomen soft, non-tender, nondistended. Anus: large amounts of soft stool noted around the anus. This was removed with wipes to reveal mildly excoriated anal tissue. no signs of infection. EXTREMITIES: No cyanosis NEUROLOGICAL: No obvious focal deficit. Awake, alert, and oriented x3. Assessment/Plan Problem List: (1) Neutropenic sepsis ICD Codes: A41.9 - Sepsis, unspecified organism; D70.9 - Neutropenia, unspecified Plan: --on Cefepime, Vancomycin, Diflucan --CT ab/pelvis, 03/12 shows no source --CXR: WNL --u/a: WNL --BC, 03/12: no growth (2) Abdominal pain ICD Codes: R10.9 - Unspecified abdominal pain Plan: --CT ab/pelvis does not elicit source of patient's pain --has had extensive w/u over past several admissions including multiple CT scans , EGD/colonoscopy, MRI, MRCP, HIDA scan --Oxycodone PRN (3) Pancytopenia ICD Codes: D61.818 - Other pancytopenia Plan: --d/t HiDAC --give irradiated CMV negative blood products (4) AML (acute myelogenous leukemia) ICD Codes: C92.00 - Acute myeloblastic leukemia, not having achieved remission Plan: --s/p consolidation chemotherapy with HiDAC 03/02 to 03/07 --diagnosed in January 2017. FLT-3 negative, +inversion 16, carries a favorable risk. --s/p induction chemotherapy with daunorubicin and cytarabine, 7+3 regimen. --> achieved complete remission. (5) Anal irritation ICD Codes: K62.89 - Other specified diseases of anus and rectum Plan: --likely d/t acidic bowel movements. --patient advised to wash after each bowel movement and ask for assistance from nurse to put barrier cream in area. Assessment 27y/o male with AML in remission, completed cycle 1 consolidation chemotherapy 03/06, now admitted for neutropenic sepsis. Plan 1. give 1 unit irradiated pRBC 2. continue antibiotics. 3. hygiene and barrier cream to anus. Attending Statement The exam, history, and the medical decision-making described in the above note were completed with the assistance of the mid-level provider. I reviewed and agree with the findings presented. I attest that I had a [id number] encounter with the patient on the same day, and personally performed and documented my assessment and findings in the medical record. 27 yoM with AML s/ p induction therapy and cycle one of consolidation chemotherapy admitted with neutropenic fever. Afebrile, VSS. On antibiotics. Cultures with no growth. Transfuse LR/IR blood products. Keep anal area clean. Problem Qualifiers (1) AML (acute myelogenous leukemia): Qualified Codes: C92.01 - Acute myeloblastic leukemia, in remission Fartun Pagan Mar 14, 2017 09:05 Kyara Pedersen MD Mar 14, 2017 12:35
[2017-03-14] MEDS ORDERED: diphenhydrAMINE HCL 25 MG CAP PO PRN (09:15)
[2017-03-14] MEDS ORDERED: ACETAMINOPHEN 325 MG TAB PO PRN (09:15)
[2017-03-14] MEDS ORDERED: SODIUM CHLOR 0.9% 250 ML INJ 250 ML IV ONE (09:15)
[2017-03-14] MEDS ORDERED: VANCOMYCIN INJ 2,000 MG in SODIUM CHLORID 0.9% 500 ML INJ 500 ML IV SCH (14:00)
[2017-03-14 14:02] LABS: WBC DIFF SAMPLE 40
[2017-03-14 14:07] LABS: PLATELET ESTIMATE SMEAR LOW (NORMAL); PLATELET MORPHOLOGY NORMAL (NORMAL); SCAN/DIFF FINAL DIFF MANUAL
[2017-03-14] MEDS: FLUCONAZOLE 100 MG PREMIX BAG 50 ML IV SCH (22:04)
[2017-03-15] VITALS (9 sets, daily range): BP systolic 108–142; BP diastolic 46–82; PULSE 70–100; RESP 15–16; TEMP 97.6–99.3; O2SAT 98–100
[2017-03-15] MEDS: VANCOMYCIN INJ 2,000 MG in SODIUM CHLORID 0.9% 500 ML INJ 500 ML IV SCH ×3 (02:00→17:23)
[2017-03-15] MEDS: HYDROmorphone HCL PF 1 MG/ML VIAL IV PUSH PRN ×5 (02:13→21:19)
[2017-03-15] MEDS: CEFEPIME INJ 2,000 MG in SODIUM CHLORIDE 0.9% INJ 100 ML IV SCH ×3 (04:23→20:04)
[2017-03-15 05:15] LABS: HEMATOCRIT 24.2 % (39.0-51.0); MEAN CELL VOLUME 77.8 FL (80.0-100.0); MEAN CORPUSCULAR HEMOGLOBIN 26.2 PG (27.0-34.0); MEAN CORPUSCULAR HGB CONC 33.7 % (32.0-36.0); PLATELET COUNT 21 TH/MM3 (150-450); RED BLOOD COUNT 3.11 MIL/MM3 (4.50-5.90); RED CELL DISTRIBUTION WIDTH 14.2 % (11.6-17.2); WHITE BLOOD COUNT 0.5 TH/MM3 (4.0-11.0)
[2017-03-15 05:17] LABS: HEMO FLAGS AUTO DIFF
[2017-03-15] MEDS: SODIUM CHLOR 0.9% 1000 ML INJ 1,000 ML IV SCH (05:53)
[2017-03-15 07:08] LABS: WBC DIFF SAMPLE 25
[2017-03-15 07:09] LABS: PLATELET ESTIMATE SMEAR LOW (NORMAL); PLATELET MORPHOLOGY NORMAL (NORMAL); SCAN/DIFF FINAL DIFF MANUAL
[2017-03-15] MEDS ORDERED: PHARMACY ORDERED LAB ONE (07:45)
--- NOTE | 2017-03-15 10:41 | PD.ONC.PN ---
Subjective Subjective Remarks Afebrile overnight. Tired of being in the hospital. Feeling stronger today. Anal pain improved with new hygiene regimen. Objective Data Date Time Temp Pulse Resp B/P (MAP) Pulse Ox O2 Delivery O2 Flow Rate FiO2 03/15/17 09:25 97.6 76 16 129/46 (73) 98 03/15/17 06:32 16 03/15/17 05:43 16 03/15/17 04:43 74 03/15/17 04:30 99.3 83 16 136/73 (94) 99 03/15/17 00:26 100 03/15/17 00:13 98.5 92 16 108/53 (71) 99 03/14/17 22:46 83 03/14/17 20:28 Room Air 21 03/14/17 20:27 98.5 107 18 103/68 (80) 100 03/14/17 17:52 98.5 84 18 119/64 (82) 100 03/14/17 16:34 98.4 80 18 126/68 98 03/14/17 15:03 98.5 84 18 119/64 100 03/14/17 14:54 98.3 88 18 139/67 (91) 99 03/14/17 14:43 98.3 88 18 139/67 99 03/14/17 11:10 99 Room Air 03/15/17 03/15/17 03/15/17 07:00 15:00 23:00 Intake Total 2658 ml Output Total 1700 ml Balance 958 ml Result Diagram: 03/15/17 0439 03/13/17 0620 Laboratory Results Laboratory Tests Test 03/15/17 04:39 03/15/17 09:40 White Blood Count 0.5 TH/MM3 Red Blood Count 3.11 MIL/MM3 Hemoglobin 8.1 GM/DL Hematocrit 24.2 % Mean Corpuscular Volume 77.8 FL Mean Corpuscular Hemoglobin 26.2 PG Mean Corpuscular Hemoglobin Concent 33.7 % Red Cell Distribution Width 14.2 % Platelet Count 21 TH/MM3 Mean Platelet Volume 7.1 FL CBC Comment AUTO DIFF Differential Total Cells Counted 25 Lymphocytes % 96 % Monocytes % 4 % Neutrophils # (Manual) 0.0 TH/MM3 Differential Comment FINAL DIFF MANUAL Platelet Estimate LOW Platelet Morphology Comment NORMAL Culture Results Microbiology Date/Time Source Procedure Growth Status 03/14/17 09:55 Stool Stool - Final NO ENTERIC PATHOGENS DETECTED BY PCR... Complete Administered Medications Medications (Trade) Dose Ordered Sig/Emma Route PRN Reason Start Time Stop Time Status Last Admin Dose Admin Cefepime HCl 2000 mg/Sodium Chloride 100 ml @ 200 mls/hr Q8H IV 03/12/17 20:00 03/15/17 04:23 Sodium Chloride 1,000 ml @ 125 mls/hr Q8H IV 03/12/17 14:30 03/14/17 12:43 Acetaminophen (Tylenol) 650 mg Q4H PRN PO fever>100.4 03/12/17 14:30 03/12/17 15:06 Oxycodone HCl (Roxicodone) 5 mg Q4H PRN PO pain 1-10 03/12/17 14:30 03/15/17 09:52 Hydromorphone HCl (Dilaudid Pf Inj) 1 mg Q4H PRN IV PUSH severe breakthrough pain 03/12/17 14:30 03/15/17 05:58 Fluconazole/ Sodium Chloride 50 ml @ 50 mls/hr Q24H IV 03/13/17 21:00 03/14/17 22:04 Vancomycin HCl 2000 mg/Sodium Chloride 520 ml @ 250 mls/hr Q8H IV 03/14/17 18:00 03/15/17 09:44 Objective Remarks GENERAL: Young man, lying in bed in NAD. SKIN: Warm and dry. port in place. HEAD: Normocephalic. EYES: No injection or drainage. NECK: Supple, trachea midline. CARDIOVASCULAR: Regular rate and rhythm RESPIRATORY: Breath sounds equal bilaterally. No accessory muscle use. GASTROINTESTINAL: Abdomen soft, non-tender, nondistended. EXTREMITIES: No cyanosis NEUROLOGICAL: awake and alert. moving all extremities. normal speech. Assessment/Plan Problem List: (1) Neutropenic sepsis ICD Codes: A41.9 - Sepsis, unspecified organism; D70.9 - Neutropenia, unspecified Plan: --on Cefepime, Vancomycin, Diflucan --CT ab/pelvis, 03/12 shows no source --CXR: WNL --u/a: WNL --BC, 03/12: no growth (2) Abdominal pain ICD Codes: R10.9 - Unspecified abdominal pain Plan: --CT ab/pelvis does not elicit source of patient's pain --has had extensive w/u over past several admissions including multiple CT scans , EGD/colonoscopy, MRI, MRCP, HIDA scan --Oxycodone PRN (3) Pancytopenia ICD Codes: D61.818 - Other pancytopenia Plan: --d/t HiDAC --give irradiated CMV negative blood products (4) AML (acute myelogenous leukemia) ICD Codes: C92.00 - Acute myeloblastic leukemia, not having achieved remission Plan: --s/p consolidation chemotherapy with HiDAC 03/02 to 03/07 --diagnosed in January 2017. FLT-3 negative, +inversion 16, carries a favorable risk. --s/p induction chemotherapy with daunorubicin and cytarabine, 7+3 regimen. --> achieved complete remission. (5) Anal irritation ICD Codes: K62.89 - Other specified diseases of anus and rectum Plan: --likely d/t acidic bowel movements. --patient advised to wash after each bowel movement and ask for assistance from nurse to put barrier cream in area. Assessment 27y/o male with AML in remission, completed cycle 1 consolidation chemotherapy 03/06, now admitted for neutropenic sepsis. Plan 1. continue antibiotics. 2. reduce fluids to 42cc/hr 3. monitor CBC Attending Statement The exam, history, and the medical decision-making described in the above note were completed with the assistance of the mid-level provider. I reviewed and agree with the findings presented. I attest that I had a [id number] encounter with the patient on the same day, and personally performed and documented my assessment and findings in the medical record AML Inv 16, s/p induction and consolidation # 1 Febrile Neutropenia--ANC is 0 Blood cultures negative thus far--no fevers will d/c Vancomycin continue cefepime continue Diflucan start acyclovir 200mg PO BID no blood products today advised patient to abstain from eating outside food- has high risk of infection needs to be on neutropenic diet daily cbc/cmp/mag/phosp d/w rn o/n events reviewed Problem Qualifiers (1) AML (acute myelogenous leukemia): Qualified Codes: C92.01 - Acute myeloblastic leukemia, in remission Fartun Pagan Mar 15, 2017 10:41 Joey Santoyo MD Mar 15, 2017 22:11
[2017-03-15] MEDS: FLUCONAZOLE 100 MG PREMIX BAG 50 ML IV SCH (20:43)
[2017-03-15] MEDS: ACYCLOVIR 200 MG CAP PO SCH (23:17)
[2017-03-16] VITALS (12 sets, daily range): BP systolic 100–158; BP diastolic 54–78; PULSE 69–86; RESP 16–21; TEMP 97.6–98.5; O2SAT 96–100
[2017-03-16] MEDS: HYDROmorphone HCL PF 1 MG/ML VIAL IV PUSH PRN ×6 (00:40→22:30)
[2017-03-16] MEDS: CEFEPIME INJ 2,000 MG in SODIUM CHLORIDE 0.9% INJ 100 ML IV SCH ×3 (03:39→19:54)
[2017-03-16] MEDS: SODIUM CHLOR 0.9% 1000 ML INJ 1,000 ML IV SCH (03:41)
[2017-03-16 06:17] LABS: EOSINOPHIL % 0.2 % (0.0-4.0); HEMATOCRIT 23.7 % (39.0-51.0); LYMPH % 91.5 % (9.0-44.0); LYMPHOCYTE # 0.5 TH/MM3 (1.0-4.8); MEAN CELL VOLUME 77.8 FL (80.0-100.0); MEAN CORPUSCULAR HEMOGLOBIN 26.8 PG (27.0-34.0); MEAN CORPUSCULAR HGB CONC 34.5 % (32.0-36.0); MONO % 0.8 % (0.0-8.0); NEUT % 7.5 % (16.0-70.0); RED BLOOD COUNT 3.05 MIL/MM3 (4.50-5.90); RED CELL DISTRIBUTION WIDTH 14.2 % (11.6-17.2); WHITE BLOOD COUNT 0.5 TH/MM3 (4.0-11.0)
[2017-03-16 06:34] LABS: HEMO FLAGS AUTO DIFF
[2017-03-16 06:35] LABS: PLATELET COUNT 15 TH/MM3 (150-450)
[2017-03-16 06:38] LABS: ANION GAP 8 MEQ/L (5-15); AST (GOT) 20 U/L (15-37); BICARBONATE 28.3 MEQ/L (21.0-32.0); BLOOD UREA NITROGEN 4 MG/DL (7-18); CHLORIDE 101 MEQ/L (98-107); GLOMERULAR FILTRATION RATE 161 ML/MIN (>89); POTASSIUM 3.5 MEQ/L (3.5-5.1); SODIUM (NA) 137 MEQ/L (136-145); URIC ACID 3.4 MG/DL (2.6-7.2)
[2017-03-16 06:39] LABS: ALT (GPT) 49 U/L (12-78)
[2017-03-16 06:41] LABS: ALKALINE PHOSPHATASE 79 U/L (45-117); TOTAL BILIRUBIN ADULT 0.6 MG/DL (0.2-1.0)
[2017-03-16 08:30] LABS: PLATELET ESTIMATE SMEAR RARE (NORMAL); WBC DIFF SAMPLE 50
[2017-03-16 08:31] LABS: PLATELET MORPHOLOGY NORMAL (NORMAL); SCAN/DIFF FINAL DIFF MANUAL
[2017-03-16] MEDS: ACYCLOVIR 200 MG CAP PO SCH ×2 (09:20→19:54)
[2017-03-16] MEDS ORDERED: SODIUM CHLORIDE 0.9% FLUSH 10 ML FLUSH IV FLUSH PRN (10:15)
[2017-03-16] MEDS ORDERED: SODIUM CHLOR 0.9% 250 ML INJ 250 ML IV ONE (12:00)
[2017-03-16] MEDS ORDERED: diphenhydrAMINE HCL 25 MG CAP PO PRN (12:00)
[2017-03-16] MEDS ORDERED: ACETAMINOPHEN 325 MG TAB PO PRN (12:00)
--- NOTE | 2017-03-16 13:47 | PD.ONC.PN ---
Subjective Subjective Remarks Afebrile overnight Pt resting in bed watching TV with dad at bedside. Reports continued abdominal pain Anal pain improved No bleeding Objective Data Date Time Temp Pulse Resp B/P (MAP) Pulse Ox O2 Delivery O2 Flow Rate FiO2 03/16/17 09:17 97.8 74 20 147/69 (95) 100 03/16/17 08:00 69 03/16/17 07:00 Room Air 03/16/17 05:09 155/59 (91) 03/16/17 03:37 97.9 77 16 128/54 (78) 96 03/16/17 00:30 152/70 (97) 03/15/17 23:39 97.9 73 15 126/56 (79) 98 03/15/17 21:00 86 03/15/17 21:00 98.6 70 16 121/69 (86) 100 03/15/17 21:00 Room Air 03/16/17 03/16/17 03/16/17 07:00 15:00 23:00 Intake Total 480 ml Output Total 1400 ml Balance -920 ml Result Diagram: 03/16/17 0556 03/16/17 0556 Laboratory Results Laboratory Tests Test 03/16/17 05:56 White Blood Count 0.5 TH/MM3 Red Blood Count 3.05 MIL/MM3 Hemoglobin 8.2 GM/DL Hematocrit 23.7 % Mean Corpuscular Volume 77.8 FL Mean Corpuscular Hemoglobin 26.8 PG Mean Corpuscular Hemoglobin Concent 34.5 % Red Cell Distribution Width 14.2 % Platelet Count 15 TH/MM3 Mean Platelet Volume 7.5 FL Neutrophils (%) (Auto) 7.5 % Lymphocytes (%) (Auto) 91.5 % Monocytes (%) (Auto) 0.8 % Eosinophils (%) (Auto) 0.2 % Basophils (%) (Auto) 0.0 % Neutrophils # (Auto) 0.0 TH/MM3 Lymphocytes # (Auto) 0.5 TH/MM3 Monocytes # (Auto) 0.0 TH/MM3 Eosinophils # (Auto) 0.0 TH/MM3 Basophils # (Auto) 0.0 TH/MM3 CBC Comment AUTO DIFF Differential Total Cells Counted 50 Lymphocytes % 98 % Monocytes % 2 % Neutrophils # (Manual) 0.0 TH/MM3 Differential Comment FINAL DIFF MANUAL Platelet Estimate RARE Platelet Morphology Comment NORMAL Red Cell Morphology Comment NORMAL Blood Urea Nitrogen 4 MG/DL Creatinine 0.61 MG/DL Random Glucose 97 MG/DL Total Protein 6.6 GM/DL Albumin 2.8 GM/DL Calcium Level 8.7 MG/DL Uric Acid 3.4 MG/DL Alkaline Phosphatase 79 U/L Aspartate Amino Transf (AST/SGOT) 20 U/L Alanine Aminotransferase (ALT/SGPT) 49 U/L Total Bilirubin 0.6 MG/DL Sodium Level 137 MEQ/L Potassium Level 3.5 MEQ/L Chloride Level 101 MEQ/L Carbon Dioxide Level 28.3 MEQ/L Anion Gap 8 MEQ/L Estimat Glomerular Filtration Rate 161 ML/MIN Culture Results Microbiology Date/Time Source Procedure Growth Status 03/14/17 09:55 Stool Stool - Final NO ENTERIC PATHOGENS DETECTED BY PCR... Complete Administered Medications Medications (Trade) Dose Ordered Sig/Emma Route PRN Reason Start Time Stop Time Status Last Admin Dose Admin Cefepime HCl 2000 mg/Sodium Chloride 100 ml @ 200 mls/hr Q8H IV 03/12/17 20:00 03/16/17 12:24 Sodium Chloride 1,000 ml @ 42 mls/hr [id number] IV 03/12/17 14:30 03/16/17 03:41 Acetaminophen (Tylenol) 650 mg Q4H PRN PO fever>100.4 03/12/17 14:30 03/12/17 15:06 Hydromorphone HCl (Dilaudid Pf Inj) 1 mg Q4H PRN IV PUSH severe breakthrough pain 03/12/17 14:30 03/16/17 10:46 Fluconazole/ Sodium Chloride 50 ml @ 50 mls/hr Q24H IV 03/13/17 21:00 03/15/17 20:43 Acyclovir (Zovirax) 200 mg Q12HR PO 03/15/17 22:15 03/16/17 09:20 Heparin Sodium (Porcine) (Heparin Central Flush) 500 units UNSCH IV FLUSH 03/16/17 10:15 03/16/17 11:16 Acetaminophen (Tylenol) 650 mg Q4H PRN PO SEE LABEL COMMENTS 03/16/17 12:00 03/16/17 22:00 03/16/17 13:25 Diphenhydramine HCl (Benadryl) 25 mg Q4H PRN PO SEE LABEL COMMENTS 03/16/17 12:00 03/16/17 22:00 03/16/17 13:25 Objective Remarks GENERAL: Young man, lying in bed in NAD. SKIN: Warm and dry. Port in place to R upper chest. HEAD: Normocephalic. EYES: No injection or drainage. NECK: Supple, trachea midline. CARDIOVASCULAR: Regular rate and rhythm RESPIRATORY: Breath sounds equal bilaterally. No accessory muscle use. GASTROINTESTINAL: Abdomen soft, non-tender, nondistended. EXTREMITIES: No cyanosis NEUROLOGICAL: Awake and alert. Moving all extremities. Normal speech. Assessment/Plan Problem List: (1) Neutropenic sepsis ICD Codes: A41.9 - Sepsis, unspecified organism; D70.9 - Neutropenia, unspecified Plan: --on Cefepime, Vancomycin, Diflucan --CT ab/pelvis, 03/12 shows no source --CXR: WNL --u/a: WNL --BC, 03/12: no growth (2) Abdominal pain ICD Codes: R10.9 - Unspecified abdominal pain Plan: --CT ab/pelvis does not elicit source of patient's pain --has had extensive w/u over past several admissions including multiple CT scans , EGD/colonoscopy, MRI, MRCP, HIDA scan --Oxycodone PRN (3) Pancytopenia ICD Codes: D61.818 - Other pancytopenia Plan: --d/t HiDAC --give irradiated CMV negative blood products (4) AML (acute myelogenous leukemia) ICD Codes: C92.00 - Acute myeloblastic leukemia, not having achieved remission Plan: --s/p consolidation chemotherapy with HiDAC 03/02 to 03/07 --diagnosed in January 2017. FLT-3 negative, +inversion 16, carries a favorable risk. --s/p induction chemotherapy with daunorubicin and cytarabine, 7+3 regimen. --> achieved complete remission. (5) Anal irritation ICD Codes: K62.89 - Other specified diseases of anus and rectum Plan: --likely d/t acidic bowel movements. --patient advised to wash after each bowel movement and ask for assistance from nurse to put barrier cream in area. -- Improving Assessment 27y/o male with AML in remission, completed cycle 1 consolidation chemotherapy 03/06, now admitted for neutropenic sepsis. Plan 1. Transfuse 1 unit irradiated platelets today. Will use Cathflo when platelets improved; port is not giving blood return. 2. All micro remains negative. For now his neutrophil count remains 0 and he has high risk for infection. 3. Continue Abx per ID. 4. Monitor CBC; will have HLA platelet on hand for next platelet transfusion. Discussed with RN Attending Statement The exam, history, and the medical decision-making described in the above note were completed with the assistance of the mid-level provider. I reviewed and agree with the findings presented. I attest that I had a [id number] encounter with the patient on the same day, and personally performed and documented my assessment and findings in the medical record AML s/p induction and consolidation cycle # 1 remains severely neutropenic continue cefepime, Diflucan and acyclovir remains afebrile, blood cultures negative Transfuse irradiated platelets neutropenic diet and precautions pain control with prn oxycodone and Dilaudid d/w rn o/n events reviewed Problem Qualifiers (1) AML (acute myelogenous leukemia): Qualified Codes: C92.01 - Acute myeloblastic leukemia, in remission Robina Cui Mar 16, 2017 13:46 Joey Santoyo MD Mar 16, 2017 23:44
[2017-03-16] MEDS ORDERED: oxyCODONE HCL 10 MG CONTROLLED RELEASE TAB PO PRN (14:15)
[2017-03-16] MEDS: SUCRALFATE 1 GM/10 ML CUP PO SCH ×2 (17:22→19:54)
--- NOTE | 2017-03-16 17:44 | HHI.IDPN ---
Subjective Subjective Remarks co abd pain resolved diarrhea no fever Antibiotics cefepime vancomycin fluc Allergies: Coded Allergies: No Known Allergies (Verified Allergy, Unknown, 03/12/17) Objective . Vital Signs Date Time Temp Pulse Resp B/P (MAP) Pulse Ox O2 Delivery O2 Flow Rate FiO2 03/16/17 17:16 98.3 86 20 158/77 (104) 100 03/16/17 15:45 98.1 81 20 121/73 100 03/16/17 14:46 98.3 72 18 119/66 100 03/16/17 13:35 98.5 83 18 138/69 (92) 99 03/16/17 09:17 97.8 74 20 147/69 (95) 100 03/16/17 08:00 69 03/16/17 07:00 Room Air 03/16/17 05:09 155/59 (91) 03/16/17 03:37 97.9 77 16 128/54 (78) 96 03/16/17 00:30 152/70 (97) 03/15/17 23:39 97.9 73 15 126/56 (79) 98 03/15/17 21:00 86 03/15/17 21:00 98.6 70 16 121/69 (86) 100 03/15/17 21:00 Room Air 03/16/17 03/16/17 03/17/17 15:00 23:00 07:00 Intake Total 105 ml 751 ml Output Total 950 ml Balance -845 ml 751 ml IV Total 100 ml 420 ml Platelets 331 ml Blood Product IV Normal Saline Flush 5 ml Output Urine Total 950 ml . Laboratory Tests Test 03/15/17 04:39 03/16/17 05:56 White Blood Count 0.5 TH/MM3 0.5 TH/MM3 Red Blood Count 3.11 MIL/MM3 3.05 MIL/MM3 Hemoglobin 8.1 GM/DL 8.2 GM/DL Hematocrit 24.2 % 23.7 % Mean Corpuscular Volume 77.8 FL 77.8 FL Mean Corpuscular Hemoglobin 26.2 PG 26.8 PG Mean Corpuscular Hemoglobin Concent 33.7 % 34.5 % Red Cell Distribution Width 14.2 % 14.2 % Platelet Count 21 TH/MM3 15 TH/MM3 Mean Platelet Volume 7.1 FL 7.5 FL CBC Comment AUTO DIFF AUTO DIFF Differential Total Cells Counted 25 50 Lymphocytes % 96 % 98 % Monocytes % 4 % 2 % Neutrophils # (Manual) 0.0 TH/MM3 0.0 TH/MM3 Differential Comment FINAL DIFF MANUAL FINAL DIFF MANUAL Platelet Estimate LOW RARE Platelet Morphology Comment NORMAL NORMAL Neutrophils (%) (Auto) 7.5 % Lymphocytes (%) (Auto) 91.5 % Monocytes (%) (Auto) 0.8 % Eosinophils (%) (Auto) 0.2 % Basophils (%) (Auto) 0.0 % Neutrophils # (Auto) 0.0 TH/MM3 Lymphocytes # (Auto) 0.5 TH/MM3 Monocytes # (Auto) 0.0 TH/MM3 Eosinophils # (Auto) 0.0 TH/MM3 Basophils # (Auto) 0.0 TH/MM3 Red Cell Morphology Comment NORMAL Laboratory Tests Test 03/16/17 05:56 Blood Urea Nitrogen 4 MG/DL Creatinine 0.61 MG/DL Random Glucose 97 MG/DL Total Protein 6.6 GM/DL Albumin 2.8 GM/DL Calcium Level 8.7 MG/DL Uric Acid 3.4 MG/DL Alkaline Phosphatase 79 U/L Aspartate Amino Transf (AST/SGOT) 20 U/L Alanine Aminotransferase (ALT/SGPT) 49 U/L Total Bilirubin 0.6 MG/DL Sodium Level 137 MEQ/L Potassium Level 3.5 MEQ/L Chloride Level 101 MEQ/L Carbon Dioxide Level 28.3 MEQ/L Anion Gap 8 MEQ/L Estimat Glomerular Filtration Rate 161 ML/MIN Microbiology Date/Time Source Procedure Growth Status 03/14/17 09:55 Stool Stool - Final NO ENTERIC PATHOGENS DETECTED BY PCR... Complete Imaging Last Impressions Chest X-Ray 03/12/17 0000 Signed Impressions: Service Date/Time: Sunday, March 12, 2017 14:54 - CONCLUSION: No acute cardiopulmonary disease. Garcia Tello MD Abdomen/Pelvis CT 03/12/17 0000 Signed Impressions: Service Date/Time: Sunday, March 12, 2017 22:12 - CONCLUSION: Normal examination. The appendix is normal. Better distention of the gallbladder without obvious calcified stone Enrique Ramos MD Physical Exam CONSTITUTIONAL/GENERAL: This is a morbidly obese patient, in no distress. TUBES/LINES/DRAINS:PORT in place R chest - OK SKIN: No jaundice, rashes, or lesions. Skin temperature appropriate. Not diaphoretic. CARDIOVASCULAR: Regular tachycardia without murmurs, gallops, or rubs. No JVD. Peripheral pulses symmetric. Well perfused perifery RESPIRATORY/CHEST: Symmetric, unlabored respirations. Clear to auscultation. Breath sounds equal bilaterally. No wheezes, rales, or rhonchi. GASTROINTESTINAL: Abdomen soft, mildly tender diffusely , nondistended. Very obese No hepato-splenomegaly, or palpable masses. No guarding. Bowel sounds present. MUSCULOSKELETAL: Extremities without clubbing, cyanosis, or edema. No joint tenderness or effusion noted. No calf tenderness. No mottling or clubbing. NEUROLOGICAL: Awake and alert. Motor and sensory grossly within normal limits. Follows commands. Moves all extremities. PSYCHIATRIC: calm, pleasant Assessment & Plan Remarks Acute myelogeonous leukemia, sp consolidation cycle Febrile neutropenia ? source: PORT, mucositis, GI , C.diff - clx negative - fever resolved with current abx Diarrea- resolved Abd pain - still present, mild Cont broad spectrum abx cefepime, vanco, fluconazole stool for C.diff, if diarrhea recurrs CT A/P with persistent/wotrsening abd pain Alana Daley MD Mar 16, 2017 17:44
[2017-03-16] MEDS: FLUCONAZOLE 100 MG PREMIX BAG 50 ML IV SCH (21:18)
[2017-03-17] VITALS (10 sets, daily range): BP systolic 114–130; BP diastolic 48–68; PULSE 74–88; RESP 14–20; TEMP 98–99.8; O2SAT 96–100
[2017-03-17] MEDS ORDERED: PHARMACY ORDERED LAB ONE (01:45)
[2017-03-17] MEDS: HYDROmorphone HCL PF 1 MG/ML VIAL IV PUSH PRN ×5 (02:29→22:21)
[2017-03-17] MEDS: CEFEPIME INJ 2,000 MG in SODIUM CHLORIDE 0.9% INJ 100 ML IV SCH ×3 (05:03→21:10)
[2017-03-17] MEDS: ONDANSETRON HCL 4 MG/2 ML VIAL IV PUSH PRN ×3 (05:24→18:19)
[2017-03-17 06:00] LABS: HEMATOCRIT 23.8 % (39.0-51.0); MEAN CELL VOLUME 77.2 FL (80.0-100.0); MEAN CORPUSCULAR HEMOGLOBIN 26.6 PG (27.0-34.0); MEAN CORPUSCULAR HGB CONC 34.4 % (32.0-36.0); PLATELET COUNT 49 TH/MM3 (150-450); RED BLOOD COUNT 3.09 MIL/MM3 (4.50-5.90); RED CELL DISTRIBUTION WIDTH 13.8 % (11.6-17.2); WHITE BLOOD COUNT 0.7 TH/MM3 (4.0-11.0)
[2017-03-17 06:13] LABS: ALT (GPT) 73 U/L (12-78); ANION GAP 8 MEQ/L (5-15); AST (GOT) 36 U/L (15-37); BICARBONATE 29.1 MEQ/L (21.0-32.0); BLOOD UREA NITROGEN 6 MG/DL (7-18); CHLORIDE 101 MEQ/L (98-107); GLOMERULAR FILTRATION RATE 145 ML/MIN (>89); POTASSIUM 3.4 MEQ/L (3.5-5.1); SODIUM (NA) 138 MEQ/L (136-145)
[2017-03-17 06:16] LABS: ALKALINE PHOSPHATASE 78 U/L (45-117); TOTAL BILIRUBIN ADULT 0.7 MG/DL (0.2-1.0)
[2017-03-17 06:37] LABS: HEMO FLAGS AUTO DIFF
[2017-03-17 08:03] LABS: BLASTS 7 % (0-0); PLATELET ESTIMATE SMEAR LOW (NORMAL); PLATELET MORPHOLOGY NORMAL (NORMAL); SCAN/DIFF FINAL DIFF MANUAL; WBC DIFF SAMPLE 100
[2017-03-17] MEDS: SUCRALFATE 1 GM/10 ML CUP PO SCH ×4 (09:18→21:10)
[2017-03-17] MEDS: ACYCLOVIR 200 MG CAP PO SCH ×2 (09:18→21:10)
--- NOTE | 2017-03-17 10:09 | PD.ONC.PN ---
Subjective Subjective Remarks Afebrile overnight. Patient resting in bed in nad. yesterday the nurse de-accessed the port as it was not flushing or drawing. Still with anal pain, improved with barrier cream. No fevers or chills. Objective Data Date Time Temp Pulse Resp B/P (MAP) Pulse Ox O2 Delivery O2 Flow Rate FiO2 03/17/17 09:38 100 Room Air 03/17/17 09:33 98.0 76 18 125/60 (81) 99 03/17/17 08:00 87 03/17/17 05:02 98.4 82 14 130/65 (86) 96 03/16/17 22:31 98.4 70 16 125/59 (81) 98 03/16/17 20:10 97.6 85 16 100/66 (77) 100 03/16/17 20:10 79 03/16/17 20:10 Room Air 03/16/17 18:27 98.4 85 21 150/78 (102) 100 03/16/17 17:16 98.3 86 20 158/77 (104) 100 03/16/17 15:45 98.1 81 20 121/73 100 03/16/17 14:46 98.3 72 18 119/66 100 03/16/17 13:35 98.5 83 18 138/69 (92) 99 03/17/17 03/17/17 03/17/17 07:00 15:00 23:00 Intake Total 330 ml Output Total 900 ml Balance -570 ml Result Diagram: 03/17/1730 03/17/17 0530 Laboratory Results Laboratory Tests Test 03/17/17 05:30 White Blood Count 0.7 TH/MM3 Red Blood Count 3.09 MIL/MM3 Hemoglobin 8.2 GM/DL Hematocrit 23.8 % Mean Corpuscular Volume 77.2 FL Mean Corpuscular Hemoglobin 26.6 PG Mean Corpuscular Hemoglobin Concent 34.4 % Red Cell Distribution Width 13.8 % Platelet Count 49 TH/MM3 Mean Platelet Volume 7.6 FL CBC Comment AUTO DIFF Differential Total Cells Counted 100 Lymphocytes % 87 % Monocytes % 6 % Neutrophils # (Manual) 0.0 TH/MM3 Differential Comment FINAL DIFF MANUAL Blastocytes 7 % Platelet Estimate LOW Platelet Morphology Comment NORMAL Blood Urea Nitrogen 6 MG/DL Creatinine 0.67 MG/DL Random Glucose 87 MG/DL Total Protein 6.8 GM/DL Albumin 2.9 GM/DL Calcium Level 8.5 MG/DL Alkaline Phosphatase 78 U/L Aspartate Amino Transf (AST/SGOT) 36 U/L Alanine Aminotransferase (ALT/SGPT) 73 U/L Total Bilirubin 0.7 MG/DL Sodium Level 138 MEQ/L Potassium Level 3.4 MEQ/L Chloride Level 101 MEQ/L Carbon Dioxide Level 29.1 MEQ/L Anion Gap 8 MEQ/L Estimat Glomerular Filtration Rate 145 ML/MIN Administered Medications Medications (Trade) Dose Ordered Sig/Emma Route PRN Reason Start Time Stop Time Status Last Admin Dose Admin Cefepime HCl 2000 mg/Sodium Chloride 100 ml @ 200 mls/hr Q8H IV 03/12/17 20:00 03/17/17 05:03 Sodium Chloride 1,000 ml @ 42 mls/hr [id number] IV 03/12/17 14:30 03/16/17 03:41 Acetaminophen (Tylenol) 650 mg Q4H PRN PO fever>100.4 03/12/17 14:30 03/12/17 15:06 Hydromorphone HCl (Dilaudid Pf Inj) 1 mg Q4H PRN IV PUSH severe breakthrough pain 03/12/17 14:30 03/17/17 06:33 Fluconazole/ Sodium Chloride 50 ml @ 50 mls/hr Q24H IV 03/13/17 21:00 03/16/17 21:18 Acyclovir (Zovirax) 200 mg Q12HR PO 03/15/17 22:15 03/17/17 09:18 Heparin Sodium (Porcine) (Heparin Central Flush) 500 units UNSCH IV FLUSH 03/16/17 10:15 03/16/17 11:16 Oxycodone HCl (Roxicodone) 10 mg Q4H PRN PO PAIN SCALE 1 TO 10 03/16/17 14:15 03/17/17 09:19 Sucralfate (Carafate Liq) 1 gm ACHS PO 03/16/17 17:00 03/17/17 09:18 Ondansetron HCl (Zofran Inj) 4 mg Q6H PRN IV PUSH NAUSEA 03/17/17 05:30 03/17/17 05:24 Objective Remarks GENERAL: Young man, supine in bed resting. SKIN: Warm and dry. HEAD: Normocephalic. EYES: No injection or drainage. NECK: Supple, trachea midline. CARDIOVASCULAR: Regular rate and rhythm RESPIRATORY: Breath sounds equal bilaterally. No accessory muscle use. GASTROINTESTINAL: Abdomen soft, non-tender, nondistended. EXTREMITIES: No cyanosis NEUROLOGICAL: aox3 normal speech. moving all extremities. Assessment/Plan Problem List: (1) Neutropenic sepsis ICD Codes: A41.9 - Sepsis, unspecified organism; D70.9 - Neutropenia, unspecified Plan: --on Cefepime, Diflucan --CT ab/pelvis, 03/12 shows no source --CXR: WNL --u/a: WNL --BC, 03/12: no growth (2) Abdominal pain ICD Codes: R10.9 - Unspecified abdominal pain Plan: --CT ab/pelvis does not elicit source of patient's pain --has had extensive w/u over past several admissions including multiple CT scans , EGD/colonoscopy, MRI, MRCP, HIDA scan --Oxycodone PRN (3) Pancytopenia ICD Codes: D61.818 - Other pancytopenia Plan: --d/t HiDAC --give irradiated CMV negative blood products (4) AML (acute myelogenous leukemia) ICD Codes: C92.00 - Acute myeloblastic leukemia, not having achieved remission Plan: --s/p consolidation chemotherapy with HiDAC 03/02 to 03/07 --diagnosed in January 2017. FLT-3 negative, +inversion 16, carries a favorable risk. --s/p induction chemotherapy with daunorubicin and cytarabine, 7+3 regimen. --> achieved complete remission. (5) Anal irritation ICD Codes: K62.89 - Other specified diseases of anus and rectum Plan: --likely d/t acidic bowel movements. --patient advised to wash after each bowel movement and ask for assistance from nurse to put barrier cream in area. -- Improving (6) port catheter not working Plan: --Will use Cathflo when platelets improved; port is not giving blood return. Assessment 27y/o male with AML in remission, completed cycle 1 consolidation chemotherapy 03/06, now admitted for neutropenic sepsis. Plan 1. continue antibiotics 2. monitor counts 3. once platelet count >50K will try cath-anni for faulty port. may also need dye study Attending Statement The exam, history, and the medical decision-making described in the above note were completed with the assistance of the mid-level provider. I reviewed and agree with the findings presented. I attest that I had a [id number] encounter with the patient on the same day, and personally performed and documented my assessment and findings in the medical record severe neutropenic persists --high risk for life threatening infections on IV antibiotics and anti-fungal neutropenic precautions monitor for infection low threshold to expand antibiotic coverage if spikes a fever no blood products today supportive care d/w rn o/n events reviewed Problem Qualifiers (1) AML (acute myelogenous leukemia): Qualified Codes: C92.01 - Acute myeloblastic leukemia, in remission Fartun Pagan Mar 17, 2017 10:09 Joey Santoyo MD Mar 17, 2017 23:15
[2017-03-17] MEDS: SODIUM CHLOR 0.9% 1000 ML INJ 1,000 ML IV SCH (21:18)
[2017-03-17] MEDS: FLUCONAZOLE 100 MG PREMIX BAG 50 ML IV SCH (22:22)
[2017-03-18] VITALS (9 sets, daily range): BP systolic 102–133; BP diastolic 45–75; PULSE 73–86; RESP 16–20; TEMP 97.9–98.7; O2SAT 79–100
[2017-03-18] MEDS: ONDANSETRON HCL 4 MG/2 ML VIAL IV PUSH PRN ×2 (02:23→23:56)
[2017-03-18] MEDS: HYDROmorphone HCL PF 1 MG/ML VIAL IV PUSH PRN ×5 (02:25→23:56)
[2017-03-18] MEDS: CEFEPIME INJ 2,000 MG in SODIUM CHLORIDE 0.9% INJ 100 ML IV SCH ×3 (04:56→21:23)
[2017-03-18] MEDS: ACYCLOVIR 200 MG CAP PO SCH ×2 (08:34→21:22)
[2017-03-18] MEDS: SUCRALFATE 1 GM/10 ML CUP PO SCH ×4 (08:34→21:22)
[2017-03-18 11:05] LABS: HEMATOCRIT 28.6 % (39.0-51.0); MEAN CORPUSCULAR HGB CONC 33.7 % (32.0-36.0); PLATELET COUNT 150 TH/MM3 (150-450); RED BLOOD COUNT 3.71 MIL/MM3 (4.50-5.90); WHITE BLOOD COUNT 1.2 TH/MM3 (4.0-11.0)
[2017-03-18 11:07] LABS: HEMO FLAGS AUTO DIFF
--- NOTE | 2017-03-18 11:36 | PD.ONC.PN ---
Subjective Subjective Remarks Afebrile overnight. Patient resting in bed. noticed two mouth sores this morning. Tolerating a regular diet. No vomiting. still with abdominal pain, but controlled with oxycodone. Objective Data Date Time Temp Pulse Resp B/P (MAP) Pulse Ox O2 Delivery O2 Flow Rate FiO2 03/18/17 09:13 82 03/18/17 08:46 Room Air 03/18/17 08:31 98.5 75 18 114/75 (88) 99 03/18/17 04:54 98.1 73 16 114/55 (74) 98 03/18/17 01:10 97.9 86 16 133/56 (81) 100 03/17/17 20:30 Room Air 03/17/17 20:30 88 03/17/17 20:30 98.9 85 16 129/53 (78) 100 03/17/17 19:09 99.0 03/17/17 18:22 128/65 (86) 03/17/17 17:52 99.8 03/17/17 17:30 99.5 03/17/17 16:31 98.3 85 18 114/48 (70) 99 03/17/17 11:48 98.4 74 20 126/68 (87) 96 03/18/17 03/18/17 03/18/17 07:00 15:00 23:00 Intake Total 645 ml Output Total 1200 ml Balance -555 ml Result Diagram: 03/18/17 1049 03/17/17 0530 Laboratory Results Laboratory Tests Test 03/18/17 10:49 White Blood Count 1.2 TH/MM3 Red Blood Count 3.71 MIL/MM3 Hemoglobin 9.6 GM/DL Hematocrit 28.6 % Mean Corpuscular Volume 77.0 FL Mean Corpuscular Hemoglobin 26.0 PG Mean Corpuscular Hemoglobin Concent 33.7 % Red Cell Distribution Width 14.0 % Platelet Count 150 TH/MM3 Mean Platelet Volume 7.4 FL CBC Comment AUTO DIFF Administered Medications Medications (Trade) Dose Ordered Sig/Emma Route PRN Reason Start Time Stop Time Status Last Admin Dose Admin Cefepime HCl 2000 mg/Sodium Chloride 100 ml @ 200 mls/hr Q8H IV 03/12/17 20:00 03/18/17 11:29 Sodium Chloride 1,000 ml @ 42 mls/hr [id number] IV 03/12/17 14:30 03/17/17 21:18 Acetaminophen (Tylenol) 650 mg Q4H PRN PO fever>100.4 03/12/17 14:30 03/12/17 15:06 Hydromorphone HCl (Dilaudid Pf Inj) 1 mg Q4H PRN IV PUSH severe breakthrough pain 03/12/17 14:30 03/18/17 06:13 Fluconazole/ Sodium Chloride 50 ml @ 50 mls/hr Q24H IV 03/13/17 21:00 03/17/17 22:22 Acyclovir (Zovirax) 200 mg Q12HR PO 03/15/17 22:15 03/18/17 08:34 Heparin Sodium (Porcine) (Heparin Central Flush) 500 units UNSCH IV FLUSH 03/16/17 10:15 03/16/17 11:16 Oxycodone HCl (Roxicodone) 10 mg Q4H PRN PO PAIN SCALE 1 TO 10 03/16/17 14:15 03/18/17 10:34 Sucralfate (Carafate Liq) 1 gm ACHS PO 03/16/17 17:00 03/18/17 11:29 Ondansetron HCl (Zofran Inj) 4 mg Q6H PRN IV PUSH NAUSEA 03/17/17 05:30 03/18/17 02:23 Objective Remarks GENERAL: Young man, lying in bed resting. SKIN: Warm and dry. HEAD: Normocephalic. EYES: No injection or drainage. NECK: Supple, trachea midline. CARDIOVASCULAR: Regular rate and rhythm RESPIRATORY: Breath sounds equal bilaterally. No accessory muscle use. GASTROINTESTINAL: Abdomen soft, non-tender, nondistended. EXTREMITIES: No cyanosis NEUROLOGICAL: awake and alert, normal speech. moving all extremities. Assessment/Plan Problem List: (1) Neutropenic sepsis ICD Codes: A41.9 - Sepsis, unspecified organism; D70.9 - Neutropenia, unspecified Plan: --on Cefepime, Diflucan --CT ab/pelvis, 03/12 shows no source --CXR: WNL --u/a: WNL --BC, 03/12: no growth (2) Abdominal pain ICD Codes: R10.9 - Unspecified abdominal pain Plan: --CT ab/pelvis does not elicit source of patient's pain --has had extensive w/u over past several admissions including multiple CT scans , EGD/colonoscopy, MRI, MRCP, HIDA scan --Oxycodone PRN (3) Pancytopenia ICD Codes: D61.818 - Other pancytopenia Plan: --d/t HiDAC --give irradiated CMV negative blood products (4) AML (acute myelogenous leukemia) ICD Codes: C92.00 - Acute myeloblastic leukemia, not having achieved remission Plan: --s/p consolidation chemotherapy with HiDAC 03/02 to 03/07 --diagnosed in January 2017. FLT-3 negative, +inversion 16, carries a favorable risk. --s/p induction chemotherapy with daunorubicin and cytarabine, 7+3 regimen. --> achieved complete remission. (5) Anal irritation ICD Codes: K62.89 - Other specified diseases of anus and rectum Plan: --likely d/t acidic bowel movements. --patient advised to wash after each bowel movement and ask for assistance from nurse to put barrier cream in area. -- Improving (6) port catheter not working Plan: --Will use Cathflo when platelets improved; port is not giving blood return. Assessment 27y/o male with AML in remission, completed cycle 1 consolidation chemotherapy 03/06, now admitted for neutropenic sepsis. Plan 1. continue antibiotics 2. give cath-anni for non-functional port. If this is non-effective, will consult IR for dye study. 3. monitor CBC Attending Statement The exam, history, and the medical decision-making described in the above note were completed with the assistance of the mid-level provider. I reviewed and agree with the findings presented. I attest that I had a [id number] encounter with the patient on the same day, and personally performed and documented my assessment and findings in the medical record AML s/p consolidation # 1--CR1 early evidence of count recovery Hb and Platelet count improving WBC 1.2 --still neutropenic hopefully neutrophil recovery soon mild oral mucositis and small ulcer--start magic mouth wash/biotin rinse continue cefepime/acyclovir and Diflucan d/w rn o/n event reviewed Problem Qualifiers (1) AML (acute myelogenous leukemia): Qualified Codes: C92.01 - Acute myeloblastic leukemia, in remission Fartun Pagan Mar 18, 2017 11:36 Joey Santoyo MD Mar 18, 2017 23:02
[2017-03-18 11:37] LABS: ALKALINE PHOSPHATASE 88 U/L (45-117); ALT (GPT) 121 U/L (12-78); ANION GAP 6 MEQ/L (5-15); AST (GOT) 70 U/L (15-37); BICARBONATE 30.9 MEQ/L (21.0-32.0); BLOOD UREA NITROGEN 4 MG/DL (7-18); CHLORIDE 101 MEQ/L (98-107); GLOMERULAR FILTRATION RATE 135 ML/MIN (>89); POTASSIUM 3.4 MEQ/L (3.5-5.1); SODIUM (NA) 138 MEQ/L (136-145); TOTAL BILIRUBIN ADULT 0.7 MG/DL (0.2-1.0)
[2017-03-18] MEDS ORDERED: ALTEPLASE RECOMBINANT 2 MG VIAL INTRACATH PRN (11:45)
[2017-03-18 12:15] LABS: BLASTS 4 % (0-0); CORRECTED NUCLEATED RBC 1 /100 WBC (0-0); WBC DIFF SAMPLE 100
[2017-03-18 12:16] LABS: PLATELET ESTIMATE SMEAR LOW (NORMAL); PLATELET MORPHOLOGY NORMAL (NORMAL); SCAN/DIFF FINAL DIFF MANUAL
[2017-03-18] MEDS: FLUCONAZOLE 100 MG PREMIX BAG 50 ML IV SCH (21:23)
[2017-03-18] MEDS: SODIUM CHLOR 0.9% 1000 ML INJ 1,000 ML IV SCH (21:24)
[2017-03-19] VITALS (10 sets, daily range): BP systolic 114–150; BP diastolic 43–82; PULSE 58–109; RESP 16–20; TEMP 98–98.8; O2SAT 98–100
[2017-03-19] MEDS: HYDROmorphone HCL PF 1 MG/ML VIAL IV PUSH PRN ×3 (03:56→14:19)
[2017-03-19] MEDS: CEFEPIME INJ 2,000 MG in SODIUM CHLORIDE 0.9% INJ 100 ML IV SCH ×3 (04:12→20:42)
[2017-03-19 04:52] LABS: HEMATOCRIT 24.9 % (39.0-51.0); MEAN CELL VOLUME 76.7 FL (80.0-100.0); MEAN CORPUSCULAR HEMOGLOBIN 25.8 PG (27.0-34.0); MEAN CORPUSCULAR HGB CONC 33.6 % (32.0-36.0); PLATELET COUNT 204 TH/MM3 (150-450); RED BLOOD COUNT 3.25 MIL/MM3 (4.50-5.90); RED CELL DISTRIBUTION WIDTH 14.2 % (11.6-17.2); WHITE BLOOD COUNT 1.3 TH/MM3 (4.0-11.0)
[2017-03-19 04:57] LABS: HEMO FLAGS AUTO DIFF
[2017-03-19 05:24] LABS: ANION GAP 5 MEQ/L (5-15); AST (GOT) 46 U/L (15-37); BICARBONATE 31.7 MEQ/L (21.0-32.0); BLOOD UREA NITROGEN 4 MG/DL (7-18); CHLORIDE 100 MEQ/L (98-107); GLOMERULAR FILTRATION RATE 182 ML/MIN (>89); POTASSIUM 3.5 MEQ/L (3.5-5.1); SODIUM (NA) 137 MEQ/L (136-145)
[2017-03-19 05:28] LABS: ALKALINE PHOSPHATASE 78 U/L (45-117); ALT (GPT) 108 U/L (12-78); TOTAL BILIRUBIN ADULT 0.7 MG/DL (0.2-1.0)
[2017-03-19 07:29] LABS: BLASTS 8 % (0-0); METAMYELOCYTES 1 % (0-1); MYELOCYTES 2 % (0-0); NEUTROPHIL # MANUAL DIFF 0.1 TH/MM3 (1.8-7.7); PLATELET ESTIMATE SMEAR NORMAL (NORMAL); POLYS (SEG NEUTROPHILS) 3 % (16-70); SCAN/DIFF FINAL DIFF MANUAL; WBC DIFF SAMPLE 100
[2017-03-19 07:30] LABS: PLATELET MORPHOLOGY NORMAL (NORMAL)
[2017-03-19] MEDS: SUCRALFATE 1 GM/10 ML CUP PO SCH ×4 (08:42→20:42)
[2017-03-19] MEDS: ACYCLOVIR 200 MG CAP PO SCH ×2 (08:42→20:42)
[2017-03-19] MEDS: NYSTAT/DIPHENHY/LIDO MOUTHWASH (Adult) 120ML SWISH-SWAL SCH ×4 (08:42→20:42)
--- NOTE | 2017-03-19 14:38 | PD.ONC.PN ---
Subjective Subjective Remarks Afebrile overnight Pt reports he has had continued anal pain He denies fever/chills Abdominal pain being controlled with oxycodone/Dilaudid. Objective Data Date Time Temp Pulse Resp B/P (MAP) Pulse Ox O2 Delivery O2 Flow Rate FiO2 03/19/17 10:17 Room Air 03/19/17 09:38 67 03/19/17 08:44 98.7 77 20 114/72 (86) 99 03/19/17 07:57 58 03/19/17 05:31 16 03/19/17 04:30 98.6 88 16 120/72 (88) 100 03/19/17 02:32 16 03/19/17 00:30 98.7 85 16 119/43 (68) 98 03/19/17 00:01 78 03/18/17 21:00 Room Air 21 03/18/17 20:02 86 03/18/17 20:00 98.7 79 16 112/49 (70) 79 03/18/17 18:04 126/69 (88) 03/18/17 15:27 98.3 75 20 115/56 (75) 97 03/19/17 03/19/17 03/19/17 07:00 15:00 23:00 Intake Total 858 ml Output Total 1300 ml Balance -442 ml Result Diagram: 03/19/1740903/19/17409 Laboratory Results Laboratory Tests Test 03/19/17 04:10 White Blood Count 1.3 TH/MM3 Red Blood Count 3.25 MIL/MM3 Hemoglobin 8.4 GM/DL Hematocrit 24.9 % Mean Corpuscular Volume 76.7 FL Mean Corpuscular Hemoglobin 25.8 PG Mean Corpuscular Hemoglobin Concent 33.6 % Red Cell Distribution Width 14.2 % Platelet Count 204 TH/MM3 Mean Platelet Volume 7.2 FL CBC Comment AUTO DIFF Differential Total Cells Counted 100 Neutrophils % (Manual) 3 % Lymphocytes % 67 % Monocytes % 19 % Neutrophils # (Manual) 0.1 TH/MM3 Metamyelocytes 1 % Myelocytes 2 % Differential Comment FINAL DIFF MANUAL Blastocytes 8 % Platelet Estimate NORMAL Platelet Morphology Comment NORMAL Blood Urea Nitrogen 4 MG/DL Creatinine 0.55 MG/DL Random Glucose 86 MG/DL Total Protein 6.9 GM/DL Albumin 3.1 GM/DL Calcium Level 8.8 MG/DL Alkaline Phosphatase 78 U/L Aspartate Amino Transf (AST/SGOT) 46 U/L Alanine Aminotransferase (ALT/SGPT) 108 U/L Total Bilirubin 0.7 MG/DL Sodium Level 137 MEQ/L Potassium Level 3.5 MEQ/L Chloride Level 100 MEQ/L Carbon Dioxide Level 31.7 MEQ/L Anion Gap 5 MEQ/L Estimat Glomerular Filtration Rate 182 ML/MIN Administered Medications Medications (Trade) Dose Ordered Sig/Emma Route PRN Reason Start Time Stop Time Status Last Admin Dose Admin Cefepime HCl 2000 mg/Sodium Chloride 100 ml @ 200 mls/hr Q8H IV 03/12/17 20:00 03/19/17 12:53 Sodium Chloride 1,000 ml @ 42 mls/hr [id number] IV 03/12/17 14:30 03/18/17 21:24 Acetaminophen (Tylenol) 650 mg Q4H PRN PO fever>100.4 03/12/17 14:30 03/12/17 15:06 Hydromorphone HCl (Dilaudid Pf Inj) 1 mg Q4H PRN IV PUSH severe breakthrough pain 03/12/17 14:30 03/19/17 14:19 Fluconazole/ Sodium Chloride 50 ml @ 50 mls/hr Q24H IV 03/13/17 21:00 03/18/17 21:23 Acyclovir (Zovirax) 200 mg Q12HR PO 03/15/17 22:15 03/19/17 08:42 Heparin Sodium (Porcine) (Heparin Central Flush) 500 units UNSCH IV FLUSH 03/16/17 10:15 03/16/17 11:16 Oxycodone HCl (Roxicodone) 10 mg Q4H PRN PO PAIN SCALE 1 TO 10 03/16/17 14:15 03/19/17 08:38 Sucralfate (Carafate Liq) 1 gm ACHS PO 03/16/17 17:00 03/19/17 12:53 Ondansetron HCl (Zofran Inj) 4 mg Q6H PRN IV PUSH NAUSEA 03/17/17 05:30 03/18/17 23:56 Alteplase, Recombinant (Cathflo Activase Inj) 2 mg Q2H PRN INTRACATH clotted portacath 03/18/17 11:45 03/18/17 13:28 Multi-Ingredient Mouthwash/Gargle (Magic Mouthwash Adult Liq) 10 ml QID SWISH-SWAL 03/19/17 09:00 03/19/17 12:53 Objective Remarks GENERAL: Young man, lying in bed watching TV in no distress SKIN: Warm and dry. HEAD: Normocephalic. EYES: No injection or drainage. NECK: Supple, trachea midline. CARDIOVASCULAR: Regular rate and rhythm RESPIRATORY: Breath sounds equal bilaterally. No accessory muscle use. GASTROINTESTINAL: Abdomen soft, non-tender, nondistended. EXTREMITIES: No cyanosis NEUROLOGICAL: Awake and alert, normal speech. Moving all extremities. Assessment/Plan Problem List: (1) Neutropenic sepsis ICD Codes: A41.9 - Sepsis, unspecified organism; D70.9 - Neutropenia, unspecified Plan: --on Cefepime, Diflucan --CT ab/pelvis, 03/12 shows no source --CXR: WNL --u/a: WNL --BC, 03/12: no growth (2) Abdominal pain ICD Codes: R10.9 - Unspecified abdominal pain Plan: --CT ab/pelvis does not elicit source of patient's pain --has had extensive w/u over past several admissions including multiple CT scans , EGD/colonoscopy, MRI, MRCP, HIDA scan --Oxycodone PRN (3) Pancytopenia ICD Codes: D61.818 - Other pancytopenia Plan: --d/t HiDAC --give irradiated CMV negative blood products (4) AML (acute myelogenous leukemia) ICD Codes: C92.00 - Acute myeloblastic leukemia, not having achieved remission Plan: --s/p consolidation chemotherapy with HiDAC 03/02 to 03/07 --diagnosed in January 2017. FLT-3 negative, +inversion 16, carries a favorable risk. --s/p induction chemotherapy with daunorubicin and cytarabine, 7+3 regimen. --> achieved complete remission. (5) Anal irritation ICD Codes: K62.89 - Other specified diseases of anus and rectum Plan: --likely d/t acidic bowel movements. --patient advised to wash after each bowel movement and ask for assistance from nurse to put barrier cream in area. -- Improving Assessment 27y/o male with AML in remission, completed cycle 1 consolidation chemotherapy 03/06, now admitted for neutropenic sepsis. Plan 1. Cathflo was successful; no need for port study at this time. 2. Continue IV Abx. When ANC greater than 500 we will plan to discharge patient on po Abx with close followup. 3. Monitor for fevers, monitor CBC. Discussed with RN Attending Statement The exam, history, and the medical decision-making described in the above note were completed with the assistance of the mid-level provider. I reviewed and agree with the findings presented. I attest that I had a [id number] encounter with the patient on the same day, and personally performed and documented my assessment and findings in the medical record AML s/p consolidation # 1--CR1 Still severely neutropenic but few neutrophils have appeared indicating recovery imminent Hb stable. PLT count is normal denies any pain at this time, however the nurse called later on to state that he is asking for Dilaudid patient is exhibiting narcotics seeking behavior. extensive abdominal w/u was sone without any etiology. He has been eating food from outside restaurant despite being told that he is on neutropenic diet and high risk for infections. On rounds he does not apear in pain and was watching a movie on his laptop will minimize IV Dilaudid--dilute in 50cc of saline and slow push may ask palliative care to assist with pain management d/w rn o/n event reviewed Problem Qualifiers (1) AML (acute myelogenous leukemia): Qualified Codes: C92.01 - Acute myeloblastic leukemia, in remission Robina Cui Mar 19, 2017 14:38 Joey Santoyo MD Mar 19, 2017 23:43
[2017-03-19] MEDS ORDERED: HYDROmorphone HCL PF 1 MG/ML VIAL IV ONE (16:45)
[2017-03-19] MEDS: ONDANSETRON HCL 4 MG/2 ML VIAL IV PUSH PRN (18:26)
[2017-03-19] MEDS: FLUCONAZOLE 100 MG PREMIX BAG 50 ML IV SCH (20:42)
[2017-03-19] MEDS: SODIUM CHLOR 0.9% 1000 ML INJ 1,000 ML IV SCH (22:39)
[2017-03-20] VITALS (9 sets, daily range): BP systolic 128–140; BP diastolic 58–80; PULSE 70–94; RESP 16–18; TEMP 98.1–99.3; O2SAT 97–100
[2017-03-20] MEDS: HYDROmorphone HCL PF 1 MG/ML VIAL IV PRN ×2 (00:07→19:55)
[2017-03-20] MEDS: CEFEPIME INJ 2,000 MG in SODIUM CHLORIDE 0.9% INJ 100 ML IV SCH ×2 (04:28→12:14)
[2017-03-20 05:49] LABS: HEMATOCRIT 25.2 % (39.0-51.0); MEAN CELL VOLUME 76.3 FL (80.0-100.0); MEAN CORPUSCULAR HEMOGLOBIN 26.7 PG (27.0-34.0); PLATELET COUNT 344 TH/MM3 (150-450); RED CELL DISTRIBUTION WIDTH 13.9 % (11.6-17.2); WHITE BLOOD COUNT 2.1 TH/MM3 (4.0-11.0)
[2017-03-20 05:53] LABS: ANION GAP 9 MEQ/L (5-15); AST (GOT) 39 U/L (15-37); BICARBONATE 28.8 MEQ/L (21.0-32.0); BLOOD UREA NITROGEN 5 MG/DL (7-18); CHLORIDE 98 MEQ/L (98-107); GLOMERULAR FILTRATION RATE 158 ML/MIN (>89); POTASSIUM 3.5 MEQ/L (3.5-5.1); SODIUM (NA) 136 MEQ/L (136-145)
[2017-03-20 05:54] LABS: ALT (GPT) 99 U/L (12-78)
[2017-03-20 05:57] LABS: ALKALINE PHOSPHATASE 80 U/L (45-117); TOTAL BILIRUBIN ADULT 0.7 MG/DL (0.2-1.0)
[2017-03-20 06:44] LABS: HEMO FLAGS AUTO DIFF
[2017-03-20] MEDS: NYSTAT/DIPHENHY/LIDO MOUTHWASH (Adult) 120ML SWISH-SWAL SCH ×4 (08:38→19:52)
[2017-03-20] MEDS: ACYCLOVIR 200 MG CAP PO SCH ×2 (08:38→19:52)
[2017-03-20] MEDS: SUCRALFATE 1 GM/10 ML CUP PO SCH ×4 (08:38→19:52)
[2017-03-20 08:41] LABS: BANDS 3 % (0-6); BLASTS 2 % (0-0); CORRECTED NUCLEATED RBC 1 /100 WBC (0-0); METAMYELOCYTES 2 % (0-1); MYELOCYTES 2 % (0-0); POLYS (SEG NEUTROPHILS) 16 % (16-70); WBC DIFF SAMPLE 100
[2017-03-20 08:42] LABS: NEUTROPHIL # MANUAL DIFF 0.5 TH/MM3 (1.8-7.7); PLATELET ESTIMATE SMEAR NORMAL (NORMAL); PLATELET MORPHOLOGY NORMAL (NORMAL); SCAN/DIFF FINAL DIFF MANUAL
--- NOTE | 2017-03-20 09:36 | PD.ONC.PN ---
Subjective Subjective Remarks Remains afebrile for several days Pt reports he still has severe anal pain, worse with BM's. Hoping to go home today No other acute complaints Objective Data Date Time Temp Pulse Resp B/P (MAP) Pulse Ox O2 Delivery O2 Flow Rate FiO2 03/20/17 05:31 16 03/20/17 04:29 98.7 84 16 135/59 (84) 98 03/20/17 04:14 75 03/20/17 04:02 70 03/20/17 01:17 16 03/20/17 00:34 81 03/20/17 00:00 98.7 80 16 132/71 (91) 99 Automatic Cuff 03/19/17 20:30 98.0 109 16 150/82 (104) 99 03/19/17 20:17 88 03/19/17 20:15 Room Air 21 03/19/17 16:56 98.8 80 20 122/68 (86) 100 03/19/17 12:00 98.7 75 18 114/68 (83) 98 03/19/17 10:17 Room Air 03/19/17 09:38 67 03/20/17 03/20/17 03/20/17 07:00 15:00 23:00 Intake Total 2522 ml Output Total 900 ml Balance 1622 ml Result Diagram: 03/20/1744003/20/17440 Laboratory Results Laboratory Tests Test 03/20/17 04:41 White Blood Count 2.1 TH/MM3 Red Blood Count 3.30 MIL/MM3 Hemoglobin 8.8 GM/DL Hematocrit 25.2 % Mean Corpuscular Volume 76.3 FL Mean Corpuscular Hemoglobin 26.7 PG Mean Corpuscular Hemoglobin Concent 35.0 % Red Cell Distribution Width 13.9 % Platelet Count 344 TH/MM3 Mean Platelet Volume 7.3 FL CBC Comment AUTO DIFF Differential Total Cells Counted 100 Neutrophils % (Manual) 16 % Band Neutrophils % 3 % Lymphocytes % 54 % Monocytes % 21 % Neutrophils # (Manual) 0.5 TH/MM3 Metamyelocytes 2 % Myelocytes 2 % Nucleated Red Blood Cells 1 /100 WBC Differential Comment FINAL DIFF MANUAL Blastocytes 2 % Platelet Estimate NORMAL Platelet Morphology Comment NORMAL Blood Urea Nitrogen 5 MG/DL Creatinine 0.62 MG/DL Random Glucose 85 MG/DL Total Protein 6.9 GM/DL Albumin 3.1 GM/DL Calcium Level 8.9 MG/DL Alkaline Phosphatase 80 U/L Aspartate Amino Transf (AST/SGOT) 39 U/L Alanine Aminotransferase (ALT/SGPT) 99 U/L Total Bilirubin 0.7 MG/DL Sodium Level 136 MEQ/L Potassium Level 3.5 MEQ/L Chloride Level 98 MEQ/L Carbon Dioxide Level 28.8 MEQ/L Anion Gap 9 MEQ/L Estimat Glomerular Filtration Rate 158 ML/MIN Administered Medications Medications (Trade) Dose Ordered Sig/Emma Route PRN Reason Start Time Stop Time Status Last Admin Dose Admin Cefepime HCl 2000 mg/Sodium Chloride 100 ml @ 200 mls/hr Q8H IV 03/12/17 20:00 03/20/17 04:28 Sodium Chloride 1,000 ml @ 42 mls/hr [id number] IV 03/12/17 14:30 03/19/17 22:39 Acetaminophen (Tylenol) 650 mg Q4H PRN PO fever>100.4 03/12/17 14:30 03/12/17 15:06 Fluconazole/ Sodium Chloride 50 ml @ 50 mls/hr Q24H IV 03/13/17 21:00 03/19/17 20:42 Acyclovir (Zovirax) 200 mg Q12HR PO 03/15/17 22:15 03/20/17 08:38 Sodium Chloride (NS Flush) 5 ml UNSCH PRN IV FLUSH SEE PROTOCOL TABLE 03/16/17 10:15 03/20/17 08:41 Heparin Sodium (Porcine) (Heparin Central Flush) 500 units UNSCH IV FLUSH 03/16/17 10:15 03/16/17 11:16 Oxycodone HCl (Roxicodone) 10 mg Q4H PRN PO PAIN SCALE 1 TO 10 03/16/17 14:15 03/20/17 04:28 Sucralfate (Carafate Liq) 1 gm ACHS PO 03/16/17 17:00 03/20/17 08:38 Ondansetron HCl (Zofran Inj) 4 mg Q6H PRN IV PUSH NAUSEA 03/17/17 05:30 03/19/17 18:26 Alteplase, Recombinant (Cathflo Activase Inj) 2 mg Q2H PRN INTRACATH clotted portacath 03/18/17 11:45 03/18/17 13:28 Multi-Ingredient Mouthwash/Gargle (Magic Mouthwash Adult Liq) 10 ml QID SWISH-SWAL 03/19/17 09:00 03/20/17 08:38 Hydromorphone HCl (Dilaudid Pf Inj) 1 mg Q4H PRN IV severe breakthrough pain 03/19/17 16:45 03/20/17 00:07 Objective Remarks GENERAL: Young man, sitting up in chair at bedside eating breakfast in no acute distress. SKIN: Warm and dry. HEAD: Normocephalic. EYES: No injection or drainage. NECK: Supple, trachea midline. CARDIOVASCULAR: Regular rate and rhythm RESPIRATORY: Breath sounds equal bilaterally. No accessory muscle use. GASTROINTESTINAL: Abdomen soft, non-tender, nondistended. EXTREMITIES: No cyanosis. No edema. NEUROLOGICAL: Awake and alert, normal speech. Moving all extremities. Assessment/Plan Problem List: (1) Neutropenic sepsis ICD Codes: A41.9 - Sepsis, unspecified organism; D70.9 - Neutropenia, unspecified Plan: --on Cefepime, Diflucan, Acyclovir --CT ab/pelvis, 03/12 shows no source --CXR: WNL --u/a: WNL --BC, 03/12: no growth (2) Abdominal pain ICD Codes: R10.9 - Unspecified abdominal pain Plan: --CT ab/pelvis does not elicit source of patient's pain --has had extensive w/u over past several admissions including multiple CT scans , EGD/colonoscopy, MRI, MRCP, HIDA scan --Oxycodone, Dilaudid PRN (3) Pancytopenia ICD Codes: D61.818 - Other pancytopenia Plan: --d/t HiDAC --give irradiated CMV negative blood products (4) AML (acute myelogenous leukemia) ICD Codes: C92.00 - Acute myeloblastic leukemia, not having achieved remission Plan: --s/p consolidation chemotherapy with HiDAC 03/02 to 03/07 --diagnosed in January 2017. FLT-3 negative, +inversion 16, carries a favorable risk. --s/p induction chemotherapy with daunorubicin and cytarabine, 7+3 regimen. --> achieved complete remission. (5) Anal irritation ICD Codes: K62.89 - Other specified diseases of anus and rectum Plan: --likely d/t acidic bowel movements. --patient advised to wash after each bowel movement and ask for assistance from nurse to put barrier cream in area. -- Improving Assessment 27y/o male with AML in remission, completed cycle 1 consolidation chemotherapy 03/06, now admitted for neutropenic sepsis. Plan 1. Add Colace for anal pain with bowel movements 2. ANC 500 today. Plan for discharge soon on po Abx. 3. Once discharged will need close followup as outpatient. Discussed with RN Attending Statement The exam, history, and the medical decision-making described in the above note were completed with the assistance of the mid-level provider. I reviewed and agree with the findings presented. I attest that I had a [id number] encounter with the patient on the same day, and personally performed and documented my assessment and findings in the medical record AML s/p consolidation # 1--CR1 ANC > 500 Platelets up denies any pain stop cefepime stop diflucan home tomorrow if counts stable and no fevers will d/c home with Bactrim DS MWF and Cipro 250mg Tu-THr-Sat, Acyclovir 200mg po BID d/w rn o/n events reviewed Problem Qualifiers (1) AML (acute myelogenous leukemia): Qualified Codes: C92.01 - Acute myeloblastic leukemia, in remission Robina Cui Mar 20, 2017 09:36 Joey Santoyo MD Mar 20, 2017 13:56
[2017-03-20] MEDS: DOCUSATE SODIUM 100 MG CAP PO SCH ×2 (11:21→19:52)
[2017-03-20] MEDS: SODIUM CHLOR 0.9% 1000 ML INJ 1,000 ML IV SCH (11:27)
[2017-03-20] MEDS ORDERED: SODIUM CHLORIDE 0.9% FLUSH 10 ML FLUSH IV FLUSH PRN (20:15)
[2017-03-21] VITALS: BP_SYST 120; BP_SYST 155; BP_DIAS 64; BP_DIAS 71; PULSE 78; PULSE 89; RESP 18; RESP 25; TEMP 97.6; TEMP 98.3; O2SAT 95; O2SAT 98
[2017-03-21 04:00] VITALS: BP 168/76; PULSE 95; RESP 18; TEMP 97.7; O2SAT 97
[2017-03-21 05:26] LABS: HEMATOCRIT 25.2 % (39.0-51.0); MEAN CELL VOLUME 76.9 FL (80.0-100.0); MEAN CORPUSCULAR HEMOGLOBIN 26.6 PG (27.0-34.0); MEAN CORPUSCULAR HGB CONC 34.6 % (32.0-36.0); PLATELET COUNT 449 TH/MM3 (150-450); RED BLOOD COUNT 3.28 MIL/MM3 (4.50-5.90); RED CELL DISTRIBUTION WIDTH 14.2 % (11.6-17.2)
[2017-03-21 05:29] LABS: HEMO FLAGS AUTO DIFF
[2017-03-21 05:37] LABS: ANION GAP 9 MEQ/L (5-15); AST (GOT) 46 U/L (15-37); BICARBONATE 29.3 MEQ/L (21.0-32.0); BLOOD UREA NITROGEN 5 MG/DL (7-18); CHLORIDE 101 MEQ/L (98-107); GLOMERULAR FILTRATION RATE 140 ML/MIN (>89); POTASSIUM 3.5 MEQ/L (3.5-5.1); SODIUM (NA) 139 MEQ/L (136-145)
[2017-03-21 05:39] LABS: ALT (GPT) 101 U/L (12-78)
[2017-03-21 05:40] LABS: ALKALINE PHOSPHATASE 77 U/L (45-117); TOTAL BILIRUBIN ADULT 0.5 MG/DL (0.2-1.0)
[2017-03-21 07:12] LABS: BANDS 8 % (0-6); BLASTS 5 % (0-0); CORRECTED NUCLEATED RBC 1 /100 WBC (0-0); METAMYELOCYTES 3 % (0-1); MYELOCYTES 4 % (0-0); NEUTROPHIL # MANUAL DIFF 0.9 TH/MM3 (1.8-7.7); POLYS (SEG NEUTROPHILS) 16 % (16-70); WBC DIFF SAMPLE 100
[2017-03-21 07:16] LABS: PLATELET ESTIMATE SMEAR NORMAL (NORMAL); PLATELET MORPHOLOGY ENLARGED (NORMAL); SCAN/DIFF FINAL DIFF MANUAL
[2017-03-21 08:46] VITALS: BP 150/74; PULSE 72; RESP 16; TEMP 98.3; O2SAT 99
[2017-03-21] MEDS: NYSTAT/DIPHENHY/LIDO MOUTHWASH (Adult) 120ML SWISH-SWAL SCH ×2 (08:54→13:33)
[2017-03-21] MEDS: ACYCLOVIR 200 MG CAP PO SCH (08:54)
[2017-03-21] MEDS: DOCUSATE SODIUM 100 MG CAP PO SCH (08:54)
[2017-03-21] MEDS: SUCRALFATE 1 GM/10 ML CUP PO SCH ×2 (08:54→13:33)
--- NOTE | 2017-03-21 09:44 | PD.ONC.PN ---
Subjective Subjective Remarks Afebrile overnight Pt resting in bed in no acute distress Hoping to go home "ELAINE" Had some pain with a BM last night Objective Data Date Time Temp Pulse Resp B/P (MAP) Pulse Ox O2 Delivery O2 Flow Rate FiO2 03/21/17 04:00 97.7 95 18 168/76 (106) 97 03/21/17 00:00 98.3 78 18 120/64 (82) 98 03/20/17 20:00 85 03/20/17 20:00 98.7 80 18 139/58 (85) 100 Manual Cuff/Palpation 03/20/17 20:00 100 Room Air 03/20/17 16:35 98.5 86 16 137/68 (91) 100 03/20/17 11:20 99.3 94 16 128/80 (96) 97 03/21/17 03/21/17 03/21/17 07:00 15:00 23:00 Intake Total 480 ml Output Total 1000 ml Balance -520 ml Result Diagram: 03/21/17 0430 03/21/17 0430 Laboratory Results Laboratory Tests Test 03/21/17 04:30 White Blood Count 3.0 TH/MM3 Red Blood Count 3.28 MIL/MM3 Hemoglobin 8.7 GM/DL Hematocrit 25.2 % Mean Corpuscular Volume 76.9 FL Mean Corpuscular Hemoglobin 26.6 PG Mean Corpuscular Hemoglobin Concent 34.6 % Red Cell Distribution Width 14.2 % Platelet Count 449 TH/MM3 Mean Platelet Volume 7.2 FL CBC Comment AUTO DIFF Differential Total Cells Counted 100 Neutrophils % (Manual) 16 % Band Neutrophils % 8 % Lymphocytes % 39 % Monocytes % 25 % Neutrophils # (Manual) 0.9 TH/MM3 Metamyelocytes 3 % Myelocytes 4 % Nucleated Red Blood Cells 1 /100 WBC Differential Comment FINAL DIFF MANUAL Blastocytes 5 % Platelet Estimate NORMAL Platelet Morphology Comment ENLARGED Red Cell Morphology Comment NORMAL Blood Urea Nitrogen 5 MG/DL Creatinine 0.69 MG/DL Random Glucose 93 MG/DL Total Protein 6.7 GM/DL Albumin 3.1 GM/DL Calcium Level 8.8 MG/DL Alkaline Phosphatase 77 U/L Aspartate Amino Transf (AST/SGOT) 46 U/L Alanine Aminotransferase (ALT/SGPT) 101 U/L Total Bilirubin 0.5 MG/DL Sodium Level 139 MEQ/L Potassium Level 3.5 MEQ/L Chloride Level 101 MEQ/L Carbon Dioxide Level 29.3 MEQ/L Anion Gap 9 MEQ/L Estimat Glomerular Filtration Rate 140 ML/MIN Administered Medications Medications (Trade) Dose Ordered Sig/Emma Route PRN Reason Start Time Stop Time Status Last Admin Dose Admin Acetaminophen (Tylenol) 650 mg Q4H PRN PO fever>100.4 03/12/17 14:30 03/12/17 15:06 Acyclovir (Zovirax) 200 mg Q12HR PO 03/15/17 22:15 03/21/17 08:54 Heparin Sodium (Porcine) (Heparin Central Flush) 500 units UNSCH IV FLUSH 03/16/17 10:15 03/21/17 04:42 Oxycodone HCl (Roxicodone) 10 mg Q4H PRN PO PAIN SCALE 1 TO 10 03/16/17 14:15 03/21/17 04:44 Sucralfate (Carafate Liq) 1 gm ACHS PO 03/16/17 17:00 03/21/17 08:54 Ondansetron HCl (Zofran Inj) 4 mg Q6H PRN IV PUSH NAUSEA 03/17/17 05:30 03/19/17 18:26 Alteplase, Recombinant (Cathflo Activase Inj) 2 mg Q2H PRN INTRACATH clotted portacath 03/18/17 11:45 03/18/17 13:28 Multi-Ingredient Mouthwash/Gargle (Magic Mouthwash Adult Liq) 10 ml QID SWISH-SWAL 03/19/17 09:00 03/21/17 08:54 Hydromorphone HCl (Dilaudid Pf Inj) 1 mg Q4H PRN IV severe breakthrough pain 03/19/17 16:45 03/20/17 19:55 Docusate Sodium (Colace) 100 mg BID PO 03/20/17 10:00 03/21/17 08:54 Sodium Chloride (NS Flush) 5 ml UNSCH PRN IV FLUSH SEE PROTOCOL TABLE 03/20/17 20:15 03/21/17 08:55 Objective Remarks GENERAL: Young man, resting in bed in no acute distress. SKIN: Warm and dry. HEAD: Normocephalic. EYES: No injection or drainage. NECK: Supple, trachea midline. CARDIOVASCULAR: Regular rate and rhythm RESPIRATORY: Breath sounds equal bilaterally. No accessory muscle use. GASTROINTESTINAL: Abdomen soft, non-tender, nondistended. EXTREMITIES: No cyanosis. No edema. NEUROLOGICAL: Awake and alert, normal speech. Moving all extremities. Assessment/Plan Problem List: (1) Neutropenic sepsis ICD Codes: A41.9 - Sepsis, unspecified organism; D70.9 - Neutropenia, unspecified Status: Resolved Plan: --on Acyclovir --CT ab/pelvis, 03/12 shows no source --CXR: WNL --u/a: WNL --BC, 03/12: no growth (2) Abdominal pain ICD Codes: R10.9 - Unspecified abdominal pain Plan: --CT ab/pelvis does not elicit source of patient's pain --has had extensive w/u over past several admissions including multiple CT scans , EGD/colonoscopy, MRI, MRCP, HIDA scan --Oxycodone, Dilaudid PRN (3) Pancytopenia ICD Codes: D61.818 - Other pancytopenia Plan: --d/t HiDAC --give irradiated CMV negative blood products (4) AML (acute myelogenous leukemia) ICD Codes: C92.00 - Acute myeloblastic leukemia, not having achieved remission Status: Chronic Plan: --s/p consolidation chemotherapy with HiDAC 03/02 to 03/07 --diagnosed in January 2017. FLT-3 negative, +inversion 16, carries a favorable risk. --s/p induction chemotherapy with daunorubicin and cytarabine, 7+3 regimen. --> achieved complete remission. (5) Anal irritation ICD Codes: K62.89 - Other specified diseases of anus and rectum Plan: --likely d/t acidic bowel movements. --patient advised to wash after each bowel movement and ask for assistance from nurse to put barrier cream in area. -- Improving Assessment 27y/o male with AML in remission, completed cycle 1 consolidation chemotherapy 03/06, now admitted for neutropenic sepsis. Plan 1. OK for discharge today as patient has remained afebrile and counts are noted to be increasing 2. ANC 900 today 3. Will discharge home on alternating Bactrim and Cipro as well as acyclovir 4. He has follow-up appointment with Dr. Santoyo on of this week 5. Plan for next consolidation chemotherapy on 04/05. Discussed with RN Attending Statement The exam, history, and the medical decision-making described in the above note were completed with the assistance of the mid-level provider. I reviewed and agree with the findings presented. I attest that I had a [id number] encounter with the patient on the same day, and personally performed and documented my assessment and findings in the medical record AML s/p consolidation # 1--CR1 doing well ANC 900 d/w home f/w up in clinic on with labs d/w rn o/n events reviewed Problem Qualifiers (1) AML (acute myelogenous leukemia): Qualified Codes: C92.01 - Acute myeloblastic leukemia, in remission Robina Cui Mar 21, 2017 09:44 Joey Santoyo MD Mar 21, 2017 15:58
[2017-03-21] MEDS ORDERED: ACYC200C66 PO (09:49)
[2017-03-21] MEDS ORDERED: CIPR250T52 PO (09:49)
[2017-03-21] MEDS ORDERED: SULF400T18 PO (09:49)
--- NOTE | 2017-03-21 09:50 | HHI.DCPOC ---
Discharge Care Plan Diagnosis: (1) AML (acute myelogenous leukemia) (2) Anal irritation (3) Neutropenic sepsis Your Health Problems Are: Irregular Bowel Function Additional Problems Susceptibility to Infections Goals to Promote Your Health * To prevent worsening of your condition and complications * To maintain your health at the optimal level Directions to Meet Your Goals Take your medications as prescribed Follow your dietary instruction Follow activity as directed Keep your appointments as scheduled Take your immunizations and boosters as scheduled If your symptoms worsen call your PCP, if no PCP go to Urgent Care Center or Emergency Room Smoking is Dangerous to Your Health. Avoid second hand smoke Call the 24-hour hour crisis hotline for domestic abuse at Robina Cui Mar 21, 2017 09:50 Joey Santoyo MD Mar 21, 2017 23:43
--- NOTE | 2017-03-21 09:54 | HHI.DS ---
Discharge Summary Admission Date Mar 12, 2017 at 14:18 Discharge Date: Mar 21, 2017 Admitting Diagnosis Neutropenic fever (1) Neutropenic sepsis Diagnosis: Principal ICD Codes: A41.9 - Sepsis, unspecified organism; D70.9 - Neutropenia, unspecified Status: Resolved (2) AML (acute myelogenous leukemia) Diagnosis: Secondary ICD Codes: C92.00 - Acute myeloblastic leukemia, not having achieved remission Status: Chronic Brief History Patient was diagnosed in January with acute myelogenous leukemia. He underwent induction chemotherapy and was also found to have favorable cytogenetics. He recently completed consolidation chemotherapy #1 and developed neutropenic fever subsequently. He was admitted to the hospital for close observation for fever CBC/BMP: 03/21/17 0430 03/21/17 0430 Significant Findings Laboratory Tests Test 03/18/17 10:49 03/19/17 04:10 03/20/17 04:41 03/21/17 04:30 White Blood Count 1.2 TH/MM3 (4.0-11.0) 1.3 TH/MM3 (4.0-11.0) 2.1 TH/MM3 (4.0-11.0) 3.0 TH/MM3 (4.0-11.0) Red Blood Count 3.71 MIL/MM3 (4.50-5.90) 3.25 MIL/MM3 (4.50-5.90) 3.30 MIL/MM3 (4.50-5.90) 3.28 MIL/MM3 (4.50-5.90) Hemoglobin 9.6 GM/DL (13.0-17.0) 8.4 GM/DL (13.0-17.0) 8.8 GM/DL (13.0-17.0) 8.7 GM/DL (13.0-17.0) Hematocrit 28.6 % (39.0-51.0) 24.9 % (39.0-51.0) 25.2 % (39.0-51.0) 25.2 % (39.0-51.0) Mean Corpuscular Volume 77.0 FL (80.0-100.0) 76.7 FL (80.0-100.0) 76.3 FL (80.0-100.0) 76.9 FL (80.0-100.0) Mean Corpuscular Hemoglobin 26.0 PG (27.0-34.0) 25.8 PG (27.0-34.0) 26.7 PG (27.0-34.0) 26.6 PG (27.0-34.0) Lymphocytes % 93 % (9-44) 67 % (9-44) 54 % (9-44) Neutrophils # (Manual) 0.0 TH/MM3 (1.8-7.7) 0.1 TH/MM3 (1.8-7.7) 0.5 TH/MM3 (1.8-7.7) 0.9 TH/MM3 (1.8-7.7) Nucleated Red Blood Cells 1 /100 WBC (0-0) 1 /100 WBC (0-0) 1 /100 WBC (0-0) Blastocytes 4 % (0-0) 8 % (0-0) 2 % (0-0) 5 % (0-0) Platelet Estimate LOW (NORMAL) Blood Urea Nitrogen 4 MG/DL (7-18) 4 MG/DL (7-18) 5 MG/DL (7-18) 5 MG/DL (7- 18) Aspartate Amino Transf (AST/SGOT) 70 U/L (15-37) 46 U/L (15-37) 39 U/L (15-37) 46 U/L (15-37) Alanine Aminotransferase (ALT/SGPT) 121 U/L (12-78) 108 U/L (12-78) 99 U/L (12-78) 101 U/L (12-78) Potassium Level 3.4 MEQ/L (3.5-5.1) Neutrophils % (Manual) 3 % (16-70) Monocytes % 19 % (0-8) 21 % (0-8) 25 % (0-8) Myelocytes 2 % (0-0) 2 % (0-0) 4 % (0-0) Creatinine 0.55 MG/DL (0.60-1.30) Albumin 3.1 GM/DL (3.4-5.0) 3.1 GM/DL (3.4-5.0) 3.1 GM/DL (3.4-5.0) Metamyelocytes 2 % (0-1) 3 % (0-1) Band Neutrophils % 8 % (0-6) Platelet Morphology Comment ENLARGED (NORMAL) Imaging Last Impressions Chest X-Ray 03/12/17 0000 Signed Impressions: Service Date/Time: Sunday, March 12, 2017 14:54 - CONCLUSION: No acute cardiopulmonary disease. Garcia Tello MD Abdomen/Pelvis CT 03/12/17 0000 Signed Impressions: Service Date/Time: Sunday, March 12, 2017 22:12 - CONCLUSION: Normal examination. The appendix is normal. Better distention of the gallbladder without obvious calcified stone Enrique Rmaos MD PE at Discharge See progress note on 03/21/17 Hospital Course The patient remained neutropenic throughout the hospitalization. Fortunately his cultures remained negative. His counts are slowly improving and we will discharge him today with outpatient follow-up this week Pt Condition on Discharge: Good Discharge Disposition: Discharge Home Discharge Instructions DIET: Follow Instructions for: Low Bacteria Diet Activities you can perform: Regular-No Restrictions Additional Information Keep follow-up appointment with Dr. Santoyo on Robina Cui Mar 21, 2017 09:54
[2017-03-21 13:35] VITALS: BP 137/68; PULSE 71; RESP 16; TEMP 98.6; O2SAT 97
[2017-03-21 16:46] VITALS: BP 121/89; PULSE 85; RESP 16; TEMP 98.6; O2SAT 100
== END 2017-03-21 18:00 | disposition home or self-care (01) | DRG 872 ==
LOC: HCIN 14:18 → HCVI 22:20 → HCIN 03-13 14:40
PROVIDERS: ADMIT Internal Medicine; ATTEND Internal Medicine
PROC: 30253R1 (ICD-10-PCS; principal; 2017-03-12)
PROC: 30253N1 (ICD-10-PCS; 2017-03-12)
DX: A41.9 Sepsis, unspecified organism (principal); D69.59 Other secondary thrombocytopenia; D70.9 Neutropenia, unspecified; C92.01 Acute myeloblastic leukemia, in remission; D64.81 Anemia due to antineoplastic chemotherapy; K92.2 Gastrointestinal hemorrhage, unspecified; R50.81 Fever presenting with conditions classified elsewhere; T45.1X5A Adverse effect of antineoplastic and immunosuppressive drugs, initial encounter; K12.30 Oral mucositis (ulcerative), unspecified
CPT/HCPCS: 36430; 36600; 71010; 74177; 76937; 80053; 80202; 81001; 82248; 82805; 83010; 83605; 83615; 83735; 84100; 84550; 85007; 85027; 85049; 85384; 85610; 85730; 86644; 86850; 86900; 86901; 86920; 87506; 99214; G0463; J0171; J0461; J0692; J1170; J1450; J1642; J2405; J2997; J3370; J7030; J7040; J7050; P9037; P9040; Q9967

== ENCOUNTER 2017-04-05 07:37 | Inpatient (IN) | payer OTHER ==
[~2017-04-05] VITALS: Ht 188 cm; Wt 153.0 kg
[~2017-04-05 07:37] MED LIST changes: -ALLO100 PO
[2017-04-05 08:27] VITALS: BP 141/71; PULSE 85; RESP 20; TEMP 98.2; O2SAT 99
[2017-04-05 10:01] LABS: AUTOMATED NEUTROPHIL # 11.1 TH/MM3 (1.8-7.7); BASOPHIL # 0.1 TH/MM3 (0-0.2); BASOPHIL % 0.8 % (0.0-2.0); EOSINOPHIL % 0.1 % (0.0-4.0); HEMATOCRIT 31.1 % (39.0-51.0); HEMO FLAGS DIFF FINAL; LYMPH % 8.2 % (9.0-44.0); LYMPHOCYTE # 1.2 TH/MM3 (1.0-4.8); MEAN CELL VOLUME 82.4 FL (80.0-100.0); MEAN CORPUSCULAR HEMOGLOBIN 26.2 PG (27.0-34.0); MEAN CORPUSCULAR HGB CONC 31.8 % (32.0-36.0); MONO % 12.6 % (0.0-8.0); NEUT % 78.3 % (16.0-70.0); PLATELET COUNT 377 TH/MM3 (150-450); RED BLOOD COUNT 3.78 MIL/MM3 (4.50-5.90); RED CELL DISTRIBUTION WIDTH 19.5 % (11.6-17.2); WHITE BLOOD COUNT 14.1 TH/MM3 (4.0-11.0)
[2017-04-05 10:27] LABS: ANION GAP 6 MEQ/L (5-15); AST (GOT) 30 U/L (15-37); BICARBONATE 27.3 MEQ/L (21.0-32.0); BLOOD UREA NITROGEN 5 MG/DL (7-18); CHLORIDE 106 MEQ/L (98-107); GLOMERULAR FILTRATION RATE 121 ML/MIN (>89); POTASSIUM 3.6 MEQ/L (3.5-5.1); SODIUM (NA) 139 MEQ/L (136-145); URIC ACID 6.3 MG/DL (2.6-7.2)
[2017-04-05 10:28] LABS: LDH SERUM 159 U/L (87-241)
[2017-04-05 10:34] LABS: ALKALINE PHOSPHATASE 80 U/L (45-117); ALT (GPT) 42 U/L (12-78); TOTAL BILIRUBIN ADULT 0.5 MG/DL (0.2-1.0)
[2017-04-05 11:32] VITALS: BP 134/90; PULSE 81; RESP 20; TEMP 98.3; O2SAT 99
[2017-04-05] MEDS: GRANISETRON INJ 1 MG, DEXAMETHASONE INJ 20 MG in SODIUM CHLORIDE 0.9% INJ 50 ML IV SCH (15:59)
[2017-04-05] MEDS: DEXAMETHASONE SOD PHOS 0.1% OPHT SOLN 5 ML BTL EACH EYE SCH ×3 (16:00→22:30)
[2017-04-05 16:10] VITALS: BP 120/60; PULSE 92; RESP 20; TEMP 98.2; O2SAT 98
[2017-04-05] MEDS: CYTARABINE IV SCH (16:30)
[2017-04-05] MEDS: SODIUM CHLOR 0.9% IV SCH (16:30)
[2017-04-05] MEDS: SODIUM CHLOR 0.9% 1000 ML INJ 1,000 ML IV SCH (16:40)
[2017-04-05 20:00] VITALS: BP 115/57; PULSE 86; RESP 20; TEMP 99.3; O2SAT 96
[2017-04-05] MEDS ORDERED: ONDANSETRON HCL 4 MG/2 ML VIAL IV PUSH ONE (20:45)
[2017-04-05] MEDS ORDERED: PROCHLORPERAZINE MALEATE 10 MG TAB PO PRN (21:00)
[2017-04-05] MEDS ORDERED: ONDANSETRON HCL 4 MG/2 ML VIAL IV PUSH PRN (21:00)
--- NOTE | 2017-04-05 22:38 | MH ---
cc: NOHELIA CHARLES DATE OF ADMISSION 04/05/2017 REASON FOR CONSULTATION Patient with a diagnosis of acute myeloid leukemia who is being admitted for consolidation treatment #2 with high dose cytarabine. CHIEF COMPLAINT "I'm doing well." HISTORY OF PRESENT ILLNESS Mr. Duarte is a 27-year-old male who has a diagnosis of acute myeloid leukemia diagnosed in December 2016. He is in complete remission #1. He had presented with anemia and thrombocytopenia. Further workup including a bone marrow biopsy and flow cytometry revealed a diagnosis of acute myeloid leukemia. He has FLT3 negative leukemia. He was found to have inversion 16 which carries a favorable risk. The patient received induction chemotherapy consisting of daunorubicin and cytarabine in december of 2016. Day 15 bone marrow biopsy revealed absence of leukemia and recovering bone marrow. He subsequently had count recovery. He was discharged home. He was subsequently treated with consolidation treatment #1 with HiDAC. His treatment course has been complicated with neutropenia requiring hospital admission. He is now being admitted to the hospital for consolidation #2 with HiDAC. Overall, he is doing well and does not report any new symptoms. He denies any fevers or chills. No cough or congestion. No abdominal pain. No lower extremity edema or pain. REVIEW OF SYSTEMS A comprehensive 14-point review of systems was completed which is negative except as described in the HPI. PAST MEDICAL HISTORY Acute myeloid leukemia. History of erosive esophagitis. Morbid obesity. PAST SURGICAL HISTORY Bone marrow biopsy x2 in 2016. OUTPATIENT MEDICATIONS 1. Acyclovir 200 milligrams p.o. b.i.d. 2. Oxycodone 10 milligrams p.o. q. 6 hours p.r.n. 3. Pantoprazole 40 milligrams 1 tablet p.o. daily. 4. Bactrim 1 tablet 800/160 Wednesday, Wednesday and Wednesday. 5. Cipro 250 milligrams, one tablet on Wednesday, and Saturdays. ALLERGIES NO KNOWN DRUG ALLERGIES. FAMILY HISTORY Reviewed and it is noncontributory to this admission. 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 He is a part-time student at [employer]. However, due to his illness he has recently withdrawn from college. He denies tobacco abuse. No illicit drug use. He does not consume alcohol. PHYSICAL EXAMINATION VITAL SIGNS: Blood pressure is 121/89, pulse is in the 80s, temperature is 98.6, respiratory rate is 12, O2 sats are 99% on room air. GENERAL: Well-developed, well-nourished obese male in no apparent distress. HEENT: Pupils are equal, round, reactive to light. EOMI. No oral thrush. No oral lesions. NECK: Supple. No JVD. No bruits. No lymphadenopathy. CHEST: Chest is clear to auscultation bilaterally. CARDIAC: S1-S2, regular rate and rhythm. ABDOMEN: Soft, nontender, nondistended. Bowel sounds are present. EXTREMITIES: Without any edema, erythema or cyanosis. SKIN: Without any petechiae, lesion or bruises. NEURO: No focal deficits. PSYCHIATRIC: Mood and affect is appropriate. LABORATORY DATA WBC 14.1, hemoglobin 9.9, MCV is 82.4, platelet count is 377. Serum chemistries show sodium of 139, potassium 3.6, chloride 106, CO2 27.3, anion gap is 6, creatinine is 0.78, GFR is 121, uric acid is 6.3, calcium is 9, phosphorus is 3.5. AST 30, ALT is 42, alk phos is 42. LDH is 159, total protein is 7.3, albumin is 3.1. ASSESSMENT/PLAN 1. This is a 27-year-old male who has a diagnosis of acute myeloid leukemia. He is being admitted to the hospital for consolidation chemotherapy. 2. Acute myeloid leukemia, FLT3 negative disease. The patient has inversion 16 which portends a favorable prognosis. He is currently in complete remission #1. He has undergone induction chemotherapy with daunorubicin and cytarabine in December of 2016 and achieved complete remission. He has completed one cycle of HiDAC chemotherapy ___ which was completed in February of 2017. He was admitted on 03/01/2017 for consolidation #1. He will proceed with consolidation treatment #2 with HiDAC. He will receive treatments on day 1, 3 and 5. We will initiate steroid eye drops. Will monitor daily labs including CBC and CMP. 3. Monitoring for tumor lysis syndrome. Will check daily uric acid and phosphorus levels. 4. Infectious disease prophylaxis: Will continue Bactrim double strength Wednesday, Wednesday and Wednesday, Cipro 250 milligrams Wednesday, and Wednesday. Continue acyclovir 200 milligrams p.o. b.i.d. 5. Gastroesophageal reflux disease: Continue pantoprazole. 6. DVT prophylaxis: Initiate Lovenox subcu q. 40 milligrams daily. 7. He will be closely monitored during the course of his admission. Further recommendations will be made on a daily basis. MD MAJOR Muñiz/KEVIN /9:44 PM /10:07 PM
[2017-04-05 23:30] VITALS: BP 126/59; PULSE 85; RESP 20; TEMP 97.7; O2SAT 99
[2017-04-05 23:35] VITALS: O2SAT 98
[2017-04-06] VITALS (15 sets, daily range): BP systolic 100–156; BP diastolic 44–87; PULSE 62–106; RESP 18–22; TEMP 97.6–98.4; O2SAT 95–100
[2017-04-06] MEDS: ONDANSETRON ODT 4 MG TAB PO PRN ×2 (02:15→16:12)
--- NOTE | 2017-04-06 02:32 | RADRPT ---
EXAM DATE/TIME: 04/06/2017 02:13 [facility] COMPARISON: CT BRAIN W/O CONTRAST, December 25, 2016, 19:50. INDICATIONS : Trauma. Fall. RADIATION DOSE: 69.15 CTDIvol (mGy) MEDICAL HISTORY : Leukemia. SURGICAL HISTORY : None. ENCOUNTER: Initial ACUITY: 1 day PAIN SCALE: 5/10 LOCATION: cranial TECHNIQUE: Multiple contiguous axial images were obtained of the head. Using automated exposure control and adj ustment of the mA and/or kV according to patient size, radiation dose was kept as low as reasonably a chievable to obtain optimal diagnostic quality images. DICOM format image data is available electro nically for review and comparison. FINDINGS: CEREBRUM: The ventricles are normal for age. No evidence of midline shift, mass lesion, hemorrhage or acute in farction. No extra-axial fluid collections are seen. POSTERIOR FOSSA: The cerebellum and brainstem are intact. The 4th ventricle is midline. The cerebellopontine angle i s unremarkable. EXTRACRANIAL: The visualized portion of the orbits is intact. There is minimal mucosal thickening of the right maxi llary sinus. There appears to be soft tissue swelling at the inferior frontal scalp region. SKULL: The calvaria is intact. No evidence of skull fracture. CONCLUSION: No acute intracranial abnormality seen. Audie Burrows MD on April 06, 2017 at 2:28 Board Certified Radiologist. This report was verified electronically.
[2017-04-06 02:56] LABS: AUTOMATED NEUTROPHIL # 17.7 TH/MM3 (1.8-7.7); BASOPHIL # 0.2 TH/MM3 (0-0.2); BASOPHIL % 1.1 % (0.0-2.0); HEMO FLAGS DIFF FINAL; LYMPH % 2.6 % (9.0-44.0); LYMPHOCYTE # 0.5 TH/MM3 (1.0-4.8); MEAN CORPUSCULAR HEMOGLOBIN 26.3 PG (27.0-34.0); MEAN CORPUSCULAR HGB CONC 31.7 % (32.0-36.0); MONO % 1.9 % (0.0-8.0); NEUT % 94.4 % (16.0-70.0); PLATELET COUNT 359 TH/MM3 (150-450); RED BLOOD COUNT 3.97 MIL/MM3 (4.50-5.90); RED CELL DISTRIBUTION WIDTH 19.6 % (11.6-17.2); WHITE BLOOD COUNT 18.7 TH/MM3 (4.0-11.0)
[2017-04-06] MEDS: SODIUM CHLOR 0.9% 1000 ML INJ 1,000 ML IV SCH ×4 (03:20→21:17)
[2017-04-06 03:23] LABS: ANION GAP 6 MEQ/L (5-15); AST (GOT) 17 U/L (15-37); BICARBONATE 26.6 MEQ/L (21.0-32.0); BLOOD UREA NITROGEN 7 MG/DL (7-18); CHLORIDE 105 MEQ/L (98-107); GLOMERULAR FILTRATION RATE 121 ML/MIN (>89); SODIUM (NA) 138 MEQ/L (136-145)
[2017-04-06] MEDS: SODIUM CHLOR 0.9% IV SCH ×2 (03:46→14:15)
[2017-04-06] MEDS: CYTARABINE IV SCH ×2 (03:46→14:15)
[2017-04-06 03:48] LABS: ALKALINE PHOSPHATASE 79 U/L (45-117); ALT (GPT) 46 U/L (12-78); FERRITIN 1305 NG/ML (26-388); TOTAL BILIRUBIN ADULT 0.6 MG/DL (0.2-1.0); TRANSFERRIN IRON PROFILE 171 MG/DL (200-360)
[2017-04-06] MEDS ORDERED: SODIUM CHLOR 0.9% 1000 ML INJ 1,000 ML IV SCH ×2 (04:34→08:34)
--- NOTE | 2017-04-06 08:54 | PD.ONC.PN ---
Subjective Subjective Remarks Afebrile overnight. Patient resting in bed comfortably. Last night, he suddenly got up to go to the bathroom and became dizzy and fell. He had no chest pain or shortness or breath and had no dizziness prior to this incident. He hit the right corner of his eyebrow, and then fall backwards on to his tailbone. He did not sustain any laceration or abrasion. A CT brain obtained after the incident did not show any bleeding in the brain. He feels improved today. His only complaint is a mild headache. He denies nausea or vomiting and no further dizziness. Objective Data Date Time Temp Pulse Resp B/P (MAP) Pulse Ox O2 Delivery O2 Flow Rate FiO2 04/06/17 04:00 62 04/06/17 03:30 98.0 85 20 106/50 (68) 97 04/06/17 02:30 98.4 73 18 109/44 (65) 96 04/06/17 01:30 97.9 78 20 115/55 (75) 98 04/06/17 00:44 20 04/06/17 00:30 97.8 82 20 123/54 (77) 95 04/06/17 00:00 86 04/05/17 23:35 98 21 04/05/17 23:30 97.7 85 20 126/59 (81) 99 04/05/17 20:00 86 04/05/17 20:00 99.3 86 20 115/57 (76) 96 04/05/17 16:10 98.2 92 20 120/60 (80) 98 04/05/17 11:32 98.3 81 20 134/90 (105) 99 04/06/17 04/06/17 04/06/17 07:00 15:00 23:00 Output Total 400 ml Balance -400 ml Result Diagram: 04/06/17 0245 04/06/17 0245 Laboratory Results Laboratory Tests Test 04/05/17 09:40 04/06/17 02:45 White Blood Count 14.1 TH/MM3 18.7 TH/MM3 Red Blood Count 3.78 MIL/MM3 3.97 MIL/MM3 Hemoglobin 9.9 GM/DL 10.4 GM/DL Hematocrit 31.1 % 33.0 % Mean Corpuscular Volume 82.4 FL 83.0 FL Mean Corpuscular Hemoglobin 26.2 PG 26.3 PG Mean Corpuscular Hemoglobin Concent 31.8 % 31.7 % Red Cell Distribution Width 19.5 % 19.6 % Platelet Count 377 TH/MM3 359 TH/MM3 Mean Platelet Volume 7.3 FL 7.6 FL Neutrophils (%) (Auto) 78.3 % 94.4 % Lymphocytes (%) (Auto) 8.2 % 2.6 % Monocytes (%) (Auto) 12.6 % 1.9 % Eosinophils (%) (Auto) 0.1 % 0.0 % Basophils (%) (Auto) 0.8 % 1.1 % Neutrophils # (Auto) 11.1 TH/MM3 17.7 TH/MM3 Lymphocytes # (Auto) 1.2 TH/MM3 0.5 TH/MM3 Monocytes # (Auto) 1.8 TH/MM3 0.4 TH/MM3 Eosinophils # (Auto) 0.0 TH/MM3 0.0 TH/MM3 Basophils # (Auto) 0.1 TH/MM3 0.2 TH/MM3 CBC Comment DIFF FINAL DIFF FINAL Differential Comment Blood Urea Nitrogen 5 MG/DL 7 MG/DL Creatinine 0.78 MG/DL 0.78 MG/DL Random Glucose 88 MG/DL 156 MG/DL Total Protein 7.3 GM/DL 7.3 GM/DL Albumin 3.1 GM/DL 3.1 GM/DL Calcium Level 9.0 MG/DL 8.8 MG/DL Phosphorus Level 3.5 MG/DL Uric Acid 6.3 MG/DL Alkaline Phosphatase 80 U/L 79 U/L Aspartate Amino Transf (AST/SGOT) 30 U/L 17 U/L Alanine Aminotransferase (ALT/SGPT) 42 U/L 46 U/L Lactate Dehydrogenase 159 U/L Total Bilirubin 0.5 MG/DL 0.6 MG/DL Sodium Level 139 MEQ/L 138 MEQ/L Potassium Level 3.6 MEQ/L 4.0 MEQ/L Chloride Level 106 MEQ/L 105 MEQ/L Carbon Dioxide Level 27.3 MEQ/L 26.6 MEQ/L Anion Gap 6 MEQ/L 6 MEQ/L Estimat Glomerular Filtration Rate 121 ML/MIN 121 ML/MIN Iron Level 91 MCG/DL Total Iron Binding Capacity 239 MCG/DL Percent Iron Saturation 38.0 % Ferritin 1305 NG/ML Vitamin B12 Level 439 PG/ML Thyroid Stimulating Hormone 3rd Gen 0.552 uIU/ML Imaging Studies Last [address] 04/06/17 0000 Signed Impressions: Service Date/Time: Thursday, April 06, 2017 02:13 - CONCLUSION: No acute intracranial abnormality seen. Audie Burrows MD Administered Medications Medications (Trade) Dose Ordered Sig/Emma Route PRN Reason Start Time Stop Time Status Last Admin Dose Admin Oxycodone HCl (Roxicodone) 10 mg Q3H PRN PO PAIN SCALE 8 TO 10 04/05/17 08:30 04/06/17 03:52 Dexamethasone Sodium Phosphate (Decadron Opth 0.1% Soln) 2 drop QID EACH EYE 04/05/17 14:30 04/12/17 09:01 04/05/17 22:30 Granisetron HCl 1 mg/Dexamethasone Sodium Phosphate 20 mg/Sodium Chloride 56 ml @ 336 mls/hr DAILY@1530 IV 04/05/17 15:30 04/09/17 15:39 04/05/17 15:59 Sodium Chloride 1,000 ml @ 75 mls/hr [id number] IV 04/05/17 14:00 04/10/17 17:00 04/05/17 16:40 Ondansetron HCl (Zofran Odt) 4 mg Q6H PRN PO nausea 04/05/17 21:00 04/06/17 02:15 Objective Remarks GENERAL: Young man, sitting up in bed in nad. SKIN: Warm and dry. HEAD: Normocephalic. no bruising or abrasion. EYES: No injection or drainage. NECK: Supple, trachea midline. CARDIOVASCULAR: Regular rate and rhythm RESPIRATORY: Breath sounds equal bilaterally. No accessory muscle use. GASTROINTESTINAL: Abdomen soft, non-tender, nondistended. EXTREMITIES: No cyanosis NEUROLOGICAL: No obvious focal deficit. Awake, alert, and oriented x3. PSYCHIATRIC: Appropriate mood and affect; insight and judgment normal. 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 + inversion 16 --monitor daily labs including CBC and CMP. 04/05: admission, received Dose 1A of HiDAC. Dose 1B was held due to fall 04/06: resume chemotherapy. Infectious disease prophylaxis: Will continue Bactrim double strength Wednesday, Wednesday and Wednesday, Cipro 250 milligrams Wednesday, and Wednesday. Continue acyclovir 200 milligrams p.o. b.i.d. Gastroesophageal reflux disease: Continue pantoprazole. DVT prophylaxis: Lovenox subcu q. 40 milligrams daily. (2) Fall ICD Codes: W19.XXXA - Unspecified fall, initial encounter Plan: --likely a vasovagal syncope, will increase fluids, monitor. --CT brain WNL Assessment 27y/o male with a diagnosis of acute myeloid leukemia who is being admitted for consolidation treatment #2 with high dose cytarabine. h/o Acute myeloid leukemia. History of erosive esophagitis. Morbid obesity. Plan 1. resume chemotherapy 2. increase fluids to NS @ 125cc/hr 3. monitor labs Attending Statement The exam, history, and the medical decision-making described in the above note were completed with the assistance of the mid-level provider. I reviewed and agree with the findings presented. I attest that I had a [id number] encounter with the patient on the same day, and personally performed and documented my assessment and findings in the medical record AML favorable risk INV 16--FLT 3 negative Consolidation # 3 Had an episode of dizziness last night and fell--thinks he lost his balance CT head negative for any bleeding EKG reviewed --NSR no laceration or bruises will resume treatment today spoke with pharmacy and will adjust timings of subsequent chemotherapy anemia secondary to chemotherapy--no underlying iron deficiency/b12 or folate deficiency no evidence of hemolysis d/w rn o/n events reviewed Problem Qualifiers (1) Acute myelogenous leukemia: Qualified Codes: C92.01 - Acute myeloblastic leukemia, in remission Fartun Pagan Apr 06, 2017 08:54 Joey Santoyo MD Apr 06, 2017 22:52
[2017-04-06] MEDS: DEXAMETHASONE SOD PHOS 0.1% OPHT SOLN 5 ML BTL EACH EYE SCH ×4 (09:46→21:18)
[2017-04-06] MEDS: ACYCLOVIR 200 MG CAP PO SCH ×2 (09:46→21:17)
[2017-04-06] MEDS: CIPROFLOXACIN 250 MG TAB PO SCH (09:46)
[2017-04-06] MEDS: PANTOPRAZOLE SOD 20 MG DELAYED RELEASE TAB PO SCH (09:46)
[2017-04-06] MEDS ORDERED: INFLUENZA VIRUS VACCINE (QUADRIVALENT) 0.5 ML SYR IM ONE (10:00)
[2017-04-06] MEDS: GRANISETRON INJ 1 MG, DEXAMETHASONE INJ 20 MG in SODIUM CHLORIDE 0.9% INJ 50 ML IV SCH (13:30)
--- NOTE | 2017-04-06 17:08 | EKG ---
Date Performed: 04/06/2017 Time Performed: 03:49:22 PTAGE: 27 years EKG: Sinus rhythm When compared to previous tracing, the patient is no longer Tachycardic. Normal ECG PREVIOUS TRACING : 01/26/2017 11.05 DOCTOR: Sandi Alfonso Interpretating Date/Time 04/06/2017 17:07:45
[2017-04-07] VITALS (11 sets, daily range): BP systolic 115–150; BP diastolic 55–88; PULSE 59–86; RESP 17–20; TEMP 97.4–98.4; O2SAT 97–100
[2017-04-07] MEDS: SODIUM CHLOR 0.9% 1000 ML INJ 1,000 ML IV SCH ×5 (01:30→19:20)
[2017-04-07 05:30] LABS: AUTOMATED NEUTROPHIL # 13.9 TH/MM3 (1.8-7.7); BASOPHIL % 0.2 % (0.0-2.0); HEMATOCRIT 31.6 % (39.0-51.0); HEMO FLAGS DIFF FINAL; LYMPH % 1.3 % (9.0-44.0); LYMPHOCYTE # 0.2 TH/MM3 (1.0-4.8); MEAN CELL VOLUME 82.6 FL (80.0-100.0); MEAN CORPUSCULAR HEMOGLOBIN 26.3 PG (27.0-34.0); MEAN CORPUSCULAR HGB CONC 31.9 % (32.0-36.0); MONO % 3.8 % (0.0-8.0); NEUT % 94.7 % (16.0-70.0); PLATELET COUNT 303 TH/MM3 (150-450); RED BLOOD COUNT 3.82 MIL/MM3 (4.50-5.90); RED CELL DISTRIBUTION WIDTH 19.2 % (11.6-17.2); WHITE BLOOD COUNT 14.7 TH/MM3 (4.0-11.0)
[2017-04-07 05:50] LABS: ALT (GPT) 35 U/L (12-78); ANION GAP 6 MEQ/L (5-15); AST (GOT) 16 U/L (15-37); BICARBONATE 28.6 MEQ/L (21.0-32.0); BLOOD UREA NITROGEN 10 MG/DL (7-18); CHLORIDE 104 MEQ/L (98-107); GLOMERULAR FILTRATION RATE 161 ML/MIN (>89); LDH SERUM 117 U/L (87-241); MAGNESIUM 2.3 MG/DL (1.5-2.5); SODIUM (NA) 139 MEQ/L (136-145)
[2017-04-07 05:52] LABS: ALKALINE PHOSPHATASE 64 U/L (45-117); TOTAL BILIRUBIN ADULT 0.4 MG/DL (0.2-1.0)
[2017-04-07] MEDS: PANTOPRAZOLE SOD 20 MG DELAYED RELEASE TAB PO SCH (09:25)
[2017-04-07] MEDS: DEXAMETHASONE SOD PHOS 0.1% OPHT SOLN 5 ML BTL EACH EYE SCH ×4 (09:25→20:15)
[2017-04-07] MEDS: ACYCLOVIR 200 MG CAP PO SCH ×2 (09:25→20:15)
[2017-04-07] MEDS: SULFAMETHOXAZOLE-TRIMETHOPRIM DS 800-160 MG TAB PO SCH (09:25)
--- NOTE | 2017-04-07 09:31 | PD.ONC.PN ---
Subjective Subjective Remarks Afebrile overnight. Patient resting in bed in nad. No complaints. Tolerating chemotherapy. Denies dizziness. Objective Data Date Time Temp Pulse Resp B/P (MAP) Pulse Ox O2 Delivery O2 Flow Rate FiO2 04/07/17 09:14 97.8 61 20 123/63 (83) 100 04/07/17 08:01 59 04/07/17 05:10 97.5 64 17 117/55 (75) 99 04/07/17 04:56 59 04/07/17 00:38 97.4 68 18 119/69 (86) 97 04/07/17 00:01 70 04/06/17 22:18 18 04/06/17 21:16 98.2 106 22 141/87 (105) 99 04/06/17 20:40 74 04/06/17 17:19 72 18 100/60 (73) 95 04/06/17 16:14 98.4 89 18 156/80 (105) 99 04/06/17 13:48 145/79 (101) 04/06/17 13:47 147/77 (100) 04/06/17 13:33 97.6 78 18 127/60 (82) 100 04/07/17 04/07/17 04/07/17 07:00 15:00 23:00 Intake Total 480 ml Output Total 1700 ml 650 ml Balance -1220 ml -650 ml Result Diagram: 04/07/1716 04/07/17 0516 Laboratory Results Laboratory Tests Test 04/07/17 05:16 White Blood Count 14.7 TH/MM3 Red Blood Count 3.82 MIL/MM3 Hemoglobin 10.1 GM/DL Hematocrit 31.6 % Mean Corpuscular Volume 82.6 FL Mean Corpuscular Hemoglobin 26.3 PG Mean Corpuscular Hemoglobin Concent 31.9 % Red Cell Distribution Width 19.2 % Platelet Count 303 TH/MM3 Mean Platelet Volume 7.5 FL Neutrophils (%) (Auto) 94.7 % Lymphocytes (%) (Auto) 1.3 % Monocytes (%) (Auto) 3.8 % Eosinophils (%) (Auto) 0.0 % Basophils (%) (Auto) 0.2 % Neutrophils # (Auto) 13.9 TH/MM3 Lymphocytes # (Auto) 0.2 TH/MM3 Monocytes # (Auto) 0.6 TH/MM3 Eosinophils # (Auto) 0.0 TH/MM3 Basophils # (Auto) 0.0 TH/MM3 CBC Comment DIFF FINAL Differential Comment Blood Urea Nitrogen 10 MG/DL Creatinine 0.61 MG/DL Random Glucose 132 MG/DL Total Protein 7.0 GM/DL Albumin 3.0 GM/DL Calcium Level 8.7 MG/DL Phosphorus Level 4.2 MG/DL Magnesium Level 2.3 MG/DL Uric Acid 6.0 MG/DL Alkaline Phosphatase 64 U/L Aspartate Amino Transf (AST/SGOT) 16 U/L Alanine Aminotransferase (ALT/SGPT) 35 U/L Lactate Dehydrogenase 117 U/L Total Bilirubin 0.4 MG/DL Sodium Level 139 MEQ/L Potassium Level 4.0 MEQ/L Chloride Level 104 MEQ/L Carbon Dioxide Level 28.6 MEQ/L Anion Gap 6 MEQ/L Estimat Glomerular Filtration Rate 161 ML/MIN Administered Medications Medications (Trade) Dose Ordered Sig/Emma Route PRN Reason Start Time Stop Time Status Last Admin Dose Admin Oxycodone HCl (Roxicodone) 10 mg Q3H PRN PO PAIN SCALE 8 TO 10 04/05/17 08:30 04/06/17 21:18 Dexamethasone Sodium Phosphate (Decadron Opth 0.1% Soln) 2 drop QID EACH EYE 04/05/17 14:30 04/12/17 09:01 04/07/17 09:25 Sodium Chloride 1,000 ml @ 75 mls/hr [id number] IV 04/05/17 14:00 04/10/17 17:00 04/05/17 16:40 Ondansetron HCl (Zofran Odt) 4 mg Q6H PRN PO nausea 04/05/17 21:00 04/06/17 16:12 Pantoprazole Sodium (Protonix) 20 mg DAILY PO 04/06/17 09:00 04/07/17 09:25 Trimethoprim/ Sulfamethoxazole (Bactrim Ds 800-160 Mg) 1 tab MoWeFr@09 PO 04/07/17 09:00 04/07/17 09:25 Ciprofloxacin (Cipro) 250 mg SuTuThSa PO 04/06/17 09:00 04/06/17 09:46 Acyclovir (Zovirax) 200 mg Q12HR PO 04/06/17 09:00 04/07/17 09:25 Sodium Chloride 1,000 ml @ 125 mls/hr Q8H IV 04/06/17 09:30 04/07/17 09:19 Objective Remarks GENERAL: Young man, sitting up in bed in nad. SKIN: Warm and dry. HEAD: Normocephalic. EYES: No injection or drainage. NECK: Supple, trachea midline. CARDIOVASCULAR: Regular rate and rhythm RESPIRATORY: Breath sounds equal bilaterally. No accessory muscle use. GASTROINTESTINAL: Abdomen soft, non-tender, nondistended. EXTREMITIES: No cyanosis NEUROLOGICAL: awake and alert, normal speech. moving all extremities. 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 + inversion 16 --monitor daily labs including CBC and CMP. 04/05: admission, received Dose 1A of HiDAC. Dose 1B was held due to fall 04/06: resume chemotherapy. 04/07: off day. Infectious disease prophylaxis: Will continue Bactrim double strength Wednesday, Wednesday and Wednesday, Cipro 250 milligrams Wednesday, and Wednesday. Continue acyclovir 200 milligrams p.o. b.i.d. Gastroesophageal reflux disease: Continue pantoprazole. DVT prophylaxis: Lovenox subcu q. 40 milligrams daily. (2) Fall ICD Codes: W19.XXXA - Unspecified fall, initial encounter Status: Resolved Plan: --likely a vasovagal syncope, will increase fluids, monitor. --CT brain WNL Assessment 27y/o male with a diagnosis of acute myeloid leukemia who is being admitted for consolidation treatment #2 with high dose cytarabine. h/o Acute myeloid leukemia. History of erosive esophagitis. Morbid obesity. Plan 1. continue chemotherapy 2. monitor CBC, CMP Attending Statement The exam, history, and the medical decision-making described in the above note were completed with the assistance of the mid-level provider. I reviewed and agree with the findings presented. I attest that I had a [id number] encounter with the patient on the same day, and personally performed and documented my assessment and findings in the medical record AML consolidation # 2 tolerating treatment labs reviewed PT consult continue treatment d/w rn o/n events reviewed Problem Qualifiers (1) Acute myelogenous leukemia: Qualified Codes: C92.01 - Acute myeloblastic leukemia, in remission Fartun Pagan Apr 07, 2017 09:31 Joey Santoyo MD Apr 07, 2017 23:15
[2017-04-08] VITALS (10 sets, daily range): BP systolic 100–149; BP diastolic 42–99; PULSE 56–86; RESP 18–21; TEMP 97.5–98.1; O2SAT 97–99
[2017-04-08] MEDS: SODIUM CHLOR 0.9% 1000 ML INJ 1,000 ML IV SCH ×5 (00:56→21:57)
[2017-04-08] MEDS: GRANISETRON INJ 1 MG, DEXAMETHASONE INJ 20 MG in SODIUM CHLORIDE 0.9% INJ 50 ML IV SCH (01:31)
[2017-04-08] MEDS ORDERED: SODIUM CHLOR 0.9% IV SCH ×2 (02:00→14:00)
[2017-04-08] MEDS ORDERED: CYTARABINE IV SCH ×2 (02:00→14:00)
[2017-04-08 06:58] LABS: AUTOMATED NEUTROPHIL # 7.9 TH/MM3 (1.8-7.7); BASOPHIL % 0.1 % (0.0-2.0); HEMATOCRIT 29.5 % (39.0-51.0); HEMO FLAGS DIFF FINAL; LYMPH % 1.6 % (9.0-44.0); LYMPHOCYTE # 0.1 TH/MM3 (1.0-4.8); MEAN CELL VOLUME 82.9 FL (80.0-100.0); MEAN CORPUSCULAR HEMOGLOBIN 27.7 PG (27.0-34.0); MEAN CORPUSCULAR HGB CONC 33.4 % (32.0-36.0); MONO % 1.1 % (0.0-8.0); NEUT % 97.2 % (16.0-70.0); PLATELET COUNT 244 TH/MM3 (150-450); RED BLOOD COUNT 3.56 MIL/MM3 (4.50-5.90); RED CELL DISTRIBUTION WIDTH 19.2 % (11.6-17.2); WHITE BLOOD COUNT 8.1 TH/MM3 (4.0-11.0)
[2017-04-08 07:13] LABS: ALT (GPT) 34 U/L (12-78); ANION GAP 7 MEQ/L (5-15); AST (GOT) 21 U/L (15-37); BICARBONATE 24.8 MEQ/L (21.0-32.0); BLOOD UREA NITROGEN 13 MG/DL (7-18); CHLORIDE 106 MEQ/L (98-107); GLOMERULAR FILTRATION RATE 167 ML/MIN (>89); SODIUM (NA) 138 MEQ/L (136-145)
[2017-04-08 07:15] LABS: ALKALINE PHOSPHATASE 61 U/L (45-117); TOTAL BILIRUBIN ADULT 0.4 MG/DL (0.2-1.0)
[2017-04-08] MEDS: PANTOPRAZOLE SOD 20 MG DELAYED RELEASE TAB PO SCH (08:53)
[2017-04-08] MEDS: CIPROFLOXACIN 250 MG TAB PO SCH (08:53)
[2017-04-08] MEDS: ACYCLOVIR 200 MG CAP PO SCH ×2 (08:53→21:00)
[2017-04-08] MEDS: DEXAMETHASONE SOD PHOS 0.1% OPHT SOLN 5 ML BTL EACH EYE SCH ×4 (08:54→21:00)
--- NOTE | 2017-04-08 09:08 | PD.ONC.PN ---
Subjective Subjective Remarks Afebrile overnight Had some back pain from the fall but no longer has abdominal pain Denies dizziness No other acute complaints Started day 2a of chemo at 2am; tolerating well Objective Data Date Time Temp Pulse Resp B/P (MAP) Pulse Ox O2 Delivery O2 Flow Rate FiO2 04/08/17 08:55 97.6 86 18 127/70 (89) 99 04/08/17 05:34 97.6 74 18 116/46 (69) 99 04/08/17 04:05 64 04/08/17 00:55 97.5 71 18 100/44 (62) 98 04/08/17 00:04 83 04/07/17 21:15 16 04/07/17 20:20 97.5 71 20 115/62 (79) 99 04/07/17 20:16 66 04/07/17 17:20 97.8 04/07/17 16:17 70 18 126/88 (101) 100 04/07/17 11:55 98.4 86 20 150/69 (96) 100 04/07/17 09:14 97.8 61 20 123/63 (83) 100 04/08/17 04/08/17 04/08/17 07:00 15:00 23:00 Intake Total 56 ml Output Total 600 ml Balance -544 ml Result Diagram: 04/08/1746 04/08/1746 Laboratory Results Laboratory Tests Test 04/08/17 05:46 White Blood Count 8.1 TH/MM3 Red Blood Count 3.56 MIL/MM3 Hemoglobin 9.9 GM/DL Hematocrit 29.5 % Mean Corpuscular Volume 82.9 FL Mean Corpuscular Hemoglobin 27.7 PG Mean Corpuscular Hemoglobin Concent 33.4 % Red Cell Distribution Width 19.2 % Platelet Count 244 TH/MM3 Mean Platelet Volume 8.1 FL Neutrophils (%) (Auto) 97.2 % Lymphocytes (%) (Auto) 1.6 % Monocytes (%) (Auto) 1.1 % Eosinophils (%) (Auto) 0.0 % Basophils (%) (Auto) 0.1 % Neutrophils # (Auto) 7.9 TH/MM3 Lymphocytes # (Auto) 0.1 TH/MM3 Monocytes # (Auto) 0.1 TH/MM3 Eosinophils # (Auto) 0.0 TH/MM3 Basophils # (Auto) 0.0 TH/MM3 CBC Comment DIFF FINAL Differential Comment Blood Urea Nitrogen 13 MG/DL Creatinine 0.59 MG/DL Random Glucose 124 MG/DL Total Protein 6.5 GM/DL Albumin 2.9 GM/DL Calcium Level 8.3 MG/DL Alkaline Phosphatase 61 U/L Aspartate Amino Transf (AST/SGOT) 21 U/L Alanine Aminotransferase (ALT/SGPT) 34 U/L Total Bilirubin 0.4 MG/DL Sodium Level 138 MEQ/L Potassium Level 4.0 MEQ/L Chloride Level 106 MEQ/L Carbon Dioxide Level 24.8 MEQ/L Anion Gap 7 MEQ/L Estimat Glomerular Filtration Rate 167 ML/MIN Administered Medications Medications (Trade) Dose Ordered Sig/Emma Route PRN Reason Start Time Stop Time Status Last Admin Dose Admin Oxycodone HCl (Roxicodone) 10 mg Q3H PRN PO PAIN SCALE 8 TO 10 04/05/17 08:30 04/07/17 20:16 Dexamethasone Sodium Phosphate (Decadron Opth 0.1% Soln) 2 drop QID EACH EYE 04/05/17 14:30 04/12/17 09:01 04/08/17 08:54 Sodium Chloride 1,000 ml @ 75 mls/hr [id number] IV 04/05/17 14:00 04/10/17 17:00 04/05/17 16:40 Ondansetron HCl (Zofran Odt) 4 mg Q6H PRN PO nausea 04/05/17 21:00 04/06/17 16:12 Pantoprazole Sodium (Protonix) 20 mg DAILY PO 04/06/17 09:00 04/08/17 08:53 Trimethoprim/ Sulfamethoxazole (Bactrim Ds 800-160 Mg) 1 tab MoWeFr@09 PO 04/07/17 09:00 04/07/17 09:25 Ciprofloxacin (Cipro) 250 mg SuTuThSa PO 04/06/17 09:00 04/08/17 08:53 Acyclovir (Zovirax) 200 mg Q12HR PO 04/06/17 09:00 04/08/17 08:53 Sodium Chloride 1,000 ml @ 125 mls/hr Q8H IV 04/06/17 09:30 04/08/17 00:56 Granisetron HCl 1 mg/Dexamethasone Sodium Phosphate 20 mg/Sodium Chloride 56 ml @ 336 mls/hr DAILY@0130 IV 04/08/17 01:30 04/10/17 01:39 04/08/17 01:31 Objective Remarks GENERAL: Obese younger male, resting in bed in no distress. SKIN: Warm and dry. HEAD: Normocephalic. EYES: No scleral icterus. No injection or drainage. NECK: Supple, trachea midline. No JVD or lymphadenopathy. CARDIOVASCULAR: Regular rate and rhythm without murmurs. RESPIRATORY: Clear anteriorly. Breathing unlabored. GASTROINTESTINAL: Abdomen soft, non-tender, nondistended. EXTREMITIES: No cyanosis, or edema. MUSCULOSKELETAL: Adequate muscle tone. NEUROLOGICAL: No obvious focal deficit. Awake, alert, and oriented x3. 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 + inversion 16 --monitor daily labs including CBC and CMP. 04/05: admission, received Dose 1A of HiDAC. Dose 1B was held due to fall 04/06: resume chemotherapy. 04/07: off day. 04/08 Dose 2a given early this am; dose 2b due at 2pm. Infectious disease prophylaxis: Will continue Bactrim double strength Wednesday, Wednesday and Wednesday, Cipro 250 milligrams Wednesday, and Wednesday. Continue acyclovir 200 milligrams p.o. b.i.d. Gastroesophageal reflux disease: Continue pantoprazole. DVT prophylaxis: Lovenox subcu q. 40 milligrams daily. (2) Fall ICD Codes: W19.XXXA - Unspecified fall, initial encounter Status: Resolved Plan: --likely a vasovagal syncope, will increase fluids, monitor. --CT brain WNL Assessment 27y/o male with a diagnosis of acute myeloid leukemia who is being admitted for consolidation treatment #2 with high dose cytarabine. h/o Acute myeloid leukemia. History of erosive esophagitis. Morbid obesity. Plan 1. Pt tolerating chemotherapy; dose 2B planned for 2pm today. 2. Discharge will be planned for this weekend 3. Tomorrow will be "off day" and last dose will be given on Wednesday. 4. Monitor CBC, CMP, Mag, Phos Attending Statement The exam, history, and the medical decision-making described in the above note were completed with the assistance of the mid-level provider. I reviewed and agree with the findings presented. I attest that I had a [id number] encounter with the patient on the same day, and personally performed and documented my assessment and findings in the medical record AML consolidation # 2 for favorable risk leukemia tolerating treatment without any major side-effects monitor daily labs as above monitor electrolytes d/w rn o/n events reviewed Problem Qualifiers (1) Acute myelogenous leukemia: Qualified Codes: C92.01 - Acute myeloblastic leukemia, in remission Robina Cui Apr 08, 2017 09:08 Joey Santoyo MD Apr 08, 2017 22:52
[2017-04-08] MEDS: ONDANSETRON ODT 4 MG TAB PO PRN (12:58)
[2017-04-09] VITALS (9 sets, daily range): BP systolic 111–129; BP diastolic 44–62; PULSE 56–82; RESP 18–20; TEMP 97.6–98.6; O2SAT 96–100
[2017-04-09] MEDS: GRANISETRON INJ 1 MG, DEXAMETHASONE INJ 20 MG in SODIUM CHLORIDE 0.9% INJ 50 ML IV SCH (01:30)
[2017-04-09] MEDS: SODIUM CHLOR 0.9% 1000 ML INJ 1,000 ML IV SCH ×4 (01:30→21:22)
[2017-04-09 06:52] LABS: ANION GAP 6 MEQ/L (5-15); BICARBONATE 28.1 MEQ/L (21.0-32.0); BLOOD UREA NITROGEN 15 MG/DL (7-18); CHLORIDE 106 MEQ/L (98-107); GLOMERULAR FILTRATION RATE 150 ML/MIN (>89); MAGNESIUM 2.2 MG/DL (1.5-2.5); POTASSIUM 3.6 MEQ/L (3.5-5.1); SODIUM (NA) 140 MEQ/L (136-145)
[2017-04-09 06:53] LABS: ALT (GPT) 49 U/L (12-78); AST (GOT) 34 U/L (15-37)
[2017-04-09 06:55] LABS: ALKALINE PHOSPHATASE 57 U/L (45-117); TOTAL BILIRUBIN ADULT 0.4 MG/DL (0.2-1.0)
[2017-04-09 06:56] LABS: AUTOMATED NEUTROPHIL # 8.9 TH/MM3 (1.8-7.7); BASOPHIL % 0.1 % (0.0-2.0); HEMATOCRIT 27.4 % (39.0-51.0); HEMO FLAGS DIFF FINAL; LYMPHOCYTE # 0.3 TH/MM3 (1.0-4.8); MEAN CELL VOLUME 82.5 FL (80.0-100.0); MEAN CORPUSCULAR HEMOGLOBIN 27.5 PG (27.0-34.0); MEAN CORPUSCULAR HGB CONC 33.3 % (32.0-36.0); MONO % 0.7 % (0.0-8.0); NEUT % 96.2 % (16.0-70.0); PLATELET COUNT 196 TH/MM3 (150-450); RED BLOOD COUNT 3.32 MIL/MM3 (4.50-5.90); RED CELL DISTRIBUTION WIDTH 18.9 % (11.6-17.2); WHITE BLOOD COUNT 9.2 TH/MM3 (4.0-11.0)
[2017-04-09] MEDS: PANTOPRAZOLE SOD 20 MG DELAYED RELEASE TAB PO SCH (09:33)
[2017-04-09] MEDS: ACYCLOVIR 200 MG CAP PO SCH ×2 (09:33→21:21)
[2017-04-09] MEDS: DEXAMETHASONE SOD PHOS 0.1% OPHT SOLN 5 ML BTL EACH EYE SCH ×4 (09:33→21:21)
[2017-04-09] MEDS: SULFAMETHOXAZOLE-TRIMETHOPRIM DS 800-160 MG TAB PO SCH (09:33)
--- NOTE | 2017-04-09 12:42 | PD.ONC.PN ---
Subjective Subjective Remarks Afebrile In great spirits Tolerating chemotherapy; off day today No acute complaints Objective Data Date Time Temp Pulse Resp B/P (MAP) Pulse Ox O2 Delivery O2 Flow Rate FiO2 04/09/17 11:54 98.0 80 20 127/60 (82) 96 04/09/17 09:36 97.7 75 20 129/57 (81) 98 04/09/17 07:46 56 04/09/17 05:21 97.7 82 18 113/51 (71) 97 04/09/17 04:19 63 04/09/17 00:55 60 04/09/17 00:52 97.6 62 18 111/44 (66) 98 04/08/17 22:00 16 04/08/17 20:57 97.8 56 21 110/50 (70) 97 04/08/17 20:09 65 04/08/17 17:03 98.1 62 18 119/42 (67) 98 04/08/17 12:42 98.1 75 18 149/99 (116) 99 04/09/17 04/09/17 04/09/17 07:00 15:00 23:00 Intake Total 1375 ml Output Total 1300 ml Balance 75 ml Result Diagram: 04/09/17 0537 04/09/17 0537 Laboratory Results Laboratory Tests Test 04/09/17 05:37 White Blood Count 9.2 TH/MM3 Red Blood Count 3.32 MIL/MM3 Hemoglobin 9.1 GM/DL Hematocrit 27.4 % Mean Corpuscular Volume 82.5 FL Mean Corpuscular Hemoglobin 27.5 PG Mean Corpuscular Hemoglobin Concent 33.3 % Red Cell Distribution Width 18.9 % Platelet Count 196 TH/MM3 Mean Platelet Volume 8.0 FL Neutrophils (%) (Auto) 96.2 % Lymphocytes (%) (Auto) 3.0 % Monocytes (%) (Auto) 0.7 % Eosinophils (%) (Auto) 0.0 % Basophils (%) (Auto) 0.1 % Neutrophils # (Auto) 8.9 TH/MM3 Lymphocytes # (Auto) 0.3 TH/MM3 Monocytes # (Auto) 0.1 TH/MM3 Eosinophils # (Auto) 0.0 TH/MM3 Basophils # (Auto) 0.0 TH/MM3 CBC Comment DIFF FINAL Differential Comment Blood Urea Nitrogen 15 MG/DL Creatinine 0.65 MG/DL Random Glucose 105 MG/DL Total Protein 6.2 GM/DL Albumin 2.8 GM/DL Calcium Level 8.1 MG/DL Phosphorus Level 3.5 MG/DL Magnesium Level 2.2 MG/DL Alkaline Phosphatase 57 U/L Aspartate Amino Transf (AST/SGOT) 34 U/L Alanine Aminotransferase (ALT/SGPT) 49 U/L Total Bilirubin 0.4 MG/DL Sodium Level 140 MEQ/L Potassium Level 3.6 MEQ/L Chloride Level 106 MEQ/L Carbon Dioxide Level 28.1 MEQ/L Anion Gap 6 MEQ/L Estimat Glomerular Filtration Rate 150 ML/MIN Administered Medications Medications (Trade) Dose Ordered Sig/Emma Route PRN Reason Start Time Stop Time Status Last Admin Dose Admin Oxycodone HCl (Roxicodone) 10 mg Q3H PRN PO PAIN SCALE 8 TO 10 04/05/17 08:30 04/08/17 21:00 Dexamethasone Sodium Phosphate (Decadron Opth 0.1% Soln) 2 drop QID EACH EYE 04/05/17 14:30 04/12/17 09:01 04/09/17 12:17 Sodium Chloride 1,000 ml @ 75 mls/hr [id number] IV 04/05/17 14:00 04/10/17 17:00 04/08/17 08:40 Ondansetron HCl (Zofran Odt) 4 mg Q6H PRN PO nausea 04/05/17 21:00 04/08/17 12:58 Pantoprazole Sodium (Protonix) 20 mg DAILY PO 04/06/17 09:00 04/09/17 09:33 Trimethoprim/ Sulfamethoxazole (Bactrim Ds 800-160 Mg) 1 tab MoWeFr@09 PO 04/07/17 09:00 04/09/17 09:33 Ciprofloxacin (Cipro) 250 mg SuTuThSa PO 04/06/17 09:00 04/08/17 08:53 Acyclovir (Zovirax) 200 mg Q12HR PO 04/06/17 09:00 04/09/17 09:33 Sodium Chloride 1,000 ml @ 125 mls/hr Q8H IV 04/06/17 09:30 04/09/17 09:47 Granisetron HCl 1 mg/Dexamethasone Sodium Phosphate 20 mg/Sodium Chloride 56 ml @ 336 mls/hr DAILY@0130 IV 04/08/17 01:30 04/10/17 01:39 04/08/17 01:31 Objective Remarks GENERAL: Obese younger male, sitting up in chair at bedside in no acute distress SKIN: Warm and dry. HEAD: Normocephalic. EYES: No scleral icterus. No injection or drainage. NECK: Supple, trachea midline. No JVD or lymphadenopathy. CARDIOVASCULAR: Regular rate and rhythm without murmurs. RESPIRATORY: Clear anteriorly. Breathing unlabored. GASTROINTESTINAL: Abdomen soft, non-tender, nondistended. EXTREMITIES: No cyanosis, or edema. MUSCULOSKELETAL: Adequate muscle tone. NEUROLOGICAL: No obvious focal deficit. Awake, alert, and oriented x3. 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 + inversion 16 --monitor daily labs including CBC and CMP. 04/05: admission, received Dose 1A of HiDAC. Dose 1B was held due to fall 04/06: resume chemotherapy. 04/07: off day. 04/08 Dose 2a given early this am; dose 2b due at 2pm. 04/09: Off day Infectious disease prophylaxis: Will continue Bactrim double strength Wednesday, Wednesday and Wednesday, Cipro 250 milligrams Wednesday, and Wednesday. Continue acyclovir 200 milligrams p.o. b.i.d. Gastroesophageal reflux disease: Continue pantoprazole. DVT prophylaxis: Lovenox subcu q. 40 milligrams daily. (2) Fall ICD Codes: W19.XXXA - Unspecified fall, initial encounter Status: Resolved Plan: --likely a vasovagal syncope, will increase fluids, monitor. --CT brain WNL Assessment 27y/o male with a diagnosis of acute myeloid leukemia who is being admitted for consolidation treatment #2 with high dose cytarabine. h/o Acute myeloid leukemia. History of erosive esophagitis. Morbid obesity. Plan 1. Pt tolerating chemotherapy; dose 3a scheduled for 2 AM 2. Discharge will be planned for Wednesday after chemotherapy 3. Monitor CBC, CMP Attending Statement The exam, history, and the medical decision-making described in the above note were completed with the assistance of the mid-level provider. I reviewed and agree with the findings presented. I attest that I had a [id number] encounter with the patient on the same day, and personally performed and documented my assessment and findings in the medical record AML consolidation # 2 getting HiDAC Will finish treatment tomorrow d/c home after treatment f/u in clinic on CBC and CMP on Wednesday d/w rn o/n events reviewed Problem Qualifiers (1) Acute myelogenous leukemia: Qualified Codes: C92.01 - Acute myeloblastic leukemia, in remission Robina Cui Apr 09, 2017 12:42 Joey Santoyo MD Apr 09, 2017 21:31
[2017-04-09] MEDS: ONDANSETRON ODT 4 MG TAB PO PRN ×2 (16:43→21:21)
[2017-04-10 00:23] VITALS: BP 135/55; PULSE 63; RESP 18; TEMP 97.8; O2SAT 97
[2017-04-10] MEDS: GRANISETRON INJ 1 MG, DEXAMETHASONE INJ 20 MG in SODIUM CHLORIDE 0.9% INJ 50 ML IV SCH (00:27)
[2017-04-10] MEDS: SODIUM CHLOR 0.9% 1000 ML INJ 1,000 ML IV SCH ×3 (00:40→14:53)
[2017-04-10] MEDS ORDERED: SODIUM CHLOR 0.9% IV SCH ×2 (02:00→14:00)
[2017-04-10] MEDS ORDERED: CYTARABINE IV SCH ×2 (02:00→14:00)
[2017-04-10 05:02] VITALS: BP 109/58; PULSE 63; RESP 18; TEMP 97.6; O2SAT 96
[2017-04-10] MEDS: ONDANSETRON ODT 4 MG TAB PO PRN (05:41)
[2017-04-10 05:58] LABS: BASOPHIL % 0.1 % (0.0-2.0); HEMATOCRIT 28.8 % (39.0-51.0); HEMO FLAGS DIFF FINAL; LYMPH % 2.5 % (9.0-44.0); LYMPHOCYTE # 0.1 TH/MM3 (1.0-4.8); MEAN CELL VOLUME 82.1 FL (80.0-100.0); MEAN CORPUSCULAR HEMOGLOBIN 27.2 PG (27.0-34.0); MEAN CORPUSCULAR HGB CONC 33.1 % (32.0-36.0); MONO % 0.2 % (0.0-8.0); NEUT % 97.2 % (16.0-70.0); PLATELET COUNT 159 TH/MM3 (150-450); RED BLOOD COUNT 3.51 MIL/MM3 (4.50-5.90); RED CELL DISTRIBUTION WIDTH 18.3 % (11.6-17.2); WHITE BLOOD COUNT 5.1 TH/MM3 (4.0-11.0)
[2017-04-10 06:28] LABS: ALKALINE PHOSPHATASE 61 U/L (45-117); ALT (GPT) 75 U/L (12-78); ANION GAP 8 MEQ/L (5-15); AST (GOT) 43 U/L (15-37); BICARBONATE 26.4 MEQ/L (21.0-32.0); BLOOD UREA NITROGEN 13 MG/DL (7-18); CHLORIDE 105 MEQ/L (98-107); GLOMERULAR FILTRATION RATE 178 ML/MIN (>89); POTASSIUM 4.4 MEQ/L (3.5-5.1); SODIUM (NA) 139 MEQ/L (136-145); TOTAL BILIRUBIN ADULT 0.6 MG/DL (0.2-1.0)
[2017-04-10 08:28] VITALS: BP 123/63; PULSE 72; RESP 12; TEMP 98.2; O2SAT 98
[2017-04-10] MEDS: PANTOPRAZOLE SOD 20 MG DELAYED RELEASE TAB PO SCH (08:31)
[2017-04-10] MEDS: ACYCLOVIR 200 MG CAP PO SCH (08:31)
[2017-04-10] MEDS: CIPROFLOXACIN 250 MG TAB PO SCH (08:31)
[2017-04-10] MEDS: DEXAMETHASONE SOD PHOS 0.1% OPHT SOLN 5 ML BTL EACH EYE SCH ×2 (08:31→14:34)
--- NOTE | 2017-04-10 08:48 | PD.ONC.PN ---
Subjective Subjective Remarks Afebrile Excited to finish chemotherapy and go home today Asking when his follow-up appointment will be Reports he feels great and offers no acute complaints Objective Data Date Time Temp Pulse Resp B/P (MAP) Pulse Ox O2 Delivery O2 Flow Rate FiO2 04/10/17 08:28 98.2 72 12 123/63 (83) 98 04/10/17 05:02 97.6 63 18 109/58 (75) 96 04/10/17 00:23 97.8 63 18 135/55 (81) 97 04/09/17 21:21 98.6 63 20 112/50 (70) 100 04/09/17 16:46 98.4 80 20 123/62 (82) 98 04/09/17 11:54 98.0 80 20 127/60 (82) 96 04/09/17 09:36 97.7 75 20 129/57 (81) 98 04/10/17 04/10/17 04/10/17 07:00 15:00 23:00 Output Total 1250 ml Balance -1250 ml Result Diagram: 04/10/17 0520 04/10/17 0520 Laboratory Results Laboratory Tests Test 04/10/17 05:20 White Blood Count 5.1 TH/MM3 Red Blood Count 3.51 MIL/MM3 Hemoglobin 9.5 GM/DL Hematocrit 28.8 % Mean Corpuscular Volume 82.1 FL Mean Corpuscular Hemoglobin 27.2 PG Mean Corpuscular Hemoglobin Concent 33.1 % Red Cell Distribution Width 18.3 % Platelet Count 159 TH/MM3 Mean Platelet Volume 7.7 FL Neutrophils (%) (Auto) 97.2 % Lymphocytes (%) (Auto) 2.5 % Monocytes (%) (Auto) 0.2 % Eosinophils (%) (Auto) 0.0 % Basophils (%) (Auto) 0.1 % Neutrophils # (Auto) 5.0 TH/MM3 Lymphocytes # (Auto) 0.1 TH/MM3 Monocytes # (Auto) 0.0 TH/MM3 Eosinophils # (Auto) 0.0 TH/MM3 Basophils # (Auto) 0.0 TH/MM3 CBC Comment DIFF FINAL Differential Comment Blood Urea Nitrogen 13 MG/DL Creatinine 0.56 MG/DL Random Glucose 108 MG/DL Total Protein 6.5 GM/DL Albumin 3.0 GM/DL Calcium Level 8.5 MG/DL Alkaline Phosphatase 61 U/L Aspartate Amino Transf (AST/SGOT) 43 U/L Alanine Aminotransferase (ALT/SGPT) 75 U/L Total Bilirubin 0.6 MG/DL Sodium Level 139 MEQ/L Potassium Level 4.4 MEQ/L Chloride Level 105 MEQ/L Carbon Dioxide Level 26.4 MEQ/L Anion Gap 8 MEQ/L Estimat Glomerular Filtration Rate 178 ML/MIN Administered Medications Medications (Trade) Dose Ordered Sig/Emma Route PRN Reason Start Time Stop Time Status Last Admin Dose Admin Oxycodone HCl (Roxicodone) 10 mg Q3H PRN PO PAIN SCALE 8 TO 10 04/05/17 08:30 04/10/17 05:41 Dexamethasone Sodium Phosphate (Decadron Opth 0.1% Soln) 2 drop QID EACH EYE 04/05/17 14:30 04/12/17 09:01 04/09/17 21:21 Sodium Chloride 1,000 ml @ 75 mls/hr [id number] IV 04/05/17 14:00 04/10/17 17:00 04/08/17 08:40 Ondansetron HCl (Zofran Odt) 4 mg Q6H PRN PO nausea 04/05/17 21:00 04/10/17 05:41 Pantoprazole Sodium (Protonix) 20 mg DAILY PO 04/06/17 09:00 04/09/17 09:33 Trimethoprim/ Sulfamethoxazole (Bactrim Ds 800-160 Mg) 1 tab MoWeFr@09 PO 04/07/17 09:00 04/09/17 09:33 Ciprofloxacin (Cipro) 250 mg SuTuThSa PO 04/06/17 09:00 04/08/17 08:53 Acyclovir (Zovirax) 200 mg Q12HR PO 04/06/17 09:00 04/09/17 21:21 Sodium Chloride 1,000 ml @ 125 mls/hr Q8H IV 04/06/17 09:30 04/10/17 01:18 Objective Remarks GENERAL: Obese younger male, sitting up in chair at bedside in no acute distress SKIN: Warm and dry. HEAD: Normocephalic. EYES: No scleral icterus. No injection or drainage. NECK: Supple, trachea midline. No JVD or lymphadenopathy. CARDIOVASCULAR: Regular rate and rhythm without murmurs. RESPIRATORY: Clear anteriorly. Breathing unlabored. GASTROINTESTINAL: Abdomen soft, non-tender, nondistended. EXTREMITIES: No cyanosis, or edema. MUSCULOSKELETAL: Adequate muscle tone. NEUROLOGICAL: No obvious focal deficit. Awake, alert, and oriented x3. 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 + inversion 16 --monitor daily labs including CBC and CMP. 04/05: admission, received Dose 1A of HiDAC. Dose 1B was held due to fall 04/06: resume chemotherapy. 04/07: off day. 04/08 Dose 2a given early this am; dose 2b due at 2pm. 04/09: Off day 04/10: Dose 3a given 1am; dose 3b due at 1pm Infectious disease prophylaxis: Will continue Bactrim double strength Wednesday, Wednesday and Wednesday, Cipro 250 milligrams Wednesday, and Wednesday. Continue acyclovir 200 milligrams p.o. b.i.d. Gastroesophageal reflux disease: Continue pantoprazole. DVT prophylaxis: Lovenox subcu q. 40 milligrams daily. (2) Fall ICD Codes: W19.XXXA - Unspecified fall, initial encounter Status: Resolved Plan: --likely a vasovagal syncope, will increase fluids, monitor. --CT brain WNL Assessment 27y/o male with a diagnosis of acute myeloid leukemia who is being admitted for consolidation treatment #2 with high dose cytarabine. h/o Acute myeloid leukemia. History of erosive esophagitis. Morbid obesity. Plan 1. Pt tolerating chemotherapy; last dose scheduled for 1 PM today 2. Okay for discharge once chemotherapy is complete later this afternoon 3. Will have him check labs in office on Wednesday, then followup with Dr Santoyo on at 2:30p Attending Statement The exam, history, and the medical decision-making described in the above note were completed with the assistance of the mid-level provider. I reviewed and agree with the findings presented. I attest that I had a [id number] encounter with the patient on the same day, and personally performed and documented my assessment and findings in the medical record. Tolerating chemotherapy. Will complete chemo this afternoon. Continue to monitor for toxicity. If stable after chemotherapy, will d/c. F/u oncology clinic to monitor CBC. Problem Qualifiers (1) Acute myelogenous leukemia: Qualified Codes: C92.01 - Acute myeloblastic leukemia, in remission Robina Cui Apr 10, 2017 08:48 Tyree Burch MD Apr 10, 2017 15:10
--- NOTE | 2017-04-10 12:08 | HHI.DCPOC ---
Discharge Care Plan Goals to Promote Your Health * To prevent worsening of your condition and complications * To maintain your health at the optimal level Directions to Meet Your Goals Take your medications as prescribed Follow your dietary instruction Follow activity as directed Keep your appointments as scheduled Take your immunizations and boosters as scheduled If your symptoms worsen call your PCP, if no PCP go to Urgent Care Center or Emergency Room Smoking is Dangerous to Your Health. Avoid second hand smoke Call the 24-hour hour crisis hotline for domestic abuse at Robina Cui Apr 10, 2017 12:08
--- NOTE | 2017-04-10 12:13 | HHI.DCPOC ---
Discharge Care Plan Diagnosis: (1) AML (acute myelogenous leukemia) Additional Problems No acute problems at time of discharge Goals to Promote Your Health * To prevent worsening of your condition and complications * To maintain your health at the optimal level Directions to Meet Your Goals Take your medications as prescribed Follow your dietary instruction Follow activity as directed Keep your appointments as scheduled Take your immunizations and boosters as scheduled If your symptoms worsen call your PCP, if no PCP go to Urgent Care Center or Emergency Room Smoking is Dangerous to Your Health. Avoid second hand smoke Call the 24-hour hour crisis hotline for domestic abuse at Robina Cui Apr 10, 2017 12:13
--- NOTE | 2017-04-10 12:15 | HHI.DS ---
Discharge Summary Admission Date Apr 05, 2017 at 07:37 Discharge Date: Apr 10, 2017 Admitting Diagnosis Admitted for cycle #2 consolidation chemo (1) AML (acute myelogenous leukemia) Diagnosis: Principal ICD Codes: C92.00 - Acute myeloblastic leukemia, not having achieved remission Status: Chronic Brief History Pt was admitted in December and was diagnosed with AML; he had induction chemo at that time. He has returned to the hospital this admission for consolidation #2. The pt has good cytogenetics in regards to his AML CBC/BMP: 04/10/17 0520 04/10/17 0520 Significant Findings Laboratory Tests Test 04/08/17 05:46 04/09/17 05:37 04/10/17 05:20 Red Blood Count 3.56 MIL/MM3 (4.50-5.90) 3.32 MIL/MM3 (4.50-5.90) 3.51 MIL/MM3 (4.50-5.90) Hemoglobin 9.9 GM/DL (13.0-17.0) 9.1 GM/DL (13.0-17.0) 9.5 GM/DL (13.0-17.0) Hematocrit 29.5 % (39.0-51.0) 27.4 % (39.0-51.0) 28.8 % (39.0-51.0) Red Cell Distribution Width 19.2 % (11.6-17.2) 18.9 % (11.6-17.2) 18.3 % (11.6-17.2) Neutrophils (%) (Auto) 97.2 % (16.0-70.0) 96.2 % (16.0-70.0) 97.2 % (16.0-70.0) Lymphocytes (%) (Auto) 1.6 % (9.0-44.0) 3.0 % (9.0-44.0) 2.5 % (9.0-44.0) Neutrophils # (Auto) 7.9 TH/MM3 (1.8-7.7) 8.9 TH/MM3 (1.8-7.7) Lymphocytes # (Auto) 0.1 TH/MM3 (1.0-4.8) 0.3 TH/MM3 (1.0-4.8) 0.1 TH/MM3 (1.0-4.8) Creatinine 0.59 MG/DL (0.60-1.30) 0.56 MG/DL (0.60-1.30) Random Glucose 124 MG/DL (74-106) 108 MG/DL (74-106) Albumin 2.9 GM/DL (3.4-5.0) 2.8 GM/DL (3.4-5.0) 3.0 GM/DL (3.4-5.0) Calcium Level 8.3 MG/DL (8.5-10.1) 8.1 MG/DL (8.5-10.1) Total Protein 6.2 GM/DL (6.4-8.2) Aspartate Amino Transf (AST/SGOT) 43 U/L (15-37) PE at Discharge See progress note dated 04/10/17 Hospital Course 04/05: admission, received Dose 1A of HiDAC. Dose 1B was held due to fall 04/06: resume chemotherapy. 04/07: off day. 04/08 Dose 2a given early this am; dose 2b due at 2pm. 04/09: Off day 04/10: Dose 3a given 1am; dose 3b due at 1pm Pt Condition on Discharge: Good Discharge Disposition: Discharge Home Discharge Instructions DIET: Follow Instructions for: As Tolerated, No Restrictions Activities you can perform: Regular-No Restrictions Additional Information Labs in clinic on Wednesday; See Dr Santoyo on Robina Cui Apr 10, 2017 12:15
[2017-04-10] MEDS ORDERED: GRANISETRON INJ 1 MG, DEXAMETHASONE INJ 20 MG in SODIUM CHLORIDE 0.9% INJ 50 ML IV ONE (13:30)
[2017-04-10 14:24] VITALS: BP 118/44; PULSE 77; RESP 12; TEMP 98.2; O2SAT 100
== END 2017-04-10 19:20 | disposition home or self-care (01) | DRG 838 ==
LOC: HCIN 07:37 → OBSVTOIN 07:37 → HCIN 04-08 11:44
PROVIDERS: ADMIT Internal Medicine; ATTEND Internal Medicine
PROC: XW033B3 Introduction of Cytarabine and Daunorubicin Liposome Antineoplastic into Peripheral Vein, Percutaneous Approach, New Technology Group 3 (ICD-10-PCS; principal; 2017-04-05)
DX: Z51.11 Encounter for antineoplastic chemotherapy (principal); C92.01 Acute myeloblastic leukemia, in remission; Z68.41 Body mass index [BMI] 40.0-44.9, adult; E66.01 Morbid (severe) obesity due to excess calories; K21.9 Gastro-esophageal reflux disease without esophagitis; R55 Syncope and collapse; M54.9 Dorsalgia, unspecified; W19.XXXA Unspecified fall, initial encounter; Y92.230 Patient room in hospital as the place of occurrence of the external cause
CPT/HCPCS: 70450; 80053; 82607; 82728; 82747; 83540; 83550; 83615; 83735; 84100; 84443; 84550; 85025; 93005; J1100; J1626; J2405; J7030; J7050; J9100

== ENCOUNTER 2017-04-18 08:09 | Inpatient (IN) | payer OTHER ==
[2017-04-18] VITALS (8 sets, daily range): BP systolic 93–140; BP diastolic 52–78; PULSE 67–85; RESP 16–18; TEMP 98.2–98.6; O2SAT 94–100
[~2017-04-18] VITALS: Ht 188 cm; Wt 156.2 kg
[2017-04-18] MEDS ORDERED: [UNRECOGNIZED DRUG - CODE] IV (08:32)
--- NOTE | 2017-04-18 08:48 | PD ---
HPI Chief Complaint: Pain: Acute or Chronic Time Seen by Provider: 08:29 Travel History International Travel<30 days: No Contact w/Intl Traveler<30days: No Traveled to known affect area: No History of Present Illness HPI This patient complains of diffuse pain all over. He says he gets this after chemotherapy for AML. He had it one week ago. He skipped his oncology appointment 2 days ago. He denies fever today. He has developed some lesions in his mouth. No active bleeding. Severity is moderate. Duration 3 days. No alleviating factors. Symptoms exacerbated by chemotherapy PFSH Past Medical History Autoimmune Disease: No Anxiety: Yes Depression: Yes Cancer: Yes (AML (Acute Myelogenous Leukemia), Thrombocytopenia, Lymphocytosis) Cardiovascular Problems: No Chemotherapy: Yes Cerebrovascular Accident: No Diabetes: No Diminished Hearing: No Endocrine: No Gastrointestinal Disorders: Yes GERD: Yes Genitourinary: No Headaches: No Immune Disorder: Yes (AML (Acute Myelogenous Leukemia), Thrombocytopenia, Lymphocytosis) Implanted Vascular Access Dvce: Yes Musculoskeletal: No Neurologic: No Psychiatric: Yes Reproductive: No Respiratory: No Immunizations Current: Yes Migraines: Yes Radiation Therapy: No Seizures: No Thyroid Disease: No Ulcer: Yes Tetanus Vaccination: < 5 Years Influenza Vaccination: Yes Past Surgical History AICD: No Arteriovenous Shunt: No Insulin Pump: No Joint Replacement: No Oral Surgery: Yes (WISDOM TEETH REMOVAL) Pacemaker: No Other Surgery: Yes (Tefayc-f-Atxn placement) Social History Alcohol Use: Yes (SOCIAL) Tobacco Use: No Substance Use: Yes (CANNABIS) Allergies-Medications (Allergen,Severity, Reaction): Coded Allergies: No Known Allergies (Verified Allergy, Unknown, 04/18/17) Reported Meds & Prescriptions Reported Meds & Active Scripts Active Klonopin (Clonazepam) 0.5 Mg Tab 0.5 Mg PO HS Endocet (Oxycodone-Acetaminophen) 10-325 mg Tab 1 Tab PO Q6HR Sucralfate Liq (Sucralfate) 1 Gram/10 Ml Erin 1 Gm PO ACHS 30 Days Reported Cytarabine 2 G/20 ml Vial (Cytarabine/Pf) 2 Gram/20 Ml (100 Mg/Ml) Vial 1 Injection IV MONTHLY Review of Systems General / Constitutional: No: Fever Eyes: No: Visual changes HENT: No: Headaches Cardiovascular: No: Chest Pain or Discomfort Respiratory: No: Shortness of Breath Gastrointestinal: No: Abdominal Pain Genitourinary: No: Dysuria Musculoskeletal: Positive: Myalgias, Pain Skin: No Rash Neurologic: No: Weakness Psychiatric: No: Depression Endocrine: No: Polydipsia Hematologic/Lymphatic: No: Easy Bruising Physical Exam Narrative GENERAL: Well-nourished, well-developed patient in no apparent distress. SKIN: Focused skin assessment reveals no rash and nodules. Skin is Warm and dry. HEAD: Atraumatic. Normocephalic. EYES: Pupils equal and round. No scleral icterus. No injection or drainage. ENT: No nasal bleeding or discharge. Mucous membranes pink and moist. He has blood filled blister lesions on the buccal mucosa. No active bleeding. NECK: Trachea midline. No JVD. CARDIOVASCULAR: Regular rate and rhythm. No murmur appreciated. RESPIRATORY: No accessory muscle use. Clear to auscultation. Breath sounds equal bilaterally. GASTROINTESTINAL: Abdomen soft, non-tender, morbidly obese, nondistended. Hepatic and splenic margins not palpable. MUSCULOSKELETAL: No obvious deformities. No clubbing. No cyanosis. No edema. NEUROLOGICAL: Awake and alert. No obvious cranial nerve deficits. Motor grossly within normal limits. Normal speech. PSYCHIATRIC: Appropriate mood and affect; insight and judgment weak . Data Data Last Documented VS Vital Signs Date Time Temp Pulse Resp B/P (MAP) Pulse Ox O2 Delivery O2 Flow Rate FiO2 04/18/17 08:16 98.2 85 18 140/65 (90) 98 Orders Orders Complete Blood Count With Diff (04/18/17 08:38) Comprehensive Metabolic Panel (04/18/17 08:38) Oxycodone-Acetamin 5-325 Mg (Percocet (04/18/17 10:45) Admit Order (Ed Use Only) (04/18/17 10:47) Labs Laboratory Tests Test 04/18/17 08:45 White Blood Count 0.3 TH/MM3 Red Blood Count 3.07 MIL/MM3 Hemoglobin 8.2 GM/DL Hematocrit 23.7 % Mean Corpuscular Volume 77.4 FL Mean Corpuscular Hemoglobin 26.7 PG Mean Corpuscular Hemoglobin Concent 34.5 % Red Cell Distribution Width 17.3 % Platelet Count 4 TH/MM3 Mean Platelet Volume 11.2 FL CBC Comment AUTO DIFF Differential Total Cells Counted 30 Lymphocytes % 100 % Neutrophils # (Manual) 0.0 TH/MM3 Differential Comment FINAL DIFF MANUAL Platelet Estimate RARE Platelet Morphology Comment NORMAL Blood Urea Nitrogen 12 MG/DL Creatinine 0.58 MG/DL Random Glucose 79 MG/DL Total Protein 7.0 GM/DL Albumin 3.1 GM/DL Calcium Level 8.5 MG/DL Alkaline Phosphatase 70 U/L Aspartate Amino Transf (AST/SGOT) 19 U/L Alanine Aminotransferase (ALT/SGPT) 59 U/L Total Bilirubin 1.0 MG/DL Sodium Level 140 MEQ/L Potassium Level 3.7 MEQ/L Chloride Level 105 MEQ/L Carbon Dioxide Level 27.0 MEQ/L Anion Gap 8 MEQ/L Estimat Glomerular Filtration Rate 171 ML/MIN MDM Medical Decision Making Medical Screen Exam Complete: Yes Emergency Medical Condition: Yes Medical Record Reviewed: Yes Differential Diagnosis Pancytopenia, chemotherapy side effect, thrombocytopenia Narrative Course I have reviewed the patient's electronic medical record. His port is accessed CBC shows pancytopenia. Thrombocytopenia is critical at 4000. Metabolic profile is normal LFTs are normal Case reviewed with Dr. Tapia. He recommends hospitalization and platelet transfusion. I reviewed with the hospitalist who will admit for transfusion. As noted, he has hemorrhagic bullae in the buccal mucosa but no active bleeding Diagnosis Primary Impression: Thrombocytopenia Additional Impressions: AML (acute myelogenous leukemia) Qualified Codes: C92.00 - Acute myeloblastic leukemia, not having achieved remission Neutropenia Qualified Codes: D70.1 - Agranulocytosis secondary to cancer chemotherapy; T45.1X5A - Adverse effect of antineoplastic and immunosuppressive drugs, initial encounter Admitting Information Admitting Physician Requests: it Bud Mclaughlin MD Apr 18, 2017 08:47
[2017-04-18 09:11] LABS: HEMATOCRIT 23.7 % (39.0-51.0); MEAN CELL VOLUME 77.4 FL (80.0-100.0); MEAN CORPUSCULAR HEMOGLOBIN 26.7 PG (27.0-34.0); MEAN CORPUSCULAR HGB CONC 34.5 % (32.0-36.0); RED BLOOD COUNT 3.07 MIL/MM3 (4.50-5.90); RED CELL DISTRIBUTION WIDTH 17.3 % (11.6-17.2); WHITE BLOOD COUNT 0.3 TH/MM3 (4.0-11.0)
[2017-04-18 09:13] LABS: HEMO FLAGS AUTO DIFF
[2017-04-18 09:18] LABS: PLATELET COUNT 4 TH/MM3 (150-450)
[2017-04-18 09:26] LABS: ANION GAP 8 MEQ/L (5-15); AST (GOT) 19 U/L (15-37); BLOOD UREA NITROGEN 12 MG/DL (7-18); CHLORIDE 105 MEQ/L (98-107); GLOMERULAR FILTRATION RATE 171 ML/MIN (>89); POTASSIUM 3.7 MEQ/L (3.5-5.1); SODIUM (NA) 140 MEQ/L (136-145)
[2017-04-18 09:28] LABS: ALT (GPT) 59 U/L (12-78)
[2017-04-18 09:30] LABS: ALKALINE PHOSPHATASE 70 U/L (45-117)
[2017-04-18 09:51] LABS: WBC DIFF SAMPLE 30
[2017-04-18 09:52] LABS: PLATELET ESTIMATE SMEAR RARE (NORMAL); PLATELET MORPHOLOGY NORMAL (NORMAL); SCAN/DIFF FINAL DIFF MANUAL
[2017-04-18] MEDS ORDERED: oxyCODONE/ACETAMINOPHEN 5 MG/325 MG TAB PO ONE (10:45)
[2017-04-18] MEDS ORDERED: SODIUM CHLORIDE 0.9% FLUSH 10 ML FLUSH IV FLUSH PRN (11:45)
[2017-04-18] MEDS ORDERED: SENNOSIDES 8.6 MG TAB PO PRN (11:45)
[2017-04-18] MEDS ORDERED: BISACODYL 10 MG SUPP RECTAL PRN (11:45)
[2017-04-18] MEDS ORDERED: LACTULOSE SYRUP 20 GM/30 ML CUP PO PRN (11:45)
[2017-04-18] MEDS ORDERED: NALOXONE HCL 0.4 MG/ML AMP IV PUSH PRN (11:45)
[2017-04-18] MEDS ORDERED: MAGNESIUM HYDROXIDE SUSP 30 ML CUP PO PRN (11:45)
[2017-04-18] MEDS ORDERED: SODIUM CHLOR 0.9% 250 ML INJ 250 ML IV ONE (12:15)
[2017-04-18] MEDS ORDERED: CYTARABINE IV SCH (12:30)
[2017-04-18] MEDS: SODIUM CHLOR 0.9% 1000 ML INJ 1,000 ML IV SCH (12:52)
[2017-04-18] MEDS: SUCRALFATE 1 GM/10 ML CUP PO SCH ×3 (12:52→19:39)
[2017-04-18] MEDS: HYDROmorphone HCL PF 1 MG/ML VIAL IV PUSH PRN ×3 (12:53→23:24)
[2017-04-18] MEDS: oxyCODONE/ACETAMINOPHEN 10 MG/325 MG TAB PO SCH ×2 (12:53→17:07)
--- NOTE | 2017-04-18 13:21 | HHI.HP ---
HPI Service [facility] Primary Care Physician Catina Brian MD Admission Diagnosis critical thrombocytopenia, AML Diagnoses: Travel History International Travel<30 Days: No Contact w/Intl Traveler <30 Da: No Traveled to Known Affected Are: No History of Present Illness 27-year-old male with PMH of AML candidate for BM transplant, morbidly obese BMI 43. Came for further evaluation after receiving chemo as he has more pain and labs abnormal. The patient complains of diffuse pain all over. He says he gets this after chemotherapy for AML. He had it one week ago. He skipped his oncology appointment 2 days ago. He denies fever today. He has developed some lesions in his mouth. No active bleeding. Severity is moderate. Duration 3 days. No alleviating factors. Symptoms exacerbated by chemotherapy. Patient with pancytopenia. No overt bleeding at this time. No fever or chills. However says he had fever or chills. Discussed with hem/onc, will transfuse PLT. Review of Systems Except as stated in HPI: all other systems reviewed are Neg Past Family Social History Past Medical History AML, completed chemotherapy this month. Upper GI bleed Esophageal ulcer and Ladan esophagitis Past Surgical History Port placement. Reported Medications Reported Meds & Active Scripts Active Klonopin (Clonazepam) 0.5 Mg Tab 0.5 Mg PO HS Endocet (Oxycodone-Acetaminophen) 10-325 mg Tab 1 Tab PO Q6HR Sucralfate Liq (Sucralfate) 1 Gram/10 Ml Erin 1 Gm PO ACHS 30 Days Reported Cytarabine 2 G/20 ml Vial (Cytarabine/Pf) 2 Gram/20 Ml (100 Mg/Ml) Vial 1 Injection IV MONTHLY Allergies: Coded Allergies: No Known Allergies (Verified Allergy, Unknown, 04/18/17) Family History Healthy Social History No tobacco, occasional alcohol. Denies illicit drugs. Physical Exam Vital Signs Vital Signs Date Time Temp Pulse Resp B/P (MAP) Pulse Ox O2 Delivery O2 Flow Rate FiO2 04/18/17 11:58 20 04/18/17 10:56 98.2 75 16 125/56 (79) 100 Room Air 04/18/17 08:16 98.2 85 18 140/65 (90) 98 Physical Exam GENERAL: This is a well-nourished, well-developed patient, in no apparent distress. SKIN: No rashes, ecchymoses or lesions. Cool and dry. HEAD: Atraumatic. Normocephalic. No temporal or scalp tenderness. EYES: Pupils equal round and reactive. Extraocular motions intact. No scleral icterus. No injection or drainage. ENT: Nose without bleeding, purulent drainage or septal hematoma. Throat without erythema, tonsillar hypertrophy or exudate. Uvula midline. Airway patent. NECK: Trachea midline. No JVD or lymphadenopathy. Supple, nontender, no meningeal signs. CARDIOVASCULAR: Regular rate and rhythm without murmurs, gallops, or rubs. RESPIRATORY: Clear to auscultation. Breath sounds equal bilaterally. No wheezes , rales, or rhonchi. GASTROINTESTINAL: Abdomen soft, obese, non-tender, nondistended. No hepato- splenomegaly, or palpable masses. No guarding. MUSCULOSKELETAL: Extremities without clubbing, cyanosis, or edema. No joint tenderness, effusion, or edema noted. No calf tenderness. Negative Homans sign bilaterally. NEUROLOGICAL: Awake and alert. Cranial nerves II through XII intact. Motor and sensory grossly within normal limits. Five out of 5 muscle strength in all muscle groups. Normal speech. Laboratory Laboratory Tests Test 04/18/17 08:45 White Blood Count 0.3 Red Blood Count 3.07 Hemoglobin 8.2 Hematocrit 23.7 Mean Corpuscular Volume 77.4 Mean Corpuscular Hemoglobin 26.7 Mean Corpuscular Hemoglobin Concent 34.5 Red Cell Distribution Width 17.3 Platelet Count 4 Mean Platelet Volume 11.2 CBC Comment AUTO DIFF Differential Total Cells Counted 30 Lymphocytes % 100 Neutrophils # (Manual) 0.0 Differential Comment FINAL DIFF MANUAL Platelet Estimate RARE Platelet Morphology Comment NORMAL Blood Urea Nitrogen 12 Creatinine 0.58 Random Glucose 79 Total Protein 7.0 Albumin 3.1 Calcium Level 8.5 Alkaline Phosphatase 70 Aspartate Amino Transf (AST/SGOT) 19 Alanine Aminotransferase (ALT/SGPT) 59 Total Bilirubin 1.0 Sodium Level 140 Potassium Level 3.7 Chloride Level 105 Carbon Dioxide Level 27.0 Anion Gap 8 Estimat Glomerular Filtration Rate 171 Result Diagram: 04/18/1745 04/18/1745 Caprini VTE Risk Assessment Caprini VTE Risk Assessment: No/Low Risk (score <= 1) Caprini Risk Assessment Model Point Value = 1 Point Value = 2 Point Value = 3 Point Value = 5 Age 41-60 Minor surgery BMI > 25 kg/m2 Swollen legs Varicose veins or History of unexplained or recurrent spontaneous Oral contraceptives or hormone replacement Sepsis (< 1 month) Serious lung disease, including pneumonia (< 1 month) Abnormal pulmonary function Acute myocardial infarction Congestive heart failure (< 1 month) History of inflammatory bowel disease Medical patient at bed rest Age 61-74 Arthroscopic surgery Major open surgery (> 45 min) Laparoscopic surgery (> 45 min) Malignancy Confined to bed (> 72 hours) Immobilizing plaster cast Central venous access Age >= 75 History of VTE Family history of VTE Factor V Leiden Prothrombin [id number] Lupus anticoagulant Anticardiolipin antibodies Elevated serum homocysteine Heparin-induced thrombocytopenia Other congenital or acquired thrombophilia Stroke (< 1 month) Elective arthroplasty Hip, pelvis, or leg fracture Acute spinal cord injury (< 1 month) Prophylaxis Regimen Total Risk Factor Score Risk Level Prophylaxis Regimen 0-1 Low Early ambulation 2 Moderate Order ONE of the following: *Sequential Compression Device (SCD) *Heparin 5000 units SQ BID 3-4 Higher Order ONE of the following medications: *Heparin 5000 units SQ TID *Enoxaparin/Lovenox 40 mg SQ daily (WT < 150 kg, CrCl > 30 mL/min) *Enoxaparin/Lovenox 30 mg SQ daily (WT < 150 kg, CrCl > 10-29 mL/min) *Enoxaparin/Lovenox 30 mg SQ BID (WT < 150 kg, CrCl > 30 mL/min) AND/OR *Sequential Compression Device (SCD) 5 or more Highest Order ONE of the following medications: *Heparin 5000 units SQ TID (Preferred with Epidurals) *Enoxaparin/Lovenox 40 mg SQ daily (WT < 150 kg, CrCl > 30 mL/min) *Enoxaparin/Lovenox 30 mg SQ daily (WT < 150 kg, CrCl > 10-29 mL/min) *Enoxaparin/Lovenox 30 mg SQ BID (WT < 150 kg, CrCl > 30 mL/min) AND *Sequential Compression Device (SCD) Assessment and Plan Assessment and Plan 27-year-old male with: Pancytopenia with severe thrombocytopenia and neutropenia. No fevers. No overt bleeding at this time. PLT at 4, Neutrophils 0 on admission. Transfuse 1U PLT irradiated, CMV neg If bleeding occurs call hem/onc. AML: Patient completed chemotherapy, had multiple blood transfusions, is a candidate for BM transplant. Oncology ff. Continue home meds. Generalized pain: continue pain meds, add dilaudid IV for breakthrough pain. Monitor VS closely. GI prophylaxis: PPI. DVT PPx: hold at this time as patient with low PLT and at high risk of bleeding. Discussed Condition With Patient, nurse, ED physician Dr Mclaughlin, hem/onc ROYER Pagan Physician Certification 2 Midnight Certification Type: Admission for Inpatient Services Order for Inpatient Services The services are ordered in accordance with Medicare regulations or non- Medicare payer requirements, as applicable. In the case of services not specified as inpatient-only, they are appropriately provided as inpatient services in accordance with the 2-midnight benchmark. Estimated LOS (days): 3 days is the estimated time the patient will need to remain in the hospital, assuming treatment plan goals are met and no additional complications. Post-Hospital Plan: Home Carmelita Sullivan MD Apr 18, 2017 13:21
[2017-04-18] MEDS ORDERED: ONDANSETRON HCL 4 MG/2 ML VIAL ONE (13:58)
[2017-04-18] MEDS ORDERED: ONDANSETRON HCL 4 MG/2 ML VIAL IV ONE (14:15)
--- NOTE | 2017-04-18 19:09 | MB ---
cc: ANNA TAYLOR M.D. DATE OF CONSULTATION: 04/18/2017. REASON FOR CONSULTATION: Consult requested by the hospitalist for evaluation of pancytopenia in a patient who is receiving consolidation chemotherapy for acute myeloid leukemia, inversion 16. HISTORY OF PRESENT ILLNESS: Gunnar is a pleasant 27-year-old male. He is under the care of my associate, Dr. Santoyo. The is a 27-year-old male who was diagnosed with acute myeloid leukemia with inversion 16 which carries a good prognosis in December of 2016. He was treated with induction chemotherapy daunorubicin and LUISANA-C and then he went into remission. The patient subsequently had two cycles of consolidation chemotherapy with high-dose LUISANA-C. The last chemotherapy was on April 05. He tolerated the chemotherapy well and he was discharged to home. The patient had an appointment with Dr. Santoyo last week, , but due to lack of transportation, he was unable to keep that appointment. He had a fever yesterday at home and he took Motrin. However, today he noticed blood blisters in his mouth. He knew that he was in trouble and he decided to come to the emergency room. In the emergency room, the patient had a blood test. The CBC showed white count of 0.3, hemoglobin 8.2, platelet count is 24,000. The emergency room physician, Dr. Mclaughlin, called me and I have discussed the case. I recommended the patient should get platelet transfusion immediately with a platelet count of only 4,000 and blood blisters in his mouth. The patient was subsequently admitted by the hospitalist. Now I have been asked to see him for further evaluation. The patient is receiving platelet transfusion at the present time. He denies any fever. He still has blisters in his mouth but they are not bleeding any more. He denies any epistaxis. He denies any melena or hematuria. The rest of the review of systems is negative. PAST MEDICAL HISTORY: None other than acute myeloid leukemia, which was recently diagnosed. PAST SURGICAL HISTORY: None other than Infusaport. ALLERGIES: NONE. MEDICATIONS: 1. Carafate. 2. Rika-Colace. 3. Klonopin. 4. Percocet. 5. Restoril. FAMILY HISTORY: Denies any history of malignancy. SOCIAL HISTORY: He does not smoke cigarettes. He does not drink alcohol. 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 PHYSICAL EXAMINATION: GENERAL: This is a well-developed, well-nourished obese white male in no apparent distress. VITAL SIGNS: Temperature 98.5, heart rate is 82, blood pressure 98/54. HEAD, EYES, EARS, NOSE, THROAT: Pupils equal, round and reactive to light and accommodation. Extraocular muscles intact. Anicteric. Hemorrhagic blisters noted in his mouth. NECK: No lymphadenopathy noted. LUNGS: Clear. No wheezes, rales or rhonchi. HEART: Regular rate and rhythm. ABDOMEN: Abdomen soft and nontender. No hepatosplenomegaly. EXTREMITIES: No pedal edema. NEUROLOGIC: Awake, alert, oriented times three. SKIN: No significant lesions noted. ASSESSMENT: 1. Acute myeloid leukemia, inversion 16, in remission status post two cycles of consolidation high-dose LUISANA-C chemotherapy. 2. Severe pancytopenia due to chemotherapy. 3. Oral hemorrhagic blisters due to severe thrombocytopenia with a platelet count of only 4000. PLAN: I have reviewed his available records. I have discussed with the patient regarding the pancytopenia, especially thrombocytopenia. The patient unfortunately missed his appointment with Dr. Santoyo last week . He has been advised to keep the follow-up appointment as he may require blood and platelet transfusion in the office. The patient is currently receiving platelet transfusion. He does not require any blood transfusion as his hemoglobin is 8.2. His white count is 0.3. The absolute neutrophil count is only zero. He is profoundly neutropenic. Neutropenic precautions will be carried out. He does not have any fever, however, if he develops any fever, then will start the neutropenic fever protocol. The patient has been advised not to take any Motrin if he has any fever, especially when he has thrombocytopenia. He should not be taking any Motrin. The patient was educated regarding Motrin. Further recommendations based on his hospital stay. His primary oncologist, Dr. Santoyo, will resume the care tomorrow morning. Thank you for asking my opinion. Donell Taylor MD /JCC /6:28 PM /6:47 PM ROSALINO
[2017-04-18] MEDS: SODIUM CHLORIDE 0.9% FLUSH 10 ML FLUSH IV FLUSH SCH (19:37)
[2017-04-18] MEDS: DOCUSATE SODIUM 50 MG/SENNA 8.6 MG TAB PO SCH (19:40)
[2017-04-18] MEDS: clonazePAM 0.5 MG TAB PO SCH (21:00)
[2017-04-18] MEDS: ONDANSETRON HCL 4 MG/2 ML VIAL IV PUSH PRN (21:46)
[2017-04-19] VITALS (11 sets, daily range): BP systolic 105–149; BP diastolic 45–70; PULSE 60–93; RESP 14–20; TEMP 97.5–99.2; O2SAT 97–100
[2017-04-19] MEDS: oxyCODONE/ACETAMINOPHEN 10 MG/325 MG TAB PO SCH ×4 (01:10→18:03)
[2017-04-19] MEDS: PROCHLORPERAZINE INJ 10 MG/2 ML VIAL IV PRN ×2 (01:10→06:40)
[2017-04-19] MEDS: NYSTAT/DIPHENHY/LIDO MOUTHWASH (Adult) 120ML PO SCH ×5 (01:11→20:50)
[2017-04-19] MEDS: SODIUM CHLOR 0.9% 1000 ML INJ 1,000 ML IV SCH ×3 (01:13→20:55)
[2017-04-19] MEDS: ONDANSETRON HCL 4 MG/2 ML VIAL IV PUSH PRN ×3 (03:31→20:50)
[2017-04-19] MEDS: HYDROmorphone HCL PF 1 MG/ML VIAL IV PUSH PRN ×3 (03:31→20:51)
[2017-04-19 04:55] LABS: HEMATOCRIT 22.2 % (39.0-51.0); MEAN CELL VOLUME 77.6 FL (80.0-100.0); MEAN CORPUSCULAR HEMOGLOBIN 26.1 PG (27.0-34.0); MEAN CORPUSCULAR HGB CONC 33.6 % (32.0-36.0); RED BLOOD COUNT 2.86 MIL/MM3 (4.50-5.90); RED CELL DISTRIBUTION WIDTH 17.2 % (11.6-17.2); WHITE BLOOD COUNT 0.3 TH/MM3 (4.0-11.0)
[2017-04-19 05:02] LABS: HEMO FLAGS AUTO DIFF
[2017-04-19 05:10] LABS: PLATELET COUNT 17 TH/MM3 (150-450)
[2017-04-19 05:23] LABS: BICARBONATE 30.3 MEQ/L (21.0-32.0); POTASSIUM 3.8 MEQ/L (3.5-5.1)
[2017-04-19 07:02] LABS: POLYS (SEG NEUTROPHILS) 5 % (16-70); WBC DIFF SAMPLE 20
[2017-04-19 07:03] LABS: PLATELET ESTIMATE SMEAR RARE (NORMAL); PLATELET MORPHOLOGY NORMAL (NORMAL); SCAN/DIFF FINAL DIFF MANUAL
[2017-04-19] MEDS: SODIUM CHLORIDE 0.9% FLUSH 10 ML FLUSH IV FLUSH SCH ×2 (09:00→20:55)
[2017-04-19] MEDS: DOCUSATE SODIUM 50 MG/SENNA 8.6 MG TAB PO SCH ×2 (09:00→20:51)
--- NOTE | 2017-04-19 10:09 | HHI.PR ---
Subjective Remarks No fever ro chills.No over bleeding. No cough. Has some nausea and vomited NBNB. Loose stools. No abd pain . Sleepy. Still with pain however is controlled by current meds. Objective Vitals Vital Signs Date Time Temp Pulse Resp B/P (MAP) Pulse Ox O2 Delivery O2 Flow Rate FiO2 04/19/17 09:25 97 04/19/17 07:59 65 04/19/17 04:51 97 04/19/17 03:29 97.5 60 14 109/52 (71) 97 04/18/17 23:24 98.5 81 16 111/62 (78) 97 04/18/17 22:00 70 04/18/17 19:26 98.6 73 16 119/78 (92) 99 04/18/17 17:44 98.5 82 18 98/54 04/18/17 17:00 98.5 67 18 93/52 94 04/18/17 15:05 98.2 75 18 122/62 (82) 99 04/18/17 14:54 04/18/17 13:44 20 04/18/17 13:44 20 04/18/17 11:58 20 04/18/17 10:56 98.2 75 16 125/56 (79) 100 Room Air I/O 04/18/17 04/18/17 04/18/17 04/19/17 04/19/17 04/19/17 07:00 15:00 23:00 07:00 15:00 23:00 Intake Total 500 ml 782 ml 1840 ml Output Total 1000 ml 2450 ml Balance -500 ml 782 ml -610 ml Intake Oral 500 ml 240 ml IV Total 1600 ml Platelets 266 ml Blood Product IV Normal Saline Flush 516 ml Output Urine Total 1650 ml Emesis 1000 ml 800 ml Result Diagram: 04/19/1742404/19/17424 Objective Remarks GENERAL: This is a well-nourished, well-developed patient, in no apparent distress. SKIN: No rashes, ecchymoses or lesions. Cool and dry. CARDIOVASCULAR: Regular rate and rhythm without murmurs, gallops, or rubs. RESPIRATORY: Clear to auscultation. Breath sounds equal bilaterally. No wheezes , rales, or rhonchi. GASTROINTESTINAL: Abdomen soft, obese, non-tender, nondistended. No hepato- splenomegaly, or palpable masses. No guarding. MUSCULOSKELETAL: Extremities without clubbing, cyanosis, or edema. No joint tenderness, effusion, or edema noted. No calf tenderness. Negative Homans sign bilaterally. NEUROLOGICAL: Awake and alert. Cranial nerves II through XII intact. Motor and sensory grossly within normal limits. Five out of 5 muscle strength in all muscle groups. Normal speech. A/P Assessment and Plan 27-year-old male with: Pancytopenia with severe thrombocytopenia and neutropenia. No fevers. No overt bleeding at this time. PLT at 4, Neutrophils 0 on admission. Received 1U PLT irradiated, CMV neg. PlT impprved at 17 today . Monitor and transfuse per hem/ onc recommendations If bleeding occurs call hem/onc. AML: Patient completed chemotherapy, had multiple blood transfusions. Oncology ff. Continue home meds. Restart bactrim, cipro and acyclovir prophylactically Generalized pain: continue pain meds, add dilaudid IV for breakthrough pain. Monitor VS closely. GI prophylaxis: PPI. DVT PPx: hold at this time as patient with low PLT and at high risk of bleeding. Discussed Condition With Patient, nurse, Miss Rubina aPgan ROYER hem/onc Carmelita Sullivan MD Apr 19, 2017 10:09
--- NOTE | 2017-04-19 10:25 | PD.ONC.PN ---
Subjective Subjective Remarks Afebrile overnight. Patient resting in bed in nad. Feeling a bit better today, but still feeling achy. Mouth still with blisters. Objective Data Date Time Temp Pulse Resp B/P (MAP) Pulse Ox O2 Delivery O2 Flow Rate FiO2 04/19/17 09:25 97 04/19/17 07:59 65 04/19/17 04:51 97 04/19/17 03:29 97.5 60 14 109/52 (71) 97 04/18/17 23:24 98.5 81 16 111/62 (78) 97 04/18/17 22:00 70 04/18/17 19:26 98.6 73 16 119/78 (92) 99 04/18/17 17:44 98.5 82 18 98/54 04/18/17 17:00 98.5 67 18 93/52 94 04/18/17 15:05 98.2 75 18 122/62 (82) 99 04/18/17 14:54 04/18/17 13:44 20 04/18/17 13:44 20 04/18/17 11:58 20 04/18/17 10:56 98.2 75 16 125/56 (79) 100 Room Air 04/19/17 04/19/17 04/19/17 07:00 15:00 23:00 Intake Total 1840 ml Output Total 2450 ml Balance -610 ml Result Diagram: 04/19/17 0425 04/19/17 0425 Laboratory Results Laboratory Tests Test 04/19/17 04:25 White Blood Count 0.3 TH/MM3 Red Blood Count 2.86 MIL/MM3 Hemoglobin 7.5 GM/DL Hematocrit 22.2 % Mean Corpuscular Volume 77.6 FL Mean Corpuscular Hemoglobin 26.1 PG Mean Corpuscular Hemoglobin Concent 33.6 % Red Cell Distribution Width 17.2 % Platelet Count 17 TH/MM3 Mean Platelet Volume 8.3 FL CBC Comment AUTO DIFF Differential Total Cells Counted 20 Neutrophils % (Manual) 5 % Lymphocytes % 95 % Neutrophils # (Manual) 0.0 TH/MM3 Differential Comment FINAL DIFF MANUAL Platelet Estimate RARE Platelet Morphology Comment NORMAL Red Cell Morphology Comment NORMAL Blood Urea Nitrogen 12 MG/DL Creatinine 0.57 MG/DL Random Glucose 84 MG/DL Calcium Level 8.7 MG/DL Sodium Level 139 MEQ/L Potassium Level 3.8 MEQ/L Chloride Level 104 MEQ/L Carbon Dioxide Level 30.3 MEQ/L Anion Gap 5 MEQ/L Estimat Glomerular Filtration Rate 174 ML/MIN Administered Medications Medications (Trade) Dose Ordered Sig/Emma Route PRN Reason Start Time Stop Time Status Last Admin Dose Admin Sodium Chloride 1,000 ml @ 100 mls/hr Q10H IV 04/18/17 12:00 04/19/17 01:13 Clonazepam (KlonoPIN) 0.5 mg HS PO 04/18/17 21:00 04/18/17 21:00 Oxycodone/ Acetaminophen (Percocet 10-325 Mg) 1 tab Q6HR PO 04/18/17 12:30 04/19/17 06:40 Sucralfate (Carafate Liq) 1 gm ACHS PO 04/18/17 12:30 04/18/17 19:39 Hydromorphone HCl (Dilaudid Pf Inj) 0.5 mg Q4H PRN IV PUSH BREAKTHROUGH PAIN 04/18/17 12:30 04/19/17 03:31 Ondansetron HCl (Zofran Inj) 4 mg Q6H PRN IV PUSH NAUSEA OR VOMITING 04/18/17 22:00 04/19/17 03:31 Prochlorperazine Edisylate (Compazine Inj) 10 mg Q6H PRN IV SEE LABEL COMMENTS 04/19/17 00:45 04/19/17 06:40 Multi-Ingredient Mouthwash/Gargle (Magic Mouthwash Adult Liq) 10 ml QID PO 04/19/17 00:45 04/19/17 01:11 Objective Remarks GENERAL: Young man, lying in bed in nad. SKIN: Warm and dry. HEAD: Normocephalic. MOUTH: a few healing blisters along soft palate. no active bleeding. EYES: No injection or drainage. NECK: Supple, trachea midline. CARDIOVASCULAR: Regular rate and rhythm RESPIRATORY: Breath sounds equal bilaterally. No accessory muscle use. GASTROINTESTINAL: Abdomen soft, non-tender, nondistended. EXTREMITIES: No cyanosis NEUROLOGICAL: awake and alert, normal speech. Assessment/Plan Problem List: (1) Pancytopenia ICD Codes: D61.818 - Other pancytopenia Plan: --due to chemotherapy --transfuse irradiated CMV negative blood products as needed. (2) AML (acute myelogenous leukemia) ICD Codes: C92.00 - Acute myeloblastic leukemia, not having achieved remission Status: Chronic (3) Generalized pain ICD Codes: R52 - Pain, unspecified Assessment 27y/o male with AML, admitted with pancytopenia, generalized weakness. Plan 1. give 1 unit pRBC 2. monitor CBC 3. supportive care Attending Statement The exam, history, and the medical decision-making described in the above note were completed with the assistance of the mid-level provider. I reviewed and agree with the findings presented. I attest that I had a [id number] encounter with the patient on the same day, and personally performed and documented my assessment and findings in the medical record AML in CR #1 s/p induction S/p HiDAC consolidation # 2 Severe Neutropenia- closely monitot for lethargy/fever--low threshold to add IV cefepime. Will need talbert cultures if spikes a fever Severe Anemia--transfuse 1 unit of pRBC Severe Thrombocytopenia: no bleeding. fall precautions. Transfuse to keep PLTs > 10 Irradiated blood products Oral mucositis--magic mouth wash. start acyclovir start Bactrim DS/Cipro for prophylaxis Would likely be inpatient for the next few days until ANC > 500 due to severe neutropenia and risk for severe infections. d/w rn o/n events reviewed . Problem Qualifiers (1) AML (acute myelogenous leukemia): Qualified Codes: C92.01 - Acute myeloblastic leukemia, in remission Fartun Pagan Apr 19, 2017 10:25 Joey Santoyo MD Apr 19, 2017 23:57
[2017-04-19] MEDS ORDERED: diphenhydrAMINE HCL 25 MG CAP PO PRN (10:30)
[2017-04-19] MEDS ORDERED: ACETAMINOPHEN 325 MG TAB PO PRN (10:30)
[2017-04-19] MEDS: SUCRALFATE 1 GM/10 ML CUP PO SCH ×3 (10:49→20:50)
[2017-04-19] MEDS ORDERED: SODIUM CHLOR 0.9% 250 ML INJ 250 ML IV ONE (12:00)
[2017-04-19] MEDS ORDERED: NYSTAT/DIPHENHY/LIDO MOUTHWASH (Adult) 120ML PO SCH (12:45)
[2017-04-19] MEDS: clonazePAM 0.5 MG TAB PO SCH (20:50)
[2017-04-19] MEDS: ACYCLOVIR 200 MG CAP PO SCH (20:50)
[2017-04-20] VITALS (14 sets, daily range): BP systolic 103–138; BP diastolic 53–80; PULSE 76–128; RESP 16–20; TEMP 99.5–102.8; O2SAT 96–100
[2017-04-20] MEDS: oxyCODONE/ACETAMINOPHEN 10 MG/325 MG TAB PO SCH ×4 (00:04→17:40)
[2017-04-20] MEDS: PROCHLORPERAZINE INJ 10 MG/2 ML VIAL IV PRN ×4 (01:06→19:42)
[2017-04-20] MEDS: HYDROmorphone HCL PF 1 MG/ML VIAL IV PUSH PRN ×5 (01:08→23:05)
[2017-04-20 06:03] LABS: HEMATOCRIT 22.9 % (39.0-51.0); MEAN CELL VOLUME 77.5 FL (80.0-100.0); MEAN CORPUSCULAR HEMOGLOBIN 26.6 PG (27.0-34.0); MEAN CORPUSCULAR HGB CONC 34.4 % (32.0-36.0); RED BLOOD COUNT 2.96 MIL/MM3 (4.50-5.90); RED CELL DISTRIBUTION WIDTH 17.9 % (11.6-17.2); WHITE BLOOD COUNT 0.3 TH/MM3 (4.0-11.0)
[2017-04-20 06:05] LABS: HEMO FLAGS AUTO DIFF
[2017-04-20 06:09] LABS: PLATELET COUNT 9 TH/MM3 (150-450)
[2017-04-20 06:16] LABS: BICARBONATE 28.7 MEQ/L (21.0-32.0); POTASSIUM 3.6 MEQ/L (3.5-5.1)
[2017-04-20 07:59] LABS: PLATELET ESTIMATE SMEAR RARE (NORMAL); PLATELET MORPHOLOGY NORMAL (NORMAL); WBC DIFF SAMPLE 25
[2017-04-20 08:00] LABS: SCAN/DIFF FINAL DIFF MANUAL
[2017-04-20] MEDS: SUCRALFATE 1 GM/10 ML CUP PO SCH ×4 (08:41→20:42)
[2017-04-20] MEDS: DOCUSATE SODIUM 50 MG/SENNA 8.6 MG TAB PO SCH ×2 (08:42→20:27)
[2017-04-20] MEDS: ACYCLOVIR 200 MG CAP PO SCH ×2 (08:42→20:41)
[2017-04-20] MEDS: NYSTAT/DIPHENHY/LIDO MOUTHWASH (Adult) 120ML PO SCH ×4 (08:43→20:42)
[2017-04-20] MEDS: SODIUM CHLORIDE 0.9% FLUSH 10 ML FLUSH IV FLUSH SCH ×2 (08:43→20:39)
[2017-04-20] MEDS ORDERED: diphenhydrAMINE HCL 25 MG CAP PO PRN (08:45)
[2017-04-20] MEDS ORDERED: SODIUM CHLOR 0.9% 250 ML INJ 250 ML IV ONE ×2 (08:45)
[2017-04-20] MEDS: ONDANSETRON HCL 4 MG/2 ML VIAL IV PUSH PRN ×4 (09:06→23:04)
[2017-04-20] MEDS ORDERED: CIPROFLOXACIN 250 MG TAB PO SCH (10:00)
--- NOTE | 2017-04-20 10:15 | PD.ONC.PN ---
Subjective Subjective Remarks Tmax 100.1 overnight. Patient resting without complaints. No cough or sore throat. Mouth sores improved. body aches improved. no bleeding. no diarrhea. Objective Data Date Time Temp Pulse Resp B/P (MAP) Pulse Ox O2 Delivery O2 Flow Rate FiO2 04/20/17 08:55 99.9 84 18 117/65 (82) 97 04/20/17 07:31 18 04/20/17 05:07 99.5 96 20 103/57 (72) 97 04/20/17 00:39 93 04/20/17 00:11 100.1 98 20 109/63 (78) 100 04/19/17 20:48 99.2 68 18 110/68 (82) 99 04/19/17 20:00 93 04/19/17 19:02 21 04/19/17 18:07 98.5 78 16 149/70 100 04/19/17 15:58 98.5 82 20 105/45 100 04/19/17 15:44 98.5 73 20 147/47 100 04/19/17 13:34 97.7 72 20 110/50 (70) 98 04/19/17 10:59 97.9 73 20 139/66 (90) 100 Result Diagram: 04/20/17 0513 04/20/17 0513 Laboratory Results Laboratory Tests Test 04/20/17 05:13 White Blood Count 0.3 TH/MM3 Red Blood Count 2.96 MIL/MM3 Hemoglobin 7.9 GM/DL Hematocrit 22.9 % Mean Corpuscular Volume 77.5 FL Mean Corpuscular Hemoglobin 26.6 PG Mean Corpuscular Hemoglobin Concent 34.4 % Red Cell Distribution Width 17.9 % Platelet Count 9 TH/MM3 Mean Platelet Volume 8.8 FL CBC Comment AUTO DIFF Differential Total Cells Counted 25 Lymphocytes % 100 % Neutrophils # (Manual) 0.0 TH/MM3 Differential Comment FINAL DIFF MANUAL Platelet Estimate RARE Platelet Morphology Comment NORMAL Blood Urea Nitrogen 8 MG/DL Creatinine 0.72 MG/DL Random Glucose 89 MG/DL Calcium Level 8.4 MG/DL Sodium Level 136 MEQ/L Potassium Level 3.6 MEQ/L Chloride Level 100 MEQ/L Carbon Dioxide Level 28.7 MEQ/L Anion Gap 7 MEQ/L Estimat Glomerular Filtration Rate 133 ML/MIN Administered Medications Medications (Trade) Dose Ordered Sig/Emma Route PRN Reason Start Time Stop Time Status Last Admin Dose Admin Sodium Chloride 1,000 ml @ 100 mls/hr Q10H IV 04/18/17 12:00 04/19/17 20:55 Sodium Chloride (NS Flush) 2 ml BID IV FLUSH 04/18/17 21:00 04/20/17 08:43 Senna/Docusate Sodium (Rika-Colace) 1 tab BID PO 04/18/17 21:00 04/20/17 08:42 Clonazepam (KlonoPIN) 0.5 mg HS PO 04/18/17 21:00 04/19/17 20:50 Oxycodone/ Acetaminophen (Percocet 10-325 Mg) 1 tab Q6HR PO 04/18/17 12:30 04/20/17 06:31 Sucralfate (Carafate Liq) 1 gm ACHS PO 04/18/17 12:30 04/20/17 08:41 Hydromorphone HCl (Dilaudid Pf Inj) 0.5 mg Q4H PRN IV PUSH BREAKTHROUGH PAIN 04/18/17 12:30 04/20/17 08:41 Ondansetron HCl (Zofran Inj) 4 mg Q6H PRN IV PUSH NAUSEA OR VOMITING 04/18/17 22:00 04/20/17 09:49 Prochlorperazine Edisylate (Compazine Inj) 10 mg Q6H PRN IV SEE LABEL COMMENTS 04/19/17 00:45 04/20/17 01:06 Multi-Ingredient Mouthwash/Gargle (Magic Mouthwash Adult Liq) 10 ml QID PO 04/19/17 00:45 04/20/17 08:43 Acyclovir (Zovirax) 200 mg Q12HR PO 04/19/17 21:00 04/20/17 08:42 Objective Remarks GENERAL: Young man, sitting up in bed in nad. SKIN: Warm and dry. port in place, right chest wall. HEAD: Normocephalic. EYES: No injection or drainage. NECK: Supple, trachea midline. CARDIOVASCULAR: Regular rate and rhythm RESPIRATORY: Breath sounds equal bilaterally. No accessory muscle use. GASTROINTESTINAL: Abdomen soft, non-tender, nondistended. EXTREMITIES: No cyanosis NEUROLOGICAL: awake and alert, normal speech. moving all extremities. Assessment/Plan Problem List: (1) Neutropenic sepsis ICD Codes: A41.9 - Sepsis, unspecified organism; D70.9 - Neutropenia, unspecified Status: Resolved Plan: --Blood cultures, 04/20, pending --started on Cefepime --cxr--pending --u/a--pending (2) Pancytopenia ICD Codes: D61.818 - Other pancytopenia Plan: --due to chemotherapy --transfuse irradiated CMV negative blood products as needed. (3) AML (acute myelogenous leukemia) ICD Codes: C92.00 - Acute myeloblastic leukemia, not having achieved remission Status: Chronic (4) Generalized pain ICD Codes: R52 - Pain, unspecified Assessment 27y/o male with AML, admitted with pancytopenia, generalized weakness. Plan 1. give 1 unit pRBC and 1unit platelets 2. start Cefepime 3. obtain blood cultures, CXR, u/a Attending Statement The exam, history, and the medical decision-making described in the above note were completed with the assistance of the mid-level provider. I reviewed and agree with the findings presented. I attest that I had a [id number] encounter with the patient on the same day, and personally performed and documented my assessment and findings in the medical record AML s/p induction and consolidation # 2 Febrile Neutropenia--persistent high grade fevers. blood cultures ordered. UA negative. Cx pending. Cefepime was added earlier in the day. Vancomycin and Micafungin added. ANC 0 close monitoring--if becomes unstable/hypotensive etc--will consider adding gentamicin. Since all the abx were started today--will try not add another abx for another 24 hours unless clinical situation necessitates. Tylenol given for fever Severe thrombocytopenia: platelets given today Severe anemia: no pRBC transfusion today Diarrhea--check c.diff D/C bactrim and cipro continue acyclovir d/w rn o/n events reviewed Problem Qualifiers (1) AML (acute myelogenous leukemia): Qualified Codes: C92.01 - Acute myeloblastic leukemia, in remission Fartun Pagan Apr 20, 2017 10:15 Jeoy Santoyo MD Apr 20, 2017 23:07
--- NOTE | 2017-04-20 10:52 | RADRPT ---
EXAM DATE/TIME: 04/20/2017 10:06 [facility] COMPARISON: CHEST SINGLE AP, March 12, 2017, 14:54. INDICATIONS : Chest pain. MEDICAL HISTORY : Leukemia. SURGICAL HISTORY : None. ENCOUNTER: Subsequent ACUITY: 1 week PAIN SCORE: 2/10 LOCATION: Bilateral chest FINDINGS: Patient is rotated rightward. Accounting for rotation, cardiac mediastinal silhouette is normal. Lung s are clear. Right IJ [id number] catheter with the tip projecting over the central venous system. Osseous structures are intact. CONCLUSION: No acute cardiopulmonary process. Bean Dugan MD on April 20, 2017 at 10:49 Board Certified Radiologist. This report was verified electronically.
[2017-04-20 11:16] LABS: BLOOD, URINE NEG (NEG); GLUCOSE,URINE NEG (NEG); HYALINE CAST, URINE 1 /lpf (RARE); KETONE, URINE NEG (NEG); MUCUS URINE FEW /lpf (OCC); NITRITE,URINE NEG (NEG); URINE COLOR YELLOW (YELLW/STRAW)
[2017-04-20] MEDS: ACETAMINOPHEN 325 MG TAB PO PRN ×3 (11:17→22:36)
[2017-04-20] MEDS: CEFEPIME INJ 2,000 MG in SODIUM CHLORIDE 0.9% INJ 100 ML IV SCH ×2 (11:24→16:45)
[2017-04-20] MEDS: SODIUM CHLOR 0.9% 1000 ML INJ 1,000 ML IV SCH ×3 (11:25→23:07)
[2017-04-20] MEDS ORDERED: Vancomycin Consult Pharmacy 1 EA OTHER SCH (18:30)
[2017-04-20] MEDS ORDERED: VANCOMYCIN INJ 2,250 MG in SODIUM CHLORID 0.9% 500 ML INJ 500 ML IV ONE (18:30)
[2017-04-20] MEDS: clonazePAM 0.5 MG TAB PO SCH (21:00)
--- NOTE | 2017-04-20 22:30 | HHI.PR ---
Subjective Remarks Fevers present through today. Unimproved pancytopenia. Two units of platelets transfused based on a thrombocyte count of 9 this morning. WBC are at 0.3 this morning. Findings reviewed with the patient. Objective Vital Signs Date Time Temp Pulse Resp B/P (MAP) Pulse Ox O2 Delivery O2 Flow Rate FiO2 04/20/17 21:45 102.0 128 16 138/55 (82) 96 04/20/17 20:40 101.3 120 16 120/57 (78) 96 04/20/17 19:35 20 04/20/17 18:40 18 04/20/17 18:40 18 04/20/17 18:00 102.1 04/20/17 16:50 101.4 76 18 117/53 (74) 04/20/17 14:15 102.8 04/20/17 12:53 102.6 110 18 110/80 (90) 100 04/20/17 09:10 100 21 04/20/17 08:55 99.9 84 18 117/65 (82) 97 04/20/17 08:00 96 04/20/17 05:07 99.5 96 20 103/57 (72) 97 04/20/17 00:39 93 04/20/17 00:11 100.1 98 20 109/63 (78) 100 I/O 04/19/17 04/19/17 04/19/17 04/20/17 04/20/17 04/20/17 07:00 15:00 23:00 07:00 15:00 23:00 Intake Total 1840 ml 2650 ml 793 ml Output Total 2450 ml 1600 ml 900 ml 2580 ml Balance -610 ml -1600 ml 1750 ml -1787 ml Intake Oral 240 ml 1250 ml 600 ml IV Total 1600 ml 1000 ml Packed Cells 400 ml Platelets 193 ml Output Urine Total 1650 ml 1600 ml 900 ml 2580 ml Emesis 800 ml Result Diagram: 04/20/1751204/20/17512 Objective Remarks GENERAL: A&Ox3 SKIN: Warm and dry. HEAD: Normocephalic. EYES: No scleral icterus. No injection or drainage. NECK: Supple, trachea midline. No JVD or lymphadenopathy. CARDIOVASCULAR: Regular rate and rhythm without murmurs, gallops, or rubs. RESPIRATORY: Breath sounds equal bilaterally. No accessory muscle use. GASTROINTESTINAL: Abdomen soft, non-tender, nondistended. MUSCULOSKELETAL: No cyanosis, or edema. BACK: Nontender without obvious deformity. No CVA tenderness. A/P Problem List: (1) Neutropenic sepsis ICD Code: A41.9 - Sepsis, unspecified organism; D70.9 - Neutropenia, unspecified Status: Resolved (2) Pancytopenia ICD Code: D61.818 - Other pancytopenia (3) Generalized pain ICD Code: R52 - Pain, unspecified (4) Thrombocytopenia ICD Code: D69.6 - Thrombocytopenia, unspecified Status: Acute (5) Neutropenia ICD Code: D70.9 - Neutropenia, unspecified Status: Acute (6) AML (acute myelogenous leukemia) ICD Code: C92.00 - Acute myeloblastic leukemia, not having achieved remission Status: Chronic Assessment and Plan Assessment and Plan 27-year-old male admitted with Neutropenic Fever with Sepsis and Pancytopenia, who has underlying AML. Pancytopenia Neutropenic Fever AML Generalized Pain Remain on Bactrim, Cipro, and Acyclovir Continue Vancomycin Continue Cefepime Follow blood and urine cultures Hematology/Oncology following Replace PRBC and Platelets as needed Continue Pain treatments Follow vital signs closely DVT PPx SCDs Anticoagulation on hold due to degree of anemia and high bleed risks Problem Qualifiers (1) Neutropenia: Qualified Codes: D70.1 - Agranulocytosis secondary to cancer chemotherapy; T45.1X5A - Adverse effect of antineoplastic and immunosuppressive drugs, initial encounter (2) AML (acute myelogenous leukemia): Qualified Codes: C92.01 - Acute myeloblastic leukemia, in remission Nilson Hernandez MD Apr 20, 2017 22:30
[2017-04-20] MEDS: MICAFUNGIN INJ 100 MG in SODIUM CHLORIDE 0.9% INJ 100 ML IV SCH (23:03)
[2017-04-21] VITALS (17 sets, daily range): BP systolic 93–131; BP diastolic 44–76; PULSE 110–130; RESP 15–24; TEMP 98.2–103.1; O2SAT 80–98
[2017-04-21] MEDS: CEFEPIME INJ 2,000 MG in SODIUM CHLORIDE 0.9% INJ 100 ML IV SCH ×4 (00:23→19:40)
[2017-04-21] MEDS: oxyCODONE/ACETAMINOPHEN 10 MG/325 MG TAB PO SCH ×2 (00:23→05:14)
[2017-04-21] MEDS: PROCHLORPERAZINE INJ 10 MG/2 ML VIAL IV PRN ×3 (02:35→22:14)
[2017-04-21] MEDS: HYDROmorphone HCL PF 1 MG/ML VIAL IV PUSH PRN ×2 (02:36→06:34)
[2017-04-21] MEDS: VANCOMYCIN INJ 2,000 MG in SODIUM CHLORID 0.9% 500 ML INJ 500 ML IV SCH ×2 (02:40→14:39)
[2017-04-21] MEDS: ACETAMINOPHEN 325 MG TAB PO PRN ×5 (02:43→22:26)
[2017-04-21 05:37] LABS: HEMATOCRIT 21.8 % (39.0-51.0); MEAN CELL VOLUME 76.3 FL (80.0-100.0); MEAN CORPUSCULAR HEMOGLOBIN 26.1 PG (27.0-34.0); MEAN CORPUSCULAR HGB CONC 34.3 % (32.0-36.0); RED BLOOD COUNT 2.86 MIL/MM3 (4.50-5.90); RED CELL DISTRIBUTION WIDTH 17.5 % (11.6-17.2); WHITE BLOOD COUNT 0.1 TH/MM3 (4.0-11.0)
[2017-04-21 05:45] LABS: HEMO FLAGS AUTO DIFF
[2017-04-21 05:48] LABS: PLATELET COUNT 9 TH/MM3 (150-450)
[2017-04-21 05:56] LABS: ALT (GPT) 36 U/L (12-78); ANION GAP 8 MEQ/L (5-15); AST (GOT) 10 U/L (15-37); BICARBONATE 25.7 MEQ/L (21.0-32.0); BLOOD UREA NITROGEN 10 MG/DL (7-18); CHLORIDE 97 MEQ/L (98-107); GLOMERULAR FILTRATION RATE 113 ML/MIN (>89); POTASSIUM 3.6 MEQ/L (3.5-5.1); SODIUM (NA) 131 MEQ/L (136-145)
[2017-04-21 05:58] LABS: ALKALINE PHOSPHATASE 68 U/L (45-117); TOTAL BILIRUBIN ADULT 2.3 MG/DL (0.2-1.0)
[2017-04-21] MEDS: ONDANSETRON HCL 4 MG/2 ML VIAL IV PUSH PRN ×3 (06:31→23:36)
[2017-04-21] MEDS ORDERED: SODIUM CHLOR 0.9% 1000 ML INJ 1,000 ML IV ONE ×3 (08:00→20:15)
[2017-04-21] MEDS ORDERED: SODIUM CHLOR 0.9% 250 ML INJ 250 ML IV ONE ×3 (08:15→17:45)
[2017-04-21 08:35] LABS: WBC DIFF SAMPLE 10
[2017-04-21 08:36] LABS: PLATELET ESTIMATE SMEAR RARE (NORMAL); PLATELET MORPHOLOGY NORMAL (NORMAL); SCAN/DIFF FINAL DIFF MANUAL
[2017-04-21] MEDS: DOCUSATE SODIUM 50 MG/SENNA 8.6 MG TAB PO SCH ×2 (08:43→19:39)
[2017-04-21] MEDS: SUCRALFATE 1 GM/10 ML CUP PO SCH ×4 (08:43→19:40)
[2017-04-21] MEDS: ACYCLOVIR 200 MG CAP PO SCH ×3 (08:44→18:00)
[2017-04-21] MEDS: NYSTAT/DIPHENHY/LIDO MOUTHWASH (Adult) 120ML PO SCH ×4 (09:00→19:38)
[2017-04-21] MEDS: SODIUM CHLORIDE 0.9% FLUSH 10 ML FLUSH IV FLUSH SCH ×2 (09:00→19:38)
[2017-04-21] MEDS ORDERED: SULFAMETHOXAZOLE-TRIMETHOPRIM DS 800-160 MG TAB PO SCH (09:00)
--- NOTE | 2017-04-21 09:16 | PD.ONC.PN ---
Subjective Subjective Remarks Tmax 102.8 yesterday evening. Complaining of a burning sensation on his lateral right thigh present since last night. No known trauma. No rash. No diarrhea. No cough. +chills/body aches. Objective Data Date Time Temp Pulse Resp B/P (MAP) Pulse Ox O2 Delivery O2 Flow Rate FiO2 04/21/17 08:07 102.4 130 24 93/44 (60) 95 04/21/17 05:18 99.8 114 15 129/76 (93) 98 04/21/17 03:46 100.3 04/21/17 02:30 101.5 124 18 116/54 (74) 98 04/21/17 00:28 100.9 118 16 97 04/20/17 23:12 102.8 117 16 128/58 (81) 97 04/20/17 22:49 119 04/20/17 21:45 102.0 128 16 138/55 (82) 96 04/20/17 20:40 101.3 120 16 120/57 (78) 96 04/20/17 19:35 20 04/20/17 18:40 18 04/20/17 18:40 18 04/20/17 18:00 102.1 04/20/17 16:50 101.4 76 18 117/53 (74) 04/20/17 14:15 102.8 04/20/17 12:53 102.6 110 18 110/80 (90) 100 04/21/17 04/21/17 04/21/17 06:59 14:59 22:59 Intake Total 2405 ml Output Total 600 ml Balance 1805 ml Result Diagram: 04/21/1750904/21/17509 Laboratory Results Laboratory Tests Test 04/20/17 10:30 04/21/17 05:10 Urine Color YELLOW Urine Turbidity CLEAR Urine pH 7.0 Urine Specific [place] 1.014 Urine Protein NEG mg/dL Urine Glucose (UA) NEG mg/dL Urine Ketones NEG mg/dL Urine Occult Blood NEG Urine Nitrite NEG Urine Bilirubin NEG Urine Urobilinogen LESS THAN 2.0 MG/DL Urine Leukocyte Esterase NEG Urine WBC LESS THAN 1 /hpf Urine Hyaline Casts 1 /lpf Urine Mucus FEW /lpf White Blood Count 0.1 TH/MM3 Red Blood Count 2.86 MIL/MM3 Hemoglobin 7.5 GM/DL Hematocrit 21.8 % Mean Corpuscular Volume 76.3 FL Mean Corpuscular Hemoglobin 26.1 PG Mean Corpuscular Hemoglobin Concent 34.3 % Red Cell Distribution Width 17.5 % Platelet Count 9 TH/MM3 Mean Platelet Volume 8.1 FL CBC Comment AUTO DIFF Differential Total Cells Counted 10 Lymphocytes % 90 % Monocytes % 10 % Neutrophils # (Manual) 0.0 TH/MM3 Differential Comment FINAL DIFF MANUAL Platelet Estimate RARE Platelet Morphology Comment NORMAL Blood Urea Nitrogen 10 MG/DL Creatinine 0.83 MG/DL Random Glucose 104 MG/DL Total Protein 6.6 GM/DL Albumin 2.7 GM/DL Calcium Level 8.5 MG/DL Alkaline Phosphatase 68 U/L Aspartate Amino Transf (AST/SGOT) 10 U/L Alanine Aminotransferase (ALT/SGPT) 36 U/L Total Bilirubin 2.3 MG/DL Sodium Level 131 MEQ/L Potassium Level 3.6 MEQ/L Chloride Level 97 MEQ/L Carbon Dioxide Level 25.7 MEQ/L Anion Gap 8 MEQ/L Estimat Glomerular Filtration Rate 113 ML/MIN Culture Results Microbiology Date/Time Source Procedure Growth Status 04/20/17 14:34 Blood Peripheral Aerobic Blood Culture Pending Received 04/20/17 14:34 Blood Peripheral Anaerobic Blood Culture Pending Received 04/20/17 10:00 Blood Line Aerobic Blood Culture Pending Received 04/20/17 10:00 Blood Line Anaerobic Blood Culture Pending Received 04/20/17 10:30 Urine Clean Catch Urine Culture Pending Received Administered Medications Medications (Trade) Dose Ordered Sig/Emma Route PRN Reason Start Time Stop Time Status Last Admin Dose Admin Sodium Chloride 1,000 ml @ 125 mls/hr Q8H IV 04/18/17 12:00 04/20/17 23:07 Sodium Chloride (NS Flush) 2 ml BID IV FLUSH 04/18/17 21:00 04/20/17 08:43 Senna/Docusate Sodium (Rika-Colace) 1 tab BID PO 04/18/17 21:00 04/21/17 08:43 Clonazepam (KlonoPIN) 0.5 mg HS PO 04/18/17 21:00 04/19/17 20:50 Oxycodone/ Acetaminophen (Percocet 10-325 Mg) 1 tab Q6HR PO 04/18/17 12:30 04/21/17 05:14 Sucralfate (Carafate Liq) 1 gm ACHS PO 04/18/17 12:30 04/21/17 08:43 Hydromorphone HCl (Dilaudid Pf Inj) 0.5 mg Q4H PRN IV PUSH BREAKTHROUGH PAIN 04/18/17 12:30 04/21/17 06:34 Ondansetron HCl (Zofran Inj) 4 mg Q6H PRN IV PUSH NAUSEA OR VOMITING 04/18/17 22:00 04/21/17 06:31 Prochlorperazine Edisylate (Compazine Inj) 10 mg Q6H PRN IV SEE LABEL COMMENTS 04/19/17 00:45 04/21/17 08:48 Multi-Ingredient Mouthwash/Gargle (Magic Mouthwash Adult Liq) 10 ml QID PO 04/19/17 00:45 04/20/17 20:42 Acyclovir (Zovirax) 200 mg Q12HR PO 04/19/17 21:00 04/21/17 08:44 Cefepime HCl 2000 mg/Sodium Chloride 100 ml @ 200 mls/hr Q8H IV 04/20/17 09:00 04/21/17 00:23 Acetaminophen (Tylenol) 650 mg Q4H PRN PO fever or premedicate 04/20/17 18:30 04/21/17 08:44 Vancomycin HCl 2000 mg/Sodium Chloride 520 ml @ 250 mls/hr Q8H IV 04/21/17 03:00 04/21/17 02:40 Micafungin Sodium 100 mg/Sodium Chloride 100 ml @ 100 mls/hr Q24H IV 04/20/17 22:45 04/20/17 23:03 Objective Remarks GENERAL: Young man, lying in bed, fatigued. SKIN: Warm and dry. no rash. no lesion on right thigh. HEAD: Normocephalic. EYES: no injection or drainage. NECK: Supple, trachea midline. CARDIOVASCULAR: tachy, regular rhythm. RESPIRATORY: Breath sounds equal bilaterally. No accessory muscle use. GASTROINTESTINAL: Abdomen soft, non-tender, nondistended. EXTREMITIES: No cyanosis. MUSCULOSKELETAL: Adequate muscle tone. NEUROLOGICAL: awake and alert, normal speech. moving all extremities. Assessment/Plan Problem List: (1) Neutropenic sepsis ICD Codes: A41.9 - Sepsis, unspecified organism; D70.9 - Neutropenia, unspecified Status: Resolved Plan: --Blood cultures, 04/20, +GPC --on Cefepime, Vanco, Acyclovir, Micafungin --cxr--no acute disease --u/a--mixed GP clara (2) Pancytopenia ICD Codes: D61.818 - Other pancytopenia Plan: --due to chemotherapy --transfuse irradiated CMV negative blood products as needed. (3) AML (acute myelogenous leukemia) ICD Codes: C92.00 - Acute myeloblastic leukemia, not having achieved remission Status: Chronic (4) Generalized pain ICD Codes: R52 - Pain, unspecified (5) right thigh burning sensation Plan: --unclear etiology --differential includes Shingles vs. meralgia paresthetica vs muscle spasms vs other. Assessment 27y/o male with AML, admitted with pancytopenia, generalized weakness. Plan 1. give 1 unit pRBC and 1unit platelets today 2. increase fluids to 125cc/hr 3. increase Acyclovir to 800mg 5x/day 4. obtain repeat blood cultures for continued fever and + GPC in BC from 04/20 Attending Statement The exam, history, and the medical decision-making described in the above note were completed with the assistance of the mid-level provider. I reviewed and agree with the findings presented. I attest that I had a [id number] encounter with the patient on the same day, and personally performed and documented my assessment and findings in the medical record Febrile Neutropenia--persistent high grade fevers blood cx positive for gram positive cocci 1/2 rpeat blood cx continue Vancomycin, Cefepime, Micafungin Severe anemia--transfuse to keep Hb> 7--irradiated blood products Severe thrombocytopenia- will try to keep PLT count > 20 in the setting of neutropenic sepsis check daily DIC profile--give cryo if fibrinogen less than 150 right thigh burning sensation but no apparent rash acyclovir 400mg po TID Hyperbilirubinemia- check bili components in am --check LDH/haptoglobin and Direct Chong test acutely ill/complicated patient with AML close monitoring d/w rn o/n events reviewed Problem Qualifiers (1) AML (acute myelogenous leukemia): Qualified Codes: C92.01 - Acute myeloblastic leukemia, in remission Fartun Pagan Apr 21, 2017 09:16 Joey Santoyo MD Apr 21, 2017 22:25
--- NOTE | 2017-04-21 14:22 | HHI.PR ---
Subjective Remarks Fevers remain. Downward trend and white blood cell count, hemoglobin, and platelets. Platelet transfusion ordered again today. Objective Vital Signs Date Time Temp Pulse Resp B/P (MAP) Pulse Ox O2 Delivery O2 Flow Rate FiO2 04/21/17 13:30 93 04/21/17 11:21 119 04/21/17 10:55 100.4 122 20 131/66 93 04/21/17 09:32 101.6 118 24 121/59 (79) 91 04/21/17 08:07 102.4 130 24 93/44 (60) 95 04/21/17 05:18 99.8 114 15 129/76 (93) 98 04/21/17 03:46 100.3 04/21/17 02:30 101.5 124 18 116/54 (74) 98 04/21/17 00:28 100.9 118 16 97 04/20/17 23:12 102.8 117 16 128/58 (81) 97 04/20/17 22:49 119 04/20/17 21:45 102.0 128 16 138/55 (82) 96 04/20/17 20:40 101.3 120 16 120/57 (78) 96 04/20/17 19:35 20 04/20/17 18:40 18 04/20/17 18:40 18 04/20/17 18:00 102.1 04/20/17 16:50 101.4 76 18 117/53 (74) I/O 04/20/17 04/20/17 04/20/17 04/21/17 04/21/17 04/21/17 07:00 15:00 23:00 07:00 15:00 23:00 Intake Total 1315.5 ml 2405 ml 1900 ml Output Total 2580 ml 600 ml Balance -1264.5 ml 1805 ml 1900 ml Intake Oral 600 ml IV Total 522.5 ml 2405 ml 1900 ml Platelets 193 ml Output Urine Total 2580 ml 600 ml Result Diagram: 04/21/1750904/21/17 0510 Objective Remarks GENERAL: A&Ox3 SKIN: Warm and dry. HEAD: Normocephalic. EYES: No scleral icterus. No injection or drainage. NECK: Supple, trachea midline. No JVD or lymphadenopathy. CARDIOVASCULAR: Regular rate and rhythm without murmurs, gallops, or rubs. RESPIRATORY: Breath sounds equal bilaterally. No accessory muscle use. GASTROINTESTINAL: Abdomen soft, non-tender, nondistended. MUSCULOSKELETAL: No cyanosis, or edema. BACK: Nontender without obvious deformity. No CVA tenderness. A/P Problem List: (1) Neutropenic sepsis ICD Code: A41.9 - Sepsis, unspecified organism; D70.9 - Neutropenia, unspecified Status: Resolved (2) Pancytopenia ICD Code: D61.818 - Other pancytopenia (3) Generalized pain ICD Code: R52 - Pain, unspecified (4) Thrombocytopenia ICD Code: D69.6 - Thrombocytopenia, unspecified Status: Acute (5) Neutropenia ICD Code: D70.9 - Neutropenia, unspecified Status: Acute (6) AML (acute myelogenous leukemia) ICD Code: C92.00 - Acute myeloblastic leukemia, not having achieved remission Status: Chronic Assessment and Plan Assessment and Plan 27-year-old male admitted with Neutropenic Fever with Sepsis and Pancytopenia, who has underlying AML. Continue to follow fevers. Continue antibiotics. Transfusions as needed. Monitor for any signs of progression of sepsis. Pancytopenia Neutropenic Fever AML Generalized Pain Remain on Bactrim, Cipro, and Acyclovir Continue Vancomycin Continue Cefepime Follow blood and urine cultures Hematology/Oncology following Replace PRBC and Platelets as needed Continue Pain treatments Follow vital signs closely DVT PPx SCDs Anticoagulation on hold due to degree of anemia and high bleed risks Problem Qualifiers (1) Neutropenia: Qualified Codes: D70.1 - Agranulocytosis secondary to cancer chemotherapy; T45.1X5A - Adverse effect of antineoplastic and immunosuppressive drugs, initial encounter (2) AML (acute myelogenous leukemia): Qualified Codes: C92.01 - Acute myeloblastic leukemia, in remission Nilson Hernandez MD Apr 21, 2017 14:22
[2017-04-21] MEDS: SODIUM CHLOR 0.9% 1000 ML INJ 1,000 ML IV SCH ×2 (14:38→22:17)
--- NOTE | 2017-04-21 15:37 | PD.CONS ---
History of Present Illness Service Infectious Disease Consult Requested By Nash Brock Reason for Consult Evaluate patient with fever, neutropenia and (+) BC Primary Care Physician Catina Brian MD Diagnoses: History of Present Illness Patient seen and examined. records reviewed. Patient is a 27-year-old male, with Dx of AML, went into remission after induction chemo last December 2016, has been on his second cycle of consolidation chemo, presented to the hospital for evaluation of blisters in his mouth and complaints of diffuse body aches and subjective fevers. He denies any respiratory, GI or complaints. He presented to the ED and was found to have neutropenia and severe thrombocytopenia. He did not have any bleeding at that time. Starting 04/19, he has developed fevers, and has been febrile. He was started on empiric Abx for fever and neutropenia. Currently on Vancomycin, Cefepime, Micafungin and Acyclovir. His mouth sores are gone. Still C/O diffuse body aches. He has a port that was placed December 2016, and has not had any problem with its use. One BC drawn from the post is not reported as growing GPC in clusters. Infectious Disease consultation has been requested to evaluate patient with fever, neutropenia and positive BC. Review of Systems Constitutional: COMPLAINS OF: Fatigue, Fever, Chills Eyes: DENIES: Eye pain Ears, nose, mouth, throat: COMPLAINS OF: Oral lesions, DENIES: Vertigo, Nasal discharge, Throat pain, Ear Pain, Sinus Pain Respiratory: DENIES: Cough, Sputum production, Shortness of breath Cardiovascular: DENIES: Chest pain, Palpitations, Syncope Gastrointestinal: DENIES: Abdominal pain, Constipation, Diarrhea, Nausea, Vomiting, Difficulty Swallowing Genitourinary: DENIES: Urgency, Dysuria Musculoskeletal: COMPLAINS OF: Muscle aches, DENIES: Back pain, Neck pain Integumentary: DENIES: Pruritus, Rash Immunologic/allergic: DENIES: Urticaria Neurologic: DENIES: Headache, Localized weakness Psychiatric: DENIES: Hallucinations Past Family Social History Allergies: Coded Allergies: No Known Allergies (Verified Allergy, Unknown, 04/18/17) Past Medical History AML, S/P induction, now on consolidation chemo. Upper GI bleed Esophageal ulcer and [place] esophagitis Past Surgical History Port placement Reported Medications I attest that I obtained, updated or reviewed the home and current medications. Reported Meds & Active Scripts Active Klonopin (Clonazepam) 0.5 Mg Tab 0.5 Mg PO HS Endocet (Oxycodone-Acetaminophen) 10-325 mg Tab 1 Tab PO Q6HR Sucralfate Liq (Sucralfate) 1 Gram/10 Ml Erin 1 Gm PO ACHS 30 Days Reported Cytarabine 2 G/20 ml Vial (Cytarabine/Pf) 2 Gram/20 Ml (100 Mg/Ml) Vial 1 Injection IV MONTHLY Active Ordered Medications Current Medications Medications (Trade) Dose Ordered Sig/Emma Route Start Time Stop Time Status Last Admin Sodium Chloride 1,000 ml @ 125 mls/hr Q8H IV 04/18/17 12:00 04/21/17 14:38 (NS Flush) 2 ml UNSCH PRN IV FLUSH 04/18/17 11:45 (NS Flush) 2 ml BID IV FLUSH 04/18/17 21:00 04/20/17 08:43 (Restoril) 15 mg HS PRN PO 04/18/17 11:45 (Narcan Inj) 0.4 mg UNSCH PRN IV PUSH 04/18/17 11:45 (Rika-Colace) 1 tab BID PO 04/18/17 21:00 04/21/17 08:43 (Milk Of Magnesia Liq) 30 ml Q12H PRN PO 04/18/17 11:45 (Senokot) 17.2 mg Q12H PRN PO 04/18/17 11:45 (Dulcolax Supp) 10 mg DAILY PRN RECTAL 04/18/17 11:45 (Lactulose Liq) 30 ml DAILY PRN PO 04/18/17 11:45 (Carafate Liq) 1 gm ACHS PO 04/18/17 12:30 04/21/17 08:43 Patient Own Medication PT OWN MED: CYTARAB... Q30D IV 04/18/17 12:30 Future Hold (Dilaudid Pf Inj) 0.5 mg Q4H PRN IV PUSH 04/18/17 12:30 Future Hold 04/21/17 06:34 (Zofran Inj) 4 mg Q6H PRN IV PUSH 04/18/17 22:00 04/21/17 06:31 (Compazine Inj) 10 mg Q6H PRN IV 04/19/17 00:45 04/21/17 08:48 (Magic Mouthwash Adult Liq) 10 ml QID PO 04/19/17 00:45 04/20/17 20:42 Cefepime HCl 2000 mg/Sodium Chloride 100 ml @ 200 mls/hr Q8H IV 04/20/17 09:00 04/21/17 09:00 Pharmacy Profile Note 0 ml @ 0 mls/hr UNSCH OTHER 04/20/17 18:30 (Tylenol) 650 mg Q4H PRN PO 04/20/17 18:30 04/21/17 12:52 Vancomycin HCl 2000 mg/Sodium Chloride 520 ml @ 250 mls/hr Q8H IV 04/21/17 03:00 04/21/17 14:39 Miscellaneous Information SPECIFIC LAB TO BE JASKARAN... ONCE ONCE .XX 04/21/17 18:45 04/21/17 18:46 Micafungin Sodium 100 mg/Sodium Chloride 100 ml @ 100 mls/hr Q24H IV 04/20/17 22:45 04/20/17 23:03 Sodium Chloride 250 ml @ 15 mls/hr ONCE ONCE IV 04/21/17 08:15 04/22/17 00:54 04/21/17 08:15 (Zovirax) 800 mg 5 TIMES A DAY PO 04/21/17 14:00 04/21/17 14:37 (Roxicodone) 10 mg Q6H PRN PO 04/21/17 09:15 04/21/17 11:12 Family History Unremarkable Social History Lives alone No smoking Occ ETOH use No illicit drugs Physical Exam Vital Signs Vital Signs Date Time Temp Pulse Resp B/P (MAP) Pulse Ox O2 Delivery O2 Flow Rate FiO2 04/21/17 13:30 93 04/21/17 12:00 100.4 113 20 129/51 (77) 93 04/21/17 11:21 119 04/21/17 10:55 100.4 122 20 131/66 93 04/21/17 09:32 101.6 118 24 121/59 (79) 91 04/21/17 08:07 102.4 130 24 93/44 (60) 95 04/21/17 05:18 99.8 114 15 129/76 (93) 98 04/21/17 03:46 100.3 04/21/17 02:30 101.5 124 18 116/54 (74) 98 04/21/17 00:28 100.9 118 16 97 04/20/17 23:12 102.8 117 16 128/58 (81) 97 04/20/17 22:49 119 04/20/17 21:45 102.0 128 16 138/55 (82) 96 04/20/17 20:40 101.3 120 16 120/57 (78) 96 04/20/17 19:35 20 04/20/17 18:40 18 04/20/17 18:40 18 04/20/17 18:00 102.1 04/20/17 16:50 101.4 76 18 117/53 (74) Physical Exam GENERAL: Patient is an obese, well-developed male, awake and alert, not in respiratory distress. Currently does not look toxic appearing SKIN: Warm and dry. No generalized rash, no ecchymoses and no evidence of embolic lesions. HEAD: Atraumatic. Normocephalic. No temporal wasting, or tenderness. EYES: [place] conjunctiva. No petechia or hemorrhage. Pupils equal, round and reactive to light. Extraocular movements full and intact. No scleral icterus. No injection or drainage. EARS, NOSE AND THROAT: Nose without bleeding or purulent nasal discharge. No sinus tenderness. Mucous membranes pink and moist. White coating on his tongue, no ulcers noted NECK: Trachea midline. Supple and not tender, no meningeal signs CARDIOVASCULAR: Regular rate and rhythm. No murmurs, rubs or gallops heard RESPIRATORY: Clear to auscultation. Breath sounds equal bilaterally. No rales , wheezing or rhonchi. Decreased at bases ABDOMEN: Soft, non-tender, nondistended. Bowel sounds present and normoactive. No guarding. No rebound. No organomegaly. EXTREMITIES: No clubbing, cyanosis, or edema.No joint effusion, has good ROM. No calf tenderness. Well perfused and warm. NEUROLOGICAL: Awake and alert. Cranial nerves grossly intact. Motor grossly within normal limits. PSYCHIATRIC: Normal affect, calm and cooperative. LINE: Port in R upper chest, with no evidence of infection Laboratory Laboratory Tests Test 04/21/17 05:10 White Blood Count 0.1 Red Blood Count 2.86 Hemoglobin 7.5 Hematocrit 21.8 Mean Corpuscular Volume 76.3 Mean Corpuscular Hemoglobin 26.1 Mean Corpuscular Hemoglobin Concent 34.3 Red Cell Distribution Width 17.5 Platelet Count 9 Mean Platelet Volume 8.1 CBC Comment AUTO DIFF Differential Total Cells Counted 10 Lymphocytes % 90 Monocytes % 10 Neutrophils # (Manual) 0.0 Differential Comment FINAL DIFF MANUAL Platelet Estimate RARE Platelet Morphology Comment NORMAL Blood Urea Nitrogen 10 Creatinine 0.83 Random Glucose 104 Total Protein 6.6 Albumin 2.7 Calcium Level 8.5 Alkaline Phosphatase 68 Aspartate Amino Transf (AST/SGOT) 10 Alanine Aminotransferase (ALT/SGPT) 36 Total Bilirubin 2.3 Sodium Level 131 Potassium Level 3.6 Chloride Level 97 Carbon Dioxide Level 25.7 Anion Gap 8 Estimat Glomerular Filtration Rate 113 Date/Time Source Procedure Growth Status 04/21/17 13:48 Blood Peripheral Aerobic Blood Culture Pending Received 04/21/17 13:48 Blood Peripheral Anaerobic Blood Culture Pending Received 04/20/17 10:30 Urine Clean Catch Urine Culture - Final 50-100,000 CFU/ML MIXED GRAM POSITIVE... Complete Result Diagram: 04/21/17 0510 04/21/17 0510 Imaging RADIOLOGY STUDIES/FILMS REVIEWED Chest X-Ray 04/20/17 0000 Signed Impressions: Service Date/Time: Thursday, April 20, 2017 10:06 - CONCLUSION: No acute cardiopulmonary process. Bean Dugan MD Assessment and Plan Assessment and Plan IMPRESSION Neutropenia fevers, S/P second cycle consolidation chemo for AML One (+) BC with GPC, from line AML Thrombocytopenia post chemo RECOMMENDATION Agree with current management On Vancomycin which will cover the GPC in BC On Cefepime and Micafungin ALso on Acyclovir Follow C/S Monitor temps Follow counts Monitor progress I will follow along with you Thank you for this consultation Discussed Condition With Explained plan to the patient D/W H Courtney Natarajan MD Apr 21, 2017 15:37
[2017-04-21] MEDS ORDERED: PANTOPRAZOLE SODIUM 40 MG VIAL IV ONE (17:15)
[2017-04-21] MEDS ORDERED: HYDROmorphone HCL PF 2 MG/ML VIAL IV ONE (17:15)
[2017-04-21 18:05] LABS: BLOOD GAS BASE EXCESS 3.3 mmol/L (-2-2); BLOOD GAS CARBOXYHEMOGLOBIN 2.3 % (0-4); BLOOD GAS HCO3 27 mmol/L (22-26); BLOOD GAS METHEMOGLOBIN 1.2 % (0-2); BLOOD GAS O2 HGB SATURATION 93 % (90-100); BLOOD GAS OXYGEN CONTENT 10.3 Vol % (12.0-20.0); BLOOD GAS PCO2 41 mmHg (38-42); BLOOD GAS PO2 78 mmHg (61-120); BLOOD GAS TOTAL HGB 7.8 G/DL (12.0-16.0); CRITICAL VALUE NO; DRAW SITE LT RADIAL; LITER FLOW 3 L/M; NUMBER OF ARTERIAL PUNCTURES 1; OXYGEN DEVICE NASAL CANNULA; STAT YES; TEMP CORR TO 98.6; ULNAR PULSE PRESENT
[2017-04-21 18:43] LABS: INTERNATIONAL NORMALIZED RATIO 1.3 RATIO; PROTHROMBIN TIME - PATIENT 12.7 SEC (9.8-11.6)
[2017-04-21] MEDS ORDERED: PHARMACY ORDERED LAB ONE (18:45)
[2017-04-21] MEDS ORDERED: diphenhydrAMINE HCL 25 MG CAP PO PRN (21:45)
[2017-04-21] MEDS ORDERED: HYDROmorphone HCL PF 2 MG/ML VIAL IV PUSH ONE (22:00)
[2017-04-21] MEDS: MICAFUNGIN INJ 100 MG in SODIUM CHLORIDE 0.9% INJ 100 ML IV SCH (22:17)
[2017-04-22] VITALS (18 sets, daily range): BP systolic 109–172; BP diastolic 47–97; PULSE 85–120; RESP 15–20; TEMP 98.2–102.2; O2SAT 91–99
[2017-04-22] MEDS: CEFEPIME INJ 2,000 MG in SODIUM CHLORIDE 0.9% INJ 100 ML IV SCH ×3 (01:41→18:40)
[2017-04-22] MEDS ORDERED: HYDROmorphone HCL PF 2 MG/ML VIAL IV PUSH ONE (03:00)
[2017-04-22] MEDS: VANCOMYCIN INJ 2,000 MG in SODIUM CHLORID 0.9% 500 ML INJ 500 ML IV SCH ×3 (04:12→19:29)
[2017-04-22 04:43] LABS: MEAN CELL VOLUME 76.2 FL (80.0-100.0); MEAN CORPUSCULAR HEMOGLOBIN 26.3 PG (27.0-34.0); MEAN CORPUSCULAR HGB CONC 34.5 % (32.0-36.0); RED BLOOD COUNT 2.61 MIL/MM3 (4.50-5.90); RED CELL DISTRIBUTION WIDTH 17.4 % (11.6-17.2); WHITE BLOOD COUNT 0.2 TH/MM3 (4.0-11.0)
[2017-04-22 04:45] LABS: HEMO FLAGS AUTO DIFF; INTERNATIONAL NORMALIZED RATIO 1.3 RATIO; PROTHROMBIN TIME - PATIENT 12.7 SEC (9.8-11.6)
[2017-04-22 04:49] LABS: HEMATOCRIT 19.9 % (39.0-51.0); PLATELET COUNT 11 TH/MM3 (150-450)
[2017-04-22 04:52] LABS: ALT (GPT) 22 U/L (12-78); ANION GAP 6 MEQ/L (5-15); AST (GOT) 7 U/L (15-37); BLOOD UREA NITROGEN 6 MG/DL (7-18); CHLORIDE 102 MEQ/L (98-107); GLOMERULAR FILTRATION RATE 135 ML/MIN (>89); POTASSIUM 3.8 MEQ/L (3.5-5.1); SODIUM (NA) 134 MEQ/L (136-145)
[2017-04-22 04:55] LABS: ALKALINE PHOSPHATASE 57 U/L (45-117); INDIRECT BILIRUBIN 1.7 MG/DL (0.0-0.8); LDH SERUM 117 U/L (87-241); TOTAL BILIRUBIN ADULT 2.5 MG/DL (0.2-1.0)
[2017-04-22] MEDS ORDERED: SODIUM CHLOR 0.9% 250 ML INJ 250 ML IV ONE (05:30)
[2017-04-22] MEDS: PROCHLORPERAZINE INJ 10 MG/2 ML VIAL IV PRN (05:32)
[2017-04-22] MEDS: ACETAMINOPHEN 325 MG TAB PO PRN ×2 (06:42→16:29)
[2017-04-22] MEDS: SUCRALFATE 1 GM/10 ML CUP PO SCH ×4 (08:00→22:37)
[2017-04-22 08:13] LABS: PLATELET ESTIMATE SMEAR RARE (NORMAL); POLYS (SEG NEUTROPHILS) 10 % (16-70); SCAN/DIFF FINAL DIFF MANUAL; WBC DIFF SAMPLE 10
[2017-04-22] MEDS: diphenhydrAMINE HCL 25 MG CAP PO PRN ×2 (08:20→16:29)
[2017-04-22] MEDS: ACYCLOVIR 200 MG CAP PO SCH ×3 (08:21→18:39)
[2017-04-22] MEDS: DOCUSATE SODIUM 50 MG/SENNA 8.6 MG TAB PO SCH ×2 (08:21→21:00)
[2017-04-22] MEDS: SODIUM CHLORIDE 0.9% FLUSH 10 ML FLUSH IV FLUSH SCH ×2 (08:21→22:38)
[2017-04-22] MEDS: NYSTAT/DIPHENHY/LIDO MOUTHWASH (Adult) 120ML PO SCH ×4 (08:21→21:00)
--- NOTE | 2017-04-22 10:15 | PD.CONS ---
HPI History of Present Illness This is a 27 year old male with AML who presented with mouth sores, "I just felt like I should come in." GI has been consulted for hematemesis. He threw up copious amounts dark blood yesterday. He has had episode of this before and had EGD 03/03/2017 found esophageal ulcer and gastritis. He denies abd pain, blood in stool, black tarry stool. He finished a round of chemo about 2 weeks ago and his PLT have dropped. He is scheduled to finish chemo and return to work in May. (Shelley Piña) PFSH Past Medical History AML, completed chemotherapy this month. Upper GI bleed Esophageal ulcer and Ladan esophagitis Past Surgical History Port placement. (Shelley Piña) Coded Allergies: No Known Allergies (Verified Allergy, Unknown, 04/18/17) Family History Healthy Social History No tobacco, occasional alcohol. Denies illicit drugs. (Shelley Piña) Review of Systems Constitutional: COMPLAINS OF: Fever Eyes: DENIES: Blurred vision Ears, nose, mouth, throat: DENIES: Hearing loss Respiratory: DENIES: Cough Cardiovascular: DENIES: Chest pain Gastrointestinal: COMPLAINS OF: Nausea, Vomiting, Hematemesis, DENIES: Abdominal pain, Black stools, Bloody stools Genitourinary: DENIES: Urinary incontinence Musculoskeletal: DENIES: Joint Swelling Integumentary: DENIES: Jaundice Neurologic: DENIES: Abnormal gait Psychiatric: DENIES: Confusion (Shelley Piña) GI Exam Vitals I&O Vital Signs Date Time Temp Pulse Resp B/P (MAP) Pulse Ox O2 Delivery O2 Flow Rate FiO2 04/22/17 09:32 99.4 99 18 144/80 97 04/22/17 09:00 101.0 109 20 135/68 94 04/22/17 08:31 93 Room Air 04/22/17 08:25 101.1 111 20 132/61 (84) 93 04/22/17 06:48 Nasal Cannula 3.00 Humidified 04/22/17 06:44 101.3 120 16 172/77 (108) 93 04/22/17 06:15 100.3 115 04/22/17 05:45 99.6 106 16 144/97 (113) 95 04/22/17 03:05 100.1 99 18 141/61 99 04/22/17 02:36 100.0 99 16 135/59 98 04/22/17 02:03 98.9 99 15 140/64 98 04/22/17 02:00 2.00 04/22/17 01:42 98.2 100 18 138/66 98 04/22/17 01:22 98.2 102 18 140/63 98 04/22/17 01:07 99.8 101 16 139/58 97 04/21/17 23:56 99.0 110 16 122/57 97 04/21/17 23:40 99.5 112 18 124/68 97 04/21/17 23:30 Nasal Cannula 2.50 04/21/17 23:22 98.2 112 17 131/66 98 04/21/17 21:00 99.3 110 16 130/54 (79) 97 04/21/17 20:40 Nasal Cannula 3.50 04/21/17 20:20 110 04/21/17 19:39 99.0 111 16 115/60 (78) 96 04/21/17 17:29 103.1 120 20 122/55 (77) 80 04/21/17 13:30 93 04/21/17 12:00 100.4 113 20 129/51 (77) 93 04/21/17 11:21 119 04/21/17 10:55 100.4 122 20 131/66 93 I/O 04/21/17 04/21/17 04/21/17 04/22/17 04/22/17 04/22/17 07:00 15:00 23:00 07:00 15:00 23:00 Intake Total 2405 ml 2315 ml 3009 ml 1044 ml Output Total 600 ml 1200 ml 1725 ml Balance 1805 ml 2315 ml 1809 ml -681 ml Intake Oral 720 ml 480 ml IV Total 2405 ml 1900 ml 2100 ml 120 ml Packed Cells 400 ml FFP 439 ml Platelets 189 ml Blood Product IV Normal Saline Flush 15 ml 5 ml Output Urine Total 600 ml 1200 ml 1725 ml # Bowel Movements 1 Imaging Last Impressions Chest X-Ray 04/20/17 0000 Signed Impressions: Service Date/Time: Thursday, April 20, 2017 10:06 - CONCLUSION: No acute cardiopulmonary process. Bean Dugan MD Laboratory Test 04/21/17 17:55 04/21/17 18:05 04/21/17 23:20 04/22/17 04:05 Blood Gas Puncture Site LT RADIAL Blood Gas Patient Temperature 98.6 Blood Gas HCO3 27 mmol/L Blood Gas Base Excess 3.3 mmol/L Blood Gas Oxygen Saturation 93 % Arterial Blood pH 7.44 Arterial Blood Partial Pressure CO2 41 mmHg Arterial Blood Partial Pressure O2 78 mmHg Arterial Blood Oxygen Content 10.3 Vol % Arterial Blood Carboxyhemoglobin 2.3 % Arterial Blood Methemoglobin 1.2 % Blood Gas Hemoglobin 7.8 G/DL Oxygen Delivery Device NASAL CANNULA Blood Gas Liter Flow 3 L/M Prothrombin Time 12.7 SEC 12.7 SEC Prothromb Time International Ratio 1.3 RATIO 1.3 RATIO Activated Partial Thromboplast Time 38.0 SEC 38.0 SEC Fibrinogen 783 mg/dL 783 mg/dL Lactic Acid Level 0.5 mmol/L 0.7 mmol/L Vancomycin Level Trough 10.0 MCG/ML White Blood Count 0.2 TH/MM3 Red Blood Count 2.61 MIL/MM3 Hemoglobin 6.9 GM/DL Hematocrit 19.9 % Mean Corpuscular Volume 76.2 FL Mean Corpuscular Hemoglobin 26.3 PG Mean Corpuscular Hemoglobin Concent 34.5 % Red Cell Distribution Width 17.4 % Platelet Count 11 TH/MM3 Mean Platelet Volume 7.7 FL CBC Comment AUTO DIFF Differential Total Cells Counted 10 Neutrophils % (Manual) 10 % Lymphocytes % 90 % Neutrophils # (Manual) 0.0 TH/MM3 Differential Comment FINAL DIFF MANUAL Platelet Estimate RARE Haptoglobin 269 MG/DL Blood Urea Nitrogen 6 MG/DL Creatinine 0.71 MG/DL Random Glucose 100 MG/DL Total Protein 6.2 GM/DL Albumin 2.4 GM/DL Calcium Level 8.5 MG/DL Alkaline Phosphatase 57 U/L Aspartate Amino Transf (AST/SGOT) 7 U/L Alanine Aminotransferase (ALT/SGPT) 22 U/L Lactate Dehydrogenase 117 U/L Total Bilirubin 2.5 MG/DL Direct Bilirubin 0.8 MG/DL Sodium Level 134 MEQ/L Potassium Level 3.8 MEQ/L Chloride Level 102 MEQ/L Carbon Dioxide Level 26.0 MEQ/L Anion Gap 6 MEQ/L Estimat Glomerular Filtration Rate 135 ML/MIN Indirect Bilirubin 1.7 MG/DL Random Vancomycin Level 5.8 COMMENT Date/Time Source Procedure Growth Status 04/21/17 13:48 Blood Peripheral Aerobic Blood Culture Pending Received 04/21/17 13:48 Blood Peripheral Anaerobic Blood Culture Pending Received 04/20/17 10:30 Urine Clean Catch Urine Culture - Final 50-100,000 CFU/ML MIXED GRAM POSITIVE... Complete Physical Examination HEENT: PERRL; normocephalic; atraumatic; no jaundice. whitish plaque on tongue , no sores seen in mouth CHEST: CTA CARDIAC: RRR ABDOMEN: Soft, obese, nontender; no hepatosplenomegaly; bowel sounds are present in all four quadrants. EXTREMITIES: No clubbing, cyanosis, or edema. SKIN: Normal; no rash; no jaundice. POTLINE MONITOR: No focal deficits; alert and oriented times three. (Shelley Piña) Assessment and Plan Plan ASSESSMENT - hematemesis - episode yesterday. hx esophageal ulcer, could be cause bleeding. EGD 02/2017 found esophageal ulcer and gastritis. his PLT are too low now to do endoscopy. - pancytopenia - on chemo for AML. hem/onc following - neutropenic fevers - ID following, gram + cocci in bcx PLAN - can consider repeat EGD if PLT improves - monitor labs - transfuse as needed - abx per ID - BID PPI This pt seen by myself and Bartolome and this note is written on his behalf (Shelley Piña) Physician Comments Patient seen and examined Agree with above Continue with current supportive care Monitor labs Recommend correcting coagulopathy and thrombocytopenia Recommend PPI Possible endoscopy once patient is deemed to be stable with corrected coagulation factors (Isidro Barragan MD) Shelley Piña Apr 22, 2017 10:15 Isidro Barragan MD Apr 22, 2017 11:37
--- NOTE | 2017-04-22 10:15 | PD.ONC.PN ---
Subjective Subjective Remarks Tmax 101.3 overnight. Patient resting in bed in nad. No cough or shortness of breath. Took O2 off as he didn't like the way it felt in his nose. No diarrhea. Still with body aches. Objective Data Date Time Temp Pulse Resp B/P (MAP) Pulse Ox O2 Delivery O2 Flow Rate FiO2 04/22/17 09:32 99.4 99 18 144/80 97 04/22/17 09:00 101.0 109 20 135/68 94 04/22/17 08:31 93 Room Air 04/22/17 08:25 101.1 111 20 132/61 (84) 93 04/22/17 06:48 Nasal Cannula 3.00 Humidified 04/22/17 06:44 101.3 120 16 172/77 (108) 93 04/22/17 06:15 100.3 115 04/22/17 05:45 99.6 106 16 144/97 (113) 95 04/22/17 03:05 100.1 99 18 141/61 99 04/22/17 02:36 100.0 99 16 135/59 98 04/22/17 02:03 98.9 99 15 140/64 98 04/22/17 02:00 2.00 04/22/17 01:42 98.2 100 18 138/66 98 04/22/17 01:22 98.2 102 18 140/63 98 04/22/17 01:07 99.8 101 16 139/58 97 04/21/17 23:56 99.0 110 16 122/57 97 04/21/17 23:40 99.5 112 18 124/68 97 04/21/17 23:30 Nasal Cannula 2.50 04/21/17 23:22 98.2 112 17 131/66 98 04/21/17 21:00 99.3 110 16 130/54 (79) 97 04/21/17 20:40 Nasal Cannula 3.50 04/21/17 20:20 110 04/21/17 19:39 99.0 111 16 115/60 (78) 96 04/21/17 17:29 103.1 120 20 122/55 (77) 80 04/21/17 13:30 93 04/21/17 12:00 100.4 113 20 129/51 (77) 93 04/21/17 11:21 119 04/21/17 10:55 100.4 122 20 131/66 93 04/22/17 04/22/17 04/22/17 07:00 15:00 23:00 Intake Total 1044 ml Output Total 1725 ml Balance -681 ml Result Diagram: 04/22/17 0405 04/22/17 0405 Laboratory Results Laboratory Tests Test 04/21/17 17:55 04/21/17 18:05 04/21/17 23:20 04/22/17 04:05 Blood Gas Puncture Site LT RADIAL Blood Gas Patient Temperature 98.6 Blood Gas HCO3 27 mmol/L Blood Gas Base Excess 3.3 mmol/L Blood Gas Oxygen Saturation 93 % Arterial Blood pH 7.44 Arterial Blood Partial Pressure CO2 41 mmHg Arterial Blood Partial Pressure O2 78 mmHg Arterial Blood Oxygen Content 10.3 Vol % Arterial Blood Carboxyhemoglobin 2.3 % Arterial Blood Methemoglobin 1.2 % Blood Gas Hemoglobin 7.8 G/DL Oxygen Delivery Device NASAL CANNULA Blood Gas Liter Flow 3 L/M Prothrombin Time 12.7 SEC 12.7 SEC Prothromb Time International Ratio 1.3 RATIO 1.3 RATIO Activated Partial Thromboplast Time 38.0 SEC 38.0 SEC Fibrinogen 783 mg/dL 783 mg/dL Lactic Acid Level 0.5 mmol/L 0.7 mmol/L Vancomycin Level Trough 10.0 MCG/ML White Blood Count 0.2 TH/MM3 Red Blood Count 2.61 MIL/MM3 Hemoglobin 6.9 GM/DL Hematocrit 19.9 % Mean Corpuscular Volume 76.2 FL Mean Corpuscular Hemoglobin 26.3 PG Mean Corpuscular Hemoglobin Concent 34.5 % Red Cell Distribution Width 17.4 % Platelet Count 11 TH/MM3 Mean Platelet Volume 7.7 FL CBC Comment AUTO DIFF Differential Total Cells Counted 10 Neutrophils % (Manual) 10 % Lymphocytes % 90 % Neutrophils # (Manual) 0.0 TH/MM3 Differential Comment FINAL DIFF MANUAL Platelet Estimate RARE Haptoglobin 269 MG/DL Blood Urea Nitrogen 6 MG/DL Creatinine 0.71 MG/DL Random Glucose 100 MG/DL Total Protein 6.2 GM/DL Albumin 2.4 GM/DL Calcium Level 8.5 MG/DL Alkaline Phosphatase 57 U/L Aspartate Amino Transf (AST/SGOT) 7 U/L Alanine Aminotransferase (ALT/SGPT) 22 U/L Lactate Dehydrogenase 117 U/L Total Bilirubin 2.5 MG/DL Direct Bilirubin 0.8 MG/DL Sodium Level 134 MEQ/L Potassium Level 3.8 MEQ/L Chloride Level 102 MEQ/L Carbon Dioxide Level 26.0 MEQ/L Anion Gap 6 MEQ/L Estimat Glomerular Filtration Rate 135 ML/MIN Indirect Bilirubin 1.7 MG/DL Random Vancomycin Level 5.8 COMMENT Culture Results Microbiology Date/Time Source Procedure Growth Status 04/21/17 13:48 Blood Peripheral Aerobic Blood Culture Pending Received 04/21/17 13:48 Blood Peripheral Anaerobic Blood Culture Pending Received 04/21/17 13:40 Blood Line Aerobic Blood Culture Pending Received 04/21/17 13:40 Blood Line Anaerobic Blood Culture Pending Received 04/20/17 14:34 Blood Peripheral Aerobic Blood Culture - Preliminary Gram Positive Cocci Resulted 04/20/17 14:34 Blood Peripheral Anaerobic Blood Culture - Preliminary NO GROWTH IN 1 DAY Resulted 04/20/17 10:00 Blood Line Aerobic Blood Culture - Preliminary Gram Positive Cocci Resulted 04/20/17 10:00 Blood Line Anaerobic Blood Culture - Preliminary NO GROWTH IN 1 DAY Resulted 04/20/17 10:30 Urine Clean Catch Urine Culture - Final 50-100,000 CFU/ML MIXED GRAM POSITIVE... Complete Administered Medications Medications (Trade) Dose Ordered Sig/Emma Route PRN Reason Start Time Stop Time Status Last Admin Dose Admin Sodium Chloride 1,000 ml @ 150 mls/hr Q6H40M IV 04/18/17 12:00 04/21/17 22:17 Sodium Chloride (NS Flush) 2 ml BID IV FLUSH 04/18/17 21:00 04/20/17 08:43 Senna/Docusate Sodium (Rika-Colace) 1 tab BID PO 04/18/17 21:00 04/21/17 08:43 Sucralfate (Carafate Liq) 1 gm ACHS PO 04/18/17 12:30 04/21/17 19:40 Hydromorphone HCl (Dilaudid Pf Inj) 0.5 mg Q4H PRN IV PUSH BREAKTHROUGH PAIN 04/18/17 12:30 Future hold 04/21/17 06:34 Ondansetron HCl (Zofran Inj) 4 mg Q6H PRN IV PUSH NAUSEA OR VOMITING 04/18/17 22:00 04/21/17 23:36 Prochlorperazine Edisylate (Compazine Inj) 10 mg Q6H PRN IV SEE LABEL COMMENTS 04/19/17 00:45 04/22/17 05:32 Multi-Ingredient Mouthwash/Gargle (Magic Mouthwash Adult Liq) 10 ml QID PO 04/19/17 00:45 04/20/17 20:42 Cefepime HCl 2000 mg/Sodium Chloride 100 ml @ 200 mls/hr Q8H IV 04/20/17 09:00 04/22/17 08:21 Acetaminophen (Tylenol) 650 mg Q4H PRN PO fever 04/20/17 18:30 04/22/17 06:42 Vancomycin HCl 2000 mg/Sodium Chloride 520 ml @ 250 mls/hr Q8H IV 04/21/17 03:00 Future hold 04/22/17 04:12 Micafungin Sodium 100 mg/Sodium Chloride 100 ml @ 100 mls/hr Q24H IV 04/20/17 22:45 04/21/17 22:17 Oxycodone HCl (Roxicodone) 10 mg Q6H PRN PO pain 1-10 04/21/17 09:15 04/22/17 05:32 Sodium Chloride 250 ml @ 15 mls/hr ONCE ONCE IV 04/21/17 17:45 04/22/17 10:24 04/22/17 01:29 Acyclovir (Zovirax) 400 mg TID PO 04/22/17 09:00 04/22/17 08:21 Diphenhydramine HCl (Benadryl) 25 mg Q4H PRN PO SEE LABEL COMMENTS 04/22/17 05:30 04/22/17 08:20 Objective Remarks GENERAL: Young man, supine in bed in nad. SKIN: Warm and dry. HEAD: Normocephalic. EYES: no injection or drainage. NECK: Supple, trachea midline. CARDIOVASCULAR: mild tachycardia, regular rhythm RESPIRATORY: Breath sounds equal bilaterally. No accessory muscle use. GASTROINTESTINAL: Abdomen soft, non-tender, nondistended. EXTREMITIES: No cyanosis. MUSCULOSKELETAL: Adequate muscle tone. NEUROLOGICAL: awake and alert, normal speech. moving all extremities. Assessment/Plan Problem List: (1) Neutropenic sepsis ICD Codes: A41.9 - Sepsis, unspecified organism; D70.9 - Neutropenia, unspecified Status: Resolved Plan: --BC, 04/21, pending --Blood cultures, 04/20, +GPC --on Cefepime, Vanco, Acyclovir, Micafungin --cxr--no acute disease --u/a--mixed GP clara (2) Pancytopenia ICD Codes: D61.818 - Other pancytopenia Plan: --due to chemotherapy --transfuse irradiated CMV negative blood products as needed. (3) AML (acute myelogenous leukemia) ICD Codes: C92.00 - Acute myeloblastic leukemia, not having achieved remission Status: Chronic (4) Generalized pain ICD Codes: R52 - Pain, unspecified (5) right thigh burning sensation Plan: --unclear etiology --differential includes Shingles vs. meralgia paresthetica vs muscle spasms vs other. Assessment 27y/o male with AML, admitted with pancytopenia, generalized weakness. Plan 1. continue IVF 2. continue abx 3. give pRBC and platelets today Attending Statement The exam, history, and the medical decision-making described in the above note were completed with the assistance of the mid-level provider. I reviewed and agree with the findings presented. I attest that I had a [id number] encounter with the patient on the same day, and personally performed and documented my assessment and findings in the medical record Severe Neutropenia persists -- a few neutrophils noted--perhaps first sign of recovering marrow ANC still 0 continue Vancomycin, Cefepime and Micafungin continue oral acyclovir Repeat blood cultures no growth thus far persistent fevers --? reconstitution syndrome -- Transfusional support for severe anemia and thrombocytopenia keep PLT > 10 oral mucositis- grade 1- magic mouth wash tid no evidence of hemolysis elevated T.bili--indirect abdominal U/S in am right thigh pain deep aching pain no rash d/w rn o/n events reviewed Problem Qualifiers (1) AML (acute myelogenous leukemia): Qualified Codes: C92.01 - Acute myeloblastic leukemia, in remission Fartun Pagan Apr 22, 2017 10:15 Joey Santoyo MD Apr 23, 2017 00:32
[2017-04-22] MEDS: PANTOPRAZOLE SODIUM 40 MG VIAL IV PUSH SCH ×2 (12:46→22:38)
[2017-04-22] MEDS: HYDROmorphone HCL PF 1 MG/ML VIAL IV PUSH PRN ×2 (12:47→18:39)
--- NOTE | 2017-04-22 15:21 | HHI.IDPN ---
Subjective Subjective Remarks Patient is a 27-year-old male, with Dx of AML, went into remission after induction chemo last December 2016, has been on his second cycle of consolidation chemo, presented to the hospital for evaluation of blisters in his mouth and complaints of diffuse body aches and subjective fevers. He denies any respiratory, GI or complaints. He presented to the ED and was found to have neutropenia and severe thrombocytopenia. He did not have any bleeding at that time. Starting 04/19, he has developed fevers, and has been febrile. He was started on empiric Abx for fever and neutropenia. Currently on Vancomycin, Cefepime, Micafungin and Acyclovir. His mouth sores are gone. Still C/O diffuse body aches. He has a port that was placed December 2016, and has not had any problem with its use. One BC drawn from the post is not reported as growing GPC in clusters. Infectious Disease consultation has been requested to evaluate patient with fever, neutropenia and positive BC. Notes reviewed Still with fevers C/O body aches Counts still low Has one new (+) BC No bleeding Antibiotics Current Medications Vancomycin Cefepime Micafungin Acyclovir Medications (Trade) Dose Ordered Sig/Emma Route Start Time Stop Time Status Last Admin Sodium Chloride 1,000 ml @ 83 mls/hr Q12H3M IV 04/18/17 12:00 04/21/17 22:17 (NS Flush) 2 ml UNSCH PRN IV FLUSH 04/18/17 11:45 (NS Flush) 2 ml BID IV FLUSH 04/18/17 21:00 04/20/17 08:43 (Restoril) 15 mg HS PRN PO 04/18/17 11:45 (Narcan Inj) 0.4 mg UNSCH PRN IV PUSH 04/18/17 11:45 (Rika-Colace) 1 tab BID PO 04/18/17 21:00 04/21/17 08:43 (Milk Of Magnesia Liq) 30 ml Q12H PRN PO 04/18/17 11:45 (Senokot) 17.2 mg Q12H PRN PO 04/18/17 11:45 (Dulcolax Supp) 10 mg DAILY PRN RECTAL 04/18/17 11:45 (Lactulose Liq) 30 ml DAILY PRN PO 04/18/17 11:45 (Carafate Liq) 1 gm ACHS PO 04/18/17 12:30 04/21/17 19:40 Patient Own Medication PT OWN MED: CYTARAB... Q30D IV 04/18/17 12:30 Future Hold (Dilaudid Pf Inj) 0.5 mg Q4H PRN IV PUSH 04/18/17 12:30 Future hold 04/22/17 12:47 (Zofran Inj) 4 mg Q6H PRN IV PUSH 04/18/17 22:00 04/21/17 23:36 (Compazine Inj) 10 mg Q6H PRN IV 04/19/17 00:45 04/22/17 05:32 (Magic Mouthwash Adult Liq) 10 ml QID PO 04/19/17 00:45 04/20/17 20:42 Cefepime HCl 2000 mg/Sodium Chloride 100 ml @ 200 mls/hr Q8H IV 04/20/17 09:00 04/22/17 08:21 Pharmacy Profile Note 0 ml @ 0 mls/hr UNSCH OTHER 04/20/17 18:30 (Tylenol) 650 mg Q4H PRN PO 04/20/17 18:30 04/22/17 06:42 Vancomycin HCl 2000 mg/Sodium Chloride 520 ml @ 250 mls/hr Q8H IV 04/21/17 03:00 Future hold 04/22/17 12:46 Micafungin Sodium 100 mg/Sodium Chloride 100 ml @ 100 mls/hr Q24H IV 04/20/17 22:45 04/21/17 22:17 (Roxicodone) 10 mg Q6H PRN PO 04/21/17 09:15 04/22/17 05:32 (Zovirax) 400 mg TID PO 04/22/17 09:00 04/22/17 12:46 Sodium Chloride 250 ml @ 15 mls/hr ONCE ONCE IV 04/22/17 05:30 04/22/17 22:09 (Tylenol) 650 mg Q4H PRN PO 04/22/17 05:30 (Benadryl) 25 mg Q4H PRN PO 04/22/17 05:30 04/22/17 08:20 (Protonix Inj) 40 mg Q12H IV PUSH 04/22/17 11:00 04/22/17 12:46 Miscellaneous Information SPECIFIC LAB TO BE DRAWN:VANCOMYCIN TROUGH DATE TO... ONCE ONCE .XX 04/23/17 02:45 04/23/17 02:46 Lines Port Past Medical History AML, S/P induction, now on consolidation chemo. Upper GI bleed Esophageal ulcer and Ladan esophagitis Past Surgical History Port placement Allergies: Coded Allergies: No Known Allergies (Verified Allergy, Unknown, 04/18/17) Objective . Vital Signs Date Time Temp Pulse Resp B/P (MAP) Pulse Ox O2 Delivery O2 Flow Rate FiO2 04/22/17 13:45 99 04/22/17 12:52 98.6 99 18 136/53 99 04/22/17 09:32 99.4 99 18 144/80 97 04/22/17 09:00 101.0 109 20 135/68 94 04/22/17 08:31 93 Room Air 04/22/17 08:25 101.1 111 20 132/61 (84) 93 04/22/17 08:15 112 04/22/17 06:48 Nasal Cannula 3.00 Humidified 04/22/17 06:44 101.3 120 16 172/77 (108) 93 04/22/17 06:15 100.3 115 04/22/17 05:45 99.6 106 16 144/97 (113) 95 04/22/17 03:05 100.1 99 18 141/61 99 04/22/17 02:36 100.0 99 16 135/59 98 04/22/17 02:03 98.9 99 15 140/64 98 04/22/17 02:00 2.00 04/22/17 01:42 98.2 100 18 138/66 98 04/22/17 01:22 98.2 102 18 140/63 98 04/22/17 01:07 99.8 101 16 139/58 97 04/21/17 23:56 99.0 110 16 122/57 97 04/21/17 23:40 99.5 112 18 124/68 97 04/21/17 23:30 Nasal Cannula 2.50 04/21/17 23:22 98.2 112 17 131/66 98 04/21/17 21:00 99.3 110 16 130/54 (79) 97 04/21/17 20:40 Nasal Cannula 3.50 04/21/17 20:20 110 04/21/17 19:39 99.0 111 16 115/60 (78) 96 04/21/17 17:29 103.1 120 20 122/55 (77) 80 04/22/17 04/22/17 04/23/17 15:00 23:00 07:00 Intake Total 400 ml Balance 400 ml Packed Cells 400 ml . Laboratory Tests Test 04/21/17 05:10 04/22/17 04:05 White Blood Count 0.1 TH/MM3 0.2 TH/MM3 Red Blood Count 2.86 MIL/MM3 2.61 MIL/MM3 Hemoglobin 7.5 GM/DL 6.9 GM/DL Hematocrit 21.8 % 19.9 % Mean Corpuscular Volume 76.3 FL 76.2 FL Mean Corpuscular Hemoglobin 26.1 PG 26.3 PG Mean Corpuscular Hemoglobin Concent 34.3 % 34.5 % Red Cell Distribution Width 17.5 % 17.4 % Platelet Count 9 TH/MM3 11 TH/MM3 Mean Platelet Volume 8.1 FL 7.7 FL CBC Comment AUTO DIFF AUTO DIFF Differential Total Cells Counted 10 10 Lymphocytes % 90 % 90 % Monocytes % 10 % Neutrophils # (Manual) 0.0 TH/MM3 0.0 TH/MM3 Differential Comment FINAL DIFF MANUAL FINAL DIFF MANUAL Platelet Estimate RARE RARE Platelet Morphology Comment NORMAL Neutrophils % (Manual) 10 % Haptoglobin 269 MG/DL Laboratory Tests Test 04/21/17 05:10 04/21/17 18:05 04/22/17 04:05 Blood Urea Nitrogen 10 MG/DL 6 MG/DL Creatinine 0.83 MG/DL 0.71 MG/DL Random Glucose 104 MG/DL 100 MG/DL Total Protein 6.6 GM/DL 6.2 GM/DL Albumin 2.7 GM/DL 2.4 GM/DL Calcium Level 8.5 MG/DL 8.5 MG/DL Alkaline Phosphatase 68 U/L 57 U/L Aspartate Amino Transf (AST/SGOT) 10 U/L 7 U/L Alanine Aminotransferase (ALT/SGPT) 36 U/L 22 U/L Total Bilirubin 2.3 MG/DL 2.5 MG/DL Sodium Level 131 MEQ/L 134 MEQ/L Potassium Level 3.6 MEQ/L 3.8 MEQ/L Chloride Level 97 MEQ/L 102 MEQ/L Carbon Dioxide Level 25.7 MEQ/L 26.0 MEQ/L Anion Gap 8 MEQ/L 6 MEQ/L Estimat Glomerular Filtration Rate 113 ML/MIN 135 ML/MIN Lactic Acid Level 0.5 mmol/L 0.7 mmol/L Lactate Dehydrogenase 117 U/L Direct Bilirubin 0.8 MG/DL Indirect Bilirubin 1.7 MG/DL Microbiology Date/Time Source Procedure Growth Status 04/21/17 13:48 Blood Peripheral Aerobic Blood Culture - Preliminary NO GROWTH IN 1 DAY Resulted 04/21/17 13:48 Blood Peripheral Anaerobic Blood Culture - Preliminary NO GROWTH IN 1 DAY Resulted 04/21/17 13:40 Blood Line Aerobic Blood Culture - Preliminary NO GROWTH IN 1 DAY Resulted 04/21/17 13:40 Blood Line Anaerobic Blood Culture - Preliminary NO GROWTH IN 1 DAY Resulted 04/20/17 14:34 Blood Peripheral Aerobic Blood Culture - Preliminary Gram Positive Cocci Resulted 04/20/17 14:34 Blood Peripheral Anaerobic Blood Culture - Preliminary NO GROWTH IN 2 DAYS Resulted 04/20/17 10:00 Blood Line Aerobic Blood Culture - Preliminary Staph Sp Coagulase Negative Resulted 04/20/17 10:00 Blood Line Anaerobic Blood Culture - Preliminary NO GROWTH IN 2 DAYS Resulted 04/20/17 10:30 Urine Clean Catch Urine Culture - Final 50-100,000 CFU/ML MIXED GRAM POSITIVE... Complete Imaging Last Impressions Chest X-Ray 04/20/17 0000 Signed Impressions: Service Date/Time: Thursday, April 20, 2017 10:06 - CONCLUSION: No acute cardiopulmonary process. Bean Dugan MD Physical Exam GENERAL: Patient is an obese, well-developed male, awake and alert, not in respiratory distress. SKIN: Warm and dry. No generalized rash, no ecchymoses and no evidence of embolic lesions. HEAD: Atraumatic. Normocephalic. No temporal wasting, or tenderness. EYES: [place] conjunctiva. No petechia or hemorrhage. Pupils equal, round and reactive to light. Extraocular movements full and intact. No scleral icterus. No injection or drainage. EARS, NOSE AND THROAT: Nose without bleeding or purulent nasal discharge. No sinus tenderness. Mucous membranes pink and moist. White coating on his tongue, no ulcers noted NECK: Trachea midline. Supple and not tender, no meningeal signs CARDIOVASCULAR: Regular rate and rhythm. No murmurs, rubs or gallops heard RESPIRATORY: Clear to auscultation. Breath sounds equal bilaterally. No rales , wheezing or rhonchi. Decreased at bases ABDOMEN: Soft, non-tender, nondistended. Bowel sounds present and normoactive. No guarding. No rebound. No organomegaly. EXTREMITIES: No clubbing, cyanosis, or edema.No joint effusion, has good ROM. No calf tenderness. Well perfused and warm. NEUROLOGICAL: Awake and alert. Cranial nerves grossly intact. Motor grossly within normal limits. PSYCHIATRIC: Normal affect, calm and cooperative. LINE: Port in R upper chest, with no evidence of infection Assessment & Plan Remarks IMPRESSION Neutropenia fevers, S/P second cycle consolidation chemo for AML Two (+) BC with GPC, ?significance AML Thrombocytopenia post chemo RECOMMENDATION Agree with current management On Vancomycin which will cover the GPC in BC On Cefepime and Micafungin ALso on Acyclovir Follow new C/S Monitor temps Follow counts Monitor progress Courtney Nugent MD Apr 22, 2017 15:21
[2017-04-22] MEDS: ONDANSETRON HCL 4 MG/2 ML VIAL IV PUSH PRN ×2 (16:29→22:43)
--- NOTE | 2017-04-22 17:30 | HHI.PR ---
Subjective Remarks patient continues to have moderate burning pain in the right lateral thigh which is worse with movement. He also has diffuse body aches. Fever of 101 this morning. Objective Vitals Vital Signs Date Time Temp Pulse Resp B/P (MAP) Pulse Ox O2 Delivery O2 Flow Rate FiO2 04/22/17 13:45 99 04/22/17 12:52 98.6 99 18 136/53 99 04/22/17 09:32 99.4 99 18 144/80 97 04/22/17 09:00 101.0 109 20 135/68 94 04/22/17 08:31 93 Room Air 04/22/17 08:25 101.1 111 20 132/61 (84) 93 04/22/17 08:15 112 04/22/17 06:48 Nasal Cannula 3.00 Humidified 04/22/17 06:44 101.3 120 16 172/77 (108) 93 04/22/17 06:15 100.3 115 04/22/17 05:45 99.6 106 16 144/97 (113) 95 04/22/17 03:05 100.1 99 18 141/61 99 04/22/17 02:36 100.0 99 16 135/59 98 04/22/17 02:03 98.9 99 15 140/64 98 04/22/17 02:00 2.00 04/22/17 01:42 98.2 100 18 138/66 98 04/22/17 01:22 98.2 102 18 140/63 98 04/22/17 01:07 99.8 101 16 139/58 97 04/21/17 23:56 99.0 110 16 122/57 97 04/21/17 23:40 99.5 112 18 124/68 97 04/21/17 23:30 Nasal Cannula 2.50 04/21/17 23:22 98.2 112 17 131/66 98 04/21/17 21:00 99.3 110 16 130/54 (79) 97 04/21/17 20:40 Nasal Cannula 3.50 04/21/17 20:20 110 04/21/17 19:39 99.0 111 16 115/60 (78) 96 I/O 04/21/17 04/21/17 04/21/17 04/22/17 04/22/17 04/22/17 07:00 15:00 23:00 07:00 15:00 23:00 Intake Total 2405 ml 2315 ml 3009 ml 1044 ml 400 ml Output Total 600 ml 1200 ml 1725 ml Balance 1805 ml 2315 ml 1809 ml -681 ml 400 ml Intake Oral 720 ml 480 ml IV Total 2405 ml 1900 ml 2100 ml 120 ml Packed Cells 400 ml 400 ml FFP 439 ml Platelets 189 ml Blood Product IV Normal Saline Flush 15 ml 5 ml Output Urine Total 600 ml 1200 ml 1725 ml # Bowel Movements 1 Result Diagram: 04/22/1740404/22/17404 Objective Remarks GENERAL: Well-nourished, well-developed pleasant obese male patient. SKIN: Warm and dry. HEAD: Normocephalic. EYES: No scleral icterus. No injection or drainage. NECK: Supple, trachea midline. No JVD or lymphadenopathy. CARDIOVASCULAR: Regular rate and rhythm without murmurs, gallops, or rubs. RESPIRATORY: Breath sounds equal bilaterally. No accessory muscle use. GASTROINTESTINAL: Abdomen soft, non-tender, nondistended. EXTREMITIES: No cyanosis, or edema. NEUROLOGICAL: Awake, alert, and oriented x 3. Non-focal. A/P Assessment and Plan 27-year-old male admitted with Neutropenic Fever with Sepsis and Pancytopenia, who has underlying AML. Continue to follow fevers. Continue antibiotics. Transfusions as needed. Monitor for any signs of progression of sepsis. Pancytopenia Neutropenic Fever, bacteremia GPC/ sepsis AML Generalized Pain Remain on Bactrim, Cipro, and Acyclovir Continue Vancomycin Continue Cefepime Follow blood and urine cultures Hematology/Oncology following Replace PRBC and Platelets as needed Continue Pain treatments Follow vital signs closely Right thigh pain - suspect meralgia paresthetica Will start Neurontin DVT PPx SCDs Anticoagulation on hold due to degree of anemia and high bleed risks Alice Coppola MD Apr 22, 2017 17:30
[2017-04-22] MEDS: GABAPENTIN 100 MG CAP PO SCH (18:39)
[2017-04-22] MEDS: SODIUM CHLOR 0.9% 1000 ML INJ 1,000 ML IV SCH ×2 (19:28→22:38)
[2017-04-22] MEDS: MICAFUNGIN INJ 100 MG in SODIUM CHLORIDE 0.9% INJ 100 ML IV SCH (22:43)
[2017-04-23] VITALS (11 sets, daily range): BP systolic 111–178; BP diastolic 56–84; PULSE 82–109; RESP 17–20; TEMP 98.1–102; O2SAT 91–96
[2017-04-23] MEDS: PROCHLORPERAZINE INJ 10 MG/2 ML VIAL IV PRN (00:24)
[2017-04-23] MEDS: HYDROmorphone HCL PF 1 MG/ML VIAL IV PUSH PRN ×4 (00:26→20:41)
[2017-04-23] MEDS: CEFEPIME INJ 2,000 MG in SODIUM CHLORIDE 0.9% INJ 100 ML IV SCH ×3 (01:52→18:37)
[2017-04-23] MEDS: SODIUM CHLOR 0.9% 1000 ML INJ 1,000 ML IV SCH ×2 (01:59→20:43)
[2017-04-23] MEDS ORDERED: PHARMACY ORDERED LAB ONE (02:45)
[2017-04-23] MEDS: VANCOMYCIN INJ 2,000 MG in SODIUM CHLORID 0.9% 500 ML INJ 500 ML IV SCH ×2 (04:15→11:27)
[2017-04-23] MEDS: ACETAMINOPHEN 325 MG TAB PO PRN ×4 (05:51→23:34)
[2017-04-23] MEDS: NYSTAT/DIPHENHY/LIDO MOUTHWASH (Adult) 120ML PO SCH ×4 (08:35→20:57)
[2017-04-23] MEDS: ACYCLOVIR 200 MG CAP PO SCH ×3 (08:51→18:10)
[2017-04-23] MEDS: GABAPENTIN 100 MG CAP PO SCH ×3 (08:51→18:10)
[2017-04-23] MEDS: DOCUSATE SODIUM 50 MG/SENNA 8.6 MG TAB PO SCH ×3 (08:51→21:00)
[2017-04-23] MEDS: SUCRALFATE 1 GM/10 ML CUP PO SCH ×5 (08:51→21:00)
[2017-04-23] MEDS: SODIUM CHLORIDE 0.9% FLUSH 10 ML FLUSH IV FLUSH SCH ×2 (08:53→20:42)
[2017-04-23 09:22] LABS: MEAN CELL VOLUME 77.7 FL (80.0-100.0); MEAN CORPUSCULAR HEMOGLOBIN 27.5 PG (27.0-34.0); MEAN CORPUSCULAR HGB CONC 35.5 % (32.0-36.0); RED BLOOD COUNT 2.44 MIL/MM3 (4.50-5.90); RED CELL DISTRIBUTION WIDTH 18.2 % (11.6-17.2); WHITE BLOOD COUNT 0.3 TH/MM3 (4.0-11.0)
[2017-04-23 09:27] LABS: HEMO FLAGS AUTO DIFF
[2017-04-23 09:31] LABS: PLATELET COUNT 19 TH/MM3 (150-450)
[2017-04-23 09:38] LABS: ALT (GPT) 17 U/L (12-78); ANION GAP 7 MEQ/L (5-15); AST (GOT) 5 U/L (15-37); BICARBONATE 27.3 MEQ/L (21.0-32.0); BLOOD UREA NITROGEN 9 MG/DL (7-18); CHLORIDE 103 MEQ/L (98-107); GLOMERULAR FILTRATION RATE 145 ML/MIN (>89); POTASSIUM 3.4 MEQ/L (3.5-5.1); SODIUM (NA) 137 MEQ/L (136-145)
[2017-04-23 09:41] LABS: ALKALINE PHOSPHATASE 51 U/L (45-117); TOTAL BILIRUBIN ADULT 0.9 MG/DL (0.2-1.0)
[2017-04-23 10:03] LABS: NEUTROPHIL # MANUAL DIFF 0.1 TH/MM3 (1.8-7.7); PLATELET ESTIMATE SMEAR RARE (NORMAL); PLATELET MORPHOLOGY NORMAL (NORMAL); POLYS (SEG NEUTROPHILS) 24 % (16-70); WBC DIFF SAMPLE 25
[2017-04-23 10:04] LABS: SCAN/DIFF FINAL DIFF MANUAL
[2017-04-23] MEDS: PANTOPRAZOLE SODIUM 40 MG VIAL IV PUSH SCH ×2 (11:31→23:35)
[2017-04-23] MEDS ORDERED: ACETAMINOPHEN 325 MG TAB PO PRN (11:45)
[2017-04-23] MEDS ORDERED: SODIUM CHLOR 0.9% 250 ML INJ 250 ML IV ONE (11:45)
--- NOTE | 2017-04-23 12:48 | HHI.IDPN ---
Subjective Subjective Remarks Patient is a 27-year-old male, with Dx of AML, went into remission after induction chemo last December 2016, has been on his second cycle of consolidation chemo, presented to the hospital for evaluation of blisters in his mouth and complaints of diffuse body aches and subjective fevers. He denies any respiratory, GI or complaints. He presented to the ED and was found to have neutropenia and severe thrombocytopenia. He did not have any bleeding at that time. Starting 04/19, he has developed fevers, and has been febrile. He was started on empiric Abx for fever and neutropenia. Currently on Vancomycin, Cefepime, Micafungin and Acyclovir. His mouth sores are gone. Still C/O diffuse body aches. He has a port that was placed December 2016, and has not had any problem with its use. One BC drawn from the post is not reported as growing GPC in clusters. Infectious Disease consultation has been requested to evaluate patient with fever, neutropenia and positive BC. Notes reviewed Still with fevers Same complaints BC with Coag Neg Staph - no ID yet Pancytopenic Antibiotics Current Medications Vancomycin Cefepime Micafungin Acyclovir Medications (Trade) Dose Ordered Sig/Emma Route Start Time Stop Time Status Last Admin Sodium Chloride 1,000 ml @ 83 mls/hr Q12H3M IV 04/18/17 12:00 04/22/17 22:38 (NS Flush) 2 ml UNSCH PRN IV FLUSH 04/18/17 11:45 (NS Flush) 2 ml BID IV FLUSH 04/18/17 21:00 04/23/17 08:53 (Restoril) 15 mg HS PRN PO 04/18/17 11:45 (Narcan Inj) 0.4 mg UNSCH PRN IV PUSH 04/18/17 11:45 (Rika-Colace) 1 tab BID PO 04/18/17 21:00 04/23/17 08:51 (Milk Of Magnesia Liq) 30 ml Q12H PRN PO 04/18/17 11:45 (Senokot) 17.2 mg Q12H PRN PO 04/18/17 11:45 (Dulcolax Supp) 10 mg DAILY PRN RECTAL 04/18/17 11:45 (Lactulose Liq) 30 ml DAILY PRN PO 04/18/17 11:45 (Carafate Liq) 1 gm ACHS PO 04/18/17 12:30 04/23/17 08:51 Patient Own Medication PT OWN MED: CYTARAB... Q30D IV 04/18/17 12:30 Future Hold (Dilaudid Pf Inj) 0.5 mg Q4H PRN IV PUSH 04/18/17 12:30 Future hold 04/23/17 05:37 (Zofran Inj) 4 mg Q6H PRN IV PUSH 04/18/17 22:00 04/22/17 22:43 (Compazine Inj) 10 mg Q6H PRN IV 04/19/17 00:45 04/23/17 00:24 (Magic Mouthwash Adult Liq) 10 ml QID PO 04/19/17 00:45 04/20/17 20:42 Cefepime HCl 2000 mg/Sodium Chloride 100 ml @ 200 mls/hr Q8H IV 04/20/17 09:00 04/23/17 08:49 Pharmacy Profile Note 0 ml @ 0 mls/hr UNSCH OTHER 04/20/17 18:30 (Tylenol) 650 mg Q4H PRN PO 04/20/17 18:30 04/23/17 05:51 Vancomycin HCl 2000 mg/Sodium Chloride 520 ml @ 250 mls/hr Q8H IV 04/21/17 03:00 Future hold 04/23/17 11:27 Micafungin Sodium 100 mg/Sodium Chloride 100 ml @ 100 mls/hr Q24H IV 04/20/17 22:45 04/22/17 22:43 (Roxicodone) 10 mg Q6H PRN PO 04/21/17 09:15 04/23/17 11:35 (Zovirax) 400 mg TID PO 04/22/17 09:00 04/23/17 08:51 (Tylenol) 650 mg Q4H PRN PO 04/22/17 05:30 (Protonix Inj) 40 mg Q12H IV PUSH 04/22/17 11:00 04/23/17 11:31 (Neurontin) 100 mg TID PO 04/22/17 18:00 04/23/17 08:51 Sodium Chloride 250 ml @ 15 mls/hr ONCE ONCE IV 04/23/17 11:45 04/24/17 04:24 (Tylenol) 650 mg Q4H PRN PO 04/23/17 11:45 (Benadryl) 25 mg Q4H PRN PO 04/23/17 11:45 Lines Port Past Medical History AML, S/P induction, now on consolidation chemo. Upper GI bleed Esophageal ulcer and [place] esophagitis Past Surgical History Port placement Allergies: Coded Allergies: No Known Allergies (Verified Allergy, Unknown, 04/18/17) Objective . Vital Signs Date Time Temp Pulse Resp B/P (MAP) Pulse Ox O2 Delivery O2 Flow Rate FiO2 04/23/17 07:57 99.1 98 20 154/76 (102) 96 04/23/17 05:42 102.0 04/23/17 04:21 99.4 102 19 158/77 (104) 96 04/23/17 00:33 100.3 107 18 147/82 (103) 96 04/22/17 22:30 94 Nasal Cannula 3.00 04/22/17 20:18 85 04/22/17 18:08 99.9 95 16 109/47 91 04/22/17 16:37 102.2 115 17 124/57 (79) 91 04/22/17 13:45 99 04/22/17 12:52 98.6 99 18 136/53 99 . Laboratory Tests Test 04/22/17 04:05 04/23/17 08:56 White Blood Count 0.2 TH/MM3 0.3 TH/MM3 Red Blood Count 2.61 MIL/MM3 2.44 MIL/MM3 Hemoglobin 6.9 GM/DL 6.7 GM/DL Hematocrit 19.9 % 19.0 % Mean Corpuscular Volume 76.2 FL 77.7 FL Mean Corpuscular Hemoglobin 26.3 PG 27.5 PG Mean Corpuscular Hemoglobin Concent 34.5 % 35.5 % Red Cell Distribution Width 17.4 % 18.2 % Platelet Count 11 TH/MM3 19 TH/MM3 Mean Platelet Volume 7.7 FL 7.7 FL CBC Comment AUTO DIFF AUTO DIFF Differential Total Cells Counted 10 25 Neutrophils % (Manual) 10 % 24 % Lymphocytes % 90 % 72 % Neutrophils # (Manual) 0.0 TH/MM3 0.1 TH/MM3 Differential Comment FINAL DIFF MANUAL FINAL DIFF MANUAL Platelet Estimate RARE RARE Haptoglobin 269 MG/DL Monocytes % 4 % Platelet Morphology Comment NORMAL Laboratory Tests Test 04/21/17 18:05 04/22/17 04:05 04/23/17 08:56 Lactic Acid Level 0.5 mmol/L 0.7 mmol/L Blood Urea Nitrogen 6 MG/DL 9 MG/DL Creatinine 0.71 MG/DL 0.67 MG/DL Random Glucose 100 MG/DL 122 MG/DL Total Protein 6.2 GM/DL 6.0 GM/DL Albumin 2.4 GM/DL 2.2 GM/DL Calcium Level 8.5 MG/DL 8.4 MG/DL Alkaline Phosphatase 57 U/L 51 U/L Aspartate Amino Transf (AST/SGOT) 7 U/L 5 U/L Alanine Aminotransferase (ALT/SGPT) 22 U/L 17 U/L Lactate Dehydrogenase 117 U/L Total Bilirubin 2.5 MG/DL 0.9 MG/DL Direct Bilirubin 0.8 MG/DL Sodium Level 134 MEQ/L 137 MEQ/L Potassium Level 3.8 MEQ/L 3.4 MEQ/L Chloride Level 102 MEQ/L 103 MEQ/L Carbon Dioxide Level 26.0 MEQ/L 27.3 MEQ/L Anion Gap 6 MEQ/L 7 MEQ/L Estimat Glomerular Filtration Rate 135 ML/MIN 145 ML/MIN Indirect Bilirubin 1.7 MG/DL Microbiology Date/Time Source Procedure Growth Status 04/23/17 07:10 Blood Line Aerobic Blood Culture Pending Received 04/23/17 07:10 Blood Line Anaerobic Blood Culture Pending Received 04/23/17 06:25 Blood Line Aerobic Blood Culture Pending Received 04/23/17 06:25 Blood Line Anaerobic Blood Culture Pending Received 04/21/17 13:48 Blood Peripheral Aerobic Blood Culture - Preliminary NO GROWTH IN 2 DAYS Resulted 04/21/17 13:48 Blood Peripheral Anaerobic Blood Culture - Preliminary NO GROWTH IN 2 DAYS Resulted 04/21/17 13:40 Blood Line Aerobic Blood Culture - Preliminary NO GROWTH IN 2 DAYS Resulted 04/21/17 13:40 Blood Line Anaerobic Blood Culture - Preliminary NO GROWTH IN 2 DAYS Resulted 04/20/17 14:34 Blood Peripheral Aerobic Blood Culture - Preliminary Staph Sp Coagulase Negative Resulted 04/20/17 14:34 Blood Peripheral Anaerobic Blood Culture - Preliminary NO GROWTH IN 3 DAYS Resulted Imaging Last Impressions Chest X-Ray 04/20/17 0000 Signed Impressions: Service Date/Time: Thursday, April 20, 2017 10:06 - CONCLUSION: No acute cardiopulmonary process. Bean Dugan MD Physical Exam GENERAL: awake and alert, not in respiratory distress. SKIN: Warm and dry. No generalized rash, no ecchymoses HEAD: Atraumatic. Normocephalic. No temporal wasting, or tenderness. EYES: [place] conjunctiva. No petechia or hemorrhage. Pupils equal, round and reactive to light. No scleral icterus. No injection or drainage. EARS, NOSE AND THROAT: Nose without bleeding or purulent nasal discharge. No sinus tenderness. Mucous membranes pink and moist. White coating on his tongue, no ulcers noted NECK: Trachea midline. Supple and not tender, no meningeal signs CARDIOVASCULAR: Regular rate and rhythm. No murmurs, rubs or gallops heard RESPIRATORY: Clear to auscultation. Breath sounds equal bilaterally. No rales , wheezing or rhonchi. Decreased at bases ABDOMEN: Soft, non-tender, nondistended. Bowel sounds present and normoactive. No guarding. No rebound. No organomegaly. EXTREMITIES: No clubbing, cyanosis, or edema.No joint effusion, has good ROM. No calf tenderness. Well perfused and warm. NEUROLOGICAL: Awake and alert. Cranial nerves grossly intact. Motor grossly within normal limits. PSYCHIATRIC: Normal affect, calm and cooperative. LINE: Port in R upper chest, with no evidence of infection Assessment & Plan Remarks IMPRESSION Neutropenia fevers, S/P second cycle consolidation chemo for AML Two (+) BC with GPC, ?significance AML Thrombocytopenia post chemo RECOMMENDATION Continue Vancomycin which will cover the GPC in BC Continue Cefepime and Micafungin Aso on Acyclovir Follow new C/S Monitor temps Follow counts Monitor progress Dr Villegas covering for me this weekend Courtney Nugent MD Apr 23, 2017 12:47
--- NOTE | 2017-04-23 13:21 | PD.ONC.PN ---
Subjective Subjective Remarks Tmax 102F this AM. Feeling better today then he was yesterday. +occasional cough, 1xper day, productive of clear sputum. Denies shortness of breath Denies dizziness. Has not seen any blood in stool. No diarrhea. Objective Data Date Time Temp Pulse Resp B/P (MAP) Pulse Ox O2 Delivery O2 Flow Rate FiO2 04/23/17 11:35 98.5 82 18 138/76 (96) 94 04/23/17 07:57 99.1 98 20 154/76 (102) 96 04/23/17 05:42 102.0 04/23/17 04:21 99.4 102 19 158/77 (104) 96 04/23/17 00:33 100.3 107 18 147/82 (103) 96 04/22/17 22:30 94 Nasal Cannula 3.00 04/22/17 20:18 85 04/22/17 18:08 99.9 95 16 109/47 91 04/22/17 16:37 102.2 115 17 124/57 (79) 91 04/22/17 13:45 99 04/23/17 04/23/17 04/23/17 07:00 15:00 23:00 Output Total 600 ml Balance -600 ml Result Diagram: 04/23/17 0856 04/23/17 0856 Laboratory Results Laboratory Tests Test 04/23/17 02:50 04/23/17 08:56 Vancomycin Level Trough 11.9 MCG/ML White Blood Count 0.3 TH/MM3 Red Blood Count 2.44 MIL/MM3 Hemoglobin 6.7 GM/DL Hematocrit 19.0 % Mean Corpuscular Volume 77.7 FL Mean Corpuscular Hemoglobin 27.5 PG Mean Corpuscular Hemoglobin Concent 35.5 % Red Cell Distribution Width 18.2 % Platelet Count 19 TH/MM3 Mean Platelet Volume 7.7 FL CBC Comment AUTO DIFF Differential Total Cells Counted 25 Neutrophils % (Manual) 24 % Lymphocytes % 72 % Monocytes % 4 % Neutrophils # (Manual) 0.1 TH/MM3 Differential Comment FINAL DIFF MANUAL Platelet Estimate RARE Platelet Morphology Comment NORMAL Blood Urea Nitrogen 9 MG/DL Creatinine 0.67 MG/DL Random Glucose 122 MG/DL Total Protein 6.0 GM/DL Albumin 2.2 GM/DL Calcium Level 8.4 MG/DL Alkaline Phosphatase 51 U/L Aspartate Amino Transf (AST/SGOT) 5 U/L Alanine Aminotransferase (ALT/SGPT) 17 U/L Total Bilirubin 0.9 MG/DL Sodium Level 137 MEQ/L Potassium Level 3.4 MEQ/L Chloride Level 103 MEQ/L Carbon Dioxide Level 27.3 MEQ/L Anion Gap 7 MEQ/L Estimat Glomerular Filtration Rate 145 ML/MIN Culture Results Microbiology Date/Time Source Procedure Growth Status 04/23/17 07:10 Blood Line Aerobic Blood Culture Pending Received 04/23/17 07:10 Blood Line Anaerobic Blood Culture Pending Received 04/23/17 06:25 Blood Line Aerobic Blood Culture Pending Received 04/23/17 06:25 Blood Line Anaerobic Blood Culture Pending Received 04/21/17 13:48 Blood Peripheral Aerobic Blood Culture - Preliminary NO GROWTH IN 2 DAYS Resulted 04/21/17 13:48 Blood Peripheral Anaerobic Blood Culture - Preliminary NO GROWTH IN 2 DAYS Resulted 04/21/17 13:40 Blood Line Aerobic Blood Culture - Preliminary NO GROWTH IN 2 DAYS Resulted 04/21/17 13:40 Blood Line Anaerobic Blood Culture - Preliminary NO GROWTH IN 2 DAYS Resulted 04/20/17 14:34 Blood Peripheral Aerobic Blood Culture - Preliminary Staph Sp Coagulase Negative Resulted 04/20/17 14:34 Blood Peripheral Anaerobic Blood Culture - Preliminary NO GROWTH IN 3 DAYS Resulted Administered Medications Medications (Trade) Dose Ordered Sig/Emma Route PRN Reason Start Time Stop Time Status Last Admin Dose Admin Sodium Chloride 1,000 ml @ 83 mls/hr Q12H3M IV 04/18/17 12:00 04/22/17 22:38 Sodium Chloride (NS Flush) 2 ml BID IV FLUSH 04/18/17 21:00 04/23/17 08:53 Senna/Docusate Sodium (Rika-Colace) 1 tab BID PO 04/18/17 21:00 04/23/17 08:51 Sucralfate (Carafate Liq) 1 gm ACHS PO 04/18/17 12:30 04/23/17 08:51 Hydromorphone HCl (Dilaudid Pf Inj) 0.5 mg Q4H PRN IV PUSH BREAKTHROUGH PAIN 04/18/17 12:30 Future hold 04/23/17 05:37 Ondansetron HCl (Zofran Inj) 4 mg Q6H PRN IV PUSH NAUSEA OR VOMITING 04/18/17 22:00 04/22/17 22:43 Prochlorperazine Edisylate (Compazine Inj) 10 mg Q6H PRN IV SEE LABEL COMMENTS 04/19/17 00:45 04/23/17 00:24 Multi-Ingredient Mouthwash/Gargle (Magic Mouthwash Adult Liq) 10 ml QID PO 04/19/17 00:45 04/20/17 20:42 Cefepime HCl 2000 mg/Sodium Chloride 100 ml @ 200 mls/hr Q8H IV 04/20/17 09:00 04/23/17 08:49 Acetaminophen (Tylenol) 650 mg Q4H PRN PO fever 04/20/17 18:30 04/23/17 05:51 Vancomycin HCl 2000 mg/Sodium Chloride 520 ml @ 250 mls/hr Q8H IV 04/21/17 03:00 Future hold 04/23/17 11:27 Micafungin Sodium 100 mg/Sodium Chloride 100 ml @ 100 mls/hr Q24H IV 04/20/17 22:45 04/22/17 22:43 Oxycodone HCl (Roxicodone) 10 mg Q6H PRN PO pain 1-10 04/21/17 09:15 04/23/17 11:35 Acyclovir (Zovirax) 400 mg TID PO 04/22/17 09:00 04/23/17 08:51 Pantoprazole Sodium (Protonix Inj) 40 mg Q12H IV PUSH 04/22/17 11:00 04/23/17 11:31 Gabapentin (Neurontin) 100 mg TID PO 04/22/17 18:00 04/23/17 08:51 Objective Remarks GENERAL: Young man, lying in bed in nad. SKIN: Warm and dry. HEAD: Normocephalic. EYES: No injection or drainage. MOUTH: small amount of oral thrush NECK: Supple, trachea midline. CARDIOVASCULAR: Regular rate and rhythm RESPIRATORY: Breath sounds equal bilaterally. No accessory muscle use. GASTROINTESTINAL: Abdomen soft, non-tender, nondistended. EXTREMITIES: No cyanosis NEUROLOGICAL: awake and alert, normal speech. moving all extremities. Assessment/Plan Problem List: (1) Neutropenic sepsis ICD Codes: A41.9 - Sepsis, unspecified organism; D70.9 - Neutropenia, unspecified Status: Resolved Plan: --BC, 04/23, pending --BC, 04/21, no growth --Blood cultures, 04/20, +GPC --on Cefepime, Vanco, Acyclovir, Micafungin --cxr--no acute disease --u/a--mixed GP clara (2) Pancytopenia ICD Codes: D61.818 - Other pancytopenia Plan: --due to chemotherapy --transfuse irradiated CMV negative blood products as needed. (3) AML (acute myelogenous leukemia) ICD Codes: C92.00 - Acute myeloblastic leukemia, not having achieved remission Status: Chronic (4) right thigh burning sensation Plan: --unclear etiology --differential includes Shingles vs. meralgia paresthetica vs muscle spasms vs other. Assessment 27y/o male with AML, admitted with pancytopenia, generalized weakness. Plan 1. give 2 units pRBC 2. continue antibiotics per ID/appreciate ID assistance 3. resume magic mouthwash (patient reports he has not been taking it) 4. monitor CBC Attending Statement The exam, history, and the medical decision-making described in the above note were completed with the assistance of the mid-level provider. I reviewed and agree with the findings presented. I attest that I had a [id number] encounter with the patient on the same day, and personally performed and documented my assessment and findings in the medical record Febrile neutropenia --daily high grade fevers Blood cultures negative--Continue Vancomycin, Cefepime, Micafungin, Acyclovir repeat BC today chest X-ray reviewed Transfuse 1 unit pRBC diarrhea resolved repeat bilirubin in am US abdomen if t.bili is still elevated Oral mucositis--magic mouth wash tid after meals d/w rn o/n events reviewed Problem Qualifiers (1) AML (acute myelogenous leukemia): Qualified Codes: C92.01 - Acute myeloblastic leukemia, in remission Fartun Pagan Apr 23, 2017 13:21 Joey Santoyo MD Apr 24, 2017 02:53
[2017-04-23] MEDS: diphenhydrAMINE HCL 25 MG CAP PO PRN ×2 (13:45→18:10)
[2017-04-23] MEDS: ONDANSETRON HCL 4 MG/2 ML VIAL IV PUSH PRN (13:52)
--- NOTE | 2017-04-23 14:24 | HHI.PR ---
Subjective Remarks Patient states that the pain and numbness and tingling in his right thigh has greatly diminished after starting the Neurontin. He continues complaining of generalized body aches and pains which she states is typical after receiving chemotherapy. Fever of 102 this morning. Objective Vitals Vital Signs Date Time Temp Pulse Resp B/P (MAP) Pulse Ox O2 Delivery O2 Flow Rate FiO2 04/23/17 11:35 98.5 82 18 138/76 (96) 94 04/23/17 07:57 99.1 98 20 154/76 (102) 96 04/23/17 05:42 102.0 04/23/17 04:21 99.4 102 19 158/77 (104) 96 04/23/17 00:33 100.3 107 18 147/82 (103) 96 04/22/17 22:30 94 Nasal Cannula 3.00 04/22/17 20:18 85 04/22/17 18:08 99.9 95 16 109/47 91 04/22/17 16:37 102.2 115 17 124/57 (79) 91 I/O 04/22/17 04/22/17 04/22/17 04/23/17 04/23/17 04/23/17 07:00 15:00 23:00 07:00 15:00 23:00 Intake Total 1044 ml 400 ml 368 ml Output Total 1725 ml 1025 ml 600 ml Balance -681 ml 400 ml -657 ml -600 ml Intake Oral 480 ml IV Total 120 ml Packed Cells 400 ml FFP 439 ml Platelets 184 ml Blood Product IV Normal Saline Flush 5 ml 184 ml Output Urine Total 1725 ml 1025 ml 600 ml # Voids 1 # Bowel Movements 1 Result Diagram: 04/23/17 0856 04/23/17 0856 Objective Remarks GENERAL: Well-nourished, well-developed pleasant obese male patient. SKIN: Warm and dry. HEAD: Normocephalic. EYES: No scleral icterus. No injection or drainage. NECK: Supple, trachea midline. No JVD or lymphadenopathy. CARDIOVASCULAR: Regular rate and rhythm without murmurs, gallops, or rubs. RESPIRATORY: Breath sounds equal bilaterally. No accessory muscle use. GASTROINTESTINAL: Abdomen soft, non-tender, nondistended. EXTREMITIES: No cyanosis, or edema. NEUROLOGICAL: Awake, alert, and oriented x 3. Non-focal. A/P Problem List: (1) Meralgia paraesthetica ICD Code: G57.10 - Meralgia paresthetica, unspecified lower limb (2) Bacteremia, coagulase-negative staphylococcal ICD Code: R78.81 - Bacteremia (3) Neutropenic fever ICD Code: D70.9 - Neutropenia, unspecified; R50.81 - Fever presenting with conditions classified elsewhere (4) Pancytopenia due to antineoplastic chemotherapy ICD Code: D61.810 - Antineoplastic chemotherapy induced pancytopenia; T45.1X5A - Adverse effect of antineoplastic and immunosuppressive drugs, initial encounter (5) Sepsis ICD Code: A41.9 - Sepsis, unspecified organism Status: Acute (6) AML (acute myelogenous leukemia) ICD Code: C92.00 - Acute myeloblastic leukemia, not having achieved remission Status: Chronic (7) Generalized pain ICD Code: R52 - Pain, unspecified Assessment and Plan 27-year-old male admitted with Neutropenic Fever with Sepsis and Pancytopenia, who has underlying AML. Continue to follow fevers. Continue antibiotics. Transfusions as needed. Monitor for any signs of progression of sepsis. Pancytopenia Neutropenic Fever, bacteremia staph coag negative x 2 BC/ sepsis AML Generalized Pain Remain on Bactrim, Cipro, and Acyclovir Continue Abx per ID/Dr. Nugent - Vancomycin, Cefepime, micafungin, acyclovir Follow repeat blood cultures Hematology/Oncology following Replace PRBC and Platelets as needed per hematology Continue Pain treatments Follow vital signs closely Defer to ID whether port needs to be removed Right thigh pain - suspect meralgia paresthetica improved after starting Neurontin - will continue and titrate up as needed DVT PPx SCDs Anticoagulation on hold due to degree of anemia and high bleed risks Problem Qualifiers (1) AML (acute myelogenous leukemia): Qualified Codes: C92.01 - Acute myeloblastic leukemia, in remission Alice Coppola MD Apr 23, 2017 14:23
--- NOTE | 2017-04-23 15:20 | HHI.GIFU ---
Subjective Remarks Pt resting in bed, napping. He has not vomited today. He is tolerating liquids , has no appetite for solid food. (Shelley Piña) Objective Vitals I&O Vital Signs Date Time Temp Pulse Resp B/P (MAP) Pulse Ox O2 Delivery O2 Flow Rate FiO2 04/23/17 14:55 99.3 92 17 130/71 91 04/23/17 14:24 94 04/23/17 11:35 98.5 82 18 138/76 (96) 94 04/23/17 07:57 99.1 98 20 154/76 (102) 96 04/23/17 05:42 102.0 04/23/17 04:21 99.4 102 19 158/77 (104) 96 04/23/17 00:33 100.3 107 18 147/82 (103) 96 04/22/17 22:30 94 Nasal Cannula 3.00 04/22/17 20:18 85 04/22/17 18:08 99.9 95 16 109/47 91 04/22/17 16:37 102.2 115 17 124/57 (79) 91 I/O 04/22/17 04/22/17 04/22/17 04/23/17 04/23/17 04/23/17 07:00 15:00 23:00 07:00 15:00 23:00 Intake Total 1044 ml 400 ml 368 ml Output Total 1725 ml 1025 ml 600 ml Balance -681 ml 400 ml -657 ml -600 ml Intake Oral 480 ml IV Total 120 ml Packed Cells 400 ml FFP 439 ml Platelets 184 ml Blood Product IV Normal Saline Flush 5 ml 184 ml Output Urine Total 1725 ml 1025 ml 600 ml # Voids 1 # Bowel Movements 1 Laboratory Laboratory Tests Test 04/23/17 02:50 04/23/17 08:56 Vancomycin Level Trough 11.9 White Blood Count 0.3 Red Blood Count 2.44 Hemoglobin 6.7 Hematocrit 19.0 Mean Corpuscular Volume 77.7 Mean Corpuscular Hemoglobin 27.5 Mean Corpuscular Hemoglobin Concent 35.5 Red Cell Distribution Width 18.2 Platelet Count 19 Mean Platelet Volume 7.7 CBC Comment AUTO DIFF Differential Total Cells Counted 25 Neutrophils % (Manual) 24 Lymphocytes % 72 Monocytes % 4 Neutrophils # (Manual) 0.1 Differential Comment FINAL DIFF MANUAL Platelet Estimate RARE Platelet Morphology Comment NORMAL Blood Urea Nitrogen 9 Creatinine 0.67 Random Glucose 122 Total Protein 6.0 Albumin 2.2 Calcium Level 8.4 Alkaline Phosphatase 51 Aspartate Amino Transf (AST/SGOT) 5 Alanine Aminotransferase (ALT/SGPT) 17 Total Bilirubin 0.9 Sodium Level 137 Potassium Level 3.4 Chloride Level 103 Carbon Dioxide Level 27.3 Anion Gap 7 Estimat Glomerular Filtration Rate 145 Date/Time Source Procedure Growth Status 04/23/17 07:10 Blood Line Aerobic Blood Culture Pending Received 04/23/17 07:10 Blood Line Anaerobic Blood Culture Pending Received 04/20/17 10:30 Urine Clean Catch Urine Culture - Final 50-100,000 CFU/ML MIXED GRAM POSITIVE... Complete Physical Exam HEENT: PERRL; normocephalic; atraumatic; no jaundice. CHEST: wheezes left side CARDIAC: RRR ABDOMEN: Soft, obese, nontender; no hepatosplenomegaly; bowel sounds are present in all four quadrants. EXTREMITIES: No clubbing, cyanosis, or edema. SKIN: pale; no rash; no jaundice. 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 (Shelley Piña) Assessment and Plan Plan ASSESSMENT - hematemesis - episode 2d ago. hx esophageal ulcer, could be cause bleeding. EGD 02/2017 found esophageal ulcer and gastritis. his PLT are too low now to do endoscopy. keeping down fluids, no appetite for solid food. No further hematemesis. - pancytopenia - on chemo for AML. hem/onc following - neutropenic fevers - ID following, gram + cocci in bcx PLAN - continue magic mouthwash - can consider repeat EGD if PLT improves - monitor labs - transfuse as needed - abx per ID - BID PPI - GI will sign off, please reconsult if needed This pt seen by myself and Dr Rosas and this note is written on his behalf (Shelley Piña) Physician Comments Patient seen and examined Agree with above Continue with current supportive care Monitor labs No active bleeding noted Not much to add from a GI perspective therefore we will sign off Please reconsult as needed (Isidro Barragan MD) Shelley Piña Apr 23, 2017 15:20 Isidro Barragan MD Apr 23, 2017 19:28
[2017-04-23] MEDS ORDERED: VANCOMYCIN INJ 2,250 MG in SODIUM CHLORID 0.9% 500 ML INJ 500 ML IV SCH (18:00)
--- NOTE | 2017-04-23 20:36 | RADRPT ---
EXAM DATE/TIME: 04/23/2017 19:38 [facility] COMPARISON: CHEST SINGLE AP, April 20, 2017, 10:06. INDICATIONS : Cough for 2 days. MEDICAL HISTORY : Leukemia. SURGICAL HISTORY : None. ENCOUNTER: Subsequent ACUITY: 2 days PAIN SCORE: 10/10 LOCATION: Bilateral chest FINDINGS: A single view of the chest demonstrates right [id number] in superior vena cava. Basilar dependent airspace disease in the lungs. No effusion. No pneumothorax. The heart size within normal limits. CONCLUSION: 1. Basilar dependent opacity most characteristic of atelectasis. No effusion or pneumothorax. Leander Fiore MD on April 23, 2017 at 20:32 Board Certified Radiologist. This report was verified electronically.
[2017-04-23] MEDS: TEMAZEPAM 15 MG CAP PO PRN (22:06)
[2017-04-23] MEDS: MICAFUNGIN INJ 100 MG in SODIUM CHLORIDE 0.9% INJ 100 ML IV SCH (22:14)
[2017-04-24] VITALS (10 sets, daily range): BP systolic 130–167; BP diastolic 69–77; PULSE 71–126; RESP 18–20; TEMP 97.8–100.4; O2SAT 95–98
[2017-04-24] MEDS: CEFEPIME INJ 2,000 MG in SODIUM CHLORIDE 0.9% INJ 100 ML IV SCH ×3 (01:45→16:50)
[2017-04-24] MEDS: HYDROmorphone HCL PF 2 MG/ML VIAL IV PRN ×4 (01:48→20:56)
[2017-04-24] MEDS: SODIUM CHLOR 0.9% 1000 ML INJ 1,000 ML IV SCH ×2 (02:05→20:19)
[2017-04-24] MEDS: ONDANSETRON HCL 4 MG/2 ML VIAL IV PUSH PRN ×2 (05:24→14:10)
[2017-04-24] MEDS: VANCOMYCIN INJ 2,250 MG in SODIUM CHLORID 0.9% 500 ML INJ 500 ML IV SCH ×3 (05:29→22:49)
[2017-04-24 06:06] LABS: HEMATOCRIT 25.1 % (39.0-51.0); MEAN CELL VOLUME 80.2 FL (80.0-100.0); MEAN CORPUSCULAR HEMOGLOBIN 28.3 PG (27.0-34.0); MEAN CORPUSCULAR HGB CONC 35.3 % (32.0-36.0); RED BLOOD COUNT 3.14 MIL/MM3 (4.50-5.90); RED CELL DISTRIBUTION WIDTH 18.1 % (11.6-17.2); WHITE BLOOD COUNT 0.7 TH/MM3 (4.0-11.0)
[2017-04-24 06:15] LABS: HEMO FLAGS AUTO DIFF
[2017-04-24 06:19] LABS: PLATELET COUNT 17 TH/MM3 (150-450)
[2017-04-24 06:26] LABS: BICARBONATE 28.1 MEQ/L (21.0-32.0); POTASSIUM 3.5 MEQ/L (3.5-5.1)
[2017-04-24 06:27] LABS: INDIRECT BILIRUBIN 1.5 MG/DL (0.0-0.8)
[2017-04-24] MEDS: PROCHLORPERAZINE INJ 10 MG/2 ML VIAL IV PRN ×2 (06:59→16:50)
[2017-04-24 07:03] LABS: BANDS 16 % (0-6); NEUTROPHIL # MANUAL DIFF 0.3 TH/MM3 (1.8-7.7); PLATELET ESTIMATE SMEAR RARE (NORMAL); PLATELET MORPHOLOGY NORMAL (NORMAL); POLYS (SEG NEUTROPHILS) 32 % (16-70); SCAN/DIFF FINAL DIFF MANUAL; WBC DIFF SAMPLE 50
[2017-04-24] MEDS: NYSTAT/DIPHENHY/LIDO MOUTHWASH (Adult) 120ML PO SCH ×4 (09:00→20:11)
--- NOTE | 2017-04-24 09:42 | PD.ONC.PN ---
Subjective Subjective Remarks Tmax 100.4 overnight Pt reports he has severe generalized body aches. He reports he had this beginning last week but has been progressively getting worse He feels like he is having a lot more anxiety and depression Hoping to be out of the hospital by Stephane Objective Data Date Time Temp Pulse Resp B/P (MAP) Pulse Ox O2 Delivery O2 Flow Rate FiO2 04/24/17 07:56 77 04/24/17 07:38 100.4 126 18 130/75 (93) 97 04/24/17 07:06 16 04/24/17 06:24 16 04/24/17 04:10 97.8 80 18 155/77 97 04/24/17 00:35 18 04/24/17 00:30 98.8 81 19 148/76 96 04/24/17 00:01 82 04/24/17 00:00 98.6 87 19 150/76 96 04/23/17 21:11 16 04/23/17 20:53 Room Air 2.00 04/23/17 20:53 98.7 109 20 178/84 (115) 91 04/23/17 20:18 100 04/23/17 20:00 Nasal Cannula 2.00 04/23/17 16:00 98.1 98 20 111/56 (74) 91 04/23/17 15:56 98.1 98 20 111/56 91 04/23/17 14:55 99.3 92 17 130/71 91 04/23/17 14:24 94 04/23/17 11:35 98.5 82 18 138/76 (96) 94 04/24/17 04/24/17 04/24/17 07:00 15:00 23:00 Intake Total 550 ml Output Total 1000 ml Balance -450 ml Result Diagram: 04/24/17 0540 04/24/17 0540 Laboratory Results Laboratory Tests Test 04/24/17 05:40 White Blood Count 0.7 TH/MM3 Red Blood Count 3.14 MIL/MM3 Hemoglobin 8.9 GM/DL Hematocrit 25.1 % Mean Corpuscular Volume 80.2 FL Mean Corpuscular Hemoglobin 28.3 PG Mean Corpuscular Hemoglobin Concent 35.3 % Red Cell Distribution Width 18.1 % Platelet Count 17 TH/MM3 Mean Platelet Volume 8.4 FL CBC Comment AUTO DIFF Differential Total Cells Counted 50 Neutrophils % (Manual) 32 % Band Neutrophils % 16 % Lymphocytes % 48 % Monocytes % 4 % Neutrophils # (Manual) 0.3 TH/MM3 Differential Comment FINAL DIFF MANUAL Platelet Estimate RARE Platelet Morphology Comment NORMAL Blood Urea Nitrogen 9 MG/DL Creatinine 0.56 MG/DL Random Glucose 87 MG/DL Calcium Level 8.6 MG/DL Total Bilirubin 2.0 MG/DL Direct Bilirubin 0.5 MG/DL Sodium Level 138 MEQ/L Potassium Level 3.5 MEQ/L Chloride Level 105 MEQ/L Carbon Dioxide Level 28.1 MEQ/L Anion Gap 5 MEQ/L Estimat Glomerular Filtration Rate 178 ML/MIN Indirect Bilirubin 1.5 MG/DL Culture Results Microbiology Date/Time Source Procedure Growth Status 04/23/17 07:10 Blood Line Aerobic Blood Culture Pending Received 04/23/17 07:10 Blood Line Anaerobic Blood Culture Pending Received 04/23/17 06:25 Blood Line Aerobic Blood Culture Pending Received 04/23/17 06:25 Blood Line Anaerobic Blood Culture Pending Received 04/21/17 13:48 Blood Peripheral Aerobic Blood Culture - Preliminary NO GROWTH IN 2 DAYS Resulted 04/21/17 13:48 Blood Peripheral Anaerobic Blood Culture - Preliminary NO GROWTH IN 2 DAYS Resulted 04/21/17 13:40 Blood Line Aerobic Blood Culture - Preliminary NO GROWTH IN 2 DAYS Resulted 04/21/17 13:40 Blood Line Anaerobic Blood Culture - Preliminary NO GROWTH IN 2 DAYS Resulted Administered Medications Medications (Trade) Dose Ordered Sig/Emma Route PRN Reason Start Time Stop Time Status Last Admin Dose Admin Sodium Chloride 1,000 ml @ 83 mls/hr Q12H3M IV 04/18/17 12:00 04/23/17 20:43 Sodium Chloride (NS Flush) 2 ml BID IV FLUSH 04/18/17 21:00 04/23/17 20:42 Temazepam (Restoril) 15 mg HS PRN PO INSOMNIA 04/18/17 11:45 04/23/17 22:06 Senna/Docusate Sodium (Rika-Colace) 1 tab BID PO 04/18/17 21:00 04/23/17 08:51 Sucralfate (Carafate Liq) 1 gm ACHS PO 04/18/17 12:30 04/23/17 18:10 Ondansetron HCl (Zofran Inj) 4 mg Q6H PRN IV PUSH NAUSEA OR VOMITING 04/18/17 22:00 12/16/17 05:24 Prochlorperazine Edisylate (Compazine Inj) 10 mg Q6H PRN IV SEE LABEL COMMENTS 04/19/17 00:45 04/24/17 06:59 Multi-Ingredient Mouthwash/Gargle (Magic Mouthwash Adult Liq) 10 ml QID PO 04/19/17 00:45 04/20/17 20:42 Cefepime HCl 2000 mg/Sodium Chloride 100 ml @ 200 mls/hr Q8H IV 04/20/17 09:00 04/24/17 01:45 Acetaminophen (Tylenol) 650 mg Q4H PRN PO fever 04/20/17 18:30 04/23/17 13:44 Micafungin Sodium 100 mg/Sodium Chloride 100 ml @ 100 mls/hr Q24H IV 04/20/17 22:45 04/23/17 22:14 Oxycodone HCl (Roxicodone) 10 mg Q6H PRN PO pain 1-10 04/21/17 09:15 04/24/17 05:24 Acyclovir (Zovirax) 400 mg TID PO 04/22/17 09:00 04/23/17 18:10 Pantoprazole Sodium (Protonix Inj) 40 mg Q12H IV PUSH 04/22/17 11:00 04/23/17 23:35 Gabapentin (Neurontin) 100 mg TID PO 04/22/17 18:00 04/23/17 18:10 Hydromorphone HCl (Dilaudid Pf Inj) 0.5 mg Q4H PRN IV BREAKTHROUGH PAIN 04/24/17 01:45 04/24/17 06:36 Vancomycin HCl 2250 mg/Sodium Chloride 522.5 ml @ 250 mls/hr Q8H IV 04/24/17 06:00 04/24/17 05:29 Objective Remarks GENERAL: Young man, resting in bed in no acute distress SKIN: Warm and dry. HEAD: Normocephalic. EYES: No injection or drainage. MOUTH: Very minimal amount oral thrush NECK: Supple, trachea midline. CARDIOVASCULAR: Regular rate and rhythm RESPIRATORY: Breath sounds equal bilaterally. No accessory muscle use. GASTROINTESTINAL: Abdomen soft, non-tender, nondistended. EXTREMITIES: No cyanosis NEUROLOGICAL: Awake and alert, normal speech. Moving all extremities. Assessment/Plan Problem List: (1) Neutropenic sepsis ICD Codes: A41.9 - Sepsis, unspecified organism; D70.9 - Neutropenia, unspecified Status: Resolved Plan: --BC, 04/23, pending --BC, 04/21, no growth --Blood cultures, 04/20, +GPC --on Cefepime, Vanco, Acyclovir, Micafungin --cxr--no acute disease --u/a--mixed GP clara (2) Pancytopenia ICD Codes: D61.818 - Other pancytopenia Plan: --due to chemotherapy --transfuse irradiated CMV negative blood products as needed. (3) AML (acute myelogenous leukemia) ICD Codes: C92.00 - Acute myeloblastic leukemia, not having achieved remission Status: Chronic (4) right thigh burning sensation Plan: --unclear etiology --differential includes Shingles vs. meralgia paresthetica vs muscle spasms vs other. -- Improved with gabapentin (5) Depression ICD Codes: F32.9 - Major depressive disorder, single episode, unspecified Plan: -- Patient reporting increased feelings of anxiety/depression -- Start him on 30 mg Cymbalta for 1 week and then increase to 60 mg -- Hopeful that the Cymbalta will help with his generalized pain also Assessment 27y/o male with AML, admitted with pancytopenia, generalized weakness. Plan 1. Start Cymbalta at 30 mg by mouth daily. We will increase to 60 mg in 1 week for depression/anxiety/generalized body aches 2. Monitor CBC 3. Supportive care 4. Continue antibiotics per infectious disease; follow blood cultures. Attending Statement The exam, history, and the medical decision-making described in the above note were completed with the assistance of the mid-level provider. I reviewed and agree with the findings presented. I attest that I had a [id number] encounter with the patient on the same day, and personally performed and documented my assessment and findings in the medical record. Pt seen and examined. Suspect BM recovery causing some bone pain. 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 The relief he is looking for "to get numb" is not the objective. Discussed the limitation of opioids for neuropathic type pain. He was agreeable to try Cymbalta. Problem Qualifiers (1) AML (acute myelogenous leukemia): Qualified Codes: C92.01 - Acute myeloblastic leukemia, in remission Robina Cui Apr 24, 2017 09:42 Abiola Camilo MD Apr 24, 2017 12:22
[2017-04-24] MEDS ORDERED: HYDROmorphone HCL PF 2 MG/ML VIAL IV PUSH ONE (09:45)
[2017-04-24] MEDS: SODIUM CHLORIDE 0.9% FLUSH 10 ML FLUSH IV FLUSH SCH ×2 (11:02→20:13)
[2017-04-24] MEDS: SUCRALFATE 1 GM/10 ML CUP PO SCH ×4 (11:04→20:11)
[2017-04-24] MEDS: DOCUSATE SODIUM 50 MG/SENNA 8.6 MG TAB PO SCH ×2 (11:04→20:11)
[2017-04-24] MEDS: GABAPENTIN 100 MG CAP PO SCH ×3 (11:04→16:51)
[2017-04-24] MEDS: ACYCLOVIR 200 MG CAP PO SCH ×3 (11:04→16:50)
[2017-04-24] MEDS: DULoxetine HCl DR 30 MG CAP PO SCH (11:05)
[2017-04-24] MEDS: PANTOPRAZOLE SODIUM 40 MG VIAL IV PUSH SCH ×2 (11:05→22:29)
--- NOTE | 2017-04-24 12:10 | HHI.PR ---
Subjective Remarks Continues to complain of generalized body aches and pains and states IV pain medicine wearing off too soon. No hematemesis or bleeding. Low-grade fever this morning noted. Objective Vitals Vital Signs Date Time Temp Pulse Resp B/P (MAP) Pulse Ox O2 Delivery O2 Flow Rate FiO2 04/24/17 07:56 77 04/24/17 07:38 100.4 126 18 130/75 (93) 97 04/24/17 07:06 16 04/24/17 06:24 16 04/24/17 04:10 97.8 80 18 155/77 97 04/24/17 00:35 18 04/24/17 00:30 98.8 81 19 148/76 96 04/24/17 00:01 82 04/24/17 00:00 98.6 87 19 150/76 96 04/23/17 21:11 16 04/23/17 20:53 Room Air 2.00 04/23/17 20:53 98.7 109 20 178/84 (115) 91 04/23/17 20:18 100 04/23/17 20:00 Nasal Cannula 2.00 04/23/17 16:00 98.1 98 20 111/56 (74) 91 04/23/17 15:56 98.1 98 20 111/56 91 04/23/17 14:55 99.3 92 17 130/71 91 04/23/17 14:24 94 I/O 04/23/17 04/23/17 04/23/17 04/24/17 04/24/17 04/24/17 07:00 15:00 23:00 07:00 15:00 23:00 Intake Total 1480 ml 550 ml Output Total 600 ml 1400 ml 1000 ml Balance -600 ml 80 ml -450 ml Intake Oral 1080 ml Packed Cells 400 ml 400 ml Blood Product IV Normal Saline Flush 150 ml Output Urine Total 600 ml 1400 ml 1000 ml Result Diagram: 04/24/1740 04/24/17 0540 Objective Remarks GENERAL: Well-nourished, well-developed pleasant obese male patient. SKIN: Warm and dry. HEAD: Normocephalic. EYES: No scleral icterus. No injection or drainage. NECK: Supple, trachea midline. No JVD or lymphadenopathy. CARDIOVASCULAR: Regular rate and rhythm without murmurs, gallops, or rubs. RESPIRATORY: Breath sounds equal bilaterally. No accessory muscle use. GASTROINTESTINAL: Abdomen soft, non-tender, nondistended. EXTREMITIES: No cyanosis, or edema. NEUROLOGICAL: Awake, alert, and oriented x 3. Non-focal. A/P Problem List: (1) Meralgia paraesthetica ICD Code: G57.10 - Meralgia paresthetica, unspecified lower limb (2) Bacteremia, coagulase-negative staphylococcal ICD Code: R78.81 - Bacteremia (3) Neutropenic fever ICD Code: D70.9 - Neutropenia, unspecified; R50.81 - Fever presenting with conditions classified elsewhere (4) Pancytopenia due to antineoplastic chemotherapy ICD Code: D61.810 - Antineoplastic chemotherapy induced pancytopenia; T45.1X5A - Adverse effect of antineoplastic and immunosuppressive drugs, initial encounter (5) Sepsis ICD Code: A41.9 - Sepsis, unspecified organism Status: Acute (6) AML (acute myelogenous leukemia) ICD Code: C92.00 - Acute myeloblastic leukemia, not having achieved remission Status: Chronic (7) Generalized pain ICD Code: R52 - Pain, unspecified (8) Hematemesis ICD Code: K92.0 - Hematemesis Assessment and Plan 27-year-old male admitted with Neutropenic Fever with Sepsis and Pancytopenia, who has underlying AML. Continue to follow fevers. Continue antibiotics. Transfusions as needed. Monitor for any signs of progression of sepsis. Pancytopenia Neutropenic Fever, bacteremia staph coag negative x 2 BC/ sepsis AML Generalized Pain Continue Abx per ID/Dr. Nugent - Vancomycin, Cefepime, micafungin, acyclovir Follow repeat blood cultures Hematology/Oncology following Replace PRBC and Platelets as needed per hematology Continue Pain treatments Follow vital signs closely Defer to ID whether port needs to be removed Right thigh pain - suspect meralgia paresthetica, also has generalized pain improved after starting Neurontin - will continue and titrate up as needed Started on Cymbalta Will start Oramorph 15 mg every 8 hours and continue morphine IV for breakthrough pain Hematemesis 1 Appreciate GI consultation. No EGD due to thrombocytopenia. Monitor for any recurrence. Monitor H&H Continue Magic mouthwash DVT PPx SCDs Anticoagulation on hold due to degree of anemia and high bleed risks Problem Qualifiers (1) AML (acute myelogenous leukemia): Qualified Codes: C92.01 - Acute myeloblastic leukemia, in remission Alice Coppola MD Apr 24, 2017 12:10
[2017-04-24] MEDS: MORPHINE SULFATE 15 MG CONTROLLED RELEASE TAB PO SCH ×2 (14:11→22:28)
[2017-04-24] MEDS: TEMAZEPAM 15 MG CAP PO PRN (20:13)
[2017-04-24] MEDS: MICAFUNGIN INJ 100 MG in SODIUM CHLORIDE 0.9% INJ 100 ML IV SCH (22:29)
[2017-04-25] VITALS (12 sets, daily range): BP systolic 130–194; BP diastolic 68–89; PULSE 70–101; RESP 16–23; TEMP 97.7–100.7; O2SAT 94–100
[2017-04-25] MEDS: PROCHLORPERAZINE INJ 10 MG/2 ML VIAL IV PRN (00:59)
[2017-04-25] MEDS: CEFEPIME INJ 2,000 MG in SODIUM CHLORIDE 0.9% INJ 100 ML IV SCH ×3 (01:00→18:04)
[2017-04-25] MEDS: HYDROmorphone HCL PF 2 MG/ML VIAL IV PRN ×4 (01:00→20:49)
[2017-04-25] MEDS: ACETAMINOPHEN 325 MG TAB PO PRN (01:21)
[2017-04-25] MEDS: SODIUM CHLOR 0.9% 1000 ML INJ 1,000 ML IV SCH ×2 (02:11→10:11)
[2017-04-25] MEDS: MORPHINE SULFATE 15 MG CONTROLLED RELEASE TAB PO SCH ×3 (05:06→22:11)
[2017-04-25] MEDS: VANCOMYCIN INJ 2,250 MG in SODIUM CHLORID 0.9% 500 ML INJ 500 ML IV SCH ×3 (05:14→22:10)
[2017-04-25 05:42] LABS: BASOPHIL % 0.2 % (0.0-2.0); HEMATOCRIT 23.3 % (39.0-51.0); LYMPH % 24.1 % (9.0-44.0); LYMPHOCYTE # 0.2 TH/MM3 (1.0-4.8); MEAN CELL VOLUME 79.8 FL (80.0-100.0); MONO % 13.3 % (0.0-8.0); NEUT % 62.4 % (16.0-70.0); RED BLOOD COUNT 2.92 MIL/MM3 (4.50-5.90); RED CELL DISTRIBUTION WIDTH 17.9 % (11.6-17.2); WHITE BLOOD COUNT 0.9 TH/MM3 (4.0-11.0)
[2017-04-25] MEDS ORDERED: PHARMACY ORDERED LAB ONE (05:45)
[2017-04-25 05:48] LABS: HEMO FLAGS AUTO DIFF
[2017-04-25 06:03] LABS: BICARBONATE 28.8 MEQ/L (21.0-32.0); PLATELET COUNT 11 TH/MM3 (150-450); POTASSIUM 3.2 MEQ/L (3.5-5.1)
[2017-04-25 06:04] LABS: AUTOMATED NEUTROPHIL # 0.5 TH/MM3 (1.8-7.7)
[2017-04-25 07:37] LABS: BANDS 10 % (0-6); BASOPHILS 2 % (0-2); METAMYELOCYTES 4 % (0-1); NEUTROPHIL # MANUAL DIFF 0.5 TH/MM3 (1.8-7.7); PLATELET ESTIMATE SMEAR RARE (NORMAL); PLATELET MORPHOLOGY NORMAL (NORMAL); POLYS (SEG NEUTROPHILS) 46 % (16-70); SCAN/DIFF FINAL DIFF MANUAL; TOXIC GRANULATION 1+ (NORMAL); WBC DIFF SAMPLE 50
[2017-04-25] MEDS ORDERED: SODIUM CHLOR 0.9% 250 ML INJ 250 ML IV ONE (08:30)
[2017-04-25] MEDS ORDERED: diphenhydrAMINE HCL 25 MG CAP PO PRN (08:30)
[2017-04-25] MEDS ORDERED: ACETAMINOPHEN 325 MG TAB PO PRN (08:30)
[2017-04-25] MEDS: DOCUSATE SODIUM 50 MG/SENNA 8.6 MG TAB PO SCH ×2 (09:00→19:55)
--- NOTE | 2017-04-25 09:21 | PD.ONC.PN ---
Subjective Subjective Remarks Tmax 100.7 overnight "I can't believe how much better my pain is" Wants to go home Denies chills or SOB Objective Data Date Time Temp Pulse Resp B/P (MAP) Pulse Ox O2 Delivery O2 Flow Rate FiO2 04/25/17 06:00 16 04/25/17 06:00 16 04/25/17 05:07 97.9 80 18 137/73 (94) 98 04/25/17 01:30 16 04/25/17 01:10 100.7 101 23 194/89 (124) 04/25/17 00:18 91 04/24/17 20:20 Nasal Cannula 2.00 04/24/17 20:03 96 04/24/17 20:00 100.3 91 19 167/75 (105) 95 04/24/17 17:44 99.5 105 20 149/73 (98) 95 04/24/17 12:40 98.4 71 18 155/69 (97) 98 04/24/17 10:30 Nasal Cannula 2.00 Result Diagram: 04/25/17 0514 04/25/17 0514 Laboratory Results Laboratory Tests Test 04/25/17 05:14 White Blood Count 0.9 TH/MM3 Red Blood Count 2.92 MIL/MM3 Hemoglobin 8.2 GM/DL Hematocrit 23.3 % Mean Corpuscular Volume 79.8 FL Mean Corpuscular Hemoglobin 28.0 PG Mean Corpuscular Hemoglobin Concent 35.0 % Red Cell Distribution Width 17.9 % Platelet Count 11 TH/MM3 Mean Platelet Volume 8.2 FL Neutrophils (%) (Auto) 62.4 % Lymphocytes (%) (Auto) 24.1 % Monocytes (%) (Auto) 13.3 % Eosinophils (%) (Auto) 0.0 % Basophils (%) (Auto) 0.2 % Neutrophils # (Auto) 0.5 TH/MM3 Lymphocytes # (Auto) 0.2 TH/MM3 Monocytes # (Auto) 0.1 TH/MM3 Eosinophils # (Auto) 0.0 TH/MM3 Basophils # (Auto) 0.0 TH/MM3 CBC Comment AUTO DIFF Differential Total Cells Counted 50 Neutrophils % (Manual) 46 % Band Neutrophils % 10 % Lymphocytes % 34 % Monocytes % 4 % Basophils % 2 % Neutrophils # (Manual) 0.5 TH/MM3 Metamyelocytes 4 % Differential Comment FINAL DIFF MANUAL Toxic Granulation 1+ Platelet Estimate RARE Platelet Morphology Comment NORMAL Blood Urea Nitrogen 7 MG/DL Creatinine 0.56 MG/DL Random Glucose 99 MG/DL Calcium Level 8.6 MG/DL Sodium Level 139 MEQ/L Potassium Level 3.2 MEQ/L Chloride Level 103 MEQ/L Carbon Dioxide Level 28.8 MEQ/L Anion Gap 7 MEQ/L Estimat Glomerular Filtration Rate 178 ML/MIN Vancomycin Level Trough 18.3 MCG/ML Culture Results Microbiology Date/Time Source Procedure Growth Status 04/25/17 01:40 Blood Other Aerobic Blood Culture Pending Received 04/25/17 01:40 Blood Other Anaerobic Blood Culture Pending Received 04/23/17 07:10 Blood Line Aerobic Blood Culture - Preliminary NO GROWTH IN 1 DAY Resulted 04/23/17 07:10 Blood Line Anaerobic Blood Culture - Preliminary NO GROWTH IN 1 DAY Resulted 04/23/17 06:25 Blood Line Aerobic Blood Culture - Preliminary NO GROWTH IN 1 DAY Resulted 04/23/17 06:25 Blood Line Anaerobic Blood Culture - Preliminary NO GROWTH IN 1 DAY Resulted 04/25/17 01:32 Stool Stool Stool Occult Blood (SUNDAR) - Final HEMOCCULT NEGATIVE Complete Administered Medications Medications (Trade) Dose Ordered Sig/Emma Route PRN Reason Start Time Stop Time Status Last Admin Dose Admin Sodium Chloride 1,000 ml @ 83 mls/hr Q12H3M IV 04/18/17 12:00 04/24/17 20:19 Sodium Chloride (NS Flush) 2 ml BID IV FLUSH 04/18/17 21:00 04/24/17 20:13 Temazepam (Restoril) 15 mg HS PRN PO INSOMNIA 04/18/17 11:45 04/24/17 20:13 Senna/Docusate Sodium (Rika-Colace) 1 tab BID PO 04/18/17 21:00 04/24/17 20:11 Sucralfate (Carafate Liq) 1 gm ACHS PO 04/18/17 12:30 04/24/17 20:11 Ondansetron HCl (Zofran Inj) 4 mg Q6H PRN IV PUSH NAUSEA OR VOMITING 04/18/17 22:00 04/24/17 14:10 Prochlorperazine Edisylate (Compazine Inj) 10 mg Q6H PRN IV SEE LABEL COMMENTS 04/19/17 00:45 04/25/17 00:59 Multi-Ingredient Mouthwash/Gargle (Magic Mouthwash Adult Liq) 10 ml QID PO 04/19/17 00:45 04/24/17 20:11 Cefepime HCl 2000 mg/Sodium Chloride 100 ml @ 200 mls/hr Q8H IV 04/20/17 09:00 04/25/17 01:00 Acetaminophen (Tylenol) 650 mg Q4H PRN PO fever 04/20/17 18:30 04/25/17 01:21 Micafungin Sodium 100 mg/Sodium Chloride 100 ml @ 100 mls/hr Q24H IV 04/20/17 22:45 04/24/17 22:29 Oxycodone HCl (Roxicodone) 10 mg Q6H PRN PO pain 1-10 04/21/17 09:15 04/25/17 05:06 Acyclovir (Zovirax) 400 mg TID PO 04/22/17 09:00 04/24/17 16:50 Pantoprazole Sodium (Protonix Inj) 40 mg Q12H IV PUSH 04/22/17 11:00 04/24/17 22:29 Gabapentin (Neurontin) 100 mg TID PO 04/22/17 18:00 04/24/17 16:51 Hydromorphone HCl (Dilaudid Pf Inj) 0.5 mg Q4H PRN IV BREAKTHROUGH PAIN 04/24/17 01:45 04/25/17 01:00 Vancomycin HCl 2250 mg/Sodium Chloride 522.5 ml @ 250 mls/hr Q8H IV 04/24/17 06:00 04/25/17 05:14 Duloxetine HCl (Cymbalta Dr) 30 mg DAILY PO 04/24/17 10:00 04/24/17 11:05 Morphine Sulfate (Oramorph Sr) 15 mg Q8HR PO 04/24/17 14:00 04/25/17 05:06 Objective Remarks GENERAL: Young man, resting in bed in no acute distress SKIN: Warm and dry. HEAD: Normocephalic. EYES: No injection or drainage. MOUTH: Very minimal amount oral thrush NECK: Supple, trachea midline. CARDIOVASCULAR: Regular rate and rhythm RESPIRATORY: Breath sounds equal bilaterally. No accessory muscle use. GASTROINTESTINAL: Abdomen soft, non-tender, nondistended. EXTREMITIES: No cyanosis. No edema NEUROLOGICAL: Awake and alert, normal speech. Moving all extremities. Assessment/Plan Problem List: (1) Neutropenic sepsis ICD Codes: A41.9 - Sepsis, unspecified organism; D70.9 - Neutropenia, unspecified Status: Resolved Plan: --BC 04/25; pending --BC, 04/23, no growth --BC, 04/21, no growth --Blood cultures, 04/20, +GPC --on Cefepime, Vanco, Acyclovir, Micafungin --cxr--no acute disease --u/a--mixed GP clara (2) Pancytopenia ICD Codes: D61.818 - Other pancytopenia Plan: --due to chemotherapy --transfuse irradiated CMV negative blood products as needed. (3) AML (acute myelogenous leukemia) ICD Codes: C92.00 - Acute myeloblastic leukemia, not having achieved remission Status: Chronic (4) right thigh burning sensation Plan: --unclear etiology --differential includes Shingles vs. meralgia paresthetica vs muscle spasms vs other. -- Improved with gabapentin (5) Depression ICD Codes: F32.9 - Major depressive disorder, single episode, unspecified Plan: -- Patient reporting increased feelings of anxiety/depression -- Start him on 30 mg Cymbalta for 1 week and then increase to 60 mg -- Hopeful that the Cymbalta will help with his generalized pain also Assessment 27y/o male with AML, admitted with pancytopenia, generalized weakness. Plan 1. Pt was trialed on Oramorph 15mg Q8H for diffuse body aches/bone pain. 2. Transfuse one unit irradiated platelets today 3. Continue to follow blood cultures 4. Plan to increase Cymbalta to 60 mg on 05/01. 5. Monitor CBC Attending Statement The exam, history, and the medical decision-making described in the above note were completed with the assistance of the mid-level provider. I reviewed and agree with the findings presented. I attest that I had a [id number] encounter with the patient on the same day, and personally performed and documented my assessment and findings in the medical record. PT seen and examined. BM recovery post consolidation, WBC increase ANC 500, still having fevers. Appear brighter today, ambulating in the room. Transfuse platelets 11K, no bleeding, no petechiae or wet purpura. Monitor hgb decrease to 8.2. Problem Qualifiers (1) AML (acute myelogenous leukemia): Qualified Codes: C92.01 - Acute myeloblastic leukemia, in remission Robina Cui Apr 25, 2017 09:21 Abiola Camilo MD Apr 25, 2017 12:02
[2017-04-25] MEDS ORDERED: POTASSIUM CHLORIDE 10 MEQ CONTROLLED RELEASE TAB PO ONE (09:45)
[2017-04-25] MEDS: NYSTAT/DIPHENHY/LIDO MOUTHWASH (Adult) 120ML PO SCH ×4 (10:12→19:57)
[2017-04-25] MEDS: SUCRALFATE 1 GM/10 ML CUP PO SCH ×4 (10:13→19:57)
[2017-04-25] MEDS: DULoxetine HCl DR 30 MG CAP PO SCH (10:13)
[2017-04-25] MEDS: SODIUM CHLORIDE 0.9% FLUSH 10 ML FLUSH IV FLUSH SCH ×2 (10:13→19:58)
[2017-04-25] MEDS: GABAPENTIN 100 MG CAP PO SCH ×3 (10:14→18:04)
[2017-04-25] MEDS: ACYCLOVIR 200 MG CAP PO SCH ×3 (10:14→18:04)
[2017-04-25] MEDS: ONDANSETRON HCL 4 MG/2 ML VIAL IV PUSH PRN (10:15)
[2017-04-25] MEDS: PANTOPRAZOLE SODIUM 40 MG VIAL IV PUSH SCH (13:16)
--- NOTE | 2017-04-25 15:20 | HHI.PR ---
Subjective Remarks Generalized pain is better controlled today. low grade fever overnight. transfusingp latelets per hematology. Objective Vitals Vital Signs Date Time Temp Pulse Resp B/P (MAP) Pulse Ox O2 Delivery O2 Flow Rate FiO2 04/25/17 13:13 97.8 70 18 164/75 (104) 99 04/25/17 12:20 97.8 70 18 164/75 99 04/25/17 12:10 97.7 78 18 140/68 97 04/25/17 10:00 Nasal Cannula 2.00 04/25/17 08:00 98.2 82 18 144/72 (96) 99 04/25/17 06:00 16 04/25/17 06:00 16 04/25/17 05:07 97.9 80 18 137/73 (94) 98 04/25/17 01:30 16 04/25/17 01:10 100.7 101 23 194/89 (124) 04/25/17 00:18 91 04/24/17 20:20 Nasal Cannula 2.00 04/24/17 20:03 96 04/24/17 20:00 100.3 91 19 167/75 (105) 95 04/24/17 17:44 99.5 105 20 149/73 (98) 95 I/O 04/24/17 04/24/17 04/24/17 04/25/17 04/25/17 04/25/17 07:00 15:00 23:00 07:00 15:00 23:00 Intake Total 550 ml 100 ml 600 ml 191 ml Output Total 1000 ml 1000 ml Balance -450 ml -900 ml 600 ml 191 ml IV Total 100 ml 600 ml Packed Cells 400 ml Platelets 191 ml Blood Product IV Normal Saline Flush 150 ml Output Urine Total 1000 ml 1000 ml # Voids 1 # Bowel Movements 1 Result Diagram: 04/25/1751304/25/1714 Objective Remarks GENERAL: Well-nourished, well-developed pleasant obese male patient. SKIN: Warm and dry. HEAD: Normocephalic. EYES: No scleral icterus. No injection or drainage. NECK: Supple, trachea midline. No JVD or lymphadenopathy. CARDIOVASCULAR: Regular rate and rhythm without murmurs, gallops, or rubs. RESPIRATORY: Breath sounds equal bilaterally. No accessory muscle use. GASTROINTESTINAL: Abdomen soft, non-tender, nondistended. EXTREMITIES: No cyanosis, or edema. NEUROLOGICAL: Awake, alert, and oriented x 3. Non-focal. A/P Problem List: (1) Meralgia paraesthetica ICD Code: G57.10 - Meralgia paresthetica, unspecified lower limb (2) Bacteremia, coagulase-negative staphylococcal ICD Code: R78.81 - Bacteremia (3) Neutropenic fever ICD Code: D70.9 - Neutropenia, unspecified; R50.81 - Fever presenting with conditions classified elsewhere (4) Pancytopenia due to antineoplastic chemotherapy ICD Code: D61.810 - Antineoplastic chemotherapy induced pancytopenia; T45.1X5A - Adverse effect of antineoplastic and immunosuppressive drugs, initial encounter (5) Sepsis ICD Code: A41.9 - Sepsis, unspecified organism Status: Acute (6) AML (acute myelogenous leukemia) ICD Code: C92.00 - Acute myeloblastic leukemia, not having achieved remission Status: Chronic (7) Generalized pain ICD Code: R52 - Pain, unspecified (8) Hematemesis ICD Code: K92.0 - Hematemesis Assessment and Plan 27-year-old male admitted with Neutropenic Fever with Sepsis and Pancytopenia, who has underlying AML. Continue to follow fevers. Continue antibiotics. Transfusions as needed. Monitor for any signs of progression of sepsis. Pancytopenia Neutropenic Fever, bacteremia staph coag negative x 2 BC/ sepsis AML Generalized Pain Continue Abx per ID/Dr. Nugent - Vancomycin, Cefepime, micafungin, acyclovir Follow repeat blood cultures Hematology/Oncology following Replace PRBC and Platelets as needed per hematology Continue Pain treatments Follow vital signs closely Defer to ID whether port needs to be removed Right thigh pain - suspect meralgia paresthetica, also has generalized pain improved after starting Neurontin - will continue and titrate up as needed Started on Cymbalta Started on Oramorph 15 mg every 8 hours on 04/24 and continue morphine IV for breakthrough pain Hematemesis 1 Appreciate GI consultation. No EGD due to thrombocytopenia. Monitor for any recurrence. Monitor H&H Continue Magic mouthwash DVT PPx SCDs Anticoagulation on hold due to degree of anemia and high bleed risks Problem Qualifiers (1) AML (acute myelogenous leukemia): Qualified Codes: C92.01 - Acute myeloblastic leukemia, in remission Alice Coppola MD Apr 25, 2017 15:20
[2017-04-25 20:13] LABS: HEMATOCRIT 21.8 % (39.0-51.0); MEAN CELL VOLUME 79.4 FL (80.0-100.0); MEAN CORPUSCULAR HEMOGLOBIN 27.3 PG (27.0-34.0); MEAN CORPUSCULAR HGB CONC 34.4 % (32.0-36.0); RED BLOOD COUNT 2.75 MIL/MM3 (4.50-5.90); RED CELL DISTRIBUTION WIDTH 18.1 % (11.6-17.2); WHITE BLOOD COUNT 0.8 TH/MM3 (4.0-11.0)
[2017-04-25 20:18] LABS: REVIEW FLAG FINAL
[2017-04-25 20:23] LABS: PLATELET COUNT 17 TH/MM3 (150-450)
[2017-04-25] MEDS: TEMAZEPAM 15 MG CAP PO PRN (20:47)
[2017-04-26] VITALS (11 sets, daily range): BP systolic 120–156; BP diastolic 62–74; PULSE 72–94; RESP 16–22; TEMP 97.5–98.8; O2SAT 94–100
[2017-04-26] MEDS: MICAFUNGIN INJ 100 MG in SODIUM CHLORIDE 0.9% INJ 100 ML IV SCH (00:05)
[2017-04-26] MEDS: PANTOPRAZOLE SODIUM 40 MG VIAL IV PUSH SCH ×3 (00:06→23:55)
[2017-04-26] MEDS: CEFEPIME INJ 2,000 MG in SODIUM CHLORIDE 0.9% INJ 100 ML IV SCH ×4 (01:20→23:59)
[2017-04-26] MEDS: SODIUM CHLOR 0.9% 1000 ML INJ 1,000 ML IV SCH ×2 (02:17→17:53)
[2017-04-26] MEDS: MORPHINE SULFATE 15 MG CONTROLLED RELEASE TAB PO SCH ×3 (05:40→21:27)
[2017-04-26] MEDS: VANCOMYCIN INJ 2,250 MG in SODIUM CHLORID 0.9% 500 ML INJ 500 ML IV SCH ×3 (05:40→21:02)
[2017-04-26 06:52] LABS: AUTOMATED NEUTROPHIL # 0.4 TH/MM3 (1.8-7.7); BASOPHIL % 0.2 % (0.0-2.0); EOSINOPHIL % 0.1 % (0.0-4.0); HEMATOCRIT 21.5 % (39.0-51.0); LYMPH % 41.8 % (9.0-44.0); LYMPHOCYTE # 0.4 TH/MM3 (1.0-4.8); MEAN CORPUSCULAR HEMOGLOBIN 27.8 PG (27.0-34.0); MEAN CORPUSCULAR HGB CONC 34.7 % (32.0-36.0); MONO % 13.1 % (0.0-8.0); NEUT % 44.8 % (16.0-70.0); PLATELET COUNT 24 TH/MM3 (150-450); RED BLOOD COUNT 2.68 MIL/MM3 (4.50-5.90); RED CELL DISTRIBUTION WIDTH 18.2 % (11.6-17.2); WHITE BLOOD COUNT 0.9 TH/MM3 (4.0-11.0)
[2017-04-26 07:04] LABS: HEMO FLAGS AUTO DIFF
[2017-04-26 07:07] LABS: BICARBONATE 31.3 MEQ/L (21.0-32.0); POTASSIUM 3.1 MEQ/L (3.5-5.1)
[2017-04-26] MEDS: DULoxetine HCl DR 30 MG CAP PO SCH (08:09)
[2017-04-26] MEDS: SUCRALFATE 1 GM/10 ML CUP PO SCH ×4 (08:09→21:27)
[2017-04-26] MEDS: ACYCLOVIR 200 MG CAP PO SCH ×4 (08:09→21:27)
[2017-04-26] MEDS: NYSTAT/DIPHENHY/LIDO MOUTHWASH (Adult) 120ML PO SCH ×4 (08:09→20:39)
[2017-04-26] MEDS: GABAPENTIN 100 MG CAP PO SCH ×3 (08:09→17:54)
[2017-04-26] MEDS: DOCUSATE SODIUM 50 MG/SENNA 8.6 MG TAB PO SCH ×2 (08:10→21:00)
[2017-04-26] MEDS ORDERED: ACETAMINOPHEN 325 MG TAB PO PRN (08:15)
[2017-04-26] MEDS ORDERED: SODIUM CHLOR 0.9% 250 ML INJ 250 ML IV ONE (08:15)
[2017-04-26] MEDS ORDERED: diphenhydrAMINE HCL 25 MG CAP PO PRN (08:15)
[2017-04-26 08:41] LABS: NEUTROPHIL # MANUAL DIFF 0.5 TH/MM3 (1.8-7.7); PLATELET ESTIMATE SMEAR LOW (NORMAL); POLYS (SEG NEUTROPHILS) 53 % (16-70); WBC DIFF SAMPLE 100
[2017-04-26] MEDS: SODIUM CHLORIDE 0.9% FLUSH 10 ML FLUSH IV FLUSH SCH ×2 (08:41→20:49)
[2017-04-26 08:42] LABS: PLATELET MORPHOLOGY NORMAL (NORMAL); SCAN/DIFF FINAL DIFF MANUAL
[2017-04-26] MEDS: HYDROmorphone HCL PF 2 MG/ML VIAL IV PRN ×3 (09:00→20:47)
[2017-04-26] MEDS ORDERED: POTASSIUM CHLORIDE 10 MEQ CONTROLLED RELEASE TAB PO ONE (09:00)
--- NOTE | 2017-04-26 11:33 | HHI.PR ---
Subjective Remarks Pain controlled today. Afebrile. Objective Vitals Vital Signs Date Time Temp Pulse Resp B/P (MAP) Pulse Ox O2 Delivery O2 Flow Rate FiO2 04/26/17 09:13 Room Air 04/26/17 08:27 79 04/26/17 08:17 98.2 74 20 154/71 (98) 100 04/26/17 06:40 16 04/26/17 05:38 97.7 79 22 156/74 (101) 98 04/26/17 04:23 72 04/26/17 00:10 97.5 84 16 152/71 97 04/26/17 00:01 82 04/25/17 23:23 98.3 82 16 173/80 94 04/25/17 23:10 16 04/25/17 22:48 98.7 88 18 167/80 96 04/25/17 21:45 21 04/25/17 21:19 16 04/25/17 21:00 Nasal Cannula 2.00 04/25/17 20:57 16 04/25/17 20:26 79 04/25/17 20:00 Room Air 04/25/17 19:59 99.1 80 21 150/78 (102) 96 04/25/17 16:50 98.8 88 18 130/71 (90) 100 04/25/17 13:13 97.8 70 18 164/75 (104) 99 04/25/17 12:20 97.8 70 18 164/75 99 04/25/17 12:10 97.7 78 18 140/68 97 I/O 04/25/17 04/25/17 04/25/17 04/26/17 04/26/17 04/26/17 07:00 15:00 23:00 07:00 15:00 23:00 Intake Total 321 ml 2410 ml 238 ml Output Total 900 ml Balance 321 ml 2410 ml -662 ml Intake Oral 1800 ml IV Total 130 ml 610 ml Platelets 191 ml 188 ml Blood Product IV Normal Saline Flush 50 ml Output Urine Total 900 ml # Voids 1 # Bowel Movements 1 Result Diagram: 04/26/1753904/26/1740 Objective Remarks GENERAL: Well-nourished, well-developed pleasant obese male patient. SKIN: Warm and dry. HEAD: Normocephalic. EYES: No scleral icterus. No injection or drainage. NECK: Supple, trachea midline. No JVD or lymphadenopathy. CARDIOVASCULAR: Regular rate and rhythm without murmurs, gallops, or rubs. RESPIRATORY: Breath sounds equal bilaterally. No accessory muscle use. GASTROINTESTINAL: Abdomen soft, non-tender, nondistended. EXTREMITIES: No cyanosis, or edema. NEUROLOGICAL: Awake, alert, and oriented x 3. Non-focal. A/P Problem List: (1) Meralgia paraesthetica ICD Code: G57.10 - Meralgia paresthetica, unspecified lower limb (2) Bacteremia, coagulase-negative staphylococcal ICD Code: R78.81 - Bacteremia (3) Neutropenic fever ICD Code: D70.9 - Neutropenia, unspecified; R50.81 - Fever presenting with conditions classified elsewhere (4) Pancytopenia due to antineoplastic chemotherapy ICD Code: D61.810 - Antineoplastic chemotherapy induced pancytopenia; T45.1X5A - Adverse effect of antineoplastic and immunosuppressive drugs, initial encounter (5) Sepsis ICD Code: A41.9 - Sepsis, unspecified organism Status: Acute (6) AML (acute myelogenous leukemia) ICD Code: C92.00 - Acute myeloblastic leukemia, not having achieved remission Status: Chronic (7) Generalized pain ICD Code: R52 - Pain, unspecified (8) Hematemesis ICD Code: K92.0 - Hematemesis Assessment and Plan 27-year-old male admitted with Neutropenic Fever with Sepsis and Pancytopenia, who has underlying AML. Continue to follow fevers. Continue antibiotics. Transfusions as needed. Monitor for any signs of progression of sepsis. Pancytopenia Neutropenic Fever, bacteremia staph coag negative now changed to Rothia spp x 2 BC/ sepsis AML Generalized Pain Continue Abx per ID/Dr. Nugent - Vancomycin, Cefepime, micafungin, acyclovir Follow repeat blood cultures Hematology/Oncology following Replace PRBC and Platelets as needed per hematology Continue Pain treatments Follow vital signs closely Defer to ID whether port needs to be removed Right thigh pain - suspect meralgia paresthetica, also has generalized pain improved after starting Neurontin - will continue and titrate up as needed Started on Cymbalta Started on Oramorph 15 mg every 8 hours on 04/24 and continue morphine IV for breakthrough pain Hematemesis 1 Appreciate GI consultation. No EGD due to thrombocytopenia. Monitor for any recurrence. Monitor H&H Continue Magic mouthwash DVT PPx SCDs Anticoagulation on hold due to degree of anemia and high bleed risks Problem Qualifiers (1) AML (acute myelogenous leukemia): Qualified Codes: C92.01 - Acute myeloblastic leukemia, in remission Alice Coppola MD Apr 26, 2017 11:33
--- NOTE | 2017-04-26 12:04 | PD.ONC.PN ---
Subjective Subjective Remarks Afebrile overnight. Last fever 04/25 at 0100. Patient feeling well. No complaints. Objective Data Date Time Temp Pulse Resp B/P (MAP) Pulse Ox O2 Delivery O2 Flow Rate FiO2 04/26/17 09:13 Room Air 04/26/17 08:27 79 04/26/17 08:17 98.2 74 20 154/71 (98) 100 04/26/17 06:40 16 04/26/17 05:38 97.7 79 22 156/74 (101) 98 04/26/17 04:23 72 04/26/17 00:10 97.5 84 16 152/71 97 04/26/17 00:01 82 04/25/17 23:23 98.3 82 16 173/80 94 04/25/17 23:10 16 04/25/17 22:48 98.7 88 18 167/80 96 04/25/17 21:45 21 04/25/17 21:19 16 04/25/17 21:00 Nasal Cannula 2.00 04/25/17 20:57 16 04/25/17 20:26 79 04/25/17 20:00 Room Air 04/25/17 19:59 99.1 80 21 150/78 (102) 96 04/25/17 16:50 98.8 88 18 130/71 (90) 100 04/25/17 13:13 97.8 70 18 164/75 (104) 99 04/25/17 12:20 97.8 70 18 164/75 99 04/25/17 12:10 97.7 78 18 140/68 97 04/26/17 04/26/17 04/26/17 07:00 15:00 23:00 Intake Total 238 ml Output Total 900 ml Balance -662 ml Result Diagram: 04/26/17 0540 04/26/17 0540 Laboratory Results Laboratory Tests Test 04/25/17 18:20 04/26/17 05:40 White Blood Count 0.8 TH/MM3 0.9 TH/MM3 Red Blood Count 2.75 MIL/MM3 2.68 MIL/MM3 Hemoglobin 7.5 GM/DL 7.4 GM/DL Hematocrit 21.8 % 21.5 % Mean Corpuscular Volume 79.4 FL 80.0 FL Mean Corpuscular Hemoglobin 27.3 PG 27.8 PG Mean Corpuscular Hemoglobin Concent 34.4 % 34.7 % Red Cell Distribution Width 18.1 % 18.2 % Platelet Count 17 TH/MM3 24 TH/MM3 Mean Platelet Volume 7.8 FL 8.0 FL Neutrophils (%) (Auto) 44.8 % Lymphocytes (%) (Auto) 41.8 % Monocytes (%) (Auto) 13.1 % Eosinophils (%) (Auto) 0.1 % Basophils (%) (Auto) 0.2 % Neutrophils # (Auto) 0.4 TH/MM3 Lymphocytes # (Auto) 0.4 TH/MM3 Monocytes # (Auto) 0.1 TH/MM3 Eosinophils # (Auto) 0.0 TH/MM3 Basophils # (Auto) 0.0 TH/MM3 CBC Comment AUTO DIFF Differential Total Cells Counted 100 Neutrophils % (Manual) 53 % Lymphocytes % 42 % Monocytes % 5 % Neutrophils # (Manual) 0.5 TH/MM3 Differential Comment FINAL DIFF MANUAL Platelet Estimate LOW Platelet Morphology Comment NORMAL Blood Urea Nitrogen 7 MG/DL Creatinine 0.55 MG/DL Random Glucose 109 MG/DL Calcium Level 8.1 MG/DL Sodium Level 139 MEQ/L Potassium Level 3.1 MEQ/L Chloride Level 102 MEQ/L Carbon Dioxide Level 31.3 MEQ/L Anion Gap 6 MEQ/L Estimat Glomerular Filtration Rate 182 ML/MIN Culture Results Microbiology Date/Time Source Procedure Growth Status 04/25/17 11:24 Blood Other Aerobic Blood Culture - Preliminary NO GROWTH IN 1 DAY Resulted 04/25/17 11:24 Blood Other Anaerobic Blood Culture - Preliminary NO GROWTH IN 1 DAY Resulted 04/25/17 01:40 Blood Other Aerobic Blood Culture - Preliminary NO GROWTH IN 1 DAY Resulted 04/25/17 01:40 Blood Other Anaerobic Blood Culture - Preliminary NO GROWTH IN 1 DAY Resulted 04/25/17 01:32 Stool Stool Stool Occult Blood (SUNDAR) - Final HEMOCCULT NEGATIVE Complete Administered Medications Medications (Trade) Dose Ordered Sig/Emma Route PRN Reason Start Time Stop Time Status Last Admin Dose Admin Sodium Chloride 1,000 ml @ 83 mls/hr Q12H3M IV 04/18/17 12:00 04/25/17 10:11 Sodium Chloride (NS Flush) 2 ml BID IV FLUSH 04/18/17 21:00 04/26/17 08:41 Temazepam (Restoril) 15 mg HS PRN PO INSOMNIA 04/18/17 11:45 04/25/17 20:47 Senna/Docusate Sodium (Rika-Colace) 1 tab BID PO 04/18/17 21:00 04/24/17 20:11 Sucralfate (Carafate Liq) 1 gm ACHS PO 04/18/17 12:30 04/26/17 08:09 Ondansetron HCl (Zofran Inj) 4 mg Q6H PRN IV PUSH NAUSEA OR VOMITING 04/18/17 22:00 04/25/17 10:15 Prochlorperazine Edisylate (Compazine Inj) 10 mg Q6H PRN IV SEE LABEL COMMENTS 04/19/17 00:45 04/25/17 00:59 Multi-Ingredient Mouthwash/Gargle (Magic Mouthwash Adult Liq) 10 ml QID PO 04/19/17 00:45 04/25/17 19:57 Cefepime HCl 2000 mg/Sodium Chloride 100 ml @ 200 mls/hr Q8H IV 04/20/17 09:00 04/26/17 08:08 Acetaminophen (Tylenol) 650 mg Q4H PRN PO fever 04/20/17 18:30 04/25/17 01:21 Oxycodone HCl (Roxicodone) 10 mg Q6H PRN PO pain 1-10 04/21/17 09:15 04/26/17 08:09 Acyclovir (Zovirax) 400 mg TID PO 04/22/17 09:00 04/26/17 08:09 Pantoprazole Sodium (Protonix Inj) 40 mg Q12H IV PUSH 04/22/17 11:00 04/26/17 00:06 Gabapentin (Neurontin) 100 mg TID PO 04/22/17 18:00 04/26/17 08:09 Hydromorphone HCl (Dilaudid Pf Inj) 0.5 mg Q4H PRN IV BREAKTHROUGH PAIN 04/24/17 01:45 04/25/17 20:49 Vancomycin HCl 2250 mg/Sodium Chloride 522.5 ml @ 250 mls/hr Q8H IV 04/24/17 06:00 04/26/17 05:40 Duloxetine HCl (Cymbalta Dr) 30 mg DAILY PO 04/24/17 10:00 04/26/17 08:09 Morphine Sulfate (Oramorph Sr) 15 mg Q8HR PO 04/24/17 14:00 04/26/17 05:40 Objective Remarks GENERAL: Young man, lying in bed in [place]. SKIN: Warm and dry. HEAD: Normocephalic. EYES: No injection or drainage. NECK: Supple, trachea midline. CARDIOVASCULAR: Regular rate and rhythm RESPIRATORY: Breath sounds equal bilaterally. No accessory muscle use. GASTROINTESTINAL: Abdomen soft, non-tender, nondistended. EXTREMITIES: No cyanosis NEUROLOGICAL: No obvious focal deficit. Awake, alert, and oriented x3. Assessment/Plan Problem List: (1) Neutropenic sepsis ICD Codes: A41.9 - Sepsis, unspecified organism; D70.9 - Neutropenia, unspecified Status: Resolved Plan: --BC 04/25; no growth --BC, 04/23, no growth --BC, 04/21, no growth --Blood cultures, 04/20, +GPC --on Cefepime, Vanco, Acyclovir --cxr--no acute disease --u/a--mixed GP clara (2) Pancytopenia ICD Codes: D61.818 - Other pancytopenia Plan: --due to chemotherapy --transfuse irradiated CMV negative blood products as needed. (3) AML (acute myelogenous leukemia) ICD Codes: C92.00 - Acute myeloblastic leukemia, not having achieved remission Status: Chronic (4) right thigh burning sensation Plan: --unclear etiology --differential includes Shingles vs. meralgia paresthetica vs muscle spasms vs other. -- Improved with gabapentin (5) Depression ICD Codes: F32.9 - Major depressive disorder, single episode, unspecified Plan: -- Patient reporting increased feelings of anxiety/depression -- on 30 mg Cymbalta for 1 week and then increase to 60 mg -- Hopeful that the Cymbalta will help with his generalized pain also Assessment 27y/o male with AML, admitted with pancytopenia, generalized weakness. Plan 1. give 1 unit pRBC 2. monitor CBC 3. d/c micafungin. continue Cefepime/Vanco Attending Statement The exam, history, and the medical decision-making described in the above note were completed with the assistance of the mid-level provider. I reviewed and agree with the findings presented. I attest that I had a [id number] encounter with the patient on the same day, and personally performed and documented my assessment and findings in the medical record. AML s/p induction and in CR # 1 s/p consolidation # 2 Febrile neutropenia ANC remain below 500 Recovering bone marrow Blood cultures likely grew contaminants Port does not need to be removed DC vancomycin tomorrow if ANC climbs above 500 will start Bactrim DS MWF continue cefepime d.c Micafungin change acyclovir to 400mg BID no blood product transfusion today replace K remains profoundly pancytopenic --will likely be in the hospital for another 48 hours high risk of infection d/w rn o/n events reviewed Problem Qualifiers (1) AML (acute myelogenous leukemia): Qualified Codes: C92.01 - Acute myeloblastic leukemia, in remission Fartun Pagan Apr 26, 2017 12:04 Joey Santoyo MD Apr 26, 2017 20:18
[2017-04-26] MEDS: ACETAMINOPHEN 325 MG TAB PO PRN (12:34)
[2017-04-26] MEDS ORDERED: PHARMACY ORDERED LAB ONE (13:45)
[2017-04-26] MEDS: ONDANSETRON HCL 4 MG/2 ML VIAL IV PUSH PRN (15:11)
[2017-04-26] MEDS: PROCHLORPERAZINE INJ 10 MG/2 ML VIAL IV PRN (20:46)
[2017-04-26] MEDS: TEMAZEPAM 15 MG CAP PO PRN (21:35)
[2017-04-27] VITALS (11 sets, daily range): BP systolic 147–171; BP diastolic 67–91; PULSE 66–82; RESP 16–20; TEMP 96.6–99.2; O2SAT 94–98
[2017-04-27] MEDS: HYDROmorphone HCL PF 2 MG/ML VIAL IV PRN (04:13)
[2017-04-27] MEDS: ONDANSETRON HCL 4 MG/2 ML VIAL IV PUSH PRN ×2 (04:16→18:50)
[2017-04-27 04:42] LABS: HEMATOCRIT 22.9 % (39.0-51.0); MEAN CELL VOLUME 80.4 FL (80.0-100.0); MEAN CORPUSCULAR HEMOGLOBIN 27.8 PG (27.0-34.0); MEAN CORPUSCULAR HGB CONC 34.6 % (32.0-36.0); PLATELET COUNT 24 TH/MM3 (150-450); RED BLOOD COUNT 2.84 MIL/MM3 (4.50-5.90); RED CELL DISTRIBUTION WIDTH 17.4 % (11.6-17.2)
[2017-04-27 04:44] LABS: BICARBONATE 30.4 MEQ/L (21.0-32.0); MAGNESIUM 1.9 MG/DL (1.5-2.5); POTASSIUM 3.5 MEQ/L (3.5-5.1)
[2017-04-27 04:49] LABS: INDIRECT BILIRUBIN 0.7 MG/DL (0.0-0.8)
[2017-04-27 04:50] LABS: HEMO FLAGS AUTO DIFF
[2017-04-27] MEDS: MORPHINE SULFATE 15 MG CONTROLLED RELEASE TAB PO SCH (06:08)
[2017-04-27] MEDS: VANCOMYCIN INJ 2,250 MG in SODIUM CHLORID 0.9% 500 ML INJ 500 ML IV SCH ×3 (06:09→22:49)
[2017-04-27] MEDS: SODIUM CHLOR 0.9% 1000 ML INJ 1,000 ML IV SCH (06:11)
[2017-04-27 07:44] LABS: BANDS 6 % (0-6); DOHLE BODIES PRESENT (NONE SEEN); NEUTROPHIL # MANUAL DIFF 0.5 TH/MM3 (1.8-7.7); PLATELET ESTIMATE SMEAR LOW (NORMAL); POLYS (SEG NEUTROPHILS) 46 % (16-70); TOXIC GRANULATION 2+ (NORMAL); WBC DIFF SAMPLE 50
[2017-04-27 07:47] LABS: PLATELET MORPHOLOGY NORMAL (NORMAL); SCAN/DIFF FINAL DIFF MANUAL
[2017-04-27] MEDS: SODIUM CHLORIDE 0.9% FLUSH 10 ML FLUSH IV FLUSH SCH ×2 (07:54→20:05)
[2017-04-27] MEDS: SUCRALFATE 1 GM/10 ML CUP PO SCH (08:17)
[2017-04-27] MEDS ORDERED: ACETAMINOPHEN 325 MG TAB PO PRN (08:30)
[2017-04-27] MEDS ORDERED: diphenhydrAMINE HCL 25 MG CAP PO PRN (08:30)
[2017-04-27] MEDS ORDERED: SODIUM CHLOR 0.9% 250 ML INJ 250 ML IV ONE (08:30)
[2017-04-27] MEDS ORDERED: NYSTAT/DIPHENHY/LIDO MOUTHWASH (Adult) 120ML PO PRN (09:00)
[2017-04-27] MEDS: DOCUSATE SODIUM 50 MG/SENNA 8.6 MG TAB PO SCH ×2 (09:00→20:05)
[2017-04-27] MEDS: DULoxetine HCl DR 30 MG CAP PO SCH (09:05)
[2017-04-27] MEDS: ACYCLOVIR 200 MG CAP PO SCH ×2 (09:05→20:03)
[2017-04-27] MEDS: CEFEPIME INJ 2,000 MG in SODIUM CHLORIDE 0.9% INJ 100 ML IV SCH ×2 (09:05→17:15)
[2017-04-27] MEDS: GABAPENTIN 100 MG CAP PO SCH ×3 (09:05→17:15)
--- NOTE | 2017-04-27 09:06 | PD.ONC.PN ---
Subjective Subjective Remarks Afebrile overnight. Patient resting in bed. Eager to go home. No complaints. Right thigh pain improved. Objective Data Date Time Temp Pulse Resp B/P (MAP) Pulse Ox O2 Delivery O2 Flow Rate FiO2 04/27/17 08:22 Room Air 04/27/17 08:12 99.2 82 18 164/87 (112) 95 04/27/17 03:39 96.6 70 16 171/91 (117) 96 04/26/17 23:45 97.8 88 120/62 (81) 96 04/26/17 20:15 Room Air 04/26/17 20:15 97.8 76 16 130/64 (86) 96 04/26/17 20:15 94 04/26/17 17:00 98.8 80 18 144/71 98 04/26/17 16:00 Room Air 04/26/17 14:30 98.1 75 18 152/74 100 04/26/17 14:09 97.5 83 18 140/65 94 04/26/17 09:13 Room Air 04/27/17 04/27/17 04/27/17 07:00 15:00 23:00 Intake Total 1622.5 ml Output Total 950 ml 1000 ml Balance 672.5 ml -1000 ml Result Diagram: 04/27/17 0415 04/27/17 0415 Laboratory Results Laboratory Tests Test 04/26/17 14:58 04/27/17 04:15 Vancomycin Level Trough 15.9 MCG/ML White Blood Count 1.0 TH/MM3 Red Blood Count 2.84 MIL/MM3 Hemoglobin 7.9 GM/DL Hematocrit 22.9 % Mean Corpuscular Volume 80.4 FL Mean Corpuscular Hemoglobin 27.8 PG Mean Corpuscular Hemoglobin Concent 34.6 % Red Cell Distribution Width 17.4 % Platelet Count 24 TH/MM3 Mean Platelet Volume 7.5 FL CBC Comment AUTO DIFF Differential Total Cells Counted 50 Neutrophils % (Manual) 46 % Band Neutrophils % 6 % Lymphocytes % 40 % Monocytes % 8 % Neutrophils # (Manual) 0.5 TH/MM3 Differential Comment FINAL DIFF MANUAL Toxic Granulation 2+ Dohle Bodies PRESENT Platelet Estimate LOW Platelet Morphology Comment NORMAL Blood Urea Nitrogen 8 MG/DL Creatinine 0.46 MG/DL Random Glucose 97 MG/DL Total Protein 6.1 GM/DL Albumin 2.1 GM/DL Calcium Level 8.0 MG/DL Magnesium Level 1.9 MG/DL Alkaline Phosphatase 52 U/L Aspartate Amino Transf (AST/SGOT) 13 U/L Alanine Aminotransferase (ALT/SGPT) 13 U/L Total Bilirubin 1.0 MG/DL Direct Bilirubin 0.3 MG/DL Sodium Level 141 MEQ/L Potassium Level 3.5 MEQ/L Chloride Level 105 MEQ/L Carbon Dioxide Level 30.4 MEQ/L Anion Gap 6 MEQ/L Estimat Glomerular Filtration Rate 223 ML/MIN Indirect Bilirubin 0.7 MG/DL Culture Results Microbiology Date/Time Source Procedure Growth Status 04/25/17 11:24 Blood Other Aerobic Blood Culture - Preliminary NO GROWTH IN 1 DAY Resulted 04/25/17 11:24 Blood Other Anaerobic Blood Culture - Preliminary NO GROWTH IN 1 DAY Resulted 04/25/17 01:40 Blood Other Aerobic Blood Culture - Preliminary NO GROWTH IN 1 DAY Resulted 04/25/17 01:40 Blood Other Anaerobic Blood Culture - Preliminary NO GROWTH IN 1 DAY Resulted 04/25/17 01:32 Stool Stool Stool Occult Blood (SUNDAR) - Final HEMOCCULT NEGATIVE Complete Administered Medications Medications (Trade) Dose Ordered Sig/Emma Route PRN Reason Start Time Stop Time Status Last Admin Dose Admin Sodium Chloride (NS Flush) 2 ml BID IV FLUSH 04/18/17 21:00 04/26/17 20:49 Temazepam (Restoril) 15 mg HS PRN PO INSOMNIA 04/18/17 11:45 04/26/17 21:35 Senna/Docusate Sodium (Rika-Colace) 1 tab BID PO 04/18/17 21:00 04/24/17 20:11 Ondansetron HCl (Zofran Inj) 4 mg Q6H PRN IV PUSH NAUSEA OR VOMITING 04/18/17 22:00 04/27/17 04:16 Prochlorperazine Edisylate (Compazine Inj) 10 mg Q6H PRN IV SEE LABEL COMMENTS 04/19/17 00:45 04/26/17 20:46 Cefepime HCl 2000 mg/Sodium Chloride 100 ml @ 200 mls/hr Q8H IV 04/20/17 09:00 04/26/17 23:59 Acetaminophen (Tylenol) 650 mg Q4H PRN PO fever 04/20/17 18:30 04/26/17 12:34 Oxycodone HCl (Roxicodone) 10 mg Q6H PRN PO pain 1-10 04/21/17 09:15 04/27/17 03:34 Gabapentin (Neurontin) 100 mg TID PO 04/22/17 18:00 04/26/17 17:54 Vancomycin HCl 2250 mg/Sodium Chloride 522.5 ml @ 250 mls/hr Q8H IV 04/24/17 06:00 04/27/17 06:09 Duloxetine HCl (Cymbalta Dr) 30 mg DAILY PO 04/24/17 10:00 04/26/17 08:09 Morphine Sulfate (Oramorph Sr) 15 mg Q8HR PO 04/24/17 14:00 04/27/17 11:00 04/27/17 06:08 Acyclovir (Zovirax) 400 mg BID PO 04/26/17 21:00 04/26/17 21:27 Objective Remarks GENERAL: Young man, sitting up in chair next to bed in [facility]. SKIN: Warm and dry. HEAD: Normocephalic. EYES: No injection or drainage. MOUTH: no thrush NECK: Supple, trachea midline. CARDIOVASCULAR: Regular rate and rhythm RESPIRATORY: Breath sounds equal bilaterally. No accessory muscle use. GASTROINTESTINAL: Abdomen soft, non-tender, nondistended. EXTREMITIES: No cyanosis NEUROLOGICAL: awake and alert, normal speech. Assessment/Plan Problem List: (1) Neutropenic sepsis ICD Codes: A41.9 - Sepsis, unspecified organism; D70.9 - Neutropenia, unspecified Status: Resolved Plan: --BC 04/25; no growth --BC, 04/23, no growth --BC, 04/21, no growth --Blood cultures, 04/20, +GPC --on Cefepime, Vanco, Acyclovir --cxr--no acute disease --u/a--mixed GP clara (2) Pancytopenia ICD Codes: D61.818 - Other pancytopenia Plan: --due to chemotherapy --transfuse irradiated CMV negative blood products as needed. (3) AML (acute myelogenous leukemia) ICD Codes: C92.00 - Acute myeloblastic leukemia, not having achieved remission Status: Chronic (4) right thigh burning sensation Plan: --unclear etiology --differential includes Shingles vs. meralgia paresthetica vs muscle spasms vs other. -- on Gabapentin + Cymbalta. (5) Depression ICD Codes: F32.9 - Major depressive disorder, single episode, unspecified Plan: -- Patient reporting increased feelings of anxiety/depression -- on 30 mg Cymbalta for 1 week and then increase to 60 mg -- Hopeful that the Cymbalta will help with his generalized pain also Assessment 27y/o male with AML, admitted with pancytopenia, generalized weakness. Plan 1. give 1 unit pRBC 2. monitor CBC 3. continue Cefepime/Vanco 4. stop Protonix, Stop Carafate, stop IVF 5. wean off opiates Attending Statement The exam, history, and the medical decision-making described in the above note were completed with the assistance of the mid-level provider. I reviewed and agree with the findings presented. I attest that I had a [id number] encounter with the patient on the same day, and personally performed and documented my assessment and findings in the medical record Remains profoundly neutropenic and high risk for infections continue Vanc/Cefepime monitor for fever/lethargy pain in right thigh better taper pain meds d/c IV pain meds T.bili now normal Oral mucositis grade 1 --magic mouthwash port site --clean /no erythema or discharge d/w rn o/n events reviewed Long conversation with patient's father --he is concerned that when th epatient will return home that his apartment is not hygeinic and patient has 2 large dogs in a confined space. he is trying to convince the patient to stay at his residence Problem Qualifiers (1) AML (acute myelogenous leukemia): Qualified Codes: C92.01 - Acute myeloblastic leukemia, in remission Fartun Pagan Apr 27, 2017 09:06 Joey Santoyo MD Apr 27, 2017 23:48
--- NOTE | 2017-04-27 10:34 | HHI.IDPN ---
Subjective Subjective Remarks Patient is a 27-year-old male, with Dx of AML, went into remission after induction chemo last December 2016, has been on his second cycle of consolidation chemo, presented to the hospital for evaluation of blisters in his mouth and complaints of diffuse body aches and subjective fevers. He denies any respiratory, GI or complaints. He presented to the ED and was found to have neutropenia and severe thrombocytopenia. He did not have any bleeding at that time. Starting 04/19, he has developed fevers, and has been febrile. He was started on empiric Abx for fever and neutropenia. Currently on Vancomycin, Cefepime, Micafungin and Acyclovir. His mouth sores are gone. Still C/O diffuse body aches. He has a port that was placed December 2016, and has not had any problem with its use. One BC drawn from the post is not reported as growing GPC in clusters. Infectious Disease consultation has been requested to evaluate patient with fever, neutropenia and positive BC. Notes reviewed temps better Overall feels better WBC slowly increasing No new (+) BC Antibiotics Current Medications Vancomycin Cefepime Micafungin Acyclovir Medications (Trade) Dose Ordered Sig/Emma Route Start Time Stop Time Status Last Admin (NS Flush) 2 ml UNSCH PRN IV FLUSH 04/18/17 11:45 (NS Flush) 2 ml BID IV FLUSH 04/18/17 21:00 04/26/17 20:49 (Restoril) 15 mg HS PRN PO 04/18/17 11:45 04/26/17 21:35 (Narcan Inj) 0.4 mg UNSCH PRN IV PUSH 04/18/17 11:45 (Rika-Colace) 1 tab BID PO 04/18/17 21:00 04/24/17 20:11 (Milk Of Magnesia Liq) 30 ml Q12H PRN PO 04/18/17 11:45 (Senokot) 17.2 mg Q12H PRN PO 04/18/17 11:45 (Dulcolax Supp) 10 mg DAILY PRN RECTAL 04/18/17 11:45 (Lactulose Liq) 30 ml DAILY PRN PO 04/18/17 11:45 Patient Own Medication PT OWN MED: CYTARAB... Q30D IV 04/18/17 12:30 Future Hold (Zofran Inj) 4 mg Q6H PRN IV PUSH 04/18/17 22:00 04/27/17 04:16 (Compazine Inj) 10 mg Q6H PRN IV 04/19/17 00:45 04/26/17 20:46 Cefepime HCl 2000 mg/Sodium Chloride 100 ml @ 200 mls/hr Q8H IV 04/20/17 09:00 04/27/17 09:05 Pharmacy Profile Note 0 ml @ 0 mls/hr UNSCH OTHER 04/20/17 18:30 (Tylenol) 650 mg Q4H PRN PO 04/20/17 18:30 04/26/17 12:34 (Roxicodone) 10 mg Q6H PRN PO 04/21/17 09:15 04/27/17 03:34 (Neurontin) 100 mg TID PO 04/22/17 18:00 04/27/17 09:05 Vancomycin HCl 2250 mg/Sodium Chloride 522.5 ml @ 250 mls/hr Q8H IV 04/24/17 06:00 04/27/17 06:09 (Cymbalta Dr) 30 mg DAILY PO 04/24/17 10:00 04/27/17 09:05 (Oramorph Sr) 15 mg Q8HR PO 04/24/17 14:00 04/27/17 11:00 04/27/17 06:08 (Zovirax) 400 mg BID PO 04/26/17 21:00 04/27/17 09:05 Sodium Chloride 250 ml @ 15 mls/hr ONCE ONCE IV 04/27/17 08:30 04/28/17 01:09 04/27/17 10:02 (Tylenol) 650 mg Q4H PRN PO 04/27/17 08:30 04/27/17 09:05 (Benadryl) 25 mg Q4H PRN PO 04/27/17 08:30 04/27/17 09:05 (Magic Mouthwash Adult Liq) 10 ml QID PRN PO 04/27/17 09:00 Lines Port Past Medical History AML, S/P induction, now on consolidation chemo. Upper GI bleed Esophageal ulcer and Ladan esophagitis Past Surgical History Port placement Allergies: Coded Allergies: No Known Allergies (Verified Allergy, Unknown, 12/10/17) Objective . Vital Signs Date Time Temp Pulse Resp B/P (MAP) Pulse Ox O2 Delivery O2 Flow Rate FiO2 04/27/17 10:23 98.6 70 18 150/85 95 04/27/17 09:56 97.7 70 18 170/87 98 04/27/17 08:30 97 21 04/27/17 08:22 Room Air 04/27/17 08:12 99.2 82 18 164/87 (112) 95 04/27/17 03:39 96.6 70 16 171/91 (117) 96 04/26/17 23:45 97.8 88 120/62 (81) 96 04/26/17 20:15 Room Air 04/26/17 20:15 97.8 76 16 130/64 (86) 96 04/26/17 20:15 94 04/26/17 17:00 98.8 80 18 144/71 98 04/26/17 16:00 Room Air 04/26/17 14:30 98.1 75 18 152/74 100 04/26/17 14:09 97.5 83 18 140/65 94 04/27/17 04/27/17 04/28/17 15:00 23:00 07:00 Intake Total 822.5 ml Output Total 1000 ml Balance -177.5 ml IV Total 822.5 ml Output Urine Total 1000 ml . Laboratory Tests Test 04/25/17 18:20 04/26/17 05:40 04/27/17 04:15 White Blood Count 0.8 TH/MM3 0.9 TH/MM3 1.0 TH/MM3 Red Blood Count 2.75 MIL/MM3 2.68 MIL/MM3 2.84 MIL/MM3 Hemoglobin 7.5 GM/DL 7.4 GM/DL 7.9 GM/DL Hematocrit 21.8 % 21.5 % 22.9 % Mean Corpuscular Volume 79.4 FL 80.0 FL 80.4 FL Mean Corpuscular Hemoglobin 27.3 PG 27.8 PG 27.8 PG Mean Corpuscular Hemoglobin Concent 34.4 % 34.7 % 34.6 % Red Cell Distribution Width 18.1 % 18.2 % 17.4 % Platelet Count 17 TH/MM3 24 TH/MM3 24 TH/MM3 Mean Platelet Volume 7.8 FL 8.0 FL 7.5 FL Neutrophils (%) (Auto) 44.8 % Lymphocytes (%) (Auto) 41.8 % Monocytes (%) (Auto) 13.1 % Eosinophils (%) (Auto) 0.1 % Basophils (%) (Auto) 0.2 % Neutrophils # (Auto) 0.4 TH/MM3 Lymphocytes # (Auto) 0.4 TH/MM3 Monocytes # (Auto) 0.1 TH/MM3 Eosinophils # (Auto) 0.0 TH/MM3 Basophils # (Auto) 0.0 TH/MM3 CBC Comment AUTO DIFF AUTO DIFF Differential Total Cells Counted 100 50 Neutrophils % (Manual) 53 % 46 % Lymphocytes % 42 % 40 % Monocytes % 5 % 8 % Neutrophils # (Manual) 0.5 TH/MM3 0.5 TH/MM3 Differential Comment FINAL DIFF MANUAL FINAL DIFF MANUAL Platelet Estimate LOW LOW Platelet Morphology Comment NORMAL NORMAL Band Neutrophils % 6 % Toxic Granulation 2+ Dohle Bodies PRESENT Laboratory Tests Test 04/26/17 05:40 04/27/17 04:15 Blood Urea Nitrogen 7 MG/DL 8 MG/DL Creatinine 0.55 MG/DL 0.46 MG/DL Random Glucose 109 MG/DL 97 MG/DL Calcium Level 8.1 MG/DL 8.0 MG/DL Sodium Level 139 MEQ/L 141 MEQ/L Potassium Level 3.1 MEQ/L 3.5 MEQ/L Chloride Level 102 MEQ/L 105 MEQ/L Carbon Dioxide Level 31.3 MEQ/L 30.4 MEQ/L Anion Gap 6 MEQ/L 6 MEQ/L Estimat Glomerular Filtration Rate 182 ML/MIN 223 ML/MIN Total Protein 6.1 GM/DL Albumin 2.1 GM/DL Magnesium Level 1.9 MG/DL Alkaline Phosphatase 52 U/L Aspartate Amino Transf (AST/SGOT) 13 U/L Alanine Aminotransferase (ALT/SGPT) 13 U/L Total Bilirubin 1.0 MG/DL Direct Bilirubin 0.3 MG/DL Indirect Bilirubin 0.7 MG/DL Microbiology Date/Time Source Procedure Growth Status 04/25/17 11:24 Blood Other Aerobic Blood Culture - Preliminary NO GROWTH IN 1 DAY Resulted 04/25/17 11:24 Blood Other Anaerobic Blood Culture - Preliminary NO GROWTH IN 1 DAY Resulted 04/25/17 01:40 Blood Other Aerobic Blood Culture - Preliminary NO GROWTH IN 1 DAY Resulted 04/25/17 01:40 Blood Other Anaerobic Blood Culture - Preliminary NO GROWTH IN 1 DAY Resulted 04/25/17 01:32 Stool Stool Stool Occult Blood (SUNDAR) - Final HEMOCCULT NEGATIVE Complete Imaging Last Impressions Chest X-Ray 04/20/17 0000 Signed Impressions: Service Date/Time: Thursday, April 20, 2017 10:06 - CONCLUSION: No acute cardiopulmonary process. Bean Dugan MD Physical Exam GENERAL: awake and alert, not in respiratory distress. SKIN: Warm and dry. No generalized rash, no ecchymoses HEAD: Atraumatic. Normocephalic. No temporal wasting, or tenderness. EYES: Gazelle conjunctiva. No petechia or hemorrhage. Pupils equal, round and reactive to light. No scleral icterus. No injection or drainage. EARS, NOSE AND THROAT: Nose without bleeding or purulent nasal discharge. No sinus tenderness. Mucous membranes pink and moist. White coating on his tongue, no ulcers noted NECK: Trachea midline. Supple and not tender, no meningeal signs CARDIOVASCULAR: Regular rate and rhythm. No murmurs, rubs or gallops heard RESPIRATORY: Clear to auscultation. Breath sounds equal bilaterally. No rales , wheezing or rhonchi. Decreased at bases ABDOMEN: Soft, non-tender, nondistended. Bowel sounds present and normoactive. No guarding. No rebound. No organomegaly. EXTREMITIES: No clubbing, cyanosis, or edema.No joint effusion, has good ROM. No calf tenderness. Well perfused and warm. NEUROLOGICAL: Awake and alert. Cranial nerves grossly intact. Motor grossly within normal limits. PSYCHIATRIC: Normal affect, calm and cooperative. LINE: Port in R upper chest, with no evidence of infection Assessment & Plan Remarks IMPRESSION Neutropenic fevers, S/P second cycle consolidation chemo for AML - temps better - WBC slightly higher Rothia bacteremia, ?transient from oral source AML Thrombocytopenia post chemo RECOMMENDATION Continue Vancomycin which will cover the Rothia - at least 7 days Continue Cefepime and Micafungin Also on Acyclovir Follow new C/S Monitor temps Follow counts Monitor progress Deescalate Abx once counts up I will be OOT 04/28-05/03 Other ID covering in my absence Courtney Nugent MD Apr 27, 2017 10:34
--- NOTE | 2017-04-27 10:52 | HHI.PR ---
Subjective Remarks Denies cp, sob. afebrile. Poor appetite but eating well, denies nausea, vomiting or diarrhea. Objective Vitals Vital Signs Date Time Temp Pulse Resp B/P (MAP) Pulse Ox O2 Delivery O2 Flow Rate FiO2 04/27/17 10:23 98.6 70 18 150/85 95 04/27/17 09:56 97.7 70 18 170/87 98 04/27/17 08:30 97 21 04/27/17 08:22 Room Air 04/27/17 08:12 99.2 82 18 164/87 (112) 95 04/27/17 07:00 70 04/27/17 03:39 96.6 70 16 171/91 (117) 96 04/26/17 23:45 97.8 88 120/62 (81) 96 04/26/17 20:15 Room Air 04/26/17 20:15 97.8 76 16 130/64 (86) 96 04/26/17 20:15 94 04/26/17 17:00 98.8 80 18 144/71 98 04/26/17 16:00 Room Air 04/26/17 14:30 98.1 75 18 152/74 100 04/26/17 14:09 97.5 83 18 140/65 94 I/O 04/26/17 04/26/17 04/26/17 04/27/17 04/27/17 04/27/17 07:00 15:00 23:00 07:00 15:00 23:00 Intake Total 338 ml 115 ml 1470 ml 1622.5 ml 822.5 ml Output Total 900 ml 2950 ml 950 ml 1000 ml Balance -562 ml 115 ml -1480 ml 672.5 ml -177.5 ml Intake Oral 400 ml IV Total 100 ml 115 ml 670 ml 1622.5 ml 822.5 ml Packed Cells 400 ml Platelets 188 ml Blood Product IV Normal Saline Flush 50 ml Output Urine Total 900 ml 2950 ml 950 ml 1000 ml Result Diagram: 04/27/17 0415 04/27/17 0415 Imaging Last Impressions Chest X-Ray 04/23/17 0000 Signed Impressions: Service Date/Time: Sunday, April 23, 2017 19:38 - CONCLUSION: 1. Basilar dependent opacity most characteristic of atelectasis. No effusion or pneumothorax. Leander Fiore MD Objective Remarks GENERAL: Well-nourished, well-developed pleasant obese male patient. SKIN: Warm and dry. HEAD: Normocephalic. EYES: No scleral icterus. No injection or drainage. NECK: Supple, trachea midline. No JVD or lymphadenopathy. CARDIOVASCULAR: Regular rate and rhythm without murmurs, gallops, or rubs. RESPIRATORY: Breath sounds equal bilaterally. No accessory muscle use. GASTROINTESTINAL: Abdomen soft, non-tender, nondistended. EXTREMITIES: No cyanosis, or edema. NEUROLOGICAL: Awake, alert, and oriented x 3. Non-focal. Medications and IVs Current Medications Medications (Trade) Dose Ordered Sig/Emma Route Start Time Stop Time Status Last Admin (NS Flush) 2 ml UNSCH PRN IV FLUSH 04/18/17 11:45 (NS Flush) 2 ml BID IV FLUSH 04/18/17 21:00 04/26/17 20:49 (Restoril) 15 mg HS PRN PO 04/18/17 11:45 04/26/17 21:35 (Narcan Inj) 0.4 mg UNSCH PRN IV PUSH 04/18/17 11:45 (Rika-Colace) 1 tab BID PO 04/18/17 21:00 04/24/17 20:11 (Milk Of Magnesia Liq) 30 ml Q12H PRN PO 04/18/17 11:45 (Senokot) 17.2 mg Q12H PRN PO 04/18/17 11:45 (Dulcolax Supp) 10 mg DAILY PRN RECTAL 04/18/17 11:45 (Lactulose Liq) 30 ml DAILY PRN PO 04/18/17 11:45 Patient Own Medication PT OWN MED: CYTARAB... Q30D IV 04/18/17 12:30 Future Hold (Zofran Inj) 4 mg Q6H PRN IV PUSH 04/18/17 22:00 04/27/17 04:16 (Compazine Inj) 10 mg Q6H PRN IV 04/19/17 00:45 04/26/17 20:46 Cefepime HCl 2000 mg/Sodium Chloride 100 ml @ 200 mls/hr Q8H IV 04/20/17 09:00 04/27/17 09:05 Pharmacy Profile Note 0 ml @ 0 mls/hr UNSCH OTHER 04/20/17 18:30 (Tylenol) 650 mg Q4H PRN PO 04/20/17 18:30 04/26/17 12:34 (Roxicodone) 10 mg Q6H PRN PO 04/21/17 09:15 04/27/17 03:34 (Neurontin) 100 mg TID PO 04/22/17 18:00 04/27/17 09:05 Vancomycin HCl 2250 mg/Sodium Chloride 522.5 ml @ 250 mls/hr Q8H IV 04/24/17 06:00 04/27/17 06:09 (Cymbalta Dr) 30 mg DAILY PO 04/24/17 10:00 04/27/17 09:05 (Zovirax) 400 mg BID PO 04/26/17 21:00 04/27/17 09:05 Sodium Chloride 250 ml @ 15 mls/hr ONCE ONCE IV 04/27/17 08:30 04/28/17 01:09 04/27/17 10:02 (Tylenol) 650 mg Q4H PRN PO 04/27/17 08:30 04/27/17 09:05 (Benadryl) 25 mg Q4H PRN PO 04/27/17 08:30 04/27/17 09:05 (Magic Mouthwash Adult Liq) 10 ml QID PRN PO 04/27/17 09:00 Vascular Central Line Catheter: Yes Assessment to: Continue Line: Central Venous Catheter Side: Right Location: Subclavian Reason for Continuation chemotherapy A/P Problem List: (1) Meralgia paraesthetica ICD Code: G57.10 - Meralgia paresthetica, unspecified lower limb Status: Resolved (2) Bacteremia, coagulase-negative staphylococcal ICD Code: R78.81 - Bacteremia Status: Acute (3) Neutropenic fever ICD Code: D70.9 - Neutropenia, unspecified; R50.81 - Fever presenting with conditions classified elsewhere Status: Acute (4) Pancytopenia due to antineoplastic chemotherapy ICD Code: D61.810 - Antineoplastic chemotherapy induced pancytopenia; T45.1X5A - Adverse effect of antineoplastic and immunosuppressive drugs, initial encounter Status: Acute (5) Sepsis ICD Code: A41.9 - Sepsis, unspecified organism Status: Resolved (6) AML (acute myelogenous leukemia) ICD Code: C92.00 - Acute myeloblastic leukemia, not having achieved remission Status: Chronic (7) Generalized pain ICD Code: R52 - Pain, unspecified Status: Resolved (8) Hematemesis ICD Code: K92.0 - Hematemesis Status: Resolved Assessment and Plan 27-year-old male admitted with Neutropenic Fever with Sepsis and Pancytopenia, who has underlying AML. continue to monitor vital signs and fevers. Continue to transfuse as needed. Monitor for any signs of progression of sepsis. Pancytopenia Neutropenic Fever, bacteremia staph coag negative now changed to Rothia spp x 2 BC/ sepsis AML Generalized Pain Continue Abx per ID/Dr. Nugent - Vancomycin, Cefepime, micafungin, acyclovir Follow repeat blood cultures Hematology/Oncology following Replace PRBC and Platelets as needed per hematology Continue Pain treatments Follow vital signs closely Defer to ID whether port needs to be removed 04/27 Agree with transfusion of 1 unit of PRBC. Monitor CBC. Right thigh pain - suspect meralgia paresthetica, also has generalized pain improved after starting Neurontin - will continue and titrate up as needed Started on Cymbalta Started on Oramorph 15 mg every 8 hours on 04/24 and continue morphine IV for breakthrough pain 04/27 Right thigh pain controlled. Continue Neurontin, Cymbalta, oramorph and Morphine IV for breakthrough pain. Hematemesis 1 GI consulted. recommendations appreciated. EGD contraindicated due to thrombocytopenia. Monitor for recurrence. Continue magic mouthwash. DVT PPx SCDs Anticoagulation on hold due to degree of anemia and high bleed risks Problem Qualifiers (1) AML (acute myelogenous leukemia): Qualified Codes: C92.01 - Acute myeloblastic leukemia, in remission Jere Gomez MD Apr 27, 2017 10:52
[2017-04-27] MEDS ORDERED: POTASSIUM CHLORIDE 10 MEQ CONTROLLED RELEASE TAB PO ONE (11:00)
[2017-04-27] MEDS ORDERED: PHARMACY ORDERED LAB ONE (13:45)
[2017-04-27] MEDS: PROCHLORPERAZINE INJ 10 MG/2 ML VIAL IV PRN (20:03)
[2017-04-27] MEDS: TEMAZEPAM 15 MG CAP PO PRN (20:29)
[2017-04-27] MEDS ORDERED: HYDROmorphone HCL PF 2 MG/ML VIAL IV PUSH ONE (21:00)
[2017-04-28] MEDS: CEFEPIME INJ 2,000 MG in SODIUM CHLORIDE 0.9% INJ 100 ML IV SCH ×2 (01:15→08:03)
[2017-04-28 01:16] VITALS: BP 156/72; PULSE 65; RESP 18; TEMP 97.8; O2SAT 95
[2017-04-28 05:01] VITALS: BP 173/69; PULSE 59; RESP 16; TEMP 99.2; O2SAT 93
[2017-04-28 05:25] LABS: MEAN CELL VOLUME 79.4 FL (80.0-100.0); MEAN CORPUSCULAR HEMOGLOBIN 27.5 PG (27.0-34.0); MEAN CORPUSCULAR HGB CONC 34.7 % (32.0-36.0); RED BLOOD COUNT 3.03 MIL/MM3 (4.50-5.90); RED CELL DISTRIBUTION WIDTH 17.2 % (11.6-17.2); WHITE BLOOD COUNT 1.4 TH/MM3 (4.0-11.0)
[2017-04-28 05:45] LABS: MAGNESIUM 1.9 MG/DL (1.5-2.5); POTASSIUM 3.3 MEQ/L (3.5-5.1)
[2017-04-28] MEDS: VANCOMYCIN INJ 2,250 MG in SODIUM CHLORID 0.9% 500 ML INJ 500 ML IV SCH ×2 (05:52→12:30)
[2017-04-28 06:17] LABS: HEMO FLAGS AUTO DIFF
[2017-04-28 06:18] LABS: PLATELET COUNT 18 TH/MM3 (150-450)
[2017-04-28 07:00] VITALS: PULSE 45
[2017-04-28 08:01] VITALS: BP 159/76; PULSE 53; RESP 18; TEMP 98.2; O2SAT 99
[2017-04-28] MEDS: GABAPENTIN 100 MG CAP PO SCH ×2 (08:03→12:16)
[2017-04-28] MEDS: DULoxetine HCl DR 30 MG CAP PO SCH (08:03)
[2017-04-28] MEDS: ACYCLOVIR 200 MG CAP PO SCH (08:03)
[2017-04-28 08:04] LABS: BANDS 22 % (0-6); NEUTROPHIL # MANUAL DIFF 0.7 TH/MM3 (1.8-7.7); POLYS (SEG NEUTROPHILS) 30 % (16-70); WBC DIFF SAMPLE 100
[2017-04-28] MEDS: DOCUSATE SODIUM 50 MG/SENNA 8.6 MG TAB PO SCH (08:04)
[2017-04-28] MEDS: SODIUM CHLORIDE 0.9% FLUSH 10 ML FLUSH IV FLUSH SCH (08:04)
[2017-04-28 08:05] LABS: PLATELET ESTIMATE SMEAR RARE (NORMAL); PLATELET MORPHOLOGY NORMAL (NORMAL); SCAN/DIFF FINAL DIFF MANUAL
[2017-04-28] MEDS: ONDANSETRON HCL 4 MG/2 ML VIAL IV PUSH PRN (08:07)
[2017-04-28] MEDS ORDERED: amLODIPine BESYLATE 5 MG TAB PO SCH (09:15)
--- NOTE | 2017-04-28 09:28 | PD.ONC.PN ---
Subjective Subjective Remarks Patient remains afebrile Anxious to go home Pain overall much improved Having some mild nausea Objective Data Date Time Temp Pulse Resp B/P (MAP) Pulse Ox O2 Delivery O2 Flow Rate FiO2 04/28/17 08:12 Room Air 04/28/17 08:01 98.2 53 18 159/76 (103) 99 04/28/17 07:00 45 04/28/17 05:10 94 Room Air 04/28/17 05:01 99.2 59 16 173/69 (103) 93 04/28/17 01:16 97.8 65 18 156/72 (100) 95 04/27/17 22:02 94 21 04/27/17 20:15 98.2 66 20 147/67 (93) 97 04/27/17 20:07 67 04/27/17 17:14 98.8 77 18 169/72 (104) 97 04/27/17 13:06 96.9 70 18 154/89 96 04/27/17 10:23 98.6 70 18 150/85 95 04/27/17 09:56 97.7 70 18 170/87 98 04/28/17 04/28/17 04/28/17 07:00 15:00 23:00 Intake Total 622.5 ml Output Total 950 ml 1250 ml Balance -327.5 ml -1250 ml Result Diagram: 04/28/17 0500 04/28/17 0500 Laboratory Results Laboratory Tests Test 04/28/17 05:00 White Blood Count 1.4 TH/MM3 Red Blood Count 3.03 MIL/MM3 Hemoglobin 8.3 GM/DL Hematocrit 24.0 % Mean Corpuscular Volume 79.4 FL Mean Corpuscular Hemoglobin 27.5 PG Mean Corpuscular Hemoglobin Concent 34.7 % Red Cell Distribution Width 17.2 % Platelet Count 18 TH/MM3 Mean Platelet Volume 7.3 FL CBC Comment AUTO DIFF Differential Total Cells Counted 100 Neutrophils % (Manual) 30 % Band Neutrophils % 22 % Lymphocytes % 39 % Monocytes % 9 % Neutrophils # (Manual) 0.7 TH/MM3 Differential Comment FINAL DIFF MANUAL Platelet Estimate RARE Platelet Morphology Comment NORMAL Blood Urea Nitrogen 6 MG/DL Creatinine 0.45 MG/DL Random Glucose 89 MG/DL Calcium Level 8.3 MG/DL Phosphorus Level 3.5 MG/DL Magnesium Level 1.9 MG/DL Sodium Level 141 MEQ/L Potassium Level 3.3 MEQ/L Chloride Level 101 MEQ/L Carbon Dioxide Level 33.0 MEQ/L Anion Gap 7 MEQ/L Estimat Glomerular Filtration Rate 229 ML/MIN Culture Results Microbiology Date/Time Source Procedure Growth Status 04/25/17 11:24 Blood Other Aerobic Blood Culture - Preliminary NO GROWTH IN 2 DAYS Resulted 04/25/17 11:24 Blood Other Anaerobic Blood Culture - Preliminary NO GROWTH IN 2 DAYS Resulted Administered Medications Medications (Trade) Dose Ordered Sig/Emma Route PRN Reason Start Time Stop Time Status Last Admin Dose Admin Sodium Chloride (NS Flush) 2 ml BID IV FLUSH 04/18/17 21:00 04/28/17 08:04 Temazepam (Restoril) 15 mg HS PRN PO INSOMNIA 04/18/17 11:45 04/27/17 20:29 Senna/Docusate Sodium (Rika-Colace) 1 tab BID PO 04/18/17 21:00 04/24/17 20:11 Ondansetron HCl (Zofran Inj) 4 mg Q6H PRN IV PUSH NAUSEA OR VOMITING 04/18/17 22:00 04/28/17 08:07 Prochlorperazine Edisylate (Compazine Inj) 10 mg Q6H PRN IV SEE LABEL COMMENTS 04/19/17 00:45 04/27/17 20:03 Cefepime HCl 2000 mg/Sodium Chloride 100 ml @ 200 mls/hr Q8H IV 04/20/17 09:00 04/28/17 08:03 Acetaminophen (Tylenol) 650 mg Q4H PRN PO fever 04/20/17 18:30 04/26/17 12:34 Oxycodone HCl (Roxicodone) 10 mg Q6H PRN PO pain 1-10 04/21/17 09:15 04/27/17 20:04 Gabapentin (Neurontin) 100 mg TID PO 04/22/17 18:00 04/28/17 08:03 Vancomycin HCl 2250 mg/Sodium Chloride 522.5 ml @ 250 mls/hr Q8H IV 04/24/17 06:00 04/28/17 05:52 Duloxetine HCl (Cymbalta Dr) 30 mg DAILY PO 04/24/17 10:00 04/28/17 08:03 Acyclovir (Zovirax) 400 mg BID PO 04/26/17 21:00 04/28/17 08:03 Acetaminophen (Tylenol) 650 mg Q4H PRN PO SEE LABEL COMMENTS 04/27/17 08:30 04/27/17 09:05 Diphenhydramine HCl (Benadryl) 25 mg Q4H PRN PO SEE LABEL COMMENTS 04/27/17 08:30 04/27/17 09:05 Objective Remarks GENERAL: Young man, resting in bed in no acute distress SKIN: Warm and dry. HEAD: Normocephalic. EYES: No injection or drainage. MOUTH: No thrush NECK: Supple, trachea midline. CARDIOVASCULAR: Regular rate and rhythm RESPIRATORY: Breath sounds equal bilaterally. No accessory muscle use. GASTROINTESTINAL: Abdomen soft, non-tender, nondistended. EXTREMITIES: No cyanosis. No edema NEUROLOGICAL: Awake and alert, normal speech. Moving all extremities. Assessment/Plan Problem List: (1) Neutropenic sepsis ICD Codes: A41.9 - Sepsis, unspecified organism; D70.9 - Neutropenia, unspecified Status: Resolved Plan: --BC 04/25; no growth --BC, 04/23, no growth --BC, 04/21, no growth --Blood cultures, 04/20, +GPC --on Cefepime, Vanco, Acyclovir --cxr--no acute disease --u/a--mixed GP clara (2) Pancytopenia ICD Codes: D61.818 - Other pancytopenia Plan: --due to chemotherapy --transfuse irradiated CMV negative blood products as needed. (3) AML (acute myelogenous leukemia) ICD Codes: C92.00 - Acute myeloblastic leukemia, not having achieved remission Status: Chronic (4) right thigh burning sensation Plan: --unclear etiology --differential includes Shingles vs. meralgia paresthetica vs muscle spasms vs other. -- on Gabapentin + Cymbalta. (5) Depression ICD Codes: F32.9 - Major depressive disorder, single episode, unspecified Plan: -- Patient reporting increased feelings of anxiety/depression -- on 30 mg Cymbalta for 1 week and then increase to 60 mg -- Hopeful that the Cymbalta will help with his generalized pain also Assessment 27y/o male with AML, admitted with pancytopenia, generalized weakness. Plan 1. Transfuse one unit irradiated platelets 2. monitor CBC 3. Stop Vanco; continue cefepime. Resume Bactrim DS Wednesday. 4. Reassess neutrophils in am; if they continue to improve he will likely be able to be discharged if he remains afebrile Attending Statement The exam, history, and the medical decision-making described in the above note were completed with the assistance of the mid-level provider. I reviewed and agree with the findings presented. I attest that I had a [id number] encounter with the patient on the same day, and personally performed and documented my assessment and findings in the medical record AML in CR # 1 profound pancytopenia Neutropenia improving afebrile overnight needs to have sustained increase in ANC over the next 24 hours to be considered for discharge patient insisting on leaving AMA Not cleared for discharge form Hematology standpoint Given platelets today stop Vanco start Bactrim DS MWF continue cefepime monitor CBC d/w rn o/n events reviewed Problem Qualifiers (1) AML (acute myelogenous leukemia): Qualified Codes: C92.01 - Acute myeloblastic leukemia, in remission Robina Cui Apr 28, 2017 09:28 Joey Santoyo MD Apr 29, 2017 00:33
[2017-04-28] MEDS ORDERED: diphenhydrAMINE HCL 25 MG CAP PO PRN (09:30)
[2017-04-28] MEDS ORDERED: SODIUM CHLOR 0.9% 250 ML INJ 250 ML IV ONE (09:30)
[2017-04-28] MEDS ORDERED: ACETAMINOPHEN 325 MG TAB PO PRN (09:30)
[2017-04-28 10:18] VITALS: O2SAT 99
[2017-04-28 12:11] VITALS: BP 162/82; PULSE 55; RESP 18; TEMP 98.6; O2SAT 99
[2017-04-28] MEDS ORDERED: DULO1CAP2 PO (16:04)
[2017-04-28] MEDS ORDERED: REST15CA PO (16:04)
[2017-04-28] MEDS ORDERED: GABA100C4 PO (16:04)
[2017-04-28] MEDS ORDERED: AMLO5 PO (16:04)
--- NOTE | 2017-04-28 16:07 | HHI.DS ---
Discharge Summary Admission Date Apr 18, 2017 at 10:50 Discharge Date: Apr 28, 2017 Admitting Diagnosis critical thrombocytopenia, AML (1) Neutropenic fever Diagnosis: Principal ICD Codes: D70.9 - Neutropenia, unspecified; R50.81 - Fever presenting with conditions classified elsewhere Status: Resolved (2) Meralgia paraesthetica Diagnosis: Principal ICD Codes: G57.10 - Meralgia paresthetica, unspecified lower limb Status: Resolved (3) Bacteremia, coagulase-negative staphylococcal Diagnosis: Principal ICD Codes: R78.81 - Bacteremia Status: Resolved (4) Pancytopenia due to antineoplastic chemotherapy Diagnosis: Principal ICD Codes: D61.810 - Antineoplastic chemotherapy induced pancytopenia; T45.1X5A - Adverse effect of antineoplastic and immunosuppressive drugs, initial encounter Status: Acute (5) Sepsis Diagnosis: Principal ICD Codes: A41.9 - Sepsis, unspecified organism Status: Resolved (6) AML (acute myelogenous leukemia) Diagnosis: Principal ICD Codes: C92.00 - Acute myeloblastic leukemia, not having achieved remission Status: Chronic (7) Generalized pain Diagnosis: Principal ICD Codes: R52 - Pain, unspecified Status: Resolved (8) Hematemesis Diagnosis: Principal ICD Codes: K92.0 - Hematemesis Status: Resolved Procedures none Brief History 27-year-old male with PMH of AML candidate for BM transplant, morbidly obese BMI 43. Came for further evaluation after receiving chemo as he has more pain and labs abnormal. The patient complains of diffuse pain all over. He says he gets this after chemotherapy for AML. He had it one week ago. He skipped his oncology appointment 2 days ago. He denies fever today. He has developed some lesions in his mouth. No active bleeding. Severity is moderate. Duration 3 days. No alleviating factors. Symptoms exacerbated by chemotherapy. Patient with pancytopenia. No overt bleeding at this time. No fever or chills. However says he had fever or chills. Discussed with hem/onc, will transfuse PLT. CBC/BMP: 04/28/17 0500 04/28/17 0500 Significant Findings Laboratory Tests Test 04/25/17 18:20 04/26/17 05:40 04/26/17 14:58 04/27/17 04:15 White Blood Count 0.8 TH/MM3 (4.0-11.0) 0.9 TH/MM3 (4.0-11.0) 1.0 TH/MM3 (4.0-11.0) Red Blood Count 2.75 MIL/MM3 (4.50-5.90) 2.68 MIL/MM3 (4.50-5.90) 2.84 MIL/MM3 (4.50-5.90) Hemoglobin 7.5 GM/DL (13.0-17.0) 7.4 GM/DL (13.0-17.0) 7.9 GM/DL (13.0-17.0) Hematocrit 21.8 % (39.0-51.0) 21.5 % (39.0-51.0) 22.9 % (39.0-51.0) Mean Corpuscular Volume 79.4 FL (80.0-100.0) Red Cell Distribution Width 18.1 % (11.6-17.2) 18.2 % (11.6-17.2) 17.4 % (11.6-17.2) Platelet Count 17 TH/MM3 (150-450) 24 TH/MM3 (150-450) 24 TH/MM3 (150-450) Monocytes (%) (Auto) 13.1 % (0.0-8.0) Neutrophils # (Auto) 0.4 TH/MM3 (1.8-7.7) Lymphocytes # (Auto) 0.4 TH/MM3 (1.0-4.8) Neutrophils # (Manual) 0.5 TH/MM3 (1.8-7.7) 0.5 TH/MM3 (1.8-7.7) Platelet Estimate LOW (NORMAL) LOW (NORMAL) Creatinine 0.55 MG/DL (0.60-1.30) 0.46 MG/DL (0.60-1.30) Random Glucose 109 MG/DL (74-106) Calcium Level 8.1 MG/DL (8.5-10.1) 8.0 MG/DL (8.5-10.1) Potassium Level 3.1 MEQ/L (3.5-5.1) Vancomycin Level Trough 15.9 MCG/ML (5.0-10.0) Toxic Granulation 2+ (NORMAL) Dohle Bodies PRESENT (NONE SEEN) Total Protein 6.1 GM/DL (6.4-8.2) Albumin 2.1 GM/DL (3.4-5.0) Aspartate Amino Transf (AST/SGOT) 13 U/L (15-37) Direct Bilirubin 0.3 MG/DL (0.0-0.2) Test 04/28/17 05:00 White Blood Count 1.4 TH/MM3 (4.0-11.0) Red Blood Count 3.03 MIL/MM3 (4.50-5.90) Hemoglobin 8.3 GM/DL (13.0-17.0) Hematocrit 24.0 % (39.0-51.0) Mean Corpuscular Volume 79.4 FL (80.0-100.0) Platelet Count 18 TH/MM3 (150-450) Band Neutrophils % 22 % (0-6) Monocytes % 9 % (0-8) Neutrophils # (Manual) 0.7 TH/MM3 (1.8-7.7) Platelet Estimate RARE (NORMAL) Blood Urea Nitrogen 6 MG/DL (7-18) Creatinine 0.45 MG/DL (0.60-1.30) Calcium Level 8.3 MG/DL (8.5-10.1) Potassium Level 3.3 MEQ/L (3.5-5.1) Carbon Dioxide Level 33.0 MEQ/L (21.0-32.0) Imaging Last Impressions Chest X-Ray 04/23/17 0000 Signed Impressions: Service Date/Time: Sunday, April 23, 2017 19:38 - CONCLUSION: 1. Basilar dependent opacity most characteristic of atelectasis. No effusion or pneumothorax. Leander Fiore MD PE at Discharge GENERAL: Well-nourished, well-developed pleasant obese male patient. SKIN: Warm and dry. Pale skin. HEAD: Normocephalic. EYES: No scleral icterus. No injection or drainage. NECK: Supple, trachea midline. No JVD or lymphadenopathy. CARDIOVASCULAR: Regular rate and rhythm without murmurs, gallops, or rubs. RESPIRATORY: Breath sounds equal bilaterally. No accessory muscle use. GASTROINTESTINAL: Abdomen soft, non-tender, nondistended. EXTREMITIES: No cyanosis, or edema. NEUROLOGICAL: Awake, alert, and oriented x 3. Non-focal. Hospital Course 27-year-old male admitted with Neutropenic Fever with Sepsis and Pancytopenia, who has underlying AML. continue to monitor vital signs and fevers. Continue to transfuse as needed. Monitor for any signs of progression of sepsis. Pancytopenia Neutropenic Fever, bacteremia staph coag negative now changed to Rothia spp x 2 BC/ sepsis AML Generalized Pain The patient was admitted to the medical floor. ID consulted and the patient was started on IV antibiotics. The patient was treated with IV vancomycin, cefepime, micafungin, as it liver. Blood cultures grew 1 bottle positive fro Rothia Species. Repeat blood cultures were negative to date at the moment of discharge. Blood cultures were followed. Hematology and oncology was consulted. The patient was transfused with multiple blood products including 7 units of irradiated leukocyte reduced red blood cells, 2 units of fresh frozen plasma and 6 units of irradiated leukocyte reduced platelets. Right thigh pain - Neuralgia paresthetica suspected. The patient was started on Neurontin and Cymbalta which seemed to have improved the right thigh pain. Patient also started on Oramorph 50 mg every 8 hours, morphine IV, Dilaudid IV for breakthrough pain. Hematemesis 1 GI consulted. recommendations appreciated. EGD contraindicated due to thrombocytopenia. Monitor for recurrence. Patient was given Magic mouthwash. The patient decided to leave AMA despite RN talking to him, as well as myself earlier today. DVT PPx SCDs Anticoagulation on hold due to degree of anemia and high bleed risks Discharge Disposition: Discharge Home (Left AMA) Discharge Instructions New Medications: Amlodipine (Norvasc) 5 Mg Tab 5 MG PO DAILY for Blood Pressure Management, #[address] (Duloxetine DR) 30 Mg Capdr 30 MG PO DAILY for Depression Control, #31 CAP Gabapentin (Gabapentin) 100 Mg Cap 100 MG PO TID for neuropathy, #93 CAP Temazepam (Restoril) 15 Mg Cap 15 MG PO HS PRN for INSOMNIA, #31 CAP Continued Medications: Clonazepam (Klonopin) 0.5 Mg Tab 0.5 MG PO HS for Insomnia, #30 TAB 0 Refills Cytarabine/Pf (Cytarabine 2 G/20 ml Vial) 2 Gram/20 Ml (100 Mg/Ml) Vial 1 INJECTION IV MONTHLY Oxycodone-Acetaminophen (Endocet) 10-325 mg Tab 1 TAB PO Q6HR for Pain Management, #90 TAB 0 Refills Sucralfate Liq (Sucralfate Liq) 1 Gram/10 Ml Erin 1 GM PO ACHS for gastritis for 30 Days, TAB 0 Refills Jere Gomez MD Apr 28, 2017 16:07
[2017-04-30] MEDS ORDERED: SULFAMETHOXAZOLE-TRIMETHOPRIM DS 800-160 MG TAB PO SCH (09:00)
== END 2017-04-28 16:30 | disposition left against medical advice (07) | DRG 871 ==
LOC: NEPE 08:09 → NEDA 10:50 → HCIN 14:58
PROVIDERS: ADMIT Hospitalist; ATTEND Hospitalist
PROC: 30233R1 Transfusion of Nonautologous Platelets into Peripheral Vein, Percutaneous Approach (ICD-10-PCS; principal; 2017-04-18)
PROC: 30233N1 Transfusion of Nonautologous Red Blood Cells into Peripheral Vein, Percutaneous Approach (ICD-10-PCS; 2017-04-19)
PROC: 30233K1 Transfusion of Nonautologous Frozen Plasma into Peripheral Vein, Percutaneous Approach (ICD-10-PCS; 2017-04-21)
DX: A41.9 Sepsis, unspecified organism (principal); D61.810 Antineoplastic chemotherapy induced pancytopenia; K92.0 Hematemesis; C92.01 Acute myeloblastic leukemia, in remission; R52 Pain, unspecified; K21.9 Gastro-esophageal reflux disease without esophagitis; K12.31 Oral mucositis (ulcerative) due to antineoplastic therapy; R50.81 Fever presenting with conditions classified elsewhere; G57.11 Meralgia paresthetica, right lower limb; Z87.19 Personal history of other diseases of the digestive system; T45.1X5A Adverse effect of antineoplastic and immunosuppressive drugs, initial encounter
CPT/HCPCS: 36430; 36600; 71010; 76937; 80048; 80053; 80076; 80202; 81001; 82247; 82248; 82272; 82805; 83010; 83605; 83615; 83735; 84100; 85007; 85027; 85384; 85610; 85730; 86403; 86644; 86850; 86880; 86900; 86901; 86920; 86927; 86945; 87040; 87077; 87086; 87186; 87205; 99285; C9113; J0692; J0780; J1170; J2248; J2405; J3370; J7030; J7040; J7050; P9017; P9037; P9040; P9052

== ENCOUNTER 2017-05-13 05:12 | Emergency (ER) | payer OTHER ==
[~2017-05-13] VITALS: Ht 188 cm; Wt 150.0 kg
[~2017-05-13 05:12] MED LIST changes: -ACYC200C66 PO; +AMLO5 PO; -CIPR250T52 PO; +DULO1CAP2 PO; +GABA100C4 PO; -PROM12.54 PO; -PROT40TA PO; +REST15CA PO; -SULF400T18 PO; -VENTAER INH; +[UNRECOGNIZED DRUG - CODE] IV
[2017-05-13 05:14] VITALS: BP 145/68; PULSE 117; RESP 18; TEMP 100.9; O2SAT 98
--- NOTE | 2017-05-13 05:53 | PD ---
HPI Chief Complaint: Abdominal Pain Time Seen by Provider: 05:43 Travel History International Travel<30 days: No Contact w/Intl Traveler<30days: No Traveled to known affect area: No History of Present Illness HPI Patient is 27-year-old male with chills aches , abdominal pain nausea vomiting diarrhea generalized malaise viral-like symptoms. His history of AML. In the past he has been anemic as well as neutropenic and thrombocytopenic Pt sees Dr Santoyo for his AML pt PFS Past Medical History Autoimmune Disease: No Anxiety: Yes Depression: Yes Cancer: Yes (AML (Acute Myelogenous Leukemia), Thrombocytopenia, Lymphocytosis) Cardiovascular Problems: No Chemotherapy: Yes Cerebrovascular Accident: No Diabetes: No Diminished Hearing: No Endocrine: No Gastrointestinal Disorders: Yes GERD: Yes Genitourinary: No Headaches: No Immune Disorder: Yes (AML (Acute Myelogenous Leukemia), Thrombocytopenia, Lymphocytosis) Implanted Vascular Access Dvce: Yes Musculoskeletal: No Neurologic: No Psychiatric: Yes Reproductive: No Respiratory: No Immunizations Current: Yes Migraines: Yes Radiation Therapy: No Seizures: No Thyroid Disease: No Ulcer: Yes Past Surgical History AICD: No Arteriovenous Shunt: No Insulin Pump: No Joint Replacement: No Oral Surgery: Yes (WISDOM TEETH REMOVAL) Pacemaker: No Other Surgery: Yes ([id number] placement) Social History Alcohol Use: Yes (SOCIAL) Tobacco Use: No Substance Use: Yes (CANNABIS) Allergies-Medications (Allergen,Severity, Reaction): Coded Allergies: No Known Allergies (Verified Allergy, Unknown, 04/18/17) Reported Meds & Prescriptions Reported Meds & Active Scripts Active Tamiflu (Oseltamivir Phosphate) 75 Mg Cap 75 Mg PO BID 5 Days Flagyl (Metronidazole) 500 Mg Tab 500 Mg PO TID 10 Days Restoril (Temazepam) 15 Mg Cap 15 Mg PO HS PRN Duloxetine DR (Duloxetine HCl) 30 Mg Capdr 30 Mg PO DAILY Gabapentin 100 Mg Cap 100 Mg PO TID Norvasc (Amlodipine Besylate) 5 Mg Tab 5 Mg PO DAILY Klonopin (Clonazepam) 0.5 Mg Tab 0.5 Mg PO HS Endocet (Oxycodone-Acetaminophen) 10-325 mg Tab 1 Tab PO Q6HR Sucralfate Liq (Sucralfate) 1 Gram/10 Ml Erin 1 Gm PO ACHS 30 Days Reported Cytarabine 2 G/20 ml Vial (Cytarabine/Pf) 2 Gram/20 Ml (100 Mg/Ml) Vial 1 Injection IV MONTHLY Review of Systems Except as stated in HPI: all other systems reviewed are Neg General / Constitutional: Positive: Fever, Chills HENT: Positive: Sore Throat Gastrointestinal: Positive: Nausea, Diarrhea, Abdominal Pain Musculoskeletal: Positive: Myalgias Neurologic: Positive: Weakness Physical Exam Narrative GENERAL: non toxic appearing and appears uncomfortable with general aches SKIN: Warm and dry. HEAD: Atraumatic. Normocephalic. EYES: Pupils equal and round. No scleral icterus. No injection or drainage. ENT: No nasal bleeding or discharge. Mucous membranes pink and moist. erythema posterior pharynx NECK: Trachea midline. No JVD. CARDIOVASCULAR: Regular rate and rhythm. RESPIRATORY: No accessory muscle use. Clear to auscultation. Breath sounds equal bilaterally. GASTROINTESTINAL: Abdomen soft, + tender epigastric and periumbilical nondistended. Hepatic and splenic margins not palpable. MUSCULOSKELETAL: Extremities without clubbing, cyanosis, or edema. No obvious deformities. NEUROLOGICAL: Awake and alert. No obvious cranial nerve deficits. Motor grossly within normal limits. Five out of 5 muscle strength in the arms and legs. Normal speech. PSYCHIATRIC: Appropriate mood and affect; insight and judgment normal. Data Data Last Documented VS Vital Signs Date Time Temp Pulse Resp B/P (MAP) Pulse Ox O2 Delivery O2 Flow Rate FiO2 05/13/17 11:26 05/13/17 07:33 95 16 97 05/13/17 05:14 100.9 Orders Orders Complete Blood Count With Diff (05/13/17 05:36) Comprehensive Metabolic Panel (05/13/17 05:36) Iv Access Insert/Monitor (05/13/17 05:36) Oxygen Administration (05/13/17 05:36) Oximetry (05/13/17 05:36) Lipase (05/13/17 05:36) Sepsis Workup Initiated (05/13/17 ) Lactic Acid Sepsis Protocol (05/13/17 05:36) Chest, Single Ap (05/13/17 05:36) Blood Culture (05/13/17 05:36) Ondansetron Inj (Zofran Inj) (05/13/17 06:00) Pantoprazole Inj (Protonix Inj) (05/13/17 06:00) Sodium Chlor 0.9% 1000 Ml Inj (Ns 1000 M (05/13/17 06:00) Influenzae A/B Antigen (05/13/17 07:23) C Diff Toxin Pcr (05/13/17 07:23) Morphine Inj (Morphine Inj) (05/13/17 07:30) Ct Abd/Pel W/O Iv Contrast (05/13/17 ) Sodium Chlor 0.9% 1000 Ml Inj (Ns 1000 M (05/13/17 07:30) Metronidazole 500 Mg Inj (Flagyl 500 Mg (05/13/17 09:15) Oseltamivir (Tamiflu) (05/13/17 09:15) Ed Discharge Order (05/13/17 09:22) Heparin Central Flush (Heparin Central F (05/13/17 09:30) Labs Laboratory Tests Test 05/13/17 05:45 White Blood Count 5.3 TH/MM3 Red Blood Count 2.95 MIL/MM3 Hemoglobin 8.4 GM/DL Hematocrit 24.7 % Mean Corpuscular Volume 83.9 FL Mean Corpuscular Hemoglobin 28.5 PG Mean Corpuscular Hemoglobin Concent 34.0 % Red Cell Distribution Width 18.1 % Platelet Count 122 TH/MM3 Mean Platelet Volume 8.2 FL Neutrophils (%) (Auto) 68.3 % Lymphocytes (%) (Auto) 11.0 % Monocytes (%) (Auto) 20.5 % Eosinophils (%) (Auto) 0.0 % Basophils (%) (Auto) 0.2 % Neutrophils # (Auto) 3.6 TH/MM3 Lymphocytes # (Auto) 0.6 TH/MM3 Monocytes # (Auto) 1.1 TH/MM3 Eosinophils # (Auto) 0.0 TH/MM3 Basophils # (Auto) 0.0 TH/MM3 CBC Comment DIFF FINAL Differential Comment Blood Urea Nitrogen 7 MG/DL Creatinine 1.07 MG/DL Random Glucose 113 MG/DL Total Protein 7.3 GM/DL Albumin 3.1 GM/DL Calcium Level 8.6 MG/DL Alkaline Phosphatase 97 U/L Aspartate Amino Transf (AST/SGOT) 24 U/L Alanine Aminotransferase (ALT/SGPT) 43 U/L Total Bilirubin 0.7 MG/DL Sodium Level 138 MEQ/L Potassium Level 3.1 MEQ/L Chloride Level 103 MEQ/L Carbon Dioxide Level 25.3 MEQ/L Anion Gap 10 MEQ/L Estimat Glomerular Filtration Rate 84 ML/MIN Lactic Acid Level 2.1 mmol/L Lipase 159 U/L MDM Medical Decision Making Medical Screen Exam Complete: Yes Emergency Medical Condition: Yes Medical Record Reviewed: Yes Differential Diagnosis Gastroenteritis versus viral illness versus influenza versus side effects of his treatment for his AML versus pancreatitis versus cholecystitis versus other Narrative Course Patient's labs are ordered. NS fluid is ordered , antinausea med and he is signed out for a follow-up by the oncoming attending Scripts Oseltamivir (Tamiflu) 75 Mg Cap 75 MG PO BID for Mgmt Viral Infection for 5 Days, #10 CAP 0 Refills Prov: Cornelio Covarrubias MD 05/13/17 Metronidazole (Flagyl) 500 Mg Tab 500 MG PO TID for Infection for 10 Days, TAB 0 Refills Prov: Cornelio Covarrubias MD 05/13/17 Isaac Meier MD May 13, 2017 05:53
[2017-05-13] MEDS ORDERED: SODIUM CHLOR 0.9% 1000 ML INJ 1,000 ML IV ONE ×2 (06:00→07:30)
[2017-05-13] MEDS ORDERED: ONDANSETRON HCL 4 MG/2 ML VIAL IV PUSH ONE (06:00)
[2017-05-13] MEDS ORDERED: PANTOPRAZOLE SODIUM 40 MG VIAL IV PUSH ONE (06:00)
[2017-05-13 06:04] LABS: AUTOMATED NEUTROPHIL # 3.6 TH/MM3 (1.8-7.7); BASOPHIL % 0.2 % (0.0-2.0); HEMATOCRIT 24.7 % (39.0-51.0); HEMOGLOBIN 8.4 GM/DL (13.0-17.0); LYMPHOCYTE # 0.6 TH/MM3 (1.0-4.8); MEAN CELL VOLUME 83.9 FL (80.0-100.0); MEAN CORPUSCULAR HEMOGLOBIN 28.5 PG (27.0-34.0); MEAN PLATELET VOLUME 8.2 FL (7.0-11.0); MONO % 20.5 % (0.0-8.0); MONOCYTE # 1.1 TH/MM3 (0-0.9); NEUT % 68.3 % (16.0-70.0); PLATELET COUNT 122 TH/MM3 (150-450); RED BLOOD COUNT 2.95 MIL/MM3 (4.50-5.90); RED CELL DISTRIBUTION WIDTH 18.1 % (11.6-17.2); WHITE BLOOD COUNT 5.3 TH/MM3 (4.0-11.0)
--- NOTE | 2017-05-13 06:10 | RADRPT ---
EXAM DATE/TIME: 05/13/2017 05:55 [facility] COMPARISON: CHEST SINGLE AP, April 23, 2017, 19:38. INDICATIONS : Fever. MEDICAL HISTORY : Leukemia. SURGICAL HISTORY : [id number] ENCOUNTER: Initial ACUITY: 1 day PAIN SCORE: 0/10 LOCATION: Bilateral chest FINDINGS: A single view of the chest demonstrates the lungs to be symmetrically aerated without evidence of mas s, infiltrate or effusion. The cardiomediastinal contours are unremarkable. Osseous structures are intact. Port-A-Cath overlies the right chest. CONCLUSION: No acute disease. Paresh Fuller Jr., MD on May 13, 2017 at 6:08 Board Certified Radiologist. This report was verified electronically.
[2017-05-13 06:20] LABS: LACTIC ACID SEPSIS PROTOCOL 2.1 mmol/L (0.4-2.0)
[2017-05-13 06:29] LABS: ALBUMIN 3.1 GM/DL (3.4-5.0); AST (GOT) 24 U/L (15-37); BICARBONATE 25.3 MEQ/L (21.0-32.0); BLOOD UREA NITROGEN 7 MG/DL (7-18); CALCIUM 8.6 MG/DL (8.5-10.1); CHLORIDE 103 MEQ/L (98-107); CREATININE 1.07 MG/DL (0.60-1.30); GLOMERULAR FILTRATION RATE 84 ML/MIN (>89); GLUCOSE,RANDOM 113 MG/DL (74-106); LIPASE 159 U/L (73-393); SODIUM (NA) 138 MEQ/L (136-145)
[2017-05-13 06:30] LABS: ALT (GPT) 43 U/L (12-78)
[2017-05-13 06:32] LABS: ALKALINE PHOSPHATASE 97 U/L (45-117); TOTAL BILIRUBIN ADULT 0.7 MG/DL (0.2-1.0); TOTAL PROTEIN 7.3 GM/DL (6.4-8.2)
--- NOTE | 2017-05-13 07:28 | PD ---
Physical Exam Date Seen by Provider: May 13, 2017 Time Seen by Provider: 07:25 Narrative Patient is a 27-year-old male was initially seen by the previous physician. Please refer to the initial history, physical, diagnostic evaluation, treatment modality plan. The patient signed out at 7 AM with laboratory evaluation pending. Data Data Last Documented VS Vital Signs Date Time Temp Pulse Resp B/P (MAP) Pulse Ox O2 Delivery O2 Flow Rate FiO2 05/13/17 07:33 95 16 122/56 (78) 97 05/13/17 05:14 100.9 Orders Orders Complete Blood Count With Diff (05/13/17 05:36) Comprehensive Metabolic Panel (05/13/17 05:36) Urinalysis - C+S If Indicated (05/13/17 05:36) Iv Access Insert/Monitor (05/13/17 05:36) Oxygen Administration (05/13/17 05:36) Oximetry (05/13/17 05:36) Lipase (05/13/17 05:36) Sepsis Workup Initiated (05/13/17 ) Lactic Acid Sepsis Protocol (05/13/17 05:36) Chest, Single Ap (05/13/17 05:36) Blood Culture (05/13/17 05:36) Ondansetron Inj (Zofran Inj) (05/13/17 06:00) Pantoprazole Inj (Protonix Inj) (05/13/17 06:00) Sodium Chlor 0.9% 1000 Ml Inj (Ns 1000 M (05/13/17 06:00) Influenzae A/B Antigen (05/13/17 07:23) C Diff Toxin Pcr (05/13/17 07:23) Morphine Inj (Morphine Inj) (05/13/17 07:30) Ct Abd/Pel W/O Iv Contrast (05/13/17 ) Sodium Chlor 0.9% 1000 Ml Inj (Ns 1000 M (05/13/17 07:30) Metronidazole 500 Mg Inj (Flagyl 500 Mg (05/13/17 09:15) Oseltamivir (Tamiflu) (05/13/17 09:15) Labs Laboratory Tests Test 05/13/17 05:45 White Blood Count 5.3 TH/MM3 Red Blood Count 2.95 MIL/MM3 Hemoglobin 8.4 GM/DL Hematocrit 24.7 % Mean Corpuscular Volume 83.9 FL Mean Corpuscular Hemoglobin 28.5 PG Mean Corpuscular Hemoglobin Concent 34.0 % Red Cell Distribution Width 18.1 % Platelet Count 122 TH/MM3 Mean Platelet Volume 8.2 FL Neutrophils (%) (Auto) 68.3 % Lymphocytes (%) (Auto) 11.0 % Monocytes (%) (Auto) 20.5 % Eosinophils (%) (Auto) 0.0 % Basophils (%) (Auto) 0.2 % Neutrophils # (Auto) 3.6 TH/MM3 Lymphocytes # (Auto) 0.6 TH/MM3 Monocytes # (Auto) 1.1 TH/MM3 Eosinophils # (Auto) 0.0 TH/MM3 Basophils # (Auto) 0.0 TH/MM3 CBC Comment DIFF FINAL Differential Comment Blood Urea Nitrogen 7 MG/DL Creatinine 1.07 MG/DL Random Glucose 113 MG/DL Total Protein 7.3 GM/DL Albumin 3.1 GM/DL Calcium Level 8.6 MG/DL Alkaline Phosphatase 97 U/L Aspartate Amino Transf (AST/SGOT) 24 U/L Alanine Aminotransferase (ALT/SGPT) 43 U/L Total Bilirubin 0.7 MG/DL Sodium Level 138 MEQ/L Potassium Level 3.1 MEQ/L Chloride Level 103 MEQ/L Carbon Dioxide Level 25.3 MEQ/L Anion Gap 10 MEQ/L Estimat Glomerular Filtration Rate 84 ML/MIN Lactic Acid Level 2.1 mmol/L Lipase 159 U/L [facility] Medical Record Reviewed: Yes Supervised Visit with FAUZIA: No Interpretation(s) Laboratory Tests Test 05/13/17 05:45 White Blood Count 5.3 TH/MM3 Red Blood Count 2.95 MIL/MM3 Hemoglobin 8.4 GM/DL Hematocrit 24.7 % Mean Corpuscular Volume 83.9 FL Mean Corpuscular Hemoglobin 28.5 PG Mean Corpuscular Hemoglobin Concent 34.0 % Red Cell Distribution Width 18.1 % Platelet Count 122 TH/MM3 Mean Platelet Volume 8.2 FL Neutrophils (%) (Auto) 68.3 % Lymphocytes (%) (Auto) 11.0 % Monocytes (%) (Auto) 20.5 % Eosinophils (%) (Auto) 0.0 % Basophils (%) (Auto) 0.2 % Neutrophils # (Auto) 3.6 TH/MM3 Lymphocytes # (Auto) 0.6 TH/MM3 Monocytes # (Auto) 1.1 TH/MM3 Eosinophils # (Auto) 0.0 TH/MM3 Basophils # (Auto) 0.0 TH/MM3 CBC Comment DIFF FINAL Differential Comment Blood Urea Nitrogen 7 MG/DL Creatinine 1.07 MG/DL Random Glucose 113 MG/DL Total Protein 7.3 GM/DL Albumin 3.1 GM/DL Calcium Level 8.6 MG/DL Alkaline Phosphatase 97 U/L Aspartate Amino Transf (AST/SGOT) 24 U/L Alanine Aminotransferase (ALT/SGPT) 43 U/L Total Bilirubin 0.7 MG/DL Sodium Level 138 MEQ/L Potassium Level 3.1 MEQ/L Chloride Level 103 MEQ/L Carbon Dioxide Level 25.3 MEQ/L Anion Gap 10 MEQ/L Estimat Glomerular Filtration Rate 84 ML/MIN Lactic Acid Level 2.1 mmol/L Lipase 159 U/L Date/Time Source Procedure Growth Status 05/13/17 05:45 Blood Peripheral Aerobic Blood Culture Pending Received 05/13/17 05:45 Blood Peripheral Anaerobic Blood Culture Pending Received 05/13/17 05:40 Blood Peripheral Aerobic Blood Culture Pending Received 05/13/17 05:40 Blood Peripheral Anaerobic Blood Culture Pending Received 05/13/17 07:45 Nasal Aspirate Influenza Types A,B Antigen (SUNDAR) - Final Positive For Flu A Antigen Complete CT of the abdomen and pelvis reveals mild hepatosplenomegaly. Otherwise unremarkable CT of the abdomen and pelvis. Differential Diagnosis Differential diagnosis includes AML, C. difficile, influenza, pneumonia, viral syndrome, neutropenic fever, sepsis, colitis. Narrative Course The patient is a 27-year-old male was initially evaluated by the previous physician. Please refer to the initial history, physical, diagnostic evaluation , treatment modality plan. Patient was signed out at 7 AM with laboratory evaluation pending. Patient has a history of AML, currently in remission the receiving consolidation therapy by his oncologist, Dr. Santoyo. The patient was recently admitted to the hospital for approximately one week for severe infection, return home feeling well. However, 3 days ago he developed diarrhea , describes loose, watery, approximately 10 episodes per day. He now complains of body aches, nausea, vomiting, and a dry cough. The patient stated he ran a fever yesterday of 101, was advised to come to the emergency department. He denies any known history of C. difficile, however, was recently hospitalized and on antibiotics. He does note a foul smell to the stool. C. difficile via PCR stool was ordered. Influenza screen was sent to lab. CT the abdomen and pelvis was ordered for colitis. The patient was administered IV fluids, morphine, and Zofran. CT the abdomen and pelvis is unremarkable except for mild hepatosplenomegaly. Influenza screen is positive for influenza A. The patient's oncologist, Dr. Santoyo, was paged at 8:27 AM. I discussed the patient with Dr. Camilo at 9:02 AM who agrees with Tamiflu and treatment for possible C. difficile with recent hospitalizations and multiple antibiotics. The patient does not want to be hospitalized. Dr. Caimlo stated that Dr. Santoyo is at the [place] office tomorrow and can see the patient tomorrow. 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 He will be treated for possible C. difficile and influenza A. He is advised to return if symptoms worsen or progress. Diagnosis Primary Impression: Influenza A Additional Impression: Diarrhea Qualified Codes: R19.7 - Diarrhea, unspecified Patient Instructions: General Instructions Additional Instruction: Call your oncologist today to be seen tomorrow in the office. Medications as directed. Plenty of fluids to stay hydrated. Return if symptoms worsen or progress. Med/Other Pt SpecificInfo: Prescription(s) given Scripts Oseltamivir (Tamiflu) 75 Mg Cap 75 MG PO BID for Mgmt Viral Infection for 5 Days, #10 CAP 0 Refills Prov: Cornelio Covarrubias MD 05/13/17 Metronidazole (Flagyl) 500 Mg Tab 500 MG PO TID for Infection for 10 Days, TAB 0 Refills Prov: Cornelio Covarrubias MD 05/13/17 Disposition: DISCHARGE HOME Condition: Stable Cornelio Covarrubias MD May 13, 2017 07:28
[2017-05-13] MEDS ORDERED: MORPHINE SULFATE 2 MG/ML INJ IV PUSH ONE (07:30)
[2017-05-13 07:33] VITALS: BP 122/56; PULSE 95; RESP 16; O2SAT 97
--- NOTE | 2017-05-13 08:24 | RADRPT ---
EXAM DATE/TIME: 05/13/2017 08:04 [facility] COMPARISON: CT ABDOMEN & PELVIS W CONTRAST, March 04, 2017, 0:38. CT ABDOMEN & PELVIS W CONTRAST, March 12, 2017, 22:12. CT ABDOMEN & PELVIS W CONTRAST, December 27, 2016, 22:47. CT ABDOMEN & PELVIS W/O CONTR AST, October 29, 2015, 1:38. INDICATIONS : Upper abdominal pain. Diarrhea, body aches and fever for three days. ORAL CONTRAST: No oral contrast ingested. RADIATION DOSE: 16.98 CTDIvol (mGy) MEDICAL HISTORY : Leukemia. SURGICAL HISTORY : None. ENCOUNTER: Initial ACUITY: 1 day PAIN SCALE: 4/10 LOCATION: epigastric TECHNIQUE: Volumetric scanning of the abdomen and pelvis was performed. Using automated exposure control and ad justment of the mA and/or kV according to patient size, radiation dose was kept as low as reasonably achievable to obtain optimal diagnostic quality images. DICOM format image data is available electro nically for review and comparison. FINDINGS: LOWER LUNGS: The visualized lower lungs are clear. LIVER: Mild hepatomegaly is noted. Homogeneous density without lesion. There is no dilation of the biliary tree. No calcified gallstones. SPLEEN: Mild splenomegaly is noted. PANCREAS: Within normal limits. KIDNEYS: Normal in size and shape. There is no mass, stone, or hydronephrosis. ADRENAL GLANDS: Within normal limits. VASCULAR: There is no aortic aneurysm. BOWEL/MESENTERY: The stomach, small bowel, and colon demonstrate no acute abnormality. There is no free intraperitone al air or fluid. The appendix is normal. ABDOMINAL WALL: Within normal limits. RETROPERITONEUM: There is no lymphadenopathy. BLADDER: No wall thickening or mass. REPRODUCTIVE: Within normal limits. INGUINAL: There is no lymphadenopathy or hernia. MUSCULOSKELETAL: Within normal limits for patient age. CONCLUSION: 1. Mild hepatosplenomegaly. 2. Otherwise unremarkable CT of the abdomen and pelvis. Garcia Tello MD on May 13, 2017 at 8:18 Board Certified Radiologist. This report was verified electronically.
[2017-05-13] MEDS ORDERED: metroNIDAZOLE 500 MG INJ 100 ML IV ONE (09:15)
[2017-05-13] MEDS ORDERED: OSELTAMIVIR PHOSPHATE 75 MG CAP PO ONE (09:15)
[2017-05-13] MEDS ORDERED: METR-1 PO (09:21)
[2017-05-13] MEDS ORDERED: OSEL75 PO (09:21)
== END 2017-05-13 11:28 | disposition home or self-care (01) ==
LOC: NEPC 05:12
DX: J09.X2 Influenza due to identified novel influenza A virus with other respiratory manifestations (principal); R19.7 Diarrhea, unspecified; R16.2 Hepatomegaly with splenomegaly, not elsewhere classified; C92.01 Acute myeloblastic leukemia, in remission; K21.9 Gastro-esophageal reflux disease without esophagitis; F32.9 Major depressive disorder, single episode, unspecified; Z79.899 Other long term (current) drug therapy
CPT/HCPCS: 71045; 74176; 80053; 83605; 83690; 85025; 87040; 87804; 96361; 96365; 96375; 99285; C9113; J2270; J2405; J7030

== ENCOUNTER 2017-06-08 10:16 | Inpatient (IN) | payer MEDICAID ==
[2017-06-08] VITALS (8 sets, daily range): BP systolic 112–132; BP diastolic 58–74; PULSE 72–106; RESP 18; TEMP 98.1–98.5; O2SAT 97–98
[~2017-06-08] VITALS: Ht 188 cm; Wt 159.0 kg
[~2017-06-08 10:16] MED LIST changes: -CLON.5 PO; +CLON1 PO; -DULO1CAP2 PO; -GABA100C4 PO; +PROZ20CA11 PO; -REST15CA PO
[2017-06-08] MEDS ORDERED: SODIUM CHLOR 0.9% 1000 ML INJ 1,000 ML IV SCH (12:15)
[2017-06-08] MEDS ORDERED: GRANISETRON HCL 1 MG/ML VIAL IV SCH (17:30)
[2017-06-08] MEDS ORDERED: DEXAMETHASONE SOD PHOS 20 MG/5 ML VIAL IV SCH (17:30)
[2017-06-08 18:31] LABS: AUTOMATED NEUTROPHIL # 8.5 TH/MM3 (1.8-7.7); BASOPHIL % 0.4 % (0.0-2.0); EOSINOPHIL # 0.1 TH/MM3 (0-0.4); EOSINOPHIL % 0.6 % (0.0-4.0); HEMATOCRIT 33.3 % (39.0-51.0); HEMOGLOBIN 11.1 GM/DL (13.0-17.0); LYMPHOCYTE # 1.4 TH/MM3 (1.0-4.8); MEAN CELL VOLUME 91.9 FL (80.0-100.0); MEAN CORPUSCULAR HEMOGLOBIN 30.6 PG (27.0-34.0); MEAN CORPUSCULAR HGB CONC 33.3 % (32.0-36.0); MEAN PLATELET VOLUME 7.4 FL (7.0-11.0); MONO % 8.7 % (0.0-8.0); NEUT % 77.3 % (16.0-70.0); PLATELET COUNT 306 TH/MM3 (150-450); RED BLOOD COUNT 3.62 MIL/MM3 (4.50-5.90)
[2017-06-08 18:47] LABS: ALBUMIN 3.5 GM/DL (3.4-5.0); ALT (GPT) 39 U/L (12-78); AST (GOT) 26 U/L (15-37); BICARBONATE 31.2 MEQ/L (21.0-32.0); BLOOD UREA NITROGEN 10 MG/DL (7-18); CALCIUM 9.3 MG/DL (8.5-10.1); CHLORIDE 103 MEQ/L (98-107); GLOMERULAR FILTRATION RATE 118 ML/MIN (>89); GLUCOSE,RANDOM 74 MG/DL (74-106); SODIUM (NA) 140 MEQ/L (136-145)
[2017-06-08 18:50] LABS: ALKALINE PHOSPHATASE 86 U/L (45-117); TOTAL BILIRUBIN ADULT 0.7 MG/DL (0.2-1.0); TOTAL PROTEIN 7.5 GM/DL (6.4-8.2)
[2017-06-08] MEDS: DEXAMETHASONE SOD PHOS 0.1% OPHT SOLN 5 ML BTL EACH EYE SCH ×2 (21:50→22:30)
[2017-06-08] MEDS: SODIUM CHLOR 0.9% 1000 ML INJ 1,000 ML IV SCH (22:18)
[2017-06-08] MEDS: SODIUM CHLOR 0.9% IV SCH (23:30)
[2017-06-08] MEDS: CYTARABINE IV SCH (23:30)
[2017-06-09] VITALS (24 sets, daily range): BP systolic 111–141; BP diastolic 51–74; PULSE 67–104; RESP 16–18; TEMP 96.7–98.6; O2SAT 95–97
[2017-06-09] MEDS: SODIUM CHLOR 0.9% 1000 ML INJ 1,000 ML IV SCH ×3 (01:29→23:57)
[2017-06-09 05:29] LABS: BASOPHIL % 0.2 % (0.0-2.0); EOSINOPHIL % 0.1 % (0.0-4.0); HEMATOCRIT 34.6 % (39.0-51.0); HEMOGLOBIN 11.4 GM/DL (13.0-17.0); LYMPH % 5.1 % (9.0-44.0); LYMPHOCYTE # 0.5 TH/MM3 (1.0-4.8); MEAN CELL VOLUME 92.3 FL (80.0-100.0); MEAN CORPUSCULAR HEMOGLOBIN 30.5 PG (27.0-34.0); MEAN CORPUSCULAR HGB CONC 33.1 % (32.0-36.0); MEAN PLATELET VOLUME 7.4 FL (7.0-11.0); MONO % 0.9 % (0.0-8.0); MONOCYTE # 0.1 TH/MM3 (0-0.9); NEUT % 93.7 % (16.0-70.0); PLATELET COUNT 279 TH/MM3 (150-450); RED BLOOD COUNT 3.75 MIL/MM3 (4.50-5.90); RED CELL DISTRIBUTION WIDTH 22.1 % (11.6-17.2); WHITE BLOOD COUNT 10.6 TH/MM3 (4.0-11.0)
[2017-06-09 05:53] LABS: ALBUMIN 3.5 GM/DL (3.4-5.0); ALKALINE PHOSPHATASE 88 U/L (45-117); ALT (GPT) 43 U/L (12-78); AST (GOT) 30 U/L (15-37); BICARBONATE 28.2 MEQ/L (21.0-32.0); BLOOD UREA NITROGEN 11 MG/DL (7-18); CALCIUM 9.3 MG/DL (8.5-10.1); CHLORIDE 104 MEQ/L (98-107); CREATININE 0.86 MG/DL (0.60-1.30); GLOMERULAR FILTRATION RATE 108 ML/MIN (>89); GLUCOSE,RANDOM 154 MG/DL (74-106); SODIUM (NA) 139 MEQ/L (136-145); TOTAL BILIRUBIN ADULT 0.6 MG/DL (0.2-1.0); TOTAL PROTEIN 7.9 GM/DL (6.4-8.2)
--- NOTE | 2017-06-09 07:27 | MH ---
cc: NOHELIA CHARLES DATE OF ADMISSION 06/08/2017 REASON FOR ADMISSION The patient is being admitted to my service with a history of acute myeloid leukemia who is currently in complete remission. He is being admitted for consolidation with HiDAC chemotherapy. HISTORY OF PRESENT ILLNESS This is a 27-year-old male who was diagnosed with acute myeloid leukemia in December of 2016. He underwent induction chemotherapy with daunorubicin and cytarabine. He has favorable risk AML with inversion 16. After induction, he has received two cycles of consolidation chemotherapy. His treatment course has been complicated with pancytopenia and febrile neutropenia. On his last admission, he left the hospital AMA. He stated that he was fired from his job and was to upset. He states that his employer did not need take into account that he was ill with leukemia and had demanded for him to come back to work. The patient was seen in the oncology clinic last week after he had missed several appointments. He stated that he would like to resume his treatment. He is now being admitted to the hospital for consolidation chemotherapy. He denies any headaches, no blurry vision, no chest pain, no shortness of breath. No abdominal pain. No lower extremity edema. REVIEW OF SYSTEMS A comprehensive 14-point review of systems was completed which is negative except as described in the HPI. PAST MEDICAL HISTORY 1. Acute myeloid leukemia 2. History of erosive esophagitis 3. Morbid obesity 4. Anxiety PAST SURGICAL HISTORY Bone marrow biopsy x2 in 2016. OUTPATIENT MEDICATIONS 1. Acyclovir 200 mg p.o. b.i.d. 2. Pantoprazole 40 mg p.o. q.h.s. 3. Bactrim one tablet 800 x 160 Wednesday, Wednesday and Wednesday. 4. Cipro 250 mg tablet on Wednesday, and Wednesday. ALLERGIES NO KNOWN DRUG ALLERGIES. FAMILY HISTORY Family history was reviewed and it is noncontributory to this admission. 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 He does not smoke cigarettes. He does not drink alcohol. No illicit drug use. PHYSICAL EXAMINATION VITAL SIGNS: Blood pressure is 128/72, pulse is in the 70s, temperature is 97.8, respiratory rate is 12, O2 sats are 97% on room air. GENERAL: A well-developed, well-nourished obese male in no apparent distress. HEENT: Pupils are equal, round, reactive to light. EOMI. No oral thrush. No oral lesions. NECK: Supple. No JVD, no bruits. No lymphadenopathy. CHEST: Clear to auscultation bilaterally. CARDIAC: S1-S2 regular rate and rhythm. ABDOMEN: Soft, nontender, nondistended. He is obese. Bowel sounds are present. EXTREMITIES: Without any edema, erythema or cyanosis. SKIN: Without any petechiae, lesion or bruises. NEUROLOGIC: No focal deficits. PSYCHIATRIC: Mood and affect is appropriate. LABORATORY DATA WBC is 11, hemoglobin is 11.1, platelet count is 306. Serum chemistries sodium 140, potassium 3.6, chloride 103, CO2 31.2, anion gap is 6, BUN is 10, creatinine is 0.8, GFR is 118, glucose is 74, calcium is 9.3, total bilirubin is 0.7, AST 26, ALT 39, alk phos is 86, total protein is 7.5, albumin is 3.5, INR is 1.3, fibrinogen is 783. ASSESSMENT/PLAN This is a 27-year-old male who has a diagnosis of acute myeloid leukemia. He is in complete remission #1. He is being admitted to the hospital for consolidation chemotherapy. 1. 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 He has inversion 16 which offers a favorable prognosis. He achieved remission after induction chemotherapy. He has count recovery. He will proceed with HiDAC chemotherapy. Chemotherapy orders have been placed. Labs were reviewed. He will HiDAC treatments on day one, three and five. We will initiate steroid eye drops. We will closely monitor his CBC and CMP. 2. We will closely monitor for tumor lysis syndrome. Check uric acid and phosphorus levels. 3. Monitor for DIC. Check daily fibrinogen. 4. Infectious disease prophylaxis. Continue Bactrim double-strength Wednesday, Wednesday and Wednesday, Cipro 250 mg Wednesday, and Wednesday. Continue acyclovir 200 mg p.o. b.i.d. 5. Gastroesophageal reflux disease. Continue pantoprazole. 6. DVT prophylaxis. Initiate Lovenox subcu 40 mg daily. We will continue to monitor closely and make further recommendations on a daily basis. MD MAJOR Muñiz/RED /11:54 PM /6:54 AM
[2017-06-09] MEDS: DEXAMETHASONE SOD PHOS 0.1% OPHT SOLN 5 ML BTL EACH EYE SCH ×4 (08:35→21:37)
[2017-06-09] MEDS: PANTOPRAZOLE SOD 20 MG DELAYED RELEASE TAB PO SCH (08:35)
[2017-06-09] MEDS: ENOXAPARIN SODIUM 40 MG/0.4 ML SYRINGE SQ SCH (08:36)
[2017-06-09] MEDS: CYTARABINE IV SCH (11:38)
[2017-06-09] MEDS: SODIUM CHLOR 0.9% IV SCH (11:38)
[2017-06-09] MEDS: ONDANSETRON HCL 4 MG/2 ML VIAL IV PUSH PRN (16:44)
--- NOTE | 2017-06-09 23:27 | PD.ONC.PN ---
Subjective Subjective Remarks doing well, no major issues with treatment no fevers some nausea--better with ani-emetics eating ambulating Objective Data Date Time Temp Pulse Resp B/P (MAP) Pulse Ox O2 Delivery O2 Flow Rate FiO2 06/09/17 17:00 92 06/09/17 16:00 100 06/09/17 15:38 98.6 104 18 111/62 (78) 96 06/09/17 15:00 103 06/09/17 14:00 96 06/09/17 13:00 94 06/09/17 12:00 84 06/09/17 11:43 97.9 89 18 136/65 (88) 95 06/09/17 11:00 96 06/09/17 10:00 92 06/09/17 09:00 88 06/09/17 08:33 97.8 81 18 116/57 (76) 97 06/09/17 08:00 76 06/09/17 07:08 86 06/09/17 07:00 78 06/09/17 06:08 69 06/09/17 04:43 97.4 76 16 124/51 (75) 95 06/09/17 04:00 67 06/09/17 03:01 77 06/09/17 02:07 79 06/09/17 01:11 67 06/09/17 00:01 86 06/08/17 23:37 98.5 81 18 112/58 (76) 97 Result Diagram: 06/09/17 0450 06/09/17 0450 Laboratory Results Laboratory Tests Test 06/09/17 04:50 White Blood Count 10.6 TH/MM3 Red Blood Count 3.75 MIL/MM3 Hemoglobin 11.4 GM/DL Hematocrit 34.6 % Mean Corpuscular Volume 92.3 FL Mean Corpuscular Hemoglobin 30.5 PG Mean Corpuscular Hemoglobin Concent 33.1 % Red Cell Distribution Width 22.1 % Platelet Count 279 TH/MM3 Mean Platelet Volume 7.4 FL Neutrophils (%) (Auto) 93.7 % Lymphocytes (%) (Auto) 5.1 % Monocytes (%) (Auto) 0.9 % Eosinophils (%) (Auto) 0.1 % Basophils (%) (Auto) 0.2 % Neutrophils # (Auto) 10.0 TH/MM3 Lymphocytes # (Auto) 0.5 TH/MM3 Monocytes # (Auto) 0.1 TH/MM3 Eosinophils # (Auto) 0.0 TH/MM3 Basophils # (Auto) 0.0 TH/MM3 CBC Comment DIFF FINAL Differential Comment Blood Urea Nitrogen 11 MG/DL Creatinine 0.86 MG/DL Random Glucose 154 MG/DL Total Protein 7.9 GM/DL Albumin 3.5 GM/DL Calcium Level 9.3 MG/DL Alkaline Phosphatase 88 U/L Aspartate Amino Transf (AST/SGOT) 30 U/L Alanine Aminotransferase (ALT/SGPT) 43 U/L Total Bilirubin 0.6 MG/DL Sodium Level 139 MEQ/L Potassium Level 4.4 MEQ/L Chloride Level 104 MEQ/L Carbon Dioxide Level 28.2 MEQ/L Anion Gap 7 MEQ/L Estimat Glomerular Filtration Rate 108 ML/MIN Administered Medications Medications (Trade) Dose Ordered Sig/Emma Route PRN Reason Start Time Stop Time Status Last Admin Dose Admin Pantoprazole Sodium (Protonix) 20 mg DAILY PO 06/09/17 09:00 06/09/17 08:35 Enoxaparin Sodium (Lovenox Inj) 40 mg DAILY SQ 06/09/17 09:00 06/09/17 08:36 Dexamethasone Sodium Phosphate (Decadron Opth 0.1% Soln) 2 drop QID EACH EYE 06/08/17 18:00 06/15/17 13:01 06/09/17 21:37 Sodium Chloride 1,000 ml @ 75 mls/hr [id number] IV 06/08/17 16:00 06/09/17 11:43 Ondansetron HCl (Zofran Inj) 4 mg Q6HR PRN IV PUSH nausea 06/08/17 16:30 06/09/17 16:44 Objective Remarks GENERAL: nad, obese SKIN: Warm and dry. LYMPHATIC: No adenopathy. CARDIOVASCULAR: Regular rate and rhythm without murmurs. RESPIRATORY: Breath sounds equal bilaterally. No accessory muscle use. GASTROINTESTINAL: Abdomen soft, non-tender, nondistended. EXTREMITIES: No cyanosis, or edema. Assessment/Plan Problem List: (1) AML (acute myelogenous leukemia) ICD Codes: C92.00 - Acute myeloblastic leukemia, not having achieved remission Status: Chronic Assessment 27-year-old male who has a diagnosis of acute myeloid leukemia. He is in complete remission #1. He is being admitted to the hospital for consolidation chemotherapy. 1. 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 He has inversion 16 which offers a favorable prognosis. 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 We will closely monitor for tumor lysis syndrome. Check uric acid and phosphorus levels. 3. Monitor for DIC. Check daily fibrinogen. 4. Infectious disease prophylaxis. Continue Bactrim double-strength Wednesday, Wednesday and Wednesday, Cipro 250 mg Wednesday, and Wednesday. Continue acyclovir 200 mg p.o. b.i.d. 5. Gastroesophageal reflux disease. Continue pantoprazole. 6. DVT prophylaxis. Initiate Lovenox subcu 40 mg daily. Joey Santoyo MD Jun 09, 2017 23:27
[2017-06-09] MEDS: clonazePAM 1 MG TAB PO PRN (23:57)
[2017-06-10] VITALS (20 sets, daily range): BP systolic 129–139; BP diastolic 58–72; PULSE 64–90; RESP 16–18; TEMP 97.6–98.3; O2SAT 98–100
[2017-06-10 06:24] LABS: AUTOMATED NEUTROPHIL # 11.1 TH/MM3 (1.8-7.7); BASOPHIL % 0.2 % (0.0-2.0); HEMATOCRIT 31.7 % (39.0-51.0); HEMOGLOBIN 10.4 GM/DL (13.0-17.0); LYMPH % 3.3 % (9.0-44.0); LYMPHOCYTE # 0.4 TH/MM3 (1.0-4.8); MEAN CELL VOLUME 93.3 FL (80.0-100.0); MEAN CORPUSCULAR HEMOGLOBIN 30.7 PG (27.0-34.0); MEAN CORPUSCULAR HGB CONC 32.9 % (32.0-36.0); MEAN PLATELET VOLUME 7.2 FL (7.0-11.0); MONOCYTE # 0.5 TH/MM3 (0-0.9); NEUT % 92.5 % (16.0-70.0); PLATELET COUNT 271 TH/MM3 (150-450); RED CELL DISTRIBUTION WIDTH 21.8 % (11.6-17.2)
[2017-06-10 06:43] LABS: PROTHROMBIN TIME - PATIENT 10.1 SEC (9.8-11.6)
[2017-06-10 06:50] LABS: ALBUMIN 2.9 GM/DL (3.4-5.0); ALKALINE PHOSPHATASE 69 U/L (45-117); ALT (GPT) 33 U/L (12-78); AST (GOT) 20 U/L (15-37); BICARBONATE 25.6 MEQ/L (21.0-32.0); BLOOD UREA NITROGEN 13 MG/DL (7-18); CALCIUM 8.5 MG/DL (8.5-10.1); CHLORIDE 108 MEQ/L (98-107); CREATININE 0.68 MG/DL (0.60-1.30); GLOMERULAR FILTRATION RATE 142 ML/MIN (>89); GLUCOSE,RANDOM 128 MG/DL (74-106); MAGNESIUM 2.4 MG/DL (1.5-2.5); PHOSPHORUS 3.6 MG/DL (2.5-4.9); SODIUM (NA) 140 MEQ/L (136-145); TOTAL BILIRUBIN ADULT 0.7 MG/DL (0.2-1.0); TOTAL PROTEIN 6.9 GM/DL (6.4-8.2)
[2017-06-10] MEDS: PANTOPRAZOLE SOD 20 MG DELAYED RELEASE TAB PO SCH (09:05)
[2017-06-10] MEDS: DEXAMETHASONE SOD PHOS 0.1% OPHT SOLN 5 ML BTL EACH EYE SCH ×4 (09:05→20:16)
[2017-06-10] MEDS: ENOXAPARIN SODIUM 40 MG/0.4 ML SYRINGE SQ SCH (09:05)
[2017-06-10] MEDS: ACYCLOVIR 200 MG CAP PO SCH ×2 (09:51→20:15)
--- NOTE | 2017-06-10 11:58 | PD.ONC.PN ---
Subjective Subjective Remarks Afebrile overnight. Patient resting in bed in nad. No complaints. Tolerating chemotherapy. Slept well last night after he had Klonopin. Objective Data Date Time Temp Pulse Resp B/P (MAP) Pulse Ox O2 Delivery O2 Flow Rate FiO2 06/10/17 10:00 68 06/10/17 09:02 97.8 75 18 138/72 (94) 99 06/10/17 09:00 90 06/10/17 08:00 66 06/10/17 07:00 65 06/10/17 06:01 97.6 70 16 129/58 (81) 99 06/09/17 23:51 96.7 76 16 137/74 (95) 96 06/09/17 21:00 98.0 86 18 141/63 (89) 95 06/09/17 21:00 93 06/09/17 17:00 92 06/09/17 16:00 100 06/09/17 15:38 98.6 104 18 111/62 (78) 96 06/09/17 15:00 103 06/09/17 14:00 96 06/09/17 13:00 94 06/09/17 12:00 84 06/10/17 06/10/17 06/10/17 07:00 15:00 23:00 Output Total 1100 ml Balance -1100 ml Result Diagram: 06/10/17 0600 06/10/17 0600 Laboratory Results Laboratory Tests Test 06/10/17 06:00 White Blood Count 12.0 TH/MM3 Red Blood Count 3.40 MIL/MM3 Hemoglobin 10.4 GM/DL Hematocrit 31.7 % Mean Corpuscular Volume 93.3 FL Mean Corpuscular Hemoglobin 30.7 PG Mean Corpuscular Hemoglobin Concent 32.9 % Red Cell Distribution Width 21.8 % Platelet Count 271 TH/MM3 Mean Platelet Volume 7.2 FL Neutrophils (%) (Auto) 92.5 % Lymphocytes (%) (Auto) 3.3 % Monocytes (%) (Auto) 4.0 % Eosinophils (%) (Auto) 0.0 % Basophils (%) (Auto) 0.2 % Neutrophils # (Auto) 11.1 TH/MM3 Lymphocytes # (Auto) 0.4 TH/MM3 Monocytes # (Auto) 0.5 TH/MM3 Eosinophils # (Auto) 0.0 TH/MM3 Basophils # (Auto) 0.0 TH/MM3 CBC Comment DIFF FINAL Differential Comment Prothrombin Time 10.1 SEC Prothromb Time International Ratio 1.0 RATIO Fibrinogen 429 mg/dL Blood Urea Nitrogen 13 MG/DL Creatinine 0.68 MG/DL Random Glucose 128 MG/DL Total Protein 6.9 GM/DL Albumin 2.9 GM/DL Calcium Level 8.5 MG/DL Phosphorus Level 3.6 MG/DL Magnesium Level 2.4 MG/DL Uric Acid 5.9 MG/DL Alkaline Phosphatase 69 U/L Aspartate Amino Transf (AST/SGOT) 20 U/L Alanine Aminotransferase (ALT/SGPT) 33 U/L Total Bilirubin 0.7 MG/DL Sodium Level 140 MEQ/L Potassium Level 3.9 MEQ/L Chloride Level 108 MEQ/L Carbon Dioxide Level 25.6 MEQ/L Anion Gap 6 MEQ/L Estimat Glomerular Filtration Rate 142 ML/MIN Administered Medications Medications (Trade) Dose Ordered Sig/Emma Route PRN Reason Start Time Stop Time Status Last Admin Dose Admin Pantoprazole Sodium (Protonix) 20 mg DAILY PO 06/09/17 09:00 06/10/17 09:05 Enoxaparin Sodium (Lovenox Inj) 40 mg DAILY SQ 06/09/17 09:00 06/10/17 09:05 Dexamethasone Sodium Phosphate (Decadron Opth 0.1% Soln) 2 drop QID EACH EYE 06/08/17 18:00 06/15/17 13:01 06/10/17 09:05 Sodium Chloride 1,000 ml @ 75 mls/hr [id number] IV 06/08/17 16:00 06/09/17 23:57 Clonazepam (KlonoPIN) 1 mg HS PRN PO insomnia 06/08/17 16:15 06/09/17 23:57 Ondansetron HCl (Zofran Inj) 4 mg Q6HR PRN IV PUSH nausea 06/08/17 16:30 06/09/17 16:44 Acyclovir (Zovirax) 400 mg Q12HR PO 06/10/17 09:00 06/10/17 09:51 Objective Remarks GENERAL: Young man, sitting up in bed in nad. SKIN: Warm and dry. HEAD: Normocephalic. EYES: No injection or drainage. NECK: Supple, trachea midline. CARDIOVASCULAR: Regular rate and rhythm RESPIRATORY: Breath sounds equal bilaterally. No accessory muscle use. GASTROINTESTINAL: Abdomen soft, non-tender, nondistended. EXTREMITIES: No cyanosis NEUROLOGICAL: awake and alert, normal speech. Assessment/Plan Problem List: (1) AML (acute myelogenous leukemia) ICD Codes: C92.00 - Acute myeloblastic leukemia, not having achieved remission Status: Chronic Plan: 06/08: Admission start [facility] D1A 1800 06/09: D1B 0600 06/10: D2A @ 1800. monitor uric acid and phosphorus levels. Monitor Daily: --uric acid and phosphorus levels, fibrinogen. Infectious disease prophylaxis: --Bactrim double-strength Wednesday, Wednesday and Wednesday, Cipro 250 mg Wednesday, and Wednesday. --acyclovir 200 mg p.o. b.i.d. Gastroesophageal reflux disease: pantoprazole. DVT prophylaxis: Lovenox subcu 40 mg daily. Assessment 27-year-old male with AML in complete remission, admitted for consolidation chemotherapy. Plan 1. start second day of chemotherapy today (dose 2A) 2. monitor labs as above. 3. continue prophylactic medications as above. Attending Statement The exam, history, and the medical decision-making described in the above note were completed with the assistance of the mid-level provider. I reviewed and agree with the findings presented. I attest that I had a [id number] encounter with the patient on the same day, and personally performed and documented my assessment and findings in the medical record. Problem Qualifiers (1) AML (acute myelogenous leukemia): Qualified Codes: C92.01 - Acute myeloblastic leukemia, in remission Fartun Pagan Jun 10, 2017 11:58 Joey Santoyo MD Jun 10, 2017 21:26
[2017-06-10] MEDS: SODIUM CHLOR 0.9% 1000 ML INJ 1,000 ML IV SCH (18:23)
[2017-06-10] MEDS: GRANISETRON HCL 1 MG/ML VIAL IV SCH (23:32)
[2017-06-10] MEDS: DEXAMETHASONE SOD PHOS 20 MG/5 ML VIAL IV SCH (23:32)
[2017-06-11] VITALS (21 sets, daily range): BP systolic 102–139; BP diastolic 41–64; PULSE 57–88; RESP 16–20; TEMP 97.5–98; O2SAT 94–99
[2017-06-11] MEDS: SODIUM CHLOR 0.9% IV SCH ×2 (00:05→11:16)
[2017-06-11] MEDS: CYTARABINE IV SCH ×2 (00:05→11:16)
[2017-06-11 05:52] LABS: AUTOMATED NEUTROPHIL # 7.4 TH/MM3 (1.8-7.7); BASOPHIL % 0.1 % (0.0-2.0); HEMATOCRIT 31.6 % (39.0-51.0); HEMOGLOBIN 10.3 GM/DL (13.0-17.0); LYMPH % 2.4 % (9.0-44.0); LYMPHOCYTE # 0.2 TH/MM3 (1.0-4.8); MEAN CELL VOLUME 93.8 FL (80.0-100.0); MEAN CORPUSCULAR HEMOGLOBIN 30.7 PG (27.0-34.0); MEAN CORPUSCULAR HGB CONC 32.7 % (32.0-36.0); MEAN PLATELET VOLUME 7.5 FL (7.0-11.0); MONO % 0.8 % (0.0-8.0); MONOCYTE # 0.1 TH/MM3 (0-0.9); NEUT % 96.7 % (16.0-70.0); PLATELET COUNT 260 TH/MM3 (150-450); RED BLOOD COUNT 3.36 MIL/MM3 (4.50-5.90); RED CELL DISTRIBUTION WIDTH 21.8 % (11.6-17.2); WHITE BLOOD COUNT 7.6 TH/MM3 (4.0-11.0)
[2017-06-11 06:20] LABS: ALBUMIN 3.2 GM/DL (3.4-5.0); ALKALINE PHOSPHATASE 77 U/L (45-117); ALT (GPT) 39 U/L (12-78); AST (GOT) 24 U/L (15-37); BICARBONATE 25.1 MEQ/L (21.0-32.0); BLOOD UREA NITROGEN 15 MG/DL (7-18); CALCIUM 8.5 MG/DL (8.5-10.1); CHLORIDE 108 MEQ/L (98-107); GLOMERULAR FILTRATION RATE 164 ML/MIN (>89); GLUCOSE,RANDOM 120 MG/DL (74-106); SODIUM (NA) 139 MEQ/L (136-145); TOTAL BILIRUBIN ADULT 0.6 MG/DL (0.2-1.0); TOTAL PROTEIN 7.1 GM/DL (6.4-8.2)
[2017-06-11] MEDS ORDERED: HYDROmorphone HCL PF 2 MG/ML VIAL IV SCH (06:45)
[2017-06-11] MEDS ORDERED: SULFAMETHOXAZOLE-TRIMETHOPRIM DS 800-160 MG TAB PO SCH (09:00)
[2017-06-11] MEDS: ACYCLOVIR 200 MG CAP PO SCH ×2 (09:38→20:06)
[2017-06-11] MEDS: PANTOPRAZOLE SOD 20 MG DELAYED RELEASE TAB PO SCH (09:39)
[2017-06-11] MEDS: SUCRALFATE 1 GM TAB PO SCH ×4 (09:39→20:06)
[2017-06-11] MEDS: DEXAMETHASONE SOD PHOS 0.1% OPHT SOLN 5 ML BTL EACH EYE SCH ×4 (09:39→20:06)
[2017-06-11] MEDS: ENOXAPARIN SODIUM 40 MG/0.4 ML SYRINGE SQ SCH (09:39)
--- NOTE | 2017-06-11 11:21 | PD.ONC.PN ---
Subjective Subjective Remarks Afebrile overnight. Patient resting in bed. reporting last night he had his same abdominal pain that he has had with previous cycles of chemotherapy. He required a dose of dilaudid for breakthrough pain. Feels better this AM. no nausea or vomiting. ate breakfast without problems. Objective Data Date Time Temp Pulse Resp B/P (MAP) Pulse Ox O2 Delivery O2 Flow Rate FiO2 06/11/17 11:13 98.0 62 18 126/57 (80) 96 06/11/17 08:00 97.6 80 20 123/53 (76) 94 06/11/17 06:00 76 06/11/17 05:00 68 06/11/17 04:00 98.0 67 18 121/64 (83) 98 06/11/17 04:00 57 06/11/17 03:00 66 06/11/17 02:00 70 06/11/17 01:00 88 06/11/17 00:00 97.5 67 16 135/53 (80) 99 06/11/17 00:00 78 06/11/17 00:00 76 06/10/17 23:00 76 06/10/17 22:00 74 06/10/17 21:00 74 06/10/17 20:00 82 06/10/17 20:00 98.0 78 16 136/69 (91) 98 06/10/17 20:00 81 06/10/17 19:00 74 06/10/17 17:00 74 06/10/17 16:00 82 06/10/17 15:37 97.7 82 18 139/66 (90) 99 06/10/17 15:00 82 06/10/17 14:00 84 06/10/17 13:00 78 06/10/17 12:30 98.3 64 18 130/59 (82) 100 06/10/17 12:00 74 06/11/17 06/11/17 06/11/17 07:00 15:00 23:00 Intake Total 800 ml Output Total 2000 ml Balance -1200 ml Result Diagram: 06/11/1751906/11/17519 Laboratory Results Laboratory Tests Test 06/10/17 12:35 06/11/17 05:20 Fibrinogen 416 mg/dL 360 mg/dL White Blood Count 7.6 TH/MM3 Red Blood Count 3.36 MIL/MM3 Hemoglobin 10.3 GM/DL Hematocrit 31.6 % Mean Corpuscular Volume 93.8 FL Mean Corpuscular Hemoglobin 30.7 PG Mean Corpuscular Hemoglobin Concent 32.7 % Red Cell Distribution Width 21.8 % Platelet Count 260 TH/MM3 Mean Platelet Volume 7.5 FL Neutrophils (%) (Auto) 96.7 % Lymphocytes (%) (Auto) 2.4 % Monocytes (%) (Auto) 0.8 % Eosinophils (%) (Auto) 0.0 % Basophils (%) (Auto) 0.1 % Neutrophils # (Auto) 7.4 TH/MM3 Lymphocytes # (Auto) 0.2 TH/MM3 Monocytes # (Auto) 0.1 TH/MM3 Eosinophils # (Auto) 0.0 TH/MM3 Basophils # (Auto) 0.0 TH/MM3 CBC Comment DIFF FINAL Differential Comment Blood Urea Nitrogen 15 MG/DL Creatinine 0.60 MG/DL Random Glucose 120 MG/DL Total Protein 7.1 GM/DL Albumin 3.2 GM/DL Calcium Level 8.5 MG/DL Phosphorus Level 2.0 MG/DL Uric Acid 5.4 MG/DL Alkaline Phosphatase 77 U/L Aspartate Amino Transf (AST/SGOT) 24 U/L Alanine Aminotransferase (ALT/SGPT) 39 U/L Total Bilirubin 0.6 MG/DL Sodium Level 139 MEQ/L Potassium Level 4.4 MEQ/L Chloride Level 108 MEQ/L Carbon Dioxide Level 25.1 MEQ/L Anion Gap 6 MEQ/L Estimat Glomerular Filtration Rate 164 ML/MIN Administered Medications Medications (Trade) Dose Ordered Sig/Emma Route PRN Reason Start Time Stop Time Status Last Admin Dose Admin Pantoprazole Sodium (Protonix) 20 mg DAILY PO 06/09/17 09:00 06/11/17 09:39 Enoxaparin Sodium (Lovenox Inj) 40 mg DAILY SQ 06/09/17 09:00 06/11/17 09:39 Dexamethasone Sodium Phosphate (Decadron Opth 0.1% Soln) 2 drop QID EACH EYE 06/08/17 18:00 06/15/17 13:01 06/11/17 09:39 Sodium Chloride 1,000 ml @ 75 mls/hr [id number] IV 06/08/17 16:00 06/10/17 18:23 Clonazepam (KlonoPIN) 1 mg HS PRN PO insomnia 06/08/17 16:15 06/09/17 23:57 Ondansetron HCl (Zofran Inj) 4 mg Q6HR PRN IV PUSH nausea 06/08/17 16:30 06/09/17 16:44 Granisetron HCl (Kytril Inj) 1 mg Q48H IV 06/10/17 18:00 06/12/17 18:01 06/10/17 23:32 Dexamethasone Sodium Phosphate (Decadron Inj) 20 mg Q48H IV 06/10/17 17:30 06/12/17 17:31 06/10/17 23:32 Trimethoprim/ Sulfamethoxazole (Bactrim Ds 800-160 Mg) 1 tab MoWeFr@09 PO 06/11/17 09:00 06/11/17 09:39 Acyclovir (Zovirax) 400 mg Q12HR PO 06/10/17 09:00 06/11/17 09:38 Oxycodone HCl (Roxicodone) 5 mg Q4H PRN PO pain 1-10 06/10/17 15:45 06/11/17 09:38 Sucralfate (Carafate) 1 gm ACHS PO 06/11/17 08:00 06/11/17 09:39 Objective Remarks GENERAL: Young man, lying in bed watching TV. appears comfortable and in nad. SKIN: Warm and dry. HEAD: Normocephalic. EYES: No injection or drainage. NECK: Supple, trachea midline. CARDIOVASCULAR: Regular rate and rhythm RESPIRATORY: Breath sounds equal bilaterally. No accessory muscle use. GASTROINTESTINAL: belly is soft and non-distended. +obese. there is no tenderness to palpation. +BS. EXTREMITIES: No cyanosis NEUROLOGICAL: awake and alert, normal speech. no obvious focal deficit. Assessment/Plan Problem List: (1) AML (acute myelogenous leukemia) ICD Codes: C92.00 - Acute myeloblastic leukemia, not having achieved remission Status: Chronic Plan: 06/08: Admission start [facility] D1A 1800 06/09: D1B 0600 06/10: D2A @ 1800. 06/11: D2B @0600. Monitor Daily: --uric acid and phosphorus levels, fibrinogen. Infectious disease prophylaxis: --Bactrim double-strength Wednesday, Wednesday and Wednesday, Cipro 250 mg Wednesday, and Wednesday. --acyclovir 200 mg p.o. b.i.d. Gastroesophageal reflux disease: pantoprazole. DVT prophylaxis: Lovenox subcu 40 mg daily. Assessment 27-year-old male with AML in complete remission, admitted for consolidation chemotherapy. Plan 1. give dose 2B of chemotherapy today 2. monitor labs as above. 3. start carafate for epigastric abdominal pain. Attending Statement The exam, history, and the medical decision-making described in the above note were completed with the assistance of the mid-level provider. I reviewed and agree with the findings presented. I attest that I had a [id number] encounter with the patient on the same day, and personally performed and documented my assessment and findings in the medical record. Problem Qualifiers (1) AML (acute myelogenous leukemia): Qualified Codes: C92.01 - Acute myeloblastic leukemia, in remission Fartun Pagan Jun 11, 2017 11:21 Joey Santoyo MD Jun 11, 2017 22:46
[2017-06-11] MEDS: SODIUM CHLOR 0.9% 1000 ML INJ 1,000 ML IV SCH (14:29)
[2017-06-11] MEDS: ONDANSETRON HCL 4 MG/2 ML VIAL IV PUSH PRN (19:14)
[2017-06-12] VITALS (29 sets, daily range): BP systolic 99–139; BP diastolic 36–71; PULSE 54–87; RESP 16–18; TEMP 96.3–98.5; O2SAT 99–100
[2017-06-12] MEDS: SODIUM CHLOR 0.9% 1000 ML INJ 1,000 ML IV SCH ×2 (05:13→17:34)
[2017-06-12 06:17] LABS: AUTOMATED NEUTROPHIL # 9.3 TH/MM3 (1.8-7.7); BASOPHIL % 0.1 % (0.0-2.0); HEMATOCRIT 29.5 % (39.0-51.0); HEMOGLOBIN 9.9 GM/DL (13.0-17.0); LYMPH % 2.4 % (9.0-44.0); LYMPHOCYTE # 0.2 TH/MM3 (1.0-4.8); MEAN CORPUSCULAR HEMOGLOBIN 30.9 PG (27.0-34.0); MEAN CORPUSCULAR HGB CONC 33.6 % (32.0-36.0); MEAN PLATELET VOLUME 7.3 FL (7.0-11.0); MONO % 1.2 % (0.0-8.0); MONOCYTE # 0.1 TH/MM3 (0-0.9); NEUT % 96.3 % (16.0-70.0); PLATELET COUNT 253 TH/MM3 (150-450); RED CELL DISTRIBUTION WIDTH 20.6 % (11.6-17.2); WHITE BLOOD COUNT 9.7 TH/MM3 (4.0-11.0)
[2017-06-12 06:45] LABS: BICARBONATE 30.4 MEQ/L (21.0-32.0); CALCIUM 8.3 MG/DL (8.5-10.1); CREATININE 0.67 MG/DL (0.60-1.30); PHOSPHORUS 4.1 MG/DL (2.5-4.9)
[2017-06-12] MEDS: ACYCLOVIR 200 MG CAP PO SCH ×2 (08:13→20:19)
[2017-06-12] MEDS: PANTOPRAZOLE SOD 20 MG DELAYED RELEASE TAB PO SCH (08:13)
[2017-06-12] MEDS: SUCRALFATE 1 GM TAB PO SCH ×4 (08:13→20:19)
[2017-06-12] MEDS: ENOXAPARIN SODIUM 40 MG/0.4 ML SYRINGE SQ SCH (08:14)
[2017-06-12] MEDS: DEXAMETHASONE SOD PHOS 0.1% OPHT SOLN 5 ML BTL EACH EYE SCH ×4 (08:14→20:20)
--- NOTE | 2017-06-12 12:31 | PD.ONC.PN ---
Subjective Subjective Remarks Afebrile overnight. Patient again had epigastric abdominal pain last night, but states this time it was controlled with Oxycodone. He is otherwise tolerating chemotherapy. No vomiting. No diarrhea. No chest pain. Objective Data Date Time Temp Pulse Resp B/P (MAP) Pulse Ox O2 Delivery O2 Flow Rate FiO2 06/12/17 12:00 68 06/12/17 11:21 96.3 62 18 131/64 (86) 100 06/12/17 11:00 85 06/12/17 10:00 54 06/12/17 09:00 56 06/12/17 08:08 97.4 68 18 109/55 (73) 100 06/12/17 08:00 58 06/12/17 07:00 54 06/12/17 07:00 54 06/12/17 06:00 58 06/12/17 05:11 97.5 65 16 99/36 (57) 100 06/12/17 04:38 57 06/12/17 04:00 56 06/12/17 03:00 64 06/12/17 02:00 64 06/12/17 01:00 70 06/12/17 00:03 87 06/12/17 00:00 82 06/12/17 00:00 97.5 65 16 139/62 (87) 99 06/11/17 23:00 58 06/11/17 22:00 58 06/11/17 21:00 60 06/11/17 20:00 61 06/11/17 20:00 97.6 67 18 102/41 (61) 99 06/11/17 20:00 66 06/11/17 19:00 70 06/11/17 15:00 79 06/11/17 14:00 81 06/11/17 14:00 72 06/11/17 13:00 60 06/12/17 06/12/17 06/12/17 07:00 15:00 23:00 Intake Total 720 ml Output Total 2400 ml 650 ml Balance -1680 ml -650 ml Result Diagram: 06/12/17 0516 06/12/17 0516 Laboratory Results Laboratory Tests Test 06/12/17 05:16 White Blood Count 9.7 TH/MM3 Red Blood Count 3.20 MIL/MM3 Hemoglobin 9.9 GM/DL Hematocrit 29.5 % Mean Corpuscular Volume 92.0 FL Mean Corpuscular Hemoglobin 30.9 PG Mean Corpuscular Hemoglobin Concent 33.6 % Red Cell Distribution Width 20.6 % Platelet Count 253 TH/MM3 Mean Platelet Volume 7.3 FL Neutrophils (%) (Auto) 96.3 % Lymphocytes (%) (Auto) 2.4 % Monocytes (%) (Auto) 1.2 % Eosinophils (%) (Auto) 0.0 % Basophils (%) (Auto) 0.1 % Neutrophils # (Auto) 9.3 TH/MM3 Lymphocytes # (Auto) 0.2 TH/MM3 Monocytes # (Auto) 0.1 TH/MM3 Eosinophils # (Auto) 0.0 TH/MM3 Basophils # (Auto) 0.0 TH/MM3 CBC Comment DIFF FINAL Differential Comment Fibrinogen 311 mg/dL Blood Urea Nitrogen 13 MG/DL Creatinine 0.67 MG/DL Random Glucose 109 MG/DL Calcium Level 8.3 MG/DL Phosphorus Level 4.1 MG/DL Uric Acid 4.7 MG/DL Sodium Level 140 MEQ/L Potassium Level 3.7 MEQ/L Chloride Level 105 MEQ/L Carbon Dioxide Level 30.4 MEQ/L Anion Gap 5 MEQ/L Estimat Glomerular Filtration Rate 145 ML/MIN Administered Medications Medications (Trade) Dose Ordered Sig/Emma Route PRN Reason Start Time Stop Time Status Last Admin Dose Admin Pantoprazole Sodium (Protonix) 20 mg DAILY PO 06/09/17 09:00 06/12/17 08:13 Enoxaparin Sodium (Lovenox Inj) 40 mg DAILY SQ 06/09/17 09:00 06/12/17 08:14 Dexamethasone Sodium Phosphate (Decadron Opth 0.1% Soln) 2 drop QID EACH EYE 06/08/17 18:00 06/15/17 13:01 06/12/17 08:14 Sodium Chloride 1,000 ml @ 75 mls/hr [id number] IV 06/08/17 16:00 06/12/17 05:13 Clonazepam (KlonoPIN) 1 mg HS PRN PO insomnia 06/08/17 16:15 06/09/17 23:57 Ondansetron HCl (Zofran Inj) 4 mg Q6HR PRN IV PUSH nausea 06/08/17 16:30 06/11/17 19:14 Granisetron HCl (Kytril Inj) 1 mg Q48H IV 06/10/17 18:00 06/12/17 18:01 06/10/17 23:32 Dexamethasone Sodium Phosphate (Decadron Inj) 20 mg Q48H IV 06/10/17 17:30 06/12/17 17:31 06/10/17 23:32 Trimethoprim/ Sulfamethoxazole (Bactrim Ds 800-160 Mg) 1 tab MoWeFr@09 PO 06/11/17 09:00 06/11/17 09:39 Acyclovir (Zovirax) 400 mg Q12HR PO 06/10/17 09:00 06/12/17 08:13 Sucralfate (Carafate) 1 gm ACHS PO 06/11/17 08:00 06/12/17 11:29 Oxycodone HCl (Roxicodone) 10 mg Q4H PRN PO pain 1-10 06/11/17 15:45 06/12/17 11:29 Objective Remarks GENERAL: Young man, supine in bed resting in nad. SKIN: Warm and dry. HEAD: Normocephalic. EYES: No injection or drainage. NECK: Supple, trachea midline. CARDIOVASCULAR: Regular rate and rhythm RESPIRATORY: Breath sounds equal bilaterally. No accessory muscle use. GASTROINTESTINAL: soft, nontender, no masses. EXTREMITIES: No cyanosis NEUROLOGICAL: awake and alert, normal speech. no obvious focal deficit. Assessment/Plan Problem List: (1) AML (acute myelogenous leukemia) ICD Codes: C92.00 - Acute myeloblastic leukemia, not having achieved remission Status: Chronic Plan: 06/08: Admission start [facility] D1A 1800 06/09: D1B 0600 06/10: D2A @ 1800. 06/11: D2B @0600. 06/12: D3A @ 1800 Monitor Daily: --uric acid and phosphorus levels, fibrinogen. Infectious disease prophylaxis: --Bactrim double-strength Wednesday, Wednesday and Wednesday, Cipro 250 mg Wednesday, and Wednesday. --acyclovir 200 mg p.o. b.i.d. Gastroesophageal reflux disease: pantoprazole. DVT prophylaxis: Lovenox subcu 40 mg daily. Assessment 27-year-old male with AML in complete remission, admitted for consolidation chemotherapy. Plan 1. give dose 3A of chemotherapy this evening. 2. monitor labs as above. Attending Statement The exam, history, and the medical decision-making described in the above note were completed with the assistance of the mid-level provider. I reviewed and agree with the findings presented. I attest that I had a [id number] encounter with the patient on the same day, and personally performed and documented my assessment and findings in the medical record. Patient complaining of abdominal discomfort He denies any nausea vomiting or diarrhea Tolerating the chemotherapy So far well. Cycle number three of high-dose araC consolidation chemotherapy Problem Qualifiers (1) AML (acute myelogenous leukemia): Qualified Codes: C92.01 - Acute myeloblastic leukemia, in remission Fartun Pagan Jun 12, 2017 12:31 Luz Marina Taylor MD Jun 12, 2017 22:58
[2017-06-12] MEDS: ONDANSETRON HCL 4 MG/2 ML VIAL IV PUSH PRN (13:08)
[2017-06-12] MEDS: GRANISETRON HCL 1 MG/ML VIAL IV SCH (16:37)
[2017-06-12] MEDS: DEXAMETHASONE SOD PHOS 20 MG/5 ML VIAL IV SCH (16:37)
[2017-06-12] MEDS: CYTARABINE IV SCH (17:29)
[2017-06-12] MEDS: SODIUM CHLOR 0.9% IV SCH (17:29)
[2017-06-12] MEDS: clonazePAM 1 MG TAB PO PRN (21:50)
[2017-06-13] VITALS (11 sets, daily range): BP systolic 108–137; BP diastolic 49–70; PULSE 54–107; RESP 16–18; TEMP 97–98.3; O2SAT 98–100
[2017-06-13] MEDS: SODIUM CHLOR 0.9% IV SCH (05:10)
[2017-06-13] MEDS: CYTARABINE IV SCH (05:10)
[2017-06-13 06:06] LABS: BASOPHIL % 0.1 % (0.0-2.0); HEMATOCRIT 28.4 % (39.0-51.0); HEMOGLOBIN 9.8 GM/DL (13.0-17.0); LYMPH % 2.6 % (9.0-44.0); LYMPHOCYTE # 0.1 TH/MM3 (1.0-4.8); MEAN CORPUSCULAR HEMOGLOBIN 31.5 PG (27.0-34.0); MEAN CORPUSCULAR HGB CONC 34.6 % (32.0-36.0); MEAN PLATELET VOLUME 7.2 FL (7.0-11.0); MONO % 0.2 % (0.0-8.0); NEUT % 97.1 % (16.0-70.0); PLATELET COUNT 228 TH/MM3 (150-450); RED BLOOD COUNT 3.12 MIL/MM3 (4.50-5.90); RED CELL DISTRIBUTION WIDTH 19.6 % (11.6-17.2); WHITE BLOOD COUNT 5.1 TH/MM3 (4.0-11.0)
[2017-06-13 06:30] LABS: BICARBONATE 30.1 MEQ/L (21.0-32.0); CALCIUM 8.8 MG/DL (8.5-10.1); CREATININE 0.66 MG/DL (0.60-1.30); PHOSPHORUS 3.9 MG/DL (2.5-4.9)
[2017-06-13] MEDS ORDERED: ACYC200C66 PO (07:56)
[2017-06-13] MEDS ORDERED: SULF1TAB23 PO (07:56)
--- NOTE | 2017-06-13 08:00 | HHI.DCPOC ---
Discharge Care Plan Diagnosis: (1) AML (acute myelogenous leukemia) Goals to Promote Your Health * To prevent worsening of your condition and complications * To maintain your health at the optimal level Directions to Meet Your Goals Take your medications as prescribed Follow your dietary instruction Follow activity as directed Keep your appointments as scheduled Take your immunizations and boosters as scheduled If your symptoms worsen call your PCP, if no PCP go to Urgent Care Center or Emergency Room Smoking is Dangerous to Your Health. Avoid second hand smoke Call the 24-hour hour crisis hotline for domestic abuse at Fartun Pagan Jun 13, 2017 08:00
--- NOTE | 2017-06-13 08:04 | HHI.DS ---
Discharge Summary Admission Date Jun 08, 2017 at 10:47 Discharge Date: Jun 13, 2017 Admitting Diagnosis AML, admitted for consolidation chemotherapy with High Dose LUISANA-C (1) AML (acute myelogenous leukemia) ICD Codes: C92.00 - Acute myeloblastic leukemia, not having achieved remission Status: Chronic Brief History Mr. Duarte is a 27 year old male diagnosed with Acute Myelogenous Leukemia in fall. He achieved a complete remission and has undergone previous consolidation chemotherapy. He lost his insurance briefly at the end of 2016, and chemotherapy was delayed. He is being admitted for consolidation chemotherapy. CBC/BMP: 06/13/17 0450 06/13/17 0450 Significant Findings Laboratory Tests Test 06/10/17 12:35 06/11/17 05:20 06/12/17 05:16 06/13/17 04:50 Fibrinogen 416 mg/dL (227-377) Red Blood Count 3.36 MIL/MM3 (4.50-5.90) 3.20 MIL/MM3 (4.50-5.90) 3.12 MIL/MM3 (4.50-5.90) Hemoglobin 10.3 GM/DL (13.0-17.0) 9.9 GM/DL (13.0-17.0) 9.8 GM/DL (13.0-17.0) Hematocrit 31.6 % (39.0-51.0) 29.5 % (39.0-51.0) 28.4 % (39.0-51.0) Red Cell Distribution Width 21.8 % (11.6-17.2) 20.6 % (11.6-17.2) 19.6 % (11.6-17.2) Neutrophils (%) (Auto) 96.7 % (16.0-70.0) 96.3 % (16.0-70.0) 97.1 % (16.0-70.0) Lymphocytes (%) (Auto) 2.4 % (9.0-44.0) 2.4 % (9.0-44.0) 2.6 % (9.0-44.0) Lymphocytes # (Auto) 0.2 TH/MM3 (1.0-4.8) 0.2 TH/MM3 (1.0-4.8) 0.1 TH/MM3 (1.0-4.8) Random Glucose 120 MG/DL (74-106) 109 MG/DL (74-106) 122 MG/DL (74-106) Albumin 3.2 GM/DL (3.4-5.0) Phosphorus Level 2.0 MG/DL (2.5-4.9) Chloride Level 108 MEQ/L (98-107) Neutrophils # (Auto) 9.3 TH/MM3 (1.8-7.7) Calcium Level 8.3 MG/DL (8.5-10.1) Anion Gap 4 MEQ/L (5-15) PE at Discharge please see physical exam from progress note on date of discharge Hospital Course Mr. Duarte was admitted on 06/08/17. His home medications were resumed. Baseline labs were obtained. He received chemotherapy with high-dose LUISANA-C as scheduled on days 1, 3, and 5. He is being discharged in good condition with instructions for follow up. Pt Condition on Discharge: Good Discharge Disposition: Discharge Home Discharge Instructions DIET: Follow Instructions for: As Tolerated, No Restrictions Activities you can perform: Regular-No Restrictions Fartun Pagan Jun 13, 2017 08:04
[2017-06-13] MEDS: ENOXAPARIN SODIUM 40 MG/0.4 ML SYRINGE SQ SCH (08:41)
[2017-06-13] MEDS: ACYCLOVIR 200 MG CAP PO SCH (08:41)
[2017-06-13] MEDS: PANTOPRAZOLE SOD 20 MG DELAYED RELEASE TAB PO SCH (08:41)
[2017-06-13] MEDS: SUCRALFATE 1 GM TAB PO SCH (08:41)
[2017-06-13] MEDS: DEXAMETHASONE SOD PHOS 0.1% OPHT SOLN 5 ML BTL EACH EYE SCH (08:41)
--- NOTE | 2017-06-13 09:52 | PD.ONC.PN ---
Subjective Subjective Remarks Afebrile overnight. Patient resting in bed. Eager to go home. Completed chemotherapy this AM without adverse reaction. Objective Data Date Time Temp Pulse Resp B/P (MAP) Pulse Ox O2 Delivery O2 Flow Rate FiO2 06/13/17 08:36 98.3 107 18 137/70 (92) 100 06/13/17 07:00 58 06/13/17 06:00 60 06/13/17 05:00 54 06/13/17 04:49 97.0 69 16 124/57 (79) 98 06/13/17 04:00 56 06/13/17 04:00 58 06/13/17 03:00 60 06/13/17 02:00 58 06/13/17 01:00 68 06/13/17 00:21 98.2 80 16 108/49 (68) 98 06/13/17 00:00 68 06/12/17 23:00 60 06/12/17 22:00 74 06/12/17 21:00 72 06/12/17 20:00 76 06/12/17 20:00 82 06/12/17 20:00 98.5 75 16 124/55 (78) 99 06/12/17 19:00 74 06/12/17 18:00 62 06/12/17 17:00 76 06/12/17 16:00 68 06/12/17 15:42 96.4 70 18 135/71 (92) 100 06/12/17 15:00 69 06/12/17 14:00 68 06/12/17 13:00 58 06/12/17 12:00 68 06/12/17 11:21 96.3 62 18 131/64 (86) 100 06/12/17 11:00 85 06/12/17 10:00 54 06/13/17 06/13/17 06/13/17 07:00 15:00 23:00 Intake Total 900 ml Output Total 2700 ml 450 ml Balance -1800 ml -450 ml Result Diagram: 06/13/17 0450 06/13/17 0450 Laboratory Results Laboratory Tests Test 06/13/17 04:50 White Blood Count 5.1 TH/MM3 Red Blood Count 3.12 MIL/MM3 Hemoglobin 9.8 GM/DL Hematocrit 28.4 % Mean Corpuscular Volume 91.0 FL Mean Corpuscular Hemoglobin 31.5 PG Mean Corpuscular Hemoglobin Concent 34.6 % Red Cell Distribution Width 19.6 % Platelet Count 228 TH/MM3 Mean Platelet Volume 7.2 FL Neutrophils (%) (Auto) 97.1 % Lymphocytes (%) (Auto) 2.6 % Monocytes (%) (Auto) 0.2 % Eosinophils (%) (Auto) 0.0 % Basophils (%) (Auto) 0.1 % Neutrophils # (Auto) 5.0 TH/MM3 Lymphocytes # (Auto) 0.1 TH/MM3 Monocytes # (Auto) 0.0 TH/MM3 Eosinophils # (Auto) 0.0 TH/MM3 Basophils # (Auto) 0.0 TH/MM3 CBC Comment DIFF FINAL Differential Comment Fibrinogen 298 mg/dL Blood Urea Nitrogen 14 MG/DL Creatinine 0.66 MG/DL Random Glucose 122 MG/DL Calcium Level 8.8 MG/DL Phosphorus Level 3.9 MG/DL Uric Acid 3.9 MG/DL Sodium Level 138 MEQ/L Potassium Level 4.0 MEQ/L Chloride Level 104 MEQ/L Carbon Dioxide Level 30.1 MEQ/L Anion Gap 4 MEQ/L Estimat Glomerular Filtration Rate 147 ML/MIN Administered Medications Medications (Trade) Dose Ordered Sig/Emma Route PRN Reason Start Time Stop Time Status Last Admin Dose Admin Pantoprazole Sodium (Protonix) 20 mg DAILY PO 06/09/17 09:00 06/13/17 08:41 Enoxaparin Sodium (Lovenox Inj) 40 mg DAILY SQ 06/09/17 09:00 06/13/17 08:41 Dexamethasone Sodium Phosphate (Decadron Opth 0.1% Soln) 2 drop QID EACH EYE 06/08/17 18:00 06/15/17 13:01 06/13/17 08:41 Sodium Chloride 1,000 ml @ 75 mls/hr [id number] IV 06/08/17 16:00 06/12/17 17:34 Clonazepam (KlonoPIN) 1 mg HS PRN PO insomnia 06/08/17 16:15 06/12/17 21:50 Ondansetron HCl (Zofran Inj) 4 mg Q6HR PRN IV PUSH nausea 06/08/17 16:30 06/12/17 13:08 Trimethoprim/ Sulfamethoxazole (Bactrim Ds 800-160 Mg) 1 tab MoWeFr@09 PO 06/11/17 09:00 06/11/17 09:39 Acyclovir (Zovirax) 400 mg Q12HR PO 06/10/17 09:00 06/13/17 08:41 Sucralfate (Carafate) 1 gm ACHS PO 06/11/17 08:00 06/13/17 08:41 Oxycodone HCl (Roxicodone) 10 mg Q4H PRN PO pain 1-10 06/11/17 15:45 06/12/17 11:29 Heparin Sodium (Porcine) (Heparin Central Flush) 500 units UNSCH PRN IV FLUSH DE-ACCESSING 06/13/17 09:30 06/13/17 09:42 Objective Remarks GENERAL: Young man, resting in bed in nad. SKIN: Warm and dry. HEAD: Normocephalic. EYES: No injection or drainage. NECK: Supple, trachea midline. CARDIOVASCULAR: Regular rate and rhythm RESPIRATORY: Breath sounds equal bilaterally. No accessory muscle use. GASTROINTESTINAL: soft, nontender. EXTREMITIES: No cyanosis NEUROLOGICAL: awake. no focal deficit. Assessment/Plan Problem List: (1) AML (acute myelogenous leukemia) ICD Codes: C92.00 - Acute myeloblastic leukemia, not having achieved remission Status: Chronic Plan: 06/08: Admission start [facility] D1A 1800 06/09: D1B 0600 06/10: D2A @ 1800. 06/11: D2B @0600. 2: D3A @ 1800 06/13: D3B @0600. Monitor Daily: --uric acid and phosphorus levels, fibrinogen. Infectious disease prophylaxis: --Bactrim double-strength Wednesday, Wednesday and Wednesday, Cipro 250 mg Wednesday, and Wednesday. --acyclovir 200 mg p.o. b.i.d. Gastroesophageal reflux disease: pantoprazole. DVT prophylaxis: Lovenox subcu 40 mg daily. Assessment 27-year-old male with AML in complete remission, admitted for consolidation chemotherapy. Plan 1. discharge home. 2. follow up in clinic this week. appointment date and time printed and given to patient. Fartun Pagan Jun 13, 2017 09:52
== END 2017-06-13 09:52 | disposition home or self-care (01) | DRG 839 ==
LOC: HDIC 10:47 → HCIN 14:29
PROVIDERS: ADMIT Internal Medicine; ATTEND Internal Medicine
DX: Z51.11 Encounter for antineoplastic chemotherapy (principal); C92.01 Acute myeloblastic leukemia, in remission; E66.01 Morbid (severe) obesity due to excess calories; F41.9 Anxiety disorder, unspecified; Z87.19 Personal history of other diseases of the digestive system; K21.9 Gastro-esophageal reflux disease without esophagitis
CPT/HCPCS: 80048; 80053; 83735; 84100; 84550; 85025; 85384; 85610; J1100; J1170; J1626; J1642; J1650; J2405; J7030; J7050; J9100

== ENCOUNTER 2017-06-20 08:57 | Inpatient (IN) | payer MEDICAID ==
[~2017-06-20] VITALS: Ht 188 cm; Wt 150.2 kg
[2017-06-20] VITALS (20 sets, daily range): BP systolic 93–130; BP diastolic 48–58; PULSE 84–122; RESP 18–24; TEMP 98.4–103.2; O2SAT 97–100
[~2017-06-20 08:57] MED LIST changes: +ACYC200C66 PO; -AMLO5 PO; -ENDO10TA8 PO; +SULF1TAB23 PO; -[UNRECOGNIZED DRUG - CODE] IV
--- NOTE | 2017-06-20 09:55 | PD ---
HPI Chief Complaint: Fever Time Seen by Provider: 09:37 Travel History International Travel<30 days: No Contact w/Intl Traveler<30days: No Traveled to known affect area: No History of Present Illness HPI The patient is a 27-year-old male who presents to the emergency department via EMS for fever. The patient has a history of AML and is followed by Dr. Santoyo. The patient last received chemotherapy 1 week ago. He was advised to come to the emergency department if he develops fever. The patient states he developed fevers high as 103, complains of headache, body aches, cough , nausea, vomiting, and diarrhea. He denies any history of C. difficile. He did receive an influenza vaccination this year. He denies any sick contacts at home. Symptoms are moderate, there are no current alleviating or exacerbating factors. He is at risk for neutropenic fever secondary to previous chemotherapy. PFSH Past Medical History Autoimmune Disease: No Anxiety: Yes Depression: Yes Cancer: Yes (AML (Acute Myelogenous Leukemia), Thrombocytopenia, Lymphocytosis) Cardiovascular Problems: No Chemotherapy: Yes Cerebrovascular Accident: No Diabetes: No Diminished Hearing: No Endocrine: No Gastrointestinal Disorders: Yes GERD: Yes Genitourinary: No Headaches: No Immune Disorder: Yes (AML (Acute Myelogenous Leukemia), Thrombocytopenia, Lymphocytosis) Implanted Vascular Access Dvce: Yes Musculoskeletal: No Neurologic: No Psychiatric: Yes Reproductive: No Respiratory: No Immunizations Current: Yes Migraines: Yes Radiation Therapy: No Seizures: No Thyroid Disease: No Ulcer: Yes Past Surgical History AICD: No Arteriovenous Shunt: No Insulin Pump: No Joint Replacement: No Oral Surgery: Yes (WISDOM TEETH REMOVAL) Pacemaker: No Other Surgery: Yes (Mdoyzy-n-Lehp placement) Social History Alcohol Use: Yes (SOCIAL) Tobacco Use: No Substance Use: Yes (CANNABIS) Allergies-Medications (Allergen,Severity, Reaction): Coded Allergies: No Known Allergies (Verified Allergy, Unknown, 05/28/17) Reported Meds & Prescriptions Reported Meds & Active Scripts Active Acyclovir 200 Mg Cap 400 Mg PO Q12HR 10 Days Sulfamethoxazole-Trimethoprim 800-160 Mg Tab 1 Tab PO MOWEFR@09 10 Days Prozac (Fluoxetine HCl) 20 Mg Cap 20 Mg PO DAILY Klonopin (Clonazepam) 1 Mg Tab 1 Mg PO HS Sucralfate Liq (Sucralfate) 1 Gram/10 Ml Erin 1 Gm PO ACHS 30 Days Review of Systems Except as stated in HPI: all other systems reviewed are Neg General / Constitutional: Positive: Fever, Chills HENT: Positive: Headaches, No: Sore Throat Cardiovascular: No: Chest Pain or Discomfort Respiratory: Positive: Cough, No: Shortness of Breath Gastrointestinal: Positive: Nausea, Vomiting, Diarrhea, Abdominal Pain Genitourinary: No: Dysuria Musculoskeletal: Positive: Myalgias, Arthralgias Skin: No Rash Physical Exam Narrative GENERAL: Awake, alert, 27-year-old male who appears his stated age and is in no acute respiratory distress. SKIN: Focused skin assessment warm/dry. Tattoo noted over the right chest wall. HEAD: Atraumatic. Normocephalic. EYES: Pupils equal and round. No scleral icterus. No injection or drainage. ENT: No nasal bleeding or discharge. Mucous membranes pink and moist. No exudate noted. NECK: Trachea midline. No JVD. No meningeal signs. CARDIOVASCULAR: Regular, tachycardic with a heart rate of 110. Port in place right chest wall. RESPIRATORY: No accessory muscle use. Clear to auscultation. Breath sounds equal bilaterally. GASTROINTESTINAL: Abdomen soft, non-tender, nondistended. No rebound tenderness. MUSCULOSKELETAL: No obvious deformities. No clubbing. No cyanosis. No edema. Positive distal pulses. NEUROLOGICAL: Awake and alert. No obvious cranial nerve deficits. Motor grossly within normal limits. Normal speech. PSYCHIATRIC: Appropriate mood and affect; insight and judgment normal. Data Data Last Documented VS Vital Signs Date Time Temp Pulse Resp B/P (MAP) Pulse Ox O2 Delivery O2 Flow Rate FiO2 06/20/17 10:36 101.9 109 24 93/51 (65) 100 06/20/17 09:46 Room Air Orders Orders Sepsis Workup Initiated (06/20/17 ) Complete Blood Count With Diff (06/20/17 09:39) Comprehensive Metabolic Panel (06/20/17 09:39) Urinalysis - C+S If Indicated (06/20/17 09:39) Lactic Acid Sepsis Protocol (06/20/17 09:39) Chest, Single Ap (06/20/17 09:39) Blood Culture (06/20/17 09:39) Iv Access Insert/Monitor (06/20/17 09:39) Oxygen Administration (06/20/17 09:39) Oximetry (06/20/17 09:39) Blood Glucose (06/20/17 09:39) Influenzae A/B Antigen (06/20/17 09:49) Ketorolac Inj (Toradol Inj) (06/20/17 10:00) Ondansetron Inj (Zofran Inj) (06/20/17 10:00) Sodium Chlor 0.9% 1000 Ml Inj (Ns 1000 M (06/20/17 10:00) Cefepime Inj (Maxipime Inj) (06/20/17 10:00) Morphine Inj (Morphine Inj) (06/20/17 10:15) Consult Hematology (06/20/17 ) (Hub Use Only)Inp Phy Cons/Ref (06/20/17 ) Platelet Pheresis Irradiated (06/20/17 10:51) Blood Product Administration (06/20/17 10:51) Sodium Chlor 0.9% 250 Ml Inj (Ns 250 Ml (06/20/17 11:00) Benadryl (Po) In 4 Hr Prn (06/20/17 11:00) Acetaminophen (Tylenol) (06/20/17 11:00) Labs Laboratory Tests Test 06/20/17 09:43 06/20/17 09:45 White Blood Count 0.1 TH/MM3 Red Blood Count 2.58 MIL/MM3 Hemoglobin 7.9 GM/DL Hematocrit 22.6 % Mean Corpuscular Volume 87.7 FL Mean Corpuscular Hemoglobin 30.6 PG Mean Corpuscular Hemoglobin Concent 34.9 % Red Cell Distribution Width 17.2 % Platelet Count 9 TH/MM3 Mean Platelet Volume 9.4 FL CBC Comment AUTO DIFF Blood Urea Nitrogen 11 MG/DL Creatinine 0.95 MG/DL Random Glucose 99 MG/DL Total Protein 6.9 GM/DL Albumin 3.2 GM/DL Calcium Level 9.1 MG/DL Alkaline Phosphatase 86 U/L Aspartate Amino Transf (AST/SGOT) 11 U/L Alanine Aminotransferase (ALT/SGPT) 40 U/L Total Bilirubin 1.8 MG/DL Sodium Level 136 MEQ/L Potassium Level 3.4 MEQ/L Chloride Level 103 MEQ/L Carbon Dioxide Level 24.4 MEQ/L Anion Gap 9 MEQ/L Estimat Glomerular Filtration Rate 97 ML/MIN Lactic Acid Level 1.8 mmol/L MDM Medical Decision Making Medical Screen Exam Complete: Yes Emergency Medical Condition: Yes Medical Record Reviewed: Yes Interpretation(s) Last Impressions Chest X-Ray 06/20/1739 Signed Impressions: Service Date/Time: Tuesday, June 20, 2017 09:49 - CONCLUSION: No acute disease. Katie Hollins MD Laboratory Tests Test 06/20/17 09:43 06/20/17 09:45 White Blood Count 0.1 TH/MM3 Red Blood Count 2.58 MIL/MM3 Hemoglobin 7.9 GM/DL Hematocrit 22.6 % Mean Corpuscular Volume 87.7 FL Mean Corpuscular Hemoglobin 30.6 PG Mean Corpuscular Hemoglobin Concent 34.9 % Red Cell Distribution Width 17.2 % Platelet Count 9 TH/MM3 Mean Platelet Volume 9.4 FL CBC Comment AUTO DIFF Blood Urea Nitrogen 11 MG/DL Creatinine 0.95 MG/DL Random Glucose 99 MG/DL Total Protein 6.9 GM/DL Albumin 3.2 GM/DL Calcium Level 9.1 MG/DL Alkaline Phosphatase 86 U/L Aspartate Amino Transf (AST/SGOT) 11 U/L Alanine Aminotransferase (ALT/SGPT) 40 U/L Total Bilirubin 1.8 MG/DL Sodium Level 136 MEQ/L Potassium Level 3.4 MEQ/L Chloride Level 103 MEQ/L Carbon Dioxide Level 24.4 MEQ/L Anion Gap 9 MEQ/L Estimat Glomerular Filtration Rate 97 ML/MIN Lactic Acid Level 1.8 mmol/L Differential Diagnosis Differential diagnosis includes neutropenic fever, sepsis, bacteremia, influenza , pneumonia, UTI, viral syndrome, chemotherapy side effect. Narrative Course The patient's port was accessed, labs are drawn and sent, and the patient was placed on cardiac telemetry monitoring and continuous pulse oximetry monitoring. The patient was administered IV fluids, Zofran, morphine, and Toradol. Lactic acid and blood culture were sent to lab. Chest x-ray was obtained. Influenza screen was sent to lab. Chest x-rays negative. Influenza screen is negative. Platelets 0.1, hemoglobin 7.9, platelets are 9. I discussed the patient with the on-call office coordinator receptionist/oncologist for Dr. Santoyo, Dr. small, who recommends 1 single unit donor of platelets, patient has a history of leukocyte reduced platelets, therefore, those were ordered. The patient did receive cefepime 2 g intravenously. The patient will be admitted to the medical service. I discussed the patient Dr. Hernandez who agrees with admission. Sepsis Criteria SIRS Criteria (2 or more): Temp > 100.9 or < 96.8, Heart rate over 90, WBC > 58116, < 4000 or > 10% bands Criteria Outcome: Meets SIRS criteria Physician Communication Physician Communication The on-call office coordinator receptionist was paged. The on-call medical service was paged for admission. I discussed the patient with Dr. Hernandez who agrees with admission. Diagnosis Primary Impression: Neutropenic fever Additional Impression: Pancytopenia Admitting Information Admitting Physician Requests: Admit Condition: Stable Cornelio Covarrubias MD Jun 20, 2017 09:55
[2017-06-20] MEDS ORDERED: KETOROLAC TROMETHAMINE 30 MG/ML (IVP) VIAL IV PUSH ONE (10:00)
[2017-06-20] MEDS ORDERED: SODIUM CHLOR 0.9% 1000 ML INJ 1,000 ML IV ONE (10:00)
[2017-06-20] MEDS ORDERED: ONDANSETRON HCL 4 MG/2 ML VIAL IV PUSH ONE (10:00)
[2017-06-20] MEDS ORDERED: CEFEPIME INJ 2,000 MG in SODIUM CHLORIDE 0.9% INJ 100 ML IV ONE (10:00)
[2017-06-20] MEDS ORDERED: MORPHINE SULFATE 4 MG/ML INJ IV PUSH ONE (10:15)
--- NOTE | 2017-06-20 10:15 | RADRPT ---
EXAM DATE/TIME: 06/20/2017 09:49 [facility] COMPARISON: CHEST SINGLE AP, May 13, 2017, 5:55. INDICATIONS : Fever MEDICAL HISTORY : Leukemia. SURGICAL HISTORY : ENCOUNTER: Initial ACUITY: 1 day PAIN SCORE: 0/10 LOCATION: chest FINDINGS: There is a stable central line present with the tip overlying the mid SVC. A single view of the chest demonstrates the lungs to be symmetrically aerated without evidence of mas s, infiltrate or effusion. The cardiomediastinal contours are unremarkable. Osseous structures are intact. CONCLUSION: No acute disease. Katie Hollins MD on June 20, 2017 at 10:12 Board Certified Radiologist. This report was verified electronically.
[2017-06-20 10:17] LABS: MEAN CELL VOLUME 87.7 FL (80.0-100.0); MEAN CORPUSCULAR HEMOGLOBIN 30.6 PG (27.0-34.0); MEAN CORPUSCULAR HGB CONC 34.9 % (32.0-36.0); MEAN PLATELET VOLUME 9.4 FL (7.0-11.0); RED BLOOD COUNT 2.58 MIL/MM3 (4.50-5.90); RED CELL DISTRIBUTION WIDTH 17.2 % (11.6-17.2); WHITE BLOOD COUNT 0.1 TH/MM3 (4.0-11.0)
[2017-06-20 10:24] LABS: HEMATOCRIT 22.6 % (39.0-51.0); HEMOGLOBIN 7.9 GM/DL (13.0-17.0); PLATELET COUNT 9 TH/MM3 (150-450)
[2017-06-20 10:37] LABS: ALBUMIN 3.2 GM/DL (3.4-5.0); AST (GOT) 11 U/L (15-37); BICARBONATE 24.4 MEQ/L (21.0-32.0); BLOOD UREA NITROGEN 11 MG/DL (7-18); CALCIUM 9.1 MG/DL (8.5-10.1); CHLORIDE 103 MEQ/L (98-107); CREATININE 0.95 MG/DL (0.60-1.30); GLOMERULAR FILTRATION RATE 97 ML/MIN (>89); GLUCOSE,RANDOM 99 MG/DL (74-106); SODIUM (NA) 136 MEQ/L (136-145)
[2017-06-20 10:38] LABS: ALT (GPT) 40 U/L (12-78)
[2017-06-20 10:40] LABS: ALKALINE PHOSPHATASE 86 U/L (45-117); TOTAL BILIRUBIN ADULT 1.8 MG/DL (0.2-1.0); TOTAL PROTEIN 6.9 GM/DL (6.4-8.2)
[2017-06-20 10:54] LABS: LYMPHOCYTES 100 % (9-44)
[2017-06-20] MEDS ORDERED: SODIUM CHLORIDE 0.9% FLUSH 10 ML FLUSH IV FLUSH PRN (11:00)
[2017-06-20] MEDS ORDERED: NALOXONE HCL 0.4 MG/ML AMP IV PUSH PRN (11:00)
[2017-06-20] MEDS ORDERED: ACETAMINOPHEN/HYDROcodone 325 MG/10 MG TAB PO PRN (11:00)
[2017-06-20] MEDS ORDERED: SODIUM CHLOR 0.9% 250 ML INJ 250 ML IV ONE (11:00)
[2017-06-20] MEDS ORDERED: MAGNESIUM HYDROXIDE SUSP 30 ML CUP PO PRN (11:00)
[2017-06-20] MEDS ORDERED: ACETAMINOPHEN/HYDROcodone 325 MG/5 MG TAB PO PRN (11:00)
[2017-06-20] MEDS ORDERED: ACETAMINOPHEN 325 MG TAB PO ONE (11:00)
[2017-06-20] MEDS: SODIUM CHLOR 0.9% 1000 ML INJ 1,000 ML IV SCH ×2 (11:14→20:59)
[2017-06-20] MEDS: diphenhydrAMINE HCL 25 MG CAP PO PRN (13:02)
[2017-06-20] MEDS: HYDROmorphone HCL PF 2 MG/ML VIAL IV PUSH PRN ×3 (13:04→22:26)
--- NOTE | 2017-06-20 13:53 | HHI.HP ---
[facility] Catina Brian MD Admission Diagnosis neutropenic fever, pancytopenia, thrombocytopenia Diagnoses: Travel History International Travel<30 Days: No Contact w/Intl Traveler <30 Da: No Traveled to Known Affected Are: No History of Present Illness Mr. Duarte is a 27-year-old male. He came in today secondary to diffuse pain is and is found to have pancytopenia and neutropenic fever. He has AML at baseline. His last chemotherapy was approximately one week ago. He says he's felt fine most of the week but starting yesterday she was feeling bad with increasing pain and malaise. She did not notice the fevers until he got to our hospital. Other abnormalities today or hypokalemia, thrombocytopenia, and anemia. He is fluent negative. Cefepime has been started as a treatment and he has a platelet transfusion pending. The patient knows of no active areas of infection. He has not had painful urinations or cough and cannot recall any skin injuries. Review of Systems Constitutional: COMPLAINS OF: Fatigue, Fever, DENIES: Chills, Night Sweats Endocrine: DENIES: Heat/cold intolerance Eyes: DENIES: Blurred vision, Diplopia, Eye inflammation, Eye pain Ears, nose, mouth, throat: DENIES: Tinnitus, Hearing loss, Vertigo, Nasal discharge Respiratory: DENIES: Cough, Wheezing, Hemoptysis, Shortness of breath Cardiovascular: DENIES: Chest pain, Palpitations, Syncope Gastrointestinal: DENIES: Abdominal pain, Black stools, Bloody stools Musculoskeletal: COMPLAINS OF: Joint pain, Muscle aches, DENIES: Stiffness, Joint Swelling Integumentary: DENIES: Abnormal pigmentation, Nail changes, Pruritus, Rash Hematologic/lymphatic: DENIES: Bruising, Lymphadenopathy Immunologic/allergic: DENIES: Eczema, Urticaria Neurologic: DENIES: Abnormal gait, Headache, Paresthesias Psychiatric: DENIES: Anxiety, Confusion, Hallucinations Past Family Social History Past Medical History Acute myeloid leukemia History of erosive esophagitis Obesity Anxiety Past Surgical History Bone marrow biopsy Reported Medications Reported Meds & Active Scripts Active Acyclovir 200 Mg Cap 400 Mg PO Q12HR 10 Days Sulfamethoxazole-Trimethoprim 800-160 Mg Tab 1 Tab PO MOWEFR@09 10 Days Prozac (Fluoxetine HCl) 20 Mg Cap 20 Mg PO DAILY Klonopin (Clonazepam) 1 Mg Tab 1 Mg PO HS Sucralfate Liq (Sucralfate) 1 Gram/10 Ml Erin 1 Gm PO ACHS 30 Days Allergies: Coded Allergies: No Known Allergies (Verified Allergy, Unknown, 05/28/17) Active Ordered Medications Administered Medications Medications (Trade) Dose Ordered Sig/Emma Route PRN Reason Start Time Stop Time Status Last Admin Dose Admin Diphenhydramine HCl (Benadryl) 25 mg UNSCH X1 PRN PO ITCHING 06/20/17 11:00 06/23/17 10:59 06/20/17 13:02 Sodium Chloride 1,000 ml @ 100 mls/hr Q10H IV 06/20/17 10:51 06/20/17 11:14 Hydromorphone HCl (Dilaudid Pf Inj) 1 mg Q4H PRN IV PUSH Pain 7 to 10 06/20/17 12:15 06/20/17 13:04 Family History No known family medical history Social History No illicit drug abuse No alcohol abuse No smoking Physical Exam Vital Signs Vital Signs Date Time Temp Pulse Resp B/P (MAP) Pulse Ox O2 Delivery O2 Flow Rate FiO2 06/20/17 11:59 98 18 102/53 (69) 100 06/20/17 10:36 101.9 109 24 93/51 (65) 100 06/20/17 09:46 99 06/20/17 09:46 Room Air 06/20/17 09:34 103.2 122 22 130/54 (79) 99 Room Air 06/20/17 09:30 103.2 122 22 130/54 (79) 99 Physical Exam GENERAL: NAD, A&Ox3, obese, patient appears in pain HEAD: Normocephalic. NECK: Supple, trachea midline. No lymphadenopathy. EYES: No scleral icterus. No injection or drainage. CARDIOVASCULAR: Regular rate and rhythm without murmurs, gallops, or rubs. RESPIRATORY: Breath sounds equal bilaterally. No accessory muscle use. GASTROINTESTINAL: Abdomen soft, non-tender, nondistended. MUSCULOSKELETAL: No cyanosis, or edema. SKIN: Warm and dry. NEURO: No focal neurological deficitis. Laboratory Laboratory Tests Test 06/20/17 09:43 06/20/17 09:45 White Blood Count 0.1 Red Blood Count 2.58 Hemoglobin 7.9 Hematocrit 22.6 Mean Corpuscular Volume 87.7 Mean Corpuscular Hemoglobin 30.6 Mean Corpuscular Hemoglobin Concent 34.9 Red Cell Distribution Width 17.2 Platelet Count 9 Mean Platelet Volume 9.4 CBC Comment AUTO DIFF Differential Total Cells Counted 15 Lymphocytes % 100 Neutrophils # (Manual) 0.0 Differential Comment FINAL DIFF MANUAL Platelet Estimate RARE Platelet Morphology Comment NORMAL Blood Urea Nitrogen 11 Creatinine 0.95 Random Glucose 99 Total Protein 6.9 Albumin 3.2 Calcium Level 9.1 Alkaline Phosphatase 86 Aspartate Amino Transf (AST/SGOT) 11 Alanine Aminotransferase (ALT/SGPT) 40 Total Bilirubin 1.8 Sodium Level 136 Potassium Level 3.4 Chloride Level 103 Carbon Dioxide Level 24.4 Anion Gap 9 Estimat Glomerular Filtration Rate 97 Lactic Acid Level 1.8 Date/Time Source Procedure Growth Status 06/20/17 09:50 Blood Peripheral Aerobic Blood Culture Pending Received 06/20/17 09:50 Blood Peripheral Anaerobic Blood Culture Pending Received 06/20/17 09:55 Nasal Aspirate Influenza Types A,B Antigen (SUNDAR) - Final NEGATIVE FOR FLU A AND B ANTIGEN.... Complete Result Diagram: 06/20/1794206/20/17942 Imaging Last Impressions Chest X-Ray 06/20/1739 Signed Impressions: Service Date/Time: Tuesday, June 20, 2017 09:49 - CONCLUSION: No acute disease. Katie Hollins MD Septic Shock Reassessment Septic shock perfusion: reassessment completed Caprini VTE Risk Assessment Caprini VTE Risk Assessment: No/Low Risk (score <= 1) Caprini Risk Assessment Model Point Value = 1 Point Value = 2 Point Value = 3 Point Value = 5 Age 41-60 Minor surgery BMI > 25 kg/m2 Swollen legs Varicose veins or History of unexplained or recurrent spontaneous Oral contraceptives or hormone replacement Sepsis (< 1 month) Serious lung disease, including pneumonia (< 1 month) Abnormal pulmonary function Acute myocardial infarction Congestive heart failure (< 1 month) History of inflammatory bowel disease Medical patient at bed rest Age 61-74 Arthroscopic surgery Major open surgery (> 45 min) Laparoscopic surgery (> 45 min) Malignancy Confined to bed (> 72 hours) Immobilizing plaster cast Central venous access Age >= 75 History of VTE Family history of VTE Factor V Leiden Prothrombin [id number] Lupus anticoagulant Anticardiolipin antibodies Elevated serum homocysteine Heparin-induced thrombocytopenia Other congenital or acquired thrombophilia Stroke (< 1 month) Elective arthroplasty Hip, pelvis, or leg fracture Acute spinal cord injury (< 1 month) Prophylaxis Regimen Total Risk Factor Score Risk Level Prophylaxis Regimen 0-1 Low Early ambulation 2 Moderate Order ONE of the following: *Sequential Compression Device (SCD) *Heparin 5000 units SQ BID 3-4 Higher Order ONE of the following medications: *Heparin 5000 units SQ TID *Enoxaparin/Lovenox 40 mg SQ daily (WT < 150 kg, CrCl > 30 mL/min) *Enoxaparin/Lovenox 30 mg SQ daily (WT < 150 kg, CrCl > 10-29 mL/min) *Enoxaparin/Lovenox 30 mg SQ BID (WT < 150 kg, CrCl > 30 mL/min) AND/OR *Sequential Compression Device (SCD) 5 or more Highest Order ONE of the following medications: *Heparin 5000 units SQ TID (Preferred with Epidurals) *Enoxaparin/Lovenox 40 mg SQ daily (WT < 150 kg, CrCl > 30 mL/min) *Enoxaparin/Lovenox 30 mg SQ daily (WT < 150 kg, CrCl > 10-29 mL/min) *Enoxaparin/Lovenox 30 mg SQ BID (WT < 150 kg, CrCl > 30 mL/min) AND *Sequential Compression Device (SCD) Assessment and Plan Problem List: (1) Neutropenic fever ICD Code: D70.9 - Neutropenia, unspecified; R50.81 - Fever presenting with conditions classified elsewhere Status: Resolved (2) Pancytopenia ICD Code: D61.818 - Other pancytopenia (3) AML (acute myelogenous leukemia) ICD Code: C92.00 - Acute myeloblastic leukemia, not having achieved remission Status: Chronic (4) Generalized pain ICD Code: R52 - Pain, unspecified Status: Resolved (5) Sepsis ICD Code: A41.9 - Sepsis, unspecified organism Status: Resolved Assessment and Plan 27-year-old male admitted secondary to neutropenic fever with pancytopenia and sepsis in the setting of AML. Sepsis Neutropenic fever Continue fluid replacement Follow vital signs Follow fevers Treatments cefepime empirically Neutropenic precautions Influenza testing is negative Follow blood cultures Continue prophylactic Bactrim Continue acyclovir Acute myeloid leukemia Pancytopenia Thrombocytopenia Hematology/Oncology consulted Follow CBC Last chemotherapy was approximately one week ago Platelet transfusion in process Hypokalemia Monitor potassium and replace as needed Gen. anxiety disorder Chronic depression Xanax as needed Clonazepam at night Fluoxetine daily DVT prophylaxis SCDs Due to degree of pancytopenia avoid anticoagulation right now Physician Certification 2 Midnight Certification Type: Admission for Inpatient Services Order for Inpatient Services The services are ordered in accordance with Medicare regulations or non- Medicare payer requirements, as applicable. In the case of services not specified as inpatient-only, they are appropriately provided as inpatient services in accordance with the 2-midnight benchmark. Estimated LOS (days): 5 days is the estimated time the patient will need to remain in the hospital, assuming treatment plan goals are met and no additional complications. Post-Hospital Plan: Home Nilson Hernandez MD Jun 20, 2017 13:53
[2017-06-20] MEDS ORDERED: ACETAMINOPHEN 650 MG/20.3 ML UDC PO PRN (14:00)
[2017-06-20] MEDS ORDERED: ALPRAZolam 0.25 MG TAB PO PRN (14:00)
[2017-06-20] MEDS ORDERED: Vancomycin Consult Pharmacy 1 EA OTHER SCH (14:15)
--- NOTE | 2017-06-20 15:33 | MB ---
cc: XOCHITL WRIGHT M.D. DATE OF CONSULTATION: 06/20/2017. REASON FOR CONSULTATION: Oncology was consulted to render an opinion regarding a patient with neutropenic fever after receiving consolidation chemotherapy for acute leukemia. CONSULTING PHYSICIAN: Dr. Covarrubias. 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 He went into remission with induction chemotherapy. He just received the third cycle of consolidation chemotherapy last week. He was doing well until 2:00 a.m. this morning when he woke up with diffuse pain. He described it as a bone pain. He also had a temperature up to 103. He has a mild headache. He has mild dyspnea on exertion because of the pain. He denies any chest pressure or palpitations. He had nausea and vomiting about four to six times this morning. He has mild loose stools. He denies any significant abdominal pain. He states that he usually is readmitted to the hospital after the consolidation chemotherapy for neutropenic fever. He did not receive any growth factor support. PAST MEDICAL HISTORY: 1. Acute myelogenous leukemia. 2. Obesity. 3. Anxiety. 4. Erosive esophagitis. PAST SURGICAL HISTORY: Bone marrow biopsy twice. FAMILY HISTORY: No leukemia. SOCIAL HISTORY: No tobacco or alcohol use. ALLERGIES: NO KNOWN DRUG ALLERGIES. OUTPATIENT MEDICATIONS: 1. Acyclovir. 2. Protonix. 3. Bactrim. 4. Cipro. 5. Klonopin. 6. Oxycodone PRN. REVIEW OF SYSTEMS: CONSTITUTIONAL: As above. EYES: Negative. ENT: Negative. CARDIOVASCULAR: Denies any chest pressure or palpitations. RESPIRATORY: Denies any shortness of breath or cough. GI: As above. : Denies any dysuria or hematuria. MUSCULOSKELETAL: As above. HEMATOLOGIC: As above. ENDOCRINE: Negative. DERMATOLOGIC: Negative. PSYCHIATRIC: Negative. NEUROLOGIC: Negative. PHYSICAL EXAMINATION: VITAL SIGNS: T-max 103.2, T current 98.8, blood pressure 113/55, pulse 94, 02 saturation 97%. GENERAL: He is alert and oriented times three and in no acute distress. He is obese. HEAD, EYES, EARS, NOSE, THROAT: Atraumatic, normocephalic. Pupils equal, round, reactive to light. Extraocular muscles intact. No scleral icterus. OROPHARYNX: Dry mucosa. No lesions. I could not see any thrush. NECK: No thyromegaly. No palpable mass. LYMPHATIC: No palpable cervical, clavicular, axillary or inguinal lymph nodes. CARDIOVASCULAR: Regular S1 and S2. No murmur. LUNGS: Clear to auscultation bilaterally. ABDOMEN: Abdomen soft. Nontender. I could not palpate the liver or spleen. EXTREMITIES: No cyanosis or clubbing. No edema. SKIN: He has a small erythematous lesion in his left facial cheek with a tiny black eschar in the middle. Port site with no erythema. LABORATORY DATA: WBC 0.1, hemoglobin 7.9, platelet count 9000. Creatinine of 0.95. Liver transaminases within normal limits. Total bilirubin 1.8. ASSESSMENT: 1. Pancytopenia with neutropenic fever. He had developed pancytopenia due to the recent consolidation chemotherapy. He just received a third cycle of high-dose LUISANA-C a week ago. His hemoglobin is 7.9 and the platelet count is down to 9000. Will arrange for him to have a platelet transfusion. Continue to monitor CBC closely. 2. Neutropenic fever. He had a temperature up to 103.2. Chest x-ray did not show any acute changes. Urinalysis is pending. Blood culture has been drawn and is pending inflows. Influenza type A and B rapid test negative. He has a small erythematous lesion of left facial cheek but I doubt that it is causing the fever. This lesion will need to be monitored to make sure it does not turn into cellulitis. He was started on cefepime in the emergency room. Will add Vancomycin. Monitor cultures. Consider giving him Neupogen if he has any signs of sepsis. 3. Acute myelogenous leukemia. FLT3 negative. Chromosome 16 inversion noted, which is a good prognostic feature. He went into remission with induction chemotherapy. He just completed his third cycle of consolidation high-dose LUISANA-C. No apparent recurrent disease noted at this time. 4. Morbid obesity. 5. Anxiety. 6. Erosive esophagitis. Continue the proton pump inhibitor. PLAN: 1. Continue cefepime. 2. Add Vancomycin. 3. Monitor blood culture. 4. Continue supportive care. Thank you for asking us to see this patient. Dr. Santoyo will follow the patient tomorrow. MD GWYN Morgan/YA /1:52 PM /3:14 PM [facility] [place] [facility]
[2017-06-20] MEDS: VANCOMYCIN INJ 2,250 MG in SODIUM CHLORID 0.9% 500 ML INJ 500 ML IV SCH (17:29)
[2017-06-20] MEDS: ONDANSETRON HCL 4 MG/2 ML VIAL IVP PRN ×2 (17:30→22:27)
[2017-06-20] MEDS: SUCRALFATE 1 GM/10 ML CUP PO SCH ×2 (17:30→22:31)
[2017-06-20] MEDS: CEFEPIME INJ 2,000 MG in SODIUM CHLORIDE 0.9% INJ 100 ML IV SCH (20:52)
[2017-06-20] MEDS: SODIUM CHLORIDE 0.9% FLUSH 10 ML FLUSH IV FLUSH SCH (21:01)
[2017-06-20] MEDS: ACYCLOVIR 200 MG CAP PO SCH (22:31)
[2017-06-20] MEDS: ACETAMINOPHEN 325 MG TAB PO PRN (22:31)
[2017-06-20] MEDS: clonazePAM 1 MG TAB PO SCH (22:31)
[2017-06-20 23:02] LABS: BILIRUBIN, URINE NEG (NEG); BLOOD, URINE NEG (NEG); GLUCOSE,URINE NEG (NEG); KETONE, URINE NEG (NEG); MUCUS URINE FEW /lpf (OCC); NITRITE,URINE NEG (NEG); SQUAMOUS EPITHELIAL CELL URINE <1 /hpf (0-5); URINE COLOR YELLOW (YELLW/STRAW); URINE LEUKOCYTE ESTERASE NEG (NEG)
[2017-06-21] VITALS (23 sets, daily range): BP systolic 98–155; BP diastolic 35–77; PULSE 107–135; RESP 16–24; TEMP 100–103.2; O2SAT 93–100
[2017-06-21] MEDS: VANCOMYCIN INJ 2,250 MG in SODIUM CHLORID 0.9% 500 ML INJ 500 ML IV SCH ×3 (01:16→16:41)
[2017-06-21] MEDS: CEFEPIME INJ 2,000 MG in SODIUM CHLORIDE 0.9% INJ 100 ML IV SCH ×3 (02:34→20:07)
[2017-06-21] MEDS: HYDROmorphone HCL PF 2 MG/ML VIAL IV PUSH PRN ×5 (02:37→21:31)
[2017-06-21] MEDS: ACETAMINOPHEN 325 MG TAB PO PRN ×2 (04:55→12:48)
[2017-06-21 05:05] LABS: MEAN CELL VOLUME 86.8 FL (80.0-100.0); MEAN CORPUSCULAR HEMOGLOBIN 30.5 PG (27.0-34.0); MEAN CORPUSCULAR HGB CONC 35.2 % (32.0-36.0); MEAN PLATELET VOLUME 7.9 FL (7.0-11.0); RED BLOOD COUNT 2.21 MIL/MM3 (4.50-5.90); RED CELL DISTRIBUTION WIDTH 16.8 % (11.6-17.2); WHITE BLOOD COUNT 0.1 TH/MM3 (4.0-11.0)
[2017-06-21 05:12] LABS: HEMATOCRIT 19.1 % (39.0-51.0); HEMOGLOBIN 6.7 GM/DL (13.0-17.0); PLATELET COUNT 14 TH/MM3 (150-450)
[2017-06-21 05:35] LABS: ALBUMIN 2.6 GM/DL (3.4-5.0); ALKALINE PHOSPHATASE 65 U/L (45-117); ALT (GPT) 33 U/L (12-78); AST (GOT) 15 U/L (15-37); BICARBONATE 27.5 MEQ/L (21.0-32.0); BLOOD UREA NITROGEN 10 MG/DL (7-18); CALCIUM 8.3 MG/DL (8.5-10.1); CHLORIDE 102 MEQ/L (98-107); CREATININE 0.81 MG/DL (0.60-1.30); GLOMERULAR FILTRATION RATE 116 ML/MIN (>89); GLUCOSE,RANDOM 104 MG/DL (74-106); SODIUM (NA) 136 MEQ/L (136-145); TOTAL BILIRUBIN ADULT 2.3 MG/DL (0.2-1.0); TOTAL PROTEIN 6.3 GM/DL (6.4-8.2)
[2017-06-21] MEDS ORDERED: SODIUM CHLOR 0.9% 250 ML INJ 250 ML IV ONE (06:00)
[2017-06-21] MEDS: ONDANSETRON HCL 4 MG/2 ML VIAL IVP PRN ×2 (06:45→12:43)
[2017-06-21] MEDS: SODIUM CHLOR 0.9% 1000 ML INJ 1,000 ML IV SCH ×2 (06:50→21:16)
[2017-06-21 06:54] LABS: LYMPHOCYTES 100 % (9-44)
[2017-06-21] MEDS: SUCRALFATE 1 GM/10 ML CUP PO SCH ×4 (08:24→21:14)
[2017-06-21] MEDS: SODIUM CHLORIDE 0.9% FLUSH 10 ML FLUSH IV FLUSH SCH ×2 (08:24→21:00)
[2017-06-21] MEDS: ACYCLOVIR 200 MG CAP PO SCH ×2 (08:24→21:15)
[2017-06-21] MEDS: FLUoxetine HCL 20 MG CAP PO SCH (08:24)
[2017-06-21] MEDS ORDERED: METOCLOPRAMIDE HCL 10 MG/2 ML VIAL IV PUSH ONE (08:45)
[2017-06-21] MEDS ORDERED: ACETAMINOPHEN 1000 MG/100 ML 65 ML IV ONE (08:45)
[2017-06-21] MEDS ORDERED: SULFAMETHOXAZOLE-TRIMETHOPRIM DS 800-160 MG TAB PO SCH (09:00)
--- NOTE | 2017-06-21 09:18 | PD.ONC.PN ---
Subjective Subjective Remarks Tmax 101.9 overnight. Patient resting in bed. He feels nauseated and vomited this morning. He has body aches all over. He has pain in his left cheek where he describes an "ingrown hair." Objective Data Date Time Temp Pulse Resp B/P (MAP) Pulse Ox O2 Delivery O2 Flow Rate FiO2 06/21/17 08:31 101.9 129 18 129/60 (83) 98 06/21/17 07:04 114 06/21/17 06:05 114 06/21/17 06:00 100.9 06/21/17 06:00 101.5 06/21/17 05:05 111 06/21/17 04:35 102.2 112 18 155/77 (103) 99 06/21/17 04:03 108 06/21/17 03:00 109 06/21/17 02:09 107 06/21/17 01:02 114 06/21/17 00:55 101.8 110 16 111/44 (66) 97 06/21/17 00:06 118 06/20/17 23:05 116 06/20/17 22:09 110 06/20/17 21:08 101 06/20/17 20:50 102.9 111 18 115/48 (70) 99 06/20/17 20:05 106 06/20/17 19:30 110 06/20/17 19:00 100 06/20/17 18:00 96 06/20/17 18:00 98.7 06/20/17 17:00 84 06/20/17 16:00 90 06/20/17 15:43 87 06/20/17 15:00 90 06/20/17 15:00 98.4 90 18 112/50 (70) 99 06/20/17 14:25 98.4 90 18 112/50 99 06/20/17 14:03 98.8 90 20 120/58 99 06/20/17 12:00 98.8 94 22 113/55 (74) 97 06/20/17 11:59 98 18 102/53 (69) 100 06/20/17 10:36 101.9 109 24 93/51 (65) 100 06/20/17 09:46 99 06/20/17 09:46 Room Air 06/20/17 09:34 103.2 122 22 130/54 (79) 99 Room Air 06/20/17 09:30 103.2 122 22 130/54 (79) 99 06/21/17 06/21/17 06/21/17 07:00 15:00 23:00 Intake Total 2610 ml Output Total 1100 ml Balance 1510 ml Result Diagram: 06/21/17 0440 06/21/17 0440 Laboratory Results Laboratory Tests Test 06/20/17 09:43 06/20/17 09:45 06/20/17 22:00 06/21/17 04:40 White Blood Count 0.1 TH/MM3 0.1 TH/MM3 Red Blood Count 2.58 MIL/MM3 2.21 MIL/MM3 Hemoglobin 7.9 GM/DL 6.7 GM/DL Hematocrit 22.6 % 19.1 % Mean Corpuscular Volume 87.7 FL 86.8 FL Mean Corpuscular Hemoglobin 30.6 PG 30.5 PG Mean Corpuscular Hemoglobin Concent 34.9 % 35.2 % Red Cell Distribution Width 17.2 % 16.8 % Platelet Count 9 TH/MM3 14 TH/MM3 Mean Platelet Volume 9.4 FL 7.9 FL CBC Comment AUTO DIFF AUTO DIFF Differential Total Cells Counted 15 10 Lymphocytes % 100 % 100 % Neutrophils # (Manual) 0.0 TH/MM3 0.0 TH/MM3 Differential Comment FINAL DIFF MANUAL FINAL DIFF MANUAL Platelet Estimate RARE RARE Platelet Morphology Comment NORMAL NORMAL Blood Urea Nitrogen 11 MG/DL 10 MG/DL Creatinine 0.95 MG/DL 0.81 MG/DL Random Glucose 99 MG/DL 104 MG/DL Total Protein 6.9 GM/DL 6.3 GM/DL Albumin 3.2 GM/DL 2.6 GM/DL Calcium Level 9.1 MG/DL 8.3 MG/DL Alkaline Phosphatase 86 U/L 65 U/L Aspartate Amino Transf (AST/SGOT) 11 U/L 15 U/L Alanine Aminotransferase (ALT/SGPT) 40 U/L 33 U/L Total Bilirubin 1.8 MG/DL 2.3 MG/DL Sodium Level 136 MEQ/L 136 MEQ/L Potassium Level 3.4 MEQ/L 3.6 MEQ/L Chloride Level 103 MEQ/L 102 MEQ/L Carbon Dioxide Level 24.4 MEQ/L 27.5 MEQ/L Anion Gap 9 MEQ/L 7 MEQ/L Estimat Glomerular Filtration Rate 97 ML/MIN 116 ML/MIN Lactic Acid Level 1.8 mmol/L Urine Color YELLOW Urine Turbidity CLEAR Urine pH 7.0 Urine Specific [place] 1.017 Urine Protein 30 mg/dL Urine Glucose (UA) NEG mg/dL Urine Ketones NEG mg/dL Urine Occult Blood NEG Urine Nitrite NEG Urine Bilirubin NEG Urine Urobilinogen LESS THAN 2.0 MG/DL Urine Leukocyte Esterase NEG Urine RBC 1 /hpf Urine WBC 1 /hpf Urine Squamous Epithelial Cells <1 /hpf Urine Mucus FEW /lpf Microscopic Urinalysis Comment CULT NOT INDICATED Culture Results Microbiology Date/Time Source Procedure Growth Status 06/20/17 09:50 Blood Peripheral Aerobic Blood Culture Pending Received 06/20/17 09:50 Blood Peripheral Anaerobic Blood Culture Pending Received 06/20/17 09:43 Blood Peripheral Aerobic Blood Culture Pending Received 06/20/17 09:43 Blood Peripheral Anaerobic Blood Culture Pending Received 06/20/17 09:55 Nasal Aspirate Influenza Types A,B Antigen (SUNDAR) - Final NEGATIVE FOR FLU A AND B ANTIGEN.... Complete Imaging Studies Last 24 hours Impressions Chest X-Ray 06/20/1739 Signed Impressions: Service Date/Time: Tuesday, June 20, 2017 09:49 - CONCLUSION: No acute disease. Katie Hollins MD Administered Medications Medications (Trade) Dose Ordered Sig/Emma Route PRN Reason Start Time Stop Time Status Last Admin Dose Admin Diphenhydramine HCl (Benadryl) 25 mg UNSCH X1 PRN PO ITCHING 06/20/17 11:00 06/23/17 10:59 06/20/17 13:02 Sodium Chloride 1,000 ml @ 100 mls/hr Q10H IV 06/20/17 10:51 06/21/17 06:50 Sodium Chloride (NS Flush) 2 ml UNSCH PRN IV FLUSH FLUSH AFTER USING IV ACCESS 06/20/17 11:00 06/21/17 04:42 Sodium Chloride (NS Flush) 2 ml BID IV FLUSH 06/20/17 21:00 06/20/17 21:01 Ondansetron HCl (Zofran Inj) 4 mg Q6H PRN IVP NAUSEA OR VOMITING 06/20/17 11:00 06/21/17 06:45 Cefepime HCl 2000 mg/Sodium Chloride 100 ml @ 200 mls/hr Q8H IV 06/20/17 18:00 06/21/17 02:34 Hydromorphone HCl (Dilaudid Pf Inj) 1 mg Q4H PRN IV PUSH Pain 7 to 10 06/20/17 12:15 06/21/17 06:47 Acyclovir (Zovirax) 400 mg Q12HR PO 06/20/17 21:00 06/21/17 08:24 Clonazepam (KlonoPIN) 1 mg HS PO 06/20/17 21:00 06/20/17 22:31 Fluoxetine HCl (PROzac) 20 mg DAILY PO 06/21/17 09:00 06/21/17 08:24 Sucralfate (Carafate Liq) 1 gm ACHS PO 06/20/17 17:00 06/21/17 08:24 Trimethoprim/ Sulfamethoxazole (Bactrim Ds 800-160 Mg) 1 tab MoWeFr@09 PO 06/21/17 09:00 06/21/17 08:24 Vancomycin HCl 2250 mg/Sodium Chloride 522.5 ml @ 257.5 mls/ hr Q8H IV 06/20/17 16:00 06/21/17 08:23 Objective Remarks GENERAL: Pleasant young man, lying in bed, He appears uncomfortable but non- toxic appearing and in nad. SKIN: Warm and dry. +pallor HEAD: Normocephalic. there is a quarter size area of erythema around an ingrown hair in the left jaw. submandibular and sublingual area are soft. no sign of ludwigs angina. EYES: No injection or drainage. NECK: Supple, trachea midline. CARDIOVASCULAR: tachycardic rate, regular rhythm. RESPIRATORY: Breath sounds equal bilaterally. No accessory muscle use. GASTROINTESTINAL: Abdomen soft, non-tender, nondistended. EXTREMITIES: No cyanosis NEUROLOGICAL: awake and alert, normal speech. moving all extremities. Assessment/Plan Problem List: (1) Neutropenic sepsis ICD Codes: A41.9 - Sepsis, unspecified organism; D70.9 - Neutropenia, unspecified Status: Resolved Plan: --on Vanco + Cefepime. --BC pending. --consult infectious disease. --source is likely left cheek cellulitis. --Influenza type A and B rapid test negative. U/A negative --CXR no infection. Assessment 27y/o male with AML admitted for neutropenic fever. h/o Obesity. Anxiety. Erosive esophagitis. Plan 1. consult infectious disease. 2. continue antibiotics. 3. give 2 units pRBC Attending Statement The exam, history, and the medical decision-making described in the above note were completed with the assistance of the mid-level provider. I reviewed and agree with the findings presented. I attest that I had a [id number] encounter with the patient on the same day, and personally performed and documented my assessment and findings in the medical record. 27 yoM with AML in CR1 s/p third cycle of HiDAC chemotherapy. Admitted with neutropenic fever, left face cellulitis. ID consulted. S/p transfusion of PRBC, platelets. Broad spectrum antibiotics. Cultures pending. Fluid replacement. Fartun Pagan Jun 21, 2017 09:18 Kyara Pedersen MD Jun 22, 2017 06:25
[2017-06-21] MEDS: diphenhydrAMINE HCL 25 MG CAP PO PRN ×2 (09:19→15:11)
[2017-06-21] MEDS ORDERED: SODIUM CHLOR 0.9% 1000 ML INJ 1,000 ML IV ONE (10:45)
--- NOTE | 2017-06-21 11:08 | HHI.PR ---
Subjective Remarks f/u; neutropenic fever in no acute distress. but febrile over night; T max 103.1. complaining of generalized pain and weakness. had some nausea earlier. blood transfusion in process. d/w the RN at the bedside. Objective Vitals Vital Signs Date Time Temp Pulse Resp B/P (MAP) Pulse Ox O2 Delivery O2 Flow Rate FiO2 06/21/17 10:15 121 22 98/49 98 06/21/17 10:15 103.1 06/21/17 08:31 101.9 129 18 129/60 (83) 98 06/21/17 07:04 114 06/21/17 06:05 114 06/21/17 06:00 100.9 06/21/17 06:00 101.5 06/21/17 05:05 111 06/21/17 04:35 102.2 112 18 155/77 (103) 99 06/21/17 04:03 108 06/21/17 03:00 109 06/21/17 02:09 107 06/21/17 01:02 114 06/21/17 00:55 101.8 110 16 111/44 (66) 97 06/21/17 00:06 118 06/20/17 23:05 116 06/20/17 22:09 110 06/20/17 21:08 101 06/20/17 20:50 102.9 111 18 115/48 (70) 99 06/20/17 20:05 106 06/20/17 19:30 110 06/20/17 19:00 100 06/20/17 18:00 96 06/20/17 18:00 98.7 06/20/17 17:00 84 06/20/17 16:00 90 06/20/17 15:43 87 06/20/17 15:00 90 06/20/17 15:00 98.4 90 18 112/50 (70) 99 06/20/17 14:25 98.4 90 18 112/50 99 06/20/17 14:03 98.8 90 20 120/58 99 06/20/17 12:00 98.8 94 22 113/55 (74) 97 06/20/17 11:59 98 18 102/53 (69) 100 I/O 06/20/17 06/20/17 06/20/17 06/21/17 06/21/1718 07:00 15:00 23:00 07:00 15:00 23:00 Intake Total 890 ml 2610 ml 100 ml Output Total 1100 ml Balance 890 ml 1510 ml 100 ml Intake Oral 960 ml IV Total 650 ml 1650 ml 100 ml Platelets 240 ml Output Urine Total 1100 ml Result Diagram: 06/21/17 0440 06/21/17 0440 Imaging Last Impressions Chest X-Ray 06/20/17 0939 Signed Impressions: Service Date/Time: Tuesday, June 20, 2017 09:49 - CONCLUSION: No acute disease. Katie Hollins MD Objective Remarks GENERAL: This is a well-nourished, well-developed patient, in no apparent distress. CARDIOVASCULAR: tachycardic with regular rhythm without murmurs, gallops, or rubs. RESPIRATORY: Clear to auscultation. Breath sounds equal bilaterally. No wheezes , rales, or rhonchi. GASTROINTESTINAL: Abdomen soft, non-tender, nondistended. Normal, active bowel sounds MUSCULOSKELETAL: Extremities without clubbing, cyanosis, or edema. NEURO: Alert & Oriented x4 to person, place, time, situation. Moves all ext x4 Medications and IVs Inpatient Medications Acetaminophen 65 ml @ 400 mls/hr ONCE ONCE IV Last administered on 06/21/17at 09:06; Start 06/21/17 at 08:45; Stop 06/21/17 at 08:54; Status DC Acetaminophen (Tylenol 650 Mg/ 20 ml Liq) 650 mg Q6H PRN PO Fever; Start at 14:00; Stop 06/21/17 at 08:46; Status DC Acetaminophen (Tylenol) 650 mg Q4H PRN PO FEVER>100.4 OR PREMEDICATION; Start 06/21/17 at 08:45 Acetaminophen/ Hydrocodone Bitart ([place] 5-325 Mg) 1 tab Q4H PRN PO PAIN SCALE 3 TO 5; Start 06/20/17 at 11:00; Stop 06/20/17 at 12:18; Status DC Acetaminophen/ Hydrocodone Bitart ([place] 10-325 Mg) 1 tab Q4H PRN PO PAIN SCALE 6 TO 10; Start 06/20/17 at 11:00; Stop 06/20/17 at 12:18; Status DC Acyclovir (Zovirax) 400 mg Q12HR PO Last administered on 06/21/17at 08:24; Start 06/20/17 at 21:00 Alprazolam (Xanax) 0.25 mg Q8H PRN PO Anxiety; Start 06/20/17 at 14:00 Cefepime HCl 2000 mg/Sodium Chloride 100 ml @ 200 mls/hr Q8H IV Last administered on 06/21/17at 10:54; Start 06/20/17 at 18:00 Clonazepam (KlonoPIN) 1 mg HS PO Last administered on 06/20/17at 22:31; Start at 21:00 Diphenhydramine HCl (Benadryl) 25 mg Q4H PRN PO SEE LABEL COMMENTS; Start 06/21 at 06:00 Fluoxetine HCl (PROzac) 20 mg DAILY PO Last administered on 06/21/17at 08:24; Start 06/21/17 at 09:00 Hydromorphone HCl (Dilaudid Pf Inj) 1 mg Q4H PRN IV PUSH Pain 7 to 10 Last administered on 06/21/17at 06:47; Start 06/20/17 at 12:15 Ketorolac Tromethamine (Toradol Inj) 30 mg ONCE ONCE IV PUSH Last administered on 06/20/17at 10:08; Start 06/20/17 at 10:00; Stop 06/20/17 at 10:01 ; Status DC Magnesium Hydroxide (Milk Of Magnesia Liq) 30 ml Q12H PRN PO Mild constipation ; Start 06/20/17 at 11:00 Metoclopramide HCl (Reglan Inj) 10 mg ONCE ONCE IV PUSH Last administered on at 09:06; Start 06/21/17 at 08:45; Stop 06/21/17 at 08:46; Status DC Miscellaneous Information SPECIFIC LAB TO BE JASKARAN... ONCE ONCE .XX ; Start 06/21 at 15:45; Stop 06/21/17 at 15:46 Morphine Sulfate (Morphine Inj) 4 mg Q4H PRN IV PUSH Breakthrough Pain; Start 06/20/17 at 12:15 Naloxone HCl (Narcan Inj) 0.4 mg UNSCH PRN IV PUSH SEE LABEL COMMENTS; Start at 11:00 Ondansetron HCl (Zofran Inj) 4 mg Q6H PRN IVP NAUSEA OR VOMITING Last administered on 06/21/17at 06:45; Start 06/20/17 at 11:00 Pharmacy Profile Note 0 ml @ 0 mls/hr UNSCH OTHER ; Start 06/20/17 at 14:15 Sodium Chloride 1,000 ml @ 999 mls/hr BOLUS ONCE IV ; Start 06/21/17 at 10:45 ; Stop 06/21/17 at 11:45; Status UNV Sodium Chloride (NS Flush) 2 ml BID IV FLUSH Last administered on 06/20/17at 21: 01; Start 06/20/17 at 21:00 Sucralfate (Carafate Liq) 1 gm ACHS PO Last administered on 06/21/17at 08:24; Start 06/20/17 at 17:00 Trimethoprim/ Sulfamethoxazole (Bactrim Ds 800-160 Mg) 1 tab MoWeFr@09 PO Last administered on 06/21/17at 08:24; Start 06/21/17 at 09:00 Vancomycin HCl 2250 mg/Sodium Chloride 522.5 ml @ 257.5 mls/ hr Q8H IV Last administered on 06/21/17at 08:23; Start 06/20/17 at 16:00 A/P Problem List: (1) Neutropenic fever ICD Code: D70.9 - Neutropenia, unspecified; R50.81 - Fever presenting with conditions classified elsewhere Status: Resolved (2) Pancytopenia ICD Code: D61.818 - Other pancytopenia (3) AML (acute myelogenous leukemia) ICD Code: C92.00 - Acute myeloblastic leukemia, not having achieved remission Status: Chronic (4) Generalized pain ICD Code: R52 - Pain, unspecified Status: Resolved (5) Sepsis ICD Code: A41.9 - Sepsis, unspecified organism Status: Resolved Assessment and Plan A/P Sepsis Neutropenic fever bacteremia with gram-negative mala continue with broad spectrum IV Antibiotics. follow the cultures ID and Oncology following. Acute myeloid leukemia Pancytopenia Thrombocytopenia Hematology/Oncology following. Follow CBC Last chemotherapy was approximately one week ago PRBC and platelet transfusion per Oncology. Hypokalemia replaced. Gen. anxiety disorder Chronic depression Xanax as needed Clonazepam at night Fluoxetine daily DVT prophylaxis SCDs Due to degree of pancytopenia avoid anticoagulation right now Discharge Planning still febrile- Oncology and ID following. not ready for discharge. Dacia Watkins MD Jun 21, 2017 11:08
--- NOTE | 2017-06-21 11:47 | MB ---
cc: JULIET VILLEGAS MD DATE OF CONSULTATION: 06/21/[address] Burch. REASON FOR CONSULTATION Neutropenic fever. Facial cellulitis. HISTORY OF PRESENT ILLNESS This is a 27-year-old white male who has AML. The patient has been undergoing consolidation chemotherapy and he received the third cycle of chemotherapy last week. The patient developed fever and noted a tiny lump at the left submental area of the chin. He states that he squeezed it but did not get any fluid and it became slightly enlarged and erythematous. That was 4 days ago. He subsequently started getting fever and chills yesterday and he also had nausea and vomiting and diarrhea. His temperature stephanie to 103.2 yesterday morning after he was evaluated and he was admitted to the hospital. His temperature continues to rise. T-max this morning is 103.2. Blood cultures taken yesterday morning has gram-negative mala in one set. Influenza test is negative. The patient is neutropenic and his white count is 0.1. He also has thrombocytopenia and anemia. His current blood pressure systolic is 90. He is laying in bed and describes diffuse body aches, and that he is still getting chills. He denies headache. Chest x-ray shows no acute disease. The patient has an Tosbul-P-Rwgk in the right chest which has been used for chemotherapy. There has been no problems with the function of the Ihaipu-W-Rrlu. He is currently receiving blood transfusion. PAST MEDICAL HISTORY 1. AML. The patient is noted to be in remission and has been undergoing consolidative chemotherapy. 2. History of erosive esophagitis. 3. Anxiety. 4. Obesity. ALLERGIES NO KNOWN DRUG ALLERGIES. MEDICATIONS 1. Bactrim. 2. Cefepime. 3. Vancomycin. 4. Prozac. 5. Acyclovir. 6. Klonopin. 7. Carafate. 8. Dilaudid p.r.n. 9. Zofran p.r.n. 10. Tylenol. SOCIAL HISTORY No tobacco. Occasional alcohol. Positive marijuana use. FAMILY HISTORY Significant for hypertension and diabetes mellitus in the patient's father and depression in the patient's mother. REVIEW OF SYSTEMS: pertinent features per HPI. CONSTITUTIONAL: Significant for fever and chills. PHYSICAL EXAM: GENERAL: No acute distress. HEENT: Head reveals an erythematous firm nodular mobile lesion at the left submental area. The extraocular movements grossly intact, pupils reactive to light. No icterus. Oropharynx moist mucosa without lesions. NECK: Supple. No adenopathy. The neck is obese. LUNGS: Clear, decreased breath sounds. HEART: Distant S1-S2 without murmurs, rubs or gallops. ABDOMEN: Obese, soft, no tenderness appreciated. RECTAL: Not performed. EXTREMITIES: No clubbing or cyanosis or edema. SKIN: No diffuse rash. NEUROLOGIC: No gross focal findings. PSYCHE: The patient calm and cooperative. LABORATORY DATA WBC 0.1, platelets 14, hemoglobin 6.7, creatinine 0.81, BUN 10, sodium 136, AST 15, ALT 33, lactic acid 1.8. Total bilirubin 2.3. Urinalysis unremarkable. IMPRESSION 1. Gram-negative sepsis in patient with fever, chills and neutropenia and also tachycardia, and now with episode of hypotension. 2. Neutropenia. 3. AML in a patient who is receiving consolidation chemotherapy after going into remission. 4. Thrombocytopenia and anemia. 5. Cellulitis of the left face. RECOMMENDATIONS 1. Continue cefepime. 2. Continue vancomycin. 3. Continue acyclovir. 4. Hold off on the Bactrim prophylaxis since this could further depress the patient's blood counts. 5. The source of the bacteremia is not clear currently. The patient has an Iensbk-M-Efzi and could easily have acquired gram-negative sepsis via the [id number]-[id number]. However, it is possible it could have entered through another source. His total bilirubin is slightly elevated but he has no abdominal pain to suggest gallbladder source. 6. The patient has left face cellulitis which probably started as an ingrown hair. I would expect gram positive organism. We will monitor this cellulitis as well. Because we have positive blood cultures I think we can hold off on additional blood culture until tomorrow, if he has high temperature, at that time we can repeat the blood cultures then. Thank you for this consultation. I will monitor the patient's progress with you and make further recommendations upon followup if necessary. Juliet Villegas MD FD/ELIJAH /10:58 AM /11:19 AM MTDD
[2017-06-21] MEDS ORDERED: PHARMACY ORDERED LAB ONE (15:45)
[2017-06-21] MEDS: clonazePAM 1 MG TAB PO SCH (21:15)
[2017-06-22] VITALS (24 sets, daily range): BP systolic 104–169; BP diastolic 11–117; PULSE 64–128; RESP 18–24; TEMP 98.2–102.1; O2SAT 91–99
[2017-06-22] MEDS: MORPHINE SULFATE 4 MG/ML INJ IV PUSH PRN ×3 (00:25→09:42)
[2017-06-22] MEDS: VANCOMYCIN INJ 2,250 MG in SODIUM CHLORID 0.9% 500 ML INJ 500 ML IV SCH ×3 (00:26→16:52)
[2017-06-22] MEDS: HYDROmorphone HCL PF 2 MG/ML VIAL IV PUSH PRN ×5 (02:17→21:02)
[2017-06-22] MEDS: CEFEPIME INJ 2,000 MG in SODIUM CHLORIDE 0.9% INJ 100 ML IV SCH ×3 (03:35→18:34)
[2017-06-22] MEDS: SODIUM CHLOR 0.9% 1000 ML INJ 1,000 ML IV SCH ×3 (04:51→22:51)
[2017-06-22 06:18] LABS: HEMATOCRIT 21.1 % (39.0-51.0); HEMOGLOBIN 7.4 GM/DL (13.0-17.0); MEAN CELL VOLUME 84.5 FL (80.0-100.0); MEAN CORPUSCULAR HEMOGLOBIN 29.5 PG (27.0-34.0); MEAN PLATELET VOLUME 9.7 FL (7.0-11.0); RED CELL DISTRIBUTION WIDTH 16.5 % (11.6-17.2); WHITE BLOOD COUNT 0.1 TH/MM3 (4.0-11.0)
[2017-06-22 06:24] LABS: PLATELET COUNT 7 TH/MM3 (150-450)
[2017-06-22 06:36] LABS: ALBUMIN 2.4 GM/DL (3.4-5.0); BICARBONATE 26.6 MEQ/L (21.0-32.0); CALCIUM 8.6 MG/DL (8.5-10.1); CREATININE 0.93 MG/DL (0.60-1.30); DIRECT BILIRUBIN ADULT 0.7 MG/DL (0.0-0.2)
[2017-06-22 06:39] LABS: INDIRECT BILIRUBIN 1.6 MG/DL (0.0-0.8); TOTAL BILIRUBIN ADULT 2.3 MG/DL (0.2-1.0); TOTAL PROTEIN 6.4 GM/DL (6.4-8.2)
[2017-06-22] MEDS: ONDANSETRON HCL 4 MG/2 ML VIAL IVP PRN ×3 (06:39→20:54)
[2017-06-22] MEDS ORDERED: SODIUM CHLOR 0.9% 250 ML INJ 250 ML IV ONE (08:15)
[2017-06-22 08:24] LABS: LYMPHOCYTES 100 % (9-44)
[2017-06-22] MEDS: ACYCLOVIR 200 MG CAP PO SCH ×2 (09:00→20:54)
[2017-06-22] MEDS: FLUoxetine HCL 20 MG CAP PO SCH (09:02)
[2017-06-22] MEDS: ACETAMINOPHEN 325 MG TAB PO PRN ×2 (09:02→13:52)
[2017-06-22] MEDS: diphenhydrAMINE HCL 25 MG CAP PO PRN ×2 (09:02→13:52)
[2017-06-22] MEDS: SUCRALFATE 1 GM/10 ML CUP PO SCH ×4 (09:03→20:54)
[2017-06-22] MEDS: SODIUM CHLORIDE 0.9% FLUSH 10 ML FLUSH IV FLUSH SCH ×2 (09:42→20:56)
[2017-06-22] MEDS ORDERED: CLINDAMYCIN 900 MG/NS PREMIX 50 ML IV SCH (09:45)
--- NOTE | 2017-06-22 09:52 | PD.ONC.PN ---
Subjective Subjective Remarks Tmax 102.1 this AM. Patient continues to have nausea, body aches all over. He scratched himself in his sleep and had a small abrasion on the right cheek. Feeling fatigued. Objective Data Date Time Temp Pulse Resp B/P (MAP) Pulse Ox O2 Delivery O2 Flow Rate FiO2 06/22/17 09:01 102.1 121 20 153/117 (129) 06/22/17 04:41 100.0 128 18 132/59 (83) 95 06/22/17 04:00 128 06/22/17 02:18 99.1 06/22/17 00:23 100.0 119 18 149/56 (87) 91 06/22/17 00:05 121 06/21/17 21:15 100.0 116 20 126/51 (76) 93 06/21/17 20:09 119 06/21/17 17:33 101.0 114 22 114/52 99 06/21/17 15:15 100.4 115 22 124/51 97 06/21/17 15:02 101.7 121 20 115/43 98 06/21/17 12:35 100.6 135 20 153/47 (82) 100 06/21/17 12:00 113 06/21/17 10:59 100.8 125 22 121/54 95 06/21/17 10:25 103.2 124 24 103/35 98 06/21/17 10:15 121 22 98/49 98 06/21/17 10:15 103.1 06/22/17 06/22/17 06/22/17 07:00 15:00 23:00 Intake Total 1122.5 ml Output Total 900 ml Balance 222.5 ml Result Diagram: 06/22/17 0440 06/22/17 0440 Laboratory Results Laboratory Tests Test 06/21/17 16:35 06/22/17 04:40 Vancomycin Level Trough 15.9 MCG/ML White Blood Count 0.1 TH/MM3 Red Blood Count 2.50 MIL/MM3 Hemoglobin 7.4 GM/DL Hematocrit 21.1 % Mean Corpuscular Volume 84.5 FL Mean Corpuscular Hemoglobin 29.5 PG Mean Corpuscular Hemoglobin Concent 35.0 % Red Cell Distribution Width 16.5 % Platelet Count 7 TH/MM3 Mean Platelet Volume 9.7 FL CBC Comment AUTO DIFF Differential Total Cells Counted 10 Lymphocytes % 100 % Neutrophils # (Manual) 0.0 TH/MM3 Differential Comment FINAL DIFF MANUAL Platelet Estimate RARE Platelet Morphology Comment NORMAL Blood Urea Nitrogen 10 MG/DL Creatinine 0.93 MG/DL Random Glucose 115 MG/DL Total Protein 6.4 GM/DL Albumin 2.4 GM/DL Calcium Level 8.6 MG/DL Alkaline Phosphatase 64 U/L Aspartate Amino Transf (AST/SGOT) 9 U/L Alanine Aminotransferase (ALT/SGPT) 28 U/L Total Bilirubin 2.3 MG/DL Direct Bilirubin 0.7 MG/DL Sodium Level 136 MEQ/L Potassium Level 3.4 MEQ/L Chloride Level 103 MEQ/L Carbon Dioxide Level 26.6 MEQ/L Anion Gap 6 MEQ/L Estimat Glomerular Filtration Rate 99 ML/MIN Indirect Bilirubin 1.6 MG/DL Culture Results Microbiology Date/Time Source Procedure Growth Status 06/20/17 09:50 Blood Peripheral Aerobic Blood Culture - Preliminary NO GROWTH IN 1 DAY Resulted 06/20/17 09:50 Blood Peripheral Anaerobic Blood Culture - Preliminary NO GROWTH IN 1 DAY Resulted 06/20/17 09:43 Blood Peripheral Aerobic Blood Culture - Preliminary Enterobacter Species Resulted 06/20/17 09:43 Anaerobic Blood Culture - Preliminary Gram Negative Iraj Resulted 06/20/17 09:55 Nasal Aspirate Influenza Types A,B Antigen (SUNDAR) - Final NEGATIVE FOR FLU A AND B ANTIGEN.... Complete Administered Medications Medications (Trade) Dose Ordered Sig/Emma Route PRN Reason Start Time Stop Time Status Last Admin Dose Admin Diphenhydramine HCl (Benadryl) 25 mg UNSCH X1 PRN PO ITCHING 06/20/17 11:00 06/23/17 10:59 06/21/17 15:11 Sodium Chloride 1,000 ml @ 100 mls/hr Q10H IV 06/20/17 10:51 06/22/17 04:51 Sodium Chloride (NS Flush) 2 ml UNSCH PRN IV FLUSH FLUSH AFTER USING IV ACCESS 06/20/17 11:00 06/21/17 04:42 Sodium Chloride (NS Flush) 2 ml BID IV FLUSH 06/20/17 21:00 06/20/17 21:01 Ondansetron HCl (Zofran Inj) 4 mg Q6H PRN IVP NAUSEA OR VOMITING 06/20/17 11:00 06/22/17 06:39 Cefepime HCl 2000 mg/Sodium Chloride 100 ml @ 200 mls/hr Q8H IV 06/20/17 18:00 06/22/17 03:35 Hydromorphone HCl (Dilaudid Pf Inj) 1 mg Q4H PRN IV PUSH Pain 7 to 10 06/20/17 12:15 06/22/17 06:39 Morphine Sulfate (Morphine Inj) 4 mg Q4H PRN IV PUSH Pain 3 to 6 06/20/17 12:15 06/22/17 04:50 Acyclovir (Zovirax) 400 mg Q12HR PO 06/20/17 21:00 06/21/17 21:15 Clonazepam (KlonoPIN) 1 mg HS PO 06/20/17 21:00 06/21/17 21:15 Fluoxetine HCl (PROzac) 20 mg DAILY PO 06/21/17 09:00 06/22/17 09:02 Sucralfate (Carafate Liq) 1 gm ACHS PO 06/20/17 17:00 06/22/17 09:03 Trimethoprim/ Sulfamethoxazole (Bactrim Ds 800-160 Mg) 1 tab MoWeFr@09 PO 06/21/17 09:00 06/21/17 08:24 Vancomycin HCl 2250 mg/Sodium Chloride 522.5 ml @ 257.5 mls/ hr Q8H IV 06/20/17 16:00 06/22/17 09:03 Acetaminophen (Tylenol) 650 mg Q4H PRN PO SEE LABEL COMMENTS 06/21/17 06:00 06/21/17 12:48 Diphenhydramine HCl (Benadryl) 25 mg Q4H PRN PO SEE LABEL COMMENTS 06/21/17 06:00 06/22/17 09:02 Acetaminophen (Tylenol) 650 mg Q4H PRN PO FEVER>100.4 OR PREMEDICATION 06/21/17 08:45 06/22/17 09:02 Objective Remarks GENERAL: chronically ill appearing male, lying supine in bed, small amount of dried blood noted on bedsheets bedside him. SKIN: Warm and dry. cellulitis, left check, appears to have worsened since yesterday, measured as 7x6cm. scattered petechiae noted. small abrasion noted on right face. HEAD: Normocephalic. EYES: No injection or drainage. NECK: Supple, trachea midline. CARDIOVASCULAR: Regular rate and rhythm RESPIRATORY: Breath sounds equal bilaterally. No accessory muscle use. GASTROINTESTINAL: Abdomen soft, non-tender, nondistended. EXTREMITIES: No cyanosis NEUROLOGICAL: awake and alert, normal speech. moving all extremities. Assessment/Plan Problem List: (1) Neutropenic sepsis ICD Codes: A41.9 - Sepsis, unspecified organism; D70.9 - Neutropenia, unspecified Status: Resolved Plan: --on Vanco + Cefepime + add cleocin 900mg IV q 6 --BC + GNR --ID following. --Influenza type A and B rapid test negative. U/A negative --CXR no infection. Assessment 27y/o male with AML admitted for neutropenic fever. h/o Obesity. Anxiety. Erosive esophagitis. Plan 1.give 1 unit pRBC + 1 unit platelets 2. add cleocin 900mg IV q 6 (d/w Dr. Villegas, appreciate ID assistance.) 3. continue IVF, pain management and anti-emetic therapy Attending Statement The exam, history, and the medical decision-making described in the above note were completed with the assistance of the mid-level provider. I reviewed and agree with the findings presented. I attest that I had a [id number] encounter with the patient on the same day, and personally performed and documented my assessment and findings in the medical record Febrile neutropenia with gram negative rods bacteremia antibiotics coverage expanded with antifungal stop bactrim PRBC and PLT transfusion today Keep PLT > 10 pain control and anti-emetics minimize IV pain pain meds--on my exam appeared to be over-sedated d/w rn o/n events reviewed Fartun Pagan Jun 22, 2017 09:52 Joey Santoyo MD Jun 22, 2017 23:00
--- NOTE | 2017-06-22 10:11 | HHI.PR ---
Subjective Remarks in no acute distress. still febrile; T max 102.1. has generalized pain and weakness. Objective Vitals Vital Signs Date Time Temp Pulse Resp B/P (MAP) Pulse Ox O2 Delivery O2 Flow Rate FiO2 06/22/17 09:55 102.0 114 20 145/64 99 06/22/17 09:49 102.1 119 18 153/11 99 06/22/17 09:01 102.1 121 20 153/117 (129) 06/22/17 04:41 100.0 128 18 132/59 (83) 95 06/22/17 04:00 128 06/22/17 02:18 99.1 06/22/17 00:23 100.0 119 18 149/56 (87) 91 06/22/17 00:05 121 06/21/17 21:15 100.0 116 20 126/51 (76) 93 06/21/17 20:09 119 06/21/17 17:33 101.0 114 22 114/52 99 06/21/17 15:15 100.4 115 22 124/51 97 06/21/17 15:02 101.7 121 20 115/43 98 06/21/17 12:35 100.6 135 20 153/47 (82) 100 06/21/17 12:00 113 06/21/17 10:59 100.8 125 22 121/54 95 06/21/17 10:25 103.2 124 24 103/35 98 06/21/17 10:15 121 22 98/49 98 06/21/17 10:15 103.1 I/O 06/21/17 06/21/17 06/21/17 06/22/17 06/22/17 06/22/17 07:00 15:00 23:00 07:00 15:00 23:00 Intake Total 2610 ml 1125 ml 2883 ml 1122.5 ml Output Total 1100 ml 900 ml 900 ml Balance 1510 ml 1125 ml 1983 ml 222.5 ml Intake Oral 960 ml 758 ml 600 ml IV Total 1650 ml 725 ml 1725 ml 522.5 ml Packed Cells 400 ml 400 ml Output Urine Total 1100 ml 900 ml 900 ml # Bowel Movements 1 Result Diagram: 06/22/1743906/22/17439 Imaging Last Impressions Chest X-Ray 06/20/1739 Signed Impressions: Service Date/Time: Tuesday, June 20, 2017 09:49 - CONCLUSION: No acute disease. Katie Hollins MD Objective Remarks GENERAL: This is a well-nourished, well-developed patient, in no apparent distress. CARDIOVASCULAR: tachycardic with regular rhythm without murmurs, gallops, or rubs. RESPIRATORY: Clear to auscultation. Breath sounds equal bilaterally. No wheezes , rales, or rhonchi. GASTROINTESTINAL: Abdomen soft, non-tender, nondistended. Normal, active bowel sounds MUSCULOSKELETAL: Extremities without clubbing, cyanosis, or edema. NEURO: Alert & Oriented x4 to person, place, time, situation. Moves all ext x4 Medications and IVs Inpatient Medications Acetaminophen 65 ml @ 400 mls/hr ONCE ONCE IV Last administered on 06/21/17at 09:06; Start 06/21/17 at 08:45; Stop 06/21/17 at 08:54; Status DC Acetaminophen (Tylenol 650 Mg/ 20 ml Liq) 650 mg Q6H PRN PO Fever; Start at 14:00; Stop 06/21/17 at 08:46; Status DC Acetaminophen (Tylenol) 650 mg Q4H PRN PO FEVER>100.4 OR PREMEDICATION Last administered on 06/22/17at 09:02; Start 06/21/17 at 08:45 Acetaminophen/ Hydrocodone Bitart ([place] 5-325 Mg) 1 tab Q4H PRN PO PAIN SCALE 3 TO 5; Start 06/20/17 at 11:00; Stop 06/20/17 at 12:18; Status DC Acetaminophen/ Hydrocodone Bitart ([place] 10-325 Mg) 1 tab Q4H PRN PO PAIN SCALE 6 TO 10; Start 06/20/17 at 11:00; Stop 06/20/17 at 12:18; Status DC Acyclovir (Zovirax) 400 mg Q12HR PO Last administered on 06/21/17at 21:15; Start 06/20/17 at 21:00 Alprazolam (Xanax) 0.25 mg Q8H PRN PO Anxiety; Start 06/20/17 at 14:00 Cefepime HCl 2000 mg/Sodium Chloride 100 ml @ 200 mls/hr Q8H IV Last administered on 06/22/17at 03:35; Start 06/20/17 at 18:00 Clindamycin/ Sodium Chloride 50 ml @ 100 mls/hr Q6H IV ; Start 06/22/17 at 09: 45; Status UNV Clonazepam (KlonoPIN) 1 mg HS PO Last administered on 06/21/17at 21:15; Start at 21:00 Diphenhydramine HCl (Benadryl) 25 mg Q4H PRN PO SEE LABEL COMMENTS Last administered on 06/22/17at 09:02; Start 06/21/17 at 06:00 Fluoxetine HCl (PROzac) 20 mg DAILY PO Last administered on 06/22/17 09:02; Start 06/21/17 at 09:00 Hydromorphone HCl (Dilaudid Pf Inj) 1 mg Q4H PRN IV PUSH Pain 7 to 10 Last administered on 06/22/17at 06:39; Start 06/20/17 at 12:15 Ketorolac Tromethamine (Toradol Inj) 30 mg ONCE ONCE IV PUSH Last administered on 06/20/17at 10:08; Start 06/20/17 at 10:00; Stop 06/20/17 at 10:01 ; Status DC Magnesium Hydroxide (Milk Of Magnesia Liq) 30 ml Q12H PRN PO Mild constipation ; Start 06/20/17 at 11:00 Metoclopramide HCl (Reglan Inj) 10 mg ONCE ONCE IV PUSH Last administered on at 09:06; Start 06/21/17 at 08:45; Stop 06/21/17 at 08:46; Status DC Miscellaneous Information SPECIFIC LAB TO BE DRAWN: VANCO TROUGH DATE TO BE DR... ONCE ONCE .XX ; Start 06/22/17 at 15:45; Stop 06/22/17 at 15:46 Morphine Sulfate (Morphine Inj) 4 mg Q4H PRN IV PUSH Breakthrough Pain Last administered on 06/22/17at 09:42; Start 06/20/17 at 12:15 Naloxone HCl (Narcan Inj) 0.4 mg UNSCH PRN IV PUSH SEE LABEL COMMENTS; Start at 11:00 Ondansetron HCl (Zofran Inj) 4 mg Q6H PRN IVP NAUSEA OR VOMITING Last administered on 06/22/17at 06:39; Start 06/20/17 at 11:00 Pharmacy Profile Note 0 ml @ 0 mls/hr UNSCH OTHER ; Start 06/20/17 at 14:15 Sodium Chloride 250 ml @ 15 mls/hr ONCE ONCE IV ; Start 06/22/17 at 08:15; Stop 06/23/17 at 00:54 Sodium Chloride (NS Flush) 2 ml BID IV FLUSH Last administered on 06/22/17at 09: 42; Start 06/20/17 at 21:00 Sucralfate (Carafate Liq) 1 gm ACHS PO Last administered on 06/22/17at 09:03; Start 06/20/17 at 17:00 Trimethoprim/ Sulfamethoxazole (Bactrim Ds 800-160 Mg) 1 tab MoWeFr@09 PO Last administered on 06/21/17at 08:24; Start 06/21/17 at 09:00; Stop 06/22/17 at 09:44 ; Status DC Vancomycin HCl 2250 mg/Sodium Chloride 522.5 ml @ 257.5 mls/ hr Q8H IV Last administered on 06/22/17at 09:03; Start 06/20/17 at 16:00 A/P Problem List: (1) Neutropenic fever ICD Code: D70.9 - Neutropenia, unspecified; R50.81 - Fever presenting with conditions classified elsewhere Status: Resolved (2) Pancytopenia ICD Code: D61.818 - Other pancytopenia (3) AML (acute myelogenous leukemia) ICD Code: C92.00 - Acute myeloblastic leukemia, not having achieved remission Status: Chronic (4) Generalized pain ICD Code: R52 - Pain, unspecified Status: Resolved (5) Sepsis ICD Code: A41.9 - Sepsis, unspecified organism Status: Resolved Assessment and Plan A/P Sepsis Neutropenic fever bacteremia with gram-negative mala continue with broad spectrum IV Antibiotics. follow the cultures ID and Oncology following. cellulitis- left face continue antibiotics and follow the clinical response. Acute myeloid leukemia Pancytopenia Thrombocytopenia Hematology/Oncology following. Follow CBC Last chemotherapy was approximately one week ago PRBC and platelet transfusion per Oncology. Hypokalemia replaced. Gen. anxiety disorder Chronic depression Xanax as needed Clonazepam at night Fluoxetine daily DVT prophylaxis SCDs Due to degree of pancytopenia avoid anticoagulation right now Discharge Planning still febrile- Oncology and ID following. not ready for discharge. Dacia Watkins MD Jun 22, 2017 10:10
--- NOTE | 2017-06-22 11:42 | HHI.IDPN ---
Note Infectious Disease Note Patient has fever. Also continues to have chills. Denies SANTIAGO. Has pain at the left submandibular area of swelling. Has a tiny black spot forming a scab at the center of the erythema at the face. Temp still elevated. No nausea. 27-year-old white male who has AML. The patient has been undergoing consolidation chemotherapy and he received the third cycle of chemotherapy last week. The patient developed fever and noted a tiny lump at the left submandible area of the chin. He states that he squeezed it but did not get any fluid and it became slightly enlarged and erythematous. That was 4 days ago. He subsequently started getting fever and chills yesterday and he also had nausea and vomiting and diarrhea. His temperature stephanie to 103.2 yesterday morning after he was evaluated and he was admitted to the hospital. The patient has an [id number] in the right chest which has been used for chemotherapy. There has been no problems with the function of the [id number]. PAST MEDICAL HISTORY 1. AML. The patient is noted to be in remission and has been undergoing consolidative chemotherapy. 2. History of erosive esophagitis. 3. Anxiety. 4. Obesity. ALLERGIES NO KNOWN DRUG ALLERGIES. MEDICATIONS 1. Bactrim. 2. Cefepime. 3. Vancomycin. 4. Acyclovir. Current Medications Medications (Trade) Dose Ordered Sig/Emma Route PRN Reason Start Time Stop Time Status Last Admin Dose Admin Diphenhydramine HCl (Benadryl) 25 mg UNSCH X1 PRN PO ITCHING 06/20/17 11:00 06/23/17 10:59 06/21/17 15:11 Sodium Chloride 1,000 ml @ 100 mls/hr Q10H IV 06/20/17 10:51 06/22/17 04:51 Sodium Chloride (NS Flush) 2 ml UNSCH PRN IV FLUSH FLUSH AFTER USING IV ACCESS 06/20/17 11:00 06/21/17 04:42 Sodium Chloride (NS Flush) 2 ml BID IV FLUSH 06/20/17 21:00 06/22/17 09:42 Ondansetron HCl (Zofran Inj) 4 mg Q6H PRN IVP NAUSEA OR VOMITING 06/20/17 11:00 06/22/17 06:39 Naloxone HCl (Narcan Inj) 0.4 mg UNSCH PRN IV PUSH SEE LABEL COMMENTS 06/20/17 11:00 Magnesium Hydroxide (Milk Of Magnesia Liq) 30 ml Q12H PRN PO Mild constipation 06/20/17 11:00 Cefepime HCl 2000 mg/Sodium Chloride 100 ml @ 200 mls/hr Q8H IV 06/20/17 18:00 06/22/17 03:35 Hydromorphone HCl (Dilaudid Pf Inj) 1 mg Q4H PRN IV PUSH Pain 7 to 10 06/20/17 12:15 06/22/17 06:39 Morphine Sulfate (Morphine Inj) 4 mg Q4H PRN IV PUSH Pain 3 to 6 06/20/17 12:15 06/22/17 04:50 Morphine Sulfate (Morphine Inj) 4 mg Q4H PRN IV PUSH Breakthrough Pain 06/20/17 12:15 06/22/17 09:42 Acyclovir (Zovirax) 400 mg Q12HR PO 06/20/17 21:00 06/21/17 21:15 Clonazepam (KlonoPIN) 1 mg HS PO 06/20/17 21:00 06/21/17 21:15 Fluoxetine HCl (PROzac) 20 mg DAILY PO 06/21/17 09:00 06/22/17 09:02 Sucralfate (Carafate Liq) 1 gm ACHS PO 06/20/17 17:00 06/22/17 09:03 Alprazolam (Xanax) 0.25 mg Q8H PRN PO Anxiety 06/20/17 14:00 Pharmacy Profile Note 0 ml @ 0 mls/hr UNSCH OTHER 06/20/17 14:15 Vancomycin HCl 2250 mg/Sodium Chloride 522.5 ml @ 257.5 mls/ hr Q8H IV 06/20/17 16:00 06/22/17 09:03 Acetaminophen (Tylenol) 650 mg Q4H PRN PO SEE LABEL COMMENTS 06/21/17 06:00 06/21/17 12:48 Diphenhydramine HCl (Benadryl) 25 mg Q4H PRN PO SEE LABEL COMMENTS 06/21/17 06:00 06/22/17 09:02 Acetaminophen (Tylenol) 650 mg Q4H PRN PO FEVER>100.4 OR PREMEDICATION 06/21/17 08:45 06/22/17 09:02 Miscellaneous Information SPECIFIC LAB TO BE DRAWN: VANCO TROUGH DATE TO BE DRDexter.. ONCE ONCE .XX 06/22/17 15:45 06/22/17 15:46 Sodium Chloride 250 ml @ 15 mls/hr ONCE ONCE IV 06/22/17 08:15 06/23/17 00:54 Clindamycin/ Sodium Chloride 50 ml @ 100 mls/hr Q6H IV 06/22/17 09:45 UNV OBJECTIVE: Vital Signs Date Time Temp Pulse Resp B/P (MAP) Pulse Ox O2 Delivery O2 Flow Rate FiO2 06/22/17 09:55 102.0 114 20 145/64 99 06/22/17 09:49 102.1 119 18 153/11 99 06/22/17 09:01 102.1 121 20 153/117 (129) 06/22/17 08:00 121 06/22/17 04:41 100.0 128 18 132/59 (83) 95 06/22/17 04:00 128 06/22/17 02:18 99.1 06/22/17 00:23 100.0 119 18 149/56 (87) 91 06/22/17 00:05 121 06/21/17 21:15 100.0 116 20 126/51 (76) 93 06/21/17 20:09 119 06/21/17 17:33 101.0 114 22 114/52 99 06/21/17 15:15 100.4 115 22 124/51 97 06/21/17 15:02 101.7 121 20 115/43 98 06/21/17 12:35 100.6 135 20 153/47 (82) 100 06/21/17 12:00 113 Laboratory Tests Test 06/21/17 04:40 06/22/17 04:40 White Blood Count 0.1 TH/MM3 0.1 TH/MM3 Red Blood Count 2.21 MIL/MM3 2.50 MIL/MM3 Hemoglobin 6.7 GM/DL 7.4 GM/DL Hematocrit 19.1 % 21.1 % Mean Corpuscular Volume 86.8 FL 84.5 FL Mean Corpuscular Hemoglobin 30.5 PG 29.5 PG Mean Corpuscular Hemoglobin Concent 35.2 % 35.0 % Red Cell Distribution Width 16.8 % 16.5 % Platelet Count 14 TH/MM3 7 TH/MM3 Mean Platelet Volume 7.9 FL 9.7 FL CBC Comment AUTO DIFF AUTO DIFF Differential Total Cells Counted 10 10 Lymphocytes % 100 % 100 % Neutrophils # (Manual) 0.0 TH/MM3 0.0 TH/MM3 Differential Comment FINAL DIFF MANUAL FINAL DIFF MANUAL Platelet Estimate RARE RARE Platelet Morphology Comment NORMAL NORMAL Laboratory Tests Test 06/21/17 04:40 06/22/17 04:40 Blood Urea Nitrogen 10 MG/DL 10 MG/DL Creatinine 0.81 MG/DL 0.93 MG/DL Random Glucose 104 MG/DL 115 MG/DL Total Protein 6.3 GM/DL 6.4 GM/DL Albumin 2.6 GM/DL 2.4 GM/DL Calcium Level 8.3 MG/DL 8.6 MG/DL Alkaline Phosphatase 65 U/L 64 U/L Aspartate Amino Transf (AST/SGOT) 15 U/L 9 U/L Alanine Aminotransferase (ALT/SGPT) 33 U/L 28 U/L Total Bilirubin 2.3 MG/DL 2.3 MG/DL Sodium Level 136 MEQ/L 136 MEQ/L Potassium Level 3.6 MEQ/L 3.4 MEQ/L Chloride Level 102 MEQ/L 103 MEQ/L Carbon Dioxide Level 27.5 MEQ/L 26.6 MEQ/L Anion Gap 7 MEQ/L 6 MEQ/L Estimat Glomerular Filtration Rate 116 ML/MIN 99 ML/MIN Direct Bilirubin 0.7 MG/DL Indirect Bilirubin 1.6 MG/DL Microbiology Date/Time Source Procedure Growth Status 06/20/17 09:50 Blood Peripheral Aerobic Blood Culture - Preliminary NO GROWTH IN 2 DAYS Resulted 06/20/17 09:50 Blood Peripheral Anaerobic Blood Culture - Preliminary NO GROWTH IN 2 DAYS Resulted 06/20/17 09:43 Blood Peripheral Aerobic Blood Culture - Preliminary Enterobacter Species Resulted 06/20/17 09:43 Anaerobic Blood Culture - Preliminary Gram Negative Iraj Resulted 06/20/17 09:55 Nasal Aspirate Influenza Types A,B Antigen (SUNDAR) - Final NEGATIVE FOR FLU A AND B ANTIGEN.... Complete GENERAL: No acute distress. HEENT: Erythematous firm nodular mobile lesion at the left submental area is slightly larger but consistency is same and does not feel indurated. The extraocular movements grossly intact, pupils reactive to light. No icterus. Oropharynx moist mucosa without lesions. NECK: Supple. No adenopathy. The neck is obese. LUNGS: Clear, decreased breath sounds. HEART: Distant S1-S2 without murmurs, rubs or gallops. ABDOMEN: Obese, soft, no tenderness appreciated. RECTAL: Not performed. EXTREMITIES: No clubbing or cyanosis or edema. SKIN: No diffuse rash. NEUROLOGIC: No gross focal findings. PSYCHE: Pleasant, calm and cooperative. IMPRESSION 1. Gram-negative sepsis in patient with fever, chills and neutropenia and also tachycardia, and hypotension. Continued fever. Blood culture growing Enterobacter prelim. 2. Neutropenia. 3. Cellulitis of the left face. 4. AML in a patient who is post consolidation chemotherapy after going into remission. 5. Thrombocytopenia and anemia. RECOMMENDATIONS 1. Continue cefepime. 2. Continue vancomycin. 3. Continue acyclovir. 4. Stop Bactrim prophylaxis since this could further depress the patient's blood counts. 5. Add Clindamycin. Dose change to 600mg IV Q8H. 6. Start Micafungin. 7. Repeat the blood cultures. Monitor the face and if any drainage occurs, send culture. If no improvement consider ultrasound or MRI to see if submandibular gland is involved. Tre Villegas MD Jun 22, 2017 11:42
[2017-06-22] MEDS ORDERED: PHARMACY ORDERED LAB ONE (15:45)
[2017-06-22] MEDS: MICAFUNGIN INJ 150 MG in SODIUM CHLORIDE 0.9% INJ 100 ML IV SCH (16:46)
[2017-06-22] MEDS: CLINDAMYCIN 600 MG/NS PREMIX 50 ML IV SCH (19:20)
[2017-06-22] MEDS: clonazePAM 1 MG TAB PO SCH (21:00)
[2017-06-23] VITALS (25 sets, daily range): BP systolic 123–175; BP diastolic 53–85; PULSE 82–132; RESP 16–18; TEMP 98.2–101.7; O2SAT 90–100
[2017-06-23] MEDS: VANCOMYCIN INJ 2,250 MG in SODIUM CHLORID 0.9% 500 ML INJ 500 ML IV SCH ×2 (00:42→09:33)
[2017-06-23] MEDS: ONDANSETRON HCL 4 MG/2 ML VIAL IVP PRN ×4 (01:00→20:44)
[2017-06-23] MEDS: HYDROmorphone HCL PF 2 MG/ML VIAL IV PUSH PRN ×6 (01:01→23:06)
[2017-06-23] MEDS: CLINDAMYCIN 600 MG/NS PREMIX 50 ML IV SCH ×3 (03:49→20:46)
[2017-06-23] MEDS ORDERED: PROCHLORPERAZINE INJ 10 MG/2 ML VIAL IV PUSH ONE (04:00)
[2017-06-23] MEDS: CEFEPIME INJ 2,000 MG in SODIUM CHLORIDE 0.9% INJ 100 ML IV SCH ×3 (04:52→19:43)
[2017-06-23] MEDS: ACETAMINOPHEN 325 MG TAB PO PRN ×2 (05:25→14:08)
[2017-06-23 05:54] LABS: MEAN CELL VOLUME 84.4 FL (80.0-100.0); MEAN CORPUSCULAR HEMOGLOBIN 30.1 PG (27.0-34.0); MEAN CORPUSCULAR HGB CONC 35.7 % (32.0-36.0); MEAN PLATELET VOLUME 8.2 FL (7.0-11.0); RED BLOOD COUNT 2.27 MIL/MM3 (4.50-5.90); RED CELL DISTRIBUTION WIDTH 16.2 % (11.6-17.2); WHITE BLOOD COUNT 0.1 TH/MM3 (4.0-11.0)
[2017-06-23 05:59] LABS: HEMATOCRIT 19.1 % (39.0-51.0); HEMOGLOBIN 6.8 GM/DL (13.0-17.0)
[2017-06-23 06:00] LABS: PLATELET COUNT 12 TH/MM3 (150-450)
[2017-06-23 06:15] LABS: ALBUMIN 2.1 GM/DL (3.4-5.0); BICARBONATE 26.9 MEQ/L (21.0-32.0); CALCIUM 8.5 MG/DL (8.5-10.1); CREATININE 0.86 MG/DL (0.60-1.30); DIRECT BILIRUBIN ADULT 0.7 MG/DL (0.0-0.2)
[2017-06-23 06:20] LABS: INDIRECT BILIRUBIN 0.9 MG/DL (0.0-0.8); TOTAL BILIRUBIN ADULT 1.6 MG/DL (0.2-1.0)
[2017-06-23 07:52] LABS: LYMPHOCYTES 90 % (9-44); MONOCYTES 10 % (0-8)
[2017-06-23] MEDS: SODIUM CHLORIDE 0.9% FLUSH 10 ML FLUSH IV FLUSH SCH ×2 (09:00→19:45)
[2017-06-23] MEDS: FLUoxetine HCL 20 MG CAP PO SCH (09:32)
[2017-06-23] MEDS: SUCRALFATE 1 GM/10 ML CUP PO SCH ×4 (09:32→19:45)
[2017-06-23] MEDS: ACYCLOVIR 200 MG CAP PO SCH ×2 (09:32→19:46)
--- NOTE | 2017-06-23 10:35 | PD.ONC.PN ---
Subjective Subjective Remarks Tmax 101.7 last night Patient reports he has generalized body aches He states he continues to vomit approximately 2-3 times a day Still with painful lesion to left cheek that he reports makes it difficult to swallow Objective Data Date Time Temp Pulse Resp B/P (MAP) Pulse Ox O2 Delivery O2 Flow Rate FiO2 06/23/17 06:00 112 06/23/17 05:00 106 06/23/17 04:57 101.7 108 18 163/85 (111) 92 06/23/17 04:09 99 06/23/17 03:00 100 06/23/17 02:00 102 06/23/17 01:00 132 06/23/17 00:47 98.3 102 18 173/83 (113) 97 06/23/17 00:05 97 06/22/17 23:00 100 06/22/17 22:00 96 06/22/17 21:09 98.2 101 18 126/74 (91) 91 06/22/17 21:00 96 06/22/17 20:01 87 06/22/17 19:00 72 06/22/17 18:00 68 06/22/17 17:09 100.1 105 18 136/55 (82) 99 06/22/17 17:00 64 06/22/17 16:00 111 06/22/17 15:17 100.0 105 24 169/98 (121) 96 06/22/17 15:14 100.0 111 24 169/98 96 06/22/17 12:24 102.0 103 18 147/72 95 06/22/17 12:06 99.4 106 20 104/57 94 06/22/17 12:00 114 06/23/17 06/23/17 06/23/17 07:00 15:00 23:00 Intake Total 972 ml Output Total 650 ml Balance 322 ml Result Diagram: 06/23/1744306/23/17 0444 Laboratory Results Laboratory Tests Test 06/22/17 14:56 06/23/17 04:44 Vancomycin Level Trough 20.4 MCG/ML White Blood Count 0.1 TH/MM3 Red Blood Count 2.27 MIL/MM3 Hemoglobin 6.8 GM/DL Hematocrit 19.1 % Mean Corpuscular Volume 84.4 FL Mean Corpuscular Hemoglobin 30.1 PG Mean Corpuscular Hemoglobin Concent 35.7 % Red Cell Distribution Width 16.2 % Platelet Count 12 TH/MM3 Mean Platelet Volume 8.2 FL CBC Comment AUTO DIFF Differential Total Cells Counted 10 Lymphocytes % 90 % Monocytes % 10 % Neutrophils # (Manual) 0.0 TH/MM3 Differential Comment FINAL DIFF MANUAL Platelet Estimate RARE Platelet Morphology Comment NORMAL Red Cell Morphology Comment NORMAL Blood Urea Nitrogen 10 MG/DL Creatinine 0.86 MG/DL Random Glucose 110 MG/DL Total Protein 6.0 GM/DL Albumin 2.1 GM/DL Calcium Level 8.5 MG/DL Alkaline Phosphatase 58 U/L Aspartate Amino Transf (AST/SGOT) 10 U/L Alanine Aminotransferase (ALT/SGPT) 20 U/L Total Bilirubin 1.6 MG/DL Direct Bilirubin 0.7 MG/DL Sodium Level 136 MEQ/L Potassium Level 3.2 MEQ/L Chloride Level 103 MEQ/L Carbon Dioxide Level 26.9 MEQ/L Anion Gap 6 MEQ/L Estimat Glomerular Filtration Rate 108 ML/MIN Indirect Bilirubin 0.9 MG/DL Culture Results Microbiology Date/Time Source Procedure Growth Status 06/22/17 22:40 Blood Peripheral Aerobic Blood Culture Pending Received 06/22/17 22:40 Blood Peripheral Anaerobic Blood Culture Pending Received 06/22/17 11:35 Blood Peripheral Aerobic Blood Culture Pending Received 06/22/17 11:35 Blood Peripheral Anaerobic Blood Culture Pending Received Administered Medications Medications (Trade) Dose Ordered Sig/Emma Route PRN Reason Start Time Stop Time Status Last Admin Dose Admin Diphenhydramine HCl (Benadryl) 25 mg UNSCH X1 PRN PO ITCHING 06/20/17 11:00 06/23/17 10:59 06/22/17 13:52 Sodium Chloride 1,000 ml @ 100 mls/hr Q10H IV 06/20/17 10:51 06/22/17 22:51 Sodium Chloride (NS Flush) 2 ml UNSCH PRN IV FLUSH FLUSH AFTER USING IV ACCESS 06/20/17 11:00 06/21/17 04:42 Sodium Chloride (NS Flush) 2 ml BID IV FLUSH 06/20/17 21:00 06/22/17 09:42 Ondansetron HCl (Zofran Inj) 4 mg Q6H PRN IVP NAUSEA OR VOMITING 06/20/17 11:00 06/23/17 09:34 Cefepime HCl 2000 mg/Sodium Chloride 100 ml @ 200 mls/hr Q8H IV 06/20/17 18:00 06/23/17 04:52 Hydromorphone HCl (Dilaudid Pf Inj) 1 mg Q4H PRN IV PUSH Pain 7 to 10 06/20/17 12:15 06/23/17 09:33 Morphine Sulfate (Morphine Inj) 4 mg Q4H PRN IV PUSH Pain 3 to 6 06/20/17 12:15 06/22/17 04:50 Morphine Sulfate (Morphine Inj) 4 mg Q4H PRN IV PUSH Breakthrough Pain 06/20/17 12:15 06/22/17 09:42 Acyclovir (Zovirax) 400 mg Q12HR PO 06/20/17 21:00 06/23/17 09:32 Clonazepam (KlonoPIN) 1 mg HS PO 06/20/17 21:00 06/21/17 21:15 Fluoxetine HCl (PROzac) 20 mg DAILY PO 06/21/17 09:00 06/23/17 09:32 Sucralfate (Carafate Liq) 1 gm ACHS PO 06/20/17 17:00 06/23/17 09:32 Vancomycin HCl 2250 mg/Sodium Chloride 522.5 ml @ 257.5 mls/ hr Q8H IV 06/20/17 16:00 06/23/17 09:33 Acetaminophen (Tylenol) 650 mg Q4H PRN PO SEE LABEL COMMENTS 06/21/17 06:00 06/21/17 12:48 Diphenhydramine HCl (Benadryl) 25 mg Q4H PRN PO SEE LABEL COMMENTS 06/21/17 06:00 06/22/17 09:02 Acetaminophen (Tylenol) 650 mg Q4H PRN PO FEVER>100.4 OR PREMEDICATION 06/21/17 08:45 06/23/17 05:25 Clindamycin/ Sodium Chloride 50 ml @ 100 mls/hr Q8H IV 06/22/17 18:00 06/23/17 03:49 Micafungin Sodium 150 mg/Sodium Chloride 100 ml @ 100 mls/hr Q24H IV 06/22/17 15:00 06/22/17 16:46 Objective Remarks GENERAL: Obese young male resting on right side in bed. He appears to be in pain. SKIN: Warm and dry. HEAD: Normocephalic. Large area of erythema to left cheek. The erythema goes past the marked area. EYES: No injection or drainage. NECK: Supple, trachea midline. CARDIOVASCULAR: Regular rate and rhythm without murmurs. RESPIRATORY: Clear posteriorly. Breathing unlabored at rest. On 2 L nasal cannula. GASTROINTESTINAL: Abdomen soft, non-tender, nondistended. EXTREMITIES: No cyanosis, or edema. MUSCULOSKELETAL: Adequate muscle tone. NEUROLOGICAL: No obvious focal deficit. Awake, alert, and oriented x3. Assessment/Plan Problem List: (1) Neutropenic sepsis ICD Codes: A41.9 - Sepsis, unspecified organism; D70.9 - Neutropenia, unspecified Status: Resolved Plan: --on Vanco + Cefepime + Clindamycin + Micafungin --BC + GNR --ID following. --Influenza type A and B rapid test negative. U/A negative --CXR no infection. Assessment 27y/o male with AML admitted for neutropenic fever. h/o Obesity. Anxiety. Erosive esophagitis. Plan 1. Left facial abscess not improving. We'll get MRI soft tissues with and without contrast to evaluate. 2. Antibiotics per infectious disease. Patient continues to be febrile. Blood cultures pending. 3. Transfuse one unit packed red blood cells today 4. Supportive care. CBC in a.m. Discussed with Dr Villegas Attending Statement The exam, history, and the medical decision-making described in the above note were completed with the assistance of the mid-level provider. I reviewed and agree with the findings presented. I attest that I had a [id number] encounter with the patient on the same day, and personally performed and documented my assessment and findings in the medical record Febrile overnight severe neutropenia persists continue abx Face MRI reviewed--no abscess transfuse 1 unit of RBC irradiated blood products pain control and continue anti-emetics prn supportive care d/w rn o/n events reviewed Robina Cui Jun 23, 2017 10:35 Joey Santoyo MD Jun 23, 2017 22:45
--- NOTE | 2017-06-23 10:37 | HHI.PR ---
Subjective Remarks f/u; neutropenic fever in no acute distress. but somewhat ill-looking. still febrile; Tmax 102. swelling and erythema over the left face looks worse today. d/w the RN at the bedside. Objective Vitals Vital Signs Date Time Temp Pulse Resp B/P (MAP) Pulse Ox O2 Delivery O2 Flow Rate FiO2 06/23/17 06:00 112 06/23/17 05:00 106 06/23/17 04:57 101.7 108 18 163/85 (111) 92 06/23/17 04:09 99 06/23/17 03:00 100 06/23/17 02:00 102 06/23/17 01:00 132 06/23/17 00:47 98.3 102 18 173/83 (113) 97 06/23/17 00:05 97 06/22/17 23:00 100 06/22/17 22:00 96 06/22/17 21:09 98.2 101 18 126/74 (91) 91 06/22/17 21:00 96 06/22/17 20:01 87 06/22/17 19:00 72 06/22/17 18:00 68 06/22/17 17:09 100.1 105 18 136/55 (82) 99 06/22/17 17:00 64 06/22/17 16:00 111 06/22/17 15:17 100.0 105 24 169/98 (121) 96 06/22/17 15:14 100.0 111 24 169/98 96 06/22/17 12:24 102.0 103 18 147/72 95 06/22/17 12:06 99.4 106 20 104/57 94 06/22/17 12:00 114 I/O 06/22/17 06/22/17 06/22/17 06/23/17 06/23/17 06/23/17 07:00 15:00 23:00 07:00 15:00 23:00 Intake Total 1222.5 ml 2189 ml 2050 ml 972 ml Output Total 900 ml 1000 ml 1000 ml 650 ml Balance 322.5 ml 1189 ml 1050 ml 322 ml Intake Oral 600 ml 800 ml IV Total 622.5 ml 375 ml 1250 ml 972 ml Packed Cells 400 ml Platelets 193 ml Blood Product IV Normal Saline Flush 1221 ml Output Urine Total 900 ml 1000 ml 1000 ml 650 ml # Bowel Movements 1 Result Diagram: 06/23/17 0444 06/23/17 0444 Imaging Last Impressions Chest X-Ray 06/20/17 0939 Signed Impressions: Service Date/Time: Tuesday, June 20, 2017 09:49 - CONCLUSION: No acute disease. Katie Hollins MD Objective Remarks GENERAL: This is a well-nourished, well-developed patient, in no apparent distress. CARDIOVASCULAR: tachycardic with regular rhythm without murmurs, gallops, or rubs. RESPIRATORY: Clear to auscultation. Breath sounds equal bilaterally. No wheezes , rales, or rhonchi. GASTROINTESTINAL: Abdomen soft, non-tender, nondistended. Normal, active bowel sounds MUSCULOSKELETAL: Extremities without clubbing, cyanosis, or edema. NEURO: Alert & Oriented x4 to person, place, time, situation. Moves all ext x4 skin; erythema/ swelling of the left face is worse today. Medications and IVs Inpatient Medications Acetaminophen 65 ml @ 400 mls/hr ONCE ONCE IV Last administered on 06/21/17at 09:06; Start 06/21/17 at 08:45; Stop 06/21/17 at 08:54; Status DC Acetaminophen (Tylenol 650 Mg/ 20 ml Liq) 650 mg Q6H PRN PO Fever; Start at 14:00; Stop 06/21/17 at 08:46; Status DC Acetaminophen (Tylenol) 650 mg Q4H PRN PO FEVER>100.4 OR PREMEDICATION Last administered on 06/23/17at 05:25; Start 06/21/17 at 08:45 Acetaminophen/ Hydrocodone Bitart ([place] 5-325 Mg) 1 tab Q4H PRN PO PAIN SCALE 3 TO 5; Start 06/20/17 at 11:00; Stop 06/20/17 at 12:18; Status DC Acetaminophen/ Hydrocodone Bitart ([place] 10-325 Mg) 1 tab Q4H PRN PO PAIN SCALE 6 TO 10; Start 06/20/17 at 11:00; Stop 06/20/17 at 12:18; Status DC Acyclovir (Zovirax) 400 mg Q12HR PO Last administered on 06/23/17at 09:32; Start 06/20/17 at 21:00 Alprazolam (Xanax) 0.25 mg Q8H PRN PO Anxiety; Start 06/20/17 at 14:00 Cefepime HCl 2000 mg/Sodium Chloride 100 ml @ 200 mls/hr Q8H IV Last administered on 06/23/17 04:52; Start 06/20/17 at 18:00 Clindamycin/ Sodium Chloride 50 ml @ 100 mls/hr Q8H IV Last administered on 03:49; Start 06/22/17 at 18:00 Clonazepam (KlonoPIN) 1 mg HS PO Last administered on 06/21/17 21:15; Start at 21:00 Diphenhydramine HCl (Benadryl) 25 mg Q4H PRN PO SEE LABEL COMMENTS Last administered on 06/22/17 09:02; Start 06/21/17 at 06:00 Fluoxetine HCl (PROzac) 20 mg DAILY PO Last administered on 06/23/17 09:32; Start 06/21/17 at 09:00 Hydromorphone HCl (Dilaudid Pf Inj) 1 mg Q4H PRN IV PUSH Pain 7 to 10 Last administered on 06/23/17 09:33; Start 06/20/17 at 12:15 Ketorolac Tromethamine (Toradol Inj) 30 mg ONCE ONCE IV PUSH Last administered on 06/20/17at 10:08; Start 06/20/17 at 10:00; Stop 06/20/17 at 10:01 ; Status DC Magnesium Hydroxide (Milk Of Magnesia Liq) 30 ml Q12H PRN PO Mild constipation ; Start 06/20/17 at 11:00 Metoclopramide HCl (Reglan Inj) 10 mg ONCE ONCE IV PUSH Last administered on at 09:06; Start 06/21/17 at 08:45; Stop 06/21/17 at 08:46; Status DC Micafungin Sodium 150 mg/Sodium Chloride 100 ml @ 100 mls/hr Q24H IV Last administered on 06/22/17at 16:46; Start 06/22/17 at 15:00 Miscellaneous Information SPECIFIC LAB TO BE DRAWN: ZOEY TROUGH DATE TO BE DRDexter.. ONCE ONCE .XX Last administered on 06/22/17at 16:53; Start 06/22/17 at 15 :45; Stop 06/22/17 at 15:46; Status DC Morphine Sulfate (Morphine Inj) 4 mg Q4H PRN IV PUSH Breakthrough Pain Last administered on 06/22/17at 09:42; Start 06/20/17 at 12:15 Naloxone HCl (Narcan Inj) 0.4 mg UNSCH PRN IV PUSH SEE LABEL COMMENTS; Start at 11:00 Ondansetron HCl (Zofran Inj) 4 mg Q6H PRN IVP NAUSEA OR VOMITING Last administered on 06/23/17at 09:34; Start 06/20/17 at 11:00 Pharmacy Profile Note 0 ml @ 0 mls/hr UNSCH OTHER ; Start 06/20/17 at 14:15 Prochlorperazine Edisylate (Compazine Inj) 5 mg ONCE ONCE IV PUSH Last administered on 06/23/17at 04:51; Start 06/23/17 at 04:00; Stop 06/23/17 at 04:03 ; Status DC Sodium Chloride 250 ml @ 15 mls/hr ONCE ONCE IV ; Start 06/22/17 at 08:15; Stop 06/23/17 at 00:54; Status DC Sodium Chloride (NS Flush) 2 ml BID IV FLUSH Last administered on 06/22/17at 09: 42; Start 06/20/17 at 21:00 Sucralfate (Carafate Liq) 1 gm ACHS PO Last administered on 06/23/17at 09:32; Start 06/20/17 at 17:00 Trimethoprim/ Sulfamethoxazole (Bactrim Ds 800-160 Mg) 1 tab MoWeFr@09 PO Last administered on 06/21/17at 08:24; Start 06/21/17 at 09:00; Stop 06/22/17 at 09:44 ; Status DC Vancomycin HCl 2250 mg/Sodium Chloride 522.5 ml @ 257.5 mls/ hr Q8H IV Last administered on 06/23/17at 09:33; Start 06/20/17 at 16:00 A/P Problem List: (1) Neutropenic fever ICD Code: D70.9 - Neutropenia, unspecified; R50.81 - Fever presenting with conditions classified elsewhere Status: Resolved (2) Pancytopenia ICD Code: D61.818 - Other pancytopenia (3) AML (acute myelogenous leukemia) ICD Code: C92.00 - Acute myeloblastic leukemia, not having achieved remission Status: Chronic (4) Generalized pain ICD Code: R52 - Pain, unspecified Status: Resolved (5) Sepsis ICD Code: A41.9 - Sepsis, unspecified organism Status: Resolved Assessment and Plan A/P Sepsis Neutropenic fever bacteremia with gram-negative mala continue with broad spectrum IV Antibiotics. follow the cultures. ID and Oncology following. cellulitis- left face- worse today continue antibiotics per ID. MRI of the facial soft tissue today- Acute myeloid leukemia Pancytopenia Thrombocytopenia Hematology/Oncology following. Follow CBC Last chemotherapy was approximately one week ago PRBC and platelet transfusion per Oncology. Hypokalemia will replace and monitor. Gen. anxiety disorder Chronic depression Xanax as needed Clonazepam at night Fluoxetine daily DVT prophylaxis SCDs Due to degree of pancytopenia avoid anticoagulation right now Discharge Planning still febrile- Oncology and ID following. not ready for discharge. Dacia Watkins MD Jun 23, 2017 10:37
[2017-06-23] MEDS ORDERED: POTASSIUM CHLORIDE 20 MEQ CONTROLLED RELEASE TAB PO ONE (10:45)
--- NOTE | 2017-06-23 11:08 | HHI.IDPN ---
Note Infectious Disease Note Patient notes pain in the face in area of swelling. Sleepy but awakens easily. Left submandibular swelling and erythema is worse. Slightly larger. He notes teeth pain at the left jaw which is new. Has a tiny black scab at the center of the erythema at the face. Temp still elevated. No headache. No nausea. No drooling. Blood culture repeat is pending. 27-year-old white male who has AML. The patient has been undergoing consolidation chemotherapy and he received the third cycle of chemotherapy last week. The patient developed fever and noted a tiny lump at the left sub mandible area of the chin. He states that he squeezed it but did not get any fluid and it became slightly enlarged and erythematous. That was 4 days ago. He subsequently started getting fever and chills yesterday and he also had nausea and vomiting and diarrhea. His temperature stephanie to 103.2 yesterday morning after he was evaluated and he was admitted to the hospital. The patient has an [id number] in the right chest which has been used for chemotherapy. There has been no problems with the function of the [id number]. PAST MEDICAL HISTORY 1. AML. The patient is noted to be in remission and has been undergoing consolidative chemotherapy. 2. History of erosive esophagitis. 3. Anxiety. 4. Obesity. ALLERGIES NO KNOWN DRUG ALLERGIES. MEDICATIONS 1. Clindamycin 2. Cefepime. 3. Vancomycin. 4. Micafungin. 5. Acyclovir. Current Medications Medications (Trade) Dose Ordered Sig/Emma Route PRN Reason Start Time Stop Time Status Last Admin Dose Admin Diphenhydramine HCl (Benadryl) 25 mg UNSCH X1 PRN PO ITCHING 06/20/17 11:00 06/23/17 10:59 06/22/17 13:52 Sodium Chloride 1,000 ml @ 100 mls/hr Q10H IV 06/20/17 10:51 06/22/17 22:51 Sodium Chloride (NS Flush) 2 ml UNSCH PRN IV FLUSH FLUSH AFTER USING IV ACCESS 06/20/17 11:00 06/21/17 04:42 Sodium Chloride (NS Flush) 2 ml BID IV FLUSH 06/20/17 21:00 06/22/17 09:42 Ondansetron HCl (Zofran Inj) 4 mg Q6H PRN IVP NAUSEA OR VOMITING 06/20/17 11:00 06/23/17 09:34 Naloxone HCl (Narcan Inj) 0.4 mg UNSCH PRN IV PUSH SEE LABEL COMMENTS 06/20/17 11:00 Magnesium Hydroxide (Milk Of Magnesia Liq) 30 ml Q12H PRN PO Mild constipation 06/20/17 11:00 Cefepime HCl 2000 mg/Sodium Chloride 100 ml @ 200 mls/hr Q8H IV 06/20/17 18:00 06/23/17 04:52 Hydromorphone HCl (Dilaudid Pf Inj) 1 mg Q4H PRN IV PUSH Pain 7 to 10 06/20/17 12:15 06/23/17 09:33 Morphine Sulfate (Morphine Inj) 4 mg Q4H PRN IV PUSH Pain 3 to 6 06/20/17 12:15 06/22/17 04:50 Morphine Sulfate (Morphine Inj) 4 mg Q4H PRN IV PUSH Breakthrough Pain 06/20/17 12:15 06/22/17 09:42 Acyclovir (Zovirax) 400 mg Q12HR PO 06/20/17 21:00 06/23/17 09:32 Clonazepam (KlonoPIN) 1 mg HS PO 06/20/17 21:00 06/21/17 21:15 Fluoxetine HCl (PROzac) 20 mg DAILY PO 06/21/17 09:00 06/23/17 09:32 Sucralfate (Carafate Liq) 1 gm ACHS PO 06/20/17 17:00 06/23/17 09:32 Alprazolam (Xanax) 0.25 mg Q8H PRN PO Anxiety 06/20/17 14:00 Pharmacy Profile Note 0 ml @ 0 mls/hr UNSCH OTHER 06/20/17 14:15 Vancomycin HCl 2250 mg/Sodium Chloride 522.5 ml @ 257.5 mls/ hr Q8H IV 06/20/17 16:00 06/23/17 09:33 Acetaminophen (Tylenol) 650 mg Q4H PRN PO SEE LABEL COMMENTS 06/21/17 06:00 06/21/17 12:48 Diphenhydramine HCl (Benadryl) 25 mg Q4H PRN PO SEE LABEL COMMENTS 06/21/17 06:00 06/22/17 09:02 Acetaminophen (Tylenol) 650 mg Q4H PRN PO FEVER>100.4 OR PREMEDICATION 06/21/17 08:45 06/23/17 05:25 Clindamycin/ Sodium Chloride 50 ml @ 100 mls/hr Q8H IV 06/22/17 18:00 06/23/17 03:49 Micafungin Sodium 150 mg/Sodium Chloride 100 ml @ 100 mls/hr Q24H IV 06/22/17 15:00 06/22/17 16:46 OBJECTIVE: Vital Signs Date Time Temp Pulse Resp B/P (MAP) Pulse Ox O2 Delivery O2 Flow Rate FiO2 06/23/17 06:00 112 06/23/17 05:00 106 06/23/17 04:57 101.7 108 18 163/85 (111) 92 06/23/17 04:09 99 06/23/17 03:00 100 06/23/17 02:00 102 06/23/17 01:00 132 06/23/17 00:47 98.3 102 18 173/83 (113) 97 06/23/17 00:05 97 06/22/17 23:00 100 06/22/17 22:00 96 06/22/17 21:09 98.2 101 18 126/74 (91) 91 06/22/17 21:00 96 06/22/17 20:01 87 06/22/17 19:00 72 06/22/17 18:00 68 06/22/17 17:09 100.1 105 18 136/55 (82) 99 06/22/17 17:00 64 06/22/17 16:00 111 06/22/17 15:17 100.0 105 24 169/98 (121) 96 06/22/17 15:14 100.0 111 24 169/98 96 06/22/17 12:24 102.0 103 18 147/72 95 06/22/17 12:06 99.4 106 20 104/57 94 06/22/17 12:00 114 Laboratory Tests Test 06/22/17 04:40 06/23/17 04:44 White Blood Count 0.1 TH/MM3 0.1 TH/MM3 Red Blood Count 2.50 MIL/MM3 2.27 MIL/MM3 Hemoglobin 7.4 GM/DL 6.8 GM/DL Hematocrit 21.1 % 19.1 % Mean Corpuscular Volume 84.5 FL 84.4 FL Mean Corpuscular Hemoglobin 29.5 PG 30.1 PG Mean Corpuscular Hemoglobin Concent 35.0 % 35.7 % Red Cell Distribution Width 16.5 % 16.2 % Platelet Count 7 TH/MM3 12 TH/MM3 Mean Platelet Volume 9.7 FL 8.2 FL CBC Comment AUTO DIFF AUTO DIFF Differential Total Cells Counted 10 10 Lymphocytes % 100 % 90 % Neutrophils # (Manual) 0.0 TH/MM3 0.0 TH/MM3 Differential Comment FINAL DIFF MANUAL FINAL DIFF MANUAL Platelet Estimate RARE RARE Platelet Morphology Comment NORMAL NORMAL Monocytes % 10 % Red Cell Morphology Comment NORMAL Laboratory Tests Test 06/22/17 04:40 06/23/17 04:44 Blood Urea Nitrogen 10 MG/DL 10 MG/DL Creatinine 0.93 MG/DL 0.86 MG/DL Random Glucose 115 MG/DL 110 MG/DL Total Protein 6.4 GM/DL 6.0 GM/DL Albumin 2.4 GM/DL 2.1 GM/DL Calcium Level 8.6 MG/DL 8.5 MG/DL Alkaline Phosphatase 64 U/L 58 U/L Aspartate Amino Transf (AST/SGOT) 9 U/L 10 U/L Alanine Aminotransferase (ALT/SGPT) 28 U/L 20 U/L Total Bilirubin 2.3 MG/DL 1.6 MG/DL Direct Bilirubin 0.7 MG/DL 0.7 MG/DL Sodium Level 136 MEQ/L 136 MEQ/L Potassium Level 3.4 MEQ/L 3.2 MEQ/L Chloride Level 103 MEQ/L 103 MEQ/L Carbon Dioxide Level 26.6 MEQ/L 26.9 MEQ/L Anion Gap 6 MEQ/L 6 MEQ/L Estimat Glomerular Filtration Rate 99 ML/MIN 108 ML/MIN Indirect Bilirubin 1.6 MG/DL 0.9 MG/DL Microbiology Date/Time Source Procedure Growth Status 06/22/17 22:40 Blood Peripheral Aerobic Blood Culture Pending Received 06/22/17 22:40 Blood Peripheral Anaerobic Blood Culture Pending Received 06/22/17 11:35 Blood Peripheral Aerobic Blood Culture Pending Received 06/22/17 11:35 Blood Peripheral Anaerobic Blood Culture Pending Received IMAGING: Chest X-Ray 06/20/17 0939 Signed Impressions: Service Date/Time: Tuesday, June 20, 2017 09:49 - CONCLUSION: No acute disease. Katie Hollins MD GENERAL: No acute distress. HEENT: Erythematous firm mobile area of swelling at the left submental area is slightly larger and more tender. The extraocular movements grossly intact, pupils reactive to light. No icterus. Oropharynx moist mucosa without lesions. NECK: Supple. No adenopathy. The neck is obese. LUNGS: Clear, decreased breath sounds. HEART: Distant S1-S2 without murmurs, rubs or gallops. ABDOMEN: Obese, soft, no tenderness appreciated. EXTREMITIES: No clubbing or cyanosis or edema. SKIN: No diffuse rash. NEUROLOGIC: No gross focal findings. PSYCHE: Pleasant, calm and cooperative. IMPRESSION 1. Gram-negative sepsis in patient with persistent fever, chills and neutropenia and also tachycardia, and hypotension. Blood culture growing Enterobacter. Sensitive to antibiotics. 2. Cellulitis of the left face. 3. Neutropenia. 4. AML in a patient who is post consolidation chemotherapy after going into remission. 5. Thrombocytopenia and anemia. RECOMMENDATIONS 1. Continue cefepime. 2. Continue vancomycin. 3. Continue acyclovir. 4. Continue Clindamycin. 5. Continue Micafungin. 6. Follow repeat the blood cultures. 7. MRI of the face. 8. Plastic surgery consult. ? need for drainage. Tre Villegas MD Jun 23, 2017 11:07
[2017-06-23] MEDS: diphenhydrAMINE HCL 25 MG CAP PO PRN (14:08)
--- NOTE | 2017-06-23 14:13 | RADRPT ---
EXAM DATE/TIME: 06/23/2017 11:57 [facility] COMPARISON: No previous studies available for comparison. INDICATIONS : Abscess. MEDICAL HISTORY : Leukemia. SURGICAL HISTORY : Port placement. ENCOUNTER: Initial ACUITY: 3 day PAIN SCORE: 6/10 LOCATION: Left side of face TECHNIQUE: Multi-weighted, multi-axial MR images of the facial soft tissue without contrast. FINDINGS: There is soft tissue swelling over the left side of the face over the left maxilla extending to the m idline without deep space abscess. I do not see dental origin for this. This most likely arose with in the subcutaneous tissues. This extends down to the left neck to level of the clavicle. The portion of the intracranial contents visualized are unremarkable. CONCLUSION: Superficial inflammatory changes. Given the very low white count developing abscess probably not pos sible. Correlation suggested. Richy Bonner MD FACR on June 23, 2017 at 14:07 Board Certified Radiologist. This report was verified electronically.
[2017-06-23] MEDS ORDERED: VANCOMYCIN INJ 2,000 MG in SODIUM CHLORID 0.9% 500 ML INJ 500 ML IV SCH (16:00)
[2017-06-23] MEDS: MORPHINE SULFATE 4 MG/ML INJ IV PUSH PRN ×2 (16:41→20:46)
[2017-06-23] MEDS: MICAFUNGIN INJ 150 MG in SODIUM CHLORIDE 0.9% INJ 100 ML IV SCH (17:11)
[2017-06-23] MEDS: SODIUM CHLOR 0.9% 1000 ML INJ 1,000 ML IV SCH (18:51)
--- NOTE | 2017-06-23 19:55 | MB ---
cc: SHARIFA LUCAS M.D. DATE OF CONSULTATION 06/23/2017 REQUESTING PHYSICIAN The patient is being seen at the request of Dr. Villegas. REASON FOR CONSULTATION Facial cellulitis. 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 The patient was admitted on 06/20/2017. At that time the admitting diagnosis was neutropenic fever, pancytopenia and thrombocytopenia. The patient is being admitted and his white count was 0.1 and he has been growing Enterobacter from his blood. The patient also developed a swelling on the left side of his face, on his neck in the submandibular area. There was a small scab present where the patient may have been squeezing a pimple. The patient had an MRI earlier today which showed cellulitis and fluid in the soft tissues but no abscess collection. Consultation is requested regarding evaluation and treatment of the patient. REVIEW OF SYSTEMS The patient is review of systems is significant for fatigue and fevers. PAST MEDICAL HISTORY 1. He has a history of acute myeloid leukemia. 2. Erosive esophagitis. 3. Obesity. 4. Anxiety. PAST SURGICAL HISTORY Includes: A bone marrow biopsy. MEDICATIONS Listed on chart. ALLERGIES NO KNOWN FOOD OR DRUG ALLERGIES. FAMILY HISTORY Noncontributory. SOCIAL HISTORY The patient does not use illegal drugs or alcohol and he does not smoke. PHYSICAL EXAMINATION GENERAL: The patient is lying in bed on his side. HEENT: Examination of the facial area reveals redness on the left side of his face and submandibular area. There is a demarcation drawn around the previous redness and it has expanded for approximately 1 cm toward his left ear. Examination does reveal to be tender but there is no definite fluctuance. There does appear to be some induration. There is no active drainage and the opening is scabbed over. LABORATORY DATA Review of his laboratory data, his white cell count remains at 0.1, hemoglobin is 6.8 and hematocrit 19.1. Platelet count is 12,000. The patient is presently receiving a transfusion. His albumin is 2.1. Random glucose is a 110. BUN is 10 and his creatinine is 0.86. IMPRESSION The patient appears to have a cellulitis of the left side of his face and submandibular area. PLAN The patient is being treated for his pancytopenia and also being covered with antibiotics. At this point I do not believe that incision and drainage is indicated as there does not appear to be a collection. We will follow the patient while he is admitted and treat accordingly. This is discussed with the patient and his family. MD PHIL Lopez/NEGRO /4:32 PM /7:06 PM
[2017-06-23] MEDS: VANCOMYCIN INJ 2,000 MG in SODIUM CHLORID 0.9% 500 ML INJ 500 ML IV SCH (21:00)
[2017-06-24] VITALS (30 sets, daily range): BP systolic 126–159; BP diastolic 55–88; PULSE 78–108; RESP 12–20; TEMP 98.5–101.2; O2SAT 91–98
[2017-06-24] MEDS: MORPHINE SULFATE 4 MG/ML INJ IV PUSH PRN ×2 (01:19→05:55)
[2017-06-24] MEDS: clonazePAM 1 MG TAB PO SCH (01:19)
[2017-06-24] MEDS: CEFEPIME INJ 2,000 MG in SODIUM CHLORIDE 0.9% INJ 100 ML IV SCH ×3 (01:20→19:13)
[2017-06-24] MEDS: CLINDAMYCIN 600 MG/NS PREMIX 50 ML IV SCH ×3 (03:01→19:51)
[2017-06-24] MEDS: ONDANSETRON HCL 4 MG/2 ML VIAL IVP PRN ×3 (03:03→19:56)
[2017-06-24] MEDS: HYDROmorphone HCL PF 2 MG/ML VIAL IV PUSH PRN ×5 (03:07→21:14)
[2017-06-24] MEDS: VANCOMYCIN INJ 2,000 MG in SODIUM CHLORID 0.9% 500 ML INJ 500 ML IV SCH ×2 (05:55→21:33)
[2017-06-24 06:18] LABS: HEMOGLOBIN 7.4 GM/DL (13.0-17.0); MEAN CELL VOLUME 84.5 FL (80.0-100.0); MEAN CORPUSCULAR HEMOGLOBIN 29.8 PG (27.0-34.0); MEAN CORPUSCULAR HGB CONC 35.3 % (32.0-36.0); RED BLOOD COUNT 2.48 MIL/MM3 (4.50-5.90); RED CELL DISTRIBUTION WIDTH 15.8 % (11.6-17.2); WHITE BLOOD COUNT 0.1 TH/MM3 (4.0-11.0)
[2017-06-24 06:32] LABS: HEMATOCRIT 20.9 % (39.0-51.0); PLATELET COUNT 8 TH/MM3 (150-450)
[2017-06-24 06:44] LABS: BICARBONATE 26.4 MEQ/L (21.0-32.0); CALCIUM 8.3 MG/DL (8.5-10.1); CREATININE 0.74 MG/DL (0.60-1.30)
[2017-06-24 06:47] LABS: DIRECT BILIRUBIN ADULT 0.5 MG/DL (0.0-0.2); INDIRECT BILIRUBIN 0.7 MG/DL (0.0-0.8); TOTAL BILIRUBIN ADULT 1.2 MG/DL (0.2-1.0); TOTAL PROTEIN 6.4 GM/DL (6.4-8.2)
[2017-06-24 08:29] LABS: LYMPHOCYTES 100 % (9-44)
[2017-06-24] MEDS ORDERED: SODIUM CHLOR 0.9% 250 ML INJ 250 ML IV ONE (08:30)
[2017-06-24] MEDS: FLUoxetine HCL 20 MG CAP PO SCH (09:20)
[2017-06-24] MEDS: ACYCLOVIR 200 MG CAP PO SCH ×2 (09:20→21:20)
[2017-06-24] MEDS: SODIUM CHLORIDE 0.9% FLUSH 10 ML FLUSH IV FLUSH SCH ×2 (09:20→21:00)
[2017-06-24] MEDS: SUCRALFATE 1 GM/10 ML CUP PO SCH ×4 (09:20→21:20)
[2017-06-24] MEDS ORDERED: HYDROmorphone HCL PF 1 MG/ML VIAL IV PUSH PRN (09:45)
--- NOTE | 2017-06-24 11:44 | PD.ONC.PN ---
Subjective Subjective Remarks Tmax 99.8 overnight. Patient seen at 9:30AM and again at 10:30AM. Patient is extremely somnolent. He complains of pain in his left jaw/face where his cellulitis is, then quickly falls back asleep. He slurs his words when he speaks. The nurse tells me she is about to give him 1mg of Dilaudid that he requested. In reviewing the EMR, I see that he received Klonopin 1mg at 1AM, Morphine 4mg IV at 1AM, Dilaudid 1mg at 3AM, Morphine 4mg at 6AM. In light of the fact that the patient is extremely sedated and on O2 for a poor pulse oximetry, I have asked the nurse not to give the patient his requested Dilaudid. I explained to the patient my reason for holding his dilaudid. He protests and then falls asleep. When I check on him an hour later, he awakens when I enter the room, then quickly falls back asleep. Objective Data Date Time Temp Pulse Resp B/P (MAP) Pulse Ox O2 Delivery O2 Flow Rate FiO2 06/24/17 08:00 99.0 102 20 159/88 (111) 95 06/24/17 06:00 91 06/24/17 05:00 88 06/24/17 04:00 82 06/24/17 03:00 86 06/24/17 03:00 99.2 98 12 153/84 (107) 93 06/24/17 02:00 88 06/24/17 01:00 104 06/24/17 00:00 87 06/23/17 23:09 99.2 99 16 140/83 (102) 100 06/23/17 23:00 100 06/23/17 22:00 92 06/23/17 21:00 100 06/23/17 20:00 99.8 105 16 148/85 (106) 100 06/23/17 20:00 101 06/23/17 16:00 100 06/23/17 15:50 100.0 100 18 123/54 (77) 93 06/23/17 15:33 100.0 100 18 123/54 93 06/23/17 15:20 100.1 98 18 123/53 94 06/23/17 12:00 110 06/24/17 06/24/17 06/24/17 07:00 15:00 23:00 Intake Total 1270 ml Output Total 900 ml Balance 370 ml Result Diagram: 06/24/17 0550 06/24/17 0550 Laboratory Results Laboratory Tests Test 06/24/17 05:50 06/24/17 10:40 White Blood Count 0.1 TH/MM3 Red Blood Count 2.48 MIL/MM3 Hemoglobin 7.4 GM/DL Hematocrit 20.9 % Mean Corpuscular Volume 84.5 FL Mean Corpuscular Hemoglobin 29.8 PG Mean Corpuscular Hemoglobin Concent 35.3 % Red Cell Distribution Width 15.8 % Platelet Count 8 TH/MM3 Mean Platelet Volume 9.0 FL CBC Comment AUTO DIFF Differential Total Cells Counted 10 Lymphocytes % 100 % Neutrophils # (Manual) 0.0 TH/MM3 Differential Comment FINAL DIFF MANUAL Platelet Estimate RARE Platelet Morphology Comment NORMAL Blood Urea Nitrogen 11 MG/DL Creatinine 0.74 MG/DL Random Glucose 109 MG/DL Total Protein 6.4 GM/DL Albumin 2.0 GM/DL Calcium Level 8.3 MG/DL Alkaline Phosphatase 58 U/L Aspartate Amino Transf (AST/SGOT) 7 U/L Alanine Aminotransferase (ALT/SGPT) 16 U/L Total Bilirubin 1.2 MG/DL Direct Bilirubin 0.5 MG/DL Sodium Level 139 MEQ/L Potassium Level 3.4 MEQ/L Chloride Level 105 MEQ/L Carbon Dioxide Level 26.4 MEQ/L Anion Gap 8 MEQ/L Estimat Glomerular Filtration Rate 129 ML/MIN Indirect Bilirubin 0.7 MG/DL Culture Results Microbiology Date/Time Source Procedure Growth Status 06/22/17 22:40 Blood Peripheral Aerobic Blood Culture - Preliminary NO GROWTH IN 2 DAYS Resulted 06/22/17 22:40 Blood Peripheral Anaerobic Blood Culture - Preliminary NO GROWTH IN 2 DAYS Resulted 06/22/17 11:35 Blood Peripheral Aerobic Blood Culture - Preliminary NO GROWTH IN 2 DAYS Resulted 06/22/17 11:35 Blood Peripheral Anaerobic Blood Culture - Preliminary NO GROWTH IN 2 DAYS Resulted Administered Medications Medications (Trade) Dose Ordered Sig/Emma Route PRN Reason Start Time Stop Time Status Last Admin Dose Admin Sodium Chloride 1,000 ml @ 100 mls/hr Q10H IV 06/20/17 10:51 06/23/17 18:51 Sodium Chloride (NS Flush) 2 ml UNSCH PRN IV FLUSH FLUSH AFTER USING IV ACCESS 06/20/17 11:00 2/12/18 04:42 Sodium Chloride (NS Flush) 2 ml BID IV FLUSH 06/20/17 21:00 06/24/17 09:20 Ondansetron HCl (Zofran Inj) 4 mg Q6H PRN IVP NAUSEA OR VOMITING 06/20/17 11:00 06/24/17 09:20 Cefepime HCl 2000 mg/Sodium Chloride 100 ml @ 200 mls/hr Q8H IV 06/20/17 18:00 06/24/17 01:20 Acyclovir (Zovirax) 400 mg Q12HR PO 06/20/17 21:00 06/24/17 09:20 Fluoxetine HCl (PROzac) 20 mg DAILY PO 06/21/17 09:00 06/24/17 09:20 Sucralfate (Carafate Liq) 1 gm ACHS PO 06/20/17 17:00 06/24/17 09:20 Acetaminophen (Tylenol) 650 mg Q4H PRN PO FEVER>100.4 OR PREMEDICATION 06/21/17 08:45 06/23/17 05:25 Clindamycin/ Sodium Chloride 50 ml @ 100 mls/hr Q8H IV 06/22/17 18:00 06/24/17 09:20 Micafungin Sodium 150 mg/Sodium Chloride 100 ml @ 100 mls/hr Q24H IV 06/22/17 15:00 06/23/17 17:11 Vancomycin HCl 2000 mg/Sodium Chloride 520 ml @ 257.5 mls/ hr Q8H IV 06/23/17 21:00 06/24/17 05:55 Objective Remarks GENERAL: Lethargic obese male, lying supine in bed on 2L O2 via NC SKIN: Warm and dry. cellulitis noted in left cheek extending into the neck. HEAD: Normocephalic. EYES: No injection or drainage. NECK: Supple, trachea midline. CARDIOVASCULAR: Regular rate and rhythm RESPIRATORY: Breath sounds equal bilaterally. No accessory muscle use. GASTROINTESTINAL: Abdomen soft, non-tender, nondistended. EXTREMITIES: No cyanosis NEUROLOGICAL: lethargic. awakens to voice and quickly falls back asleep. Assessment/Plan Problem List: (1) Neutropenic sepsis ICD Codes: A41.9 - Sepsis, unspecified organism; D70.9 - Neutropenia, unspecified Status: Resolved Plan: --on Vanco + Cefepime + Clindamycin + Micafungin --BC + GNR --ID following. --Influenza type A and B rapid test negative. U/A negative --CXR no infection. (2) Facial cellulitis ICD Codes: L03.211 - Cellulitis of face Plan: --continue antibiotics. --plastic surgery consulted, does not recommend intervention. Assessment 27y/o male with AML admitted for neutropenic fever. h/o Obesity. Anxiety. Erosive esophagitis. Plan 1. continue antibiotics per infectious disease 2. I have stopped the patient's Klonopin and changed/simplified the pain medication to dilaudid only, which he can receive 1mg every three hours for pain if he is not lethargic/somnolent at the time of administration. I discussed with the patient at length my concern about the amount of narcotics that he is receiving and the combination of the Klonopin with the narcotics. I gently explained to Nilson that, while I want to control his pain and help him to sleep at night, I have to keep his health foremost in my mind, and that I do not believe the amount and combination of sedating medications he is receiving is safe. 3. 1 unit pRBC + 1 unit platelets today. Attending Statement The exam, history, and the medical decision-making described in the above note were completed with the assistance of the mid-level provider. I reviewed and agree with the findings presented. I attest that I had a [id number] encounter with the patient on the same day, and personally performed and documented my assessment and findings in the medical record Patient is overly sedated which is concerning. He was given multiple rounds of IV narcotics by overnight nursing staff as he insisted that that he was having pain from his left neck cellulitis Pain appears to be disproportional to the extent of cellulitis--there is is swelling in the area but its superficial as demonstrated by the MRI Long discussion with the patient regarding his demands to give more IV narcotics. I explained to him that it is unsafe to continue to give him pain meds based on his demands. We do not want him to be in pain but have to be mindful about the fact that he is getting over-sedated and risks respiratory compromise Based on Helio past pattern of demanding pain meds and on this admission, he is exhibiting narcotic seeking behavior we will d/c Edy. keep IV Dilaudid 1mg q3hrs prn since he says that he can not take oral meds. . No additional benzodiazepines or other narcotics to be added. can take Tylenol prn If facial swelling worsens or experiences dysphagia, will ask ENT for airway exam remains severely neutropenic pRBC and PLt transfusion today no evidence of hemolysis supportive care d/w rn o/n events reviewed Fartun Pagan Jun 24, 2017 11:44 Joey Santoyo MD Jun 24, 2017 20:47
--- NOTE | 2017-06-24 12:14 | HHI.IDPN ---
Note Infectious Disease Note Patient notes pain in the left face. Says pain is 8/10 scale. Sleepy but awakens easily. Left submandibular swelling and erythema is slightly larger than yesterday. Has a tiny black scab at the center of the erythema at the face. Temp is lower. Says he has headache at posterior neck. Neck is supple. No nausea. No drooling. Blood culture - no growth. 27-year-old white male who has AML. The patient has been undergoing consolidation chemotherapy and he received the third cycle of chemotherapy last week. The patient developed fever and noted a tiny lump at the left sub mandible area of the chin. He states that he squeezed it but did not get any fluid and it became slightly enlarged and erythematous. That was 4 days ago. He subsequently started getting fever and chills yesterday and he also had nausea and vomiting and diarrhea. His temperature stephanie to 103.2 yesterday morning after he was evaluated and he was admitted to the hospital. The patient has an Otfrec-C-Ougn in the right chest which has been used for chemotherapy. There has been no problems with the function of the Xqdhif-H-Leic. PAST MEDICAL HISTORY 1. AML. The patient is noted to be in remission and has been undergoing consolidative chemotherapy. 2. History of erosive esophagitis. 3. Anxiety. 4. Obesity. ALLERGIES NO KNOWN DRUG ALLERGIES. MEDICATIONS 1. Clindamycin 2. Cefepime. 3. Vancomycin. 4. Micafungin. 5. Acyclovir. Current Medications Medications (Trade) Dose Ordered Sig/Emma Route PRN Reason Start Time Stop Time Status Last Admin Dose Admin Diphenhydramine HCl (Benadryl) 25 mg UNSCH X1 PRN PO ITCHING 06/20/17 11:00 06/23/17 10:59 06/22/17 13:52 Sodium Chloride 1,000 ml @ 100 mls/hr Q10H IV 06/20/17 10:51 06/22/17 22:51 Sodium Chloride (NS Flush) 2 ml UNSCH PRN IV FLUSH FLUSH AFTER USING IV ACCESS 06/20/17 11:00 06/21/17 04:42 Sodium Chloride (NS Flush) 2 ml BID IV FLUSH 06/20/17 21:00 06/22/17 09:42 Ondansetron HCl (Zofran Inj) 4 mg Q6H PRN IVP NAUSEA OR VOMITING 06/20/17 11:00 06/23/17 09:34 Naloxone HCl (Narcan Inj) 0.4 mg UNSCH PRN IV PUSH SEE LABEL COMMENTS 06/20/17 11:00 Magnesium Hydroxide (Milk Of Magnesia Liq) 30 ml Q12H PRN PO Mild constipation 06/20/17 11:00 Cefepime HCl 2000 mg/Sodium Chloride 100 ml @ 200 mls/hr Q8H IV 06/20/17 18:00 06/23/17 04:52 Hydromorphone HCl (Dilaudid Pf Inj) 1 mg Q4H PRN IV PUSH Pain 7 to 10 06/20/17 12:15 06/23/17 09:33 Morphine Sulfate (Morphine Inj) 4 mg Q4H PRN IV PUSH Pain 3 to 6 06/20/17 12:15 06/22/17 04:50 Morphine Sulfate (Morphine Inj) 4 mg Q4H PRN IV PUSH Breakthrough Pain 06/20/17 12:15 06/22/17 09:42 Acyclovir (Zovirax) 400 mg Q12HR PO 06/20/17 21:00 06/23/17 09:32 Clonazepam (KlonoPIN) 1 mg HS PO 06/20/17 21:00 06/21/17 21:15 Fluoxetine HCl (PROzac) 20 mg DAILY PO 06/21/17 09:00 06/23/17 09:32 Sucralfate (Carafate Liq) 1 gm ACHS PO 06/20/17 17:00 06/23/17 09:32 Alprazolam (Xanax) 0.25 mg Q8H PRN PO Anxiety 06/20/17 14:00 Pharmacy Profile Note 0 ml @ 0 mls/hr UNSCH OTHER 06/20/17 14:15 Vancomycin HCl 2250 mg/Sodium Chloride 522.5 ml @ 257.5 mls/ hr Q8H IV 06/20/17 16:00 06/23/17 09:33 Acetaminophen (Tylenol) 650 mg Q4H PRN PO SEE LABEL COMMENTS 06/21/17 06:00 06/21/17 12:48 Diphenhydramine HCl (Benadryl) 25 mg Q4H PRN PO SEE LABEL COMMENTS 06/21/17 06:00 06/22/17 09:02 Acetaminophen (Tylenol) 650 mg Q4H PRN PO FEVER>100.4 OR PREMEDICATION 06/21/17 08:45 06/23/17 05:25 Clindamycin/ Sodium Chloride 50 ml @ 100 mls/hr Q8H IV 06/22/17 18:00 06/23/17 03:49 Micafungin Sodium 150 mg/Sodium Chloride 100 ml @ 100 mls/hr Q24H IV 06/22/17 15:00 06/22/17 16:46 OBJECTIVE: Vital Signs Date Time Temp Pulse Resp B/P (MAP) Pulse Ox O2 Delivery O2 Flow Rate FiO2 06/24/17 08:00 99.0 102 20 159/88 (111) 95 06/24/17 06:00 91 06/24/17 05:00 88 06/24/17 04:00 82 06/24/17 03:00 86 06/24/17 03:00 99.2 98 12 153/84 (107) 93 06/24/17 02:00 88 06/24/17 01:00 104 06/24/17 00:00 87 06/23/17 23:09 99.2 99 16 140/83 (102) 100 06/23/17 23:00 100 06/23/17 22:00 92 06/23/17 21:00 100 06/23/17 20:00 99.8 105 16 148/85 (106) 100 06/23/17 20:00 101 06/23/17 16:00 100 06/23/17 15:50 100.0 100 18 123/54 (77) 93 06/23/17 15:33 100.0 100 18 123/54 93 06/23/17 15:20 100.1 98 18 123/53 94 Laboratory Tests Test 06/23/17 04:44 06/24/17 05:50 06/24/17 10:40 White Blood Count 0.1 TH/MM3 0.1 TH/MM3 Red Blood Count 2.27 MIL/MM3 2.48 MIL/MM3 Hemoglobin 6.8 GM/DL 7.4 GM/DL Hematocrit 19.1 % 20.9 % Mean Corpuscular Volume 84.4 FL 84.5 FL Mean Corpuscular Hemoglobin 30.1 PG 29.8 PG Mean Corpuscular Hemoglobin Concent 35.7 % 35.3 % Red Cell Distribution Width 16.2 % 15.8 % Platelet Count 12 TH/MM3 8 TH/MM3 Mean Platelet Volume 8.2 FL 9.0 FL CBC Comment AUTO DIFF AUTO DIFF Differential Total Cells Counted 10 10 Lymphocytes % 90 % 100 % Monocytes % 10 % Neutrophils # (Manual) 0.0 TH/MM3 0.0 TH/MM3 Differential Comment FINAL DIFF MANUAL FINAL DIFF MANUAL Platelet Estimate RARE RARE Platelet Morphology Comment NORMAL NORMAL Red Cell Morphology Comment NORMAL Haptoglobin 450 MG/DL Laboratory Tests Test 06/23/17 04:44 06/24/17 05:50 06/24/17 10:40 Blood Urea Nitrogen 10 MG/DL 11 MG/DL Creatinine 0.86 MG/DL 0.74 MG/DL Random Glucose 110 MG/DL 109 MG/DL Total Protein 6.0 GM/DL 6.4 GM/DL Albumin 2.1 GM/DL 2.0 GM/DL Calcium Level 8.5 MG/DL 8.3 MG/DL Alkaline Phosphatase 58 U/L 58 U/L Aspartate Amino Transf (AST/SGOT) 10 U/L 7 U/L Alanine Aminotransferase (ALT/SGPT) 20 U/L 16 U/L Total Bilirubin 1.6 MG/DL 1.2 MG/DL Direct Bilirubin 0.7 MG/DL 0.5 MG/DL Sodium Level 136 MEQ/L 139 MEQ/L Potassium Level 3.2 MEQ/L 3.4 MEQ/L Chloride Level 103 MEQ/L 105 MEQ/L Carbon Dioxide Level 26.9 MEQ/L 26.4 MEQ/L Anion Gap 6 MEQ/L 8 MEQ/L Estimat Glomerular Filtration Rate 108 ML/MIN 129 ML/MIN Indirect Bilirubin 0.9 MG/DL 0.7 MG/DL Lactate Dehydrogenase 99 U/L Microbiology Date/Time Source Procedure Growth Status 06/22/17 22:40 Blood Peripheral Aerobic Blood Culture - Preliminary NO GROWTH IN 2 DAYS Resulted 06/22/17 22:40 Blood Peripheral Anaerobic Blood Culture - Preliminary NO GROWTH IN 2 DAYS Resulted 06/22/17 11:35 Blood Peripheral Aerobic Blood Culture - Preliminary NO GROWTH IN 2 DAYS Resulted 06/22/17 11:35 Blood Peripheral Anaerobic Blood Culture - Preliminary NO GROWTH IN 2 DAYS Resulted IMAGING: Face MRI 06/23/17 0000 Signed Impressions: Service Date/Time: Friday, June 23, 2017 11:57 - CONCLUSION: Superficial inflammatory changes. Given the very low white count developing abscess probably not possible. Correlation suggested. Richy Bonner MD FACR Chest X-Ray 06/20/17 0939 Signed Impressions: Service Date/Time: Tuesday, June 20, 2017 09:49 - CONCLUSION: No acute disease. Katie Hollins MD GENERAL: No acute distress. Moans with pain. HEENT: Erythematous firm mobile area of swelling at the left submental area is slightly larger. Tender. No induration. The extraocular movements grossly intact, pupils reactive to light. No icterus. Oropharynx moist mucosa without lesions. NECK: Supple. No adenopathy. The neck is obese. LUNGS: Clear, decreased breath sounds. HEART: Distant S1-S2 without murmurs, rubs or gallops. ABDOMEN: Obese, soft, no tenderness appreciated. EXTREMITIES: No clubbing or cyanosis or edema. SKIN: No diffuse rash. NEUROLOGIC: No gross focal findings. PSYCHE: Pleasant, calm and cooperative. IMPRESSION 1. Gram-negative sepsis in patient with persistent fever, chills and neutropenia and also tachycardia, and hypotension. Blood culture growing Enterobacter. Sensitive to antibiotics. Temp now lower. 2. Cellulitis of the left face. Not yet showing signs of improvement. 3. Neutropenia. 4. AML in a patient who is post consolidation chemotherapy after going into remission. 5. Thrombocytopenia and anemia. RECOMMENDATIONS 1. Continue Cefepime. 2. Continue vancomycin. 3. Continue Acyclovir. 4. Continue Clindamycin. 5. Continue Micafungin. 6. Follow the blood cultures. 7. Monitor temp. 8. Monitor the clinical status. Tre Villegas MD Jun 24, 2017 12:13
[2017-06-24] MEDS ORDERED: PHARMACY ORDERED LAB ONE (12:45)
[2017-06-24] MEDS: diphenhydrAMINE HCL 25 MG CAP PO PRN (13:15)
[2017-06-24] MEDS: ACETAMINOPHEN 325 MG TAB PO PRN ×2 (13:15→21:20)
--- NOTE | 2017-06-24 13:20 | HHI.PR ---
Subjective Remarks in no acute distress. but complaining of pain the left face. temps are overall better; Tmax 100.1. d/w the oncology. Objective Vitals Vital Signs Date Time Temp Pulse Resp B/P (MAP) Pulse Ox O2 Delivery O2 Flow Rate FiO2 06/24/17 08:00 99.0 102 20 159/88 (111) 95 06/24/17 06:00 91 06/24/17 05:00 88 06/24/17 04:00 82 06/24/17 03:00 86 06/24/17 03:00 99.2 98 12 153/84 (107) 93 06/24/17 02:00 88 06/24/17 01:00 104 06/24/17 00:00 87 06/23/17 23:09 99.2 99 16 140/83 (102) 100 06/23/17 23:00 100 06/23/17 22:00 92 06/23/17 21:00 100 06/23/17 20:00 99.8 105 16 148/85 (106) 100 06/23/17 20:00 101 06/23/17 16:00 100 06/23/17 15:50 100.0 100 18 123/54 (77) 93 06/23/17 15:33 100.0 100 18 123/54 93 06/23/17 15:20 100.1 98 18 123/53 94 I/O 06/23/17 06/23/17 06/23/17 06/24/17 06/24/17 06/24/17 07:00 15:00 23:00 07:00 15:00 23:00 Intake Total 972 ml 670 ml 2390 ml 1270 ml Output Total 650 ml 900 ml 900 ml Balance 322 ml 670 ml 1490 ml 370 ml Intake Oral 840 ml 600 ml IV Total 972 ml 670 ml 1150 ml 670 ml Packed Cells 400 ml Output Urine Total 650 ml 900 ml 900 ml Result Diagram: 06/24/17 0550 06/24/17 0550 Imaging Last Impressions Face MRI 06/23/17 0000 Signed Impressions: Service Date/Time: Friday, June 23, 2017 11:57 - CONCLUSION: Superficial inflammatory changes. Given the very low white count developing abscess probably not possible. Correlation suggested. Richy Bonner MD FACR Chest X-Ray 06/20/17 0939 Signed Impressions: Service Date/Time: Tuesday, June 20, 2017 09:49 - CONCLUSION: No acute disease. Katie Hollins MD Objective Remarks GENERAL: This is a well-nourished, well-developed patient, in no apparent distress. CARDIOVASCULAR: tachycardic with regular rhythm without murmurs, gallops, or rubs. RESPIRATORY: Clear to auscultation. Breath sounds equal bilaterally. No wheezes , rales, or rhonchi. GASTROINTESTINAL: Abdomen soft, non-tender, nondistended. Normal, active bowel sounds MUSCULOSKELETAL: Extremities without clubbing, cyanosis, or edema. NEURO: Alert & Oriented x4 to person, place, time, situation. Moves all ext x4 skin; erythema/ swelling of the left face is worse today. Medications and IVs Inpatient Medications Acetaminophen 65 ml @ 400 mls/hr ONCE ONCE IV Last administered on 06/21/17at 09:06; Start 06/21/17 at 08:45; Stop 06/21/17 at 08:54; Status DC Acetaminophen (Tylenol 650 Mg/ 20 ml Liq) 650 mg Q6H PRN PO Fever; Start at 14:00; Stop 06/21/17 at 08:46; Status DC Acetaminophen (Tylenol) 650 mg Q4H PRN PO FEVER>100.4 OR PREMEDICATION Last administered on 06/23/17at 05:25; Start 06/21/17 at 08:45 Acetaminophen/ Hydrocodone Bitart ([place] 5-325 Mg) 1 tab Q4H PRN PO PAIN SCALE 3 TO 5; Start 06/20/17 at 11:00; Stop 06/20/17 at 12:18; Status DC Acetaminophen/ Hydrocodone Bitart ([place] 10-325 Mg) 1 tab Q4H PRN PO PAIN SCALE 6 TO 10; Start 06/20/17 at 11:00; Stop 06/20/17 at 12:18; Status DC Acyclovir (Zovirax) 400 mg Q12HR PO Last administered on 06/24/17at 09:20; Start 06/20/17 at 21:00 Alprazolam (Xanax) 0.25 mg Q8H PRN PO Anxiety; Start 06/20/17 at 14:00; Stop at 09:54; Status DC Cefepime HCl 2000 mg/Sodium Chloride 100 ml @ 200 mls/hr Q8H IV Last administered on 06/24/17at 11:59; Start 06/20/17 at 18:00 Clindamycin/ Sodium Chloride 50 ml @ 100 mls/hr Q8H IV Last administered on at 09:20; Start 06/22/17 at 18:00 Clonazepam (KlonoPIN) 1 mg HS PO Last administered on 06/24/17at 01:19; Start at 21:00; Stop 06/24/17 at 09:52; Status DC Diphenhydramine HCl (Benadryl) 25 mg Q4H PRN PO premedication; Start 06/24/17 at 12:45 Fluoxetine HCl (PROzac) 20 mg DAILY PO Last administered on 06/24/17at 09:20; Start 06/21/17 at 09:00 Hydromorphone HCl (Dilaudid Pf Inj) 1 mg Q3HR PRN IV PUSH BREAKTHROUGH PAIN; Start 06/24/17 at 10:00 Ketorolac Tromethamine (Toradol Inj) 30 mg ONCE ONCE IV PUSH Last administered on 06/20/17at 10:08; Start 06/20/17 at 10:00; Stop 06/20/17 at 10:01 ; Status DC Magnesium Hydroxide (Milk Of Magnesia Liq) 30 ml Q12H PRN PO Mild constipation ; Start 06/20/17 at 11:00 Metoclopramide HCl (Reglan Inj) 10 mg ONCE ONCE IV PUSH Last administered on at 09:06; Start 06/21/17 at 08:45; Stop 06/21/17 at 08:46; Status DC Micafungin Sodium 150 mg/Sodium Chloride 100 ml @ 100 mls/hr Q24H IV Last administered on 06/23/17at 17:11; Start 06/22/17 at 15:00 Miscellaneous Information SPECIFIC LAB TO BE DRAWN:VANCOMYCIN TROUGH DATE TO... ONCE ONCE .XX ; Start 06/24/17 at 12:45; Stop 06/24/17 at 12:46; Status DC Morphine Sulfate (Morphine Inj) 4 mg Q4H PRN IV PUSH Breakthrough Pain Last administered on 06/24/17at 05:55; Start 06/20/17 at 12:15; Stop 06/24/17 at 09:34 ; Status DC Naloxone HCl (Narcan Inj) 0.4 mg UNSCH PRN IV PUSH SEE LABEL COMMENTS; Start at 11:00 Ondansetron HCl (Zofran Inj) 4 mg Q6H PRN IVP NAUSEA OR VOMITING Last administered on 06/24/17at 09:20; Start 06/20/17 at 11:00 Oxycodone HCl (Roxicodone) 5 mg Q4H PRN PO PAIN 1-10; Start 06/24/17 at 09:45; Stop 06/24/17 at 09:56; Status DC Pharmacy Profile Note 0 ml @ 0 mls/hr UNSCH OTHER ; Start 06/20/17 at 14:15 Potassium Chloride (KCl) 40 meq ONCE ONCE PO Last administered on 06/23/17at 13 :29; Start 06/23/17 at 10:45; Stop 06/23/17 at 10:46; Status DC Prochlorperazine Edisylate (Compazine Inj) 5 mg ONCE ONCE IV PUSH Last administered on 06/23/17at 04:51; Start 06/23/17 at 04:00; Stop 06/23/17 at 04:03 ; Status DC Sodium Chloride 250 ml @ 15 mls/hr ONCE ONCE IV ; Start 06/24/17 at 08:30; Stop 06/25/17 at 01:09 Sodium Chloride (NS Flush) 2 ml BID IV FLUSH Last administered on 06/24/17at 09: 20; Start 06/20/17 at 21:00 Sucralfate (Carafate Liq) 1 gm ACHS PO Last administered on 06/24/17at 09:20; Start 06/20/17 at 17:00 Trimethoprim/ Sulfamethoxazole (Bactrim Ds 800-160 Mg) 1 tab MoWeFr@09 PO Last administered on 06/21/17at 08:24; Start 06/21/17 at 09:00; Stop 06/22/17 at 09:44 ; Status DC Vancomycin HCl 2000 mg/Sodium Chloride 520 ml @ 257.5 mls/ hr Q8H IV Last administered on 06/24/17at 05:55; Start 06/23/17 at 21:00 Vancomycin HCl 2250 mg/Sodium Chloride 522.5 ml @ 257.5 mls/ hr Q8H IV Last administered on 06/23/17at 09:33; Start 06/20/17 at 16:00; Stop 06/23/17 at 11:47 ; Status DC A/P Problem List: (1) Neutropenic fever ICD Code: D70.9 - Neutropenia, unspecified; R50.81 - Fever presenting with conditions classified elsewhere Status: Resolved (2) Pancytopenia ICD Code: D61.818 - Other pancytopenia (3) AML (acute myelogenous leukemia) ICD Code: C92.00 - Acute myeloblastic leukemia, not having achieved remission Status: Chronic (4) Generalized pain ICD Code: R52 - Pain, unspecified Status: Resolved (5) Sepsis ICD Code: A41.9 - Sepsis, unspecified organism Status: Resolved Assessment and Plan A/P Sepsis Neutropenic fever bacteremia with Enterobacter facial cellulitis MRI facial soft tissue with superficial inflammatory changes continue with broad spectrum IV Antibiotics. continue with pain control. follow the cultures. ID and Oncology following. Acute myeloid leukemia Pancytopenia Thrombocytopenia Hematology/Oncology following. Follow CBC PRBC and platelet transfusion per Oncology. Hypokalemia will replace and monitor. Gen. anxiety disorder Chronic depression Xanax as needed Clonazepam at night Fluoxetine daily DVT prophylaxis SCDs Due to degree of pancytopenia avoid anticoagulation right now Discharge Planning still febrile- Oncology and ID following. not ready for discharge. Dacia Watkins MD Jun 24, 2017 13:20
[2017-06-24] MEDS ORDERED: POTASSIUM CHLORIDE 20 MEQ CONTROLLED RELEASE TAB PO ONE (13:30)
[2017-06-24] MEDS: MICAFUNGIN INJ 150 MG in SODIUM CHLORIDE 0.9% INJ 100 ML IV SCH (15:00)
[2017-06-24] MEDS: SODIUM CHLOR 0.9% 1000 ML INJ 1,000 ML IV SCH (18:06)
[2017-06-24] MEDS: PROCHLORPERAZINE INJ 10 MG/2 ML VIAL IV PUSH PRN (23:46)
[2017-06-25] VITALS (18 sets, daily range): BP systolic 137–165; BP diastolic 55–76; PULSE 74–108; RESP 14–20; TEMP 97.6–101.2; O2SAT 95–100
[2017-06-25] MEDS: HYDROmorphone HCL PF 2 MG/ML VIAL IV PUSH PRN ×7 (00:03→22:28)
[2017-06-25] MEDS: SODIUM CHLOR 0.9% 1000 ML INJ 1,000 ML IV SCH ×2 (00:03→11:12)
[2017-06-25] MEDS: CEFEPIME INJ 2,000 MG in SODIUM CHLORIDE 0.9% INJ 100 ML IV SCH (02:00)
[2017-06-25] MEDS: CLINDAMYCIN 600 MG/NS PREMIX 50 ML IV SCH ×2 (02:00→10:05)
[2017-06-25] MEDS: ONDANSETRON HCL 4 MG/2 ML VIAL IVP PRN ×3 (03:49→19:56)
[2017-06-25] MEDS: VANCOMYCIN INJ 2,000 MG in SODIUM CHLORID 0.9% 500 ML INJ 500 ML IV SCH (04:03)
[2017-06-25 05:53] LABS: BICARBONATE 27.3 MEQ/L (21.0-32.0); CALCIUM 8.1 MG/DL (8.5-10.1); CREATININE 0.63 MG/DL (0.60-1.30)
[2017-06-25 06:06] LABS: HEMOGLOBIN 7.5 GM/DL (13.0-17.0); MEAN CELL VOLUME 84.2 FL (80.0-100.0); MEAN CORPUSCULAR HEMOGLOBIN 30.3 PG (27.0-34.0); MEAN PLATELET VOLUME 8.2 FL (7.0-11.0); RED BLOOD COUNT 2.49 MIL/MM3 (4.50-5.90); RED CELL DISTRIBUTION WIDTH 15.8 % (11.6-17.2); WHITE BLOOD COUNT 0.2 TH/MM3 (4.0-11.0)
[2017-06-25 06:12] LABS: PLATELET COUNT 14 TH/MM3 (150-450)
[2017-06-25 07:49] LABS: BANDS 7 % (0-6); LYMPHOCYTES 93 % (9-44)
[2017-06-25] MEDS ORDERED: SODIUM CHLOR 0.9% 250 ML INJ 250 ML IV ONE (08:00)
[2017-06-25] MEDS: FLUoxetine HCL 20 MG CAP PO SCH (08:14)
[2017-06-25] MEDS: SUCRALFATE 1 GM/10 ML CUP PO SCH ×4 (08:14→19:54)
[2017-06-25] MEDS: SODIUM CHLORIDE 0.9% FLUSH 10 ML FLUSH IV FLUSH SCH ×2 (08:15→20:01)
[2017-06-25] MEDS: ACYCLOVIR 200 MG CAP PO SCH ×2 (08:15→20:02)
--- NOTE | 2017-06-25 09:18 | PD.ONC.PN ---
Subjective Subjective Remarks Tmax 101.2 overnight. Patient sleeping in room on approach. When I wake him he tells me he has pain in his face. no overnight events per nurse. Objective Data Date Time Temp Pulse Resp B/P (MAP) Pulse Ox O2 Delivery O2 Flow Rate FiO2 06/25/17 06:00 92 06/25/17 05:00 82 06/25/17 04:00 94 06/25/17 03:30 98.9 89 14 138/55 (82) 95 06/25/17 03:00 74 06/25/17 02:00 80 06/25/17 01:00 82 06/25/17 00:00 79 06/24/17 23:46 98.7 87 14 151/66 (94) 94 06/24/17 23:00 96 06/24/17 22:00 94 06/24/17 21:00 102 06/24/17 21:00 100.0 06/24/17 20:00 101.2 98 14 157/70 (99) 98 06/24/17 20:00 108 06/24/17 19:00 98 06/24/17 18:00 98 06/24/17 17:00 84 06/24/17 16:32 98.5 93 18 126/55 (78) 95 06/24/17 16:03 98.5 93 18 126/55 95 06/24/17 16:00 92 06/24/17 15:50 98.6 98 18 151/76 91 06/24/17 15:00 88 06/24/17 14:23 100.0 98 16 156/76 95 06/24/17 14:12 99.9 93 16 153/74 (100) 91 06/24/17 14:06 99.9 93 16 153/74 91 06/24/17 14:00 92 06/24/17 13:00 100 06/24/17 12:00 93 06/24/17 11:00 96 06/24/17 10:00 94 06/25/17 06/25/17 06/25/17 07:00 15:00 23:00 Intake Total 2290 ml Output Total 800 ml Balance 1490 ml Result Diagram: 06/25/17 0350 06/25/17 0350 Laboratory Results Laboratory Tests Test 06/24/17 10:40 06/25/17 03:50 Haptoglobin 450 MG/DL Lactate Dehydrogenase 99 U/L Vancomycin Level Trough 23.0 MCG/ML White Blood Count 0.2 TH/MM3 Red Blood Count 2.49 MIL/MM3 Hemoglobin 7.5 GM/DL Hematocrit 21.0 % Mean Corpuscular Volume 84.2 FL Mean Corpuscular Hemoglobin 30.3 PG Mean Corpuscular Hemoglobin Concent 36.0 % Red Cell Distribution Width 15.8 % Platelet Count 14 TH/MM3 Mean Platelet Volume 8.2 FL CBC Comment AUTO DIFF Differential Total Cells Counted 15 Band Neutrophils % 7 % Lymphocytes % 93 % Neutrophils # (Manual) 0.0 TH/MM3 Differential Comment FINAL DIFF MANUAL Platelet Estimate RARE Platelet Morphology Comment NORMAL Blood Urea Nitrogen 13 MG/DL Creatinine 0.63 MG/DL Random Glucose 106 MG/DL Calcium Level 8.1 MG/DL Sodium Level 138 MEQ/L Potassium Level 3.4 MEQ/L Chloride Level 104 MEQ/L Carbon Dioxide Level 27.3 MEQ/L Anion Gap 7 MEQ/L Estimat Glomerular Filtration Rate 155 ML/MIN Culture Results Microbiology Date/Time Source Procedure Growth Status 06/24/17 21:25 Blood Line Aerobic Blood Culture Pending Received 06/24/17 21:25 Blood Line Anaerobic Blood Culture Pending Received 06/22/17 22:40 Blood Peripheral Aerobic Blood Culture - Preliminary NO GROWTH IN 2 DAYS Resulted 06/22/17 22:40 Blood Peripheral Anaerobic Blood Culture - Preliminary NO GROWTH IN 2 DAYS Resulted 06/22/17 11:35 Blood Peripheral Aerobic Blood Culture - Preliminary NO GROWTH IN 2 DAYS Resulted 06/22/17 11:35 Blood Peripheral Anaerobic Blood Culture - Preliminary NO GROWTH IN 2 DAYS Resulted Administered Medications Medications (Trade) Dose Ordered Sig/Emma Route PRN Reason Start Time Stop Time Status Last Admin Dose Admin Sodium Chloride 1,000 ml @ 100 mls/hr Q10H IV 06/20/17 10:51 06/25/17 00:03 Sodium Chloride (NS Flush) 2 ml UNSCH PRN IV FLUSH FLUSH AFTER USING IV ACCESS 06/20/17 11:00 06/21/17 04:42 Sodium Chloride (NS Flush) 2 ml BID IV FLUSH 06/20/17 21:00 06/25/17 08:15 Ondansetron HCl (Zofran Inj) 4 mg Q6H PRN IVP NAUSEA OR VOMITING 06/20/17 11:00 06/25/17 03:49 Cefepime HCl 2000 mg/Sodium Chloride 100 ml @ 200 mls/hr Q8H IV 06/20/17 18:00 06/25/17 02:00 Acyclovir (Zovirax) 400 mg Q12HR PO 06/20/17 21:00 06/25/17 08:15 Fluoxetine HCl (PROzac) 20 mg DAILY PO 06/21/17 09:00 06/25/17 08:14 Sucralfate (Carafate Liq) 1 gm ACHS PO 06/20/17 17:00 06/25/17 08:14 Acetaminophen (Tylenol) 650 mg Q4H PRN PO FEVER>100.4 OR PREMEDICATION 06/21/17 08:45 06/24/17 21:20 Clindamycin/ Sodium Chloride 50 ml @ 100 mls/hr Q8H IV 06/22/17 18:00 06/25/17 02:00 Micafungin Sodium 150 mg/Sodium Chloride 100 ml @ 100 mls/hr Q24H IV 06/22/17 15:00 06/24/17 15:00 Vancomycin HCl 2000 mg/Sodium Chloride 520 ml @ 257.5 mls/ hr Q8H IV 06/23/17 21:00 06/25/17 04:03 Hydromorphone HCl (Dilaudid Pf Inj) 1 mg Q3HR PRN IV PUSH BREAKTHROUGH PAIN 06/24/17 10:00 06/25/17 08:15 Diphenhydramine HCl (Benadryl) 25 mg Q4H PRN PO premedication 06/24/17 12:45 06/24/17 13:15 Prochlorperazine Edisylate (Compazine Inj) 10 mg Q8H PRN IV PUSH severe nausea 06/24/17 23:30 06/24/17 23:46 Objective Remarks GENERAL: Young man, lying in bed, sleeping on approach. on 2L O2 via NC SKIN: Warm and dry. HEAD: Normocephalic. facial cellulitis extending from left cheek to below chin to the sublingual region. no voice changes. EYES: No injection or drainage. NECK: Supple, trachea midline. CARDIOVASCULAR: Regular rate and rhythm. RESPIRATORY: Breath sounds equal bilaterally. No accessory muscle use. GASTROINTESTINAL: Abdomen soft, non-tender, nondistended. EXTREMITIES: No cyanosis NEUROLOGICAL: awake, lethargic. no obvious focal deficit Assessment/Plan Problem List: (1) Neutropenic sepsis ICD Codes: A41.9 - Sepsis, unspecified organism; D70.9 - Neutropenia, unspecified Status: Resolved Plan: --on Vanco + Cefepime + Clindamycin + Micafungin --BC + GNR --ID following. --Influenza type A and B rapid test negative. U/A negative --CXR no infection. (2) Facial cellulitis ICD Codes: L03.211 - Cellulitis of face Plan: --continue antibiotics. --plastic surgery consulted, does not recommend intervention. Assessment 27y/o male with AML admitted for neutropenic fever. h/o Obesity. Anxiety. Erosive esophagitis. Plan 1. 1 unit pRBC 2. continue antibiotics per ID 3. continue IVF Attending Statement The exam, history, and the medical decision-making described in the above note were completed with the assistance of the mid-level provider. I reviewed and agree with the findings presented. I attest that I had a [id number] encounter with the patient on the same day, and personally performed and documented my assessment and findings in the medical record AML in CR # 1 s/p HiDAC consolidation # 3 Severe neutropenia persists ANC 0 on broad spectrum antibiotics coverage Dapto/Meropenem/Yarely and acyclovir Bacteremia with Enterobacter cloacae-- pansensitive Repeat blood cx negatove thus far. culture drawn today again left face cellulitis -facial pain CT facial bones reviewed --no abscess or deep tissue involvement 1 1unit of pRBC today pain control --patient also had issues with demanding excessive amount of IV narcotics no on Dilaudid 1mg q3 prn says he can not take any pills orally due to pain Oral maxillo-facial cosnult pending anti-emetics prn d/w rn o/n events reviewed Fartun Pagan Jun 25, 2017 09:18 Joey Santoyo MD Jun 25, 2017 20:06
[2017-06-25] MEDS: ACETAMINOPHEN 325 MG TAB PO PRN ×2 (10:48→22:26)
[2017-06-25] MEDS: diphenhydrAMINE HCL 25 MG CAP PO PRN (10:48)
--- NOTE | 2017-06-25 10:55 | HHI.IDPN ---
Note Infectious Disease Note Patient complains of severe pain in the left face. Says pain is 8/10 scale. Pain keeps him awake at night. Notes pain in his teeth at the lower jaw. Left submandibular swelling and erythema is slightly larger and now with pain at the right submandibular area. Febrile. Notes chills. Says he has headache at posterior neck. Neck is supple. No nausea. No drooling. Blood culture - no growth. 27-year-old white male who has AML. The patient has been undergoing consolidation chemotherapy and he received the third cycle of chemotherapy last week. The patient developed fever and noted a tiny lump at the left sub mandible area of the chin. He states that he squeezed it but did not get any fluid and it became slightly enlarged and erythematous. That was 4 days ago. He subsequently started getting fever and chills yesterday and he also had nausea and vomiting and diarrhea. His temperature stephanie to 103.2 yesterday morning after he was evaluated and he was admitted to the hospital. The patient has an [id number] in the right chest which has been used for chemotherapy. There has been no problems with the function of the [id number]. PAST MEDICAL HISTORY 1. AML. The patient is noted to be in remission and has been undergoing consolidative chemotherapy. 2. History of erosive esophagitis. 3. Anxiety. 4. Obesity. ALLERGIES NO KNOWN DRUG ALLERGIES. MEDICATIONS 1. Clindamycin 2. Cefepime. 3. Vancomycin. 4. Micafungin. 5. Acyclovir. Current Medications Medications (Trade) Dose Ordered Sig/Emma Route PRN Reason Start Time Stop Time Status Last Admin Dose Admin Sodium Chloride 1,000 ml @ 100 mls/hr Q10H IV 06/20/17 10:51 06/25/17 00:03 Sodium Chloride (NS Flush) 2 ml UNSCH PRN IV FLUSH FLUSH AFTER USING IV ACCESS 06/20/17 11:00 06/21/17 04:42 Sodium Chloride (NS Flush) 2 ml BID IV FLUSH 06/20/17 21:00 06/25/17 08:15 Ondansetron HCl (Zofran Inj) 4 mg Q6H PRN IVP NAUSEA OR VOMITING 06/20/17 11:00 06/25/17 03:49 Naloxone HCl (Narcan Inj) 0.4 mg UNSCH PRN IV PUSH SEE LABEL COMMENTS 06/20/17 11:00 Magnesium Hydroxide (Milk Of Magnesia Liq) 30 ml Q12H PRN PO Mild constipation 06/20/17 11:00 Cefepime HCl 2000 mg/Sodium Chloride 100 ml @ 200 mls/hr Q8H IV 06/20/17 18:00 06/25/17 02:00 Acyclovir (Zovirax) 400 mg Q12HR PO 06/20/17 21:00 06/25/17 08:15 Fluoxetine HCl (PROzac) 20 mg DAILY PO 06/21/17 09:00 06/25/17 08:14 Sucralfate (Carafate Liq) 1 gm ACHS PO 06/20/17 17:00 06/25/17 08:14 Pharmacy Profile Note 0 ml @ 0 mls/hr UNSCH OTHER 06/20/17 14:15 Acetaminophen (Tylenol) 650 mg Q4H PRN PO FEVER>100.4 OR PREMEDICATION 06/21/17 08:45 06/24/17 21:20 Clindamycin/ Sodium Chloride 50 ml @ 100 mls/hr Q8H IV 06/22/17 18:00 06/25/17 10:05 Micafungin Sodium 150 mg/Sodium Chloride 100 ml @ 100 mls/hr Q24H IV 06/22/17 15:00 06/24/17 15:00 Vancomycin HCl 2000 mg/Sodium Chloride 520 ml @ 257.5 mls/ hr Q8H IV 06/23/17 21:00 06/25/17 04:03 Hydromorphone HCl (Dilaudid Pf Inj) 1 mg Q3HR PRN IV PUSH BREAKTHROUGH PAIN 06/24/17 10:00 06/25/17 08:15 Diphenhydramine HCl (Benadryl) 25 mg Q4H PRN PO premedication 06/24/17 12:45 06/24/17 13:15 Prochlorperazine Edisylate (Compazine Inj) 10 mg Q8H PRN IV PUSH severe nausea 06/24/17 23:30 06/24/17 23:46 Sodium Chloride 250 ml @ 15 mls/hr ONCE ONCE IV 06/25/17 08:00 06/26/17 00:39 OBJECTIVE: Vital Signs Date Time Temp Pulse Resp B/P (MAP) Pulse Ox O2 Delivery O2 Flow Rate FiO2 06/25/17 06:00 92 06/25/17 05:00 82 06/25/17 04:00 94 06/25/17 03:30 98.9 89 14 138/55 (82) 95 06/25/17 03:00 74 06/25/17 02:00 80 06/25/17 01:00 82 06/25/17 00:00 79 06/24/17 23:46 98.7 87 14 151/66 (94) 94 06/24/17 23:00 96 06/24/17 22:00 94 06/24/17 21:00 102 06/24/17 21:00 100.0 06/24/17 20:00 101.2 98 14 157/70 (99) 98 06/24/17 20:00 108 06/24/17 19:00 98 06/24/17 18:00 98 06/24/17 17:00 84 06/24/17 16:32 98.5 93 18 126/55 (78) 95 06/24/17 16:03 98.5 93 18 126/55 95 06/24/17 16:00 92 06/24/17 15:50 98.6 98 18 151/76 91 06/24/17 15:00 88 06/24/17 14:23 100.0 98 16 156/76 95 06/24/17 14:12 99.9 93 16 153/74 (100) 91 06/24/17 14:06 99.9 93 16 153/74 91 06/24/17 14:00 92 06/24/17 13:00 100 06/24/17 12:00 93 06/24/17 11:00 96 Laboratory Tests Test 06/24/17 05:50 06/24/17 10:40 06/25/17 03:50 White Blood Count 0.1 TH/MM3 0.2 TH/MM3 Red Blood Count 2.48 MIL/MM3 2.49 MIL/MM3 Hemoglobin 7.4 GM/DL 7.5 GM/DL Hematocrit 20.9 % 21.0 % Mean Corpuscular Volume 84.5 FL 84.2 FL Mean Corpuscular Hemoglobin 29.8 PG 30.3 PG Mean Corpuscular Hemoglobin Concent 35.3 % 36.0 % Red Cell Distribution Width 15.8 % 15.8 % Platelet Count 8 TH/MM3 14 TH/MM3 Mean Platelet Volume 9.0 FL 8.2 FL CBC Comment AUTO DIFF AUTO DIFF Differential Total Cells Counted 10 15 Lymphocytes % 100 % 93 % Neutrophils # (Manual) 0.0 TH/MM3 0.0 TH/MM3 Differential Comment FINAL DIFF MANUAL FINAL DIFF MANUAL Platelet Estimate RARE RARE Platelet Morphology Comment NORMAL NORMAL Haptoglobin 450 MG/DL Band Neutrophils % 7 % Laboratory Tests Test 06/24/17 05:50 06/24/17 10:40 06/25/17 03:50 Blood Urea Nitrogen 11 MG/DL 13 MG/DL Creatinine 0.74 MG/DL 0.63 MG/DL Random Glucose 109 MG/DL 106 MG/DL Total Protein 6.4 GM/DL Albumin 2.0 GM/DL Calcium Level 8.3 MG/DL 8.1 MG/DL Alkaline Phosphatase 58 U/L Aspartate Amino Transf (AST/SGOT) 7 U/L Alanine Aminotransferase (ALT/SGPT) 16 U/L Total Bilirubin 1.2 MG/DL Direct Bilirubin 0.5 MG/DL Sodium Level 139 MEQ/L 138 MEQ/L Potassium Level 3.4 MEQ/L 3.4 MEQ/L Chloride Level 105 MEQ/L 104 MEQ/L Carbon Dioxide Level 26.4 MEQ/L 27.3 MEQ/L Anion Gap 8 MEQ/L 7 MEQ/L Estimat Glomerular Filtration Rate 129 ML/MIN 155 ML/MIN Indirect Bilirubin 0.7 MG/DL Lactate Dehydrogenase 99 U/L Microbiology Date/Time Source Procedure Growth Status 06/25/17 09:02 Blood Peripheral Aerobic Blood Culture Pending Received 06/25/17 09:02 Blood Peripheral Anaerobic Blood Culture Pending Received 06/24/17 21:25 Blood Line Aerobic Blood Culture Pending Received 06/24/17 21:25 Blood Line Anaerobic Blood Culture Pending Received 06/22/17 22:40 Blood Peripheral Aerobic Blood Culture - Preliminary NO GROWTH IN 2 DAYS Resulted 06/22/17 22:40 Blood Peripheral Anaerobic Blood Culture - Preliminary NO GROWTH IN 2 DAYS Resulted 06/22/17 11:35 Blood Peripheral Aerobic Blood Culture - Preliminary NO GROWTH IN 2 DAYS Resulted 06/22/17 11:35 Blood Peripheral Anaerobic Blood Culture - Preliminary NO GROWTH IN 2 DAYS Resulted IMAGING: Face MRI 06/23/17 0000 Signed Impressions: Service Date/Time: Friday, June 23, 2017 11:57 - CONCLUSION: Superficial inflammatory changes. Given the very low white count developing abscess probably not possible. Correlation suggested. Richy Bonner MD FACR Chest X-Ray 06/20/17 0939 Signed Impressions: Service Date/Time: Tuesday, June 20, 2017 09:49 - CONCLUSION: No acute disease. Katie Hollins MD PHYSICAL EXAM: GENERAL: No acute distress. Moans with pain in jaw. HEENT: Erythematous firm mobile area of swelling at the left submandibular area is slightly larger and feels indurated. Severe tenderness. Swelling and tenderness now extending towards the Right Jaw. The extraocular movements grossly intact, pupils reactive to light. No icterus. Oropharynx moist mucosa without lesions. NECK: Supple. No adenopathy. The neck is obese. LUNGS: Clear breath sounds. HEART: Distant S1-S2 without murmurs, rubs or gallops. ABDOMEN: Obese, soft, no tenderness. EXTREMITIES: No clubbing or cyanosis or edema. SKIN: No diffuse rash. NEUROLOGIC: No gross focal findings. PSYCHE: Pleasant, calm and cooperative. IMPRESSION 1. Enterobacter sepsis in patient with persistent fever, chills and neutropenia and also tachycardia, and hypotension. 2. Cellulitis of the left face. Not showing signs of improvement. Worse swelling. 3. Neutropenia. 4. AML in a patient who is post consolidation chemotherapy after going into remission. 5. Thrombocytopenia and anemia. RECOMMENDATIONS 1. Change Cefepime to Meropenem. concern for resistant organism. I do not think the Enterobacter in the blood is the cause of the facial swelling and patient WBC too low for abscess development. 2. Change vancomycin to Daptomycin to cover VRE also. 3. Continue Acyclovir. 4. Stop Clindamycin. 5. Continue Micafungin for fungal coverage. May need to change to Ampho B if not improving. 6. Follow the blood cultures. 7. Monitor temp. 8. Monitor the clinical status. 9. Will discuss with [facility] surgeon re evaluation. He complains of dental pain. 10. Will discuss with Plastic surgeon who is following re aspiration if possible. Tre Villegas MD Jun 25, 2017 10:55
[2017-06-25] MEDS ORDERED: ASP: Other exception documentation: ( ) PRN (11:00)
[2017-06-25] MEDS ORDERED: MISCELLANEOUS PHARMACY INFORMATION XX PRN ×2 (11:00)
[2017-06-25] MEDS ORDERED: MEROPENEM INJ 2,000 MG in SODIUM CHLORIDE 0.9% INJ 100 ML IV SCH (11:00)
[2017-06-25] MEDS: MEROPENEM INJ 2,000 MG in SODIUM CHLORIDE 0.9% INJ 100 ML IV SCH ×2 (12:27→20:01)
[2017-06-25] MEDS: DAPTOmycin INJ 900 MG in SODIUM CHLORIDE 0.9% INJ 100 ML IV SCH (14:01)
[2017-06-25] MEDS ORDERED: IOHEXOL 350 MG/ML 10 ML VIAL (for RAD DIAG) IVCONTRAST ONE (16:20)
[2017-06-25] MEDS: MICAFUNGIN INJ 150 MG in SODIUM CHLORIDE 0.9% INJ 100 ML IV SCH (16:45)
--- NOTE | 2017-06-25 18:18 | HHI.PR ---
Subjective Remarks In bed, looks diaphoretic, still complaining of pain in his face Objective Vitals Vital Signs Date Time Temp Pulse Resp B/P (MAP) Pulse Ox O2 Delivery O2 Flow Rate FiO2 06/25/17 16:00 99.1 75 18 165/76 (105) 100 06/25/17 14:41 99.1 75 18 165/76 100 06/25/17 12:37 97.6 80 14 137/70 (92) 99 06/25/17 11:48 99.3 85 20 154/66 99 06/25/17 11:32 99.5 87 18 148/68 98 06/25/17 06:00 92 06/25/17 05:00 82 06/25/17 04:00 94 06/25/17 03:30 98.9 89 14 138/55 (82) 95 06/25/17 03:00 74 06/25/17 02:00 80 06/25/17 01:00 82 06/25/17 00:00 79 06/24/17 23:46 98.7 87 14 151/66 (94) 94 06/24/17 23:00 96 06/24/17 22:00 94 06/24/17 21:00 102 06/24/17 21:00 100.0 06/24/17 20:00 101.2 98 14 157/70 (99) 98 06/24/17 20:00 108 06/24/17 19:00 98 I/O 06/24/17 06/24/17 06/24/17 06/25/17 06/25/17 06/25/17 07:00 15:00 23:00 07:00 15:00 23:00 Intake Total 1270 ml 536 ml 1030 ml 2290 ml 450 ml Output Total 900 ml 1200 ml 800 ml Balance 370 ml 536 ml -170 ml 1490 ml 450 ml Intake Oral 600 ml 480 ml 720 ml IV Total 670 ml 165 ml 150 ml 1570 ml Packed Cells 400 ml 400 ml Platelets 371 ml Blood Product IV Normal Saline Flush 50 ml Output Urine Total 900 ml 1000 ml 800 ml Emesis 200 ml # Bowel Movements 1 Result Diagram: 06/25/17 0350 06/25/17 0350 Objective Remarks GENERAL: This morbidly obese 27 years old patient in mild distress due to pain in his face CARDIOVASCULAR: Regular rate and rhythm without murmurs, gallops, or rubs. RESPIRATORY: Fair air entry bilaterally. No wheezes, rales, or rhonchi. GASTROINTESTINAL: Abdomen soft, non-tender, nondistended. Normal active bowel sounds MUSCULOSKELETAL: Extremities without clubbing, cyanosis, or edema. NEURO: Alert & Oriented x4 to person, place, time, situation. Moves all ext x4 A/P Problem List: (1) Neutropenic fever ICD Code: D70.9 - Neutropenia, unspecified; R50.81 - Fever presenting with conditions classified elsewhere Status: Resolved (2) Pancytopenia ICD Code: D61.818 - Other pancytopenia (3) AML (acute myelogenous leukemia) ICD Code: C92.00 - Acute myeloblastic leukemia, not having achieved remission Status: Chronic (4) Generalized pain ICD Code: R52 - Pain, unspecified Status: Resolved (5) Sepsis ICD Code: A41.9 - Sepsis, unspecified organism Status: Resolved Assessment and Plan 06/25: Continues to have pain in the face, continue off antibiotic, follow with oncologist, still neutropenic, CBC in a.m., monitor vital Initial A/P Sepsis Neutropenic fever bacteremia with Enterobacter facial cellulitis MRI facial soft tissue with superficial inflammatory changes continue with broad spectrum IV Antibiotics. continue with pain control. follow the cultures. ID and Oncology following. Acute myeloid leukemia Pancytopenia Thrombocytopenia Hematology/Oncology following. Follow CBC PRBC and platelet transfusion per Oncology. Hypokalemia will replace and monitor. Gen. anxiety disorder Chronic depression Xanax as needed Clonazepam at night Fluoxetine daily DVT prophylaxis SCDs Due to degree of pancytopenia avoid anticoagulation right now Kevin Montiel MD Jun 25, 2017 18:18
--- NOTE | 2017-06-25 19:48 | RADRPT ---
EXAM DATE/TIME: 06/25/2017 15:55 [facility] COMPARISON: No previous studies available for comparison. INDICATIONS : Evaluate for drainable fluid. IV CONTRAST: 64 cc Omnipaque 350 (iohexol) IV RADIATION DOSE: 56.76 CTDIvol (mGy) MEDICAL HISTORY : Gastroesophageal reflux disease. Leukemia. Lymphocytosis, Thrombocytopenia, SURGICAL HISTORY : Port placement ENCOUNTER: Initial ACUITY: 1 day PAIN SCALE: 8/10 LOCATION: Bilateral facial TECHNIQUE: Volumetric scanning of the facial bones was performed. Using automated exposure control and adjustme nt of the mA and/or kV according to patient size, radiation dose was kept as low as reasonably achiev able to obtain optimal diagnostic quality images. DICOM format image data is available electronicall y for review and comparison. FINDINGS: There is a fairly extensive cellulitis in the left neck extending into the left mandibular region. Th ere is skin thickening. There is a 1.7 cm left submental lymph node that is probably reactive. Other mildly enlarged lymph nodes are present in the left neck probably also likely reactive. No discrete o r drainable fluid collections present. No evidence for osteomyelitis. No acute bony abnormalities. CONCLUSION: 1. Left-sided cellulitis as above without discrete or drainable fluid collections to suggest focal ab scess. Mildly enlarged reactive lymph nodes in the left submental region and left cervical region. Leander Fiore MD on June 25, 2017 at 19:44 Board Certified Radiologist. This report was verified electronically.
[2017-06-25] MEDS: PROCHLORPERAZINE INJ 10 MG/2 ML VIAL IV PUSH PRN (21:58)
[2017-06-26] VITALS (12 sets, daily range): BP systolic 125–166; BP diastolic 65–80; PULSE 70–103; RESP 9–23; TEMP 97.4–102.2; O2SAT 93–98
[2017-06-26] MEDS: ONDANSETRON HCL 4 MG/2 ML VIAL IVP PRN ×3 (01:24→18:15)
[2017-06-26] MEDS: HYDROmorphone HCL PF 2 MG/ML VIAL IV PUSH PRN ×7 (01:25→21:31)
[2017-06-26] MEDS: SODIUM CHLOR 0.9% 1000 ML INJ 1,000 ML IV SCH ×2 (01:26→12:17)
[2017-06-26] MEDS: MEROPENEM INJ 2,000 MG in SODIUM CHLORIDE 0.9% INJ 100 ML IV SCH ×3 (04:35→21:19)
[2017-06-26 06:00] LABS: ALBUMIN 1.9 GM/DL (3.4-5.0); BICARBONATE 28.1 MEQ/L (21.0-32.0); CALCIUM 8.4 MG/DL (8.5-10.1); CREATININE 0.64 MG/DL (0.60-1.30); DIRECT BILIRUBIN ADULT 0.4 MG/DL (0.0-0.2)
[2017-06-26 06:03] LABS: INDIRECT BILIRUBIN 0.8 MG/DL (0.0-0.8); TOTAL BILIRUBIN ADULT 1.2 MG/DL (0.2-1.0); TOTAL PROTEIN 6.3 GM/DL (6.4-8.2)
[2017-06-26 06:36] LABS: HEMATOCRIT 24.2 % (39.0-51.0); HEMOGLOBIN 8.4 GM/DL (13.0-17.0); MEAN CELL VOLUME 84.7 FL (80.0-100.0); MEAN CORPUSCULAR HEMOGLOBIN 29.4 PG (27.0-34.0); MEAN CORPUSCULAR HGB CONC 34.7 % (32.0-36.0); MEAN PLATELET VOLUME 9.1 FL (7.0-11.0); RED BLOOD COUNT 2.86 MIL/MM3 (4.50-5.90); RED CELL DISTRIBUTION WIDTH 15.7 % (11.6-17.2); WHITE BLOOD COUNT 0.2 TH/MM3 (4.0-11.0)
[2017-06-26 07:03] LABS: PLATELET COUNT 10 TH/MM3 (150-450)
[2017-06-26] MEDS ORDERED: SODIUM CHLOR 0.9% 250 ML INJ 250 ML IV ONE (08:15)
[2017-06-26] MEDS: ACYCLOVIR 200 MG CAP PO SCH ×2 (09:00→21:19)
[2017-06-26] MEDS: SUCRALFATE 1 GM/10 ML CUP PO SCH ×4 (09:29→21:19)
[2017-06-26] MEDS: SODIUM CHLORIDE 0.9% FLUSH 10 ML FLUSH IV FLUSH SCH ×2 (09:30→18:15)
[2017-06-26 09:49] LABS: BANDS 40 % (0-6); LYMPHOCYTES 24 % (9-44); METAMYELOCYTES 4 % (0-1); MONOCYTES 12 % (0-8); MYELOCYTES 4 % (0-0); POLYS (SEG NEUTROPHILS) 16 % (16-70)
[2017-06-26 09:50] LABS: NEUTROPHIL # MANUAL DIFF 0.1 TH/MM3 (1.8-7.7)
--- NOTE | 2017-06-26 10:40 | PD.ONC.PN ---
Subjective Subjective Remarks Tmax 101.2 overnight. Patient complaining of facial pain. He is otherwise without complaints. No overnight events per nursing staff. Objective Data Date Time Temp Pulse Resp B/P (MAP) Pulse Ox O2 Delivery O2 Flow Rate FiO2 06/26/17 06:00 82 06/26/17 05:00 82 06/26/17 04:00 98.9 92 16 166/80 (108) 98 06/26/17 04:00 70 06/26/17 03:00 78 06/26/17 02:00 72 06/26/17 01:00 86 06/26/17 00:00 98.5 98 16 125/73 (90) 97 06/26/17 00:00 93 06/25/17 23:00 100.9 06/25/17 23:00 88 06/25/17 22:00 101.2 06/25/17 22:00 108 06/25/17 21:00 90 06/25/17 20:00 108 06/25/17 20:00 100.4 90 17 165/74 (104) 96 06/25/17 19:00 90 06/25/17 16:00 99.1 75 18 165/76 (105) 100 06/25/17 14:41 99.1 75 18 165/76 100 06/25/17 12:37 97.6 80 14 137/70 (92) 99 06/25/17 11:48 99.3 85 20 154/66 99 06/25/17 11:32 99.5 87 18 148/68 98 06/26/17 06/26/17 06/26/17 07:00 15:00 23:00 Intake Total 1900 ml Output Total 1500 ml Balance 400 ml Result Diagram: 06/26/17 0605 06/26/17 0430 Laboratory Results Laboratory Tests Test 06/26/17 04:30 06/26/17 06:05 Blood Urea Nitrogen 12 MG/DL Creatinine 0.64 MG/DL Random Glucose 94 MG/DL Total Protein 6.3 GM/DL Albumin 1.9 GM/DL Calcium Level 8.4 MG/DL Alkaline Phosphatase 65 U/L Aspartate Amino Transf (AST/SGOT) 4 U/L Alanine Aminotransferase (ALT/SGPT) 15 U/L Total Bilirubin 1.2 MG/DL Direct Bilirubin 0.4 MG/DL Sodium Level 139 MEQ/L Potassium Level 3.5 MEQ/L Chloride Level 104 MEQ/L Carbon Dioxide Level 28.1 MEQ/L Anion Gap 7 MEQ/L Estimat Glomerular Filtration Rate 152 ML/MIN Indirect Bilirubin 0.8 MG/DL White Blood Count 0.2 TH/MM3 Red Blood Count 2.86 MIL/MM3 Hemoglobin 8.4 GM/DL Hematocrit 24.2 % Mean Corpuscular Volume 84.7 FL Mean Corpuscular Hemoglobin 29.4 PG Mean Corpuscular Hemoglobin Concent 34.7 % Red Cell Distribution Width 15.7 % Platelet Count 10 TH/MM3 Mean Platelet Volume 9.1 FL CBC Comment AUTO DIFF Differential Total Cells Counted 25 Neutrophils % (Manual) 16 % Band Neutrophils % 40 % Lymphocytes % 24 % Monocytes % 12 % Neutrophils # (Manual) 0.1 TH/MM3 Metamyelocytes 4 % Myelocytes 4 % Differential Comment FINAL DIFF MANUAL Platelet Estimate RARE Platelet Morphology Comment NORMAL Culture Results Microbiology Date/Time Source Procedure Growth Status 06/25/17 09:02 Blood Peripheral Aerobic Blood Culture Pending Received 06/25/17 09:02 Blood Peripheral Anaerobic Blood Culture Pending Received 06/24/17 21:25 Blood Line Aerobic Blood Culture - Preliminary NO GROWTH IN 1 DAY Resulted 06/24/17 21:25 Blood Line Anaerobic Blood Culture - Preliminary NO GROWTH IN 1 DAY Resulted Imaging Studies Last [address] 06/25/17 1431 Signed Impressions: Service Date/Time: Sunday, June 25, 2017 15:55 - CONCLUSION: 1. Left- sided cellulitis as above without discrete or drainable fluid collections to suggest focal abscess. Mildly enlarged reactive lymph nodes in the left submental region and left cervical region. Leander Fiore MD Administered Medications Medications (Trade) Dose Ordered Sig/Emma Route PRN Reason Start Time Stop Time Status Last Admin Dose Admin Sodium Chloride 1,000 ml @ 100 mls/hr Q10H IV 06/20/17 10:51 06/26/17 01:26 Sodium Chloride (NS Flush) 2 ml UNSCH PRN IV FLUSH FLUSH AFTER USING IV ACCESS 06/20/17 11:00 06/21/17 04:42 Sodium Chloride (NS Flush) 2 ml BID IV FLUSH 06/20/17 21:00 06/26/17 09:30 Ondansetron HCl (Zofran Inj) 4 mg Q6H PRN IVP NAUSEA OR VOMITING 06/20/17 11:00 06/26/17 07:20 Acyclovir (Zovirax) 400 mg Q12HR PO 06/20/17 21:00 06/25/17 20:02 Fluoxetine HCl (PROzac) 20 mg DAILY PO 06/21/17 09:00 06/25/17 08:14 Sucralfate (Carafate Liq) 1 gm ACHS PO 06/20/17 17:00 06/26/17 09:29 Acetaminophen (Tylenol) 650 mg Q4H PRN PO FEVER>100.4 OR PREMEDICATION 06/21/17 08:45 06/25/17 22:26 Micafungin Sodium 150 mg/Sodium Chloride 100 ml @ 100 mls/hr Q24H IV 06/22/17 15:00 06/25/17 16:45 Hydromorphone HCl (Dilaudid Pf Inj) 1 mg Q3HR PRN IV PUSH BREAKTHROUGH PAIN 06/24/17 10:00 06/26/17 07:23 Diphenhydramine HCl (Benadryl) 25 mg Q4H PRN PO premedication 06/24/17 12:45 06/25/17 10:48 Prochlorperazine Edisylate (Compazine Inj) 10 mg Q8H PRN IV PUSH severe nausea 06/24/17 23:30 06/25/17 21:58 Daptomycin 900 mg/ Sodium Chloride 100 ml @ 200 mls/hr Q24H IV 06/25/17 13:00 06/25/17 14:01 Meropenem 2000 mg/ Sodium Chloride 100 ml @ 200 mls/hr Q8H IV 06/25/17 12:00 06/26/17 04:35 Objective Remarks GENERAL: Young man lying supine in bed bed, complaining of pain in his face SKIN: Warm and dry. HEAD: Normocephalic. 3mm pustule, left face with erythema extending throughout left cheek, beneath left chin and to the right side of the face. there are now also streaks extending to just medial to the patient's port. EYES: No injection or drainage. NECK: Supple, trachea midline. CARDIOVASCULAR: Regular rate and rhythm. RESPIRATORY: Breath sounds equal bilaterally. No accessory muscle use. GASTROINTESTINAL: Abdomen soft, non-tender, nondistended. EXTREMITIES: No cyanosis NEUROLOGICAL: awake but fatigued. normal speech. no obvious focal deficit. Assessment/Plan Problem List: (1) Neutropenic sepsis ICD Codes: A41.9 - Sepsis, unspecified organism; D70.9 - Neutropenia, unspecified Status: Resolved Plan: --on Meropenem + Daptomycin + Micafungin + Zovirax --worsening facial cellulitis. --BC + GNR --ID following. --Influenza type A and B rapid test negative. U/A negative --CXR no infection. (2) Facial cellulitis ICD Codes: L03.211 - Cellulitis of face Plan: --continue antibiotics. --plastic surgery consulted, does not recommend intervention. --oromaxillofacial and ENT have both been consulted. Assessment 27y/o male with AML admitted for neutropenic fever. h/o Obesity. Anxiety. Erosive esophagitis. Plan 1. 1 unit platelets 2. continue IVF 3. consult ENT. 4. continue antibiotics Attending Statement The exam, history, and the medical decision-making described in the above note were completed with the assistance of the mid-level provider. I reviewed and agree with the findings presented. I attest that I had a [id number] encounter with the patient on the same day, and personally performed and documented my assessment and findings in the medical record. Febrile neutropenia with cellulitis, neck and upper chest worsening over last 4 days. Discussed with patient who request I call his mother, called mother about the concern for cellulitis. There is no fluid collection, reviewed images, imaging frequently for any site to drain or culture, but there is none. Surgery has been consulted. Discussed w/ Dr. Montiel, Dr. Montiel and Dr. Daley, closer monitoring in ICU setting. Start GCSF for support, encourage Bm recovery. Supportive transfusion, HLA matched platelets when available. Pt in remission from AML, complications from cytopenia post his consolidation. Fartun Pagan Jun 26, 2017 10:40 Abiola Camilo MD Jun 26, 2017 14:13
[2017-06-26] MEDS: FLUoxetine HCL 20 MG CAP PO SCH (12:25)
--- NOTE | 2017-06-26 12:57 | HHI.IDPN ---
Subjective Subjective Remarks ID X cover for Dr Mcgarry pt known to me from previous admission 27 yo with leukemia sp chemo, neutropenic ANC 200 developped phlegmon of neck/submadibuar area getting worse locally with more swelling fevers up to 101 in 24 hrs More swollen tender dw radiologist: no fluid collections (T done yday) Antibiotics dapto meropenem micafungin Past Medical History AML Allergies: Coded Allergies: No Known Allergies (Verified Allergy, Unknown, 05/28/17) Objective . Vital Signs Date Time Temp Pulse Resp B/P (MAP) Pulse Ox O2 Delivery O2 Flow Rate FiO2 06/26/17 09:20 98.8 103 16 151/78 (102) 96 06/26/17 06:00 82 06/26/17 05:00 82 06/26/17 04:00 98.9 92 16 166/80 (108) 98 06/26/17 04:00 70 06/26/17 03:00 78 06/26/17 02:00 72 06/26/17 01:00 86 06/26/17 00:00 98.5 98 16 125/73 (90) 97 06/26/17 00:00 93 06/25/17 23:00 100.9 06/25/17 23:00 88 06/25/17 22:00 101.2 06/25/17 22:00 108 06/25/17 21:00 90 06/25/17 20:00 108 06/25/17 20:00 100.4 90 17 165/74 (104) 96 06/25/17 19:00 90 06/25/17 16:00 99.1 75 18 165/76 (105) 100 06/25/17 14:41 99.1 75 18 165/76 100 . Laboratory Tests Test 06/25/17 03:50 06/26/17 06:05 White Blood Count 0.2 TH/MM3 0.2 TH/MM3 Red Blood Count 2.49 MIL/MM3 2.86 MIL/MM3 Hemoglobin 7.5 GM/DL 8.4 GM/DL Hematocrit 21.0 % 24.2 % Mean Corpuscular Volume 84.2 FL 84.7 FL Mean Corpuscular Hemoglobin 30.3 PG 29.4 PG Mean Corpuscular Hemoglobin Concent 36.0 % 34.7 % Red Cell Distribution Width 15.8 % 15.7 % Platelet Count 14 TH/MM3 10 TH/MM3 Mean Platelet Volume 8.2 FL 9.1 FL CBC Comment AUTO DIFF AUTO DIFF Differential Total Cells Counted 15 25 Band Neutrophils % 7 % 40 % Lymphocytes % 93 % 24 % Neutrophils # (Manual) 0.0 TH/MM3 0.1 TH/MM3 Differential Comment FINAL DIFF MANUAL FINAL DIFF MANUAL Platelet Estimate RARE RARE Platelet Morphology Comment NORMAL NORMAL Neutrophils % (Manual) 16 % Monocytes % 12 % Metamyelocytes 4 % Myelocytes 4 % Laboratory Tests Test 06/25/17 03:50 06/26/17 04:30 Blood Urea Nitrogen 13 MG/DL 12 MG/DL Creatinine 0.63 MG/DL 0.64 MG/DL Random Glucose 106 MG/DL 94 MG/DL Calcium Level 8.1 MG/DL 8.4 MG/DL Sodium Level 138 MEQ/L 139 MEQ/L Potassium Level 3.4 MEQ/L 3.5 MEQ/L Chloride Level 104 MEQ/L 104 MEQ/L Carbon Dioxide Level 27.3 MEQ/L 28.1 MEQ/L Anion Gap 7 MEQ/L 7 MEQ/L Estimat Glomerular Filtration Rate 155 ML/MIN 152 ML/MIN Total Protein 6.3 GM/DL Albumin 1.9 GM/DL Alkaline Phosphatase 65 U/L Aspartate Amino Transf (AST/SGOT) 4 U/L Alanine Aminotransferase (ALT/SGPT) 15 U/L Total Bilirubin 1.2 MG/DL Direct Bilirubin 0.4 MG/DL Indirect Bilirubin 0.8 MG/DL Microbiology Date/Time Source Procedure Growth Status 06/25/17 09:02 Blood Peripheral Aerobic Blood Culture - Preliminary NO GROWTH IN 1 DAY Resulted 06/25/17 09:02 Blood Peripheral Anaerobic Blood Culture - Preliminary NO GROWTH IN 1 DAY Resulted 06/24/17 21:25 Blood Line Aerobic Blood Culture - Preliminary NO GROWTH IN 2 DAYS Resulted 06/24/17 21:25 Blood Line Anaerobic Blood Culture - Preliminary NO GROWTH IN 2 DAYS Resulted Imaging Last Impressions Maxillofacial CT 06/25/17 1431 Signed Impressions: Service Date/Time: Sunday, June 25, 2017 15:55 - CONCLUSION: 1. Left- sided cellulitis as above without discrete or drainable fluid collections to suggest focal abscess. Mildly enlarged reactive lymph nodes in the left submental region and left cervical region. Leander Fiore MD Face MRI 06/23/17 0000 Signed Impressions: Service Date/Time: Friday, June 23, 2017 11:57 - CONCLUSION: Superficial inflammatory changes. Given the very low white count developing abscess probably not possible. Correlation suggested. Richy Bonner MD FACR Chest X-Ray 06/20/17 0939 Signed Impressions: Service Date/Time: Tuesday, June 20, 2017 09:49 - CONCLUSION: No acute disease. Katie Hollins MD Physical Exam CONSTITUTIONAL/GENERAL: This is an adequately nourished patient, in no apparent distress. TUBES/LINES/DRAINS: SKIN: No jaundice, rashes, or lesions. Ecchymoses on upper extremities. No wounds seen anteriorly. Skin temperature appropriate. Not diaphoretic. HEAD: Atraumatic. Normocephalic. EYES: Pupils equal and round and reactive. Extraocular motions intact. No scleral icterus. No injection or drainage. Fundi not examined. ENT: Hearing grossly normal. Nose without bleeding or purulent drainage. Throat without visible erythema, exudates, masses, or lesions. NECK: Trachea midline. Supple, nontender. No palpable thyroid enlargement or nodularity. STATUS LOCALIS: marked indurated tender red area more prominent on the L but also present on the R no fluctuance or drainage CARDIOVASCULAR: Regular rate and rhythm without murmurs, gallops, or rubs. No JVD. Peripheral pulses symmetric. RESPIRATORY/CHEST: Symmetric, unlabored respirations. Clear to auscultation. Breath sounds equal bilaterally. No wheezes, rales, or rhonchi. GASTROINTESTINAL: Abdomen soft, non-tender, nondistended. No hepato-splenomegaly , or palpable masses. No guarding. Bowel sounds present. GENITOURINARY: Without palpable bladder distension. MUSCULOSKELETAL: Extremities without clubbing, cyanosis, or edema. No joint tenderness or effusion noted. LYMPHATICS: No palpable cervical or supraclavicular adenopathy. NEUROLOGICAL: Awake and alert. Motor and sensory grossly within normal limits. Follows commands. Cognitively sharp. Moves all extremities. PSYCHIATRIC: No obvious anxiety/depression. no apparent hallucinations or other psychotic thought process. Assessment & Plan Remarks IMPRESSION 1. Enterobacter sepsis in patient with persistent fever, chills and neutropenia and also tachycardia, and hypotension. 2. Cellulitis of the left face. Not showing signs of improvement. Worse swelling. worsening despite of adequate coverage 3. Neutropenia. 4. AML in a patient who is post consolidation chemotherapy after going into remission. 5. Thrombocytopenia and anemia. RECOMMENDATIONS 1. Cont Meropenem for now concern for resistant organism. 2. Change vancomycin to Daptomycin to cover VRE also. 3. Continue Acyclovir. 4. Change Micafungin to voriconazole 5. Follow the blood cultures. 7. Monitor temp. 8. Monitor the clinical status. 9.dw radiologist: due to phlegmonous nature aspiration not possibl;e; sgg to repeat CT tomorrow if clin indicated dw Dr Ton payan RN dw radiologist Alana Morrison MD Jun 26, 2017 12:57
[2017-06-26] MEDS: DAPTOmycin INJ 900 MG in SODIUM CHLORIDE 0.9% INJ 100 ML IV SCH (13:41)
[2017-06-26] MEDS ORDERED: FILGRASTIM INJ 480 MCG in DEXTROSE 5% IN WATER INJ 50 ML IV SCH ×2 (14:00)
[2017-06-26 14:49] LABS: IMMUNOGLOBULIN A 221 MG/DL (71-391); IMMUNOGLOBULIN G 731 MG/DL (650-1600)
[2017-06-26 15:19] LABS: IMMUNOGLOBULIN M 8 MG/DL (41-254)
[2017-06-26] MEDS: FILGRASTIM INJ 480 MCG in DEXTROSE 5% IN WATER INJ 25 ML IV SCH ×2 (15:26)
[2017-06-26] MEDS: VORICONAZOLE IV SCH (16:03)
[2017-06-26] MEDS: SODIUM CHLOR 0.9% IV SCH (16:03)
--- NOTE | 2017-06-26 16:42 | HHI.PR ---
Subjective Remarks Patient still in pain, WBC still at 0.2, still running fever Discussed with oncologist hand therapist she recommended transfer to ICU Objective Vitals Vital Signs Date Time Temp Pulse Resp B/P (MAP) Pulse Ox O2 Delivery O2 Flow Rate FiO2 06/26/17 16:00 102.2 103 22 145/67 (93) 93 06/26/17 12:34 99.5 92 16 148/71 (96) 94 06/26/17 09:20 98.8 103 16 151/78 (102) 96 06/26/17 06:00 82 06/26/17 05:00 82 06/26/17 04:00 98.9 92 16 166/80 (108) 98 06/26/17 04:00 70 06/26/17 03:00 78 06/26/17 02:00 72 06/26/17 01:00 86 06/26/17 00:00 98.5 98 16 125/73 (90) 97 06/26/17 00:00 93 06/25/17 23:00 100.9 06/25/17 23:00 88 06/25/17 22:00 101.2 06/25/17 22:00 108 06/25/17 21:00 90 06/25/17 20:00 108 06/25/17 20:00 100.4 90 17 165/74 (104) 96 06/25/17 19:00 90 I/O 06/25/17 06/25/17 06/25/17 06/26/17 06/26/17 06/26/17 07:00 15:00 23:00 07:00 15:00 23:00 Intake Total 2910 ml 1750 ml 1260 ml 1900 ml 200 ml Output Total 800 ml 850 ml 1500 ml Balance 2110 ml 1750 ml 410 ml 400 ml 200 ml Intake Oral 720 ml 1060 ml 800 ml IV Total 2190 ml 1300 ml 200 ml 1100 ml 200 ml Packed Cells 400 ml Blood Product IV Normal Saline Flush 50 ml Output Urine Total 800 ml 850 ml 1500 ml # Bowel Movements 0 Result Diagram: 06/26/1760406/26/17 043 Objective Remarks GENERAL: This morbidly obese 27 years old patient in mild distress due to pain in his face CARDIOVASCULAR: Regular rate and rhythm without murmurs, gallops, or rubs. RESPIRATORY: Fair air entry bilaterally. No wheezes, rales, or rhonchi. GASTROINTESTINAL: Abdomen soft, non-tender, nondistended. Normal active bowel sounds MUSCULOSKELETAL: Extremities without clubbing, cyanosis, or edema. NEURO: Alert & Oriented x4 to person, place, time, situation. Moves all ext x4 A/P Problem List: (1) Neutropenic fever ICD Code: D70.9 - Neutropenia, unspecified; R50.81 - Fever presenting with conditions classified elsewhere Status: Resolved (2) Pancytopenia ICD Code: D61.818 - Other pancytopenia (3) AML (acute myelogenous leukemia) ICD Code: C92.00 - Acute myeloblastic leukemia, not having achieved remission Status: Chronic (4) Generalized pain ICD Code: R52 - Pain, unspecified Status: Resolved (5) Sepsis ICD Code: A41.9 - Sepsis, unspecified organism Status: Resolved Assessment and Plan 06/25: Continues to have pain in the face, continue off antibiotic, follow with oncologist, still neutropenic, CBC in a.m., monitor vital 06/26: Discussed with oncologist, WBC still at 0.2, transfer to ICU, continue IV antibiotic, repeat CBC in a.m. and monitor vitals Initial A/P Sepsis Neutropenic fever bacteremia with Enterobacter facial cellulitis MRI facial soft tissue with superficial inflammatory changes continue with broad spectrum IV Antibiotics. continue with pain control. follow the cultures. ID and Oncology following. Acute myeloid leukemia Pancytopenia Thrombocytopenia Hematology/Oncology following. Follow CBC PRBC and platelet transfusion per Oncology. Hypokalemia will replace and monitor. Gen. anxiety disorder Chronic depression Xanax as needed Clonazepam at night Fluoxetine daily DVT prophylaxis SCDs Due to degree of pancytopenia avoid anticoagulation right now Kevin Montiel MD Jun 26, 2017 16:42
--- NOTE | 2017-06-26 19:30 | MB ---
cc: DAVID LEUNG MD DATE OF CONSULTATION 06/26/17 CHIEF COMPLAINT Left facial cellulitis HISTORY OF PRESENT ILLNESS The patient is a pleasant 27-year-old male with a complicated medical history of acute myeloblastic leukemia and neutropenia as well as anemia who presented with left facial cellulitis. She developed a phlegmon of the neck in the submandibular area which has been getting worse, but subjectively less swelling overnight. However, his fevers have been improving. The patient states that last night during the studies that were being done direct pressure applied to his face resulted in increased pain and swelling if the face, but he says it has gotten less of an issue overnight. He is on numerous strong antibiotics for his neutropenia and his severe cellulitis. She has no acute airway issues. He is well-developed with a large BMI. Examination revealed erythema and edema on the left side of his face. Demarcation drawn around his face and it appears to be less swollen than it was yesterday. Father certainly agrees with this, was at bedtime for much of the period. There is no active drainage. There is no direct fluctuance either. His labs reveal him to be neutropenic and anemic. Flexible fiberoptic laryngoscopy revealed airway being widely patent and vocal cords were well visualized. There was no impinging of the airway currently. Also of note with his oral cavity examination, his floor of mouth was soft and his dentition appeared in adequate repair. CAT scan of the face with contrast performed afternoon revealed fairly extensive cellulitis of the left neck extending into the left mandibular region with skin thickening. There was noted to be reactive lymph nodes as well. There was no discernible fluid collection. There is no evidence of osteomyelitis nor were there any bony abnormalities. ASSESSMENT Left facial cellulitis with no fluid collection to suggest abscess. Due to the girth of the patient's baseline neck, some of the discrete anatomy may obscure but there is definitely no evidence of any abscess formation. However, because of his underlying and him recently undergoing chemotherapy, I certainly recommend patient stay as an inpatient until full resolution of his facial cellulitis and we will continue watching for possible airway issues in the future because of the infection. Appreciate home team as well as Infectious Disease and numerous other teams input. Daivd Leung MD CCP/SA /6:53 PM /7:10 PM
[2017-06-26] MEDS ORDERED: HYDROmorphone HCL PF 2 MG/ML VIAL IV PRN (22:45)
[2017-06-27] VITALS (22 sets, daily range): BP systolic 140–166; BP diastolic 61–75; PULSE 85–99; RESP 8–27; TEMP 99–100.2; O2SAT 86–99
[2017-06-27] MEDS: HYDROmorphone HCL PF 2 MG/ML VIAL IV PUSH PRN ×7 (02:25→21:18)
[2017-06-27] MEDS: ONDANSETRON HCL 4 MG/2 ML VIAL IVP PRN ×4 (02:25→21:23)
[2017-06-27] MEDS: VORICONAZOLE IV SCH ×2 (03:53→16:58)
[2017-06-27] MEDS: MEROPENEM INJ 2,000 MG in SODIUM CHLORIDE 0.9% INJ 100 ML IV SCH ×3 (03:53→20:32)
[2017-06-27] MEDS: SODIUM CHLOR 0.9% IV SCH ×2 (03:53→16:58)
[2017-06-27 05:59] LABS: HEMATOCRIT 21.8 % (39.0-51.0); HEMOGLOBIN 7.8 GM/DL (13.0-17.0); MEAN CELL VOLUME 84.4 FL (80.0-100.0); MEAN CORPUSCULAR HGB CONC 35.5 % (32.0-36.0); MEAN PLATELET VOLUME 8.1 FL (7.0-11.0); PLATELET COUNT 20 TH/MM3 (150-450); RED BLOOD COUNT 2.59 MIL/MM3 (4.50-5.90); RED CELL DISTRIBUTION WIDTH 15.2 % (11.6-17.2); WHITE BLOOD COUNT 0.5 TH/MM3 (4.0-11.0)
[2017-06-27 06:35] LABS: ALBUMIN 1.7 GM/DL (3.4-5.0); BICARBONATE 32.3 MEQ/L (21.0-32.0); CREATININE 0.65 MG/DL (0.60-1.30)
[2017-06-27 06:38] LABS: DIRECT BILIRUBIN ADULT 0.3 MG/DL (0.0-0.2); INDIRECT BILIRUBIN 0.6 MG/DL (0.0-0.8); TOTAL BILIRUBIN ADULT 0.9 MG/DL (0.2-1.0); TOTAL PROTEIN 5.6 GM/DL (6.4-8.2)
[2017-06-27] MEDS: ACYCLOVIR 200 MG CAP PO SCH ×2 (09:09→20:31)
[2017-06-27] MEDS: FLUoxetine HCL 20 MG CAP PO SCH (09:09)
[2017-06-27] MEDS ORDERED: POTASSIUM CHLORIDE 20 MEQ CONTROLLED RELEASE TAB PO ONE (09:15)
[2017-06-27] MEDS ORDERED: POTASSIUM CHLOR 40 MEQ PREMIX 100 ML IV ONE (09:15)
[2017-06-27] MEDS: SODIUM CHLORIDE 0.9% FLUSH 10 ML FLUSH IV FLUSH SCH ×2 (09:20→20:32)
[2017-06-27] MEDS: SUCRALFATE 1 GM/10 ML CUP PO SCH ×4 (09:27→20:31)
[2017-06-27 10:20] LABS: BANDS 47 % (0-6); LYMPHOCYTES 26 % (9-44); MONOCYTES 6 % (0-8); POLYS (SEG NEUTROPHILS) 20 % (16-70)
[2017-06-27 10:21] LABS: NEUTROPHIL # MANUAL DIFF 0.3 TH/MM3 (1.8-7.7); TOXIC GRANULATION 2+ (NORMAL); TOXIC VACUOLATION PRESENT (NONE SEEN)
--- NOTE | 2017-06-27 11:13 | PD.ONC.PN ---
Subjective Subjective Remarks Tmax 102.2 yesterday afternoon. Patient anxious. still having a lot of facial pain. Vital signs remain stable. Objective Data Date Time Temp Pulse Resp B/P (MAP) Pulse Ox O2 Delivery O2 Flow Rate FiO2 06/27/17 09:01 90 8 158/66 (96) 98 06/27/17 09:00 96 9 97 06/27/17 08:01 99.3 91 21 150/62 (91) 96 06/27/17 08:00 89 23 96 06/27/17 07:09 92 16 140/61 (87) 96 06/27/17 07:00 91 23 96 06/27/17 06:03 18 06/27/17 04:00 99.6 99 27 96 06/27/17 00:00 99.4 95 24 166/65 (98) 98 06/26/17 20:00 99.5 89 9 165/70 (101) 93 06/26/17 17:59 97.4 93 23 144/65 94 06/26/17 16:00 102.2 103 22 145/67 (93) 93 06/26/17 12:34 99.5 92 16 148/71 (96) 94 06/27/17 06/27/17 06/27/17 07:00 15:00 23:00 Intake Total 750 ml Output Total 1500 ml Balance -750 ml Result Diagram: 06/27/17 0530 06/27/17 0530 Laboratory Results Laboratory Tests Test 06/26/17 13:30 06/26/17 16:00 06/27/17 05:30 Immunoglobulin G Total 731 MG/DL Immunoglobulin A 221 MG/DL Immunoglobulin M 8 MG/DL Nasal Screen MRSA (PCR) MRSA NOT DETECTED White Blood Count 0.5 TH/MM3 Red Blood Count 2.59 MIL/MM3 Hemoglobin 7.8 GM/DL Hematocrit 21.8 % Mean Corpuscular Volume 84.4 FL Mean Corpuscular Hemoglobin 30.0 PG Mean Corpuscular Hemoglobin Concent 35.5 % Red Cell Distribution Width 15.2 % Platelet Count 20 TH/MM3 Mean Platelet Volume 8.1 FL CBC Comment AUTO DIFF Differential Total Cells Counted 100 Neutrophils % (Manual) 20 % Band Neutrophils % 47 % Lymphocytes % 26 % Monocytes % 6 % Eosinophils % 1 % Neutrophils # (Manual) 0.3 TH/MM3 Differential Comment FINAL DIFF MANUAL Toxic Granulation 2+ Toxic Vacuolation PRESENT Platelet Estimate RARE Platelet Morphology Comment NORMAL Blood Urea Nitrogen 11 MG/DL Creatinine 0.65 MG/DL Random Glucose 104 MG/DL Total Protein 5.6 GM/DL Albumin 1.7 GM/DL Calcium Level 8.0 MG/DL Alkaline Phosphatase 59 U/L Aspartate Amino Transf (AST/SGOT) 12 U/L Alanine Aminotransferase (ALT/SGPT) 13 U/L Total Bilirubin 0.9 MG/DL Direct Bilirubin 0.3 MG/DL Sodium Level 139 MEQ/L Potassium Level 2.8 MEQ/L Chloride Level 101 MEQ/L Carbon Dioxide Level 32.3 MEQ/L Anion Gap 6 MEQ/L Estimat Glomerular Filtration Rate 150 ML/MIN Indirect Bilirubin 0.6 MG/DL Culture Results Microbiology Date/Time Source Procedure Growth Status 06/26/17 21:15 Blood Peripheral Aerobic Blood Culture Pending Received 06/26/17 21:15 Blood Peripheral Anaerobic Blood Culture Pending Received 06/26/17 21:09 Blood Peripheral Aerobic Blood Culture Pending Received 06/26/17 21:09 Blood Peripheral Anaerobic Blood Culture Pending Received 06/25/17 09:02 Blood Peripheral Aerobic Blood Culture - Preliminary NO GROWTH IN 2 DAYS Resulted 06/25/17 09:02 Blood Peripheral Anaerobic Blood Culture - Preliminary NO GROWTH IN 2 DAYS Resulted 06/24/17 21:25 Blood Line Aerobic Blood Culture - Preliminary NO GROWTH IN 3 DAYS Resulted 06/24/17 21:25 Blood Line Anaerobic Blood Culture - Preliminary NO GROWTH IN 3 DAYS Resulted Administered Medications Medications (Trade) Dose Ordered Sig/Emma Route PRN Reason Start Time Stop Time Status Last Admin Dose Admin Sodium Chloride 1,000 ml @ 100 mls/hr Q10H IV 06/20/17 10:51 06/26/17 12:17 Sodium Chloride (NS Flush) 2 ml UNSCH PRN IV FLUSH FLUSH AFTER USING IV ACCESS 06/20/17 11:00 06/21/17 04:42 Sodium Chloride (NS Flush) 2 ml BID IV FLUSH 06/20/17 21:00 06/27/17 09:20 Ondansetron HCl (Zofran Inj) 4 mg Q6H PRN IVP NAUSEA OR VOMITING 06/20/17 11:00 06/27/17 09:16 Acyclovir (Zovirax) 400 mg Q12HR PO 06/20/17 21:00 06/27/17 09:09 Fluoxetine HCl (PROzac) 20 mg DAILY PO 06/21/17 09:00 06/27/17 09:09 Sucralfate (Carafate Liq) 1 gm ACHS PO 06/20/17 17:00 06/27/17 09:27 Acetaminophen (Tylenol) 650 mg Q4H PRN PO FEVER>100.4 OR PREMEDICATION 06/21/17 08:45 06/25/17 22:26 Hydromorphone HCl (Dilaudid Pf Inj) 1 mg Q3HR PRN IV PUSH BREAKTHROUGH PAIN 06/24/17 10:00 06/27/17 09:12 Diphenhydramine HCl (Benadryl) 25 mg Q4H PRN PO premedication 06/24/17 12:45 06/25/17 10:48 Prochlorperazine Edisylate (Compazine Inj) 10 mg Q8H PRN IV PUSH severe nausea 06/24/17 23:30 06/25/17 21:58 Daptomycin 900 mg/ Sodium Chloride 100 ml @ 200 mls/hr Q24H IV 06/25/17 13:00 06/26/17 13:41 Meropenem 2000 mg/ Sodium Chloride 100 ml @ 200 mls/hr Q8H IV 06/25/17 12:00 06/27/17 03:53 Filgrastim 480 mcg/Dextrose 26.6 ml @ 53.2 mls/hr DAILY@14 IV 06/26/17 15:00 06/26/17 15:26 Potassium Chloride 100 ml @ 25 mls/hr BOLUS ONCE IV 06/27/17 09:15 06/27/17 13:14 06/27/17 09:26 Objective Remarks GENERAL: Young man supine in bed, anxious appearing, but otherwise in nad. SKIN: Warm and dry. HEAD: Normocephalic. pustule left face with erythema extending in jones like distribution from left to right face and streaks of erythema extending to the port. EYES: No injection or drainage. NECK: Supple, trachea midline. CARDIOVASCULAR: Regular rate and rhythm. RESPIRATORY: Breath sounds equal bilaterally. No accessory muscle use. GASTROINTESTINAL: Abdomen soft, non-tender, nondistended. EXTREMITIES: No cyanosis NEUROLOGICAL: awake, no focal deficit. Assessment/Plan Problem List: (1) Neutropenic sepsis ICD Codes: A41.9 - Sepsis, unspecified organism; D70.9 - Neutropenia, unspecified Status: Resolved Plan: --on Meropenem + Daptomycin + Vfend --WBC imrpoving. --most recent blood cultures negative --ID following. --facial cellulitis without fluid collection (2) Facial cellulitis ICD Codes: L03.211 - Cellulitis of face Plan: --continue antibiotics. --plastic surgery consulted, does not recommend intervention. --ENT also following. Assessment 27y/o male with AML admitted for neutropenic fever. h/o Obesity. Anxiety. Erosive esophagitis. Plan 1. continue IV antibiotics 2. encouraged that WBC improving, continue GCSF 3. monitor CBC, BMP Attending Statement The exam, history, and the medical decision-making described in the above note were completed with the assistance of the mid-level provider. I reviewed and agree with the findings presented. I attest that I had a [id number] encounter with the patient on the same day, and personally performed and documented my assessment and findings in the medical record. Still neutropenic and febrile, critically ill. Erytherma and cellulitis seem to be developing a focus over L jaw. Plan repeat imaging and aspiration if any fluid collection or abscess. Appreciate ENT input, no airway compromise despite swelling. Cont GCSF for neutropenia. WBC increase, await recovery of counts post consolidation. Discussed with ID. Continue support. Fartun Pagan Jun 27, 2017 11:13 Abiola Camilo MD Jun 27, 2017 23:49
[2017-06-27] MEDS: DAPTOmycin INJ 900 MG in SODIUM CHLORIDE 0.9% INJ 100 ML IV SCH (12:00)
[2017-06-27] MEDS: SODIUM CHLOR 0.9% 1000 ML INJ 1,000 ML IV SCH (12:51)
[2017-06-27] MEDS: FILGRASTIM INJ 480 MCG in DEXTROSE 5% IN WATER INJ 25 ML IV SCH ×2 (15:05)
--- NOTE | 2017-06-27 19:02 | HHI.IDPN ---
Subjective Subjective Remarks ID [email or web address] cover for Dr Mcgarry Better Spiked to 102 yday, but then remained satble and with bordeline elevated temp His ANC in 300 blood clx all remain negative no new pbrolem swelling unchanged, no resp issues Antibiotics dapto meropenem voriconazo Past Medical History AML Allergies: Coded Allergies: No Known Allergies (Verified Allergy, Unknown, 05/28/17) Objective . Vital Signs Date Time Temp Pulse Resp B/P (MAP) Pulse Ox O2 Delivery O2 Flow Rate FiO2 06/27/17 16:01 99.2 87 17 164/75 (104) 89 06/27/17 16:00 85 18 86 06/27/17 15:01 94 12 157/69 (98) 99 06/27/17 15:00 97 19 97 06/27/17 14:01 93 18 150/66 (94) 95 06/27/17 14:00 91 16 93 06/27/17 13:01 91 17 143/64 (90) 93 06/27/17 13:00 92 15 93 06/27/17 12:01 99.0 95 11 160/68 (98) 94 06/27/17 12:00 97 16 93 06/27/17 11:01 90 22 165/72 (103) 92 06/27/17 11:00 92 23 94 06/27/17 10:01 91 12 144/66 (92) 95 06/27/17 09:01 90 8 158/66 (96) 98 06/27/17 09:00 96 9 97 06/27/17 08:01 99.3 91 21 150/62 (91) 96 06/27/17 08:00 89 23 96 06/27/17 07:09 92 16 140/61 (87) 96 06/27/17 07:00 91 23 96 06/27/17 06:03 18 18 04:00 99.6 99 27 96 06/27/17 00:00 99.4 95 24 166/65 (98) 98 06/26/17 20:00 99.5 89 9 165/70 (101) 93 18 18 06/28/17 15:00 23:00 07:00 Intake Total 300 ml 526.6 ml Output Total 1680 ml Balance 300 ml -1153.4 ml Intake Oral 500 ml IV Total 300 ml 26.6 ml Output Urine Total 1680 ml # Bowel Movements 0 . Laboratory Tests Test 06/26/17 06:05 06/27/17 05:30 White Blood Count 0.2 TH/MM3 0.5 TH/MM3 Red Blood Count 2.86 MIL/MM3 2.59 MIL/MM3 Hemoglobin 8.4 GM/DL 7.8 GM/DL Hematocrit 24.2 % 21.8 % Mean Corpuscular Volume 84.7 FL 84.4 FL Mean Corpuscular Hemoglobin 29.4 PG 30.0 PG Mean Corpuscular Hemoglobin Concent 34.7 % 35.5 % Red Cell Distribution Width 15.7 % 15.2 % Platelet Count 10 TH/MM3 20 TH/MM3 Mean Platelet Volume 9.1 FL 8.1 FL CBC Comment AUTO DIFF AUTO DIFF Differential Total Cells Counted 25 100 Neutrophils % (Manual) 16 % 20 % Band Neutrophils % 40 % 47 % Lymphocytes % 24 % 26 % Monocytes % 12 % 6 % Neutrophils # (Manual) 0.1 TH/MM3 0.3 TH/MM3 Metamyelocytes 4 % Myelocytes 4 % Differential Comment FINAL DIFF MANUAL FINAL DIFF MANUAL Platelet Estimate RARE RARE Platelet Morphology Comment NORMAL NORMAL Eosinophils % 1 % Toxic Granulation 2+ Toxic Vacuolation PRESENT Laboratory Tests Test 06/26/17 04:30 06/27/17 05:30 Blood Urea Nitrogen 12 MG/DL 11 MG/DL Creatinine 0.64 MG/DL 0.65 MG/DL Random Glucose 94 MG/DL 104 MG/DL Total Protein 6.3 GM/DL 5.6 GM/DL Albumin 1.9 GM/DL 1.7 GM/DL Calcium Level 8.4 MG/DL 8.0 MG/DL Alkaline Phosphatase 65 U/L 59 U/L Aspartate Amino Transf (AST/SGOT) 4 U/L 12 U/L Alanine Aminotransferase (ALT/SGPT) 15 U/L 13 U/L Total Bilirubin 1.2 MG/DL 0.9 MG/DL Direct Bilirubin 0.4 MG/DL 0.3 MG/DL Sodium Level 139 MEQ/L 139 MEQ/L Potassium Level 3.5 MEQ/L 2.8 MEQ/L Chloride Level 104 MEQ/L 101 MEQ/L Carbon Dioxide Level 28.1 MEQ/L 32.3 MEQ/L Anion Gap 7 MEQ/L 6 MEQ/L Estimat Glomerular Filtration Rate 152 ML/MIN 150 ML/MIN Indirect Bilirubin 0.8 MG/DL 0.6 MG/DL Magnesium Level 2.3 MG/DL Microbiology Date/Time Source Procedure Growth Status 06/26/17 21:15 Blood Peripheral Aerobic Blood Culture - Preliminary NO GROWTH IN 1 DAY Resulted 06/26/17 21:15 Blood Peripheral Anaerobic Blood Culture - Preliminary NO GROWTH IN 1 DAY Resulted 06/26/17 21:09 Blood Peripheral Aerobic Blood Culture - Preliminary NO GROWTH IN 1 DAY Resulted 06/26/17 21:09 Blood Peripheral Anaerobic Blood Culture - Preliminary NO GROWTH IN 1 DAY Resulted 06/25/17 09:02 Blood Peripheral Aerobic Blood Culture - Preliminary NO GROWTH IN 2 DAYS Resulted 06/25/17 09:02 Blood Peripheral Anaerobic Blood Culture - Preliminary NO GROWTH IN 2 DAYS Resulted 06/24/17 21:25 Blood Line Aerobic Blood Culture - Preliminary NO GROWTH IN 3 DAYS Resulted 06/24/17 21:25 Blood Line Anaerobic Blood Culture - Preliminary NO GROWTH IN 3 DAYS Resulted Imaging Last Impressions Maxillofacial CT 06/25/17 1431 Signed Impressions: Service Date/Time: Sunday, June 25, 2017 15:55 - CONCLUSION: 1. Left- sided cellulitis as above without discrete or drainable fluid collections to suggest focal abscess. Mildly enlarged reactive lymph nodes in the left submental region and left cervical region. Leander Fiore MD Face MRI 06/23/17 0000 Signed Impressions: Service Date/Time: Friday, June 23, 2017 11:57 - CONCLUSION: Superficial inflammatory changes. Given the very low white count developing abscess probably not possible. Correlation suggested. Richy Bonner MD FACR Chest X-Ray 06/20/17 0939 Signed Impressions: Service Date/Time: Tuesday, June 20, 2017 09:49 - CONCLUSION: No acute disease. Katie Hollins MD Physical Exam CONSTITUTIONAL/GENERAL: This is an adequately nourished patient, in no apparent distress. TUBES/LINES/DRAINS: SKIN: No jaundice, + petechail rash on the chest no lesions. Skin temperature appropriate. Not diaphoretic. STATUS LOCALIS: marked indurated tender red area more prominent on the L but also present on the R - inchaged + small area of fluctuance + minimal clear drainage CARDIOVASCULAR: Regular rate and rhythm without murmurs, gallops, or rubs. No JVD. Peripheral pulses symmetric. RESPIRATORY/CHEST: Symmetric, unlabored respirations. Clear to auscultation. Breath sounds equal bilaterally. No wheezes, rales, or rhonchi. GASTROINTESTINAL: Abdomen soft, non-tender, nondistended. No hepato-splenomegaly , or palpable masses. No guarding. Bowel sounds present. GENITOURINARY: Without palpable bladder distension. MUSCULOSKELETAL: Extremities without clubbing, cyanosis, or edema. No joint tenderness or effusion noted. LYMPHATICS: No palpable cervical or supraclavicular adenopathy. NEUROLOGICAL: Awake and alert. Motor and sensory grossly within normal limits. Follows commands. Cognitively sharp. Moves all extremities. PSYCHIATRIC: No obvious anxiety/depression. no apparent hallucinations or other psychotic thought process. Assessment & Plan Remarks IMPRESSION 1. Enterobacter sepsis in patient with persistent fever, chills and neutropenia and also tachycardia, and hypotension. 2. Cellulitis of the left face. Not showing signs of improvement. Worse swelling. worsening despite of adequate coverage Severe phelegmone, now starts to form abscess 3. Neutropenia. =- improving Tronmbocytopenia 4. AML in a patient who is post consolidation chemotherapy after going into remission. 5. Thrombocytopenia and anemia. RECOMMENDATIONS 1. Cont Meropenem for now concern for resistant organism. 2. Change vancomycin to Daptomycin to cover VRE also. 3. Continue Acyclovir. 4. Cont voriconazole 5. Follow the blood cultures. 7. Monitor temp. 8. Monitor the clinical status. 9.Likely will require drainage in the next 1-2 days providing coubnts to cont improve dw Alana Garza MD Jun 27, 2017 19:02
--- NOTE | 2017-06-27 23:52 | HHI.PR ---
Subjective Remarks Patient looks slightly better today, stated he feels his chin looks more solid/ endurated today Objective Vitals Vital Signs Date Time Temp Pulse Resp B/P (MAP) Pulse Ox O2 Delivery O2 Flow Rate FiO2 06/27/17 23:06 19 06/27/17 20:00 100.2 06/27/17 20:00 100.2 97 17 143/64 (90) 93 06/27/17 16:01 99.2 87 17 164/75 (104) 89 06/27/17 16:00 85 18 86 06/27/17 15:01 94 12 157/69 (98) 99 06/27/17 15:00 97 19 97 06/27/17 14:01 93 18 150/66 (94) 95 06/27/17 14:00 91 16 93 06/27/17 13:01 91 17 143/64 (90) 93 06/27/17 13:00 92 15 93 06/27/17 12:01 99.0 95 11 160/68 (98) 94 06/27/17 12:00 97 16 93 06/27/17 11:01 90 22 165/72 (103) 92 06/27/17 11:00 92 23 94 06/27/17 10:01 91 12 144/66 (92) 95 06/27/17 09:01 90 8 158/66 (96) 98 06/27/17 09:00 96 9 97 06/27/17 08:01 99.3 91 21 150/62 (91) 96 06/27/17 08:00 89 23 96 06/27/17 07:09 92 16 140/61 (87) 96 06/27/17 07:00 91 23 96 06/27/17 04:00 99.6 99 27 96 06/27/17 00:00 99.4 95 24 166/65 (98) 98 I/O 06/27/17 06/27/17 06/27/17 06/28/17 06/28/17 06/28/17 07:00 15:00 23:00 07:00 15:00 23:00 Intake Total 750 ml 300 ml 876.6 ml Output Total 1500 ml 1680 ml Balance -750 ml 300 ml -803.4 ml Intake Oral 300 ml 500 ml IV Total 450 ml 300 ml 376.6 ml Output Urine Total 1500 ml 1680 ml # Bowel Movements 0 0 Result Diagram: 06/27/17 0530 06/27/17 0530 Objective Remarks GENERAL: This morbidly obese 27 years old patient in mild distress due to pain in his face CARDIOVASCULAR: Regular rate and rhythm without murmurs, gallops, or rubs. RESPIRATORY: Fair air entry bilaterally. No wheezes, rales, or rhonchi. GASTROINTESTINAL: Abdomen soft, non-tender, nondistended. Normal active bowel sounds MUSCULOSKELETAL: Extremities without clubbing, cyanosis, or edema. NEURO: Alert & Oriented x4 to person, place, time, situation. Moves all ext x4 A/P Problem List: (1) Neutropenic fever ICD Code: D70.9 - Neutropenia, unspecified; R50.81 - Fever presenting with conditions classified elsewhere Status: Resolved (2) Pancytopenia ICD Code: D61.818 - Other pancytopenia (3) AML (acute myelogenous leukemia) ICD Code: C92.00 - Acute myeloblastic leukemia, not having achieved remission Status: Chronic (4) Generalized pain ICD Code: R52 - Pain, unspecified Status: Resolved (5) Sepsis ICD Code: A41.9 - Sepsis, unspecified organism Status: Resolved Assessment and Plan 06/25: Continues to have pain in the face, continue off antibiotic, follow with oncologist, still neutropenic, CBC in a.m., monitor vital 06/26: Discussed with oncologist, WBC still at 0.2, transfer to ICU, continue IV antibiotic, repeat CBC in a.m. and monitor vitals 06/27: Continue current care, WBC increased to 0.5, antibiotics, the patient follow-up CBC in a.m. and monitor vital temperature, hypokalemia potassium 2.8 replace IV and repeat BMP in a.m. Initial A/P Sepsis Neutropenic fever bacteremia with Enterobacter facial cellulitis MRI facial soft tissue with superficial inflammatory changes continue with broad spectrum IV Antibiotics. continue with pain control. follow the cultures. ID and Oncology following. Acute myeloid leukemia Pancytopenia Thrombocytopenia Hematology/Oncology following. Follow CBC PRBC and platelet transfusion per Oncology. Hypokalemia will replace and monitor. Gen. anxiety disorder Chronic depression Xanax as needed Clonazepam at night Fluoxetine daily DVT prophylaxis SCDs Due to degree of pancytopenia avoid anticoagulation right now Kevin Montiel MD Jun 27, 2017 23:52
[2017-06-28] VITALS (10 sets, daily range): BP systolic 142–188; BP diastolic 64–82; PULSE 73–96; RESP 4–23; TEMP 98.8–100.3; O2SAT 93–95
[2017-06-28] MEDS: HYDROmorphone HCL PF 2 MG/ML VIAL IV PUSH PRN ×7 (00:06→22:48)
[2017-06-28] MEDS: ONDANSETRON HCL 4 MG/2 ML VIAL IVP PRN ×3 (04:55→22:48)
[2017-06-28] MEDS: SODIUM CHLOR 0.9% IV SCH ×2 (04:56→16:03)
[2017-06-28] MEDS: MEROPENEM INJ 2,000 MG in SODIUM CHLORIDE 0.9% INJ 100 ML IV SCH ×3 (04:56→19:46)
[2017-06-28] MEDS: VORICONAZOLE IV SCH ×2 (04:56→16:03)
[2017-06-28 05:48] LABS: ALBUMIN 1.8 GM/DL (3.4-5.0); BICARBONATE 32.9 MEQ/L (21.0-32.0); CALCIUM 7.8 MG/DL (8.5-10.1); CREATININE 0.53 MG/DL (0.60-1.30); DIRECT BILIRUBIN ADULT 0.3 MG/DL (0.0-0.2); MAGNESIUM 2.3 MG/DL (1.5-2.5); PHOSPHORUS 2.8 MG/DL (2.5-4.9)
[2017-06-28 05:50] LABS: INDIRECT BILIRUBIN 0.7 MG/DL (0.0-0.8); TOTAL PROTEIN 5.7 GM/DL (6.4-8.2)
[2017-06-28] MEDS: ACYCLOVIR 200 MG CAP PO SCH ×2 (08:15→19:46)
[2017-06-28] MEDS: SUCRALFATE 1 GM/10 ML CUP PO SCH ×4 (08:15→19:46)
[2017-06-28] MEDS: FLUoxetine HCL 20 MG CAP PO SCH (08:15)
[2017-06-28] MEDS: SODIUM CHLOR 0.9% 1000 ML INJ 1,000 ML IV SCH ×2 (08:16→18:51)
[2017-06-28] MEDS: SODIUM CHLORIDE 0.9% FLUSH 10 ML FLUSH IV FLUSH SCH ×2 (08:16→19:46)
--- NOTE | 2017-06-28 09:14 | MB ---
cc: DIANA CORONADO DMD DATE OF CONSULTATION 06/25/[address] Villegas REASON FOR CONSULTATION Rule out etiology for left facial edema. HISTORY OF PRESENT ILLNESS This is a 27-year-old male who has a history of AML and has been undergoing treatments with chemo. He also, in the hospital, developed a swelling on the left side of the face extending down to the mandible to the neck region. He was seen previously by plastic surgery, but no surgical intervention was needed as no drainable collection was noted clinically or radiographically. Dr. Villegas called me this morning to see, evaluate and to rule out any dental etiology of the swelling. I have seen and examined this patient this evening. His father is at bedside. Also the surgeon, , was also at bedside during the time. The patient denies any fever, chills, nausea, vomiting, any shortness of breath, any difficulty breathing or any difficulty swallowing. The patient also reports recently picking his left side of his face near the region of the mandible an ingrown hair/pimple in that side and then this whole redness and edema started. PAST MEDICAL HISTORY 1. Acute myeloid leukemia. 2. Obesity 3. Anxiety, 4. Erosive esophagitis. MEDICATIONS Per report 1. Acyclovir 2. Sulfamethozazole-Trimethoprim 3. Prozac 4. Klonopin 5. ALLERGIES Denied. SOCIAL HISTORY Denies any alcohol, tobacco, illicit drugs. PHYSICAL EXAMINATION VITAL SIGNS: Temperature 99.0, pulse 77, respirations 18, blood pressure is 165/76 with oxygen saturation of 100%. The patient has edema on the left side of the face starting at the region of the midline. The oral maxillofacial surgery service was asked to evaluate and rule out any dental etiology for a source of swelling on the left side of his face. So the patient has got erythema on the left side of his mandible extending from the posterior aspect of the mandible down to his neck and coursing more to the right side with just edema. He has got tenderness over that site. I can see an area where he had traumatized this tissue popping the pimple/ingrown hair and there is a part 1 cm region away from it in a round circular fashion that appears to be slightly crusted and whitish. The whole erythema is tender to palpation but I am not able to palpate any drainable collection. Intraorally, the tissue is pink and well-perfused. No elevation of the floor of the mouth or the tongue. No deviation of the uvula. From a dental standpoint, he with the appears stable. No clinical gross decay noted or any broken teeth or any draining lacerations that I could see at this point. No tenderness to palpation or percussion. Clinically the trachea midline. I could see the previous fabienne that was made yesterday outlining area of the incision and now the erythema has gone approximately 1.5 to 2 cm away from that site. CT scan of the facial bones shows edema on the left side of the face and there is some cellulitis but I do not appreciate any drainable collection. No dental etiology noted even on the MRI or on the CT scan at this point. LABORATORY DATA: Today his white count is 0.20 with an H&H of 7.5 and 21.0 with platelets of 14. His neutrophils are 0.0. The lymphocyte percentage is 93. Blood work from the lab shows Enterobacter cloacae. The rest of the labs are pending microbiology. IMPRESSION AND PLAN: This is a 27-year-old male with a history of acute myelogenous leukemia, pancytopenia, neutropenia who appears to have a cellulitic region on the left mandible extending to the left side of the neck and now it is going to the right side. No drainable collection noted clinically or radiographically. From an oral maxillofacial surgery standpoint, there does not appear to be any dental etiology of this. This most likely could be considered MRSA. Dr. Villegas from infectious disease also saw this patient and examined him yesterday and today. At this point, recommend just continuing to treat this thing with antibiotics and infectious disease treatment by Dr. Villegas. At this point, there is no surgical intervention needed. Trying to incise any non-drainable abscess or any region can make this worse as his white count is severely low, neutropenic and can cause even more infection and his platelet count level being 14,000 may cause him more increased bleeding risk. I did already speak to Dr. Villegas about my recommendations. Plastic surgery has already been consulted previously before me and they are already following the patient and since there is no dental etiology at this point, oral maxillofacial surgery is signing off. Please re-call as you require. Diana Coronado DMD RRT/ /8:19 PM /9:04 AM
[2017-06-28 10:17] LABS: HEMATOCRIT 24.2 % (39.0-51.0); HEMOGLOBIN 8.4 GM/DL (13.0-17.0); MEAN CELL VOLUME 84.8 FL (80.0-100.0); MEAN CORPUSCULAR HEMOGLOBIN 29.5 PG (27.0-34.0); MEAN CORPUSCULAR HGB CONC 34.8 % (32.0-36.0); MEAN PLATELET VOLUME 8.6 FL (7.0-11.0); RED BLOOD COUNT 2.85 MIL/MM3 (4.50-5.90); RED CELL DISTRIBUTION WIDTH 15.3 % (11.6-17.2); WHITE BLOOD COUNT 1.4 TH/MM3 (4.0-11.0)
[2017-06-28 10:35] LABS: PLATELET COUNT 16 TH/MM3 (150-450)
--- NOTE | 2017-06-28 10:36 | HHI.IDPN ---
Note Infectious Disease Note Patient continues to complain of severe pain in the left face. Also says he has SANTIAGO. Same. Left submandibular swelling and erythema is slightly larger and now also towards the left lateral neck. Febrile. Neck is supple. No nausea. Consult from ENT, OMF and plastic surgeon appreciated. 27-year-old white male who has AML. The patient has been undergoing consolidation chemotherapy and he received the third cycle of chemotherapy last week. The patient developed fever and noted a tiny lump at the left sub mandible area of the chin. He states that he squeezed it but did not get any fluid and it became slightly enlarged and erythematous. That was 4 days ago. He subsequently started getting fever and chills also had nausea and vomiting and diarrhea. PAST MEDICAL HISTORY 1. AML. The patient is noted to be in remission and has been undergoing consolidative chemotherapy. 2. History of erosive esophagitis. 3. Anxiety. 4. Obesity. ALLERGIES NO KNOWN DRUG ALLERGIES. MEDICATIONS 1. Daptomycin. 2. Meropenem. 3. Voriconazole. 5. Acyclovir. OBJECTIVE: Vital Signs Date Time Temp Pulse Resp B/P (MAP) Pulse Ox O2 Delivery O2 Flow Rate FiO2 06/28/17 06:30 20 06/28/17 04:00 100.3 84 20 156/65 (95) 94 06/28/17 00:00 100.0 06/28/17 00:00 100.0 96 23 157/66 (96) 93 06/27/17 20:00 100.2 06/27/17 20:00 100.2 97 17 143/64 (90) 93 06/27/17 16:01 99.2 87 17 164/75 (104) 89 06/27/17 16:00 85 18 86 06/27/17 15:01 94 12 157/69 (98) 99 06/27/17 15:00 97 19 97 06/27/17 14:01 93 18 150/66 (94) 95 06/27/17 14:00 91 16 93 06/27/17 13:01 91 17 143/64 (90) 93 06/27/17 13:00 92 15 93 06/27/17 12:01 99.0 95 11 160/68 (98) 94 06/27/17 12:00 97 16 93 06/27/17 11:01 90 22 165/72 (103) 92 06/27/17 11:00 92 23 94 Laboratory Tests Test 06/27/17 05:30 06/28/17 09:55 White Blood Count 0.5 TH/MM3 Red Blood Count 2.59 MIL/MM3 Hemoglobin 7.8 GM/DL Hematocrit 21.8 % Mean Corpuscular Volume 84.4 FL Mean Corpuscular Hemoglobin 30.0 PG Mean Corpuscular Hemoglobin Concent 35.5 % Red Cell Distribution Width 15.2 % Platelet Count 20 TH/MM3 Mean Platelet Volume 8.1 FL CBC Comment AUTO DIFF Differential Total Cells Counted 100 Neutrophils % (Manual) 20 % Band Neutrophils % 47 % Lymphocytes % 26 % Monocytes % 6 % Eosinophils % 1 % Neutrophils # (Manual) 0.3 TH/MM3 Differential Comment FINAL DIFF MANUAL Toxic Granulation 2+ Toxic Vacuolation PRESENT Platelet Estimate RARE Platelet Morphology Comment NORMAL Laboratory Tests Test 06/27/17 05:30 06/28/17 05:05 Blood Urea Nitrogen 11 MG/DL 10 MG/DL Creatinine 0.65 MG/DL 0.53 MG/DL Random Glucose 104 MG/DL 89 MG/DL Total Protein 5.6 GM/DL 5.7 GM/DL Albumin 1.7 GM/DL 1.8 GM/DL Calcium Level 8.0 MG/DL 7.8 MG/DL Alkaline Phosphatase 59 U/L 62 U/L Aspartate Amino Transf (AST/SGOT) 12 U/L 18 U/L Alanine Aminotransferase (ALT/SGPT) 13 U/L 24 U/L Total Bilirubin 0.9 MG/DL 1.0 MG/DL Direct Bilirubin 0.3 MG/DL 0.3 MG/DL Sodium Level 139 MEQ/L 139 MEQ/L Potassium Level 2.8 MEQ/L 3.0 MEQ/L Chloride Level 101 MEQ/L 100 MEQ/L Carbon Dioxide Level 32.3 MEQ/L 32.9 MEQ/L Anion Gap 6 MEQ/L 6 MEQ/L Estimat Glomerular Filtration Rate 150 ML/MIN 189 ML/MIN Magnesium Level 2.3 MG/DL 2.3 MG/DL Indirect Bilirubin 0.6 MG/DL 0.7 MG/DL Phosphorus Level 2.8 MG/DL Microbiology Date/Time Source Procedure Growth Status 06/26/17 21:15 Blood Peripheral Aerobic Blood Culture - Preliminary NO GROWTH IN 1 DAY Resulted 06/26/17 21:15 Blood Peripheral Anaerobic Blood Culture - Preliminary NO GROWTH IN 1 DAY Resulted 06/26/17 21:09 Blood Peripheral Aerobic Blood Culture - Preliminary NO GROWTH IN 1 DAY Resulted 06/26/17 21:09 Blood Peripheral Anaerobic Blood Culture - Preliminary NO GROWTH IN 1 DAY Resulted IMAGING: Maxillofacial CT 06/25/17 1431 Signed Impressions: Service Date/Time: Sunday, June 25, 2017 15:55 - CONCLUSION: 1. Left- sided cellulitis as above without discrete or drainable fluid collections to suggest focal abscess. Mildly enlarged reactive lymph nodes in the left submental region and left cervical region. Leander Fiore MD Face MRI 06/23/17 0000 Signed Impressions: Service Date/Time: Friday, June 23, 2017 11:57 - CONCLUSION: Superficial inflammatory changes. Given the very low white count developing abscess probably not possible. Correlation suggested. Richy Bonner MD FACR Chest X-Ray 06/20/17 0939 Signed Impressions: Service Date/Time: Tuesday, June 20, 2017 09:49 - CONCLUSION: No acute disease. Katie Hollins MD PHYSICAL EXAM: GENERAL: No acute distress. Awake, alert. HEENT: Erythematous firm mobile area of swelling at the left submandibular area is slightly larger, firm. Severe tenderness at the lateral neck. Swelling erythema and tenderness extends towards the Right Jaw, submental. The extraocular movements grossly intact, pupils reactive to light. No icterus. Oropharynx moist mucosa without lesions. NECK: Supple. No adenopathy. The neck is obese. LUNGS: Clear breath sounds. HEART: Distant S1-S2 without murmurs, rubs or gallops. ABDOMEN: Obese, soft, no tenderness. EXTREMITIES: No clubbing or cyanosis or edema. SKIN: No diffuse rash. NEUROLOGIC: No gross focal findings. PSYCHE: Pleasant, calm and cooperative. IMPRESSION 1. Enterobacter sepsis in patient with persistent fever, chills and neutropenia and also tachycardia, and hypotension. 2. Cellulitis of the left face. Not showing signs of improvement. Still significant swelling. 3. Neutropenia. 4. AML in a patient who is post consolidation chemotherapy after going into remission. 5. Thrombocytopenia and anemia. RECOMMENDATIONS 1. Continue Meropenem. concern for resistant organism. I do not think the Enterobacter in the blood is the cause of the facial swelling and patient WBC too low for abscess development. 2. Continue Daptomycin. 3. Continue Acyclovir. 4. Continue Voriconazole. 5. Wet compress to left face. 6. Culture wound if drainage occurs. 7. Monitor temp. 8. Monitor the clinical status. d/w RN. Tre Villegas MD Jun 28, 2017 10:36
[2017-06-28 12:08] LABS: LYMPHOCYTES 16 % (9-44); MONOCYTES 6 % (0-8); NEUTROPHIL # MANUAL DIFF 1.1 TH/MM3 (1.8-7.7)
[2017-06-28 12:09] LABS: BANDS 20 % (0-6); METAMYELOCYTES 4 % (0-1); POLYS (SEG NEUTROPHILS) 54 % (16-70)
[2017-06-28 12:10] LABS: DOHLE BODIES PRESENT (NONE SEEN)
[2017-06-28 12:11] LABS: TOXIC GRANULATION 1+ (NORMAL)
--- NOTE | 2017-06-28 13:53 | PD.ONC.PN ---
Subjective Subjective Remarks Pt continues to run low grade temps States he felt like his neck was wet this am around L side facial inflammation. No bleeding Objective Data Date Time Temp Pulse Resp B/P (MAP) Pulse Ox O2 Delivery O2 Flow Rate FiO2 06/28/17 06:30 20 06/28/17 04:00 100.3 84 20 156/65 (95) 94 06/28/17 00:00 100.0 06/28/17 00:00 100.0 96 23 157/66 (96) 93 06/27/17 20:00 100.2 06/27/17 20:00 100.2 97 17 143/64 (90) 93 06/27/17 16:01 99.2 87 17 164/75 (104) 89 06/27/17 16:00 85 18 86 06/27/17 15:01 94 12 157/69 (98) 99 06/27/17 15:00 97 19 97 06/27/17 14:01 93 18 150/66 (94) 95 06/27/17 14:00 91 16 93 06/28/17 06/28/17 06/28/17 07:00 15:00 23:00 Intake Total 720 ml Output Total 1225 ml Balance -505 ml Result Diagram: 06/28/17 0955 06/28/17 0505 Laboratory Results Laboratory Tests Test 06/28/17 05:05 06/28/17 09:55 Blood Urea Nitrogen 10 MG/DL Creatinine 0.53 MG/DL Random Glucose 89 MG/DL Total Protein 5.7 GM/DL Albumin 1.8 GM/DL Calcium Level 7.8 MG/DL Phosphorus Level 2.8 MG/DL Magnesium Level 2.3 MG/DL Alkaline Phosphatase 62 U/L Aspartate Amino Transf (AST/SGOT) 18 U/L Alanine Aminotransferase (ALT/SGPT) 24 U/L Total Bilirubin 1.0 MG/DL Direct Bilirubin 0.3 MG/DL Sodium Level 139 MEQ/L Potassium Level 3.0 MEQ/L Chloride Level 100 MEQ/L Carbon Dioxide Level 32.9 MEQ/L Anion Gap 6 MEQ/L Estimat Glomerular Filtration Rate 189 ML/MIN Indirect Bilirubin 0.7 MG/DL White Blood Count 1.4 TH/MM3 Red Blood Count 2.85 MIL/MM3 Hemoglobin 8.4 GM/DL Hematocrit 24.2 % Mean Corpuscular Volume 84.8 FL Mean Corpuscular Hemoglobin 29.5 PG Mean Corpuscular Hemoglobin Concent 34.8 % Red Cell Distribution Width 15.3 % Platelet Count 16 TH/MM3 Mean Platelet Volume 8.6 FL CBC Comment AUTO DIFF Differential Total Cells Counted 50 Neutrophils % (Manual) 54 % Band Neutrophils % 20 % Lymphocytes % 16 % Monocytes % 6 % Neutrophils # (Manual) 1.1 TH/MM3 Metamyelocytes 4 % Differential Comment FINAL DIFF MANUAL Toxic Granulation 1+ Dohle Bodies PRESENT Platelet Estimate RARE Platelet Morphology Comment NORMAL Culture Results Microbiology Date/Time Source Procedure Growth Status 06/26/17 21:15 Blood Peripheral Aerobic Blood Culture - Preliminary NO GROWTH IN 2 DAYS Resulted 06/26/17 21:15 Blood Peripheral Anaerobic Blood Culture - Preliminary NO GROWTH IN 2 DAYS Resulted 06/26/17 21:09 Blood Peripheral Aerobic Blood Culture - Preliminary NO GROWTH IN 2 DAYS Resulted 06/26/17 21:09 Blood Peripheral Anaerobic Blood Culture - Preliminary NO GROWTH IN 2 DAYS Resulted Administered Medications Medications (Trade) Dose Ordered Sig/Emma Route PRN Reason Start Time Stop Time Status Last Admin Dose Admin Sodium Chloride 1,000 ml @ 100 mls/hr Q10H IV 06/20/17 10:51 06/28/17 08:16 Sodium Chloride (NS Flush) 2 ml UNSCH PRN IV FLUSH FLUSH AFTER USING IV ACCESS 06/20/17 11:00 06/21/17 04:42 Sodium Chloride (NS Flush) 2 ml BID IV FLUSH 06/20/17 21:00 06/28/17 08:16 Ondansetron HCl (Zofran Inj) 4 mg Q6H PRN IVP NAUSEA OR VOMITING 06/20/17 11:00 06/28/17 04:55 Acyclovir (Zovirax) 400 mg Q12HR PO 06/20/17 21:00 06/28/17 08:15 Fluoxetine HCl (PROzac) 20 mg DAILY PO 06/21/17 09:00 06/28/17 08:15 Sucralfate (Carafate Liq) 1 gm ACHS PO 06/20/17 17:00 06/28/17 08:15 Acetaminophen (Tylenol) 650 mg Q4H PRN PO FEVER>100.4 OR PREMEDICATION 06/21/17 08:45 06/25/17 22:26 Hydromorphone HCl (Dilaudid Pf Inj) 1 mg Q3HR PRN IV PUSH BREAKTHROUGH PAIN 06/24/17 10:00 06/28/17 11:55 Diphenhydramine HCl (Benadryl) 25 mg Q4H PRN PO premedication 06/24/17 12:45 06/25/17 10:48 Prochlorperazine Edisylate (Compazine Inj) 10 mg Q8H PRN IV PUSH severe nausea 06/24/17 23:30 06/25/17 21:58 Daptomycin 900 mg/ Sodium Chloride 100 ml @ 200 mls/hr Q24H IV 06/25/17 13:00 06/27/17 12:00 Meropenem 2000 mg/ Sodium Chloride 100 ml @ 200 mls/hr Q8H IV 06/25/17 12:00 06/28/17 04:56 Voriconazole 460 mg/Sodium Chloride 250 ml @ 125 mls/hr Q12H IV 06/27/17 16:00 06/28/17 04:56 Objective Remarks GENERAL: Young male resting in bed on cell phone no obvious distress SKIN: Warm and dry. Left side facial erythema with large amt of induration. Scant area of serous drainage noted HEAD: Normocephalic. EYES: No injection or drainage. NECK: Supple, trachea midline. CARDIOVASCULAR: Regular rate and rhythm without murmurs. RESPIRATORY: Breath sounds equal bilaterally. No accessory muscle use. GASTROINTESTINAL: Abdomen soft, non-tender, nondistended. EXTREMITIES: No cyanosis. MUSCULOSKELETAL: Adequate muscle tone. NEUROLOGICAL: No obvious focal deficit. Awake, alert, and oriented x3. Assessment/Plan Problem List: (1) Neutropenic sepsis ICD Codes: A41.9 - Sepsis, unspecified organism; D70.9 - Neutropenia, unspecified Status: Resolved Plan: --on Voriconozole + Daptomycin + Meropenem --WBC improving. --Most recent blood cultures negative --ID following. --facial cellulitis without fluid collection (2) Facial cellulitis ICD Codes: L03.211 - Cellulitis of face Plan: --continue antibiotics. --plastic surgery consulted, does not recommend intervention. --ENT also following. Assessment 27y/o male with AML admitted for neutropenic fever. h/o Obesity. Anxiety. Erosive esophagitis. Plan 1. Stop Neupogen 2. Able to obtain a small amt of serous fluid from face for culture. Will send to micro. 3. Monitor CBC, BMP 4. Continue Abx per ID Attending Statement The exam, history, and the medical decision-making described in the above note were completed with the assistance of the mid-level provider. I reviewed and agree with the findings presented. I attest that I had a [id number] encounter with the patient on the same day, and personally performed and documented my assessment and findings in the medical record Fever curve improving repeat blood cultures negative ANC 1100 received 2 treatments of Neupogen will stop further Neupogen at this point left neck cellulitis with swelling small amount of clear fluid drained out of the wound no blood products today on multiple abx having left thigh cramp--better with massage asking for PT- consult placed Okay to transfer out of ICU o/n events reviewed Robina Cui Jun 28, 2017 13:53 Joey Santoyo MD Jun 28, 2017 22:47
[2017-06-28] MEDS: DAPTOmycin INJ 900 MG in SODIUM CHLORIDE 0.9% INJ 100 ML IV SCH (14:24)
--- NOTE | 2017-06-28 17:31 | HHI.PR ---
Subjective Remarks Resting comfortably in bed Temperature 100.3, WBC increased to 1.4 Denied chest and or short of breath Objective Vitals Vital Signs Date Time Temp Pulse Resp B/P (MAP) Pulse Ox O2 Delivery O2 Flow Rate FiO2 06/28/17 06:30 20 06/28/17 04:00 100.3 84 20 156/65 (95) 94 06/28/17 00:00 100.0 06/28/17 00:00 100.0 96 23 157/66 (96) 93 06/27/17 20:00 100.2 06/27/17 20:00 100.2 97 17 143/64 (90) 93 I/O 06/27/17 06/27/17 06/27/17 06/28/17 06/28/17 06/28/17 07:00 15:00 23:00 07:00 15:00 23:00 Intake Total 750 ml 300 ml 876.6 ml 720 ml Output Total 1500 ml 1680 ml 1225 ml Balance -750 ml 300 ml -803.4 ml -505 ml Intake Oral 300 ml 500 ml 620 ml IV Total 450 ml 300 ml 376.6 ml 100 ml Output Urine Total 1500 ml 1680 ml 1225 ml # Bowel Movements 0 0 0 Result Diagram: 06/28/17 0955 06/28/17 0505 Objective Remarks GENERAL: This morbidly obese 27 years old patient in mild distress due to pain in his face CARDIOVASCULAR: Regular rate and rhythm without murmurs, gallops, or rubs. RESPIRATORY: Fair air entry bilaterally. No wheezes, rales, or rhonchi. GASTROINTESTINAL: Abdomen soft, non-tender, nondistended. Normal active bowel sounds MUSCULOSKELETAL: Extremities without clubbing, cyanosis, or edema. NEURO: Alert & Oriented x4 to person, place, time, situation. Moves all ext x4 A/P Problem List: (1) Neutropenic fever ICD Code: D70.9 - Neutropenia, unspecified; R50.81 - Fever presenting with conditions classified elsewhere Status: Resolved (2) Pancytopenia ICD Code: D61.818 - Other pancytopenia (3) AML (acute myelogenous leukemia) ICD Code: C92.00 - Acute myeloblastic leukemia, not having achieved remission Status: Chronic (4) Generalized pain ICD Code: R52 - Pain, unspecified Status: Resolved (5) Sepsis ICD Code: A41.9 - Sepsis, unspecified organism Status: Resolved Assessment and Plan 06/25: Continues to have pain in the face, continue off antibiotic, follow with oncologist, still neutropenic, CBC in a.m., monitor vital 06/26: Discussed with oncologist, WBC still at 0.2, transfer to ICU, continue IV antibiotic, repeat CBC in a.m. and monitor vitals 06/27: Continue current care, WBC increased to 0.5, antibiotics, the patient follow-up CBC in a.m. and monitor vital temperature, hypokalemia potassium 2.8 replace IV and repeat BMP in a.m. 06/28 WBC improved to 1.4 more indurated area in chin possible abscess formation , continue IV antibiotic, appreciate the following Initial A/P Sepsis Neutropenic fever bacteremia with Enterobacter facial cellulitis MRI facial soft tissue with superficial inflammatory changes continue with broad spectrum IV Antibiotics. continue with pain control. follow the cultures. ID and Oncology following. Acute myeloid leukemia Pancytopenia Thrombocytopenia Hematology/Oncology following. Follow CBC PRBC and platelet transfusion per Oncology. Hypokalemia will replace and monitor. Gen. anxiety disorder Chronic depression Xanax as needed Clonazepam at night Fluoxetine daily DVT prophylaxis SCDs Due to degree of pancytopenia avoid anticoagulation right now Kevin Montiel MD Jun 28, 2017 17:31
[2017-06-29] VITALS (12 sets, daily range): BP systolic 141–172; BP diastolic 64–85; PULSE 70–84; RESP 13–21; TEMP 98.4–100.2; O2SAT 96–98
[2017-06-29] MEDS: HYDROmorphone HCL PF 2 MG/ML VIAL IV PUSH PRN ×6 (02:17→22:06)
[2017-06-29] MEDS ORDERED: ZOLPIDEM TARTRATE 5 MG TAB PO ONE (03:00)
[2017-06-29] MEDS: SODIUM CHLOR 0.9% IV SCH ×2 (04:05→18:21)
[2017-06-29] MEDS: MEROPENEM INJ 2,000 MG in SODIUM CHLORIDE 0.9% INJ 100 ML IV SCH ×3 (04:05→21:47)
[2017-06-29] MEDS: VORICONAZOLE IV SCH ×2 (04:05→18:21)
[2017-06-29] MEDS: ONDANSETRON HCL 4 MG/2 ML VIAL IVP PRN ×2 (05:45→18:23)
[2017-06-29 06:59] LABS: AUTOMATED NEUTROPHIL # 1.1 TH/MM3 (1.8-7.7); BASOPHIL % 0.1 % (0.0-2.0); EOSINOPHIL % 0.1 % (0.0-4.0); HEMOGLOBIN 8.1 GM/DL (13.0-17.0); LYMPH % 16.7 % (9.0-44.0); LYMPHOCYTE # 0.3 TH/MM3 (1.0-4.8); MEAN CELL VOLUME 85.1 FL (80.0-100.0); MEAN CORPUSCULAR HEMOGLOBIN 29.8 PG (27.0-34.0); MEAN PLATELET VOLUME 8.8 FL (7.0-11.0); MONO % 11.5 % (0.0-8.0); MONOCYTE # 0.2 TH/MM3 (0-0.9); NEUT % 71.6 % (16.0-70.0); WHITE BLOOD COUNT 1.6 TH/MM3 (4.0-11.0)
[2017-06-29 07:08] LABS: PLATELET COUNT 12 TH/MM3 (150-450)
[2017-06-29] MEDS: FLUoxetine HCL 20 MG CAP PO SCH (08:24)
[2017-06-29] MEDS: ACYCLOVIR 200 MG CAP PO SCH ×2 (08:24→21:47)
[2017-06-29] MEDS: SUCRALFATE 1 GM/10 ML CUP PO SCH ×4 (08:24→21:47)
[2017-06-29] MEDS: SODIUM CHLORIDE 0.9% FLUSH 10 ML FLUSH IV FLUSH SCH ×2 (08:25→21:47)
[2017-06-29] MEDS ORDERED: HYDROmorphone HCL PF 1 MG/ML VIAL IV PUSH PRN ×2 (08:45→15:30)
[2017-06-29 09:45] LABS: BANDS 14 % (0-6); LYMPHOCYTES 17 % (9-44); MONOCYTES 12 % (0-8); MYELOCYTES 1 % (0-0); NEUTROPHIL # MANUAL DIFF 1.1 TH/MM3 (1.8-7.7); POLYS (SEG NEUTROPHILS) 56 % (16-70)
[2017-06-29] MEDS ORDERED: HYDROmorphone HCL PF 2 MG/ML VIAL IV PUSH PRN (09:45)
[2017-06-29 09:49] LABS: TOXIC GRANULATION 1+ (NORMAL)
--- NOTE | 2017-06-29 11:03 | HHI.IDPN ---
Note Infectious Disease Note Patient feels okay. Left cheek lesion is now oozing purulent fluid. Culture sent. RN reports bloody drainage from the cheek earlier. Pain in the face is decreased. Left submandibular swelling is same size but erythema is less. Febrile. Low grade. WBC is higher. Neck is supple. No nausea. Consult from ENT, OMF and plastic surgeon appreciated. 27-year-old white male who has AML. The patient has been undergoing consolidation chemotherapy and he received the third cycle of chemotherapy last week. The patient developed fever and noted a tiny lump at the left sub mandible area of the chin. He states that he squeezed it but did not get any fluid and it became slightly enlarged and erythematous. That was 4 days ago. He subsequently started getting fever and chills also had nausea and vomiting and diarrhea. PAST MEDICAL HISTORY 1. AML. The patient is noted to be in remission and has been undergoing consolidative chemotherapy. 2. History of erosive esophagitis. 3. Anxiety. 4. Obesity. ALLERGIES NO KNOWN DRUG ALLERGIES. MEDICATIONS 1. Daptomycin. 2. Meropenem. 3. Voriconazole. 5. Acyclovir. OBJECTIVE: Vital Signs Date Time Temp Pulse Resp B/P (MAP) Pulse Ox O2 Delivery O2 Flow Rate FiO2 06/29/17 08:00 98.6 81 14 152/74 (100) 06/29/17 06:00 79 06/29/17 05:57 19 06/29/17 04:00 100.2 72 13 145/71 (95) 06/29/17 04:00 72 06/29/17 02:00 80 06/29/17 00:00 80 06/29/17 00:00 99.8 80 16 141/64 (89) 98 06/28/17 22:00 80 06/28/17 20:00 100.1 73 4 168/78 (108) 06/28/17 20:00 73 06/28/17 18:00 76 06/28/17 16:00 85 06/28/17 16:00 99.8 85 16 166/64 (98) 06/28/17 14:00 78 06/28/17 12:00 99.3 86 13 188/82 (117) 94 06/28/17 12:00 86 Laboratory Tests Test 06/28/17 09:55 06/29/17 06:10 White Blood Count 1.4 TH/MM3 1.6 TH/MM3 Red Blood Count 2.85 MIL/MM3 2.70 MIL/MM3 Hemoglobin 8.4 GM/DL 8.1 GM/DL Hematocrit 24.2 % 23.0 % Mean Corpuscular Volume 84.8 FL 85.1 FL Mean Corpuscular Hemoglobin 29.5 PG 29.8 PG Mean Corpuscular Hemoglobin Concent 34.8 % 35.0 % Red Cell Distribution Width 15.3 % 15.0 % Platelet Count 16 TH/MM3 12 TH/MM3 Mean Platelet Volume 8.6 FL 8.8 FL CBC Comment AUTO DIFF AUTO DIFF Differential Total Cells Counted 50 100 Neutrophils % (Manual) 54 % 56 % Band Neutrophils % 20 % 14 % Lymphocytes % 16 % 17 % Monocytes % 6 % 12 % Neutrophils # (Manual) 1.1 TH/MM3 1.1 TH/MM3 Metamyelocytes 4 % Differential Comment FINAL DIFF MANUAL FINAL DIFF MANUAL Toxic Granulation 1+ 1+ Dohle Bodies PRESENT Platelet Estimate RARE RARE Platelet Morphology Comment NORMAL NORMAL Neutrophils (%) (Auto) 71.6 % Lymphocytes (%) (Auto) 16.7 % Monocytes (%) (Auto) 11.5 % Eosinophils (%) (Auto) 0.1 % Basophils (%) (Auto) 0.1 % Neutrophils # (Auto) 1.1 TH/MM3 Lymphocytes # (Auto) 0.3 TH/MM3 Monocytes # (Auto) 0.2 TH/MM3 Eosinophils # (Auto) 0.0 TH/MM3 Basophils # (Auto) 0.0 TH/MM3 Myelocytes 1 % IMAGING: Maxillofacial CT 06/25/17 1431 Signed Impressions: Service Date/Time: Sunday, June 25, 2017 15:55 - CONCLUSION: 1. Left- sided cellulitis as above without discrete or drainable fluid collections to suggest focal abscess. Mildly enlarged reactive lymph nodes in the left submental region and left cervical region. Leander Fiore MD Face MRI 06/23/17 0000 Signed Impressions: Service Date/Time: Friday, June 23, 2017 11:57 - CONCLUSION: Superficial inflammatory changes. Given the very low white count developing abscess probably not possible. Correlation suggested. Richy Bonner MD FACR Chest X-Ray 06/20/17 0939 Signed Impressions: Service Date/Time: Tuesday, June 20, 2017 09:49 - CONCLUSION: No acute disease. Katie Hollins MD PHYSICAL EXAM: GENERAL: No acute distress. Awake, alert. HEENT: Erythematous area of swelling at the left submandibular area is softer and erythema is decreased. Less tenderness Swelling erythema and tenderness extends towards the Right Jaw, submental. The extraocular movements grossly intact, pupils reactive to light. No icterus. Oropharynx moist mucosa without lesions. NECK: Supple. No adenopathy. The neck is obese. LUNGS: Clear breath sounds. HEART: Nl S1-S2, No murmurs, rubs or gallops. ABDOMEN: Obese, soft, no tenderness. EXTREMITIES: No clubbing or cyanosis or edema. SKIN: No diffuse rash. NEUROLOGIC: No gross focal findings. PSYCHE: Pleasant, calm and cooperative. IMPRESSION 1. Enterobacter sepsis in patient with persistent fever, chills and neutropenia and also tachycardia, and hypotension. 2. Cellulitis of the left face. Mild improvement. Still significant swelling. Now drainage. 3. Neutropenia. 4. AML in a patient who is post consolidation chemotherapy after going into remission. 5. Thrombocytopenia and anemia. RECOMMENDATIONS 1. Continue Meropenem. concern for resistant organism. I do not think the Enterobacter in the blood is the cause of the facial swelling and patient WBC too low for abscess development. 2. Continue Daptomycin. 3. Continue Acyclovir. 4. Continue Voriconazole. 5. Hold off on wet compress to face. 6. Monitor culture of wound. 7. Monitor temp. 8. Monitor the clinical status. d/w RN. Tre Villegas MD Jun 29, 2017 11:03
[2017-06-29] MEDS: ACETAMINOPHEN 325 MG TAB PO PRN (12:48)
[2017-06-29] MEDS: diphenhydrAMINE HCL 25 MG CAP PO PRN (12:49)
--- NOTE | 2017-06-29 14:00 | PD.ONC.PN ---
Subjective Subjective Remarks Tmax 100.2 overnight. Patient notes he has started to noticed some serous drainage from the lesion in his left face. He feels much better today. also had a little bit of bleeding from left facial lesion. about to receive platelets. Objective Data Date Time Temp Pulse Resp B/P (MAP) Pulse Ox O2 Delivery O2 Flow Rate FiO2 06/29/17 12:00 98.5 82 21 167/79 (108) 06/29/17 08:00 98.6 81 14 152/74 (100) 06/29/17 06:00 79 06/29/17 05:57 19 06/29/17 04:00 100.2 72 13 145/71 (95) 06/29/17 04:00 72 06/29/17 02:00 80 06/29/17 00:00 80 06/29/17 00:00 99.8 80 16 141/64 (89) 98 06/28/17 22:00 80 06/28/17 20:00 100.1 73 4 168/78 (108) 06/28/17 20:00 73 06/28/17 18:00 76 06/28/17 16:00 85 06/28/17 16:00 99.8 85 16 166/64 (98) 06/28/17 14:00 78 06/29/17 06/29/17 06/29/17 07:00 15:00 23:00 Intake Total 600 ml 10 ml Output Total 2400 ml Balance -1800 ml 10 ml Result Diagram: 06/29/17 0610 06/28/17 0505 Laboratory Results Laboratory Tests Test 06/29/17 06:10 White Blood Count 1.6 TH/MM3 Red Blood Count 2.70 MIL/MM3 Hemoglobin 8.1 GM/DL Hematocrit 23.0 % Mean Corpuscular Volume 85.1 FL Mean Corpuscular Hemoglobin 29.8 PG Mean Corpuscular Hemoglobin Concent 35.0 % Red Cell Distribution Width 15.0 % Platelet Count 12 TH/MM3 Mean Platelet Volume 8.8 FL Neutrophils (%) (Auto) 71.6 % Lymphocytes (%) (Auto) 16.7 % Monocytes (%) (Auto) 11.5 % Eosinophils (%) (Auto) 0.1 % Basophils (%) (Auto) 0.1 % Neutrophils # (Auto) 1.1 TH/MM3 Lymphocytes # (Auto) 0.3 TH/MM3 Monocytes # (Auto) 0.2 TH/MM3 Eosinophils # (Auto) 0.0 TH/MM3 Basophils # (Auto) 0.0 TH/MM3 CBC Comment AUTO DIFF Differential Total Cells Counted 100 Neutrophils % (Manual) 56 % Band Neutrophils % 14 % Lymphocytes % 17 % Monocytes % 12 % Neutrophils # (Manual) 1.1 TH/MM3 Myelocytes 1 % Differential Comment FINAL DIFF MANUAL Toxic Granulation 1+ Platelet Estimate RARE Platelet Morphology Comment NORMAL Culture Results Microbiology Date/Time Source Procedure Growth Status 06/26/17 21:15 Blood Peripheral Aerobic Blood Culture - Preliminary NO GROWTH IN 3 DAYS Resulted 06/26/17 21:15 Blood Peripheral Anaerobic Blood Culture - Preliminary NO GROWTH IN 3 DAYS Resulted 06/26/17 21:09 Blood Peripheral Aerobic Blood Culture - Preliminary NO GROWTH IN 3 DAYS Resulted 06/26/17 21:09 Blood Peripheral Anaerobic Blood Culture - Preliminary NO GROWTH IN 3 DAYS Resulted 06/28/17 14:00 Abscess Face Gram Stain - Final Resulted 06/28/17 14:00 Wound Culture - Preliminary Gram Negative Iraj Resulted Administered Medications Medications (Trade) Dose Ordered Sig/Emma Route PRN Reason Start Time Stop Time Status Last Admin Dose Admin Sodium Chloride 1,000 ml @ 100 mls/hr Q10H IV 06/20/17 10:51 06/28/17 08:16 Sodium Chloride (NS Flush) 2 ml UNSCH PRN IV FLUSH FLUSH AFTER USING IV ACCESS 06/20/17 11:00 06/21/17 04:42 Sodium Chloride (NS Flush) 2 ml BID IV FLUSH 06/20/17 21:00 06/29/17 08:25 Ondansetron HCl (Zofran Inj) 4 mg Q6H PRN IVP NAUSEA OR VOMITING 06/20/17 11:00 06/29/17 05:45 Acyclovir (Zovirax) 400 mg Q12HR PO 06/20/17 21:00 06/29/17 08:24 Fluoxetine HCl (PROzac) 20 mg DAILY PO 06/21/17 09:00 06/29/17 08:24 Sucralfate (Carafate Liq) 1 gm ACHS PO 06/20/17 17:00 06/29/17 12:49 Acetaminophen (Tylenol) 650 mg Q4H PRN PO FEVER>100.4 OR PREMEDICATION 06/21/17 08:45 2/20/18 12:48 Diphenhydramine HCl (Benadryl) 25 mg Q4H PRN PO premedication 06/24/17 12:45 06/29/17 12:49 Prochlorperazine Edisylate (Compazine Inj) 10 mg Q8H PRN IV PUSH severe nausea 06/24/17 23:30 06/25/17 21:58 Daptomycin 900 mg/ Sodium Chloride 100 ml @ 200 mls/hr Q24H IV 06/25/17 13:00 06/28/17 14:24 Meropenem 2000 mg/ Sodium Chloride 100 ml @ 200 mls/hr Q8H IV 06/25/17 12:00 06/29/17 12:51 Voriconazole 460 mg/Sodium Chloride 250 ml @ 125 mls/hr Q12H IV 06/27/17 16:00 06/29/17 04:05 Hydromorphone HCl (Dilaudid Pf Inj) 0.5 mg Q4H PRN IV PUSH BREAKTHROUGH PAIN 06/29/17 09:45 06/29/17 12:53 Objective Remarks GENERAL: Pleasant young man, sitting up in bed in [facility]. SKIN: Warm and dry. left face with a 3mm pustule surrounded with inflammation and induration. there is erythema extending around the chin to the opposite side of the face. the erythema is much rod puller and coiler in appearance then when I saw Nilson two days ago. HEAD: Normocephalic. EYES: No injection or drainage. NECK: Supple, trachea midline. CARDIOVASCULAR: Regular rate and rhythm RESPIRATORY: Breath sounds equal bilaterally. No accessory muscle use. GASTROINTESTINAL: Abdomen soft, non-tender, nondistended. EXTREMITIES: No cyanosis, NEUROLOGICAL: awake and alert, normal speech. moving all extremities. Assessment/Plan Problem List: (1) Neutropenic sepsis ICD Codes: A41.9 - Sepsis, unspecified organism; D70.9 - Neutropenia, unspecified Status: Resolved Plan: --on Voriconozole + Daptomycin + Meropenem --WBC improving. --Most recent blood cultures negative --ID following. --facial cellulitis without fluid collection (2) Facial cellulitis ICD Codes: L03.211 - Cellulitis of face Plan: --continue antibiotics. --plastic surgery following. --ENT also following. Assessment 27y/o male with AML admitted for neutropenic fever. h/o Obesity. Anxiety. Erosive esophagitis. Plan 1. continue antibiotics 2. recommend warm compresses to forming abscess in left face--now that patient' s WBC is recovering, the infection will likely develop pus as WBC rises, and eventually break open. we may need plastic surgery to perform I&D. will continue to monitor as WBC rises. 3. agree with 1 unit platelets. Attending Statement The exam, history, and the medical decision-making described in the above note were completed with the assistance of the mid-level provider. I reviewed and agree with the findings presented. I attest that I had a [id number] encounter with the patient on the same day, and personally performed and documented my assessment and findings in the medical record appears more alert today and says that pain is substantially less facial swelling has decreased on exam the cellulitic area does not appear to have any underlying fluid the wound is open with no significant drainage wound culture growing gram negative rods---on meropenem. speciation and susceptibility pending ANC 1100 low grade fever but blood cultures negative had physical therapy with relief of thigh cramps Transfuse 1 unit of irradiated platelets since some bleeding earlier from the wound d/w rn o/n events reviewed d/w Fartun Chisholm Jun 29, 2017 14:00 Joey Santoyo MD Jun 29, 2017 22:48
[2017-06-29] MEDS: DAPTOmycin INJ 900 MG in SODIUM CHLORIDE 0.9% INJ 100 ML IV SCH (14:15)
[2017-06-29] MEDS ORDERED: ICU - POTASSIUM PHOSPHATE MONOBASIC 500 MG TAB PO PRN (14:30)
[2017-06-29] MEDS ORDERED: ICU - MAGNESIUM OXIDE 400 MG TAB PO PRN (14:30)
[2017-06-29] MEDS ORDERED: ICU - CALL ORDERING PHYSICIAN PRN (14:30)
[2017-06-29] MEDS ORDERED: POTASSIUM CHLORIDE 25 MEQ EFFERVESCENT TAB PO PRN (14:30)
[2017-06-29] MEDS ORDERED: ICU - MAGNESIUM SULFATE 2 GM/NS 100 ML IV PRN ×2 (14:30)
[2017-06-29] MEDS ORDERED: ICU - MAGNESIUM SULFATE 4 GM/NS 100 ML IV PRN ×2 (14:30)
[2017-06-29] MEDS ORDERED: ICU - SODIUM PHOSPHATE 30 MMOL/NS 250 ML IV PRN ×2 (14:30)
[2017-06-29] MEDS ORDERED: ICU - POTASSIUM PHOSPHATE 30 MMOL/NS 250 ML IV PRN ×2 (14:30)
[2017-06-29] MEDS: ICU - POTASSIUM CHLORIDE/AQUEOUS SOLN 40 MEQ/100 ML IVPB IV PRN ×2 (18:44→21:46)
--- NOTE | 2017-06-29 21:51 | HHI.PR ---
Subjective Remarks Give to see the patient for the nurses station start having oozing/bleeding from his chin lesion, his platelet count is 12,000 today I discussed with oncology there threshold is 10 however due to bleeding we will give 2 units of irradiated platelet Away from that patient feels slightly better today , pain is slightly better No nausea or vomiting Objective Vitals Vital Signs Date Time Temp Pulse Resp B/P (MAP) Pulse Ox O2 Delivery O2 Flow Rate FiO2 06/29/17 18:00 70 06/29/17 16:00 98.8 77 18 161/85 (110) 97 06/29/17 16:00 77 06/29/17 14:00 79 06/29/17 12:00 82 06/29/17 12:00 98.5 82 21 167/79 (108) 06/29/17 10:00 84 06/29/17 08:00 81 06/29/17 08:00 98.6 81 14 152/74 (100) 06/29/17 06:00 79 06/29/17 05:57 19 06/29/17 04:00 100.2 72 13 145/71 (95) 06/29/17 04:00 72 06/29/17 02:00 80 06/29/17 00:00 80 06/29/17 00:00 99.8 80 16 141/64 (89) 98 06/28/17 22:00 80 I/O 06/28/17 06/28/17 06/28/17 06/29/17 06/29/17 06/29/17 07:00 15:00 23:00 07:00 15:00 23:00 Intake Total 720 ml 1025 ml 600 ml 10 ml 1283 ml Output Total 1225 ml 1475 ml 2400 ml 2150 ml Balance -505 ml -450 ml -1800 ml 10 ml -867 ml Intake Oral 620 ml 575 ml 400 ml 725 ml IV Total 100 ml 450 ml 200 ml Platelets 558 ml Blood Product IV Normal Saline Flush 10 ml Output Urine Total 1225 ml 1475 ml 2400 ml 2150 ml # Bowel Movements 0 0 0 0 Result Diagram: 06/29/17 0610 06/28/17 0505 Objective Remarks GENERAL: This morbidly obese 27 years old patient in mild distress due to pain in his face CARDIOVASCULAR: Regular rate and rhythm without murmurs, gallops, or rubs. RESPIRATORY: Fair air entry bilaterally. No wheezes, rales, or rhonchi. GASTROINTESTINAL: Abdomen soft, non-tender, nondistended. Normal active bowel sounds MUSCULOSKELETAL: Extremities without clubbing, cyanosis, or edema. NEURO: Alert & Oriented x4 to person, place, time, situation. Moves all ext x4 A/P Problem List: (1) Neutropenic fever ICD Code: D70.9 - Neutropenia, unspecified; R50.81 - Fever presenting with conditions classified elsewhere Status: Resolved (2) Pancytopenia ICD Code: D61.818 - Other pancytopenia (3) AML (acute myelogenous leukemia) ICD Code: C92.00 - Acute myeloblastic leukemia, not having achieved remission Status: Chronic (4) Generalized pain ICD Code: R52 - Pain, unspecified Status: Resolved (5) Sepsis ICD Code: A41.9 - Sepsis, unspecified organism Status: Resolved Assessment and Plan 06/25: Continues to have pain in the face, continue off antibiotic, follow with oncologist, still neutropenic, CBC in a.m., monitor vital 06/26: Discussed with oncologist, WBC still at 0.2, transfer to ICU, continue IV antibiotic, repeat CBC in a.m. and monitor vitals 06/27: Continue current care, WBC increased to 0.5, antibiotics, the patient follow-up CBC in a.m. and monitor vital temperature, hypokalemia potassium 2.8 replace IV and repeat BMP in a.m. 06/28 WBC improved to 1.4 more indurated area in chin possible abscess formation , continue IV antibiotic, appreciate the following 06/29: Platelet count 12,000 today, discussed with oncology and nurse, will give 2 units of irradiated platelet and monitor his facial chin bleeding, Repeat CBC BMP in a.m., monitor temperature, blood pressure Initial A/P Sepsis Neutropenic fever bacteremia with Enterobacter facial cellulitis MRI facial soft tissue with superficial inflammatory changes continue with broad spectrum IV Antibiotics. continue with pain control. follow the cultures. ID and Oncology following. Acute myeloid leukemia Pancytopenia Thrombocytopenia Hematology/Oncology following. Follow CBC PRBC and platelet transfusion per Oncology. Hypokalemia will replace and monitor. Gen. anxiety disorder Chronic depression Xanax as needed Clonazepam at night Fluoxetine daily DVT prophylaxis SCDs Due to degree of pancytopenia avoid anticoagulation right now Kevin Montiel MD Jun 29, 2017 21:51
[2017-06-30] VITALS (16 sets, daily range): BP systolic 129–162; BP diastolic 63–96; PULSE 50–92; RESP 16–33; TEMP 98.2–99.1; O2SAT 95–98
[2017-06-30] MEDS: SODIUM CHLOR 0.9% 1000 ML INJ 1,000 ML IV SCH ×4 (00:34→20:51)
[2017-06-30] MEDS: HYDROmorphone HCL PF 2 MG/ML VIAL IV PUSH PRN ×7 (00:46→23:20)
[2017-06-30] MEDS: SODIUM CHLOR 0.9% IV SCH (03:34)
[2017-06-30] MEDS: VORICONAZOLE IV SCH (03:34)
[2017-06-30] MEDS: MEROPENEM INJ 2,000 MG in SODIUM CHLORIDE 0.9% INJ 100 ML IV SCH (03:34)
[2017-06-30 07:30] LABS: AUTOMATED NEUTROPHIL # 1.1 TH/MM3 (1.8-7.7); BASOPHIL % 0.3 % (0.0-2.0); EOSINOPHIL % 0.2 % (0.0-4.0); HEMATOCRIT 22.7 % (39.0-51.0); HEMOGLOBIN 7.9 GM/DL (13.0-17.0); LYMPH % 19.7 % (9.0-44.0); LYMPHOCYTE # 0.4 TH/MM3 (1.0-4.8); MEAN CELL VOLUME 85.5 FL (80.0-100.0); MEAN CORPUSCULAR HEMOGLOBIN 29.8 PG (27.0-34.0); MEAN CORPUSCULAR HGB CONC 34.8 % (32.0-36.0); MEAN PLATELET VOLUME 8.1 FL (7.0-11.0); MONO % 16.9 % (0.0-8.0); MONOCYTE # 0.3 TH/MM3 (0-0.9); NEUT % 62.9 % (16.0-70.0); RED BLOOD COUNT 2.65 MIL/MM3 (4.50-5.90); WHITE BLOOD COUNT 1.8 TH/MM3 (4.0-11.0)
[2017-06-30 07:38] LABS: PLATELET COUNT 19 TH/MM3 (150-450)
[2017-06-30] MEDS: FLUoxetine HCL 20 MG CAP PO SCH (07:49)
[2017-06-30] MEDS: ACYCLOVIR 200 MG CAP PO SCH ×2 (07:50→23:21)
[2017-06-30] MEDS: SUCRALFATE 1 GM/10 ML CUP PO SCH ×4 (07:50→23:19)
[2017-06-30 07:54] LABS: BICARBONATE 34.1 MEQ/L (21.0-32.0); CALCIUM 8.1 MG/DL (8.5-10.1); CREATININE 0.48 MG/DL (0.60-1.30)
[2017-06-30] MEDS: SODIUM CHLORIDE 0.9% FLUSH 10 ML FLUSH IV FLUSH SCH ×2 (08:49→23:20)
[2017-06-30 09:29] LABS: BANDS 1 % (0-6); LYMPHOCYTES 14 % (9-44); MONOCYTES 11 % (0-8); NEUTROPHIL # MANUAL DIFF 1.4 TH/MM3 (1.8-7.7); POLYS (SEG NEUTROPHILS) 74 % (16-70)
[2017-06-30 09:30] LABS: TOXIC GRANULATION 1+ (NORMAL)
[2017-06-30 09:32] LABS: KERATOCYTES OCC (NORMAL); OVALOCYTES 1+ (NORMAL)
[2017-06-30] MEDS: ICU - POTASSIUM CHLORIDE/AQUEOUS SOLN 20 MEQ/100 ML IVPB IV PRN ×2 (09:50→12:43)
--- NOTE | 2017-06-30 10:59 | HHI.IDPN ---
Note Infectious Disease Note Patient notes pain in the left face is still severe. 11/16. No SANTIAGO. Left submandibular swelling and erythema is improved. Lesion is draining purulent fluid. Afebrile. Neck is supple. No nausea. Consult from ENT, OMF and plastic surgeon appreciated. 27-year-old white male who has AML. The patient has been undergoing consolidation chemotherapy and he received the third cycle of chemotherapy last week. The patient developed fever and noted a tiny lump at the left sub mandible area of the chin. He states that he squeezed it but did not get any fluid and it became slightly enlarged and erythematous. That was 4 days ago. He subsequently started getting fever and chills also had nausea and vomiting and diarrhea. PAST MEDICAL HISTORY 1. AML. The patient is noted to be in remission and has been undergoing consolidative chemotherapy. 2. History of erosive esophagitis. 3. Anxiety. 4. Obesity. ALLERGIES NO KNOWN DRUG ALLERGIES. MEDICATIONS 1. Daptomycin. 2. Meropenem. 3. Voriconazole. 4. Acyclovir. OBJECTIVE: Vital Signs Date Time Temp Pulse Resp B/P (MAP) Pulse Ox O2 Delivery O2 Flow Rate FiO2 06/30/17 09:52 17 06/30/17 06:00 77 06/30/17 04:00 79 06/30/17 04:00 99.0 79 19 129/70 (89) 97 06/30/17 02:00 82 06/30/17 00:00 98.7 75 21 145/68 (93) 96 06/30/17 00:00 75 06/29/17 22:36 19 06/29/17 22:00 74 06/29/17 20:00 98.4 80 14 172/73 (106) 96 06/29/17 20:00 80 06/29/17 18:00 70 06/29/17 16:00 98.8 77 18 161/85 (110) 97 06/29/17 16:00 77 06/29/17 14:00 79 06/29/17 12:00 82 06/29/17 12:00 98.5 82 21 167/79 (108) Laboratory Tests Test 06/29/17 06:10 06/30/17 06:15 White Blood Count 1.6 TH/MM3 1.8 TH/MM3 Red Blood Count 2.70 MIL/MM3 2.65 MIL/MM3 Hemoglobin 8.1 GM/DL 7.9 GM/DL Hematocrit 23.0 % 22.7 % Mean Corpuscular Volume 85.1 FL 85.5 FL Mean Corpuscular Hemoglobin 29.8 PG 29.8 PG Mean Corpuscular Hemoglobin Concent 35.0 % 34.8 % Red Cell Distribution Width 15.0 % 15.0 % Platelet Count 12 TH/MM3 19 TH/MM3 Mean Platelet Volume 8.8 FL 8.1 FL Neutrophils (%) (Auto) 71.6 % 62.9 % Lymphocytes (%) (Auto) 16.7 % 19.7 % Monocytes (%) (Auto) 11.5 % 16.9 % Eosinophils (%) (Auto) 0.1 % 0.2 % Basophils (%) (Auto) 0.1 % 0.3 % Neutrophils # (Auto) 1.1 TH/MM3 1.1 TH/MM3 Lymphocytes # (Auto) 0.3 TH/MM3 0.4 TH/MM3 Monocytes # (Auto) 0.2 TH/MM3 0.3 TH/MM3 Eosinophils # (Auto) 0.0 TH/MM3 0.0 TH/MM3 Basophils # (Auto) 0.0 TH/MM3 0.0 TH/MM3 CBC Comment AUTO DIFF AUTO DIFF Differential Total Cells Counted 100 100 Neutrophils % (Manual) 56 % 74 % Band Neutrophils % 14 % 1 % Lymphocytes % 17 % 14 % Monocytes % 12 % 11 % Neutrophils # (Manual) 1.1 TH/MM3 1.4 TH/MM3 Myelocytes 1 % Differential Comment FINAL DIFF MANUAL FINAL DIFF MANUAL Toxic Granulation 1+ 1+ Platelet Estimate RARE LOW Platelet Morphology Comment NORMAL NORMAL Ovalocytes 1+ Keratocytes OCC Laboratory Tests Test 06/30/17 05:15 Blood Urea Nitrogen 10 MG/DL Creatinine 0.48 MG/DL Random Glucose 81 MG/DL Calcium Level 8.1 MG/DL Sodium Level 145 MEQ/L Potassium Level 3.2 MEQ/L Chloride Level 104 MEQ/L Carbon Dioxide Level 34.1 MEQ/L Anion Gap 7 MEQ/L Estimat Glomerular Filtration Rate 212 ML/MIN Microbiology Date/Time Source Procedure Growth Status 06/28/17 14:00 Abscess Face Gram Stain - Final Complete 06/28/17 14:00 Wound Culture - Final Enterobacter Cloacae Complete IMAGING: Maxillofacial CT 06/25/17 1431 Signed Impressions: Service Date/Time: Sunday, June 25, 2017 15:55 - CONCLUSION: 1. Left- sided cellulitis as above without discrete or drainable fluid collections to suggest focal abscess. Mildly enlarged reactive lymph nodes in the left submental region and left cervical region. Leander Fiore MD Face MRI 06/23/17 0000 Signed Impressions: Service Date/Time: Friday, June 23, 2017 11:57 - CONCLUSION: Superficial inflammatory changes. Given the very low white count developing abscess probably not possible. Correlation suggested. Richy Bonner MD FACR Chest X-Ray 06/20/17 0939 Signed Impressions: Service Date/Time: Tuesday, June 20, 2017 09:49 - CONCLUSION: No acute disease. Katie Hollins MD PHYSICAL EXAM: GENERAL: No acute distress. Awake, alert. HEENT: Erythematous firm mobile area of swelling at the left submandibular area is decreased and less tender. No swelling now at the right jaw. The extraocular movements grossly intact, pupils reactive to light. No icterus. Oropharynx moist mucosa without lesions. NECK: Supple. No adenopathy. The neck is obese. LUNGS: Clear breath sounds. HEART: Distant S1-S2 without murmurs, rubs or gallops. ABDOMEN: Obese, soft, no tenderness. EXTREMITIES: No clubbing or cyanosis or edema. SKIN: No diffuse rash. NEUROLOGIC: No gross focal findings. PSYCHE: Pleasant, calm and cooperative. IMPRESSION 1. Enterobacter sepsis in patient with persistent fever, chills and neutropenia and also tachycardia, and hypotension. 2. Cellulitis of the left face. WBC improving and now probably forming abscess but it is draining. Culture has Enterobacter cloacae. Improving. 3. Neutropenia no admission. 4. AML in a patient who is post consolidation chemotherapy after going into remission. 5. Thrombocytopenia and anemia. RECOMMENDATIONS 1. Stop Meropenem. 2. Begin IV Levaquin. 2. Continue Daptomycin. 3. Continue Acyclovir. 4. Stop Voriconazole. 5. Wet to dry dressing to the left face to keep the lesion draining. 6. Monitor the clinical status. Would give Levaquin PO for 2 weeks and will probably need follow up with plastic surgeon after discharge if this does not heal completely. He needs to be cautioned about hygiene and to avoid scratching any lesions of the skin. d/w LISS. Tre Villegas MD Jun 30, 2017 10:59
--- NOTE | 2017-06-30 11:46 | HHI.PR ---
Subjective Remarks White blood cell count is stabilized now with a slight upward trend from 1.6 now up to 1.8. Hemoglobin has a slight downward trend from 8.1 to 7.9. Platelets are increased from 12 up to 19 today. Patient has no new complaints. Decreasing induration at cellulitis at left lower jaw. Objective Vital Signs Date Time Temp Pulse Resp B/P (MAP) Pulse Ox O2 Delivery O2 Flow Rate FiO2 06/30/17 09:52 17 06/30/17 06:00 77 06/30/17 04:00 79 06/30/17 04:00 99.0 79 19 129/70 (89) 97 06/30/17 02:00 82 06/30/17 00:00 98.7 75 21 145/68 (93) 96 06/30/17 00:00 75 06/29/17 22:36 19 06/29/17 22:00 74 06/29/17 20:00 98.4 80 14 172/73 (106) 96 06/29/17 20:00 80 06/29/17 18:00 70 06/29/17 16:00 98.8 77 18 161/85 (110) 97 06/29/17 16:00 77 06/29/17 14:00 79 06/29/17 12:00 82 06/29/17 12:00 98.5 82 21 167/79 (108) I/O 06/29/17 06/29/17 06/29/17 06/30/17 06/30/17 06/30/17 07:00 15:00 23:00 07:00 15:00 23:00 Intake Total 600 ml 10 ml 1833 ml 1830 ml Output Total 2400 ml 2150 ml 2150 ml Balance -1800 ml 10 ml -317 ml -320 ml Intake Oral 400 ml 725 ml 480 ml IV Total 200 ml 550 ml 1350 ml Platelets 558 ml Blood Product IV Normal Saline Flush 10 ml Output Urine Total 2400 ml 2150 ml 2150 ml # Voids 3 # Bowel Movements 0 0 Result Diagram: 06/30/17 0615 06/30/17 0515 Objective Remarks GENERAL: NAD, A&Ox3 HEAD: Normocephalic. NECK: Supple, trachea midline. No lymphadenopathy. EYES: No scleral icterus. No injection or drainage. CARDIOVASCULAR: Regular rate and rhythm without murmurs, gallops, or rubs. RESPIRATORY: Breath sounds equal bilaterally. No accessory muscle use. GASTROINTESTINAL: Abdomen soft, non-tender, nondistended. MUSCULOSKELETAL: No cyanosis, or edema. SKIN: Warm and dry. Erythema and slight drainage at left lower jaw. 8 x 6 cm palpable area of induration. NEURO: No focal neurological deficitis. A/P Problem List: (1) Facial cellulitis ICD Code: L03.211 - Cellulitis of face (2) Neutropenic sepsis ICD Code: A41.9 - Sepsis, unspecified organism; D70.9 - Neutropenia, unspecified Status: Resolved (3) Sepsis ICD Code: A41.9 - Sepsis, unspecified organism Status: Resolved (4) AML (acute myelogenous leukemia) ICD Code: C92.00 - Acute myeloblastic leukemia, not having achieved remission Status: Chronic (5) Neutropenic fever ICD Code: D70.9 - Neutropenia, unspecified; R50.81 - Fever presenting with conditions classified elsewhere Status: Resolved (6) Pancytopenia ICD Code: D61.818 - Other pancytopenia (7) Bacteremia, coagulase-negative staphylococcal ICD Code: R78.81 - Bacteremia Status: Resolved (8) Pancytopenia due to antineoplastic chemotherapy ICD Code: D61.810 - Antineoplastic chemotherapy induced pancytopenia; T45.1X5A - Adverse effect of antineoplastic and immunosuppressive drugs, initial encounter Status: Acute Assessment and Plan 27-year-old male admitted secondary to pancytopenia with sepsis including neutropenic fever related to bacteremia and left jaw cellulitis. Sepsis Neutropenic fever Resolved bacteremia with Enterobacter facial cellulitis ID following. continue with broad spectrum IV Antibiotics. continue with pain control. Continue to follow the cultures. Acute myeloid leukemia Neutropenia Pancytopenia Thrombocytopenia Hematology/Oncology following. Slight improvement seen daily Follow CBC Consider transfusions as needed Hypokalemia will replace and monitor. Gen. anxiety disorder Chronic depression Xanax as needed Clonazepam at night Fluoxetine daily DVT prophylaxis SCDs Avoid anticoagulation in the setting of pancytopenia Nilson Hernandez MD Jun 30, 2017 11:45
[2017-06-30] MEDS: LEVOFLOXACIN 750 MG PREMIX INJ 150 ML IV SCH (12:12)
[2017-06-30] MEDS: DAPTOmycin INJ 900 MG in SODIUM CHLORIDE 0.9% INJ 100 ML IV SCH (12:13)
[2017-06-30] MEDS ORDERED: MAGNESIUM HYDROXIDE SUSP 30 ML CUP PO PRN (15:30)
[2017-06-30] MEDS: ONDANSETRON HCL 4 MG/2 ML VIAL IVP PRN (16:06)
--- NOTE | 2017-06-30 18:23 | PD.ONC.PN ---
Subjective Subjective Remarks Afebrile Pt resting in bed c/o nausea and facial pain States his facial abscess has been oozing off and on Objective Data Date Time Temp Pulse Resp B/P (MAP) Pulse Ox O2 Delivery O2 Flow Rate FiO2 06/30/17 14:25 18 06/30/17 14:00 80 21 162/77 (105) 95 06/30/17 14:00 80 06/30/17 13:00 83 20 142/63 (89) 98 06/30/17 12:00 98.4 78 24 160/96 (117) 96 06/30/17 12:00 78 06/30/17 10:00 75 06/30/17 08:00 92 06/30/17 08:00 98.7 92 33 134/63 (86) 95 06/30/17 06:00 77 06/30/17 04:00 79 06/30/17 04:00 99.0 79 19 129/70 (89) 97 06/30/17 02:00 82 06/30/17 00:00 98.7 75 21 145/68 (93) 96 06/30/17 00:00 75 06/29/17 22:36 19 06/29/17 22:00 74 06/29/17 20:00 98.4 80 14 172/73 (106) 96 06/29/17 20:00 80 06/30/17 06/30/17 06/30/17 07:00 15:00 23:00 Intake Total 1830 ml 350 ml Output Total 2150 ml 1400 ml Balance -320 ml -1050 ml Result Diagram: 06/30/17 0615 06/30/17 0515 Laboratory Results Laboratory Tests Test 06/30/17 05:15 06/30/17 06:15 Blood Urea Nitrogen 10 MG/DL Creatinine 0.48 MG/DL Random Glucose 81 MG/DL Calcium Level 8.1 MG/DL Sodium Level 145 MEQ/L Potassium Level 3.2 MEQ/L Chloride Level 104 MEQ/L Carbon Dioxide Level 34.1 MEQ/L Anion Gap 7 MEQ/L Estimat Glomerular Filtration Rate 212 ML/MIN White Blood Count 1.8 TH/MM3 Red Blood Count 2.65 MIL/MM3 Hemoglobin 7.9 GM/DL Hematocrit 22.7 % Mean Corpuscular Volume 85.5 FL Mean Corpuscular Hemoglobin 29.8 PG Mean Corpuscular Hemoglobin Concent 34.8 % Red Cell Distribution Width 15.0 % Platelet Count 19 TH/MM3 Mean Platelet Volume 8.1 FL Neutrophils (%) (Auto) 62.9 % Lymphocytes (%) (Auto) 19.7 % Monocytes (%) (Auto) 16.9 % Eosinophils (%) (Auto) 0.2 % Basophils (%) (Auto) 0.3 % Neutrophils # (Auto) 1.1 TH/MM3 Lymphocytes # (Auto) 0.4 TH/MM3 Monocytes # (Auto) 0.3 TH/MM3 Eosinophils # (Auto) 0.0 TH/MM3 Basophils # (Auto) 0.0 TH/MM3 CBC Comment AUTO DIFF Differential Total Cells Counted 100 Neutrophils % (Manual) 74 % Band Neutrophils % 1 % Lymphocytes % 14 % Monocytes % 11 % Neutrophils # (Manual) 1.4 TH/MM3 Differential Comment FINAL DIFF MANUAL Toxic Granulation 1+ Platelet Estimate LOW Platelet Morphology Comment NORMAL Ovalocytes 1+ Keratocytes OCC Culture Results Microbiology Date/Time Source Procedure Growth Status 06/28/17 14:00 Abscess Face Gram Stain - Final Complete 06/28/17 14:00 Wound Culture - Final Enterobacter Cloacae Complete Administered Medications Medications (Trade) Dose Ordered Sig/Emma Route PRN Reason Start Time Stop Time Status Last Admin Dose Admin Sodium Chloride 1,000 ml @ 100 mls/hr Q10H IV 06/20/17 10:51 06/30/17 12:13 Sodium Chloride (NS Flush) 2 ml UNSCH PRN IV FLUSH FLUSH AFTER USING IV ACCESS 06/20/17 11:00 06/21/17 04:42 Sodium Chloride (NS Flush) 2 ml BID IV FLUSH 06/20/17 21:00 06/30/17 08:49 Ondansetron HCl (Zofran Inj) 4 mg Q6H PRN IVP NAUSEA OR VOMITING 06/20/17 11:00 06/30/17 16:06 Acyclovir (Zovirax) 400 mg Q12HR PO 06/20/17 21:00 06/30/17 07:50 Fluoxetine HCl (PROzac) 20 mg DAILY PO 06/21/17 09:00 06/30/17 07:49 Sucralfate (Carafate Liq) 1 gm ACHS PO 06/20/17 17:00 06/30/17 12:13 Acetaminophen (Tylenol) 650 mg Q4H PRN PO FEVER>100.4 OR PREMEDICATION 06/21/17 08:45 06/29/17 12:48 Diphenhydramine HCl (Benadryl) 25 mg Q4H PRN PO premedication 06/24/17 12:45 06/29/17 12:49 Prochlorperazine Edisylate (Compazine Inj) 10 mg Q8H PRN IV PUSH severe nausea 06/24/17 23:30 06/25/17 21:58 Daptomycin 900 mg/ Sodium Chloride 100 ml @ 200 mls/hr Q24H IV 06/25/17 13:00 06/30/17 12:13 Hydromorphone HCl (Dilaudid Pf Inj) 0.5 mg Q4H PRN IV PUSH BREAKTHROUGH PAIN 06/29/17 09:45 06/30/17 14:48 Hydromorphone HCl (Dilaudid Pf Inj) 1 mg Q3H PRN IV PUSH pain6-10 06/29/17 22:30 06/30/17 16:06 Levofloxacin/ Dextrose 150 ml @ 100 mls/hr Q24H IV 06/30/17 12:00 06/30/17 12:12 Objective Remarks GENERAL: Obese young male resting in bed in no obvious distress. SKIN: Warm and dry. Lesion to L side of face with sanguinous saturated dressing covering. Level of erythema to face is vastly improved from 2 days ago when I last saw patient. Scattered areas of petechiae to trunk. HEAD: Normocephalic. EYES: No injection or drainage. NECK: Supple, trachea midline. CARDIOVASCULAR: Regular rate and rhythm without murmurs. RESPIRATORY: Clear anteriorly. Breathing unlabored. GASTROINTESTINAL: Abdomen soft, non-tender, nondistended. EXTREMITIES: No cyanosis, or edema. MUSCULOSKELETAL: Adequate muscle tone. NEUROLOGICAL: No obvious focal deficit. Awake, alert, and oriented x3. Assessment/Plan Problem List: (1) Neutropenic sepsis ICD Codes: A41.9 - Sepsis, unspecified organism; D70.9 - Neutropenia, unspecified Status: Resolved Plan: -- On Levaquin + Daptomycin --WBC improving. --Most recent blood cultures negative --ID following. --facial cellulitis without fluid collection (2) Facial cellulitis ICD Codes: L03.211 - Cellulitis of face Plan: --continue antibiotics. --plastic surgery following. --ENT also following. Assessment 27y/o male with AML admitted for neutropenic fever. h/o Obesity. Anxiety. Erosive esophagitis. Plan 1. Hold off on transfusion today as pt's counts starting to rise and he is asymptomatic with Hgb of 7.9. May need to keep platelets around 20k if the abscess continues to ooze. 2. Continue with dressing changes to facial abscess. 3. Monitor CBC. 4. Continue Abx per ID Discussed with RN Attending Statement The exam, history, and the medical decision-making described in the above note were completed with the assistance of the mid-level provider. I reviewed and agree with the findings presented. I attest that I had a [id number] encounter with the patient on the same day, and personally performed and documented my assessment and findings in the medical record Robina Cui Jun 30, 2017 18:22 Joey Santoyo MD Jun 30, 2017 20:30
[2017-06-30] MEDS: DOCUSATE SODIUM 100 MG CAP PO SCH (21:00)
[2017-07-01] VITALS (10 sets, daily range): BP systolic 139–154; BP diastolic 70–75; PULSE 61–82; RESP 16–20; TEMP 98–99.1; O2SAT 96–100
[2017-07-01] MEDS: HYDROmorphone HCL PF 2 MG/ML VIAL IV PUSH PRN ×4 (03:08→20:29)
[2017-07-01] MEDS: SODIUM CHLOR 0.9% 1000 ML INJ 1,000 ML IV SCH (06:33)
[2017-07-01] MEDS ORDERED: SODIUM CHLORIDE 0.9% FLUSH 10 ML FLUSH IV FLUSH PRN (06:45)
[2017-07-01] MEDS: SODIUM CHLORIDE 0.9% FLUSH 10 ML FLUSH IV FLUSH SCH ×2 (09:00→20:29)
--- NOTE | 2017-07-01 09:23 | PD.ONC.PN ---
Subjective Subjective Remarks Afebrile overnight. patient resting in bed. cellulitis continuing to improve. still with abscess in left face--has not ripened enough to charlene. feeling well today. Objective Data Date Time Temp Pulse Resp B/P (MAP) Pulse Ox O2 Delivery O2 Flow Rate FiO2 07/01/17 08:42 98.0 71 18 154/70 (98) 07/01/17 04:32 16 07/01/17 00:00 70 06/30/17 22:00 99.1 68 16 150/72 (98) 97 06/30/17 21:00 74 06/30/17 20:20 50 06/30/17 20:00 65 06/30/17 19:47 98.2 67 16 150/72 (98) 96 06/30/17 19:00 73 06/30/17 17:34 98.5 83 20 161/74 (103) 95 06/30/17 14:25 18 06/30/17 14:00 80 21 162/77 (105) 95 06/30/17 14:00 80 06/30/17 13:00 83 20 142/63 (89) 98 06/30/17 12:00 98.4 78 24 160/96 (117) 96 06/30/17 12:00 78 06/30/17 10:00 75 07/01/17 07/01/17 07/01/17 07:00 15:00 23:00 Intake Total 150 ml Output Total 1750 ml 700 ml Balance -1600 ml -700 ml Result Diagram: 06/30/17 0615 06/30/17 0515 Culture Results Microbiology Date/Time Source Procedure Growth Status 06/28/17 14:00 Abscess Face Gram Stain - Final Complete 06/28/17 14:00 Wound Culture - Final Enterobacter Cloacae Complete Administered Medications Medications (Trade) Dose Ordered Sig/Emma Route PRN Reason Start Time Stop Time Status Last Admin Dose Admin Sodium Chloride 1,000 ml @ 100 mls/hr Q10H IV 06/20/17 10:51 06/30/17 12:13 Sodium Chloride (NS Flush) 2 ml UNSCH PRN IV FLUSH FLUSH AFTER USING IV ACCESS 06/20/17 11:00 06/21/17 04:42 Sodium Chloride (NS Flush) 2 ml BID IV FLUSH 06/20/17 21:00 06/30/17 23:20 Ondansetron HCl (Zofran Inj) 4 mg Q6H PRN IVP NAUSEA OR VOMITING 06/20/17 11:00 06/30/17 16:06 Acyclovir (Zovirax) 400 mg Q12HR PO 06/20/17 21:00 06/30/17 23:21 Fluoxetine HCl (PROzac) 20 mg DAILY PO 06/21/17 09:00 06/30/17 07:49 Sucralfate (Carafate Liq) 1 gm ACHS PO 06/20/17 17:00 06/30/17 23:19 Acetaminophen (Tylenol) 650 mg Q4H PRN PO FEVER>100.4 OR PREMEDICATION 06/21/17 08:45 06/29/17 12:48 Diphenhydramine HCl (Benadryl) 25 mg Q4H PRN PO premedication 06/24/17 12:45 06/29/17 12:49 Prochlorperazine Edisylate (Compazine Inj) 10 mg Q8H PRN IV PUSH severe nausea 06/24/17 23:30 06/25/17 21:58 Daptomycin 900 mg/ Sodium Chloride 100 ml @ 200 mls/hr Q24H IV 06/25/17 13:00 06/30/17 12:13 Hydromorphone HCl (Dilaudid Pf Inj) 1 mg Q3H PRN IV PUSH pain6-10 06/29/17 22:30 06/30/17 16:06 Levofloxacin/ Dextrose 150 ml @ 100 mls/hr Q24H IV 06/30/17 12:00 06/30/17 12:12 Docusate Sodium (Colace) 100 mg BID PO 06/30/17 21:00 06/30/17 21:00 Heparin Sodium (Porcine) (Heparin Central Flush) 500 units UNSCH IV FLUSH 07/01/17 06:45 07/01/17 07:47 Objective Remarks GENERAL: Young man, sitting up in bed in [place]. appears comfortable. SKIN: Warm and dry. 2.5cm indurated mass, left jaw with some scant bloody drainage. no fluctuance. no streaking erythema. HEAD: Normocephalic. EYES: No injection or drainage. NECK: Supple, trachea midline. CARDIOVASCULAR: Regular rate and rhythm RESPIRATORY: Breath sounds equal bilaterally. No accessory muscle use. GASTROINTESTINAL: Abdomen soft, non-tender, nondistended. EXTREMITIES: No cyanosis. MUSCULOSKELETAL: Adequate muscle tone. NEUROLOGICAL: No obvious focal deficit. Awake, alert, and oriented x3. Assessment/Plan Problem List: (1) Neutropenic sepsis ICD Codes: A41.9 - Sepsis, unspecified organism; D70.9 - Neutropenia, unspecified Status: Resolved Plan: -- On Levaquin + Daptomycin --wound culture growing enterobacter --Most recent blood cultures negative --ID following. --facial cellulitis without fluid collection (2) Facial cellulitis ICD Codes: L03.211 - Cellulitis of face Plan: --continue antibiotics. --plastic surgery following. --ENT also following. (3) SIRS (systemic inflammatory response syndrome) ICD Codes: R65.10 - Systemic inflammatory response syndrome (SIRS) of non- infectious origin without acute organ dysfunction Status: Acute (4) Anemia ICD Codes: D64.9 - Anemia, unspecified Status: Acute (5) Neutropenia ICD Codes: D70.9 - Neutropenia, unspecified Status: Acute (6) Thrombocytopenia ICD Codes: D69.6 - Thrombocytopenia, unspecified Status: Acute (7) AML (acute myelogenous leukemia) ICD Codes: C92.00 - Acute myeloblastic leukemia, not having achieved remission Status: Chronic Assessment 27y/o male with AML admitted for neutropenic fever. h/o Obesity. Anxiety. Erosive esophagitis. Plan 1. continue antibiotics 2. monitor CBC 3. continue supportive care. 4. no transfusion today. Attending Statement The exam, history, and the medical decision-making described in the above note were completed with the assistance of the mid-level provider. I reviewed and agree with the findings presented. I attest that I had a [id number] encounter with the patient on the same day, and personally performed and documented my assessment and findings in the medical record AML in CR # 4 s/p consolidation with HiDAC times 3 pancytopenia improving Enterobacter sepsis and facial cellulitis abscess draining small amount of clear fluid with some blood occasionally wound culture--Enterobacter cloacae--pansenstive no blood products today d/w rn o/n events reviewed Fartun Pagan Jul 01, 2017 09:23 Joey Santoyo MD Jul 01, 2017 22:06
[2017-07-01] MEDS: FLUoxetine HCL 20 MG CAP PO SCH (09:29)
[2017-07-01] MEDS: DOCUSATE SODIUM 100 MG CAP PO SCH ×2 (09:29→20:30)
[2017-07-01] MEDS: ACYCLOVIR 200 MG CAP PO SCH ×2 (09:29→20:30)
[2017-07-01] MEDS: SUCRALFATE 1 GM/10 ML CUP PO SCH ×4 (09:29→20:29)
[2017-07-01] MEDS: ONDANSETRON HCL 4 MG/2 ML VIAL IVP PRN (09:38)
[2017-07-01 12:06] LABS: AUTOMATED NEUTROPHIL # 1.2 TH/MM3 (1.8-7.7); BASOPHIL % 0.5 % (0.0-2.0); EOSINOPHIL % 0.1 % (0.0-4.0); HEMATOCRIT 21.4 % (39.0-51.0); HEMOGLOBIN 7.4 GM/DL (13.0-17.0); LYMPH % 21.6 % (9.0-44.0); LYMPHOCYTE # 0.4 TH/MM3 (1.0-4.8); MEAN CELL VOLUME 83.9 FL (80.0-100.0); MEAN CORPUSCULAR HEMOGLOBIN 29.2 PG (27.0-34.0); MEAN CORPUSCULAR HGB CONC 34.8 % (32.0-36.0); MEAN PLATELET VOLUME 7.9 FL (7.0-11.0); MONO % 19.4 % (0.0-8.0); MONOCYTE # 0.4 TH/MM3 (0-0.9); NEUT % 58.4 % (16.0-70.0); PLATELET COUNT 22 TH/MM3 (150-450); RED BLOOD COUNT 2.55 MIL/MM3 (4.50-5.90); RED CELL DISTRIBUTION WIDTH 14.2 % (11.6-17.2)
[2017-07-01] MEDS: LEVOFLOXACIN 750 MG PREMIX INJ 150 ML IV SCH (12:10)
[2017-07-01 12:13] LABS: ALBUMIN 2.3 GM/DL (3.4-5.0); AST (GOT) 26 U/L (15-37); BICARBONATE 33.8 MEQ/L (21.0-32.0); BLOOD UREA NITROGEN 7 MG/DL (7-18); CALCIUM 8.4 MG/DL (8.5-10.1); CHLORIDE 104 MEQ/L (98-107); GLOMERULAR FILTRATION RATE 203 ML/MIN (>89); GLUCOSE,RANDOM 85 MG/DL (74-106); SODIUM (NA) 144 MEQ/L (136-145)
[2017-07-01 12:14] LABS: ALT (GPT) 33 U/L (12-78)
[2017-07-01 12:16] LABS: ALKALINE PHOSPHATASE 69 U/L (45-117); TOTAL BILIRUBIN ADULT 0.8 MG/DL (0.2-1.0); TOTAL PROTEIN 6.1 GM/DL (6.4-8.2)
[2017-07-01 13:15] LABS: BANDS 7 % (0-6); LYMPHOCYTES 21 % (9-44); METAMYELOCYTES 1 % (0-1); MONOCYTES 13 % (0-8); NEUTROPHIL # MANUAL DIFF 1.3 TH/MM3 (1.8-7.7); POLYS (SEG NEUTROPHILS) 57 % (16-70)
--- NOTE | 2017-07-01 13:31 | HHI.PR ---
Subjective Remarks No fevers overnight. CBC shows stability of blood counts. Patient reports her last 24 hours he's had drainage at his left jaw wound. Objective Vital Signs Date Time Temp Pulse Resp B/P (MAP) Pulse Ox O2 Delivery O2 Flow Rate FiO2 07/01/17 12:08 99.1 61 18 139/75 (96) 97 07/01/17 08:42 98.0 71 18 154/70 (98) 07/01/17 04:32 16 07/01/17 00:00 70 06/30/17 22:00 99.1 68 16 150/72 (98) 97 06/30/17 21:00 74 06/30/17 20:20 50 06/30/17 20:00 65 06/30/17 19:47 98.2 67 16 150/72 (98) 96 06/30/17 19:00 73 06/30/17 17:34 98.5 83 20 161/74 (103) 95 06/30/17 14:25 18 06/30/17 14:00 80 21 162/77 (105) 95 06/30/17 14:00 80 I/O 06/30/17 06/30/17 06/30/17 07/01/17 07/01/17 07/01/17 07:00 15:00 23:00 07:00 15:00 23:00 Intake Total 1830 ml 350 ml 150 ml Output Total 2150 ml 1400 ml 400 ml 1750 ml 700 ml Balance -320 ml -1050 ml -400 ml -1600 ml -700 ml Intake Oral 480 ml 150 ml IV Total 1350 ml 350 ml Output Urine Total 2150 ml 1400 ml 1750 ml 700 ml Emesis 400 ml # Voids 3 2 # Bowel Movements 0 Result Diagram: 07/01/17 1130 07/01/17 1130 Objective Remarks GENERAL: NAD, A&Ox3 HEAD: Normocephalic. NECK: Supple, trachea midline. No lymphadenopathy. EYES: No scleral icterus. No injection or drainage. CARDIOVASCULAR: Regular rate and rhythm without murmurs, gallops, or rubs. RESPIRATORY: Breath sounds equal bilaterally. No accessory muscle use. GASTROINTESTINAL: Abdomen soft, non-tender, nondistended. MUSCULOSKELETAL: No cyanosis, or edema. SKIN: Warm and dry. Erythema and slight drainage at left lower jaw. 8 x 6 cm palpable area of induration. NEURO: No focal neurological deficitis. A/P Problem List: (1) Facial cellulitis ICD Code: L03.211 - Cellulitis of face (2) Neutropenic sepsis ICD Code: A41.9 - Sepsis, unspecified organism; D70.9 - Neutropenia, unspecified Status: Resolved (3) Sepsis ICD Code: A41.9 - Sepsis, unspecified organism Status: Resolved (4) AML (acute myelogenous leukemia) ICD Code: C92.00 - Acute myeloblastic leukemia, not having achieved remission Status: Chronic (5) Neutropenic fever ICD Code: D70.9 - Neutropenia, unspecified; R50.81 - Fever presenting with conditions classified elsewhere Status: Resolved (6) Pancytopenia ICD Code: D61.818 - Other pancytopenia (7) Bacteremia, coagulase-negative staphylococcal ICD Code: R78.81 - Bacteremia Status: Resolved (8) Pancytopenia due to antineoplastic chemotherapy ICD Code: D61.810 - Antineoplastic chemotherapy induced pancytopenia; T45.1X5A - Adverse effect of antineoplastic and immunosuppressive drugs, initial encounter Status: Acute Assessment and Plan 27-year-old male admitted secondary to pancytopenia with sepsis including neutropenic fever related to bacteremia and left jaw cellulitis. Labs reviewed. Hypokalemia is present and white blood cell count has trended upwards again. Continue to monitor labs. Labs ordered for further monitoring. Continue to follow CBC. Sepsis Neutropenic fever Resolved bacteremia with Enterobacter facial cellulitis ID following. continue with broad spectrum IV Antibiotics. continue with pain control. Continue to follow the cultures. Acute myeloid leukemia Neutropenia Pancytopenia Thrombocytopenia Hematology/Oncology following. Slight improvement seen daily Follow CBC Consider transfusions as needed Hypokalemia will replace and monitor. Gen. anxiety disorder Chronic depression Xanax as needed Clonazepam at night Fluoxetine daily DVT prophylaxis SCDs Avoid anticoagulation in the setting of pancytopenia Nilson Hernandez MD Jul 01, 2017 13:30
[2017-07-01] MEDS ORDERED: POTASSIUM CHLORIDE 20 MEQ PWD PACKET PO ONE (14:00)
--- NOTE | 2017-07-01 15:20 | HHI.IDPN ---
Note Infectious Disease Note Patient notes pain in the left face No SANTIAGO. Left submandibular erythema is improved. Still has swelling. Drainage now bloody from the left face lesion. Was draining purulent fluid before. Afebrile. Neck is supple. No nausea. 27-year-old white male who has AML. The patient has been undergoing consolidation chemotherapy and he received the third cycle of chemotherapy last week. The patient developed fever and noted a tiny lump at the left sub mandible area of the chin. He states that he squeezed it but did not get any fluid and it became slightly enlarged and erythematous. That was 4 days ago. He subsequently started getting fever and chills also had nausea and vomiting and diarrhea. PAST MEDICAL HISTORY 1. AML. The patient is noted to be in remission and has been undergoing consolidative chemotherapy. 2. History of erosive esophagitis. 3. Anxiety. 4. Obesity. ALLERGIES NO KNOWN DRUG ALLERGIES. MEDICATIONS 1. Daptomycin. 2. Levaquin 3. Acyclovir. OBJECTIVE: Vital Signs Date Time Temp Pulse Resp B/P (MAP) Pulse Ox O2 Delivery O2 Flow Rate FiO2 07/01/17 12:08 99.1 61 18 139/75 (96) 97 07/01/17 08:42 98.0 71 18 154/70 (98) 07/01/17 04:32 16 07/01/17 00:00 70 06/30/17 22:00 99.1 68 16 150/72 (98) 97 06/30/17 21:00 74 06/30/17 20:20 50 06/30/17 20:00 65 06/30/17 19:47 98.2 67 16 150/72 (98) 96 06/30/17 19:00 73 06/30/17 17:34 98.5 83 20 161/74 (103) 95 Laboratory Tests Test 06/30/17 06:15 07/01/17 11:30 White Blood Count 1.8 TH/MM3 2.0 TH/MM3 Red Blood Count 2.65 MIL/MM3 2.55 MIL/MM3 Hemoglobin 7.9 GM/DL 7.4 GM/DL Hematocrit 22.7 % 21.4 % Mean Corpuscular Volume 85.5 FL 83.9 FL Mean Corpuscular Hemoglobin 29.8 PG 29.2 PG Mean Corpuscular Hemoglobin Concent 34.8 % 34.8 % Red Cell Distribution Width 15.0 % 14.2 % Platelet Count 19 TH/MM3 22 TH/MM3 Mean Platelet Volume 8.1 FL 7.9 FL Neutrophils (%) (Auto) 62.9 % 58.4 % Lymphocytes (%) (Auto) 19.7 % 21.6 % Monocytes (%) (Auto) 16.9 % 19.4 % Eosinophils (%) (Auto) 0.2 % 0.1 % Basophils (%) (Auto) 0.3 % 0.5 % Neutrophils # (Auto) 1.1 TH/MM3 1.2 TH/MM3 Lymphocytes # (Auto) 0.4 TH/MM3 0.4 TH/MM3 Monocytes # (Auto) 0.3 TH/MM3 0.4 TH/MM3 Eosinophils # (Auto) 0.0 TH/MM3 0.0 TH/MM3 Basophils # (Auto) 0.0 TH/MM3 0.0 TH/MM3 CBC Comment AUTO DIFF AUTO DIFF Differential Total Cells Counted 100 100 Neutrophils % (Manual) 74 % 57 % Band Neutrophils % 1 % 7 % Lymphocytes % 14 % 21 % Monocytes % 11 % 13 % Neutrophils # (Manual) 1.4 TH/MM3 1.3 TH/MM3 Differential Comment FINAL DIFF MANUAL FINAL DIFF MANUAL Toxic Granulation 1+ Platelet Estimate LOW LOW Platelet Morphology Comment NORMAL NORMAL Ovalocytes 1+ Keratocytes OCC Eosinophils % 1 % Metamyelocytes 1 % Laboratory Tests Test 06/30/17 05:15 07/01/17 11:30 Blood Urea Nitrogen 10 MG/DL 7 MG/DL Creatinine 0.48 MG/DL 0.50 MG/DL Random Glucose 81 MG/DL 85 MG/DL Calcium Level 8.1 MG/DL 8.4 MG/DL Sodium Level 145 MEQ/L 144 MEQ/L Potassium Level 3.2 MEQ/L 3.2 MEQ/L Chloride Level 104 MEQ/L 104 MEQ/L Carbon Dioxide Level 34.1 MEQ/L 33.8 MEQ/L Anion Gap 7 MEQ/L 6 MEQ/L Estimat Glomerular Filtration Rate 212 ML/MIN 203 ML/MIN Total Protein 6.1 GM/DL Albumin 2.3 GM/DL Alkaline Phosphatase 69 U/L Aspartate Amino Transf (AST/SGOT) 26 U/L Alanine Aminotransferase (ALT/SGPT) 33 U/L Total Bilirubin 0.8 MG/DL Date/Time Source Procedure Growth Status 06/28/17 14:00 Abscess Face Gram Stain - Final Complete 06/28/17 14:00 Wound Culture - Final Enterobacter Cloacae Complete IMAGING: Maxillofacial CT 06/25/17 1431 Signed Impressions: Service Date/Time: Sunday, June 25, 2017 15:55 - CONCLUSION: 1. Left- sided cellulitis as above without discrete or drainable fluid collections to suggest focal abscess. Mildly enlarged reactive lymph nodes in the left submental region and left cervical region. Leander Fiore MD Face MRI 06/23/17 0000 Signed Impressions: Service Date/Time: Friday, June 23, 2017 11:57 - CONCLUSION: Superficial inflammatory changes. Given the very low white count developing abscess probably not possible. Correlation suggested. Richy Bonner MD FACR Chest X-Ray 06/20/17 0939 Signed Impressions: Service Date/Time: Tuesday, June 20, 2017 09:49 - CONCLUSION: No acute disease. Katie Hollins MD PHYSICAL EXAM: GENERAL: No acute distress. Awake, alert. HEENT: Erythematous firm mobile area of swelling at the left submandibular area is less tender. The extraocular movements grossly intact, pupils reactive to light. No icterus. Oropharynx moist mucosa without lesions. NECK: Supple. No adenopathy. The neck is obese. LUNGS: Clear breath sounds. HEART: Distant S1-S2 without murmurs, rubs or gallops. ABDOMEN: Obese, soft, no tenderness. EXTREMITIES: No clubbing or cyanosis or edema. SKIN: No diffuse rash. NEUROLOGIC: No gross focal findings. PSYCHE: Pleasant, calm and cooperative. IMPRESSION 1. Enterobacter sepsis in patient with persistent fever, chills and neutropenia and also tachycardia, and hypotension. 2. Cellulitis of the left face. WBC improving and now probably forming abscess but it is draining. Culture has Enterobacter cloacae. Now has bloody drainage. 3. Neutropenia no admission. 4. AML in a patient who is post consolidation chemotherapy after going into remission. 5. Thrombocytopenia and anemia. RECOMMENDATIONS 1. Continue IV Levaquin. 2. Continue Daptomycin. 3. Continue Acyclovir. 4. Monitor temp and counts. 5. Monitor the clinical status. 6. Will ask plastic surgeon to reevaluate. He needs to be cautioned about hygiene and to avoid scratching any lesions of the skin. Tre Villegas MD Jul 01, 2017 15:20
[2017-07-01] MEDS: DAPTOmycin INJ 900 MG in SODIUM CHLORIDE 0.9% INJ 100 ML IV SCH (15:46)
[2017-07-01] MEDS ORDERED: ALTEPLASE RECOMBINANT 2 MG VIAL INTRACATH ONE (17:00)
[2017-07-02] VITALS (21 sets, daily range): BP systolic 128–153; BP diastolic 63–80; PULSE 56–80; RESP 16; TEMP 97.8–98.6; O2SAT 95–100
[2017-07-02] MEDS: HYDROmorphone HCL PF 2 MG/ML VIAL IV PUSH PRN ×6 (02:26→23:21)
[2017-07-02] MEDS: SODIUM CHLOR 0.9% 1000 ML INJ 1,000 ML IV SCH ×2 (02:51→21:15)
[2017-07-02 04:38] LABS: BASOPHIL % 0.2 % (0.0-2.0); EOSINOPHIL % 0.1 % (0.0-4.0); HEMOGLOBIN 7.2 GM/DL (13.0-17.0); LYMPH % 28.3 % (9.0-44.0); LYMPHOCYTE # 0.6 TH/MM3 (1.0-4.8); MEAN CELL VOLUME 83.9 FL (80.0-100.0); MEAN CORPUSCULAR HEMOGLOBIN 29.5 PG (27.0-34.0); MEAN CORPUSCULAR HGB CONC 35.2 % (32.0-36.0); MEAN PLATELET VOLUME 8.3 FL (7.0-11.0); MONO % 25.2 % (0.0-8.0); MONOCYTE # 0.5 TH/MM3 (0-0.9); NEUT % 46.2 % (16.0-70.0); PLATELET COUNT 24 TH/MM3 (150-450); RED BLOOD COUNT 2.43 MIL/MM3 (4.50-5.90); RED CELL DISTRIBUTION WIDTH 14.4 % (11.6-17.2); WHITE BLOOD COUNT 2.1 TH/MM3 (4.0-11.0)
[2017-07-02 04:53] LABS: HEMATOCRIT 20.4 % (39.0-51.0)
[2017-07-02 05:04] LABS: ALBUMIN 2.3 GM/DL (3.4-5.0); AST (GOT) 26 U/L (15-37); BICARBONATE 34.8 MEQ/L (21.0-32.0); BLOOD UREA NITROGEN 8 MG/DL (7-18); CALCIUM 8.3 MG/DL (8.5-10.1); CHLORIDE 104 MEQ/L (98-107); CREATININE 0.42 MG/DL (0.60-1.30); GLOMERULAR FILTRATION RATE 248 ML/MIN (>89); GLUCOSE,RANDOM 79 MG/DL (74-106); SODIUM (NA) 143 MEQ/L (136-145)
[2017-07-02 05:08] LABS: ALKALINE PHOSPHATASE 68 U/L (45-117); ALT (GPT) 39 U/L (12-78); TOTAL BILIRUBIN ADULT 0.8 MG/DL (0.2-1.0); TOTAL PROTEIN 6.3 GM/DL (6.4-8.2)
[2017-07-02] MEDS: DOCUSATE SODIUM 100 MG CAP PO SCH ×2 (08:37→21:14)
[2017-07-02] MEDS: SODIUM CHLORIDE 0.9% FLUSH 10 ML FLUSH IV FLUSH SCH ×2 (08:37→21:00)
[2017-07-02] MEDS: FLUoxetine HCL 20 MG CAP PO SCH (08:37)
[2017-07-02] MEDS: ACYCLOVIR 200 MG CAP PO SCH ×2 (08:37→21:14)
[2017-07-02] MEDS: SUCRALFATE 1 GM/10 ML CUP PO SCH ×4 (08:37→21:14)
[2017-07-02 08:41] LABS: BANDS 17 % (0-6); CORRECTED NUCLEATED RBC 1 /100 WBC (0-0); LYMPHOCYTES 27 % (9-44); MONOCYTES 16 % (0-8); NEUTROPHIL # MANUAL DIFF 1.2 TH/MM3 (1.8-7.7); NUCLEATED RED BLOOD CELL 1 (0-0); POLYS (SEG NEUTROPHILS) 40 % (16-70)
[2017-07-02 08:42] LABS: KERATOCYTES OCC (NORMAL)
--- NOTE | 2017-07-02 09:36 | PD.ONC.PN ---
Subjective Subjective Remarks Afebrile overnight. patient resting in bed. still having a good amount of facial pain. feeling tired. otherwise without complaints. Objective Data Date Time Temp Pulse Resp B/P (MAP) Pulse Ox O2 Delivery O2 Flow Rate FiO2 07/02/17 06:19 63 07/02/17 05:06 77 07/02/17 04:42 57 07/02/17 04:18 69 16 142/73 (96) 100 07/02/17 04:14 16 07/02/17 04:00 64 07/02/17 03:00 64 07/02/17 02:00 74 07/02/17 01:00 66 07/02/17 00:26 75 07/02/17 00:25 64 16 148/74 (98) 97 07/02/17 00:00 56 07/01/17 23:00 76 07/01/17 22:00 70 07/01/17 21:00 68 07/01/17 20:15 77 16 149/73 (98) 100 07/01/17 20:15 81 07/01/17 20:00 82 07/01/17 19:00 82 07/01/17 17:07 98.6 67 20 144/71 (95) 96 07/01/17 12:08 99.1 61 18 139/75 (96) 97 07/02/17 07/02/17 07/02/17 06:59 14:59 22:59 Intake Total 1160 ml Output Total 1950 ml Balance -790 ml Result Diagram: 07/02/17 0300 07/02/17 0300 Laboratory Results Laboratory Tests Test 07/01/17 11:30 07/02/17 03:00 White Blood Count 2.0 TH/MM3 2.1 TH/MM3 Red Blood Count 2.55 MIL/MM3 2.43 MIL/MM3 Hemoglobin 7.4 GM/DL 7.2 GM/DL Hematocrit 21.4 % 20.4 % Mean Corpuscular Volume 83.9 FL 83.9 FL Mean Corpuscular Hemoglobin 29.2 PG 29.5 PG Mean Corpuscular Hemoglobin Concent 34.8 % 35.2 % Red Cell Distribution Width 14.2 % 14.4 % Platelet Count 22 TH/MM3 24 TH/MM3 Mean Platelet Volume 7.9 FL 8.3 FL Neutrophils (%) (Auto) 58.4 % 46.2 % Lymphocytes (%) (Auto) 21.6 % 28.3 % Monocytes (%) (Auto) 19.4 % 25.2 % Eosinophils (%) (Auto) 0.1 % 0.1 % Basophils (%) (Auto) 0.5 % 0.2 % Neutrophils # (Auto) 1.2 TH/MM3 1.0 TH/MM3 Lymphocytes # (Auto) 0.4 TH/MM3 0.6 TH/MM3 Monocytes # (Auto) 0.4 TH/MM3 0.5 TH/MM3 Eosinophils # (Auto) 0.0 TH/MM3 0.0 TH/MM3 Basophils # (Auto) 0.0 TH/MM3 0.0 TH/MM3 CBC Comment AUTO DIFF AUTO DIFF Differential Total Cells Counted 100 100 Neutrophils % (Manual) 57 % 40 % Band Neutrophils % 7 % 17 % Lymphocytes % 21 % 27 % Monocytes % 13 % 16 % Eosinophils % 1 % Neutrophils # (Manual) 1.3 TH/MM3 1.2 TH/MM3 Metamyelocytes 1 % Differential Comment FINAL DIFF MANUAL FINAL DIFF MANUAL Platelet Estimate LOW LOW Platelet Morphology Comment NORMAL NORMAL Blood Urea Nitrogen 7 MG/DL 8 MG/DL Creatinine 0.50 MG/DL 0.42 MG/DL Random Glucose 85 MG/DL 79 MG/DL Total Protein 6.1 GM/DL 6.3 GM/DL Albumin 2.3 GM/DL 2.3 GM/DL Calcium Level 8.4 MG/DL 8.3 MG/DL Alkaline Phosphatase 69 U/L 68 U/L Aspartate Amino Transf (AST/SGOT) 26 U/L 26 U/L Alanine Aminotransferase (ALT/SGPT) 33 U/L 39 U/L Total Bilirubin 0.8 MG/DL 0.8 MG/DL Sodium Level 144 MEQ/L 143 MEQ/L Potassium Level 3.2 MEQ/L 3.6 MEQ/L Chloride Level 104 MEQ/L 104 MEQ/L Carbon Dioxide Level 33.8 MEQ/L 34.8 MEQ/L Anion Gap 6 MEQ/L 4 MEQ/L Estimat Glomerular Filtration Rate 203 ML/MIN 248 ML/MIN Nucleated Red Blood Cells 1 /100 WBC Keratocytes OCC Administered Medications Medications (Trade) Dose Ordered Sig/Emma Route PRN Reason Start Time Stop Time Status Last Admin Dose Admin Sodium Chloride 1,000 ml @ 100 mls/hr Q10H IV 06/20/17 10:51 06/30/17 12:13 Sodium Chloride (NS Flush) 2 ml UNSCH PRN IV FLUSH FLUSH AFTER USING IV ACCESS 06/20/17 11:00 06/21/17 04:42 Sodium Chloride (NS Flush) 2 ml BID IV FLUSH 06/20/17 21:00 07/01/17 20:29 Ondansetron HCl (Zofran Inj) 4 mg Q6H PRN IVP NAUSEA OR VOMITING 06/20/17 11:00 07/01/17 09:38 Acyclovir (Zovirax) 400 mg Q12HR PO 06/20/17 21:00 07/02/17 08:37 Fluoxetine HCl (PROzac) 20 mg DAILY PO 06/21/17 09:00 07/02/17 08:37 Sucralfate (Carafate Liq) 1 gm ACHS PO 06/20/17 17:00 07/02/17 08:37 Acetaminophen (Tylenol) 650 mg Q4H PRN PO FEVER>100.4 OR PREMEDICATION 06/21/17 08:45 06/29/17 12:48 Diphenhydramine HCl (Benadryl) 25 mg Q4H PRN PO premedication 06/24/17 12:45 06/29/17 12:49 Prochlorperazine Edisylate (Compazine Inj) 10 mg Q8H PRN IV PUSH severe nausea 06/24/17 23:30 06/25/17 21:58 Daptomycin 900 mg/ Sodium Chloride 100 ml @ 200 mls/hr Q24H IV 06/25/17 13:00 07/01/17 15:46 Hydromorphone HCl (Dilaudid Pf Inj) 1 mg Q3H PRN IV PUSH pain6-10 06/29/17 22:30 07/02/17 06:51 Levofloxacin/ Dextrose 150 ml @ 100 mls/hr Q24H IV 06/30/17 12:00 07/01/17 12:10 Docusate Sodium (Colace) 100 mg BID PO 06/30/17 21:00 07/02/17 08:37 Heparin Sodium (Porcine) (Heparin Central Flush) 500 units UNSCH IV FLUSH 07/01/17 06:45 07/01/17 07:47 Objective Remarks GENERAL: Young man, sitting up in bed in nad. SKIN: Warm and dry. 2.5cm indurated mass, left jaw, wick in place with bandage overlying, some oozing blood noted around the middle. HEAD: Normocephalic. EYES: No injection or drainage. NECK: Supple, trachea midline. CARDIOVASCULAR: Regular rate and rhythm RESPIRATORY: Breath sounds equal bilaterally. No accessory muscle use. GASTROINTESTINAL: Abdomen soft, non-tender, nondistended. EXTREMITIES: No cyanosis. MUSCULOSKELETAL: Adequate muscle tone. NEUROLOGICAL: awake and alert, normal speech. Assessment/Plan Problem List: (1) Neutropenic sepsis ICD Codes: A41.9 - Sepsis, unspecified organism; D70.9 - Neutropenia, unspecified Status: Resolved Plan: -- On Levaquin + Daptomycin --wound culture growing enterobacter --Most recent blood cultures negative --ID following. --facial cellulitis without fluid collection (2) Facial cellulitis ICD Codes: L03.211 - Cellulitis of face Plan: --continue antibiotics. --plastic surgery following. --ENT also following. (3) SIRS (systemic inflammatory response syndrome) ICD Codes: R65.10 - Systemic inflammatory response syndrome (SIRS) of non- infectious origin without acute organ dysfunction Status: Acute (4) Anemia ICD Codes: D64.9 - Anemia, unspecified Status: Acute (5) Neutropenia ICD Codes: D70.9 - Neutropenia, unspecified Status: Acute (6) Thrombocytopenia ICD Codes: D69.6 - Thrombocytopenia, unspecified Status: Acute (7) AML (acute myelogenous leukemia) ICD Codes: C92.00 - Acute myeloblastic leukemia, not having achieved remission Status: Chronic Assessment 27y/o male with AML admitted for neutropenic fever. h/o Obesity. Anxiety. Erosive esophagitis. Plan 1. continue antibiotics 2. no transfusion today Attending Statement The exam, history, and the medical decision-making described in the above note were completed with the assistance of the mid-level provider. I reviewed and agree with the findings presented. I attest that I had a [id number] encounter with the patient on the same day, and personally performed and documented my assessment and findings in the medical record pancytopenia facial cellulitis stable on Levaquin, Dapto and acyclovir supportive care not ready to be discharged yet due to active infection and low counts d/w rn o/n events reviewed Fartun Pagan Jul 02, 2017 09:36 Joey Santoyo MD Jul 02, 2017 21:52
[2017-07-02] MEDS: ONDANSETRON HCL 4 MG/2 ML VIAL IVP PRN (11:14)
[2017-07-02] MEDS: LEVOFLOXACIN 750 MG PREMIX INJ 150 ML IV SCH (11:14)
--- NOTE | 2017-07-02 11:27 | HHI.IDPN ---
Note Infectious Disease Note Patient notes pain in the left face 10/17. No other complaints. No SANTIAGO. Left submandibular erythema is improved. Wound now packed with wick. Afebrile. Neck is supple. 27-year-old white male who has AML. The patient has been undergoing consolidation chemotherapy and he received the third cycle of chemotherapy last week. The patient developed fever and noted a tiny lump at the left sub mandible area of the chin. He states that he squeezed it but did not get any fluid and it became slightly enlarged and erythematous. That was 4 days ago. He subsequently started getting fever and chills also had nausea and vomiting and diarrhea. PAST MEDICAL HISTORY 1. AML. The patient is noted to be in remission and has been undergoing consolidative chemotherapy. 2. History of erosive esophagitis. 3. Anxiety. 4. Obesity. ALLERGIES NO KNOWN DRUG ALLERGIES. MEDICATIONS 1. Daptomycin. 2. Levaquin 3. Acyclovir. OBJECTIVE: Vital Signs Date Time Temp Pulse Resp B/P (MAP) Pulse Ox O2 Delivery O2 Flow Rate FiO2 07/02/17 08:32 97.8 66 16 140/63 (88) 99 07/02/17 06:19 63 07/02/17 05:06 77 07/02/17 04:42 57 07/02/17 04:18 69 16 142/73 (96) 100 07/02/17 04:14 16 07/02/17 04:00 64 07/02/17 03:00 64 07/02/17 02:00 74 07/02/17 01:00 66 07/02/17 00:26 75 07/02/17 00:25 64 16 148/74 (98) 97 07/02/17 00:00 56 07/01/17 23:00 76 07/01/17 22:00 70 07/01/17 21:00 68 07/01/17 20:15 77 16 149/73 (98) 100 07/01/17 20:15 81 07/01/17 20:00 82 07/01/17 19:00 82 07/01/17 17:07 98.6 67 20 144/71 (95) 96 07/01/17 12:08 99.1 61 18 139/75 (96) 97 Laboratory Tests Test 07/01/17 11:30 07/02/17 03:00 White Blood Count 2.0 TH/MM3 2.1 TH/MM3 Red Blood Count 2.55 MIL/MM3 2.43 MIL/MM3 Hemoglobin 7.4 GM/DL 7.2 GM/DL Hematocrit 21.4 % 20.4 % Mean Corpuscular Volume 83.9 FL 83.9 FL Mean Corpuscular Hemoglobin 29.2 PG 29.5 PG Mean Corpuscular Hemoglobin Concent 34.8 % 35.2 % Red Cell Distribution Width 14.2 % 14.4 % Platelet Count 22 TH/MM3 24 TH/MM3 Mean Platelet Volume 7.9 FL 8.3 FL Neutrophils (%) (Auto) 58.4 % 46.2 % Lymphocytes (%) (Auto) 21.6 % 28.3 % Monocytes (%) (Auto) 19.4 % 25.2 % Eosinophils (%) (Auto) 0.1 % 0.1 % Basophils (%) (Auto) 0.5 % 0.2 % Neutrophils # (Auto) 1.2 TH/MM3 1.0 TH/MM3 Lymphocytes # (Auto) 0.4 TH/MM3 0.6 TH/MM3 Monocytes # (Auto) 0.4 TH/MM3 0.5 TH/MM3 Eosinophils # (Auto) 0.0 TH/MM3 0.0 TH/MM3 Basophils # (Auto) 0.0 TH/MM3 0.0 TH/MM3 CBC Comment AUTO DIFF AUTO DIFF Differential Total Cells Counted 100 100 Neutrophils % (Manual) 57 % 40 % Band Neutrophils % 7 % 17 % Lymphocytes % 21 % 27 % Monocytes % 13 % 16 % Eosinophils % 1 % Neutrophils # (Manual) 1.3 TH/MM3 1.2 TH/MM3 Metamyelocytes 1 % Differential Comment FINAL DIFF MANUAL FINAL DIFF MANUAL Platelet Estimate LOW LOW Platelet Morphology Comment NORMAL NORMAL Nucleated Red Blood Cells 1 /100 WBC Keratocytes OCC Laboratory Tests Test 07/01/17 11:30 07/02/17 03:00 Blood Urea Nitrogen 7 MG/DL 8 MG/DL Creatinine 0.50 MG/DL 0.42 MG/DL Random Glucose 85 MG/DL 79 MG/DL Total Protein 6.1 GM/DL 6.3 GM/DL Albumin 2.3 GM/DL 2.3 GM/DL Calcium Level 8.4 MG/DL 8.3 MG/DL Alkaline Phosphatase 69 U/L 68 U/L Aspartate Amino Transf (AST/SGOT) 26 U/L 26 U/L Alanine Aminotransferase (ALT/SGPT) 33 U/L 39 U/L Total Bilirubin 0.8 MG/DL 0.8 MG/DL Sodium Level 144 MEQ/L 143 MEQ/L Potassium Level 3.2 MEQ/L 3.6 MEQ/L Chloride Level 104 MEQ/L 104 MEQ/L Carbon Dioxide Level 33.8 MEQ/L 34.8 MEQ/L Anion Gap 6 MEQ/L 4 MEQ/L Estimat Glomerular Filtration Rate 203 ML/MIN 248 ML/MIN Date/Time Source Procedure Growth Status 06/28/17 14:00 Abscess Face Gram Stain - Final Complete 06/28/17 14:00 Wound Culture - Final Enterobacter Cloacae Complete IMAGING: Maxillofacial CT 06/25/17 1431 Signed Impressions: Service Date/Time: Sunday, June 25, 2017 15:55 - CONCLUSION: 1. Left- sided cellulitis as above without discrete or drainable fluid collections to suggest focal abscess. Mildly enlarged reactive lymph nodes in the left submental region and left cervical region. Leander Fiore MD Face MRI 06/23/17 0000 Signed Impressions: Service Date/Time: Friday, June 23, 2017 11:57 - CONCLUSION: Superficial inflammatory changes. Given the very low white count developing abscess probably not possible. Correlation suggested. Richy Bonner MD FACR Chest X-Ray 06/20/17 0939 Signed Impressions: Service Date/Time: Tuesday, June 20, 2017 09:49 - CONCLUSION: No acute disease. Katie Hollins MD PHYSICAL EXAM: GENERAL: No acute distress. Awake, alert. HEENT: Erythematous firm mobile area of swelling at the left submandibular area is less tender. The extraocular movements grossly intact, pupils reactive to light. No icterus. Oropharynx moist mucosa without lesions. NECK: Supple. No adenopathy. The neck is obese. LUNGS: Clear breath sounds. HEART: Distant S1-S2 without murmurs, rubs or gallops. ABDOMEN: Obese, soft, no tenderness. EXTREMITIES: No clubbing or cyanosis or edema. SKIN: No diffuse rash. NEUROLOGIC: No gross focal findings. PSYCHE: Pleasant, calm and cooperative. IMPRESSION 1. Enterobacter sepsis in patient with persistent fever, chills and neutropenia and also tachycardia, and hypotension. 2. Cellulitis of the left face. WBC improving and now probably forming abscess but it is draining. Culture has Enterobacter cloacae. Now has bloody drainage. 3. Neutropenia no admission. 4. AML in a patient who is post consolidation chemotherapy after going into remission. 5. Thrombocytopenia and anemia. RECOMMENDATIONS 1. Continue IV Levaquin. 2. Continue Daptomycin. 3. Continue Acyclovir. 4. Monitor temp and counts. 5. Monitor the clinical status. 6. Monitor face lesion. Tre Villegas MD Jul 02, 2017 11:27
--- NOTE | 2017-07-02 12:36 | HHI.PR ---
Subjective Remarks Neutrophils/white blood cells are showing stability. Hemoglobin has a downward trend today. Patient has had an incision with packing at his left lower jaw wound. Objective Vital Signs Date Time Temp Pulse Resp B/P (MAP) Pulse Ox O2 Delivery O2 Flow Rate FiO2 07/02/17 11:15 98.3 60 16 133/74 (93) 95 07/02/17 08:32 97.8 66 16 140/63 (88) 99 07/02/17 06:19 63 07/02/17 05:06 77 07/02/17 04:42 57 07/02/17 04:18 69 16 142/73 (96) 100 07/02/17 04:14 16 07/02/17 04:00 64 07/02/17 03:00 64 07/02/17 02:00 74 07/02/17 01:00 66 07/02/17 00:26 75 07/02/17 00:25 64 16 148/74 (98) 97 07/02/17 00:00 56 07/01/17 23:00 76 07/01/17 22:00 70 07/01/17 21:00 68 07/01/17 20:15 77 16 149/73 (98) 100 07/01/17 20:15 81 07/01/17 20:00 82 07/01/17 19:00 82 07/01/17 17:07 98.6 67 20 144/71 (95) 96 I/O 07/01/17 07/01/17 07/01/17 07/02/17 07/02/17 07/02/17 07:00 15:00 23:00 07:00 15:00 23:00 Intake Total 150 ml 1400 ml 1160 ml Output Total 1750 ml 1400 ml 1200 ml 1950 ml 700 ml Balance -1600 ml -1400 ml 200 ml -790 ml -700 ml Intake Oral 150 ml 1400 ml 1160 ml Output Urine Total 1750 ml 1400 ml 1200 ml 1950 ml 700 ml # Bowel Movements 1 Result Diagram: 07/02/17 0300 07/02/17 0300 Objective Remarks GENERAL: NAD, A&Ox3 HEAD: Normocephalic. NECK: Supple, trachea midline. No lymphadenopathy. EYES: No scleral icterus. No injection or drainage. CARDIOVASCULAR: Regular rate and rhythm without murmurs, gallops, or rubs. RESPIRATORY: Breath sounds equal bilaterally. No accessory muscle use. GASTROINTESTINAL: Abdomen soft, non-tender, nondistended. MUSCULOSKELETAL: No cyanosis, or edema. SKIN: Warm and dry. Erythema and slight drainage at left lower jaw. 8 x 6 cm palpable area of induration. NEURO: No focal neurological deficitis. A/P Problem List: (1) Facial cellulitis ICD Code: L03.211 - Cellulitis of face (2) Neutropenic sepsis ICD Code: A41.9 - Sepsis, unspecified organism; D70.9 - Neutropenia, unspecified Status: Resolved (3) Sepsis ICD Code: A41.9 - Sepsis, unspecified organism Status: Resolved (4) AML (acute myelogenous leukemia) ICD Code: C92.00 - Acute myeloblastic leukemia, not having achieved remission Status: Chronic (5) Neutropenic fever ICD Code: D70.9 - Neutropenia, unspecified; R50.81 - Fever presenting with conditions classified elsewhere Status: Resolved (6) Pancytopenia ICD Code: D61.818 - Other pancytopenia (7) Bacteremia, coagulase-negative staphylococcal ICD Code: R78.81 - Bacteremia Status: Resolved (8) Pancytopenia due to antineoplastic chemotherapy ICD Code: D61.810 - Antineoplastic chemotherapy induced pancytopenia; T45.1X5A - Adverse effect of antineoplastic and immunosuppressive drugs, initial encounter Status: Acute Assessment and Plan 27-year-old male admitted secondary to pancytopenia with sepsis including neutropenic fever related to bacteremia and left jaw cellulitis. Labs reviewed. White blood cell counts stephanie stability. Downward trend in hemoglobin. Continue to monitor labs. Labs ordered for further monitoring. Continue to follow CBC. Continue wound care. Overall the patient's infection shows signs of improvement daily. Sepsis Neutropenic fever Resolved bacteremia with Enterobacter facial cellulitis ID following. continue with broad spectrum IV Antibiotics. continue with pain control. Continue to follow the cultures. Acute myeloid leukemia Neutropenia Pancytopenia Thrombocytopenia Hematology/Oncology following. Slight improvement seen daily Follow CBC Consider transfusions as needed Hypokalemia will replace and monitor. Gen. anxiety disorder Chronic depression Xanax as needed Clonazepam at night Fluoxetine daily DVT prophylaxis SCDs Avoid anticoagulation in the setting of pancytopenia Nilson Hernandez MD Jul 02, 2017 12:36
[2017-07-02] MEDS: DAPTOmycin INJ 900 MG in SODIUM CHLORIDE 0.9% INJ 100 ML IV SCH (14:54)
[2017-07-03] VITALS (13 sets, daily range): BP systolic 120–148; BP diastolic 54–80; PULSE 59–96; RESP 15–18; TEMP 98–98.6; O2SAT 94–100
[2017-07-03] MEDS: HYDROmorphone HCL PF 2 MG/ML VIAL IV PUSH PRN ×5 (03:55→23:27)
[2017-07-03 06:01] LABS: AUTOMATED NEUTROPHIL # 1.1 TH/MM3 (1.8-7.7); BASOPHIL % 0.4 % (0.0-2.0); HEMATOCRIT 21.5 % (39.0-51.0); HEMOGLOBIN 7.5 GM/DL (13.0-17.0); LYMPH % 26.2 % (9.0-44.0); LYMPHOCYTE # 0.6 TH/MM3 (1.0-4.8); MEAN CELL VOLUME 82.9 FL (80.0-100.0); MEAN CORPUSCULAR HEMOGLOBIN 28.9 PG (27.0-34.0); MEAN CORPUSCULAR HGB CONC 34.9 % (32.0-36.0); MEAN PLATELET VOLUME 7.8 FL (7.0-11.0); MONO % 24.7 % (0.0-8.0); MONOCYTE # 0.6 TH/MM3 (0-0.9); NEUT % 48.7 % (16.0-70.0); PLATELET COUNT 32 TH/MM3 (150-450); WHITE BLOOD COUNT 2.3 TH/MM3 (4.0-11.0)
[2017-07-03 06:10] LABS: ALBUMIN 2.6 GM/DL (3.4-5.0); ALT (GPT) 42 U/L (12-78); AST (GOT) 33 U/L (15-37); BICARBONATE 32.5 MEQ/L (21.0-32.0); BLOOD UREA NITROGEN 7 MG/DL (7-18); CALCIUM 8.3 MG/DL (8.5-10.1); CHLORIDE 101 MEQ/L (98-107); CREATININE 0.53 MG/DL (0.60-1.30); GLOMERULAR FILTRATION RATE 189 ML/MIN (>89); GLUCOSE,RANDOM 100 MG/DL (74-106); SODIUM (NA) 141 MEQ/L (136-145)
[2017-07-03 06:17] LABS: ALKALINE PHOSPHATASE 74 U/L (45-117); TOTAL BILIRUBIN ADULT 0.8 MG/DL (0.2-1.0); TOTAL PROTEIN 6.4 GM/DL (6.4-8.2)
[2017-07-03] MEDS: SODIUM CHLOR 0.9% 1000 ML INJ 1,000 ML IV SCH ×2 (07:11→20:55)
[2017-07-03 08:34] LABS: BANDS 5 % (0-6); BASOPHILS 1 % (0-2); LYMPHOCYTES 23 % (9-44); METAMYELOCYTES 2 % (0-1); MONOCYTES 14 % (0-8); NEUTROPHIL # MANUAL DIFF 1.4 TH/MM3 (1.8-7.7); POLYS (SEG NEUTROPHILS) 55 % (16-70)
[2017-07-03] MEDS: SODIUM CHLORIDE 0.9% FLUSH 10 ML FLUSH IV FLUSH SCH ×2 (09:00→20:42)
[2017-07-03] MEDS: ACYCLOVIR 200 MG CAP PO SCH ×2 (09:02→20:53)
[2017-07-03] MEDS: SUCRALFATE 1 GM/10 ML CUP PO SCH (09:02)
[2017-07-03] MEDS: DOCUSATE SODIUM 100 MG CAP PO SCH ×2 (09:03→20:52)
[2017-07-03] MEDS: FLUoxetine HCL 20 MG CAP PO SCH (09:03)
[2017-07-03] MEDS: ONDANSETRON HCL 4 MG/2 ML VIAL IVP PRN ×3 (09:15→23:24)
--- NOTE | 2017-07-03 10:45 | PD.ONC.PN ---
Subjective Subjective Remarks Afebrile overnight. Patient still having facial pain. also feeling nauseated today. he has not had anything to eat yet today. Objective Data Date Time Temp Pulse Resp B/P (MAP) Pulse Ox O2 Delivery O2 Flow Rate FiO2 07/03/17 09:00 98.5 74 16 137/76 (96) 94 07/03/17 06:00 74 07/03/17 05:00 68 07/03/17 04:00 78 07/03/17 03:55 98.3 73 16 144/72 (96) 98 07/03/17 03:00 62 07/03/17 02:00 68 07/03/17 01:00 60 07/03/17 00:00 66 07/02/17 23:13 98.3 74 16 128/67 (87) 98 07/02/17 23:00 72 07/02/17 22:00 80 07/02/17 21:00 62 07/02/17 20:00 66 07/02/17 19:30 98.5 69 16 153/80 (104) 98 07/02/17 19:00 68 07/02/17 15:07 98.6 75 16 145/65 (91) 98 07/02/17 11:15 98.3 60 16 133/74 (93) 95 07/03/17 07/03/17 07/03/17 07:00 15:00 23:00 Intake Total 480 ml 1000 ml Output Total 2100 ml 500 ml Balance -1620 ml 500 ml Result Diagram: 07/03/17 0535 07/03/17 0535 Laboratory Results Laboratory Tests Test 07/03/17 05:35 White Blood Count 2.3 TH/MM3 Red Blood Count 2.60 MIL/MM3 Hemoglobin 7.5 GM/DL Hematocrit 21.5 % Mean Corpuscular Volume 82.9 FL Mean Corpuscular Hemoglobin 28.9 PG Mean Corpuscular Hemoglobin Concent 34.9 % Red Cell Distribution Width 14.0 % Platelet Count 32 TH/MM3 Mean Platelet Volume 7.8 FL Neutrophils (%) (Auto) 48.7 % Lymphocytes (%) (Auto) 26.2 % Monocytes (%) (Auto) 24.7 % Eosinophils (%) (Auto) 0.0 % Basophils (%) (Auto) 0.4 % Neutrophils # (Auto) 1.1 TH/MM3 Lymphocytes # (Auto) 0.6 TH/MM3 Monocytes # (Auto) 0.6 TH/MM3 Eosinophils # (Auto) 0.0 TH/MM3 Basophils # (Auto) 0.0 TH/MM3 CBC Comment AUTO DIFF Differential Total Cells Counted 100 Neutrophils % (Manual) 55 % Band Neutrophils % 5 % Lymphocytes % 23 % Monocytes % 14 % Basophils % 1 % Neutrophils # (Manual) 1.4 TH/MM3 Metamyelocytes 2 % Differential Comment FINAL DIFF MANUAL Platelet Estimate LOW Platelet Morphology Comment NORMAL Blood Urea Nitrogen 7 MG/DL Creatinine 0.53 MG/DL Random Glucose 100 MG/DL Total Protein 6.4 GM/DL Albumin 2.6 GM/DL Calcium Level 8.3 MG/DL Alkaline Phosphatase 74 U/L Aspartate Amino Transf (AST/SGOT) 33 U/L Alanine Aminotransferase (ALT/SGPT) 42 U/L Total Bilirubin 0.8 MG/DL Sodium Level 141 MEQ/L Potassium Level 3.5 MEQ/L Chloride Level 101 MEQ/L Carbon Dioxide Level 32.5 MEQ/L Anion Gap 8 MEQ/L Estimat Glomerular Filtration Rate 189 ML/MIN Administered Medications Medications (Trade) Dose Ordered Sig/Emma Route PRN Reason Start Time Stop Time Status Last Admin Dose Admin Sodium Chloride 1,000 ml @ 100 mls/hr Q10H IV 06/20/17 10:51 07/03/17 07:11 Sodium Chloride (NS Flush) 2 ml UNSCH PRN IV FLUSH FLUSH AFTER USING IV ACCESS 06/20/17 11:00 06/21/17 04:42 Sodium Chloride (NS Flush) 2 ml BID IV FLUSH 06/20/17 21:00 07/01/17 20:29 Ondansetron HCl (Zofran Inj) 4 mg Q6H PRN IVP NAUSEA OR VOMITING 06/20/17 11:00 07/03/17 09:15 Acyclovir (Zovirax) 400 mg Q12HR PO 06/20/17 21:00 07/03/17 09:02 Fluoxetine HCl (PROzac) 20 mg DAILY PO 06/21/17 09:00 07/03/17 09:03 Sucralfate (Carafate Liq) 1 gm ACHS PO 06/20/17 17:00 07/03/17 09:02 Acetaminophen (Tylenol) 650 mg Q4H PRN PO FEVER>100.4 OR PREMEDICATION 06/21/17 08:45 06/29/17 12:48 Diphenhydramine HCl (Benadryl) 25 mg Q4H PRN PO premedication 06/24/17 12:45 06/29/17 12:49 Prochlorperazine Edisylate (Compazine Inj) 10 mg Q8H PRN IV PUSH severe nausea 06/24/17 23:30 06/25/17 21:58 Daptomycin 900 mg/ Sodium Chloride 100 ml @ 200 mls/hr Q24H IV 06/25/17 13:00 07/02/17 14:54 Hydromorphone HCl (Dilaudid Pf Inj) 1 mg Q3H PRN IV PUSH pain6-10 06/29/17 22:30 07/03/17 09:03 Levofloxacin/ Dextrose 150 ml @ 100 mls/hr Q24H IV 06/30/17 12:00 07/02/17 11:14 Docusate Sodium (Colace) 100 mg BID PO 06/30/17 21:00 07/03/17 09:03 Heparin Sodium (Porcine) (Heparin Central Flush) 500 units UNSCH IV FLUSH 07/01/17 06:45 07/01/17 07:47 Objective Remarks GENERAL: Young man, upright in bed in [facility]. SKIN: Warm and dry. 2cm indurated mass, left jaw, no redness surrounding, improved in appearance from yesterday, small amount of blood seeping onto bandage overlying the abscess HEAD: Normocephalic. EYES: No injection or drainage. NECK: Supple, trachea midline. CARDIOVASCULAR: Regular rate and rhythm RESPIRATORY: Breath sounds equal bilaterally. No accessory muscle use. GASTROINTESTINAL: Abdomen soft, non-tender, nondistended. EXTREMITIES: No cyanosis. NEUROLOGICAL: no obvious focal deficit. Assessment/Plan Problem List: (1) Neutropenic sepsis ICD Codes: A41.9 - Sepsis, unspecified organism; D70.9 - Neutropenia, unspecified Status: Resolved Plan: -- On Levaquin + Daptomycin --wound culture growing enterobacter --Most recent blood cultures negative --ID following. --facial cellulitis without fluid collection (2) Facial cellulitis ICD Codes: L03.211 - Cellulitis of face Plan: --continue antibiotics. (3) Neutropenia ICD Codes: D70.9 - Neutropenia, unspecified Status: Acute (4) Thrombocytopenia ICD Codes: D69.6 - Thrombocytopenia, unspecified Status: Acute (5) AML (acute myelogenous leukemia) ICD Codes: C92.00 - Acute myeloblastic leukemia, not having achieved remission Status: Chronic (6) SIRS (systemic inflammatory response syndrome) ICD Codes: R65.10 - Systemic inflammatory response syndrome (SIRS) of non- infectious origin without acute organ dysfunction Status: Acute (7) Anemia ICD Codes: D64.9 - Anemia, unspecified Status: Acute Assessment 27y/o male with AML admitted for neutropenic fever. h/o Obesity. Anxiety. Erosive esophagitis. Plan 1. continue antibiotics 2. ok to shower if patient desires 3. decrease pain medication 4. encourage oob to chair. Attending Statement The exam, history, and the medical decision-making described in the above note were completed with the assistance of the mid-level provider. I reviewed and agree with the findings presented. I attest that I had a [id number] encounter with the patient on the same day, and personally performed and documented my assessment and findings in the medical record. AML in CR # 1 s/p consolidation # 3 counts improving facial cellulitis/infection on Dapto and Levaquin discussed with ID Plan to d/c home on wednesday if continues to improve d/w rn o/n events reviewed Fartun Pagan Jul 03, 2017 10:45 Joey Santoyo MD Jul 03, 2017 12:03
[2017-07-03] MEDS: LEVOFLOXACIN 750 MG PREMIX INJ 150 ML IV SCH (12:57)
[2017-07-03] MEDS: DAPTOmycin INJ 900 MG in SODIUM CHLORIDE 0.9% INJ 100 ML IV SCH (13:00)
[2017-07-03] MEDS: PROCHLORPERAZINE INJ 10 MG/2 ML VIAL IV PUSH PRN (13:05)
--- NOTE | 2017-07-03 15:59 | HHI.PR ---
Subjective Remarks Gradual upward trend and neutrophil values. Platelets have increased today and hemoglobin has increased today. No new complaints from the patient. No packing remains in patient's left jaw wound. Objective Vital Signs Date Time Temp Pulse Resp B/P (MAP) Pulse Ox O2 Delivery O2 Flow Rate FiO2 07/03/17 11:52 59 07/03/17 09:00 98.5 74 16 137/76 (96) 94 07/03/17 06:00 74 07/03/17 05:00 68 07/03/17 04:00 78 07/03/17 03:55 98.3 73 16 144/72 (96) 98 07/03/17 03:00 62 07/03/17 02:00 68 07/03/17 01:00 60 07/03/17 00:00 66 07/02/17 23:13 98.3 74 16 128/67 (87) 98 07/02/17 23:00 72 07/02/17 22:00 80 07/02/17 21:00 62 07/02/17 20:00 66 07/02/17 19:30 98.5 69 16 153/80 (104) 98 07/02/17 19:00 68 I/O 07/02/17 07/02/17 07/02/17 07/03/17 07/03/17 07/03/17 07:00 15:00 23:00 07:00 15:00 23:00 Intake Total 1160 ml 150 ml 1100 ml 480 ml 2600 ml Output Total 1950 ml 1275 ml 1825 ml 2100 ml 1250 ml 700 ml Balance -790 ml -1125 ml -725 ml -1620 ml 1350 ml -700 ml Intake Oral 1160 ml 480 ml IV Total 150 ml 1100 ml 2600 ml Output Urine Total 1950 ml 1275 ml 1825 ml 2100 ml 1250 ml 700 ml # Bowel Movements 0 Result Diagram: 07/03/17 0535 07/03/17 0535 Objective Remarks GENERAL: NAD, A&Ox3 HEAD: Normocephalic. NECK: Supple, trachea midline. No lymphadenopathy. EYES: No scleral icterus. No injection or drainage. CARDIOVASCULAR: Regular rate and rhythm without murmurs, gallops, or rubs. RESPIRATORY: Breath sounds equal bilaterally. No accessory muscle use. GASTROINTESTINAL: Abdomen soft, non-tender, nondistended. MUSCULOSKELETAL: No cyanosis, or edema. SKIN: Warm and dry. Erythema and slight drainage at left lower jaw. 6 x 4 cm palpable area of induration. NEURO: No focal neurological deficitis. A/P Problem List: (1) Facial cellulitis ICD Code: L03.211 - Cellulitis of face (2) Neutropenic sepsis ICD Code: A41.9 - Sepsis, unspecified organism; D70.9 - Neutropenia, unspecified Status: Resolved (3) Sepsis ICD Code: A41.9 - Sepsis, unspecified organism Status: Resolved (4) AML (acute myelogenous leukemia) ICD Code: C92.00 - Acute myeloblastic leukemia, not having achieved remission Status: Chronic (5) Neutropenic fever ICD Code: D70.9 - Neutropenia, unspecified; R50.81 - Fever presenting with conditions classified elsewhere Status: Resolved (6) Pancytopenia ICD Code: D61.818 - Other pancytopenia (7) Bacteremia, coagulase-negative staphylococcal ICD Code: R78.81 - Bacteremia Status: Resolved (8) Pancytopenia due to antineoplastic chemotherapy ICD Code: D61.810 - Antineoplastic chemotherapy induced pancytopenia; T45.1X5A - Adverse effect of antineoplastic and immunosuppressive drugs, initial encounter Status: Acute Assessment and Plan 27-year-old male admitted secondary to pancytopenia with sepsis including neutropenic fever related to bacteremia and left jaw cellulitis. Labs reviewed. Hemoglobin, platelets, neutrophils have an upper trend today. Continue to monitor labs. Labs ordered for further monitoring. Continue to follow CBC. Continue wound care. Patient's infection continues to show signs of improvement. Sepsis Neutropenic fever Resolved bacteremia with Enterobacter facial cellulitis ID following. continue with broad spectrum IV Antibiotics. continue with pain control. Continue to follow the cultures. Acute myeloid leukemia Neutropenia Pancytopenia Thrombocytopenia Hematology/Oncology following. Slight improvement seen daily Follow CBC Consider transfusions as needed Hypokalemia will replace and monitor. Gen. anxiety disorder Chronic depression Xanax as needed Clonazepam at night Fluoxetine daily DVT prophylaxis SCDs Avoid anticoagulation in the setting of pancytopenia Nilson Hernandez MD Jul 03, 2017 15:59
[2017-07-04] VITALS (8 sets, daily range): BP systolic 130–159; BP diastolic 66–88; PULSE 67–79; RESP 14–20; TEMP 96.4–98.6; O2SAT 96–100
[2017-07-04] MEDS: PROCHLORPERAZINE INJ 10 MG/2 ML VIAL IV PUSH PRN (04:26)
[2017-07-04] MEDS: HYDROmorphone HCL PF 2 MG/ML VIAL IV PUSH PRN (04:41)
[2017-07-04 05:22] LABS: AUTOMATED NEUTROPHIL # 1.2 TH/MM3 (1.8-7.7); BASOPHIL % 0.2 % (0.0-2.0); LYMPH % 26.6 % (9.0-44.0); LYMPHOCYTE # 0.7 TH/MM3 (1.0-4.8); MEAN CELL VOLUME 83.7 FL (80.0-100.0); MEAN CORPUSCULAR HEMOGLOBIN 29.6 PG (27.0-34.0); MEAN CORPUSCULAR HGB CONC 35.4 % (32.0-36.0); MEAN PLATELET VOLUME 7.7 FL (7.0-11.0); MONO % 26.2 % (0.0-8.0); MONOCYTE # 0.7 TH/MM3 (0-0.9); PLATELET COUNT 39 TH/MM3 (150-450); RED BLOOD COUNT 2.34 MIL/MM3 (4.50-5.90); RED CELL DISTRIBUTION WIDTH 14.1 % (11.6-17.2); WHITE BLOOD COUNT 2.6 TH/MM3 (4.0-11.0)
[2017-07-04 05:33] LABS: HEMATOCRIT 19.6 % (39.0-51.0); HEMOGLOBIN 6.9 GM/DL (13.0-17.0)
[2017-07-04] MEDS ORDERED: HYDROmorphone HCL PF 2 MG/ML VIAL IV PUSH PRN (08:00)
[2017-07-04] MEDS: FLUoxetine HCL 20 MG CAP PO SCH (09:00)
[2017-07-04 09:26] LABS: BANDS 15 % (0-6); LYMPHOCYTES 18 % (9-44); MONOCYTES 12 % (0-8); MYELOCYTES 1 % (0-0); NEUTROPHIL # MANUAL DIFF 1.8 TH/MM3 (1.8-7.7); POLYS (SEG NEUTROPHILS) 54 % (16-70)
[2017-07-04] MEDS: ACYCLOVIR 200 MG CAP PO SCH ×2 (09:27→19:51)
[2017-07-04] MEDS: ONDANSETRON HCL 4 MG/2 ML VIAL IVP PRN (09:27)
[2017-07-04] MEDS: diphenhydrAMINE HCL 25 MG CAP PO PRN (09:28)
[2017-07-04] MEDS: DOCUSATE SODIUM 100 MG CAP PO SCH ×2 (09:28→19:52)
[2017-07-04] MEDS: ACETAMINOPHEN 325 MG TAB PO PRN (09:28)
[2017-07-04] MEDS: SODIUM CHLORIDE 0.9% FLUSH 10 ML FLUSH IV FLUSH SCH ×2 (09:29→19:57)
--- NOTE | 2017-07-04 09:52 | PD.ONC.PN ---
Subjective Subjective Remarks Afebrile overnight. Patient resting in bed. He no longer feels nauseated. He is excited about going home tomorrow. Objective Data Date Time Temp Pulse Resp B/P (MAP) Pulse Ox O2 Delivery O2 Flow Rate FiO2 07/04/17 08:03 98.6 77 18 130/66 (87) 96 07/04/17 04:00 97.9 79 16 140/70 (93) 98 07/04/17 00:00 97.7 72 14 145/88 (107) 100 07/03/17 20:00 98.6 80 15 148/80 (102) 98 07/03/17 17:00 98.0 96 18 120/54 (76) 100 07/03/17 12:00 98.3 86 18 123/76 (92) 98 07/03/17 11:52 59 07/04/17 07/04/17 07/04/17 07:00 15:00 23:00 Intake Total 720 ml 1000 ml Output Total 2900 ml Balance -2180 ml 1000 ml Result Diagram: 07/04/17 0448 07/03/17 0535 Laboratory Results Laboratory Tests Test 07/04/17 04:48 White Blood Count 2.6 TH/MM3 Red Blood Count 2.34 MIL/MM3 Hemoglobin 6.9 GM/DL Hematocrit 19.6 % Mean Corpuscular Volume 83.7 FL Mean Corpuscular Hemoglobin 29.6 PG Mean Corpuscular Hemoglobin Concent 35.4 % Red Cell Distribution Width 14.1 % Platelet Count 39 TH/MM3 Mean Platelet Volume 7.7 FL Neutrophils (%) (Auto) 47.0 % Lymphocytes (%) (Auto) 26.6 % Monocytes (%) (Auto) 26.2 % Eosinophils (%) (Auto) 0.0 % Basophils (%) (Auto) 0.2 % Neutrophils # (Auto) 1.2 TH/MM3 Lymphocytes # (Auto) 0.7 TH/MM3 Monocytes # (Auto) 0.7 TH/MM3 Eosinophils # (Auto) 0.0 TH/MM3 Basophils # (Auto) 0.0 TH/MM3 CBC Comment AUTO DIFF Differential Total Cells Counted 100 Neutrophils % (Manual) 54 % Band Neutrophils % 15 % Lymphocytes % 18 % Monocytes % 12 % Neutrophils # (Manual) 1.8 TH/MM3 Myelocytes 1 % Differential Comment FINAL DIFF MANUAL Platelet Estimate LOW Platelet Morphology Comment NORMAL Administered Medications Medications (Trade) Dose Ordered Sig/Emma Route PRN Reason Start Time Stop Time Status Last Admin Dose Admin Sodium Chloride (NS Flush) 2 ml UNSCH PRN IV FLUSH FLUSH AFTER USING IV ACCESS 06/20/17 11:00 06/21/17 04:42 Sodium Chloride (NS Flush) 2 ml BID IV FLUSH 06/20/17 21:00 07/04/17 09:29 Ondansetron HCl (Zofran Inj) 4 mg Q6H PRN IVP NAUSEA OR VOMITING 06/20/17 11:00 07/04/17 09:27 Acyclovir (Zovirax) 400 mg Q12HR PO 06/20/17 21:00 07/04/17 09:27 Fluoxetine HCl (PROzac) 20 mg DAILY PO 06/21/17 09:00 07/04/17 09:00 Acetaminophen (Tylenol) 650 mg Q4H PRN PO FEVER>100.4 OR PREMEDICATION 06/21/17 08:45 07/04/17 09:28 Diphenhydramine HCl (Benadryl) 25 mg Q4H PRN PO premedication 06/24/17 12:45 07/04/17 09:28 Prochlorperazine Edisylate (Compazine Inj) 10 mg Q8H PRN IV PUSH severe nausea 06/24/17 23:30 07/04/17 04:26 Daptomycin 900 mg/ Sodium Chloride 100 ml @ 200 mls/hr Q24H IV 06/25/17 13:00 07/03/17 13:00 Levofloxacin/ Dextrose 150 ml @ 100 mls/hr Q24H IV 06/30/17 12:00 07/03/17 12:57 Docusate Sodium (Colace) 100 mg BID PO 06/30/17 21:00 07/04/17 09:28 Heparin Sodium (Porcine) (Heparin Central Flush) 500 units UNSCH IV FLUSH 07/01/17 06:45 07/01/17 07:47 Hydromorphone HCl (Dilaudid Pf Inj) 0.5 mg Q8HR PRN IV PUSH pain6-10 07/04/17 08:00 07/04/17 09:27 Objective Remarks GENERAL: Young man, sitting up in bed in [facility]. SKIN: Warm and dry. 3mm wound in left cheek, seeping a small amount of blood, minimal surrounding inflammation, no streaking erythema. HEAD: Normocephalic. EYES: No injection or drainage. NECK: Supple, trachea midline. CARDIOVASCULAR: Regular rate and rhythm RESPIRATORY: Breath sounds equal bilaterally. No accessory muscle use. GASTROINTESTINAL: Abdomen soft, non-tender, nondistended. EXTREMITIES: No cyanosis. NEUROLOGICAL: no obvious focal deficit. Assessment/Plan Problem List: (1) Neutropenic sepsis ICD Codes: A41.9 - Sepsis, unspecified organism; D70.9 - Neutropenia, unspecified Status: Resolved Plan: -- On Levaquin + Daptomycin --wound culture growing enterobacter --Most recent blood cultures negative --ID following. --facial cellulitis without fluid collection (2) Facial cellulitis ICD Codes: L03.211 - Cellulitis of face Plan: --continue antibiotics. (3) Thrombocytopenia ICD Codes: D69.6 - Thrombocytopenia, unspecified Status: Acute (4) AML (acute myelogenous leukemia) ICD Codes: C92.00 - Acute myeloblastic leukemia, not having achieved remission Status: Chronic (5) Anemia ICD Codes: D64.9 - Anemia, unspecified Status: Acute Assessment 27y/o male with AML admitted for neutropenic fever. h/o Obesity. Anxiety. Erosive esophagitis. Plan 1. decrease dilaudid to 0.5mg IV q 8 hours 2. give 1 unit pRBC 3. plan for discharge tomorrow Attending Statement The exam, history, and the medical decision-making described in the above note were completed with the assistance of the mid-level provider. I reviewed and agree with the findings presented. I attest that I had a [id number] encounter with the patient on the same day, and personally performed and documented my assessment and findings in the medical record. Hb lower today RBC transfusion today stop IVF /dc in am if remains stable d/c with levaquin restart Bactrim DS -W- daily acyclovir d/w rmn o/n events reviewed Problem Qualifiers (1) AML (acute myelogenous leukemia): Qualified Codes: C92.01 - Acute myeloblastic leukemia, in remission Fartun Pagan Jul 04, 2017 09:52 Joey Santoyo MD Jul 04, 2017 11:45
[2017-07-04] MEDS ORDERED: HYDROmorphone HCL 2 MG TAB PO PRN (13:15)
[2017-07-04] MEDS ORDERED: PILL SPLITTER OTHER PRN (13:30)
[2017-07-04] MEDS: LEVOFLOXACIN 750 MG PREMIX INJ 150 ML IV SCH (14:18)
[2017-07-04] MEDS: HYDROmorphone HCL 2 MG TAB PO PRN ×2 (14:18→19:53)
--- NOTE | 2017-07-04 14:35 | HHI.PR ---
Subjective Remarks Neutrophil counts continued to trend upward. Hemoglobin does have a downward trend. Decreased drainage at left jaw wound. Objective Vital Signs Date Time Temp Pulse Resp B/P (MAP) Pulse Ox O2 Delivery O2 Flow Rate FiO2 07/04/17 13:12 97.6 78 20 159/76 (103) 97 07/04/17 11:30 97.6 78 20 159/76 97 07/04/17 11:08 97.3 78 20 145/71 97 07/04/17 08:03 98.6 77 18 130/66 (87) 96 07/04/17 04:00 97.9 79 16 140/70 (93) 98 07/04/17 00:00 97.7 72 14 145/88 (107) 100 07/03/17 20:00 98.6 80 15 148/80 (102) 98 07/03/17 17:00 98.0 96 18 120/54 (76) 100 I/O 07/03/17 07/03/17 07/03/17 07/04/17 07/04/17 07/04/17 07:00 15:00 23:00 07:00 15:00 23:00 Intake Total 480 ml 2600 ml 960 ml 720 ml 1400 ml Output Total 2100 ml 1250 ml 1400 ml 2900 ml 650 ml Balance -1620 ml 1350 ml -440 ml -2180 ml 750 ml Intake Oral 480 ml 960 ml 720 ml IV Total 2600 ml 1000 ml Packed Cells 400 ml Output Urine Total 2100 ml 1250 ml 1400 ml 2900 ml 650 ml # Bowel Movements 0 1 Result Diagram: 07/04/17 0448 07/03/17 0535 Objective Remarks GENERAL: NAD, A&Ox3 HEAD: Normocephalic. NECK: Supple, trachea midline. No lymphadenopathy. EYES: No scleral icterus. No injection or drainage. CARDIOVASCULAR: Regular rate and rhythm without murmurs, gallops, or rubs. RESPIRATORY: Breath sounds equal bilaterally. No accessory muscle use. GASTROINTESTINAL: Abdomen soft, non-tender, nondistended. MUSCULOSKELETAL: No cyanosis, or edema. SKIN: Warm and dry. Erythema and slight drainage at left lower jaw. 6 x 4 cm palpable area of induration. NEURO: No focal neurological deficitis. A/P Problem List: (1) Facial cellulitis ICD Code: L03.211 - Cellulitis of face (2) Neutropenic sepsis ICD Code: A41.9 - Sepsis, unspecified organism; D70.9 - Neutropenia, unspecified Status: Resolved (3) Sepsis ICD Code: A41.9 - Sepsis, unspecified organism Status: Resolved (4) AML (acute myelogenous leukemia) ICD Code: C92.00 - Acute myeloblastic leukemia, not having achieved remission Status: Chronic (5) Neutropenic fever ICD Code: D70.9 - Neutropenia, unspecified; R50.81 - Fever presenting with conditions classified elsewhere Status: Resolved (6) Pancytopenia ICD Code: D61.818 - Other pancytopenia (7) Bacteremia, coagulase-negative staphylococcal ICD Code: R78.81 - Bacteremia Status: Resolved (8) Pancytopenia due to antineoplastic chemotherapy ICD Code: D61.810 - Antineoplastic chemotherapy induced pancytopenia; T45.1X5A - Adverse effect of antineoplastic and immunosuppressive drugs, initial encounter Status: Acute Assessment and Plan 27-year-old male admitted secondary to pancytopenia with sepsis including neutropenic fever related to bacteremia and left jaw cellulitis. Labs reviewed. Platelets, neutrophils have an upper trend today. Downward trend in hemoglobin. Continue to monitor labs. Labs ordered for further monitoring. Continue to follow CBC. Continue wound care. Patient transitioned to oral pain treatments. Potential for discharge home tomorrow. Sepsis Neutropenic fever Resolved bacteremia with Enterobacter facial cellulitis ID following. continue with broad spectrum IV Antibiotics. continue with pain control. Continue to follow the cultures. Acute myeloid leukemia Neutropenia Pancytopenia Thrombocytopenia Hematology/Oncology following. Slight improvement seen daily Follow CBC Consider transfusions as needed Hypokalemia will replace and monitor. Gen. anxiety disorder Chronic depression Xanax as needed Clonazepam at night Fluoxetine daily DVT prophylaxis SCDs Avoid anticoagulation in the setting of pancytopenia Problem Qualifiers (1) AML (acute myelogenous leukemia): Qualified Codes: C92.01 - Acute myeloblastic leukemia, in remission Nilson Hernandez MD Jul 04, 2017 14:35
--- NOTE | 2017-07-04 15:47 | HHI.IDPN ---
Note Infectious Disease Note Patient notes less pain in the face. Feels okay. No other complaints. No SANTIAGO. Left submandibular erythema - improved. Wound dressing in place. Saturated with purulent drainage. Afebrile. 27-year-old white male who has AML. The patient has been undergoing consolidation chemotherapy and he received the third cycle of chemotherapy last week. The patient developed fever and noted a tiny lump at the left sub mandible area of the chin. He states that he squeezed it but did not get any fluid and it became slightly enlarged and erythematous. That was 4 days ago. He subsequently started getting fever and chills also had nausea and vomiting and diarrhea. PAST MEDICAL HISTORY 1. AML. The patient is noted to be in remission and has been undergoing consolidative chemotherapy. 2. History of erosive esophagitis. 3. Anxiety. 4. Obesity. ALLERGIES NO KNOWN DRUG ALLERGIES. MEDICATIONS 1. Daptomycin. 2. Levaquin 3. Acyclovir. OBJECTIVE: Vital Signs Date Time Temp Pulse Resp B/P (MAP) Pulse Ox O2 Delivery O2 Flow Rate FiO2 07/04/17 13:12 97.6 78 20 159/76 (103) 97 07/04/17 11:30 97.6 78 20 159/76 97 07/04/17 11:08 97.3 78 20 145/71 97 07/04/17 08:03 98.6 77 18 130/66 (87) 96 07/04/17 04:00 97.9 79 16 140/70 (93) 98 07/04/17 00:00 97.7 72 14 145/88 (107) 100 07/03/17 20:00 98.6 80 15 148/80 (102) 98 07/03/17 17:00 98.0 96 18 120/54 (76) 100 Laboratory Tests Test 07/03/17 05:35 07/04/17 04:48 White Blood Count 2.3 TH/MM3 2.6 TH/MM3 Red Blood Count 2.60 MIL/MM3 2.34 MIL/MM3 Hemoglobin 7.5 GM/DL 6.9 GM/DL Hematocrit 21.5 % 19.6 % Mean Corpuscular Volume 82.9 FL 83.7 FL Mean Corpuscular Hemoglobin 28.9 PG 29.6 PG Mean Corpuscular Hemoglobin Concent 34.9 % 35.4 % Red Cell Distribution Width 14.0 % 14.1 % Platelet Count 32 TH/MM3 39 TH/MM3 Mean Platelet Volume 7.8 FL 7.7 FL Neutrophils (%) (Auto) 48.7 % 47.0 % Lymphocytes (%) (Auto) 26.2 % 26.6 % Monocytes (%) (Auto) 24.7 % 26.2 % Eosinophils (%) (Auto) 0.0 % 0.0 % Basophils (%) (Auto) 0.4 % 0.2 % Neutrophils # (Auto) 1.1 TH/MM3 1.2 TH/MM3 Lymphocytes # (Auto) 0.6 TH/MM3 0.7 TH/MM3 Monocytes # (Auto) 0.6 TH/MM3 0.7 TH/MM3 Eosinophils # (Auto) 0.0 TH/MM3 0.0 TH/MM3 Basophils # (Auto) 0.0 TH/MM3 0.0 TH/MM3 CBC Comment AUTO DIFF AUTO DIFF Differential Total Cells Counted 100 100 Neutrophils % (Manual) 55 % 54 % Band Neutrophils % 5 % 15 % Lymphocytes % 23 % 18 % Monocytes % 14 % 12 % Basophils % 1 % Neutrophils # (Manual) 1.4 TH/MM3 1.8 TH/MM3 Metamyelocytes 2 % Differential Comment FINAL DIFF MANUAL FINAL DIFF MANUAL Platelet Estimate LOW LOW Platelet Morphology Comment NORMAL NORMAL Myelocytes 1 % Laboratory Tests Test 07/03/17 05:35 Blood Urea Nitrogen 7 MG/DL Creatinine 0.53 MG/DL Random Glucose 100 MG/DL Total Protein 6.4 GM/DL Albumin 2.6 GM/DL Calcium Level 8.3 MG/DL Alkaline Phosphatase 74 U/L Aspartate Amino Transf (AST/SGOT) 33 U/L Alanine Aminotransferase (ALT/SGPT) 42 U/L Total Bilirubin 0.8 MG/DL Sodium Level 141 MEQ/L Potassium Level 3.5 MEQ/L Chloride Level 101 MEQ/L Carbon Dioxide Level 32.5 MEQ/L Anion Gap 8 MEQ/L Estimat Glomerular Filtration Rate 189 ML/MIN Date/Time Source Procedure Growth Status 06/28/17 14:00 Abscess Face Gram Stain - Final Complete 06/28/17 14:00 Wound Culture - Final Enterobacter Cloacae Complete IMAGING: Maxillofacial CT 06/25/17 2821 Signed Impressions: Service Date/Time: Sunday, June 25, 2017 15:55 - CONCLUSION: 1. Left- sided cellulitis as above without discrete or drainable fluid collections to suggest focal abscess. Mildly enlarged reactive lymph nodes in the left submental region and left cervical region. Leander Fiore MD Face MRI 06/23/17 0000 Signed Impressions: Service Date/Time: Friday, June 23, 2017 11:57 - CONCLUSION: Superficial inflammatory changes. Given the very low white count developing abscess probably not possible. Correlation suggested. Richy Bonner MD FACR Chest X-Ray 06/20/17 0939 Signed Impressions: Service Date/Time: Tuesday, June 20, 2017 09:49 - CONCLUSION: No acute disease. Katie Hollins MD PHYSICAL EXAM: GENERAL: No acute distress. Awake, alert. HEENT: Area of swelling at the left submandibular is decreased and less tender. (+) Purulent drainage. The extraocular movements grossly intact, pupils reactive to light. No icterus. Oropharynx moist mucosa without lesions. NECK: Supple. No adenopathy. The neck is obese. LUNGS: Clear breath sounds. HEART: Distant S1-S2 without murmurs, rubs or gallops. ABDOMEN: Obese, soft, no tenderness. EXTREMITIES: No clubbing or cyanosis or edema. SKIN: No diffuse rash. NEUROLOGIC: No gross focal findings. PSYCHE: Pleasant, calm and cooperative. IMPRESSION 1. Enterobacter sepsis in patient with persistent fever, chills and neutropenia and also tachycardia, and hypotension. 2. Cellulitis of the left face. WBC improving and now probably forming abscess but it is draining. Culture has Enterobacter cloacae. Now has bloody drainage. 3. Neutropenia no admission. 4. AML in a patient who is post consolidation chemotherapy after going into remission. 5. Thrombocytopenia and anemia. RECOMMENDATIONS 1. Change Levaquin to PO 750mg daily x 7 days more. 2. Stop Daptomycin. 3. Continue Acyclovir. Okay to discharge tomorrow from my standpoint. Tre Villegas MD Jul 04, 2017 15:47
[2017-07-04] MEDS ORDERED: HYDROmorphone HCL PF 2 MG/ML VIAL IV ONE (22:30)
[2017-07-05] VITALS: BP 148/75; PULSE 78; RESP 17; TEMP 96.7; O2SAT 100
[2017-07-05] MEDS: HYDROmorphone HCL 2 MG TAB PO PRN ×2 (01:45→10:12)
[2017-07-05] MEDS: ONDANSETRON HCL 4 MG/2 ML VIAL IVP PRN (02:12)
[2017-07-05 04:00] VITALS: BP 162/68; PULSE 80; RESP 16; TEMP 97; O2SAT 99
[2017-07-05 05:25] LABS: AUTOMATED NEUTROPHIL # 1.7 TH/MM3 (1.8-7.7); BASOPHIL % 0.4 % (0.0-2.0); HEMATOCRIT 24.2 % (39.0-51.0); HEMOGLOBIN 8.5 GM/DL (13.0-17.0); LYMPH % 22.9 % (9.0-44.0); LYMPHOCYTE # 0.8 TH/MM3 (1.0-4.8); MEAN CELL VOLUME 83.6 FL (80.0-100.0); MEAN CORPUSCULAR HEMOGLOBIN 29.4 PG (27.0-34.0); MEAN CORPUSCULAR HGB CONC 35.2 % (32.0-36.0); MEAN PLATELET VOLUME 7.9 FL (7.0-11.0); MONO % 26.7 % (0.0-8.0); MONOCYTE # 0.9 TH/MM3 (0-0.9); PLATELET COUNT 52 TH/MM3 (150-450); WHITE BLOOD COUNT 3.3 TH/MM3 (4.0-11.0)
[2017-07-05 05:45] LABS: ALBUMIN 3.1 GM/DL (3.4-5.0); AST (GOT) 33 U/L (15-37); BICARBONATE 29.9 MEQ/L (21.0-32.0); BLOOD UREA NITROGEN 5 MG/DL (7-18); CALCIUM 8.9 MG/DL (8.5-10.1); CHLORIDE 103 MEQ/L (98-107); CREATININE 0.62 MG/DL (0.60-1.30); GLOMERULAR FILTRATION RATE 158 ML/MIN (>89); GLUCOSE,RANDOM 99 MG/DL (74-106); SODIUM (NA) 139 MEQ/L (136-145)
[2017-07-05 05:58] LABS: ALKALINE PHOSPHATASE 79 U/L (45-117); ALT (GPT) 47 U/L (12-78); TOTAL BILIRUBIN ADULT 0.8 MG/DL (0.2-1.0)
[2017-07-05] MEDS ORDERED: LEVOFLOXACIN 750 MG TAB PO SCH (09:00)
[2017-07-05] MEDS ORDERED: DILA2TAB4 PO (09:13)
[2017-07-05] MEDS ORDERED: LEVA750T9 PO (09:13)
[2017-07-05] MEDS: ACYCLOVIR 200 MG CAP PO SCH (10:11)
[2017-07-05] MEDS: FLUoxetine HCL 20 MG CAP PO SCH (10:12)
[2017-07-05] MEDS: SODIUM CHLORIDE 0.9% FLUSH 10 ML FLUSH IV FLUSH SCH (10:13)
[2017-07-05 10:22] VITALS: BP 128/82; PULSE 85; RESP 20; TEMP 98.5; O2SAT 98
--- NOTE | 2017-07-05 10:37 | PD.ONC.PN ---
Subjective Subjective Remarks Afebrile overnight Patient reports he is anxious to go home today Still with a moderate amount of drainage from facial wound Pain is much improved No other acute complaints Objective Data Date Time Temp Pulse Resp B/P (MAP) Pulse Ox O2 Delivery O2 Flow Rate FiO2 07/05/17 10:22 98.5 85 20 128/82 (97) 98 07/05/17 04:00 97.0 80 16 162/68 (99) 99 07/05/17 00:00 96.7 78 17 148/75 (99) 100 07/04/17 20:00 96.4 79 16 143/70 (94) 100 07/04/17 18:14 97.8 67 18 149/71 (97) 100 07/04/17 13:12 97.6 78 20 159/76 (103) 97 07/04/17 11:30 97.6 78 20 159/76 97 07/04/17 11:08 97.3 78 20 145/71 97 07/05/17 07/05/17 07/05/17 07:00 15:00 23:00 Intake Total 720 ml Output Total 2175 ml 500 ml Balance -1455 ml -500 ml Result Diagram: 07/05/17 0500 07/05/17 0500 Laboratory Results Laboratory Tests Test 07/05/17 05:00 White Blood Count 3.3 TH/MM3 Red Blood Count 2.90 MIL/MM3 Hemoglobin 8.5 GM/DL Hematocrit 24.2 % Mean Corpuscular Volume 83.6 FL Mean Corpuscular Hemoglobin 29.4 PG Mean Corpuscular Hemoglobin Concent 35.2 % Red Cell Distribution Width 14.0 % Platelet Count 52 TH/MM3 Mean Platelet Volume 7.9 FL Neutrophils (%) (Auto) 50.0 % Lymphocytes (%) (Auto) 22.9 % Monocytes (%) (Auto) 26.7 % Eosinophils (%) (Auto) 0.0 % Basophils (%) (Auto) 0.4 % Neutrophils # (Auto) 1.7 TH/MM3 Lymphocytes # (Auto) 0.8 TH/MM3 Monocytes # (Auto) 0.9 TH/MM3 Eosinophils # (Auto) 0.0 TH/MM3 Basophils # (Auto) 0.0 TH/MM3 CBC Comment AUTO DIFF Differential Comment AUTO DIFF CONFIRMED Platelet Estimate LOW Platelet Morphology Comment NORMAL Blood Urea Nitrogen 5 MG/DL Creatinine 0.62 MG/DL Random Glucose 99 MG/DL Total Protein 7.0 GM/DL Albumin 3.1 GM/DL Calcium Level 8.9 MG/DL Alkaline Phosphatase 79 U/L Aspartate Amino Transf (AST/SGOT) 33 U/L Alanine Aminotransferase (ALT/SGPT) 47 U/L Total Bilirubin 0.8 MG/DL Sodium Level 139 MEQ/L Potassium Level 3.6 MEQ/L Chloride Level 103 MEQ/L Carbon Dioxide Level 29.9 MEQ/L Anion Gap 6 MEQ/L Estimat Glomerular Filtration Rate 158 ML/MIN Administered Medications Medications (Trade) Dose Ordered Sig/Emma Route PRN Reason Start Time Stop Time Status Last Admin Dose Admin Sodium Chloride (NS Flush) 2 ml UNSCH PRN IV FLUSH FLUSH AFTER USING IV ACCESS 06/20/17 11:00 06/21/17 04:42 Sodium Chloride (NS Flush) 2 ml BID IV FLUSH 06/20/17 21:00 07/05/17 10:13 Ondansetron HCl (Zofran Inj) 4 mg Q6H PRN IVP NAUSEA OR VOMITING 06/20/17 11:00 07/05/17 02:12 Acyclovir (Zovirax) 400 mg Q12HR PO 06/20/17 21:00 07/05/17 10:11 Fluoxetine HCl (PROzac) 20 mg DAILY PO 06/21/17 09:00 07/05/17 10:12 Acetaminophen (Tylenol) 650 mg Q4H PRN PO FEVER>100.4 OR PREMEDICATION 06/21/17 08:45 07/04/17 09:28 Diphenhydramine HCl (Benadryl) 25 mg Q4H PRN PO premedication 06/24/17 12:45 07/04/17 09:28 Prochlorperazine Edisylate (Compazine Inj) 10 mg Q8H PRN IV PUSH severe nausea 06/24/17 23:30 07/04/17 04:26 Docusate Sodium (Colace) 100 mg BID PO 06/30/17 21:00 07/04/17 19:52 Heparin Sodium (Porcine) (Heparin Central Flush) 500 units UNSCH IV FLUSH 07/01/17 06:45 07/05/17 10:13 Hydromorphone HCl (Dilaudid) 2 mg Q6H PRN PO Pain 7 to 10 07/04/17 13:15 07/05/17 10:12 Levofloxacin (Levaquin) 750 mg DAILY PO 07/05/17 09:00 07/05/17 10:11 Objective Remarks GENERAL: Obese younger male sitting up in chair at bedside watching TV in no obvious distress SKIN: Warm and dry. Dressing covering left cheek. Dry and intact at this time. HEAD: Normocephalic. EYES: No injection or drainage. NECK: Supple, trachea midline. CARDIOVASCULAR: Regular rate and rhythm RESPIRATORY: Breath sounds equal bilaterally. No accessory muscle use. GASTROINTESTINAL: Abdomen soft, non-tender, nondistended. EXTREMITIES: No cyanosis. NEUROLOGICAL: Normal speech. Moving all extremities. No obvious focal deficit. Assessment/Plan Problem List: (1) Neutropenic sepsis ICD Codes: A41.9 - Sepsis, unspecified organism; D70.9 - Neutropenia, unspecified Status: Resolved Plan: --Patient to go home on p.o. Levaquin --wound culture growing enterobacter --Most recent blood cultures negative --ID following. --facial cellulitis without fluid collection (2) Facial cellulitis ICD Codes: L03.211 - Cellulitis of face Plan: --continue antibiotics. (3) Thrombocytopenia ICD Codes: D69.6 - Thrombocytopenia, unspecified Status: Acute (4) AML (acute myelogenous leukemia) ICD Codes: C92.00 - Acute myeloblastic leukemia, not having achieved remission Status: Chronic (5) Anemia ICD Codes: D64.9 - Anemia, unspecified Status: Acute Assessment 27y/o male with AML admitted for neutropenic fever. h/o Obesity. Anxiety. Erosive esophagitis. Plan 1. Clear for discharge from oncology standpoint 2. Discussed with patient to resume Bactrim prophylaxis Wednesday as well as azithromycin (patient has this prescription at home) 3. Follow-up in clinic to discuss fourth and last consolidation chemotherapy Problem Qualifiers (1) AML (acute myelogenous leukemia): Qualified Codes: C92.01 - Acute myeloblastic leukemia, in remission Robina Cui Jul 05, 2017 10:37
--- NOTE | 2017-07-05 13:12 | HHI.DS ---
Discharge Summary Admission Date Jun 20, 2017 at 10:57 Discharge Date: Jul 05, 2017 Admitting Diagnosis neutropenic fever, pancytopenia, thrombocytopenia (1) Neutropenic fever ICD Code: D70.9 - Neutropenia, unspecified; R50.81 - Fever presenting with conditions classified elsewhere Diagnosis: Principal Status: Resolved (2) Pancytopenia ICD Code: D61.818 - Other pancytopenia Diagnosis: Principal (3) AML (acute myelogenous leukemia) ICD Code: C92.00 - Acute myeloblastic leukemia, not having achieved remission Diagnosis: Principal Status: Chronic (4) Generalized pain ICD Code: R52 - Pain, unspecified Diagnosis: Principal Status: Resolved (5) Sepsis ICD Code: A41.9 - Sepsis, unspecified organism Diagnosis: Principal Status: Resolved Procedures I&D of left jaw cellulitis/abscess. Brief History - From Admission Mr. Duarte is a 27-year-old male. He came in today secondary to diffuse pain is and is found to have pancytopenia and neutropenic fever. He has AML at baseline. His last chemotherapy was approximately one week ago. He says he's felt fine most of the week but starting yesterday she was feeling bad with increasing pain and malaise. She did not notice the fevers until he got to our hospital. Other abnormalities today or hypokalemia, thrombocytopenia, and anemia. He is fluent negative. Cefepime has been started as a treatment and he has a platelet transfusion pending. The patient knows of no active areas of infection. He has not had painful urinations or cough and cannot recall any skin injuries. CBC/BMP: 07/05/17 0500 07/05/17 0500 Significant Findings Laboratory Tests Test 07/03/17 05:35 07/04/17 04:48 07/05/17 05:00 White Blood Count 2.3 TH/MM3 (4.0-11.0) 2.6 TH/MM3 (4.0-11.0) 3.3 TH/MM3 (4.0-11.0) Red Blood Count 2.60 MIL/MM3 (4.50-5.90) 2.34 MIL/MM3 (4.50-5.90) 2.90 MIL/MM3 (4.50-5.90) Hemoglobin 7.5 GM/DL (13.0-17.0) 6.9 GM/DL (13.0-17.0) 8.5 GM/DL (13.0-17.0) Hematocrit 21.5 % (39.0-51.0) 19.6 % (39.0-51.0) 24.2 % (39.0-51.0) Platelet Count 32 TH/MM3 (150-450) 39 TH/MM3 (150-450) 52 TH/MM3 (150-450) Monocytes (%) (Auto) 24.7 % (0.0-8.0) 26.2 % (0.0-8.0) 26.7 % (0.0-8.0) Neutrophils # (Auto) 1.1 TH/MM3 (1.8-7.7) 1.2 TH/MM3 (1.8-7.7) 1.7 TH/MM3 (1.8-7.7) Lymphocytes # (Auto) 0.6 TH/MM3 (1.0-4.8) 0.7 TH/MM3 (1.0-4.8) 0.8 TH/MM3 (1.0-4.8) Monocytes % 14 % (0-8) 12 % (0-8) Neutrophils # (Manual) 1.4 TH/MM3 (1.8-7.7) Metamyelocytes 2 % (0-1) Platelet Estimate LOW (NORMAL) LOW (NORMAL) LOW (NORMAL) Creatinine 0.53 MG/DL (0.60-1.30) Albumin 2.6 GM/DL (3.4-5.0) 3.1 GM/DL (3.4-5.0) Calcium Level 8.3 MG/DL (8.5-10.1) Carbon Dioxide Level 32.5 MEQ/L (21.0-32.0) Band Neutrophils % 15 % (0-6) Myelocytes 1 % (0-0) Blood Urea Nitrogen 5 MG/DL (7-18) PE at Discharge GENERAL: This morbidly obese 27 years old patient in mild distress due to pain in his face CARDIOVASCULAR: Regular rate and rhythm without murmurs, gallops, or rubs. RESPIRATORY: Fair air entry bilaterally. No wheezes, rales, or rhonchi. GASTROINTESTINAL: Abdomen soft, non-tender, nondistended. Normal active bowel sounds MUSCULOSKELETAL: Extremities without clubbing, cyanosis, or edema. NEURO: Alert & Oriented x4 to person, place, time, situation. Moves all ext x4 Hospital Course Mr. Daurte is a 27 -year-old male. He has AML at baseline and immunocompromise related to treatments for this. He was admitted secondary fever of unknown origin and sepsis. Etiology for his infection did not manifest initially but subsequently developed cellulitis of his left lower jaw. Through time this coalescent a small abscess which was drained by plastic surgery. Neutropenia was present at time of admit but has gradually improved through time. Patient is stable and cleared for discharge home today. She's been approved for discharge by oncology team and infectious disease physician is provided recommended treatment of Levaquin for 7 more days. Medically patient is cleared for discharge today. Pt Condition on Discharge: Stable Discharge Disposition: Discharge Home Discharge Time: <= 30 minutes Discharge Instructions DIET: Follow Instructions for: As Tolerated, No Restrictions Activities you can perform: Regular-No Restrictions Follow up Referrals: Oncology/Hematology - 2 Weeks PCP Follow-up - 2 Weeks New Medications: Hydromorphone (Dilaudid) 2 Mg Tab 2 MG PO Q6H PRN for Pain, #20 TAB Levofloxacin (Levaquin) 750 Mg Tablet 750 MG PO DAILY for Infection, #7 TAB Continued Medications: Acyclovir (Acyclovir) 200 Mg Cap 400 MG PO Q12HR for PROPHYLAXIS for 10 Days, #20 CAP Clonazepam (Klonopin) 1 Mg Tab 1 MG PO HS, #30 TAB 0 Refills Fluoxetine (Prozac) 20 Mg Cap 20 MG PO DAILY, #30 CAP 0 Refills Sucralfate Liq (Sucralfate Liq) 1 Gram/10 Ml Erin 1 GM PO ACHS for gastritis for 30 Days, TAB 0 Refills Discontinued Medications: Sulfamethoxazole-Trimethoprim (Sulfamethoxazole-Trimethoprim) 800-160 Mg Tab 1 TAB PO MoWeFr@09 for PROPHYLAXIS for 10 Days, #20 TAB Nilson Hernandez MD Jul 05, 2017 13:12
== END 2017-07-05 11:00 | disposition home or self-care (01) | DRG 871 ==
LOC: NEPC 08:57 → NEDA 10:57 → HCIN 11:50 → HIME 06-26 15:45 → HCIN 06-30 14:28
PROVIDERS: ADMIT Hospitalist; ATTEND Hospitalist
PROC: 30233R1 Transfusion of Nonautologous Platelets into Peripheral Vein, Percutaneous Approach (ICD-10-PCS; principal; 2017-06-20)
PROC: 30233N1 Transfusion of Nonautologous Red Blood Cells into Peripheral Vein, Percutaneous Approach (ICD-10-PCS; 2017-06-21)
PROC: 0CJS8ZZ Inspection of Larynx, Via Natural or Artificial Opening Endoscopic (ICD-10-PCS; 2017-06-26)
PROC: 0H91XZZ Drainage of Face Skin, External Approach (ICD-10-PCS; 2017-07-02)
DX: A41.59 Other Gram-negative sepsis (principal); D61.810 Antineoplastic chemotherapy induced pancytopenia; Z68.41 Body mass index [BMI] 40.0-44.9, adult; C92.01 Acute myeloblastic leukemia, in remission; L02.01 Cutaneous abscess of face; L03.211 Cellulitis of face; E66.01 Morbid (severe) obesity due to excess calories; R50.81 Fever presenting with conditions classified elsewhere; T45.1X5A Adverse effect of antineoplastic and immunosuppressive drugs, initial encounter; E87.6 Hypokalemia; F32.9 Major depressive disorder, single episode, unspecified; F41.1 Generalized anxiety disorder; R00.0 Tachycardia, unspecified; B96.89 Other specified bacterial agents as the cause of diseases classified elsewhere; R59.0 Localized enlarged lymph nodes; Z87.19 Personal history of other diseases of the digestive system
CPT/HCPCS: 36430; 70487; 70540; 71045; 76937; 80048; 80053; 80076; 80202; 81001; 82784; 83010; 83605; 83615; 83735; 84100; 85007; 85025; 85027; 86644; 86850; 86900; 86901; 86920; 87040; 87070; 87077; 87186; 87205; 87641; 87804; 96365; 96375; J0131; J0692; J0780; J0878; J1170; J1442; J1642; J1885; J1956; J2185; J2248; J2270; J2405; J2765; J2997; J3370; J3465; J3480; J7030; J7040; J7050; P9037; P9040; Q9967

== ENCOUNTER 2017-08-19 21:31 | Emergency (ER) | payer OTHER ==
[~2017-08-19 21:31] MED LIST changes: -ACYC200C66 PO; -CLON1 PO; -SUCR1S PO; -SULF1TAB23 PO
[2017-08-19 22:31] VITALS: BP 158/73; PULSE 88; RESP 20; TEMP 99.2; O2SAT 98
--- NOTE | 2017-08-19 22:39 | PD ---
HPI Chief Complaint: Pain: Acute or Chronic Time Seen by Provider: 22:39 Travel History International Travel<30 days: No Contact w/Intl Traveler<30days: No Traveled to known affect area: No History of Present Illness HPI 27-year-old male with a history of acute myelogenous leukemia arrives describing total body pain. He reports his last chemotherapy was about 2 months ago. For the past few days he has had generalized body aches and pains. He reports a fever of 100.1 today. He has had no cough. No vomiting. No abdominal pain or urinary complaint is offered. He reports typically these symptoms, after a dose of chemotherapy however he has not had any lately. PFSH Past Medical History Arthritis: No Asthma: No Autoimmune Disease: No Anxiety: Yes Depression: Yes Heart Rhythm Problems: No Cancer: Yes (AML (Acute Myelogenous Leukemia), Thrombocytopenia, Lymphocytosis) Cardiovascular Problems: No High Cholesterol: No Chemotherapy: Yes Chest Pain: No Congestive Heart Failure: No COPD: No Cerebrovascular Accident: No Diabetes: No Diminished Hearing: No Endocrine: No Gastrointestinal Disorders: Yes GERD: Yes Genitourinary: No Headaches: No Hiatal Hernia: No Immune Disorder: Yes (AML (Acute Myelogenous Leukemia), Thrombocytopenia, Lymphocytosis) Implanted Vascular Access Dvce: Yes Kidney Stones: No Musculoskeletal: No Neurologic: No Psychiatric: Yes Reproductive: No Respiratory: No Immunizations Current: Yes Migraines: Yes Radiation Therapy: No Renal Failure: No Seizures: No Sleep Apnea: No Thyroid Disease: No Ulcer: Yes Past Surgical History Abdominal Surgery: No AICD: No Arteriovenous Shunt: No Cardiac Surgery: No Ear Surgery: No Endocrine Surgery: No Eye Surgery: No Genitourinary Surgery: No Gynecologic Surgery: No Insulin Pump: No Joint Replacement: No Oral Surgery: Yes (WISDOM TEETH REMOVAL) Pacemaker: No Thoracic Surgery: No Other Surgery: Yes ([id number] placement) Social History Alcohol Use: Yes (SOCIAL) Tobacco Use: No Substance Use: Yes (marijuana) Allergies-Medications (Allergen,Severity, Reaction): Coded Allergies: No Known Allergies (Verified Allergy, Unknown, 08/19/17) Reported Meds & Prescriptions Reported Meds & Active Scripts Active Prozac (Fluoxetine HCl) 20 Mg Cap 20 Mg PO DAILY Review of Systems Except as stated in HPI: all other systems reviewed are Neg General / Constitutional: Positive: Fever Physical Exam Narrative GENERAL: 27-year-old male well-nourished well-developed no acute distress Vital Signs Date Time Temp Pulse Resp B/P (MAP) Pulse Ox O2 Delivery O2 Flow Rate FiO2 08/19/17 23:49 95 Room Air 08/19/17 22:31 99.2 88 20 158/73 (101) 98 SKIN: Warm and dry. HEAD: Atraumatic. Normocephalic. EYES: Pupils equal and round. No scleral icterus. No injection or drainage. ENT: No nasal bleeding or discharge. Mucous membranes pink and moist. NECK: Trachea midline. No JVD. CARDIOVASCULAR: Regular rate and rhythm. RESPIRATORY: No accessory muscle use. Clear to auscultation. Breath sounds equal bilaterally. GASTROINTESTINAL: Abdomen soft, non-tender, nondistended. Hepatic and splenic margins not palpable. MUSCULOSKELETAL: Extremities without clubbing, cyanosis, or edema. No obvious deformities. NEUROLOGICAL: Awake and alert. No obvious cranial nerve deficits. Motor grossly within normal limits. Five out of 5 muscle strength in the arms and legs. Normal speech. PSYCHIATRIC: Appropriate mood and affect; insight and judgment normal. Data Data Last Documented VS Vital Signs Date Time Temp Pulse Resp B/P (MAP) Pulse Ox O2 Delivery O2 Flow Rate FiO2 08/19/17 23:49 95 Room Air 08/19/17 22:31 99.2 88 20 158/73 (101) Orders Orders Complete Blood Count With Diff (08/19/17 22:47) Comprehensive Metabolic Panel (08/19/17 22:47) Lipase (08/19/17 22:47) Lactic Acid (08/19/17 22:47) Urinalysis - C+S If Indicated (08/19/17 22:47) Iv Access Insert/Monitor (08/19/17 22:47) Ecg Monitoring (08/19/17 22:47) Oximetry (08/19/17 22:47) Ondansetron Inj (Zofran Inj) (08/19/17 23:00) Sodium Chlor 0.9% 1000 Ml Inj (Ns 1000 M (08/19/17 22:47) Sodium Chloride 0.9% Flush (Ns Flush) (08/19/17 23:00) Hydromorphone Pf Inj (Dilaudid Pf Inj) (08/19/17 23:00) Chest, Single Ap (08/19/17 ) Hydromorphone Pf Inj (Dilaudid Pf Inj) (08/19/17 23:45) Morphine Inj (Morphine Inj) (08/20/17 01:30) Sodium Chlor 0.9% 1000 Ml Inj (Ns 1000 M (08/20/17 01:30) Ketorolac Inj (Toradol Inj) (08/20/17 01:30) Labs Laboratory Tests Test 08/19/17 23:45 08/20/17 01:00 08/20/17 01:42 White Blood Count 16.0 TH/MM3 Red Blood Count 3.81 MIL/MM3 Hemoglobin 11.6 GM/DL Hematocrit 34.9 % Mean Corpuscular Volume 91.4 FL Mean Corpuscular Hemoglobin 30.3 PG Mean Corpuscular Hemoglobin Concent 33.2 % Red Cell Distribution Width 19.3 % Platelet Count 271 TH/MM3 Mean Platelet Volume 8.3 FL Neutrophils (%) (Auto) 76.9 % Lymphocytes (%) (Auto) 14.9 % Monocytes (%) (Auto) 6.2 % Eosinophils (%) (Auto) 1.4 % Basophils (%) (Auto) 0.6 % Neutrophils # (Auto) 12.3 TH/MM3 Lymphocytes # (Auto) 2.4 TH/MM3 Monocytes # (Auto) 1.0 TH/MM3 Eosinophils # (Auto) 0.2 TH/MM3 Basophils # (Auto) 0.1 TH/MM3 CBC Comment DIFF FINAL Differential Comment Lactic Acid Level 0.7 mmol/L Blood Urea Nitrogen 18 MG/DL Creatinine 0.80 MG/DL Random Glucose 91 MG/DL Total Protein 8.0 GM/DL Albumin 3.2 GM/DL Calcium Level 9.2 MG/DL Alkaline Phosphatase 78 U/L Aspartate Amino Transf (AST/SGOT) 16 U/L Alanine Aminotransferase (ALT/SGPT) 29 U/L Total Bilirubin 0.4 MG/DL Sodium Level 142 MEQ/L Potassium Level 3.7 MEQ/L Chloride Level 107 MEQ/L Carbon Dioxide Level 24.6 MEQ/L Anion Gap 10 MEQ/L Estimat Glomerular Filtration Rate 118 ML/MIN Lipase 74 U/L [facility] Medical Decision Making Medical Screen Exam Complete: Yes Emergency Medical Condition: Yes Medical Record Reviewed: Yes Differential Diagnosis Neutropenia, chronic pain, neuropathy Narrative Course CBC & BMP Diagram 08/19/17 23:45 08/20/17 01:00 Total Protein 8.0, Albumin 3.2 L, Calcium Level 9.2, Alkaline Phosphatase 78, Aspartate Amino Transf (AST/SGOT) 16, Alanine Aminotransferase (ALT/SGPT) 29, Total Bilirubin 0.4 Workup is grossly unremarkable. Etiology patient's pain is unclear however he has been seen here for a few times for similar complaints. In this setting the patient is ready for discharge home. Pain has been controlled here. Return precautions discussed. Diagnosis Primary Impression: Generalized pain Referrals: Esvin Santoyo MD call for appointment Med/Other Pt SpecificInfo: No Change to Meds Disposition: DISCHARGE HOME Condition: Stable Nilson Daniel MD Aug 19, 2017 22:39
[2017-08-19] MEDS ORDERED: SODIUM CHLOR 0.9% 1000 ML INJ 1,000 ML IV SCH (22:47)
[2017-08-19] MEDS ORDERED: SODIUM CHLORIDE 0.9% FLUSH 10 ML FLUSH IV FLUSH PRN (23:00)
[2017-08-19] MEDS ORDERED: HYDROmorphone HCL PF 1 MG/ML VIAL IVS ONE (23:00)
[2017-08-19] MEDS ORDERED: ONDANSETRON HCL 4 MG/2 ML VIAL IVP ONE (23:00)
--- NOTE | 2017-08-19 23:39 | RADRPT ---
EXAM DATE/TIME: 08/19/2017 23:17 [place] COMPARISON: CHEST SINGLE AP, June 20, 2017, 9:49. INDICATIONS : Patient complains of cough and whole body pain. MEDICAL HISTORY : Leukemia. SURGICAL HISTORY : Infusaport. ENCOUNTER: Initial ACUITY: 1 week PAIN SCORE: 3/10 LOCATION: chest FINDINGS: A single view of the chest demonstrates the lungs to be symmetrically aerated without evidence of mas s, infiltrate or effusion. The cardiomediastinal contours are unremarkable. Osseous structures are intact. [id number] is in good position on the right. CONCLUSION: No acute disease. Audie Gomez MD on August 19, 2017 at 23:36 Board Certified Radiologist. This report was verified electronically.
[2017-08-19] MEDS ORDERED: HYDROmorphone HCL PF 2 MG/ML VIAL IV PUSH ONE (23:45)
[2017-08-19 23:49] VITALS: O2SAT 100; O2SAT 95
[2017-08-20 00:11] LABS: AUTOMATED NEUTROPHIL # 12.3 TH/MM3 (1.8-7.7); BASOPHIL # 0.1 TH/MM3 (0-0.2); BASOPHIL % 0.6 % (0.0-2.0); EOSINOPHIL # 0.2 TH/MM3 (0-0.4); EOSINOPHIL % 1.4 % (0.0-4.0); HEMATOCRIT 34.9 % (39.0-51.0); HEMOGLOBIN 11.6 GM/DL (13.0-17.0); LYMPH % 14.9 % (9.0-44.0); LYMPHOCYTE # 2.4 TH/MM3 (1.0-4.8); MEAN CELL VOLUME 91.4 FL (80.0-100.0); MEAN CORPUSCULAR HEMOGLOBIN 30.3 PG (27.0-34.0); MEAN CORPUSCULAR HGB CONC 33.2 % (32.0-36.0); MEAN PLATELET VOLUME 8.3 FL (7.0-11.0); MONO % 6.2 % (0.0-8.0); NEUT % 76.9 % (16.0-70.0); PLATELET COUNT 271 TH/MM3 (150-450); RED BLOOD COUNT 3.81 MIL/MM3 (4.50-5.90); RED CELL DISTRIBUTION WIDTH 19.3 % (11.6-17.2)
[2017-08-20 01:28] LABS: ALBUMIN 3.2 GM/DL (3.4-5.0); ALT (GPT) 29 U/L (12-78); AST (GOT) 16 U/L (15-37); BICARBONATE 24.6 MEQ/L (21.0-32.0); BLOOD UREA NITROGEN 18 MG/DL (7-18); CALCIUM 9.2 MG/DL (8.5-10.1); CHLORIDE 107 MEQ/L (98-107); GLOMERULAR FILTRATION RATE 118 ML/MIN (>89); GLUCOSE,RANDOM 91 MG/DL (74-106); SODIUM (NA) 142 MEQ/L (136-145)
[2017-08-20] MEDS ORDERED: MORPHINE SULFATE 8 MG/ML INJ IV PUSH ONE (01:30)
[2017-08-20] MEDS ORDERED: KETOROLAC TROMETHAMINE 30 MG/ML (IVP) VIAL IV PUSH ONE (01:30)
[2017-08-20] MEDS ORDERED: SODIUM CHLOR 0.9% 1000 ML INJ 1,000 ML IV ONE (01:30)
[2017-08-20 01:31] LABS: ALKALINE PHOSPHATASE 78 U/L (45-117); TOTAL BILIRUBIN ADULT 0.4 MG/DL (0.2-1.0)
[2017-08-20 02:05] LABS: BILIRUBIN, URINE NEG (NEG); BLOOD, URINE NEG (NEG); GLUCOSE,URINE NEG (NEG); KETONE, URINE NEG (NEG); MUCUS URINE MANY /lpf (OCC); NITRITE,URINE NEG (NEG); PH, URINE 5.5 (5.0-8.5); SQUAMOUS EPITHELIAL CELL URINE 1 /hpf (0-5); URINE COLOR YELLOW (YELLW/STRAW); URINE LEUKOCYTE ESTERASE NEG (NEG)
== END 2017-08-20 02:23 | disposition home or self-care (01) ==
LOC: NEPE 21:31
DX: R52 Pain, unspecified (principal); C92.00 Acute myeloblastic leukemia, not having achieved remission; F41.8 Other specified anxiety disorders; K21.9 Gastro-esophageal reflux disease without esophagitis; F12.90 Cannabis use, unspecified, uncomplicated
CPT/HCPCS: 71045; 80053; 81001; 83605; 83690; 85025; 96361; 96374; 96375; 99284; J1170; J2405; J7030

== ENCOUNTER 2017-09-07 09:28 | Inpatient (IN) | payer MEDICAID, OTHER ==
[~2017-09-07] VITALS: Ht 188 cm; Wt 160.5 kg
[2017-09-07 09:52] VITALS: BP 146/46; PULSE 85; RESP 18; TEMP 98.5; O2SAT 99
[2017-09-07] MEDS ORDERED: PROCHLORPERAZINE INJ 10 MG/2 ML VIAL IV PUSH PRN (10:45)
[2017-09-07] MEDS ORDERED: TEMAZEPAM 15 MG CAP PO PRN (10:45)
[2017-09-07] MEDS ORDERED: MAGNESIUM HYDROXIDE SUSP 30 ML CUP PO PRN (10:45)
[2017-09-07] MEDS ORDERED: ACETAMINOPHEN 325 MG TAB PO PRN (10:45)
[2017-09-07] MEDS ORDERED: ONDANSETRON HCL 4 MG/2 ML VIAL IV PUSH PRN (11:00)
--- NOTE | 2017-09-07 11:23 | PD.ONC.PN ---
Subjective Subjective Remarks Patient reports he is finally over the URI and is ready to begin chemo He is very happy to get his final consolidation chemo over with Currently has no complaints Objective Data Date Time Temp Pulse Resp B/P (MAP) Pulse Ox O2 Delivery O2 Flow Rate FiO2 09/07/17 09:52 98.5 85 18 146/46 (79) 99 Objective Remarks GENERAL: Obese young male ambulating around his room in no distress SKIN: Warm and dry. HEAD: Normocephalic. EYES: No injection or drainage. NECK: Supple, trachea midline. No JVD or lymphadenopathy. CARDIOVASCULAR: Regular rate and rhythm without murmurs. RESPIRATORY: Breath sounds equal bilaterally. No accessory muscle use. GASTROINTESTINAL: Abdomen soft, non-tender, nondistended. EXTREMITIES: No cyanosis, or edema. MUSCULOSKELETAL: Adequate muscle tone. NEUROLOGICAL: No obvious focal deficit. Awake, alert, and oriented x3. Assessment/Plan Problem List: (1) AML (acute myelogenous leukemia) ICD Codes: C92.00 - Acute myeloblastic leukemia, not having achieved remission Status: Chronic Plan: --Pt admitted for his 4th and final consolidation chemotherapy with high- dose kaylie-C. --We will continue his Bactrim Wednesday with Cipro on Wednesday for prophylaxis Assessment 27-year-old male with AML admitted for fourth and final consolidation chemotherapy Plan 1. Start high dose kaylie-C today. 2. Monitor CBC, electrolytes 3. Supportive care Robina Cui September 07, 2017 11:23
[2017-09-07 12:13] LABS: AUTOMATED NEUTROPHIL # 6.6 TH/MM3 (1.8-7.7); BASOPHIL % 0.5 % (0.0-2.0); EOSINOPHIL # 0.1 TH/MM3 (0-0.4); EOSINOPHIL % 0.6 % (0.0-4.0); HEMATOCRIT 35.8 % (39.0-51.0); HEMOGLOBIN 12.2 GM/DL (13.0-17.0); LYMPH % 18.4 % (9.0-44.0); LYMPHOCYTE # 1.7 TH/MM3 (1.0-4.8); MEAN CELL VOLUME 92.2 FL (80.0-100.0); MEAN CORPUSCULAR HEMOGLOBIN 31.6 PG (27.0-34.0); MEAN CORPUSCULAR HGB CONC 34.2 % (32.0-36.0); MEAN PLATELET VOLUME 7.4 FL (7.0-11.0); MONO % 7.4 % (0.0-8.0); MONOCYTE # 0.7 TH/MM3 (0-0.9); NEUT % 73.1 % (16.0-70.0); PLATELET COUNT 213 TH/MM3 (150-450); RED BLOOD COUNT 3.88 MIL/MM3 (4.50-5.90); RED CELL DISTRIBUTION WIDTH 18.8 % (11.6-17.2); WHITE BLOOD COUNT 9.1 TH/MM3 (4.0-11.0)
[2017-09-07 12:32] LABS: ALBUMIN 3.6 GM/DL (3.4-5.0); ALT (GPT) 46 U/L (12-78); AST (GOT) 22 U/L (15-37); BICARBONATE 27.7 MEQ/L (21.0-32.0); BLOOD UREA NITROGEN 10 MG/DL (7-18); CALCIUM 9.2 MG/DL (8.5-10.1); CHLORIDE 107 MEQ/L (98-107); CREATININE 0.83 MG/DL (0.60-1.30); GLOMERULAR FILTRATION RATE 113 ML/MIN (>89); GLUCOSE,RANDOM 105 MG/DL (74-106); SODIUM (NA) 141 MEQ/L (136-145)
[2017-09-07 12:34] LABS: ALKALINE PHOSPHATASE 96 U/L (45-117); TOTAL BILIRUBIN ADULT 0.4 MG/DL (0.2-1.0); TOTAL PROTEIN 7.7 GM/DL (6.4-8.2)
[2017-09-07] MEDS: DEXAMETHASONE SOD PHOS 0.1% OPHT SOLN 5 ML BTL EACH EYE SCH ×4 (12:52→19:56)
[2017-09-07] MEDS: SODIUM CHLOR 0.9% 1000 ML INJ 1,000 ML IV SCH (12:53)
[2017-09-07] MEDS: CIPROFLOXACIN 250 MG TAB PO SCH (12:53)
[2017-09-07] MEDS: GRANISETRON INJ 1 MG, DEXAMETHASONE INJ 20 MG in SODIUM CHLORIDE 0.9% INJ 50 ML IV SCH (12:53)
[2017-09-07] MEDS: CYTARABINE IV SCH (14:26)
[2017-09-07] MEDS: SODIUM CHLOR 0.9% IV SCH (14:26)
[2017-09-07 16:07] VITALS: BP 146/66; PULSE 90; RESP 18; TEMP 98.9; O2SAT 98
[2017-09-07 20:00] VITALS: BP 139/69; PULSE 75; RESP 18; TEMP 99.2; O2SAT 98
[2017-09-07] MEDS: ALPRAZolam 0.5 MG TAB PO PRN (21:15)
[2017-09-07 23:58] VITALS: BP 129/50; PULSE 87; RESP 17; TEMP 97.4; O2SAT 98
[2017-09-08] MEDS: SODIUM CHLOR 0.9% 1000 ML INJ 1,000 ML IV SCH ×2 (00:01→18:01)
--- NOTE | 2017-09-08 00:08 | MH ---
cc: Joey Santoyo MD DATE OF ADMISSION: 09/07/2017 REASON FOR ADMISSION: The patient with the diagnosis of acute myeloid leukemia, status post induction chemotherapy, who is now being admitted for consolidation chemotherapy #4. HISTORY OF PRESENT ILLNESS: This is a 27-year-old male with a history of acute myeloid leukemia, who is now being admitted for consolidation #4 with HiDAC chemotherapy. He has favorable risk acute leukemia with inversion 16 FLT 3 negative disease. KIT mutation was also negative. He was diagnosed with acute myeloid leukemia in fall. He was treated with 7+3 induction chemotherapy. He achieved complete remission. He then received 3 cycles of HiDAC chemotherapy for consolidation purposes. His treatment course has been complicated with hospital admissions resulting from febrile neutropenia. He has also been noncompliant with his office visits. The patient was scheduled for planned consolidation treatment approximately 2 weeks ago, but unfortunately, he developed an upper respiratory tract infection and was having fevers and, thus, the consolidation treatment was postponed. He is now being admitted to the hospital to begin his treatments. Today, he denies any headaches. No blurry vision. No chest pain, no shortness of breath. No abdominal pain. No lower extremity edema or pain. He denies any nosebleeds or gum bleeds. He states that he would like to complete his last consolidation treatment. REVIEW OF SYSTEMS: A comprehensive review of system was completed, which is negative except as described in the HPI. PAST MEDICAL HISTORY: 1. Acute myeloid leukemia. 2. History of erosive esophagitis. 3. Morbid obesity. 4. Anxiety. PAST SURGICAL HISTORY: Bone marrow biopsy x 2 in 2016. OUTPATIENT MEDICATIONS: 1. Acyclovir 200 mg b.i.d. 2. Pantoprazole 40 mg at bedtime. 3. Bactrim 800 x 160 Wednesday, Wednesday and Wednesday, Cipro 250 mg on Tuesdays, and Saturdays. ALLERGIES: NO KNOWN DRUG ALLERGIES. FAMILY HISTORY: Reviewed and is noncontributory to this admission. 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 He does not smoke cigarettes. He does not drink alcohol. No illicit drug use. PHYSICAL EXAMINATION: VITAL SIGNS: Blood pressure is 124/62, pulse is in the 70s, temperature afebrile, O2 saturations are 98% on room air. GENERAL: Well-developed, well-nourished, obese male in no apparent distress. HEENT: Pupils are equal, round, reactive to light. EOMI. No thrush. No lesion. NECK: Supple. No JVD. No bruits. No lymphadenopathy. CHEST: Clear to auscultation bilaterally. CARDIAC: S1, S2. Regular rate and rhythm. ABDOMEN: Soft, nontender, nondistended. Bowel sounds are present. EXTREMITIES: Without any edema, erythema or cyanosis. SKIN: Without any petechiae, lesion or bruises. NEUROLOGIC: No focal deficits. PSYCHIATRIC: Mood and affect is appropriate. LABORATORY DATA: Labs were reviewed in the EMR. ASSESSMENT AND PLAN: This is a 27-year-old male with a diagnosis of acute myeloid leukemia. He is currently in complete remission. 1. He is being admitted for consolidation chemotherapy. 2. Acute myeloid leukemia with inversion 16, which portends a favorable prognosis, FLT 3 negative disease, KIT mutation negative. The patient continues to remain in remission. He has had complete count recovery. We will proceed with his last cycle of HiDAC chemotherapy. Chemotherapy orders were placed. Labs were reviewed before initiating his chemotherapy. He will receive HiDAC treatment on day 1, 3 and 5. We will initiate steroid eyedrops. Daily labs will be monitored. 3. Monitor for DIC. Check daily fibrinogen. 4. ID prophylaxis. Continue Bactrim double strength Wednesday, Wednesday and Wednesday, Cipro 250 mg Wednesday, and Wednesday. Continue acyclovir 200 mg p.o. b.i.d. 5. Gastroesophageal reflux disease. Continue pantoprazole. 6. Deep venous thrombosis prophylaxis. Initiate Lovenox subcutaneous 40 mg daily. 7. History of narcotic-seeking behavior during past hospital admissions. We will minimize oral or IV narcotics during this admission. 8. History of anxiety. We can continue oral Ativan 0.5 mg p.o. t.i.d. as needed for anxiety. Further recommendations will be made during the course of this hospital admission. MD JENNA Cotton/MARCELINA , 11:15 PM , 12:07 AM ROSALINO
[2017-09-08] MEDS ORDERED: GRANISETRON INJ 1 MG, DEXAMETHASONE INJ 20 MG in SODIUM CHLORIDE 0.9% INJ 50 ML IV SCH (01:00)
[2017-09-08] MEDS: SODIUM CHLOR 0.9% IV SCH (02:11)
[2017-09-08] MEDS: CYTARABINE IV SCH (02:11)
[2017-09-08 04:00] VITALS: BP 141/73; PULSE 89; RESP 16; TEMP 97.3; O2SAT 99
[2017-09-08 06:19] LABS: AUTOMATED NEUTROPHIL # 11.9 TH/MM3 (1.8-7.7); BASOPHIL # 0.1 TH/MM3 (0-0.2); BASOPHIL % 0.4 % (0.0-2.0); HEMATOCRIT 36.2 % (39.0-51.0); HEMOGLOBIN 11.8 GM/DL (13.0-17.0); LYMPH % 3.9 % (9.0-44.0); LYMPHOCYTE # 0.5 TH/MM3 (1.0-4.8); MEAN CELL VOLUME 92.3 FL (80.0-100.0); MEAN CORPUSCULAR HGB CONC 32.5 % (32.0-36.0); MEAN PLATELET VOLUME 7.7 FL (7.0-11.0); MONO % 2.7 % (0.0-8.0); MONOCYTE # 0.3 TH/MM3 (0-0.9); PLATELET COUNT 217 TH/MM3 (150-450); RED BLOOD COUNT 3.92 MIL/MM3 (4.50-5.90); RED CELL DISTRIBUTION WIDTH 18.6 % (11.6-17.2); WHITE BLOOD COUNT 12.8 TH/MM3 (4.0-11.0)
[2017-09-08 06:48] LABS: BICARBONATE 27.3 MEQ/L (21.0-32.0); CALCIUM 9.3 MG/DL (8.5-10.1); CREATININE 0.85 MG/DL (0.60-1.30)
[2017-09-08 09:07] VITALS: BP 165/79; PULSE 89; RESP 18; TEMP 97.7; O2SAT 98
[2017-09-08] MEDS: SULFAMETHOXAZOLE-TRIMETHOPRIM DS 800-160 MG TAB PO SCH (09:13)
[2017-09-08] MEDS: ALPRAZolam 0.5 MG TAB PO PRN ×2 (09:13→21:35)
[2017-09-08] MEDS: DEXAMETHASONE SOD PHOS 0.1% OPHT SOLN 5 ML BTL EACH EYE SCH ×4 (09:14→20:31)
[2017-09-08 11:25] VITALS: BP 137/68; PULSE 83; RESP 18; TEMP 98.3; O2SAT 97
--- NOTE | 2017-09-08 11:53 | PD.ONC.PN ---
Subjective Subjective Remarks Afebrile overnight Pt sitting up in chair at bedside. He reports the diffuse body pain began last night after chemo. He does report that he slept exceptionally well last night Reports the oxycodone is helping pain Objective Data Date Time Temp Pulse Resp B/P (MAP) Pulse Ox O2 Delivery O2 Flow Rate FiO2 09/08/17 11:25 98.3 83 18 137/68 (91) 97 09/08/17 09:07 97.7 89 18 165/79 (107) 98 09/08/17 04:00 97.3 89 16 141/73 (95) 99 09/07/17 23:58 97.4 87 17 129/50 (76) 98 09/07/17 20:00 99.2 75 18 139/69 (92) 98 09/07/17 16:07 98.9 90 18 146/66 (92) 98 09/08/17 09/08/17 09/08/17 07:00 15:00 23:00 Intake Total 1810 ml 480 ml Output Total 1800 ml 400 ml Balance 10 ml 80 ml Result Diagram: 09/08/17 0550 09/08/17 0550 Laboratory Results Laboratory Tests Test 09/08/17 05:50 White Blood Count 12.8 TH/MM3 Red Blood Count 3.92 MIL/MM3 Hemoglobin 11.8 GM/DL Hematocrit 36.2 % Mean Corpuscular Volume 92.3 FL Mean Corpuscular Hemoglobin 30.0 PG Mean Corpuscular Hemoglobin Concent 32.5 % Red Cell Distribution Width 18.6 % Platelet Count 217 TH/MM3 Mean Platelet Volume 7.7 FL Neutrophils (%) (Auto) 93.0 % Lymphocytes (%) (Auto) 3.9 % Monocytes (%) (Auto) 2.7 % Eosinophils (%) (Auto) 0.0 % Basophils (%) (Auto) 0.4 % Neutrophils # (Auto) 11.9 TH/MM3 Lymphocytes # (Auto) 0.5 TH/MM3 Monocytes # (Auto) 0.3 TH/MM3 Eosinophils # (Auto) 0.0 TH/MM3 Basophils # (Auto) 0.1 TH/MM3 CBC Comment DIFF FINAL Differential Comment Blood Urea Nitrogen 12 MG/DL Creatinine 0.85 MG/DL Random Glucose 164 MG/DL Calcium Level 9.3 MG/DL Sodium Level 141 MEQ/L Potassium Level 4.1 MEQ/L Chloride Level 107 MEQ/L Carbon Dioxide Level 27.3 MEQ/L Anion Gap 7 MEQ/L Estimat Glomerular Filtration Rate 110 ML/MIN Administered Medications Medications (Trade) Dose Ordered Sig/Emma Route PRN Reason Start Time Stop Time Status Last Admin Dose Admin Dexamethasone Sodium Phosphate (Decadron Opth 0.1% Soln) 2 drop QID EACH EYE 09/07/17 11:00 09/14/17 09:01 09/08/17 09:14 Sodium Chloride 1,000 ml @ 75 mls/hr [id number] IV 09/07/17 11:00 09/08/17 00:01 Granisetron HCl 1 mg/Dexamethasone Sodium Phosphate 20 mg/Sodium Chloride 56 ml @ 336 mls/hr Q24H IV 09/07/17 12:30 09/11/17 12:39 09/07/17 12:53 Trimethoprim/ Sulfamethoxazole (Bactrim Ds 800-160 Mg) 1 tab MoWeFr@0900 PO 09/08/17 09:00 09/08/17 09:13 Ciprofloxacin (Cipro) 250 mg TuThSa@0900 PO 09/07/17 13:00 09/07/17 12:53 Alprazolam (Xanax) 0.5 mg TID PRN PO ANXIETY 09/07/17 20:30 09/08/17 09:13 Oxycodone HCl (Roxicodone) 5 mg Q6H PRN PO PAIN SCALE 1 TO 10 09/07/17 20:30 09/08/17 09:13 Objective Remarks GENERAL: Obese young male sitting in chair at bedside in no obvious distress SKIN: Warm and dry. HEAD: Normocephalic. EYES: No injection or drainage. NECK: Supple, trachea midline. No JVD or lymphadenopathy. CARDIOVASCULAR: Regular rate and rhythm without murmurs. RESPIRATORY: Breath sounds equal bilaterally. No accessory muscle use. GASTROINTESTINAL: Abdomen soft, non-tender, nondistended. EXTREMITIES: No cyanosis, or edema. MUSCULOSKELETAL: Adequate muscle tone. NEUROLOGICAL: No obvious focal deficit. Awake, alert, and oriented x3. Assessment/Plan Problem List: (1) AML (acute myelogenous leukemia) ICD Codes: C92.00 - Acute myeloblastic leukemia, not having achieved remission Status: Chronic Plan: Hx/Workup:Patient was originally diagnosed in the fall 2016 demonstrated with 7+3 induction chemotherapy. He is status post 3 cycles of high-back chemo for consolidation. His course unfortunately was complicated by frequent admissions due to febrile neutropenia. He was found to be FLT3 negative as well as negative for the KIT mutation. He has good risk acute leukemia with inversion 16. --Pt admitted for his 4th and final consolidation chemotherapy with high-dose kaylie-C. --We will continue his Bactrim Wednesday with Cipro on Wednesday for prophylaxis 09/07: Day #1 of HiDAC chemo 09/08: Off day today Assessment 27-year-old male with AML admitted for fourth and final consolidation chemotherapy Plan 1. No chemo today; will resume with day #2 tomorrow of HiDAC 2. Continue supportive care. 3. Labs in am- CBC, BMP. Attending Statement The exam, history, and the medical decision-making described in the above note were completed with the assistance of the mid-level provider. I reviewed and agree with the findings presented. I attest that I had a [id number] encounter with the patient on the same day, and personally performed and documented my assessment and findings in the medical record denies any pain no major side-effects after chemotherapy monitor cbc and cmp Robina Cui September 08, 2017 11:53 Joey Santoyo MD September 08, 2017 21:39
[2017-09-08] MEDS: GRANISETRON INJ 1 MG, DEXAMETHASONE INJ 20 MG in SODIUM CHLORIDE 0.9% INJ 50 ML IV SCH (14:20)
[2017-09-08 15:06] VITALS: BP 131/64; PULSE 88; RESP 18; TEMP 97.9; O2SAT 98
[2017-09-08 20:22] VITALS: BP 157/98; PULSE 82; RESP 18; TEMP 98; O2SAT 97
[2017-09-09 00:43] VITALS: BP 140/69; PULSE 79; RESP 16; TEMP 97.6; O2SAT 99
[2017-09-09] MEDS: SODIUM CHLOR 0.9% 1000 ML INJ 1,000 ML IV SCH ×2 (04:14→09:04)
[2017-09-09 04:17] VITALS: BP 141/58; PULSE 68; RESP 16; TEMP 97.6; O2SAT 97
[2017-09-09 06:47] LABS: AUTOMATED NEUTROPHIL # 9.8 TH/MM3 (1.8-7.7); BASOPHIL % 0.1 % (0.0-2.0); HEMATOCRIT 34.4 % (39.0-51.0); HEMOGLOBIN 11.4 GM/DL (13.0-17.0); LYMPH % 2.1 % (9.0-44.0); LYMPHOCYTE # 0.2 TH/MM3 (1.0-4.8); MEAN CELL VOLUME 93.2 FL (80.0-100.0); MEAN CORPUSCULAR HEMOGLOBIN 30.9 PG (27.0-34.0); MEAN CORPUSCULAR HGB CONC 33.2 % (32.0-36.0); MEAN PLATELET VOLUME 7.5 FL (7.0-11.0); MONO % 3.2 % (0.0-8.0); MONOCYTE # 0.3 TH/MM3 (0-0.9); NEUT % 94.6 % (16.0-70.0); PLATELET COUNT 204 TH/MM3 (150-450); RED BLOOD COUNT 3.69 MIL/MM3 (4.50-5.90); RED CELL DISTRIBUTION WIDTH 18.7 % (11.6-17.2); WHITE BLOOD COUNT 10.3 TH/MM3 (4.0-11.0)
[2017-09-09 07:05] LABS: BICARBONATE 27.7 MEQ/L (21.0-32.0); CALCIUM 8.7 MG/DL (8.5-10.1); CREATININE 0.76 MG/DL (0.60-1.30); MAGNESIUM 2.2 MG/DL (1.5-2.5)
[2017-09-09 08:50] VITALS: BP 125/79; PULSE 79; RESP 16; TEMP 97.4; O2SAT 97
[2017-09-09] MEDS: CIPROFLOXACIN 250 MG TAB PO SCH (08:58)
[2017-09-09] MEDS: DEXAMETHASONE SOD PHOS 0.1% OPHT SOLN 5 ML BTL EACH EYE SCH ×3 (09:04→21:33)
[2017-09-09] MEDS ORDERED: LOPERAMIDE HCL 2 MG CAP PO PRN (10:00)
--- NOTE | 2017-09-09 11:19 | PD.ONC.PN ---
Subjective Subjective Remarks Afebrile Patient sitting up in chair at bedside watching a movie in no obvious distress He reports he has diffuse body pain since starting the chemo however he is managing with the oxycodone Denies nausea or diarrhea Objective Data Date Time Temp Pulse Resp B/P (MAP) Pulse Ox O2 Delivery O2 Flow Rate FiO2 09/09/17 08:50 97.4 79 16 125/79 (94) 97 09/09/17 04:17 97.6 68 16 141/58 (85) 97 09/09/17 00:43 97.6 79 16 140/69 (92) 99 09/08/17 20:22 98.0 82 18 157/98 (117) 97 09/08/17 15:06 97.9 88 18 131/64 (86) 98 09/08/17 11:25 98.3 83 18 137/68 (91) 97 09/09/17 09/09/17 09/09/17 07:00 15:00 23:00 Intake Total 150 ml 1916 ml Balance 150 ml 1916 ml Result Diagram: 09/09/17 0415 09/09/17 0415 Laboratory Results Laboratory Tests Test 09/09/17 04:15 White Blood Count 10.3 TH/MM3 Red Blood Count 3.69 MIL/MM3 Hemoglobin 11.4 GM/DL Hematocrit 34.4 % Mean Corpuscular Volume 93.2 FL Mean Corpuscular Hemoglobin 30.9 PG Mean Corpuscular Hemoglobin Concent 33.2 % Red Cell Distribution Width 18.7 % Platelet Count 204 TH/MM3 Mean Platelet Volume 7.5 FL Neutrophils (%) (Auto) 94.6 % Lymphocytes (%) (Auto) 2.1 % Monocytes (%) (Auto) 3.2 % Eosinophils (%) (Auto) 0.0 % Basophils (%) (Auto) 0.1 % Neutrophils # (Auto) 9.8 TH/MM3 Lymphocytes # (Auto) 0.2 TH/MM3 Monocytes # (Auto) 0.3 TH/MM3 Eosinophils # (Auto) 0.0 TH/MM3 Basophils # (Auto) 0.0 TH/MM3 CBC Comment DIFF FINAL Differential Comment Blood Urea Nitrogen 14 MG/DL Creatinine 0.76 MG/DL Random Glucose 166 MG/DL Calcium Level 8.7 MG/DL Phosphorus Level 3.0 MG/DL Magnesium Level 2.2 MG/DL Sodium Level 141 MEQ/L Potassium Level 3.8 MEQ/L Chloride Level 107 MEQ/L Carbon Dioxide Level 27.7 MEQ/L Anion Gap 6 MEQ/L Estimat Glomerular Filtration Rate 125 ML/MIN Administered Medications Medications (Trade) Dose Ordered Sig/Emma Route PRN Reason Start Time Stop Time Status Last Admin Dose Admin Dexamethasone Sodium Phosphate (Decadron Opth 0.1% Soln) 2 drop QID EACH EYE 09/07/17 11:00 09/14/17 09:01 09/09/17 09:04 Sodium Chloride 1,000 ml @ 75 mls/hr [id number] IV 09/07/17 11:00 09/09/17 09:04 Granisetron HCl 1 mg/Dexamethasone Sodium Phosphate 20 mg/Sodium Chloride 56 ml @ 336 mls/hr Q24H IV 09/07/17 12:30 09/11/17 12:39 09/08/17 14:20 Trimethoprim/ Sulfamethoxazole (Bactrim Ds 800-160 Mg) 1 tab MoWeFr@0900 PO 09/08/17 09:00 09/08/17 09:13 Ciprofloxacin (Cipro) 250 mg TuThSa@0900 PO 09/07/17 13:00 09/09/17 08:58 Alprazolam (Xanax) 0.5 mg TID PRN PO ANXIETY 09/07/17 20:30 09/08/17 21:35 Oxycodone HCl (Roxicodone) 5 mg Q6H PRN PO PAIN SCALE 1 TO 10 09/07/17 20:30 09/08/17 21:35 Objective Remarks GENERAL: Obese young male sitting in chair at bedside in no obvious distress SKIN: Warm and dry. HEAD: Normocephalic. EYES: No injection or drainage. NECK: Supple, trachea midline. No JVD or lymphadenopathy. CARDIOVASCULAR: Regular rate and rhythm without murmurs. RESPIRATORY: Breath sounds equal bilaterally. No accessory muscle use. GASTROINTESTINAL: Abdomen soft, non-tender, nondistended. EXTREMITIES: No cyanosis, or edema. MUSCULOSKELETAL: Adequate muscle tone. NEUROLOGICAL: No obvious focal deficit. Awake, alert, and oriented x3. Assessment/Plan Problem List: (1) AML (acute myelogenous leukemia) ICD Codes: C92.00 - Acute myeloblastic leukemia, not having achieved remission Status: Chronic Plan: Hx/Workup:Patient was originally diagnosed in the fall 2016 and treated with 7+3 induction chemotherapy. He is status post 3 cycles of HiDAC chemo for consolidation. He was found to be FLT3 negative as well as negative for the KIT mutation. He has good risk acute leukemia with inversion 16. His course unfortunately was complicated by frequent admissions due to febrile neutropenia --Pt admitted for his 4th and final consolidation chemotherapy with high-dose kaylie-C. --We will continue his Bactrim Wednesday with Cipro on Wednesday for prophylaxis 09/07: Day #1 of HiDAC chemo 5/2: Off day today 09/09: Day #2 of HiDAC chemo Assessment 27-year-old male with AML admitted for fourth and final consolidation chemotherapy Plan 1. Day #2 of high-dose cytarabine today 2. Continue to monitor labs 3. Supportive care Attending Statement The exam, history, and the medical decision-making described in the above note were completed with the assistance of the mid-level provider. I reviewed and agree with the findings presented. I attest that I had a [id number] encounter with the patient on the same day, and personally performed and documented my assessment and findings in the medical record AML -favorable risk disease CR #1 HiDAC consolidation # 4 continue treatment supportive care monitor labs Robina Cui September 09, 2017 11:19 Joey Santoyo MD September 09, 2017 22:56
[2017-09-09 11:50] VITALS: BP 149/73; PULSE 75; RESP 16; TEMP 97.6; O2SAT 99
[2017-09-09] MEDS: ALPRAZolam 0.5 MG TAB PO PRN ×2 (12:26→21:35)
[2017-09-09] MEDS: GRANISETRON INJ 1 MG, DEXAMETHASONE INJ 20 MG in SODIUM CHLORIDE 0.9% INJ 50 ML IV SCH (12:56)
[2017-09-09] MEDS: CYTARABINE IV SCH (14:31)
[2017-09-09] MEDS: SODIUM CHLOR 0.9% IV SCH (14:31)
[2017-09-09 16:23] VITALS: BP 151/76; PULSE 73; RESP 16; TEMP 97.9; O2SAT 98
[2017-09-09 21:40] VITALS: BP 130/69; PULSE 77; RESP 16; TEMP 97.9; O2SAT 99
[2017-09-10 00:15] VITALS: BP 115/59; PULSE 83; RESP 18; TEMP 97.5; O2SAT 98
[2017-09-10] MEDS: SODIUM CHLOR 0.9% IV SCH (02:39)
[2017-09-10] MEDS: CYTARABINE IV SCH (02:39)
[2017-09-10 05:12] VITALS: BP 133/80; PULSE 68; RESP 18; TEMP 97.4; O2SAT 98
[2017-09-10 06:17] LABS: AUTOMATED NEUTROPHIL # 9.9 TH/MM3 (1.8-7.7); BASOPHIL % 0.1 % (0.0-2.0); HEMATOCRIT 34.3 % (39.0-51.0); HEMOGLOBIN 11.2 GM/DL (13.0-17.0); LYMPH % 2.4 % (9.0-44.0); LYMPHOCYTE # 0.2 TH/MM3 (1.0-4.8); MEAN CELL VOLUME 93.4 FL (80.0-100.0); MEAN CORPUSCULAR HEMOGLOBIN 30.5 PG (27.0-34.0); MEAN CORPUSCULAR HGB CONC 32.6 % (32.0-36.0); MEAN PLATELET VOLUME 7.4 FL (7.0-11.0); MONO % 1.3 % (0.0-8.0); MONOCYTE # 0.1 TH/MM3 (0-0.9); NEUT % 96.2 % (16.0-70.0); PLATELET COUNT 199 TH/MM3 (150-450); RED BLOOD COUNT 3.67 MIL/MM3 (4.50-5.90); RED CELL DISTRIBUTION WIDTH 18.1 % (11.6-17.2); WHITE BLOOD COUNT 10.3 TH/MM3 (4.0-11.0)
[2017-09-10 06:40] LABS: BICARBONATE 27.7 MEQ/L (21.0-32.0); CALCIUM 8.6 MG/DL (8.5-10.1); CREATININE 0.74 MG/DL (0.60-1.30)
[2017-09-10 08:48] VITALS: BP 115/91; PULSE 93; RESP 16; TEMP 97.9; O2SAT 99
[2017-09-10] MEDS: SODIUM CHLOR 0.9% 1000 ML INJ 1,000 ML IV SCH ×2 (09:00→20:59)
[2017-09-10] MEDS: DEXAMETHASONE SOD PHOS 0.1% OPHT SOLN 5 ML BTL EACH EYE SCH ×3 (09:12→20:47)
[2017-09-10] MEDS: SULFAMETHOXAZOLE-TRIMETHOPRIM DS 800-160 MG TAB PO SCH (09:12)
--- NOTE | 2017-09-10 11:42 | PD.ONC.PN ---
Subjective Subjective Remarks Afebrile Pt is looking forward to getting out of the hospital on Wednesday States he is feeling thankful and is planning to go to [employer] Denies nausea or diarrhea Objective Data Date Time Temp Pulse Resp B/P (MAP) Pulse Ox O2 Delivery O2 Flow Rate FiO2 09/10/17 08:48 97.9 93 16 115/91 (99) 99 09/10/17 05:12 97.4 68 18 133/80 (97) 98 09/10/17 00:15 97.5 83 18 115/59 (77) 98 09/09/17 21:40 97.9 77 16 130/69 (89) 99 09/09/17 16:23 97.9 73 16 151/76 (101) 98 09/09/17 11:50 97.6 75 16 149/73 (98) 99 09/10/17 09/10/17 09/10/17 07:00 15:00 23:00 Intake Total 1480 ml 350 ml Output Total 700 ml Balance 780 ml 350 ml Result Diagram: 09/10/17 0500 09/10/17 0500 Laboratory Results Laboratory Tests Test 09/10/17 05:00 White Blood Count 10.3 TH/MM3 Red Blood Count 3.67 MIL/MM3 Hemoglobin 11.2 GM/DL Hematocrit 34.3 % Mean Corpuscular Volume 93.4 FL Mean Corpuscular Hemoglobin 30.5 PG Mean Corpuscular Hemoglobin Concent 32.6 % Red Cell Distribution Width 18.1 % Platelet Count 199 TH/MM3 Mean Platelet Volume 7.4 FL Neutrophils (%) (Auto) 96.2 % Lymphocytes (%) (Auto) 2.4 % Monocytes (%) (Auto) 1.3 % Eosinophils (%) (Auto) 0.0 % Basophils (%) (Auto) 0.1 % Neutrophils # (Auto) 9.9 TH/MM3 Lymphocytes # (Auto) 0.2 TH/MM3 Monocytes # (Auto) 0.1 TH/MM3 Eosinophils # (Auto) 0.0 TH/MM3 Basophils # (Auto) 0.0 TH/MM3 CBC Comment DIFF FINAL Differential Comment Blood Urea Nitrogen 15 MG/DL Creatinine 0.74 MG/DL Random Glucose 156 MG/DL Calcium Level 8.6 MG/DL Sodium Level 143 MEQ/L Potassium Level 3.9 MEQ/L Chloride Level 107 MEQ/L Carbon Dioxide Level 27.7 MEQ/L Anion Gap 8 MEQ/L Estimat Glomerular Filtration Rate 129 ML/MIN Administered Medications Medications (Trade) Dose Ordered Sig/Emma Route PRN Reason Start Time Stop Time Status Last Admin Dose Admin Dexamethasone Sodium Phosphate (Decadron Opth 0.1% Soln) 2 drop QID EACH EYE 09/07/17 11:00 09/14/17 09:01 09/10/17 09:12 Sodium Chloride 1,000 ml @ 75 mls/hr [id number] IV 09/07/17 11:00 09/09/17 09:04 Granisetron HCl 1 mg/Dexamethasone Sodium Phosphate 20 mg/Sodium Chloride 56 ml @ 336 mls/hr Q24H IV 09/07/17 12:30 09/11/17 12:39 09/09/17 12:56 Trimethoprim/ Sulfamethoxazole (Bactrim Ds 800-160 Mg) 1 tab MoWeFr@0900 PO 09/08/17 09:00 09/10/17 09:12 Ciprofloxacin (Cipro) 250 mg TuThSa@0900 PO 09/07/17 13:00 09/09/17 08:58 Alprazolam (Xanax) 0.5 mg TID PRN PO ANXIETY 09/07/17 20:30 09/09/17 21:35 Oxycodone HCl (Roxicodone) 5 mg Q6H PRN PO PAIN SCALE 1 TO 10 09/07/17 20:30 09/10/17 05:21 Objective Remarks GENERAL: Obese young male sitting in chair at bedside in no obvious distress SKIN: Warm and dry. HEAD: Normocephalic. EYES: No injection or drainage. NECK: Supple, trachea midline. No JVD or lymphadenopathy. CARDIOVASCULAR: Regular rate and rhythm without murmurs. RESPIRATORY: Breath sounds equal bilaterally. No accessory muscle use. GASTROINTESTINAL: Abdomen soft, non-tender, nondistended. EXTREMITIES: No cyanosis, or edema. MUSCULOSKELETAL: Adequate muscle tone. NEUROLOGICAL: No obvious focal deficit. Awake, alert, and oriented x3. Assessment/Plan Problem List: (1) AML (acute myelogenous leukemia) ICD Codes: C92.00 - Acute myeloblastic leukemia, not having achieved remission Status: Chronic Plan: Hx/Workup:Patient was originally diagnosed in the fall 2016 and treated with 7+3 induction chemotherapy. He is status post 3 cycles of HiDAC chemo for consolidation. He was found to be FLT3 negative as well as negative for the KIT mutation. He has good risk acute leukemia with inversion 16. His course unfortunately was complicated by frequent admissions due to febrile neutropenia --Pt admitted for his 4th and final consolidation chemotherapy with high-dose kaylie-C. --We will continue his Bactrim Wednesday with Cipro on Wednesday for prophylaxis 09/07: Day #1 of HiDAC chemo 09/08: Off day today 09/09: Day #2 of HiDAC chemo Assessment 27-year-old male with AML admitted for fourth and final consolidation chemotherapy Plan 1. Reviewed vitals and labs. 2. Off day today. 3. Last chemo to start tomorrow, then plan for discharge on Wednesday. Attending Statement The exam, history, and the medical decision-making described in the above note were completed with the assistance of the mid-level provider. I reviewed and agree with the findings presented. I attest that I had a [id number] encounter with the patient on the same day, and personally performed and documented my assessment and findings in the medical record AML consolidation # 4 with HiDAC doing well and appears jovial tolerating treatment labs stable plan discharge for wednesday f/u in clinic next in [facility] with CBC and CMP Robina Cui September 10, 2017 11:42 Joey Santoyo MD September 10, 2017 21:15
[2017-09-10 12:20] VITALS: BP 135/81; PULSE 67; RESP 16; TEMP 98.2; O2SAT 99
[2017-09-10] MEDS: GRANISETRON INJ 1 MG, DEXAMETHASONE INJ 20 MG in SODIUM CHLORIDE 0.9% INJ 50 ML IV SCH (12:20)
[2017-09-10 20:44] VITALS: BP 126/77; PULSE 73; RESP 18; TEMP 97.8; O2SAT 98
[2017-09-10] MEDS: ALPRAZolam 0.5 MG TAB PO PRN (20:45)
[2017-09-11 01:10] VITALS: BP 145/73; PULSE 61; RESP 16; TEMP 97.7; O2SAT 97
[2017-09-11 04:17] VITALS: BP 124/69; PULSE 55; RESP 16; TEMP 97.4; O2SAT 100
[2017-09-11 05:59] LABS: AUTOMATED NEUTROPHIL # 8.2 TH/MM3 (1.8-7.7); HEMATOCRIT 33.6 % (39.0-51.0); LYMPH % 2.3 % (9.0-44.0); LYMPHOCYTE # 0.2 TH/MM3 (1.0-4.8); MEAN CELL VOLUME 92.4 FL (80.0-100.0); MEAN CORPUSCULAR HEMOGLOBIN 30.4 PG (27.0-34.0); MEAN CORPUSCULAR HGB CONC 32.9 % (32.0-36.0); MEAN PLATELET VOLUME 7.3 FL (7.0-11.0); MONO % 0.6 % (0.0-8.0); MONOCYTE # 0.1 TH/MM3 (0-0.9); NEUT % 97.1 % (16.0-70.0); PLATELET COUNT 182 TH/MM3 (150-450); RED BLOOD COUNT 3.63 MIL/MM3 (4.50-5.90); RED CELL DISTRIBUTION WIDTH 18.3 % (11.6-17.2); WHITE BLOOD COUNT 8.5 TH/MM3 (4.0-11.0)
[2017-09-11 06:26] LABS: BICARBONATE 27.5 MEQ/L (21.0-32.0); CALCIUM 8.8 MG/DL (8.5-10.1); CREATININE 0.8 MG/DL (0.60-1.30)
[2017-09-11] MEDS: SODIUM CHLOR 0.9% 1000 ML INJ 1,000 ML IV SCH ×2 (08:20→18:19)
[2017-09-11] MEDS: DEXAMETHASONE SOD PHOS 0.1% OPHT SOLN 5 ML BTL EACH EYE SCH ×4 (09:00→22:42)
[2017-09-11] MEDS: ALPRAZolam 0.5 MG TAB PO PRN ×2 (09:11→18:18)
[2017-09-11] MEDS: CIPROFLOXACIN 250 MG TAB PO SCH (09:11)
[2017-09-11 09:12] VITALS: BP 153/62; PULSE 62; RESP 16; TEMP 97.6; O2SAT 100
--- NOTE | 2017-09-11 09:57 | PD.ONC.PN ---
Subjective Subjective Remarks Afebrile Patient resting in bed in no obvious distress Anxious to go home tomorrow No acute complaints Objective Data Date Time Temp Pulse Resp B/P (MAP) Pulse Ox O2 Delivery O2 Flow Rate FiO2 09/11/17 09:12 97.6 62 16 153/62 (92) 100 09/11/17 04:17 97.4 55 16 124/69 (87) 100 09/11/17 01:10 97.7 61 16 145/73 (97) 97 09/10/17 20:44 97.8 73 18 126/77 (93) 98 09/10/17 12:20 98.2 67 16 135/81 (99) 99 09/11/17 09/11/17 09/11/17 07:00 15:00 23:00 Intake Total 1395 ml 1000 ml Output Total 1200 ml 1200 ml Balance 195 ml -200 ml Result Diagram: 09/11/17 0420 09/11/17 0420 Laboratory Results Laboratory Tests Test 09/11/17 04:20 White Blood Count 8.5 TH/MM3 Red Blood Count 3.63 MIL/MM3 Hemoglobin 11.0 GM/DL Hematocrit 33.6 % Mean Corpuscular Volume 92.4 FL Mean Corpuscular Hemoglobin 30.4 PG Mean Corpuscular Hemoglobin Concent 32.9 % Red Cell Distribution Width 18.3 % Platelet Count 182 TH/MM3 Mean Platelet Volume 7.3 FL Neutrophils (%) (Auto) 97.1 % Lymphocytes (%) (Auto) 2.3 % Monocytes (%) (Auto) 0.6 % Eosinophils (%) (Auto) 0.0 % Basophils (%) (Auto) 0.0 % Neutrophils # (Auto) 8.2 TH/MM3 Lymphocytes # (Auto) 0.2 TH/MM3 Monocytes # (Auto) 0.1 TH/MM3 Eosinophils # (Auto) 0.0 TH/MM3 Basophils # (Auto) 0.0 TH/MM3 CBC Comment DIFF FINAL Differential Comment Blood Urea Nitrogen 14 MG/DL Creatinine 0.80 MG/DL Random Glucose 123 MG/DL Calcium Level 8.8 MG/DL Sodium Level 141 MEQ/L Potassium Level 3.8 MEQ/L Chloride Level 105 MEQ/L Carbon Dioxide Level 27.5 MEQ/L Anion Gap 9 MEQ/L Estimat Glomerular Filtration Rate 118 ML/MIN Administered Medications Medications (Trade) Dose Ordered Sig/Emma Route PRN Reason Start Time Stop Time Status Last Admin Dose Admin Dexamethasone Sodium Phosphate (Decadron Opth 0.1% Soln) 2 drop QID EACH EYE 09/07/17 11:00 09/14/17 09:01 09/11/17 09:00 Sodium Chloride 1,000 ml @ 75 mls/hr [id number] IV 09/07/17 11:00 09/11/17 08:20 Granisetron HCl 1 mg/Dexamethasone Sodium Phosphate 20 mg/Sodium Chloride 56 ml @ 336 mls/hr Q24H IV 09/07/17 12:30 09/11/17 12:39 09/10/17 12:20 Trimethoprim/ Sulfamethoxazole (Bactrim Ds 800-160 Mg) 1 tab MoWeFr@0900 PO 09/08/17 09:00 09/10/17 09:12 Ciprofloxacin (Cipro) 250 mg TuThSa@0900 PO 09/07/17 13:00 09/11/17 09:11 Alprazolam (Xanax) 0.5 mg TID PRN PO ANXIETY 09/07/17 20:30 09/11/17 09:11 Oxycodone HCl (Roxicodone) 5 mg Q6H PRN PO PAIN SCALE 1 TO 10 09/07/17 20:30 09/11/17 09:11 Objective Remarks GENERAL: Obese young male sitting in chair at bedside in no obvious distress SKIN: Warm and dry. HEAD: Normocephalic. EYES: No injection or drainage. NECK: Supple, trachea midline. No JVD or lymphadenopathy. CARDIOVASCULAR: Regular rate and rhythm without murmurs. RESPIRATORY: Breath sounds equal bilaterally. No accessory muscle use. GASTROINTESTINAL: Abdomen obese but soft, non-tender, nondistended. EXTREMITIES: No cyanosis, or edema. MUSCULOSKELETAL: Adequate muscle tone. NEUROLOGICAL: No obvious focal deficit. Awake, alert, and oriented x3. Assessment/Plan Assessment 27-year-old male with AML admitted for fourth and final consolidation chemotherapy Plan The patient is overall doing well so far with his fourth and final consolidation chemotherapy with HiDAC. The final cytarabine will start early this afternoon and and finish sometime early in the morning. We will check a CBC in the morning and pending no need for transfusion which I highly doubt, he will be discharged. He will follow-up in clinic next week with Dr. Santoyo. We expect that he will need supportive transfusions over the next couple of weeks. We discussed he will need to look out for any fevers once discharged. The patient has good cytogenetics and will likely stay in remission. Attending Statement The exam, history, and the medical decision-making described in the above note were completed with the assistance of the mid-level provider. I reviewed and agree with the findings presented. I attest that I had a [id number] encounter with the patient on the same day, and personally performed and documented my assessment and findings in the medical record. doing well and counts are excellent. can go home tomorrow and will take bactrim and cipro on discharge and follow up in clinic. prognosis excellent given cytogenetics. Robina Cui September 11, 2017 09:57 Talha Hernandez MD September 11, 2017 12:15
[2017-09-11 11:58] VITALS: BP 130/64; PULSE 85; RESP 16; TEMP 97.9; O2SAT 100
[2017-09-11] MEDS: GRANISETRON INJ 1 MG, DEXAMETHASONE INJ 20 MG in SODIUM CHLORIDE 0.9% INJ 50 ML IV SCH (12:33)
[2017-09-11] MEDS: SODIUM CHLOR 0.9% IV SCH (13:40)
[2017-09-11] MEDS: CYTARABINE IV SCH (13:40)
[2017-09-11 17:08] VITALS: BP 121/58; PULSE 78; RESP 18; TEMP 98.5; O2SAT 100
[2017-09-11 21:00] VITALS: BP 124/54; PULSE 66; RESP 18; TEMP 97.9; O2SAT 99
[2017-09-12 00:05] VITALS: BP 138/57; PULSE 63; RESP 18; TEMP 98; O2SAT 98
[2017-09-12] MEDS: CYTARABINE IV SCH (01:07)
[2017-09-12] MEDS: SODIUM CHLOR 0.9% IV SCH (01:07)
[2017-09-12 04:00] VITALS: BP 138/70; PULSE 65; RESP 18; TEMP 98; O2SAT 98
[2017-09-12 07:55] VITALS: BP 158/63; PULSE 83; RESP 18; TEMP 97.5; O2SAT 98
[2017-09-12] MEDS ORDERED: SULF1TAB23 PO (08:24)
[2017-09-12] MEDS ORDERED: CIPR250T52 PO (08:24)
--- NOTE | 2017-09-12 08:24 | HHI.DCPOC ---
Discharge Care Plan Diagnosis: (1) AML (acute myelogenous leukemia) Goals to Promote Your Health * To prevent worsening of your condition and complications * To maintain your health at the optimal level Directions to Meet Your Goals Take your medications as prescribed Follow your dietary instruction Follow activity as directed Keep your appointments as scheduled Take your immunizations and boosters as scheduled If your symptoms worsen call your PCP, if no PCP go to Urgent Care Center or Emergency Room Smoking is Dangerous to Your Health. Avoid second hand smoke Call the 24-hour hour crisis hotline for domestic abuse at Robina Cui September 12, 2017 08:24
--- NOTE | 2017-09-12 08:32 | HHI.DS ---
Discharge Summary Admission Date September 07, 2017 at 10:51 Discharge Date: September 12, 2017 Admitting Diagnosis AML Brief History Pt was originally diagnosed with acute myelogenous leukemia in the fall of 2016. He was given 7+3 induction chemotherapy. He achieved complete remission. He received 3 cycles of HiDAC chemotherapy for consolidation purposes prior to this admission. His treatment course has been complicated with febrile neutropenia and frequent infections. He was admitted for his fourth and final consolidation chemotherapy this admission. CBC/BMP: 09/11/17 0420 09/11/17 0420 Significant Findings Laboratory Tests Test 09/10/17 05:00 09/11/17 04:20 Red Blood Count 3.67 MIL/MM3 (4.50-5.90) 3.63 MIL/MM3 (4.50-5.90) Hemoglobin 11.2 GM/DL (13.0-17.0) 11.0 GM/DL (13.0-17.0) Hematocrit 34.3 % (39.0-51.0) 33.6 % (39.0-51.0) Red Cell Distribution Width 18.1 % (11.6-17.2) 18.3 % (11.6-17.2) Neutrophils (%) (Auto) 96.2 % (16.0-70.0) 97.1 % (16.0-70.0) Lymphocytes (%) (Auto) 2.4 % (9.0-44.0) 2.3 % (9.0-44.0) Neutrophils # (Auto) 9.9 TH/MM3 (1.8-7.7) 8.2 TH/MM3 (1.8-7.7) Lymphocytes # (Auto) 0.2 TH/MM3 (1.0-4.8) 0.2 TH/MM3 (1.0-4.8) Random Glucose 156 MG/DL (74-106) 123 MG/DL (74-106) PE at Discharge See progress note dated 09/12/17 Hospital Course The patient was admitted on September 07. He was given day #1 of HiDAC chemo. This regimen is given on the first, third and fifth days. He received his final dose late yesterday afternoon which finished sometime early this morning. The patient tolerated the chemotherapy regimen quite well this cycle. His blood counts have been stable. We will plan to have him follow-up in the clinic on this week to repeat blood work. Pt Condition on Discharge: Good Discharge Disposition: Discharge Home Discharge Instructions DIET: Follow Instructions for: As Tolerated, No Restrictions Activities you can perform: Regular-No Restrictions Robina Cui September 12, 2017 08:32
--- NOTE | 2017-09-12 08:51 | PD.ONC.PN ---
Subjective Subjective Remarks Afebrile Patient feels good, ready to go home No acute complaints Plans to follow-up in clinic later this week for labs Objective Data Date Time Temp Pulse Resp B/P (MAP) Pulse Ox O2 Delivery O2 Flow Rate FiO2 09/12/17 07:55 97.5 83 18 158/63 (94) 98 09/12/17 04:00 98.0 65 18 138/70 (92) 98 09/12/17 00:05 98.0 63 18 138/57 (84) 98 09/11/17 21:00 97.9 66 18 124/54 (77) 99 09/11/17 17:08 98.5 78 18 121/58 (79) 100 09/11/17 11:58 97.9 85 16 130/64 (86) 100 09/11/17 09:12 97.6 62 16 153/62 (92) 100 09/12/17 09/12/17 09/12/17 07:00 15:00 23:00 Intake Total 730 ml Output Total 1700 ml Balance -970 ml Result Diagram: 09/11/17 0420 09/11/17 0420 Administered Medications Medications (Trade) Dose Ordered Sig/Emma Route PRN Reason Start Time Stop Time Status Last Admin Dose Admin Dexamethasone Sodium Phosphate (Decadron Opth 0.1% Soln) 2 drop QID EACH EYE 09/07/17 11:00 09/14/17 09:01 09/11/17 22:42 Sodium Chloride 1,000 ml @ 75 mls/hr [id number] IV 09/07/17 11:00 09/11/17 18:19 Trimethoprim/ Sulfamethoxazole (Bactrim Ds 800-160 Mg) 1 tab MoWeFr@0900 PO 09/08/17 09:00 09/10/17 09:12 Ciprofloxacin (Cipro) 250 mg TuThSa@0900 PO 09/07/17 13:00 09/11/17 09:11 Alprazolam (Xanax) 0.5 mg TID PRN PO ANXIETY 09/07/17 20:30 09/11/17 18:18 Oxycodone HCl (Roxicodone) 5 mg Q6H PRN PO PAIN SCALE 1 TO 10 09/07/17 20:30 09/11/17 18:18 Objective Remarks GENERAL: Obese young male resting in bed in no obvious distress SKIN: Warm and dry. HEAD: Normocephalic. EYES: No injection or drainage. NECK: Supple, trachea midline. No JVD or lymphadenopathy. CARDIOVASCULAR: Regular rate and rhythm without murmurs. RESPIRATORY: Breath sounds equal bilaterally. No accessory muscle use. GASTROINTESTINAL: Abdomen obese but soft, non-tender, nondistended. EXTREMITIES: No cyanosis, or edema. MUSCULOSKELETAL: Adequate muscle tone. NEUROLOGICAL: No obvious focal deficit. Awake, alert, and oriented x3. Assessment/Plan Problem List: (1) AML (acute myelogenous leukemia) ICD Codes: C92.00 - Acute myeloblastic leukemia, not having achieved remission Status: Chronic Plan: Hx/Workup:Patient was originally diagnosed in the fall 2016 and treated with 7+3 induction chemotherapy. He is status post 3 cycles of HiDAC chemo for consolidation. He was found to be FLT3 negative as well as negative for the KIT mutation. He has good risk acute leukemia with inversion 16. His course unfortunately was complicated by frequent admissions due to febrile neutropenia --Pt admitted for his 4th and final consolidation chemotherapy with high-dose [id number]. --We will continue his Bactrim Wednesday with Cipro on Wednesday for prophylaxis Assessment 27-year-old male with AML admitted for fourth and final consolidation chemotherapy Plan Patient has tolerated his fourth and final consolidation chemotherapy with HiDAC very well. We will discharge him and let him go today. He will follow- up in clinic later this week for labs as we do expect his counts to deborah in the next few days. It is likely that he will need some supportive transfusions. I have also instructed him to continue to take his eyedrops for the next 2 days after the chemotherapy. Robina Cui September 12, 2017 08:51
[2017-09-12] MEDS: DEXAMETHASONE SOD PHOS 0.1% OPHT SOLN 5 ML BTL EACH EYE SCH (09:00)
== END 2017-09-12 10:10 | disposition home or self-care (01) | DRG 838 ==
LOC: HCIN 09:28 → HCIS 09:51 → HCIN 09:53 → OBSVTOIN 10:51
PROVIDERS: ADMIT Internal Medicine; ATTEND Internal Medicine
DX: Z51.11 Encounter for antineoplastic chemotherapy (principal); C92.00 Acute myeloblastic leukemia, not having achieved remission; Z68.42 Body mass index [BMI] 45.0-49.9, adult; E66.01 Morbid (severe) obesity due to excess calories; F41.9 Anxiety disorder, unspecified; K21.9 Gastro-esophageal reflux disease without esophagitis; Z92.21 Personal history of antineoplastic chemotherapy; Z91.19 Patient's noncompliance with other medical treatment and regimen
CPT/HCPCS: 80048; 80053; 83735; 84100; 85025; J1100; J1626; J7030; J7050; J9100